=== PATIENT | female | born 1965 | race Caucasian/White ===

== ENCOUNTER 2020-08-26 16:40 | Emergency (ER) | payer BC, OTHER ==
[2020-08-26 17:30] LABS: Absolute Lymphocytes (CBC) 1.8 K/uL (0.7-4.9); Basophils % 0.8 % (0-1.3); Hematocrit 40.5 % (36.0-45.0); Lymphocytes % 38.2 % (15.3-44.8); RBC Red Blood Cell Count 4.45 M/uL (3.86-4.86)
[2020-08-26 17:47] LABS: Albumin 4.1 g/dL (3.4-5.0); Bilirubin Direct 0.2 mg/dL (0-0.2); Bilirubin Total 0.7 mg/dL (0.2-1.0); Potassium 3.9 mmol/L (3.5-5.1); Protein, Total 8.2 g/dL (6.4-8.2)
[2020-08-26 17:58] LABS: Urine Blood NEGATIVE (NEG); Urine Glucose NEGATIVE (NEG); Urine Protein NEGATIVE (NEG); Urine pH 6.5 (5.0-7.0)
[2020-08-26] MEDS ORDERED: MEPERIDINE HCL 50 MG/ML ONE (18:28)
--- NOTE | 2020-08-26 18:41 | RAD REPORT ---
EXAM DESCRIPTION: CT - Stone Protocol - 08/26/2020 6:14 pm CLINICAL HISTORY: left flank pain COMPARISON: No comparisons TECHNIQUE: Axial 3 mm thick images were obtained without oral or IV contrast. The [id number] span s the entirety of the system including uppermost abdomen and lung bases. All CT scans are performed using dose optimization technique as appropriate and may include automated exposure control or mA/KV adjustment according to patient size. FINDINGS: No hydronephrosis is present and no obstructing ureteral calculi. No suspicious renal mass es. Isodense masses and pyelonephritis are not excluded on a stone protocol CT scan. No significant a drenal finding. No urinary bladder suspicious finding. Uterus and ovaries show no suspicious findings . Imaged portions of the liver, spleen and pancreas show no suspicious findings on non-contrast imaging . No gallbladder or biliary tree abnormality identified. No suspicious bowel findings. Appendix is normal. No acute bowel finding. No mass or bulky lymphadenopathy. Trans flap abdominal wall postsurgical changes are noted. There is laxity in each lower quadrant. No abdominal wall defect confirmed. No free air, free fluid or inflamm atory stranding. Disc and bone degenerative changes are present. No acute vascular finding suspected. IMPRESSION: No hydronephrosis, obstructing calculus or acute finding. Isodense masses and pyelonephritis are not excluded on stone protocol technique. No acute GI process identified. No acute ELECTRONIC ORGAN MECHANIC finding. Disc and bone degenerative changes are present relatively mild. No acute bone or disc finding suspect ed.
--- NOTE | 2020-08-26 18:48 | ER ---
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 Coronavirus screen: At this time, the client does not indicate any symptoms associated with coronavirus-19. The client reports previous COVID testing was negative. Date of collection: August 25, 2020. Initial Sepsis Screen: Does the patient meet any 2 criteria? No. Patient's initial sepsis screen is negative. Does the patient have a suspected source of infection? No. Patient's initial sepsis screen is negative. Risk Assessment: Do you want to hurt yourself or someone else? Patient reports no desire to harm self or others. 17:02 Method Of Arrival: Ambulatory iw 17:02 Acuity: JOSHUA 3 iw 17:05 Ebola Screen: No symptoms or risks identified at this time. Onset of symptoms is bp unknown. Triage Assessment: 17:10 General: Appears in no apparent distress. uncomfortable, Behavior is cooperative, bp appropriate for age, anxious. Pain: Complains of pain in left mid back. EENT: No deficits noted. Neuro: No deficits noted. Cardiovascular: No deficits noted. Respiratory: No deficits noted. GI: No signs and/or symptoms were reported involving the gastrointestinal system. : Reports pain in left flank(s). Derm: No deficits noted. Musculoskeletal: No deficits noted. Historical: - PMHx: 17:39 Cancer; bp - Immunization history:: Adult Immunizations unknown. - Social history:: Smoking status: Patient denies any tobacco usage or history of. - Family history:: not pertinent. - Hospitalizations: : No recent hospitalization is reported. Screenin:10 Abuse screen: Denies threats or abuse. Denies injuries from another. Nutritional bp screening: No deficits noted. Tuberculosis screening: No symptoms or risk factors identified. Fall Risk None identified. Assessment: 17:10 General: SEE TRIAGE NOTE. bp 17:10 Reassessment: No changes from previously documented assessment. Patient is alert, bp oriented x 3, equal unlabored respirations, skin warm/dry/pink. 18:21 Reassessment: Patient appears in no apparent distress at this time. No changes from bp previously documented assessment. PT RETURNED FROM CT. 18:57 Reassessment: PT D/C HOME AMBULATORY, DX WITH UNSPECIFIED ABDOMINAL PAIN. bp Vital Signs: 17:02 BP 152 / 77; Pulse 78; Resp 16; Temp 97.9; Pulse Ox 100% on R/A; Weight 70.31 kg; iw Height 5 ft. 2 in. (157.48 cm); Pain 10/10; 18:21 BP 142 / 88; Pulse 71; Resp 16; Pulse Ox 99% ; bp 18:57 BP 133 / 81; Pulse 82; Resp 16; Temp 98; Pulse Ox 99% ; bp 17:02 Body Mass Index 28.35 (70.31 kg, 157.48 cm) iw ED Course: 16:42 Patient arrived in ED. as 16:56 Inocencio Aguirre MD is Attending Physician. rn 17:05 Ramsey Younger, VITOR is Primary Nurse. bp 17:07 Triage completed. iw 17:07 Arm band placed on. iw 17:10 Patient has correct armband on for positive identification. Bed in low position. Call bp light in reach. Side rails up X2. 17:10 Inserted saline lock: 22 gauge in left antecubital area, using aseptic technique. Blood bp collected. 18:15 CT Stone Protocol In Process Unspecified. EDMS 18:57 No provider procedures requiring assistance completed. IV discontinued, intact, bp bleeding controlled, No redness/swelling at site. Pressure dressing applied. Administered Medications: 18:20 Drug: Demerol 25 mg Route: IVP; Site: left antecubital; bp 18:59 Follow up: Response: Pain is decreased bp Outcome: 18:47 Discharge ordered by . rn 18:57 Discharged to home ambulatory. bp 18:57 Condition: stable 18:57 Discharge instructions given to patient, Instructed on discharge instructions, follow up and referral plans. Demonstrated understanding of instructions, follow-up care. 19:00 Patient left the ED. bp Signatures: Dispatcher [employer] EDMS Paola Franklin Irene RN RN iw Inocencio Aguirre MD MD rn Peltier, Brian, RN RN bp
--- NOTE | 2020-08-26 18:48 | EDPHYS ---
Physician Documentation [facility] Name: Arlene Lane Age: 54 yrs Sex: Female : 1965 Arrival Date: 08/26/2020 Time: 16:42 Bed 6 Private MD: ED Physician Inocencio Aguirre HPI: 08/26 17:12 This 54 yrs old Female presents to ER via Ambulatory with complaints of Flank rn Pain. 17:12 This 54 yrs old Female presents to ER via Ambulatory with complaints of Flank rn Pain. 17:12 The patient complains of pain in the left mid back. Onset: The symptoms/episode rn began/occurred this morning. Modifying factors: The symptoms are alleviated by nothing. the symptoms are aggravated by nothing. Severity of pain: At its worst the pain was moderate in the emergency department the pain is unchanged. The patient has not experienced similar symptoms in the past. Reports left flank and abd pain assoc with diarrhea, recently treated for UTI, finished abx, began today after going to gym and mowing yard. No fever. No direct trauma. Does not feel like it is muscular. . Historical: - PMHx: 17:39 Cancer; bp - Immunization history:: Adult Immunizations unknown. - Social history:: Smoking status: Patient denies any tobacco usage or history of. - Family history:: not pertinent. - Hospitalizations: : No recent hospitalization is reported. ROS: 17:12 Constitutional: Negative for fever, chills, and weight loss, Cardiovascular: Negative rn for chest pain, palpitations, and edema, Respiratory: Negative for shortness of breath, cough, wheezing, and pleuritic chest pain, Abdomen/GI: + left abd and flank pain Back: Negative for injury : Negative for injury, bleeding, discharge, and swelling, MS/Extremity: Negative for injury and deformity, Skin: Negative for injury, rash, and discoloration, Neuro: Negative for headache, weakness, numbness, tingling, and seizure. Exam: 17:12 Constitutional: This is a well developed, well nourished patient who is awake, alert, rn and in no acute distress. Ambulatory to room without difficulty. Head/Face: Normocephalic, atraumatic. Cardiovascular: Regular rate and rhythm. No pulse deficits. Respiratory: Speaking full sentences. No increased work of breathing, no retractions or nasal flaring. Abdomen/GI: soft, non-tender, no masses, non-distended Skin: Warm, dry MS/ Extremity: Pulses equal, no cyanosis. Neurovascular intact. Full, normal range of motion. Equal circumference. Neuro: Awake and alert, GCS 15, oriented to person, place, time, and situation. Cranial nerves II-XII grossly intact. Motor strength 5/5 in all extremities. Sensory grossly intact. Cerebellar exam normal. Normal gait. Vital Signs: 17:02 BP 152 / 77; Pulse 78; Resp 16; Temp 97.9; Pulse Ox 100% on R/A; Weight 70.31 kg; iw Height 5 ft. 2 in. (157.48 cm); Pain 10/10; 18:21 BP 142 / 88; Pulse 71; Resp 16; Pulse Ox 99% ; bp 18:57 BP 133 / 81; Pulse 82; Resp 16; Temp 98; Pulse Ox 99% ; bp 17:02 Body Mass Index 28.35 (70.31 kg, 157.48 cm) iw MDM: 16:56 Patient medically screened. rn 18:45 Differential diagnosis: nephrolithiasis, pyelonephritis, UTI, kidney stone, muscular rn pain, constipation. Data reviewed: vital signs, nurses notes, lab test result(s), radiologic studies, CT scan, and as a result, I will discharge patient. Counseling: I had a detailed discussion with the patient and/or guardian regarding: the historical points, exam findings, and any diagnostic results supporting the discharge/admit diagnosis, lab results, radiology results, the need for outpatient follow up, to return to the emergency department if symptoms worsen or persist or if there are any questions or concerns that arise at home. Response to treatment: the patient's symptoms have mildly improved after treatment, and as a result, I will discharge patient. Special discussion: Based on the patient's Hx, exam, and Dx evaluation, there is no indication for emergent surgery or inpatient Tx. It is understood by the patient/guardian that if the Sx's persist or worsen they need to return immediately for re-evaluation. I discussed with the patient/guardian in detail that at this point there is no indication for admission to the hospital. It is understood, however, that if the symptoms persist or worsen the patient needs to return immediately for re-evaluation. ED course: No acute findings in ct abdomen/blood/UA. Will dc home with return precautions. . 08/26 17:11 Order name: Urine Dipstick--Ancillary (enter results); Complete Time: 18:01 eb 08/26 17:12 Order name: Basic Metabolic Panel; Complete Time: 18:01 rn 08/26 17:12 Order name: CBC with Diff; Complete Time: 17:46 rn 08/26 17:12 Order name: Hepatic Function; Complete Time: 18:01 rn 08/26 17:12 Order name: Lipase; Complete Time: 18:01 rn 08/26 17:12 Order name: CT Stone Protocol; Complete Time: 18:43 rn 08/26 17:12 Order name: IV Saline Lock; Complete Time: 17:36 rn 08/26 17:12 Order name: Labs collected and sent; Complete Time: 17:36 rn Administered Medications: 18:20 Drug: Demerol 25 mg Route: IVP; Site: left antecubital; bp 18:59 Follow up: Response: Pain is decreased bp Disposition: 08/26/20 18:47 Discharged to Home. Impression: Unspecified abdominal pain. - Condition is Stable. - Discharge Instructions: Abdominal Pain, Adult, Pain Without a Known Cause. - Medication Reconciliation Form, Thank You Letter, Antibiotic Education, Prescription Opioid Use form. - Follow up: Private Physician; When: As needed; Reason: Recheck today's complaints, Re-evaluation by your physician. - Problem is new. - Symptoms have improved. Signatures: Dispatcher [employer] EDMS Inocencio Aguirre MD MD rn Peltier, Brian, RN RN bp Corrections: (The following items were deleted from the chart) 18:46 17:12 Constitutional: This is a well developed, well nourished patient who is awake, rn alert, and in no acute distress. Ambulatory to room without difficulty. Head/Face: Normocephalic, atraumatic. Cardiovascular: Regular rate and rhythm. No pulse deficits. Respiratory: Speaking full sentences. No increased work of breathing, no retractions or nasal flaring. Abdomen/GI: soft, non-tender, no masses, non-distended Skin: Warm, dry MS/ Extremity: Pulses equal, no cyanosis. Neurovascular intact. Full, normal range of motion. Equal circumference. Neuro: Awake and alert, GCS 15, oriented to person, place, time, and situation. Cranial nerves II-XII grossly intact. Motor strength 5/5 in all extremities. Sensory grossly intact. Cerebellar exam normal. Normal gait. rn 19:00 18:47 08/26/2020 18:47 Discharged to Home. Impression: Unspecified abdominal pain. bp Condition is Stable. Forms are Medication Reconciliation Form, Thank You Letter, Antibiotic Education, Prescription Opioid Use. Follow up: Private Physician; When: As needed; Reason: Recheck today's complaints, Re-evaluation by your physician. Problem is new. Symptoms have improved. rn
[2020-08-26 19:08] VITALS: O2SAT 99
[2020-08-26 19:09] VITALS: BP 133/81; TEMP 98
== END 2020-08-26 19:00 | disposition home or self-care (01) ==
LOC: ER 16:40
DX: R10.9 Unspecified abdominal pain (principal); Z85.9 Personal history of malignant neoplasm, unspecified
CPT/HCPCS: 85025; 80048; 36415; 80076; 81003; 83690; 76377; 74176; 96374; 99284; J2175

== ENCOUNTER 2021-08-02 11:31 | Observation (INO) | payer OTHER ==
[2021-08-02 12:09] LABS: Absolute Lymphocytes (CBC) 1.7 K/uL (0.7-4.9); Basophils % 0.6 % (0-1.3); Hematocrit 39.2 % (36.0-45.0); Lymphocytes % 45.2 % (15.3-44.8); MPV 7.2 fL (7.6-11.3); RBC Red Blood Cell Count 4.23 M/uL (3.86-4.86)
[2021-08-02 12:34] LABS: ALT/SGPT 31 U/L (12-78); AST/SGOT 25 U/L (15-37); Albumin 4.3 g/dL (3.4-5.0); Alkaline Phosphatase 93 U/L (45-117); BUN Blood Urea Nitrogen 12 mg/dL (7-18); Bicarbonate 28 mmol/L (21-32); Bilirubin Direct 0.1 mg/dL (0-0.2); Bilirubin Total 0.7 mg/dL (0.2-1.0); Glucose Level 97 mg/dL (74-106); Magnesium 2.1 mg/dL (1.8-2.4); NT PRO-BNP 24 pg/mL (<125); Potassium 4.2 mmol/L (3.5-5.1); Protein, Total 8.3 g/dL (6.4-8.2); Sodium Level 140 mmol/L (136-145); Troponin (Emerg Dept Use Only) < 0.02 ng/mL (0.0-0.045)
[2021-08-02] MEDS ORDERED: ONDANSETRON 4 MG/2 ML VIAL ONE (12:46)
[2021-08-02] MEDS ORDERED: ASPIRIN 81 MG CHEWABLE TABLET ONE (12:46)
--- NOTE | 2021-08-02 12:51 | ER ---
Nurse's Notes [facility] Name: Arlene Lane Age: 55 yrs Sex: Female : 1965 Arrival Date: 08/02/2021 Time: 11:32 Bed 15 Private MD: Diagnosis: Chest pain, unspecified Presentation: 08/02 11:34 Chief complaint: Patient states: "I am having chest pain and my BP was high.". jd3 Coronavirus screen: At this time, the client does not indicate any symptoms associated with coronavirus-19. Ebola Screen: Patient negative for fever greater than or equal to 101.5 degrees Fahrenheit, and additional compatible Ebola Virus Disease symptoms. Initial Sepsis Screen: Does the patient meet any 2 criteria? No. Patient's initial sepsis screen is negative. Does the patient have a suspected source of infection? No. Patient's initial sepsis screen is negative. Risk Assessment: Do you want to hurt yourself or someone else? Patient reports no desire to harm self or others. Onset of symptoms was August 02, 2021. 11:34 Method Of Arrival: Wheelchair jd3 11:34 Acuity: JOSHUA 3 jd3 Historical: - Allergies: 11:35 No Known Allergies; jd3 - Home Meds: 11:35 [place] Thyroid Oral [Active]; Xanax Oral [Active]; jd3 - PMHx: 11:35 Cancer; jd3 - PSHx: 11:35 FRANCY mesectomy; jd3 - Immunization history:: Adult Immunizations Client reports receiving the 2nd dose of the Covid vaccine, Date received: December 13, 2020. - Social history:: Smoking status: Patient denies any tobacco usage or history of. Screenin:47 Abuse screen: Denies threats or abuse. Denies injuries from another. Nutritional aj2 screening: No deficits noted. Tuberculosis screening: No symptoms or risk factors identified. Fall Risk None identified. Assessment: 12:47 Reassessment: Patient appears in no apparent distress at this time. Patient and/or aj2 family updated on plan of care and expected duration. Pain level reassessed. Patient is alert, oriented x 3, equal unlabored respirations, skin warm/dry/pink. 12:47 Pain: Complains of pain in anterior aspect of right upper chest Pain radiates to right aj2 jaw Pain began 1 week ago. Cardiovascular: Rhythm is sinus rhythm. Vital Signs: 11:36 BP 158 / 84; Pulse 89; Resp 17 S; Temp 98.6(TE); Pulse Ox 100% on R/A; Weight 68.04 kg jd3 (R); Height 5 ft. 2 in. (157.48 cm) (R); Pain 9/10; 12:47 BP 137 / 83; Pulse 82; Resp 16; Temp 98.6; Pulse Ox 100% ; aj2 11:36 Body Mass Index 27.44 (68.04 kg, 157.48 cm) jd3 ED Course: 11:32 Patient arrived in ED. as 11:35 Triage completed. jd3 11:36 Arm band placed on. jd3 11:52 Sierra [facility] kb 11:52 Tong Galicia MD is Attending Physician. kb 12:00 Initial lab(s) drawn, by me, sent to lab. Inserted saline lock: 20 gauge in left kj1 antecubital area, using aseptic technique. Blood collected. 12:19 Aaron Mayo is Primary Nurse. aj2 12:47 No apparent distress. Resting quietly. Texting on cell phone. aj2 12:47 Patient has correct armband on for positive identification. sports physician on. Pulse aj2 ox on. NIBP on. 12:47 No provider procedures requiring assistance completed. IV is patent, is intact. Patient aj2 maintains SpO2 saturation greater than 95% on room air. 12:50 Courtney Merritt MD is Hospitalizing Provider. kb 13:01 XRAY Chest (1 view) In Process Unspecified. EDMS 13:25 COVID-19 : Document "Date of Symptom Onset" if Symptomatic. Sent. aj2 Administered Medications: 12:27 Drug: Aspirin Chewable Tablet 324 mg Route: PO; kg 12:27 Drug: Zofran (Ondansetron) 4 mg Route: IVP; Site: left antecubital; kg 13:25 Drug: morphine 4 mg Route: IVP; Site: left antecubital; aj2 Outcome: 12:50 Decision to Hospitalize by Provider. kb 21:26 Patient left the ED. jb4 Signatures: Dispatcher [employer] EDMS Sierra Weber FNP-C FNP-Ckb Martinez, Amelia as Bryson, James RN RN jb4 Abhi Lau RN RN jd3 Tuyet Weber kj1 Jasmin Wilder, RN RN kg Aaron Mayo
--- NOTE | 2021-08-02 12:51 | EDPHYS ---
Physician Documentation [facility] Name: Arlene Lane Age: 55 yrs Sex: Female : 1965 Arrival Date: 08/02/2021 Time: 11:32 Bed 15 Private MD: ED Physician Tong Galicia HPI: 08/02 12:51 This 55 yrs old Female presents to ER via Wheelchair with complaints of Chest kb Pain, High Blood Pressure. 12:51 The patient or guardian reports chest pain that is located primarily in the substernal kb area. Onset: 4 day(s) ago. The pain does not radiate. Associated signs and symptoms: Pertinent positives: nausea. The chest pain is described as aching. Duration: The patient or guardian reports a single episode. Modifying factors: The symptoms are alleviated by nothing. the symptoms are aggravated by nothing. Severity of pain: At its worst the pain was moderate in the emergency department the pain is unchanged. The patient has not experienced similar symptoms in the past. The patient has not recently seen a physician. Pt reports she noticed some chest pain on Friday and Friday. Today pain became severe while at work. States she checked her BP and it was 202/180. . Historical: - Allergies: 11:35 No Known Allergies; jd3 - Home Meds: 11:35 [place] Thyroid Oral [Active]; Xanax Oral [Active]; jd3 - PMHx: 11:35 Cancer; jd3 - PSHx: 11:35 FRANCY mesectomy; jd3 - Immunization history:: Adult Immunizations Client reports receiving the 2nd dose of the Covid vaccine, Date received: December 13, 2020. - Social history:: Smoking status: Patient denies any tobacco usage or history of. ROS: 12:50 Constitutional: Negative for fever, chills, and weight loss. kb 12:50 Cardiovascular: Positive for chest pain, Negative for edema, orthopnea, palpitations, paroxysmal nocturnal dyspnea. 12:50 All other systems are negative. 12:51 Abdomen/GI: Positive for nausea. kb Exam: 12:00 Constitutional: This is a well developed, well nourished patient who is awake, alert, kb and in no acute distress. Head/Face: Normocephalic, atraumatic. ENT: Moist Mucous membranes Cardiovascular: Regular rate and rhythm with a normal S1 and S2. No gallops, murmurs, or rubs. No pulse deficits. Respiratory: Respirations even and unlabored. No increased work of breathing, no retractions or nasal flaring. Skin: Warm, dry with normal turgor. Normal color. MS/ Extremity: Pulses equal, no cyanosis. Neurovascular intact. Full, normal range of motion. Neuro: Awake and alert, GCS 15, oriented to person, place, time, and situation. Moves all extremities. Normal gait. Psych: Awake, alert, with orientation to person, place and time. Behavior, mood, and affect are within normal limits. 12:00 ECG was reviewed by the Attending Physician. Vital Signs: 11:36 BP 158 / 84; Pulse 89; Resp 17 S; Temp 98.6(TE); Pulse Ox 100% on R/A; Weight 68.04 kg jd3 (R); Height 5 ft. 2 in. (157.48 cm) (R); Pain 9/10; 12:47 BP 137 / 83; Pulse 82; Resp 16; Temp 98.6; Pulse Ox 100% ; aj2 11:36 Body Mass Index 27.44 (68.04 kg, 157.48 cm) jd3 MDM: 11:52 Patient medically screened. kb 12:00 Data reviewed: vital signs, nurses notes. Data interpreted: Pulse oximetry: on room air kb is 100 %. Interpretation: normal. 12:49 Counseling: I had a detailed discussion with the patient and/or guardian regarding: the kb historical points, exam findings, and any diagnostic results supporting the discharge/admit diagnosis, lab results, radiology results, the need for further work-up and treatment in the hospital. Physician consultation: Luis Armando Shields was contacted at 12:50, regarding admission, to the telemetry unit. patient's condition, and will see patient in ED, shortly. 08/02 11:41 Order name: Basic Metabolic Panel; Complete Time: 12:37 kb 08/02 11:41 Order name: CBC with Diff; Complete Time: 12:31 kb 08/02 11:41 Order name: LFT's; Complete Time: 12:37 kb 08/02 11:41 Order name: Magnesium; Complete Time: 12:37 kb 08/02 11:41 Order name: NT PRO-BNP; Complete Time: 12:37 kb 08/02 11:41 Order name: PT-INR; Complete Time: 12:31 kb 08/02 11:41 Order name: Troponin (emerg Dept Use Only); Complete Time: 12:37 kb 08/02 11:41 Order name: XRAY Chest (1 view); Complete Time: 13:23 kb 08/02 12:59 Order name: COVID-19 : Document "Date of Symptom Onset" if Symptomatic. kb 08/02 15:32 Order name: SARS-COV-2 RT PCR; Complete Time: 15:42 EDMS 08/02 15:56 Order name: T4 Free; Complete Time: 16:47 EDMS 08/02 15:56 Order name: Thyroid Stimulating Hormone; Complete Time: 16:47 EDMS 08/02 19:13 Order name: Troponin I EDKS 08/02 11:41 Order name: EKG; Complete Time: 11:42 kb 08/02 11:41 Order name: Cardiac monitoring; Complete Time: 12:04 kb 08/02 11:41 Order name: EKG - Nurse/Tech; Complete Time: 12:04 kb 08/02 11:41 Order name: IV Saline Lock; Complete Time: 12:04 kb 08/02 11:41 Order name: Labs collected and sent; Complete Time: 12:04 kb 08/02 11:41 Order name: O2 Per Protocol; Complete Time: 12:05 kb 08/02 11:41 Order name: O2 Sat Monitoring; Complete Time: 12:05 kb EC:00 Rate is 79 beats/min. Rhythm is regular. QRS Viola is Normal. IL interval is normal at kb 164 msec. QRS interval is normal at 80 msec. QT interval is normal at 392 msec. Administered Medications: 12:27 Drug: Aspirin Chewable Tablet 324 mg Route: PO; kg 12:27 Drug: Zofran (Ondansetron) 4 mg Route: IVP; Site: left antecubital; kg 13:25 Drug: morphine 4 mg Route: IVP; Site: left antecubital; aj2 Disposition: 08/03 07:13 Co-signature as Attending Physician, Tong Galicia MD I agree with the assessment and kdr plan of care. Disposition Summary: 08/02/21 12:50 Hospitalization Ordered Hospitalization Status: Observation kb Provider: Courtney Merritt Condition: Stable kb Problem: new kb Symptoms: are unchanged kb Bed/Room Type: Standard kb Location: Telemetry/MedSurg (observation)(08/02/21 20:52) tl1 Room Assignment: 211(08/02/21 20:52) tl1 Diagnosis - Chest pain, unspecified kb Forms: - Medication Reconciliation Form kb - SBAR form kb Signatures: Dispatcher [employer] EDSierra Powell, SUSANNAH-C GAMING HOST-Tong Jackson MD MD kdr Williams, Irene, RN RN iw Vanessa Sandoval RN RN tl1 Abhi Lau RN RN Jasmin Hassan RN RN Aaron Nguyễn 2 Corrections: (The following items were deleted from the chart) 08/02 14:06 12:50 Telemetry/MedSurg (observation) kb iw 14:06 12:50 kb iw 20:52 14:06 [facility] ER HOLD iw tl1 20:52 14:06 ERHOLD- iw tl1
--- NOTE | 2021-08-02 13:21 | RAD REPORT ---
EXAM DESCRIPTION: RAD - Chest Single View - 08/02/2021 1:01 pm CLINICAL HISTORY: CHEST PAIN Chest pain. COMPARISON: CHEST SINGLE VIEW dated 12/17/2013; CHEST SINGLE VIEW dated 08/02/2013; CHEST SINGLE VIEW d ated 10/08/2009 FINDINGS: Portable technique limits examination quality. The lungs are grossly clear. The heart is normal in size. No displaced fractures. IMPRESSION: No acute intrathoracic process suspected.
[2021-08-02] MEDS ORDERED: MORPHINE 4 MG/ML SYR ONE (13:54)
--- NOTE | 2021-08-02 13:58 | P.HP ---
Certification for Inpatient Patient admitted to: Inpatient With expected LOS: <2 Midnights Patient will require the following post-hospital care: None Practitioner: I am a practitioner with admitting privileges, knowledge of patient current condition, hospital course, and medical plan of care. Services: Services provided to patient in accordance with Admission requirements found in Title 42 Section 412.3 of the Code of Federal Regulations Patient History Date of Service: 08/02/21 Primary Care Provider: Dr. Tan Reason for admission: Hypertension and atypical Chest Pain History of Present Illness: EXAM DESCRIPTION: RAD - Chest Single View - 08/02/2021 1:01 pm CLINICAL HISTORY: CHEST PAIN Chest pain. COMPARISON: CHEST SINGLE VIEW dated 12/17/2013; CHEST SINGLE VIEW dated 08/02/2013; CHEST SINGLE VIEW dated 10/08/2009 FINDINGS: Portable technique limits examination quality. The lungs are grossly clear. The heart is normal in size. No displaced fractures. IMPRESSION: No acute intrathoracic process suspected. Is a 55-year-old female. She is cancer in 2012 with a bilateral mastectomy. And she was diagnosed with Covid earlier this month. She currently test negative. The patient had noticed some chest pain over the last 3 days which was sharp in nature lasting less than 2 minutes. She had 2-3 episodes per day for 3 days. Today she was at work when she noticed that she was having some pain in her chest that seem to be a little bit more severe. She checks her blood pressure twice at the facility that she works at the first time was 202/182 the second time it was 198/132. Because of the high blood pressure and the increasing chest pain she came to the emergency room. On arrival her vital signs have improved markedly and her chest pain has diminished. The chest pain is located in her right upper chest. The area of discomfort seems to be larger today than it was the last couple of days. The pain is unchanged by movement however it is exacerbated by palpation. Her labs are unremarkable her troponin and BNP are both negative, her EKG shows sinus rhythm. Home medications list reviewed: No - Past Medical/Surgical History Diabetic: No -: Breast cancer -: Hypothyroidism -: Anxiety/Insomnia -: Bilateral Mastectomy Psychosocial/ Personal History: Employed, lives at home with - Family History Father -: Heart disease Mother -: Heart disease Sister -: Hypertension - Social History Smoking Status: Never smoker Alcohol use: Yes CD- Drugs: No Caffeine use: Yes Place of Residence: Home Review of Systems General: Unremarkable Eyes: Unremarkable ENT: Unremarkable Respiratory: Unremarkable Cardiovascular: Chest Pain Gastrointestinal: Constipation Genitourinary: Unremarkable Musculoskeletal: Unremarkable Integumentary: Unremarkable Neurological: Unremarkable Lymphatics: Unremarkable Physical Examination - Physical Exam General: Alert, In no apparent distress, Oriented x3, Cooperative HEENT: Atraumatic, Normocephalic, PERRLA Neck: Supple Respiratory: Clear to auscultation bilaterally, Normal air movement Cardiovascular: Normal pulses, Regular rate/rhythm, Normal S1 S2 Capillary refill: <2 Seconds Gastrointestinal: Soft and benign, Non-distended, No tenderness Musculoskeletal: No clubbing, No swelling, No contractures, No erythema Integumentary: No rashes, No breakdown, No significant lesion, No tenderness/swelling Neurological: Normal speech, Normal strength at 5/5 x4 extr, Normal tone External genitalia: Deferred Rectal: Deferred - Studies Laboratory Data (last 24 hrs) 08/02/21 12:00: PT 11.5, INR 1.00 08/02/21 12:00: WBC 3.80 L, Hgb 13.3, Hct 39.2, Plt Count 262 08/02/21 12:00: Sodium 140, Potassium 4.2, BUN 12, Creatinine 0.58, Glucose 97, Magnesium 2.1, Total Bilirubin 0.7, AST 25, ALT 31, Alkaline Phosphatase 93 Assessment and Plan - Plan Assessment: Atypical Chest Pain Transient hypertension HypoThyroidism Constipation Insomnia Plan: Atypical Chest Pain: Trend Troponins, Cardiology consult, O2 prn, Mathias 7.5 prn for pain, Repeat EKG in AM. Transient hypertension: Monitor, hydralizine for increased pressure prn. HypoThyroidism: TSH, T4, [place] Thyroid 120mg Constipation: Stool [place] Insomnia: Xanax 0.25 QHS prn DVT PPx: Lovenox 40mg SQ CODE STATUS: Full Code Discharge Plan: Home Plan to discharge in: 48 Hours - Advance Directives Does patient have a Living Will: No Does patient have a Durable POA for Healthcare: No - Code Status/Comfort Care Code Status Assessed: Yes Code Status: Full Code Critical Care: No Time Spent Managing Pts Care (In Minutes): 55
[2021-08-02] MEDS ORDERED: HYDROCODONE/APAP 7.5/325 MG TAB PO PRN (14:17)
[2021-08-02] MEDS ORDERED: HYDRALAZINE HCL 20 MG/ML VIAL IV PRN (14:17)
[2021-08-02] MEDS ORDERED: ACETAMINOPHEN 500 MG TAB PO PRN (14:17)
[2021-08-02] MEDS ORDERED: DOCUSATE NA/SENNA CONC 1 TAB PO PRN (14:17)
[2021-08-02] MEDS ORDERED: ONDANSETRON 4 MG/2 ML VIAL IV PRN (14:17)
[2021-08-02] MEDS ORDERED: ALPRAZOLAM 0.25 MG TABLET PO PRN (14:17)
[2021-08-02] MEDS: ENOXAPARIN 40 MG/0.4 ML SQ SCH (15:00)
[2021-08-02 15:56] LABS: Thyroid Stimulating Hormone 0.235 uIU/mL (0.360-3.740)
[2021-08-02] MEDS ORDERED: ENOXAPARIN 40 MG/0.4 ML SQ ONE (16:59)
--- NOTE | 2021-08-02 17:59 | CON ---
Date of Consultation: 08/02/2021 Reason For Consultation: Chest pain. History Of Present Illness: This is a 55-year-old female, who has been having chest pain, sharp, sta bbing like, does not radiate, short-lived, and not related to exertion. When it first happened, she went to the gym after that and did elliptical training for 10 minutes and did some cardio workout and did not have any chest pain, but at rest at the office, she had significant chest pain. They matty t her into the emergency room. She feels well now and chest-pain free. Past Medical History: Breast cancer, hypothyroidism, anxiety. Medications: Refer to reconciliation sheet for detailed list. Allergies: NO KNOWN DRUG ALLERGIES. Past Surgical History: Mastectomy. Family History: No premature coronary artery disease or cancer. Social History: She does not smoke or drink. Does not use any drugs. Review of Systems: All systems reviewed and they were negative except what mentioned in the HPI. Physical Examination: Vital Signs: Temperature was 98.6, pulse 81, breathing at 16, blood pressure 116/74. General: Pleasant middle-aged female, in no apparent distress. Head and Neck: Pupils are equal, reactive to light. Intact eye movements. No JVD. No cervical lym phadenopathy. Neck: Supple. Thyroid is not enlarged. Lungs: Clear to auscultation bilaterally. No rhonchi, rales, or crackles. No accessory muscle use. Heart: Regular rate and rhythm. No extra sounds. Abdomen: Soft, nontender. Bowel sounds positive. No organomegaly. No masses or hernia. No rigidi ty or rebound. Extremities: No edema, clubbing, or cyanosis. Intact pulses. Skin: No rash noted. Neurologic: Alert, awake, oriented x3. No acute focal deficits appreciated. Investigations: First troponin is negative. Creatinine 0.58. Hemoglobin 13.3. EKG without acute s pecific abnormalities. Assessment And Recommendations: Chest pain. It is atypical. No significant EKG abnormalities. Fir st troponin is negative. If she has a second set that is negative, the patient can be released and f ollow up as an outpatient for exercise stress test and an echo. The patient was started on baby aspi rin 81 mg. Thank you for the consult. /IZZY Voice ID: [id number] Report ID: [id number]
[2021-08-02] MEDS ORDERED: HYDROCODONE/APAP 7.5/325 MG TAB ONE (21:35)
[2021-08-02] MEDS ORDERED: ALPRAZOLAM 0.25 MG TABLET ONE (21:35)
[2021-08-02 21:49] VITALS: BMI 27.4
[2021-08-03 05:45] LABS: Absolute Lymphocytes (CBC) 1.9 K/uL (0.7-4.9); Basophils % 0.6 % (0-1.3); Hematocrit 37.9 % (36.0-45.0); Lymphocytes % 42.3 % (15.3-44.8); MPV 7.5 fL (7.6-11.3); RBC Red Blood Cell Count 4.12 M/uL (3.86-4.86)
[2021-08-03 05:56] LABS: Albumin 3.6 g/dL (3.4-5.0); Bilirubin Total 0.5 mg/dL (0.2-1.0); Potassium 3.8 mmol/L (3.5-5.1); Protein, Total 7.2 g/dL (6.4-8.2)
[2021-08-03] MEDS ORDERED: THYROID 30 MG TAB PO SCH (06:00)
[2021-08-03] MEDS: ENOXAPARIN 40 MG/0.4 ML SQ SCH (08:08)
[2021-08-03 11:54] VITALS: O2SAT 98
[2021-08-03 12:25] VITALS: BP 137/72; TEMP 96.9
--- NOTE | 2021-08-03 15:44 | PN ---
Date of Progress Note: 08/03/2021 Subjective: Seen by bedside. She feels better. No active chest pain. Review of Systems: No active chest pain, shortness of breath, orthopnea, cough. No nausea, vomiting, diarrhea. No abdo joe pain. No dysuria, polyuria, and urinary urgency. All other systems reviewed and negative Objective: Vital Signs: Temperature is 96.9, pulse 77, breathing at 18, blood pressure is 137/72, s atting 98%. General: Pleasant middle-aged female, in no apparent distress. Head and Neck: Pupils are equal, reactive to light. Intact eye movements. No JVD. No cervical lym phadenopathy. Neck: Supple. Thyroid is not enlarged. Lungs: Clear to auscultation bilaterally. No rhonchi, rales, or crackles. No accessory muscle use. Heart: Regular rate and rhythm. No extra sounds. Abdomen: Soft, nontender. Bowel sounds positive. No organomegaly. No masses or hernia. No rigidi ty or rebound. Extremities: No edema, clubbing, or cyanosis. Intact pulses. Skin: No rash noted. Neurologic: Alert, awake, oriented x3. No acute focal deficits appreciated. Investigations: Troponin x2 were negative. Third set is pending. Assessment And Recommendations: Chest pain, atypical. Negative cardiac enzymes. The patient can be released from my standpoint and follow up with me in the office early next week to arrange for exercise stress test and an echo. /MODL Voice ID: [id number] Report ID: [id number]
== END 2021-08-03 14:30 | disposition home or self-care (01) ==
LOC: ER 11:31 → ERHOLD 13:28 → INTOOBSV 13:28 → 2ND 21:15
PROVIDERS: ADMIT Hospitalist; ATTEND Hospitalist
DX: R07.89 Other chest pain (principal); R03.0 Elevated blood-pressure reading, without diagnosis of hypertension; E03.9 Hypothyroidism, unspecified; G47.00 Insomnia, unspecified; K59.00 Constipation, unspecified; F41.9 Anxiety disorder, unspecified; Z20.822 Contact with and (suspected) exposure to COVID-19; Z86.16 Personal history of COVID-19; Z85.3 Personal history of malignant neoplasm of breast; Z90.13 Acquired absence of bilateral breasts and nipples; Z82.49 Family history of ischemic heart disease and other diseases of the circulatory system
CPT/HCPCS: 93005; 85025 ×2; 80048; 36415; 83735; 85610; 80061; 80076; 84443; 84484 ×2; 84439; 80053; 83880; 71045; 96375; 96374; 99285; U0003; J1650 ×2; J2405; G0378

== ENCOUNTER 2023-09-04 02:09 | Inpatient (IN) | payer BC ==
--- OUTSIDE RECORDS SUMMARY | 2023-09-04 02:20 | XMS REPORT | Clinical Summary ---
:1965 Author Organization [facility] MD [facility] Address [address] [place] [address] Care Team Providers Name Role Phone Tyler Kenny MD Unavailable Marcello Schultz MD Primary Care Provider Keron Tan MD Unavailable Laura Sexton MD Unavailable Miguelito Santoyo MD Unavailable [phone] Delores Oakes Unavailable Chuck Thomas MD Unavailable Josh Dewey MD Unavailable Stephon Alejandro MD Unavailable Luis Armando Andrews MD Unavailable Allergies Active Allergy Reactions Criticality Noted Date Comments Hydrocodone-Acetamin Other (See Comments) Low 02/04/2022 Patient refused to ophen take, worried o f getting addicte d to the medicine. 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 Metastatic malignant neoplasm to bone, Estrogen receptor positive status (ER+), Secondary malignant neoplasm of skin Additional Information Patient taking differently: 75 mg oral Every morning, Reason: Other, Reported on 06/25/2023 lactulose (CHRONULAC) 10 Take 30 mL (20 g) by 300 mL 0 05/11 Active gram/15 mL mouth 2 (two) times a solutionIndications: day as needed Metastatic malignant neoplasm (constipation). to bone albuterol (ProAir HFA) 90 Inhale 2 puffs by mouth 6.7 g 0 06/27/2023 Active mcg/puff inhalerIndications: every 6 (six) hours as Shortness of breath needed for wheezing or shortness of breath. prochlorperazine (Compazine) Take 1 tablet (10 mg) by 28 tablet 3 07/17/2023 Active 10 mg tabletIndications: mouth every 6 (six) Metastatic malignant neoplasm hours as needed for to bone, Estrogen receptor nausea or vomiting (not positive status (ER+) relieved by ondansetron). cyclobenzaprine (FLEXERIL) 10 Take 1 tablet (10 mg) by 30 tablet 0 08/05/2023 Active mg tabletIndications: Hip mouth 3 (three) times a pain day as needed for muscle spasms. Additional Information Patient taking differently: 10 mg oral 3 times daily, Reported on 08/23/2023 hyoscyamine sulfate (ANASPAZ) Dissolve 1 tablet 30 tablet 0 Active 0.125 mg disintegrating (0.125 mg) on the tabletIndications: tongue every 6 (six) Hydronephrosis, not otherwise hours as needed for specified cramping. Additional Information Patient not taking. Reported on 08/23/2023 ALPRAZolam (XANAX) 0.25 Take 1 tablet 15 tablet 0 08/05/2023 Active mg tabletIndications: (0.25 mg) by mouth Estrogen receptor at bedtime. positive status (ER+) famotidine (PEPCID) 20 Take 1 tablet (20 15 tablet 0 3 Active mg tabletIndications: mg) by mouth Neoplasm of extradural daily. space calcium carbonate Chew 1 tablet (500 0 Active (TUMS) 500 mg (200 mg mg) daily. elemental calcium per tablet) chewable tablet amLODIPine (NORVASC) 5 Take 1 tablet (5 0 08/21/2023 Active mg tablet mg) by mouth daily. melatonin 5 mg tab Take 3 tablets (15 0 Active tablet mg) by mouth at bedtime. esomeprazole (NexIUM) Take 1 capsule (20 0 Active 20 MG capsule mg) by mouth every morning before breakfast. artificial tears, Administer 2 drops 30 each 0 09/02/2023 Active carboxymethylcellulose, to both eyes as (REFRESH PLUS) 0.5% needed for dry ophthalmic eyes (twice solutionIndications: daily). Breast cancer dextromethorphan-guaiFE Take 10 mL by 120 mL 0 09/02/2023 Active Nesin (ROBITUSSIN-DM) mouth every 4 10 mg-100 mg/5 mL (four) hours as liquidIndications: needed for cough Breast cancer or congestion. enoxaparin (LOVENOX) 60 Inject 0.6 mL (60 60 each 1 09/02/20 Active mg/0.6 mL prefilled mg) under the skin syringeIndications: every 12 (twelve) Breast cancer hours. OLANZapine (ZyPREXA) Take 1 tablet (2.5 60 tablet 0 09/02/2023 Active 2.5 mg mg) by mouth every tabletIndications: 6 (six) hours as Breast cancer needed for anxiety. Take 5 mg ( 2 tablets ) nightly for sleep polyethylene glycol Fill powder to 510 g 0 09/03/2023 Active (GLYCOLAX) 17 gram/dose tyler inside cap powderIndications: (17 g). Stir and Breast cancer Dissolve in any 4 to 8 ounces of beverage then drink solution as directed daily. senna (SENOKOT) 8.6 mg Take 2 tablets by 120 tablet 0 09/02/20 Active tabletIndications: mouth twice daily. Breast cancer sulfamethoxazole-trimet Take 1 tablet by 24 tablet 0 3 Active hoprim (BACTRIM DS) 800 mouth 3 (three) mg-160 mg per times a week tabletIndications: Friday, Friday Breast cancer and Friday. SITagliptin phosphate Take 1 tablet (100 30 tablet 3 3 Active (JANUVIA) 100 mg mg) by mouth tabletIndications: Drug daily. induced diabetes mellitus with hyperglycemia predniSONE (DELTASONE) Take 5 tablets (50 75 tablet 0 09/04/20 23 / Active 10 mg mg) by mouth daily tabletIndications: for 5 days, THEN 4 23 Pneumonitis tablets (40 mg) daily for 5 days, THEN 3 tablets (30 mg) daily for 5 days, THEN 2 tablets (20 mg) daily for 5 days, THEN 1 tablet (10 mg) daily for 5 days. HYDROmorphone Take 1 tablet (4 90 tablet 0 09/03/2023 Active (DILAUDID) 4 mg mg) by mouth every tabletIndications: 4 (four) hours as Cancer associated pain needed (pain). morphine (MS CONTIN) 30 Take 1 tablet (30 90 tablet 0 09/03/20 23 Active mg 12 hr mg) by mouth every tabletIndications: 8 (eight) hours. Cancer associated pain fluticasone Inhale 1 puff by 60 each 0 09/03/2023 Active propionate-salmeterol mouth every 12 (ADVAIR) 250 mcg-50 (twelve) hours. mcg/inhalation diskus inhalerIndications: Pneumonitis acetaminophen-codeine TAKE 1 TABLET BY 0 11/08/2021 04/2 Discontinued (TYLENOL #3) 300 mg-30 MOUTH EVERY 6 04/11 0 (Reorder) mg tablet HOURS NEEDED 23 FOR PAIN WHEN AWAKE Ventolin HFA 90 Inhale 1 puff by 0 09/28/2021 09/0 Discontinued mcg/actuation inhaler mouth every 04/29 (Not Applicable) (six) hours as 23 needed for wheezing or shortness of breath. ALPRAZolam (XANAX) 0.5 TAKE 1 TABLET BY 0 11/16/2021 07 Discontinued mg tablet MOUTH ONCE DAILY. 05/29 (E rror) 23 letrozole (FEMARA) 2.5 TAKE 1 TABLET BY 0 11/02/2021 03/0 Discontinued mg tablet MOUTH ONCE DAILY 11/29 23 omeprazole (PriLOSEC) TAKE 1 CAPSULE BY 0 11/18/202108/10 Discontinued 40 MG capsule MOUTH IN THE 02/27 (Er ror) MORNING 23 famotidine (PEPCID) 20 Take 1 tablet (20 0 09 Discontinued mg tablet mg) by mouth 04/29 (Other ) nightly as needed 23 for indigestion, heartburn or reflux. Constulose 10 gram/15 TAKE 10 GRAMS ONCE 0 05/11 Discontinued mL solution DAILY FOR 05/29 (Error) CONSTIPATION 23 multivitamin capsule Take 1 capsule by 0 0 07/11 Discontinued mouth daily. 03/29 (Error) 23 palbociclib (IBRANCE) Take 100 mg by 0 08/11 Discontinued 125 mg capsule mouth daily. Every 05/29 (Not Applicable) 21 days 22 ondansetron (ZOFRAN) 8 Take 1 tablet (8 30 tablet 1 11/22/202103/11 Discontinued mg tabletIndications: mg) by mouth every 02/27 Estrogen receptor 8 (eight) hours as 23 positive status (ER+), needed for nausea. Metastatic malignant neoplasm to bone, Nausea prochlorperazine Take 1 tablet (10 60 tablet 1 11/22/202103/11 Discontinued (Compazine) 10 mg mg) by mouth every 02/09 0 tabletIndications: 6 (six) hours as 23 Estrogen receptor needed for nausea positive status (ER+), or vomiting. Metastatic malignant neoplasm to bone, Nausea venlafaxine TAKE 1 CAPSULE BY 0 12/18/202103/11 Discontinued (EFFEXOR-XR) 37.5 mg 24 MOUTH ONCE DAILY 02/27 hr capsule WITH FOOD FOR 23 GENERALIZED ANXIETY DISORDER UNABLE TO FIND Vitamins B12, D, 0 07/12 Discontinued Calcium, C, 04/29 (Stop Ta tian at Probiotic, Milk 23 Disc harge) Thistle letrozole (FEMARA) 2.5 Take 1 tablet (2.5 90 tablet 3 03/19/2029 01/ Discontinued mg tabletIndications: mg) by mouth 11/29 Estrogen receptor daily. 23 positive status (ER+), Metastatic malignant neoplasm to bone venlafaxine (Effexor Take 1 capsule 90 capsule 3 04/18/2022 Discontinued XR) 37.5 mg 24 hr (37.5 mg) by mouth 11/11 0 capsuleIndications: every morning. 23 Estrogen receptor positive status (ER+), Metastatic malignant neoplasm to bone gabapentin (NEURONTIN) Take 1 capsule 90 capsule 3 05/23/202210/10 Discontinued 300 mg (300 mg) by mouth 04/29 (R eorder) capsuleIndications: at bedtime. 22 Estrogen receptor positive status (ER+), Metastatic malignant neoplasm to bone palbociclib (IBRANCE) Take 1 capsule 0 Discontinued 100 mg capsule (100 mg) by mouth 11/29 (Therapy daily. 23 completed) hyoscyamine sulfate Dissolve 1 tablet 30 tablet 0 07/04/2022 0 04/11 Discontinued (ANASPAZ) 0.125 mg (0.125 mg) on the 07/12 0 disintegrating tongue every 6 23 tabletIndications: (six) hours as Hydronephrosis due to needed (bladder ureteral obstruction spasms). tamsulosin (FLOMAX) 0.4 Take 1 capsule 30 capsule 3 07/04/202203/11 Discontinued mg 24 hr (0.4 mg) by mouth 02/27 capsuleIndications: daily as needed 23 Hydronephrosis due to for stent ureteral obstruction pain/left flank pain. ondansetron Dissolve 1 tablet 30 tablet 3 07/04/2022 090 Discontinued (ZOFRAN-ODT) 8 mg (8 mg) on the 04/29 (Other ) disintegrating tongue every 8 tabletIndications: (eight) hours as Metastatic malignant needed for nausea. neoplasm to bone, Secondary and unspecified malignant neoplasm of axilla and upper limb lymph nodes acetaminophen-codeine Take 1 tablet by 60 tablet 0 08/14/202205/11 Discontinued (TYLENOL #3) 300 mg-30 mouth 2 (two) 07/12 0 (Stop Taking at mg tabletIndications: times a day as 23 Discharge) Metastatic malignant needed for neoplasm to bone, moderate pain. Estrogen receptor positive status (ER+) doxycycline Take 1 capsule 20 capsule 0 09/03/202203/11 D iscontinued (Vibramycin) 100 MG (100 mg) by mouth capsuleIndications: twice daily. 23 Cellulitis of right upper limb, Lymphedema traZODone (DESYREL) 100 Take 1 tablet (100 0 11/11 Discontinued mg tablet mg) by mouth 03/29 daily. 23 acetaminophen-codeine TAKE 1 TABLET BY 90 tablet 0 10/07/202205/11 Discontinued (TYLENOL #3) 300 mg-30 MOUTH THREE TIMES 05/29 (Error) mg tabletIndications: DAILY NEEDED 23 Estrogen receptor FOR MODERATE PAIN positive status (ER+), Metastatic malignant neoplasm to bone lidocaine 4 % ptmd Place 1 patch on 0 05/11 Discontinued the skin as 05/29 (Error) needed. Remove & 23 Discard patch within 12 hours or as directed by MD. Remove old patch(es) before replacing new patch(es). gabapentin (NEURONTIN) Take 2 capsules 60 capsule 2 10/25/2022 09/ Discontinued 300 mg (600 mg) by mouth 04/29 (R eorder) capsuleIndications: at bedtime. 23 Estrogen receptor positive status (ER+), Metastatic malignant neoplasm to bone daridorexant (Quviviq) Take 25 mg by 0 08/10 Discontinued 25 mg tabIndications: mouth daily. 02/27 (Error) insomnia 23 palbociclib (Ibrance) Take 1 tablet (100 21 tablet 2 3 11/11 Discontinued 100 mg mg) by mouth daily 03/29 tabletIndications: for 21 days. 23 Metastatic malignant Repeat every 28 neoplasm to bone, days. Estrogen receptor positive status (ER+) prochlorperazine Take 1 tablet by 30 tablet 2 12/04/2022 08 Discontinued (Compazine) 10 mg mouth every 6 02/27 tabletIndications: hours as needed 23 Estrogen receptor for positive status (ER+), nausea/vomiting Metastatic malignant neoplasm to bone alpelisib (PIQRAY) 300 Take 2 tablets 56 tablet 2 12/04/2022 0 8/ Discontinued mg/day (150 mg x 2) (300 mg) by mouth tabletIndications: once daily with 23 Metastatic malignant food neoplasm to bone, Estrogen receptor positive status (ER+) milk Take by mouth. 0 05/11 Disco ntinued thistle/NAC/dandel/turm 05/29 (Error) er (LIVER COMPLEX ORAL) 23 diphenhydrAMINE Take 1 capsule (25 0 05/11 Discontinued (BENADRYL) 25 mg mg) by mouth twice 07/30 (Stop Taking at capsule daily. 23 Discharge) ibuprofen TAKE 1 TABLET BY 0 01/28/2023 05/ Di scontinued (ADVIL,MOTRIN) 800 mg MOUTH EVERY 6 02/27 (Therapy tablet HOURS WITH FOOD 23 comp leted) ALPRAZolam (XANAX) 0.25 Take 1 tablet 0 01/09/2023 0 9/ Discontinued mg tablet (0.25 mg) by mouth 04/29 ( Reorder) at bedtime. 23 acetaminophen-codeine Take 1 tablet by 45 tablet 0 03/05/202304/10 Discontinued (TYLENOL #3) 300 mg-30 mouth 2 (two) 07/12 0 mg tabletIndications: times a day as 23 Neoplasm related pain needed for (acute) (chronic) moderate pain. blood sugar diagnostic 1 strip by 30 strip 3 03/06/2023 05/ (glucose blood) miscellaneous 05/29 strpIndications: route before 23 Metastatic malignant breakfast for 30 neoplasm to bone, days. Estrogen receptor positive status (ER+) lancets 30 Units by see 30 each 3 03/07/2023 05 Exp ired miscIndications: administration 06/29 Metastatic malignant instructions route 23 neoplasm to bone daily for 30 days. Use one lancet daily before breakfast for blood sugar monitoring blood-glucose meter Use as instructed 1 each 0 03/07/2023 0 07/12 Discontinued kitIndications: 04/29 (Sto p Taking at Metastatic malignant 23 Discharge) neoplasm to bone alpelisib (PIQRAY) 300 Take 2 tablets 56 tablet 2 04/30/2023 0 06/11 Discontinued mg/day (150 mg x 2) (300 mg) by mouth tabletIndications: once daily with 23 Metastatic malignant food neoplasm to bone, Estrogen receptor positive status (ER+) acetaminophen-codeine TAKE 1 TABLET BY 45 tablet 0 04/28/202305/11 Discontinued (TYLENOL #3) 300 mg-30 MOUTH TWICE DAILY 05/29 (Error) mg tabletIndications: NEEDED FOR 23 Neoplasm related pain MODERATE PAIN (acute) (chronic) ciprofloxacin HCl Take 1 tablet (250 14 tablet 0 04/30/2023 Discontinued (Cipro) 250 mg mg) by mouth twice 05/29 (Error) tabletIndications: daily. 23 Metastatic malignant neoplasm to bone, Estrogen receptor positive status (ER+), Secondary malignant neoplasm of skin hyoscyamine sulfate TAKE 1 TABLET BY 30 tablet 0 05/08/2023 Discontinued (ANASPAZ) 0.125 mg MOUTH EVERY 6 12/30 disintegrating HOURS NEEDED ( 23 tabletIndications: BLADDER SPASMS) Hydronephrosis, not otherwise specified montelukast (SINGULAIR) Take 1 tablet (10 0 07/11 Discontinued 10 mg tablet mg) by mouth at 03/29 ( Error) bedtime. 23 alpelisib (PIQRAY) 300 Take 2 tablets 56 tablet 2 06/24/2023 0 8 Discontinued mg/day (150 mg x 2) (300 mg) by mouth tabletIndications: once daily with 23 Metastatic malignant food neoplasm to bone, Estrogen receptor positive status (ER+) HYDROmorphone Take 1 tablet (2 60 tablet 0 06/07/202306/11 Discontinued (DILAUDID) 2 mg mg) by mouth every 01/27 (Reorder) tabletIndications: 4 (four) hours as 23 Metastatic malignant needed for neoplasm to bone moderate pain. acetaminophen-codeine Take 1 tablet by 60 tablet 0 06/13/202306/11 Discontinued (TYLENOL #3) 300 mg-30 mouth 3 (three) (Reorder) mg tabletIndications: times a day as 23 Neoplasm related pain needed for (acute) (chronic) moderate pain. albuterol (ProAir HFA) Inhale 2 puffs by 6.7 g 0 06/10 Discontinued 90 mcg/puff mouth every 6 06/29 (Reo rder) inhalerIndications: (six) hours as 23 Shortness of breath needed for wheezing or shortness of breath. ibuprofen Take 1 tablet (600 10 tablet 0 06/27/202306/10 Discontinued (ADVIL,MOTRIN) 600 mg mg) by mouth every 06/29 (Reorder) tabletIndications: Back 8 (eight) hours as 23 pain, not otherwise needed for specified moderate pain. ibuprofen Take 1 tablet (600 10 tablet 0 06/27/2023 090 Discontinued (ADVIL,MOTRIN) 600 mg mg) by mouth every 04/29 (Other ) tabletIndications: Back 8 (eight) hours as 23 pain, not otherwise needed for specified moderate pain. HYDROmorphone Take 0.5-1 tablets 90 tablet 0 07/02/202307/12 Discontinued (DILAUDID) 2 mg (1-2 mg) by mouth 12/30 (Stop Taking at tabletIndications: every 4 (four) 23 Discharge) Metastatic malignant hours as needed neoplasm to bone for moderate pain. acetaminophen-codeine Take 1 tablet by 60 tablet 0 07/07/202307/11 Discontinued (TYLENOL #3) 300 mg-30 mouth 3 (three) (Reorder) mg tabletIndications: times a day as 23 Neoplasm related pain needed for (acute) (chronic) moderate pain. loperamide (IMODIUM) 2 Take 1 capsule (2 28 capsule 3 07/17/20 23 08/11 Discontinued mg capsuleIndications: mg) by mouth at (Therapy Metastatic malignant the first onset of 23 completed) neoplasm to bone, diarrhea, then 1 Estrogen receptor capsule (2 mg) as positive status (ER+) needed for unresolved diarrhea. Total maximum daily dose of 8 mg. INV-() MICHAELLE-222 Take 1 capsule 60 capsule 0 07/17/202307/12 Discontinued (first generation) 100 (100 mg) by mouth 04/29 (Stop Taking at mg capsuleIndications: every 12 (twelve) 23 Discharge) Metastatic malignant hours for 28 days. neoplasm to bone, Take on empty Estrogen receptor stomach. See pill positive status (ER+) diary. INV-() Take 2 tablets 42 tablet 0 07/17/202307/12 Discontinued ribociclib 200 mg (400 mg) by mouth 04/29 (Stop Taking at tabletIndications: daily for 21 days. 23 Discharge) Metastatic malignant On, then 7 days neoplasm to bone, off in 28 days Estrogen receptor cycle. Take on positive status (ER+) empty stomach. See pill diary. hyoscyamine sulfate TAKE 1 TABLET BY 30 tablet 0 07/22/2023 Discontinued (ANASPAZ) 0.125 mg MOUTH EVERY 6 04/29 (Reorder) disintegrating HOURS NEEDED 23 tabletIndications: FOR BLADDER SPASMS Hydronephrosis, not otherwise specified cyclobenzaprine Take 1 tablet (10 15 tablet 0 07/21/202307/12 Discontinued (FLEXERIL) 10 mg mg) by mouth 3 04/29 (Reorder) tabletIndications: Hip (three) times a 2 3 pain day as needed for muscle spasms. acetaminophen-codeine Take 1 tablet by 60 tablet 0 07/22/202307/11 Discontinued (TYLENOL #3) 300 mg-30 mouth every 4 2/2 0 (Reorder) mg tabletIndications: (four) hours as 23 Neoplasm related pain needed for (acute) (chronic) moderate pain. acetaminophen-codeine Take 1 tablet by 60 tablet 0 07/22/202307/12 Discontinued (TYLENOL #3) 300 mg-30 mouth every 4 2/2 0 (Stop Taking at mg tabletIndications: (four) hours as 23 Discharge) Neoplasm related pain needed for (acute) (chronic) moderate pain. HYDROmorphone Take 1 tablet (2 90 tablet 0 08/01/202308/11 Discontinued (DILAUDID) 2 mg mg) by mouth every 03/29 (Stop Taking at tabletIndications: 4 (four) hours as 23 Discharge) Cancer associated pain needed for severe pain. gabapentin (NEURONTIN) Take 2 capsules 60 capsule 2 08/05/202308/11 Discontinued 300 mg (600 mg) by mouth 03/29 (S top Taking at capsuleIndications: at bedtime. 23 Discharge) Metastatic malignant neoplasm to bone, Estrogen receptor positive status (ER+) dexAMETHasone Take 1 tablet (4 7 tablet 0 08/05/202308/11 Discontinued (DECADRON) 4 mg mg) by mouth daily 02/27 (Therapy tabletIndications: with breakfast for 23 completed) Neoplasm of extradural 7 dakys then stop. space pediatric multivitamin Chew daily. 0 08/11 Discontinued chewable tablet 02/27 (Sto p Taking at 23 Discharge) melatonin 3 mg tablet Take 1 tablet (3 0 1 0/1 Discontinued mg) by mouth at 02/27 (Err or) bedtime. Gummy 23 INV-() MICHAELLE-222 Take 1 capsule 60 capsule 0 08/14/202308/11 Discontinued (first generation) 100 (100 mg) by mouth 02/27 (Stop Taking at mg capsuleIndications: every 12 (twelve) 23 Discharge) Metastatic malignant hours for 28 days. neoplasm to bone, Take on empty Estrogen receptor stomach. See pill positive status (ER+) diary. INV-() Take 2 tablets 42 tablet 0 08/14/202308/11 Discontinued ribociclib 200 mg (400 mg) by mouth 02/27 (Stop Taking at tabletIndications: daily for 21 days. 23 Discharge) Metastatic malignant On, then 7 days neoplasm to bone, off in 28 days Estrogen receptor cycle. Take on positive status (ER+) empty stomach. See pill diary. levoFLOXacin (LEVAQUIN) Take 1 tablet (500 5 tablet 0 023 08/11 Discontinued 500 mg mg) by mouth 02/27 (Stop T aking at tabletIndications: daily. Begin 2 23 Discharge) Hydronephrosis due to days before ureteral stricture surgery predniSONE (DELTASONE) Take 1 tablet (10 0 3 08/11 Discontinued 10 mg tablet mg) by mouth twice 02/27 (Stop Taking at daily. 23 Discharge) Active Problems Patient Care Coordination Note Formatting of this note might be differe nt from the original. Asymptomatic COVID-19 test completed on 07/08/22. Test results in Media tab. PCR performed from nasopharyngeal source per report. 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 08/29/2023 Anxiety disorder due to a general medical condition 08/27/20 Psychiatric interview and evaluation 08/26/2023 History of cancer metastatic to bone 08/25/2023 Pathological fracture in neoplastic disease, pelvis and 08/10 femur Pulmonary infiltrate 08/23/2023 Overview: Added automatically from request for arturo armas [id number] Cancer associated pain 07/30/2023 Serum creatinine above reference range 07/24/2023 Disorder of mineral metabolism 07/24/2023 Hyperuricemia 07/24/2023 Hyperphosphatemia 07/24/2023 Hyposmolality and/or hyponatremia 07/24/2023 Hip pain 07/09/2023 Last Assessment & Plan: Formatting of th is note might be different from the original. Xray reveals known bone metastases but i s negative for pathologic fracture. Continue follow up with oncology team. Hydronephrosis 07/03/2023 Overview: Added automatically from request for arturo armas [id number] Dyspnea 06/26/2023 Last Assessment & Plan: Formatting of th is note might be different from the original. Today's PFTs reveal restrictive lung def ect. DLCO is normal. She was unable to perform 6mwt d/t right hip pain. Though I suspect given her cDLCO 116% she would not have desaturated to the point of needed supplemental oxygen. We have no PFTs prior to the chemical pl eurodesis procedure for comparison. The restriction may be r/t decreased rig ht lung slide resulting from the chemical pleurodesis. She may have some benefit from RACHELE PRN for help with cough. However, unfortunately there are no maintenance inhaled therapies available to relieve restrictive lung disease. Good news is her diffusion capacity is c ompletely normal. Advised it's okay to continue low impact , low intensity exercise. Bilateral swelling of upper limbs 06/26/2023 Hypothyroidism 06/26/2023 Malignant pleural effusion 05/30/2023 Overview: Added automatically from request for arturo armas [id number] Last Assessment & Plan: S/p right thoracentesis x 1 followed by thoracoscopy with talc pleurodesis on 06/05/23 with placement of IPC IPC removal on 06/12/23. Small right loculated effusion on subseq uent imaging not amenable to intervention. I had discussion with Ms. Domingo poon goal of the talc pleurodesis was to seal the space so the metastatic pleural fluid would not continue to accumulate necessitating repeat thoracentesis or having an IPC in place for 6 weeks or longer. Unfortunately having the procedure was n ot expected to return her to to her pre diagnosis level of functioning and exercise capability. I reviewed the 05/27/23 CT and the 06/27 C T chest with her pointing out the decreased effusion seen on the latter CT. This seemed to be encouraging to her. She took a video to share with her father. Metastatic osseous disease possibly furt her aggravated by inflammation r/t chemical pleurodesis. Pain is being managed with anti inflammatories and other pain medication as managed by the pain management team. 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 Metastatic malignant neoplasm to bone 11/20/2021 Postmenopausal state 04/05/2019 Anxiety 04/05/2019 Resolved Problems Problem Noted Date Diagnosed Date Resolved Date Pleural effusion 05/05/2023 06/26/2023 Overview: Added automatically from request for arturo armas [id number] Encounters Date Type Department Care Team Description 08/29/2023 Hospital Encounter Radiation Oncology [facility], Discharge 3:00 PM [place], Disposition: Home CDT - [facility], 1st 08/29/2023 Floor 11:59 PM [place] [address] 08/27/2023 Documentation Radiation Oncology [facility]ao, Rad[facility] [place] [facility], 1st MD [place] [address] 08/27/2023 Orders Only Clinical Center for Koki Olvera RN Infil trating duct Targeted Therapy and lobular [address] carcinoma of breast, Main Bldg, 11th Floo r NOS <Female; Right> Elevator C (Primary Dx) [place] [address] 08/27/2023 Documentation Clinical Center for Koki Olvera RN Targeted Therapy [address] Main Bldg, 11th [place] [address] 08/27/2023 Documentation Clinical Center for Koki Olvera RN Targeted Therapy [address] Main Bldg, 11th [place] [address] 08/26/2023 Orders Only [facility] MD Marcello positi ve status Oncology (ER+) (Primary Dx) [address] [place], [place] [address] 08/26/2023 Orders Only Cardiopulmonary de Lumban, Pneumonia, n ot Center - Pulmonology Debra C, DENTAL ASSISTANT INSTRUCTOR other william specified Medicine (Primary Dx) [address] Main Bldg, 6th [place] [address] 08/26/2023 Documentation Radiation Oncology Bao, Radha Antion[address] [facility], 1st MD [place] [address] 08/26/2023 Documentation Radiation Oncology Bao, [address] [facility], 1st MD [place] [address] 08/25/2023 Surgery Cardiopulmonary Kim Gillespie, FLEXIBLE 11:00 AM [place] - Pulmonology BRONCHO SCOPY WITH CDT - Procedures BRONCHIAL ALVEOLAR 08/25/2023 1515 [facility] LAVAGE 12:00 PM Main [facility], 6th Floor [place] [address] 08/25/2023 Orders Only Radiation Oncology Doughtie, Metastatic malignant 1220 [facility] Sarahi M, neoplasm to bone [facility], 1st DENTAL ASSISTANT INSTRUCTOR (Primary Dx ) [place] [address] 08/25/2023 Orders Only Radiation Oncology Bao, Secondary and [address] [facility], unspecified [facility], 1st MD malignant n eoplasm Floor of axilla and upper near Elevator [place] [address] (Primary Dx) [phone] 08/24/2023 Prep for Surgery Cardiopulmonary Seyd Merritt Pulmona ry infiltrate [place] - Pulmonology (Primar y Dx) Medicine 1515 [facility] Main [facility], 6th [place] [address] 08/23/2023 Hospital Encounter MAIN 21SW Dago, Breast cancer (Primary Dx); 10:[address] [place] [address] Rad Gallo MD Hip pain; CDT - Vinod Henderson, Pathological fracture in pro plastic disease, hip, unspecified, initial encounter for fracture; 09/03/2023 [place] [address] MD Aubrie History of cancer metastatic to bone; 2:23 PM [phone] Dumbrava, Dyspnea; CDT Clifton Mejia MD Pulmonary infiltrate; Vicenta Li MD Metastatic ma lignant neoplasm to bone; PhD 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; Psychiatric int erview and evaluation; Pathological fr acture in neoplastic disease, pelvis, subsequent encounter for fracture with malunion; Cancer associat ed pain; Hyposmolality a nd/or hyponatremia; Hyperphosphatem ia; Hyperuricemia; Serum creatinin e above reference range; Hypothyroidism, not otherwise specified; Bilateral swell ing of upper limbs; Malignant pleur al effusion; Estrogen recept or positive status (ER+); 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; Personal histor y of malignant neoplasm of breast; Postmenopausal state; 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; Pneumonitis Discharge Dispo sition: Home with Home-Health or Physical Therapy 08/23/2023 Travel 08/22/2023 Hospital Encounter Pain Management Blair Rowland Met astatic malignant neoplasm to bone (Primary Dx); 3:10 PM [place] BRITT Neoplasm related pain (acute ) (chronic) CDT - 1515 [facility] Discharge Disposition: Home 08/22/2023 Main [facility], 4th Floor 11:59 [place] [address] 08/22/2023 Ancillary Procedure X-Ray Outpatient Urschel, 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, NOS <Female; Right>; 2:15 PM [place] BRITT Martinez Metastatic malignant neoplas m to bone CDT 1220 [facility], 7th [place] [address] 08/22/2023 Ancillary Procedure X-Ray Outpatient [facility], 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, NOS <Female; Right>; 2:00 PM [place] BRITT Martinez Metastatic malignant neoplas m to bone CDT 1220 [facility], 7th [place] [address] 08/22/2023 Follow-Up Clinical Center for Juan AntonioNaya Infiltra ting duct and lobular carcinoma of breast, NOS <Female; Right> (Primary Dx); 12:00 PM Targeted Therapy BRITT Childs Metastatic malignant neoplasm to bone; CDT 1515 [facility] Marcella Sherman Secondary and unspecified ma lignant neoplasm of lymph nodes of multiple regions, not otherwise specified; Main [facility], Pantera Chow MD Cancer associated pain; Elevator C Dyspnea, [place] [address] 08/22/2023 Hospital Encounter Diagnostic Laboratory Katherine Garcia, Metastatic malignant neoplasm to bone; 10:00 AM Center DENTAL ASSISTANT INSTRUCTOR Estrogen receptor positive drea aparicio (ER+) CDT - [address] Discharge Disposition: Home 08/22/2023 Main Bldg, Elevator A 3:09 [place] [address] CDT 08/22/2023 Telephone Clinical Center for Reva, Targeted Therapy BRITT Martinez [address] Main Bldg, 11th [place] [address] 08/22/2023 Case Management Case Management Ambika Alegre [address] [address] 08/22/2023 Orders Only Pain Management Blair Rowland, Neoplasm related Center DENTAL ASSISTANT INSTRUCTOR pain (acute) [address] (chronic) (Primary Main Bldg, 4th Floor Dx) [place] [address] 08/22/2023 Travel 08/20/2023 Documentation Clinical Center for Koki Olvera RN Targeted Therapy [address] Main Bldg, 11th [place] [address] 08/17/2023 Documentation Clinical Center for Koki Olvera RN Targeted Therapy [address] Main Bldg, 11th [place] [address] 08/15/2023 Telephone Clinical Center for Koki Olvera RN Targeted Therapy [address] Main Bldg, 11th [place] [address] 08/15/2023 Orders Only Carlos Cruz PA Hydron ephrosis, not City - Urology otherwise specified [address] [facility] (Primary D x) [place] [address] 08/15/2023 Orders Only Clinical Center for Koki Olvera RN Metas tatic malignant neoplasm to bone (Primary Dx); Targeted Therapy 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, NOS <Female; Right>; [address] Estrogen receptor positive s tatus (ER+) Main Bldg, 11th [place] [address] 08/15/2023 Orders Only [facility] [place], Metastatic malignant [address] MELCHOR [place] neoplasm to bone Main Bldg, 9th Floor (Primary Dx) [place] [address] 08/14/2023 Hospital Encounter Clinical and Josh Dewey, Metastat ic malignant neoplasm to bone; 12:00 PM Translational Estrogen photographic supervisor tor positive status (ER+) [facility] Research Center Discharge Disposition: Home [address] Main Bldg, 2nd [place] [address] 08/14/2023 Hospital Encounter Clinical and Josh Dewey, Estrogen receptor positive status (ER+) (Primary Dx); 12:00 PM Translational Metastatic malignant neoplasm to bone [facility] Sivakumar Carroll, Discharge Disposition: Home [address] RN Main Bldg, 2nd [place] [address] 08/14/2023 Hospital Encounter Cardiopulmonary Vianca Campos, Pre-steele rgery evaluation 10:00 AM Center DENTAL ASSISTANT INSTRUCTOR Discharge Disposition: Home CDT - [address] 08/14/2023 Main Bldg, 6th Floor 11:59 [place] [address] 08/14/2023 Orders Only Clinical Center for TristenParthat ic malignant Targeted Therapy Hansini neoplasm to bone [address] (Primary Dx) Main Bldg, 11th [place] [address] 08/14/2023 Travel 08/12/2023 Anesthesia Event Perioperative Vianca Campos, 11:59 PM Evaluation and DENTAL ASSISTANT INSTRUCTOR CDT Management Center [address] Main Bldg, 6th [place] [address] 08/12/2023 Case Management Case Management Xiomara Arguelles [address] R, [place] [address] 08/12/2023 Orders Only Vivian Bravo, Hydron ephrosis due City - Survivorship PA to ureteral [address] stricture (Primary South [place]x) [place] [address] 08/11/2023 Follow-Up Clinical Center for Marcella Sherman trating duct and lobular carcinoma of breast, NOS <Female; Right> (Primary Dx); 2:40 PM Targeted Therapy R, MD Exam of participant in clinical trial; CDT [address] Vicenta Li MD 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; Main Bldg, Floo r PhD Estrogen receptor positive s tatus (ER+); Elevator C Metastatic malignant neoplas m to bone; [place] [address] Hypercalcemia; [phone] Hyperuricemia; Serum creatinin e above reference range; Malignant pleur al effusion 08/11/2023 Hospital Encounter Diagnostic Laboratory Katherine Garcia, 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, 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; Right>; 11:30 AM Center DENTAL ASSISTANT INSTRUCTOR Hydronephrosis, not otherwis e specified CDT - [address] Discharge Disposition: Home 08/11/2023 Main Bldg, Elevator A 11:59 [place] [address] CDT 08/11/2023 Orders Only Clinical Center for Koki Olvera RN Metas tatic malignant neoplasm to bone (Primary Dx); Targeted Therapy 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, NOS <Female; Right> [address] Main Bldg, [place] [address] 08/11/2023 Orders Only Clinical Center for Vicenta Li MD Metast atic malignant neoplasm to bone (Primary Dx); Targeted Therapy PhD Estrogen receptor positive s tatus (ER+) [address] Main Bldg, [place] [address] 08/11/2023 Orders Only Clinical Center for [employer] Targeted Therapy III, PharmD [address] Main Bldg, 11th [place] [address] 08/11/2023 Travel 08/08/2023 Orders Only Carlos Cruz PA Hydron ephrosis, not City - Urology otherwise specified [address] [facility] (Primary D x) [place] [address] 08/07/2023 Documentation Clinical Center for Koki Olvera RN Targeted Therapy [address] Main Bldg, 11th [place] [address] 08/07/2023 Orders Only Clinical Center for Koki Olvera RN Infil trating duct and lobular carcinoma of breast, NOS <Female; Right> (Primary Dx); Targeted Therapy Estrogen receptor positive s tatus (ER+) [address] Main Bldg, 11th [place] [address] 08/06/2023 Orders Only Clinical Center for Koki Olvera RN Infil trating duct Targeted Therapy and lobular [address] carcinoma of breast, Main Bldg, 11th Floo r NOS <Female; Right> Elevator C (Primary Dx) [place] [address] 08/04/2023 Hospital Encounter Radiation Treatment Rena Schultz 6:15 AM Center MD Marcello Disposition: Home CDT - [address] 08/04/2023 Main Bldg 11:59 PM [place] [address] 08/04/2023 Documentation Radiation Oncology Brenna Strong, [address] [place] [address] 08/04/2023 Documentation Radiation Oncology Brenna Strong, [address] [place] [address] 08/01/2023 Documentation Radiation Oncology Brenna Strong, [address] [place] [address] 08/01/2023 Documentation Radiation Oncology Brenna Strong, [address] [place] [place] [address] 07/31/2023 Orders Only Clinical Center for Koki Olvera RN Targeted Therapy [address] Main Bldg, 11th [place] [address] 07/31/2023 Orders Only Radiation Oncology Olsen, Metastatic malignant [address] BRITT Acuna neoplasm to bone [facility], 1st (Primary Dx ) [place] [address] 07/30/2023 Anesthesia Event Diagnostic Imaging Eunice Willis 9:11 AM Efraín Galeano MD CDT [address] Main Bldg, 3rd [place] [address] 07/30/2023 Orders Only [facility] Tyler Childs Metastatic malignant [address] Drea, PA neoplasm to bone Main Bldg, 9th Floor (Primary Dx) [place] [address] 07/28/2023 Anesthesia Event Diagnostic Imaging Analy Pringle, 4:54 PM Center CDT [address] Main Bldg, 3rd [place] [address] 07/28/2023 Hospital Encounter Oral Oncology Kahn, Encounter for observation fo r other suspected disease ruled out 10:[address] Dariel Sifuentes, DDS Discharge Disposition: Home CDT - Main Bldg, 9th Floor 07/28/2023 Elevator A 11:59 [place] [address] CDT [phone] 07/28/2023 Documentation Clinical Center for Koki Olvera RN Targeted Therapy [address] Main Bldg, 11th [place] [address] 07/27/2023 Orders Only Oral Oncology Barbra, Encounter for [address] LALITO Leary observation for Main Bldg, 9th Floor other suspected Elevator [place] [address] (Primary Dx) [phone] 07/27/2023 Telephone MD [facility] MD Selwyn Pérez [place], [place] [address] 07/26/2023 Travel 07/25/2023 Hospital Encounter MAIN 21SE Victorino Dawn Neoplasm of extradural space (Primary Dx); 5:57 PM [address] Perez DO Secondary and unspecified malignant neop lasm of lymph nodes of multiple regions; CDT - Guys Ant Durant A, 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, NOS <Female; Right>; 08/05/2023 [place] [address] Metastatic malignant neoplasm to bone; 5:52 PM [phone] Hong Rodriguez MD Encounter for observation for other susp ected disease ruled out; CDT Tsimberidou, Hyposmolality a nd/or hyponatremia; Joe Grady MD Hyperphospha temia; PhD Hyperuricemia; Rashel Alegria MD Serum creati nine above reference range; Hip pain <Right side>; Bilateral swell ing of upper limbs; Dyspnea, not ot herwise specified; Malignant pleur al effusion; Estrogen recept or positive status (ER+); Personal histor y of malignant neoplasm of breast; Postmenopausal state; Fatigue; Shortness of br eath; At risk for fal ls; Muscle wasting and atrophy, not elsewhere classified, unspecified site, not otherwise specified; Cancer associat ed pain; Hip pain; Hydronephrosis, not otherwise specified Discharge Dispo sition: Home 07/25/2023 Telemedicine MD Charles Santoyo, Neoplasm related 11:20 AM [facility] Medicine Miguelito pain (acute) CDT [address] [facility] (chronic) (Primary South Dx) [place], [place] [address] 07/25/2023 Telephone Clinical Center for Lizet Garcia, Targeted Therapy DENTAL ASSISTANT INSTRUCTOR 151 [facility] Main Bldg, [place] [address] 07/25/2023 Orders Only Clinical Center for Lizet Garcia, Targeted Therapy DENTAL ASSISTANT INSTRUCTOR [address] Main Bldg, 11th [place] [address] 07/24/2023 Anesthesia Event Diagnostic Imaging Joseph, 2:56 PM Center MD Shirley CDT [address] Koki Whitney, Main Bldg, 3rd Floor ENGLISH AS A SECOND LANGUAGE TEACH[place] [address] 07/24/2023 Follow-Up Clinical Center for Naya Romano Metastat ic malignant neoplasm to bone (Primary Dx); 10:20 AM Targeted Therapy Naz, BRITT 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, NOS <Female; Right>; CDT [address] Briceno, Hypercalcemia; Main Bldg, 11th Floo r Dwale, DENTAL ASSISTANT INSTRUCTOR Hyposmolality and/or hyponat remia; Elevator C Hyperphosphatemia; [place] [address] Hyperuricemia; [phone] Serum creatinin e above reference range 07/24/2023 Hospital Encounter Diagnostic Imaging Lizet Garcia, Hip pain <Right side> 10:15 AM Center DENTAL ASSISTANT INSTRUCTOR Discharge Disposition: Home CDT - [address] Joseph, 07/24/2023 Main Bldg, 3rd Floor MD Shirley 11:59 PM Elevator F CDT [place] [id number] 07/24/2023 Hospital Encounter Diagnostic Laboratory Josh Dewey, Metastatic malignant neoplasm to bone; 6:30 AM [place] Estrogen receptor positive drea aparicio (ER+) CDT - [address] Discharge Disposition: Home 07/24/2023 Main Bldg, Elevator A 10:14 [place] [address] CDT 07/24/2023 Travel 07/24/2023 Documentation Clinical Center for Koki Olvera RN Targeted Therapy [address] Main Bldg, 11th [place] [address] 07/23/2023 Anesthesia Event Perioperative Naina Rivera, 11:59 PM Evaluation and DENTAL ASSISTANT INSTRUCTOR CDT Management Center [address] Main Bldg, 6th [place] [address] 07/23/2023 POEM Appointments Perioperative Antoine, 12:30 PM Evaluation and MD Marcello CDT Management Center [address] Main Bldg, 6th Floor Elevator A [place] [id number] 07/23/2023 Case Management Case Management Serg Rod [address] [place] [address] 07/22/2023 Refill MD Charles Martinez, Neoplasm related City - Breast Surgery Sharon Brizuela RN pain ( acute) Oncolgy (chronic) [address] [place], [place] [address] 07/22/2023 Orders Only Clinical Center for Koki Olvera RN Metas tatic malignant neoplasm to bone (Primary Dx); Targeted Therapy Estrogen receptor positive s tatus (ER+) [address] Main Bldg, 11th [place] [address] 07/22/2023 Telephone Clinical Center for Ayesha Cason, Targeted Therapy RN [address] Main Bldg, 11th [place] [address] 07/22/2023 Orders Only Clinical Center for Lizte Garcia, Hip p ain <Right Targeted Therapy DENTAL ASSISTANT INSTRUCTOR side> (Primary Dx) [address] Main Bldg, 11th [place] [address] 07/21/2023 Emergency Acute Cancer Care Jairo Fraire, Hip pain (Primary Dx); 9:32 PM Center Hip pain <Right side>; CDT - [address] History of fall 07/21/2023 Main Bldg, 1st Floor Discharge Disposition: Home 11:08 PM near [place] [address] 07/21/2023 Travel 07/18/2023 Orders Only Clinical Center for Koki Olvera RN Infil trating duct Targeted Therapy and lobular [address] carcinoma of breast, Main Bldg, 11th Floo r NOS <Female; Right> Elevator C (Primary Dx) [place] [address] 07/18/2023 Refill Carlos Cruz PA Hydron ephrosis, not City - Urology otherwise specified [address] [place], [place] [address] 07/17/2023 Hospital Encounter Clinical and Naya Romano Estrogen receptor positive status (ER+) (Primary Dx); 8:00 AM Translational BRITT Childs Metastatic malignant neoplasm to bone CDT [facility] Ashley Ball Discharge Disposition: Home [address] [facility] Briana Bruner RN Main dg, 1st [place] [address] 07/17/2023 Hospital Encounter Clinical and Naya Romano Infiltrat ing duct and lobular carcinoma of breast, NOS <Female; Right> 8:00 AM Translational BRITT Childs Discharge Disp osition: Home CDT Research Center [address] [facility] Main Bldg, 1st [place] [address] 07/17/2023 Anesthesia Event Perioperative EagleCatrina 1:02 AM Evaluation nayely Fernandez RN CDT Management Center [address] Main Bldg, 6th [place] [address] 07/17/2023 Orders Only Clinical Center for Koki Olvera RN Metas tatic malignant neoplasm to bone (Primary Dx); Targeted Therapy 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, NOS <Female; Right> [address] Main Bldg, 11th [place] [address] 07/17/2023 Travel 07/16/2023 Telemedicine MD Charles Pérez [facility], Estrogen receptor positive status (ER+) (Primary Dx); 3:20 PM [facility] MD Marcello Metast atic malignant neoplasm to bone CDT Oncology [address] [place], [place] [address] 07/16/2023 Follow-Up Clinical Center for Josh Dewey, Irene ating duct and lobular carcinoma of breast, NOS <Female; Right> (Primary Dx); 11:30 AM Targeted Therapy Metastatic malignant neoplas m to bone; CDT [address] Malignant pleural effusion; Main Bldg, 11 Floo r Hypothyroidism, not otherwis [place] [address] 07/16/2023 POEM Appointments Perioperative Vivian Granados, Pre op labs (Primary 10:30 AM Evaluation and PA Dx) CDT Management Center [address] [place] [address], 6th [place] [address] 07/16/2023 Hospital Encounter Diagnostic Laboratory Naya Romano 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, NOS <Female; Right> 6:45 AM [place] BRITT Childs Discharge Disposition: Home CDT - 15[address] [facility] 07/16/2023 [facility], Elevator A 11:59 [place] [address] CDT 07/16/2023 Orders Only Clinical Center for Josh Dewey Metasta tic malignant neoplasm to bone (Primary Dx); Targeted Therapy Estrogen receptor positive s tatus (ER+) [address] [place] [address], 11th [place] [address] 07/16/2023 Orders Only Clinical Center for [facility] Metadrea tatic malignant neoplasm to bone (Primary Dx); Targeted Therapy III, PharmD Estrogen receptor positive s tatus (ER+) 1515 [facility], 11th [place] [address] 07/16/2023 Travel 07/15/2023 Hospital Encounter MD Charles Feliz Naya Romano Infil trating duct and lobular carcinoma of breast, NOS <Female; Right> 12:54 PM [place] Naz, BRITT Discharge Disposition: Home CDT - [address] [address] 07/15/2023 [place] [address] MD Carleen 11:59 PM [phone] CDT 07/15/2023 Orders Only MD [facility] Estrogen receptor positive status (ER+) (Primary Dx); [facility] MD Marcello Metast atic malignant neoplasm to bone Oncology [address] [place], [place] [address] 07/15/2023 Orders Only Clinical Center for Ester Comer RPH Metas tatic malignant neoplasm to bone (Primary Dx); Targeted Therapy Estrogen receptor positive s tatus (ER+) [facility] Main Bldg, 11th [place] [address] 07/15/2023 Orders Only Clinical Center for Koki Olvera RN Targeted Therapy [address] Main Bldg, 11th [place] [address] 07/15/2023 Travel 07/11/2023 Hospital Encounter Interventional Abouharb, Metasta tic malignant neoplasm to bone (Primary Dx); 2:58 PM Radiology MD Marcello 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, NOS <Female; Right>; CDT - [address] [facility] Nataly King, Hip pain <Left side>; 07/11/2023 [facility], 4th PA Encounter f or other preprocedural examination 11:59 PM Floor Discharge Disposition: [place] [address] 07/11/[address] Imaging Juan Antonio Alirezavenancio Infiltrating duct 11:45 AM [address] [facility] NazBRITT and lobular T [facility], 7th carcinoma o f breast, Floor NOS <Female; Right> [place] [address] 07/11/2023 Ancillary Procedure Nuclear Medicine Juan Antonio Alirezanamratamaria 11:00 AM [address] [facility] LASHAE ChildsN CDT [facility], 6th Floor, [place] [address] 07/11/2023 Hospital Encounter Cardiopulmonary Naya Romano Infilt rating duct and lobular carcinoma of breast, NOS <Female; Right> 9:30 AM [place] Naz, DENTAL ASSISTANT INSTRUCTOR Discharge Disposition: Home CDT - [address] 07/11/2023 Main [facility], 6th Floor 2:57 PM Elevator C T [place] [id number] 07/11/2023 Hospital Encounter Cardiopulmonary Naya Romano Infilt rating duct and lobular carcinoma of breast, NOS <Female; Right> 9:15 AM [place] Naz, DENTAL ASSISTANT INSTRUCTOR Discharge Disposition: Home CDT - [address] 07/11/2023 Main [facility], 6th Floor 9:29 [place] [address] 07/11/2023 Hospital Encounter Cardiopulmonary Naya Romano Infilt rating duct and lobular carcinoma of breast, NOS <Female; Right> 9:00 AM Center BRITT Childs Discharge Disposition: Home CDT - [address] 07/11/2023 Main Bldg, 6th Floor 9:14 [place] [address] 07/11/2023 Ancillary Procedure Nuclear Medicine Naya Romano Infiltrating duct 8:30 AM [address] BRITT Childs and lobular CDT [facility], 6th carcinoma o f breast, Floor, Elevator T NOS <Female; Right> [place] [address] 07/11/2023 Orders Only Interventional Nataly King, Radiology PA [address] [facility], 4th [place] [address] 07/11/2023 Travel 07/10/2023 Orders Only Edis Sepulveda 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); [facility] BRITT Burrell [facility] rating duct and lobular carcinoma of breast, NOS <Female; Right> Oncology [address] [place], [place] [address] 07/09/2023 Orders Only Edis Sepulveda [facility] BRITT Burrell Oncology [address] [place], [place] [address] 07/08/2023 Ancillary Procedure X-Ray Outpatient Munira Radhamanuela rico <Initial> 1:45 PM Center BRITT Rinaldi CDT [address] [facility], 7th [place] [address] 07/08/2023 Hospital Encounter Head and Neck Center Laura Sexton , 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, NOS <Female; Right> 1:00 PM - Ophthalmology MD Discharge Disposition: Home CDT - [address] 07/08/2023 Main Bldg, 9th Floor 11:59 PM [place] [address] 07/08/2023 Follow-Up Clinical Center for Naya Romano Metastat ic malignant neoplasm to bone (Primary Dx); 11:40 AM Targeted Therapy BRITT Childs 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, NOS <Female; Right>; CDT [address] [place], Metastatic malignant neoplas m to pleura; Main Bldg, 11th Floo r BRITT Nuñez 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; Elevator C Malignant pleural effusion; [place] [address] Other hydronephrosis; [phone] Cancer associat ed pain; History of fall 07/08/2023 Follow-Up Cardiopulmonary Radha Lombardo Fall <Initi al> (Primary Dx); 10:00 AM [place] - Pulmonology BRITT Rinaldi ss of breath; CDT Medicine Malignant pleural effusion; [address] Hip pain <Right side> Main dg, 6th [place] [address] 07/08/2023 Hospital Encounter Cardiopulmonary Cookie Sterling Short ness of breath 9:49 AM [place] - Pulmonology ABRITT Dischar ge Disposition: Home CDT - Lab 07/08/[address] 12:59 PM Main Bldg, 6th Floor CDT Elevator C [place] [id number] 07/08/2023 Hospital Encounter Cardiopulmonary Cookie Sterling Short ness of breath 9:00 AM [place] - Pulmonology ABRITT Dischshelby ge Disposition: Home CDT - Lab 07/08/[address] 9:48 AM Main Bldg, 6th Floor CDT Elevator C [place] [id number] 07/08/2023 Ancillary Procedure X-Ray Outpatient Cookie Sterling Erica rtness of breath 8:00 AM Efraín Brizuela APRN CDT [address] [facility] 7[facility] [place] [address] 07/08/2023 Hospital Encounter Diagnostic Laboratory Naya Romano 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, NOS <Female; Right> 6:45 AM [place] Naz, DENTAL ASSISTANT INSTRUCTOR Discharge Disposition: Home CDT - [address] 07/08/2023 Main Bldg, Elevator A 8:59 [place] [address] CDT 07/08/2023 Travel 07/07/2023 Refill MD Charles Santoyo, Neoplasm related City - Genitourinary Miguelito, pain ( acute) Oncology MD (chronic) [address] [place], [place] [address] 07/07/2023 Refill MD Charles Martinez, Neoplasm related City - Pain Medicine Sharon Brizuela RN pain (acute) [address] [facility] (chronic) [place] [address] 07/07/2023 Orders Only Cardiopulmonary Radha Lombardo Center - Pulmonology N, DENTAL ASSISTANT INSTRUCTOR Medicine [address] [facility] Main Bldg, 6th [place] [address] 07/03/2023 Education Interventional Rios, Radiology Eri Randhawa MA 1220 [facility], 4th [place] [address] 07/03/2023 Orders Only Clinical Center for Koki Olvera RN Infil trating duct Targeted Therapy and lobular [address] [facility] carcinoma of breast, Main Bldg, 11th Floo r NOS <Female; Right> Elevator C (Primary Dx) [place] [address] 07/03/2023 Orders Only MD Charles Pérez Shed, Vivian E, Hydron ephrosis, not City - Urology PA otherwise specified [address] [facility] (Primary D x) [place] [address] 07/02/2023 Orders Only Clinical Center for Koki Olvera RN Infil trating duct Targeted Therapy and lobular [address] [facility] carcinoma of breast, Main Bldg, 11th Floo r NOS <Female; Right> Elevator C (Primary Dx) [place] [address] 07/02/2023 Orders Only MD Charles Santoyo, Neoplasm related pain (acute) (chronic) (Primary Dx); [facility] - Pain Medicine Miguelito, jail current use of opi ate analgesic; [address] [facility] Metastatic malignant neoplasm [place] [address] 07/02/2023 Orders Only Cardiopulmonary Cooike Sterling Shortness o f breath [place] - Pulmonology A, DENTAL ASSISTANT INSTRUCTOR (Primar y Dx) Medicine [address] [facility] Main Bldg, 6th [place] [address] 07/02/2023 Orders Only MD Charles Martinez, Neoplasm related [facility] - Pain Medicine Sharon Brizuela RN pain (acute) [address] [facility] (chronic) (Primary South Dx) [place] [address] 07/02/2023 Orders Only Interventional Nancie Monge, Radiology PA [address] [facility], 4th [place] [address] 07/01/2023 Telemedicine MD Charles Pérez Abouharb, Metastati c malignant 3:00 PM [facility] Medical MD Marcello neopla sm to bone CDT Oncology (Primary Dx) [address] [place] [address] 07/01/2023 Orders Only Cardiopulmonary Cookie Sterling Shortness o f breath [place] - Pulmonology A, DENTAL ASSISTANT INSTRUCTOR (Primar y Dx) Medicine [address] Main Bldg, 6th [place] [address] 06/30/2023 Documentation Clinical Center for Koki Olvera RN Targeted Therapy [address] Main Bldg, 11th [place] [address] 06/30/2023 Orders Only Clinical Center for Koki Olvera RN Infil trating duct Targeted Therapy and lobular [address] [facility] carcinoma of breast, Main Bldg, 11th Floo r NOS <Female; Right> Elevator C (Primary Dx) [place] [address] 06/26/2023 Emergency Acute Cancer Care Sarath Joshi Pleural effusion (Primary Dx); 7:56 PM Efraín Wyatt MD 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, NOS <Female; Right>; CDT - [address] Star Kraus, Shortness of breath; 06/27/2023 Main Bldg, 1st Floor Florence Finnegan MD Back pain, not otherwise specified 9:31 PM near [facility], Discharge Disposition: [place] [address] MD Nicolette [phone] 06/26/2023 Travel 06/25/2023 Consult Clinical Center for Josh Dewey Acute c ough (Primary Dx); 10:30 AM Targeted Therapy 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, NOS <Female; Right>; CDT [address] Metastatic malignant neoplas m to bone; Main Bldg, 11th Floo r Personal history of malignan t neoplasm of breast; Elevator [place] [address] 06/25/2023 Ancillary Procedure Diagnostic Center Radha Lombardo Pleural effusion 9:[address] N, DENTAL ASSISTANT INSTRUCTOR CDT 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; Right> 6:30 AM Center BRITT Childs Discharge Disposition: Home CDT - [address] 06/25/2023 Main Bldg, Elevator A 11:59 PM [place] [id number] CDT 06/25/2023 Travel 06/23/2023 Orders Only Cardiopulmonary Lombardo, Radha Pleural eff [facility] - Pulmonology N, DENTAL ASSISTANT INSTRUCTOR (Primar y Dx) Medicine [address] Main Bldg, 6th [place] [address] 06/20/2023 Orders Only Clinical Center for Ayesha Cason Infil trating duct Targeted Therapy RN and lobular [address] carcinoma of breast, Main Bldg, 11th Floo r NOS <Female; Right> Elevator C (Primary Dx) [place] [address] 06/19/2023 Orders Only Cardiopulmonary Radha Lombardo [place] - Pulmonology N, DENTAL ASSISTANT INSTRUCTOR Medicine [address] Main Bldg, 6th [place] [address] 06/18/2023 Telemedicine MD Charles Pérez Abouharb, Metastati c malignant neoplasm to bone (Primary Dx); 3:00 PM [facility] Breast Medical MD Marcello Estrog en receptor positive status (ER+) CDT Oncology [address] [place], [place] [address] 06/16/2023 Orders Only Edis Sepulveda [facility] - Survivorship Ashanti, DENTAL ASSISTANT INSTRUCTOR [address] [place] [address] 06/12/2023 Follow-Up Cardiopulmonary Radha Lombardo Malignant p leural 9:30 AM [place] - Pulmonology N, DENTAL ASSISTANT INSTRUCTOR effusio n (Primary CDT Medicine Dx) [address] [facility] Main dg, 6th [place] [address] 06/12/2023 Ancillary Procedure Cardiopulmonary Radha Lombardo 8:50 AM [facility] Pulmonology N, DENTAL ASSISTANT INSTRUCTOR CDT Procedures [address] [facility] Main dg, 6th [place] [address] 06/12/2023 Refill MD Charles Santoyo, Neoplasm related [facility] - Pain Medicine Miguelito, pain (acute) [address] [facility] MD (chronic) [place] [address] 06/12/2023 Refill MD Charles Martinez Neoplasm related [facility] - Genitourinary Sharon Brizuela RN pain (a cute) Oncology (chronic) (Primary [address] 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 [place] [address] 06/11/2023 Follow-Up MD Charles Schultz, Personal history of malignant neoplasm of breast (Primary Dx); 11:00 AM [facility] Breast Medical MD Marcello Infilt rating duct and lobular carcinoma of breast, NOS <Female; Right>; CDT Oncology Metastatic malignant neoplas m to bone [address] [place] [address] 06/11/2023 Travel 06/05/2023 Anesthesia Event Cardiopulmonary Purugganan, 10:53 AM [facility] Pulmonology MD Jose CDT Procedures [address] Main Bldg, 6th [place] [address] 06/05/2023 Surgery Cardiopulmonary Stephon Alejandro SURGICAL 10:15 AM [facility] Pulmonmariaelena Chau MD THORACO SCOPY WITH CDT - Procedures PLEURODESIS 06/05/2023 [facility] (MECHANICAL OR 12:20 PM Main Bldg, 6th Floor CHEMICAL) [place] [address] 06/05/2023 Hospital Encounter MAIN [address] Stephon Alejandro Metastatic malignant neoplas m to bone (Primary Dx) 9:23 AM Gisel Chau MD Discharge Disposition: Home with Home-He alth or Physical Therapy CDT - Guys Maye 06/07/2023 [place] [address] Dion kendall MD 2:01 PM [phone] Elijah German CDT MD Ramila 06/05/2023 Orders Only [facility] Maye [address] [place] [address] 06/05/2023 Travel 06/04/2023 Anesthesia Event Perioperative Amna Quintero 11:59 PM Evaluation and LASHAE GradyN CDT Management Center [address] Main Bldg, 6th [place] [address] 06/04/2023 POEM Appointments Perioperative Antoine, 4:00 PM Evaluation and MD Marcello CDT Management Center [address] [facility] Main Bldg, 6th [place] [address] 06/04/2023 Orders Only Edis Sepulveda Infiltrat ing duct and lobular carcinoma of breast, NOS <Female; Right> (Primary Dx); [facility] Ashanti DENTAL ASSISTANT INSTRUCTOR Metast atic malignant neoplasm to bone Oncology [address] [place], [place] [address] 06/03/2023 Ancillary Procedure MD Charles Schultz Ms tastatic malignant neoplasm to bone; 11:30 AM Clementina Armendariz MD Estrogen receptor positive s tatus (ER+); CDT [address] [place] [address] Secondary malignant neoplasm of skin [facility] 2nd [place] [address] 06/03/2023 Evaluation MD Charles Schultz, Postmaste ctomy lymphedema syndrome (Primary Dx); 9:30 AM [facility] MD Marcello Metastatic malignant neoplasm to bone; CDT Therapy Pizano, Estrogen receptor positive s tatus (ER+); [address] [facility] Dayanara L, PT Secondar y malignant neoplasm of skin [facility] 3rd [place] [address] 06/03/2023 Orders Only MD Charles Schultz, Parthati c malignant neoplasm to bone (Primary Dx); [facility] MD Marcello Estrog en receptor positive status (ER+) Oncology [address] [place] [address] 06/03/2023 Travel 06/02/2023 Follow-Up Chuck Brown, Hydrone phrosis, not 1:30 PM [facility] Urology otherwise specified CDT [address] [place] [address] (Primary D x) [place] [address] 06/02/2023 Office Visit Chuck Brown, ERRONEO US ENCOUNTER--DISREGARD (Primary Dx); 1:30 PM [facility] Urology Hydronephrosis, not otherwis e specified CDT [address] [place] [address] 06/02/2023 Ancillary Procedure Cardiopulmonary Lombardo, Radha 9:45 AM Center - Pulmonology N, DENTAL ASSISTANT INSTRUCTOR CDT Procedures [address] Main Bldg, 6th [place] [address] 06/02/2023 Follow-Up Cardiopulmonary Lombardo, Radha Malignant p leural 8:00 AM Center - Pulmonology N, DENTAL ASSISTANT INSTRUCTOR effusio n CDT Medicine [address] Main Bldg, 6th [place] [address] 06/02/2023 Ancillary Procedure Diagnostic Center Stephon Alejandro Malignant pleural 7:15 AM [address] Chau MD effusion CDT [facility], 2nd [place] [address] 06/02/2023 Orders Only Edis Sepulveda [facility] BRITT Burrell [address] [place] [address] 06/02/2023 Prep for Surgery Cardiopulmonary Lombardo, Radha Maligna nt pleural [place] - Pulmonology N, DENTAL ASSISTANT INSTRUCTOR effusio n (Primary Medicine Dx) [address] Main Bldg, 6th [place] [address] 06/02/2023 Travel 06/02/2023 Telephone Cardiopulmonary Lombardo, Radha [place] - Pulmonology N, DENTAL ASSISTANT INSTRUCTOR Medicine [address] Main Bldg, 6th [place] [address] 06/01/2023 Refill MD Charles Schultz Metastati c malignant neoplasm to bone; [facility] Breast [facility] MD Marcello Estrog en receptor positive status (ER+) Oncology [address] [place] [address] 05/30/2023 Hospital Encounter Diagnostic Laboratory Andre rg Discharge 3:09 PM Genny Kenny MD Disposition: Home CDT - [address] 05/30/2023 Main Bldg, Elevator A 11:59 [place] [address] CDT 05/30/2023 Prep for Surgery Cardiopulmonary Lombardo, Radha Maligna nt pleural Center - Pulmonology N, DENTAL ASSISTANT INSTRUCTOR effusio n (Primary Medicine Dx) [address] [facility] Main Bldg, 6th [place] [address] 05/30/2023 Telephone Cardiopulmonary [place], Follow-up Center - Pulmonology Bessie Rico RN Medicine [address] [facility] Main Bldg, 6th [place] [address] 05/28/2023 Hospital Encounter MDA CYTOGENETICS Russ, Disch arge 7:19 PM Serge Disposition: Ho tn CDT - MD Luke 05/28/2023 11:59 PM CDT 05/28/2023 Infusion Edis Sepulveda Estrogen receptor positive status (ER+) (Primary Dx); 12:30 PM [facility] - Eugenio Burrell APRN Metastatic malignant neoplas m to bone CDT [address] [place] [address] 4th [place], [place] [address] 05/28/2023 Follow-Up MD Charles Schultz, Estrogen receptor positive status (ER+) (Primary Dx); 11:20 AM [facility] - [facility] MD Marcello Metast atic malignant neoplasm to bone; CDT Oncology Secondary malignant neoplasm of skin [address] [place] [address] 05/28/2023 Travel 05/27/2023 Ancillary Procedure Me Marley tastatic malignant neoplasm to bone; 11:40 AM Clementina Armendariz MD Estrogen receptor positive s tatus (ER+); CDT [address] [place] [address] Secondary malignant neoplasm of skin [address] [address] 05/27/2023 Ancillary Procedure MD Charles Schultz, 9:30 AM Clementina Armendariz MD CDT [address] [place] [address] 05/27/2023 Ancillary Procedure Me Marley tastatic malignant neoplasm to bone; 7:00 AM Clementina Armendariz MD Estrogen receptor positive s tatus (ER+); CDT [address] [place] [address] Secondary malignant neoplasm of skin [address] [address] 05/21/2023 Surgery Cardiopulmonary Javon, Stephon THORACENTE SIS,NEEDLE 1:30 PM Center - Pulmonology MD Kandi OR CDT - Procedures CATHETER,ASPIRATION 05/21/[address] OF THE RIGHT PLEURAL 2:40 PM Main Bldg, 6th Floor SPACE; WITH IMAGING CDT [place] [address] 05/21/2023 Hospital Encounter Cardiopulmonary Javon, Stephon Pleu ral effusion 12:55 PM Center - Pulmonology MD Kandi Dischar ge Disposition: Home CDT - Procedures 05/21/[address] 2:33 PM Main Bldg, 6th [place] [address] 05/21/2023 Consult Cardiopulmonary Javon, Stephon Secondary and unspecified malignant neoplasm of axilla and upper limb lymph nodes; 10:15 AM Center - Pulmonology MD Kandi Malignmaria nt neoplasm of overlapping sites of right female breast; CDT Medicine Malignant pleural effusion [address] Main Bldg, 6th [place] [address] 05/21/2023 Travel 05/20/2023 Travel 05/08/2023 Refill Carlos Cruz PA Hydron ephrosis, not City - Urology otherwise specified [address] [facility] (Primary D x) [place] [address] 05/07/2023 Nutrition Clinical Nutrition [facility], 2:30 PM For your Nutrition MD Marcello CDT appointment location [place], directions please Soha Pathak RD call: 05/05/2023 Prep for Surgery Cardiopulmonary Mackenney, Pleural effusion Center - Pulmonology BRITT Ceja (Primar y Dx) Medicine [address] Main Bldg, 6th [place] [address] 05/01/2023 Orders Only Edis Sepulveda Malignant pleural effusion (Primary Dx); [facility] - Breast Medical BRITT Burrell 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; Oncology Malignant neoplasm of overla pping sites of right female breast [address] [place] [address] 04/30/2023 Ancillary Procedure MD Charles Schultz, Ms tastatic malignant neoplasm to bone; 2:00 PM Clementina Armendariz MD Estrogen receptor positive s tatus (ER+); CDT [address] [facility] Secondary malignant neoplasm of skin [address] [address] 04/30/2023 Ancillary Procedure MD Charles Schultz, Ms tastatic malignant neoplasm to bone; 1:45 PM Clementina Armendariz MD Estrogen receptor positive s tatus (ER+); CDT [address] [facility] Secondary malignant neoplasm of skin [address] [address] 04/30/2023 Infusion MD Charles Schultz, Estrogen receptor positive status (ER+) (Primary Dx); 11:45 AM [facility] MD Marcello Metastatic malignant neoplas m to bone CDT [address] [place] [address] 04/30/2023 Follow-Up MD Charles Schultz, Secondary malignant neoplasm of skin (Primary Dx); 11:00 AM [facility] MD Marcello Metast atic malignant neoplasm to bone; CDT Oncology Estrogen receptor positive s tatus (ER+) [address] [place] [address] 04/30/2023 Travel 04/26/2023 Refill MD Charles Santoyo, Neoplasm related [facility] Pain Medicine Miguleito, pain (acute) [address] [place] [address] (chronic) [place] [address] 04/02/2023 Infusion MD Charles Schultz, Metastati c malignant neoplasm to bone (Primary Dx); 10:30 AM Clementina Eugenio Armendariz MD Estrogen receptor positive s tatus (ER+) CDT [address] [place] [address] 04/02/2023 Follow-Up MD Charles Schultz, Metastati c malignant neoplasm to bone (Primary Dx); 9:40 AM [facility] MD Marcello Estrog en receptor positive status (ER+) CDT Oncology [address] [place] [address] 04/02/2023 Orders Only Edis Sepulveda Metastati c malignant neoplasm to bone (Primary Dx); [facility] BRITT Burrell Estrog en receptor positive status (ER+) Oncology [address] [place] [address] 04/02/2023 Travel 03/12/2023 Telephone Vivian Bravo [facility] - Urology PA [address] [place] [address] 03/11/2023 Telephone MD Charles Mackenzie [facility] VITOR Pérez [address] [place] [address] 03/10/2023 Ancillary Procedure Edis Sepulveda Me tastatic malignant neoplasm to bone; 2:00 PM Clementina Burrell APRN Estrogen receptor positive s tatus (ER+) CDT [address] [place] [address] 2nd [place] [address] 03/10/2023 Travel 03/10/2023 Telephone Chuck Borwn, Results (Pt Domingo [facility] - Urology called requesting to [address] [place] [address] leave a me ssage for [facility] the [place], [place] [address] [phone] results. Pt transferred to nurse's line.) 03/07/2023 Mobile Encounter Edis Sepulveda Metas tatic malignant [facility] - Survivorship BRITT Burrell neoplasm to bone [address] [facility] (Primary D [place]) [place] [address] 03/05/2023 Infusion MD Charles Schultz, Parthati c malignant neoplasm to bone (Primary Dx); 2:00 PM [facility] - Infusion MD Marcello Estrogen receptor positive s tatus (ER+) CDT [address] [place] [address] 4th [place] [address] 03/05/2023 Follow-Up MD Charles Schultz, Metastati c malignant neoplasm to bone (Primary Dx); 1:40 PM [facility] - Breast Medical MD Marcello Estrog en receptor positive status (ER+) CDT Oncology [address] [place] [address] 03/05/2023 Follow-Up Devyn Sands m current use of opiate analgesic (Primary Dx); 1:00 PM [facility] - Pain Medicine Miguelito, Neoplasm related pain (acute ) (chronic) CDT [address] [place] [address] [place] [address] 03/05/2023 Travel 03/04/2023 Orders Only MD Charles Martinez Neoplasm related [facility] - Breast Surgery Sharon Brizuela RN pain ( acute) Oncolgy (chronic) (Primary [address] [place] [address] Dx) [place] [address] 03/04/2023 Orders Only MD Charles Martinez Neoplasm related City - Breast Surgery Sharon Brizuela RN pain ( acute) Oncolgy (chronic) (Primary [address] [place] [address] Dx) [place] [address] 03/03/2023 Ancillary Procedure MD Charles Schultz, 12:00 PM Clementina Armendariz MD CDT [address] [place] [address] 03/03/2023 Ancillary Procedure Me Marley tastatic malignant neoplasm to bone; 9:30 AM Clementina Armendariz MD Estrogen receptor positive s tatus (ER+) CDT [address] [place] [address] 03/03/2023 Ancillary Procedure Me Marley tastatic malignant neoplasm to bone; 8:40 AM Clementina Armendariz MD Estrogen receptor positive s tatus (ER+) CDT [address] [place] [address] 03/03/2023 Travel 02/05/2023 Infusion MD Charles Schultz, Secondary malignant neoplasm of bone (Primary Dx); 2:30 PM Clementina Eugenio Armendariz MD Estrogen receptor positive s tatus (ER+); CDT [facility] Metastatic malignant neoplasm to bone [facility] [address]th [place] [address] 02/05/2023 Follow-Up MD Charles Schultz, Secondary malignant neoplasm of bone (Primary Dx); 2:00 PM Clementina [facility] MD Dorcas Jama en receptor positive status (ER+) CDT Oncology [address] [place] [address], [place] [address] 02/05/2023 Travel 01/27/2023 Orders Only MD Charles Schultz, [facility] MD Marcello Oncology [address] [place] [address] 01/24/2023 Telephone Ashley Johnson P, DENTAL ASSISTANT INSTRUCTOR [address] [place] [address] 01/22/2023 Telephone Steph Clark , [place] [address] [place] [address] 01/08/2023 Infusion MD Charles Schultz, Secondary malignant neoplasm of bone (Primary Dx); 11:45 AM [facility] MD Marcello Estrogen receptor positive s tatus (ER+) INDUSTRIAL MAINTENANCE MECHANIC [address] [place] [address] 01/08/2023 Follow-Up MD Charles Schultz, Secondary malignant neoplasm of bone (Primary Dx); 9:20 AM Clementina [facility] Abhilash Armendariz MD Estrog en receptor positive status (ER+) INDUSTRIAL MAINTENANCE MECHANIC Oncology [address] [place] [address] 01/08/2023 Travel 01/02/2023 Orders Only Edis Sepulveda Secondary malignant neoplasm of bone (Primary Dx); [facility] BRITT Burrell Estrogen receptor positive s tatus (ER+) [address] [place] [address] 12/19/2022 Infusion MD Charles Schultz, Secondary malignant neoplasm of bone (Primary Dx); 2:45 PM [facility] Eugenio Armendariz MD Estrogen receptor positive s tatus (ER+) INDUSTRIAL MAINTENANCE MECHANIC [address] [place] [address], [place] [address] 12/19/2022 Telephone MD Charles Schultz, [place] [address] [place] [address], [place] [address] 12/19/2022 Travel 12/17/2022 Telephone MD Charles Schultz, [place] [address] [place] [address] 12/12/2022 Orders Only MD Charles Schultz, Secondary malignant neoplasm of bone (Primary Dx); MD Dorcas Cloud en receptor positive status (ER+) Oncology [address] [place] [address] 12/12/2022 Orders Only Edis Sepulveda APRN [address] [place] [address] 12/05/2022 Infusion MD Charles Schultz, Secondary malignant neoplasm of bone (Primary Dx); 2:45 PM [facility] Eugenio Armendariz MD Estrogen receptor positive s tatus (ER+) INDUSTRIAL MAINTENANCE MECHANIC [address], [place] [address] 12/05/2022 Travel 12/03/2022 Infusion MD Charles Schultz, Secondary malignant neoplasm of bone (Primary Dx); 1:45 PM [facility] Eugenio Armendariz MD Estrogen receptor positive s tatus (ER+) INDUSTRIAL MAINTENANCE MECHANIC [address] [place] [address] 12/03/2022 Follow-Up MD Charles Schultz, Secondary malignant neoplasm of bone (Primary Dx); 9:40 AM MD Dorcas Cloud en receptor positive status (ER+) INDUSTRIAL MAINTENANCE MECHANIC Oncology [address] [place] [address] 12/03/2022 Travel 11/28/2022 Telemedicine MD Charles Schultz, Secondary malignant neoplasm of bone (Primary Dx); 3:20 PM Clementina Armendariz, MD Estrog en receptor positive status (ER+) INDUSTRIAL MAINTENANCE MECHANIC Oncology [address] [place], [place] [address] 11/27/2022 Orders Only MD Charles Schultz, Secondary malignant neoplasm of bone (Primary Dx); [facility] Abhilash Armendariz MD Estrog en receptor positive status (ER+) Oncology [address] [place], [place] [address] 11/21/2022 Documentation Breast [facility] Fouzia Azul Medical Oncology 12[address] [facility], 5th [place] [address] 11/19/2022 Orders Only MD Charles Schultz, Secondary malignant neoplasm of bone (Primary Dx); [facility] MD Sandoval Jamaog en receptor positive status (ER+) Oncology [address] [place], [place] [address] 11/18/2022 Orders Only [facility] [address] [place] [address] 11/15/2022 Orders Only Edis Sepulveda [facility] BRITT Burrell Oncology [address] [place] [address] 11/15/2022 Refill MD Charles Schultz, Estrogen receptor positive status (ER+); [facility] Abhilash Armendariz MD Second traci malignant neoplasm of bone Oncology [address] [place], [place] [address] 11/15/2022 Orders Only Clinical [facility] for Natasha Reich nal history of Targeted Therapy malignant neoplasm [address] of breast (Primary Main Bldg, 11th Floo r Dx) [place] [address] 11/13/2022 Telemedicine MD Charles Schultz, Estrogen receptor positive status (ER+) (Primary Dx); 2:20 PM [facility] Abhilash Armendariz MD Second traci malignant neoplasm of bone INDUSTRIAL MAINTENANCE MECHANIC Oncology 0 [place], [place] [address] 11/08/2022 Ancillary Procedure MD Charles Schultz Se condary malignant neoplasm of bone; 12:10 PM Clementina Armendariz MD 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 INDUSTRIAL MAINTENANCE MECHANIC [address] [place] [address] 11/08/2022 Ancillary Procedure MD Charles Schultz Se condary malignant neoplasm of bone; 11:30 AM Clementina Armendariz MD 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 [facility] [address] [place] [address] 11/08/2022 Ancillary Procedure MD Charles Schultz, 9:00 AM Clementina Armendariz MD INDUSTRIAL MAINTENANCE MECHANIC [address] [place] [address] 11/08/2022 Telephone Breast [facility] [address] [place] [address], 5th [place] [address] 11/08/2022 Documentation Breast [facility] [address] [place] [address], 5th [place] [address] 11/08/2022 Travel 10/29/2022 Follow-Up MD Charles Schultz, Secondary malignant neoplasm of bone; 1:00 PM [facility] Breast [facility] MD Marcello 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 INDUSTRIAL MAINTENANCE MECHANIC Oncology [address] [place] [address] 10/08/2022 Travel 10/08/2022 Orders Only Edis Sepulveda 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); [facility] BRITT Burrell Person al history of malignant neoplasm of breast; Oncology Secondary malignant neoplasm of bone [address] [place] [address] 10/02/2022 Refill MD Charles Schultz, Estrogen receptor positive status (ER+); [facility] MD Marcello Second traci malignant neoplasm of bone Oncology [address] [place] [address] 10/01/2022 Telephone Carlos Bah RN [address] [place] [address] 10/01/2022 Orders Only Edis Sepulveda Secondary malignant neoplasm of skin (Primary Dx); [facility] BRITT Burrell Secondary malignant neoplasm of bone; [address] [place] [address] Secondary and unspecified malignant neoplasm of axilla [place] [address] 10/01/2022 Documentation MD Charles Oakes [facility] Breast Surgery MELCHOR Estrella Oncolgy [address] [place] [address] 09/26/2022 Consult MD Charles Oakes Skin nodu le; 2:30 PM [facility] Breast Surgery MELCHOR Estrella Second traci malignant neoplasm of bone; 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 Personal h istory of malignant [place] [address] 09/26/2022 Orders Only MD Charles Oakes, [facility] Breast Surgery MELCHOR Estrella Oncolgy [address] [place] [address] 09/26/2022 Travel 09/25/2022 Telemedicine Devyn Sands current use of opiate analgesic; 2:20 PM [facility] Pain Medicine Miguelito, Neoplasm related pain (acute ) (chronic) INDUSTRIAL MAINTENANCE MECHANIC [address] [place] [address] 09/10/2022 Orders Only Edis Sepulveda Skin nodu le (Primary Dx); [facility] BRITT Burrell Second traci malignant neoplasm of bone; Oncology 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 [address] [place] [address] 09/09/2022 Telephone MD Charles Schultz [facility] Cardiology MD Marcello [address] [place] [address] 09/05/2022 Infusion MD Charles Schultz, Secondary malignant neoplasm of bone (Primary Dx); 11:45 AM [facility] Infusion MD Marcello Estrogen receptor positive s tatus (ER+) CDT [address] [place] [address] [address] [place] [address] 09/05/2022 Office Visit MD Charles Schultz, Secondary malignant neoplasm of bone (Primary Dx); 11:00 AM [facility] MD Marcello 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; CDT Oncology Estrogen receptor positive s tatus (ER+) [address] [place] [address] [place] [address] 09/05/2022 Travel after 09/04/2022 Immunizations Name Administration Dates Next Due Moderna SARS-CoV-2 Vaccination 01/03/2021, 12/14/2020 Tdap 05/10/2019 Surgical History Surgery Date Site/Laterality Comments MASTECTOMY 07/27/2013 Bilateral with T YUE proceedure HERNIA REPAIR 08/10/2015 - 09/09/2015 COLONOSCOPY W/ 09/28/2021 Diverticulitis, 1 polyp POLYPECTOMY removed in 2016 and 2020 EGD 09/28/2021 AL CYSTO W/INSERT 02/27/2022 Genitalia/Left Procedure: CYS TOURETHROSCOPY URETERAL STENT WITH INSERTION O F INDWELLING URETERAL STENT; Surgeon: Chuck Thomas MD ; Location: [facility]; Service : UROLOGY AL FLUOROSCOPY UP TO 1 02/27/2022 Left Procedure : PORTABLE HOUR PHYSICIAN/QHP TIME FLOUROSC OPY (C-ARM); Surgeon: Chuck Thomas MD; Location: [facility]; Service: UROLOGY AL CYSTO W/INSERT 07/10/2022 Ureter/Left Procedure: CYS TOURETHROSCOPY URETERAL STENT WITH RETROGRADE PYELOGRAM, LEFT URETERAL ST ENT EXCHANGE Resonance stent; Surgeon: Chuck Thomas MD ; Location: [facility]; Service : UROLOGY AL FLUOROSCOPY UP TO 07/10/2022 Ureter/Left Procedure : PORTABLE HOUR PHYSICIAN/QHP TIME FLOUROSC OPY (C-ARM); Surgeon: Chuck Thomas MD; [facility]; Service: UROLOGY AL THORACENTESIS 05/21/2023 Right Procedure: NEEDLE/CATH PLEURA THORACENTESIS ,NEEDLE OR W/IMAGING CATHETER,ASPIRAT ION OF THE RIGHT PLEURAL SP LOR; WITH IMAGING GUIDANCE ; Surgeon: Stephon Alejandro MD; Location: MAIN P ULM PROC; Service: PULMONA RY AL THORACOSCOPY 06/05/2023 Chest/Right Procedure: SURGI HARPAL W/PLEURODESIS THORACOSCOPY WIT H PLEURODESIS ([facility] HANICAL OR CHEMICAL); Surge on: Stephon Alejandro MD; Loc ation: MAIN PULM PROC; Servi ce: PULMONARY AL INSERTION INDWELLING 06/05/2023 Chest/Right Procedur e: INSERTION OF TUNNELED PLEURAL CATHETER INDWEL LING TUNNELED PLEURAL CATHETER WITH CU FF-RIGHT; Surgeon: Stephon Alejandro MD; Location: [place] IN PULM PROC; Service: P [facility] 08/25/2023 N/A Procedure: FL EXIBLE ALVEOLAR LAVAGE BRONCHOSCOPY WIT H BRONCHIAL ALVEOLAR LAVAGE; Surgeon: Kim Gillespie MD; Location: MAIN PULM PROC; Service: PULMONARY Medical History Medical History Date Comments Hypertension 2020 Osteoarthritis 2018 Gout 2017 Hypothyroidism 2007 Anxiety Drug induced diabetes mellitus with hyperglycemia 08/29/2023 Family History Medical History Relation Name Comments Lung cancer Maternal Grandfather Baljinder Mo at 85 Sarcoma Maternal Uncle Burton Mo R hip and ribs 2 and [address] cancer Mother [address] 11/17 Relation Name Status Comments Maternal Grandfather Baljinder Mo Maternal Uncle Burton Mo Mother Gwen [address] Social History Tobacco Use Types Packs/Day Years Used Date Smoking Tobacco: Never Smokeless Tobacco: Never Alcohol Use Standard Drinks/Week Comments Not Currently 0 (1 standard drink = 0.6 oz pure alcoho l) Education Answer Date Recorded What is the highest level of school Associate degree: [employer] program 08/27/2023 you have completed or the highest degree you have received? Sex and Gender Information Value Date Recorded Sex Assigned at Not on file Gender Identity Not on file Sexual Orientation Not on file Job Start Date Occupation Industry Not on file Not on file Not on file Obstetrics History Para Term AB IAB SAB Ectopic Multiple Living Live Births 1 1 0 1 0 1 Date Outcome GA Total Labor/2nd/3rd Weight Sex Delivery Anes PTL Katie A 1 A5 Name Clin Labor Comments Menarche: age 8 LMP: age 47 Last PAP: 2 weeks ago- normal per patien t Parity: age 36 HRT: none OCP:intermittently 12 years Menopause:age 48- chemo induced Fertility Tx: None Breastfeed: Total 2 months Last Filed Vital Signs Vital Sign Reading Time Taken Comments Blood Pressure 132/76 09/03/2023 7:59 AM CDT Pulse 90 09/03/2023 1:25 PM CDT Temperature 36.7 C (98.1 F) 09/03/2023 7:59 AM CDT Respiratory Rate 20 09/03/2023 1:25 PM CDT Oxygen Saturation 100% 09/03/2023 1:25 PM CDT Inhaled Oxygen Concentration - - Weight 67.8 kg (149 lb 7.6 oz) 08/23/2023 9:46 PM CDT Height 157.5 cm (5' 2.01") 08/23/2023 9:46 PM CDT Body Mass Index 27.33 08/23/2023 9:46 PM CDT Plan of Treatment Date Type Department Care Team Description 09/10/[address] Imaging [facility] 7:45 AM CDT [address] [facility], 7th Ham or [address] [place] [address] [place], [place] [phone] 09/10/2023 Ancillary Procedure Nuclear Medicine AndrewsJoseph 10:30 AM CDT [address] [facility], 6th Floor, [address] [place] [address] [place], [place] [phone] 09/10/2023 Ancillary Procedure Nuclear Medicine [facility] 1:00 PM CDT [address] [facility], 6th Floor, [address] [place] [address] [place], [place] [phone] 09/11/2023 Appointment Diagnostic Laboratory Lizet Garcia, 7:15 AM CDT [facility] [address] Bldg, [place] [address] [place] [address] 09/11/2023 Follow-Up Clinical Center for Son Vilchis MD 9:10 AM CDT Targeted Therapy [address] Main Bldg, 11th [address] [place] [address] [place] [address] 09/11/2023 Appointment Clinical and Lizet Garcia, 11:45 AM CDT [facility] [address] Main dg, 2nd Floor [place] [address] [place] [address] 09/11/2023 Appointment Clinical and Lizet Garcia, 12:30 PM CDT Translational Research [facility]AL [facility]IST[facility] [address] Main Bldg, 1st Floor [place] [address] [place] [address] 09/16/2023 Ancillary Procedure Diagnostic [facility], 8:30 AM INDUSTRIAL MAINTENANCE MECHANIC [address] [facility] MELCHOR Montenegro [facility], 2nd Ham or [address] [place] [address] [place], [place] [phone] 09/16/2023 Ancillary Procedure X-Ray Outpatient [facility], 11:00 AM INDUSTRIAL MAINTENANCE MECHANIC 1220 [facility] MELCHOR Montenegro [facility], 7th Ham or [address] [place] [address] [place], [place] [phone] 09/16/2023 Follow-Up Orthopaedic Center Nader Riley MD 11:45 AM INDUSTRIAL MAINTENANCE MECHANIC [address] Main Bldg, 9th [place] [address] 09/16/2023 Appointment Pain Management Cent er [place], 2:00 PM INDUSTRIAL MAINTENANCE MECHANIC [address] MD Miguelito Main Bldg, 4th Floor [address] [place] [address] [place], [place] [phone] 09/16/2023 Telemedicine MD Soto [facility], 3:00 PM INDUSTRIAL MAINTENANCE MECHANIC - Breast Medical MD Marcello Oncology [address] [facility] [place] [address] [place], [place] [phone] 09/29/2023 Ancillary Procedure Diagnostic Center Tyler Childs 10:00 AM INDUSTRIAL MAINTENANCE MECHANIC [address] [facility], 2nd Ham or [address] Tree [facility] [address] [place], [place] [phone] 10/16/2023 Ancillary Procedure X-Ray Outpatient Meryl Kim Kumar MD 7:30 AM INDUSTRIAL MAINTENANCE MECHANIC [address] 1515 [facility], [address]th [place] [address] 10/16/2023 Appointment Cardiopulmonary Center - Drea Gillespie MD 8:00 AM INDUSTRIAL MAINTENANCE MECHANIC Pulmonology Lab [address] Main Bldg, 6th Floor [place] [address] [place] [address] 10/16/2023 Appointment Cardiopulmonary Center - Drea Gillespie MD 9:00 AM INDUSTRIAL MAINTENANCE MECHANIC Pulmonology Lab [address] Main Bldg, 6th Floor [place] [address] [place] [address] [phone] 10/16/2023 Follow-Up Cardiopulmonary Center - Radha Lombardo [place], 2:00 PM INDUSTRIAL MAINTENANCE MECHANIC Pulmonology Medicine DENTAL ASSISTANT INSTRUCTOR [address] Main [facility], 6th [place] [address] [phone] 12/09/2023 Consult Internal Medicine Center Hiram Horowitz MD 10:30 AM INDUSTRIAL MAINTENANCE MECHANIC - Rheumatology [address] [facility], 6th [facility] [place] [address] [place] [address] [phone] Health Maintenance Due Date Last Done Comments COVID-19 Vaccination (3 - Moderna risk 01/31/2021 1, 12/14/2020 series) Medical Devices Implanted Type Area Scaler Packer Device Shelf Model / Identifier Expiration Serial / Date Lot Metal Object Metal Right: Object Arm Description: Pradeep implanted approximately around January 2023 due to broken bone per patient report. Uretheral Stent Stent Description: CLEAR TO SCAN UP TO 3T PER ATTENDING RADIOLOGIST DR. Mejia 07/24/23 Procedures Procedure Name Priority Date/Time Associated Comments Diagnosis POC GLUCOSE SCREEN Routine 09/03/2023 8:27 Result s for AM CDT this procedure are in the results section. OSCILLATORY PEP Routine 09/02/2023 10:37 PM CDT OSCILLATORY PEP Routine 09/02/2023 10:[address] CHEST W CONTRAST STAT 09/02/2023 3:27 Resul ts for PM CDT this procedure are in the results section. POC GLUCOSE SCREEN Routine 09/02/2023 8:19 Result s for AM CDT this procedure are in the results section. POC GLUCOSE SCREEN Routine 09/01/2023 8:37 Result s for PM CDT this procedure are in the results section. POC GLUCOSE SCREEN Routine 09/01/2023 12:10 Resul ts for PM CDT this procedure are in the results section. POC GLUCOSE SCREEN Routine 09/01/2023 7:26 Result s for AM CDT this procedure are in the results section. PHOSPHORUS LEVEL Routine 09/01/2023 6:56 Results for AM CDT this procedure are in the results section. MAGNESIUM LEVEL Routine 09/01/2023 6:56 Results f or AM CDT this procedure are in the results section. COMPREHENSIVE METABOLIC Routine 09/01/2023 6:56 R esults for PANEL AM CDT this procedure are in the results section. .CBC Routine 09/01/2023 6:55 Results for AM CDT this procedure are in the results section. COMPLETE BLOOD COUNT W/ Routine 09/01/2023 6:55 R esults for DIFFERENTIAL AM CDT this procedure are in the results section. POC GLUCOSE SCREEN Routine 08/31/2023 11:39 Resul ts for PM CDT this procedure are in the results section. POC GLUCOSE SCREEN Routine 08/31/2023 8:12 Result s for PM CDT this procedure are in the results section. US ARM VENOUS DOPPLER Routine 08/31/2023 7:38 Res ults for RIGHT PM CDT this procedure are in the results section. BLOOD CULTURE Routine 08/31/2023 4:28 PM CDT POC GLUCOSE SCREEN Routine 08/31/2023 2:23 Result s for PM CDT this procedure are in the results section. POC GLUCOSE SCREEN Routine 08/31/2023 9:24 Result s for AM CDT this procedure are in the results section. XR CHEST 1 VW PORTABLE Routine 08/31/2023 9:16 Re sults for AM CDT this procedure are in the results section. NT PRO BNP Add-On 08/31/2023 7:22 Results for AM CDT this procedure are in the results section. .CBC Routine 08/31/2023 7:22 Results for AM CDT this procedure are in the results section. PHOSPHORUS LEVEL Routine 08/31/2023 7:22 Results for AM CDT this procedure are in the results section. MAGNESIUM LEVEL Routine 08/31/2023 7:22 Results f or AM CDT this procedure are in the results section. COMPREHENSIVE METABOLIC Routine 08/31/2023 7:22 R esults for PANEL AM CDT this procedure are in the results section. COMPLETE BLOOD COUNT W/ Routine 08/31/2023 7:22 R esults for DIFFERENTIAL AM CDT this procedure are in the results section. US LEG VENOUS DOPPLER Routine 08/31/2023 12:18 Re sults for RIGHT AM CDT this procedure are in the results section. POC GLUCOSE SCREEN Routine 08/30/2023 10:33 Resul ts for PM CDT this procedure are in the results section. POC GLUCOSE SCREEN Routine 08/30/2023 6:11 Result s for PM CDT this procedure are in the results section. POC GLUCOSE SCREEN Routine 08/30/2023 11:42 Resul ts for AM CDT this procedure are in the results section. .CBC Routine 08/30/2023 6:02 Results for AM CDT this procedure are in the results section. PHOSPHORUS LEVEL Routine 08/30/2023 6:02 Results for AM CDT this procedure are in the results section. MAGNESIUM LEVEL Routine 08/30/2023 6:02 Results f or AM CDT this procedure are in the results section. COMPREHENSIVE METABOLIC Routine 08/30/2023 6:02 R esults for PANEL AM CDT this procedure are in the results section. COMPLETE BLOOD COUNT W/ Routine 08/30/2023 6:02 R esults for DIFFERENTIAL AM CDT this procedure are in the results section. POC GLUCOSE SCREEN Routine 08/29/2023 11:31 Resul ts for PM CDT this procedure are in the results section. POC GLUCOSE SCREEN Routine 08/29/2023 6:44 Result s for PM CDT this procedure are in the results section. POC GLUCOSE SCREEN Routine 08/29/2023 1:10 Result s for PM CDT this procedure are in the results section. GENERAL LABORATORY ADD Routine 08/29/2023 11:32 R esults for ON TEST AM CDT this procedure are in the results section. HEMOGLOBIN A1C AM 08/29/2023 7:12 Results fo r AM CDT this procedure are in the results section. FRACTIONATED BILIRUBIN AM 08/29/2023 7:12 Re sults for AM CDT this procedure are in the results section. TOTAL PROTEIN AM 08/29/2023 7:12 Results for AM CDT this procedure are in the results section. ASPARTATE AM 08/29/2023 7:12 Results for AMINOTRANSFERASE AM CDT this proced ure are in the results section. ALANINE AM 08/29/2023 7:12 Results for AMINOTRANSFERASE AM CDT this proced ure are in the results section. ALKALINE PHOSPHATASE AM 08/29/2023 7:12 Resu lts for AM CDT this procedure are in the results section. ALBUMIN LEVEL AM 08/29/2023 7:12 Results for AM CDT this procedure are in the results section. CALCIUM LEVEL AM 08/29/2023 7:12 Results for AM CDT this procedure are in the results section. .GLOMERULAR FILTRATION AM 08/29/2023 7:12 Re sults for RATE AM CDT this procedure are in the results section. SERUM CREATININE AM 08/29/2023 7:12 Results for AM CDT this procedure are in the results section. ELECTROLYTE PANEL AM 08/29/2023 7:12 Results for AM CDT this procedure are in the results section. BLOOD UREA NITROGEN AM 08/29/2023 7:12 Resul ts for AM CDT this procedure are in the results section. GLUCOSE LEVEL AM 08/29/2023 7:12 Results for AM CDT this procedure are in the results section. DIFFERENTIAL AM 08/29/2023 7:12 Results for AM CDT this procedure are in the results section. .CBC AM 08/29/2023 7:12 Results for AM CDT this procedure are in the results section. PHOSPHORUS LEVEL AM 08/29/2023 7:12 Results for AM CDT this procedure are in the results section. MAGNESIUM LEVEL AM 08/29/2023 7:12 Results f or AM CDT this procedure are in the results section. COMPREHENSIVE METABOLIC AM 08/29/2023 7:12 PANEL AM CDT COMPLETE BLOOD COUNT W/ AM 08/29/2023 7:12 DIFFERENTIAL AM CDT PREPARE RBC Routine 08/28/2023 12:26 Results for PM CDT this procedure are in the results section. CLOT EXPIRATION DATE STAT 08/28/2023 11:24 Res ults for AM CDT this procedure are in the results section. TMP INTERPRETATION STAT 08/28/2023 11:24 Resul ts for ANTIBODY SCREEN AM CDT this procedu re NEGATIVE are in the results section. ANTIBODY SCREEN STAT 08/28/2023 11:24 Results for AM CDT this procedure are in the results section. ABORH STAT 08/28/2023 11:24 Results for AM CDT this procedure are in the results section. TYPE AND SCREEN STAT 08/28/2023 11:24 AM CDT FRACTIONATED BILIRUBIN AM 08/28/2023 5:30 Re sults for AM CDT this procedure are in the results section. TOTAL PROTEIN AM 08/28/2023 5:30 Results for AM CDT this procedure are in the results section. ASPARTATE AM 08/28/2023 5:30 Results for AMINOTRANSFERASE AM CDT this proced ure are in the results section. ALANINE AM 08/28/2023 5:30 Results for AMINOTRANSFERASE AM CDT this proced ure are in the results section. ALKALINE PHOSPHATASE AM 08/28/2023 5:30 Resu lts for AM CDT this procedure are in the results section. ALBUMIN LEVEL AM 08/28/2023 5:30 Results for AM CDT this procedure are in the results section. CALCIUM LEVEL AM 08/28/2023 5:30 Results for AM CDT this procedure are in the results section. .GLOMERULAR FILTRATION AM 08/28/2023 5:30 Re sults for RATE AM CDT this procedure are in the results section. SERUM CREATININE AM 08/28/2023 5:30 Results for AM CDT this procedure are in the results section. ELECTROLYTE PANEL AM 08/28/2023 5:30 Results for AM CDT this procedure are in the results section. BLOOD UREA NITROGEN AM 08/28/2023 5:30 Resul ts for AM CDT this procedure are in the results section. GLUCOSE LEVEL AM 08/28/2023 5:30 Results for AM CDT this procedure are in the results section. DIFFERENTIAL AM 08/28/2023 5:30 Results for AM CDT this procedure are in the results section. .CBC AM 08/28/2023 5:30 Results for AM CDT this procedure are in the results section. PHOSPHORUS LEVEL AM 08/28/2023 5:30 Results for AM CDT this procedure are in the results section. MAGNESIUM LEVEL AM 08/28/2023 5:30 Results f or AM CDT this procedure are in the results section. COMPREHENSIVE METABOLIC AM 08/28/2023 5:30 PANEL AM CDT COMPLETE BLOOD COUNT W/ AM 08/28/2023 5:30 DIFFERENTIAL AM CDT [facility] Routine 08/27/2023 3:58 Infiltrating duct Result s for PM CDT and lobular this procedure carcinoma of are in the breast, NOS results <Female; Right> section. NM BONE SCAN WHOLE BODY Routine 08/27/2023 12:29 Results for PM CDT this procedure are in the results section. FRACTIONATED BILIRUBIN AM 08/27/2023 6:09 Re sults for AM CDT this procedure are in the results section. TOTAL PROTEIN AM 08/27/2023 6:09 Results for AM CDT this procedure are in the results section. ASPARTATE AM 08/27/2023 6:09 Results for AMINOTRANSFERASE AM CDT this proced ure are in the results section. ALANINE AM 08/27/2023 6:09 Results for AMINOTRANSFERASE AM CDT this proced ure are in the results section. ALKALINE PHOSPHATASE AM 08/27/2023 6:09 Resu lts for AM CDT this procedure are in the results section. ALBUMIN LEVEL AM 08/27/2023 6:09 Results for AM CDT this procedure are in the results section. CALCIUM LEVEL AM 08/27/2023 6:09 Results for AM CDT this procedure are in the results section. .GLOMERULAR FILTRATION AM 08/27/2023 6:09 Re sults for RATE AM CDT this procedure are in the results section. SERUM CREATININE AM 08/27/2023 6:09 Results for AM CDT this procedure are in the results section. ELECTROLYTE PANEL AM 08/27/2023 6:09 Results for AM CDT this procedure are in the results section. BLOOD UREA NITROGEN AM 08/27/2023 6:09 Resul ts for AM CDT this procedure are in the results section. GLUCOSE LEVEL AM 08/27/2023 6:09 Results for AM CDT this procedure are in the results section. DIFFERENTIAL AM 08/27/2023 6:09 Results for AM CDT this procedure are in the results section. .CBC AM 08/27/2023 6:09 Results for AM CDT this procedure are in the results section. PHOSPHORUS LEVEL AM 08/27/2023 6:09 Results for AM CDT this procedure are in the results section. MAGNESIUM LEVEL AM 08/27/2023 6:09 Results f or AM CDT this procedure are in the results section. COMPREHENSIVE METABOLIC AM 08/27/2023 6:09 PANEL AM CDT COMPLETE BLOOD COUNT W/ AM 08/27/2023 6:[address] BREAST SIMULATION Routine 08/26/2023 10:15 Metastatic Res ults for WITHOUT CONTRAST AM CDT malignant neoplasm this procedure to bone are in the results section. FRACTIONATED BILIRUBIN AM 08/26/2023 5:36 Re sults for AM CDT this procedure are in the results section. TOTAL PROTEIN AM 08/26/2023 5:36 Results for AM CDT this procedure are in the results section. ASPARTATE AM 08/26/2023 5:36 Results for AMINOTRANSFERASE AM CDT this proced ure are in the results section. ALANINE AM 08/26/2023 5:36 Results for AMINOTRANSFERASE AM CDT this proced ure are in the results section. ALKALINE PHOSPHATASE AM 08/26/2023 5:36 Resu lts for AM CDT this procedure are in the results section. ALBUMIN LEVEL AM 08/26/2023 5:36 Results for AM CDT this procedure are in the results section. CALCIUM LEVEL AM 08/26/2023 5:36 Results for AM CDT this procedure are in the results section. .GLOMERULAR FILTRATION AM 08/26/2023 5:36 Re sults for RATE AM CDT this procedure are in the results section. SERUM CREATININE AM 08/26/2023 5:36 Results for AM CDT this procedure are in the results section. ELECTROLYTE PANEL AM 08/26/2023 5:36 Results for AM CDT this procedure are in the results section. BLOOD UREA NITROGEN AM 08/26/2023 5:36 Resul ts for AM CDT this procedure are in the results section. GLUCOSE LEVEL AM 08/26/2023 5:36 Results for AM CDT this procedure are in the results section. DIFFERENTIAL AM 08/26/2023 5:36 Results for AM CDT this procedure are in the results section. .CBC AM 08/26/2023 5:36 Results for AM CDT this procedure are in the results section. PHOSPHORUS LEVEL AM 08/26/2023 5:36 Results for AM CDT this procedure are in the results section. MAGNESIUM LEVEL AM 08/26/2023 5:36 Results f or AM CDT this procedure are in the results section. COMPREHENSIVE METABOLIC AM 08/26/2023 5:36 PANEL AM CDT COMPLETE BLOOD COUNT W/ AM 08/26/2023 5:36 DIFFERENTIAL AM CDT EKG, 12-LEAD (PORTABLE) STAT 08/26/2023 CT ABDOMEN PELVIS W WO Routine 08/25/2023 11:21 R esults for CONTRAST PM CDT this procedure are in the results section. CT HEAD WO CONTRAST STAT 08/25/2023 11:15 Resu lts for PM CDT this procedure are in the results section. URINALYSIS WITH STAT 08/25/2023 9:08 Results f or MICROSCOPIC PM CDT this procedure are in the results section. URINE CULTURE Routine 08/25/2023 9:08 Results for PM CDT this procedure are in the results section. LACTIC ACID, VENOUS STAT 08/25/2023 8:45 Resul ts for PM CDT this procedure are in the results section. CMV QUANT PCR, PLASMA Routine 08/25/2023 8:45 Res ults for PM CDT this procedure are in the results section. BLOOD CULTURE Routine 08/25/2023 8:45 Results for PM CDT this procedure are in the results section. FUNGITELL, SERUM Routine 08/25/2023 8:45 Results for PM CDT this procedure are in the results section. XR CHEST 1 VW Routine 08/25/2023 8:31 Results for PM CDT this procedure are in the results section. BODY FLUID DIFF PATH Routine 08/25/2023 12:05 Res ults for REVIEW PM CDT this procedure are in the results section. BODY FLUID DIFFERENTIAL Routine 08/25/2023 12:05 Results for PM CDT this procedure are in the results section. CELL COUNT BODY FLUID Routine 08/25/2023 12:05 Re sults for PM CDT this procedure are in the results section. CMV QUANT PCR, BAL Routine 08/25/2023 12:05 Resul ts for PM CDT this procedure are in the results section. PNEUMOCYSTIS QUANT PCR, Routine 08/25/2023 12:05 Results for BAL PM CDT this procedure are in the results section. ASPERGILLUS ANTIGEN, Routine 08/25/2023 12:05 Res ults for BAL PM CDT this procedure are in the results section. COVID-19 (SARS COV-2) Routine 08/25/2023 12:05 Re sults for PCR, LOWER RESPIRATORY PM CDT this procedure are in the results section. RESPIRATORY VIRAL Routine 08/25/2023 12:05 Result s for PANEL, SEND OUT PM CDT this procedu re are in the results section. AFB CULTURE W/ SMEAR Routine 08/25/2023 12:05 PM CDT FUNGAL CULTURE W/ SMEAR Routine 08/25/2023 12:05 PM CDT LEGIONELLA CULTURE Routine 08/25/2023 12:05 Resul ts for PM CDT this procedure are in the results section. LOWER RESPIRATORY Routine 08/25/2023 12:05 Result s for CULTURE W/ GRAM STAIN PM CDT this p rocedure are in the results section. CELL COUNT W/ DIFF BODY Routine 08/25/2023 12:05 FLUID PM CDT CYTOLOGY NON-INDUSTRIAL ORDER CLERK Routine 08/25/2023 11:59 Pulmonary Results for INTERPRETATION AM CDT infiltrate this procedur e are in the results section. FLEXIBLE BRONCHOSCOPY 08/25/2023 11:28 Pulmonary WITH BRONCHIAL ALVEOLAR AM CDT infiltrate [place] FRACTIONATED BILIRUBIN AM 08/25/2023 7:48 Re sults for AM CDT this procedure are in the results section. TOTAL PROTEIN AM 08/25/2023 7:48 Results for AM CDT this procedure are in the results section. ASPARTATE AM 08/25/2023 7:48 Results for AMINOTRANSFERASE AM CDT this proced ure are in the results section. ALANINE AM 08/25/2023 7:48 Results for AMINOTRANSFERASE AM CDT this proced ure are in the results section. ALKALINE PHOSPHATASE AM 08/25/2023 7:48 Resu lts for AM CDT this procedure are in the results section. ALBUMIN LEVEL AM 08/25/2023 7:48 Results for AM CDT this procedure are in the results section. CALCIUM LEVEL AM 08/25/2023 7:48 Results for AM CDT this procedure are in the results section. .GLOMERULAR FILTRATION AM 08/25/2023 7:48 Re sults for RATE AM CDT this procedure are in the results section. SERUM CREATININE AM 08/25/2023 7:48 Results for AM CDT this procedure are in the results section. ELECTROLYTE PANEL AM 08/25/2023 7:48 Results for AM CDT this procedure are in the results section. BLOOD UREA NITROGEN AM 08/25/2023 7:48 Resul ts for AM CDT this procedure are in the results section. GLUCOSE LEVEL AM 08/25/2023 7:48 Results for AM CDT this procedure are in the results section. DIFFERENTIAL AM 08/25/2023 7:48 Results for AM CDT this procedure are in the results section. .CBC AM 08/25/2023 7:48 Results for AM CDT this procedure are in the results section. VANCOMYCIN LEVEL TROUGH Timed Study 08/25/2023 7:48 R esults for AM CDT this procedure are in the results section. PHOSPHORUS LEVEL AM 08/25/2023 7:48 Results for AM CDT this procedure are in the results section. MAGNESIUM LEVEL AM 08/25/2023 7:48 Results f or AM CDT this procedure are in the results section. COMPREHENSIVE METABOLIC AM 08/25/2023 7:48 PANEL AM CDT COMPLETE BLOOD COUNT W/ AM 08/25/2023 7:48 DIFFERENTIAL AM CDT LEGIONELLA ANTIGEN, Routine 08/24/2023 6:50 Resul ts for URINE PM CDT this procedure are in the results section. STREPTOCOCCUS Routine 08/24/2023 6:50 Results for PNEUMONIAE ANTIGEN, PM CDT this pro cedure URINE are in the results section. MRSA SCREENING CULTURE Routine 08/24/2023 3:04 Re sults for PM CDT this procedure are in the results section. RESPIRATORY MULTIPLEX Routine 08/24/2023 3:04 Res ults for PCR PANEL, PM CDT this procedure NASOPHARYNGEAL SWAB are in t he results section. URINALYSIS MICROSCOPIC Routine 08/24/2023 11:24 R esults for EXAM AM CDT this procedure are in the results section. URINALYSIS WITH Routine 08/24/2023 11:24 Results for MICROSCOPIC IF AM CDT this procedur e INDICATED are in the results section. URINE CULTURE Routine 08/24/2023 11:24 Results fo r AM CDT this procedure are in the results section. FRACTIONATED BILIRUBIN Now 08/24/2023 7:49 Re sults for AM CDT this procedure are in the results section. TOTAL PROTEIN Now 08/24/2023 7:49 Results for AM CDT this procedure are in the results section. ASPARTATE Now 08/24/2023 7:49 Results for AMINOTRANSFERASE AM CDT this proced ure are in the results section. ALANINE Now 08/24/2023 7:49 Results for AMINOTRANSFERASE AM CDT this proced ure are in the results section. ALKALINE PHOSPHATASE Now 08/24/2023 7:49 Resu lts for AM CDT this procedure are in the results section. ALBUMIN LEVEL Now 08/24/2023 7:49 Results for AM CDT this procedure are in the results section. CALCIUM LEVEL Now 08/24/2023 7:49 Results for AM CDT this procedure are in the results section. .GLOMERULAR FILTRATION Now 08/24/2023 7:49 Re sults for RATE AM CDT this procedure are in the results section. SERUM CREATININE Now 08/24/2023 7:49 Results for AM CDT this procedure are in the results section. ELECTROLYTE PANEL Now 08/24/2023 7:49 Results for AM CDT this procedure are in the results section. BLOOD UREA NITROGEN Now 08/24/2023 7:49 Resul ts for AM CDT this procedure are in the results section. GLUCOSE LEVEL Now 08/24/2023 7:49 Results for AM CDT this procedure are in the results section. DIFFERENTIAL Now 08/24/2023 7:49 Results for AM CDT this procedure are in the results section. .CBC Now 08/24/2023 7:49 Results for AM CDT this procedure are in the results section. PHOSPHORUS LEVEL Now 08/24/2023 7:49 Results for AM CDT this procedure are in the results section. MAGNESIUM LEVEL Now 08/24/2023 7:49 Results f or AM CDT this procedure are in the results section. COMPREHENSIVE METABOLIC Now 08/24/2023 7:49 PANEL AM CDT COMPLETE BLOOD COUNT W/ Now 08/24/2023 7:49 DIFFERENTIAL AM CDT APTT STAT 08/23/2023 4:32 Results for PM CDT this procedure are in the results section. PROTHROMBIN TIME STAT 08/23/2023 4:32 Results for PM CDT this procedure are in the results section. CT CHEST PULMONARY STAT 08/23/2023 1:29 Result s for EMBOLISM W CONTRAST PM CDT this pro cedure are in the results section. POC CHEM 8 NO HH Routine 08/23/2023 12:33 Results for PM CDT this procedure are in the results section. TMP INTERPRETATION STAT 08/23/2023 11:53 Resul ts for ANTIBODY SCREEN AM CDT this procedu re NEGATIVE are in the results section. CLOT EXPIRATION DATE STAT 08/23/2023 11:53 Res ults for AM CDT this procedure are in the results section. ANTIBODY SCREEN STAT 08/23/2023 11:53 Results for AM CDT this procedure are in the results section. ABORH STAT 08/23/2023 11:53 Results for AM CDT this procedure are in the results section. NT PRO BNP Routine 08/23/2023 11:53 Results for AM CDT this procedure are in the results section. CARDIAC PANEL Timed Study 08/23/2023 11:53 Results fo r AM CDT this procedure are in the results section. TYPE AND SCREEN STAT 08/23/2023 11:53 AM CDT XR CHEST 2 VW Routine 08/22/2023 4:31 Infiltrating duct Result s for PM CDT and lobular this procedure carcinoma of are in the breast, NOS results <Female; Right> section. Metastatic malignant neoplasm to bone XR HIP 2 OR 3 VW W Routine 08/22/2023 4:31 Infil[address]ating duct R esults for PELVIS RIGHT PM CDT and lobular this procedure carcinoma of are in the breast, NOS results <Female; Right> section. Metastatic malignant neoplasm to bone ELECTROLYTE PANEL Routine 08/22/2023 12:33 Metastatic Result s for PM CDT malignant neoplasm this proc edure to bone are in the Estrogen receptor results positive status section. (ER+) DIFFERENTIAL Routine 08/22/2023 12:33 Metastatic Results for PM CDT malignant neoplasm this proc edure to bone are in the Estrogen receptor results positive status section. (ER+) .CBC Routine 08/22/2023 12:33 Metastatic Results for PM CDT malignant neoplasm this proc edure to bone are in the Estrogen receptor results positive status section. (ER+) FRACTIONATED BILIRUBIN Routine 08/22/2023 12:33 Metastatic R esults for PM CDT malignant neoplasm this proc edure to bone are in the Estrogen receptor results positive status section. (ER+) TOTAL PROTEIN Routine 08/22/2023 12:33 Metastatic Results fo r PM CDT malignant neoplasm this proc edure to bone are in the Estrogen receptor results positive status section. (ER+) ASPARTATE Routine 08/22/2023 12:33 Metastatic Results for AMINOTRANSFERASE PM CDT malignant neoplasm this procedure to bone are in the Estrogen receptor results positive status section. (ER+) ALANINE Routine 08/22/2023 12:33 Metastatic Results for AMINOTRANSFERASE PM CDT malignant neoplasm this procedure to bone are in the Estrogen receptor results positive status section. (ER+) ALKALINE PHOSPHATASE Routine 08/22/2023 12:33 Metastatic Res ults for PM CDT malignant neoplasm this proc edure to bone are in the Estrogen receptor results positive status section. (ER+) ALBUMIN LEVEL Routine 08/22/2023 12:33 Metastatic Results fo r PM CDT malignant neoplasm this proc edure to bone are in the Estrogen receptor results positive status section. (ER+) CALCIUM LEVEL Routine 08/22/2023 12:33 Metastatic Results fo r PM CDT malignant neoplasm this proc edure to bone are in the Estrogen receptor results positive status section. (ER+) .GLOMERULAR FILTRATION Routine 08/22/2023 12:33 Metastatic R esults for RATE PM CDT malignant neoplasm this proc edure to bone are in the Estrogen receptor results positive status section. (ER+) SERUM CREATININE Routine 08/22/2023 12:33 Metastatic Results for PM CDT malignant neoplasm this proc edure to bone are in the Estrogen receptor results positive status section. (ER+) BLOOD UREA NITROGEN Routine 08/22/2023 12:33 Metastatic Resu lts for PM CDT malignant neoplasm this proc edure to bone are in the Estrogen receptor results positive status section. (ER+) GLUCOSE LEVEL Routine 08/22/2023 12:33 Metastatic Results fo r PM CDT malignant neoplasm this proc edure to bone are in the Estrogen receptor results positive status section. (ER+) URIC ACID Routine 08/22/2023 12:33 Metastatic Results for PM CDT malignant neoplasm this proc edure to bone are in the Estrogen receptor results positive status section. (ER+) PHOSPHORUS LEVEL Routine 08/22/2023 12:33 Metastatic Results for PM CDT malignant neoplasm this proc edure to bone are in the Estrogen receptor results positive status section. (ER+) MAGNESIUM LEVEL Routine 08/22/2023 12:33 Metastatic Results for PM CDT malignant neoplasm this proc edure to bone are in the Estrogen receptor results positive status section. (ER+) LACTATE DEHYDROGENASE Routine 08/22/2023 12:33 Metastatic Re sults for PM CDT malignant neoplasm this proc edure to bone are in the Estrogen receptor results positive status section. (ER+) COMPLETE BLOOD COUNT W/ Routine 08/22/2023 12:33 Metastatic DIFFERENTIAL PM CDT malignant neoplasm to bone Estrogen receptor positive status (ER+) COMPREHENSIVE METABOLIC Routine 08/22/2023 12:33 Metastatic PANEL PM CDT malignant neoplasm to bone Estrogen receptor positive status (ER+) ECHOCARDIOGRAM 2D Routine 08/14/2023 12:16 Pre-surgery Result s for COMPLETE W CONTRAST PM CDT evaluation this pro cedure are in the results section. CTRC EKG, 12-LEAD Routine 08/14/2023 Metastatic malignant neoplasm to bone Estrogen receptor positive status (ER+) GENERAL LABORATORY ADD STAT 08/11/2023 4:[address] Results for ON TEST PM CDT and lobular this procedure carcinoma of are in the breast, NOS results <Female; Right> section. GENERAL LABORATORY ADD STAT 08/11/2023 4:[address] Results for ON TEST PM CDT and lobular this procedure carcinoma of are in the breast, NOS results <Female; Right> section. CARCINOEMBRYONIC Routine 08/11/2023 1:31 Results for ANTIGEN PM CDT this procedure are in the results section. CARBOHYDRATE ANTIGEN Routine 08/11/2023 1:31 Resu lts for 15-3 PM CDT this procedure are in the results section. FRACTIONATED BILIRUBIN Routine 08/11/2023 1:[address] Results for PM CDT and lobular this procedure carcinoma of are in the breast, NOS results <Female; Right> section. TOTAL PROTEIN Routine 08/11/2023 1:[address] duct Result s for PM CDT and lobular this procedure carcinoma of are in the breast, NOS results <Female; Right> section. ASPARTATE Routine 08/11/2023 1:[address] Results for AMINOTRANSFERASE PM CDT and lobular this proced ure carcinoma of are in the breast, NOS results <Female; Right> section. ALANINE Routine 08/11/2023 1:[address] Results for AMINOTRANSFERASE PM CDT and lobular this proced ure carcinoma of are in the breast, NOS results <Female; Right> section. ALKALINE PHOSPHATASE Routine 08/11/2023 1:[address] duct Results for PM CDT and lobular this procedure carcinoma of are in the breast, NOS results <Female; Right> section. ALBUMIN LEVEL Routine 08/11/2023 1:31 [address] duct Result s for PM CDT and lobular this procedure carcinoma of are in the breast, NOS results <Female; Right> section. CALCIUM LEVEL Routine 08/11/2023 1:31 [address] duct Result s for PM CDT and lobular this procedure carcinoma of are in the breast, NOS results <Female; Right> section. .GLOMERULAR FILTRATION Routine 08/11/2023 1:[address] Results for RATE PM CDT and lobular this procedure carcinoma of are in the breast, NOS results <Female; Right> section. SERUM CREATININE Routine 08/11/2023 1:[address] Res ults for PM CDT and lobular this procedure carcinoma of are in the breast, NOS results <Female; Right> section. ELECTROLYTE PANEL Routine 08/11/2023 1:[address] Re sults for PM CDT and lobular this procedure carcinoma of are in the breast, NOS results <Female; Right> section. BLOOD UREA NITROGEN Routine 08/11/2023 1:[address] Results for PM CDT and lobular this procedure carcinoma of are in the breast, NOS results <Female; Right> section. GLUCOSE LEVEL Routine 08/11/2023 1:31 [address] duct Result s for PM CDT and lobular this procedure carcinoma of are in the breast, NOS results <Female; Right> section. DIFFERENTIAL Routine 08/11/2023 1:[address] Results for PM CDT and lobular this procedure carcinoma of are in the breast, NOS results <Female; Right> section. .CBC Routine 08/11/2023 1:[address] Results for PM CDT and lobular this procedure carcinoma of are in the breast, NOS results <Female; Right> section. COMPREHENSIVE METABOLIC Routine 08/11/2023 1:31 In[address] d uct PANEL PM CDT and lobular carcinoma of breast, NOS <Female; Right> COMPLETE BLOOD COUNT W/ Routine 08/11/2023 1:31 Infiltrating d uct DIFFERENTIAL PM CDT and lobular carcinoma of breast, NOS <Female; Right> FRACTIONATED BILIRUBIN AM 08/05/2023 6:59 Re sults for AM CDT this procedure are in the results section. TOTAL PROTEIN AM 08/05/2023 6:59 Results for AM CDT this procedure are in the results section. ASPARTATE AM 08/05/2023 6:59 Results for AMINOTRANSFERASE AM CDT this proced ure are in the results section. ALANINE AM 08/05/2023 6:59 Results for AMINOTRANSFERASE AM CDT this proced ure are in the results section. ALKALINE PHOSPHATASE AM 08/05/2023 6:59 Resu lts for AM CDT this procedure are in the results section. ALBUMIN LEVEL AM 08/05/2023 6:59 Results for AM CDT this procedure are in the results section. CALCIUM LEVEL AM 08/05/2023 6:59 Results for AM CDT this procedure are in the results section. .GLOMERULAR FILTRATION AM 08/05/2023 6:59 Re sults for RATE AM CDT this procedure are in the results section. SERUM CREATININE AM 08/05/2023 6:59 Results for AM CDT this procedure are in the results section. ELECTROLYTE PANEL AM 08/05/2023 6:59 Results for AM CDT this procedure are in the results section. BLOOD UREA NITROGEN AM 08/05/2023 6:59 Resul ts for AM CDT this procedure are in the results section. GLUCOSE LEVEL AM 08/05/2023 6:59 Results for AM CDT this procedure are in the results section. DIFFERENTIAL AM 08/05/2023 6:59 Results for AM CDT this procedure are in the results section. .CBC AM 08/05/2023 6:59 Results for AM CDT this procedure are in the results section. PHOSPHORUS LEVEL AM 08/05/2023 6:59 Results for AM CDT this procedure are in the results section. MAGNESIUM LEVEL AM 08/05/2023 6:59 Results f or AM CDT this procedure are in the results section. COMPREHENSIVE METABOLIC AM 08/05/2023 6:59 PANEL AM CDT COMPLETE BLOOD COUNT W/ AM 08/05/2023 6:59 DIFFERENTIAL AM CDT FRACTIONATED BILIRUBIN AM 08/04/2023 6:33 Re sults for AM CDT this procedure are in the results section. TOTAL PROTEIN AM 08/04/2023 6:33 Results for AM CDT this procedure are in the results section. ASPARTATE AM 08/04/2023 6:33 Results for AMINOTRANSFERASE AM CDT this proced ure are in the results section. ALANINE AM 08/04/2023 6:33 Results for AMINOTRANSFERASE AM CDT this proced ure are in the results section. ALKALINE PHOSPHATASE AM 08/04/2023 6:33 Resu lts for AM CDT this procedure are in the results section. ALBUMIN LEVEL AM 08/04/2023 6:33 Results for AM CDT this procedure are in the results section. CALCIUM LEVEL AM 08/04/2023 6:33 Results for AM CDT this procedure are in the results section. .GLOMERULAR FILTRATION AM 08/04/2023 6:33 Re sults for RATE AM CDT this procedure are in the results section. SERUM CREATININE AM 08/04/2023 6:33 Results for AM CDT this procedure are in the results section. ELECTROLYTE PANEL AM 08/04/2023 6:33 Results for AM CDT this procedure are in the results section. BLOOD UREA NITROGEN AM 08/04/2023 6:33 Resu lts for AM CDT this procedure are in the results section. GLUCOSE LEVEL AM 08/04/2023 6:33 Results for AM CDT this procedure are in the results section. DIFFERENTIAL AM 08/04/2023 6:33 Results for AM CDT this procedure are in the results section. .CBC AM 08/04/2023 6:33 Results for AM CDT this procedure are in the results section. PHOSPHORUS LEVEL AM 08/04/2023 6:33 Results for AM CDT this procedure are in the results section. MAGNESIUM LEVEL AM 08/04/2023 6:33 Results f or AM CDT this procedure are in the results section. COMPREHENSIVE METABOLIC AM 08/04/2023 6:33 PANEL AM CDT COMPLETE BLOOD COUNT W/ AM 08/04/2023 6:33 DIFFERENTIAL AM CDT FRACTIONATED BILIRUBIN AM 08/03/2023 7:06 Re sults for AM CDT this procedure are in the results section. TOTAL PROTEIN AM 08/03/2023 7:06 Results for AM CDT this procedure are in the results section. ASPARTATE AM 08/03/2023 7:06 Results for AMINOTRANSFERASE AM CDT this proced ure are in the results section. ALANINE AM 08/03/2023 7:06 Results for AMINOTRANSFERASE AM CDT this proced ure are in the results section. ALKALINE PHOSPHATASE AM 08/03/2023 7:06 Resu lts for AM CDT this procedure are in the results section. ALBUMIN LEVEL AM 08/03/2023 7:06 Results for AM CDT this procedure are in the results section. CALCIUM LEVEL AM 08/03/2023 7:06 Results for AM CDT this procedure are in the results section. .GLOMERULAR FILTRATION AM 08/03/2023 7:06 Re sults for RATE AM CDT this procedure are in the results section. SERUM CREATININE AM 08/03/2023 7:06 Results for AM CDT this procedure are in the results section. ELECTROLYTE PANEL AM 08/03/2023 7:06 Results for AM CDT this procedure are in the results section. BLOOD UREA NITROGEN AM 08/03/2023 7:06 Resul ts for AM CDT this procedure are in the results section. GLUCOSE LEVEL AM 08/03/2023 7:06 Results for AM CDT this procedure are in the results section. DIFFERENTIAL AM 08/03/2023 7:06 Results for AM CDT this procedure are in the results section. .CBC AM 08/03/2023 7:06 Results for AM CDT this procedure are in the results section. PHOSPHORUS LEVEL AM 08/03/2023 7:06 Results for AM CDT this procedure are in the results section. MAGNESIUM LEVEL AM 08/03/2023 7:06 Results f or AM CDT this procedure are in the results section. COMPREHENSIVE METABOLIC AM 08/03/2023 7:06 PANEL AM CDT COMPLETE BLOOD COUNT W/ AM 08/03/2023 7:06 DIFFERENTIAL AM CDT FRACTIONATED BILIRUBIN AM 08/02/2023 8:27 Re sults for AM CDT this procedure are in the results section. TOTAL PROTEIN AM 08/02/2023 8:27 Results for AM CDT this procedure are in the results section. ASPARTATE AM 08/02/2023 8:27 Results for AMINOTRANSFERASE AM CDT this proced ure are in the results section. ALANINE AM 08/02/2023 8:27 Results for AMINOTRANSFERASE AM CDT this proced ure are in the results section. ALKALINE PHOSPHATASE AM 08/02/2023 8:27 Resu lts for AM CDT this procedure are in the results section. ALBUMIN LEVEL AM 08/02/2023 8:27 Results for AM CDT this procedure are in the results section. CALCIUM LEVEL AM 08/02/2023 8:27 Results for AM CDT this procedure are in the results section. .GLOMERULAR FILTRATION AM 08/02/2023 8:27 Re sults for RATE AM CDT this procedure are in the results section. SERUM CREATININE AM 08/02/2023 8:27 Results for AM CDT this procedure are in the results section. ELECTROLYTE PANEL AM 08/02/2023 8:27 Results for AM CDT this procedure are in the results section. BLOOD UREA NITROGEN AM 08/02/2023 8:27 Resul ts for AM CDT this procedure are in the results section. GLUCOSE LEVEL AM 08/02/2023 8:27 Results for AM CDT this procedure are in the results section. DIFFERENTIAL AM 08/02/2023 8:27 Results for AM CDT this procedure are in the results section. .CBC AM 08/02/2023 8:27 Results for AM CDT this procedure are in the results section. PHOSPHORUS LEVEL AM 08/02/2023 8:27 Results for AM CDT this procedure are in the results section. MAGNESIUM LEVEL AM 08/02/2023 8:27 Results f or AM CDT this procedure are in the results section. COMPREHENSIVE METABOLIC AM 08/02/2023 8:27 PANEL AM CDT COMPLETE BLOOD COUNT W/ AM 08/02/2023 8:27 DIFFERENTIAL AM CDT FRACTIONATED BILIRUBIN AM 08/01/2023 6:55 Re sults for AM CDT this procedure are in the results section. TOTAL PROTEIN AM 08/01/2023 6:55 Results fo r AM CDT this procedure are in the results section. ASPARTATE AM 08/01/2023 6:55 Results for AMINOTRANSFERASE AM CDT this proced ure are in the results section. ALANINE AM 08/01/2023 6:55 Results for AMINOTRANSFERASE AM CDT this proced ure are in the results section. ALKALINE PHOSPHATASE AM 08/01/2023 6:55 Resu lts for AM CDT this procedure are in the results section. ALBUMIN LEVEL AM 08/01/2023 6:55 Results for AM CDT this procedure are in the results section. CALCIUM LEVEL AM 08/01/2023 6:55 Results for AM CDT this procedure are in the results section. .GLOMERULAR FILTRATION AM 08/01/2023 6:55 Re sults for RATE AM CDT this procedure are in the results section. SERUM CREATININE AM 08/01/2023 6:55 Results for AM CDT this procedure are in the results section. ELECTROLYTE PANEL AM 08/01/2023 6:55 Results for AM CDT this procedure are in the results section. BLOOD UREA NITROGEN AM 08/01/2023 6:55 Resul ts for AM CDT this procedure are in the results section. GLUCOSE LEVEL AM 08/01/2023 6:55 Results for AM CDT this procedure are in the results section. DIFFERENTIAL AM 08/01/2023 6:55 Results for AM CDT this procedure are in the results section. .CBC AM 08/01/2023 6:55 Results for AM CDT this procedure are in the results section. PHOSPHORUS LEVEL AM 08/01/2023 6:55 Results for AM CDT this procedure are in the results section. MAGNESIUM LEVEL AM 08/01/2023 6:55 Results f or AM CDT this procedure are in the results section. COMPREHENSIVE METABOLIC AM 08/01/2023 6:55 PANEL AM CDT COMPLETE BLOOD COUNT W/ AM 08/01/2023 6:55 DIFFERENTIAL AM CDT FRACTIONATED BILIRUBIN AM 07/31/2023 6:39 Re sults for AM CDT this procedure are in the results section. TOTAL PROTEIN AM 07/31/2023 6:39 Results for AM CDT this procedure are in the results section. ASPARTATE AM 07/31/2023 6:39 Results for AMINOTRANSFERASE AM CDT this proced ure are in the results section. ALANINE AM 07/31/2023 6:39 Results for AMINOTRANSFERASE AM CDT this proced ure are in the results section. ALKALINE PHOSPHATASE AM 07/31/2023 6:39 Resu lts for AM CDT this procedure are in the results section. ALBUMIN LEVEL AM 07/31/2023 6:39 Results for AM CDT this procedure are in the results section. CALCIUM LEVEL AM 07/31/2023 6:39 Results for AM CDT this procedure are in the results section. .GLOMERULAR FILTRATION AM 07/31/2023 6:39 Re sults for RATE AM CDT this procedure are in the results section. SERUM CREATININE AM 07/31/2023 6:39 Results for AM CDT this procedure are in the results section. ELECTROLYTE PANEL AM 07/31/2023 6:39 Results for AM CDT this procedure are in the results section. BLOOD UREA NITROGEN AM 07/31/2023 6:39 Resul ts for AM CDT this procedure are in the results section. GLUCOSE LEVEL AM 07/31/2023 6:39 Results for AM CDT this procedure are in the results section. DIFFERENTIAL AM 07/31/2023 6:39 Results for AM CDT this procedure are in the results section. .CBC AM 07/31/2023 6:39 Results for AM CDT this procedure are in the results section. PHOSPHORUS LEVEL AM 07/31/2023 6:39 Results for AM CDT this procedure are in the results section. MAGNESIUM LEVEL AM 07/31/2023 6:39 Results f or AM CDT this procedure are in the results section. COMPREHENSIVE METABOLIC AM 07/31/2023 6:39 PANEL AM CDT COMPLETE BLOOD COUNT W/ AM 07/31/2023 6:39 DIFFERENTIAL AM CDT MRI CERVICAL THORACIC Routine 07/30/2023 11:00 Re sults for LUMBAR SPINE W WO AM CDT this proce dure CONTRAST are in the results section. FRACTIONATED BILIRUBIN AM 07/30/2023 7:24 Re sults for AM CDT this procedure are in the results section. TOTAL PROTEIN AM 07/30/2023 7:24 Results for AM CDT this procedure are in the results section. ASPARTATE AM 07/30/2023 7:24 Results for AMINOTRANSFERASE AM CDT this proced ure are in the results section. ALANINE AM 07/30/2023 7:24 Results for AMINOTRANSFERASE AM CDT this proced ure are in the results section. ALKALINE PHOSPHATASE AM 07/30/2023 7:24 Resu lts for AM CDT this procedure are in the results section. ALBUMIN LEVEL AM 07/30/2023 7:24 Results for AM CDT this procedure are in the results section. CALCIUM LEVEL AM 07/30/2023 7:24 Results for AM CDT this procedure are in the results section. .GLOMERULAR FILTRATION AM 07/30/2023 7:24 Re sults for RATE AM CDT this procedure are in the results section. SERUM CREATININE AM 07/30/2023 7:24 Results for AM CDT this procedure are in the results section. ELECTROLYTE PANEL AM 07/30/2023 7:24 Results for AM CDT this procedure are in the results section. BLOOD UREA NITROGEN AM 07/30/2023 7:24 Resul ts for AM CDT this procedure are in the results section. GLUCOSE LEVEL AM 07/30/2023 7:24 Results for AM CDT this procedure are in the results section. DIFFERENTIAL AM 07/30/2023 7:24 Results for AM CDT this procedure are in the results section. .CBC AM 07/30/2023 7:24 Results for AM CDT this procedure are in the results section. PHOSPHORUS LEVEL AM 07/30/2023 7:24 Results for AM CDT this procedure are in the results section. MAGNESIUM LEVEL AM 07/30/2023 7:24 Results f or AM CDT this procedure are in the results section. COMPREHENSIVE METABOLIC AM 07/30/2023 7:24 PANEL AM CDT COMPLETE BLOOD COUNT W/ AM 07/30/2023 7:24 DIFFERENTIAL AM CDT FRACTIONATED BILIRUBIN AM 07/29/2023 8:29 Re sults for AM CDT this procedure are in the results section. TOTAL PROTEIN AM 07/29/2023 8:29 Results for AM CDT this procedure are in the results section. ASPARTATE AM 07/29/2023 8:29 Results for AMINOTRANSFERASE AM CDT this proced ure are in the results section. ALANINE AM 07/29/2023 8:29 Results for AMINOTRANSFERASE AM CDT this proced ure are in the results section. ALKALINE PHOSPHATASE AM 07/29/2023 8:29 Resu lts for AM CDT this procedure are in the results section. ALBUMIN LEVEL AM 07/29/2023 8:29 Results for AM CDT this procedure are in the results section. CALCIUM LEVEL AM 07/29/2023 8:29 Results for AM CDT this procedure are in the results section. .GLOMERULAR FILTRATION AM 07/29/2023 8:29 Re sults for RATE AM CDT this procedure are in the results section. SERUM CREATININE AM 07/29/2023 8:29 Results for AM CDT this procedure are in the results section. ELECTROLYTE PANEL AM 07/29/2023 8:29 Results for AM CDT this procedure are in the results section. BLOOD UREA NITROGEN AM 07/29/2023 8:29 Resul ts for AM CDT this procedure are in the results section. GLUCOSE LEVEL AM 07/29/2023 8:29 Results for AM CDT this procedure are in the results section. DIFFERENTIAL AM 07/29/2023 8:29 Results for AM CDT this procedure are in the results section. .CBC AM 07/29/2023 8:29 Results for AM CDT this procedure are in the results section. PHOSPHORUS LEVEL AM 07/29/2023 8:29 Results for AM CDT this procedure are in the results section. MAGNESIUM LEVEL AM 07/29/2023 8:29 Results f or AM CDT this procedure are in the results section. COMPREHENSIVE METABOLIC AM 07/29/2023 8:29 PANEL AM CDT COMPLETE BLOOD COUNT W/ AM 07/29/2023 8:29 DIFFERENTIAL AM CDT 3D DENTAL IMAGING Routine 07/28/2023 10:13 Encounter for Resul ts for (ICAT) AM CDT observation for this procedu re other suspected are in the disease ruled out results section. FRACTIONATED BILIRUBIN AM 07/28/2023 8:03 Re sults for AM CDT this procedure are in the results section. TOTAL PROTEIN AM 07/28/2023 8:03 Results for AM CDT this procedure are in the results section. ASPARTATE AM 07/28/2023 8:03 Results for AMINOTRANSFERASE AM CDT this proced ure are in the results section. ALANINE AM 07/28/2023 8:03 Results for AMINOTRANSFERASE AM CDT this proced ure are in the results section. ALKALINE PHOSPHATASE AM 07/28/2023 8:03 Resu lts for AM CDT this procedure are in the results section. ALBUMIN LEVEL AM 07/28/2023 8:03 Results for AM CDT this procedure are in the results section. CALCIUM LEVEL AM 07/28/2023 8:03 Results for AM CDT this procedure are in the results section. .GLOMERULAR FILTRATION AM 07/28/2023 8:03 Re sults for RATE AM CDT this procedure are in the results section. SERUM CREATININE AM 07/28/2023 8:03 Results for AM CDT this procedure are in the results section. ELECTROLYTE PANEL AM 07/28/2023 8:03 Results for AM CDT this procedure are in the results section. BLOOD UREA NITROGEN AM 07/28/2023 8:03 Resul ts for AM CDT this procedure are in the results section. GLUCOSE LEVEL AM 07/28/2023 8:03 Results for AM CDT this procedure are in the results section. DIFFERENTIAL AM 07/28/2023 8:03 Results for AM CDT this procedure are in the results section. .CBC AM 07/28/2023 8:03 Results for AM CDT this procedure are in the results section. PHOSPHORUS LEVEL AM 07/28/2023 8:03 Results for AM CDT this procedure are in the results section. MAGNESIUM LEVEL AM 07/28/2023 8:03 Results f or AM CDT this procedure are in the results section. COMPREHENSIVE METABOLIC AM 07/28/2023 8:03 PANEL AM CDT COMPLETE BLOOD COUNT W/ AM 07/28/2023 8:03 DIFFERENTIAL AM CDT FRACTIONATED BILIRUBIN AM 07/27/2023 4:50 Re sults for AM CDT this procedure are in the results section. TOTAL PROTEIN AM 07/27/2023 4:50 Results for AM CDT this procedure are in the results section. ASPARTATE AM 07/27/2023 4:50 Results for AMINOTRANSFERASE AM CDT this proced ure are in the results section. ALANINE AM 07/27/2023 4:50 Results for AMINOTRANSFERASE AM CDT this proced ure are in the results section. ALKALINE PHOSPHATASE AM 07/27/2023 4:50 Resu lts for AM CDT this procedure are in the results section. ALBUMIN LEVEL AM 07/27/2023 4:50 Results for AM CDT this procedure are in the results section. CALCIUM LEVEL AM 07/27/2023 4:50 Results for AM CDT this procedure are in the results section. .GLOMERULAR FILTRATION AM 07/27/2023 4:50 Re sults for RATE AM CDT this procedure are in the results section. SERUM CREATININE AM 07/27/2023 4:50 Results for AM CDT this procedure are in the results section. ELECTROLYTE PANEL AM 07/27/2023 4:50 Results for AM CDT this procedure are in the results section. BLOOD UREA NITROGEN AM 07/27/2023 4:50 Resul ts for AM CDT this procedure are in the results section. GLUCOSE LEVEL AM 07/27/2023 4:50 Results for AM CDT this procedure are in the results section. DIFFERENTIAL AM 07/27/2023 4:50 Results for AM CDT this procedure are in the results section. .CBC AM 07/27/2023 4:50 Results for AM CDT this procedure are in the results section. PHOSPHORUS LEVEL AM 07/27/2023 4:50 Results for AM CDT this procedure are in the results section. MAGNESIUM LEVEL AM 07/27/2023 4:50 Results f or AM CDT this procedure are in the results section. COMPREHENSIVE METABOLIC AM 07/27/2023 4:50 PANEL AM CDT COMPLETE BLOOD COUNT W/ AM 07/27/2023 4:50 DIFFERENTIAL AM CDT URINALYSIS WITH Routine 07/26/2023 11:44 Results for MICROSCOPIC AM CDT this procedure are in the results section. CT CERVICAL THORACIC STAT 07/26/2023 8:52 Resu lts for LUMBAR SPINE WO AM CDT this procedu re CONTRAST are in the results section. TMP INTERPRETATION Routine 07/26/2023 7:24 Result s for ANTIBODY SCREEN AM CDT this procedu re NEGATIVE are in the results section. CLOT EXPIRATION DATE Routine 07/26/2023 7:24 Resu lts for AM CDT this procedure are in the results section. FRACTIONATED BILIRUBIN Now 07/26/2023 7:24 Re sults for AM CDT this procedure are in the results section. TOTAL PROTEIN Now 07/26/2023 7:24 Results for AM CDT this procedure are in the results section. ASPARTATE Now 07/26/2023 7:24 Results for AMINOTRANSFERASE AM CDT this proced ure are in the results section. ALANINE Now 07/26/2023 7:24 Results for AMINOTRANSFERASE AM CDT this proced ure are in the results section. ALKALINE PHOSPHATASE Now 07/26/2023 7:24 Resu lts for AM CDT this procedure are in the results section. ALBUMIN LEVEL Now 07/26/2023 7:24 Results for AM CDT this procedure are in the results section. CALCIUM LEVEL Now 07/26/2023 7:24 Results for AM CDT this procedure are in the results section. .GLOMERULAR FILTRATION Now 07/26/2023 7:24 Re sults for RATE AM CDT this procedure are in the results section. SERUM CREATININE Now 07/26/2023 7:24 Results for AM CDT this procedure are in the results section. ELECTROLYTE PANEL Now 07/26/2023 7:24 Results for AM CDT this procedure are in the results section. BLOOD UREA NITROGEN Now 07/26/2023 7:24 Resul ts for AM CDT this procedure are in the results section. GLUCOSE LEVEL Now 07/26/2023 7:24 Results for AM CDT this procedure are in the results section. DIFFERENTIAL Now 07/26/2023 7:24 Results for AM CDT this procedure are in the results section. .CBC Now 07/26/2023 7:24 Results for AM CDT this procedure are in the results section. ANTIBODY SCREEN Routine 07/26/2023 7:24 Results f or AM CDT this procedure are in the results section. ABORH Routine 07/26/2023 7:24 Results for AM CDT this procedure are in the results section. APTT Routine 07/26/2023 7:24 Results for AM CDT this procedure are in the results section. PROTHROMBIN TIME Routine 07/26/2023 7:24 Results for AM CDT this procedure are in the results section. TYPE AND SCREEN Routine 07/26/2023 7:24 AM CDT PHOSPHORUS LEVEL Now 07/26/2023 7:24 Results for AM CDT this procedure are in the results section. MAGNESIUM LEVEL Now 07/26/2023 7:24 Results f or AM CDT this procedure are in the results section. COMPREHENSIVE METABOLIC Now 07/26/2023 7:24 PANEL AM CDT COMPLETE BLOOD COUNT W/ Now 07/26/2023 7:24 DIFFERENTIAL AM CDT XR FEMUR 2 VW RIGHT Routine 07/25/2023 10:02 Resu lts for PM CDT this procedure are in the results section. CT HIP RIGHT WO STAT 07/25/2023 7:39 Results f or CONTRAST PM CDT this procedure are in the results section. FRACTIONATED BILIRUBIN Routine 07/25/2023 7:06 Re sults for PM CDT this procedure are in the results section. TOTAL PROTEIN Routine 07/25/2023 7:06 Results for PM CDT this procedure are in the results section. ASPARTATE Routine 07/25/2023 7:06 Results for AMINOTRANSFERASE PM CDT this proced ure are in the results section. ALANINE Routine 07/25/2023 7:06 Results for AMINOTRANSFERASE PM CDT this proced ure are in the results section. ALKALINE PHOSPHATASE Routine 07/25/2023 7:06 Resu lts for PM CDT this procedure are in the results section. ALBUMIN LEVEL Routine 07/25/2023 7:06 Results for PM CDT this procedure are in the results section. CALCIUM LEVEL Routine 07/25/2023 7:06 Results for PM CDT this procedure are in the results section. .GLOMERULAR FILTRATION Routine 07/25/2023 7:06 Re sults for RATE PM CDT this procedure are in the results section. SERUM CREATININE Routine 07/25/2023 7:06 Results for PM CDT this procedure are in the results section. ELECTROLYTE PANEL Routine 07/25/2023 7:06 Results for PM CDT this procedure are in the results section. BLOOD UREA NITROGEN Routine 07/25/2023 7:06 Resul ts for PM CDT this procedure are in the results section. GLUCOSE LEVEL Routine 07/25/2023 7:06 Results for PM CDT this procedure are in the results section. DIFFERENTIAL STAT 07/25/2023 7:06 Results for PM CDT this procedure are in the results section. .CBC STAT 07/25/2023 7:06 Results for PM CDT this procedure are in the results section. PHOSPHORUS LEVEL Routine 07/25/2023 7:06 Results for PM CDT this procedure are in the results section. MAGNESIUM LEVEL Routine 07/25/2023 7:06 Results f or PM CDT this procedure are in the results section. COMPREHENSIVE METABOLIC Routine 07/25/2023 7:06 PANEL PM CDT COMPLETE BLOOD COUNT W/ Routine 07/25/2023 7:06 DIFFERENTIAL PM CDT MRI PELVIS W WO Routine 07/24/2023 3:50 Hip pain <Right Result s for CONTRAST - PM CDT side> this procedure MUSCULOSKELETAL are in the results section. DIFFERENTIAL Routine 07/24/2023 9:59 Metastatic Results for AM CDT malignant neoplasm this proc edure to bone are in the Estrogen receptor results positive status section. (ER+) .CBC Routine 07/24/2023 9:59 Metastatic Results for AM CDT malignant neoplasm this proc edure to bone are in the Estrogen receptor results positive status section. (ER+) FRACTIONATED BILIRUBIN Routine 07/24/2023 9:59 Metastatic Re sults for AM CDT malignant neoplasm this proc edure to bone are in the Estrogen receptor results positive status section. (ER+) TOTAL PROTEIN Routine 07/24/2023 9:59 Metastatic Results for AM CDT malignant neoplasm this proc edure to bone are in the Estrogen receptor results positive status section. (ER+) ASPARTATE Routine 07/24/2023 9:59 Metastatic Results for AMINOTRANSFERASE AM CDT malignant neoplasm this procedure to bone are in the Estrogen receptor results positive status section. (ER+) ALANINE Routine 07/24/2023 9:59 Metastatic Results for AMINOTRANSFERASE AM CDT malignant neoplasm this procedure to bone are in the Estrogen receptor results positive status section. (ER+) ALKALINE PHOSPHATASE Routine 07/24/2023 9:59 Metastatic Resu lts for AM CDT malignant neoplasm this proc edure to bone are in the Estrogen receptor results positive status section. (ER+) ALBUMIN LEVEL Routine 07/24/2023 9:59 Metastatic Results for AM CDT malignant neoplasm this proc edure to bone are in the Estrogen receptor results positive status section. (ER+) CALCIUM LEVEL Routine 07/24/2023 9:59 Metastatic Results for AM CDT malignant neoplasm this proc edure to bone are in the Estrogen receptor results positive status section. (ER+) .GLOMERULAR FILTRATION Routine 07/24/2023 9:59 Metastatic Re sults for RATE AM CDT malignant neoplasm this proc edure to bone are in the Estrogen receptor results positive status section. (ER+) SERUM CREATININE Routine 07/24/2023 9:59 Metastatic Results for AM CDT malignant neoplasm this proc edure to bone are in the Estrogen receptor results positive status section. (ER+) ELECTROLYTE PANEL Routine 07/24/2023 9:59 Metastatic Results for AM CDT malignant neoplasm this proc edure to bone are in the Estrogen receptor results positive status section. (ER+) BLOOD UREA NITROGEN Routine 07/24/2023 9:59 Metastatic Resul ts for AM CDT malignant neoplasm this proc edure to bone are in the Estrogen receptor results positive status section. (ER+) GLUCOSE LEVEL Routine 07/24/2023 9:59 Metastatic Results for AM CDT malignant neoplasm this proc edure to bone are in the Estrogen receptor results positive status section. (ER+) URIC ACID Routine 07/24/2023 9:59 Metastatic Results for AM CDT malignant neoplasm this proc edure to bone are in the Estrogen receptor results positive status section. (ER+) PHOSPHORUS LEVEL Routine 07/24/2023 9:59 Metastatic Results for AM CDT malignant neoplasm this proc edure to bone are in the Estrogen receptor results positive status section. (ER+) MAGNESIUM LEVEL Routine 07/24/2023 9:59 Metastatic Results f or AM CDT malignant neoplasm this proc edure to bone are in the Estrogen receptor results positive status section. (ER+) LACTATE DEHYDROGENASE Routine 07/24/2023 9:59 Metastatic Res ults for AM CDT malignant neoplasm this proc edure to bone are in the Estrogen receptor results positive status section. (ER+) COMPLETE BLOOD COUNT W/ Routine 07/24/2023 9:59 Metastatic DIFFERENTIAL AM CDT malignant neoplasm to bone Estrogen receptor positive status (ER+) COMPREHENSIVE METABOLIC Routine 07/24/2023 9:59 Metastatic PANEL AM CDT malignant neoplasm to bone Estrogen receptor positive status (ER+) [facility] Routine 07/18/2023 9:39 Infiltrating duct Result s for AM CDT and lobular this procedure carcinoma of are in the breast, NOS results <Female; Right> section. [facility] EKG, 12-LEAD Routine 07/17/2023 Metastatic malignant neoplasm to bone Estrogen receptor positive status (ER+) [facility] EKG, 12-LEAD Routine 07/17/2023 Metastatic malignant neoplasm to bone Estrogen receptor positive status (ER+) [facility] EKG, 12-LEAD Routine 07/17/2023 Metastatic malignant neoplasm to bone Estrogen receptor positive status (ER+) URINALYSIS MICROSCOPIC Routine 07/16/2023 11:11 R esults for EXAM AM CDT this procedure are in the results section. ELECTROLYTE PANEL Routine 07/16/2023 11:[address] duct R esults for AM CDT and lobular this procedure carcinoma of are in the breast, NOS results <Female; Right> section. FRACTIONATED BILIRUBIN Routine 07/16/2023 11:11 Infiltrating d uct Results for AM CDT and lobular this procedure carcinoma of are in the breast, NOS results <Female; Right> section. TOTAL PROTEIN Routine 07/16/2023 11:[address] duct Resul ts for AM CDT and lobular this procedure carcinoma of are in the breast, NOS results <Female; Right> section. ASPARTATE Routine 07/16/2023 11:11 [address] duct Result s for AMINOTRANSFERASE AM CDT and lobular this proced ure carcinoma of are in the breast, NOS results <Female; Right> section. ALANINE Routine 07/16/2023 11:11 [address]fil[address] duct Result s for AMINOTRANSFERASE AM CDT and lobular this proced ure carcinoma of are in the breast, NOS results <Female; Right> section. ALKALINE PHOSPHATASE Routine 07/16/2023 11:11 Infiltrating heaven t Results for AM CDT and lobular this procedure carcinoma of are in the breast, NOS results <Female; Right> section. ALBUMIN LEVEL Routine 07/16/2023 11:[address] duct Resul ts for AM CDT and lobular this procedure carcinoma of are in the breast, NOS results <Female; Right> section. CALCIUM LEVEL Routine 07/16/2023 11:11 [address] duct Resul ts for AM CDT and lobular this procedure carcinoma of are in the breast, NOS results <Female; Right> section. .GLOMERULAR FILTRATION Routine 07/16/2023 11:11 Infiltrating d uct Results for RATE AM CDT and lobular this procedure carcinoma of are in the breast, NOS results <Female; Right> section. SERUM CREATININE Routine 07/16/2023 11:[address] Re sults for AM CDT and lobular this procedure carcinoma of are in the breast, NOS results <Female; Right> section. BLOOD UREA NITROGEN Routine 07/16/2023 11:[address] Results for AM CDT and lobular this procedure carcinoma of are in the breast, NOS results <Female; Right> section. GLUCOSE LEVEL Routine 07/16/2023 11:[address] duct Resul ts for AM CDT and lobular this procedure carcinoma of are in the breast, NOS results <Female; Right> section. DIFFERENTIAL Routine 07/16/2023 11:11 [address] duct Result s for AM CDT and lobular this procedure carcinoma of are in the breast, NOS results <Female; Right> section. .CBC Routine 07/16/2023 11:11 [address] duct Result s for AM CDT and lobular this procedure carcinoma of are in the breast, NOS results <Female; Right> section. CARCINOEMBRYONIC Routine 07/16/2023 11:[address] Re sults for ANTIGEN AM CDT and lobular this procedure carcinoma of are in the breast, NOS results <Female; Right> section. CARBOHYDRATE ANTIGEN Routine 07/16/2023 11:11 Infiltrating heaven t Results for 15-3 AM CDT and lobular this procedure carcinoma of are in the breast, NOS results <Female; Right> section. URINALYSIS WITH Routine 07/16/2023 11:[address] Res ults for MICROSCOPIC IF AM CDT and lobular this procedur e INDICATED carcinoma of are in the breast, NOS results <Female; Right> section. PHOSPHORUS LEVEL Routine 07/16/2023 11:[address] duct Re sults for AM CDT and lobular this procedure carcinoma of are in the breast, NOS results <Female; Right> section. MAGNESIUM LEVEL Routine 07/16/2023 11:11 [address] duct Res ults for AM CDT and lobular this procedure carcinoma of are in the breast, NOS results <Female; Right> section. COMPREHENSIVE METABOLIC Routine 07/16/2023 11:11 [address] duct PANEL AM CDT and lobular carcinoma of breast, NOS <Female; Right> COMPLETE BLOOD COUNT W/ Routine 07/16/2023 11:11 [address] duct DIFFERENTIAL AM CDT and lobular carcinoma of breast, NOS <Female; Right> PROTHROMBIN TIME Routine 07/16/2023 11:03 In[address]ating duct Re sults for AM CDT and lobular this procedure carcinoma of are in the breast, NOS results <Female; Right> section. APTT Routine 07/16/2023 11:03 [address] duct Result s for AM CDT and lobular this procedure carcinoma of are in the breast, NOS results <Female; Right> section. IR CT GUIDED BIOPSY Routine 07/15/2023 3:[address] duct Results for BONE DEEP PELVIC 60 PM CDT and lobular this pro cedure carcinoma of are in the breast, NOS results <Female; Right> section. PATHOLOGY BIOPSY Routine 07/15/2023 3:08 [address] duct Res ults for INTERPRETATION PM CDT and lobular this procedur e carcinoma of are in the breast, NOS results <Female; Right> section. NM BONE SCAN WHOLE BODY Routine 07/11/2023 2:47 Infiltrating d uct Results for PM CDT and lobular this procedure carcinoma of are in the breast, NOS results <Female; Right> section. CT CHEST ABDOMEN PELVIS Routine 07/11/2023 2:14 Infiltrating d uct Results for W CONTRAST PM CDT and lobular this procedure carcinoma of are in the breast, NOS results <Female; Right> section. EKG, 12-LEAD Routine 07/11/2023 [address] duct (SCHEDULED) and lobular carcinoma of breast, NOS <Female; Right> EKG, 12-LEAD Routine 07/11/2023 [address]ating duct (SCHEDULED) and lobular carcinoma of breast, NOS <Female; Right> EKG, 12-LEAD Routine 07/11/2023 [address]fil[address]ating duct (SCHEDULED) and lobular carcinoma of breast, NOS <Female; Right> OCT, OPTIC NERVE - OU - Routine 07/08/2023 3:27 Infiltrating d uct Results for BOTH EYES PM CDT and lobular this procedure carcinoma of are in the breast, NOS results <Female; Right> section. OCT, RETINA - OU - BOTH Routine 07/08/2023 3:27 Infiltrating d uct Results for EYES PM CDT and lobular this procedure carcinoma of are in the breast, NOS results <Female; Right> section. FUNDUS PHOTOS - OU - Routine 07/08/2023 3:27 [address] duct Results for BOTH EYES PM CDT and lobular this procedure carcinoma of are in the breast, NOS results <Female; Right> section. XR HIP 2 OR 3 VW W Routine 07/08/2023 2:20 Fall <Initial> Resu lts for PELVIS RIGHT PM CDT this procedure are in the results section. SPIROMETRY W/O Routine 07/08/2023 11:03 Shortness of breath Re sults for DILATORS, DLCO AND BODY AM CDT this procedure PLETHSMOGRAPHIC LUNG are in the VOLUMES results section. URINALYSIS MICROSCOPIC Routine 07/08/2023 9:00 Re sults for EXAM AM CDT this procedure are in the results section. FRACTIONATED BILIRUBIN Routine 07/08/2023 9:[address] Results for AM CDT and lobular this procedure carcinoma of are in the breast, NOS results <Female; Right> section. TOTAL PROTEIN Routine 07/08/2023 9:[address] duct Result s for AM CDT and lobular this procedure carcinoma of are in the breast, NOS results <Female; Right> section. ASPARTATE Routine 07/08/2023 9:[address] duct Results for AMINOTRANSFERASE AM CDT and lobular this proced ure carcinoma of are in the breast, NOS results <Female; Right> section. ALANINE Routine 07/08/2023 9:[address] duct Results for AMINOTRANSFERASE AM CDT and lobular this proced ure carcinoma of are in the breast, NOS results <Female; Right> section. ALKALINE PHOSPHATASE Routine 07/08/2023 9:00 [address] duct Results for AM CDT and lobular this procedure carcinoma of are in the breast, NOS results <Female; Right> section. ALBUMIN LEVEL Routine 07/08/2023 9:00 Infil[address]ating duct Result s for AM CDT and lobular this procedure carcinoma of are in the breast, NOS results <Female; Right> section. CALCIUM LEVEL Routine 07/08/2023 9:00 Infil[address]ating duct Result s for AM CDT and lobular this procedure carcinoma of are in the breast, NOS results <Female; Right> section. .GLOMERULAR FILTRATION Routine 07/08/2023 9:[address] Results for RATE AM CDT and lobular this procedure carcinoma of are in the breast, NOS results <Female; Right> section. SERUM CREATININE Routine 07/08/2023 9:[address] duct Res ults for AM CDT and lobular this procedure carcinoma of are in the breast, NOS results <Female; Right> section. ELECTROLYTE PANEL Routine 07/08/2023 9:[address] duct Re sults for AM CDT and lobular this procedure carcinoma of are in the breast, NOS results <Female; Right> section. BLOOD UREA NITROGEN Routine 07/08/2023 9:[address] duct Results for AM CDT and lobular this procedure carcinoma of are in the breast, NOS results <Female; Right> section. GLUCOSE LEVEL Routine 07/08/2023 9:00 In[address] duct Result s for AM CDT and lobular this procedure carcinoma of are in the breast, NOS results <Female; Right> section. DIFFERENTIAL Routine 07/08/2023 9:00 [address] duct Results for AM CDT and lobular this procedure carcinoma of are in the breast, NOS results <Female; Right> section. .CBC Routine 07/08/2023 9:[address] Results for AM CDT and lobular this procedure carcinoma of are in the breast, NOS results <Female; Right> section. URINALYSIS WITH Routine 07/08/2023 9:00 [address] duct Resu lts for MICROSCOPIC IF AM CDT and lobular this procedur e INDICATED carcinoma of are in the breast, NOS results <Female; Right> section. PROTHROMBIN TIME Routine 07/08/2023 9:00 In[address] duct Res ults for AM CDT and lobular this procedure carcinoma of are in the breast, NOS results <Female; Right> section. PHOSPHORUS LEVEL Routine 07/08/2023 9:00 Infil[address]ating duct Res ults for AM CDT and lobular this procedure carcinoma of are in the breast, NOS results <Female; Right> section. MAGNESIUM LEVEL Routine 07/08/2023 9:00 Infil[address]ating duct Resu lts for AM CDT and lobular this procedure carcinoma of are in the breast, NOS results <Female; Right> section. COMPREHENSIVE METABOLIC Routine 07/08/2023 9:00 Infiltrating d uct PANEL AM CDT and lobular carcinoma of breast, NOS <Female; Right> COMPLETE BLOOD COUNT W/ Routine 07/08/2023 9:00 Infiltrating d uct DIFFERENTIAL AM CDT and lobular carcinoma of breast, NOS <Female; Right> BHCG Routine 07/08/2023 9:00 [address] duct Resul ts for AM CDT and lobular this procedure carcinoma of are in the breast, NOS results <Female; Right> section. APTT Routine 07/08/2023 9:[address] Results for AM CDT and lobular this procedure carcinoma of are in the breast, NOS results <Female; Right> section. XR CHEST 2 VW Routine 07/08/2023 8:34 Shortness of breath Resu lts for AM CDT this procedure are in the results section. CT CHEST PULMONARY STAT 06/27/2023 1:12 Result s for EMBOLISM W CONTRAST PM CDT this pro cedure are in the results section. D DIMER STAT 06/27/2023 10:48 Results for AM CDT this procedure are in the results section. US ARM VENOUS DOPPLER Routine 06/27/2023 8:08 Res ults for BILATERAL AM CDT this procedure are in the results section. DIFFERENTIAL AM 06/27/2023 2:06 Results for AM CDT this procedure are in the results section. .CBC AM 06/27/2023 2:06 Results for AM CDT this procedure are in the results section. CALCIUM LEVEL AM 06/27/2023 2:06 Results for AM CDT this procedure are in the results section. .GLOMERULAR FILTRATION AM 06/27/2023 2:06 Re sults for RATE AM CDT this procedure are in the results section. SERUM CREATININE AM 06/27/2023 2:06 Results for AM CDT this procedure are in the results section. ELECTROLYTE PANEL AM 06/27/2023 2:06 Results for AM CDT this procedure are in the results section. BLOOD UREA NITROGEN AM 06/27/2023 2:06 Resul ts for AM CDT this procedure are in the results section. GLUCOSE LEVEL AM 06/27/2023 2:06 Results for AM CDT this procedure are in the results section. COMPLETE BLOOD COUNT W/ AM 06/27/2023 2:06 DIFFERENTIAL AM CDT PHOSPHORUS LEVEL AM 06/27/2023 2:06 Results for AM CDT this procedure are in the results section. MAGNESIUM LEVEL AM 06/27/2023 2:06 Results f or AM CDT this procedure are in the results section. BASIC METABOLIC PANEL, AM 06/27/2023 2:06 CALCIUM TOTAL AM CDT XR CHEST 1 VW Routine 06/26/2023 6:28 Results for PM CDT this procedure are in the results section. FRACTIONATED BILIRUBIN Routine 06/26/2023 3:54 Re sults for PM CDT this procedure are in the results section. TOTAL PROTEIN Routine 06/26/2023 3:54 Results for PM CDT this procedure are in the results section. ASPARTATE Routine 06/26/2023 3:54 Results for AMINOTRANSFERASE PM CDT this proced ure are in the results section. ALANINE Routine 06/26/2023 3:54 Results for AMINOTRANSFERASE PM CDT this proced ure are in the results section. ALKALINE PHOSPHATASE Routine 06/26/2023 3:54 Resu lts for PM CDT this procedure are in the results section. ALBUMIN LEVEL Routine 06/26/2023 3:54 Results for PM CDT this procedure are in the results section. CALCIUM LEVEL Routine 06/26/2023 3:54 Results for PM CDT this procedure are in the results section. .GLOMERULAR FILTRATION Routine 06/26/2023 3:54 Re sults for RATE PM CDT this procedure are in the results section. SERUM CREATININE Routine 06/26/2023 3:54 Results for PM CDT this procedure are in the results section. ELECTROLYTE PANEL Routine 06/26/2023 3:54 Results for PM CDT this procedure are in the results section. BLOOD UREA NITROGEN Routine 06/26/2023 3:54 Resul ts for PM CDT this procedure are in the results section. GLUCOSE LEVEL Routine 06/26/2023 3:54 Results for PM CDT this procedure are in the results section. DIFFERENTIAL STAT 06/26/2023 3:54 Results for PM CDT this procedure are in the results section. .CBC STAT 06/26/2023 3:54 Results for PM CDT this procedure are in the results section. TROPONIN T Routine 06/26/2023 3:54 Results for PM CDT this procedure are in the results section. NT PRO BNP Routine 06/26/2023 3:54 Results for PM CDT this procedure are in the results section. APTT Routine 06/26/2023 3:54 Results for PM CDT this procedure are in the results section. PROTHROMBIN TIME Routine 06/26/2023 3:54 Results for PM CDT this procedure are in the results section. PHOSPHORUS LEVEL Routine 06/26/2023 3:54 Results for PM CDT this procedure are in the results section. MAGNESIUM LEVEL Routine 06/26/2023 3:54 Results f or PM CDT this procedure are in the results section. COMPREHENSIVE METABOLIC Routine 06/26/2023 3:54 PANEL PM CDT COMPLETE BLOOD COUNT W/ Routine 06/26/2023 3:54 DIFFERENTIAL PM CDT EKG, 12-LEAD (PORTABLE) STAT 06/26/2023 RESPIRATORY MULTIPLEX Routine 06/25/2023 12:[address] Results for PCR PANEL, PM CDT and lobular this procedure NASOPHARYNGEAL SWAB carcinoma of are in t he breast, NOS results <Female; Right> section. Acute cough XR CHEST 2 VW Routine 06/25/2023 9:23 Pleural effusion Results for AM CDT this procedure are in the results section. FRACTIONATED BILIRUBIN Routine 06/25/2023 8:[address] Results for AM CDT and lobular this procedure carcinoma of are in the breast, NOS results <Female; Right> section. TOTAL PROTEIN Routine 06/25/2023 8:[address] duct Result s for AM CDT and lobular this procedure carcinoma of are in the breast, NOS results <Female; Right> section. ASPARTATE Routine 06/25/2023 8:44 [address] duct Results for AMINOTRANSFERASE AM CDT and lobular this proced ure carcinoma of are in the breast, NOS results <Female; Right> section. ALANINE Routine 06/25/2023 8:44 In[address]ating duct Results for AMINOTRANSFERASE AM CDT and lobular this proced ure carcinoma of are in the breast, NOS results <Female; Right> section. ALKALINE PHOSPHATASE Routine 06/25/2023 8:44 [address] duct Results for AM CDT and lobular this procedure carcinoma of are in the breast, NOS results <Female; Right> section. ALBUMIN LEVEL Routine 06/25/2023 8:44 Infil[address]ating duct Result s for AM CDT and lobular this procedure carcinoma of are in the breast, NOS results <Female; Right> section. CALCIUM LEVEL Routine 06/25/2023 8:44 Infil[address]ating duct Result s for AM CDT and lobular this procedure carcinoma of are in the breast, NOS results <Female; Right> section. .GLOMERULAR FILTRATION Routine 06/25/2023 8:[address] Results for RATE AM CDT and lobular this procedure carcinoma of are in the breast, NOS results <Female; Right> section. SERUM CREATININE Routine 06/25/2023 8:44 [address] duct Res ults for AM CDT and lobular this procedure carcinoma of are in the breast, NOS results <Female; Right> section. ELECTROLYTE PANEL Routine 06/25/2023 8:44 [address] duct Re sults for AM CDT and lobular this procedure carcinoma of are in the breast, NOS results <Female; Right> section. BLOOD UREA NITROGEN Routine 06/25/2023 8:44 [address] duct Results for AM CDT and lobular this procedure carcinoma of are in the breast, NOS results <Female; Right> section. GLUCOSE LEVEL Routine 06/25/2023 8:44 In[address]ating duct Result s for AM CDT and lobular this procedure carcinoma of are in the breast, NOS results <Female; Right> section. DIFFERENTIAL Routine 06/25/2023 8:44 [address] duct Results for AM CDT and lobular this procedure carcinoma of are in the breast, NOS results <Female; Right> section. .CBC Routine 06/25/2023 8:44 [address] duct Results for AM CDT and lobular this procedure carcinoma of are in the breast, NOS results <Female; Right> section. PHOSPHORUS LEVEL Routine 06/25/2023 8:44 Infiltrating duct Res ults for AM CDT and lobular this procedure carcinoma of are in the breast, NOS results <Female; Right> section. MAGNESIUM LEVEL Routine 06/25/2023 8:44 Infil[address]ating duct Resu lts for AM CDT and lobular this procedure carcinoma of are in the breast, NOS results <Female; Right> section. COMPREHENSIVE METABOLIC Routine 06/25/2023 8:44 Infiltrating d uct PANEL AM CDT and lobular carcinoma of breast, NOS <Female; Right> COMPLETE BLOOD COUNT W/ Routine 06/25/2023 8:44 Infiltrating d uct DIFFERENTIAL AM CDT and lobular carcinoma of breast, NOS <Female; Right> PULMONARY ULTRASOUND Routine 06/12/2023 8:46 Malignant pleural Results for AM CDT effusion this procedure are in the results section. XR CHEST 2 VW Routine 06/11/2023 1:45 Malignant pleural Result s for PM CDT effusion this procedure are in the results section. GENERAL LABORATORY ADD STAT 06/11/2023 1:[address] Results for ON TEST PM CDT and lobular this procedure carcinoma of are in the breast, NOS results <Female; Right> section. Metastatic malignant neoplasm to bone Personal history of malignant neoplasm of breast CARBOHYDRATE ANTIGEN Routine 06/11/2023 9:51 Resu lts for 15-3 AM CDT this procedure are in the results section. FRACTIONATED BILIRUBIN Routine 06/11/2023 9:[address] Results for AM CDT and lobular this procedure carcinoma of are in the breast, NOS results <Female; Right> section. Metastatic malignant neoplasm to bone TOTAL PROTEIN Routine 06/11/2023 9:[address] duct Result s for AM CDT and lobular this procedure carcinoma of are in the breast, NOS results <Female; Right> section. Metastatic malignant neoplasm to bone ASPARTATE Routine 06/11/2023 9:51 In[address] duct Results for AMINOTRANSFERASE AM CDT and lobular this proced ure carcinoma of are in the breast, NOS results <Female; Right> section. Metastatic malignant neoplasm to bone ALANINE Routine 06/11/2023 9:51 In[address] duct Results for AMINOTRANSFERASE AM CDT and lobular this proced ure carcinoma of are in the breast, NOS results <Female; Right> section. Metastatic malignant neoplasm to bone ALKALINE PHOSPHATASE Routine 06/11/2023 9:51 [address] duct Results for AM CDT and lobular this procedure carcinoma of are in the breast, NOS results <Female; Right> section. Metastatic malignant neoplasm to bone ALBUMIN LEVEL Routine 06/11/2023 9:51 Infil[address]ating duct Result s for AM CDT and lobular this procedure carcinoma of are in the breast, NOS results <Female; Right> section. Metastatic malignant neoplasm to bone CALCIUM LEVEL Routine 06/11/2023 9:51 Infiltrating duct Result s for AM CDT and lobular this procedure carcinoma of are in the breast, NOS results <Female; Right> section. Metastatic malignant neoplasm to bone .GLOMERULAR FILTRATION Routine 06/11/2023 9:[address] Results for RATE AM CDT and lobular this procedure carcinoma of are in the breast, NOS results <Female; Right> section. Metastatic malignant neoplasm to bone SERUM CREATININE Routine 06/11/2023 9:51 [address] duct Res ults for AM CDT and lobular this procedure carcinoma of are in the breast, NOS results <Female; Right> section. Metastatic malignant neoplasm to bone ELECTROLYTE PANEL Routine 06/11/2023 9:51 [address] duct Re sults for AM CDT and lobular this procedure carcinoma of are in the breast, NOS results <Female; Right> section. Metastatic malignant neoplasm to bone BLOOD UREA NITROGEN Routine 06/11/2023 9:51 [address] duct Results for AM CDT and lobular this procedure carcinoma of are in the breast, NOS results <Female; Right> section. Metastatic malignant neoplasm to bone DIFFERENTIAL Routine 06/11/2023 9:51 [address] duct Results for AM CDT and lobular this procedure carcinoma of are in the breast, NOS results <Female; Right> section. Metastatic malignant neoplasm to bone .CBC Routine 06/11/2023 9:51 [address] duct Results for AM CDT and lobular this procedure carcinoma of are in the breast, NOS results <Female; Right> section. Metastatic malignant neoplasm to bone GLUCOSE, FASTING Routine 06/11/2023 9:51 [address] duct Res ults for AM CDT and lobular this procedure carcinoma of are in the breast, NOS results <Female; Right> section. Metastatic malignant neoplasm to bone PHOSPHORUS LEVEL Routine 06/11/2023 9:51 In[address]ating duct Res ults for AM CDT and lobular this procedure carcinoma of are in the breast, NOS results <Female; Right> section. Metastatic malignant neoplasm to bone MAGNESIUM LEVEL Routine 06/11/2023 9:51 Infiltrating duct Resu lts for AM CDT and lobular this procedure carcinoma of are in the breast, NOS results <Female; Right> section. Metastatic malignant neoplasm to bone COMPREHENSIVE METABOLIC Routine 06/11/2023 9:51 Infiltrating d uct PANEL AM CDT and lobular carcinoma of breast, NOS <Female; Right> Metastatic malignant neoplasm to bone COMPLETE BLOOD COUNT W/ Routine 06/11/2023 9:51 Infiltrating d uct DIFFERENTIAL AM CDT and lobular carcinoma of breast, NOS <Female; Right> Metastatic malignant neoplasm to bone XR CHEST 1 VW Routine 06/07/2023 9:52 Results for AM CDT this procedure are in the results section. CALCIUM LEVEL AM 06/07/2023 7:00 Results for AM CDT this procedure are in the results section. .GLOMERULAR FILTRATION AM 06/07/2023 7:00 Re sults for RATE AM CDT this procedure are in the results section. SERUM CREATININE AM 06/07/2023 7:00 Results for AM CDT this procedure are in the results section. ELECTROLYTE PANEL AM 06/07/2023 7:00 Results for AM CDT this procedure are in the results section. BLOOD UREA NITROGEN AM 06/07/2023 7:00 Resul ts for AM CDT this procedure are in the results section. GLUCOSE LEVEL AM 06/07/2023 7:00 Results for AM CDT this procedure are in the results section. DIFFERENTIAL AM 06/07/2023 7:00 Results for AM CDT this procedure are in the results section. .CBC AM 06/07/2023 7:00 Results for AM CDT this procedure are in the results section. PHOSPHORUS LEVEL AM 06/07/2023 7:00 Results for AM CDT this procedure are in the results section. MAGNESIUM LEVEL AM 06/07/2023 7:00 Results f or AM CDT this procedure are in the results section. BASIC METABOLIC PANEL, AM 06/07/2023 7:00 CALCIUM TOTAL AM CDT COMPLETE BLOOD COUNT W/ AM 06/07/2023 7:00 DIFFERENTIAL AM CDT XR CHEST 1 VW Routine 06/06/2023 7:50 Results for AM CDT this procedure are in the results section. CALCIUM LEVEL AM 06/06/2023 6:59 Results for AM CDT this procedure are in the results section. .GLOMERULAR FILTRATION AM 06/06/2023 6:59 Re sults for RATE AM CDT this procedure are in the results section. SERUM CREATININE AM 06/06/2023 6:59 Results for AM CDT this procedure are in the results section. ELECTROLYTE PANEL AM 06/06/2023 6:59 Results for AM CDT this procedure are in the results section. BLOOD UREA NITROGEN AM 06/06/2023 6:59 Resul ts for AM CDT this procedure are in the results section. GLUCOSE LEVEL AM 06/06/2023 6:59 Results for AM CDT this procedure are in the results section. DIFFERENTIAL AM 06/06/2023 6:59 Results for AM CDT this procedure are in the results section. .CBC AM 06/06/2023 6:59 Results for AM CDT this procedure are in the results section. PHOSPHORUS LEVEL AM 06/06/2023 6:59 Results for AM CDT this procedure are in the results section. MAGNESIUM LEVEL AM 06/06/2023 6:59 Results f or AM CDT this procedure are in the results section. BASIC METABOLIC PANEL, AM 06/06/2023 6:59 CALCIUM TOTAL AM CDT COMPLETE BLOOD COUNT W/ AM 06/06/2023 6:59 DIFFERENTIAL AM CDT XR CHEST 1 VW STAT 06/05/2023 12:33 Results fo r PM CDT this procedure are in the results section. INSERTION OF INDWELLING 06/05/2023 10:38 Malignant ple ural TUNNELED PLEURAL AM CDT effusion CATHETER WITH CUFF-RIGHT SURGICAL THORACOSCOPY 06/05/2023 10:38 Malignant pleur al WITH PLEURODESIS AM CDT effusion (MECHANICAL OR CHEMICAL) PULMONARY ULTRASOUND Routine 06/05/2023 10:08 Res ults for AM CDT this procedure are in the results section. US TRANSVAGINAL Routine 06/03/2023 11:46 Metastatic Results for AM CDT malignant neoplasm this proc edure to bone are in the Estrogen receptor results positive status section. (ER+) Secondary malignant neoplasm of skin US PELVIS COMPLETE Routine 06/03/2023 11:46 Metastatic Resul ts for AM CDT malignant neoplasm this proc edure to bone are in the Estrogen receptor results positive status section. (ER+) Secondary malignant neoplasm of skin PULMONARY ULTRASOUND Routine 06/02/2023 9:40 Malignant pleural Results for AM CDT effusion this procedure are in the results section. XR CHEST 2 VW Routine 06/02/2023 8:05 Malignant pleural Result s for AM CDT effusion this procedure are in the results section. NM BONE SCAN WHOLE BODY Routine 05/27/2023 9:25 Metastatic R esults for AM CDT malignant neoplasm this proc edure to bone are in the Estrogen receptor results positive status section. (ER+) Secondary malignant neoplasm of skin CT CHEST ABDOMEN PELVIS Routine 05/27/2023 8:29 Metastatic R esults for W CONTRAST AM CDT malignant neoplasm this proc edure to bone are in the Estrogen receptor results positive status section. (ER+) Secondary malignant neoplasm of skin FRACTIONATED BILIRUBIN Routine 05/27/2023 6:57 Metastatic Re sults for AM CDT malignant neoplasm this proc edure to bone are in the Estrogen receptor results positive status section. (ER+) Secondary malignant neoplasm of skin TOTAL PROTEIN Routine 05/27/2023 6:57 Metastatic Results for AM CDT malignant neoplasm this proc edure to bone are in the Estrogen receptor results positive status section. (ER+) Secondary malignant neoplasm of skin ASPARTATE Routine 05/27/2023 6:57 Metastatic Results for AMINOTRANSFERASE AM CDT malignant neoplasm this procedure to bone are in the Estrogen receptor results positive status section. (ER+) Secondary malignant neoplasm of skin ALANINE Routine 05/27/2023 6:57 Metastatic Results for AMINOTRANSFERASE AM CDT malignant neoplasm this procedure to bone are in the Estrogen receptor results positive status section. (ER+) Secondary malignant neoplasm of skin ALKALINE PHOSPHATASE Routine 05/27/2023 6:57 Metastatic Resu lts for AM CDT malignant neoplasm this proc edure to bone are in the Estrogen receptor results positive status section. (ER+) Secondary malignant neoplasm of skin ALBUMIN LEVEL Routine 05/27/2023 6:57 Metastatic Results for AM CDT malignant neoplasm this proc edure to bone are in the Estrogen receptor results positive status section. (ER+) Secondary malignant neoplasm of skin CALCIUM LEVEL Routine 05/27/2023 6:57 Metastatic Results for AM CDT malignant neoplasm this proc edure to bone are in the Estrogen receptor results positive status section. (ER+) Secondary malignant neoplasm of skin .GLOMERULAR FILTRATION Routine 05/27/2023 6:57 Metastatic Re sults for RATE AM CDT malignant neoplasm this proc edure to bone are in the Estrogen receptor results positive status section. (ER+) Secondary malignant neoplasm of skin SERUM CREATININE Routine 05/27/2023 6:57 Metastatic Results for AM CDT malignant neoplasm this proc edure to bone are in the Estrogen receptor results positive status section. (ER+) Secondary malignant neoplasm of skin ELECTROLYTE PANEL Routine 05/27/2023 6:57 Metastatic Results for AM CDT malignant neoplasm this proc edure to bone are in the Estrogen receptor results positive status section. (ER+) Secondary malignant neoplasm of skin BLOOD UREA NITROGEN Routine 05/27/2023 6:57 Metastatic Resul ts for AM CDT malignant neoplasm this proc edure to bone are in the Estrogen receptor results positive status section. (ER+) Secondary malignant neoplasm of skin GLUCOSE LEVEL Routine 05/27/2023 6:57 Metastatic Results for AM CDT malignant neoplasm this proc edure to bone are in the Estrogen receptor results positive status section. (ER+) Secondary malignant neoplasm of skin DIFFERENTIAL Routine 05/27/2023 6:57 Metastatic Results for AM CDT malignant neoplasm this proc edure to bone are in the Estrogen receptor results positive status section. (ER+) Secondary malignant neoplasm of skin .CBC Routine 05/27/2023 6:57 Metastatic Results for AM CDT malignant neoplasm this proc edure to bone are in the Estrogen receptor results positive status section. (ER+) Secondary malignant neoplasm of skin MAGNESIUM LEVEL Routine 05/27/2023 6:57 Metastatic Results f or AM CDT malignant neoplasm this proc edure to bone are in the Estrogen receptor results positive status section. (ER+) Secondary malignant neoplasm of skin PHOSPHORUS LEVEL Routine 05/27/2023 6:57 Metastatic Results for AM CDT malignant neoplasm this proc edure to bone are in the Estrogen receptor results positive status section. (ER+) Secondary malignant neoplasm of skin CARBOHYDRATE ANTIGEN Routine 05/27/2023 6:57 Metastatic Resu lts for 15-3 AM CDT malignant neoplasm this proc edure to bone are in the Estrogen receptor results positive status section. (ER+) Secondary malignant neoplasm of skin COMPREHENSIVE METABOLIC Routine 05/27/2023 6:57 Metastatic PANEL AM CDT malignant neoplasm to bone Estrogen receptor positive status (ER+) Secondary malignant neoplasm of skin COMPLETE BLOOD COUNT W/ Routine 05/27/2023 6:57 Metastatic DIFFERENTIAL AM CDT malignant neoplasm to bone Estrogen receptor positive status (ER+) Secondary malignant neoplasm of skin HP CG HER2 FISH Routine 05/21/2023 7:23 INTERPRETATION AND PM CDT REPORT HP CYTOGENETICS BLOOD Routine 05/21/2023 7:23 Res ults for COLLECTION PM CDT this procedure are in the results section. XR CHEST 1 VW STAT 05/21/2023 2:18 Results for PM CDT this procedure are in the results section. CYTOLOGY NON-INDUSTRIAL ORDER CLERK Routine 05/21/2023 2:05 Pleural effusion Resu lts for INTERPRETATION PM CDT this procedur e are in the results section. GLUCOSE BODY FLUID Routine 05/21/2023 1:48 Result s for PM CDT this procedure are in the results section. BODY FLUID DIFF PATH Routine 05/21/2023 1:48 Resu lts for REVIEW PM CDT this procedure are in the results section. BODY FLUID DIFFERENTIAL Routine 05/21/2023 1:48 R esults for PM CDT this procedure are in the results section. CELL COUNT BODY FLUID Routine 05/21/2023 1:48 Res ults for PM CDT this procedure are in the results section. BODY FLUID CULTURE W/ Routine 05/21/2023 1:48 Res ults for GRAM STAIN PM CDT this procedure are in the results section. CELL COUNT W/ DIFF BODY Routine 05/21/2023 1:48 FLUID PM CDT LACTATE DEHYDROGENASE Routine 05/21/2023 1:48 Res ults for BODY FLUID PM CDT this procedure are in the results section. AMYLASE LEVEL BODY Routine 05/21/2023 1:48 Result s for FLUID PM CDT this procedure are in the results section. CHOLESTEROL BODY FLUID Routine 05/21/2023 1:48 Re sults for PM CDT this procedure are in the results section. TRIGLYCERIDE BODY FLUID Routine 05/21/2023 1:48 R esults for PM CDT this procedure are in the results section. PROTEIN BODY FLUID Routine 05/21/2023 1:48 Result s for PM CDT this procedure are in the results section. THORACENTESIS,NEEDLE OR 05/21/2023 1:25 Pleural effusi on CATHETER,ASPIRATION OF PM CDT THE RIGHT PLEURAL SPACE; WITH IMAGING GUIDANCE PULMONARY ULTRASOUND Routine 05/21/2023 1:10 Resu lts for PM CDT this procedure are in the results section. EKG, 12-LEAD (PORTABLE) Routine 05/21/2023 URINALYSIS WITH Routine 05/20/2023 11:21 Hydronephrosis, not R esults for MICROSCOPIC AM CDT otherwise specified this pro cedure are in the results section. URINE CULTURE Routine 05/20/2023 11:21 Hydronephrosis, not Res ults for AM CDT otherwise specified this pro cedure are in the results section. US ARM VENOUS DOPPLER STAT 04/30/2023 2:39 Metastatic Res ults for RIGHT PM CDT malignant neoplasm this proc edure to bone are in the Estrogen receptor results positive status section. (ER+) Secondary malignant neoplasm of skin XR CHEST 2 VW STAT 04/30/2023 1:51 Metastatic Results for PM CDT malignant neoplasm this proc edure to bone are in the Estrogen receptor results positive status section. (ER+) Secondary malignant neoplasm of skin URINALYSIS MICROSCOPIC Routine 04/30/2023 1:30 Re sults for EXAM PM CDT this procedure are in the results section. URINALYSIS WITH Routine 04/30/2023 1:30 Metastatic Results f or MICROSCOPIC IF PM CDT malignant neoplasm this pr ocedure INDICATED to bone are in the Estrogen receptor results positive status section. (ER+) Secondary malignant neoplasm of skin URINE CULTURE Routine 04/30/2023 1:30 Metastatic Results for PM CDT malignant neoplasm this proc edure to bone are in the Estrogen receptor results positive status section. (ER+) Secondary malignant neoplasm of skin FRACTIONATED BILIRUBIN Routine 04/30/2023 9:51 Metastatic Re sults for AM CDT malignant neoplasm this proc edure to bone are in the Estrogen receptor results positive status section. (ER+) TOTAL PROTEIN Routine 04/30/2023 9:51 Metastatic Results for AM CDT malignant neoplasm this proc edure to bone are in the Estrogen receptor results positive status section. (ER+) ASPARTATE Routine 04/30/2023 9:51 Metastatic Results for AMINOTRANSFERASE AM CDT malignant neoplasm this procedure to bone are in the Estrogen receptor results positive status section. (ER+) ALANINE Routine 04/30/2023 9:51 Metastatic Results for AMINOTRANSFERASE AM CDT malignant neoplasm this procedure to bone are in the Estrogen receptor results positive status section. (ER+) ALKALINE PHOSPHATASE Routine 04/30/2023 9:51 Metastatic Resu lts for AM CDT malignant neoplasm this proc edure to bone are in the Estrogen receptor results positive status section. (ER+) ALBUMIN LEVEL Routine 04/30/2023 9:51 Metastatic Results for AM CDT malignant neoplasm this proc edure to bone are in the Estrogen receptor results positive status section. (ER+) CALCIUM LEVEL Routine 04/30/2023 9:51 Metastatic Results for AM CDT malignant neoplasm this proc edure to bone are in the Estrogen receptor results positive status section. (ER+) .GLOMERULAR FILTRATION Routine 04/30/2023 9:51 Metastatic Re sults for RATE AM CDT malignant neoplasm this proc edure to bone are in the Estrogen receptor results positive status section. (ER+) SERUM CREATININE Routine 04/30/2023 9:51 Metastatic Results for AM CDT malignant neoplasm this proc edure to bone are in the Estrogen receptor results positive status section. (ER+) ELECTROLYTE PANEL Routine 04/30/2023 9:51 Metastatic Results for AM CDT malignant neoplasm this proc edure to bone are in the Estrogen receptor results positive status section. (ER+) BLOOD UREA NITROGEN Routine 04/30/2023 9:51 Metastatic Resul ts for AM CDT malignant neoplasm this proc edure to bone are in the Estrogen receptor results positive status section. (ER+) DIFFERENTIAL Routine 04/30/2023 9:51 Metastatic Results for AM CDT malignant neoplasm this proc edure to bone are in the Estrogen receptor results positive status section. (ER+) .CBC Routine 04/30/2023 9:51 Metastatic Results for AM CDT malignant neoplasm this proc edure to bone are in the Estrogen receptor results positive status section. (ER+) GLUCOSE, FASTING Routine 04/30/2023 9:51 Metastatic Results for AM CDT malignant neoplasm this proc edure to bone are in the Estrogen receptor results positive status section. (ER+) PHOSPHORUS LEVEL Routine 04/30/2023 9:51 Metastatic Results for AM CDT malignant neoplasm this proc edure to bone are in the Estrogen receptor results positive status section. (ER+) MAGNESIUM LEVEL Routine 04/30/2023 9:51 Metastatic Results f or AM CDT malignant neoplasm this proc edure to bone are in the Estrogen receptor results positive status section. (ER+) CARBOHYDRATE ANTIGEN Routine 04/30/2023 9:51 Metastatic Resu lts for 15-3 AM CDT malignant neoplasm this proc edure to bone are in the Estrogen receptor results positive status section. (ER+) COMPREHENSIVE METABOLIC Routine 04/30/2023 9:51 Metastatic PANEL AM CDT malignant neoplasm to bone Estrogen receptor positive status (ER+) COMPLETE BLOOD COUNT W/ Routine 04/30/2023 9:51 Metastatic DIFFERENTIAL AM CDT malignant neoplasm to bone Estrogen receptor positive status (ER+) FRACTIONATED BILIRUBIN Routine 04/02/2023 8:50 Metastatic Re sults for AM CDT malignant neoplasm this proc edure to bone are in the Estrogen receptor results positive status section. (ER+) TOTAL PROTEIN Routine 04/02/2023 8:50 Metastatic Results for AM CDT malignant neoplasm this proc edure to bone are in the Estrogen receptor results positive status section. (ER+) CALCIUM LEVEL Routine 04/02/2023 8:50 Metastatic Results for AM CDT malignant neoplasm this proc edure to bone are in the Estrogen receptor results positive status section. (ER+) ELECTROLYTE PANEL Routine 04/02/2023 8:50 Metastatic Results for AM CDT malignant neoplasm this proc edure to bone are in the Estrogen receptor results positive status section. (ER+) BLOOD UREA NITROGEN Routine 04/02/2023 8:50 Metastatic Resul ts for AM CDT malignant neoplasm this proc edure to bone are in the Estrogen receptor results positive status section. (ER+) .GLOMERULAR FILTRATION Routine 04/02/2023 8:50 Metastatic Re sults for RATE AM CDT malignant neoplasm this proc edure to bone are in the Estrogen receptor results positive status section. (ER+) SERUM CREATININE Routine 04/02/2023 8:50 Metastatic Results for AM CDT malignant neoplasm this proc edure to bone are in the Estrogen receptor results positive status section. (ER+) DIFFERENTIAL Routine 04/02/2023 8:50 Metastatic Results for AM CDT malignant neoplasm this proc edure to bone are in the Estrogen receptor results positive status section. (ER+) .CBC Routine 04/02/2023 8:50 Metastatic Results for AM CDT malignant neoplasm this proc edure to bone are in the Estrogen receptor results positive status section. (ER+) CARBOHYDRATE ANTIGEN Routine 04/02/2023 8:50 Metastatic Resu lts for 15-3 AM CDT malignant neoplasm this proc edure to bone are in the Estrogen receptor results positive status section. (ER+) COMPREHENSIVE METABOLIC Routine 04/02/2023 8:50 Metastatic PANEL AM CDT malignant neoplasm to bone Estrogen receptor positive status (ER+) LIPASE LEVEL Routine 04/02/2023 8:50 Metastatic Results for AM CDT malignant neoplasm this proc edure to bone are in the Estrogen receptor results positive status section. (ER+) ASPARTATE Routine 04/02/2023 8:50 Metastatic Results for AMINOTRANSFERASE AM CDT malignant neoplasm this procedure to bone are in the Estrogen receptor results positive status section. (ER+) ALANINE Routine 04/02/2023 8:50 Metastatic Results for AMINOTRANSFERASE AM CDT malignant neoplasm this procedure to bone are in the Estrogen receptor results positive status section. (ER+) ALKALINE PHOSPHATASE Routine 04/02/2023 8:50 Metastatic Resu lts for AM CDT malignant neoplasm this proc edure to bone are in the Estrogen receptor results positive status section. (ER+) CREATININE Routine 04/02/2023 8:50 Metastatic AM CDT malignant neoplasm to bone Estrogen receptor positive status (ER+) GLUCOSE, FASTING Routine 04/02/2023 8:50 Metastatic Results for AM CDT malignant neoplasm this proc edure to bone are in the Estrogen receptor results positive status section. (ER+) ALBUMIN LEVEL Routine 04/02/2023 8:50 Metastatic Results for AM CDT malignant neoplasm this proc edure to bone are in the Estrogen receptor results positive status section. (ER+) PROTHROMBIN TIME Routine 04/02/2023 8:50 Metastatic Results for AM CDT malignant neoplasm this proc edure to bone are in the Estrogen receptor results positive status section. (ER+) COMPLETE BLOOD COUNT W/ Routine 04/02/2023 8:50 Metastatic DIFFERENTIAL AM CDT malignant neoplasm to bone Estrogen receptor positive status (ER+) HEMOGLOBIN A1C Routine 04/02/2023 8:50 Metastatic Results fo r AM CDT malignant neoplasm this proc edure to bone are in the Estrogen receptor results positive status section. (ER+) US ARM VENOUS DOPPLER STAT 03/10/2023 3:19 Metastatic Res ults for RIGHT PM CDT malignant neoplasm this proc edure to bone are in the Estrogen receptor results positive status section. (ER+) FRACTIONATED BILIRUBIN Routine 03/05/2023 11:05 Metastatic R esults for AM CDT malignant neoplasm this proc edure to bone are in the Estrogen receptor results positive status section. (ER+) TOTAL PROTEIN Routine 03/05/2023 11:05 Metastatic Results fo r AM CDT malignant neoplasm this proc edure to bone are in the Estrogen receptor results positive status section. (ER+) ASPARTATE Routine 03/05/2023 11:05 Metastatic Results for AMINOTRANSFERASE AM CDT malignant neoplasm this procedure to bone are in the Estrogen receptor results positive status section. (ER+) ALANINE Routine 03/05/2023 11:05 Metastatic Results for AMINOTRANSFERASE AM CDT malignant neoplasm this procedure to bone are in the Estrogen receptor results positive status section. (ER+) ALKALINE PHOSPHATASE Routine 03/05/2023 11:05 Metastatic Res ults for AM CDT malignant neoplasm this proc edure to bone are in the Estrogen receptor results positive status section. (ER+) ALBUMIN LEVEL Routine 03/05/2023 11:05 Metastatic Results fo r AM CDT malignant neoplasm this proc edure to bone are in the Estrogen receptor results positive status section. (ER+) CALCIUM LEVEL Routine 03/05/2023 11:05 Metastatic Results fo r AM CDT malignant neoplasm this proc edure to bone are in the Estrogen receptor results positive status section. (ER+) .GLOMERULAR FILTRATION Routine 03/05/2023 11:05 Metastatic R esults for RATE AM CDT malignant neoplasm this proc edure to bone are in the Estrogen receptor results positive status section. (ER+) SERUM CREATININE Routine 03/05/2023 11:05 Metastatic Results for AM CDT malignant neoplasm this proc edure to bone are in the Estrogen receptor results positive status section. (ER+) ELECTROLYTE PANEL Routine 03/05/2023 11:05 Metastatic Result s for AM CDT malignant neoplasm this proc edure to bone are in the Estrogen receptor results positive status section. (ER+) BLOOD UREA NITROGEN Routine 03/05/2023 11:05 Metastatic Resu lts for AM CDT malignant neoplasm this proc edure to bone are in the Estrogen receptor results positive status section. (ER+) GLUCOSE LEVEL Routine 03/05/2023 11:05 Metastatic Results fo r AM CDT malignant neoplasm this proc edure to bone are in the Estrogen receptor results positive status section. (ER+) DIFFERENTIAL Routine 03/05/2023 11:05 Metastatic Results for AM CDT malignant neoplasm this proc edure to bone are in the Estrogen receptor results positive status section. (ER+) .CBC Routine 03/05/2023 11:05 Metastatic Results for AM CDT malignant neoplasm this proc edure to bone are in the Estrogen receptor results positive status section. (ER+) MAGNESIUM LEVEL Routine 03/05/2023 11:05 Metastatic Results for AM CDT malignant neoplasm this proc edure to bone are in the Estrogen receptor results positive status section. (ER+) PHOSPHORUS LEVEL Routine 03/05/2023 11:05 Metastatic Results for AM CDT malignant neoplasm this proc edure to bone are in the Estrogen receptor results positive status section. (ER+) LIPASE LEVEL Routine 03/05/2023 11:05 Metastatic Results for AM CDT malignant neoplasm this proc edure to bone are in the Estrogen receptor results positive status section. (ER+) CARBOHYDRATE ANTIGEN Routine 03/05/2023 11:05 Metastatic Res ults for 15-3 AM CDT malignant neoplasm this proc edure to bone are in the Estrogen receptor results positive status section. (ER+) COMPREHENSIVE METABOLIC Routine 03/05/2023 11:05 Metastatic PANEL AM CDT malignant neoplasm to bone Estrogen receptor positive status (ER+) COMPLETE BLOOD COUNT W/ Routine 03/05/2023 11:05 Metastatic DIFFERENTIAL AM CDT malignant neoplasm to bone Estrogen receptor positive status (ER+) NM BONE SCAN WHOLE BODY Routine 03/03/2023 12:18 Metastatic Results for PM CDT malignant neoplasm this proc edure to bone are in the Estrogen receptor results positive status section. (ER+) CT CHEST ABDOMEN PELVIS Routine 03/03/2023 11:38 Metastatic Results for W CONTRAST AM CDT malignant neoplasm this proc edure to bone are in the Estrogen receptor results positive status section. (ER+) DIFFERENTIAL Routine 02/05/2023 9:30 Secondary malignant Resul ts for AM CDT neoplasm of bone this procedure Estrogen receptor are in the positive status results (ER+) section. .CBC Routine 02/05/2023 9:30 Secondary malignant Resul ts for AM CDT neoplasm of bone this procedure Estrogen receptor are in the positive status results (ER+) section. FRACTIONATED BILIRUBIN Routine 02/05/2023 9:30 Secondary malig nant Results for AM CDT neoplasm of bone this procedure Estrogen receptor are in the positive status results (ER+) section. TOTAL PROTEIN Routine 02/05/2023 9:30 Secondary malignant Resu lts for AM CDT neoplasm of bone this procedure Estrogen receptor are in the positive status results (ER+) section. ASPARTATE Routine 02/05/2023 9:30 Secondary malignant Resul ts for AMINOTRANSFERASE AM CDT neoplasm of bon e this procedure Estrogen receptor are in the positive status results (ER+) section. ALANINE Routine 02/05/2023 9:30 Secondary malignant Resul ts for AMINOTRANSFERASE AM CDT neoplasm of bon e this procedure Estrogen receptor are in the positive status results (ER+) section. ALKALINE PHOSPHATASE Routine 02/05/2023 9:30 Secondary maligna nt Results for AM CDT neoplasm of bone this procedure Estrogen receptor are in the positive status results (ER+) section. ALBUMIN LEVEL Routine 02/05/2023 9:30 Secondary malignant Resu lts for AM CDT neoplasm of bone this procedure Estrogen receptor are in the positive status results (ER+) section. CALCIUM LEVEL Routine 02/05/2023 9:30 Secondary malignant Resu lts for AM CDT neoplasm of bone this procedure Estrogen receptor are in the positive status results (ER+) section. .GLOMERULAR FILTRATION Routine 02/05/2023 9:30 Secondary malig nant Results for RATE AM CDT neoplasm of bone this procedure Estrogen receptor are in the positive status results (ER+) section. SERUM CREATININE Routine 02/05/2023 9:30 Secondary malignant R esults for AM CDT neoplasm of bone this procedure Estrogen receptor are in the positive status results (ER+) section. ELECTROLYTE PANEL Routine 02/05/2023 9:30 Secondary malignant Results for AM CDT neoplasm of bone this procedure Estrogen receptor are in the positive status results (ER+) section. BLOOD UREA NITROGEN Routine 02/05/2023 9:30 Secondary malignan t Results for AM CDT neoplasm of bone this procedure Estrogen receptor are in the positive status results (ER+) section. GLUCOSE LEVEL Routine 02/05/2023 9:30 Secondary malignant Resu lts for AM CDT neoplasm of bone this procedure Estrogen receptor are in the positive status results (ER+) section. MAGNESIUM LEVEL Routine 02/05/2023 9:30 Secondary malignant Re sults for AM CDT neoplasm of bone this procedure Estrogen receptor are in the positive status results (ER+) section. PHOSPHORUS LEVEL Routine 02/05/2023 9:30 Secondary malignant R esults for AM CDT neoplasm of bone this procedure Estrogen receptor are in the positive status results (ER+) section. COMPREHENSIVE METABOLIC Routine 02/05/2023 9:30 Secondary esther gnant PANEL AM CDT neoplasm of bone Estrogen receptor positive status (ER+) COMPLETE BLOOD COUNT W/ Routine 02/05/2023 9:30 Secondary esther gnant DIFFERENTIAL AM CDT neoplasm of bone Estrogen receptor positive status (ER+) CARBOHYDRATE ANTIGEN Routine 02/05/2023 9:30 Secondary maligna nt Results for 15-3 AM CDT neoplasm of bone this procedure Estrogen receptor are in the positive status results (ER+) section. DIFFERENTIAL Routine 01/08/2023 8:39 Secondary malignant Resul ts for AM [employer] neoplasm of bone this procedure Estrogen receptor are in the positive status results (ER+) section. .CBC Routine 01/08/2023 8:39 Secondary malignant Resul ts for AM [employer] neoplasm of bone this procedure Estrogen receptor are in the positive status results (ER+) section. FRACTIONATED BILIRUBIN Routine 01/08/2023 8:39 Secondary malig nant Results for AM [employer] neoplasm of bone this procedure Estrogen receptor are in the positive status results (ER+) section. TOTAL PROTEIN Routine 01/08/2023 8:39 Secondary malignant Resu lts for AM [employer] neoplasm of bone this procedure Estrogen receptor are in the positive status results (ER+) section. ASPARTATE Routine 01/08/2023 8:39 Secondary malignant Resul ts for AMINOTRANSFERASE AM [employer] neoplasm of bon e this procedure Estrogen receptor are in the positive status results (ER+) section. ALANINE Routine 01/08/2023 8:39 Secondary malignant Resul ts for AMINOTRANSFERASE AM [employer] neoplasm of bon e this procedure Estrogen receptor are in the positive status results (ER+) section. ALKALINE PHOSPHATASE Routine 01/08/2023 8:39 Secondary maligna nt Results for AM [employer] neoplasm of bone this procedure Estrogen receptor are in the positive status results (ER+) section. ALBUMIN LEVEL Routine 01/08/2023 8:39 Secondary malignant Resu lts for AM [employer] neoplasm of bone this procedure Estrogen receptor are in the positive status results (ER+) section. CALCIUM LEVEL Routine 01/08/2023 8:39 Secondary malignant Resu lts for AM [employer] neoplasm of bone this procedure Estrogen receptor are in the positive status results (ER+) section. .GLOMERULAR FILTRATION Routine 01/08/2023 8:39 Secondary malig nant Results for RATE AM [employer] neoplasm of bone this procedure Estrogen receptor are in the positive status results (ER+) section. SERUM CREATININE Routine 01/08/2023 8:39 Secondary malignant R esults for AM [employer] neoplasm of bone this procedure Estrogen receptor are in the positive status results (ER+) section. ELECTROLYTE PANEL Routine 01/08/2023 8:39 Secondary malignant Results for AM [employer] neoplasm of bone this procedure Estrogen receptor are in the positive status results (ER+) section. BLOOD UREA NITROGEN Routine 01/08/2023 8:39 Secondary malignan t Results for AM [employer] neoplasm of bone this procedure Estrogen receptor are in the positive status results (ER+) section. GLUCOSE LEVEL Routine 01/08/2023 8:39 Secondary malignant Resu lts for AM [employer] neoplasm of bone this procedure Estrogen receptor are in the positive status results (ER+) section. PHOSPHORUS LEVEL Routine 01/08/2023 8:39 Secondary malignant R esults for AM [employer] neoplasm of bone this procedure Estrogen receptor are in the positive status results (ER+) section. MAGNESIUM LEVEL Routine 01/08/2023 8:39 Secondary malignant Re sults for AM [employer] neoplasm of bone this procedure Estrogen receptor are in the positive status results (ER+) section. CARBOHYDRATE ANTIGEN Routine 01/08/2023 8:39 Secondary maligna nt Results for 15-3 AM [employer] neoplasm of bone this procedure Estrogen receptor are in the positive status results (ER+) section. COMPLETE BLOOD COUNT W/ Routine 01/08/2023 8:39 Secondary esther gnant DIFFERENTIAL AM [employer] neoplasm of bone Estrogen receptor positive status (ER+) COMPREHENSIVE METABOLIC Routine 01/08/2023 8:39 Secondary esther gnant PANEL AM [employer] neoplasm of bone Estrogen receptor positive status (ER+) GLUCOSE, FASTING Routine 12/19/2022 12:13 Secondary malignant Results for PM [employer] neoplasm of bone this procedure Estrogen receptor are in the positive status results (ER+) section. .GLOMERULAR FILTRATION Routine 12/05/2022 10:38 Secondary esther gnant Results for RATE AM [employer] neoplasm of bone this procedure Estrogen receptor are in the positive status results (ER+) section. SERUM CREATININE Routine 12/05/2022 10:38 Secondary malignant Results for AM [employer] neoplasm of bone this procedure Estrogen receptor are in the positive status results (ER+) section. DIFFERENTIAL Routine 12/05/2022 10:38 Secondary malignant Resu lts for AM [employer] neoplasm of bone this procedure Estrogen receptor are in the positive status results (ER+) section. .CBC Routine 12/05/2022 10:38 Secondary malignant Resu lts for AM [employer] neoplasm of bone this procedure Estrogen receptor are in the positive status results (ER+) section. HEMOGLOBIN A1C Routine 12/05/2022 10:38 Secondary malignant Re sults for AM [employer] neoplasm of bone this procedure Estrogen receptor are in the positive status results (ER+) section. LIPASE LEVEL Routine 12/05/2022 10:38 Secondary malignant Resu lts for AM [employer] neoplasm of bone this procedure Estrogen receptor are in the positive status results (ER+) section. ASPARTATE Routine 12/05/2022 10:38 Secondary malignant Resu lts for AMINOTRANSFERASE AM [employer] neoplasm of bon e this procedure Estrogen receptor are in the positive status results (ER+) section. ALANINE Routine 12/05/2022 10:38 Secondary malignant Resu lts for AMINOTRANSFERASE AM [employer] neoplasm of bon e this procedure Estrogen receptor are in the positive status results (ER+) section. ALKALINE PHOSPHATASE Routine 12/05/2022 10:38 Secondary malign ant Results for AM [employer] neoplasm of bone this procedure Estrogen receptor are in the positive status results (ER+) section. BILIRUBIN TOTAL Routine 12/05/2022 10:38 Secondary malignant R esults for AM [employer] neoplasm of bone this procedure Estrogen receptor are in the positive status results (ER+) section. CREATININE Routine 12/05/2022 10:38 Secondary malignant AM [employer] neoplasm of bone Estrogen receptor positive status (ER+) GLUCOSE, FASTING Routine 12/05/2022 10:38 Secondary malignant Results for AM [employer] neoplasm of bone this procedure Estrogen receptor are in the positive status results (ER+) section. ALBUMIN LEVEL Routine 12/05/2022 10:38 Secondary malignant Res ults for AM [employer] neoplasm of bone this procedure Estrogen receptor are in the positive status results (ER+) section. PROTHROMBIN TIME Routine 12/05/2022 10:38 Secondary malignant Results for AM [employer] neoplasm of bone this procedure Estrogen receptor are in the positive status results (ER+) section. COMPLETE BLOOD COUNT W/ Routine 12/05/2022 10:38 Secondary mal ignant DIFFERENTIAL AM [employer] neoplasm of bone Estrogen receptor positive status (ER+) DIFFERENTIAL Routine 12/03/2022 8:43 Secondary malignant Resul ts for AM [employer] neoplasm of bone this procedure Estrogen receptor are in the positive status results (ER+) section. .CBC Routine 12/03/2022 8:43 Secondary malignant Resul ts for AM [employer] neoplasm of bone this procedure Estrogen receptor are in the positive status results (ER+) section. FRACTIONATED BILIRUBIN Routine 12/03/2022 8:43 Secondary malig nant Results for AM [employer] neoplasm of bone this procedure Estrogen receptor are in the positive status results (ER+) section. TOTAL PROTEIN Routine 12/03/2022 8:43 Secondary malignant Resu lts for AM [employer] neoplasm of bone this procedure Estrogen receptor are in the positive status results (ER+) section. ASPARTATE Routine 12/03/2022 8:43 Secondary malignant Resul ts for AMINOTRANSFERASE AM [employer] neoplasm of bon e this procedure Estrogen receptor are in the positive status results (ER+) section. ALANINE Routine 12/03/2022 8:43 Secondary malignant Resul ts for AMINOTRANSFERASE AM [employer] neoplasm of bon e this procedure Estrogen receptor are in the positive status results (ER+) section. ALKALINE PHOSPHATASE Routine 12/03/2022 8:43 Secondary maligna nt Results for AM [employer] neoplasm of bone this procedure Estrogen receptor are in the positive status results (ER+) section. ALBUMIN LEVEL Routine 12/03/2022 8:43 Secondary malignant Resu lts for AM [employer] neoplasm of bone this procedure Estrogen receptor are in the positive status results (ER+) section. CALCIUM LEVEL Routine 12/03/2022 8:43 Secondary malignant Resu lts for AM [employer] neoplasm of bone this procedure Estrogen receptor are in the positive status results (ER+) section. .GLOMERULAR FILTRATION Routine 12/03/2022 8:43 Secondary malig nant Results for RATE AM [employer] neoplasm of bone this procedure Estrogen receptor are in the positive status results (ER+) section. SERUM CREATININE Routine 12/03/2022 8:43 Secondary malignant R esults for AM [employer] neoplasm of bone this procedure Estrogen receptor are in the positive status results (ER+) section. ELECTROLYTE PANEL Routine 12/03/2022 8:43 Secondary malignant Results for AM [employer] neoplasm of bone this procedure Estrogen receptor are in the positive status results (ER+) section. BLOOD UREA NITROGEN Routine 12/03/2022 8:43 Secondary malignan t Results for AM [employer] neoplasm of bone this procedure Estrogen receptor are in the positive status results (ER+) section. GLUCOSE LEVEL Routine 12/03/2022 8:43 Secondary malignant Resu lts for AM [employer] neoplasm of bone this procedure Estrogen receptor are in the positive status results (ER+) section. MAGNESIUM LEVEL Routine 12/03/2022 8:43 Secondary malignant Re sults for AM [employer] neoplasm of bone this procedure Estrogen receptor are in the positive status results (ER+) section. PHOSPHORUS LEVEL Routine 12/03/2022 8:43 Secondary malignant Results for AM [employer] neoplasm of bone this procedure Estrogen receptor are in the positive status results (ER+) section. COMPREHENSIVE METABOLIC Routine 12/03/2022 8:43 Secondary esther gnant PANEL AM [employer] neoplasm of bone Estrogen receptor positive status (ER+) COMPLETE BLOOD COUNT W/ Routine 12/03/2022 8:43 Secondary esther gnant DIFFERENTIAL AM [employer] neoplasm of bone Estrogen receptor positive status (ER+) CARBOHYDRATE ANTIGEN Routine 12/03/2022 8:43 Secondary maligna nt Results for 15-3 AM [employer] neoplasm of bone this procedure Estrogen receptor are in the positive status results (ER+) section. [facility] Routine 11/15/2022 11:09 Personal history of Res ults for AM [employer] malignant neoplasm this proc edure of breast are in the results section. NM BONE SCAN WHOLE BODY Routine 11/08/2022 11:55 Secondary mal ignant Results for AM [employer] neoplasm of bone this procedure Secondary and are in the unspecified results malignant neoplasm section. of axilla and upper limb lymph nodes CT CHEST ABDOMEN PELVIS Routine 11/08/2022 10:39 Secondary mal ignant Results for W CONTRAST AM [employer] neoplasm of bone this procedure Secondary and are in the unspecified results malignant neoplasm section. of axilla and upper limb lymph nodes PETCT SUBSEQUENT Routine 10/25/2022 11:28 Secondary malignant Results for TREATMENT STRATEGY AM [employer] neoplasm of b one this procedure Secondary and are in the unspecified results malignant neoplasm section. of axilla and upper limb lymph nodes DIFFERENTIAL Routine 10/23/2022 12:23 Secondary malignant Resu lts for PM [employer] neoplasm of bone this procedure Secondary and are in the unspecified results malignant neoplasm section. of axilla and upper limb lymph nodes .CBC Routine 10/23/2022 12:23 Secondary malignant Resu lts for PM [employer] neoplasm of bone this procedure Secondary and are in the unspecified results malignant neoplasm section. of axilla and upper limb lymph nodes FRACTIONATED BILIRUBIN Routine 10/23/2022 12:23 Secondary esther gnant Results for PM [employer] neoplasm of bone this procedure Secondary and are in the unspecified results malignant neoplasm section. of axilla and upper limb lymph nodes TOTAL PROTEIN Routine 10/23/2022 12:23 Secondary malignant Res ults for PM [employer] neoplasm of bone this procedure Secondary and are in the unspecified results malignant neoplasm section. of axilla and upper limb lymph nodes ASPARTATE Routine 10/23/2022 12:23 Secondary malignant Resu lts for AMINOTRANSFERASE PM [employer] neoplasm of bon e this procedure Secondary and are in the unspecified results malignant neoplasm section. of axilla and upper limb lymph nodes ALANINE Routine 10/23/2022 12:23 Secondary malignant Resu lts for AMINOTRANSFERASE PM [employer] neoplasm of bon e this procedure Secondary and are in the unspecified results malignant neoplasm section. of axilla and upper limb lymph nodes ALKALINE PHOSPHATASE Routine 10/23/2022 12:23 Secondary malign ant Results for PM [employer] neoplasm of bone this procedure Secondary and are in the unspecified results malignant neoplasm section. of axilla and upper limb lymph nodes ALBUMIN LEVEL Routine 10/23/2022 12:23 Secondary malignant Res ults for PM [employer] neoplasm of bone this procedure Secondary and are in the unspecified results malignant neoplasm section. of axilla and upper limb lymph nodes CALCIUM LEVEL Routine 10/23/2022 12:23 Secondary malignant Res ults for PM [employer] neoplasm of bone this procedure Secondary and are in the unspecified results malignant neoplasm section. of axilla and upper limb lymph nodes .GLOMERULAR FILTRATION Routine 10/23/2022 12:23 Secondary esther gnant Results for RATE PM [employer] neoplasm of bone this procedure Secondary and are in the unspecified results malignant neoplasm section. of axilla and upper limb lymph nodes SERUM CREATININE Routine 10/23/2022 12:23 Secondary malignant Results for PM [employer] neoplasm of bone this procedure Secondary and are in the unspecified results malignant neoplasm section. of axilla and upper limb lymph nodes ELECTROLYTE PANEL Routine 10/23/2022 12:23 Secondary malignant Results for PM [employer] neoplasm of bone this procedure Secondary and are in the unspecified results malignant neoplasm section. of axilla and upper limb lymph nodes BLOOD UREA NITROGEN Routine 10/23/2022 12:23 Secondary maligna nt Results for PM [employer] neoplasm of bone this procedure Secondary and are in the unspecified results malignant neoplasm section. of axilla and upper limb lymph nodes GLUCOSE LEVEL Routine 10/23/2022 12:23 Secondary malignant Res ults for PM [employer] neoplasm of bone this procedure Secondary and are in the unspecified results malignant neoplasm section. of axilla and upper limb lymph nodes MAGNESIUM LEVEL Routine 10/23/2022 12:23 Secondary malignant R esults for PM [employer] neoplasm of bone this procedure Secondary and are in the unspecified results malignant neoplasm section. of axilla and upper limb lymph nodes PHOSPHORUS LEVEL Routine 10/23/2022 12:23 Secondary malignant Results for PM [employer] neoplasm of bone this procedure Secondary and are in the unspecified results malignant neoplasm section. of axilla and upper limb lymph nodes CARBOHYDRATE ANTIGEN Routine 10/23/2022 12:23 Secondary malign ant Results for 15-3 PM [employer] neoplasm of bone this procedure Secondary and are in the unspecified results malignant neoplasm section. of axilla and upper limb lymph nodes COMPLETE BLOOD COUNT W/ Routine 10/23/2022 12:23 Secondary mal ignant DIFFERENTIAL PM [employer] neoplasm of bone Secondary and unspecified malignant neoplasm of axilla and upper limb lymph nodes COMPREHENSIVE METABOLIC Routine 10/23/2022 12:23 Secondary mal ignant PANEL PM [employer] neoplasm of bone Secondary and unspecified malignant neoplasm of axilla and upper limb lymph nodes FRACTIONATED BILIRUBIN Routine 10/08/2022 9:41 Secondary malig nant Results for AM [employer] neoplasm of bone this procedure Secondary and are in the unspecified results malignant neoplasm section. of axilla and upper limb lymph nodes TOTAL PROTEIN Routine 10/08/2022 9:41 Secondary malignant Resu lts for AM [employer] neoplasm of bone this procedure Secondary and are in the unspecified results malignant neoplasm section. of axilla and upper limb lymph nodes ASPARTATE Routine 10/08/2022 9:41 Secondary malignant Resul ts for AMINOTRANSFERASE AM [employer] neoplasm of bon e this procedure Secondary and are in the unspecified results malignant neoplasm section. of axilla and upper limb lymph nodes ALANINE Routine 10/08/2022 9:41 Secondary malignant Resul ts for AMINOTRANSFERASE AM [employer] neoplasm of bon e this procedure Secondary and are in the unspecified results malignant neoplasm section. of axilla and upper limb lymph nodes ALKALINE PHOSPHATASE Routine 10/08/2022 9:41 Secondary maligna nt Results for AM [employer] neoplasm of bone this procedure Secondary and are in the unspecified results malignant neoplasm section. of axilla and upper limb lymph nodes ALBUMIN LEVEL Routine 10/08/2022 9:41 Secondary malignant Resu lts for AM [employer] neoplasm of bone this procedure Secondary and are in the unspecified results malignant neoplasm section. of axilla and upper limb lymph nodes CALCIUM LEVEL Routine 10/08/2022 9:41 Secondary malignant Resu lts for AM [employer] neoplasm of bone this procedure Secondary and are in the unspecified results malignant neoplasm section. of axilla and upper limb lymph nodes .GLOMERULAR FILTRATION Routine 10/08/2022 9:41 Secondary malig nant Results for RATE AM [employer] neoplasm of bone this procedure Secondary and are in the unspecified results malignant neoplasm section. of axilla and upper limb lymph nodes SERUM CREATININE Routine 10/08/2022 9:41 Secondary malignant R esults for AM [employer] neoplasm of bone this procedure Secondary and are in the unspecified results malignant neoplasm section. of axilla and upper limb lymph nodes ELECTROLYTE PANEL Routine 10/08/2022 9:41 Secondary malignant Results for AM [employer] neoplasm of bone this procedure Secondary and are in the unspecified results malignant neoplasm section. of axilla and upper limb lymph nodes BLOOD UREA NITROGEN Routine 10/08/2022 9:41 Secondary malignan t Results for AM [employer] neoplasm of bone this procedure Secondary and are in the unspecified results malignant neoplasm section. of axilla and upper limb lymph nodes GLUCOSE LEVEL Routine 10/08/2022 9:41 Secondary malignant Resu lts for AM [employer] neoplasm of bone this procedure Secondary and are in the unspecified results malignant neoplasm section. of axilla and upper limb lymph nodes DIFFERENTIAL Routine 10/08/2022 9:41 Secondary malignant Resul ts for AM [employer] neoplasm of bone this procedure Secondary and are in the unspecified results malignant neoplasm section. of axilla and upper limb lymph nodes .CBC Routine 10/08/2022 9:41 Secondary malignant Resul ts for AM [employer] neoplasm of bone this procedure Secondary and are in the unspecified results malignant neoplasm section. of axilla and upper limb lymph nodes FREE THYROXINE Routine 10/08/2022 9:41 Secondary and Results f or AM [employer] unspecified this procedure malignant neoplasm are in th e of axilla and upper results limb lymph nodes section. Personal history of malignant neoplasm of breast Secondary malignant neoplasm of bone THYROID STIMULATING Routine 10/08/2022 9:41 Secondary and Resu lts for HORMONE AM [employer] unspecified this procedure malignant neoplasm are in th e of axilla and upper results limb lymph nodes section. Personal history of malignant neoplasm of breast Secondary malignant neoplasm of bone PHOSPHORUS LEVEL Routine 10/08/2022 9:41 Secondary malignant R esults for AM [employer] neoplasm of bone this procedure Secondary and are in the unspecified results malignant neoplasm section. of axilla and upper limb lymph nodes MAGNESIUM LEVEL Routine 10/08/2022 9:41 Secondary malignant Re sults for AM [employer] neoplasm of bone this procedure Secondary and are in the unspecified results malignant neoplasm section. of axilla and upper limb lymph nodes CARBOHYDRATE ANTIGEN Routine 10/08/2022 9:41 Secondary maligna nt Results for 15-3 AM [employer] neoplasm of bone this procedure Secondary and are in the unspecified results malignant neoplasm section. of axilla and upper limb lymph nodes COMPREHENSIVE METABOLIC Routine 10/08/2022 9:41 Secondary esther gnant PANEL AM [employer] neoplasm of bone Secondary and unspecified malignant neoplasm of axilla and upper limb lymph nodes COMPLETE BLOOD COUNT W/ Routine 10/08/2022 9:41 Secondary esther gnant DIFFERENTIAL AM [employer] neoplasm of bone Secondary and unspecified malignant neoplasm of axilla and upper limb lymph nodes AP IHC HER2/CHARMAINE Routine 10/01/2022 11:33 Secondary malignant MATERIAL REQUEST AM [employer] neoplasm of bon e 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 of axilla and upper limb lymph nodes Skin nodule Personal history of malignant neoplasm of breast FRACTIONATED BILIRUBIN Routine 09/05/2022 10:36 Secondary esther gnant Results for AM CDT neoplasm of bone this procedure Secondary and are in the unspecified results malignant neoplasm section. of axilla and upper limb lymph nodes TOTAL PROTEIN Routine 09/05/2022 10:36 Secondary malignant Res ults for AM CDT neoplasm of bone this procedure Secondary and are in the unspecified results malignant neoplasm section. of axilla and upper limb lymph nodes ASPARTATE Routine 09/05/2022 10:36 Secondary malignant Resu lts for AMINOTRANSFERASE AM CDT neoplasm of bon e this procedure Secondary and are in the unspecified results malignant neoplasm section. of axilla and upper limb lymph nodes ALANINE Routine 09/05/2022 10:36 Secondary malignant Resu lts for AMINOTRANSFERASE AM CDT neoplasm of bon e this procedure Secondary and are in the unspecified results malignant neoplasm section. of axilla and upper limb lymph nodes ALKALINE PHOSPHATASE Routine 09/05/2022 10:36 Secondary malign ant Results for AM CDT neoplasm of bone this procedure Secondary and are in the unspecified results malignant neoplasm section. of axilla and upper limb lymph nodes ALBUMIN LEVEL Routine 09/05/2022 10:36 Secondary malignant Res ults for AM CDT neoplasm of bone this procedure Secondary and are in the unspecified results malignant neoplasm section. of axilla and upper limb lymph nodes CALCIUM LEVEL Routine 09/05/2022 10:36 Secondary malignant Res ults for AM CDT neoplasm of bone this procedure Secondary and are in the unspecified results malignant neoplasm section. of axilla and upper limb lymph nodes .GLOMERULAR FILTRATION Routine 09/05/2022 10:36 Secondary esther gnant Results for RATE AM CDT neoplasm of bone this procedure Secondary and are in the unspecified results malignant neoplasm section. of axilla and upper limb lymph nodes SERUM CREATININE Routine 09/05/2022 10:36 Secondary malignant Results for AM CDT neoplasm of bone this procedure Secondary and are in the unspecified results malignant neoplasm section. of axilla and upper limb lymph nodes ELECTROLYTE PANEL Routine 09/05/2022 10:36 Secondary malignant Results for AM CDT neoplasm of bone this procedure Secondary and are in the unspecified results malignant neoplasm section. of axilla and upper limb lymph nodes BLOOD UREA NITROGEN Routine 09/05/2022 10:36 Secondary maligna nt Results for AM CDT neoplasm of bone this procedure Secondary and are in the unspecified results malignant neoplasm section. of axilla and upper limb lymph nodes GLUCOSE LEVEL Routine 09/05/2022 10:36 Secondary malignant Res ults for AM CDT neoplasm of bone this procedure Secondary and are in the unspecified results malignant neoplasm section. of axilla and upper limb lymph nodes DIFFERENTIAL Routine 09/05/2022 10:36 Secondary malignant Resu lts for AM CDT neoplasm of bone this procedure Secondary and are in the unspecified results malignant neoplasm section. of axilla and upper limb lymph nodes .CBC Routine 09/05/2022 10:36 Secondary malignant Resu lts for AM CDT neoplasm of bone this procedure Secondary and are in the unspecified results malignant neoplasm section. of axilla and upper limb lymph nodes CARBOHYDRATE ANTIGEN Routine 09/05/2022 10:36 Secondary malign ant Results for 15-3 AM CDT neoplasm of bone this procedure Secondary and are in the unspecified results malignant neoplasm section. of axilla and upper limb lymph nodes MAGNESIUM LEVEL Routine 09/05/2022 10:36 Secondary malignant R esults for AM CDT neoplasm of bone this procedure Secondary and are in the unspecified results malignant neoplasm section. of axilla and upper limb lymph nodes PHOSPHORUS LEVEL Routine 09/05/2022 10:36 Secondary malignant Results for AM CDT neoplasm of bone this procedure Secondary and are in the unspecified results malignant neoplasm section. of axilla and upper limb lymph nodes COMPREHENSIVE METABOLIC Routine 09/05/2022 10:36 Secondary mal ignant PANEL AM CDT neoplasm of bone Secondary and unspecified malignant neoplasm of axilla and upper limb lymph nodes COMPLETE BLOOD COUNT W/ Routine 09/05/2022 10:36 Secondary mal ignant DIFFERENTIAL AM CDT neoplasm of bone Secondary and unspecified malignant neoplasm of axilla and upper limb lymph nodes after 09/04/2022 Results POC Glucose Screen - Fingerstick (09/03/2023 8:27 AM CDT)Only the most recent of 15 resultswithin the time period is included. Analysis Performed At Patho logist Time Signature Glucose Screen 77 70 - 99 09/03/2023 [place] mg/dL 8:[address] [facility] POC Sample Capillary 09/03/2023 [place] Type 8:[address] [facility] Specimen Anatomical Collection Method Collection Time Receive d Time (Source) Location / / Volume Laterality Blood 09/03/2023 8:27 AM 3 8:30 CDT AM CDT Narrative [facility] - 3 8:30 AM CDT Capillary blood samples, e.g. obtained by fingerstick, may have inaccurate results in patients with d ecreased peripheral blood flow. Method d escription: All results are measured using Electrochemistry test methodology. The glucose in the sample mixes with the reagents on the test strip. The reaction pr oduces an electric current. The amount o f current produced is proportional to the glucose concentration in the blood. All POC Glucose screen test results, inc luding critical values, must be interpreted and evaluated in the context of the patients' clinical findings. It is recommended to confirm any questionable test results by core lab methodology. Vicenta Li MD PhD POCT ORDERABLES - DEVICE Performing Organization Address City/State/ZIP Code Phon e Number [facility] Unless otherwise noted, [place] [address] [place] all lab tests performed by: Division of Pathology and Laboratory Medicine [id number] Chest with Contrast (09/02/2023 3:27 PM CDT) Anatomical Region Laterality Modality Chest Computed Tomography Specimen (Source) Anatomical Collection Method Collection Time Re ceived Time Location / / Volume Laterality 09/02/2023 3:29 PM CDT Impressions 09/02/2023 3:50 PM CDT Increasing extensive airspace opacities throughout the left lung predominantly groundglass in density affecting the left upper lobe more so than the left lower lobe. Findings are most concerning for mul tifocal pneumonia though may be inflamma tory and related to drug reaction. Stable extensive right-sided lobulated p leural thickening with a small partially loculated pleural effusion may be related to talc pleurodesis and/or pleural metastasis. Stable mixed lucent and sclerotic bony m etastasis. Fullness in the left renal collecting sy stem, incompletely imaged similar relative to the previous study. Clinical correlation recommended. ACTIONABLE ITEMS/RECOMMENDATIONS: See Im pression Narrative 09/02/2023 3:50 PM CDT FULL RESULT: Examination: CT CHEST W CONTRAST on 08/11 3:27 PM. 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 Breast cancer. Metastatic disease to bone. Indication: Negative COVID-19 Test Resul t, PNEUMONITIS VS PNEUMONIA Comparison: 08/23/2023 Technique: CT of the chest is performed with intravenous contrast Findings: Lungs/Airways/Pleura: Central airways ar e patent. Small loculated right pleural effusion. Stable areas of right-sided pleural thickening, some with high density, may related to talc pleurodesis and/or metastatic disease. No left pleural effusion. No sign of a pneumothorax. Numerous bilateral pulmonary nodules and lung parenchyma similar relative to 08/23/2023 nonspecific but most concerning for metastatic disease, up to 7 mm in diameter. Extensive airspace opacities throughout the left upper lobe and left lower lobe have increased predominantly groundglass in density and may be related to multifocal infection. Less likely may be due to an inflammatory process including drug reaction. Neck/Mediastinum/Nodes/Heart: The visual ized portions of the thyroid gland are unremarkable. No enlarged supraclavicular, or axillary nodes. Clips are present over the right axillary region. Soft tissue in the superior mediastinum in the right paratracheal region concerning for trace metastatic disease appears similar relative to the previous study 1.4 cm in diameter image 29. Enlarged node s remain in the right hilar region 1 cm in diameter. Prominent paracardiac nodes are present similar relative to the previous study image 75. No enlarged left hilar nodes. Cardiac chambers are not enlarged. Mild coronary artery calcification. No sign of a pericardial effusion. Upper abdomen: No focal liver lesions. N o adrenal gland nodularity. Fullness in the left renal collecting system, incompletely imaged. Bones/Soft Tissues: Stable extensive ulises ent and sclerotic bony metastatic disease throughout the skeleton with lesions throughout the spine, clavicles and ribs. Procedure Note Maxi Sheth MD - 09/02/2023Formatt ing of this note might be different from the original. FULL RESULT: Examination: CT CHEST W CONTRAST on 08/11 3:27 PM. 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 Breast cancer. Metastatic disease to bone. Indication: Negative COVID-19 Test Resul t, PNEUMONITIS VS PNEUMONIA Comparison: 08/23/2023 Technique: CT of the chest is performed with intravenous contrast Findings: Lungs/Airways/Pleura: Central airways ar e patent. Small loculated right pleural effusion. Stable areas of right-sided pleural thickening, some with high density, may related to talc pleurodesis and/or metastatic disease. No left pleural effusion. No sign of a pneumothorax. Numerous bilateral pulmonary nodules and lung parenchyma similar relative to 08/23/2023 nonspecific but most concerning for metastatic disease, up to 7 mm in diameter. Extensive airspace opacities throughout the left upper lobe and left lower lobe have increased predominantly groundglass in density and may be related to multifocal infection. Less likely may be due to an inflammatory process including drug reaction. Neck/Mediastinum/Nodes/Heart: The visual ized portions of the thyroid gland are unremarkable. No enlarged supraclavicular, or axillary nodes. Clips are present over the right axillary region. Soft tissue in the superior mediastinum in the right paratracheal region concerning for trace metastatic disease appears similar relative to the previous study 1.4 cm in diameter image 29. Enlarged nodes remain in the right hilar region 1 cm in diameter. Pro minent paracardiac nodes are present similar relative to the previous study image 75. No enlarged left hilar nodes. Cardiac chambers are not enlarged. Mild coronary artery calcification. No sign of a pericardial effusion. Upper abdomen: No focal liver lesions. N o adrenal gland nodularity. Fullness in the left renal collecting system, incompletely imaged. Bones/Soft Tissues: Stable extensive ulises ent and sclerotic bony metastatic disease throughout the skeleton with lesions throughout the spine, clavicles and ribs. IMPRESSION: Increasing extensive airspace opacities throughout the left lung predominantly groundglass in density affecting the left upper lobe more so than the left lower lobe. Findings are most concerning for multifocal pneumonia though may be inflammatory and related to drug reaction. Stable extensive right-sided lobulated p leural thickening with a small partially loculated pleural effusion may be related to talc pleurodesis and/or pleural metastasis. Stable mixed lucent and sclerotic bony m etastasis. Fullness in the left renal collecting sy stem, incompletely imaged similar relative to the previous study. Clinical correlation recommended. ACTIONABLE ITEMS/RECOMMENDATIONS: See Im pression Aden Muñoz BRITT IMG CT ORDERABLES (ABNORMAL) Comprehensive Metabolic Panel (09/01/2023 6:56 AM CDT)Only the most recent of3 resultswithin the time period is included. P athologist Signature Bilirubin Total <0.3 <=1.2 09/01/2023 [place] MD [place] N mg/dL 7:44 AM [facility] [place] Comment: Direct and indirect bilirubin will not b e reported when Total bilirubin result is <0.3 mg/dL Indocyanine Green (ICG) may cause falsel y elevated bilirubin results. Total and direct bilirubin must not be measured from samples containing indocyanine green. False elevation of total bilirubin can be seen in patients with IgG concentration s above 28 g/L. This result was previously suppressed fr om the chart. Bilirubin Direct 09/01/2023 7:44 AM CDT [facility] Comment: Direct and indirect bilirubin will not b e reported when Total bilirubin result is <0.3 mg/dL Indocyanine Green (ICG) may cause falsel y elevated bilirubin results. Total and direct bilirubin must not be measured from samples containing indocyanine green. Bilirubin Indirect 09/01/2023 7:44 AM CD T [facility] Comment: Direct and indirect bilirubin w ill not be reported when Total bilirubin result is <0.3 mg/dL eGFR 106 >=60 mL/min/1.73 sq. m 09/01/2023 7:44 A M [facility] Comment: The eGFRcr is calculated with the 2020 KD-EPI creatinine equation using creatinine, patient's age, and sex for adults 18 years of age and older. Other factors, especially muscle mass, may affect accuracy and need to be considered. According to the Kidney Disease: Improvi ng Global Outcomes (KDIGO) CKD Work Group 2012 Clinical Practice Guideline, chronic kidney disease (CKD) is defined as the abnormalities of kidney structure or fu nction, present for more than 3 months, with implications for health. CKD should be classified by cause, GFR category, and albuminuria category. KDIGO guidelines provide the following GFR categories. Stage / Description / GFR mL/min/1.73 m2 : G1* / Normal or high / >= 90 G2* / Mildly decreased / 60-89 G3a / Mildly to moderately decreased / 4 5-59 G3b / Moderately to severely decreased / 30-44 G4 / Severely decreased / 15-29 G5 / Kidney failure / <15 *In the absence of evidence of kidney da mage, neither G1 nor G2 fulfill criteria for CKD. Tot Protein 5.9 (L) 6.4 - 8.3 gm/dL 09/01/2023 7:44 AM [facility] Comment: This result was previously supp ressed from the chart. Calcium Level Total 9.6 8.2 - 10.2 mg/dL 09/01/2023 7: 44 AM [facility] Comment: This result was previously supp ressed from the chart. Alkaline Phosphatase 205 (H) 35 - 104 U/L 09/01/2023 7:44 AM [facility] Comment: This result was previously supp ressed from the chart. Albumin Level 2.8 (L) 3.5 - 5.2 gm/dL 09/01/2023 7:44 AM [facility] Comment: This result was previously supp ressed from the chart. AST 21 <=32 U/L 09/01/2023 7:[address] [facility] MD Brizuela [facility] Comment: This result was previously supp ressed from the chart. ALT 14 <=33 U/L 09/01/2023 7:[address] [facility] MD Brizuela [facility] Comment: This result was previously supp ressed from the chart. Sodium Level 145 136 - 145 mmol/L 09/01/2023 7:44 AM [facility] Comment: This result was previously supp ressed from the chart. Potassium Level 4.4 3.4 - 4.5 mmol/L 09/01/2023 7:4 4 AM CDT [facility] Comment: This result was previously supp ressed from the chart. Chloride 105 98 - 107 mmol/L 09/01/2023 7:44 AM [facility] Comment: This result was previously supp ressed from the chart. CO2 34 (H) 22 - 29 mmol/L 09/01/2023 7:44 AM CDT [facility] Comment: This result was previously supp ressed from the chart. Anion Gap 6 4 - 14 mmol/L 09/01/2023 7:44 AM CDT [facility] Comment: This result was previously supp ressed from the chart. Creatinine 0.53 0.51 - 0.95 mg/dL 09/01/2023 7:44 AM CD T [facility] Comment: This result was previously supp ressed from the chart. BUN 12 6 - 23 mg/dL 09/01/2023 7:44 AM CDT [facility] Comment: This result was previously supp ressed from the chart. Glucose Level 107 (H) 70 - 99 mg/dL 09/01/2023 7:44 AM CDT [facility] Comment: Effective 06/05/16, the glucose reference intervals have been updated based on [place] [employer] guidelines (Standards of Medical Care in Diabetes 2016. Diabetes Care 2016; 39: S13-S22). Fasting blood glucose: Normal: 70-99 mg/dL Impaired fasting glucose (increased risk for diabetes or pre-diabetes): 100-125 mg/dL Diabetes mellitus: >/=126 mg/dL Random blood glucose: Normal: 70-199 mg/dL Note: Random glucose >100 mg/dL is assoc iated with increased risk for diabetes. This result was previously suppressed fr om the chart. Specimen Anatomical Collection Method / Collection Time Recei chanel Time (Source) Location / Volume Laterality Blood Venipuncture / 09/01/2023 6:56 09/01/2023 7:07 Unknown AM CDT AM CDT Tammie Brink DENTAL ASSISTANT INSTRUCTOR LAB BLOOD ORDERABLES Performing Organization Address [facility] Phon e Number [facility] Unless otherwise noted, [address] all lab tests performed by: Division of Pathology and Laboratory Medicine [address] [place], [place] [address]d Phosphorus Level (09/01/2023 6:56 AM CDT)Only the most recent of40 resultswithin the time period is included. P athologist Signature Phosphorus 3.9 2.5 - 4.5 09/01/2023 [place] CHARLES Level mg/dL 7:44 AM CDT [facility] Specimen Anatomical Collection Method / Collection Time Recei chanel Time (Source) Location / Volume Laterality Blood Venipuncture / 09/01/2023 6:56 09/01/2023 7:07 Unknown AM CDT AM CDT Tammie Torres APRN LAB BLOOD ORDERABLES Performing Organization Address [facility] Phon e Number [facility] Unless otherwise noted, [address] all lab tests performed by: Division of Pathology and Laboratory Medicine [address] [place], [place] [address] Magnesium Level (09/01/2023 6:56 AM CDT)Only the most recent of40 resultswithin the time period is included. P athologist Signature Magnesium Level 2.2 1.6 - 2.6 09/01/2023 [place] MD [place] N mg/dL 7:[address] [facility] Specimen Anatomical Collection Method / Collection Time Recei chanel Time (Source) Location / Volume Laterality Blood Venipuncture / 09/01/2023 6:56 09/01/2023 7:07 Unknown AM CDT AM CDT Tammie Torres APRN LAB BLOOD ORDERABLES Performing Organization Address [facility] Phon e Number [facility] Unless otherwise noted, [address] all lab tests performed by: Division of Pathology and Laboratory Medicine [address] [place] [address] Guys (ABNORMAL) .CBC (09/01/2023 6:55 AM CDT)Only the most recent of43 resultswithin the time period is included. Patholo gist Method Time Signature White Blood Cell 3.1 (L) 4.1 - 09/01/2023 NC 10.5 K/uL 7:[address] [facility] Red Blood Cell 2.75 (L) 3.99 - 09/01/2023 NC 5.46 M/uL 7:[address] [facility] Hemoglobin 8.1 (L) 12.2 - 09/01/2023 NC 15.3 g/dL 7:[address] [facility] Hematocrit 26.5 (L) 36.4 - 09/01/2023 NC 46.8 % 7:[address] [facility] Mean Cell Volume 96 82 - 99 09/01/2023 NC fL 7:[address] [facility] Mean Cell 29.5 26.6 - 09/01/2023 [place] Hemoglobin 33.2 pg 7:[address] [facility] Mean Cell 30.6 (L) 31.1 - 09/01/2023 [place] Hemoglobin 35.2 7:14 AM [facility] Concentration gm/dL [facility] RDW-SD 53.1 (H) 37.5 - 09/01/2023 NC 49.7 fL 7:[address] [facility] Red Cell Diameter 15.0 11.6 - 09/01/2023 NC Width 15.5 % 7:[address] [facility] Platelet 238 160 - 397 09/01/2023 NC K/uL 7:[address] [facility] Mean Platelet 9.2 9.1 - 09/01/2023 NC Volume 12.6 fL 7:[address] [facility] INRBC 0.0 0.0 - 0.1 09/01/2023 NC MD /100 WBC 7:[address] [facility] Comment: The INRBC (instrument NRBC) value reflec ts the enumeration of nucleated red blood cells contained i n a 200uL sample of whole blood analyzed by the instrumen t. This value may differ from the NRBC value reported in a manual differential, which is based on a 100 cell differentia l. Neutrophil % 72.4 43.2 - 72.7 % 09/01/2023 7:14 AM [facility] Lymphocyte % 15.3 (L) 16.8 - 46.2 % 09/01/2023 7:14 AM [facility] Monocyte % 9.1 5.1 - 12.5 % 09/01/2023 7:14 AM CDT [facility] Eosinophil % 0.0 (L) 0.4 - 6.3 % 09/01/2023 7:14 AM CDT [facility] Basophil % 0.3 0.2 - 1.4 % 09/01/2023 7:14 AM CDT [facility] IGRE % 2.9 (H) 0.1 - 1.5 % 09/01/2023 7:14 AM CDT [facility] Comment: The IGRE% includes Metamyelocyt es, Myelocytes and Promyelocytes. Neutrophil Abs 2.23 1.95 - 7.25 K/uL 09/01/2023 7:14 AM CDT [facility] Lymphocyte Abs 0.47 (L) 1.01 - 3.24 K/uL 09/01/2023 7:14 AM CDT [facility] Monocyte Abs 0.28 0.24 - 0.85 K/uL 09/01/2023 7:14 AM [facility] Eosinophil Abs 0.00 (L) 0.02 - 0.50 K/uL 09/01/2023 7:14 AM CDT [facility] Basophil Abs 0.01 (L) 0.02 - 0.09 K/uL 09/01/2023 7:14 AM [facility] IG Abs 0.09 0.01 - 0.12 K/uL 09/01/2023 7:14 AM CDT [facility] Specimen Anatomical Collection Method / Collection Time Recei chanel Time (Source) Location / Volume Laterality Blood Venipuncture / 09/01/2023 6:55 09/01/2023 7:07 Unknown AM CDT AM CDT Tammie Torres APRN LAB BLOOD ORDERABLES Performing Organization Address City/State/ZIP Code Phon e Number [facility] Unless otherwise noted, [place] [address] [place] all lab tests performed by: Division of Pathology and Laboratory Medicine [address] [place] [address] US Arm Venous Doppler Right (08/31/2023 7:38 PM CDT)Only the most recent of3 resultswithin the time period is included. Anatomical Region Laterality Modality Arm, Extremity Ultrasound Specimen (Source) Anatomical Collection Method Collection Time Re ceived Time Location / / Volume Laterality 08/31/2023 7:47 PM CDT Impressions 08/31/2023 8:11 PM CDT No deep venous thrombosis in the right u pper extremity. ACTIONABLE ITEMS/RECOMMENDATIONS: None. I personally reviewed these image(s) omid ng with the resident's/fellow's interpretations, certify that if a procedure was performed I was physically present, and agree with the final report. Narrative 08/31/2023 8:11 PM CDT Examination: US ARM VENOUS DOPPLER RIGHT on 08/31/2023 7:38 PM. 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 Indication: Arm/Neck Swelling, Pain. Comparison: Ultrasound 06/27/2023 TECHNIQUE: Grayscale and color/spectra l Doppler ultrasound of the right upper extremity veins. FINDINGS: There is normal compressibility and spon taneous flow within the right internal jugular vein. Spontaneous flow within the proximal segment of the innominate vein and throughout the visualized right subcl nurys vein. Normal compressibility and s pontaneous flow within the right axillary, brachial, basilic and cephalic veins. Procedure Note Ankush Rajan MD - 08/31/2023For matting of this note might be different from the original. Examination: US ARM VENOUS DOPPLER RIGHT on 08/31/2023 7:38 PM. 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 Indication: Arm/Neck Swelling, Pain. Comparison: Ultrasound 06/27/2023 TECHNIQUE: Grayscale and color/spectral Doppler ultrasound of the right upper extremity veins. FINDINGS: There is normal compressibility and spon taneous flow within the right internal jugular vein. Spontaneous flow within the proximal segment of the innominate vein and throughout the visualized right subclavian vein. Normal compressibility and spontaneous f low within the right axillary, brachial, basilic and cephalic veins. IMPRESSION: No deep venous thrombosis in the right u pper extremity. ACTIONABLE ITEMS/RECOMMENDATIONS: None. I personally reviewed these image(s) omid ng with the resident's/fellow's interpretations, certify that if a procedure was performed I was physically present, and agree with the final report. Aric BENJAMING US ORDERABLES XR Chest 1 View Portable (08/31/2023 9:16 AM CDT) Anatomical Region Laterality Modality Chest Digital Radiography Specimen (Source) Anatomical Collection Method Collection Time Re ceived Time Location / / Volume Laterality 08/31/2023 10:01 AM CDT Impressions 08/31/2023 10:02 AM CDT Interval increase of left lung opacities and no significant change of right lung opacities that may represent pneumonia. ACTIONABLE ITEMS/RECOMMENDATIONS: See im pression. Narrative 08/31/2023 10:02 AM CDT FULL RESULT: Examination: XR CHEST 1 VW PORTABLE on 1 9:16 AM. 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 Lungs/Pleura/Mediastinum: Interval incre ase of left lung opacities. Remaining right lung opacities, grossly unchanged. Small bilateral pleural effusions. No evident pneumothorax. Prominent cardiomediastinal silhouette. Other: Left nephroureteral catheter, par tially imaged. Procedure Note Dayday Saunders MD - 08/31/2023Form atting of this note might be different from the original. FULL RESULT: Examination: XR CHEST 1 VW PORTABLE on 9:16 AM. 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 Lungs/Pleura/Mediastinum: Interval incre ase of left lung opacities. Remaining right lung opacities, grossly unchanged. Small bilateral pleural effusions. No evident pneumothorax. Prominent cardiomediastinal silhouette. Other: Left nephroureteral catheter, par tially imaged. IMPRESSION: Interval increase of left lung opacities and no significant change of right lung opacities that may represent pneumonia. ACTIONABLE ITEMS/RECOMMENDATIONS: See pression. Aric ROCHE IM DIAGNOSTIC IMAGING ORDER ZUHAIR (ABNORMAL) NT-Pro BNP (In-House) (08/31/2023 7:22 AM CDT)Only the most recent of 3 resultswithin the time period is included. P athologist Signature NT-ProBNP 541 (H) <=125 pg/mL 08/31/2023 [place] MD SOTO 12:48 PM CDT [facility] Specimen Anatomical Collection Method / Collection Time Recei chanel Time (Source) Location / Volume Laterality Blood Venipuncture / 08/31/2023 7:22 08/31/2023 7:49 Unknown AM CDT AM CDT Aric ROCHE LAB BLOOD ORDERABLES Performing Organization Address City/State/ZIP Code Phon e Number [facility] CANCER Unless otherwise noted, [place] [address] [place] all lab tests performed by: Division of Pathology and Laboratory Medicine [address] [facility] US Leg Venous Doppler Right (08/31/2023 12:18 AM CDT) Anatomical Region Laterality Modality Leg, Extremity Ultrasound Specimen (Source) Anatomical Collection Method Collection Time Re ceived Time Location / / Volume Laterality 08/31/2023 3:13 AM CDT Impressions 08/31/2023 7:57 AM CDT No deep venous thrombosis in the right lower extremity. ACTIONABLE ITEMS/RECOMMENDATIONS: None. I personally reviewed these image(s) omid blood with the resident's/fellow's interpretations, certify that if a procedure was performed I was physically present, and agree with the final report. Narrative 08/31/2023 7:57 AM CDT Examination: US LEG VENOUS DOPPLER RIGHT on 08/31/2023 12:18 AM. 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 Indication: Edema. Comparison: 08/25/2023 TECHNIQUE: Venous Doppler of right low er extremity. FINDINGS: In the right lower extremity, there is n ormal compressibility and spontaneous flow within the common femoral vein and its junction with the greater saphenous vein, femoral vein and its junction with the deep femoral vein, and popliteal vein. Visualized segments of the anterior and posterior tibial veins as well as the peroneal vein are patent. Limited view of the right peroneal and distal right anteri or tibial veins on grayscale images (but seen on longitudinal Doppler images). Subtle oval density on image labeled 691 2 adjacent to the right femoral vein/DFV probably represents a prominent fat lobule versus less likely a lymph node. No appreciable subcutaneous edema. Procedure Note Ankush Rajan MD - 08/31/2023For matting of this note might be different from the original. Examination: US LEG VENOUS DOPPLER RIGHT on 08/31/2023 12:18 AM. 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 Indication: Edema. Comparison: 08/25/2023 TECHNIQUE: Venous Doppler of right lower extremity. FINDINGS: In the right lower extremity, there is n ormal compressibility and spontaneous flow within the common femoral vein and its junction with the greater saphenous vein, femoral vein and its junction with the deep femoral vein, and popliteal vein. Visual ized segments of the anterior and posterior tibial veins as well as the peroneal vein are patent. Limited view of the right peroneal and distal right anterior tibial veins on grayscale images (but seen on longitudin al Doppler images). Subtle oval density on image labeled 691 2 adjacent to the right femoral vein/DFV probably represents a prominent fat lobule versus less likely a lymph node. No appreciable subcutaneous edema. IMPRESSION: No deep venous thrombosis in the right l ower extremity. ACTIONABLE ITEMS/RECOMMENDATIONS: None. I personally reviewed these image(s) omidrudy blood with the resident's/fellow's interpretations, certify that if a procedure was performed I was physically present, and agree with the final report. Howard Helms MD IMG US ORDERABLES General Laboratory Add-On Test (08/29/2023 11:32 AM CDT)Only the most recent of4 resultswithin the time period is included. [facility] gist Method Time Signature Ordered Test Added [facility] Test Needed Hemoglobin A1c [facility] Specimen Anatomical Collection Method Collection Time Receive d Time (Source) Location / / Volume Laterality Existing 08/29/2023 11:32 08/29/2023 AM CDT 11:32 AM CDT Nga ROCHE LAB BLOOD ORDERABLES Performing Organization Address City/State/ZIP Code Phon e Number [facility] CANCER Unless otherwise noted, [place] [address] [place] all lab tests performed by: Division of Pathology and Laboratory Medicine [address] [place] [address] .Serum Creatinine (08/29/2023 7:12 AM CDT)Only the most recent of40 results within the time period is included. athologist Signature Creatinine 0.57 0.51 - 0.95 [facility] mg/dL [facility] Specimen Anatomical Collection Method Collection Time Receive d Time (Source) Location / / Volume Laterality Blood 08/29/2023 7:12 AM 3 7:26 CDT AM CDT Tammie Melissa [place] LAB BLOOD ORDERABLES Performing Organization Address City/[facility] Phon e Number [facility] CANCER Unless otherwise noted, [address] all lab tests performed by: Division of Pathology and Laboratory Medicine [address] Glomerular Filtration Rate (08/29/2023 7:12 AM CDT)Only the most recent of40 resultswithin the time period is included. athologist Signature eGFR 105 >=60 [facility] mL/min/1.73 [facility] sq. m Comment: The eGFRcr is calculated with the 2020 KD-EPI creatinine equation using creatinine, patient's age, and sex for adults 18 years of age and older. Other factors, especially muscle mass, may affect accuracy and need to be considered. According to the Kidney Disease: Improvi ng Global Outcomes (KDIGO) CKD Work Group 2012 Clinical Practice Guideline, chronic kidney disease (CKD) is defined as the abnormalities of kidney structure or function, present for more than 3 months, with implications for health. CKD should be c lassified by cause, GFR category, and albuminuria category. KDIGO guidelines provide the following GFR categories Stage Description GFR mL/min/1.73 m2 G1* Normal or high >= 90 G2* Mildly decreased 60-89 G3a Mildly to moderately decreased 45-59 G3b Moderately to severely decreased 30- 44 G4 Severely decreased 15-29 G5 Kidney failure <15 *In the absence of evidence of kidney da mage, neither G1 nor G2 fulfill criteria for CKD. Specimen Anatomical Collection Method Collection Time Receive d Time (Source) Location / / Volume Laterality Blood 08/29/2023 7:12 AM 3 7:26 CDT AM CDT Tammie Torres APRN LAB BLOOD ORDERABLES Performing Organization Address City/[facility] Code Phon e Number [facility] Unless otherwise noted, [address] all lab tests performed by: Division of Pathology and Laboratory Medicine [address] Fractionated Bilirubin (08/29/2023 7:12 AM CDT)Only the most recent of36 results within the time period is included. [facility] Bili Total 0.4 <=1.2 mg/dL [facility] Comment: Indocyanine Green (ICG) may cause falsel y elevated bilirubin results. Total and direct bilirubin must not be measured from samples containing indocyanine green. False elevation of total bilirubin can b e seen in patients with IgG concentrations above 28 g/L. Bili Direct <0.2 <=0.3 mg/dL [facility] Comment: Indocyanine Green (ICG) may cau se falsely elevated bilirubin results. Total and direct bilirubin must not be measure d from samples containing indocyanine green. Bili Indirect See Note 0.0 - 0.9 mg/dL [place] MD [facility] Comment: Unable to calculate Indirect Bi lirubin result due to some parameters are outside reportable range Specimen Anatomical Collection Method Collection Time Receive d Time (Source) Location / / Volume Laterality Blood 08/29/2023 7:12 AM 7:26 CDT AM CDT Tammie Torres APRN LAB BLOOD ORDERABLES Performing Organization Address City/State/ZIP Code Phon e Number [facility] Unless otherwise noted, [place] [address] [place] all lab tests performed by: Division of Pathology and Laboratory Medicine [address] [place] [address] (ABNORMAL) Differential (08/29/2023 7:12 AM CDT)Only the most recent of40 resultswithin the time period is included. [facility] Neutrophil % 78.4 (H) 43.2 - [facility] 72.7 % [facility] Lymphocyte % 13.1 (L) 16.8 - [facility] 46.2 % [facility] Monocyte % 6.7 5.1 - 12.5 [facility] % [facility] Eosinophil % 0.5 0.4 - 6.3 [facility] % [facility] Basophil % 0.2 0.2 - 1.4 [facility] % [facility] IGRE % 1.1 0.1 - 1.5 [facility] Comment: IGRE % count includes Metamyelo cytes, Myelocytes, and Promyelocytes. Neutrophil Abs 4.41 1.95 - 7.25 K/uL [place] MD [facility] Lymphocyte Abs 0.74 (L) 1.01 - 3.24 K/uL [place] MD [facility] Monocyte Abs 0.38 0.24 - 0.85 K/uL [place] [facility] Eosinophil Abs 0.03 0.02 - 0.50 K/uL [place] [facility] Basophil Abs 0.01 (L) 0.02 - 0.09 K/uL [facility] IG Abs 0.06 0.01 - 0.12 K/uL [facility] Specimen Anatomical Collection Method Collection Time Receive d Time (Source) Location / / Volume Laterality Blood 08/29/2023 7:12 AM 3 7:23 CDT AM CDT Tammie Torres APRN LAB BLOOD ORDERABLES Performing Organization Address City/[facility]/ZIP Code Phon e Number [facility] Unless otherwise noted, [address] all lab tests performed by: Division of Pathology and Laboratory Medicine [facility]5 [facility] BUN (08/29/2023 7:12 AM CDT)Only the most recent of39 resultswithin the time period is included. P athologist Signature BUN 11 6 - 23 [facility] mg/dL [facility] Specimen Anatomical Collection Method Collection Time Receive d Time (Source) Location / / Volume Laterality Blood 08/29/2023 7:12 AM 3 7:26 CDT AM CDT Tammie Torres APRN LAB BLOOD ORDERABLES Performing Organization Address City/[facility]/ZIP [facility] Phon e Number [facility] Unless otherwise noted, [address] all lab tests performed by: Division of Pathology and Laboratory Medicine [facility]5 [facility] ALT (08/29/2023 7:12 AM CDT)Only the most recent of37 resultswithin the time period is included. P athologist Signature ALT 14 <=33 U/L [facility] Specimen Anatomical Collection Method Collection Time Receive d Time (Source) Location / / Volume Laterality Blood 08/29/2023 7:12 AM 3 7:26 CDT AM CDT Tammie Torres APRN LAB BLOOD ORDERABLES Performing Organization Address City/[facility]/ZIP Code Phon e Number [facility] CAN[facility]ER Unless otherwise noted, [address] all lab tests performed by: Division of Pathology and Laboratory Medicine [address] Aspartate Aminotransferase (08/29/2023 7:12 AM CDT)Only the most recent of37 resultswithin the time period is included. P athologist Signature AST 27 <=32 U/L [facility] Specimen Anatomical Collection Method Collection Time Receive d Time (Source) Location / / Volume Laterality Blood 08/29/2023 7:12 AM 3 7:26 CDT AM CDT Tammie Torres APRN LAB BLOOD ORDERABLES Performing Organization Address [facility]/ZIP Code Phon e Number [facility] CANCER Unless otherwise noted, [address] all lab tests performed by: Division of Pathology and Laboratory Medicine [address] Total Protein (08/29/2023 7:12 AM CDT)Only the most recent of36 resultswithin the time period is included. P athologist Signature Total Protein 6.9 6.4 - 8.3 [facility] g/dL [facility] Specimen Anatomical Collection Method Collection Time Receive d Time (Source) Location / / Volume Laterality Blood 08/29/2023 7:12 AM 3 7:26 CDT AM CDT Tammie Torres APRN LAB BLOOD ORDERABLES Performing Organization Address City/[facility]/ZIP Code Phon e Number [facility] CAN[facility]ER Unless otherwise noted, [address] all lab tests performed by: Division of Pathology and Laboratory Medicine [address] (ABNORMAL) Alkaline Phosphatase (08/29/2023 7:12 AM CDT)Only the most recent of 37 resultswithin the time period is included. P athologist Signature Alk Phos 162 (H) 35 - 104 [facility] U/L [facility] Specimen Anatomical Collection Method Collection Time Receive d Time (Source) Location / / Volume Laterality Blood 08/29/2023 7:12 AM 3 7:26 CDT AM CDT Tammie Torres APRN LAB BLOOD ORDERABLES Performing Organization Address City/[facility] Phon e Number [facility] Unless otherwise noted, [address] all lab tests performed by: Division of Pathology and Laboratory Medicine [address] (ABNORMAL) Hemoglobin A1c (08/29/2023 7:12 AM CDT)Only the most recent of3 resultswithin the time period is included. athologist Signature A1C 6.1 (H) 4.3 - 5.6 % [facility] Comment: HbA1c values >=6.5% are diagnostic of di abetes mellitus. Diagnosis should be confirmed by repeat testing. Therapeutic Action suggested: >8.0% HbA1 c; Goal of therapy: <7.0% HbA1c Specimen Anatomical Collection Method Collection Time Receive d Time (Source) Location / / Volume Laterality Blood 08/29/2023 7:12 AM 3 CDT 12:07 PM CDT Tammie Torres APRN LAB BLOOD ORDERABLES Performing Organization Address [facility] Phon e Number [facility] Unless otherwise noted, [address] all lab tests performed by: Division of Pathology and Laboratory Medicine [address] [facility] Glucose Level (08/29/2023 7:12 AM CDT)Only the most recent of36 resultswithin the time period is included. athologist Signature Glucose Level 90 70 - 99 [facility] mg/dL [facility] Comment: Effective 06/05/16, the glucose reference intervals have been updated based on [place] [employer] guidelines (Standards of Medical Care in Diabetes 2016. Diabetes Care 2016; 39: S13-S22). Fasting blood glucose: Normal: 70-99 mg/dL Impaired fasting glucose (increased risk for diabetes or pre-diabetes): 100- 125 mg/dL Diabetes mellitus: >/=126 mg/dL Random blood glucose: Normal: 70-199 mg/dL Note: Random glucose >100 mg/dL is assoc iated with increased risk for diabetes Specimen Anatomical Collection Method Collection Time Receive d Time (Source) Location / / Volume Laterality Blood 08/29/2023 7:12 AM 3 7:26 CDT AM CDT Tammie Torres APRN LAB BLOOD ORDERABLES Performing Organization Address City/[facility] Phon e Number [facility] CANCER Unless otherwise noted, [address] all lab tests performed by: Division of Pathology and Laboratory Medicine [address] (ABNORMAL) Calcium Level (08/29/2023 7:12 AM CDT)Only the most recent of39 resultswithin the time period is included. athologist Signature Calcium Lvl 10.3 (H) 8.4 - 10.2 [facility] mg/dL [facility] Specimen Anatomical Collection Method Collection Time Receive d Time (Source) Location / / Volume Laterality Blood 08/29/2023 7:12 AM 3 7:26 CDT AM CDT Tammie Torres APRN LAB BLOOD ORDERABLES Performing Organization Address [facility] Phon e Number [facility] CANCER Unless otherwise noted, [address] all lab tests performed by: Division of Pathology and Laboratory Medicine [address] (ABNORMAL) Albumin Level (08/29/2023 7:12 AM CDT)Only the most recent of37 resultswithin the time period is included. athologist Signature Albumin Lvl 3.4 (L) 3.5 - 5.2 [facility] gm/dL [facility] Specimen Anatomical Collection Method Collection Time Receive d Time (Source) Location / / Volume Laterality Blood 08/29/2023 7:12 AM 3 7:26 CDT AM CDT Tammie Torres APRN LAB BLOOD ORDERABLES Performing Organization Address City/[facility] Phon e Number [facility] CANCER Unless otherwise noted, [address] all lab tests performed by: Division of Pathology and Laboratory Medicine [address] (ABNORMAL) Electrolyte Panel (08/29/2023 7:12 AM CDT)Only the most recent of39 resultswithin the time period is included. athologist Signature Sodium Lvl 141 136 - 145 [facility] mEq/L [facility] Potassium Lvl 4.0 3.5 - 5.1 [facility] mEq/L [facility] Chloride 99 98 - 107 [facility] mEq/L [facility] CO2 30 (H) 22 - 29 [facility] mEq/L [facility] Anion Gap 12 4 - 14 [facility] mEq/L [facility] Specimen Anatomical Collection Method Collection Time Receive d Time (Source) Location / / Volume Laterality Blood 08/29/2023 7:12 AM 7:26 CDT AM CDT Tammie Melissa [place] LAB BLOOD ORDERABLES Performing Organization Address City/State/ZIP Code Phon e Number [facility] CANCER Unless otherwise noted, [address] all lab tests performed by: Division of Pathology and Laboratory Medicine [facility] [place] [address] Prepare RBC:[id number], 1 Units (08/28/2023 12:26 PM CDT) P athologist Signature PRBC Product -2 [facility] Comment: Orders on hold due to critical shortage. If transfusion need is critical, page Transfusion Medicine Physician on c all at [phone]. Specimen Anatomical Collection Method Collection Time Receive d Time (Source) Location / / Volume Laterality Blood 08/28/2023 12:26 08/28/2023 PM CDT 12:25 PM CDT Aden Toni [place] BLOOD BANK PRODUCT ORDERABLE S Performing Organization Address City/[facility]/ZIP Code Phon e Number [facility] Unless otherwise noted, [address] all lab tests performed by: Division of Pathology and Laboratory Medicine [address] [place] [address] [address] [employer] Expiration Date (08/28/2023 11:24 AM CDT)Only the most recent of3 results within the time period is included. Patholo gist Method Time Signature T & S 08/31/2023 [facility] Specimen Anatomical Collection Method Collection Time Receive d Time (Source) Location / / Volume Laterality Blood 08/28/2023 11:24 08/28/2023 AM CDT 12:14 PM CDT Aden Muñoz APRN BLOOD BANK TEST ORDERABLES Performing Organization Address City/[facility]/ZIP Code Phon e Number [facility] Unless otherwise noted, [address] all lab tests performed by: Division of Pathology and Laboratory Medicine [address] [place] [address] TMP Interpretation Antibody Screen Negative (08/28/2023 11:24 AM CDT)Only the most recent of3 resultswithin the time period is included. Patholo gist Method Time Signature TMP Auto Neg At the [place] MD [facility] Interp [facility]ENTER patient plasma shows no evidence of RBC alloantibodi es. Comment: MD Lucie LUJAN [id number] Dictated by: MD Lucie LUJAN [id number] Dictated Date/Time: 08.28.2023 15:09 PM CDT Transcribed Date/Time: 08.28.2023 15:09 PM CDT Electronically Signed By: MD Lucie ESQUIVEL [id number] on 08.28.2023 15:09 PM Specimen Anatomical Collection Method Collection Time Receive d Time (Source) Location / / Volume Laterality Blood 08/28/2023 11:24 08/28/2023 AM CDT 12:14 PM CDT Aden Muñoz APRN BLOOD BANK TEST ORDERABLES Performing Organization Address City/State/ZIP Code Phon e Number [facility] CAN[facility]ER Unless otherwise noted, [address] all lab tests performed by: Division of Pathology and Laboratory Medicine [address] [place] [address] ABORh (08/28/2023 11:24 AM CDT)Only the most recent of3 resultswithin the time period is included. P athologist Signature ABORh. O POS [facility] Specimen Anatomical Collection Method Collection Time Receive d Time (Source) Location / / Volume Laterality Blood 08/28/2023 11:24 08/28/2023 AM CDT 12:14 PM CDT Aden Muñoz APRN BLOOD BANK TEST ORDERABLES Performing Organization Address City/State/ZIP Code Phon e Number [facility]ER Unless otherwise noted, [address] all lab tests performed by: Division of Pathology and Laboratory Medicine [address] [place] [address] Antibody Screen (08/28/2023 11:24 AM CDT)Only the most recent of3 resultswithin the time period is included. P athologist Signature ABSC. Negative ABSC [facility] Specimen Anatomical Collection Method Collection Time Receive d Time (Source) Location / / Volume Laterality Blood 08/28/2023 11:24 08/28/2023 AM CDT 12:14 PM CDT Aden Muñoz APRN BLOOD BANK TEST ORDERABLES Performing Organization Address City/State/ZIP Code Phon e Number [facility]CER Unless otherwise noted, [place] [address] CENTER all lab tests performed by: Division of Pathology and Laboratory Medicine [address] [facility] (08/27/2023 3:58 PM CDT)Only the most recent of3 resultswithin the time period is included. Anatomical Region Laterality Modality Other Specimen (Source) Anatomical Collection Method Collection Time Re ceived Time Location / / Volume Laterality 08/28/2023 8:04 AM CDT Impressions 08/28/2023 8:04 AM CDT Tumor metrics have been completed. I personally reviewed these images and agree with the tumor metrics. 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 Procedure Note Trevor Soto MD - 08/28/2023For matting of this note might be different from the original. 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 IMPRESSION: Tumor metrics have been completed. I per sonally reviewed these images and agree with the tumor metrics. Lizet Garcia APRN IMG [facility] ORDERABLES NM Bone Scan Whole Body (08/27/2023 12:29 PM CDT)Only the most recent of5 resultswithin the time period is included. Anatomical Region Laterality Modality Whole Body Nuclear Medicine Specimen (Source) Anatomical Collection Method Collection Time Re ceived Time Location / / Volume Laterality 08/27/2023 1:09 PM CDT Impressions 08/27/2023 1:16 PM CDT Overall, the known multifocal osseous metastatic disease is not significantly changed in intensity since the prior study dated 07/11/2023. However, one of the focus in the upper thoracic spine has impro chanel with there has been development of a new focus in the right posterior 11th rib. ACTIONABLE ITEMS/RECOMMENDATIONS: None. Narrative 08/27/2023 1:16 PM CDT FULL RESULT: Examination: Whole-Body Bone Scan, 08/27 12:29 PM Clinical History: 57-year-old female wit h metastatic breast carcinoma Indication: Evaluation for osseous metas tases Comparison: CT abdomen/pelvis dated 08/10, bone scan dated 07/11/2023 Technique: Following the intravenous adm inistration of 22 mCi of technetium-99m MDP, anterior and posterior delayed whole body planar images were acquired. Findings: Multiple foci of abnormal radi otracer activity are again identified within the osseous skeleton including the posterior calvarium, sternum, bilateral ribs, bilateral clavicles, multiple levels of the spine, pelvis, right proximal fe mur, overall, not significantly changed in intensity since the prior study. A new focus of activity is identified within the right posterior 11th rib corresponding to an area of sclerosis. A focus in the upper thoracic spine has improved. Prominent activity is identified within the left renal collecting system consistent with known hydroureteronephrosis. Very faint activity is identified within the right kidney with expected activity in the urinary bladder Procedure Note Julio Santos MD - 08/27/2023Fo rmatting of this note might be different from the original. FULL RESULT: Examination: Whole-Body Bone Scan, 08/27 12:29 PM Clinical History: 57-year-old female wit h metastatic breast carcinoma Indication: Evaluation for osseous metas tases Comparison: CT abdomen/pelvis dated 08/10, bone scan dated 07/11/2023 Technique: Following the intravenous adm inistration of 22 mCi of technetium-99m MDP, anterior and posterior delayed whole body planar images were acquired. Findings: Multiple foci of abnormal radi otracer activity are again identified within the osseous skeleton including the posterior calvarium, sternum, bilateral ribs, bilateral clavicles, multiple levels of the spine, pelvis, right proximal femur, ove rall, not significantly changed in intensity since the prior study. A new focus of activity is identified within the right posterior 11th rib corresponding to an area of sclerosis. A focus in the upper thoracic spine has improved. Prominent activity is identified within the left renal collecting system consistent with known hydroureteronephrosis. Very faint activity is identified within the right kidney with expected activity in the urinary bladder IMPRESSION: Overall, the known multifocal osseous me tastatic disease is not significantly changed in intensity since the prior study dated 07/11/2023. However, one of the focus in the upper thoracic spine has improved with there has been development of a new focu s in the right posterior 11th rib. ACTIONABLE ITEMS/RECOMMENDATIONS: None. Jacob Toroip DENTAL ASSISTANT INSTRUCTOR IMG NM ORDERABLES CT Breast Simulation without Contrast (08/26/2023 10:15 AM CDT) Specimen (Source) Anatomical Location Collection Method / Collectio n Time Received Time / Laterality Volume Narrative Systemgenerated, Documentation - 023 10:33 AM CDT This procedure requires no interpretatio n from the radiologist. Sarahi Vallejo APRN IMG RO CT SIM ORDERABLES EKG, 12-Lead (Portable) (08/26/2023)Only the most recent of3 resultswithin the time period is included. Specimen (Source) Anatomical Location Collection Method / Collectio n Time Received Time / Laterality Volume Narrative This result has an attachment that is no t available. Rad Loza MD ECG ORDERABLES Performing Organization Address City/State/ZIP Code Phon e Number [facility]IN IECG CT Abdomen Pelvis with and without Contrast (08/25/2023 11:21 PM CDT) Anatomical Region Laterality Modality Abdomen, Pelvis Computed Tomography Specimen (Source) Anatomical Collection Method Collection Time Re ceived Time Location / / Volume Laterality 08/26/2023 1:26 AM CDT Impressions 08/26/2023 12:42 PM CDT 1. Minimally displaced fracture involving the right superior pubic ramus is new since 07/11/2023 and has been described on the radiograph of the right hip on 08/22/2023. The extent of osseous metastatic disease throughout the spine, pelvis an d proximal femurs has worsened since 07/11/2023 although exact comparison is difficult due to extensive disease and poorly marginated bone lesions. The remaining fi ndings in the lung bases are best assess ed on the CT chest from 08/23/2023. 2. Bibasilar lung opacities have furth er worsened since 08/10/2023 and represent a combination of metastatic disease and sequela of infection/inflammation. 3. Persistent moderate left hydronephr osis in spite of left nephroureteral stent. However, the degree of hydronephrosis is slightly improved since 07/11/2023. 4. New mildly enlarged right external iliac and inguinal nodes are indeterminate and will be monitored on follow-up imaging. ACTIONABLE ITEMS/RECOMMENDATIONS: See Im pression I personally reviewed these image(s) omid blood with the resident's/fellow's interpretations, certify that if a procedure was performed I was physically present, and agree with the final report. Narrative 08/26/2023 12:42 PM CDT FULL RESULT: Examination: CT ABDOMEN PELVIS W WO CONT RAST on 08/25/2023 11:21 PM. Clinical History: Pathological fracture in neoplastic disease, pelvis and femur Metastatic breast cancer refractory to m ultiple lines of treatment. The patient is currently on Protocol 2021-44with MICHAELLE-222 (CDK2 inhibitor) with Ribociclib and Fulvestrant.[facility]. She was seen in clinic on 08/22 and endorsed pain and shortness of breath. X-rays were obtained which demonstrated interval development of nondisplaced pathologic fractur e of the right superior and inferior pub ic rami. CT chest PE protocol was obtained which demonstrated PE without signs of right heart strain and multifocal ground glass opacities throughout the lungs, which may represent pneumonia or drug associated pneumonitis. She was seen by orthopedics and no acute orthopedic surgical intervention was recommended. Ortho recommended radiation oncology consult for potential acetabular/SPR/IPR radiation. Indication: Restaging, evaluate disease status Comparison: CT chest PE protocol 023, CT chest abdomen pelvis 07/11/2023. Technique: CT of the abdomen and pelvis is performed before and after the demonstration of intravenous contrast.. FINDINGS: Lower Thorax: Please refer to CT chest w ith contrast with PE protocol done on 08/23/2023 for further details regarding the findings in the lung bases. Stable changes of talc pleurodesis are seen in the right lower hemithorax along with small residual loculated right pleural effusion. Bibasilar lung opacities have further worsened since 08/10/2023 and represent a combination of metastatic disease and sequela of infection/inflammation. Hepatobiliary: A small cyst is seen in t he left liver medial segment. A hemangioma is again seen in the segment 7. No suspicious focal liver parenchymal lesions are identified. The gallbladder is well-d istended and is unremarkable. No intrahe patic or extrahepatic biliary ductal dilatation is seen. Spleen: A tiny cyst calcified melanoma i s seen in the spleen which is otherwise unremarkable. The spleen size is within normal limits. Pancreas: The pancreas is unremarkable w ithout any focal mass centered dilatation. Adrenal Glands: Both adrenal glands are unremarkable. Kidneys, Ureters, Bladder: The right kid kirsten is unremarkable without any focal masses, hydronephrosis or hydroureter. A double-J ureteric stent is placed in the left renal collecting system. There is per sistent moderate hydronephrosis of the r ight kidney in spite of stenting. The degree of hydronephrosis has slightly improved since 07/11/2023. No suspicious focal renal masses are identified. The urinary bladder is well-distended and is unremarkable. Gastrointestinal Tract: No abnormally di lated small bowel or large bowel loops are identified. No free fluid is seen in the abdomen and pelvis. Pelvic Organs: The uterus and both ovari es are unremarkable. Peritoneum/Retroperitoneum: No free intr aperitoneal fluid is seen. Lymph Nodes: No suspicious intra retrope ritoneal lymphadenopathy seen A few mildly enlarged right inguinal and external iliac nodes (series 302, images 142, 154, 160 and 178) are new since 07/11/2023 and are indeterminate but suspicious for met astatic disease. Vessels: The abdominal aorta and IVC dem onstrate normal course and caliber. Musculoskeletal: Extensive multifocal os seous metastatic disease is again seen involving the spine, pelvis and proximal femurs. Although exact comparison measurements are difficult due to extensive dise ase and poorly marginated bone lesions, the extent of involvement of the sacrum (particularly the involvement of right S2 sacral foramina in the extent of erosive changes within the posterior iliac bone s and sacrum has worsened since 07/11/2023 . Extensive erosive changes within the supra-acetabular regions bilaterally (right more than left) also shows significant worsening since 07/11/2023. In addition, a minimally displaced pathologic fracture is seen in the right superior pubic ramus, which is new since 07/11/2023. The metastatic disease involving the lower thoracic spine and lumbar spine also shows mor e extensive lucencies concerning for dis ease progression although the sclerotic components are grossly stable. The subcutaneous nodule in the left flan k remains grossly stable measuring 1.2 cm currently and 1.2 cm on 07/11/2023. This remains indeterminate for subcutaneous metastatic disease. Generalized anasarca is seen that is sli ghtly worse on the right side. Stable postsurgical changes flap reconstruction are seen in the anterior abdominal wall and lower thorax. Procedure Note Shantel Pennington MD - 08/26/2023Forma tting of this note might be different from the original. FULL RESULT: Examination: CT ABDOMEN PELVIS W WO CONT RAST on 08/25/2023 11:21 PM. Clinical History: Pathological fracture in neoplastic disease, pelvis and femur Metastatic breast cancer refractory to m ultiple lines of treatment. The patient is currently on Protocol 2021-44with MICHAELLE-222 (CDK2 inhibitor) with Ribociclib and Fulvestrant.Shewas admitted to the hospital for right hip pain. She was seen in clinic o n 08/22 and endorsed pain and shortness of breath. X-rays were obtained which demonstrated interval development of nondisplaced pathologic fracture of the right superior and inferior pubic rami. CT chest PE protocol was obtained which demonstrated PE without signs of right heart strain and multifocal ground glass opacities throughout the lungs, which may represent pneumonia or drug associated pneumonitis. She was seen by orthopedics and no acute orthopedic surgical intervention was recommended. Ortho recommended radiation oncology consult for potential acetabular/SPR/IPR radiation. Indication: Restaging, evaluate disease status Comparison: CT chest PE protocol 023, CT chest abdomen pelvis 07/11/2023. Technique: CT of the abdomen and pelvis is performed before and after the demonstration of intravenous contrast.. FINDINGS: Lower Thorax: Please refer to CT chest w ith contrast with PE protocol done on 08/23/2023 for further details regarding the findings in the lung bases. Stable changes of talc pleurodesis are seen in the right lower hemithorax along with small residual loc ulated right pleural effusion. Bibasilar lung opacities have further worsened since 08/10/2023 and represent a combination of metastatic disease and sequela of infection/inflammation. Hepatobiliary: A small cyst is seen in t he left liver medial segment. A hemangioma is again seen in the segment 7. No suspicious focal liver parenchymal lesions are identified. The gallbladder is well-distended and is unremarkable. No intrahepatic or extr ahepatic biliary ductal dilatation is seen. Spleen: A tiny cyst calcified melanoma i s seen in the spleen which is otherwise unremarkable. The spleen size is within normal limits. Pancreas: The pancreas is unremarkable w ithout any focal mass centered dilatation. Adrenal Glands: Both adrenal glands are unremarkable. Kidneys, Ureters, Bladder: The right kid kirsten is unremarkable without any focal masses, hydronephrosis or hydroureter. A double-J ureteric stent is placed in the left renal collecting system. There is persistent moderate hydronephrosis of the right kidney in sp ite of stenting. The degree of hydronephrosis has slightly improved since 07/11/2023. No suspicious focal renal masses are identified. The urinary bladder is well-distended and is unremarkable. Gastrointestinal Tract: No abnormally di lated small bowel or large bowel loops are identified. No free fluid is seen in the abdomen and pelvis. Pelvic Organs: The uterus and both ovari es are unremarkable. Peritoneum/Retroperitoneum: No free intr aperitoneal fluid is seen. Lymph Nodes: No suspicious intra retrope ritoneal lymphadenopathy seen A few mildly enlarged right inguinal and external iliac nodes (series 302, images 142, 154, 160 and 178) are new since 07/11/2023 and are indeterminate but suspicious for metastatic disease. Vessels: The abdominal aorta and IVC dem onstrate normal course and caliber. Musculoskeletal: Extensive multifocal os seous metastatic disease is again seen involving the spine, pelvis and proximal femurs. Although exact comparison measurements are difficult due to extensive disease and poorly marginated bone lesions, the extent of i nvolvement of the sacrum (particularly the involvement of right S2 sacral foramina in the extent of erosive changes within the posterior iliac bones and sacrum has worsened since 07/11/2023. Extensive erosive change s within the supra-acetabular regions bilaterally (right more than left) also shows significant worsening since 07/11/2023. In addition, a minimally displaced pathologic fracture is seen in the right superior p ubic ramus, which is new since 07/11/2023. The metastatic disease involving the lower thoracic spine and lumbar spine also shows more extensive lucencies concerning for disease progression although the sclerotic compo nents are grossly stable. The subcutaneous nodule in the left flan k remains grossly stable measuring 1.2 cm currently and 1.2 cm on 07/11/2023. This remains indeterminate for subcutaneous metastatic disease. Generalized anasarca is seen that is sli ghtly worse on the right side. Stable postsurgical changes flap reconstruction are seen in the anterior abdominal wall and lower thorax. IMPRESSION: 1. Minimally displaced fracture involvin g the right superior pubic ramus is new since 07/11/2023 and has been described on the radiograph of the right hip on 08/22/2023. The extent of osseous metastatic disease throughout the spine, pelvis and proxima l femurs has worsened since 07/11/2023 although exact comparison is difficult due to extensive disease and poorly marginated bone lesions. The remaining findings in the lung bases are best assessed on the CT chest from 08/23/2023. 2. Bibasilar lung opacities have further worsened since 08/10/2023 and represent a combination of metastatic disease and sequela of infection/inflammation. 3. Persistent moderate left hydronephros is in spite of left nephroureteral stent. However, the degree of hydronephrosis is slightly improved since 07/11/2023. 4. New mildly enlarged right external il iac and inguinal nodes are indeterminate and will be monitored on follow-up imaging. ACTIONABLE ITEMS/RECOMMENDATIONS: See Im pression I personally reviewed these image(s) omidrudy blood with the resident's/fellow's interpretations, certify that if a procedure was performed I was physically present, and agree with the final report. Jacob Richardson APRN IMG CT ORDERABLES CT Head without Contrast (08/25/2023 11:15 PM CDT) Anatomical Region Laterality Modality Head Computed Tomography Specimen (Source) Anatomical Collection Method Collection Time Re ceived Time Location / / Volume Laterality 08/25/2023 11:30 PM CDT Impressions 08/25/2023 11:38 PM CDT No acute intracranial hemorrhage, herniation, or hydrocephalus. ACTIONABLE ITEMS/RECOMMENDATIONS: None. Narrative 08/25/2023 11:38 PM CDT FULL RESULT: Examination: CT HEAD WO CONTRAST on 08/10 11:15 PM. CLINICAL HISTORY: Breast cancer with fev er and altered mental status INDICATION: Fever and altered mental sta tus COMPARISON: None. TECHNIQUE: CT head without IV contrast w as performed. FINDINGS: Intracranial: There is no acute hemorrhage or large va scular territory infarct. There is no mass effect or midline shift . The ventricles and extra-axial spaces ar e appropriate for age. Bone: There are no suspicious lytic or sclerot ic calvarial and skull base lesions. The mastoid air cells are clear. Extracranial: The orbits are unremarkable. Mucosal thickening within the paranasal sinuses. There is rightward nasal septal deviation with spur formation. Procedure Note Alonso Guerrero MD - 08/25/2023 FULL RESULT: Examination: CT HEAD WO CONTRAST on 08/10 11:15 PM. CLINICAL HISTORY: Breast cancer with fev er and altered mental status INDICATION: Fever and altered mental sta tus COMPARISON: None. TECHNIQUE: CT head without IV contrast w as performed. FINDINGS: Intracranial: There is no acute hemorrhage or large va scular territory infarct. There is no mass effect or midline shift . The ventricles and extra-axial spaces ar e appropriate for age. Bone: There are no suspicious lytic or sclerot ic calvarial and skull base lesions. The mastoid air cells are clear. Extracranial: The orbits are unremarkable. Mucosal thickening within the paranasal sinuses. There is rightward nasal septal deviation with spur formation. IMPRESSION: No acute intracranial hemorrhage, hernia tion, or hydrocephalus. ACTIONABLE ITEMS/RECOMMENDATIONS: None. Ramsey Garrett APRN IMG CT ORDERABLES (ABNORMAL) Urinalysis with Microscopic (08/25/2023 9:08 PM CDT)Only the most recent of3 resultswithin the time period is included. [facility] Method Time Signature UA Color Yellow Straw-Yel [facility] UA Appear Hazy (A) Clear [facility] UA Glucose NEG NEG mg/dL [facility] UA Bili NEG NEG [facility] UA Ketones NEG NEG mg/dL [facility] UA Spec Grav 1.012 1.003 - [facility] 1.035 [facility] UA Blood Large (A) NEG [facility] UA pH 6.0 5.0 - 9.0 [facility] UA Protein NEG NEG mg/dL [facility] UA Urobilinogen NEG NEG [facility] UA Nitrite NEG NEG [facility] UA Leuk Est NEG NEG [facility] UA WBC 2 0 - 2 [place] MD /[facility] Comment: Some reporting parameters within the Uri nalysis test have changed due to the implementation of new instrumentation in the [facility], allowing greater sensitivity of measurement. Urinalysis results rep orted by the [facility] using existing instrumentation, as well as Urinalysis t esting performed manually or by backup methodology at the [facility] will remain relatively unchanged. New reporting parameters and units will not be reported for all campuses. UA RBC 143 (H) 0 - 2 /HPF [facility] UA Mucous TRACE Not Seen-Trace /HPF [facility] UA Bacteria NOT SEEN NOT SEEN /HPF [facility] UA Squam Epi NOT SEEN None-Occasional /HPF [facility] Specimen Anatomical Collection Method Collection Time Receive d Time (Source) Location / / Volume Laterality Urine 08/25/2023 9:08 PM 3 9:13 CDT PM CDT Ramsey Garrett DENTAL ASSISTANT INSTRUCTOR URINE ORDERABLES Performing Organization Address City/State/ZIP Code Phon e Number [facility] Unless otherwise noted, [address] all lab tests performed by: Division of Pathology and Laboratory Medicine [address] [place] [address] Urine Culture (08/25/2023 9:08 PM CDT)Only the most recent of4 resultswithin the time period is included. P athologist Signature Final Report No growth [facility] Specimen Anatomical Collection Method Collection Time Receive d Time (Source) Location / / Volume Laterality Urine, Clean 08/25/2023 9:08 PM 3 Catch CDT 10:30 PM CDT María Jiang APRN MICROBIOLOGY - GENERAL ORDER ZUHAIR Performing Organization Address City/[facility]/ZIP Code Phon e Number [facility] Unless otherwise noted, [address] all lab tests performed by: Division of Pathology and Laboratory Medicine [id number], Serum (08/25/2023 8:45 PM CDT) athologist Signature [place] S-V <31 <80 pg/mL [facility] Comment: Interpretation: The Fungitell assay does not detect certain fungal species such as the genus Cryptococcus ( Alice et al. 1991) which produces very low levels of (1-3)-Beta-D -Glucan. The assay also does not detect the Zygomycetes such as Absid ia, Mucor and Rhizopus (Dandre et al. 1994) which are not know n to produce (1-3)-Ktnl-V-Qilnmg. In addition, the ye ast phase of Blastomyces dermatitidis produces little (1-3)-Beta- D-Glucan and may not be detected by the assay (Surendra et al. 2 007). Reference Range: Less than 60 pg/mL. Glucan values of les s than 60 pg/mL are interpreted as negative. Glucan values of 60 to 79 pg/mL are inte rpreted as indeterminate, and suggest a possible fungal infection. Additional sampling and testing of sera is required to interpret the results. Glucan values of greater than or equal t o 80 pg/mL are interpreted as positive. Due to the potential for environmental c ontamination when transferred to pour-off tubes, which can lead to false positive results, interpret positive results from samples provided in pour-off tubes with caution. Results s hould be used in conjunction with clinical findings, and should not f orm the sole basis for a diagnosis or treatment decision. The Fun gitell test is approved or cleared for in vitro diagnostic use by [employer] Food and Drug Administration. Modifications to the simona roved package insert have been made and the performance characteri stics for these modifications were determined by [employer] [employer]. If sample result is greater than 500 pg/ mL, physician may order a titer of the sample. Please contact [employer] if you would like to order a retest of this sample to obtain an actual value. Samples are held for 1 week after initia l testing date. Performed At: [facility] [address] [place] [address], [address] [place] [address] Resume Specialist: Dmitri Short, PhD DEJA (ASHLEY) CLIA # [id number] FLAG Interpretation: A = Abnormal, H = H igh, L = Low Specimen Anatomical Collection Method Collection Time Receive d Time (Source) Location / / Volume Laterality Blood 08/25/2023 8:45 PM 3 CDT 12:50 PM CDT Logan Kirkland MD MICROBIOLOGY - GENERAL ORDER ZUHAIR Performing Organization Address City/State/ZIP Code Phon e Number [facility] CANCER Unless otherwise noted, [place], [place] [id number] [place] [address] all lab tests performed by: Division of Pathology and Laboratory Medicine [address] [facility] (ABNORMAL) CMV Quant PCR (08/25/2023 8:45 PM CDT) athologist Signature CMV DNA PCR <34.5 (H) <=0.0 [facility] IU/mL CANCER CENTER Comment: Normal Range: Target Not Detected. Reportable Range: 34.5 to 4,000,000 CM V DNA IU/mL; values between 4,000,000 to 10,000,000 CMV DNA IU/mL may be reported but these should be interpreted with caution as this range of the assay has not been internally verified. The clinical s ignificance of CMV levels at 4,000,000 IU/ml verses those above 4,000,000 is unclear. Results are expressed in CMV DNA IU/ml p lasma. Methodology: The extraction and quanti tation of cytomegalovirus (CMV) DNA in human plasma is performed using the RASHMI 6800 System. Amplification of viral DNA is achieved using polymerase chain reacti on (PCR). Internal controls are included to assess for possible amplification inhibitors. I f inhibition is detected, the specimen is tested again and if inhibition is confirmed the specimen is resulted as "Invalid". When an "Invalid" results occurs, it is recommended to wait a minimum of 7-10 days before submitting a new specimen for testing. This is an FDA-approved assay and its pe rformance characteristics were verified by the microbiology laboratory at the [facility] [place]. Results must be interpreted within th e context of all relevant clinical and l aboratory findings. Specimen Anatomical Collection Method Collection Time Receive d Time (Source) Location / / Volume Laterality Blood 08/25/2023 8:45 PM 3 CDT 10:25 PM CDT Logan Kirkland MD MICROBIOLOGY - GENERAL ORDER ZUHAIR Performing Organization Address City/State/ZIP Code Phon e Number [facility] Unless otherwise noted, [address] all lab tests performed by: Division of Pathology and Laboratory Medicine [facility]5 Antionette Guys Lactic Acid, Venous (08/25/2023 8:45 PM CDT) P athologist Signature V Lactate 1.2 0.5 - 1.6 [facility] mmol/L [facility] Specimen Anatomical Collection Method Collection Time Receive d Time (Source) Location / / Volume Laterality Blood 08/25/2023 8:45 PM 3 8:53 CDT PM CDT María Jiang APRN LAB BLOOD ORDERABLES Performing Organization Address City/[facility]/ZIP Code Phon e Number [facility] Unless otherwise noted, [address] all lab tests performed by: Division of Pathology and Laboratory Medicine [facility]5 [place] Guys Blood Culture - Peripheral (08/25/2023 8:45 PM CDT) athologist [facility] [place] Final Report No growth [facility] Specimen Anatomical Collection Method Collection Time Receive d Time (Source) Location / / Volume Laterality Blood Peripheral blood 08/25/2023 8:45 PM 08/25 9:08 specimen / Unknown CDT PM CDT Narrative [facility] - 3 11:10 PM CDT One or both cultures bottles underfilled (< 5ml). This will result in decreased sensitivity in pathogen detection. María Jiang APRN MICROBIOLOGY - GENERAL ORDER ZUHAIR Performing Organization Address City/State/ZIP Code Phon e Number [facility]ER Unless otherwise noted, [address] all lab tests performed by: Division of Pathology and Laboratory Medicine [facility]5 [employer] X-ray Chest 1 View (08/25/2023 8:31 PM CDT)Only the most recent of6 results within the time period is included. Anatomical Region Laterality Modality Chest Digital Radiography Specimen (Source) Anatomical Collection Method Collection Time Re ceived Time Location / / Volume Laterality 08/25/2023 8:44 PM CDT Impressions 08/25/2023 8:45 PM CDT Small right pleural effusion and interva l increase in bilateral opacities that could represent edema, pneumonia, or hemorrhage. ACTIONABLE ITEMS/RECOMMENDATIONS: None. Narrative 08/25/2023 8:45 PM CDT FULL RESULT: Examination: XR CHEST 1 VW on 08/25/2023 8:31 PM. Clinical History: Breast cancer Indication: Fever Comparison: CT dated 08/23/2023 Technique: Frontal radiograph of the owen st Findings: Support Apparatus: None. Lungs/Pleura/Mediastinum: The cardiac si lhouette is unchanged. There is no pneumothorax. Small right pleural effusion. Interval increase in bilateral opacities. Bones: The visualized osseous structures are unchanged. Procedure Note Kedar Greenberg MD - 08/25/2023Formatt ing of this note might be different from the original. FULL RESULT: Examination: XR CHEST 1 VW on 08/25/2023 8:31 PM. Clinical History: Breast cancer Indication: Fever Comparison: CT dated 08/23/2023 Technique: Frontal radiograph of the owen st Findings: Support Apparatus: None. Lungs/Pleura/Mediastinum: The cardiac si lhouette is unchanged. There is no pneumothorax. Small right pleural effusion. Interval increase in bilateral opacities. Bones: The visualized osseous structures are unchanged. IMPRESSION: Small right pleural effusion and interva l increase in bilateral opacities that could represent edema, pneumonia, or hemorrhage. ACTIONABLE ITEMS/RECOMMENDATIONS: None. María Jiang APRN IMG DIAGNOSTIC IMAGING ORDER ZUHAIR Respiratory Viral Panel, Send-Out (BAL) (08/25/2023 12:05 PM CDT) [facility] Method Time Signature RVP Specimen BAL [facility] RVP Adenovirus Not Detected Not Detected [facility] Comment: Detects Serotypes B and E. Detection o f Serotype C may be limited. If Adenovirus infection is suspected and a Not Detected result is returned the sample should be re-tested for adenovirus using an independent method (e.g. [employer] Adenovirus Quantitative Real-time PCR test). RVP Enterovirus/Rhinovirus Not Detected Not Detected [facility] RVP Bocavirus Not Detected Not Detected [facility] RVP Coronavirus Not Detected Not Detected [facility] Comment: This test does NOT assay for the novel 2 019 Coronavirus out of [place]. This test detects the respiratory Coronaviruses: types 229E, OC43, NL63, and HKU1. RVP Metapneumovirus Not Detected Not Detected [facility] RVP Influenza A Not Detected Not Detected [facility] RVP Influenza [id number] Not Detected Not Detected [facility] RVP Influenza B Not Detected Not Detected [facility] RVP Parainfluenza Not Detected Not Detected [facility] RVP Respiratory Syncytial Not Detected Not Detected [facility] Comment: The Respiratory Syncytial Viral assay de tects both types A and B, however it does not distinguish between the two. Target Enriched Multiplex Polymerase Jade in Reaction (TEM-PCR) allows for the detection of multiple pathogens out of a single reaction. This test was developed and its performa nce characteristics determined by [employer]. It has n ot been cleared or approved by the U.S. Food and Drug Administration . Results should be used in conjunction with clinical findings, and should not form the sole basis for a diagnosis or treatment decis ion. TEM-PCR is a licensed technology of [employer]. Performed At: [facility] [address] [place] [address], [address] [place] [address] Resume Specialist: Dmitri Short, PhD DEJA (ABB) CLIA # [id number] FLAG Interpretation: A = Abnormal, H = H igh, L = Low Specimen Anatomical Collection Method Collection Time Receive d Time (Source) Location / / Volume Laterality BAL 08/25/2023 12:05 08/26/2023 1:00 PM CDT PM CDT Kim Gillespie MD MICROBIOLOGY - GENERAL ORDER ZUHAIR Performing Organization Address City/State/ZIP Code Phon e Number [facility]ER Unless otherwise noted, [place], [place] [id number] [place] [address] all lab tests performed by: Division of Pathology and Laboratory Medicine [address] COVID-19 (SARS-CoV-2) PCR, Lower Respiratory (08/25/2023 12:05 PM CDT) [facility] gist Method Time Signature COVID19 (SARS Not Detected Not Detected KELECHI NAVARRO CoV-2) [facility] Comment: Testing performed utilizing TEM-PCR (Tar get Enriched Multiplex Polymerase Chain Reaction) technology. Testing laboratory is [facility], [employer], [address] / [place] [address] CLIA ID: [id number]. This test has been validated but FDA's i ndependent review of the validation is pending. This test is performed as a laboratory developed test; independent review of the validation under the FDA's Emergency Use Authorization (EUA) authority will be performed according to current guidance requirements. We will continue to follow federal and s rasmussen requirements for both notification of results and any confirmatory testing that is required by another agency. This test was developed and its performance ch aracteristics determined by [employer]. It has not been cleared or approved by the U.S . Food and Drug Administration. Results should be used in conjunction with clinical findings , and should not form the sole basis for a diagnosis or treatment decision. Testing Performed At: [facility] [address] [place] [address] COVID19 (SARS) Source BAL [place] MD ALEX TRA[address] [facility] Specimen Anatomical Collection Method Collection Time Receive d Time (Source) Location / / Volume Laterality BAL 08/25/2023 12:05 08/26/2023 1:00 PM CDT PM CDT Kim Gillespie MD MICROBIOLOGY - GENERAL ORDER ZUHAIR Performing Organization Address City/State/ZIP Code Phon e Number [facility] Unless otherwise noted, [address] all lab tests performed by: Division of Pathology and Laboratory Medicine [address] [facility] Body Fluid Differential (08/25/2023 12:05 PM CDT)Only the most recent of2 resultswithin the time period is included. P athologist Signature Tot Cells BF 100 [facility] Neut BF 4 0 - 25 % [facility] Lymph BF 18 % [facility] Comment: This assay has been validated f or body fluids. No reference ranges have been established. Test results should be inte rpreted in context with the patient s clinical condition. Pathologist consul t is available. Histiocyte BF 56 % [facility] Comment: This assay has been validated f or body fluids. No reference ranges have been established. Test results should be inte rpreted in context with the patient s clinical condition. Pathologist consul t is available. Eos BF 1 % [facility] Comment: This assay has been validated f or body fluids. No reference ranges have been established. Test results should be inte rpreted in context with the patient s clinical condition. Pathologist consul t is available. Other Cell BF 21 % [facility] Comment: This assay has been validated f or body fluids. No reference ranges have been established. Test results should be inte rpreted in context with the patient s clinical condition. Pathologist consul t is available. Specimen Anatomical Collection Method Collection Time Receive d Time (Source) Location / / Volume Laterality BAL 08/25/2023 12:05 08/25/2023 4:53 PM CDT PM CDT Kim Gillespie MD BODY FLUIDS AND STOOLS ORDER ZUHAIR Performing Organization Address City/State/ZIP Code Phon e Number [facility]CER Unless otherwise noted, [address] all lab tests performed by: Division of Pathology and Laboratory Medicine [address] [facility] Body Fluid Diff Path Review (08/25/2023 12:05 PM CDT)Only the most recent of2 resultswithin the time period is included. Patholo gist Method Time Signature Body Fluid NO DIAGNOSTIC [facility] Comment: CHERYL BERKOWITZ MD, PhD - [id number] Dictated by: CHERYL BERKOWITZ MD, PhD - [phone] Dictated Date/Time: 08.26.2023 11:39 AM CDT Transcribed Date/Time: 08.26.2023 11:39 AM CDT Electronically Signed By: Ysabel PHILLIP, PhD - [id number] on 08.26.2023 11:39 AM Specimen Anatomical Collection Method Collection Time Receive d Time (Source) Location / / Volume Laterality BAL 08/25/2023 12:05 08/25/2023 4:53 PM CDT PM CDT Kim Gillespie MD BODY FLUIDS AND STOOLS ORDER ZUHAIR Performing Organization Address City/State/ZIP Code Phon e Number [facility] Unless otherwise noted, [address] all lab tests performed by: Division of Pathology and Laboratory Medicine [address] [place] [address] Pneumocystis Quant PCR, BAL (08/25/2023 12:05 PM CDT) [facility] Method Time Signature P. jiroveci Not Detected Not Detected [place] BAL-[facility] copies/mL [facility] Comment: Assay Range: 84 copies/mL to 1.00E+08 co pies/mL The limit of quantitation (LOQ) is 84 co pies/mL. Pneumocystis jiroveci DNA detected below the LOQ will be reported as Detected:<84 copies/mL. This test was developed and its performa nce characteristics determined by [employer]. It has n ot been cleared or approved by the U.S. Food and Drug Administration . Results should be used in conjunction with clinical findings, and should not form the sole basis for a diagnosis or treatment decis ion. Performed At: [facility] [address] [place] [address], [address] [place] [address] Resume Specialist: Dmitri Short, PhD DEJA (ASHLEY) CLIA # [id number] FLAG Interpretation: A = Abnormal, H = H igh, L = Low Specimen Anatomical Collection Method Collection Time Receive d Time (Source) Location / / Volume Laterality BAL 08/25/2023 12:05 08/26/2023 1:00 PM CDT PM CDT Kim Gillespie MD MICROBIOLOGY - GENERAL ORDER ZUHAIR Performing Organization Address City/State/ZIP Code Phon e Number [facility] CANCER Unless otherwise noted, [address] all lab tests performed by: Division of Pathology and Laboratory Medicine [facility]5 [facility] CMV Quant PCR, BAL (08/25/2023 12:05 PM CDT) [facility] Method Time Signature CMV Not Detected Not Detected KELECHI GUTIERREZ-[facility] IU/mL [facility] Comment: Assay Range: 79 IU/mL to 1.88E+08 IU/mL The limit of quantitation (LOQ) is 79 IU /mL. CMV DNA detected below the LOQ will be reported as Detected:<79 IU/mL. This test was developed and its performa nce characteristics determined by [employer]. It has n ot been cleared or approved by the U.S. Food and Drug Administration . Results should be used in conjunction with clinical findings, and should not form the sole basis for a diagnosis or treatment decis ion. Performed At: [facility] [address] [place] [address], [address] [place] [address] Resume Specialist: Dmitri Short, PhD DEJA (ASHLEY) CLIA # [id number] FLAG Interpretation: A = Abnormal, H = H igh, L = Low Specimen Anatomical Collection Method Collection Time Receive d Time (Source) Location / / Volume Laterality BAL 08/25/2023 12:05 08/26/2023 1:00 PM CDT PM CDT Kim Gillespie MD MICROBIOLOGY - GENERAL ORDER ZUHAIR Performing Organization Address City/[facility]/ZIP Code Phon e Number [facility]CER Unless otherwise noted, [address] all lab tests performed by: Division of Pathology and Laboratory Medicine [facility] Aspergillus Antigen, BAL (08/25/2023 12:05 PM CDT) Component Value Ref Test Analysis Performed At [facility] Range Method Time Signature Aspergillus 0.09 0.00 - [facility] Antigen Index 0.49 [facility] Aspergillus NEGATIVE; [facility] Antigen [facility] [place] Antifungal ELLIS therapy can CANCER [facility] circulating galactomannan levels below the detectable range. Aspergillus NEG [facility] Antigen [facility] Comment: Testing performed by immunoenzy matic methodology which detects Aspergillus galactomannan antigen. Specimen Anatomical Collection Method Collection Time Receive d Time (Source) Location / / Volume Laterality BAL 08/25/2023 12:05 08/25/2023 5:35 PM CDT PM CDT Kim Gillespie MD MICROBIOLOGY - GENERAL ORDER ZUHAIR Performing Organization Address City/[facility] Code Phon e Number [facility] CANCER Unless otherwise noted, [address] all lab tests performed by: Division of Pathology and Laboratory Medicine [facility] Lower Respiratory Culture w/ Gram Stain (08/25/2023 12:05 PM CDT) [facility] Method Time Signature Final Report No growth [facility] Gram Stain Many WBC's seen [place] MD Report No organisms seen. [facility] Specimen Anatomical Collection Method Collection Time Receive d Time (Source) Location / / Volume Laterality BAL 08/25/2023 12:05 08/25/2023 6:20 PM CDT PM CDT Kim Gillespie MD MICROBIOLOGY - GENERAL ORDER ZUHAIR Performing Organization Address City/[facility]/ZIP Code Phon e Number [facility]ER Unless otherwise noted, [address] all lab tests performed by: Division of Pathology and Laboratory Medicine [address] [place] [address] Legionella Culture (08/25/2023 12:05 PM CDT) [facility] Method Time Signature Final Report No Legionella [facility] Specimen Anatomical Collection Method Collection Time Receive d Time (Source) Location / / Volume Laterality BAL 08/25/2023 12:05 08/25/2023 6:20 PM CDT PM CDT Kim Gillespie MD MICROBIOLOGY - GENERAL ORDER ZUHAIR Performing Organization Address City/[facility]/ZIP Code Phon e Number [facility] Unless otherwise noted, [address] all lab tests performed by: Division of Pathology and Laboratory Medicine [address] [place] [address] Cell Count BF (08/25/2023 12:05 PM CDT)Only the most recent of2 resultswithin the time period is included. athologist Signature Type BF BAL [facility] Comment: RANULFO Appear BF BLOODY [facility] WBC BF 115 /mcL [facility] Comment: This assay has been validated f or body fluids. No reference ranges have been established. Test results should be inte rpreted in context with the patient s clinical condition. Pathologist consul t is available. RBC BF 6,425 /mcL [facility] Comment: This assay has been validated f or body fluids. No reference ranges have been established. Test results should be inte rpreted in context with the patient s clinical condition. Pathologist consul t is available. Specimen Anatomical Collection Method Collection Time Receive d Time (Source) Location / / Volume Laterality BAL 08/25/2023 12:05 08/25/2023 4:53 PM CDT PM CDT Kim Gillespie MD BODY FLUIDS AND STOOLS ORDER ZUHAIR Performing Organization Address [facility] Phon e Number [facility]CER Unless otherwise noted, [address] all lab tests performed by: Division of Pathology and Laboratory Medicine [address] [place] [address] (ABNORMAL) Cytology Non-Information Assurance Officer Interpretation (08/25/2023 11:59 AM CDT)Only the most recent of2 resultswithin the time period is included. Component Value Ref Test Analysis Performed Pathologis t Range Method Time At [facility] Gross 1 Diff Quik; 1 Pap Stain Slides, 1 GMS, 1 Iron MDA AP Description 10 ml. slightly cloudy pink fluid 3 2: 36 PM LABS Specimen concentrated by cytocentrifugation technique CDT Major Cellular atypia (A) MDA AP Electronically Classification 3 2:36 PM LABS oneyda d by CDT Victorino jarrett MD on 08/27/2023 at 2:36 PM Diagnosis Lung, left upper lobe, bronchoalveolar lavage: [facility] Electronically 3 2:36 PM LABS signed by Rare atypical cells (see comment) CDT Victorino Grady, No viral changes on GMS stain, positive for grayson al hyphae, morphologically consistent with Brenda spp. (see comment) 3 at GMS stain, negative for Pneumocystis 2:36 PM Iron stain, ~40% macrophages with hemosiderin Comment There are rare [facility] epithelioid cells 3 2:36 PM LABS with atypia. The CDT paucity of atypical cells precludes further characterization. There are also mature squamous cells noted. Given their presence, oral contamination with fungal organisms can not be excluded. Clinical correlation is recommended. Controls are appropriate. Retained/Biomark SR: 2 S, 2 SP [facility] er Testing 3 2:36 PM LABS CDT Informational Some tests reported [facility] Points here may have been 3 2:36 PM LABS developed and CDT performance characteristics determined by [facility] [place] [facility]. These tests have not been specifically cleared or approved by the U.S. Food and Drug Administration. Specimen Anatomical Collection Method Collection Time Receive d Time (Source) Location / / Volume Laterality Specimen 08/25/2023 11:59 08/25/2023 2:23 obtained by AM CDT PM CDT lavage (specimen) (Lung, Left Upper Lobe) Kim Gillespie MD LAB CYTOLOGY ORDERABLES Performing Organization Address City/State/ZIP Code Phon e Number [facility] LABS [facility] [place] [address], [place] [address] [facility] Vancomycin Trough (08/25/2023 7:48 AM CDT) P athologist Signature Vanco Trough 11.5 5.0 - 20.0 [place] MD SOTO mcg/mL [facility]ENTER Comment: Toxic Trough Level: >20 mcg/mL Vanco Tr Dose Time See Note [facility] Comment: Level, date, and time of previous dose i s not available for this sample. The date reported is e sample collection date. Vanco Tr Dose Date 08/25/2023 [place] [facility] Comment: Level, date, and time of previous dose i s not available for this sample. The date reported is sample collection date. Specimen Anatomical Collection Method Collection Time Receive d Time (Source) Location / / Volume Laterality Blood 08/25/2023 7:48 AM 8:36 CDT AM CDT Aubrie Henderson MD LAB BLOOD ORDERABLES Performing Organization Address [facility] Phon e Number [facility]ER Unless otherwise noted, [address] all lab tests performed by: Division of Pathology and Laboratory Medicine [address] [place] [address] Vinod Streptococcus pneumoniae Antigen, Urine (08/24/2023 6:50 PM CDT) Component Value Ref Test Analysis Performed At [facility] [employer] Method Time Signature Streptococcal Presumptive negative for S. pneumoniae antigen in the urine, suggesting no current or recent pneumococcal infection. However, infection due to S. pneumoniae cannot be completely ruled out since the leve KELECHI NAVARRO Urine Antigen l of antigen present in the urine may be below the ELLIS Interpretation detection limit of the test. [facility] Streptococcal Negative KELECHI NAVARRO Urine Antigen ELLIS Interpretation [facility] Comment: Testing is performed using an immunochro matographic assay for the qualitative detection of Streptococcus pneumoniae antigen in the urine of patients with invasive S. pneumoniae infections. It is intende d to aid in the diagnosis of pneumococca l pneumonia and bacteremia in conjunction with cultu re and other diagnostic methods. Specimen Anatomical Collection Method Collection Time Receive d Time (Source) Location / / Volume Laterality Urine 08/24/2023 6:50 PM 8:16 CDT PM CDT Sandra Huynh MD MICROBIOLOGY - GENERAL ORDER ZUHAIR Performing Organization Address City/[facility] Phon e Number [facility] Unless otherwise noted, [address] all lab tests performed by: Division of Pathology and Laboratory Medicine [address] [facility] Legionella Antigen, Urine (08/24/2023 6:50 PM CDT) Component Value Ref Test Analysis Performed At [facility] [employer] Method Time Signature Legionella Urine Negative for L. pneumophila serogroup 1 antigen, suggesting no recent or current infection. However, infections due to other serogroups and species of Legionella are not detected by this assay. In addition, antigen may not be present in the urine in KELECHI NAVARRO Antigen early infection and the leve l of antigen present in the urine may be below the detection limit of the test. [facility] Legionella Urine Negative [facility] Antigen [facility] Comment: Testing is performed using an immunochro matographic assay for the qualitative detection of Legionella pneumophila serogroup 1 antigen in urine specimens from patients with symptoms of pneumonia. It is intended to aid in the presumptive diagnosis of infection caused by L. pneumophila serog roup 1 in conjunction with culture and other diagnostic methods. Specimen Anatomical Collection Method Collection Time Receive d Time (Source) Location / / Volume Laterality Urine 08/24/2023 6:50 PM 8:16 CDT PM CDT Sandra Huynh MD MICROBIOLOGY - GENERAL ORDER ZUHAIR Performing Organization Address City/State/ZIP Code Phon e Number [facility] Unless otherwise noted, [place] [address] [address] all lab tests performed by: Division of Pathology and Laboratory Medicine [address] [place] [address] Respiratory Multiplex PCR Panel, Nasopharyngeal Swab (08/24/2023 3:04 PM CDT) Only the most recent of2 resultswithin the time period is included. [facility] Method Time Signature Adenovirus Not Not [place] MD Detected Detected [facility] Coronavirus 229E Not Not [place] MD Detected Detected [facility] Coronavirus HKU1 Not Not [place] MD Detected Detected [facility] Coronavirus NL63 Not Not [place] MD Detected Detected [facility] Coronavirus OC43 Not Not [place] MD Detected Detected [facility] COVID19 Not Not [facility] MD (SARS-CoV-2) Detected Detected [facility] Human Not Not [place] MD Metapneumovirus Detected Detected [facility] Human Not Not [place] MD Rhinovirus/Enterov Detected Detected [facility] Influenza A Not Not [place] MD Detected Detected [facility] Influenza A H1 Not Not [place] MD Detected Detected [facility] Influenza A H1 Not Not [place] MD 2009 Detected Detected [facility] Influenza A H3 Not Not [place] MD Detected Detected [facility] Influenza B Not Not [place] MD Detected Detected [facility] Parainfluenza 1 Not Not [place] MD Detected Detected [facility] Parainfluenza 2 Not Not [place] MD Detected Detected [facility] Parainfluenza 3 Not Not [place] MD Detected Detected [facility] Parainfluenza 4 Not Not [place] MD Detected Detected [facility] Respiratory Not Not [place] MD Syncytial Virus Detected Detected [facility] Bordetella Not Not [place] MD Parapertussis Detected Detected [facility] Bordetella Not Not [place] pertussis Detected Detected [facility] Chlamydiophila Not Not [place] pneumoniae Detected Detected [facility] Mycoplasma Not Not [place] pneumoniae Detected Detected [facility] Specimen (Source) Anatomical Collection Method Collection Time Re ceived Time Location / / Volume Laterality Nasopharyngeal Swab 08/24/2023 3:04 08/24 PM CDT 3:11 PM CDT Narrative [facility] - 4:40 PM CDT Has patient had a positive for COVID-19 result in the last 3 months?->No The BioFire RP2.1 is a real-time, nested multiplexed polymerase chain reaction test designed to simultaneously identify nucleic acids from 22 different viruses and bacteria associated with respiratory tract infect ion, including SARS-CoV-2, from a single nasopharyngeal swab (TECHNOLOGY CONSULTANT) specimen obtained from individuals suspected of respiratory tract infections, including COVID-19. Results must be interpreted within the c ontext of all relevant clinical and laboratory findings and should not form the sole basis for a diagnosis or treatment decision. Positive results do not rule out coninfection with other organisms. Nega tive results in the setting of a respiratory illness may be due to infection with pathogens that are not detected by this panel, or a lower respiratory tract infection that may not be detected by an TECHNOLOGY CONSULTANT specimen. Internal controls are used to monitor al l stages of the test process and assess for possible amplification inhibitors. If inhibition is detected, testing is repeated and if inhibition is confirmed the s pecimen is resulted as "Invalid". When a n "Invalid" result occurs, it is recommended to wait 3 days before submitting a new specimen for testing if clinically indicated. This assay has been approved by the FDA for use in laboratories that have been CLIA-certified to perform moderate-complexity and high-complexity tests. The [facility], CLIA Accreditation #[id number] and CAP Accreditation #[id number], verified the per formance characteristics of this assay. [facility] performs the assay using the Twyxt System. Sandra Huynh MD MICROBIOLOGY - GENERAL ORDER ZUHAIR Performing Organization Address City/State/ZIP Code Phon e Number [facility] Unless otherwise noted, [place], [place] [id number] [place] [address] all lab tests performed by: Division of Pathology and Laboratory Medicine [address] MRSA Screening Culture (08/24/2023 3:04 PM CDT) Component Value Ref Test Analysis Performed At Patholo gist Range Method Time Signature Final Report No Methicillin [facility] Staphylococcus CANCER aureus isolated. CENTER Specimen Anatomical Collection Method Collection Time Receive d Time (Source) Location / / Volume Laterality Nasal 08/24/2023 3:04 PM 3 4:04 CDT PM CDT Narrative [facility] - 3 1:18 PM CDT Testing is performed using PBP2a antigen detection and cefoxitin screening on isolated S. aureus colonies. This method ology may not detect uncommon mechanisms of methicillin-resistance in S. aureus. Sandra Huynh MD MICROBIOLOGY - GENERAL ORDER ZUHAIR Performing Organization Address City/State/ZIP Code Phon e Number [facility] Unless otherwise noted, [place] [id number] [address] all lab tests performed by: Division of Pathology and Laboratory Medicine [address] [place] [address] (ABNORMAL) Urinalysis Microscopic Exam (08/24/2023 11:24 AM CDT)Only the most recent of4 resultswithin the time period is included. P athologist Signature UA WBC 1 0 - 2 /HPF [facility] Comment: Some reporting parameters within the Uri nalysis test have changed due to the implementation of new instrumentation in the [facility], allowing greater sensitivity of measurement. Urinalysis results rep orted by the [facility] using existing instrumentation, as well as Urinalysis t esting performed manually or by backup methodology at the [facility] will remain relatively unchanged. New reporting parameters and units will not be reported for all campuses. UA RBC 4 (H) 0 - 2 /HPF [facility] UA Mucous NOT SEEN Not Seen-Trace /HPF [facility] [place] UA Bacteria OCC (A) NOT SEEN /HPF [facility] UA Squam Epi OCC None-Occasional /HPF [facility] Specimen Anatomical Collection Method Collection Time Receive d Time (Source) Location / / Volume Laterality Urine 08/24/2023 11:24 08/24/2023 AM CDT 11:34 AM CDT Fose-U-MrsojCarleen ROC[facility] LAB BLOOD ORDERABLES Performing Organization Address City/State/ZIP Code Phon e Number [facility] Unless otherwise noted, [address] all lab tests performed by: Division of Pathology and Laboratory Medicine [address] [place] [address] (ABNORMAL) Urinalysis w/Microscopic if Indicated (08/24/2023 11:24 AM CDT)Only the most recent of4 resultswithin the time period is included. Patholo gist Method Time Signature UA Color Straw Straw-Yel [facility] UA Appear Clear Clear [facility] UA Glucose NEG NEG mg/dL [facility] UA Bili NEG NEG [facility] UA Ketones NEG NEG mg/dL [facility] UA Spec Grav 1.004 1.003 - [facility] 1.035 [facility] UA Blood Large (A) NEG [facility] UA pH 6.0 5.0 - 9.0 [facility] UA Protein NEG NEG mg/dL [facility] UA Urobilinogen NEG NEG [facility] UA Nitrite NEG NEG [facility] UA Leuk Est NEG NEG [facility] Specimen Anatomical Collection Method Collection Time Receive d Time (Source) Location / / Volume Laterality Urine 08/24/2023 11:24 08/24/2023 AM CDT 11:34 AM CDT Kinga ROCHE URINE ORDERABLES Performing Organization Address City/[facility]/ZIP Code Phon e Number [facility] Unless otherwise noted, [address] all lab tests performed by: Division of Pathology and Laboratory Medicine [address] [place] [address] aPTT (08/23/2023 4:32 PM CDT)Only the most recent of5 resultswithin the time period is included. P athologist Signature aPTT 25.1 24.1 - 35.5 [facility](s) [facility] Specimen Anatomical Collection Method Collection Time Receive d Time (Source) Location / / Volume Laterality Blood 08/23/2023 4:32 PM 4:39 CDT PM CDT Aubrie Henderson MD LAB BLOOD ORDERABLES Performing Organization Address City/State/ZIP Code Phon e Number [facility] Unless otherwise noted, [address] all lab tests performed by: Division of Pathology and Laboratory Medicine [address] Prothrombin Time with INR (08/23/2023 4:32 PM CDT)Only the most recent of7 resultswithin the time period is included. P athologist Signature PT 12.8 11.9 - 14.5 [facility](s) [facility] CENTER INR 0.96 0.87 - 1.12 [facility] Specimen Anatomical Collection Method Collection Time Receive d Time (Source) Location / / Volume Laterality Blood 08/23/2023 4:32 PM 4:39 CDT PM CDT Aubrie Henderson MD LAB BLOOD ORDERABLES Performing Organization Address City/State/ZIP Code Phon e Number [facility] Unless otherwise noted, [address] all lab tests performed by: Division of Pathology and Laboratory Medicine [address] Chest Pulmonary Embolism with Contrast (08/23/2023 1:29 PM CDT)Only the most recent of2 resultswithin the time period is included. Anatomical Region Laterality Modality Chest Computed Tomography Specimen (Source) Anatomical Collection Method Collection Time Re ceived Time Location / / Volume Laterality 08/23/2023 1:32 PM CDT Impressions 08/23/2023 3:51 PM CDT 1. Small filling defect in a subsegmental left lower lobe pulmonary arteries compatible pulmonary embolus. No sign of right heart strain. 2. Interval development of multifocal groundglass opacities throughout the lungs, which may represent pneumonia or drug associated pneumonitis. 3. A few nodular opacities have increa sed in size or are new. Other pulmonary nodules are stable in size. These may be infectious/inflammatory or metastatic, and may be followed on further exams. 4. Stable right pleural nodularity con cerning for metastatic disease with multiloculated right pleural effusion. 5. Subtle peripancreatic and mesenteri c stranding in the left upper quadrant may represent peritoneal carcinomatosis or inflammation. Recommend clinical correlation. 6. Increased lucency at T11 and sclero sis at T9 may be due to progressive bony metastatic disease. ACTIONABLE ITEMS/RECOMMENDATIONS: Signif icant Finding: Acute pulmonary embolism Recommendation: Findings were conveyed t o the clinical treating team, Dr. Loza, and Dr. Henderson, at the time of dictation, 3:48 PM, 08/23/2023. I personally reviewed these image(s) omid blood with the resident's/fellow's interpretations, certify that if a procedure was performed I was physically present, and agree with the final report. Narrative 08/23/2023 3:51 PM CDT FULL RESULT: Examination: CT CHEST PULMONARY EMBOLISM W CONTRAST, 08/23/2023 1:29 PM Clinical History: Pain. Breast cancer. M etastatic disease to bone. Indication: shortness of breath Comparison: CT chest/abdomen/pelvis 11/2022 Technique: Spiral CT of the chest is per formed using intravenous contrast. Findings: Lines and tubes: None Pulmonary arteries: Pulmonary artery opa cification is good. There is a filling defect in a subsegmental pulmonary artery to the left lower lobe, image 171 concerning for a pulmonary embolus. The right v entricular left ventricular ratio is les s than 1. The septum remains bowed to the right ventricle. No definite sign of right heart strain. The main pulmonary trunk is normal in diameter. Cardiac: The heart size is normal in siz e. Mild coronary artery calcifications in the left anterior descending.. The thoracic aorta is normal in diameter. Lymph nodes: Stable 1 cm left supraclavi cular lymph node (series 18 image 19). Left axillary lymph node has slightly decreased in size, measuring 1 cm, previously 1.5 cm (image 96). Stable soft tissue b eginning in the right upper and lower pa ratracheal regions and subcarinal region. Right internal mammary lymphadenopathy is also stable. Small pericardial lymph nodes are stable. Stable right hilar lymph node measuring 1.4 cm. Other Mediastinum: The visualized portio ns of the thyroid glandis within normal limits. Lungs and airways: Central airways are c lear. There is progression of multifocal groun dglass opacities, predominantly involving the left upper lobe and right lower lobe. There are a few enlarging nodular opacit ies within the lungs bilaterally. For example, a right upper lobe nodular opacity measures 0.6 cm, previously 0.3 cm (series 13 image 49). A nodular opacity in th e left lung apex measures 0.5 cm, new (s eries 13 image 31). An additional subpleural nodule measuring 0.4 cm previously measured 0.2 cm (series 13 image 43). Other scattered bilateral pulmonary nodules are stable in size. There is nodular interlobular septal thi ckening noted in the right lung apex, unchanged Pleural spaces: Multiple loculated right pleural effusions/pleural thickening the right hemithorax are stable to slightly decreased in size. Stable nodularity along the right major fissure. Prior talc p leurodesis of the right pleura. No left pleural effusion. No pneumothorax. Bones and soft tissues: Interval increas ed sclerosis of osseous metastasis in the T9 superior endplate. Increasing lucency at the T9 vertebrae concerning for metastatic disease, image 303. Otherwise, ot her osseous metastases throughout the sp ine, bilateral ribs, and right clavicular head are grossly unchanged. Postsurgical changes from bilateral mast ectomy and right axillary dissection. Upper abdomen: No focal hepatic lesion. Splenule noted. Subtle mesenteric stranding in the left upper quadrant and near the pancreatic body. Persistence left-sided hydronephrosis . Small hiatal hernia. Diverticulosis without acute diverticulitis. Procedure Note Maxi Sheth MD - 08/23/2023Formatt ing of this note might be different from the original. FULL RESULT: Examination: CT CHEST PULMONARY EMBOLISM W CONTRAST, 08/23/2023 1:29 PM Clinical History: Pain. Breast cancer. M etastatic disease to bone. Indication: shortness of breath Comparison: CT chest/abdomen/pelvis 11/2022 Technique: Spiral CT of the chest is per formed using intravenous contrast. Findings: Lines and tubes: None Pulmonary arteries: Pulmonary artery opa cification is good. There is a filling defect in a subsegmental pulmonary artery to the left lower lobe, image 171 concerning for a pulmonary embolus. The right ventricular left ventricular ratio is less than 1. The se ptum remains bowed to the right ventricle. No definite sign of right heart strain. The main pulmonary trunk is normal in diameter. Cardiac: The heart size is normal in siz e. Mild coronary artery calcifications in the left anterior descending.. The thoracic aorta is normal in diameter. Lymph nodes: Stable 1 cm left supraclavi cular lymph node (series 18 image 19). Left axillary lymph node has slightly decreased in size, measuring 1 cm, previously 1.5 cm (image 96). Stable soft tissue beginning in the right upper and lower paratracheal regio ns and subcarinal region. Right internal mammary lymphadenopathy is also stable. Small pericardial lymph nodes are stable. Stable right hilar lymph node measuring 1.4 cm. Other Mediastinum: The visualized portio ns of the thyroid glandis within normal limits. Lungs and airways: Central airways are c lear. There is progression of multifocal groun dglass opacities, predominantly involving the left upper lobe and right lower lobe. There are a few enlarging nodular opacit ies within the lungs bilaterally. For example, a right upper lobe nodular opacity measures 0.6 cm, previously 0.3 cm (series 13 image 49). A nodular opacity in the left lung apex measures 0.5 cm, new (series 13 parul ge 31). An additional subpleural nodule measuring 0.4 cm previously measured 0.2 cm (series 13 image 43). Other scattered bilateral pulmonary nodules are stable in size. There is nodular interlobular septal thi ckening noted in the right lung apex, unchanged Pleural spaces: Multiple loculated right pleural effusions/pleural thickening the right hemithorax are stable to slightly decreased in size. Stable nodularity along the right major fissure. Prior talc pleurodesis of the right pleura. No left pleural effusi on. No pneumothorax. Bones and soft tissues: Interval increas ed sclerosis of osseous metastasis in the T9 superior endplate. Increasing lucency at the T9 vertebrae concerning for metastatic disease, image 303. Otherwise, other osseous metastases throughout the spine, bilater al ribs, and right clavicular head are grossly unchanged. Postsurgical changes from bilateral mast ectomy and right axillary dissection. Upper abdomen: No focal hepatic lesion. Splenule noted. Subtle mesenteric stranding in the left upper quadrant and near the pancreatic body. Persistence left-sided hydronephrosis . Small hiatal hernia. Diverticulosis without acute diverticulitis. IMPRESSION: 1. Small filling defect in a subsegmenta l left lower lobe pulmonary arteries compatible pulmonary embolus. No sign of right heart strain. 2. Interval development of multifocal gr oundglass opacities throughout the lungs, which may represent pneumonia or drug associated pneumonitis. 3. A few nodular opacities have increase d in size or are new. Other pulmonary nodules are stable in size. These may be infectious/inflammatory or metastatic, and may be followed on further exams. 4. Stable right pleural nodularity andrae rning for metastatic disease with multiloculated right pleural effusion. 5. Subtle peripancreatic and mesenteric stranding in the left upper quadrant may represent peritoneal carcinomatosis or inflammation. Recommend clinical correlation. 6. Increased lucency at T11 and sclerosi s at T9 may be due to progressive bony metastatic disease. ACTIONABLE ITEMS/RECOMMENDATIONS: Signif icant Finding: Acute pulmonary embolism Recommendation: Findings were conveyed t o the clinical treating team, Dr. Loza, and Dr. Henderson, at the time of dictation, 3:48 PM, 08/23/2023. I personally reviewed these image(s) omid ng with the resident's/fellow's interpretations, certify that if a procedure was performed I was physically present, and agree with the final report. Rad Loza MD IMG CT ORDERABLES (ABNORMAL) POC Chem 8 without Hemoglobin and Hematocrit (08/23/2023 12:33 PM CDT) P athologist Signature POC NA 135 (L) 138 - 146 POC [facility] mEq/L POC K 4.1 3.5 - 4.9 POC [facility] mEq/L Comment: Method description: The i-STAT is an vincent lyzer used for in vitro quantification of various analytes in whole blood. The device uses a single disposable cartridge which contains microfabricated sensors, a calibration solution, fluidics system, and a waste chamber. Each test cartridge contains ch emically sensitive biosensors on a silicon chip that are configured to perform specific tests. The microfabricated sensors measure analyte concentration by an electrochemical assay. POC CL 99 98 - 109 mEq/L POC [facility] POC VTCO2 26 24 - 29 mEq/L POC [facility] POC Anion Gap 14 10 - 20 mmol/L POC [facility] POC BUN 17 8 - 26 mg/dL POC [facility] POC Crea 0.7 0.6 - 1.3 mg/dL POC [facility] Comment: Medications, especially hydroxyurea or s upplements, such as ascorbate, can interfere with test results causing a falsely and significantly higher result than expected. If a problem is suspected with a patient's result, a sample should be sent to the laboratory for confirmatory testing. Method description: The i-STAT is an vincent lyzer used for in vitro quantification of various analytes in whole blood. The device uses a single disposable cartridge which contains microfabricated sensors, a calibration solution, fluidics system, and a waste chamber. Each test cartridge contains ch emically sensitive biosensors on a silicon chip that are configured to perform specific tests. The microfabricated sensors measure analyte concentration by an electrochemical assay. POC EGFR 100 >=60 mL/min/1.73 sq. m POC [facility] Comment: The eGFRcr is calculated with the 2020 KD-EPI creatinine equation using creatinine, patient's age, and sex for adults 18 years of age and older. Other factors, especially muscle mass, may affect accuracy and need to be considered. According to the Kidney Disease: Improvi ng Global Outcomes (KDIGO) CKD Work Group 2012 Clinical Practice Guideline, chronic kidney disease (CKD) is defined as the abnormalities of kidney structure or function, present for more than 3 months, with implications for health. CKD should be c lassified by cause, GFR category, and albuminuria category. KDIGO guidelines provide the following GFR categories Stage Description GFR mL/min/1.73 m2 G1* Normal or high >= 90 G2* Mildly decreased 60-89 G3a Mildly to moderately decreased 45-59 G3b Moderately to severely decreased 30- 44 G4 Severely decreased 15-29 G5 Kidney failure <15 *In the absence of evidence of kidney da mage, neither G1 nor G2 fulfill criteria for CKD. POC Glucose 180 (H) 70 - 99 mg/dL POC [facility] Comment: Medications, especially hydroxy urea, can interfere with test results causing a falsely and significantly higher resul t than expected. If a problem is suspected with a patient's result, a sample should be sent to the laboratory for confirmatory testing. POC Ion Ca 1.21 1.12 - 1.32 mmol/L POC TELCOR POC Sample Type Venous POC TELCOR POC Clean Dev Yes POC TELCOR Performing Lab [facility] POC TELCO R Comment: [facility], [address] [facility], [place] [address]; Lab Direct or: Genny De Leon MD; Waived Point of Care Testing - Estefania Olivo MD Specimen Anatomical Collection Method Collection Time Receive d Time (Source) Location / / Volume Laterality Blood 08/23/2023 12:33 08/23/2023 PM CDT 12:33 PM CDT Aubrie Henderson MD POINT OF CARE TEST ORDERABLE S Performing Organization Address City/State/ZIP Code Phon e Number POC TELCOR Unless otherwise noted, [place] [address] lab tests performed by: Division of Pathology and Laboratory Medicine [address] Cardiac Panel (08/23/2023 11:53 AM CDT) athologist Signature CK 40 26 - 192 [facility] U/L [facility] CK MB <2.0 <=5.3 ng/mL [facility] Troponin T 10 <=19 ng/L [facility] Comment: < 19 ng/L Suggest retest at 3 to 6 hours later to rule out myocardial infarction >= 19 to <=52 ng/L Pos sible myocardial injury. Suggest retest at 3 hours. - a change of < 20 ng/L, retest at 6 hours - a change of >= 20 ng/L, suggestive of myocardial infarction > 52 ng/L Suggestive of myocardial infarction Critical value will be reported when cTn T is > 52 ng/L and only reported for the first in a series. Hemolyzed specimens with Hemolysis Index >100 (100 mg/dl or moderate hemolysis) may cause interferences and falsely low results. Specimen Anatomical Collection Method Collection Time Receive d Time (Source) Location / / Volume Laterality Blood 08/23/2023 11:53 08/23/2023 AM CDT 12:07 PM CDT Rad Loza MD LAB BLOOD ORDERABLES Performing Organization Address City/State/ZIP Code Phon e Number [facility] CANCER Unless otherwise noted, [address] all lab tests performed by: Division of Pathology and Laboratory Medicine [address] [facility] X-ray Chest (PA & LAT) (08/22/2023 4:31 PM CDT)Only the most recent of6 resultswithin the time period is included. Anatomical Region Laterality Modality Chest Digital Radiography Specimen (Source) Anatomical Collection Method Collection Time Re ceived Time Location / / Volume Laterality 08/22/2023 4:33 PM CDT Impressions 08/22/2023 4:35 PM CDT A small loculated right pleural effusion is unchanged in volume. There are no radiographic findings of pneumonia or pulmonary edema. ACTIONABLE ITEMS/RECOMMENDATIONS: None. 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 Metastatic malignant neoplasm to bone. Indication: Shortness of breath. Comparison: Chest CT 07/11/2023. Technique: Posteroanterior, lateral, and dual-energy radiographs of the chest. Findings: Lungs/Pleura/Mediastinum: 1. There is a small loculated right pleu ral effusion that is unchanged in volume. 2. The mediastinal contours and cardiac silhouette are stable. There is no pulmonary edema or pneumonia. Musculoskeletal: 3. There are sclerotic osseous metastase s. Procedure Note Jelani Moctezuma MD - 08/22/2023Formatti ng of this note might be different from the original. FULL RESULT: Examination: XR CHEST 2 VW, 08/22/2023 4 :31 PM Clinical History: 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, NOS <Female; Right>. Metastatic malignant neoplasm to bone. Indication: Shortness of breath. Comparison: Chest CT 07/11/2023. Technique: Posteroanterior, lateral, and dual-energy radiographs of the chest. Findings: Lungs/Pleura/Mediastinum: 1. There is a small loculated right pleu ral effusion that is unchanged in volume. 2. The mediastinal contours and cardiac silhouette are stable. There is no pulmonary edema or pneumonia. Musculoskeletal: 3. There are sclerotic osseous metastase s. IMPRESSION: A small loculated right pleural effusion is unchanged in volume. There are no radiographic findings of pneumonia or pulmonary edema. ACTIONABLE ITEMS/RECOMMENDATIONS: None. Juan Reva DE [place] [facility] IMG DIAGNOSTIC IMAGING ORDER ZUHAIR XR Hip 2 or 3 Views w Pelvis Right (08/22/2023 4:31 PM CDT)Only the most recent of2 resultswithin the time period is included. Anatomical Region Laterality Modality Hip, Extremity Digital Radiography Specimen (Source) Anatomical Collection Method Collection Time Re ceived Time Location / / Volume Laterality 08/22/2023 4:57 PM CDT Impressions 08/22/2023 5:06 PM CDT 1. Interval development of nondisplaced pathologic fracture right superior and inferior pubic rami. 2. Diffuse osseous metastasis as describ ed, with multiple metastasis with increased risk of pathologic fracture. ACTIONABLE ITEMS/RECOMMENDATIONS: None. Narrative 08/22/2023 5:06 PM CDT FULL RESULT: Examination: XR HIP 2 OR 3 VW W PELVIS R IGHT, 08/22/2023 4:31 PM. Clinical History: 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, NOS <Female; Right>, metastatic malignant neoplasm to bone. Indication: Increased pain in R hip with known fracture. Comparison: CT right hip 07/25/2023, pel vis and right hip x-rays 07/08/2023 and 08/14/2022. Technique: XR HIP 2 OR 3 VW W PELVIS RIG HT. Findings: Diffuse multifocal mixed density predomi nantly osteolytic metastases noted throughout pelvis. Interval development of nondisplaced pathologic fracture of right superior and inferior pubic rami. Bilateral acetabular predominately osteo lytic metastasis are also at increased risk of fracture. Mixed density right intertrochanteric me tastasis noted with lateral cortical permeation. Bilateral sacral metastasis with predomi nantly osteolytic metastasis involving left sacral ala, with increased risk of pathologic fracture. Osteolytic metastasis of L5 also suspected. Left ureteral stent noted. Multiple surg ical clips in partially imaged abdomen and pelvis. Procedure Note LoBuster MD - 08/22/2023 FULL RESULT: Examination: XR HIP 2 OR 3 VW W PELVIS R IGHT, 08/22/2023 4:31 PM. Clinical History: 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, NOS <Female; Right>, metastatic malignant neoplasm to bone. Indication: Increased pain in R hip with known fracture. Comparison: CT right hip 07/25/2023, pel vis and right hip x-rays 07/08/2023 and 08/14/2022. Technique: XR HIP 2 OR 3 VW W PELVIS RIG HT. Findings: Diffuse multifocal mixed density predomi nantly osteolytic metastases noted throughout pelvis. Interval development of nondisplaced pathologic fracture of right superior and inferior pubic rami. Bilateral acetabular predominately osteo lytic metastasis are also at increased risk of fracture. Mixed density right intertrochanteric me tastasis noted with lateral cortical permeation. Bilateral sacral metastasis with predomi nantly osteolytic metastasis involving left sacral ala, with increased risk of pathologic fracture. Osteolytic metastasis of L5 also suspected. Left ureteral stent noted. Multiple surg ical clips in partially imaged abdomen and pelvis. IMPRESSION: 1. Interval development of nondisplaced pathologic fracture right superior and inferior pubic rami. 2. Diffuse osseous metastasis as describ ed, with multiple metastasis with increased risk of pathologic fracture. ACTIONABLE ITEMS/RECOMMENDATIONS: None. Juan Ardon APRN IMG DIAGNOSTIC IMAGING ORDER ZUHAIR Uric Acid (08/22/2023 12:33 PM CDT)Only the most recent of2 resultswithin the time period is included. athologist Signature Uric Acid 5.2 2.4 - 5.7 [facility] mg/dL [facility] Specimen Anatomical Collection Method Collection Time Receive d Time (Source) Location / / Volume Laterality Blood 08/22/2023 12:33 08/22/2023 PM CDT 12:46 PM CDT Lizet Garcia APRN LAB BLOOD ORDERABLES Performing Organization Address City/[facility]/ZIP Code Phon e Number [facility] Unless otherwise noted, [address] all lab tests performed by: Division of Pathology and Laboratory Medicine [address] (ABNORMAL) LDH (08/22/2023 12:33 PM CDT)Only the most recent of2 resultswithin the time period is included. athologist Signature LDH 317 (H) 135 - 214 [facility] U/L [facility] Comment: Results greater than 1651 U/L m ay not be reliable due to matrix effect with extended dilution as it exceeds the manu facturer's recommended limit. Caution should be exercised when interpreting such valu es and done in conjunction with clinical context. Specimen Anatomical Collection Method Collection Time Receive d Time (Source) Location / / Volume Laterality Blood 08/22/2023 12:33 08/22/2023 PM CDT 12:43 PM CDT Lizet Garcia APRN LAB BLOOD ORDERABLES Performing Organization Address City/[facility] Phon e Number [facility] Unless otherwise noted, [address] all lab tests performed by: Division of Pathology and Laboratory Medicine [address] Echocardiogram 2D Complete with Contrast (08/14/2023 12:16 PM CDT) Specimen (Source) Anatomical Collection Method Collection Time Re ceived Time Location / / Volume Laterality 08/14/2023 11:25 AM CDT Narrative ISCV - 08/14/2023 1:41 PM CDT Echocardiographic Report Interpretation Summary A complete two-dimensional transthoracic echocardiogram was performed (2D, M- mode, Spectral and color Doppler). There is no comparison study available. Micro-Bubbles injection performed because of poor endocardial resolution. The study was te chnically limited despite the use of micro-bubbles. Normal left ventricular size and systoli c function. Using an ultrasound enhancing agent and the Biplane Method of Disks, the LVEF measures 67% The right ventricle is normal in size an d function. Unable to estimate RVSP due to lack of T R visualization. There is no pericardial effusion. Left Ventricle: Normal left ventricular size and systoli c function. Using an ultrasound enhancing agent and the Biplane Method of Disks, the LVEF measures 67%. No regional wall motion abnormalities noted. Distal anteroseptal LV crypt is noted. I WMSI = 1.00 % Normal = 1 00 X - Cannot 1 - Normal 2 - 3 - Akinetic 4 - Dyskinetic Interpret Hyp okinetic 5 - Aneurysmal 3D imaginD volumes were not [facility]. Cardiac Mechanics/Speckle Tracking Imagi ng: Speckle tracking imaging was not perform ed in this study. (Rin Study). Diastology: Unable to evaluate due to technical limi tations. Right Ventricle: The right ventricle is normal in size an d function. Normal RV systolic function using TAPSE criteria. Atria: The left atrial size is normal. Right at rial size is normal. Mitral Valve: Mild thickening changes are noted. Tricuspid Valve: The tricuspid valve is not well visualiz ed, but is grossly normal. Unable to estimate RVSP due to lack of TR visualization. Aortic Valve: Mild thickening changes are noted. The a ortic valve is trileaflet. The aortic valve opens well. There is trace aortic regurgitation. Pulmonic Valve: The pulmonic valve is not well visualize d. Great Vessels: The aortic root is normal size. IVC is s mall, consistent with intravascular depletion. Pericardium/Pleural: There is no pericardial effusion. Preliminary Reviewer Preliminary Interpretation: Tanya petty MD. MMode/2D Measurements IVSd: 0.89 cm LVIDd: 4.3 cm LVPWd: 0.95 cm Ao root diam: 3.0 cm LVOT diam: 2.2 cm Ao root area: 7.0 cm2 LVOT area: 3.7 cm2 EDV(MOD-A4C): 76.7 ml EDV(MOD-A2C): 72.5 ml ESV(MOD-A4C): 26.6 ml ESV(MOD-A2C): 22.9 ml EF(MOD-A4C): 65.3 % EF(MOD-A2C): 68.4 % LAV(MOD-A2C): 31.0 ml EDV(MOD-bp): 74.6 ml LAV(MOD-A4C): 25.5 ml ESV(MOD-bp): 24.6 ml LAV(MOD-bp): 28.6 ml EF(MOD-bp): 67.1 % LAV(MOD-bp) Indexed: 17.1 ml/m2 EDV (MOD-bp) Index: 44.6 ml/m2 ESV (MOD- bp) Index: 14.7 ml/m2 RWT: 0.44 cm TAPSE (>1.6): 2.9 cm Doppler Measurements MV E max win: 70.4 cm/sec MV V2 max: 91.7 cm/sec MV A max win: 62.7 cm/sec MV max P.4 mmHg MV E/A: 1.1 MV V2 mean: 51.6 cm/sec MV mean P.3 mmHg MV V2 VTI: 21.3 cm MVA(VTI): 4.5 cm2 MV dec time: 0.18 sec Ao V2 max: 187.1 cm/sec Ao max P.0 mmHg Ao V2 mean: 114.6 cm/sec Ao mean P.2 mmHg Ao V2 VTI: 29.2 cm DENNYS(I,D): 3.3 cm2 DENNYS(V,D): 2.8 cm2 LV V1 max P.8 mmHg SV(LVOT): 94.9 ml LV V1 mean P.8 mmHg LV V1 max: 139.7 cm/sec LV V1 mean: 90.2 cm/sec LV V1 VTI: 25.5 cm RAP systole: 3.0 mmHg DENNYS Index (I,D): 1.9 DENNYS Index (V,D): 1.7 Dimensionless Index: 0.75 Procedure Note Latoya Mota MD - 08/14/2023Formattin g of this note might be different from the original. Echocardiographic Report Interpretation Summary A complete two-dimensional transthoracic echocardiogram was performed (2D, M- mode, Spectral and color Doppler). There is no comparison study available. Micro-Bubbles injection performed because of poor endocardial resolution. The study was technically li mited despite the use of micro-bubbles. Normal left ventricular size and systoli c function. Using an ultrasound enhancing agent and the Biplane Method of Disks, the LVEF measures 67% The right ventricle is normal in size an d function. Unable to estimate RVSP due to lack of T R visualization. There is no pericardial effusion. Left Ventricle: Normal left ventricular size and systoli c function. Using an ultrasound enhancing agent and the Biplane Method of Disks, the LVEF measures 67%. No regional wall motion abnormalities noted. Distal anteroseptal LV crypt is noted. I WMSI = 1.00 % Normal = 100 X - Cannot 1 - Normal 2 - 3 - Akinetic 4 - Dyskinetic Interpret Hypokinetic 5 - Aneurysmal 3D imaginD volumes were not performed in this st udy. Cardiac Mechanics/Speckle Tracking Imagi ng: Speckle tracking imaging was not perform ed in this study. (Rin Study). Diastology: Unable to evaluate due to technical limi tations. Right Ventricle: The right ventricle is normal in size an d function. Normal RV systolic function using TAPSE criteria. Atria: The left atrial size is normal. Right at rial size is normal. Mitral Valve: Mild thickening changes are noted. Tricuspid Valve: The tricuspid valve is not well visualiz ed, but is grossly normal. Unable to estimate RVSP due to lack of TR visualization. Aortic Valve: Mild thickening changes are noted. The a ortic valve is trileaflet. The aortic valve opens well. There is trace aortic regurgitation. Pulmonic Valve: The pulmonic valve is not well visualize d. Great Vessels: The aortic root is normal size. IVC is s mall, consistent with intravascular depletion. Pericardium/Pleural: There is no pericardial effusion. Preliminary Reviewer Preliminary Interpretation: Tanya petty MD. MMode/2D Measurements IVSd: 0.89 cm LVIDd: 4.3 cm LVPWd: 0.95 cm Ao root diam: 3.0 cm LVOT diam: 2.2 cm Ao root area: 7.0 cm2 LVOT area: 3.7 cm2 EDV(MOD-A4C): 76.7 ml EDV(MOD-A2C): 72.5 ml ESV(MOD-A4C): 26.6 ml ESV(MOD-A2C): 22.9 ml EF(MOD-A4C): 65.3 % EF(MOD-A2C): 68 .4 % LAV(MOD-A2C): 31.0 ml EDV(MOD-bp): 74.6 ml LAV(MOD-A4C): 2 5.5 ml ESV(MOD-bp): 24.6 ml LAV(MOD-bp): 28 .6 ml EF(MOD-bp): 67.1 % LAV(MOD-bp) Indexed: 17.1 ml/m2 EDV (MOD-bp) Index: 44.6 ml/m2 ESV (MOD-bp) Index: 14.7 ml/m2 RWT: 0.44 cm TAPSE (>1.6): 2.9 cm Doppler Measurements MV E max win: 70.4 cm/sec MV V2 max: 91.7 cm/sec MV A max win: 62.7 cm/sec MV max P.4 mmHg MV E/A: 1.1 MV V2 mean: 51.6 cm/sec MV mean P.3 mmHg MV V2 VTI: 21.3 cm MVA(VTI): 4.5 cm2 MV dec time: 0.18 sec Ao V2 max: 187 .1 cm/sec Ao max P.0 mmHg Ao V2 mean: 114.6 cm/sec Ao mean P.2 mmHg Ao V2 VTI: 29.2 cm DENNYS(I,D): 3.3 cm2 DENNYS(V,D): 2.8 cm2 LV V1 max P.8 mmHg SV(LVOT): 94.9 ml LV V1 mean P.8 mmHg LV V1 max: 139.7 cm/sec LV V1 mean: 90.2 cm/sec LV V1 VTI: 25.5 cm RAP systole: 3.0 mmHg DENNYS Index (I, D): 1.9 DENNYS Index (V,D): 1.7 Dimensionless Index: 0.75 Soilaángela Anders DE [place] [facility] CV ECHO ORDERABLES Performing Organization Address City/[facility]/ZIP Code Phon e Number ISCV CTRC EKG, 12-Lead (08/14/2023)Only the most recent of4 resultswithin the time period is included. Specimen (Source) Anatomical Location Collection Method / Collectio n Time Received Time / Laterality Volume Narrative This result has an attachment that is no t available. Vicenta Li MD PhD ECG ORDERABLES Performing Organization Address City/[facility]/ZIP Code Phon e Number RIN IECG (ABNORMAL) CA 15-3 (08/11/2023 1:31 PM CDT)Only the most recent of13 results within the time period is included. athologist Signature CA 15-3 490.0 (H) <=25.0 U/mL [facility] Comment: Results greater than 2400.0 U/mL may not be reliable due to matrix effect with extended dilution as it exceeds the scale expert's recommended limit. Caution should be exercised when interpreting such va lues and done in conjunction with clinic al context. This test is measured by electrochemilum inescence immunoassay on Carol Rashmi immunoassay analyzers. Results obtained in different methods are not interchangeable. Specimen Anatomical Collection Method Collection Time Receive d Time (Source) Location / / Volume Laterality Blood 08/11/2023 1:31 PM 1:57 CDT PM CDT Lizet Garcia APRN LAB BLOOD ORDERABLES Performing Organization Address City/[facility]/ZIP Code Phon e Number [facility] Unless otherwise noted, [place], [place] [id number] [place] [address] all lab tests performed by: Division of Pathology and Laboratory Medicine [address] (ABNORMAL) CEA (08/11/2023 1:31 PM CDT)Only the most recent of2 resultswithin the time period is included. athologist Signature CEA 14.7 (H) <=3.8 ng/mL [facility] Comment: Reference Ranges: Smoker: 0.0 - 5.5 Non-Smoker: 0.0 - 3.8 This test is measured by electrochemilum inescence immunoassay on Carol Rashmi immunoassay analyzers. Results obtained in different methods are not interchangeable. Specimen Anatomical Collection Method Collection Time Receive d Time (Source) Location / / Volume Laterality Blood 08/11/2023 1:31 PM 1:57 CDT PM CDT Lizet Garcia APRN LAB BLOOD ORDERABLES Performing Organization Address City/State/ZIP Code Phon e Number [facility] Unless otherwise noted, [place], [place] [id number] [place] [address] all lab tests performed by: Division of Pathology and Laboratory Medicine [address] [place] [address] MRI CERVICAL THORACIC LUMBAR SPINE W WO CONTRAST (07/30/2023 11:00 AM CDT) Anatomical Region Laterality Modality Spine, C-spine, T-spine, L-spine Magneti c Resonance Specimen (Source) Anatomical Collection Method Collection Time Re ceived Time Location / / Volume Laterality 07/30/2023 1:48 PM CDT Impressions 07/30/2023 2:20 PM CDT 1. Multifocal scattered osseous metastasis as above. 2. Extensive metastatic burden within the sacrum with associated extension of tumor into the thecal sac with near complete obliteration of the thecal sac. ACTIONABLE ITEMS/RECOMMENDATIONS: None. Narrative 07/30/2023 2:20 PM CDT FULL RESULT: Examination: MRI CERVICAL THORACIC LUMBA R SPINE W WO CONTRAST on 07/30/2023 11:00 AM. CLINICAL HISTORY: Breast cancer. INDICATION: Assessment of disease status . COMPARISON: CT scan of the spine dated 0 07/26/2023. MRI of the pelvis dated 07/24/2023. TECHNIQUE: MRI of the cervical, thoracic and lumbosacral spine without and with IV contrast was performed. FINDINGS: 23 presacral vertebrae, with a nonrib-be aring T12 and a sacralized L5. T4: Metastatic lesion measures 1.8 x 1.9 cm (AP X) (series 12, image 31). No associated epidural extension. T6 and T7: Punctate metastasis are seen within the vertebral bodies (series 7, image 7). T11: 2 metastatic lesions are seen withi n the vertebral body. Anteriorly a metastatic lesion measures 1.7 x 1.5 cm (cc x AP). Posteriorly metastatic lesion measures 1.6 x 1.1 cm (cc x AP) (series 7, parul ge 9). No associated vertebral body heig ht loss. No epidural extension. T12: Metastatic lesion involves nearly t he entire vertebral body. There is associated extension into the right posterior elements. There is no associated epidural extension. 15% vertebral body height loss is noted. L2: Metastatic lesion within the posteri or vertebral body measures 2.0 x 2.4 cm (cc x AP) (series 7, image 11). There is a small underlying malignant Schmorl's node deformity along the posterior inferior L2 endplate. L3: Sclerotic metastasis noted involving the posterior left L3 vertebral body with extension into the posterior elements (series 16, image 48). L4: Metastatic lesion is noted within th e posterior left vertebral body with associated extension into the posterior elements. Pathological fracture of the superior endplate results in less than 10% lala tebral body height loss. There is minima l retropulsion of the superior cortex. No definite evidence of associated epidural extension. Sacrum and posterior iliac bones. Metast atic disease is noted to involve the nearly the entire sacrum from the S2 level. There is associated extension of of tumor into the thecal sac with associated latesha r complete obliteration. Metastatic dise ase is also noted to involve the posterior right and left iliac bone (series 16, image 84). The spinal cord maintains its normal sig nal. There is no spinal cord compression Facet and uncovertebral joint osteophyte formation in the cervical spine resulting in bilateral neural foraminal narrowing at C3-C4 and C4-C5. Procedure Note Maisha Sifuentes MD - 07/30/2023Formattin g of this note might be different from the original. FULL RESULT: Examination: MRI CERVICAL THORACIC LUMBA R SPINE W WO CONTRAST on 07/30/2023 11:00 AM. CLINICAL HISTORY: Breast cancer. INDICATION: Assessment of disease status . COMPARISON: CT scan of the spine dated 0 07/26/2023. MRI of the pelvis dated 07/24/2023. TECHNIQUE: MRI of the cervical, thoracic and lumbosacral spine without and with IV contrast was performed. FINDINGS: 23 presacral vertebrae, with a nonrib-be aring T12 and a sacralized L5. T4: Metastatic lesion measures 1.8 x 1.9 cm (AP X) (series 12, image 31). No associated epidural extension. T6 and T7: Punctate metastasis are seen within the vertebral bodies (series 7, image 7). T11: 2 metastatic lesions are seen withi n the vertebral body. Anteriorly a metastatic lesion measures 1.7 x 1.5 cm (cc x AP). Posteriorly metastatic lesion measures 1.6 x 1.1 cm (cc x AP) (series 7, image 9). No associated vertebral body height loss. No epidural extension. T12: Metastatic lesion involves nearly t he entire vertebral body. There is associated extension into the right posterior elements. There is no associated epidural extension. 15% vertebral body height loss is noted. L2: Metastatic lesion within the posteri or vertebral body measures 2.0 x 2.4 cm (cc x AP) (series 7, image 11). There is a small underlying malignant Schmorl's node deformity along the posterior inferior L2 endplate. L3: Sclerotic metastasis noted involving the posterior left L3 vertebral body with extension into the posterior elements (series 16, image 48). L4: Metastatic lesion is noted within th e posterior left vertebral body with associated extension into the posterior elements. Pathological fracture of the superior endplate results in less than 10% vertebral body height loss. There is minimal retropulsi on of the superior cortex. No definite evidence of associated epidural extension. Sacrum and posterior iliac bones. Metast atic disease is noted to involve the nearly the entire sacrum from the S2 level. There is associated extension of of tumor into the thecal sac with associated near complete obliteration. Metastatic disease is also noted to involve the posterior right and left iliac bone (series 16, image 84). The spinal cord maintains its normal sig nal. There is no spinal cord compression Facet and uncovertebral joint osteophyte formation in the cervical spine resulting in bilateral neural foraminal narrowing at C3-C4 and C4-C5. IMPRESSION: 1. Multifocal scattered osseous metastas is as above. 2. Extensive metastatic burden within th e sacrum with associated extension of tumor into the thecal sac with near complete obliteration of the thecal sac. ACTIONABLE ITEMS/RECOMMENDATIONS: None. Tammie Torres APRN IMG MRI ORDERABLES 3D [facility] (iCAT) (07/28/2023 10:13 AM CDT) Specimen (Source) Anatomical Location Collection Method / Collectio n Time Received Time / Laterality Volume Narrative Systemgenerated, Documentation - 023 10:13 AM CDT This procedure requires no interpretatio n from the radiologist. Dariel Kahn DDS IMG NON DI ORDERABLES CT Cervical Thoracic Lumbar Spine without Contrast (07/26/2023 8:52 AM CDT) Anatomical Region Laterality Modality C-spine, Spine, T-spine, L-spine Compute d Tomography Specimen (Source) Anatomical Collection Method Collection Time Re ceived Time Location / / Volume Laterality 07/26/2023 8:57 AM CDT Impressions 07/26/2023 9:18 AM CDT 1. There is transitional thoracolumbar and lumbosacral anatomy: 23 presacral vertebrae, with a nonrib-bearing T12 and a sacralized L5. 2. Please note, assessment for epidura l disease is limited due to absence of intravenous contrast and inherent limitations of CT. 3. Multifocal metastatic disease to rebekah ne, progressed at L2 and L4 in the short interval since CT chest, abdomen, and pelvis from 07/11/2023. Pathological fractures at L2 and L4 levels have also progre ssed since that time. At L2, there is co ncern for minimal epidural extension of disease. Narrative 07/26/2023 9:18 AM CDT FULL RESULT: Examination: CT CERVICAL THORACIC LUMBAR SPINE WO CONTRAST, 07/26/2023 8:52 AM. 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 Technique: CT of the cervical, thoracic, and lumbar spine was performed without intravenous administration of contrast. Multiplanar reformations in the coronal and sagittal planes are provided. Findings: SPINE COUNT: 23 presacral vertebrae, wit h a nonrib-bearing T12 and a sacralized L5. POSTTREATMENT FINDINGS: None. NEOPLASTIC FINDINGS: There is no signifi cant change since 07/11/2023. [employer] Technician examples of bone lesions are provided. In the cervical spine, there is no evide nce of metastatic disease to bone on CT. At T4, there is a predominantly blastic lesion involving the vertebral body. There is focal pathological compression deformity of the superior endplate without significant overall vertebral body height loss or retropulsion into the spinal canal. At T6, there is a tiny sclerotic lesion in the posterior vertebral body that measures 0.4 cm on series 608, image 55. At T11, there are several lytic and savannah tic lesions in the vertebral body. The dominant lesion is located in the posterior vertebral body and measures 1.5 cm on series 608, image 52. There is disruption of the posterior cortex. Assessment for epidural disease is limited in the absence of intravenous contrast. At T12, there is a predominantly blastic lesion involving the majority of the vertebral body and extending into the right pedicle. There is an unchanged chronic-appearing pathological fracture of the ve rtebral body that results in 30% vertebr al body height loss. There is no retropulsion into the spinal canal. At L2, there is a lytic lesion in the po sterior inferior vertebral body that measures 2.6 cm on series 613, image 65. This has enlarged from 1.8 cm in the short interval since 07/11/2023. There is a new focal pathological fracture of the infe rior endplate without significant overall vertebral body height loss. There is disruption of the posterior cortex of the small suspected epidural component on series 613, image 58. At L4, there is a lesion in the posterio r vertebral body that measures 1.8 cm on series 613, image 605. This is unchanged since 07/11/2023. There is a new pathological fracture of the superior endplate that results in less than 10% vertebral body height loss and minimal retropulsion of the superior cortex. There is disruption of the posterior cortex. Assessment for epidural extension is limited on noncontrast CT. In the posterior rebekah, there are metasta ses that are incompletely assessed on the current examination. Please refer to MRI pelvis from 07/24/2023 for complete assessment. In the sacrum, there are multiple predom inantly blastic metastases extending from S1 through S5. There is epidural extension that is better assessed on MRI from 07/24/2023. NON-NEOPLASTIC FINDINGS: Alignment: Maintained. Instability: No imaging evidence of inst ability. Degenerative: Facet and uncovertebral osiel int osteophyte formation in the cervical spine resulting in bilateral neural foraminal narrowing at C3-C4 and C4-C5. Other fractures: No acute non-pathologic al fracture. OTHER PERTINENT POSITIVE AND NEGATIVE FI NDINGS: None. Procedure Note Dax Whiting MD PhD - 07/26/2023Forma tting of this note might be different from the original. FULL RESULT: Examination: CT CERVICAL THORACIC LUMBAR SPINE WO CONTRAST, 07/26/2023 8:52 AM. 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 Technique: CT of the cervical, thoracic, and lumbar spine was performed without intravenous administration of contrast. Multiplanar reformations in the coronal and sagittal planes are provided. Findings: SPINE COUNT: 23 presacral vertebrae, wit h a nonrib-bearing T12 and a sacralized L5. POSTTREATMENT FINDINGS: None. NEOPLASTIC FINDINGS: There is no signifi cant change since 07/11/2023. [employer]ician examples of bone lesions are provided. In the cervical spine, there is no evide nce of metastatic disease to bone on CT. At T4, there is a predominantly blastic lesion involving the vertebral body. There is focal pathological compression deformity of the superior endplate without significant overall vertebral body height loss or retropulsion into the spinal canal. At T6, there is a tiny sclerotic lesion in the posterior vertebral body that measures 0.4 cm on series 608, image 55. At T11, there are several lytic and savannah tic lesions in the vertebral body. The dominant lesion is located in the posterior vertebral body and measures 1.5 cm on series 608, image 52. There is disruption of the posterior cortex. Assessment for epidura l disease is limited in the absence of intravenous contrast. At T12, there is a predominantly blastic lesion involving the majority of the vertebral body and extending into the right pedicle. There is an unchanged chronic-appearing pathological fracture of the vertebral body that results in 30% vertebral body heigh t loss. There is no retropulsion into the spinal canal. At L2, there is a lytic lesion in the po sterior inferior vertebral body that measures 2.6 cm on series 613, image 65. This has enlarged from 1.8 cm in the short interval since 07/11/2023. There is a new focal pathological fracture of the inferior en dplate without significant overall vertebral body height loss. There is disruption of the posterior cortex of the small suspected epidural component on series 613, image 58. At L4, there is a lesion in the posterio r vertebral body that measures 1.8 cm on series 613, image 605. This is unchanged since 07/11/2023. There is a new pathological fracture of the superior endplate that results in less than 10% vertebral body height loss and minimal retropulsion of the superior cortex. There is disruption of the posterior cortex. Assessment for epidural extension is limited on noncontrast CT. In the posterior rebekah, there are metasta ses that are incompletely assessed on the current examination. Please refer to MRI pelvis from 07/24/2023 for complete assessment. In the sacrum, there are multiple predom inantly blastic metastases extending from S1 through S5. There is epidural extension that is better assessed on MRI from 07/24/2023. NON-NEOPLASTIC FINDINGS: Alignment: Maintained. Instability: No imaging evidence of inst ability. Degenerative: Facet and uncovertebral osiel int osteophyte formation in the cervical spine resulting in bilateral neural foraminal narrowing at C3-C4 and C4-C5. Other fractures: No acute non-pathologic al fracture. OTHER PERTINENT POSITIVE AND NEGATIVE FI NDINGS: None. IMPRESSION: 1. There is transitional thoracolumbar a nd lumbosacral anatomy: 23 presacral vertebrae, with a nonrib-bearing T12 and a sacralized L5. 2. Please note, assessment for epidural disease is limited due to absence of intravenous contrast and inherent limitations of CT. 3. Multifocal metastatic disease to bone , progressed at L2 and L4 in the short interval since CT chest, abdomen, and pelvis from 07/11/2023. Pathological fractures at L2 and L4 levels have also progressed since that time. At L2, there is concern for minima l epidural extension of disease. Tammie Torres BRITT IMG CT ORDERABLES X-ray Femur 2 Views Right (07/25/2023 10:02 PM CDT) Anatomical Region Laterality Modality Thigh, Extremity Digital Radiography Specimen (Source) Anatomical Collection Method Collection Time Re ceived Time Location / / Volume Laterality 07/25/2023 10:24 PM CDT Impressions 07/26/2023 12:39 AM CDT Osseous metastases as above. No acute fracture or dislocation. Please refer to CT of the right hip obtained earlier on the same date for complete assessment. ACTIONABLE ITEMS/RECOMMENDATIONS: None. I personally reviewed these image(s) omid blood with the resident's/fellow's interpretations, certify that if a procedure was performed I was physically present, and agree with the final report. Narrative 07/26/2023 12:39 AM CDT FULL RESULT: Examination: XR FEMUR 2 VW RIGHT, 023 10:02 PM. Clinical History: Back pain; breast canc er, metastatic to lymph nodes and bone; presentation to the [facility] with hip pain and abnormal MRI. Indication: Pain Comparison: CT of the right hip from , MRI pelvis from 07/24/2023, bone scan from 07/11/2023, and conventional radiography of the right hip from 07/08/2023. Technique: AP and lateral views of the p roximal and distal right femur. A total of 4 images Findings: There are mixed blastic/lytic bone metas tases in the pelvis and visualized and intertrochanteric femur, which appear progressed since the 07/08/2023 exam. Known metastatic disease in the sacrum is obscu red by overlying bowel gas and contents. Notably there is increased lucency involving the right inferior pubic ramus. No acute fracture or dislocation is identified. A left ureteral stent is partially visua lized. Procedure Note Dax Whiting MD PhD - 07/26/2023Forma tting of this note might be different from the original. FULL RESULT: Examination: XR FEMUR 2 VW RIGHT, 023 10:02 PM. Clinical History: Back pain; breast canc er, metastatic to lymph nodes and bone; presentation to the [facility] with hip pain and abnormal MRI. Indication: Pain Comparison: CT of the right hip from , MRI pelvis from 07/24/2023, bone scan from 07/11/2023, and conventional radiography of the right hip from 07/08/2023. Technique: AP and lateral views of the p roximal and distal right femur. A total of 4 images Findings: There are mixed blastic/lytic bone metas tases in the pelvis and visualized and intertrochanteric femur, which appear progressed since the 07/08/2023 exam. Known metastatic disease in the sacrum is obscured by overlying bowel gas and contents. Notably there is increased lucency involving the right inferior pubic ramus. No acute fracture or dislocation is identified. A left ureteral stent is partially visua lized. IMPRESSION: Osseous metastases as above. No acute fr acture or dislocation. Please refer to CT of the right hip obtained earlier on the same date for complete assessment. ACTIONABLE ITEMS/RECOMMENDATIONS: None. I personally reviewed these image(s) omid blood with the resident's/fellow's interpretations, certify that if a procedure was performed I was physically present, and agree with the final report. Dayday Concepcion MD IMG DIAGNOSTIC IMAGING ORDER ZUHAIR CT Hip Right without Contrast (07/25/2023 7:39 PM CDT) Anatomical Region Laterality Modality Extremity, Hip Computed Tomography Specimen (Source) Anatomical Collection Method Collection Time Re ceived Time Location / / Volume Laterality 07/25/2023 8:02 PM CDT Impressions 07/25/2023 8:16 PM CDT Multicentric predominantly mixed lytic blastic metastasis in the throughout the right ilium, right ischium, throughout the sacrum and proximal right femur especially intertrochanteric area with the grea test risk for pathologic fracture given the dominant lytic lesion and moth-eaten destruction in the right acetabulum series 8 image 97. Destructive lesions in the right acetabulum have increased when compared to 05/27/2023. ACTIONABLE ITEMS/RECOMMENDATIONS: None. Narrative 07/25/2023 8:16 PM CDT FULL RESULT: Examination: CT HIP RIGHT WO CONTRAST, 7:39 PM. 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 Multiplanar reformations in the coronal and sagittal planes are provided. Findings: Multiple mixed lytic and scler otic lesions in the pelvis and sacrum and femur consistent with multicentric metastatic disease. Large area of lytic and mixed sclerotic changes in the right acet abulum extending into the right ischium as well as up in the right iliac crest with this degree of osteolyses concern for early risk for pathologic fracture weightbearing features of the hip series 8 im age 99. Mixed lytic sclerotic lesion in the right ilium adjacent the SI joint and extensive changes throughout the multiple levels of the sacrum from S1 to S5 as illustrated on series 9 image 2 consiste nt with multicentric metastasis in the r ight ilium adjacent SI joint and sacrum. Lytic lesions extending over to the right pubic bone consistent with extensive right ileal metastasis. Lytic sclerotic le sions in the proximal right femur in the intertrochanteric area concerned about metastatic disease with some cortical osteolyses and moth-eaten destruction again with this dislocation follow-up since with progressive destruc tion this area will be at greater risk for pathologic fracture. No acute pathologic bone features at present or joint abnormality is identified these lesions are similar to prior radiography pelvis 07/08/2023. Procedure Note Keron Dawkins MD - 07/25/2023Formattin g of this note might be different from the original. FULL RESULT: Examination: CT HIP RIGHT WO CONTRAST, 7:39 PM. 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 Multiplanar reformations in the coronal and sagittal planes are provided. Findings: Multiple mixed lytic and scler otic lesions in the pelvis and sacrum and femur consistent with multicentric metastatic disease. Large area of lytic and mixed sclerotic changes in the right acetabulum extending into the right ischium as well as up in the right iliac crest with this degree of osteolyses concern for early risk for pathologic fracture weightbearing features of the hip series 8 image 99. Mixed lytic sclerotic lesion in the right ilium malena cent the SI joint and extensive changes throughout the multiple levels of the sacrum from S1 to S5 as illustrated on series 9 image 2 consistent with multicentric metastasis in the right ilium adjacent SI joint and sa gutierrez. Lytic lesions extending over to the right pubic bone consistent with extensive right ileal metastasis. Lytic sclerotic lesions in the proximal right femur in the intertrochanteric area concerned about m etastatic disease with some cortical osteolyses and moth-eaten destruction again with this dislocation follow-up since with progressive destruc tion this area will be at greater risk for pathologic fracture. No acute pathologic bone features at present or joint abnormality is identified these lesions are similar to prior radiography pelvis 07/08/2023. IMPRESSION: Multicentric predominantly mixed lytic b lastic metastasis in the throughout the right ilium, right ischium, throughout the sacrum and proximal right femur especially intertrochanteric area with the greatest risk for pathologic fracture given the d ominant lytic lesion and moth-eaten destruction in the right acetabulum series 8 image 97. Destructive lesions in the right acetabulum have increased when compared to 05/27/2023. ACTIONABLE ITEMS/RECOMMENDATIONS: None. Victorino Dawn DO IMG CT ORDERABLES MRI Pelvis with and without Contrast - Musculoskeletal (07/24/2023 3:50 PM CDT) Anatomical Region Laterality Modality Pelvis Magnetic Resonance Specimen (Source) Anatomical Collection Method Collection Time Re ceived Time Location / / Volume Laterality 07/25/2023 10:02 AM CDT Impressions 07/25/2023 10:23 AM CDT 1. Epidural tumor is visualized in the majority of the sacral spinal canal. 2. A metastasis to the intertrochanter ic right femur extends to the anterior cortex. No definite cortical permeation on the CT of the pelvis obtained on 07/11/2023. Dedicated radiography of the right hip can be obtained for further evaluation. ACTIONABLE ITEMS/RECOMMENDATIONS: See Im pression Narrative 07/25/2023 10:23 AM CDT FULL RESULT: Examination: MRI PELVIS W WO CONTRAST - MUSCULOSKELETAL, 07/24/2023 3:50 PM. Clinical History: Hip pain <Right side> Metastatic right breast cancer involving the pelvis. Radiation therapy to the right hip in February 2022. Current MICHAELLE-222. Indication: Fall, Low back pain, X-ray h ip done, Hip pain, Cancer staging or restaging, hip pain, Comparison: No prior MRI of the pelvis i s available for comparison. Comparison is made with the CT of the pelvis obtained on 07/11/2023. Technique: Multiplanar, multisequence ma gnetic resonance imaging of the pelvis was performed without and with intravenous administration of contrast. Findings: Scattered osseous metastases are visuali zed within the bony pelvis, visualized lumbar spine and a lesion is also visualized in the intertrochanteric right femur. A large lesion is visualized throughout the majority of the sacrum with extension across the right sacroiliac joint to involve the right medial iliac bone. It is questionably confluent with a large meta stasis involving essentially the entire right acetabulum, ischium, inferior pubic ramus with portions of the superior pubic ramus and portions of the body of the right pubic bone. No definite confluence with the large me tastasis involving the left medial iliac bone. The lesions involving the left acetabulum and the left ischium also appear separate but in close proximity. The sacral lesion produces epidural tumo r extension into the central spinal canal. The cephalad aspect of the epidural tumor is located at S2 on series 6 image 13 and it fills the central spinal canal f or nearly is the remainder of the length of the canal. The lesion in the intertrochanteric righ t femur measures 2.5 x 2.8 cm on series 6 image 36 and extends 3.2 cm in length on series 400 image 84. It demonstrates restricted diffusion with an ADC value of 0.90 on series 950 image 96, indicating active disease. No suspicious osteolysis is visualized on the CT obtained on 07/11/2023. Dedicated radiography of the right hip can be obtained for further evaluation. Procedure Note Latoya Lira MD - 07/25/2023Forma tting of this note might be different from the original. FULL RESULT: Examination: MRI PELVIS W WO CONTRAST - MUSCULOSKELETAL, 07/24/2023 3:50 PM. Clinical History: Hip pain <Right side> Metastatic right breast cancer involving the pelvis. Radiation therapy to the right hip in February 2022. Current MICHAELLE-222. Indication: Fall, Low back pain, X-ray h ip done, Hip pain, Cancer staging or restaging, hip pain, Comparison: No prior MRI of the pelvis i s available for comparison. Comparison is made with the CT of the pelvis obtained on 07/11/2023. Technique: Multiplanar, multisequence ma gnetic resonance imaging of the pelvis was performed without and with intravenous administration of contrast. Findings: Scattered osseous metastases are visuali zed within the bony pelvis, visualized lumbar spine and a lesion is also visualized in the intertrochanteric right femur. A large lesion is visualized throughout the majority of the sacrum with extension across the right sacroiliac joint to involve the right medial iliac bone. It is questionably confluent with a large metastasis involving essentially the entire right acetabulum, ischium, inferior pubic ramus with portions of the superior pubic ramus and portions of the body of the right pubic bone. No definite confluence with the large me tastasis involving the left medial iliac bone. The lesions involving the left acetabulum and the left ischium also appear separate but in close proximity. The sacral lesion produces epidural tumo r extension into the central spinal canal. The cephalad aspect of the epidural tumor is located at S2 on series 6 image 13 and it fills the central spinal canal for nearly is the remainder of the length of the canal . The lesion in the intertrochanteric righ t femur measures 2.5 x 2.8 cm on series 6 image 36 and extends 3.2 cm in length on series 400 image 84. It demonstrates restricted diffusion with an ADC value of 0.90 on series 950 image 96, indicating active disease. No suspicious osteolysis is visualized on the CT obtained on 07/11/2023. Dedicated radiography of the right hip can be obtained for further evaluation. IMPRESSION: 1. Epidural tumor is visualized in the m ajority of the sacral spinal canal. 2. A metastasis to the intertrochanteric right femur extends to the anterior cortex. No definite cortical permeation on the CT of the pelvis obtained on 07/11/2023. Dedicated radiography of the right hip can be obtained for further evaluation. ACTIONABLE ITEMS/RECOMMENDATIONS: See Im pression Lizet Garcia DENTAL ASSISTANT INSTRUCTOR IMG MRI ORDERABLES IR CT GUIDED BIOPSY BONE DEEP PELVIC (07/15/2023 3:45 PM CDT) Anatomical Region Laterality Modality Bone Computed Tomography Specimen (Source) Anatomical Location Collection Method / Collectio n Time Received Time / Laterality Volume Narrative 07/17/2023 2:05 PM CDT Table formatting from the original result was not included. Date of Procedure: 07/15/23 Attending Physician: Ysabel Tam Machining Engineer: None Pre Procedure Diagnosis: 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, NOS <Female; Right> Post Procedure Diagnosis: Unchanged Indication: Enlarging mass / nodule fo r tissue diagnosis and Research sampling Protocol Number: [id number] Title of Procedure: Percutaneous Computed Tomography-Guided Biopsy Operative Findings: Percutaneous image-guided biopsy of 3cm left iliac bone lesion. Consent: The procedure, risks, indicat ions and alternatives were explained. All questions were answered a nd informed consent was obtained. I have reviewed the history and physical dictated by the mid-level practitioner / fellow. Sedation/Anesthesia: Moderate sedation for pain control and anxiety was administered by a dedicated nurse under my supervision. There was continuous monitoring of oxygen saturati on, heart rate and intermittent monitoring of blood pressure during the procedure. Medication given was midazolam and fentanyl. I was present for the administration of the medications indicated above. Procedure Events Event Event Time Sedation Start 07/15/2023 3:13 PM Sedation End 07/15/2023 3:44 PM Procedure in Detail: A time out was performed prior to the st art of the procedure and the correct patient, procedure, presence of consent, site, and side were confirmed with all members of the team. With the patient in the prone position, the skin overlying the area of interest was prepped and draped in the u sual sterile fashion. Lidocaine 1% was used for local anesthesia. Using a posterior approach under Compute d Tomography image-guidance, a 10 gauge needle was advanced down to the le ft iliac bone lesion. An image was obtained and placed into the medical record. Samples were obtained for evaluation. Sampling: Core Biopsy: A 12 gauge needle used to obtain samples for surgical pathology evaluation. Total number of samples: 1 Research Biopsy: A 12 gauge needle wa s used to obtain 2 core samples as per protocol. Specimens Disposition: Diagnostic Biopsy: The biopsy samples were submitted to pathology. Additional Comments: None Estimated Blood Loss: Minimal Immediate Complications: None Disposition: PACU Plan: No follow-up with Interventional Radiolo gy required. Alirezavenancio Childs Juan Antonio [facility] [place] ORDERABLES Pathology Biopsy Interpretation (07/15/2023 3:08 PM CDT)Only the most recent of2 resultswithin the time period is included. Component Value Ref Test Analysis Performed Pathologis t Range Method Time At Signature Submitted Infiltrating duct and 07/18/2023 [facility] Clinical lobular carcinoma of 2:55 PM History breast, NOS <Female; CDT Right> [C50.911] Diagnosis A: Left iliac bone lesion, core biopsy: 07/18/2023 [facility] Electronically METASTATIC BREAST CARCINOMA INVOLVING BONE (SEE COMMENT) 2:55 PM signed by CDT Inga shepard MD [facility] on 3 at 2:55 PM Comment Very few tumor cells 07/18/2023 [facility] ABS are seen in the 2:55 PM fibrotic bone marrow. CDT Immunohistochemical studies show that the tumor cells are positive for -cytokeratin cocktail and GATA3. Gross A: 07/18/2023 [facility] Description Bone, left iliac bone lesion biopsy: 4 flores-brown bone cores ranging from 0.5 cm - 1.3 cm in length and up to 0.3 cm in diameter, entirely submitted in A1 for decalcification. ET 2:55 PM CDT Biomarker A1 (possibly 07/18/2023 [facility] Block(s) insufficient) 2:55 PM CDT Disclaimer "Some tests reported 07/18/2023 [facility] here may have been 2:55 PM developed and CDT performance characteristics determined by [facility] Pathology and Laboratory Medicine. These tests have not been specifically cleared or approved by the U.S. Food and Drug Administration. If applicable, controls were reviewed and showed appropriate reactivity." Specimen Anatomical Collection Method Collection Time Receive d Time (Source) Location / / Volume Laterality Tissue specimen 07/15/2023 3:08 PM 2022 8:40 (specimen) CDT AM CDT (Bone) Naya Romano APRN LAB PATHOLOGY ORDERABLES Performing Organization Address City/State/ZIP Code Phon e Number [facility] [place] [address], [place] [address] Chest Abdomen Pelvis with Contrast (07/11/2023 2:14 PM CDT)Only the most recent of4 resultswithin the time period is included. Anatomical Region Laterality Modality Abdomen, Pelvis, Chest Computed Tomograp hy Specimen (Source) Anatomical Collection Method Collection Time Re ceived Time Location / / Volume Laterality 07/11/2023 3:14 PM CDT Impressions 07/11/2023 3:27 PM CDT 1. Interval enlargement of a soft tissue nodule in the left flank, concerning for a subcutaneous metastasis. 2. Stable small amount of right pleura l fluid and right pleural thickening, consistent with metastatic disease. 3. Stable subcentimeter pulmonary nodu les, nonspecific. 4. Stable left supraclavicular and rig ht internal mammary lymphadenopathy. 5. No evidence of metastatic disease i n the abdomen or pelvis. 6. Stable scattered osseous metastases . ACTIONABLE ITEMS/RECOMMENDATIONS: None. Narrative 07/11/2023 3:27 PM CDT Examination: CT CHEST ABDOMEN PELVIS W CONTRAST on 07/11/2023 2:14 PM. Clinical History: 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, NOS <Female; Right>. Indication: COVID-19 Not Suspected, prio r to treatment. Comparison: 06/27/[address] and 02/09 CT of the chest, abdomen, pelvis. Technique: CT images of the chest, abdom en and pelvis with IV contrast CHEST FINDINGS: Lines and Tubes: None. Lungs and Pleura: A small region of grou ndglass opacity in the left upper lobe is new (image 36 of series 7), likely inflammatory. Several subpleural nodular foci in the right lung are stable. A 0.8 cm pulmonary nodule in the left lower lobe is stable (image 84 of series 7). No enlarging pulmonary nodules. Stable appearance of the right-sided pleura with multiloculated effusion and previous talc pleurodesis. Cardiomediastinum: The heart is normal i n size. Trace pericardial fluid. Lymph nodes: Stable 1.1 cm lymph node in the left supraclavicular region (image 5 of series 5). Stable right internal mammary lymphadenopathy (image 40 of series 5). No new sites of lymphadenopathy in t he chest. Stable prominent left axillary lymph node. Chest Wall: Surgical clips in the right axilla with postsurgical scarring. ABDOMEN AND PELVIS FINDINGS: Hepatobiliary: No suspicious liver lesio ns. Stable benign hemangioma in the right liver segment 7. The gallbladder is unremarkable. Spleen: Unremarkable Pancreas: Unremarkable Adrenal Glands: Unremarkable Kidneys: Left nephroureteral stent in pl lor. Persistent dilatation of the left collecting system. The right kidney is unremarkable Urinary Bladder: Unremarkable Gastrointestinal Tract: Unremarkable Reproductive Organs: Unremarkable Peritoneum/Retroperitoneum: No ascites. Lymph Nodes: No lymphadenopathy in the a bdomen or pelvis. Lines and Tubes: MUSCULOSKELETAL FINDINGS: Scattered sclerotic osseous metastases a re grossly stable. A 1.2 cm soft tissue nodule in the left flank region has increased in size from 0.6 cm on the prior study, suspicious for metastasis. OTHER: None Procedure Note Linnea Junior MD - 07/11/2023Format ting of this note might be different from the original. Examination: CT CHEST ABDOMEN PELVIS W C ONTRAST on 07/11/2023 2:14 PM. Clinical History: 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, NOS <Female; Right>. Indication: COVID-19 Not Suspected, prio r to treatment. Comparison: 06/27/[address] and 02/09 CT of the chest, abdomen, pelvis. Technique: CT images of the chest, abdom en and pelvis with IV contrast CHEST FINDINGS: Lines and Tubes: None. Lungs and Pleura: A small region of grou ndglass opacity in the left upper lobe is new (image 36 of series 7), likely inflammatory. Several subpleural nodular foci in the right lung are stable. A 0.8 cm pulmonary nodule in the left lower lobe is stable (image 84 of series 7). No enlarging pulmonary nodules. Stable appearance of the right-sided pleura with multiloculated effusion and previous talc pleurodesis. Cardiomediastinum: The heart is normal i n size. Trace pericardial fluid. Lymph nodes: Stable 1.1 cm lymph node in the left supraclavicular region (image 5 of series 5). Stable right internal mammary lymphadenopathy (image 40 of series 5). No new sites of lymphadenopathy in the chest. Stable prominent left axillary lymph nod e. Chest Wall: Surgical clips in the right axilla with postsurgical scarring. ABDOMEN AND PELVIS FINDINGS: Hepatobiliary: No suspicious liver lesio ns. Stable benign hemangioma in the right liver segment 7. The gallbladder is unremarkable. Spleen: Unremarkable Pancreas: Unremarkable Adrenal Glands: Unremarkable Kidneys: Left nephroureteral stent in pl lor. Persistent dilatation of the left collecting system. The right kidney is unremarkable Urinary Bladder: Unremarkable Gastrointestinal Tract: Unremarkable Reproductive Organs: Unremarkable Peritoneum/Retroperitoneum: No ascites. Lymph Nodes: No lymphadenopathy in the a bdomen or pelvis. Lines and Tubes: MUSCULOSKELETAL FINDINGS: Scattered sclerotic osseous metastases a re grossly stable. A 1.2 cm soft tissue nodule in the left flank region has increased in size from 0.6 cm on the prior study, suspicious for metastasis. OTHER: None IMPRESSION: 1. Interval enlargement of a soft tissue nodule in the left flank, concerning for a subcutaneous metastasis. 2. Stable small amount of right pleural fluid and right pleural thickening, consistent with metastatic disease. 3. Stable subcentimeter pulmonary nodule s, nonspecific. 4. Stable left supraclavicular and right internal mammary lymphadenopathy. 5. No evidence of metastatic disease in the abdomen or pelvis. 6. Stable scattered osseous metastases. ACTIONABLE ITEMS/RECOMMENDATIONS: None. Naya Romano APRN IMG CT ORDERABLES EKG, 12-Lead (Scheduled) (07/11/2023)Only the most recent of3 resultswithin the time period is included. Specimen (Source) Anatomical Location Collection Method / Collectio n Time Received Time / Laterality Volume Narrative This result has an attachment that is no t available. Naya Yosth Juan Antonio DE [facility] ECG ORDERABLES Performing Organization Address City/State/ZIP Code Phon e Number [facility] IECG OCT, Optic Nerve - OU - Both Eyes (07/08/2023 3:27 PM CDT) Specimen (Source) Anatomical Location Collection Method / Collectio n Time Received Time / Laterality Volume Narrative Laura Sexton MD - 07/15/2023 9:55 AM CDT Right Eye Average nerve fiber layer thickness cons istent with normal Left Eye Average nerve fiber layer thickness cons istent with normal Laura Sexton MD OPHTHALMOLOGY IMG ORDERABLES OCT, Retina - OU - Both Eyes (07/08/2023 3:27 PM CDT) Specimen (Source) Anatomical Location Collection Method / Collectio n Time Received Time / Laterality Volume Narrative Laura Sexton MD - 07/15/2023 9:55 AM CDT Right Eye This is the baseline exam. Findings incl ude normal observations. Left Eye This is the baseline exam. Findings incl ude normal observations. Laura Sexton MD OPHTHALMOLOGY IMG ORDERABLES Fundus Photos - OU - Both Eyes (07/08/2023 3:27 PM CDT) Specimen (Source) Anatomical Location Collection Method / Collectio n Time Received Time / Laterality Volume Narrative Laura Sexton MD - 07/15/2023 9:55 AM CDT Right Eye Basline Exam. Left Eye Basline Exam. Laura Sexton MD OPHTHALMOLOGY IMG ORDERABLES (ABNORMAL) SPIROMETRY W/O DILATORS, DLCO AND BODY PLETHSMOGRAPHIC LUNG VOLUMES (07/08/2023 11:03 AM CDT) Analysis Performed At [facility] Time Signature FVC (L) pre 1.381 (L) 2.424 - 07/09/2023 [place] 3.714 L 8:25 AM CDT FEV1 (L) pre 0.996 (L) 1.833 - 07/09/2023 [place] 2.924 L 8:25 AM CDT FEV1/FVC (%) 72.146 68.478 - 07/09/2023 [place] pre 88.066 % 8:25 AM CDT DLCO_SB 12.545 1.180 - 07/09/2023 [place] ml/(min*mmHg) 21.346 8:25 AM CDT ml/(min*mm Hg) DLCOc_SB 13.295 1.180 - 07/09/2023 [place] ml/(min*mmHg) 21.346 8:25 AM CDT ml/(min*mm Hg) TLC (L) 2.922 (L) 3.585 - 07/09/2023 [place] 5.559 L 8:25 AM CDT RV (L) 1.528 1.210 - 07/09/2023 [place] 2.361 L 8:25 AM CDT RV/TLC (%) 52.293 (H) 29.430 - 07/09/2023 [place] 48.610 % 8:25 AM CDT FVC (% pred) 45 % 07/09/2023 [place] pre 8:25 AM CDT FEV1 (%pred) 42 % 07/09/2023 [place] pre 8:25 AM CDT FEV1/FVC (% 92 % 07/09/2023 [place] pred) pre 8:25 AM CDT TLC (% pred) 64 % 07/09/2023 [place] 8:25 AM CDT RV (% pred) 86 % 07/09/2023 [place] 8:25 AM CDT RV/TLC (% 134 % 07/09/2023 [place] pred) 8:25 AM CDT DLCO_SB (% 110 % 07/09/2023 [place] pred) 8:25 AM CDT DLCOc_SB (% 116 % 07/09/2023 [place] pred) 8:25 AM CDT Specimen (Source) Anatomical Collection Method Collection Time Re ceived Time Location / / Volume Laterality 07/08/2023 10:11 AM CDT Narrative This result has an attachment that is no t available. Cookie Sterling APRN PFT ORDERABLES Performing Organization Address City/State/ZIP Code Phon e Number [facility] [facility] (07/08/2023 9:00 AM CDT) P athologist Signature Beta HCG, <1.7 <=4.9 [facility] mIU/mL [facility] Comment: [facility] Reference Values: Negative: <5 mIU/mL Indeterminate: 5-25 mIU/mL Positive: >25 mIU/mL Values between 5 and 25 mIU/mL are indet erminate for . Consider confirming with repeat test in 72 hours. Values in should double every 3 days for the first 6 weeks. Specimen Anatomical Collection Method Collection Time Receive d Time (Source) Location / / Volume Laterality Blood 07/08/2023 9:00 AM 9:40 CDT AM CDT Naya Romano BRITT LAB BLOOD ORDERABLES Performing Organization Address City/State/ZIP Code Phon e Number [facility] Unless otherwise noted, [place], [place] [address] CENTER all lab tests performed by: Division of Pathology and Laboratory Medicine [address] [place] [address] (ABNORMAL) D Dimer (06/27/2023 10:48 AM CDT) athologist Signature D-Dimer 4.18 (H) 0.10 - 0.50 [facility] mcg/ml [facility] Comment: The cut off value for exclusion of venou s thromboembolism is <0.51 mcg/mL FEUs (fibrinogen equival ent units). Specimen Anatomical Collection Method Collection Time Receive d Time (Source) Location / / Volume Laterality Blood 06/27/2023 10:48 06/27/2023 AM CDT 11:01 AM CDT Sarath Joshi MD LAB BLOOD ORDERABLES Performing Organization Address City/State/ZIP Code Phon e Number [facility] Unless otherwise noted, [place] [address] [place] all lab tests performed by: Division of Pathology and Laboratory Medicine [address] [place] [address] US Arm Venous Doppler Bilateral (06/27/2023 8:08 AM CDT) Anatomical Region Laterality Modality Arm, Extremity Ultrasound Specimen (Source) Anatomical Collection Method Collection Time Re ceived Time Location / / Volume Laterality 06/27/2023 8:09 AM CDT Impressions 06/27/2023 8:24 AM CDT No deep venous thrombosis in the bilater al upper extremities. ACTIONABLE ITEMS/RECOMMENDATIONS: None p er institution-designated actionable items. Narrative 06/27/2023 8:24 AM CDT FULL RESULT: Examination: US ARM VENOUS DOPPLER BILAT ERAL on 06/27/2023 8:08 AM. Clinical History: Breast cancer. Dyspnea . Indication: Bilateral arm swelling x 2 d ays. Comparison: Multiple right upper extremi ty venous duplex ultrasounds, latest dated 04/30/2023. Left upper extremity venous duplex ultrasound 02/18/2022. TECHNIQUE: Grayscale and color/spectra l Doppler ultrasound of the bilateral upper extremity veins. FINDINGS: There is normal compressibility and spon taneous flow within the left internal jugular vein. Spontaneous flow within the proximal segment of the innominate vein and throughout the visualized left subclav guillermo vein. Normal compressibility and spo ntaneous flow within the left axillary, brachial, basilic and cephalic veins. There is normal compressibility and spon taneous flow within the right internal jugular vein. Spontaneous flow within the proximal segment of the innominate vein and throughout the visualized right subcl nurys vein. Normal compressibility and s pontaneous flow within the right axillary, brachial, basilic and cephalic veins. Procedure Note Aidan Newby MD - 06/27/2023 FULL RESULT: Examination: US ARM VENOUS DOPPLER BILAT ERAL on 06/27/2023 8:08 AM. Clinical History: Breast cancer. Dyspnea . Indication: Bilateral arm swelling x 2 d ays. Comparison: Multiple right upper extremi ty venous duplex ultrasounds, latest dated 04/30/2023. Left upper extremity venous duplex ultrasound 02/18/2022. TECHNIQUE: Grayscale and color/spectral Doppler ultrasound of the bilateral upper extremity veins. FINDINGS: There is normal compressibility and spon taneous flow within the left internal jugular vein. Spontaneous flow within the proximal segment of the innominate vein and throughout the visualized left subclavian vein. Normal compressibility and spontaneous flow wit hin the left axillary, brachial, basilic and cephalic veins. There is normal compressibility and spon taneous flow within the right internal jugular vein. Spontaneous flow within the proximal segment of the innominate vein and throughout the visualized right subclavian vein. Normal compressibility and spontaneous f low within the right axillary, brachial, basilic and cephalic veins. IMPRESSION: No deep venous thrombosis in the bilater al upper extremities. ACTIONABLE ITEMS/RECOMMENDATIONS: None p er institution-designated actionable items. Celina ROCHE IMDelmar US ORDERABLES Troponin T (In-House) (06/26/2023 3:54 PM CDT) athologist Signature Troponin T 7 <=19 ng/L [facility] Comment: < 19 ng/L Suggest retest at 3 to 6 hours later to rule out myocardial infarction >= 19 to <=52 ng/L Pos sible myocardial injury. Suggest retest at 3 hours. - a change of < 20 ng/L, retest at 6 hours - a change of >= 20 ng/L, suggestive of myocardial infarction > 52 ng/L Suggestive of myocardial infarction Critical value will be reported when cTn T is > 52 ng/L and only reported for the first in a series. Hemolyzed specimens with Hemolysis Index >100 (100 mg/dl or moderate hemolysis) may cause interferences and falsely low results. Specimen Anatomical Collection Method Collection Time Receive d Time (Source) Location / / Volume Laterality Blood 06/26/2023 3:54 PM 3 4:14 CDT PM CDT Trinidad Springer MD LAB BLOOD ORDERABLES Performing Organization Address City/State/ZIP Code Phon e Number [facility] Unless otherwise noted, [place] [address] [place] all lab tests performed by: Division of Pathology and Laboratory Medicine [address] [place] [address] Pulmonary Ultrasound (Image Transfer) (06/12/2023 8:46 AM CDT)Only the most recent of4 resultswithin the time period is included. Specimen (Source) Anatomical Location Collection Method / Collectio n Time Received Time / Laterality Volume Narrative Systemgenerated, Documentation - 023 8:46 AM CDT This procedure requires no interpretatio n from the radiologist. Radha N Lombardo DENTAL ASSISTANT INSTRUCTOR IMG NON DI ORDERABLES (ABNORMAL) Glucose, Fasting (06/11/2023 9:51 AM CDT)Only the most recent of5 resultswithin the time period is included. athologist Signature Glucose 132 (H) 70 - 99 [place] Fasting mg/dL Comment: Impaired fasting glucose (increased risk for diabetes or prediabetes): 100 125 mg/dL Diabetes mellitus: >= 126 mg/dL Testing performed at [facility], [address] [place] [id number] Specimen Anatomical Collection Method Collection Time Receive d Time (Source) Location / / Volume Laterality Blood 06/11/2023 9:51 AM 3 9:52 CDT AM CDT C Ashanti Curtis APRN LAB BLOOD ORDERABLES Performing Organization Address City/State/ZIP Code Phon e Number ABEL PA[facility] [place] [facility] [place] [address] ABEL PAZ [address] [facility] [address] [place] Transvaginal (06/03/2023 11:46 AM CDT) Anatomical Region Laterality Modality Pelvis Ultrasound Specimen (Source) Anatomical Collection Method Collection Time Re ceived Time Location / / Volume Laterality 06/03/2023 11:54 AM CDT Impressions 06/03/2023 11:59 AM CDT No lesions were noted corresponding to the area of enhancement in the anterior aspect of the cervix on inferior uterus. However, it should be noted that this area of enhancement has been seen in multipl e prior examinations dated back to January 2022. The etiology of this lesion is difficult to be certain. Inflamed nabothian cyst, fibroid or other mesenchymal lesion should be considered in the differential. However, since this lesion is clearly vi sualized on CT scan, CT is a good modality for follow-up. 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 Findings: The uterus is mildly atrophic, measures approximately 4.4 x 3 x 3 cm. No lesions corresponding to the focal enhancement in the anterior aspect of the cervix was seen. The cervix is atrophic, no focal le sions were identified. Small calcific de nsity was again noted in the uterus, seen in prior CT scans, likely corresponding to a small calcified fibroid. The ovaries are not clearly visualized o n ultrasound scan however, these appear normal on the CT scan dated 05/27/2023. No free intraperitoneal fluid. Procedure Note Todd Acosta MD - 06/03/2023Form atting of this note might be different from the original. 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 Findings: The uterus is mildly atrophic, measures approximately 4.4 x 3 x 3 cm. No lesions corresponding to the focal enhancement in the anterior aspect of the cervix was seen. The cervix is atrophic, no focal lesions were identified. Small calcific density was a gain noted in the uterus, seen in prior CT scans, likely corresponding to a small calcified fibroid. The ovaries are not clearly visualized o n ultrasound scan however, these appear normal on the CT scan dated 05/27/2023. No free intraperitoneal fluid. IMPRESSION: No lesions were noted corresponding to t he area of enhancement in the anterior aspect of the cervix on inferior uterus. However, it should be noted that this area of enhancement has been seen in multiple prior examinations dated back to January 2022. T he etiology of this lesion is difficult to be certain. Inflamed nabothian cyst, fibroid or other mesenchymal lesion should be considered in the differential. However, since this lesion is clearly vi sualized on CT scan, CT is a good modality for follow-up. Marcello SÁNCHEZ US ORDERABLES US Pelvis Complete (06/03/2023 11:46 AM CDT) Anatomical Region Laterality Modality Pelvis Ultrasound Specimen (Source) Anatomical Collection Method Collection Time Re ceived Time Location / / Volume Laterality 06/03/2023 11:54 AM CDT Impressions 06/03/2023 11:59 AM CDT No lesions were noted corresponding to the area of enhancement in the anterior aspect of the cervix on inferior uterus. However, it should be noted that this area of enhancement has been seen in multipl e prior examinations dated back to January 2022. The etiology of this lesion is difficult to be certain. Inflamed nabothian cyst, fibroid or other mesenchymal lesion should be considered in the differential. However, since this lesion is clearly vi sualized on CT scan, CT is a good modality for follow-up. 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 Findings: The uterus is mildly atrophic, measures approximately 4.4 x 3 x 3 cm. No lesions corresponding to the focal enhancement in the anterior aspect of the cervix was seen. The cervix is atrophic, no focal le sions were identified. Small calcific de nsity was again noted in the uterus, seen in prior CT scans, likely corresponding to a small calcified fibroid. The ovaries are not clearly visualized o n ultrasound scan however, these appear normal on the CT scan dated 05/27/2023. No free intraperitoneal fluid. Procedure Note Todd Acosta MD - 06/03/2023Form atting of this note might be different from the original. 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 Findings: The uterus is mildly atrophic, measures approximately 4.4 x 3 x 3 cm. No lesions corresponding to the focal enhancement in the anterior aspect of the cervix was seen. The cervix is atrophic, no focal lesions were identified. Small calcific density was a gain noted in the uterus, seen in prior CT scans, likely corresponding to a small calcified fibroid. The ovaries are not clearly visualized o n ultrasound scan however, these appear normal on the CT scan dated 05/27/2023. No free intraperitoneal fluid. IMPRESSION: No lesions were noted corresponding to t he area of enhancement in the anterior aspect of the cervix on inferior uterus. However, it should be noted that this area of enhancement has been seen in multiple prior examinations dated back to January 2022. T he etiology of this lesion is difficult to be certain. Inflamed nabothian cyst, fibroid or other mesenchymal lesion should be considered in the differential. However, since this lesion is clearly vi sualized on CT scan, CT is a good modality for follow-up. Marcello Schultz MD IMG US ORDERABLES CG HER2 FISH Interpretation and Report (05/21/2023 7:23 PM CDT) Specimen (Source) Anatomical Collection Method Collection Time Re ceived Time Location / / Volume Laterality 05/21/2023 7:23 PM CDT Narrative This result has an attachment that is no t available. Nano Olvera MD, MDA HP CYTOGENETICS (HP CG) Performing Organization Address City/State/ZIP Code Phon e Number [facility] Unless otherwise noted, [address] all lab tests performed by: Division of Pathology and Laboratory Medicine [facility] [place] Vinod Cytogenetics Specimen Collection -FFPE (05/21/2023 7:23 PM CDT) Patholo gist Method Time Signature Guerda Ap Link [phone] Cytogenetics Yes [facility] ([facility]) [facility] Specimen Anatomical Collection Method Collection Time Receive d Time (Source) Location / / Volume Laterality FFPE 05/21/2023 7:23 PM 3 7:23 CDT PM CDT Nano Olvera MD, MDA HP CG NONBLOOD COLLECTIO NS Performing Organization Address City/State/ZIP Code Phon e Number [facility] Unless otherwise noted, [address] all lab tests performed by: Division of Pathology and Laboratory Medicine [facility] Cholesterol Body Fluid (05/21/2023 1:48 PM CDT) P athologist Signature Chol BF 87 mg/dL [facility] Comment: This body fluid test has not been cleare d or approved by the FDA. Its performance characteristics have been validated by our laboratory. No reference ranges have been established unless otherwise stated . Comparison of this result with the con centration in the blood (serum or plasma) is recomm ended. The test result must be interpreted in conjunction with the patient s clinical context. Chol BF Type Pleural fluid NC MD VASHTI Rinaldi [facility] Specimen Anatomical Collection Method Collection Time Receive d Time (Source) Location / / Volume Laterality Pleural Fl 05/21/2023 1:48 PM 3 3:12 CDT PM CDT Narrative [facility] - 3 4:07 PM CDT Tube number 1 to Chemistry Stephon Alejandro MD BODY FLUIDS AND STOOLS ORDER ZUHAIR Performing Organization Address City/[facility]/ZIP Code Phon e Number [facility] Unless otherwise noted, [address] all lab tests performed by: Division of Pathology and Laboratory Medicine [address] [place] [address] BF Culture (05/21/2023 1:48 PM CDT) Patholo gist Method Time Signature Final Report No growth [facility] Gram Stain Few WBC's seen NC Report No organisms seen. [facility] Specimen Anatomical Collection Method Collection Time Receive d Time (Source) Location / / Volume Laterality Pleural Fl 05/21/2023 1:48 PM 3 3:44 (Pleural Cavity) CDT PM CDT Narrative [facility] - 3 8:12 AM CDT Tube number 3 to Microbiology Stephon Alejandro MD MICROBIOLOGY - GENERAL ORDER ZUHAIR Performing Organization Address City/[facility] Phon e Number [facility] Unless otherwise noted, [address] all lab tests performed by: Division of Pathology and Laboratory Medicine [address] [place] [address] Triglyceride Body Fluid (05/21/2023 1:48 PM CDT) P athologist Signature Trig BF 20 mg/dL [facility] Comment: This body fluid test has not been cleare d or approved by the FDA. Its performance characteristics have been validated by our laboratory. No reference ranges have been established unless otherwise stated . Comparison of this result with the con centration in the blood (serum or plasma) is recomm ended. The test result must be interpreted in conjunction with the patient s clinical context. Trig BF Type Pleural, Right NC MD [facility] Specimen Anatomical Collection Method Collection Time Receive d Time (Source) Location / / Volume Laterality Pleural Fl 05/21/2023 1:48 PM 3 3:12 CDT PM CDT Narrative [facility] - 3 4:07 PM CDT Tube number 1 to Chemistry Stephon Alejandro MD BODY FLUIDS AND STOOLS ORDER ZUHAIR Performing Organization Address City/[facility]/ZIP Code Phon e Number [facility] Unless otherwise noted, [address] all lab tests performed by: Division of Pathology and Laboratory Medicine [facility] [facility] Protein BF (05/21/2023 1:48 PM CDT) P athologist Signature Protein BF 4.4 gm/dL [facility] Comment: This body fluid test has not been cleare d or approved by the FDA. Its performance characteristics have been validated by our laboratory. No reference ranges have been established unless otherwise stated . Comparison of this result with the con centration in the blood (serum or plasma) is recomm ended. The test result must be interpreted in conjunction with the patient s clinical context. Prot BF Type Pleural fluid NC MD [facility] Specimen Anatomical Collection Method Collection Time Receive d Time (Source) Location / / Volume Laterality Pleural Fl 05/21/2023 1:48 PM 3 3:12 CDT PM CDT Narrative [facility] - 3 4:07 PM CDT Tube 1 to Chemistry Stephon lAejandro MD BODY FLUIDS AND STOOLS ORDER ZUHAIR Performing Organization Address City/[facility] Phon e Number [facility] Unless otherwise noted, [address] all lab tests performed by: Division of Pathology and Laboratory Medicine [address] [place] [address] LDH, BF (05/21/2023 1:48 PM CDT) Analysis Performed At Patho logist Time Signature LDH BF Type Pleural [facility] BF 227 U/L [facility] Comment: This body fluid test has not been cleare d or approved by the FDA. Its performance characteristics have been validated by our laboratory. No reference ranges have been established unless otherwise stated . Comparison of this result with the con centration in the blood (serum or plasma) is recomm ended. The test result must be interpreted in conjunction with the patient s clinical context. Specimen Anatomical Collection Method Collection Time Receive d Time (Source) Location / / Volume Laterality Pleural Fl 05/21/2023 1:48 PM 3 3:12 CDT PM CDT Narrative [facility] - 3 4:07 PM CDT Pleural fluid Stephon Alejandro MD BODY FLUIDS AND STOOLS ORDER ZUHAIR Performing Organization Address [facility] e Number [facility] Unless otherwise noted, [address] all lab tests performed by: Division of Pathology and Laboratory Medicine [address] Glucose Body Fluid (05/21/2023 1:48 PM CDT) P athologist Signature Glucose BF 155 mg/dL [facility] Comment: This body fluid test has not been cleare d or approved by the FDA. Its performance characteristics have been validated by our laboratory. No reference ranges have been established unless otherwise stated . Comparison of this result with the con centration in the blood (serum or plasma) is recomm ended. The test result must be interpreted in conjunction with the patient s clinical context. Gluc BF Type Pleural fluid [facility] Specimen Anatomical Collection Method Collection Time Receive d Time (Source) Location / / Volume Laterality Pleural Fl 05/21/2023 1:48 PM 3 3:12 CDT PM CDT [facility] - 3 4:07 PM CDT Tube number 1 to Chemistry Stephon Alejandro MD BODY FLUIDS AND STOOLS ORDER ZUHAIR Performing Organization Address [facility] Phon e Number [facility] Unless otherwise noted, [address] all lab tests performed by: Division of Pathology and Laboratory Medicine [address] Amylase Level Body Fluid (05/21/2023 1:48 PM CDT) P athologist Signature Amylase BF 34 U/L [facility] Comment: This body fluid test has not been cleare d or approved by the FDA. Its performance characteristics have been validated by our laboratory. No reference ranges have been established unless otherwise stated . Comparison of this result with the con centration in the blood (serum or plasma) is recomm ended. The test result must be interpreted in conjunction with the patient s clinical context. Amyl BF Type Pleural fluid NC MD [facility] Specimen Anatomical Collection Method Collection Time Receive d Time (Source) Location / / Volume Laterality Pleural Fl 05/21/2023 1:48 PM 3 3:12 CDT PM CDT Narrative [facility] - 3 4:07 PM CDT Tube number 1 to Chemistry Stephon Alejandro MD BODY FLUIDS AND STOOLS ORDER ZUHAIR Performing Organization Address City/[facility]/ZIP [facility] Phon e Number [facility] Unless otherwise noted, [place] [address] [address] all lab tests performed by: Division of Pathology and Laboratory Medicine [facility] Lipase Level (04/02/2023 8:50 AM CDT)Only the most recent of3 resultswithin the time period is included. athologist Signature Lipase Lvl 33 13 - 60 U/L [facility] Comment: Testing performed at [facility], [address] [place] [address] Specimen Anatomical Collection Method Collection Time Receive d Time (Source) Location / / Volume Laterality Blood 04/02/2023 8:50 AM 3 9:03 CDT AM CDT Marcello Schultz MD LAB BLOOD ORDERABLES Performing Organization Address [facility] [place] [address], [facility] [address] Bilirubin Total (12/05/2022 10:38 AM INDUSTRIAL MAINTENANCE MECHANIC) athologist Signature Bili Total 0.6 <=1.2 mg/dL [facility] Comment: Indocyanine Green (ICG) may cause falsel y elevated bilirubin results. Total and direct bilirubin must not be measured from samples containing indocyanine green. False elevation of total bilirubin can b e seen in patients with IgG concentrations above 28 g/L. Testing performed at [facility], [address] [place] [address] Specimen Anatomical Collection Method Collection Time Receive d Time (Source) Location / / Volume Laterality Blood 12/05/2022 10:38 12/05/2022 AM INDUSTRIAL MAINTENANCE MECHANIC 10:39 AM INDUSTRIAL MAINTENANCE MECHANIC Marcello Schultz MD LAB BLOOD ORDERABLES Performing Organization Address City/State/ZIP Code Phon e Number [facility] [place] [address] [place] [facility] [address] [facility] [address] PETCT Subsequent Treatment Strategy (10/25/2022 11:28 AM INDUSTRIAL MAINTENANCE MECHANIC) Anatomical Region Laterality Modality Whole Body Positron Emission To mography (PET) Specimen (Source) Anatomical Collection Method Collection Time Re ceived Time Location / / Volume Laterality 10/29/2022 3:47 PM INDUSTRIAL MAINTENANCE MECHANIC Impressions 10/29/2022 4:19 PM INDUSTRIAL MAINTENANCE MECHANIC 1. FDG-avid multifocal skeletal metastatic disease is again noted. All of the previously observed metastases demonstrate increasing activity and a few newly active lesions are visualized, compatible wit h progressive metastatic breast cancer. 2. New small FDG-avid neck base and righ t axillary nodes, minimal new active soft tissue along the right anterior mediastinum, and an enlarging newly conspicuous subcutaneous nodule in the left flank ar e suspicious for additional progressive metastatic disease. 3. New mildly active focal groundglass l indy opacities in the right upper lobe are compatible with inflammatory nodules and can be followed. Narrative 10/29/2022 4:19 PM INDUSTRIAL MAINTENANCE MECHANIC FULL RESULT: Examination: FDG PET/CT, 10/25/2022 11:2 8 AM Clinical History: 57-year-old female wit h metastatic breast cancer treated with surgery, systemic therapy, and radiation to spinal and right hip bone metastases as well as the right axilla. Indication: Reevaluate extent of FDG-orlando d disease, for subsequent treatment strategy purposes. Comparison: PET/CT dated 08/02/2022 Technique: F-18 fluorodeoxyglucose (FDG) 7.2 mCi was administered intravenously via the left forearm. To allow for distribution and uptake of radiotracer, the patient was asked to rest quietly for simona roximately 70 minutes. PET/CT imaging was performed from the skull vertex to the proximal thigh. CT scanning was done for attenuation correction, image registration, and diagnosis with scan parameters optimized to minimize radiation exposur e to the patient. SUV measurements are reported as maximum SUV based on body weight unless otherwise specified. Findings: Head and Neck: There is no focal abnorma l metabolic activity in the brain. The sinuses are well aerated. New small active lymph nodes are visible in the neck base. A left supraclavicular node measures 6 mm with SUV of 4.9 (image 101), and a n ew tiny node in the right posterior triangle measures 4 mm with SUV of 1.5 (image 99). Chest: Bilateral mastectomy with flap re construction has been performed. No focal activity is seen in either breast. However, a new small FDG-avid lymph node in the right subpectoral axilla measures 6 m m with SUV of 3.9 (image 114). There is also new activity with SUV of 4.3 along the right anterior mediastinum in association with minimal soft tissue thickening (image 133). Stable symmetric foci of mild radiotrace r uptake in the corazon are compatible with physiologic/reactive radiotracer uptake. There is no pleural nor pericardial effusion. New mildly active rounded groundgl ass opacities in the peripheral right up per lobe (image 132, 136) are compatible with focal inflammatory nodules. No distinct solid lung nodules are noted to suggest metastases. Abdomen and Pelvis: A left ureteral sten t remains in place. Evaluation of the unenhanced liver, spleen, pancreas, gallbladder, adrenal glands, kidneys, and bowel is unremarkable. No lymphadenopathy is i dentified in the abdomen, pelvis, or ing uinal regions. Musculoskeletal: Multiple FDG-avid bone metastases are again noted and involve the sternum, a few ribs, several levels of the spine, the bilateral pelvic bones, and the right proximal femur. All of the lesions demonstrate increase in extent/i ntensity of activity, and a few newly active lesions are visualized. One of the newly active bone metastases is located in the left ischio and has SUV of 5.6 (parul ge 283 versus 231). Increasingly active lesions include a sclerotic metastasis within the right proximal femur with current SUV of 8.8 compared to 5.5 (image 291 versus 240) and a lesion within T12 whic h has current SUV of 8.8 compared to 4.2 (image 178 versus 142). A focally active soft tissue nodule in t he left flank is more anatomically prominent with increasing conspicuity of activity, measuring 9 mm with current SUV of 7.4 compared to 1.8 (image 225 versus 181 ). No additional suspicious subcutaneous lesions are appreciated. Procedure Note Naz Jones MD - 10/29/2022 FULL RESULT: Examination: FDG PET/CT, 10/25/2022 11:2 8 AM Clinical History: 57-year-old female wit h metastatic breast cancer treated with surgery, systemic therapy, and radiation to spinal and right hip bone metastases as well as the right axilla. Indication: Reevaluate extent of FDG-orlando d disease, for subsequent treatment strategy purposes. Comparison: PET/CT dated 08/02/2022 Technique: F-18 fluorodeoxyglucose (FDG) 7.2 mCi was administered intravenously via the left forearm. To allow for distribution and uptake of radiotracer, the patient was asked to rest quietly for approximately 70 minutes. PET/CT imaging was performed fr om the skull vertex to the proximal thigh. CT scanning was done for attenuation correction, image registration, and diagnosis with scan parameters optimized to minimize radiation exposure to the patient. SUV m easurements are reported as maximum SUV based on body weight unless otherwise specified. Findings: Head and Neck: There is no focal abnorma l metabolic activity in the brain. The sinuses are well aerated. New small active lymph nodes are visible in the neck base. A left supraclavicular node measures 6 mm with SUV of 4.9 (image 101), and a new tiny node in the right posterior triangle measures 4 mm with SUV of 1.5 (image 99). Chest: Bilateral mastectomy with flap re construction has been performed. No focal activity is seen in either breast. However, a new small FDG-avid lymph node in the right subpectoral axilla measures 6 mm with SUV of 3.9 (image 114). There is also new activity with SUV of 4.3 along the right anterior mediastinum in association with minimal soft tissue thickening (image 133). Stable symmetric foci of mild radiotrace r uptake in the corazon are compatible with physiologic/reactive radiotracer uptake. There is no pleural nor pericardial effusion. New mildly active rounded groundglass opacities in the peripheral right upper lobe (image 132, 136) are compatible with focal inflammatory nodules. No distinct solid lung nodules are noted to suggest metastases. Abdomen and Pelvis: A left ureteral sten t remains in place. Evaluation of the unenhanced liver, spleen, pancreas, gallbladder, adrenal glands, kidneys, and bowel is unremarkable. No lymphadenopathy is identified in the abdomen, pelvis, or inguinal regions . Musculoskeletal: Multiple FDG-avid bone metastases are again noted and involve the sternum, a few ribs, several levels of the spine, the bilateral pelvic bones, and the right proximal femur. All of the lesions demonstrate increase in extent/intensity of activity, and a few newly active lesions are visualized. One of the newly active bone metastases is located in the left ischio and has SUV of 5.6 (image 283 versus 231). Increasingly active lesions include a sc lerotic metastasis within the right proximal femur with current SUV of 8.8 compared to 5.5 (image 291 versus 240) and a lesion within T12 which has current SUV of 8.8 compared to 4.2 (image 178 versus 142). A focally active soft tissue nodule in t he left flank is more anatomically prominent with increasing conspicuity of activity, measuring 9 mm with current SUV of 7.4 compared to 1.8 (image 225 versus 181). No additional suspicious subcutaneous lesions are appr eciated. IMPRESSION: 1. FDG-avid multifocal skeletal metastat ic disease is again noted. All of the previously observed metastases demonstrate increasing activity and a few newly active lesions are visualized, compatible with progressive metastatic breast cancer. 2. New small FDG-avid neck base and righ t axillary nodes, minimal new active soft tissue along the right anterior mediastinum, and an enlarging newly conspicuous subcutaneous nodule in the left flank are suspicious for additional progressive metastatic diseas e. 3. New mildly active focal groundglass l indy opacities in the right upper lobe are compatible with inflammatory nodules and can be followed. Marcello Schultz MD IMDelmar PETCT ORDERABLES (ABNORMAL) TSH (10/08/2022 9:41 AM INDUSTRIAL MAINTENANCE MECHANIC) athologist Signature TSH 0.02 (L) 0.27 - 4.20 [place] mcunit/mL Comment: [facility], [address] [place] [address], [place] [address] Specimen Anatomical Collection Method Collection Time Receive d Time (Source) Location / / Volume Laterality Blood 10/08/2022 9:41 AM 9:41 INDUSTRIAL MAINTENANCE MECHANIC AM INDUSTRIAL MAINTENANCE MECHANIC C Ashanti Curtis DENTAL ASSISTANT INSTRUCTOR LAB BLOOD ORDERABLES Performing Organization Address [facility]/[place] [address], [facility] [address] Free T4 (10/08/2022 9:41 AM INDUSTRIAL MAINTENANCE MECHANIC) P athologist Signature T4 Free 1.04 0.93 - 1.70 [place] ng/dL Comment: [facility], [address] [place] [address], [place] [address] Specimen Anatomical Collection Method Collection Time Receive d Time (Source) Location / / Volume Laterality Blood 10/08/2022 9:41 AM 9:41 INDUSTRIAL MAINTENANCE MECHANIC AM INDUSTRIAL MAINTENANCE MECHANIC C Ashanti Curtis APRN LAB BLOOD ORDERABLES Performing Organization Address [facility] [place] [address], [facility] [address] IHC HER2/charmaine Material Request (10/01/2022 11:33 AM INDUSTRIAL MAINTENANCE MECHANIC) Specimen Anatomical Collection Method Collection Time Receive d Time (Source) Location / / Volume Laterality Tissue specimen 10/01/2022 11:33 10/01/20 22 (specimen) AM INDUSTRIAL MAINTENANCE MECHANIC 11:33 AM INDUSTRIAL MAINTENANCE MECHANIC C Ashanti Curtis APRN [facility] [employer] Performing Organization Address [facility]/ZIP Code Ph[place] [address], [place] [address] [facility] ER Material Request (10/01/2022 11:33 AM INDUSTRIAL MAINTENANCE MECHANIC) Specimen Anatomical Collection Method Collection Time Receive d Time (Source) Location / / Volume Laterality Tissue specimen 10/01/2022 11:33 10/01/20 22 (specimen) AM INDUSTRIAL MAINTENANCE MECHANIC 11:33 AM INDUSTRIAL MAINTENANCE MECHANIC C Ashanti Curtis APRN [facility] [employer] Performing Organization Address City/[facility]/ZIP Code [place] [address], [place] [address] after 09/04/2022 Insurance Payer Benefit Plan / Subscriber ID Effective Dates Phone Addre ss Type Group [employer] POS [id number] 2022-Present [id number] [place] [address] Advance Directives Code Status Date Activated Date Inactivated Comments Full Code 08/26/2023 10:41 AM 09/03/2023 4:23 PM Code Status Date Activated Date Inactivated Comments Full Code 07/25/2023 9:14 PM 08/05/2023 7:53 PM Full Code 06/26/2023 8:24 PM 06/27/2023 11:31 PM Full Code 06/05/2023 12:32 PM 06/07/2023 4:01 PM Full Code 07/10/2022 6:25 PM 07/10/2022 10:13 PM Care Teams Phone Triage Specialist Relationship Specialty Start Date End Date Marcello Schultz MD PCP - General Breast Medical 11/22/[address] [place] [phone] Keron Tan MD PCP - External Primary Family Practice 11/22/21 Care Provider [address] [place] [phone] Tyler Kenny MD Physician 01/17/[address] [place] [address] [address] [place] [address] Laura Sexton MD Consulting Physician Ophthalmology 07/08/[address] [place] [phone] Yarelis, Consulting Physician Pain Management 08/14/22 MD Miguelito [address] [place] [phone] Delores Oakes PA Physician Machining Engineer Physician Machining Engineer 09/26/[address] [place] [phone] Chuck Thomas MD Consulting Physician Urology 02/04/[address] [place] [phone] Josh Dewey MD Consulting Physician Experimental Treatment 06/25/[address] [place] [phone] Stephon Alejandro MD Consulting Physician Pulmonary Medicine 05/21/[address] [place] [phone] Luis Armando Andrews MD Consulting Physician Radiation Oncology 03/06/[address] [place] [id number]
--- OUTSIDE RECORDS SUMMARY | 2023-09-04 02:38 | XMS REPORT | Continuity of Care Document ---
:1965 Author Organization [facility] t Address [address] [place] [address] Care Team Providers Name Role Phone Omid Walker MD Primary Care Physician LIZET LARA Attending Clinician Unavailable BALBINA LI Attending Clinician Unavailable JOE ROSEN Attending Clinician Unavailable ANASTACIA RAMESH Attending Clinician Unavailable JALIL ALEJANDRO Attending Clinician Unavailable SYSTEM, PROVIDER NOT IN Attending Clinician Unavailable Dago NAVARRO, Abram Gallo Attending Clinician [phone] Santiago NAVARRO, Allegra Attending Clinician Wm King MD Attending Clinician Guillermo NAVARRO PhD, Balbina Attending Clinician KIM GILLESPIE Attending Clinician Unavailable ARIC DEWITT Attending Clinician Unavailable Bao NAVARRO, Tri Villegas Attending Clinician [phone] Koki Eden RN Attending Clinician WM KING Attending Clinician Unavailable Antoine NAVARRO, Marcello Attending Clinician Donahue SOAP DRIER OPERATOR, Debra Randhawa Attending Clinician Jose Miguel NAVARRO, Kim Attending Clinician ALLEGRA HENDERSON Attending Clinician Unavailable Genevieve BHARDWAJN, Sarahi Grady Attending Clinician [phone] René NAVARRO, Syed Attending Clinician Unavailable ABRAM LOZA Attending Clinician Unavailable Kashif SOAP DRIER OPERATOR, Blair Attending Clinician Jose SOAP DRIER OPERATOR, Lizet Attending Clinician Reva SOAP DRIER OPERATOR, Juan Attending Clinician Juan Antonio SOAP DRIER OPERATOR, Jennifer Childs Attending Clinician Whit NAVARRO, Marcella Chow Attending Clinician Destinee Graves RN, Ambika Mejia Attending Clinician Carlos Maier Attending Clinician Sumaya Falcon Attending Clinician Josh Dewey MD Attending Clinician Sivakumar Carroll RN Attending Clinician Vianca Campos APRN Attending Clinician VIANCA CAMPOS Attending Clinician Unavailable Jenniffer Ramon Attending Clinician Unavailable Xiomara Arguelles RN Attending Clinician Vivian Andrade Attending Clinician Joshua Martinez, John H Attending Clinician Unavailable Victorino Dawn DO Attending Clinician Carleen NAVARRO, Ant Brizuela Attending Clinician Jennifer NAVARRO Hong Attending Clinician Silas NAVARRO PhD, Joe Grady Attending Clinician [phone] Raji NAVARRO, Rashel Attending Clinician Brenna Strong MD Attending Clinician Kalpana Olsen APRN Attending Clinician EUNICE BLANCO. Attending Clinician Unavailable MORGAN RAWLS Attending Clinician Unavailable Alba NAVARRO, Eunice Galeano Attending Clinician Amadeo ROCHE, Jt Kearney Attending Clinician Femi TEIXEIRA, Dariel Sifuentes Attending Clinician Analy Pringle MD Attending Clinician JESSICA POLK Attending Clinician Unavailable Gibran Belle BDS Attending Clinician Yarelis NAVARRO, Miguelito Attending Clinician [phone] Joseph NAVARRO, Shirley Attending Clinician Koki Whitney CRNA Attending Clinician Unavailable Savannah Briceno APRN Attending Clinician Naina Rivera APRN Attending Clinician Serg Rod RN Attending Clinician Sharon Martinez RN Attending Clinician Unavailable Ayesha Cason RN Attending Clinician Unavailable Jairo Fraire MD Attending Clinician JENNIFER WEST Attending Clinician Unavailable Stefania Bal RN Attending Clinician [phone] Catrina Guillermo RN Attending Clinician Evelio NAVARRO, Ranjan Durant Attending Clinician Souleymane Ester Olmstead Attending Clinician Nataly Corral Attending Clinician Ever SOAP DRIER OPERATOR, Edis Burrell Attending Clinician Darshan NAVARRO, Laura Attending Clinician Munira SOAP DRIER OPERATOR, Radha Gibbs Attending Clinician Asher SOAP DRIER OPERATOR, Cookie A Attending Clinician COOKIE STERLING A Attending Clinician Unavailable Blanca BANKS, Eri Randhawa Attending Clinician Saleem ROCHE, Nancie Attending Clinician Madelyn NAVARRO, Sarath Mendoza. Attending Clinician Star Kraus MD, Matilda Finnegan Attending Clinician [phone] Dulce NAVARRO, Essie Attending Clinician ESSIE CARDONA Attending Clinician Unavailable Edis LUCIANO Attending Clinician Unavailable Javon NAVARRO, Jalil F Attending Clinician Nancy NAVARRO, Dion Attending Clinician [phone] Monserrat NAVARRO, Elijah Mcgrath Attending Clinician Rosalie NAVARRO, Jose Attending Clinician Leon BHARDWAJN, Amna Grady Attending Clinician Jerica PT, Dayanara L Attending Clinician Martha NAVARRO, Anastacia Attending Clinician Haley NAVARRO, Genny F Attending Clinician [phone] Nikolay ADLER, Bessie Mendoza Attending Clinician Unavailable Serge Solano MD Attending Clinician [phone] MARCELLO SCHULTZ Attending Clinician Unavailable Joesph BROOKS, Soha Pathak Attending Clinician Unavailable Brenna Esparza APRN Attending Clinician Tino Giron MD Attending Clinician Unknown, Attending Attending Clinician Unavailable TINO GIRON Attending Clinician Unavailable Doctor Unassigned, [place] Attending Clinician Unavailable Gurdeep ADLER, Elisa Attending Clinician Unavailable Ashley Villanueva APRN Attending Clinician Star BANKS, Steph M Attending Clinician Unavailable Fouzia Azul Attending Clinician Unavailable ALVARO ARELLANO Attending Clinician Unavailable Natasha Reich Attending Clinician Unavailable Nehemias ADLER, Carlos T Attending Clinician Delores Zafar Attending Clinician Ben NAVARRO, Victorino Attending Clinician Irvin ADLER, Mio T Attending Clinician Unavailable VIVIAN GRANADOS Attending Clinician Unavailable MIGUELITO VINES Attending Clinician Unavailable Dayan Madrid Attending Clinician DAYAN DAI Attending Clinician Unavailable EDU OLIVEIRA Attending Clinician Unavailable CHIKA HIGHTOWER Attending Clinician Unavailable MAITE VILLALPANDO Attending Clinician Unavailable ERIBERTO YOUNGER Attending Clinician Unavailable ALLEGRA HENDERSON Admitting Clinician Unavailable ANT DURANT Admitting Clinician Unavailable ANASTACIA RAMESH Admitting Clinician Unavailable JALIL ALEJANDRO Admitting Clinician Unavailable MATILDA HERRON Admitting Clinician Unavailable DION CRUZ Admitting Clinician Unavailable GILBERT VILLALPANDO Admitting Clinician Unavailable Physician, No Primary or Family Admitting Clinician Unavaila ble Payers Payer Name Policy Type Policy Number Effective Date Expiration Date S [employer] [place] PPO POS [id number] 2022 00:00:00 [facility] [id number] 2020 2022 00:00:00 00:00:00 Problems Condition Condition Condition Status Onset Resolution Last Treating Co mments Source Name Details Category Date Date Treatment Clinician Date Pneumoniti Pneumoniti Disease Active 2022-11 U nivers s s 0-25 ity of 00:00: [place] 00 MD [facility] 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 00:00: [place] mellitus mellitus 00 with with Klaudia galvan hyperglyyair gibbs [facility] Adverse Adverse Disease Active 2022-11 Univers effect of effect of 0-20 ity of glucocorti glucocorti 00:00: [place] xadrea coids and coids and 00 synthetic synthetic Juan rso analogues analogues n [facility] 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 custodial Disease Active 2022-11 Uni vers current current 0-20 ity of use of use of 00:00: [place] systemic systemic 00 steroid steroid Klaudia gibbs [facility] Anxiety Anxiety Disease Active 2022-11 Univers disorder disorder 0-18 ity of due to a due to a 00:00: [place] general general 00 medical medical Andgeremiaso condition condition [facility] Psychiatri Psychiatri Disease Active 2022-11 U aimee c c 0-17 ity of interview interview 00:00: Elisabeth s and and 00 evaluation evaluation An derso [facility] History of History of Disease Active 2022-11 U aimee cancer cancer 0-16 it[place] of metastatic metastatic [place] bone 00 MD Rudolph [facility] Pathologic Pathologic Disease Active 2022-11 U aimee al al 0-15 ity of fracture fracture 00:00: [place] in in 00 neoplastic neoplastic An derso disease, disease, n pelvis and pelvis and Ca ncer femur femur Center Pulmonary Pulmonary Disease Active 2022-11 Overview: Univers infiltrate infiltrate 0-14 Formattin ity of 00:00: g of this [place] 00 note MD might be Klaudia figueroa n from the Cancer original. 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 mineral 9-14 it y of metabolism [place] [facility]ia gibbs [facility] Hyperurice Hyperurice Disease Active U aimee radha radha 9-14 ity of 00:00: [place] 00 MD Klaudia gibbs [facility] Hyperphosp Hyperphosp Disease Active U aimee hatemia hatemia 9-14 ity of 00:00: [place] 00 MD Klaudia gibbs [facility] Hyposmolal Hyposmolal Disease Active U aimee ity and/or ity and/or 9-14 it y of hyponatrem hyponatrem 00:[place] 00 MD [facility] Hip pain Hip pain Disease Active Last Unive rs 8-30 Assessmen ity of 00:00: t & Plan: Subhash morales of this Anderso note n might be Cancer different Center from the original. Xray reveals known bone metastase s but is negative for pathologi c fracture. Continue follow up with oncology team. Hydronephr Hydronephr Disease Active Overview : Univers osis osis 8-24 Formattin ity of 00:00: g of this note MD might be Klaudia different n from the Cancer original. Center Added automatic ally from request for surgery [id number] Dyspnea Dyspnea Disease Active Last Univers 8-17 Assessmen ity of 00:00: t & Plan: [place] Subhash morales of this Anderso note n might be Cancer different Center from the original. Today's PFTs reveal restricti ve lung defect. DLCO is normal. She was unable to perform 6mwt d/t right hip pain. Though I suspect given her cDLCO 116% she would not have desaturat ed to the point of needed supplemen michael oxygen.We have no PFTs prior to the chemical pleurodes is procedure for compariso n.The restricti on may be r/t decreased right lung slide resulting from the chemical pleurodes is.She may have some benefit from RACHELE PRN for help with cough. However, unfortuna tely there are no maintenan ce inhaled therapies available to relieve restricti ve lung disease. Good news is her diffusion capacity is completel y normal. Advised it's okay to continue low impact, low intensity exercise. Bilateral Bilateral Disease Recurre Un tamela swelling swelling nce 8-17 ity of of upper of upper 00:00: [place] limbs limbs 00 MD [facility] Hypothyroi Hypothyroi Disease Recurre Univers dism dism nce 8-17 ity of 00:00: [place] 00 MD [facility] Malignant Malignant Disease Recurre Overview: Univers pleural pleural nce 7-21 Formattin ity o f effusion effusion 00:00: g of this Kavin as 00 note might be Anderso different n from the Cancer original. Center Added automatic ally from request for surgery [id number] Assessmen t & Plan: Formattin g of this note might be different from the original. S/p right thoracent esis x 1 followed by thoracosc opy with talc pleurodes is on 06/05/23 with placement of IPC IPC removal on 06/12/23. Small right loculated effusion on subsequen t imaging not amenable to intervent ion. I had discussio n with Ms. Aleman re the goal of the talc pleurodes is was to seal the space so the metastati c pleural fluid would not continue to accumulat e necessita ting repeat thoracent esis or having an IPC in place for 6 weeks or longer. Unfortuna rach having the procedure was not expected to return her to to her pre diagnosis level of functioni ng and exercise capabilit y. I reviewed the 05/27/23 CT and the 06/27 CT chest with her pointing out the decreased effusion seen on the latter CT. This seemed to be encouragi ng to her. She took a video to share with her father. Metastati c osseous disease possibly further aggravate d by inflammat ion r/t chemical pleurodes is. Pain is being managed with anti inflammat ories and other pain medicatio n as managed by the pain managemen t team. Breast Breast Disease Active [facility] cancer cancer 2-06 ity of 00:00: [place] 00 MD [facility] Hydronephr Hydronephr Disease Active Overview : [facility] osis due osis due 3 Formattin ity of to to 00:00: g of this [place] ureteral ureteral 00 note obstructio obstructio might be Anderso n n different n from the Cancer original. Center Added automatic ally from request for surgery [id number] Estrogen Estrogen Disease Active Unive rs receptor receptor 1-13 ity of positive positive 00:00: [place] status status 00 (ER+) (ER+) [facility] Personal Personal Disease Active Unive rs history of history of 1-11 it y of malignant malignant 00:00[place] neoplasm neoplasm 00 of breast of breast [facility] Secondary Secondary Disease Active Uni vers and and 1-11 ity of unspecifie unspecifie 00:[place] d d 00 malignant malignant Juan rso neoplasm neoplasm n of lymph of lymph Cancer nodes of nodes of Center multiple multiple regions regions Metastatic Metastatic Disease Recurre Univers malignant malignant nce 1- ity of neoplasm neoplasm 00:00: [place] to bone to bone 00 MD Klaudia gibbs [facility] Foot pain, Foot pain, Disease Active 2018-11 M ethodi bilateral bilateral 00:00: Hospita 00 l Postmenopa Postmenopa Disease Active U nivers usal state usal state 04-05 it y of 00:00: [place] 00 MD Klaudia gibbs [facility] Anxiety Anxiety Disease Recurre Univer s nce 04-05 ity of 00:00: [place] 00 MD Klaudia gibbs [facility] Pleural Pleural Disease Resolve 2023-06-26 2023-06-26 Univers effusion effusion d 05-05 00:00:00 20:12:37 it y of 00:00: [place] 00 MD Klaudia gibbs [facility] Allergies, Adverse Reactions, Alerts Allergy Allergy Status Severity Reaction(s) Onset Inactive Treating Comm ents Source Name Type Date Date Clinician AMOXICIL DRUG Active Low Rash 2021- MD MENJIVAR-POT 0-05 Anderso CLAVULAN 00:00: n ATE 00 AMOXICIL DRUG Active Low Rash 2021- MD MENJIVAR-POT 0-05 Anderso CLAVULAN 00:00: n ATE 00 AMOXICIL DRUG Active Low Rash 2021- OTTO-POT 0-05 Anderso CLAVULAN 00:00: n ATE 00 AMOXICIL DRUG Active Low Rash 2021-1 OTTO-POT 0-05 Anderso CLAVULAN 00:00: n ATE 00 AMOXICIL DRUG Active Low Rash 2021-1 OTTO-POT 0-05 Anderso CLAVULAN 00:00: n ATE 00 AMOXICIL DRUG Active Low Rash 2-1 MD MENJIVAR-POT 0-05 Anderso CLAVULAN 00:00: n ATE 00 AMOXICIL DRUG Active Low Rash 2021-1 MD MENJIVAR-POT 0-05 Anderso CLAVULAN 00:00: n ATE 00 AMOXICIL DRUG Active Low Rash 2021-1 MD OTTO-POT 0-05 Anderso CLAVULAN 00:00: n ATE 00 AMOXICIL DRUG Active Low Rash 2022-1 MD OTTO-POT 0-05 Anderso CLAVULAN 00:00: n ATE 00 AMOXICIL DRUG Active Low Rash 2022-1 MD OTTO-POT 0-05 Anderso CLAVULAN 00:00: n ATE 00 AMOXICIL DRUG Active Low Rash 2022-1 MD OTTO-POT 0-05 Anderso CLAVULAN 00:00: n ATE 00 AMOXICIL DRUG Active Low Rash 2022-1 MD OTTO-POT 0-05 Anderso CLAVULAN 00:00: n ATE 00 AMOXICIL DRUG Active Low Rash 2022-1 MD OTTO-POT 0-05 Anderso CLAVULAN 00:00: n ATE 00 AMOXICIL DRUG Active Low Rash 2022-1 MD OTTO-POT 0-05 Anderso CLAVULAN 00:00: n ATE 00 AMOXICIL DRUG Active Low Rash 2022-1 MD OTTO-POT 0-05 Anderso CLAVULAN 00:00: n ATE 00 AMOXICIL DRUG Active Low Rash 2022-1 MD OTTO-POT 0-05 Anderso CLAVULAN 00:00: n ATE 00 AMOXICIL DRUG Active Low Rash 2022-1 MD OTTO-POT 0-05 Anderso CLAVULAN 00:00: n ATE 00 AMOXICIL DRUG Active Low Rash 2022-1 MD OTTO-POT 0-05 Anderso CLAVULAN 00:00: n ATE 00 AMOXICIL DRUG Active Low Rash 2022-1 MD OTTO-POT 0-05 Anderso CLAVULAN 00:00: n ATE 00 AMOXICIL DRUG Active Low Rash 2022-1 MD OTTO-POT 0-05 Anderso CLAVULAN 00:00: n ATE 00 AMOXICIL DRUG Active Low Rash 2022-1 MD OTTO-POT 0-05 Anderso CLAVULAN 00:00: n ATE 00 AMOXICIL DRUG Active Low Rash 2022-1 MD OTTO-POT 0-05 Anderso CLAVULAN 00:00: n ATE 00 AMOXICIL DRUG Active Low Rash 2022-1 MD OTTO-POT 0-05 Anderso CLAVULAN 00:00: n ATE 00 AMOXICIL DRUG Active Low Rash 2022-1 MD OTTO-POT 0-05 Anderso CLAVULAN 00:00: n ATE 00 AMOXICIL DRUG Active Low Rash 2022-1 MD OTTO-POT 0-05 Anderso CLAVULAN 00:00: n ATE 00 AMOXICIL DRUG Active Low Rash 2022-1 MD OTTO-POT 0-05 Anderso CLAVULAN 00:00: n ATE 00 AMOXICIL DRUG Active Low Rash 2022-1 MD OTTO-POT 0-05 Anderso CLAVULAN 00:00: n ATE 00 AMOXICIL DRUG Active Low Rash 2022-1 MD OTTO-POT 0-05 Anderso CLAVULAN 00:00: n ATE 00 AMOXICIL DRUG Active Low Rash 2022-1 MD OTTO-POT 0-05 Anderso CLAVULAN 00:00: n ATE 00 AMOXICIL DRUG Active Low Rash 2022-1 MD OTTO-POT 0-05 Anderso CLAVULAN 00:00: n ATE 00 AMOXICIL DRUG Active Low Rash 2022-1 MD OTTO-POT 0-05 Anderso CLAVULAN 00:00: n ATE 00 AMOXICIL DRUG Active Low Rash 2022-1 MD OTTO-POT 0-05 Anderso CLAVULAN 00:00: n ATE 00 AMOXICIL DRUG Active Low Rash 2022-1 MD OTTO-POT 0-05 Anderso CLAVULAN 00:00: n ATE 00 AMOXICIL DRUG Active Low Rash 2022-1 MD OTTO-POT 0-05 Anderso CLAVULAN 00:00: n ATE 00 AMOXICIL DRUG Active Low Rash 2022-1 MD OTTO-POT 0-05 Anderso CLAVULAN 00:00: n ATE 00 AMOXICIL DRUG Active Low Rash 2022-1 MD OTTO-POT 0-05 Anderso CLAVULAN 00:00: n ATE 00 AMOXICIL DRUG Active Low Rash 2022-1 MD OTTO-POT 0-05 Anderso CLAVULAN 00:00: n ATE 00 AMOXICIL DRUG Active Low Rash 2022-1 MD OTTO-POT 0-05 Anderso CLAVULAN 00:00: n ATE 00 AMOXICIL DRUG Active Low Rash 2022-1 MD OTTO-POT 0-05 Anderso CLAVULAN 00:00: n ATE 00 AMOXICIL DRUG Active Low Rash 2022-1 MD OTTO-POT 0-05 Anderso CLAVULAN 00:00: n ATE 00 AMOXICIL DRUG Active Low Rash 2022-1 MD OTTO-POT 0-05 Anderso CLAVULAN 00:00: n ATE 00 AMOXICIL DRUG Active Low Rash 2022-1 MD OTTO-POT 0-05 Anderso CLAVULAN 00:00: n ATE 00 AMOXICIL DRUG Active Low Rash 2022-1 MD OTTO-POT 0-05 Anderso CLAVULAN 00:00: n ATE 00 AMOXICIL DRUG Active Low Rash 2022-1 MD OTTO-POT 0-05 Anderso CLAVULAN 00:00: n ATE 00 AMOXICIL DRUG Active Low Rash 2022-1 MD OTTO-POT 0-05 Anderso CLAVULAN 00:00: n ATE 00 AMOXICIL DRUG Active Low Rash 2022-1 MD OTTO-POT 0-05 Anderso CLAVULAN 00:00: n ATE 00 AMOXICIL DRUG Active Low Rash 2022-1 MD OTTO-POT 0-05 Anderso CLAVULAN 00:00: n ATE 00 AMOXICIL DRUG Active Low Rash 2022-1 MD OTTO-POT 0-05 Anderso CLAVULAN 00:00: n ATE 00 AMOXICIL DRUG Active Low Rash 2022-1 MD OTTO-POT 0-05 Anderso CLAVULAN 00:00: n ATE 00 AMOXICIL DRUG Active Low Rash 2022-1 MD OTTO-POT 0-05 Anderso CLAVULAN 00:00: n ATE 00 AMOXICIL DRUG Active Low Rash 2022-1 MD OTTO-POT 0-05 Anderso CLAVULAN 00:00: n ATE 00 AMOXICIL DRUG Active Low Rash 2022-1 MD OTTO-POT 0-05 Anderso CLAVULAN 00:00: n ATE 00 AMOXICIL DRUG Active Low Rash 2022-1 MD OTTO-POT 0-05 Anderso CLAVULAN 00:00: n ATE 00 AMOXICIL DRUG Active Low Rash 2022-1 MD OTTO-POT 0-05 Anderso CLAVULAN 00:00: n ATE 00 AMOXICIL DRUG Active Low Rash 2022-1 MD OTTO-POT 0-05 Anderso CLAVULAN 00:00: n ATE 00 AMOXICIL DRUG Active Low Rash 2022-1 MD OTTO-POT 0-05 Anderso CLAVULAN 00:00: n ATE 00 AMOXICIL DRUG Active Low Rash 2022-1 MD OTTO-POT 0-05 Anderso CLAVULAN 00:00: n ATE 00 AMOXICIL DRUG Active Low Rash 2022-1 MD OTTO-POT 0-05 Anderso CLAVULAN 00:00: n ATE 00 AMOXICIL DRUG Active Low Rash 2022-1 MD OTTO-POT 0-05 Anderso CLAVULAN 00:00: n ATE 00 AMOXICIL DRUG Active Low Rash 2022-1 MD OTTO-POT 0-05 Anderso CLAVULAN 00:00: n ATE 00 AMOXICIL DRUG Active Low Rash 2022-1 MD OTTO-POT 0-05 Anderso CLAVULAN 00:00: n ATE 00 AMOXICIL DRUG Active Low Rash 2022-1 MD OTTO-POT 0-05 Anderso CLAVULAN 00:00: n ATE 00 AMOXICIL DRUG Active Low Rash 2022-1 MD OTTO-POT 0-05 Anderso CLAVULAN 00:00: n ATE 00 AMOXICIL DRUG Active Low Rash 2022-1 MD OTTO-POT 0-05 Anderso CLAVULAN 00:00: n ATE 00 AMOXICIL DRUG Active Low Rash 2022-1 MD OTTO-POT 0-05 Anderso CLAVULAN 00:00: n ATE 00 AMOXICIL DRUG Active Low Rash 2022-1 MD OTTO-POT 0-05 Anderso CLAVULAN 00:00: n ATE 00 AMOXICIL DRUG Active Low Rash 2022-1 MD OTTO-POT 0-05 Anderso CLAVULAN 00:00: n ATE 00 AMOXICIL DRUG Active Low Rash 2022-1 MD OTTO-POT 0-05 Anderso CLAVULAN 00:00: n ATE 00 AMOXICIL DRUG Active Low Rash 2022-1 MD OTTO-POT 0-05 Anderso CLAVULAN 00:00: n ATE 00 AMOXICIL DRUG Active Low Rash 2022-1 MD OTTO-POT 0-05 Anderso CLAVULAN 00:00: n ATE 00 AMOXICIL DRUG Active Low Rash 2022-1 MD OTTO-POT 0-05 Anderso CLAVULAN 00:00: n ATE 00 AMOXICIL DRUG Active Low Rash 2022-1 MD OTTO-POT 0-05 Anderso CLAVULAN 00:00: n ATE 00 AMOXICIL DRUG Active Low Rash 2022-1 MD OTTO-POT 0-05 Anderso CLAVULAN 00:00: n ATE 00 AMOXICIL DRUG Active Low Rash 2022-1 MD OTTO-POT 0-05 Anderso CLAVULAN 00:00: n ATE 00 AMOXICIL DRUG Active Low Rash 2022-1 MD OTTO-POT 0-05 Anderso CLAVULAN 00:00: n ATE 00 AMOXICIL DRUG Active Low Rash 2022-1 MD OTTO-POT 0-05 Anderso CLAVULAN 00:00: n ATE 00 AMOXICIL DRUG Active Low Rash 2022-1 MD OTTO-POT 0-05 Anderso CLAVULAN 00:00: n ATE 00 AMOXICIL DRUG Active Low Rash 2022-1 MD OTTO-POT 0-05 Anderso CLAVULAN 00:00: n ATE 00 AMOXICIL DRUG Active Low Rash 2022-1 MD OTTO-POT 0-05 Anderso CLAVULAN 00:00: n ATE 00 AMOXICIL DRUG Active Low Rash 2022-1 MD OTTO-POT 0-05 Anderso CLAVULAN 00:00: n ATE 00 AMOXICIL DRUG Active Low Rash 2022-1 MD OTTO-POT 0-05 Anderso CLAVULAN 00:00: n ATE 00 AMOXICIL DRUG Active Low Rash 2022-1 MD OTTO-POT 0-05 Anderso CLAVULAN 00:00: n ATE 00 AMOXICIL DRUG Active Low Rash 2022-1 MD OTTO-POT 0-05 Anderso CLAVULAN 00:00: n ATE 00 AMOXICIL DRUG Active Low Rash 2022-1 MD OTTO-POT 0-05 Anderso CLAVULAN 00:00: n ATE 00 AMOXICIL DRUG Active Low Rash 2022-1 MD OTTO-POT 0-05 Anderso CLAVULAN 00:00: n ATE 00 AMOXICIL DRUG Active Low Rash 2022-1 MD OTTO-POT 0-05 Anderso CLAVULAN 00:00: n ATE 00 AMOXICIL DRUG Active Low Rash 2022-1 MD OTTO-POT 0-05 Anderso CLAVULAN 00:00: n ATE 00 AMOXICIL DRUG Active Low Rash 2022-1 MD OTTO-POT 0-05 Anderso CLAVULAN 00:00: n ATE 00 AMOXICIL DRUG Active Low Rash 2022-1 MD OTTO-POT 0-05 Anderso CLAVULAN 00:00: n ATE 00 AMOXICIL DRUG Active Low Rash 2022-1 MD OTTO-POT 0-05 Anderso CLAVULAN 00:00: n ATE 00 AMOXICIL DRUG Active Low Rash 2022-1 MD OTTO-POT 0-05 Anderso CLAVULAN 00:00: n ATE 00 AMOXICIL DRUG Active Low Rash 2022-1 MD OTTO-POT 0-05 Anderso CLAVULAN 00:00: n ATE 00 AMOXICIL DRUG Active Low Rash 2022-1 MD OTTO-POT 0-05 Anderso CLAVULAN 00:00: n ATE 00 AMOXICIL DRUG Active Low Rash 2022-1 MD OTTO-POT 0-05 Anderso CLAVULAN 00:00: n ATE 00 AMOXICIL DRUG Active Low Rash 2022-1 MD OTTO-POT 0-05 Anderso CLAVULAN 00:00: n ATE 00 AMOXICIL DRUG Active Low Rash 2022-1 MD OTTO-POT 0-05 Anderso CLAVULAN 00:00: n ATE 00 AMOXICIL DRUG Active Low Rash 2022-1 MD OTTO-POT 0-05 Anderso CLAVULAN 00:00: n ATE 00 AMOXICIL DRUG Active Low Rash 2022-1 MD OTTO-POT 0-05 Anderso CLAVULAN 00:00: n ATE 00 AMOXICIL DRUG Active Low Rash 2022-1 MD OTTO-POT 0-05 Anderso CLAVULAN 00:00: n ATE 00 AMOXICIL DRUG Active Low Rash 2022-1 MD OTTO-POT 0-05 Anderso CLAVULAN 00:00: n ATE 00 AMOXICIL DRUG Active Low Rash 2022-1 MD OTTO-POT 0-05 Anderso CLAVULAN 00:00: n ATE 00 AMOXICIL DRUG Active Low Rash 2022-1 MD OTTO-POT 0-05 Anderso CLAVULAN 00:00: n ATE 00 AMOXICIL DRUG Active Low Rash 2022-1 MD OTTO-POT 0-05 Anderso CLAVULAN 00:00: n ATE 00 AMOXICIL DRUG Active Low Rash 2022-1 MD OTTO-POT 0-05 Anderso CLAVULAN 00:00: n ATE 00 AMOXICIL DRUG Active Low Rash 2022-1 MD OTTO-POT 0-05 Anderso CLAVULAN 00:00: n ATE 00 AMOXICIL DRUG Active Low Rash 2022-1 MD OTTO-POT 0-05 Anderso CLAVULAN 00:00: n ATE 00 AMOXICIL DRUG Active Low Rash 2022-1 MD OTTO-POT 0-05 Anderso CLAVULAN 00:00: n ATE 00 AMOXICIL DRUG Active Low Rash 2022-1 MD OTTO-POT 0-05 Anderso CLAVULAN 00:00: n ATE 00 AMOXICIL DRUG Active Low Rash 2022-1 MD OTTO-POT 0-05 Anderso CLAVULAN 00:00: n ATE 00 AMOXICIL DRUG Active Low Rash 2022-1 MD OTTO-POT 0-05 Anderso CLAVULAN 00:00: n ATE 00 AMOXICIL DRUG Active Low Rash 2022-1 MD OTTO-POT 0-05 Anderso CLAVULAN 00:00: n ATE 00 AMOXICIL DRUG Active Low Rash 2022-1 MD OTTO-POT 0-05 Anderso CLAVULAN 00:00: n ATE 00 AMOXICIL DRUG Active Low Rash 2022-1 MD OTTO-POT 0-05 Anderso CLAVULAN 00:00: n ATE 00 AMOXICIL DRUG Active Low Rash 2022-1 MD OTTO-POT 0-05 [facility] 00:00: n ATE 00 AMOXICIL DRUG Active Low Rash 2022-1 MD [facility] 0-05 [facility] 00:00: n ATE 00 AMOXICIL DRUG Active Low Rash 2022-1 MD [facility] 0-05 [facility] 00:00: n ATE 00 AMOXICIL DRUG Active Low Rash 2022-1 MD [facility] 0-05 [facility] 00:00: n ATE 00 AMOXICIL DRUG Active Low Rash 2022-1 MD [facility] 0-05 [facility] 00:00: n ATE 00 AMOXICIL DRUG Active Low Rash 2022-1 MD [facility] 0-05 [facility] 00:00: n ATE 00 AMOXICIL DRUG Active Low Rash 2022-1 MD [facility] 0-05 [facility] 00:00: n ATE 00 AMOXICIL DRUG Active Low Rash 2022-1 MD [facility] 0-05 [facility] 00:00: n ATE 00 AMOXICIL DRUG Active Low Rash 2022-1 MD [facility] 0-05 [facility] 00:00: n ATE 00 AMOXICIL DRUG Active Low Rash 2022-1 MD [facility] 0-05 [facility] 00:00: n ATE 00 AMOXICIL DRUG Active Low Rash 2022-1 MD [facility] 0-05 [facility] 00:00: n ATE 00 AMOXICIL DRUG Active Low Rash 2022-1 MD [facility] 0-05 [facility] 00:00: n ATE 00 AMOXICIL DRUG Active Low Rash 2022-1 MD [facility] 0-05 [facility] 00:00: n ATE 00 AMOXICIL DRUG Active Low Rash 2022-1 MD [facility] 0-05 [facility] 00:00: n ATE 00 AMOXICIL DRUG Active Low Rash 2022-1 MD [facility] 0-05 [facility] 00:00: n ATE 00 AMOXICIL DRUG Active Low Rash 2022-1 MD [facility] 0-05 [facility] 00:00: n ATE 00 AMOXICIL DRUG Active Low Rash 2022-1 MD [facility] 0-05 [facility] 00:00: n ATE 00 AMOXICIL DRUG Active Low Rash 2022-1 MD [facility] 0-05 [facility] 00:00: n ATE 00 AMOXICIL DRUG Active Low Rash 2022-1 MD [facility] 0-05 [facility] 00:00: n ATE 00 AMOXICIL DRUG Active Low Rash 2022-1 MD [facility] 0-05 [facility] 00:00: n ATE 00 AMOXICIL DRUG Active Low Rash 2022-1 MD [facility] 0-05 [facility] 00:00: n ATE 00 AMOXICIL DRUG Active Low Rash 2022-1 MD [facility] 0-05 [facility] 00:00: n ATE 00 AMOXICIL DRUG Active Low Rash 2022-1 MD [facility] 0-05 [facility] 00:00: n ATE 00 AMOXICIL DRUG Active Low Rash 2022-1 MD [facility] 0-05 [facility] 00:00: n ATE 00 AMOXICIL DRUG Active Low Rash 2022-1 MD [facility] 0-05 [facility] 00:00: n ATE 00 AMOXICIL DRUG Active Low Rash 2022-1 MD [facility] 0-05 [facility] 00:00: n ATE 00 AMOXICIL DRUG Active Low Rash 2022-1 MD [facility] 0-05 [facility] 00:00: n ATE 00 AMOXICIL DRUG Active Low Rash 2022-1 MD [facility] 0-05 [facility] 00:00: n ATE 00 AMOXICIL DRUG Active Low Rash 2022-1 MD [facility] 0-05 [facility] 00:00: n ATE 00 AMOXICIL DRUG Active Low Rash 2022-1 MD [facility] 0-05 [facility] 00:00: n ATE 00 AMOXICIL DRUG Active Low Rash 2022-1 MD [facility] 0-05 [facility] 00:00: n ATE 00 AMOXICIL DRUG Active Low Rash 2022-1 MD [facility] 0-05 [facility] 00:00: n ATE 00 AMOXICIL DRUG Active Low Rash 2022-1 MD [facility] 0-05 [facility] 00:00: n ATE 00 AMOXICIL DRUG Active Low Rash 2022-1 MD [facility] 0-05 [facility] 00:00: n ATE 00 AMOXICIL DRUG Active Low Rash 2022-1 MD [facility] 0-05 [facility] 00:00: n ATE 00 AMOXICIL DRUG Active Low Rash 2022-1 MD [facility] 0-05 [facility] 00:00: n ATE 00 AMOXICIL DRUG Active Low Rash 2022-1 MD [facility] 0-05 [facility] 00:00: n ATE 00 AMOXICIL DRUG Active Low Rash 2022-1 MD [facility] 0-05 [facility] 00:00: n ATE 00 AMOXICIL DRUG Active Low Rash 2022-1 MD [facility] 0-05 [facility] 00:00: n ATE 00 AMOXICIL DRUG Active Low Rash 2022-1 MD [facility] 0-05 [facility] 00:00: n ATE 00 AMOXICIL DRUG Active Low Rash 2022-1 MD [facility] 0-05 [facility] 00:00: n ATE 00 AMOXICIL DRUG Active Low Rash 2022-1 MD [facility] 0-05 [facility] 00:00: n ATE 00 AMOXICIL DRUG Active Low Rash 2022-1 MD [facility] 0-05 [facility] 00:00: n ATE 00 AMOXICIL DRUG Active Low Rash 2022-1 MD [facility] 0-05 [facility] 00:00: n ATE 00 AMOXICIL DRUG Active Low Rash 2022-1 MD [facility] 0-05 [facility] 00:00: n ATE 00 AMOXICIL DRUG Active Low Rash 2022-1 MD [facility] 0-05 [facility] 00:00: n ATE 00 AMOXICIL DRUG Active Low Rash 2022-1 MD [facility] 0-05 [facility] 00:00: n ATE 00 AMOXICIL DRUG Active Low Rash 2022-1 MD [facility] 0-05 [facility] 00:00: n ATE 00 AMOXICIL DRUG Active Low Rash 2022-1 MD [facility] 0-05 [facility] 00:00: n ATE 00 AMOXICIL DRUG Active Low Rash 2022-1 MD [facility] 0-05 [facility] 00:00: n ATE 00 AMOXICIL DRUG Active Low Rash 2022-1 MD [facility] 0-05 [facility] 00:00: n ATE 00 AMOXICIL DRUG Active Low Rash 2022-1 MD [facility] 0-05 [facility] 00:00: n ATE 00 AMOXICIL DRUG Active Low Rash 2022-1 MD [facility] 0-05 [facility] 00:00: n ATE 00 AMOXICIL DRUG Active Low Rash 2022-1 MD [facility] 0-05 [facility] 00:00: n ATE 00 AMOXICIL DRUG Active Low Rash 2022-1 MD [facility] 0-05 [facility] 00:00: n ATE 00 AMOXICIL DRUG Active Low Rash 2022-1 MD [facility] 0-05 [facility] 00:00: n ATE 00 AMOXICIL DRUG Active Low Rash 2022-1 MD [facility] 0-05 [facility] 00:00: n ATE 00 AMOXICIL DRUG Active Low Rash 2022-1 MD [facility] 0-05 [facility] 00:00: n ATE 00 AMOXICIL DRUG Active Low Rash 2022-1 MD [facility] 0-05 [facility] 00:00: n ATE 00 AMOXICIL DRUG Active Low Rash 2022-1 MD [facility] 0-05 [facility] 00:00: n ATE 00 AMOXICIL DRUG Active Low Rash 2022-1 MD [facility] 0-05 [facility] 00:00: n ATE 00 AMOXICIL DRUG Active Low Rash 2022-1 MD [facility] 0-05 [facility] 00:00: n ATE 00 AMOXICIL DRUG Active Low Rash 2022-1 MD [facility] 0-05 [facility] 00:00: n ATE 00 AMOXICIL DRUG Active Low Rash 2022-1 MD [facility] 0-05 [facility] 00:00: n ATE 00 AMOXICIL DRUG Active Low Rash 2022-1 MD [facility] 0-05 [facility] 00:00: n ATE 00 AMOXICIL DRUG Active Low Rash 2022-1 MD [facility] 0-05 [facility] 00:00: n ATE 00 AMOXICIL DRUG Active Low Rash 2022-1 MD [facility] 0-05 [facility] 00:00: n ATE 00 AMOXICIL DRUG Active Low Rash 2022-1 MD [facility] 0-05 [facility] 00:00: n ATE 00 AMOXICIL DRUG Active Low Rash 2022-1 MD [facility] 0-05 [facility] 00:00: n ATE 00 AMOXICIL DRUG Active Low Rash 2022-1 MD [facility] 0-05 [facility] 00:00: n ATE 00 AMOXICIL DRUG Active Low Rash 2022-1 MD [facility] 0-05 [facility] 00:00: n ATE 00 AMOXICIL DRUG Active Low Rash 2022-1 MD [facility] 0-05 [facility] 00:00: n ATE 00 AMOXICIL DRUG Active Low Rash 2022-1 MD [facility] 0-05 [facility] 00:00: n ATE 00 AMOXICIL DRUG Active Low Rash 2022-1 MD [facility] 0-05 [facility] 00:00: n ATE 00 AMOXICIL DRUG Active Low Rash 2022-1 MD [facility] 0-05 [facility] 00:00: n ATE 00 AMOXICIL DRUG Active Low Rash 2022-1 MD [facility] 0-05 [facility] 00:00: n ATE 00 AMOXICIL DRUG Active Low Rash 2022-1 MD [facility] 0-05 [facility] 00:00: n ATE 00 AMOXICIL DRUG Active Low Rash 2022-1 MD [facility] 0-05 [facility] 00:00: n ATE 00 AMOXICIL DRUG Active Low Rash 2022-1 MD [facility] 0-05 [facility] 00:00: n ATE 00 AMOXICIL DRUG Active Low Rash 2022-1 MD [facility] 0-05 [facility] 00:00: n ATE 00 AMOXICIL DRUG Active Low Rash 2022-1 MD [facility] 0-05 [facility] 00:00: n ATE 00 AMOXICIL DRUG Active Low Rash 2022-1 MD [facility] 0-05 [facility] 00:00: n ATE 00 AMOXICIL DRUG Active Low Rash 2022-1 MD [facility] 0-05 [facility] 00:00: n ATE 00 AMOXICIL DRUG Active Low Rash 2022-1 MD [facility] 0-05 [facility] 00:00: n ATE 00 AMOXICIL DRUG Active Low Rash 2022-1 MD [facility] 0-05 [facility] 00:00: n ATE 00 AMOXICIL DRUG Active Low Rash 2022-1 MD [facility] 0-05 [facility] 00:00: n ATE 00 AMOXICIL DRUG Active Low Rash 2022-1 MD [facility] 0-05 [facility] 00:00: n ATE 00 AMOXICIL DRUG Active Low Rash 2022-1 MD [facility] 0-05 [facility] 00:00: n ATE 00 AMOXICIL DRUG Active Low Rash 2022-1 MD [facility] 0-05 [facility] 00:00: n ATE 00 AMOXICIL DRUG Active Low Rash 2022-1 MD [facility] 0-05 [facility] 00:00: n ATE 00 AMOXICIL DRUG Active Low Rash 2022-1 MD [facility] 0-05 [facility] 00:00: n ATE 00 AMOXICIL DRUG Active Low Rash 2022-1 MD [facility] 0-05 [facility] 00:00: n ATE 00 AMOXICIL DRUG Active Low Rash 2022-1 MD [facility] 0-05 [facility] 00:00: n ATE 00 AMOXICIL DRUG Active Low Rash 2022-1 MD [facility] 0-05 [facility] 00:00: n ATE 00 AMOXICIL DRUG Active Low Rash 2022-1 MD [facility] 0-05 [facility] 00:00: n ATE 00 AMOXICIL DRUG Active Low Rash 2022-1 MD [facility] 0-05 [facility] 00:00: n ATE 00 AMOXICIL DRUG Active Low Rash 2022-1 MD [facility] 0-05 [facility] 00:00: n ATE 00 AMOXICIL DRUG Active Low Rash 2022-1 MD [facility] 0-05 [facility] 00:00: n ATE 00 AMOXICIL DRUG Active Low Rash 2022-1 MD [facility] 0-05 [facility] 00:00: n ATE 00 AMOXICIL DRUG Active Low Rash 2022-1 MD [facility] 0-05 [facility] 00:00: n ATE 00 AMOXICIL DRUG Active Low Rash 2022-1 MD [facility] 0-05 [facility] 00:00: n ATE 00 AMOXICIL DRUG Active Low Rash 2022-1 MD [facility] 0-05 [facility] 00:00: n ATE 00 AMOXICIL DRUG Active Low Rash 2022-1 MD [facility] 0-05 [facility] 00:00: n ATE 00 AMOXICIL DRUG Active Low Rash 2022-1 MD [facility] 0-05 [facility] 00:00: n ATE 00 AMOXICIL DRUG Active Low Rash 2022-1 MD [facility] 0-05 [facility] 00:00: n ATE 00 AMOXICIL DRUG Active Low Rash 2022-1 MD [facility] 0-05 [facility] 00:00: n ATE 00 AMOXICIL DRUG Active Low Rash 2022-1 MD [facility] 0-05 [facility] 00:00: n ATE 00 AMOXICIL DRUG Active Low Rash 2022-1 MD [facility] 0-05 [facility] 00:00: n ATE 00 AMOXICIL DRUG Active Low Rash 2022-1 MD [facility] 0-05 [facility] 00:00: n ATE 00 AMOXICIL DRUG Active Low Rash 2022-1 MD [facility] 0-05 [facility] 00:00: n ATE 00 AMOXICIL DRUG Active Low Rash 2022-1 MD [facility] 0-05 [facility] 00:00: n ATE 00 AMOXICIL DRUG Active Low Rash 2022-1 MD [facility] 0-05 [facility] 00:00: n ATE 00 AMOXICIL DRUG Active Low Rash 2022-1 MD [facility] 0-05 [facility] 00:00: n ATE 00 AMOXICIL DRUG Active Low Rash 2022-1 MD [facility] 0-05 [facility] 00:00: n ATE 00 AMOXICIL DRUG Active Low Rash 2022-1 MD [facility] 0-05 [facility] 00:00: n ATE 00 AMOXICIL DRUG Active Low Rash 2022-1 MD [facility] 0-05 [facility] 00:00: n ATE 00 AMOXICIL DRUG Active Low Rash 2022-1 MD [facility] 0-05 [facility] 00:00: n ATE 00 AMOXICIL DRUG Active Low Rash 2022-1 MD [facility] 0-05 [facility] 00:00: n ATE 00 AMOXICIL DRUG Active Low Rash 2022-1 MD [facility] 0-05 [facility] 00:00: n ATE 00 AMOXICIL DRUG Active Low Rash 2022-1 MD [facility] 0-05 [facility] 00:00: n ATE 00 AMOXICIL DRUG Active Low Rash 2022-1 MD [facility] 0-05 [facility] 00:00: n ATE 00 AMOXICIL DRUG Active Low Rash 2022-1 MD [facility] 0-05 [facility] 00:00: n ATE 00 AMOXICIL DRUG Active Low Rash 2022-1 MD [facility] 0-05 [facility] 00:00: n ATE 00 AMOXICIL DRUG Active Low Rash 2022-1 MD [facility] 0-05 [facility] 00:00: n ATE 00 AMOXICIL DRUG Active Low Rash 2022-1 MD [facility] 0-05 [facility] 00:00: n ATE 00 AMOXICIL DRUG Active Low Rash 2022-1 MD [facility] 0-05 [facility] 00:00: n ATE 00 AMOXICIL DRUG Active Low Rash 2022-1 MD [facility] 0-05 [facility] 00:00: n ATE 00 AMOXICIL DRUG Active Low Rash 2022-1 MD [facility] 0-05 [facility] 00:00: n ATE 00 AMOXICIL DRUG Active Low Rash 2022-1 MD [facility] 0-05 [facility] 00:00: n ATE 00 AMOXICIL DRUG Active Low Rash 2022-1 MD [facility] 0-05 [facility] 00:00: n ATE 00 AMOXICIL DRUG Active Low Rash 2022-1 MD [facility] 0-05 [facility] 00:00: n ATE 00 AMOXICIL DRUG Active Low Rash 2022-1 MD [facility] 0-05 [facility] 00:00: n ATE 00 AMOXICIL DRUG Active Low Rash 2022-1 MD [facility] 0-05 [facility] 00:00: n ATE 00 AMOXICIL DRUG Active Low Rash 2022-1 MD [facility] 0-05 [facility] 00:00: n ATE 00 AMOXICIL DRUG Active Low Rash 2022-1 MD [facility] 0-05 [facility] 00:00: n ATE 00 AMOXICIL DRUG Active Low Rash 2022-1 MD [facility] 0-05 [facility] 00:00: n ATE 00 AMOXICIL DRUG Active Low Rash 2022-1 MD [facility] 0-05 [facility] 00:00: n ATE 00 AMOXICIL DRUG Active Low Rash 2022-1 MD [facility] 0-05 [facility] 00:00: n ATE 00 AMOXICIL DRUG Active Low Rash 2022-1 MD [facility] 0-05 [facility] 00:00: n ATE 00 AMOXICIL DRUG Active Low Rash 2022-1 MD [facility] 0-05 [facility] 00:00: n ATE 00 AMOXICIL DRUG Active Low Rash 2022-1 MD [facility] 0-05 [facility] 00:00: n ATE 00 AMOXICIL DRUG Active Low Rash 2022-1 MD [facility] 0-05 [facility] 00:00: n ATE 00 AMOXICIL DRUG Active Low Rash 2022-1 MD [facility] 0-05 [facility] 00:00: n ATE 00 AMOXICIL DRUG Active Low Rash 2022-1 MD [facility] 0-05 [facility] 00:00: n ATE 00 AMOXICIL DRUG Active Low Rash 2022-1 MD [facility] 0-05 [facility] 00:00: n ATE 00 AMOXICIL DRUG Active Low Rash 2022-1 MD [facility] 0-05 [facility] 00:00: n ATE 00 AMOXICIL DRUG Active Low Rash 2022-1 MD [facility] 0-05 [facility] 00:00: n ATE 00 AMOXICIL DRUG Active Low Rash 2022-1 MD [facility] 0-05 [facility] 00:00: n ATE 00 AMOXICIL DRUG Active Low Rash 2022-1 MD [facility] 0-05 [facility] 00:00: n ATE 00 AMOXICIL DRUG Active Low Rash 2022-1 MD [facility] 0-05 [facility] 00:00: n ATE 00 AMOXICIL DRUG Active Low Rash 2022-1 MD [facility] 0-05 [facility] 00:00: n ATE 00 AMOXICIL DRUG Active Low Rash 2022-1 MD [facility] 0-05 [facility] 00:00: n ATE 00 AMOXICIL DRUG Active Low Rash 2022-1 MD [facility] 0-05 [facility] 00:00: n ATE 00 AMOXICIL DRUG Active Low Rash 2022-1 MD [facility] 0-05 [facility] 00:00: n ATE 00 AMOXICIL DRUG Active Low Rash 2022-1 MD [facility] 0-05 [facility] 00:00: n ATE 00 AMOXICIL DRUG Active Low Rash 2022-1 MD [facility] 0-05 [facility] 00:00: n ATE 00 AMOXICIL DRUG Active Low Rash 2022-1 MD [facility] 0-05 [facility] 00:00: n ATE 00 AMOXICIL DRUG Active Low Rash 2022-1 MD [facility] 0-05 [facility] 00:00: n ATE 00 AMOXICIL DRUG Active Low Rash 2022-1 MD [facility]OT 0-05 [facility] 00:00: n ATE 00 AMOXICIL DRUG Active Low Rash 2022-1 MD [facility] 0-05 [facility] 00:00: n ATE 00 AMOXICIL DRUG Active Low Rash 2022-1 MD [facility]OT 0-05 [facility] 00:00: n ATE 00 AMOXICIL DRUG Active Low Rash 2022-1 MD [facility]POT 0-05 [facility] 00:00: n ATE 00 AMOXICIL DRUG Active Low Rash 2022-1 MD O[facility]OT 0-05 [facility] 00:00: n ATE 00 AMOXICIL DRUG Active Low Rash 2022-1 MD O[facility]OT 0-05 [facility] 00:00: n ATE 00 AMOXICIL DRUG Active Low Rash 2022-1 MD [facility] 0-05 [facility] 00:00: n ATE 00 AMOXICIL DRUG Active Low Rash 2022-1 MD [facility] 0-05 [facility] 00:00: n ATE 00 AMOXICIL DRUG Active Low Rash 2022-1 MD [facility] 0-05 [facility] 00:00: n ATE 00 AMOXICIL DRUG Active Low Rash 2022-1 MD [facility]OT 0-05 [facility] 00:00: n ATE 00 AMOXICIL DRUG Active Low Rash 2022-1 MD [facility] 0-05 [facility] 00:00: n ATE 00 AMOXICIL DRUG Active Low Rash 2022-1 MD [facility] 0-05 [facility] 00:00: n ATE 00 AMOXICIL DRUG Active Low Rash 2022-1 MD [facility]OT 0-05 [facility] 00:00: n ATE 00 AMOXICIL DRUG Active Low Rash 2022-1 MD O[facility]OT 0-05 [facility] 00:00: n ATE 00 AMOXICIL DRUG Active Low Rash 2022-1 MD O[facility]OT 0-05 [facility] 00:00: n ATE 00 AMOXICIL DRUG Active Low Rash 2022-1 MD [facility]OT 0-05 [facility] 00:00: n ATE 00 AMOXICIL DRUG Active Low Rash 2022-1 MD O[facility]OT 0-05 [facility] 00:00: n ATE 00 AMOXICIL DRUG Active Low Rash 2022-1 MD O[facility]POT 0-05 [facility] 00:00: n ATE 00 AMOXICIL DRUG Active Low Rash 2022-1 MD O[facility]OT 0-05 [facility] 00:00: n ATE 00 AMOXICIL DRUG Active Low Rash 2022-1 MD O[facility]POT 0-05 [facility] 00:00: n ATE 00 AMOXICIL DRUG Active Low Rash 2022-1 MD O[facility]OT 0-05 [facility] 00:00: n ATE 00 AMOXICIL DRUG Active Low Rash 2022-1 MD [facility]OT 0-05 [facility] 00:00: n ATE 00 AMOXICIL DRUG Active Low Rash 2022-1 MD O[facility]POT 0-05 [facility] 00:00: n ATE 00 AMOXICIL DRUG Active Low Rash 2022-1 MD O[facility]POT 0-05 [facility] 00:00: n ATE 00 AMOXICIL DRUG Active Low Rash 2022-1 MD O[facility]POT 0-05 [facility] 00:00: n ATE 00 AMOXICIL DRUG Active Low Rash 2022-1 MD O[facility]POT 0-05 [facility] 00:00: n ATE 00 AMOXICIL DRUG Active Low Rash 2022-1 MD O[facility]O-POT 0-05 [facility] 00:00: n ATE 00 AMOXICIL DRUG Active Low Rash 2022-1 MD O[facility]O-POT 0-05 [facility] 00:00: n ATE 00 AMOXICIL DRUG Active Low Rash 2022-1 MD O[facility]O-POT 0-05 [facility] 00:00: n ATE 00 AMOXICIL DRUG Active Low Rash 2022-1 MD O[facility]O-POT 0-05 [facility] 00:00: n ATE 00 AMOXICIL DRUG Active Low Rash 2022-1 MD OTTO-POT 0-05 [facility] 00:00: n ATE 00 AMOXICIL DRUG Active Low Rash 2022-1 MD O[facility]POT 0-05 [facility] 00:00: n ATE 00 AMOXICIL DRUG Active Low Rash 2022-1 MD OTTO[facility]POT 0-05 [facility] 00:00: n ATE 00 AMOXICIL DRUG Active Low Rash 2022-1 MD OTTO-POT 0-05 [facility] 00:00: n ATE 00 AMOXICIL DRUG Active Low Rash 2022-1 MD O[facility]O-POT 0-05 [facility] 00:00: n ATE 00 AMOXICIL DRUG Active Low Rash 2022-1 MD OTTO-POT 0-05 [facility] 00:00: n ATE 00 AMOXICIL DRUG Active Low Rash 2022-1 MD OTTO-POT 0-05 [facility] 00:00: n ATE 00 AMOXICIL DRUG Active Low Rash 2022-1 MD OTTO-POT 0-05 [facility] 00:00: n ATE 00 AMOXICIL DRUG Active Low Rash 2022-1 MD OTTO-POT 0-05 [facility] 00:00: n ATE 00 AMOXICIL DRUG Active Low Rash 2022-1 MD OTTO-POT 0-05 [facility] 00:00: n ATE 00 AMOXICIL DRUG Active Low Rash 2022-1 MD OTTO-POT 0-05 [facility] 00:00: n ATE 00 AMOXICIL DRUG Active Low Rash 2022-1 MD O[facility]O-POT 0-05 [facility] 00:00: n ATE 00 AMOXICIL DRUG Active Low Rash 2022-1 MD OTTO-POT 0-05 [facility] 00:00: n ATE 00 AMOXICIL DRUG Active Low Rash 2022-1 MD OTTO-POT 0-05 [facility] 00:00: n ATE 00 AMOXICIL DRUG Active Low Rash 2022-1 MD OTTO-POT 0-05 [facility] 00:00: n ATE 00 AMOXICIL DRUG Active Low Rash 2022-1 MD OTTO-POT 0-05 [facility] 00:00: n ATE 00 HYDROCOD DRUG Active Low Other 2022-0 MD ONE-ACET 3-28 [facility] 00:00: n N 00 HYDROCOD DRUG Active Low Other 2022-0 MD ONE-ACET 3-28 [facility] 00:00: n N 00 HYDROCOD DRUG Active Low Other 2022-0 MD ONE-ACET 3-28 [facility] AMINOP[facility] 00:00: n N 00 HYDROCOD DRUG Active Low Other 2022-0 MD ONE-ACET 3-28 [facility] AMINOPHE 00:00: n N 00 HYDROCOD DRUG Active Low Other 2022-0 MD ONE-ACET 3-28 [facility] AMINOPHE 00:00: n N 00 HYDROCOD DRUG Active Low Other 2022-0 MD ONE-ACET 3-28 [facility] AMINOP[facility] 00:00: n N 00 HYDROCOD DRUG Active Low Other 2022-0 MD ONE-ACET 3-28 [facility] AMINOPHE 00:00: n N 00 HYDROCOD DRUG Active Low Other 2022-0 MD ONE-ACET 3-28 [facility] AMINOPHE 00:00: n N 00 HYDROCOD DRUG Active Low Other 2022-0 MD ONE-ACET 3-28 [facility] AMINOPHE 00:00: n N 00 HYDROCOD DRUG Active Low Other 2022-0 MD ONE-ACET 3-28 [facility] AMINOPHE 00:00: n N 00 HYDROCOD DRUG Active Low Other 2022-0 MD ONE-ACET 3-28 [facility] AMINOPHE 00:00: n N 00 HYDROCOD DRUG Active Low Other 2022-0 MD ONE-ACET 3-28 [facility] AMINOPHE 00:00: n N 00 HYDROCOD DRUG Active Low Other 2022-0 MD ONE-ACET 3-28 [facility] AMINOPHE 00:00: n N 00 HYDROCOD DRUG Active Low Other 2022-0 MD ONE-ACET 3-28 [facility] AMINOPHE 00:00: n N 00 HYDROCOD DRUG Active Low Other 2022-0 MD ONE-ACET 3-28 [facility] AMINOPHE 00:00: n N 00 HYDROCOD DRUG Active Low Other 2022-0 MD ONE-ACET 3-28 [facility] AMINOPHE 00:00: n N 00 HYDROCOD DRUG Active Low Other 2022-0 MD ONE-ACET 3-28 Anderso AMINOPHE 00:00: n N 00 HYDROCOD DRUG Active Low Other 2022-0 MD ONE-ACET 3-28 Anderso AMINOPHE 00:00: n N 00 HYDROCOD DRUG Active Low Other 2022-0 MD ONE-ACET 3-28 Anderso AMINOPHE 00:00: n N 00 HYDROCOD DRUG Active Low Other 2022-0 MD ONE-ACET 3-28 Anderso AMINOPHE 00:00: n N 00 HYDROCOD DRUG Active Low Other 2022-0 MD ONE-ACET 3-28 Anderso AMINOPHE 00:00: n N 00 HYDROCOD DRUG Active Low Other 2022-0 MD ONE-ACET 3-28 Anderso AMINOP[facility] 00:00: n N 00 HYDROCOD DRUG Active Low Other 2022-0 MD ONE-ACET 3-28 Anderso AMINOP[facility] 00:00: n N 00 HYDROCOD DRUG Active Low Other 2022-0 MD ONE-ACET 3-28 Anderso AMINOP[facility] 00:00: n N 00 HYDROCOD DRUG Active Low Other 2022-0 MD ONE-ACET 3-28 Anderso AMINOP[facility] 00:00: n N 00 HYDROCOD DRUG Active Low Other 2022-0 MD ONE-ACET 3-28 Anderso AMINOP[facility] 00:00: n N 00 HYDROCOD DRUG Active Low Other 2022-0 MD ONE-ACET 3-28 Anderso AMINOP[facility] 00:00: n N 00 HYDROCOD DRUG Active Low Other 2022-0 MD ONE-ACET 3-28 Anderso AMINOPHE 00:00: n N 00 HYDROCOD DRUG Active Low Other 2022-0 MD ONE-ACET 3-28 Anderso AMINOP[facility] 00:00: n N 00 HYDROCOD DRUG Active Low Other 2022-0 MD ONE-ACET 3-28 Anderso AMINOP[facility] 00:00: n N 00 HYDROCOD DRUG Active Low Other 2022-0 MD ONE-ACET 3-28 Anderso AMINOP[facility] 00:00: n N 00 HYDROCOD DRUG Active Low Other 2022-0 MD ONE-ACET 3-28 Anderso AMINOP[facility] 00:00: n N 00 HYDROCOD DRUG Active Low Other 2022-0 MD ONE-ACET 3-28 Anderso AMINOP[facility] 00:00: n N 00 HYDROCOD DRUG Active Low Other 2022-0 MD ONE-ACET 3-28 Anderso AMIN[facility] 00:00: n N 00 HYDROCOD DRUG Active Low Other 2022-0 MD ONE-ACET 3-28 Anderso AMINOP[facility] 00:00: n N 00 HYDROCOD DRUG Active Low Other 2022-0 MD ONE-ACET 3-28 Anderso AMINOP[facility] 00:00: n N 00 HYDROCOD DRUG Active Low Other 2022-0 MD ONE-ACET 3-28 Anderso AMINOPHE 00:00: n N 00 HYDROCOD DRUG Active Low Other 2022-0 MD ONE-ACET 3-28 Anderso AMINOPHE 00:00: n N 00 HYDROCOD DRUG Active Low Other 2022-0 MD ONE-ACET 3-28 Anderso AMINOP[facility] 00:00: n N 00 HYDROCOD DRUG Active Low Other 2022-0 MD ONE-ACET 3-28 Anderso AMIN[facility] 00:00: n N 00 HYDROCOD DRUG Active Low Other 2022-0 MD ONE-ACET 3-28 Anderso AMIN[facility] 00:00: n N 00 HYDROCOD DRUG Active Low Other 2022-0 MD ONE-ACET 3-28 Anderso AMINOP[facility] 00:00: n N 00 HYDROCOD DRUG Active Low Other 2022-0 MD ONE-ACET 3-28 Anderso AMINOP[facility] 00:00: n N 00 HYDROCOD DRUG Active Low Other 2022-0 MD ONE-ACET 3-28 Anderso AMINOP[facility] 00:00: n N 00 HYDROCOD DRUG Active Low Other 2022-0 MD ONE-ACET 3-28 Anderso AMINOP[facility] 00:00: n N 00 HYDROCOD DRUG Active Low Other 2022-0 MD ONE-ACET 3-28 Anderso AMINOPHE 00:00: n N 00 HYDROCOD DRUG Active Low Other 2022-0 MD ONE-ACET 3-28 Anderso AMIN[facility] 00:00: n N 00 HYDROCOD DRUG Active Low Other 2022-0 MD ONE-ACET 3-28 Anderso AMIN[facility] 00:00: n N 00 HYDROCOD DRUG Active Low Other 2022-0 MD ONE-ACET 3-28 Anderso AMINOP[facility] 00:00: n N 00 HYDROCOD DRUG Active Low Other 2022-0 MD ONE-ACET 3-28 Anderso AMINOP[facility] 00:00: n N 00 HYDROCOD DRUG Active Low Other 2022-0 MD ONE-ACET 3-28 Anderso AMIN[facility] 00:00: n N 00 HYDROCOD DRUG Active Low Other 2022-0 MD ONE-ACET 3-28 Anderso AMIN[facility] 00:00: n N 00 HYDROCOD DRUG Active Low Other 2022-0 MD ONE-ACET 3-28 Anderso AMIN[facility] 00:00: n N 00 HYDROCOD DRUG Active Low Other 2022-0 MD ONE-ACET 3-28 Anderso AMIN[facility] 00:00: n N 00 HYDROCOD DRUG Active Low Other 2022-0 MD ONE-ACET 3-28 Anderso AMIN[facility] 00:00: n N 00 HYDROCOD DRUG Active Low Other 2022-0 MD ONE-ACET 3-28 Anderso AMIN[facility] 00:00: n N 00 HYDROCOD DRUG Active Low Other 2022-0 MD ONE-ACET 3-28 Anderso AMIN[facility] 00:00: n N 00 HYDROCOD DRUG Active Low Other 2022-0 MD ONE-ACET 3-28 Anderso AMINOP[facility] 00:00: n N 00 HYDROCOD DRUG Active Low Other 2022-0 MD ONE-ACET 3-28 Anderso AMINOP[facility] 00:00: n N 00 HYDROCOD DRUG Active Low Other 2022-0 MD ONE-ACET 3-28 Anderso AMINOP[facility] 00:00: n N 00 HYDROCOD DRUG Active Low Other 2022-0 MD ONE-ACET 3-28 Anderso AMINOPHE 00:00: n N 00 HYDROCOD DRUG Active Low Other 2022-0 MD ONE-ACET 3-28 Anderso AMINOPHE 00:00: n N 00 HYDROCOD DRUG Active Low Other 2022-0 MD ONE-ACET 3-28 Anderso AMINOP[facility] 00:00: n N 00 HYDROCOD DRUG Active Low Other 2022-0 MD ONE-ACET 3-28 Anderso AMINOP[facility] 00:00: n N 00 HYDROCOD DRUG Active Low Other 2022-0 MD ONE-ACET 3-28 Anderso AMINOP[facility] 00:00: n N 00 HYDROCOD DRUG Active Low Other 2022-0 MD ONE-ACET 3-28 Anderso AMINOP[facility] 00:00: n N 00 HYDROCOD DRUG Active Low Other 2022-0 MD ONE-ACET 3-28 Anderso AMINOPHE 00:00: n N 00 HYDROCOD DRUG Active Low Other 2022-0 MD ONE-ACET 3-28 Anderso AMINOP[facility] 00:00: n N 00 HYDROCOD DRUG Active Low Other 2022-0 MD ONE-ACET 3-28 Anderso AMINOP[facility] 00:00: n N 00 HYDROCOD DRUG Active Low Other 2022-0 MD ONE-ACET 3-28 Anderso AMINOP[facility] 00:00: n N 00 HYDROCOD DRUG Active Low Other 2022-0 MD ONE-ACET 3-28 Anderso AMINOP[facility] 00:00: n N 00 HYDROCOD DRUG Active Low Other 2022-0 MD ONE-ACET 3-28 Anderso AMINOP[facility] 00:00: n N 00 HYDROCOD DRUG Active Low Other 2022-0 MD ONE-ACET 3-28 Anderso AMINOP[facility] 00:00: n N 00 HYDROCOD DRUG Active Low Other 2022-0 MD ONE-ACET 3-28 [facility] 00:00: n N 00 HYDROCOD DRUG Active Low Other 2022-0 MD ONE-ACET 3-28 [facility] 00:00: n N 00 HYDROCOD DRUG Active Low Other 2022-0 MD ONE-ACET 3-28 [facility] 00:00: n N 00 HYDROCOD DRUG Active Low Other 2022-0 MD ONE-ACET 3-28 [facility] 00:00: n N 00 HYDROCOD DRUG Active Low Other 2022-0 MD ONE-ACET 3-28 [facility] 00:00: n N 00 HYDROCOD DRUG Active Low Other 2022-0 MD ONE-ACET 3-28 [facility] 00:00: n N 00 HYDROCOD DRUG Active Low Other 2022-0 MD ONE-ACET 3-28 [facility] 00:00: n N 00 HYDROCOD DRUG Active Low Other 2022-0 MD ONE-ACET 3-28 [facility] 00:00: n N 00 HYDROCOD DRUG Active Low Other 2022-0 MD ONE-ACET 3-28 [facility] 00:00: n N 00 HYDROCOD DRUG Active Low Other 2022-0 MD ONE-ACET 3-28 [facility] 00:00: n N 00 HYDROCOD DRUG Active Low Other 2022-0 MD ONE-ACET 3-28 [facility] 00:00: n N 00 HYDROCOD DRUG Active Low Other 2022-0 MD ONE-ACET 3-28 [facility] 00:00: n N 00 HYDROCOD DRUG Active Low Other 2022-0 MD ONE-ACET 3-28 [facility] 00:00: n N 00 HYDROCOD DRUG Active Low Other 2022-0 MD ONE-ACET 3-28 [facility] 00:00: n N 00 HYDROCOD DRUG Active Low Other 2022-0 MD ONE-ACET 3-28 [facility] 00:00: n N 00 HYDROCOD DRUG Active Low Other 2022-0 MD ONE-ACET 3-28 [facility] 00:00: n N 00 HYDROCOD DRUG Active Low Other 2022-0 MD ONE-ACET 3-28 [facility] 00:00: n N 00 HYDROCOD DRUG Active Low Other 2022-0 MD ONE-ACET 3-28 [facility] 00:00: n N 00 HYDROCOD DRUG Active Low Other 2022-0 MD ONE-ACET 3-28 [facility] 00:00: n N 00 HYDROCOD DRUG Active Low Other 2022-0 MD ONE-ACET 3-28 [facility] 00:00: n N 00 HYDROCOD DRUG Active Low Other 2022-0 MD ONE-ACET 3-28 [facility] 00:00: n N 00 HYDROCOD DRUG Active Low Other 2022-0 MD ONE-ACET 3-28 [facility] 00:00: n N 00 HYDROCOD DRUG Active Low Other 2022-0 MD ONE-ACET 3-28 [facility] 00:00: n N 00 HYDROCOD DRUG Active Low Other 2022-0 MD ONE-ACET 3-28 [facility] 00:00: n N 00 HYDROCOD DRUG Active Low Other 2022-0 MD ONE-ACET 3-28 [facility] 00:00: n N 00 HYDROCOD DRUG Active Low Other 2022-0 MD ONE-ACET 3-28 [facility] 00:00: n N 00 HYDROCOD DRUG Active Low Other 2022-0 MD ONE-ACET 3-28 [facility] 00:00: n N 00 HYDROCOD DRUG Active Low Other 2022-0 MD ONE-ACET 3-28 [facility] 00:00: n N 00 HYDROCOD DRUG Active Low Other 2022-0 MD ONE-ACET 3-28 [facility] 00:00: n N 00 HYDROCOD DRUG Active Low Other 2022-0 MD ONE-ACET 3-28 [facility] 00:00: n N 00 HYDROCOD DRUG Active Low Other 2022-0 MD ONE-ACET 3-28 [facility] 00:00: n N 00 HYDROCOD DRUG Active Low Other 2022-0 MD ONE-ACET 3-28 [facility] 00:00: n N 00 HYDROCOD DRUG Active Low Other 2022-0 MD ONE-ACET 3-28 [facility] 00:00: n N 00 HYDROCOD DRUG Active Low Other 2022-0 MD ONE-ACET 3-28 [facility] 00:00: n N 00 HYDROCOD DRUG Active Low Other 2022-0 MD ONE-ACET 3-28 [facility] 00:00: n N 00 HYDROCOD DRUG Active Low Other 2022-0 MD ONE-ACET 3-28 [facility] 00:00: n N 00 HYDROCOD DRUG Active Low Other 2022-0 MD ONE-ACET 3-28 [facility] 00:00: n N 00 HYDROCOD DRUG Active Low Other 2022-0 MD ONE-ACET 3-28 [facility] 00:00: n N 00 HYDROCOD DRUG Active Low Other 2022-0 MD ONE-ACET 3-28 [facility] 00:00: n N 00 HYDROCOD DRUG Active Low Other 2022-0 MD ONE-ACET 3-28 [facility] 00:00: n N 00 HYDROCOD DRUG Active Low Other 2022-0 MD ONE-ACET 3-28 [facility] 00:00: n N 00 HYDROCOD DRUG Active Low Other 2022-0 MD ONE-ACET 3-28 [facility] 00:00: n N 00 HYDROCOD DRUG Active Low Other 2022-0 MD ONE-ACET 3-28 [facility] 00:00: n N 00 HYDROCOD DRUG Active Low Other 2022-0 MD ONE-ACET 3-28 [facility] 00:00: n N 00 HYDROCOD DRUG Active Low Other 2022-0 MD ONE-ACET 3-28 [facility] 00:00: n N 00 HYDROCOD DRUG Active Low Other 2022-0 MD ONE-ACET 3-28 [facility] 00:00: n N 00 HYDROCOD DRUG Active Low Other 2022-0 MD ONE-ACET 3-28 [facility] 00:00: n N 00 HYDROCOD DRUG Active Low Other 2022-0 MD ONE-ACET 3-28 [facility] 00:00: n N 00 HYDROCOD DRUG Active Low Other 2022-0 MD ONE-ACET 3-28 [facility] 00:00: n N 00 HYDROCOD DRUG Active Low Other 2022-0 MD ONE-ACET 3-28 [facility] 00:00: n N 00 HYDROCOD DRUG Active Low Other 2022-0 MD ONE-ACET 3-28 [facility] 00:00: n N 00 HYDROCOD DRUG Active Low Other 2022-0 MD ONE-ACET 3-28 [facility] 00:00: n N 00 HYDROCOD DRUG Active Low Other 2022-0 MD ONE-ACET 3-28 [facility] 00:00: n N 00 HYDROCOD DRUG Active Low Other 2022-0 MD ONE-ACET 3-28 [facility] 00:00: n N 00 HYDROCOD DRUG Active Low Other 2022-0 MD ONE-ACET 3-28 [facility] 00:00: n N 00 HYDROCOD DRUG Active Low Other 2022-0 MD ONE-ACET 3-28 [facility] 00:00: n N 00 HYDROCOD DRUG Active Low Other 2022-0 MD ONE-ACET 3-28 [facility] 00:00: n N 00 HYDROCOD DRUG Active Low Other 2022-0 MD ONE-ACET 3-28 [facility] 00:00: n N 00 HYDROCOD DRUG Active Low Other 2022-0 MD ONE-ACET 3-28 [facility] 00:00: n N 00 HYDROCOD DRUG Active Low Other 2022-0 MD ONE-ACET 3-28 [facility] 00:00: n N 00 HYDROCOD DRUG Active Low Other 2022-0 MD ONE-ACET 3-28 [facility] 00:00: n N 00 HYDROCOD DRUG Active Low Other 2022-0 MD ONE-ACET 3-28 [facility] 00:00: n N 00 HYDROCOD DRUG Active Low Other 2022-0 MD ONE-ACET 3-28 [facility] 00:00: n N 00 HYDROCOD DRUG Active Low Other 2022-0 MD ONE-ACET 3-28 [facility] 00:00: n N 00 HYDROCOD DRUG Active Low Other 2022-0 MD ONE-ACET 3-28 [facility] 00:00: n N 00 HYDROCOD DRUG Active Low Other 2022-0 MD ONE-ACET 3-28 [facility] 00:00: n N 00 HYDROCOD DRUG Active Low Other 2022-0 MD ONE-ACET 3-28 [facility] 00:00: n N 00 HYDROCOD DRUG Active Low Other 2022-0 MD ONE-ACET 3-28 [facility] 00:00: n N 00 HYDROCOD DRUG Active Low Other 2022-0 MD ONE-ACET 3-28 [facility] 00:00: n N 00 HYDROCOD DRUG Active Low Other 2022-0 MD ONE-ACET 3-28 [facility] 00:00: n N 00 HYDROCOD DRUG Active Low Other 2022-0 MD ONE-ACET 3-28 [facility] 00:00: n N 00 HYDROCOD DRUG Active Low Other 2022-0 MD ONE-ACET 3-28 [facility] 00:00: n N 00 HYDROCOD DRUG Active Low Other 2022-0 MD ONE-ACET 3-28 [facility] 00:00: n N 00 HYDROCOD DRUG Active Low Other 2022-0 MD ONE-ACET 3-28 [facility] 00:00: n N 00 HYDROCOD DRUG Active Low Other 2022-0 MD ONE-ACET 3-28 [facility] 00:00: n N 00 HYDROCOD DRUG Active Low Other 2022-0 MD ONE-ACET 3-28 [facility] 00:00: n N 00 HYDROCOD DRUG Active Low Other 2022-0 MD ONE-ACET 3-28 [facility] 00:00: n N 00 HYDROCOD DRUG Active Low Other 2022-0 MD ONE-ACET 3-28 [facility] 00:00: n N 00 HYDROCOD DRUG Active Low Other 2022-0 MD ONE-ACET 3-28 [facility] 00:00: n N 00 HYDROCOD DRUG Active Low Other 2022-0 MD ONE-ACET 3-28 [facility] 00:00: n N 00 HYDROCOD DRUG Active Low Other 2022-0 MD ONE-ACET 3-28 [facility] 00:00: n N 00 HYDROCOD DRUG Active Low Other 2022-0 MD ONE-ACET 3-28 [facility] 00:00: n N 00 HYDROCOD DRUG Active Low Other 2022-0 MD ONE-ACET 3-28 [facility] 00:00: n N 00 HYDROCOD DRUG Active Low Other 2022-0 MD ONE-ACET 3-28 [facility] 00:00: n N 00 HYDROCOD DRUG Active Low Other 2022-0 MD ONE-ACET 3-28 [facility] 00:00: n N 00 HYDROCOD DRUG Active Low Other 2022-0 MD ONE-ACET 3-28 [facility] 00:00: n N 00 HYDROCOD DRUG Active Low Other 2022-0 MD ONE-ACET 3-28 [facility] 00:00: n N 00 HYDROCOD DRUG Active Low Other 2022-0 MD ONE-ACET 3-28 [facility] 00:00: n N 00 HYDROCOD DRUG Active Low Other 2022-0 MD ONE-ACET 3-28 [facility] 00:00: n N 00 HYDROCOD DRUG Active Low Other 2022-0 MD ONE-ACET 3-28 [facility] 00:00: n N 00 HYDROCOD DRUG Active Low Other 2022-0 MD ONE-ACET 3-28 [facility] 00:00: n N 00 HYDROCOD DRUG Active Low Other 2022-0 MD ONE-ACET 3-28 [facility] 00:00: n N 00 HYDROCOD DRUG Active Low Other 2022-0 MD ONE-ACET 3-28 [facility] 00:00: n N 00 HYDROCOD DRUG Active Low Other 2022-0 MD ONE-ACET 3-28 [facility] 00:00: n N 00 HYDROCOD DRUG Active Low Other 2022-0 MD ONE-ACET 3-28 [facility] 00:00: n N 00 HYDROCOD DRUG Active Low Other 2022-0 MD ONE-ACET 3-28 [facility] 00:00: n N 00 HYDROCOD DRUG Active Low Other 2022-0 MD ONE-ACET 3-28 [facility] 00:00: n N 00 HYDROCOD DRUG Active Low Other 2022-0 MD ONE-ACET 3-28 [facility] 00:00: n N 00 HYDROCOD DRUG Active Low Other 2022-0 MD ONE-ACET 3-28 [facility] 00:00: n N 00 HYDROCOD DRUG Active Low Other 2022-0 MD ONE-ACET 3-28 [facility] 00:00: n N 00 HYDROCOD DRUG Active Low Other 2022-0 MD ONE-ACET 3-28 [facility] 00:00: n N 00 HYDROCOD DRUG Active Low Other 2022-0 MD ONE-ACET 3-28 [facility] 00:00: n N 00 HYDROCOD DRUG Active Low Other 2022-0 MD ONE-ACET 3-28 [facility] 00:00: n N 00 HYDROCOD DRUG Active Low Other 2022-0 MD ONE-ACET 3-28 [facility] 00:00: n N 00 HYDROCOD DRUG Active Low Other 2022-0 MD ONE-ACET 3-28 [facility] 00:00: n N 00 HYDROCOD DRUG Active Low Other 2022-0 MD ONE-ACET 3-28 [facility] 00:00: n N 00 HYDROCOD DRUG Active Low Other 2022-0 MD ONE-ACET 3-28 [facility] 00:00: n N 00 HYDROCOD DRUG Active Low Other 2022-0 MD ONE-ACET 3-28 [facility] 00:00: n N 00 HYDROCOD DRUG Active Low Other 2022-0 MD ONE-ACET 3-28 [facility] 00:00: n N 00 HYDROCOD DRUG Active Low Other 2022-0 MD ONE-ACET 3-28 [facility] 00:00: n N 00 HYDROCOD DRUG Active Low Other 2022-0 MD ONE-ACET 3-28 [facility] 00:00: n N 00 HYDROCOD DRUG Active Low Other 2022-0 MD ONE-ACET 3-28 [facility] 00:00: n N 00 HYDROCOD DRUG Active Low Other 2022-0 MD ONE-ACET 3-28 [facility] 00:00: n N 00 HYDROCOD DRUG Active Low Other 2022-0 MD ONE-ACET 3-28 [facility] 00:00: n N 00 HYDROCOD DRUG Active Low Other 2022-0 MD ONE-ACET 3-28 [facility] 00:00: n N 00 HYDROCOD DRUG Active Low Other 2022-0 MD ONE-ACET 3-28 [facility] 00:00: n N 00 HYDROCOD DRUG Active Low Other 2022-0 MD ONE-ACET 3-28 [facility] 00:00: n N 00 HYDROCOD DRUG Active Low Other 2022-0 MD ONE-ACET 3-28 [facility] 00:00: n N 00 HYDROCOD DRUG Active Low Other 2022-0 MD ONE-ACET 3-28 [facility] 00:00: n N 00 HYDROCOD DRUG Active Low Other 2022-0 MD ONE-ACET 3-28 [facility] 00:00: n N 00 HYDROCOD DRUG Active Low Other 2022-0 MD ONE-ACET 3-28 [facility] 00:00: n N 00 HYDROCOD DRUG Active Low Other 2022-0 MD ONE-ACET 3-28 [facility] 00:00: n N 00 HYDROCOD DRUG Active Low Other 2022-0 MD ONE-ACET 3-28 [facility] 00:00: n N 00 HYDROCOD DRUG Active Low Other 2022-0 MD ONE-ACET 3-28 [facility] 00:00: n N 00 HYDROCOD DRUG Active Low Other 2022-0 MD ONE-ACET 3-28 [facility] 00:00: n N 00 HYDROCOD DRUG Active Low Other 2022-0 MD ONE-ACET 3-28 [facility] 00:00: n N 00 HYDROCOD DRUG Active Low Other 2022-0 MD ONE-ACET 3-28 [facility] 00:00: n N 00 HYDROCOD DRUG Active Low Other 2022-0 MD ONE-ACET 3-28 [facility] 00:00: n N 00 HYDROCOD DRUG Active Low Other 2022-0 MD ONE-ACET 3-28 [facility] 00:00: n N 00 HYDROCOD DRUG Active Low Other 2022-0 MD ONE-ACET 3-28 [facility] 00:00: n N 00 HYDROCOD DRUG Active Low Other 2022-0 MD ONE-ACET 3-28 [facility] 00:00: n N 00 HYDROCOD DRUG Active Low Other 2022-0 MD ONE-ACET 3-28 [facility] 00:00: n N 00 HYDROCOD DRUG Active Low Other 2022-0 MD ONE-ACET 3-28 [facility] 00:00: n N 00 HYDROCOD DRUG Active Low Other 2022-0 MD ONE-ACET 3-28 [facility] 00:00: n N 00 HYDROCOD DRUG Active Low Other 2022-0 MD ONE-ACET 3-28 [facility] 00:00: n N 00 HYDROCOD DRUG Active Low Other 2022-0 MD ONE-ACET 3-28 [facility] 00:00: n N 00 HYDROCOD DRUG Active Low Other 2022-0 MD ONE-ACET 3-28 [facility] 00:00: n N 00 HYDROCOD DRUG Active Low Other 2022-0 MD ONE-ACET 3-28 [facility] 00:00: n N 00 HYDROCOD DRUG Active Low Other 2022-0 MD ONE-ACET 3-28 [facility] 00:00: n N 00 HYDROCOD DRUG Active Low Other 2022-0 MD ONE-ACET 3-28 [facility] 00:00: n N 00 HYDROCOD DRUG Active Low Other 2022-0 MD ONE-ACET 3-28 [facility] 00:00: n N 00 HYDROCOD DRUG Active Low Other 2022-0 MD ONE-ACET 3-28 [facility] 00:00: n N 00 HYDROCOD DRUG Active Low Other 2022-0 MD ONE-ACET 3-28 [facility] 00:00: n N 00 HYDROCOD DRUG Active Low Other 2022-0 MD ONE-ACET 3-28 [facility] 00:00: n N 00 HYDROCOD DRUG Active Low Other 2022-0 MD ONE-ACET 3-28 [facility] 00:00: n N 00 HYDROCOD DRUG Active Low Other 2022-0 MD ONE-ACET 3-28 [facility] 00:00: n N 00 HYDROCOD DRUG Active Low Other 2022-0 MD ONE-ACET 3-28 [facility] 00:00: n N 00 HYDROCOD DRUG Active Low Other 2022-0 MD ONE-ACET 3-28 [facility] 00:00: n N 00 HYDROCOD DRUG Active Low Other 2022-0 MD ONE-ACET 3-28 [facility] 00:00: n N 00 HYDROCOD DRUG Active Low Other 2022-0 MD ONE-ACET 3-28 [facility] 00:00: n N 00 HYDROCOD DRUG Active Low Other 2022-0 MD ONE-ACET 3-28 [facility] 00:00: n N 00 HYDROCOD DRUG Active Low Other 2022-0 MD ONE-ACET 3-28 [facility] 00:00: n N 00 HYDROCOD DRUG Active Low Other 2022-0 MD ONE-ACET 3-28 [facility] 00:00: n N 00 HYDROCOD DRUG Active Low Other 2022-0 MD ONE-ACET 3-28 [facility] 00:00: n N 00 HYDROCOD DRUG Active Low Other 2022-0 MD ONE-ACET 3-28 [facility] 00:00: n N 00 HYDROCOD DRUG Active Low Other 2022-0 MD ONE-ACET 3-28 [facility] 00:00: n N 00 HYDROCOD DRUG Active Low Other 2022-0 MD ONE-ACET 3-28 [facility] 00:00: n N 00 HYDROCOD DRUG Active Low Other 2022-0 MD ONE-ACET 3-28 [facility] 00:00: n N 00 HYDROCOD DRUG Active Low Other 2022-0 MD ONE-ACET 3-28 [facility] 00:00: n N 00 HYDROCOD DRUG Active Low Other 2022-0 MD ONE-ACET 3-28 [facility] 00:00: n N 00 HYDROCOD DRUG Active Low Other 2022-0 MD ONE-ACET 3-28 [facility] 00:00: n N 00 HYDROCOD DRUG Active Low Other 2022-0 MD ONE-ACET 3-28 [facility] 00:00: n N 00 HYDROCOD DRUG Active Low Other 2022-0 MD ONE-ACET 3-28 [facility] 00:00: n N 00 HYDROCOD DRUG Active Low Other 2022-0 MD ONE-ACET 3-28 [facility] 00:00: n N 00 HYDROCOD DRUG Active Low Other 2022-0 MD ONE-ACET 3-28 [facility] 00:00: n N 00 HYDROCOD DRUG Active Low Other 2022-0 MD ONE-ACET 3-28 [facility] 00:00: n N 00 HYDROCOD DRUG Active Low Other 2022-0 MD ONE-ACET 3-28 [facility] 00:00: n N 00 HYDROCOD DRUG Active Low Other 2022-0 MD ONE-ACET 3-28 [facility] 00:00: n N 00 HYDROCOD DRUG Active Low Other 2022-0 MD ONE-ACET 3-28 [facility] 00:00: n N 00 HYDROCOD DRUG Active Low Other 2022-0 MD ONE-ACET 3-28 [facility] 00:00: n N 00 HYDROCOD DRUG Active Low Other 2022-0 MD ONE-ACET 3-28 [facility] 00:00: n N 00 HYDROCOD DRUG Active Low Other 2022-0 MD ONE-ACET 3-28 [facility] 00:00: n N 00 HYDROCOD DRUG Active Low Other 2022-0 MD ONE-ACET 3-28 [facility] 00:00: n N 00 HYDROCOD DRUG Active Low Other 2022-0 MD ONE-ACET 3-28 [facility] 00:00: n N 00 HYDROCOD DRUG Active Low Other 2022-0 MD ONE-ACET 3-28 [facility] 00:00: n N 00 HYDROCOD DRUG Active Low Other 2022-0 MD ONE-ACET 3-28 [facility] 00:00: n N 00 HYDROCOD DRUG Active Low Other 2022-0 MD ONE-ACET 3-28 [facility] 00:00: n N 00 HYDROCOD DRUG Active Low Other 2022-0 MD ONE-ACET 3-28 [facility] 00:00: n N 00 HYDROCOD DRUG Active Low Other 2022-0 MD ONE-ACET 3-28 [facility] 00:00: n N 00 HYDROCOD DRUG Active Low Other 2022-0 MD ONE-ACET 3-28 [facility] 00:00: n N 00 HYDROCOD DRUG Active Low Other 2022-0 MD ONE-ACET 3-28 [facility] 00:00: n N 00 HYDROCOD DRUG Active Low Other 2022-0 MD ONE-ACET 3-28 [facility] 00:00: n N 00 HYDROCOD DRUG Active Low Other 2022-0 MD ONE-ACET 3-28 [facility] 00:00: n N 00 HYDROCOD DRUG Active Low Other 2022-0 MD ONE-ACET 3-28 [facility] 00:00: n N 00 HYDROCOD DRUG Active Low Other 2022-0 MD ONE-ACET 3-28 [facility] 00:00: n N 00 HYDROCOD DRUG Active Low Other 2022-0 MD ONE-ACET 3-28 [facility] 00:00: n N 00 HYDROCOD DRUG Active Low Other 2022-0 MD ONE-ACET 3-28 [facility] 00:00: n N 00 HYDROCOD DRUG Active Low Other 2022-0 MD ONE-ACET 3-28 [facility] 00:00: n N 00 HYDROCOD DRUG Active Low Other 2022-0 MD ONE-ACET 3-28 [facility] 00:00: n N 00 HYDROCOD DRUG Active Low Other 2022-0 MD ONE-ACET 3-28 [facility] 00:00: n N 00 HYDROCOD DRUG Active Low Other 2022-0 MD ONE-ACET 3-28 [facility] 00:00: n N 00 HYDROCOD DRUG Active Low Other 2022-0 MD ONE-ACET 3-28 [facility] 00:00: n N 00 HYDROCOD DRUG Active Low Other 2022-0 MD ONE-ACET 3-28 [facility] 00:00: n N 00 HYDROCOD DRUG Active Low Other 2022-0 MD ONE-ACET 3-28 [facility] 00:00: n N 00 HYDROCOD DRUG Active Low Other 2022-0 MD ONE-ACET 3-28 [facility] 00:00: n N 00 HYDROCOD DRUG Active Low Other 2022-0 MD ONE-ACET 3-28 [facility] 00:00: n N 00 HYDROCOD DRUG Active Low Other 2022-0 MD ONE-ACET 3-28 [facility] 00:00: n N 00 HYDROCOD DRUG Active Low Other 2022-0 MD ONE-ACET 3-28 [facility] 00:00: n N 00 HYDROCOD DRUG Active Low Other 2022-0 MD ONE-ACET 3-28 [facility] 00:00: n N 00 HYDROCOD DRUG Active Low Other 2022-0 MD ONE-ACET 3-28 [facility] 00:00: n N 00 HYDROCOD DRUG Active Low Other 2022-0 MD ONE-ACET 3-28 [facility] 00:00: n N 00 HYDROCOD DRUG Active Low Other 2022-0 MD ONE-ACET 3-28 [facility] 00:00: n N 00 HYDROCOD DRUG Active Low Other 2022-0 MD ONE-ACET 3-28 [facility] 00:00: n N 00 HYDROCOD DRUG Active Low Other 2022-0 MD ONE-ACET 3-28 [facility] 00:00: n N 00 HYDROCOD DRUG Active Low Other 2022-0 MD ONE-ACET 3-28 [facility] 00:00: n N 00 HYDROCOD DRUG Active Low Other 2022-0 MD ONE-ACET 3-28 [facility] 00:00: n N 00 HYDROCOD DRUG Active Low Other 2022-0 MD ONE-ACET 3-28 [facility] 00:00: n N 00 HYDROCOD DRUG Active Low Other 2022-0 MD ONE-ACET 3-28 [facility] 00:00: n N 00 HYDROCOD DRUG Active Low Other 2022-0 MD ONE-ACET 3-28 [facility] 00:00: n N 00 HYDROCOD DRUG Active Low Other 2022-0 MD ONE-ACET 3-28 [facility] 00:00: n N 00 HYDROCOD DRUG Active Low Other 2022-0 MD ONE-ACET 3-28 [facility] 00:00: n N 00 HYDROCOD DRUG Active Low Other 2022-0 MD ONE-ACET 3-28 [facility] 00:00: n N 00 HYDROCOD DRUG Active Low Other 2022-0 MD ONE-ACET 3-28 [facility] 00:00: n N 00 HYDROCOD DRUG Active Low Other 2022-0 MD ONE-ACET 3-28 [facility] 00:00: n N 00 HYDROCOD DRUG Active Low Other 2022-0 MD ONE-ACET 3-28 [facility] 00:00: n N 00 HYDROCOD DRUG Active Low Other 2022-0 MD ONE-ACET 3-28 [facility] 00:00: n N 00 HYDROCOD DRUG Active Low Other 2022-0 MD ONE-ACET 3-28 [facility] 00:00: n N 00 HYDROCOD DRUG Active Low Other 2022-0 MD ONE-ACET 3-28 [facility] 00:00: n N 00 HYDROCOD DRUG Active Low Other 2022-0 MD ONE-ACET 3-28 [facility] 00:00: n N 00 HYDROCOD DRUG Active Low Other 2022-0 MD ONE-ACET 3-28 [facility] 00:00: n N 00 HYDROCOD DRUG Active Low Other 2022-0 MD ONE-ACET 3-28 [facility] 00:00: n N 00 HYDROCOD DRUG Active Low Other 2022-0 MD ONE-ACET 3-28 [facility] 00:00: n N 00 HYDROCOD DRUG Active Low Other 2022-0 MD ONE-ACET 3-28 [facility] 00:00: n N 00 HYDROCOD DRUG Active Low Other 2022-0 MD ONE-ACET 3-28 [facility] 00:00: n N 00 HYDROCOD DRUG Active Low Other 2022-0 MD ONE-ACET 3-28 [facility] 00:00: n N 00 HYDROCOD DRUG Active Low Other 2022-0 MD ONE-ACET 3-28 [facility] 00:00: n N 00 HYDROCOD DRUG Active Low Other 2022-0 MD ONE-ACET 3-28 [facility] 00:00: n N 00 HYDROCOD DRUG Active Low Other 2022-0 MD ONE-ACET 3-28 [facility] 00:00: n N 00 HYDROCOD DRUG Active Low Other 2022-0 MD ONE-ACET 3-28 [facility] 00:00: n N 00 HYDROCOD DRUG Active Low Other 2022-0 MD ONE-ACET 3-28 [facility] 00:00: n N 00 HYDROCOD DRUG Active Low Other 2022-0 MD ONE-ACET 3-28 [facility] 00:00: n N 00 HYDROCOD DRUG Active Low Other 2022-0 MD ONE-ACET 3-28 [facility] 00:00: n N 00 HYDROCOD DRUG Active Low Other 2022-0 MD ONE-ACET 3-28 [facility] 00:00: n N 00 HYDROCOD DRUG Active Low Other 2022-0 MD ONE-ACET 3-28 [facility] 00:00: n N 00 HYDROCOD DRUG Active Low Other 2022-0 MD ONE-ACET 3-28 [facility] 00:00: n N 00 HYDROCOD DRUG Active Low Other 2022-0 MD ONE-ACET 3-28 [facility] 00:00: n N 00 HYDROCOD DRUG Active Low Other 2022-0 MD ONE-ACET 3-28 [facility] 00:00: n N 00 HYDROCOD DRUG Active Low Other 2022-0 MD ONE-ACET 3-28 Anderso AMINOPHE 00:00: n N 00 HYDROCOD DRUG Active Low Other 2022-0 MD ONE-ACET 3-28 Anderso AMINOPHE 00:00: n N 00 HYDROCOD DRUG Active Low Other 2022-0 MD ONE-ACET 3-28 Anderso AMINOPHE 00:00: n N 00 HYDROCOD DRUG Active Low Other 2022-0 MD ONE-ACET 3-28 Anderso AMINOPHE 00:00: n N 00 HYDROCOD DRUG Active Low Other 2022-0 MD ONE-ACET 3-28 Anderso AMINOPHE 00:00: n N 00 HYDROCOD DRUG Active Low Other 2022-0 MD ONE-ACET 3-28 Anderso AMINOPHE 00:00: n N 00 HYDROCOD DRUG Active Low Other 2022-0 MD ONE-ACET 3-28 Anderso AMINOPHE 00:00: n N 00 HYDROCOD DRUG Active Low Other 2022-0 MD ONE-ACET 3-28 Anderso AMINOPHE 00:00: n N 00 HYDROCOD DRUG Active Low Other 2022-0 MD ONE-ACET 3-28 Anderso AMINOPHE 00:00: n N 00 HYDROCOD DRUG Active Low Other 2022-0 MD ONE-ACET 3-28 Anderso AMINOPHE 00:00: n N 00 HYDROCOD DRUG Active Low Other 2022-0 MD ONE-ACET 3-28 Anderso AMINOPHE 00:00: n N 00 HYDROCOD DRUG Active Low Other 2022-0 MD ONE-ACET 3-28 Anderso AMINOPHE 00:00: n N 00 HYDROCOD DRUG Active Low Other 2022-0 MD ONE-ACET 3-28 Anderso AMINOPHE 00:00: n N 00 HYDROCOD DRUG Active Low Other 2022-0 MD ONE-ACET 3-28 Anderso AMINOPHE 00:00: n N 00 HYDROCOD DRUG Active Low Other 2022-0 MD ONE-ACET 3-28 Anderso AMINOPHE 00:00: n N 00 HYDROCOD DRUG Active Low Other 2022-0 MD ONE-ACET 3-28 Anderso AMINOPHE 00:00: n N 00 HYDROCOD DRUG Active Low Other 2022-0 MD ONE-ACET 3-28 Anderso AMINOPHE 00:00: n N 00 HYDROCOD DRUG Active Low Other 2022-0 MD ONE-ACET 3-28 Anderso AMINOPHE 00:00: n N 00 HYDROCOD DRUG Active Low Other 2022-0 MD ONE-ACET 3-28 Anderso AMINOPHE 00:00: n N 00 HYDROCOD DRUG Active Low Other 2022-0 MD ONE-ACET 3-28 Anderso AMINOPHE 00:00: n N 00 HYDROCOD DRUG Active Low Other 2022-0 MD ONE-ACET 3-28 Anderso AMINOPHE 00:00: n N 00 HYDROCOD DRUG Active Low Other 2022-0 MD ONE-ACET 3-28 Anderso AMINOPHE 00:00: n N 00 HYDROCOD DRUG Active Low Other 2022-0 MD ONE-ACET 3-28 Anderso AMINOPHE 00:00: n N 00 HYDROCOD DRUG Active Low Other 2022-0 MD ONE-ACET 3-28 Anderso AMINOPHE 00:00: n N 00 HYDROCOD DRUG Active Low Other 2022-0 MD ONE-ACET 3-28 Anderso AMINOPHE 00:00: n N 00 HYDROCOD DRUG Active Low Other 2022-0 MD ONE-ACET 3-28 Anderso AMINOPHE 00:00: n N 00 HYDROCOD DRUG Active Low Other 2022-0 MD ONE-ACET 3-28 Anderso AMINOPHE 00:00: n N 00 HYDROCOD DRUG Active Low Other 2022-0 MD ONE-ACET 3-28 Anderso AMINOPHE 00:00: n N 00 HYDROCOD DRUG Active Low Other 2022-0 MD ONE-ACET 3-28 Anderso AMINOPHE 00:00: n N 00 HYDROCOD DRUG Active Low Other 2022-0 MD ONE-ACET 3-28 Anderso AMINOPHE 00:00: n N 00 HYDROCOD DRUG Active Low Other 2022-0 MD ONE-ACET 3-28 Anderso AMINOPHE 00:00: n N 00 HYDROCOD DRUG Active Low Other 2022-0 MD ONE-ACET 3-28 Anderso AMINOPHE 00:00: n N 00 HYDROCOD DRUG Active Low Other 2022-0 MD ONE-ACET 3-28 Anderso AMINOPHE 00:00: n N 00 HYDROCOD DRUG Active Low Other 2022-0 MD ONE-ACET 3-28 Anderso AMINOPHE 00:00: n N 00 HYDROCOD DRUG Active Low Other 2022-0 MD ONE-ACET 3-28 Anderso AMINOPHE 00:00: n N 00 HYDROCOD DRUG Active Low Other 2022-0 MD ONE-ACET 3-28 Anderso AMINOPHE 00:00: n N 00 HYDROCOD DRUG Active Low Other 2022-0 MD ONE-ACET 3-28 Anderso AMINOPHE 00:00: n N 00 HYDROCOD DRUG Active Low Other 2022-0 MD ONE-ACET 3-28 Anderso AMINOPHE 00:00: n N 00 HYDROCOD DRUG Active Low Other 2022-0 MD ONE-ACET 3-28 Anderso AMINOPHE 00:00: n N 00 HYDROCOD DRUG Active Low Other 2022-0 MD ONE-ACET 3-28 Anderso AMINOPHE 00:00: n N 00 HYDROCOD DRUG Active Low Other 2022-0 MD ONE-ACET 3-28 Anderso AMINOPHE 00:00: n N 00 HYDROCOD DRUG Active Low Other 2022-0 MD ONE-ACET 3-28 Anderso AMINOPHE 00:00: n N 00 HYDROCOD DRUG Active Low Other 2022-0 MD ONE-ACET 3-28 [facility] 00:00: n N 00 HYDROCOD DRUG Active Low Other 2022-0 MD ONE-ACET 3-28 [facility] 00:00: n N 00 HYDROCOD DRUG Active Low Other 2022-0 MD ONE-ACET 3-28 [facility] 00:00: n N 00 HYDROCOD DRUG Active Low Other 2022-0 MD ONE-ACET 3-28 [facility] 00:00: n N 00 HYDROCOD DRUG Active Low Other 2022-0 MD ONE-ACET 3-28 [facility] 00:00: n N 00 HYDROCOD DRUG Active Low Other 2022-0 MD ONE-ACET 3-28 [facility] 00:00: n N 00 HYDROCOD DRUG Active Low Other 2022-0 MD ONE-ACET 3-28 [facility] 00:00: n N 00 HYDROCOD DRUG Active Low Other 2022-0 MD ONE-ACET 3-28 [facility] 00:00: n N 00 HYDROCOD DRUG Active Low Other 2022-0 MD ONE-ACET 3-28 [facility] 00:00: n N 00 HYDROCOD DRUG Active Low Other 2022-0 MD ONE-ACET 3-28 [facility] 00:00: n N 00 HYDROCOD DRUG Active Low Other 2022-0 MD ONE-ACET 3-28 [facility] 00:00: n N 00 HYDROCOD DRUG Active Low Other 2022-0 MD ONE-ACET 3-28 [facility] 00:00: n N 00 HYDROCOD DRUG Active Low Other 2022-0 MD ONE-ACET 3-28 [facility] 00:00: n N 00 HYDROCOD DRUG Active Low Other 2022-0 MD ONE-ACET 3-28 [facility] 00:00: n N 00 HYDROCOD DRUG Active Low Other 2022-0 MD ONE-ACET 3-28 [facility] 00:00: n N 00 HYDROCOD DRUG Active Low Other 2022-0 MD ONE-ACET 3-28 [facility] 00:00: n N 00 HYDROCOD DRUG Active Low Other 2022-0 MD ONE-ACET 3-28 [facility] 00:00: n N 00 HYDROCOD DRUG Active Low Other 2022-0 MD ONE-ACET 3-28 [facility] 00:00: n N 00 HYDROCOD DRUG Active Low Other 2022-0 MD ONE-ACET 3-28 [facility] 00:00: n N 00 HYDROCOD DRUG Active Low Other 2022-0 MD ONE-ACET 3-28 [facility] 00:00: n N 00 HYDROCOD DRUG Active Low Other 2022-0 MD ONE-ACET 3-28 [facility] 00:00: n N 00 HYDROCOD DRUG Active Low Other 2022-0 MD ONE-ACET 3-28 [facility] 00:00: n N 00 HYDROCOD DRUG Active Low Other 2022-0 MD ONE-ACET 3-28 [facility] 00:00: n N 00 HYDROCOD DRUG Active Low Other 2022-0 MD ONE-ACET 3-28 [facility] 00:00: n N 00 HYDROCOD DRUG Active Low Other 2022-0 MD ONE-ACET 3-28 [facility] 00:00: n N 00 HYDROCOD DRUG Active Low Other 2022-0 MD ONE-ACET 3-28 [facility] 00:00: n N 00 HYDROCOD DRUG Active Low Other 2022-0 MD ONE-ACET 3-28 [facility] 00:00: n N 00 HYDROCOD DRUG Active Low Other 2022-0 MD ONE-ACET 3-28 [facility] 00:00: n N 00 HYDROCOD DRUG Active Low Other 2022-0 MD ONE-ACET 3-28 [facility] 00:00: n N 00 HYDROCOD DRUG Active Low Other 2022-0 MD ONE-ACET 3-28 [facility] 00:00: n N 00 HYDROCOD DRUG Active Low Other 2022-0 MD ONE-ACET 3-28 [facility] 00:00: n N 00 HYDROCOD DRUG Active Low Other 2022-0 MD ONE-ACET 3-28 [facility] 00:00: n N 00 HYDROCOD DRUG Active Low Other 2022-0 MD ONE-ACET 3-28 [facility] 00:00: n N 00 HYDROCOD DRUG Active Low Other 2022-0 MD ONE-ACET 3-28 [facility] 00:00: n N 00 HYDROCOD DRUG Active Low Other 2022-0 MD ONE-ACET 3-28 [facility] 00:00: n N 00 HYDROCOD DRUG Active Low Other 2022-0 MD ONE-ACET 3-28 [facility] 00:00: n N 00 HYDROCOD DRUG Active Low Other 2022-0 MD ONE-ACET 3-28 [facility] 00:00: n N 00 HYDROCOD DRUG Active Low Other 2022-0 MD ONE-ACET 3-28 [facility] 00:00: n N 00 HYDROCOD DRUG Active Low Other 2022-0 MD ONE-ACET 3-28 [facility] 00:00: n N 00 HYDROCOD DRUG Active Low Other 2022-0 MD ONE-ACET 3-28 [facility] 00:00: n N 00 HYDROCOD DRUG Active Low Other 2022-0 MD ONE-ACET 3-28 [facility] 00:00: n N 00 HYDROCOD DRUG Active Low Other 2022-0 MD ONE-ACET 3-28 [facility] 00:00: n N 00 HYDROCOD DRUG Active Low Other 2022-0 MD ONE-ACET 3-28 [facility] 00:00: n N 00 HYDROCOD DRUG Active Low Other 2022-0 MD ONE-ACET 3-28 [facility] 00:00: n N 00 HYDROCOD DRUG Active Low Other 2022-0 MD ONE-ACET 3-28 [facility] 00:00: n N 00 HYDROCOD DRUG Active Low Other 2022-0 MD ONE-ACET 3-28 [facility] 00:00: n N 00 HYDROCOD DRUG Active Low Other 2022-0 MD ONE-ACET 3-28 [facility] 00:00: n N 00 HYDROCOD DRUG Active Low Other 2022-0 MD ONE-ACET 3-28 [facility] 00:00: n N 00 HYDROCOD DRUG Active Low Other 2022-0 MD ONE-ACET 3-28 [facility] 00:00: n N 00 HYDROCOD DRUG Active Low Other 2022-0 MD ONE-ACET 3-28 [facility] 00:00: n N 00 HYDROCOD DRUG Active Low Other 2022-0 MD ONE-ACET 3-28 [facility] 00:00: n N 00 HYDROCOD DRUG Active Low Other 2022-0 MD ONE-ACET 3-28 [facility] 00:00: n N 00 HYDROCOD DRUG Active Low Other 2022-0 MD ONE-ACET 3-28 [facility] 00:00: n N 00 HYDROCOD DRUG Active Low Other 2022-0 MD ONE-ACET 3-28 [facility] 00:00: n N 00 HYDROCOD DRUG Active Low Other 2022-0 MD ONE-ACET 3-28 [facility] 00:00: n N 00 HYDROCOD DRUG Active Low Other 2022-0 MD ONE-ACET 3-28 [facility] 00:00: n N 00 HYDROCOD DRUG Active Low Other 2022-0 MD ONE-ACET 3-28 [facility] 00:00: n N 00 HYDROCOD DRUG Active Low Other 2022-0 MD ONE-ACET 3-28 [facility] 00:00: n N 00 HYDROCOD DRUG Active Low Other 2022-0 MD ONE-ACET 3-28 [facility] 00:00: n N 00 HYDROCOD DRUG Active Low Other 2022-0 MD ONE-ACET 3-28 [facility] 00:00: n N 00 HYDROCOD DRUG Active Low Other 2022-0 MD ONE-ACET 3-28 [facility] 00:00: n N 00 HYDROCOD DRUG Active Low Other 2022-0 MD ONE-ACET 3-28 [facility] 00:00: n N 00 HYDROCOD DRUG Active Low Other 2022-0 MD ONE-ACET 3-28 [facility] 00:00: n N 00 HYDROCOD DRUG Active Low Other 2022-0 MD ONE-ACET 3-28 [facility] 00:00: n N 00 HYDROCOD DRUG Active Low Other 2022-0 MD ONE-ACET 3-28 [facility] 00:00: n N 00 HYDROCOD DRUG Active Low Other 2022-0 MD ONE-ACET 3-28 [facility] 00:00: n N 00 HYDROCOD DRUG Active Low Other 2022-0 MD ONE-ACET 3-28 [facility] 00:00: n N 00 HYDROCOD DRUG Active Low Other 2022-0 MD ONE-ACET 3-28 [facility] 00:00: n N 00 HYDROCOD DRUG Active Low Other 2022-0 MD ONE-ACET 3-28 [facility] 00:00: n N 00 HYDROCOD DRUG Active Low Other 2022-0 MD ONE-ACET 3-28 [facility] 00:00: n N 00 HYDROCOD DRUG Active Low Other 2022-0 MD ONE-ACET 3-28 [facility] 00:00: n N 00 HYDROCOD DRUG Active Low Other 2022-0 MD ONE-ACET 3-28 [facility] 00:00: n N 00 HYDROCOD DRUG Active Low Other 2022-0 MD ONE-ACET 3-28 [facility] 00:00: n N 00 HYDROCOD DRUG Active Low Other 2022-0 MD ONE-ACET 3-28 [facility] 00:00: n N 00 HYDROCOD DRUG Active Low Other 2022-0 MD ONE-ACET 3-28 [facility] 00:00: n N 00 HYDROCOD DRUG Active Low Other 2022-0 MD ONE-ACET 3-28 [facility] 00:00: n N 00 HYDROCOD DRUG Active Low Other 2022-0 MD ONE-ACET 3-28 [facility] 00:00: n N 00 HYDROCOD DRUG Active Low Other 2022-0 MD ONE-ACET 3-28 [facility] 00:00: n N 00 HYDROCOD DRUG Active Low Other 2022-0 MD ONE-ACET 3-28 [facility] 00:00: n N 00 HYDROCOD DRUG Active Low Other 2022-0 MD ONE-ACET 3-28 [facility] 00:00: n N 00 HYDROCOD DRUG Active Low Other 2022-0 MD ONE-ACET 3-28 [facility] 00:00: n N 00 HYDROCOD DRUG Active Low Other 2022-0 MD ONE-ACET 3-28 [facility] 00:00: n N 00 HYDROCOD DRUG Active Low Other 2022-0 MD ONE-ACET 3-28 [facility] 00:00: n N 00 HYDROCOD DRUG Active Low Other 2022-0 MD ONE-ACET 3-28 [facility] 00:00: n N 00 HYDROCOD DRUG Active Low Other 2022-0 MD ONE-ACET 3-28 [facility] 00:00: n N 00 HYDROCOD DRUG Active Low Other 2022-0 MD ONE-ACET 3-28 [facility] 00:00: n N 00 HYDROCOD DRUG Active Low Other 2022-0 MD ONE-ACET 3-28 [facility] 00:00: n N 00 HYDROCOD DRUG Active Low Other 2022-0 MD ONE-ACET 3-28 [facility] 00:00: n N 00 HYDROCOD DRUG Active Low Other 2022-0 MD ONE-ACET 3-28 [facility] 00:00: n N 00 HYDROCOD DRUG Active Low Other 2022-0 MD ONE-ACET 3-28 [facility] 00:00: n N 00 HYDROCOD DRUG Active Low Other 2022-0 MD ONE-ACET 3-28 [facility] 00:00: n N 00 HYDROCOD DRUG Active Low Other 2022-0 MD ONE-ACET 3-28 [facility] 00:00: n N 00 HYDROCOD DRUG Active Low Other 2022-0 MD ONE-ACET 3-28 [facility] 00:00: n N 00 HYDROCOD DRUG Active Low Other 2022-0 MD ONE-ACET 3-28 [facility] 00:00: n N 00 HYDROCOD DRUG Active Low Other 2022-0 MD ONE-ACET 3-28 [facility] 00:00: n N 00 HYDROCOD DRUG Active Low Other 2022-0 MD ONE-ACET 3-28 [facility] 00:00: n N 00 HYDROCOD DRUG Active Low Other 2022-0 MD ONE-ACET 3-28 [facility] 00:00: n N 00 HYDROCOD DRUG Active Low Other 2022-0 MD ONE-ACET 3-28 [facility] 00:00: n N 00 HYDROCOD DRUG Active Low Other 2022-0 MD ONE-ACET 3-28 [facility] 00:00: n N 00 HYDROCOD DRUG Active Low Other 2022-0 MD ONE-ACET 3-28 [facility] 00:00: n N 00 HYDROCOD DRUG Active Low Other 2022-0 MD ONE-ACET 3-28 [facility] 00:00: n N 00 HYDROCOD DRUG Active Low Other 2022-0 MD ONE-ACET 3-28 [facility] 00:00: n N 00 HYDROCOD DRUG Active Low Other 2022-0 MD ONE-ACET 3-28 [facility] 00:00: n N 00 HYDROCOD DRUG Active Low Other 2022-0 MD ONE-ACET 3-28 [facility] 00:00: n N 00 HYDROCOD DRUG Active Low Other 2022-0 MD ONE-ACET 3-28 [facility] 00:00: n N 00 HYDROCOD DRUG Active Low Other 2022-0 MD ONE-ACET 3-28 [facility] 00:00: n N 00 HYDROCOD DRUG Active Low Other 2022-0 MD ONE-ACET 3-28 [facility] 00:00: n N 00 HYDROCOD DRUG Active Low Other 2022-0 MD ONE-ACET 3-28 [facility] 00:00: n N 00 HYDROCOD DRUG Active Low Other 2022-0 MD ONE-ACET 3-28 [facility] 00:00: n N 00 HYDROCOD DRUG Active Low Other 2022-0 MD ONE-ACET 3-28 [facility] 00:00: n N 00 HYDROCOD DRUG Active Low Other 2022-0 MD ONE-ACET 3-28 [facility] 00:00: n N 00 HYDROCOD DRUG Active Low Other 2022-0 MD ONE-ACET 3-28 [facility] 00:00: n N 00 HYDROCOD DRUG Active Low Other 2022-0 MD ONE-ACET 3-28 [facility] 00:00: n N 00 HYDROCOD DRUG Active Low Other 2022-0 MD ONE-ACET 3-28 [facility] 00:00: n N 00 HYDROCOD DRUG Active Low Other 2022-0 MD ONE-ACET 3-28 [facility] 00:00: n N 00 HYDROCOD DRUG Active Low Other 2022-0 MD ONE-ACET 3-28 [facility] 00:00: n N 00 HYDROCOD DRUG Active Low Other 2022-0 MD ONE-ACET 3-28 [facility] 00:00: n N 00 HYDROCOD DRUG Active Low Other 2022-0 MD ONE-ACET 3-28 [facility] 00:00: n N 00 HYDROCOD DRUG Active Low Other 2022-0 MD ONE-ACET 3-28 [facility] 00:00: n N 00 HYDROCOD DRUG Active Low Other 2022-0 MD ONE-ACET 3-28 [facility] 00:00: n N 00 HYDROCOD DRUG Active Low Other 2022-0 MD ONE-ACET 3-28 [facility] 00:00: n N 00 HYDROCOD DRUG Active Low Other 2022-0 MD ONE-ACET 3-28 [facility] 00:00: n N 00 HYDROCOD DRUG Active Low Other 2022-0 MD ONE-ACET 3-28 [facility] 00:00: n N 00 HYDROCOD DRUG Active Low Other 2022-0 MD ONE-ACET 3-28 [facility] 00:00: n N 00 HYDROCOD DRUG Active Low Other 2022-0 MD ONE-ACET 3-28 [facility] 00:00: n N 00 HYDROCOD DRUG Active Low Other 2022-0 MD ONE-ACET 3-28 [facility] 00:00: n N 00 HYDROCOD DRUG Active Low Other 2022-0 MD ONE-ACET 3-28 [facility] 00:00: n N 00 HYDROCOD DRUG Active Low Other 2022-0 MD ONE-ACET 3-28 [facility] 00:00: n N 00 HYDROCOD DRUG Active Low Other 2022-0 MD ONE-ACET 3-28 [facility] 00:00: n N 00 HYDROCOD DRUG Active Low Other 2022-0 MD ONE-ACET 3-28 [facility] 00:00: n N 00 HYDROCOD DRUG Active Low Other 2022-0 MD ONE-ACET 3-28 [facility] 00:00: n N 00 HYDROCOD DRUG Active Low Other 2022-0 MD ONE-ACET 3-28 [facility] 00:00: n N 00 HYDROCOD DRUG Active Low Other 2022-0 MD ONE-ACET 3-28 [facility] 00:00: n N 00 HYDROCOD DRUG Active Low Other 2022-0 MD ONE-ACET 3-28 [facility] 00:00: n N 00 HYDROCOD DRUG Active Low Other 2022-0 MD ONE-ACET 3-28 [facility] 00:00: n N 00 HYDROCOD DRUG Active Low Other 2022-0 MD ONE-ACET 3-28 [facility] 00:00: n N 00 HYDROCOD DRUG Active Low Other 2022-0 MD ONE-ACET 3-28 [facility] 00:00: n N 00 HYDROCOD DRUG Active Low Other 2022-0 MD ONE-ACET 3-28 [facility] 00:00: n N 00 HYDROCOD DRUG Active Low Other 2022-0 MD ONE-ACET 3-28 [facility] 00:00: n N 00 HYDROCOD DRUG Active Low Other 2022-0 MD ONE-ACET 3-28 [facility] 00:00: n N 00 HYDROCOD DRUG Active Low Other 2022-0 MD ONE-ACET 3-28 [facility] 00:00: n N 00 HYDROCOD DRUG Active Low Other 2022-0 MD ONE-ACET 3-28 [facility] 00:00: n N 00 HYDROCOD DRUG Active Low Other 2022-0 MD ONE-ACET 3-28 [facility] 00:00: n N 00 HYDROCOD DRUG Active Low Other 2022-0 MD ONE-ACET 3-28 [facility] 00:00: n N 00 HYDROCOD DRUG Active Low Other 2022-0 MD ONE-ACET 3-28 [facility] 00:00: n N 00 HYDROCOD DRUG Active Low Other 2022-0 MD ONE-ACET 3-28 [facility] 00:00: n N 00 HYDROCOD DRUG Active Low Other 2022-0 MD ONE-ACET 3-28 [facility] 00:00: n N 00 HYDROCOD DRUG Active Low Other 2022-0 MD ONE-ACET 3-28 [facility] 00:00: n N 00 HYDROCOD DRUG Active Low Other 2022-0 MD ONE-ACET 3-28 [facility] 00:00: n N 00 HYDROCOD DRUG Active Low Other 2022-0 MD ONE-ACET 3-28 [facility] 00:00: n N 00 HYDROCOD DRUG Active Low Other 2022-0 MD ONE-ACET 3-28 [facility] 00:00: n N 00 HYDROCOD DRUG Active Low Other 2022-0 MD ONE-ACET 3-28 [facility] 00:00: n N 00 HYDROCOD DRUG Active Low Other 2022-0 MD ONE-ACET 3-28 [facility] 00:00: n N 00 HYDROCOD DRUG Active Low Other 2022-0 MD ONE-ACET 3-28 [facility] 00:00: n N 00 HYDROCOD DRUG Active Low Other 2022-0 MD ONE-ACET 3-28 [facility] 00:00: n N 00 HYDROCOD DRUG Active Low Other 2022-0 MD ONE-ACET 3-28 [facility] 00:00: n N 00 HYDROCOD DRUG Active Low Other 2022-0 MD ONE-ACET 3-28 [facility] 00:00: n N 00 HYDROCOD DRUG Active Low Other 2022-0 MD ONE-ACET 3-28 [facility] 00:00: n N 00 HYDROCOD DRUG Active Low Other 2022-0 MD ONE-ACET 3-28 [facility] 00:00: n N 00 HYDROCOD DRUG Active Low Other 2022-0 MD ONE-ACET 3-28 [facility] 00:00: n N 00 HYDROCOD DRUG Active Low Other 2022-0 MD ONE-ACET 3-28 [facility] 00:00: n N 00 HYDROCOD DRUG Active Low Other 2022-0 MD ONE-ACET 3-28 [facility] 00:00: n N 00 HYDROCOD DRUG Active Low Other 2022-0 MD ONE-ACET 3-28 [facility] 00:00: n N 00 HYDROCOD DRUG Active Low Other 2022-0 MD ONE-ACET 3-28 [facility] 00:00: n N 00 HYDROCOD DRUG Active Low Other 2022-0 MD ONE-ACET 3-28 [facility] 00:00: n N 00 HYDROCOD DRUG Active Low Other 2022-0 MD ONE-ACET 3-28 [facility] 00:00: n N 00 HYDROCOD DRUG Active Low Other 2022-0 MD ONE-ACET 3-28 [facility] 00:00: n N 00 HYDROCOD DRUG Active Low Other 2022-0 MD ONE-ACET 3-28 [facility] 00:00: n N 00 HYDROCOD DRUG Active Low Other 2022-0 MD ONE-ACET 3-28 [facility] 00:00: n N 00 HYDROCOD DRUG Active Low Other 2022-0 MD ONE-ACET 3-28 [facility] 00:00: n N 00 HYDROCOD DRUG Active Low Other 2022-0 MD ONE-ACET 3-28 [facility] 00:00: n N 00 HYDROCOD DRUG Active Low Other 2022-0 MD ONE-ACET 3-28 [facility] 00:00: n N 00 HYDROCOD DRUG Active Low Other 2022-0 MD ONE-ACET 3-28 [facility] 00:00: n N 00 HYDROCOD DRUG Active Low Other 2022-0 MD ONE-ACET 3-28 [facility] 00:00: n N 00 HYDROCOD DRUG Active Low Other 2022-0 MD ONE-ACET 3-28 [facility] 00:00: n N 00 HYDROCOD DRUG Active Low Other 2022-0 MD ONE-ACET 3-28 [facility] 00:00: n N 00 HYDROCOD DRUG Active Low Other 2022-0 MD ONE-ACET 3-28 [facility] 00:00: n N 00 HYDROCOD DRUG Active Low Other 2022-0 MD ONE-ACET 3-28 [facility] 00:00: n N 00 HYDROCOD DRUG Active Low Other 2022-0 MD ONE-ACET 3-28 [facility] 00:00: n N 00 HYDROCOD DRUG Active Low Other 2022-0 MD ONE-ACET 3-28 [facility] 00:00: n N 00 HYDROCOD DRUG Active Low Other 2022-0 MD ONE-ACET 3-28 [facility] 00:00: n N 00 HYDROCOD DRUG Active Low Other 2022-0 MD ONE-ACET 3-28 [facility] 00:00: n N 00 HYDROCOD DRUG Active Low Other 2022-0 MD ONE-ACET 3-28 [facility] 00:00: n N 00 HYDROCOD DRUG Active Low Other 2022-0 MD ONE-ACET 3-28 [facility] 00:00: n N 00 HYDROCOD DRUG Active Low Other 2022-0 MD ONE-ACET 3-28 [facility] 00:00: n N 00 HYDROCOD DRUG Active Low Other 2022-0 MD ONE-ACET 3-28 [facility] 00:00: n N 00 HYDROCOD DRUG Active Low Other 2022-0 MD ONE-ACET 3-28 [facility] 00:00: n N 00 HYDROCOD DRUG Active Low Other 2022-0 MD ONE-ACET 3-28 [facility] 00:00: n N 00 HYDROCOD DRUG Active Low Other 2022-0 MD ONE-ACET 3-28 [facility] 00:00: n N 00 HYDROCOD DRUG Active Low Other 2022-0 MD ONE-ACET 3-28 [facility] 00:00: n N 00 HYDROCOD DRUG Active Low Other 2022-0 MD ONE-ACET 3-28 [facility] 00:00: n N 00 HYDROCOD DRUG Active Low Other 2022-0 MD ONE-ACET 3-28 [facility] 00:00: n N 00 HYDROCOD DRUG Active Low Other 2022-0 MD ONE-ACET 3-28 [facility] 00:00: n N 00 HYDROCOD DRUG Active Low Other 2022-0 MD ONE-ACET 3-28 [facility] 00:00: n N 00 HYDROCOD DRUG Active Low Other 2022-0 MD ONE-ACET 3-28 [facility] 00:00: n N 00 HYDROCOD DRUG Active Low Other 2022-0 MD ONE-ACET 3-28 [facility] 00:00: n N 00 HYDROCOD DRUG Active Low Other 2022-0 MD ONE-ACET 3-28 [facility] 00:00: n N 00 HYDROCOD DRUG Active Low Other 2022-0 MD ONE-ACET 3-28 [facility] 00:00: n N 00 HYDROCOD DRUG Active Low Other 2022-0 MD ONE-ACET 3-28 [facility] 00:00: n N 00 HYDROCOD DRUG Active Low Other 2022-0 MD ONE-ACET 3-28 [facility] 00:00: n N 00 HYDROCOD DRUG Active Low Other 2022-0 MD ONE-ACET 3-28 [facility] 00:00: n N 00 HYDROCOD DRUG Active Low Other 2022-0 MD ONE-ACET 3-28 [facility] 00:00: n N 00 HYDROCOD DRUG Active Low Other 2022-0 MD ONE-ACET 3-28 [facility] 00:00: n N 00 HYDROCOD DRUG Active Low Other 2022-0 MD ONE-ACET 3-28 [facility] 00:00: n N 00 HYDROCOD DRUG Active Low Other 2022-0 MD ONE-ACET 3-28 [facility] 00:00: n N 00 HYDROCOD DRUG Active Low Other 2022-0 MD ONE-ACET 3-28 [facility] 00:00: n N 00 HYDROCOD DRUG Active Low Other 2022-0 MD ONE-ACET 3-28 [facility] 00:00: n N 00 HYDROCOD DRUG Active Low Other 2022-0 MD ONE-ACET 3-28 [facility] 00:00: n N 00 HYDROCOD DRUG Active Low Other 2022-0 MD ONE-ACET 3-28 [facility] 00:00: n N 00 HYDROCOD DRUG Active Low Other 2022-0 MD ONE-ACET 3-28 [facility] 00:00: n N 00 HYDROCOD DRUG Active Low Other 2022-0 MD ONE-ACET 3-28 [facility] 00:00: n N 00 HYDROCOD DRUG Active Low Other 2022-0 MD ONE-ACET 3-28 [facility] 00:00: n N 00 HYDROCOD DRUG Active Low Other 2022-0 MD ONE-ACET 3-28 [facility] 00:00: n N 00 HYDROCOD DRUG Active Low Other 2022-0 MD ONE-ACET 3-28 [facility] 00:00: n N 00 HYDROCOD DRUG Active Low Other 2022-0 MD ONE-ACET 3-28 [facility] 00:00: n N 00 HYDROCOD DRUG Active Low Other 2022-0 MD ONE-ACET 3-28 [facility] 00:00: n N 00 HYDROCOD DRUG Active Low Other 2022-0 MD ONE-ACET 3-28 [facility] 00:00: n N 00 HYDROCOD DRUG Active Low Other 2022-0 MD ONE-ACET 3-28 [facility] 00:00: n N 00 HYDROCOD DRUG Active Low Other 2022-0 MD ONE-ACET 3-28 [facility] 00:00: n N 00 HYDROCOD DRUG Active Low Other 2022-0 MD ONE-ACET 3-28 [facility] 00:00: n N 00 HYDROCOD DRUG Active Low Other 2022-0 MD ONE-ACET 3-28 [facility] 00:00: n N 00 HYDROCOD DRUG Active Low Other 2022-0 MD ONE-ACET 3-28 [facility] 00:00: n N 00 HYDROCOD DRUG Active Low Other 2022-0 MD ONE-ACET 3-28 [facility] 00:00: n N 00 HYDROCOD DRUG Active Low Other 2022-0 MD ONE-ACET 3-28 [facility] 00:00: n N 00 HYDROCOD DRUG Active Low Other 2022-0 MD ONE-ACET 3-28 [facility] 00:00: n N 00 HYDROCOD DRUG Active Low Other 2022-0 MD ONE-ACET 3-28 [facility] 00:00: n N 00 HYDROCOD DRUG Active Low Other 2022-0 MD ONE-ACET 3-28 [facility] 00:00: n N 00 HYDROCOD DRUG Active Low Other 2022-0 MD ONE-ACET 3-28 [facility] 00:00: n N 00 HYDROCOD DRUG Active Low Other 2022-0 MD ONE-ACET 3-28 [facility] 00:00: n N 00 HYDROCOD DRUG Active Low Other 2022-0 MD ONE-ACET 3-28 [facility] 00:00: n N 00 HYDROCOD DRUG Active Low Other 2022-0 MD ONE-ACET 3-28 [facility] 00:00: n N 00 HYDROCOD DRUG Active Low Other 2022-0 MD ONE-ACET 3-28 [facility] 00:00: n N 00 HYDROCOD DRUG Active Low Other 2022-0 MD ONE-ACET 3-28 [facility] 00:00: n N 00 HYDROCOD DRUG Active Low Other 2022-0 MD ONE-ACET 3-28 [facility] 00:00: n N 00 HYDROCOD DRUG Active Low Other 2022-0 MD ONE-ACET 3-28 [facility] 00:00: n N 00 HYDROCOD DRUG Active Low Other 2022-0 MD ONE-ACET 3-28 [facility] 00:00: n N 00 HYDROCOD DRUG Active Low Other 2022-0 MD ONE-ACET 3-28 [facility] 00:00: n N 00 HYDROCOD DRUG Active Low Other 2022-0 MD ONE-ACET 3-28 Anderso AMINOPHE 00:00: n N 00 HYDROCOD DRUG Active Low Other 2022-0 MD ONE-ACET 3-28 Anderso AMINOPHE 00:00: n N 00 HYDROCOD DRUG Active Low Other 2022-0 MD ONE-ACET 3-28 Anderso AMINOPHE 00:00: n N 00 HYDROCOD DRUG Active Low Other 2022-0 MD ONE-ACET 3-28 Anderso AMINOPHE 00:00: n N 00 HYDROCOD DRUG Active Low Other 2022-0 MD ONE-ACET 3-28 Anderso AMINOPHE 00:00: n N 00 HYDROCOD DRUG Active Low Other 2022-0 MD ONE-ACET 3-28 Anderso AMINOPHE 00:00: n N 00 HYDROCOD DRUG Active Low Other 2022-0 MD ONE-ACET 3-28 Anderso AMINOPHE 00:00: n N 00 HYDROCOD DRUG Active Low Other 2022-0 MD ONE-ACET 3-28 Anderso AMINOPHE 00:00: n N 00 HYDROCOD DRUG Active Low Other 2022-0 MD ONE-ACET 3-28 Anderso AMINOPHE 00:00: n N 00 HYDROCOD DRUG Active Low Other 2022-0 MD ONE-ACET 3-28 Anderso AMINOPHE 00:00: n N 00 HYDROCOD DRUG Active Low Other 2022-0 MD ONE-ACET 3-28 Anderso AMINOPHE 00:00: n N 00 HYDROCOD DRUG Active Low Other 2022-0 MD ONE-ACET 3-28 Anderso AMINOPHE 00:00: n N 00 HYDROCOD DRUG Active Low Other 2022-0 MD ONE-ACET 3-28 Anderso AMINOPHE 00:00: n N 00 HYDROCOD DRUG Active Low Other 2022-0 MD ONE-ACET 3-28 Anderso AMINOPHE 00:00: n N 00 HYDROCOD DRUG Active Low Other 2022-0 MD ONE-ACET 3-28 Anderso AMINOPHE 00:00: n N 00 HYDROCOD DRUG Active Low Other 2022-0 MD ONE-ACET 3-28 Anderso AMINOPHE 00:00: n N 00 HYDROCOD DRUG Active Low Other 2022-0 MD ONE-ACET 3-28 Anderso AMINOPHE 00:00: n N 00 HYDROCOD DRUG Active Low Other 2022-0 MD ONE-ACET 3-28 Anderso AMINOPHE 00:00: n N 00 HYDROCOD DRUG Active Low Other 2022-0 MD ONE-ACET 3-28 Anderso AMINOPHE 00:00: n N 00 HYDROCOD DRUG Active Low Other 2022-0 MD ONE-ACET 3-28 Anderso AMINOPHE 00:00: n N 00 HYDROCOD DRUG Active Low Other 2022-0 MD ONE-ACET 3-28 Anderso AMINOPHE 00:00: n N 00 HYDROCOD DRUG Active Low Other 2022-0 MD ONE-ACET 3-28 Anderso AMINOPHE 00:00: n N 00 HYDROCOD DRUG Active Low Other 2022-0 MD ONE-ACET 3-28 Anderso AMINOPHE 00:00: n N 00 HYDROCOD DRUG Active Low Other 2022-0 MD ONE-ACET 3-28 Anderso AMINOPHE 00:00: n N 00 HYDROCOD DRUG Active Low Other 2022-0 MD ONE-ACET 3-28 Anderso AMINOPHE 00:00: n N 00 HYDROCOD DRUG Active Low Other 2022-0 MD ONE-ACET 3-28 Anderso AMINOPHE 00:00: n N 00 HYDROCOD DRUG Active Low Other 2022-0 MD ONE-ACET 3-28 Anderso AMINOPHE 00:00: n N 00 HYDROCOD DRUG Active Low Other 2022-0 MD ONE-ACET 3-28 Anderso AMINOPHE 00:00: n N 00 HYDROCOD DRUG Active Low Other 2022-0 MD ONE-ACET 3-28 Anderso AMINOPHE 00:00: n N 00 HYDROCOD DRUG Active Low Other 2022-0 MD ONE-ACET 3-28 Anderso AMINOPHE 00:00: n N 00 HYDROCOD DRUG Active Low Other 2022-0 MD ONE-ACET 3-28 Anderso AMINOPHE 00:00: n N 00 HYDROCOD DRUG Active Low Other 2022-0 MD ONE-ACET 3-28 Anderso AMINOPHE 00:00: n N 00 HYDROCOD DRUG Active Low Other 2022-0 MD ONE-ACET 3-28 Anderso AMINOPHE 00:00: n N 00 HYDROCOD DRUG Active Low Other 2022-0 MD ONE-ACET 3-28 Anderso AMINOPHE 00:00: n N 00 HYDROCOD DRUG Active Low Other 2022-0 MD ONE-ACET 3-28 Anderso AMINOPHE 00:00: n N 00 HYDROCOD DRUG Active Low Other 2022-0 MD ONE-ACET 3-28 Anderso AMINOPHE 00:00: n N 00 HYDROCOD DRUG Active Low Other 2022-0 MD ONE-ACET 3-28 Anderso AMINOPHE 00:00: n N 00 HYDROCOD DRUG Active Low Other 2022-0 MD ONE-ACET 3-28 Anderso AMINOPHE 00:00: n N 00 HYDROCOD DRUG Active Low Other 2022-0 MD ONE-ACET 3-28 Anderso AMINOPHE 00:00: n N 00 HYDROCOD DRUG Active Low Other 2022-0 MD ONE-ACET 3-28 Anderso AMINOPHE 00:00: n N 00 HYDROCOD DRUG Active Low Other 2022-0 MD ONE-ACET 3-28 Anderso AMINOPHE 00:00: n N 00 HYDROCOD DRUG Active Low Other 2022-0 MD ONE-ACET 3-28 Anderso AMINOPHE 00:00: n N 00 HYDROCOD DRUG Active Low Other 2022-0 MD ONE-ACET 3-28 [facility] 00:00: n N 00 HYDROCOD DRUG Active Low Other 2022-0 MD ONE-ACET 3-28 [facility] 00:00: n N 00 HYDROCOD DRUG Active Low Other 2022-0 MD ONE-ACET 3-28 [facility] 00:00: n N 00 HYDROCOD DRUG Active Low Other 2022-0 MD ONE-ACET 3-28 [facility] 00:00: n N 00 HYDROCOD DRUG Active Low Other 2022-0 MD ONE-ACET 3-28 [facility] 00:00: n N 00 HYDROCOD DRUG Active Low Other 2022-0 MD ONE-ACET 3-28 [facility] 00:00: n N 00 HYDROCOD DRUG Active Low Other 2022-0 MD ONE-ACET 3-28 [facility] 00:00: n N 00 HYDROCOD DRUG Active Low Other 2022-0 MD ONE-ACET 3-28 [facility] 00:00: n N 00 HYDROCOD DRUG Active Low Other 2022-0 MD ONE-ACET 3-28 [facility] 00:00: n N 00 HYDROCOD DRUG Active Low Other 2022-0 MD ONE-ACET 3-28 [facility] 00:00: n N 00 HYDROCOD DRUG Active Low Other 2022-0 MD ONE-ACET 3-28 [facility] 00:00: n N 00 HYDROCOD DRUG Active Low Other 2022-0 MD ONE-ACET 3-28 [facility] 00:00: n N 00 HYDROCOD DRUG Active Low Other 2022-0 MD ONE-ACET 3-28 [facility] 00:00: n N 00 HYDROCOD DRUG Active Low Other 2022-0 MD ONE-ACET 3-28 [facility] 00:00: n N 00 HYDROCOD DRUG Active Low Other 2022-0 MD ONE-ACET 3-28 [facility] 00:00: n N 00 HYDROCOD DRUG Active Low Other 2022-0 MD ONE-ACET 3-28 [facility] 00:00: n N 00 HYDROCOD DRUG Active Low Other 2022-0 MD ONE-ACET 3-28 [facility] 00:00: n N 00 HYDROCOD DRUG Active Low Other 2022-0 MD ONE-ACET 3-28 [facility] 00:00: n N 00 HYDROCOD DRUG Active Low Other 2022-0 MD ONE-ACET 3-28 [facility] 00:00: n N 00 HYDROCOD DRUG Active Low Other 2022-0 MD ONE-ACET 3-28 [facility] 00:00: n N 00 HYDROCOD DRUG Active Low Other 2022-0 MD ONE-ACET 3-28 [facility] 00:00: n N 00 HYDROCOD DRUG Active Low Other 2022-0 MD ONE-ACET 3-28 [facility] 00:00: n N 00 HYDROCOD DRUG Active Low Other 2022-0 MD ONE-ACET 3-28 [facility] 00:00: n N 00 HYDROCOD DRUG Active Low Other 2022-0 MD ONE-ACET 3-28 [facility] 00:00: n N 00 HYDROCOD DRUG Active Low Other 2022-0 MD ONE-ACET 3-28 [facility] 00:00: n N 00 HYDROCOD DRUG Active Low Other 2022-0 MD ONE-ACET 3-28 [facility] 00:00: n N 00 HYDROCOD DRUG Active Low Other 2022-0 MD ONE-ACET 3-28 [facility] 00:00: n N 00 HYDROCOD DRUG Active Low Other 2022-0 MD ONE-ACET 3-28 [facility] 00:00: n N 00 HYDROCOD DRUG Active Low Other 2022-0 MD ONE-ACET 3-28 [facility] 00:00: n N 00 HYDROCOD DRUG Active Low Other 2022-0 MD ONE-ACET 3-28 [facility] 00:00: n N 00 HYDROCOD DRUG Active Low Other 2022-0 MD ONE-ACET 3-28 [facility] 00:00: n N 00 HYDROCOD DRUG Active Low Other 2022-0 MD ONE-ACET 3-28 [facility] 00:00: n N 00 HYDROCOD DRUG Active Low Other 2022-0 MD ONE-ACET 3-28 [facility] 00:00: n N 00 HYDROCOD DRUG Active Low Other 2022-0 MD ONE-ACET 3-28 [facility] 00:00: n N 00 HYDROCOD DRUG Active Low Other 2022-0 MD ONE-ACET 3-28 [facility] 00:00: n N 00 HYDROCOD DRUG Active Low Other 2022-0 MD ONE-ACET 3-28 [facility] 00:00: n N 00 HYDROCOD DRUG Active Low Other 2022-0 MD ONE-ACET 3-28 [facility] 00:00: n N 00 HYDROCOD DRUG Active Low Other 2022-0 MD ONE-ACET 3-28 [facility] 00:00: n N 00 HYDROCOD DRUG Active Low Other 2022-0 MD ONE-ACET 3-28 [facility] 00:00: n N 00 HYDROCOD DRUG Active Low Other 2022-0 MD ONE-ACET 3-28 [facility] 00:00: n N 00 HYDROCOD DRUG Active Low Other 2022-0 MD ONE-ACET 3-28 [facility] 00:00: n N 00 HYDROCOD DRUG Active Low Other 2022-0 MD ONE-ACET 3-28 [facility] 00:00: n N 00 HYDROCOD DRUG Active Low Other 2022-0 MD ONE-ACET 3-28 [facility] 00:00: n N 00 HYDROCOD DRUG Active Low Other 2022-0 MD ONE-ACET 3-28 [facility] 00:00: n N 00 HYDROCOD DRUG Active Low Other 2022-0 MD ONE-ACET 3-28 [facility] 00:00: n N 00 HYDROCOD DRUG Active Low Other 2022-0 MD ONE-ACET 3-28 [facility] 00:00: n N 00 HYDROCOD DRUG Active Low Other 2022-0 MD ONE-ACET 3-28 [facility] 00:00: n N 00 HYDROCOD DRUG Active Low Other 2022-0 MD ONE-ACET 3-28 [facility] 00:00: n N 00 HYDROCOD DRUG Active Low Other 2022-0 MD ONE-ACET 3-28 [facility] 00:00: n N 00 HYDROCOD DRUG Active Low Other 2022-0 MD ONE-ACET 3-28 [facility] 00:00: n N 00 HYDROCOD DRUG Active Low Other 2022-0 MD ONE-ACET 3-28 [facility] 00:00: n N 00 HYDROCOD DRUG Active Low Other 2022-0 MD ONE-ACET 3-28 [facility] 00:00: n N 00 HYDROCOD DRUG Active Low Other 2022-0 MD ONE-ACET 3-28 [facility] 00:00: n N 00 HYDROCOD DRUG Active Low Other 2022-0 MD ONE-ACET 3-28 [facility] 00:00: n N 00 HYDROCOD DRUG Active Low Other 2022-0 MD ONE-ACET 3-28 [facility] 00:00: n N 00 HYDROCOD DRUG Active Low Other 2022-0 MD ONE-ACET 3-28 [facility] 00:00: n N 00 HYDROCOD DRUG Active Low Other 2022-0 MD ONE-ACET 3-28 [facility] 00:00: n N 00 HYDROCOD DRUG Active Low Other 2022-0 MD ONE-ACET 3-28 [facility] 00:00: n N 00 HYDROCOD DRUG Active Low Other 2022-0 MD ONE-ACET 3-28 [facility] 00:00: n N 00 HYDROCOD DRUG Active Low Other 2022-0 MD ONE-ACET 3-28 [facility] 00:00: n N 00 HYDROCOD DRUG Active Low Other 2022-0 MD ONE-ACET 3-28 [facility] 00:00: n N 00 HYDROCOD DRUG Active Low Other 2022-0 MD ONE-ACET 3-28 [facility] 00:00: n N 00 HYDROCOD DRUG Active Low Other 2022-0 MD ONE-ACET 3-28 [facility] 00:00: n N 00 HYDROCOD DRUG Active Low Other 2022-0 MD ONE-ACET 3-28 [facility] 00:00: n N 00 HYDROCOD DRUG Active Low Other 2022-0 MD ONE-ACET 3-28 [facility] 00:00: n N 00 HYDROCOD DRUG Active Low Other 2022-0 MD ONE-ACET 3-28 [facility] 00:00: n N 00 HYDROCOD DRUG Active Low Other 2022-0 MD ONE-ACET 3-28 [facility] 00:00: n N 00 HYDROCOD DRUG Active Low Other 2022-0 MD ONE-ACET 3-28 [facility] 00:00: n N 00 HYDROCOD DRUG Active Low Other 2022-0 MD ONE-ACET 3-28 [facility] 00:00: n N 00 HYDROCOD DRUG Active Low Other 2022-0 MD ONE-ACET 3-28 [facility] 00:00: n N 00 HYDROCOD DRUG Active Low Other 2022-0 MD ONE-ACET 3-28 [facility] 00:00: n N 00 HYDROCOD DRUG Active Low Other 2022-0 MD ONE-ACET 3-28 [facility] 00:00: n N 00 HYDROCOD DRUG Active Low Other 2022-0 MD ONE-ACET 3-28 [facility] 00:00: n N 00 HYDROCOD DRUG Active Low Other 2022-0 MD ONE-ACET 3-28 [facility] 00:00: n N 00 HYDROCOD DRUG Active Low Other 2022-0 MD ONE-ACET 3-28 [facility] 00:00: n N 00 HYDROCOD DRUG Active Low Other 2022-0 MD ONE-ACET 3-28 [facility] 00:00: n N 00 HYDROCOD DRUG Active Low Other 2022-0 MD ONE-ACET 3-28 [facility] 00:00: n N 00 HYDROCOD DRUG Active Low Other 2022-0 MD ONE-ACET 3-28 [facility] 00:00: n N 00 HYDROCOD DRUG Active Low Other 2022-0 MD ONE-ACET 3-28 [facility] 00:00: n N 00 HYDROCOD DRUG Active Low Other 2022-0 MD ONE-ACET 3-28 [facility] 00:00: n N 00 HYDROCOD DRUG Active Low Other 2022-0 MD ONE-ACET 3-28 [facility] 00:00: n N 00 HYDROCOD DRUG Active Low Other 2022-0 MD ONE-ACET 3-28 [facility] 00:00: n N 00 HYDROCOD DRUG Active Low Other 2022-0 MD ONE-ACET 3-28 [facility] 00:00: n N 00 HYDROCOD DRUG Active Low Other 2022-0 MD ONE-ACET 3-28 [facility] 00:00: n N 00 HYDROCOD DRUG Active Low Other 2022-0 MD ONE-ACET 3-28 [facility] 00:00: n N 00 HYDROCOD DRUG Active Low Other 2022-0 MD ONE-ACET 3-28 [facility] 00:00: n N 00 HYDROCOD DRUG Active Low Other 2022-0 MD ONE-ACET 3-28 [facility] 00:00: n N 00 HYDROCOD DRUG Active Low Other 2022-0 MD ONE-ACET 3-28 [facility] 00:00: n N 00 HYDROCOD DRUG Active Low Other 2022-0 MD ONE-ACET 3-28 [facility] 00:00: n N 00 HYDROCOD DRUG Active Low Other 2022-0 MD ONE-ACET 3-28 [facility] 00:00: n N 00 HYDROCOD DRUG Active Low Other 2022-0 MD ONE-ACET 3-28 [facility] 00:00: n N 00 HYDROCOD DRUG Active Low Other 2022-0 MD ONE-ACET 3-28 [facility] 00:00: n N 00 HYDROCOD DRUG Active Low Other 2022-0 MD ONE-ACET 3-28 [facility] 00:00: n N 00 HYDROCOD DRUG Active Low Other 2022-0 MD ONE-ACET 3-28 [facility] 00:00: n N 00 HYDROCOD DRUG Active Low Other 2022-0 MD ONE-ACET 3-28 [facility] 00:00: n N 00 HYDROCOD DRUG Active Low Other 2022-0 MD ONE-ACET 3-28 [facility] 00:00: n N 00 HYDROCOD DRUG Active Low Other 2022-0 MD ONE-ACET 3-28 [facility] 00:00: n N 00 HYDROCOD DRUG Active Low Other 2022-0 MD ONE-ACET 3-28 [facility] 00:00: n N 00 HYDROCOD DRUG Active Low Other 2022-0 MD ONE-ACET 3-28 [facility] 00:00: n N 00 HYDROCOD DRUG Active Low Other 2022-0 MD ONE-ACET 3-28 [facility] 00:00: n N 00 HYDROCOD DRUG Active Low Other 2022-0 MD ONE-ACET 3-28 [facility] 00:00: n N 00 HYDROCOD DRUG Active Low Other 2022-0 MD ONE-ACET 3-28 [facility] 00:00: n N 00 HYDROCOD DRUG Active Low Other 2022-0 MD ONE-ACET 3-28 [facility] 00:00: n N 00 HYDROCOD DRUG Active Low Other 2022-0 MD ONE-ACET 3-28 [facility] 00:00: n N 00 HYDROCOD DRUG Active Low Other 2022-0 MD ONE-ACET 3-28 [facility] 00:00: n N 00 HYDROCOD DRUG Active Low Other 2022-0 MD ONE-ACET 3-28 [facility] 00:00: n N 00 HYDROCOD DRUG Active Low Other 2022-0 MD ONE-ACET 3-28 [facility] 00:00: n N 00 HYDROCOD DRUG Active Low Other 2022-0 MD ONE-ACET 3-28 [facility] 00:00: n N 00 HYDROCOD DRUG Active Low Other 2022-0 MD ONE-ACET 3-28 [facility] 00:00: n N 00 HYDROCOD DRUG Active Low Other 2022-0 MD ONE-ACET 3-28 [facility] 00:00: n N 00 HYDROCOD DRUG Active Low Other 2022-0 MD ONE-ACET 3-28 [facility] 00:00: n N 00 HYDROCOD DRUG Active Low Other 2022-0 MD ONE-ACET 3-28 [facility] 00:00: n N 00 HYDROCOD DRUG Active Low Other 2022-0 MD ONE-ACET 3-28 [facility] 00:00: n N 00 HYDROCOD DRUG Active Low Other 2022-0 MD ONE-ACET 3-28 [facility] 00:00: n N 00 HYDROCOD DRUG Active Low Other 2022-0 MD ONE-ACET 3-28 [facility] 00:00: n N 00 HYDROCOD DRUG Active Low Other 2022-0 MD ONE-ACET 3-28 [facility] 00:00: n N 00 HYDROCOD DRUG Active Low Other 2022-0 MD ONE-ACET 3-28 [facility] 00:00: n N 00 HYDROCOD DRUG Active Low Other 2022-0 MD ONE-ACET 3-28 [facility] 00:00: n N 00 HYDROCOD DRUG Active Low Other 2022-0 MD ONE-ACET 3-28 [facility] 00:00: n N 00 HYDROCOD DRUG Active Low Other 2022-0 MD ONE-ACET 3-28 [facility] 00:00: n N 00 HYDROCOD DRUG Active Low Other 2022-0 MD ONE-ACET 3-28 [facility] 00:00: n N 00 HYDROCOD DRUG Active Low Other 2022-0 MD ONE-ACET 3-28 [facility] 00:00: n N 00 HYDROCOD DRUG Active Low Other 2022-0 MD ONE-ACET 3-28 [facility] 00:00: n N 00 HYDROCOD DRUG Active Low Other 2022-0 MD ONE-ACET 3-28 [facility] 00:00: n N 00 HYDROCOD DRUG Active Low Other 2022-0 MD ONE-ACET 3-28 [facility] 00:00: n N 00 HYDROCOD DRUG Active Low Other 2022-0 MD ONE-ACET 3-28 [facility] 00:00: n N 00 HYDROCOD DRUG Active Low Other 2022-0 MD ONE-ACET 3-28 [facility] 00:00: n N 00 HYDROCOD DRUG Active Low Other 2022-0 MD ONE-ACET 3-28 [facility] 00:00: n N 00 HYDROCOD DRUG Active Low Other 2022-0 MD ONE-ACET 3-28 [facility] 00:00: n N 00 HYDROCOD DRUG Active Low Other 2022-0 MD ONE-ACET 3-28 [facility] 00:00: n N 00 HYDROCOD DRUG Active Low Other 2022-0 MD ONE-ACET 3-28 [facility] 00:00: n N 00 HYDROCOD DRUG Active Low Other 2022-0 MD ONE-ACET 3-28 [facility] 00:00: n N 00 HYDROCOD DRUG Active Low Other 2022-0 MD ONE-ACET 3-28 [facility] 00:00: n N 00 HYDROCOD DRUG Active Low Other 2022-0 MD ONE-ACET 3-28 [facility] 00:00: n N 00 HYDROCOD DRUG Active Low Other 2022-0 MD ONE-ACET 3-28 [facility] 00:00: n N 00 HYDROCOD DRUG Active Low Other 2022-0 MD ONE-ACET 3-28 [facility] 00:00: n N 00 HYDROCOD DRUG Active Low Other 2022-0 MD ONE-ACET 3-28 [facility] 00:00: n N 00 HYDROCOD DRUG Active Low Other 2022-0 MD ONE-ACET 3-28 [facility] 00:00: n N 00 HYDROCOD DRUG Active Low Other 2022-0 MD ONE-ACET 3-28 [facility] 00:00: n N 00 HYDROCOD DRUG Active Low Other 2022-0 MD ONE-ACET 3-28 [facility] 00:00: n N 00 HYDROCOD DRUG Active Low Other 2022-0 MD ONE-ACET 3-28 [facility] 00:00: n N 00 HYDROCOD DRUG Active Low Other 2022-0 MD ONE-ACET 3-28 [facility] 00:00: n N 00 HYDROCOD DRUG Active Low Other 2022-0 MD ONE-ACET 3-28 [facility] 00:00: n N 00 HYDROCOD DRUG Active Low Other 2022-0 MD ONE-ACET 3-28 [facility] 00:00: n N 00 HYDROCOD DRUG Active Low Other 2022-0 MD ONE-ACET 3-28 [facility] 00:00: n N 00 HYDROCOD DRUG Active Low Other 2022-0 MD ONE-ACET 3-28 [facility] 00:00: n N 00 HYDROCOD DRUG Active Low Other 2022-0 MD ONE-ACET 3-28 [facility] 00:00: n N 00 HYDROCOD DRUG Active Low Other 2022-0 MD ONE-ACET 3-28 [facility] 00:00: n N 00 HYDROCOD DRUG Active Low Other 2022-0 MD ONE-ACET 3-28 [facility] 00:00: n N 00 HYDROCOD DRUG Active Low Other 2022-0 MD ONE-ACET 3-28 [facility] 00:00: n N 00 HYDROCOD DRUG Active Low Other 2022-0 MD ONE-ACET 3-28 [facility] 00:00: n N 00 HYDROCOD DRUG Active Low Other 2022-0 MD ONE-ACET 3-28 [facility] 00:00: n N 00 HYDROCOD DRUG Active Low Other 2022-0 MD ONE-ACET 3-28 [facility] 00:00: n N 00 HYDROCOD DRUG Active Low Other 2022-0 MD ONE-ACET 3-28 [facility] 00:00: n N 00 HYDROCOD DRUG Active Low Other 2022-0 MD ONE-ACET 3-28 [facility] 00:00: n N 00 HYDROCOD DRUG Active Low Other 2022-0 MD ONE-ACET 3-28 [facility] 00:00: n N 00 HYDROCOD DRUG Active Low Other 2022-0 MD ONE-ACET 3-28 [facility] 00:00: n N 00 HYDROCOD DRUG Active Low Other 2022-0 MD ONE-ACET 3-28 [facility] 00:00: n N 00 HYDROCOD DRUG Active Low Other 2022-0 MD ONE-ACET 3-28 [facility] 00:00: n N 00 HYDROCOD DRUG Active Low Other 2022-0 MD ONE-ACET 3-28 [facility] 00:00: n N 00 HYDROCOD DRUG Active Low Other 2022-0 MD ONE-ACET 3-28 [facility] 00:00: n N 00 HYDROCOD DRUG Active Low Other 2022-0 MD ONE-ACET 3-28 [facility] 00:00: n N 00 HYDROCOD DRUG Active Low Other 2022-0 MD ONE-ACET 3-28 [facility] 00:00: n N 00 HYDROCOD DRUG Active Low Other 2022-0 MD ONE-ACET 3-28 [facility] 00:00: n N 00 HYDROCOD DRUG Active Low Other 2022-0 MD ONE-ACET 3-28 [facility] 00:00: n N 00 HYDROCOD DRUG Active Low Other 2022-0 MD ONE-ACET 3-28 [facility] 00:00: n N 00 HYDROCOD DRUG Active Low Other 2022-0 MD ONE-ACET 3-28 [facility] 00:00: n N 00 HYDROCOD DRUG Active Low Other 2022-0 MD ONE-ACET 3-28 [facility] 00:00: n N 00 HYDROCOD DRUG Active Low Other 2022-0 MD ONE-ACET 3-28 [facility] 00:00: n N 00 HYDROCOD DRUG Active Low Other 2022-0 MD ONE-ACET 3-28 [facility] 00:00: n N 00 HYDROCOD DRUG Active Low Other 2022-0 MD ONE-ACET 3-28 [facility] 00:00: n N 00 HYDROCOD DRUG Active Low Other 2022-0 MD ONE-ACET 3-28 [facility] 00:00: n N 00 HYDROCOD DRUG Active Low Other 2022-0 MD ONE-ACET 3-28 [facility] 00:00: n N 00 HYDROCOD DRUG Active Low Other 2022-0 MD ONE-ACET 3-28 [facility] 00:00: n N 00 HYDROCOD DRUG Active Low Other 2022-0 MD ONE-ACET 3-28 [facility] 00:00: n N 00 HYDROCOD DRUG Active Low Other 2022-0 MD ONE-ACET 3-28 [facility] 00:00: n N 00 HYDROCOD DRUG Active Low Other 2022-0 MD ONE-ACET 3-28 [facility] 00:00: n N 00 HYDROCOD DRUG Active Low Other 2022-0 MD ONE-ACET 3-28 [facility] 00:00: n N 00 HYDROCOD DRUG Active Low Other 2022-0 MD ONE-ACET 3-28 [facility] 00:00: n N 00 HYDROCOD DRUG Active Low Other 2022-0 MD ONE-ACET 3-28 [facility] 00:00: n N 00 HYDROCOD DRUG Active Low Other 2022-0 MD ONE-ACET 3-28 [facility] 00:00: n N 00 HYDROCOD DRUG Active Low Other 2022-0 MD ONE-ACET 3-28 [facility] 00:00: n N 00 HYDROCOD DRUG Active Low Other 2022-0 MD ONE-ACET 3-28 [facility] 00:00: n N 00 HYDROCOD DRUG Active Low Other 2022-0 MD ONE-ACET 3-28 [facility] 00:00: n N 00 HYDROCOD DRUG Active Low Other 2022-0 MD ONE-ACET 3-28 [facility] 00:00: n N 00 HYDROCOD DRUG Active Low Other 2022-0 MD ONE-ACET 3-28 [facility] 00:00: n N 00 HYDROCOD DRUG Active Low Other 2022-0 MD ONE-ACET 3-28 [facility] 00:00: n N 00 HYDROCOD DRUG Active Low Other 2022-0 MD ONE-ACET 3-28 [facility] 00:00: n N 00 HYDROCOD DRUG Active Low Other 2022-0 MD ONE-ACET 3-28 [facility] 00:00: n N 00 HYDROCOD DRUG Active Low Other 2022-0 MD ONE-ACET 3-28 [facility] 00:00: n N 00 HYDROCOD DRUG Active Low Other 2022-0 MD ONE-ACET 3-28 [facility] 00:00: n N 00 HYDROCOD DRUG Active Low Other 2022-0 MD ONE-ACET 3-28 [facility] 00:00: n N 00 HYDROCOD DRUG Active Low Other 2022-0 MD ONE-ACET 3-28 [facility] 00:00: n N 00 HYDROCOD DRUG Active Low Other 2022-0 MD ONE-ACET 3-28 [facility] 00:00: n N 00 HYDROCOD DRUG Active Low Other 2022-0 MD ONE-ACET 3-28 [facility] 00:00: n N 00 HYDROCOD DRUG Active Low Other 2022-0 MD ONE-ACET 3-28 [facility] 00:00: n N 00 HYDROCOD DRUG Active Low Other 2022-0 MD ONE-ACET 3-28 [facility] 00:00: n N 00 HYDROCOD DRUG Active Low Other 2022-0 MD ONE-ACET 3-28 [facility] 00:00: n N 00 HYDROCOD DRUG Active Low Other 2022-0 MD ONE-ACET 3-28 [facility] 00:00: n N 00 HYDROCOD DRUG Active Low Other 2022-0 MD ONE-ACET 3-28 [facility] 00:00: n N 00 HYDROCOD DRUG Active Low Other 2022-0 MD ONE-ACET 3-28 [facility] 00:00: n N 00 HYDROCOD DRUG Active Low Other 2022-0 MD ONE-ACET 3-28 [facility] 00:00: n N 00 HYDROCOD DRUG Active Low Other 2022-0 MD ONE-ACET 3-28 [facility] 00:00: n N 00 HYDROCOD DRUG Active Low Other 2022-0 MD ONE-ACET 3-28 [facility] 00:00: n N 00 HYDROCOD DRUG Active Low Other 2022-0 MD ONE-ACET 3-28 [facility] 00:00: n N 00 HYDROCOD DRUG Active Low Other 2022-0 MD ONE-ACET 3-28 [facility] 00:00: n N 00 HYDROCOD DRUG Active Low Other 2022-0 MD ONE-ACET 3-28 [facility] 00:00: n N 00 HYDROCOD DRUG Active Low Other 2022-0 MD ONE-ACET 3-28 [facility] 00:00: n N 00 HYDROCOD DRUG Active Low Other 2022-0 MD ONE-ACET 3-28 [facility] 00:00: n N 00 HYDROCOD DRUG Active Low Other 2022-0 MD ONE-ACET 3-28 [facility] 00:00: n N 00 HYDROCOD DRUG Active Low Other 2022-0 MD ONE-ACET 3-28 [facility] 00:00: n N 00 HYDROCOD DRUG Active Low Other 2022-0 MD ONE-ACET 3-28 [facility] 00:00: n N 00 HYDROCOD DRUG Active Low Other 2022-0 MD ONE-ACET 3-28 [facility] 00:00: n N 00 HYDROCOD DRUG Active Low Other 2022-0 MD ONE-ACET 3-28 [facility] 00:00: n N 00 HYDROCOD DRUG Active Low Other 2022-0 MD ONE-ACET 3-28 [facility] 00:00: n N 00 HYDROCOD DRUG Active Low Other 2022-0 MD ONE-ACET 3-28 [facility] 00:00: n N 00 HYDROCOD DRUG Active Low Other 2022-0 MD ONE-ACET 3-28 [facility] 00:00: n N 00 HYDROCOD DRUG Active Low Other 2022-0 MD ONE-ACET 3-28 [facility] 00:00: n N 00 HYDROCOD DRUG Active Low Other 2022-0 MD ONE-ACET 3-28 [facility] 00:00: n N 00 HYDROCOD DRUG Active Low Other 2022-0 MD ONE-ACET 3-28 [facility] 00:00: n N 00 HYDROCOD DRUG Active Low Other 2022-0 MD ONE-ACET 3-28 [facility] 00:00: n N 00 HYDROCOD DRUG Active Low Other 2022-0 MD ONE-ACET 3-28 [facility] 00:00: n N 00 HYDROCOD DRUG Active Low Other 2022-0 MD ONE-ACET 3-28 [facility] 00:00: n N 00 HYDROCOD DRUG Active Low Other 2022-0 MD ONE-ACET 3-28 [facility] 00:00: n N 00 HYDROCOD DRUG Active Low Other 2022-0 MD ONE-ACET 3-28 [facility] 00:00: n N 00 HYDROCOD DRUG Active Low Other 2022-0 MD ONE-ACET 3-28 [facility] 00:00: n N 00 HYDROCOD DRUG Active Low Other 2022-0 MD ONE-ACET 3-28 [facility] 00:00: n N 00 HYDROCOD DRUG Active Low Other 2022-0 MD ONE-ACET 3-28 [facility] 00:00: n N 00 HYDROCOD DRUG Active Low Other 2022-0 MD ONE-ACET 3-28 [facility] 00:00: n N 00 HYDROCOD DRUG Active Low Other 2022-0 MD ONE-ACET 3-28 [facility] 00:00: n N 00 HYDROCOD DRUG Active Low Other 2022-0 MD ONE-ACET 3-28 [facility] 00:00: n N 00 HYDROCOD DRUG Active Low Other 2022-0 MD ONE-ACET 3-28 [facility] 00:00: n N 00 HYDROCOD DRUG Active Low Other 2022-0 MD ONE-ACET 3-28 [facility] 00:00: n N 00 HYDROCOD DRUG Active Low Other 2022-0 MD ONE-ACET 3-28 [facility] 00:00: n N 00 HYDROCOD DRUG Active Low Other 2022-0 MD ONE-ACET 3-28 [facility] 00:00: n N 00 HYDROCOD DRUG Active Low Other 2022-0 MD ONE-ACET 3-28 [facility] 00:00: n N 00 HYDROCOD DRUG Active Low Other 2022-0 MD ONE-ACET 3-28 [facility] 00:00: n N 00 HYDROCOD DRUG Active Low Other 2022-0 MD ONE-ACET 3-28 Anderso AMINOPHE 00:00: n N 00 HYDROCOD DRUG Active Low Other 2022-0 MD ONE-ACET 3-28 Anderso AMINOPHE 00:00: n N 00 HYDROCOD DRUG Active Low Other 2022-0 MD ONE-ACET 3-28 Anderso AMINOPHE 00:00: n N 00 HYDROCOD DRUG Active Low Other 2022-0 MD ONE-ACET 3-28 Anderso AMINOPHE 00:00: n N 00 HYDROCOD DRUG Active Low Other 2022-0 MD ONE-ACET 3-28 Anderso AMINOPHE 00:00: n N 00 HYDROCOD DRUG Active Low Other 2022-0 MD ONE-ACET 3-28 Anderso AMINOPHE 00:00: n N 00 HYDROCOD DRUG Active Low Other 2022-0 MD ONE-ACET 3-28 Anderso AMINOPHE 00:00: n N 00 HYDROCOD DRUG Active Low Other 2022-0 MD ONE-ACET 3-28 Anderso AMINOPHE 00:00: n N 00 HYDROCOD DRUG Active Low Other 2022-0 MD ONE-ACET 3-28 Anderso AMINOPHE 00:00: n N 00 HYDROCOD DRUG Active Low Other 2022-0 MD ONE-ACET 3-28 Anderso AMINOPHE 00:00: n N 00 HYDROCOD DRUG Active Low Other 2022-0 MD ONE-ACET 3-28 Anderso AMINOPHE 00:00: n N 00 HYDROCOD DRUG Active Low Other 2022-0 MD ONE-ACET 3-28 Anderso AMINOPHE 00:00: n N 00 HYDROCOD DRUG Active Low Other 2022-0 MD ONE-ACET 3-28 Anderso AMINOPHE 00:00: n N 00 HYDROCOD DRUG Active Low Other 2022-0 MD ONE-ACET 3-28 Anderso AMINOPHE 00:00: n N 00 HYDROCOD DRUG Active Low Other 2022-0 MD ONE-ACET 3-28 Anderso AMINOPHE 00:00: n N 00 HYDROCOD DRUG Active Low Other 2022-0 MD ONE-ACET 3-28 Anderso AMINOPHE 00:00: n N 00 HYDROCOD DRUG Active Low Other 2022-0 MD ONE-ACET 3-28 Anderso AMINOPHE 00:00: n N 00 HYDROCOD DRUG Active Low Other 2022-0 MD ONE-ACET 3-28 Anderso AMINOPHE 00:00: n N 00 HYDROCOD DRUG Active Low Other 2022-0 MD ONE-ACET 3-28 Anderso AMINOPHE 00:00: n N 00 HYDROCOD DRUG Active Low Other 2022-0 MD ONE-ACET 3-28 Anderso AMINOPHE 00:00: n N 00 HYDROCOD DRUG Active Low Other 2022-0 MD ONE-ACET 3-28 Anderso AMINOPHE 00:00: n N 00 HYDROCOD DRUG Active Low Other 2022-0 MD ONE-ACET 3-28 Anderso AMINOPHE 00:00: n N 00 HYDROCOD DRUG Active Low Other 2022-0 MD ONE-ACET 3-28 Anderso AMINOPHE 00:00: n N 00 HYDROCOD DRUG Active Low Other 2022-0 MD ONE-ACET 3-28 Anderso AMINOPHE 00:00: n N 00 HYDROCOD DRUG Active Low Other 2022-0 MD ONE-ACET 3-28 Anderso AMINOPHE 00:00: n N 00 HYDROCOD DRUG Active Low Other 2022-0 MD ONE-ACET 3-28 Anderso AMINOPHE 00:00: n N 00 HYDROCOD DRUG Active Low Other 2022-0 MD ONE-ACET 3-28 Anderso AMINOPHE 00:00: n N 00 HYDROCOD DRUG Active Low Other 2022-0 MD ONE-ACET 3-28 Anderso AMINOPHE 00:00: n N 00 HYDROCOD DRUG Active Low Other 2022-0 MD ONE-ACET 3-28 Anderso AMINOPHE 00:00: n N 00 HYDROCOD DRUG Active Low Other 2022-0 MD ONE-ACET 3-28 Anderso AMINOPHE 00:00: n N 00 HYDROCOD DRUG Active Low Other 2022-0 MD ONE-ACET 3-28 Anderso AMINOPHE 00:00: n N 00 HYDROCOD DRUG Active Low Other 2022-0 MD ONE-ACET 3-28 Anderso AMINOPHE 00:00: n N 00 HYDROCOD DRUG Active Low Other 2022-0 MD ONE-ACET 3-28 Anderso AMINOPHE 00:00: n N 00 HYDROCOD DRUG Active Low Other 2022-0 MD ONE-ACET 3-28 Anderso AMINOPHE 00:00: n N 00 HYDROCOD DRUG Active Low Other 2022-0 MD ONE-ACET 3-28 Anderso AMINOPHE 00:00: n N 00 HYDROCOD DRUG Active Low Other 2022-0 MD ONE-ACET 3-28 Anderso AMINOPHE 00:00: n N 00 HYDROCOD DRUG Active Low Other 2022-0 MD ONE-ACET 3-28 Anderso AMINOPHE 00:00: n N 00 HYDROCOD DRUG Active Low Other 2022-0 MD ONE-ACET 3-28 Anderso AMINOPHE 00:00: n N 00 HYDROCOD DRUG Active Low Other 2022-0 MD ONE-ACET 3-28 Anderso AMINOPHE 00:00: n N 00 HYDROCOD DRUG Active Low Other 2022-0 MD ONE-ACET 3-28 Anderso AMINOPHE 00:00: n N 00 HYDROCOD DRUG Active Low Other 2022-0 MD ONE-ACET 3-28 Anderso AMINOPHE 00:00: n N 00 HYDROCOD DRUG Active Low Other 2022-0 MD ONE-ACET 3-28 Anderso AMINOPHE 00:00: n N 00 HYDROCOD DRUG Active Low Other 2022-0 MD ONE-ACET 3-28 [facility] AMINOPHE 00:00: n N 00 HYDROCOD DRUG Active Low Other 2022-0 MD ONE-ACET 3-28 [facility] AMINOPHE 00:00: n N 00 HYDROCOD DRUG Active Low Other 2022-0 MD ONE-ACET 3-28 [facility] AMINOPHE 00:00: n N 00 HYDROCOD DRUG Active Low Other 2022-0 MD ONE-ACET 3-28 [facility] AMINOPHE 00:00: n N 00 HYDROCOD DRUG Active Low Other 2021-0 MD ONE-ACET 3-28 [facility] AMINOPHE 00:00: n N 00 HYDROCOD DRUG Active Low Other 2021-0 MD ONE-ACET 3-28 [facility] AMINOPHE 00:00: n N 00 HYDROCOD DRUG Active Low Other 2021-0 MD ONE-ACET 3-28 [facility] AMINOPHE 00:00: n N 00 HYDROCOD DRUG Active Low Other 2021-0 MD ONE-ACET 3-28 [facility] AMINOPHE 00:00: n N 00 HYDROCOD DRUG Active Low Other 2021-0 MD ONE-ACET 3-28 [facility] AMINOPHE 00:00: n N 00 HYDROCOD DRUG Active Low Other 2021-0 MD ONE-ACET 3-28 [facility] AMINOPHE 00:00: n N 00 HYDROCOD DRUG Active Low Other 2021-0 MD ONE-ACET 3-28 Anders[facility] AMINOPHE 00:00: n N 00 HYDROCOD DRUG Active Low Other 2021-0 MD ONE-ACET 3-28 Anders[facility] AMINOPHE 00:00: n N 00 HYDROCOD DRUG Active Low Other 2021-0 MD ONE-ACET 3-28 [facility] AMINOPHE 00:00: n N 00 HYDROCOD DRUG Active Low Other 2021-0 MD ONE-ACET 3-28 [facility] AMINOPHE 00:00: n N 00 HYDROCOD DRUG Active Low Other 2021-0 MD ONE-ACET 3-28 Anders[facility] AMINOPHE 00:00: n N 00 HYDROCOD DRUG Active Low Other 2021-0 MD ONE-ACET 3-28 Anders[facility] AMINOPHE 00:00: n N 00 HYDROCOD DRUG Active Low Other 2021-0 MD ONE-ACET 3-28 [facility] AMINOPHE 00:00: n N 00 HYDROCOD DRUG Active Low Other 2021-0 MD ONE-ACET 3-28 [facility] AMINOPHE 00:00: n N 00 Hydrocod Propensi Active Other (See Patient U nivers one-Acet ty to Comments) 3-28 refused ity of aminophe adverse 00:00: to take, [place] n reaction 00 [facility] Cancer to the [place] [facility]. HYDROCOD DRUG Active Low Other 2022-0 MD ONE-ACET 3-28 [facility] AMINOPHE 00:00: n N 00 HYDROCOD DRUG Active Low Other 2022-0 MD ONE-ACET 3-28 [facility] AMINOPHE 00:00: n N 00 HYDROCOD DRUG Active Low Other 2022-0 MD ONE-ACET 3-28 [facility] AMINOPHE 00:00: n N 00 HYDROCOD DRUG Active Low Other 2022-0 MD ONE-ACET 3-28 [facility] AMINOPHE 00:00: n N 00 HYDROCOD DRUG Active Low Other 2022-0 MD ONE-ACET 3-28 [facility] AMINOPHE 00:00: n N 00 HYDROCOD DRUG Active Low Other 2022-0 MD ONE-ACET 3-28 [facility] AMINOPHE 00:00: n N 00 HYDROCOD DRUG Active Low Other 2022-0 MD ONE-ACET 3-28 Anders[facility] AMINOPHE 00:00: n N 00 HYDROCOD DRUG Active Low Other 2022-0 MD ONE-ACET 3-28 [facility] AMINOPHE 00:00: n N 00 HYDROCOD DRUG Active Low Other 2022-0 MD ONE-ACET 3-28 [facility] AMINOPHE 00:00: n N 00 HYDROCOD DRUG Active Low Other 2022-0 MD ONE-ACET 3-28 [facility] AMINOPHE 00:00: n N 00 HYDROCOD DRUG Active Low Other 2022-0 MD ONE-ACET 3-28 Anders[facility] AMINOPHE 00:00: n N 00 HYDROCOD DRUG Active Low Other 2022-0 MD ONE-ACET 3-28 [facility] AMINOPHE 00:00: n N 00 HYDROCOD DRUG Active Low Other 2022-0 MD ONE-ACET 3-28 [facility] AMINOPHE 00:00: n N 00 HYDROCOD DRUG Active Low Other 2022-0 MD ONE-ACET 3-28 [facility] AMINOPHE 00:00: n N 00 HYDROCOD DRUG Active Low Other 2022-0 MD ONE-ACET 3-28 [facility] AMINOPHE 00:00: n N 00 HYDROCOD DRUG Active Low Other 2022-0 MD ONE-ACET 3-28 [facility] AMINOPHE 00:00: n N 00 HYDROCOD DRUG Active Low Other 2022-0 MD ONE-ACET 3-28 [facility] AMINOPHE 00:00: n N 00 HYDROCOD DRUG Active Low Other 2022-0 MD ONE-ACET 3-28 [facility] AMINOPHE 00:00: n N 00 HYDROCOD DRUG Active Low Other 2022-0 MD ONE-ACET 3-28 [facility] AMINOPHE 00:00: n N 00 HYDROCOD DRUG Active Low Other 2022-0 MD ONE-ACET 3-28 [facility] AMINOPHE 00:00: n N 00 HYDROCOD DRUG Active Low Other 2022-0 MD ONE-ACET 3-28 Anders[facility] AMINOPHE 00:00: n N 00 HYDROCOD DRUG Active Low Other 2022-0 MD ONE-ACET 3-28 [facility] AMINOPHE 00:00: n N 00 HYDROCOD DRUG Active Low Other 2022-0 MD ONE-ACET 3-28 [facility] AMINOPHE 00:00: n N 00 HYDROCOD DRUG Active Low Other 2022-0 MD ONE-ACET 3-28 [facility] AMINOPHE 00:00: n N 00 HYDROCOD DRUG Active Low Other 2022-0 MD ONE-ACET 3-28 [facility] AMINOPHE 00:00: n N 00 HYDROCOD DRUG Active Low Other 2022-0 MD ONE-ACET 3-28 Anders[facility] AMINOPHE 00:00: n N 00 HYDROCOD DRUG Active Low Other 2022-0 MD ONE-ACET 3-28 [facility] AMINOPHE 00:00: n N 00 HYDROCOD DRUG Active Low Other 2022-0 MD ONE-ACET 3-28 [facility] AMINOPHE 00:00: n N 00 HYDROCOD DRUG Active Low Other 2022-0 MD ONE-ACET 3-28 [facility] AMINOPHE 00:00: n N 00 HYDROCOD DRUG Active Low Other 2022-0 MD ONE-ACET 3-28 [facility] AMINOPHE 00:00: n N 00 HYDROCOD DRUG Active Low Other 2022-0 MD ONE-ACET 3-28 Anders[facility] AMINOPHE 00:00: n N 00 HYDROCOD DRUG Active Low Other 2022-0 MD ONE-ACET 3-28 [facility] AMINOPHE 00:00: n N 00 HYDROCOD DRUG Active Low Other 2022-0 MD ONE-ACET 3-28 [facility] AMINOPHE 00:00: n N 00 HYDROCOD DRUG Active Low Other 2022-0 MD ONE-ACET 3-28 [facility] AMINOPHE 00:00: n N 00 HYDROCOD DRUG Active Low Other 2022-0 MD ONE-ACET 3-28 [facility] AMINOPHE 00:00: n N 00 HYDROCOD DRUG Active Low Other 2022-0 MD ONE-ACET 3-28 [facility] AMINOPHE 00:00: n N 00 HYDROCOD DRUG Active Low Other 2022-0 MD ONE-ACET 3-28 [facility] AMINOPHE 00:00: n N 00 HYDROCOD DRUG Active Low Other 2022-0 MD ONE-ACET 3-28 [facility] AMINOPHE 00:00: n N 00 HYDROCOD DRUG Active Low Other 2022-0 MD ONE-ACET 3-28 [facility] AMINOPHE 00:00: n N 00 HYDROCOD DRUG Active Low Other 2022-0 MD ONE-ACET 3-28 [facility] AMINOPHE 00:00: n N 00 HYDROCOD DRUG Active Low Other 2022-0 MD ONE-ACET 3-28 [facility] AMINOPHE 00:00: n N 00 HYDROCOD DRUG Active Low Other 2022-0 MD ONE-ACET 3-28 [facility] AMINOPHE 00:00: n N 00 HYDROCOD DRUG Active Low Other 2022-0 MD ONE-ACET 3-28 [facility] AMINOPHE 00:00: n N 00 HYDROCOD DRUG Active Low Other 2022-0 MD ONE-ACET 3-28 [facility] AMINOPHE 00:00: n N 00 HYDROCOD DRUG Active Low Other 2022-0 MD ONE-ACET 3-28 [facility] AMINOPHE 00:00: n N 00 HYDROCOD DRUG Active Low Other 2022-0 MD ONE-ACET 3-28 [facility] AMINOPHE 00:00: n N 00 HYDROCOD DRUG Active Low Other 2022-0 MD ONE-ACET 3-28 [facility] AMINOPHE 00:00: n N 00 HYDROCOD DRUG Active Low Other 2022-0 MD ONE-ACET 3-28 [facility] AMINOPHE 00:00: n N 00 HYDROCOD DRUG Active Low Other 2022-0 MD ONE-ACET 3-28 [facility] AMINOPHE 00:00: n N 00 HYDROCOD DRUG Active Low Other 2022-0 MD ONE-ACET 3-28 [facility] AMINOPHE 00:00: n N 00 HYDROCOD DRUG Active Low Other 2022-0 MD ONE-ACET 3-28 [facility] AMINOPHE 00:00: n N 00 HYDROCOD DRUG Active Low Other 2022-0 MD ONE-ACET 3-28 [facility] AMINOPHE 00:00: n N 00 HYDROCOD DRUG Active Low Other 2022-0 MD ONE-ACET 3-28 [facility] AMINOPHE 00:00: n N 00 HYDROCOD DRUG Active Low Other 2022-0 MD ONE-ACET 3-28 [facility] AMINOPHE 00:00: n N 00 HYDROCOD DRUG Active Low Other 2022-0 MD ONE-ACET 3-28 [facility] AMINOPHE 00:00: n N 00 HYDROCOD DRUG Active Low Other 2022-0 MD ONE-ACET 3-28 [facility] AMINOPHE 00:00: n N 00 HYDROCOD DRUG Active Low Other 2022-0 MD ONE-ACET 3-28 [facility] AMINOPHE 00:00: n N 00 HYDROCOD DRUG Active Low Other 2022-0 MD ONE-ACET 3-28 [facility] AMINOPHE 00:00: n N 00 HYDROCOD DRUG Active Low Other 2022-0 MD ONE-ACET 3-28 [facility] AMINOPHE 00:00: n N 00 HYDROCOD DRUG Active Low Other 2022-0 MD ONE-ACET 3-28 [facility] AMINOPHE 00:00: n N 00 HYDROCOD DRUG Active Low Other 2022-0 MD ONE-ACET 3-28 [facility] AMINOPHE 00:00: n N 00 HYDROCOD DRUG Active Low Other 2022-0 MD ONE-ACET 3-28 [facility] AMINOPHE 00:00: n N 00 HYDROCOD DRUG Active Low Other 2022-0 MD ONE-ACET 3-28 [facility] AMINOPHE 00:00: n N 00 HYDROCOD DRUG Active Low Other 2022-0 MD ONE-ACET 3-28 [facility] AMINOPHE 00:00: n N 00 HYDROCOD DRUG Active Low Other 2022-0 MD ONE-ACET 3-28 [facility] AMINOPHE 00:00: n N 00 HYDROCOD DRUG Active Low Other 2022-0 MD ONE-ACET 3-28 [facility] AMINOPHE 00:00: n N 00 HYDROCOD DRUG Active Low Other 2022-0 MD ONE-ACET 3-28 [facility] AMINOPHE 00:00: n N 00 HYDROCOD DRUG Active Low Other 2022-0 MD ONE-ACET 3-28 [facility] AMINOPHE 00:00: n N 00 HYDROCOD DRUG Active Low Other 2022-0 MD ONE-ACET 3-28 [facility] AMINOPHE 00:00: n N 00 HYDROCOD DRUG Active Low Other 2022-0 MD ONE-ACET 3-28 [facility] AMINOPHE 00:00: n N 00 HYDROCOD DRUG Active Low Other 2022-0 MD ONE-ACET 3-28 [facility] AMINOPHE 00:00: n N 00 HYDROCOD DRUG Active Low Other 2022-0 MD ONE-ACET 3-28 [facility] AMINOPHE 00:00: n N 00 HYDROCOD DRUG Active Low Other 2022-0 MD ONE-ACET 3-28 [facility] AMINOPHE 00:00: n N 00 HYDROCOD DRUG Active Low Other 2022-0 MD ONE-ACET 3-28 [facility] AMINOPHE 00:00: n N 00 HYDROCOD DRUG Active Low Other 2022-0 MD ONE-ACET 3-28 [facility] AMINOPHE 00:00: n N 00 HYDROCOD DRUG Active Low Other 2022-0 MD ONE-ACET 3-28 [facility] AMINOPHE 00:00: n N 00 HYDROCOD DRUG Active Low Other 2022-0 MD ONE-ACET 3-28 [facility] AMINOPHE 00:00: n N 00 HYDROCOD DRUG Active Low Other 2022-0 MD ONE-ACET 3-28 [facility] AMINOPHE 00:00: n N 00 HYDROCOD DRUG Active Low Other 2022-0 MD ONE-ACET 3-28 [facility] AMINOPHE 00:00: n N 00 HYDROCOD DRUG Active Low Other 2022-0 MD ONE-ACET 3-28 [facility] AMINOPHE 00:00: n N 00 HYDROCOD DRUG Active Low Other 2022-0 MD ONE-ACET 3-28 [facility] AMINOPHE 00:00: n N 00 HYDROCOD DRUG Active Low Other 2022-0 MD ONE-ACET 3-28 [facility] AMINOPHE 00:00: n N 00 HYDROCOD DRUG Active Low Other 2022-0 MD ONE-ACET 3-28 [facility] AMINOPHE 00:00: n N 00 HYDROCOD DRUG Active Low Other 2022-0 MD ONE-ACET 3-28 Anders[facility] AMINOPHE 00:00: n N 00 HYDROCOD DRUG Active Low Other 2022-0 MD ONE-ACET 3-28 [facility] AMINOPHE 00:00: n N 00 HYDROCOD DRUG Active Low Other 2022-0 MD ONE-ACET 3-28 [facility] AMINOPHE 00:00: n N 00 HYDROCOD DRUG Active Low Other 2022-0 MD ONE-ACET 3-28 [facility] AMINOPHE 00:00: n N 00 HYDROCOD DRUG Active Low Other 2022-0 MD ONE-ACET 3-28 [facility] AMINOPHE 00:00: n N 00 HYDROCOD DRUG Active Low Other 2022-0 MD ONE-ACET 3-28 [facility] AMINOPHE 00:00: n N 00 HYDROCOD DRUG Active Low Other 2022-0 MD ONE-ACET 3-28 [facility] AMINOPHE 00:00: n N 00 HYDROCOD DRUG Active Low Other 2022-0 MD ONE-ACET 3-28 [facility] AMINOPHE 00:00: n N 00 HYDROCOD DRUG Active Low Other 2022-0 MD ONE-ACET 3-28 [facility] AMINOPHE 00:00: n N 00 HYDROCOD DRUG Active Low Other 2022-0 MD ONE-ACET 3-28 [facility] AMINOPHE 00:00: n N 00 HYDROCOD DRUG Active Low Other 2022-0 MD ONE-ACET 3-28 [facility] AMINOPHE 00:00: n N 00 HYDROCOD DRUG Active Low Other 2022-0 MD ONE-ACET 3-28 [facility] AMINOPHE 00:00: n N 00 HYDROCOD DRUG Active Low Other 2022-0 MD ONE-ACET 3-28 [facility] AMINOPHE 00:00: n N 00 HYDROCOD DRUG Active Low Other 2022-0 MD ONE-ACET 3-28 [facility] AMINOPHE 00:00: n N 00 HYDROCOD DRUG Active Low Other 2022-0 MD ONE-ACET 3-28 Anders[facility] AMINOPHE 00:00: n N 00 HYDROCOD DRUG Active Low Other 2022-0 MD ONE-ACET 3-28 Anderso AMINOPHE 00:00: n N 00 HYDROCOD DRUG Active Low Other 2022-0 MD ONE-ACET 3-28 [facility] AMINOPHE 00:00: n N 00 HYDROCOD DRUG Active Low Other 2022-0 MD ONE-ACET 3-28 Anders[facility] AMINOPHE 00:00: n N 00 HYDROCOD DRUG Active Low Other 2022-0 MD ONE-ACET 3-28 Anders[facility] AMINOPHE 00:00: n N 00 HYDROCOD DRUG Active Low Other 2022-0 MD ONE-ACET 3-28 Anderso AMINOPHE 00:00: n N 00 HYDROCOD DRUG Active Low Other 2022-0 MD ONE-ACET 3-28 Anderso AMINOPHE 00:00: n N 00 HYDROCOD DRUG Active Low Other 2022-0 MD ONE-ACET 3-28 Anders[facility] AMINOPHE 00:00: n N 00 HYDROCOD DRUG Active Low Other 2022-0 MD ONE-ACET 3-28 Anderso AMINOPHE 00:00: n N 00 HYDROCOD DRUG Active Low Other 2022-0 MD ONE-ACET 3-28 Anders[facility] AMINOPHE 00:00: n N 00 HYDROCOD DRUG Active Low Other 2022-0 MD ONE-ACET 3-28 Anders[facility] AMINOPHE 00:00: n N 00 HYDROCOD DRUG Active Low Other 2022-0 MD ONE-ACET 3-28 [facility] AMINOPHE 00:00: n N 00 HYDROCOD DRUG Active Low Other 2022-0 MD ONE-ACET 3-28 [facility] AMINOPHE 00:00: n N 00 HYDROCOD DRUG Active Low Other 2022-0 MD ONE-ACET 3-28 [facility] AMINOPHE 00:00: n N 00 HYDROCOD DRUG Active Low Other 2022-0 MD ONE-ACET 3-28 [facility] AMINOPHE 00:00: n N 00 HYDROCOD DRUG Active Low Other 2022-0 MD ONE-ACET 3-28 [facility] AMINOPHE 00:00: n N 00 HYDROCOD DRUG Active Low Other 2022-0 MD ONE-ACET 3-28 [facility] AMINOPHE 00:00: n N 00 HYDROCOD DRUG Active Low Other 2022-0 MD ONE-ACET 3-28 [facility] AMINOPHE 00:00: n N 00 HYDROCOD DRUG Active Low Other 2022-0 MD ONE-ACET 3-28 [facility] AMINOPHE 00:00: n N 00 HYDROCOD DRUG Active Low Other 2022-0 MD ONE-ACET 3-28 [facility] AMINOPHE 00:00: n N 00 HYDROCOD DRUG Active Low Other 2022-0 MD ONE-ACET 3-28 [facility] AMINOPHE 00:00: n N 00 HYDROCOD DRUG Active Low Other 2022-0 MD ONE-ACET 3-28 [facility] AMINOPHE 00:00: n N 00 HYDROCOD DRUG Active Low Other 2022-0 MD ONE-ACET 3-28 [facility] AMINOPHE 00:00: n N 00 HYDROCOD DRUG Active Low Other 2022-0 MD ONE-ACET 3-28 Anders[facility] AMINOPHE 00:00: n N 00 HYDROCOD DRUG Active Low Other 2022-0 MD ONE-ACET 3-28 [facility] AMINOPHE 00:00: n N 00 HYDROCOD DRUG Active Low Other 2022-0 MD ONE-ACET 3-28 [facility] AMINOPHE 00:00: n N 00 HYDROCOD DRUG Active Low Other 2022-0 MD ONE-ACET 3-28 [facility] AMINOPHE 00:00: n N 00 HYDROCOD DRUG Active Low Other 2022-0 MD ONE-ACET 3-28 [facility] AMINOPHE 00:00: n N 00 HYDROCOD DRUG Active Low Other 2022-0 MD ONE-ACET 3-28 [facility] AMINOPHE 00:00: n N 00 HYDROCOD DRUG Active Low Other 2022-0 MD ONE-ACET 3-28 Anderso AMINOPHE 00:00: n N 00 HYDROCOD DRUG Active Low Other 2022-0 MD ONE-ACET 3-28 Anderso AMINOPHE 00:00: n N 00 HYDROCOD DRUG Active Low Other 2022-0 MD ONE-ACET 3-28 [facility] AMINOPHE 00:00: n N 00 HYDROCOD DRUG Active Low Other 2022-0 MD ONE-ACET 3-28 [facility] AMINOPHE 00:00: n N 00 HYDROCOD DRUG Active Low Other 2022-0 MD ONE-ACET 3-28 Anderso AMINOPHE 00:00: n N 00 HYDROCOD DRUG Active Low Other 2022-0 MD ONE-ACET 3-28 Anderso AMINOPHE 00:00: n N 00 HYDROCOD DRUG Active Low Other 2022-0 MD ONE-ACET 3-28 [facility] AMINOPHE 00:00: n N 00 HYDROCOD DRUG Active Low Other 2022-0 MD ONE-ACET 3-28 [facility] AMINOPHE 00:00: n N 00 HYDROCOD DRUG Active Low Other 2022-0 MD ONE-ACET 3-28 Anders[facility] AMINOPHE 00:00: n N 00 HYDROCOD DRUG Active Low Other 2022-0 MD ONE-ACET 3-28 Anders[facility] AMINOPHE 00:00: n N 00 HYDROCOD DRUG Active Low Other 2022-0 MD ONE-ACET 3-28 [facility] AMINOPHE 00:00: n N 00 HYDROCOD DRUG Active Low Other 2022-0 MD ONE-ACET 3-28 [facility] AMINOPHE 00:00: n N 00 HYDROCOD DRUG Active Low Other 2022-0 MD ONE-ACET 3-28 [facility] AMINOPHE 00:00: n N 00 HYDROCOD DRUG Active Low Other 2022-0 MD ONE-ACET 3-28 [facility] AMINOPHE 00:00: n N 00 HYDROCOD DRUG Active Low Other 2022-0 MD ONE-ACET 3-28 [facility] AMINOPHE 00:00: n N 00 HYDROCOD DRUG Active Low Other 2022-0 MD ONE-ACET 3-28 [facility] AMINOPHE 00:00: n N 00 HYDROCOD DRUG Active Low Other 2022-0 MD ONE-ACET 3-28 [facility] AMINOPHE 00:00: n N 00 HYDROCOD DRUG Active Low Other 2022-0 MD ONE-ACET 3-28 [facility] AMINOPHE 00:00: n N 00 HYDROCOD DRUG Active Low Other 2022-0 MD ONE-ACET 3-28 [facility] AMINOPHE 00:00: n N 00 HYDROCOD DRUG Active Low Other 2022-0 MD ONE-ACET 3-28 [facility] AMINOPHE 00:00: n N 00 HYDROCOD DRUG Active Low Other 2022-0 MD ONE-ACET 3-28 [facility] AMINOPHE 00:00: n N 00 HYDROCOD DRUG Active Low Other 2022-0 MD ONE-ACET 3-28 [facility] AMINOPHE 00:00: n N 00 HYDROCOD DRUG Active Low Other 2022-0 MD ONE-ACET 3-28 [facility] AMINOPHE 00:00: n N 00 HYDROCOD DRUG Active Low Other 2022-0 MD ONE-ACET 3-28 Anderso AMINOPHE 00:00: n N 00 HYDROCOD DRUG Active Low Other 2022-0 MD ONE-ACET 3-28 Anders[facility] AMINOPHE 00:00: n N 00 HYDROCOD DRUG Active Low Other 2022-0 MD ONE-ACET 3-28 Anders[facility] AMINOPHE 00:00: n N 00 HYDROCOD DRUG Active Low Other 2022-0 MD ONE-ACET 3-28 Anderso AMINOPHE 00:00: n N 00 HYDROCOD DRUG Active Low Other 2022-0 MD ONE-ACET 3-28 Anders[facility] AMINOPHE 00:00: n N 00 HYDROCOD DRUG Active Low Other 2022-0 MD ONE-ACET 3-28 Anders[facility] AMINOPHE 00:00: n N 00 HYDROCOD DRUG Active Low Other 2022-0 MD ONE-ACET 3-28 [facility] AMINOPHE 00:00: n N 00 HYDROCOD DRUG Active Low Other 2022-0 MD ONE-ACET 3-28 Anderso AMINOPHE 00:00: n N 00 HYDROCOD DRUG Active Low Other 2022-0 MD ONE-ACET 3-28 [facility] AMINOPHE 00:00: n N 00 HYDROCOD DRUG Active Low Other 2022-0 MD ONE-ACET 3-28 [facility] AMINOPHE 00:00: n N 00 HYDROCOD DRUG Active Low Other 2022-0 MD ONE-ACET 3-28 Anders[facility] AMINOPHE 00:00: n N 00 HYDROCOD DRUG Active Low Other 2022-0 MD ONE-ACET 3-28 [facility] AMINOPHE 00:00: n N 00 HYDROCOD DRUG Active Low Other 2022-0 MD ONE-ACET 3-28 Anders[facility] AMINOPHE 00:00: n N 00 HYDROCOD DRUG Active Low Other 2022-0 MD ONE-ACET 3-28 [facility] AMINOPHE 00:00: n N 00 HYDROCOD DRUG Active Low Other 2022-0 MD ONE-ACET 3-28 Anders[facility] AMINOPHE 00:00: n N 00 HYDROCOD DRUG Active Low Other 2022-0 MD ONE-ACET 3-28 [facility] AMINOPHE 00:00: n N 00 HYDROCOD DRUG Active Low Other 2022-0 MD ONE-ACET 3-28 [facility] AMINOPHE 00:00: n N 00 HYDROCOD DRUG Active Low Other 2022-0 MD ONE-ACET 3-28 [facility] AMINOPHE 00:00: n N 00 HYDROCOD DRUG Active Low Other 2021-0 MD ONE-ACET 3-28 [facility] AMINOPHE 00:00: n N 00 HYDROCOD DRUG Active Low Other 2021-0 MD ONE-ACET 3-28 Anders[facility] AMINOPHE 00:00: n N 00 HYDROCOD DRUG Active Low Other 2021-0 MD ONE-ACET 3-28 [facility] AMINOPHE 00:00: n N 00 HYDROCOD DRUG Active Low Other 2021-0 MD ONE-ACET 3-28 [facility] AMINOPHE 00:00: n N 00 HYDROCOD DRUG Active Low Other 2021-0 MD ONE-ACET 3-28 [facility] AMINOPHE 00:00: n N 00 HYDROCOD DRUG Active Low Other 2021- MD ONE-ACET 3-28 [facility] AMINOPHE 00:00: n N 00 HYDROCOD DRUG Active Low Other 2021-0 MD ONE-ACET 3-28 [facility] AMINOPHE 00:00: n N 00 HYDROCOD DRUG Active Low Other 2021-0 MD ONE-ACET 3-28 [facility] AMINOPHE 00:00: n N 00 HYDROCOD DRUG Active Low Other 2021-0 MD ONE-ACET 3-28 [facility] AMINOPHE 00:00: n N 00 Predniso Propensi Active GI 2018-11 Method i ne ty to Intolerance 0-23 st adverse 00:00: Hospita reaction 00 l s to drug NO KNOWN Drug Active Univers ALLERGIE Class ity of S [facility] Family History Family Member Diagnosis Comments Start Date Stop Date Source Maternal grandfather Lung cancer Uni versity [facility] Maternal uncle Sarcoma [facility] Natural mother Stomach cancer [facility] Social History Social Habit Start Date Stop Date Quantity Comments Source Sexual orientation [facility] MD Cr [facility] Alcohol intake 2023-08-29 2023-08-29 Ex-drinker University 00:00:00 00:00:00 (finding) [place] Cr [facility] History of Social 2023-08-29 2023-08-29 Univers ity of function 00:00:00 00:00:00 Estela Cr [facility] Education 2023-08-27 2023-08-27 16 University 00:00:00 00:00:00 Estela mckeon [facility] Exposure to 2023-03-11 2023-03-21 Not sure [facility] SARS-CoV-2 (event) 00:00:00 14:33:00 [facility] Tobacco use and 2021-11-22 2021-11-22 Smokeless Universit y of exposure 00:00:00 00:00:00 tobacco non-user [facility] Sex Ass[birth year] Universit y of 00:00:00 00:00:00 [place] MD Tayo mckeon [facility] Smoking Status Start Date Stop Date Source Tobacco smoking consumption [facility] Medications Ordered Filled Start Stop Current Ordering Indication Dosage Frequency Signature Comments Components Source Medication Medication Date Date Medication? 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 Leandroo hyperglycem n [facility] predniSONE 2022-11- Yes Pneumonitis Take 5 Univers (DELTASONE) 0-26 11-21 tablets ity of 10 mg 00:00: 05:59 (50 mg) by [place] tablet 00 :00 mouth MD daily for [place] 5 days, n THEN 4 Cancer tablets Center (40 mg) daily for 5 days, THEN 3 tablets (30 mg) daily for 5 days, THEN 2 tablets (20 mg) daily for 5 days, THEN 1 tablet (10 mg) daily for 5 days. predniSONE 2022-11- Yes Pneumonitis Take 5 Univers (DELTASONE) 0-26 11-21 tablets ity of 10 mg 00:00: 05:59 (50 mg) by [place] tablet 00 :00 mouth MD daily for [place] 5 days, n THEN 4 Cancer tablets Center (40 mg) daily for 5 days, THEN 3 tablets (30 mg) daily for 5 days, THEN 2 tablets (20 mg) daily for 5 days, THEN 1 tablet (10 mg) daily for 5 days. melatonin 5 2022-11 Yes 15mg Take 3 Univ ers mg tab 0-25 tablets ity of tablet 21:57: (15 mg) by [place] 00 mouth at MD bedtime. [facility] esomeprazol 2022-11 Yes 20mg Take 1 Univ ers e (NexIUM) 0-25 capsule ity of 20 MG 21:57: (20 mg) by [place] capsule 00 mouth MD every [place] morning n before Cancer breakfast. [place] melatonin 5 2022-11 Yes 15mg Take 3 Univ ers mg tab 0-25 tablets ity of tablet 21:57: (15 mg) by [place] 00 mouth at MD bedtime. [facility] esomeprazol 2022-11 Yes 20mg Take 1 Univ ers e (NexIUM) 0-25 capsule ity of 20 MG 21:57: (20 mg) by [place] capsule 00 mouth MD [facility] morning n before Cancer breakfast. [place] calcium 2022-11 Yes 500mg Chew 1 Univers carbonate 0-25 tablet ity of (TUMS) 500 14:23: (500 mg) [place] as mg (200 mg 13 daily. elemental [place] calcium per n tablet) Cancer chewable Center tablet calcium 2022-11 Yes 500mg Chew 1 Univers carbonate 0-25 tablet ity of (TUMS) 500 14:23: (500 mg) [place] as mg (200 mg 13 daily. elemental [place] calcium per n tablet) Cancer chewable [place] tablet polyethylen 2022-11 Yes Breast 17g Fill Univ ers e glycol 0-25 cancer powder to ity of (GLYCOLAX) 00:00: jt [place] 17 00 inside cap gram/dose (17 g). [place] powder Stir and n Dissolve Cancer in any 4 Center to 8 ounces of beverage then drink solution as directed daily. sulfamethox 2022-11 Yes Breast 1{tbl} Take 1 Univers azole-trime 0-25 cancer tablet by i ty of 00:00: mouth 3 [place] (BACTRIM 00 (three) MD ULLOA) 800 times a [place] mg-160 mg week n per tablet Friday, Cancer Friday Center and Friday. HYDROmorpho 2022-11 Yes Cancer 4mg Take 1 Un tamela ne 0-25 associated tablet (4 ity of (DILAUDID) 00:00: pain mg) by [place] 4 mg tablet 00 mouth MD every 4 [place] (four) n hours as Cancer needed Center (pain). morphine 2022-11 Yes Cancer 30mg Take 1 Unive rs (MS CONTIN) 0-25 associated tablet (30 ity of 30 mg 12 hr 00:00: pain mg) [place] tablet 00 mouth MD every 8 [place] (eight) n hours. Cancer Center fluticasone 2022-11 Yes Pneumonitis 1{puff} Inhale 1 Univers propionate- 0-25 puff by ity o f salmeterol 00:00: mouth [place] (ADVAIR) 00 every 12 MD 250 mcg-50 (twelve) [place] so mcg/inhalat hours. n ion diskus Cancer inhaler Center polyethylen 2022-11 Yes Breast 17g Fill [facility] ers e glycol 0-25 cancer powder to ity of (GLYCOLAX) 00:00: jt [place] 17 00 inside cap MD gram/dose (17 g). [place] powder Stir and n Dissolve Cancer in any 4 Center to 8 ounces of beverage then drink solution as directed daily. sulfamethox 2022-11 Yes Breast 1{tbl} Take 1 [facility] azole-trime 0-25 cancer tablet by i ty of oprim 00:00: mouth 3 [place] (BACTRIM 00 (three) MD ULLOA) 800 times a [place] mg-160 mg week n per tablet Friday, Cancer Friday Center and Friday. HYDROmorpho 2022-11 Yes Cancer 4mg Take 1 Un [place] ne 0-25 associated tablet (4 ity of (DILAUDID) 00:00: pain mg) by [place] 4 mg tablet 00 mouth MD every 4 [place] (four) n hours as Cancer needed Center (pain). morphine 2022-11 Yes Cancer 30mg Take 1 [facility] rs (MS CONTIN) 0-25 associated tablet (30 ity of 30 mg 12 hr 00:00: pain mg) [place] tablet 00 mouth MD every 8 [place] (eight) n hours. Cancer Center fluticasone 2022-11 Yes Pneumonitis 1{puff} Inhale 1 [facility] propionate- 0-25 puff by ity o f salmeterol 00:00: mouth [place] (ADVAIR) 00 every 12 MD 250 mcg-50 (twelve) [place] so mcg/inhalat hours. n ion diskus Cancer inhaler Center pediatric 2022-11- No Chew [facility] multivitami 0-24 10-24 daily. ity o f n chewable 15:57: 00:00 [place] tablet 22 :00 MD [facility] pediatric 2022-11- No Chew [facility] multivitami 0-24 10-24 daily. ity o f n chewable 15:57: 00:00 [place] tablet 22 :00 MD [facility] artificial 2022-11 Yes Breast 2[drp] Administer [facility] tears, 0-24 cancer 2 drops to ity o f carboxymeth 00:00: both eyes [place] ylcellulose 00 as needed MD , (REFRESH for dry [place] o PLUS) 0.5% eyes n ophthalmic (twice Cancer solution daily). Center dextrometho 2022-11 Yes Breast 10mL Take 10 mL [facility] rphan-guaiF 0-24 cancer by mouth it y of ENesin 00:00: every 4 [place] (ROBITUSSIN 00 (four) MD -DM) 10 hours as [place] mg-100 mg/5 needed for n mL liquid cough or Cancer congestion Center . enoxaparin 2022-11 Yes Breast 60mg Inject 0.6 Univers (LOVENOX) 0-24 cancer mL (60 mg) it y of 60 mg/0.6 00:00: under the [place] as mL 00 skin every MD prefilled 12 [place] syringe (twelve) n hours. Cancer Center OLANZapine 2022-11 Yes Breast 2.5mg Take 1 Un tamela (ZyPREXA) 0-24 cancer tablet ity of 2.5 mg 00:00: (2.5 mg) [place] tablet 00 by mouth MD every 6 Anderso (six) n hours as Cancer needed for Center anxiety. Take 5 mg ( 2 tablets ) nightly for sleep senna 2022-11 Yes Breast 2{tbl} Take 2 Univer s (SENOKOT) 0-24 cancer tablets by it y of 8.6 mg 00:00: mouth [place] tablet 00 twice MD daily. [facility] artificial 2022-11 Yes Breast 2[drp] Administer [facility] tears, 0-24 cancer 2 drops to ity o f carboxymeth 00:00: both eyes [place] ylcellulose 00 as needed MD , (REFRESH for dry [place] o PLUS) 0.5% eyes n ophthalmic (twice Cancer solution daily). Center dextrometho 2022-11 Yes Breast 10mL Take 10 mL Univers rphan-guaiF 0-24 cancer by mouth it y of ENesin 00:00: every 4 [place] (ROBITUSSIN 00 (four) MD -DM) 10 hours as Anderso mg-100 mg/5 needed for n mL liquid cough or Cancer congestion Center . enoxaparin 2022-11 Yes Breast 60mg Inject 0.6 Univers (LOVENOX) 0-24 cancer mL (60 mg) it y of 60 mg/0.6 00:00: under the [place] as mL 00 skin every MD prefilled 12 Anders[place] syringe (twelve) n hours. Cancer Center OLANZapine 2022-11 Yes Breast 2.5mg Take 1 Un tamela (ZyPREXA) 0-24 cancer tablet ity of 2.5 mg 00:00: (2.5 mg) [place] tablet 00 by mouth MD every 6 Anderso (six) n hours as Cancer needed for Center anxiety. Take 5 mg ( 2 tablets ) nightly for sleep senna 2022-11 Yes Breast 2{tbl} Take 2 Univer s (SENOKOT) 0-24 cancer tablets by it y of 8.6 mg 00:00: mouth [place] tablet 00 twice MD daily. Anderso n Cancer Center levoFLOXaci 2022-11 Yes Hydronephro 500mg Take 1 Univers n 0-18 sis due to tablet ity of (LEVAQUIN) 00:00: ureteral (500 mg) [place] 500 mg 00 stricture by mouth MD tablet daily. Anderso Begin 2 n days Cancer before Center surgery levoFLOXaci 2022-11- No Hydronephro 500mg Take 1 Univers n 0-18 10-24 sis due to tablet ity of (LEVAQUIN) 00:00: 00:00 ureteral (500 mg) [place] 500 mg 00 :00 stricture by mouth MD tablet daily. Anderso Begin 2 n days Cancer before Center surgery levoFLOXaci 2022-11- No Hydronephro 500mg Take 1 Univers n 0-18 10-24 sis due to tablet ity of (LEVAQUIN) 00:00: 00:00 ureteral (500 mg) [place] 500 mg 00 :00 stricture by mouth MD tablet daily. Klaudia Sorensen 2 n days Cancer before Center surgery melatonin 3 2022-11- No 3mg Take 1 Uni vers mg tablet 0-14 10-14 tablet (3 ity of 11:51: 00:00 mg) by [place] 29 :00 mouth at MD bedtime. [facility] melatonin 3 2022-11- No 3mg Take 1 Uni vers mg tablet 0-14 -14 tablet (3 ity of 11:51: 00:00 mg) by [place] 29 :00 mouth at MD bedtime. [facility] daridorexan 2022-11- No insomnia 25mg Take 25 mg Univers t (Quviviq) 0-14 -14 by mouth ity of 25 mg tab 11:50: 00:00 daily. [place] 35 :00 [facility] daridorexan 2022-11- No insomnia 25mg Take 25 mg Univers t (Quviviq) 0-14 -14 by mouth ity of 25 mg tab 11:50: 00:00 daily. [place] 35 :00 [facility] amLODIPine 2022-11 Yes 5mg Take 1 Unive rs (NORVASC) 5 0-12 tablet (5 ity of mg tablet 00:00: mg) by [place] 00 mouth daily. [facility] amLODIPine 2022-11 Yes 5mg Take 1 Unive rs (NORVASC) 5 0-12 tablet (5 ity of mg tablet 00:00: mg) by [place] 00 mouth daily. [facility] predniSONE 2022-11- No 10mg Take 1 Univ ers (DELTASONE) 0-12 10-24 tablet (10 i ty of 10 mg 00:00: 00:00 mg) by [place] tablet 00 :00 mouth MD esteban Rudolph daily. [facility] predniSONE 2022-11- No 10mg Take 1 Univ ers (DELTASONE) 0-12 10-24 tablet (10 i ty of 10 mg 00:00: 00:00 mg) by [place] tablet 00 :00 mouth MD esteban Rudolph daily. n Cancer Center INV-(2022-11- Yes Estrogen 100mg Take 1 [facility] 045) 0-05 11-05 receptor capsule ity of MICHAELLE-222 00:00: 04:59 positive (100 mg) [place] (first 00 :00 status by mouth MD generation) (ER+) every 12 And erso 100 mg (twelve) n capsule hours for Cancer 28 days. Center Take on empty stomach. See pill diary. INV-(2022-11- Yes Estrogen 400mg Take 2 [facility] 045) 0-05 10-27 receptor tablets ity of ribociclib 00:00: 04:59 positive (400 mg) [place] 200 mg 00 :00 status by mouth MD tablet (ER+) daily for Anderso 21 days. n On, then 7 Cancer days off Center in 28 days cycle. Take on empty stomach. See pill diary. INV-(2022-11- No Estrogen 100mg Take 1 [facility] 045) 0-05 10-24 receptor capsule ity of MICHAELLE-222 00:00: 00:00 positive (100 mg) [place] (first 00 :00 status by mouth MD generation) (ER+) every 12 And erso 100 mg (twelve) n capsule hours for Cancer 28 days. Center Take on empty stomach. See pill diary. INV-(2022-11- No Estrogen 400mg Take 2 [facility] 045) 0-05 10-24 receptor tablets ity of ribociclib 00:00: 00:00 positive (400 mg) [place] 200 mg 00 :00 status by mouth MD tablet (ER+) daily for Anderso 21 days. n On, then 7 Cancer days off Center in 28 days cycle. Take on empty stomach. See pill diary. INV-(2022-11- No Estrogen 100mg Take 1 [facility] 045) 0-05 10-24 receptor capsule ity of MICHAELLE-222 00:00: 00:00 positive (100 mg) [place] (first 00 :00 status by mouth MD generation) (ER+) every 12 And erso 100 mg (twelve) n capsule hours for Cancer 28 days. Center Take on empty stomach. See pill diary. INV-(2022-11- No Estrogen 400mg Take 2 Univers 045) 0-05 10-24 receptor tablets ity of ribociclib 00:00: 00:00 positive (400 mg) [place] 200 mg 00 :00 status by mouth tablet (ER+) daily for Anderso 21 days. n On, then 7 Cancer days off Center in 28 days cycle. Take on empty stomach. See pill diary. pediatric 2022-11 Yes Chew Univers multivitami 0-03 daily. ity of n chewable 00:19: [place] tablet 32 [facility] melatonin 3 2022-11 Yes 3mg Take 1 Univ ers mg tablet 0-03 tablet (3 ity o f 00:19: mg) by [place] mouth at MD bedtime. [facility] calcium 2022-11 Yes 500mg Chew 1 Univers carbonate 0-03 tablet ity of (TUMS) 500 00:19: (500 mg) [place] as mg (200 mg 32 daily. elemental Klaudia calcium per n tablet) [facility] chewable [place] tablet daridorexan 2022-11 Yes insomnia 25mg Take 25 mg Univers t (Quviviq) 0-02 by mouth ity of 25 mg tab 13:56: daily. [place] [address] 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 [facility] UNABLE TO 2022- No Vitamins Uni vers FIND 08-05 B12, D, ity of 13:21: 00:00 Calcium, [place] 38 :00 MD Edis Probiotic, [facility] UNABLE TO 2022- No Vitamins Uni vers FIND 08-05 B12, D, ity of 13:21: 00:00 Calcium, [place] 38 :00 MD Edis Probiotic, Anderso Milk n [facility] UNABLE TO 2022- No Vitamins Uni vers FIND 08-05 B12, D, ity of 13:21: 00:00 Calcium, [place] 38 :00 MD Edis Probiotic, [place]o Milk n [facility] cyclobenzap Yes Hip pain 10mg Take 1 Univers rine -26 tablet (10 ity of (FLEXERIL) 00:00: mg) by [place] 10 mg 00 mouth 3 MD tablet (three) Anderso times a n day as Cancer needed for Center muscle spasms. gabapentin Yes Estrogen 600mg Take 2 Univers (NEURONTIN) 08-05 receptor capsules ity of 300 mg 00:00: positive (600 mg) [place] capsule 00 status by mouth (ER+) at [facility] bedtime. n Cancer [place] hyoscyamine Yes Hydronephro .125mg Dissolve 1 Univers sulfate 08-05 sis, not tablet ity of (ANASPAZ) 00:00: otherwise (0.125 mg) [place] 0.125 mg 00 specified on the MD disintegrat tongue Leandro o ing tablet every 6 n (six) Cancer hours as Center needed for cramping. ALPRAZolam Yes Estrogen .25mg Take 1 Univers (XANAX) 08-05 receptor tablet ity of 0.25 mg 00:00: positive (0.25 mg) [place] tablet 00 [facility] dexAMETHaso Yes Neoplasm of 4mg Take 1 Univers ne 08-05 extradural tablet (4 ity of (DECADRON) 00:00: space mg) by [place] s 4 mg tablet 00 mouth daily with Anderso breakfast n for 7 Cancer dakys then Center stop. cyclobenzap Yes Hip pain 10mg Take 1 Univers rine 9-26 tablet (10 ity of (FLEXERIL) 00:00: mg) by [place] 10 mg 00 mouth 3 MD tablet (three) Anderso times a n day as Cancer needed for Center muscle spasms. hyoscyamine Yes Hydronephro .125mg Dissolve 1 Univers sulfate 9- sis, not tablet ity of (ANASPAZ) 00:00: otherwise (0.125 mg) [place] 0.125 mg 00 specified on the MD disintegrat tongue [place] o ing tablet every 6 n (six) Cancer hours as Center needed for cramping. ALPRAZolam Yes Estrogen .25mg Take 1 Univers (XANAX) 926 receptor tablet ity of 0.25 mg 00:00: positive (0.25 mg) [place] tablet 00 status by mouth MD (ER+) at [facility]. n [facility] cyclobenzap Yes Hip pain 10mg Take 1 Univers rine - tablet (10 ity of (FLEXERIL) 00:00: mg) by [place] 10 mg 00 mouth 3 MD tablet (three) Anderso times a n day as Cancer needed for Center muscle spasms. hyoscyamine Yes Hydronephro .125mg Dissolve 1 [facility] sulfate - sis, not tablet ity of (ANASPAZ) 00:00: otherwise (0.125 mg) [place] 0.125 mg 00 specified on the MD disintegrat tongue [place] o ing tablet every 6 n (six) Cancer hours as Center needed for cramping. ALPRAZolam Yes Estrogen .25mg Take 1 Univers (XANAX) 08-05 receptor tablet ity of 0.25 mg 00:00: positive (0.25 mg) [place] tablet 00 status by mouth MD (ER+) at [facility]. n [facility] gabapentin 2022- No Estrogen 600mg Take 2 Univers (NEURONTIN) 08-05 10-25 receptor capsules ity of 300 mg 00:00: 00:00 positive (600 mg) [place] capsule 00 :00 status by mouth MD (ER+) at [facility]. n [facility] gabapentin 2022- No Estrogen 600mg Take 2 Univers (NEURONTIN) 08-05 10-25 receptor capsules ity of 300 mg 00:00: 00:00 positive (600 mg) [place] capsule 00 :00 status by mouth MD (ER+) at [facility]. n [facility] dexAMETHaso 2022- No Neoplasm of 4mg Take 1 Univers ne 9-26 10-24 extradural tablet (4 ity of (DECADRON) 00:00: 00:00 space mg) by [place] 4 mg tablet 00 :00 mouth MD daily with Anderso breakfast n for 7 Cancer dakys then Center stop. dexAMETHaso 2022- No Neoplasm of 4mg Take 1 Univers ne 9-26 10-24 extradural tablet (4 ity of (DECADRON) 00:00: 00:00 space mg) by [place] 4 mg tablet 00 :00 mouth MD daily with Anderso breakfast n for 7 Cancer dakys then Center stop. HYDROmorpho Yes Cancer 2mg Take 1 Un tamela ne 9-22 associated tablet (2 ity of (DILAUDID) 00:00: pain mg) by [place] 2 mg tablet 00 mouth MD every 4 Anderso (four) n hours as Cancer needed for Center severe pain. HYDROmorpho 2022- No Cancer 2mg Take 1 U nivers ne 9-22 10-25 associated tablet (2 ity of (DILAUDID) 00:00: 00:00 pain mg) [place] 2 mg tablet 00 :00 mouth MD every 4 Anderso (four) n hours as Cancer needed for Center severe pain. HYDROmorpho 2022- No Cancer 2mg Take 1 U nivers ne 9-22 10-25 associated tablet (2 ity of (DILAUDID) 00:00: 00:00 pain mg) [place] 2 mg tablet 00 :00 mouth MD every 4 Anderso (four) n hours as Cancer needed for Center severe pain. multivitami 2022- No 1{capsu Take 1 Univers n capsule 07-25-15 le} capsule by ity of 18:38: 00:00 mouth [place] 02 :00 daily. MD [facility] multivitami 2022- No 1{capsu Take 1 Univers n capsule 07-25-15 le} capsule by ity of 18:38: 00:00 mouth [place] 02 :00 daily. MD [facility] multivitami 2022- No 1{capsu Take 1 Univers n capsule 9-15 09-15 le} capsule by ity of 18:38: 00:00 mouth [place] 02 :00 daily. [facility] 2022- No 10mg Take 1 Uni vers (SINGULAIR) 07-25 tablet (10 i ty of 10 mg 18:37: 00:00 mg) by [place] tablet 59 :00 mouth at NM bedtime. [facility] No 10mg Take 1 Uni vers (SINGULAIR) 07-25 tablet (10 i ty of 10 mg 18:37: 00:00 mg) by [place] tablet 59 :00 mouth at NM bedtime. [facility] 10mg Take 1 Uni vers (SINGULAIR) 07-25 tablet (10 i ty of 10 mg 18:37: 00:00 mg) by [place] tablet 59 :00 mouth at [place] bedtime. [facility] hyoscyamine 2022- No Hydronephro TAKE 1 [facility] sulfate 07-22 sis, not TABLET BY it y of (ANASPAZ) 00:00: 00:00 otherwise MOUTH [place] 0.125 mg 00 :00 specified EVERY 6 MD disintegrat HOURS Juan rso ing tablet NEEDED FOR n BLADDER Cancer SPASMS [place] hyoscyamine 2022- No Hydronephro TAKE 1 [facility] sulfate 07-22 sis, not TABLET BY it y of (ANASPAZ) 00:00: 00:00 otherwise MOUTH [place] 0.125 mg 00 :00 specified EVERY 6 MD disintegrat HOURS Juan rso ing tablet NEEDED FOR n BLADDER Cancer SPASMS [place] hyoscyamine 2022- No Hydronephro TAKE 1 [facility] sulfate 07-22 sis, not TABLET BY it y of (ANASPAZ) 00:00: 00:00 otherwise MOUTH [place] 0.125 mg 00 :00 specified EVERY 6 MD disintegrat HOURS Juan rso ing tablet NEEDED FOR n BLADDER Cancer SPASMS [place] acetaminoph 2022- No Neoplasm 1{tbl} Take 1 Univers en-codeine 07-22 related tablet by ity of (TYLENOL 00:00: 00:00 pain mouth [place] #3) 300 00 :00 (acute) every 4 MD mg-30 mg (chronic) (four) Juan rso tablet hours as n needed for Cancer moderate Center pain. acetaminoph 2022- No Neoplasm 1{tbl} Take 1 Univers en-codeine 9-10 18- related tablet by ity of (TYLENOL 00:00: 00:00 pain mouth [place] #3) 300 00 :00 (acute) every 4 MD mg-30 mg (chronic) (four) Juan r[place] tablet hours as n needed for Cancer moderate Center pain. acetaminoph 2022- No Neoplasm 1{tbl} Take 1 Univers en-codeine -08-01 related tablet by ity of (TYLENOL 00:00: 00:00 pain mouth [place] #3) 300 00 :00 (acute) every 4 MD mg-30 mg (chronic) (four) Juan rso tablet hours as n needed for Cancer moderate Center pain. acetaminoph 2022- No Neoplasm 1{tbl} Take 1 Univers en-codeine 9-10 18-12 related tablet by ity of (TYLENOL 00:00: 00:00 pain mouth [place] #3) 300 00 :00 (acute) every 4 MD mg-30 mg (chronic) (four) Juan rso tablet hours as n needed for Cancer moderate Center pain. acetaminoph 2022- No Neoplasm 1{tbl} Take 1 Univers en-codeine 9-10 18- related tablet by ity of (TYLENOL 00:00: 00:00 pain mouth [place] #3) 300 00 :00 (acute) every 4 MD mg-30 mg (chronic) (four) Juan rso tablet hours as n needed for Cancer moderate Center pain. acetaminoph 2022- No Neoplasm 1{tbl} Take 1 Univers en-codeine 9-10 18-12 related tablet by ity of (TYLENOL 00:00: 00:00 pain mouth [place] #3) 300 00 :00 (acute) every 4 MD mg-30 mg (chronic) (four) Juan rso tablet hours as n needed for Cancer moderate Center pain. cyclobenzap 2022- No Hip pain 10mg Take 1 Univers rine 9-11 09-26 tablet (10 ity of (FLEXERIL) 00:00: 00:00 mg) [place] 10 mg 00 :00 mouth 3 MD tablet (three) Anderso times a n day as Cancer needed for Center muscle spasms. cyclobenzap 3-0 2022- No Hip pain 10mg Take 1 Univers rine 07-21 tablet (10 ity of (FLEXERIL) 00:00: 00:00 mg) [place] 10 mg 00 :00 mouth 3 MD tablet (three) Anderso times a n day as Cancer needed for Center muscle spasms. cyclobenzap 2022-0 2022- No Hip pain 10mg Take 1 Univers rine 07-21 tablet (10 ity of (FLEXERIL) 00:00: 00:00 mg) [place] 10 mg 00 :00 mouth 3 MD tablet (three) Anderso times a n day as Cancer needed for Center muscle spasms. prochlorper 0 Yes Estrogen 10mg Take 1 Univers azine 9-07 receptor tablet (10 ity of (Compazine) 00:00: positive mg) by [place] 10 mg 00 status mouth MD tablet (ER+) every 6 Anderso (six) n hours as Cancer needed for Center nausea or vomiting (not relieved by ondansetro n). loperamide 0 Yes Estrogen Take 1 U nivers (IMODIUM) 2 9-07 receptor capsule (2 ity of mg capsule 00:00: positive mg) by [place] 00 status mouth at (ER+) the first Anderso onset of n diarrhea, Cancer then 1 Center capsule (2 mg) as needed for unresolved diarrhea. Total maximum daily dose of 8 mg. prochlorper 2022-0 Yes Estrogen 10mg Take 1 [facility] azine 9-07 receptor tablet (10 ity of (Compazine) 00:00: positive mg) by [place] 10 mg 00 status mouth MD tablet (ER+) every 6 Anderso (six) n hours as Cancer needed for Center nausea or vomiting (not relieved by ondansetro n). prochlorper 2022-0 Yes Estrogen 10mg Take 1 Univers azine 9-07 receptor tablet (10 ity of (Compazine) 00:00: positive mg) by [place] 10 mg 00 status mouth MD tablet (ER+) every 6 Anderso (six) n hours as Cancer needed for Center nausea or vomiting (not relieved by ondansetro n). loperamide 2022- No Estrogen Take 1 Univers (IMODIUM) 2 07-17 receptor capsule (2 ity of mg capsule 00:00: 00:00 positive mg) by [place] 00 :00 status mouth at MD (ER+) the first Anderso onset of n diarrhea, Cancer then 1 Center capsule (2 mg) as needed for unresolved diarrhea. Total maximum daily dose of 8 mg. loperamide No Estrogen Take 1 Univers (IMODIUM) 2 07-17 receptor capsule (2 ity of mg capsule 00:00: 00:00 positive mg) by [place] 00 :00 status mouth at MD (ER+) the first Anderso onset of n diarrhea, Cancer then 1 Center capsule (2 mg) as needed for unresolved diarrhea. Total maximum daily dose of 8 mg. INV-(2022- No Estrogen 100mg Take 1 [facility] 045) 07-17 receptor capsule ity of MICHAELLE-222 00:00: 00:00 positive (100 mg) [place] (first 00 :00 status by mouth MD generation) (ER+) every 12 And erso 100 mg (twelve) n capsule hours for Cancer 28 days. Center Take on empty stomach. See pill diary. INV-(2022- No Estrogen 400mg Take 2 [facility] 045) 07-17 receptor tablets ity of ribociclib 00:00: 00:00 positive (400 mg) [place] 200 mg 00 :00 status by mouth MD tablet (ER+) daily for Anderso 21 days. n On, then 7 Cancer days off Center in 28 days cycle. Take on empty stomach. See pill diary. INV-(2022- No Estrogen 100mg Take 1 [facility] 045) 07-17 receptor capsule ity of MICHAELLE-222 00:00: 00:00 positive (100 mg) [place] (first 00 :00 status by mouth MD generation) (ER+) every 12 And erso 100 mg (twelve) n capsule hours for Cancer 28 days. Center Take on empty stomach. See pill diary. INV-(2022- No Estrogen 400mg Take 2 [facility] 045) 07-17 receptor tablets ity of ribociclib 00:00: 00:00 positive (400 mg) [place] 200 mg 00 :00 status by mouth MD tablet (ER+) daily for Anderso 21 days. n On, then 7 Cancer days off Center in 28 days cycle. Take on empty stomach. See pill diary. INV-(2022- No Estrogen 100mg Take 1 [facility] 045) 07-17 receptor capsule ity of MICHAELLE-222 00:00: 00:00 positive (100 mg) [place] (first 00 :00 status by mouth MD generation) (ER+) every 12 And erso 100 mg (twelve) n capsule hours for Cancer 28 days. Center Take on empty stomach. See pill diary. INV-(2022- No Estrogen 400mg Take 2 [facility] 045) 07-17 receptor tablets ity of ribociclib 00:00: 00:00 positive (400 mg) [place] 200 mg 00 :00 status by mouth MD tablet (ER+) daily for Anderso 21 days. n On, then 7 Cancer days off Center in 28 days cycle. Take on empty stomach. See pill diary. acetaminoph No Neoplasm 1{tbl} Take 1 [facility] en-codeine 07-07 related tablet by ity of (TYLENOL 00:00: 00:00 pain mouth 3 [place] #3) 300 00 :00 (acute) (three) MD mg-30 mg (chronic) times a And erso tablet day as n needed for Cancer moderate Center pain. acetaminoph No Neoplasm 1{tbl} Take 1 [facility] en-codeine 07-07 related tablet by ity of (TYLENOL 00:00: 00:00 pain mouth 3 [place] #3) 300 00 :00 (acute) (three) MD mg-30 mg (chronic) times a And erso tablet day as n needed for Cancer moderate Center pain. acetaminoph No Neoplasm 1{tbl} Take 1 [facility] en-codeine 07-07 related tablet by ity of (TYLENOL 00:00: 00:00 pain mouth 3 [place] #3) 300 00 :00 (acute) (three) MD mg-30 mg (chronic) times a And erso tablet day as n needed for Cancer moderate Center pain. HYDROmorpho 2022- No Metastatic 1mg Take 0.5-1 Univers ne 07-02 malignant tablets ity of (DILAUDID) 00:00: 00:00 neoplasm to (1-2 mg) [place] 2 mg tablet 00 :00 bone by mouth MD every 4 Anderso (four) n hours as Cancer needed for Center moderate pain. HYDROmorpho 2022- No Metastatic 1mg Take 0.5-1 Univers ne 07-02 malignant tablets ity of (DILAUDID) 00:00: 00:00 neoplasm to (1-2 mg) [place] 2 mg tablet 00 :00 bone by mouth MD every 4 Anderso (four) n hours as Cancer needed for Center moderate pain. HYDROmorpho 2022- No Metastatic 1mg Take 0.5-1 Univers ne 07-02 malignant tablets ity of (DILAUDID) 00:00: 00:00 neoplasm to (1-2 mg) [place] 2 mg tablet 00 :00 bone by mouth MD every 4 Anderso (four) n hours as Cancer needed for Center moderate pain. albuterol Yes Shortness 2{puff} Inhale 2 Univers (ProAir 8-18 of breath puffs by ity of HFA) 90 00:00: mouth [place] mcg/puff 00 every 6 MD inhaler (six) Anderso hours as n needed for Cancer wheezing Center or shortness of breath. albuterol 0 Yes Shortness 2{puff} Inhale 2 Univers (ProAir 8-18 of breath puffs by ity of HFA) 90 00:00: mouth [place] mcg/puff 00 every 6 MD inhaler (six) Anderso hours as n needed for Cancer wheezing Center or shortness of breath. albuterol Yes Shortness 2{puff} Inhale 2 Univers (ProAir 8-18 of breath puffs by ity of HFA) 90 00:00: mouth [place] mcg/puff 00 every 6 MD inhaler (six) Anderso hours as n needed for Cancer wheezing Center or shortness of breath. ibuprofen 2022- No Back pain, 600mg Take 1 Univers (ADVIL,MOTR 807-16 not tablet ity o f IN) 600 mg 00:00: 00:00 otherwise (600 mg) [place] tablet 00 :00 specified by mouth MD every 8 Anderso (eight) n hours as Cancer needed for Center moderate pain. ibuprofen 2022- No Back pain, 600mg Take 1 Univers (ADVIL,MOTR 06-27 not tablet ity o f IN) 600 mg 00:00: 00:00 otherwise (600 mg) [place] tablet 00 :00 specified by mouth MD every 8 Anderso (eight) n hours as Cancer needed for Center moderate pain. ibuprofen 2022- No Back pain, 600mg Take 1 Univers (ADVIL,MOTR 06-27 not tablet ity o f IN) 600 mg 00:00: 00:00 otherwise (600 mg) [place] tablet 00 :00 specified by mouth MD every 8 Anderso (eight) n hours as Cancer needed for Center moderate pain. albuterol 2022- No Shortness 2{puff} Inhale 2 Univers (ProAir 8-18 08-18 of breath puffs by it y of HFA) 90 00:00: 00:00 mouth [place] mcg/puff 00 :00 every 6 MD inhaler (six) Anderso hours as n needed for Cancer wheezing Center or shortness of breath. ibuprofen 2022- No Back pain, 600mg Take 1 [facility] (ADVIL,MOTR 818 18 not tablet ity o f IN) 600 mg 00:00: 00:00 otherwise (600 mg) [place] tablet 00 :00 specified by mouth MD every 8 Anderso (eight) n hours as Cancer needed for Center moderate pain. albuterol 2022- No Shortness 2{puff} Inhale 2 Univers (ProAir 8-18 08-18 of breath puffs by it y of HFA) 90 00:00: 00:00 mouth [place] mcg/puff 00 :00 every 6 MD inhaler (six) Anderso hours as n needed for Cancer wheezing Center or shortness of breath. ibuprofen 2022- No Back pain, 600mg Take 1 [facility] (ADVIL,MOTR 06-27 not tablet ity o f IN) 600 mg 00:00: 00:00 otherwise (600 mg) [place] tablet 00 :00 specified by mouth MD every 8 Anderso (eight) n hours as Cancer needed for Center moderate pain. albuterol 2022- No Shortness 2{puff} Inhale 2 Univers (ProAir 06-27 of breath puffs by it y of HFA) 90 00:00: 00:00 mouth [place] mcg/puff 00 :00 every 6 MD inhaler (six) Anderso hours as n needed for Cancer wheezing Center or shortness of breath. ibuprofen 2022- No Back pain, 600mg Take 1 [facility] (ADVIL,MOTR 06-27 not tablet ity o f IN) 600 mg 00:00: 00:00 otherwise (600 mg) [place] tablet 00 :00 specified by mouth MD every 8 Anderso (eight) n hours as Cancer needed for Center moderate pain. alpelisib 2022- No Estrogen Take 2 U nivers (PIQRAY) 06-24 receptor tablets ity of 300 mg/day 00:00: 00:00 positive (300 mg) [place] (150 mg x 00 :00 status by mouth MD 2) tablet (ER+) once daily And erso with [facility] alpelisib 2022- No Estrogen Take 2 U nivers (PIQRAY) 06-24 receptor tablets ity of 300 mg/day 00:00: 00:00 positive (300 mg) [place] (150 mg x 00 :00 status by mouth MD 2) tablet (ER+) once daily And erso with [facility] alpelisib 2022- No Estrogen Take 2 U nivers (PIQRAY) 06-24 receptor tablets ity of 300 mg/day 00:00: 00:00 positive (300 mg) [place] (150 mg x 00 :00 status by mouth MD 2) tablet (ER+) once daily And erso with [facility] acetaminoph 2022- No Neoplasm 1{tbl} Take 1 Univers en-codeine 8- 08-28 related tablet by ity of (TYLENOL 00:00: 00:00 pain mouth 3 [place] #3) 300 00 :00 (acute) (three) MD mg-30 mg (chronic) times a And erso tablet day as n needed for Cancer moderate Center pain. acetaminoph 2022- No Neoplasm 1{tbl} Take 1 Univers en-codeine 8- 08-28 related tablet by ity of (TYLENOL 00:00: 00:00 pain mouth 3 [place] #3) 300 00 :00 (acute) (three) MD mg-30 mg (chronic) times a And erso tablet day as n needed for Cancer moderate Center pain. acetaminoph 2022- No Neoplasm 1{tbl} Take 1 Univers en-codeine 8-02 15-28 related tablet by ity of (TYLENOL 00:00: 00:00 pain mouth 3 [place] #3) 300 00 :00 (acute) (three) MD mg-30 mg (chronic) times a And erso tablet day as n needed for Cancer moderate Center pain. diphenhydrA 2022- No 25mg Take 1 Uni vers MINE - 07-29 capsule ity of (BENADRYL) 14:01: 00:00 (25 mg) by [place] 25 mg 12 :00 mouth MD capsule twice Anderso daily. n Cancer [place] diphenhydrA 2022- No 25mg Take 1 Uni vers MINE - 07-29 capsule ity of (BENADRYL) 14:01: 00:00 (25 mg) by [place] 25 mg 12 :00 mouth MD capsule twice [place] daily. n Cancer Center diphenhydrA 2022- No 25mg Take 1 Uni vers MINE - 07-29 capsule ity of (BENADRYL) 14:01: 00:00 (25 mg) by [place] 25 mg 12 :00 mouth MD capsule twice [place]o daily. n Cancer Center lactulose Yes Metastatic 20g Take 30 mL Univers (CHRONULAC) 7-29 malignant (20 g) by ity of 10 gram/15 00:00: neoplasm to mouth 2 [place] mL solution 00 bone (two) MD times a Anderso day as n needed Cancer (constipat Center ion). lactulose 2023-0 Yes Metastatic 20g Take 30 mL Univers (CHRONULAC) 7-29 malignant (20 g) by ity of 10 gram/15 00:00: neoplasm to mouth 2 [place] mL solution 00 bone (two) MD times a Anderso day as n needed Cancer (constipat Center ion). lactulose 2023-0 Yes Metastatic 20g Take 30 mL Univers (CHRONULAC) 7-29 malignant (20 g) by ity of 10 gram/15 00:00: neoplasm to mouth 2 [place] mL solution 00 bone (two) MD times a Anderso day as n needed Cancer (constipat Center ion). HYDROmorpho 2023-0 2023- No Metastatic 2mg Take 1 Univers ne 06-07- malignant tablet (2 ity of (DILAUDID) 00:00: 00:00 neoplasm to mg) by [place] 2 mg tablet 00 :00 bone mouth MD every 4 Anderso (four) n hours as Cancer needed for Center moderate pain. HYDROmorpho 2023-0 2023- No Metastatic 2mg Take 1 Univers ne -08 07-23 malignant tablet (2 ity of (DILAUDID) 00:00: 00:00 neoplasm to mg) by [place] 2 mg tablet 00 :00 bone mouth MD every 4 Anderso (four) n hours as Cancer needed for Center moderate pain. HYDROmorpho 2023-0 2023- No Metastatic 2mg Take 1 Univers ne 06-07- malignant tablet (2 ity of (DILAUDID) 00:00: 00:00 neoplasm to mg) by [place] 2 mg tablet 00 :00 bone mouth MD every 4 Anderso (four) n hours as Cancer needed for Center moderate pain. milk 2023-0 2023- No Take by Univers thistle/NAC 06-05- mouth. ity o f /dandel/tur 12:36: 00:00 [place] kalpana (LIVER 40 :00 MD COMPLEX Anderso ORAL) n Cancer Center milk 3-0 2023- No Take by Univers thistle/NAC 06-05- mouth. ity o f /dandel/tur 12:36: 00:00 [place] kalpana (LIVER 40 :00 MD COMPLEX Anderso ORAL) n Cancer Center milk 2022- No Take by Univers thistle/NAC 06-05 mouth. ity o f /dandel/tur 12:36: 00:00 [place] kalpana (LIVER 40 :00 MD SAGE DINERO) n Cancer Center lidocaine 4 2022-2022- No 1{patch Place 1 Univers % ptmd 06-05 } patch on ity of 12:36: 00:00 the skin [place] 28 :00 as needed. Remove & Klaudia Discard n patch Cancer within 12 Center hours or as directed by MD. Remove old patch(es) before replacing new patch(es). lidocaine 4 2022- No 1{patch Place 1 Univers % ptmd 06-05 } patch on ity of 12:36: 00:00 the skin [place] 28 :00 as needed. Remove & Klaudia Discard n patch Cancer within 12 Center hours or as directed by . Remove old patch(es) before replacing new patch(es). lidocaine 4 2022- No 1{patch Place 1 Univers % ptmd 06-05 } patch on ity of 12:36: 00:00 the skin [place] 28 :00 as needed. Remove & Klaudia Discard n patch Cancer within 12 Center hours or as directed by . Remove old patch(es) before replacing new patch(es). hyoscyamine 2022- No Hydronephro TAKE 1 Univers sulfate 05-08- sis, not TABLET BY it y of (ANASPAZ) 00:00: 00:00 otherwise MOUTH [place] 0.125 mg 00 :00 specified EVERY 6 MD disintegrat HOURS Juan rso ing tablet NEEDED ( n BLADDER Cancer SPASMS) Center hyoscyamine 2022- No Hydronephro TAKE 1 Univers sulfate -08 08-12 sis, not TABLET BY it y of (ANASPAZ) 00:00: 00:00 otherwise MOUTH [place] 0.125 mg 00 :00 specified EVERY 6 MD disintegrat HOURS Juan rso ing tablet NEEDED ( n BLADDER Cancer SPASMS) [place] hyoscyamine 2022- No Hydronephro TAKE 1 Univers sulfate -08 08-12 sis, not TABLET BY it y of (ANASPAZ) 00:00: 00:00 otherwise MOUTH [place] 0.125 mg 00 :00 specified EVERY 6 MD disintegrat HOURS Juan rso ing tablet NEEDED ( n BLADDER Cancer SPASMS) [place] 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 [facility] alpelisib 2022- No Estrogen Take 2 U nivers (PIQRAY) 04-3024 receptor tablets ity of 300 mg/day 00:00: 00:00 positive (300 mg) [place] (150 mg x 00 :00 status by mouth 2) tablet (ER+) once daily And erso with [facility] alpelisib 2022- No Estrogen Take 2 U nivers (PIQRAY) 04-3024 receptor tablets ity of 300 mg/day 00:00: 00:00 positive (300 mg) [place] (150 mg x 00 :00 status by mouth 2) tablet (ER+) once daily And erso with [facility] alpelisib 2022- No Estrogen Take 2 U nivers (PIQRAY) 04-30 0824 receptor tablets ity of 300 mg/day 00:00: 00:00 positive (300 mg) [place] (150 mg x 00 :00 status by mouth 2) tablet (ER+) once daily And erso with [facility] ciprofloxac 2022- No 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 Cancer [place] acetaminoph 2022- No Neoplasm TAKE 1 Univers en-codeine 04-28 related TABLET BY ity of (TYLENOL 00:00: 00:00 pain MOUTH [place] #3) 300 00 :00 (acute) TWICE MD mg-30 mg (chronic) DAILY An derso tablet NEEDED FOR n MODERATE Cancer PAIN Center acetaminoph 2022- No Neoplasm TAKE 1 Univers en-codeine 04-28 related TABLET BY ity of (TYLENOL 00:00: 00:00 pain MOUTH [place] #3) 300 00 :00 (acute) TWICE MD mg-30 mg (chronic) DAILY An derso tablet NEEDED FOR n MODERATE Cancer PAIN Center acetaminoph 2022- No Neoplasm TAKE 1 Univers en-codeine 04-28 related TABLET BY ity of (TYLENOL 00:00: 00:00 pain MOUTH [place] #3) 300 00 :00 (acute) TWICE MD mg-30 mg (chronic) DAILY An derso tablet NEEDED FOR n MODERATE Cancer PAIN Center benzonatate Yes [id number] 200mg Take 2 Univers 100 mg 5-12 capsules ity of capsule 00:00: by mouth [place] 00 every 8 Medical (eight) Branch hours as needed for Cough. cetirizine Yes [id number] 10mg Take 1 U nivers (ZYRTEC) 10 5-12 tablet by ity of mg tablet 00:00: [place] 00 the Medical morning. Branch azelastine 2022-0 Yes [id number] 1{spray Use 1 Univers 137 mcg 5-12 } [place] in ity of (0.1 %) 00:00: each [place] nasal spray 00 nostril in Id dical the Branch morning and 1 [place] in the evening. Use in each nostril as directed fluticasone 2022-0 Yes [id number] 1{spray Use 1 Univers propionate 5-12 } [place] in ity o f 50 00:00: each [place] mcg/actuati 00 nostril in Id dical on nasal the Branch spray morning. amoxicillin 2022-0 202- No [id number] 1{tbl} Take 1 Univers -clavulanat 5-12 05-20 tablet by it y of e 00:00: 04:59 mouth in [place] (AUGMENTIN) 00 :00 [facility] 875-125 mg morning Branch per tablet and 1 tablet in the evening. Do all this for 7 days. blood-gluco 2022-0 2022- No Metastatic Use as Univers se meter 03-07 malignant instructed ity of kit 00:00: 00:00 neoplasm to [place] 00 :00 bone MD Klaudia gibbs [facility] Center blood-gluco 2022-0 2022- No Metastatic Use as Univers se meter 03-07 malignant instructed ity of kit 00:00: 00:00 neoplasm to [place] 00 :00 bone MD Klaudia gibbs [facility] Center blood-gluco 3-0 2022- No Metastatic Use as Univers se meter 03-07 malignant instructed ity of kit 00:00: 00:00 neoplasm to [place] 00 :00 babar [facility] lancets 2022-0 2022- No Metastatic 30U 30 Units [facility] 03-07-29 malignant by see ity of 00:00: 04:59 neoplasm to administra [place] 00 :00 babar bryant route n daily for Cancer 30 days. Center Use one lancet daily before breakfast for blood sugar monitoring lancets 2022-0 2022- No Metastatic 30U 30 Units [facility] 03-07 05-29 malignant by see ity of 00:00: 04:59 neoplasm to administra [place] 00 :00 babar bryant route n daily for Cancer 30 days. Center Use one lancet daily before breakfast for blood sugar monitoring lancets 2022- No Metastatic 30U 30 Units [facility] 4 05-29 malignant by see ity of 00:00: 04:59 neoplasm to administra [place] 00 :00 bone tion MD barbara Rudolph ns route n daily for Cancer 30 days. Center Use one lancet daily before breakfast for blood sugar monitoring blood sugar 2022- No Estrogen 1{strip 1 strip by [facility] diagnostic 03-06 receptor } miscellane ity of (glucose 00:00: 04:59 positive ous route [place] blood) strp 00 :00 status before MD (ER+) breakfast Anderso for 30 n days. [facility] blood sugar 2022- No Estrogen 1{strip 1 strip by [facility] diagnostic 03-06 receptor } misc[place]ane ity of (glucose 00:00: 04:59 positive ous route [place] blood) strp 00 :00 status before MD (ER+) breakfast Anderso for 30 n days. [facility] blood sugar 2022- No Estrogen 1{strip 1 strip by [facility] diagnostic 03-06 receptor } misc[place]ane ity of (glucose 00:00: 04:59 positive ous route [place] blood) strp 00 :00 status before MD (ER+) breakfast Anderso for 30 n days. [facility] Center acetaminoph 2022- No Neoplasm 1{tbl} Take 1 Univers en-codeine 03-05- related tablet by ity of (TYLENOL 00:00: 00:00 pain mouth 2 [place] #3) 300 00 :00 (acute) (two) MD mg-30 mg (chronic) times a And erso tablet day as n needed for Cancer moderate Center pain. acetaminoph 2022- No Neoplasm 1{tbl} Take 1 Univers en-codeine 03-05- related tablet by ity of (TYLENOL 00:00: 00:00 pain mouth 2 [place] #3) 300 00 :00 (acute) (two) MD mg-30 mg (chronic) times a And erso tablet day as n needed for Cancer moderate Center pain. acetaminoph 2022- No Neoplasm 1{tbl} Take 1 Univers en-codeine 4-26 06-19 related tablet by ity of (TYLENOL 00:00: 00:00 pain mouth 2 [place] #3) 300 00 :00 (acute) (two) MD mg-30 mg (chronic) times a And erso tablet day as n needed for Cancer moderate Center pain. ibuprofen 2022- No TAKE 1 Unive rs (ADVIL,MOTR 01-28-24 TABLET BY it y of IN) 800 mg 00:00: 00:00 MOUTH [place] tablet 00 :00 EVERY 6 MD HOURS WITH Anderso FOOD [facility] ibuprofen 2022- No TAKE 1 Unive rs (ADVIL,MOTR 01-28-24 TABLET BY it y of IN) 800 mg 00:00: 00:00 MOUTH [place] tablet 00 :00 EVERY 6 MD HOURS WITH Anderso FOOD [facility] ibuprofen 2022- No TAKE 1 Unive rs (ADVIL,MOTR 01-2824 TABLET BY it y of IN) 800 mg 00:00: 00:00 MOUTH [place] tablet 00 :00 EVERY 6 MD HOURS WITH Anderso FOOD [facility] ALPRAZolam 2022- No .25mg Take 1 Uni vers (XANAX) 01-09 tablet ity of 0.25 mg 00:00: 00:00 (0.25 mg) [place] tablet 00 :[facility] ALPRAZolam 2022- No .25mg Take 1 Uni vers (XANAX) 01-09 tablet ity of 0.25 mg 00:00: 00:00 (0.25 mg) [place] tablet [facility] :[facility] ALPR[facility]olam 2022- No .25mg Take 1 Uni vers (XANAX) 01-09 tablet ity of 0.25 mg 00:00: 00:00 (0.25 mg) [place] tablet 00 :[facility] palbociclib 2022- No 100mg Take 1 Un tamela (IBRANCE) 01-08 capsule ity of 100 mg 09:49: 00:00 (100 mg) [place] capsule 47 :00 by mouth MD daily. [facility] palbociclib 2022- No 100mg Take 1 Un tamela (IBRANCE) 01-08 capsule ity of 100 mg 09:49: 00:00 (100 mg) [place] capsule 47 :00 by mouth MD daily. [facility] palbociclib 2022- No 100mg Take 1 Un tamela (IBRANCE) 01-08 capsule ity of 100 mg 09:49: 00:00 (100 mg) [place] capsule 47 :00 by mouth MD daily. [facility] traZODone 2022- No 100mg Take 1 Univ ers (DESYREL) 12-04 tablet ity of 100 mg 12:33: 00:00 (100 mg) [place] tablet 08 :00 by mouth MD daily. [facility] traZODone 2022- No 100mg Take 1 Univ ers (DESYREL) 12-04 tablet ity of 100 mg 12:33: 00:00 (100 mg) [place] tablet 08 :00 by mouth MD daily. [facility] traZODone 2022- No 100mg Take 1 Univ ers (DESYREL) 12-04 tablet ity of 100 mg 12:33: 00:00 (100 mg) [place] tablet 08 :00 by mouth MD daily. [facility] prochlorper 2022- No Metastatic Take 1 Univers azine 12-04 malignant tablet by ity of (Compazine) 00:00: 00:00 neoplasm to mouth [place] 10 mg 00 :00 bone every 6 MD tablet hours as Anderso needed for n nausea/vom Cancer [facility] alpelisib 2022- No Estrogen Take 2 U nivers (PIQRAY) 12-0424 receptor tablets ity of 300 mg/day 00:00: 00:00 positive (300 mg) [place] (150 mg x 00 :00 status by mouth MD 2) tablet (ER+) once daily And erso with food [facility] prochlorper 2022- No Metastatic Take 1 Univers azine 1-25 08-24 malignant tablet by ity of (Compazine) 00:00: 00:00 neoplasm to mouth [place] 10 mg 00 :00 bone every 6 MD tablet hours as Anderso needed for n nausea/vom Cancer [facility] alpelisib 2022- No Estrogen Take 2 U nivers (PIQRAY) 12-0424 receptor tablets ity of 300 mg/day 00:00: 00:00 positive (300 mg) [place] (150 mg x 00 :00 status by mouth MD 2) tablet (ER+) once daily And erso with food [facility] prochlorper 2022- No Metastatic Take 1 Univers azine 12-04 malignant tablet by ity of (Compazine) 00:00: 00:00 neoplasm to mouth [place] 10 mg 00 :00 bone every 6 MD tablet hours as Anderso needed for n nausea/vom Cancer [facility] alpelisib 2022- No Estrogen Take 2 U nivers (PIQRAY) 12-04 receptor tablets ity of 300 mg/day 00:00: 00:00 positive (300 mg) [place] (150 mg x 00 :00 status by mouth MD 2) tablet (ER+) once daily And erso with food [facility] palbociclib 2022- No Estrogen 100mg Take 1 Univers (Ibrance) 11-19 receptor tablet ity of 100 mg 00:00: 00:00 positive (100 mg) [place] tablet 00 :00 status by mouth MD (ER+) daily for Anderso 21 days. n Repeat Cancer every 28 Center days. palbociclib 2022- No Estrogen 100mg Take 1 Univers (Ibrance) 11-19 receptor tablet ity of 100 mg 00:00: 00:00 positive (100 mg) [place] tablet 00 :00 status by mouth MD (ER+) daily for Anderso 21 days. n Repeat Cancer every 28 Center days. palbociclib 2022- No Estrogen 100mg Take 1 Univers (Ibrance) 11-19 receptor tablet ity of 100 mg 00:00: 00:00 positive (100 mg) [place] tablet 00 :00 status by mouth MD (ER+) daily for Anderso 21 days. n Repeat Cancer every 28 Center days. gabapentin 2021-11- No Metastatic 600mg Take 2 Univers (NEURONTIN) 12-26 malignant capsules ity of 300 mg 00:00: 00:00 neoplasm to (600 mg) [place] capsule 00 :00 [facility] gabapentin 2021-11- No Metastatic 600mg Take 2 Univers (NEURONTIN) 12-26 malignant capsules ity of 300 mg 00:00: 00:00 neoplasm to (600 mg) [place] capsule 00 :00 bone [facility] gabapentin 2021-11- No Metastatic 600mg Take 2 Univers (NEURONTIN) 12-26 malignant capsules ity of 300 mg 00:00: 00:00 neoplasm to (600 mg) [place] capsule 00 :00 bone [facility] acetaminoph 2021-11- No Metastatic TAKE 1 Univers en-codeine -06 06- malignant TABLET BY ity of (TYLENOL 00:00: 00:00 neoplasm to MOUTH [place] #3) 300 00 :00 bone THREE MD mg-30 mg TIMES Anderso tablet DAILY n NEEDED FOR Cancer MODERATE Center PAIN acetaminoph 2021-11- No Metastatic TAKE 1 Univers en-codeine -06 06-27 malignant TABLET BY ity of (TYLENOL 00:00: 00:00 neoplasm to MOUTH [place] #3) 300 00 :00 bone THREE MD mg-30 mg TIMES Anderso tablet DAILY n NEEDED FOR Cancer MODERATE Center PAIN acetaminoph 2021-11- No Metastatic TAKE 1 Univers en-codeine - 07-27 malignant TABLET BY ity of (TYLENOL 00:00: 00:00 neoplasm to MOUTH [place] #3) 300 00 :00 bone THREE MD mg-30 mg TIMES [place] tablet DAILY n NEEDED FOR Cancer MODERATE Center PAIN palbociclib 2021-11- No 100mg Take 100 Univers (IBRANCE) 0-27 10-27 mg by ity of 125 mg 11:08: 00:00 mouth [place] capsule 29 :00 daily. Every 21 Anderso days n Cancer Center palbociclib 2021-11- No 100mg Take 100 Univers (IBRANCE) 0-27 10-27 mg by ity of 125 mg 11:08: 00:00 mouth [place] capsule 29 :00 daily. Every 21 Anderso days [facility] palbociclib 2021-11- No 100mg Take 100 Univers (IBRANCE) 0-27 10-27 mg by ity of 125 mg 11:08: 00:00 mouth [place] capsule 29 :00 daily. Every 21 Anderso days [facility] doxycycline 2021-11- No Lymphedema 100mg Take 1 Univers (Vibramycin 0-25 05-24 capsule ity of ) 100 MG 00:00: 00:00 (100 mg) [place] capsule 00 :00 by mouth MD twice Anderso daily. [facility] doxycycline 2021-11- No Lymphedema 100mg Take 1 Univers (Vibramycin 0-25 05-24 capsule ity of ) 100 MG 00:00: 00:00 (100 mg) [place] capsule 00 :00 by mouth twice Anderso daily. [facility] doxycycline 2021-11- No Lymphedema 100mg Take 1 Univers (Vibramycin 0-25 05-24 capsule ity of ) 100 MG 00:00: 00:00 (100 mg) [place] capsule 00 :00 by mouth twice Anderso daily. [facility] acetaminoph 2021-11- No Estrogen 1{tbl} Take 1 [facility] en-codeine 0-05 07-29 receptor tablet by ity of (TYLENOL 00:00: 00:00 positive mouth 2 [place] #3) 300 00 :00 status (two) MD mg-30 mg (ER+) times a Anderso tablet day as n needed for Cancer moderate Center pain. acetaminoph 2021-11- No Estrogen 1{tbl} Take 1 [facility] en-codeine 0-05 07-29 receptor tablet by ity of (TYLENOL 00:00: 00:00 positive mouth 2 [place] #3) 300 00 :00 status (two) MD mg-30 mg (ER+) times a [place]o tablet day as n needed for Cancer moderate Center pain. acetaminoph 2021-11- No Estrogen 1{tbl} Take 1 Univers en-codeine 0-05 07-29 receptor tablet by ity of (TYLENOL 00:00: 00:00 positive mouth 2 [place] #3) 300 00 :00 status (two) MD mg-30 mg (ER+) times a [place]o tablet day as n needed for Cancer moderate Center pain. palbociclib 2021- No Metastatic 100mg Take 1 Univers (Ibrance) 08-06 10-19 malignant tablet it y of 100 mg 00:00: 04:59 neoplasm to (100 mg) [place] tablet 00 :00 bone by mouth MD daily for Anderso 21 days. n Repeat Cancer every 28 Center days. 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 hyoscyamine 2022- No Hydronephro .125mg Dissolve 1 Univers sulfate 07-04 sis due to tablet ity of (ANASPAZ) 00:00: 00:00 ureteral (0.125 mg) [place] 0.125 mg 00 :00 obstruction on the [place] disintegrat tongue Leandro o ing tablet every 6 n (six) Cancer hours as Center needed (bladder spasms). hyoscyamine 2022- No Hydronephro .125mg Dissolve 1 [facility] sulfate 07-04 sis due to tablet ity of (ANASPAZ) 00:00: 00:00 ureteral (0.125 mg) [place] 0.125 mg 00 :00 obstruction on the MD disintegrat tongue Leandro o ing tablet every 6 n (six) Cancer hours as Center needed (bladder spasms). hyoscyamine 2022- No Hydronephro .125mg Dissolve 1 [facility] sulfate 07-04 sis due to tablet ity of (ANASPAZ) 00:00: 00:00 ureteral (0.125 mg) [place] 0.125 mg 00 :00 obstruction on the MD disintegrat tongue Leandro o ing tablet every 6 n (six) Cancer hours as Center needed (bladder spasms). tamsulosin 2022- No Hydronephro .4mg Take 1 Univers (FLOMAX) 07-04 05-24 sis due to capsule i ty of 0.4 mg 24 00:00: 00:00 ureteral (0.4 mg) [place] hr capsule 00 :00 obstruction by mouth MD daily as Anderso needed for n stent Cancer pain/left Center flank pain. tamsulosin 2022- No Hydronephro .4mg Take 1 Univers (FLOMAX) 8 05-24 sis due to capsule i ty of 0.4 mg 24 00:00: 00:00 ureteral (0.4 mg) [place] hr capsule 00 :00 obstruction by mouth MD daily as Anderso needed for n stent Cancer pain/left Center flank pain. tamsulosin 2022- No Hydronephro .4mg Take 1 Univers (FLOMAX) 8-25 05-24 sis due to capsule i ty of 0.4 mg 24 00:00: 00:00 ureteral (0.4 mg) [place] hr capsule 00 :00 obstruction by mouth MD daily as Anderso needed for n stent Cancer pain/left Center flank pain. gabapentin 2021- No Metastatic 300mg Take 1 Univers (NEURONTIN) 7-14 12-16 malignant capsule ity of 300 mg 00:00: 00:00 neoplasm to (300 mg) [place] capsule 00 :00 [facility] gabapentin 2021- No Metastatic 300mg Take 1 Univers (NEURONTIN) 05-23 malignant capsule ity of 300 mg 00:00: 00:00 neoplasm to (300 mg) [place] capsule 00 :00 bone [facility] gabapentin 2021- No Metastatic 300mg Take 1 Univers (NEURONTIN) 05-23 malignant capsule ity of 300 mg 00:00: 00:00 neoplasm to (300 mg) [place] capsule 00 :00 bone by mouth MD at [facility]. [facility] venlafaxine 2022- No Metastatic 37.5mg Take 1 Univers (Effexor 04-18 malignant capsule it y of XR) 37.5 mg 00:00: 00:00 neoplasm to (37.5 mg) [place] 24 hr 00 :00 bone by mouth MD capsule every Anderso morning. [facility] venlafaxine 2022- No Metastatic 37.5mg Take 1 Univers (Effexor 04-18 malignant capsule it y of XR) 37.5 mg 00:00: 00:00 neoplasm to (37.5 mg) [place] 24 hr 00 :00 bone by mouth MD capsule every Anderso morning. [facility] venlafaxine 2022- No Metastatic 37.5mg Take 1 Univers (Effexor 04-18 malignant capsule it y of XR) 37.5 mg 00:00: 00:00 neoplasm to (37.5 mg) [place] 24 hr 00 :00 bone by mouth MD capsule every Anderso morning. [facility] letrozole 2022- No Metastatic 2.5mg Take 1 Univers (FEMARA) 03-19 malignant tablet ity of 2.5 mg 00:00: 00:00 neoplasm to (2.5 mg) [place] tablet 00 :00 bone by mouth MD daily. [facility] letrozole 2022- No Metastatic 2.5mg Take 1 Univers (FEMARA) 03-19 malignant tablet ity of 2.5 mg 00:00: 00:00 neoplasm to (2.5 mg) [place] tablet 00 :00 bone by mouth MD daily. [facility] letrozole 2022- No Metastatic 2.5mg Take 1 Univers (FEMARA) 5-10 01-08 malignant tablet ity of 2.5 mg 00:00: 00:00 neoplasm to (2.5 mg) [place] tablet 00 :00 bone by mouth MD daily. [facility] [place] venlafaxine 2022- No TAKE 1 Uni vers (EFFEXOR-XR 2-08 05-24 CAPSULE BY i ty of ) 37.5 mg 00:00: 00:00 MOUTH [place]CE [place] 24 [place] 00 :00 DAILY WITH MD capsule FOOD FOR Anderso GENERALIZE n D ANXIETY Cancer DISORDER Center venlafaxine 2022- No TAKE 1 Uni vers (EFFEXOR-XR 2- 05-24 CAPSULE BY i ty of ) 37.5 mg 00:00: 00:00 MOUTH ONCE [place] 24 [place] 00 :00 DAILY WITH MD capsule FOOD FOR [place]o GENERALIZE n D ANXIETY [facility] DISORDER [facility] venlafaxine 2022- No TAKE 1 Uni vers (EFFEXOR-XR 2- 05-24 CAPSULE BY i ty of ) 37.5 mg 00:00: 00:00 MOUTH ONCE [place] 24 [place] 00 :00 DAILY WITH MD capsule FOOD FOR [place]o GENERALIZE n D ANXIETY Cancer DISORDER Center ondansetron 2022- No Nausea 8mg Take 1 U nivers (ZOFRAN) 8 11-22-24 tablet (8 ity of mg tablet 00:00: 00:00 mg) by [place] 00 :00 mouth MD every 8 Anderso (eight) n hours as Cancer needed for Center nausea. prochlorper 2022- No Nausea 10mg Take 1 U nivers azine 11-22-24 tablet (10 ity of (Compazine) 00:00: 00:00 mg) by Kavin as 10 mg 00 :00 mouth MD tablet every 6 Anderso (six) n hours as Cancer needed for Center nausea or vomiting. ondansetron 2022- No Nausea 8mg Take 1 U nivers (ZOFRAN) 8 11-22 05-24 tablet (8 ity of mg tablet 00:00: 00:00 mg) by [place] 00 :00 mouth MD every 8 Anderso (eight) n hours as Cancer needed for Center nausea. prochlorper 2022- No Nausea 10mg Take 1 U nivers azine 1-13 05-24 tablet (10 ity of (Compazine) 00:00: 00:00 mg) by [place] as 10 mg 00 :00 mouth MD tablet every 6 Anderso (six) n hours as Cancer needed for Center nausea or vomiting. ondansetron 2022- No Nausea 8mg Take 1 U nivers (ZOFRAN) 8 11-22 05-24 tablet (8 ity of mg tablet 00:00: 00:00 mg) by [place] 00 :00 mouth MD every 8 Anderso (eight) n hours as Cancer needed for Center nausea. prochlorper 2022- No Nausea 10mg Take 1 U nivers azine 11-22-24 tablet (10 ity of (Compazine) 00:00: 00:00 mg) by [place] 10 mg 00 :00 mouth MD tablet every 6 Anderso (six) n hours as Cancer needed for Center nausea or vomiting. omeprazole Yes TAKE 1 Unive rs (PriLOSEC) 11-18 CAPSULE BY ity of 40 MG 00:00: MOUTH IN [place] capsule 00 THE [facility] omeprazole 2022- No TAKE 1 Univ ers (PriLOSEC) 11-18 CAPSULE BY it y of 40 MG 00:00: 00:00 MOUTH IN [place] capsule 00 :00 THE [facility] omeprazole 2022- No TAKE 1 Univ ers (PriLOSEC) 11-18 CAPSULE BY it y of 40 MG 00:00: 00:00 MOUTH IN [place] capsule 00 :00 THE [facility] ALPRAZolam 2022- No TAKE 1 Univ ers (XANAX) 0.5 11-16 TABLET BY it y of mg tablet 00:00: 00:00 MOUTH ONCE [place] 00 :00 DAILY. [facility]- No TAKE 1 Univ ers (XANAX) 0.5 11-16 TABLET BY it y of mg tablet 00:00: 00:00 MOUTH ONCE [place] 00 :00 DAILY. MD Klaudia gibbs [facility] ALPRAZolam 2022- No TAKE 1 Univ ers (XANAX) 0.5 11-16 TABLET BY it y of mg tablet 00:00: 00:00 MOUTH ONCE [place] 00 :00 DAILY. MD Klaudia gibbs [facility] HOME CONNECT LPN Thyroid 2020-11 Yes TAKE 1 Unive rs 120 mg tab 2-30 TABLET BY ity of tablet 00:00: MOUTH ONCE [place] 00 DAILY MD Klaudia gibbs [facility] HOME CONNECT LPN Thyroid 2020-11 Yes TAKE 1 Unive rs 120 mg tab 2-30 TABLET BY ity of tablet 00:00: MOUTH ONCE 00 DAILY MD Klaudia gibbs [facility] HOME CONNECT LPN Thyroid 2020-11 Yes TAKE 1 Unive rs 120 mg tab 2-30 TABLET BY ity of tablet 00:00: MOUTH ONCE [place] 00 DAILY MD Klaudia gibbs [facility] acetaminoph 2020-11- No TAKE 1 Uni vers en-codeine 2-09 03- TABLET BY ity of (TYLENOL 00:00: 00:00 MOUTH [place] #3) 300 00 :00 EVERY 6 MD mg-30 mg HOURS [place] tablet NEEDED FOR n PAIN WHEN Cancer AWAKE Center acetaminoph 2020-11- No TAKE 1 Uni vers en-codeine 2-30 -26 TABLET BY ity of (TYLENOL 00:00: 00:00 MOUTH [place] #3) 300 00 :00 EVERY 6 MD mg-30 mg HOURS [place] tablet NEEDED FOR n PAIN WHEN Cancer AWAKE Center acetaminoph 2020-11- No TAKE 1 Uni vers en-codeine 2-30 -26 TABLET BY ity of (TYLENOL 00:00: 00:00 MOUTH [place] #3) 300 00 :00 EVERY 6 MD mg-30 mg HOURS [place] tablet NEEDED FOR n PAIN WHEN Cancer AWAKE Center letrozole 2020-11- No TAKE 1 Unive rs (FEMARA) 01-03 TABLET BY ity o f 2.5 mg 00:00: 00:00 MOUTH ONCE [place] tablet 00 :00 DAILY MD Klaudia gibbs [facility] letrozole 2020-11- No TAKE 1 Unive rs (FEMARA) 01-03 TABLET BY ity o f 2.5 mg 00:00: 00:00 M[place]TH [place]CE [place] tablet 00 :00 DAILY [facility] 2020-11- No TAKE 1 Unive rs (FEMARA) 01-03 TABLET BY ity o f 2.5 mg 00:00: 00:00 [place]CE [place] tablet 00 :00 [facility]ILY [facility] Const[facility] 2020-11- No TAKE 10 Uni vers 10 gram/15 1-30 07-27 GRAMS ONCE it y of mL solution 00:00: 00:00 DAILY FOR [place] 00 :00 CONSTIPATI ON [facility] Constulose 2020-11- No TAKE 10 Uni vers 10 gram/15 1-30 07-27 GRAMS ONCE it y of mL solution 00:00: 00:00 DAILY FOR [place] 00 :00 CONSTIPATI ON [facility] Constulose 2020-11- No TAKE 10 Uni vers 10 gram/15 -30 07-27 GRAMS ONCE it y of mL solution 00:00: 00:00 DAILY FOR [place] 00 :00 CONSTIPATI ON [facility] Ventolin 2020-11- No 1{puff} Inhale 1 U nivers HFA 90 11-28 puff by ity of mcg/actuati 00:00: 00:00 [place] inhaler 00 :00 every 6 MD (six) Anderso hours as n needed for Cancer wheezing Center or shortness of breath. famotidine 2020-11- No 20mg Take 1 Univ ers (PEPCID) 20 11-28 tablet (20 i ty of mg tablet 00:00: 00:00 mg) by [place] 00 :00 mouth MD nightly as Anderso needed for n indigestio Cancer n, Center heartburn or reflux. Ventolin 2020-11- No 1{puff} Inhale 1 U nivers HFA 90 11-28 puff by ity of mcg/actuati 00:00: 00:[place] inhal[place] 00 :00 every 6 MD (six) Anderso hours as n needed for Cancer wheezing Center or shortness of breath. famotidine 2020-11- No 20mg Take 1 [facility] ers (PEPCID) 20 11-28 tablet (20 i ty of mg tablet 00:00: 00:00 mg) by [place] 00 :00 mouth MD nightly as Anderso needed for n indigestio Cancer n, Center heartburn or reflux. Ventolin 2020-11- No 1{puff} Inhale 1 U nivers HFA 90 11-28 puff by ity of mcg/actuati 00:00: 00:00 [place] inhal[place] 00 :00 every 6 MD (six) [place] hours as n needed for Cancer wheezing Center or shortness of breath. famotidine 2020-11 No 20mg Take 1 [facility] ers (PEPCID) 20 11-28 tablet (20 i ty of mg tablet 00:00: 00:00 mg) by [place] 00 :00 mouth MD nightly as Anderso needed for n indigestio Cancer n, Center heartburn or reflux. multivitami 2018-11 Yes 1{capsu QD Take 1 M ethodi n capsule 0-23 le} capsule by st 13:47: mouth [facility] 11 daily. l multivitami 2018-11 Yes 1{capsu QD Take 1 M ethodi n capsule 0-23 le} capsule by st 13:47: mouth [facility] 11 daily. l multivitami 2018-11 Yes 1{capsu QD Take 1 M ethodi n capsule 0-23 le} capsule by st 13:47: mouth [facility] 11 daily. l sulfaSALAzi 2018-11 Yes 500mg Q.5D Take 500 M ethodi ne 0-[address] (AZULFIDINE 00:00: mouth [facility] ) 500 mg 00 (two) l tablet times a day. as directed - sulfaSALAzi 2018-11 Yes 500mg Q.5D Take 500 M ethodi ne 0-[address] (AZULFIDINE 00:00: mouth [facility] ) 500 mg 00 (two) l tablet times a day. as directed - sulfaSALAzi 2018-11 Yes 500mg Q.5D Take 500 M ethodi ne 0-[address] (AZULFIDINE 00:00: mouth [facility] ) 500 mg 00 (two) l tablet times a day. as directed - ALPRAZolam Yes .5mg [id number] Take 0.5 [facility] (XANAX) 0.5 9-24 [id number] mg by s t MG tablet 00:00: 3D mouth 3 Hospi ta 00 (three) l times a day as needed. ALPRAZolam Yes .5mg [id number] Take 0.5 [facility] (XANAX) 0.5 9-24 [id number] mg by s t MG tablet 00:00: 3D mouth 3 Hospi ta 00 (three) l times a day as needed. ALPRAZolam Yes .5mg [id number] Take 0.5 [facility] (XANAX) 0.5 9-24 [id number] mg by s t MG tablet 00:00: 3D mouth 3 Hospi ta 00 (three) l times a day as needed. ARMOUR Yes [facility] THYROID 120 7-21 st mg tablet 00:00: Hospita 00 l ARMOUR Yes [facility] THYROID 120 7-[facility] mg tablet 00:00: Hospita 00 l ARMOUR Yes [facility] THYROID 120 7-[facility] mg tablet 00:00: Hospita 00 l Immunizations Ordered Immunization Filled Immunization Date Status Commen ts Source Name Name Moderna SARS-CoV-2 Unknown Completed Univer sity of Vaccination [place] [facility] Moderna SARS-CoV-2 Unknown Completed Univer sity of Vaccination [place] [facility] Tdap Unknown Completed [facility] Moderna SARS-CoV-2 Unknown Completed Univer sity of Vaccination [place] [facility] Moderna SARS-CoV-2 Unknown Completed Univer sity of Vaccination [place] [facility] Tdap Unknown Completed [facility] Moderna SARS-CoV-2 Unknown Completed Univer sity of Vaccination [place] [facility] Moderna SARS-CoV-2 Unknown Completed Univer sity of Vaccination [place] [facility] Tdap Unknown Completed [facility] Vital Signs Vital Name Observation Time Observation Value Comments Source Systolic blood 2023-03-21 19:40:00 121 mm[Hg] Univer sity of pressure [facility] Diastolic blood 2023-03-21 19:40:00 85 mm[Hg] Unive rsity of pressure [facility] [place] [facility] Heart rate 2023-03-21 19:40:00 73 /min [facility] [place] [facility] Body temperature 2023-03-21 19:40:00 36.78 Miroslava Univ ersity [facility] [place] [facility] Respiratory rate 2023-03-21 19:40:00 16 /min Univ ers[facility] [place] [facility] Body height 2023-03-21 19:40:00 157.5 cm [facility] [place] [facility] Body weight 2023-03-21 19:40:00 70.449 kg [facility] [place] [facility] BMI 2023-03-21 19:40:00 28.41 kg/m2 [facility] [place] [facility] Oxygen saturation in 2023-03-21 19:40:00 96 /min University of Arterial blood by [place] Maima[place] francia Pulse oximetry Branch Systolic blood 2022-03-29 00:30:00 155 mm[Hg] Univer sity of pressure [place] [facility] Diastolic blood 2022-03-29 00:30:00 83 mm[Hg] Unive rsity of pressure [place] [facility] Heart rate 2022-03-29 00:30:00 84 /min [facility] [place] [facility] Body temperature 2022-03-29 00:30:00 37 Miroslava Univ ersity [facility] [place] [facility] Respiratory rate 2022-03-29 00:30:00 20 /min Univ ers[facility] [place] [facility] Body height 2022-03-29 00:30:00 157.5 cm [facility] [place] [facility] Body weight 2022-03-29 00:30:00 65.318 kg [facility] [place] [facility] BMI 2022-03-29 00:30:00 26.34 kg/m2 [facility] [place] [facility] Oxygen saturation in 2022-03-29 00:30:00 100 /min University of Arterial blood by [place] Maimaibao francia Pulse oximetry Branch Heart rate 2023-09-03 18:25:00 90 /min Universi ty of [facility] Respiratory rate 2023-09-03 18:25:00 20 /min Univ ersayleen of [place] [facility] Oxygen saturation in 2023-09-03 18:25:00 100 /min University of Arterial blood by [place] MD A nderson Pulse oximetry Cancer Center Systolic blood 2023-09-03 12:59:56 132 mm[Hg] Univer sity of pressure [place] [facility] Diastolic blood 2023-09-03 12:59:56 76 mm[Hg] Unive rsity of pressure [place] [facility] Body temperature 2023-09-03 12:59:56 36.72 Miroslava Univ ersity of [facility] Body height 2023-08-24 02:46:45 157.5 cm Universi ty of [facility] Body weight 2023-08-24 02:46:45 67.8 kg Universi ty of [place] BMI 2023-08-24 02:46:45 27.33 kg/m2 Universi ty of [place] Systolic blood 2023-08-14 19:50:00 110 mm[Hg] Univer sity of pressure [place] [facility] Diastolic blood 2023-08-14 19:50:00 71 mm[Hg] Unive rsity of pressure [place] [facility] Heart rate 2023-08-14 19:50:00 80 /min Universi ty of [facility] Body temperature 2023-08-14 19:50:00 36.39 Miroslava Univ ersity of [place] Respiratory rate 2023-08-14 19:50:00 18 /min Univ ersity of [place] [facility] Oxygen saturation in 2023-08-14 19:50:00 96 /min University of Arterial blood by [place]ela castanon Pulse oximetry [facility] Center Body height 2023-08-11 18:50:25 157.5 cm Universi ty of [place] Body weight 2023-08-11 18:50:25 66.1 kg Universi ty of [facility] BMI 2023-08-11 18:50:25 26.65 kg/m2 Universi ty [facility] [place] Procedures Procedure Date / Time Performing Clinician Source Performed POC GLUCOSE SCREEN 2023-09-03 13:27:00 [facility] er Center OSCILLATORY PEP 2023-09-03 03:37:35 [facility] CHEST W CONTRAST 2023-09-02 20:27:00 Aden Muñoz [facility] [place] er Center POC GLUCOSE SCREEN 2023-09-02 13:19:00 Fu, [facility] er Center POC GLUCOSE SCREEN 2023-09-02 01:37:00 Fu, [facility] er Center POC GLUCOSE SCREEN 2023-09-01 17:10:00 Fu, [facility] er Center POC GLUCOSE SCREEN 2023-09-01 12:26:00 Fu, [facility] er Center COMPREHENSIVE METABOLIC 2023-09-01 11:56:00 [facility] MAGNESIUM LEVEL 2023-09-01 11:56[facility]US [facility] 2023-09-01 11:56:00 Melissa [facility] Center COMPLETE BLOOD COUNT W/ 2023-09-01 11:55:00 Melissa [facility] er Center .CBC 2023-09-01 11:55:00 [facility] Center POC GLUCOSE SCREEN 2023-09-01 04:39:00 Guillermo, [facility] er Center POC GLUCOSE SCREEN 2023-09-01 01:12:00 Fu, [facility] er Center US ARM VENOUS DOPPLER RIGHT 2023-09-01 00:38:[address] [facility] [place] er Center BLOOD CULTURE 2023-08-31 21:28:00 Marita Logan Allan [facility] er Center POC GLUCOSE SCREEN 2023-08-31 19:23:00 Fu, [facility] er Center POC GLUCOSE SCREEN 2023-08-31 14:24:00 Fu, [facility] er Center XR CHEST 1 VW PORTABLE 2023-08-31 14:16:26 [facility] COMPLETE BLOOD COUNT W/ 2023-08-31 12:22:00 Tino Torres [facility] er Center COMPREHENSIVE METABOLIC 2023-08-31 12:22:00 Melissa [facility] er Center MAGNESIUM LEVEL 2023-08-31 12:22:00 Melissa [facility] er Center PHOSPHORUS LEVEL 2023-08-31 12:22:00 Melissa [facility] [place] .CBC 2023-08-31 12:22:00 Melissa [facility] [place] NT PRO BNP 2023-08-31 12:22:00 Aric Dewitt [facility] US LEG VENOUS DOPPLER RIGHT 2023-08-31 05:18:[address] [facility] [place] er Center POC GLUCOSE SCREEN 2023-08-31 03:33:00 Fu, [facility] er Center POC GLUCOSE SCREEN 2023-08-30 23:11:00 Fu, [facility] er Center POC GLUCOSE SCREEN 2023-08-30 16:42:00 Guillermo, [facility] er Center COMPLETE BLOOD COUNT W/ 2023-08-30 11:02:00 Tino Torres [facility] er Center COMPREHENSIVE METABOLIC 2023-08-30 11:02:00 Melissa [facility] er Center MAGNESIUM LEVEL 2023-08-30 11:02:00 Melissa [facility] er Center PHOSPHORUS LEVEL 2023-08-30 11:02:00 Melissa [facility] er Center .CBC 2023-08-30 11:02:00 Melissa [facility] er Center POC GLUCOSE SCREEN 2023-08-30 04:31:00 Fu [facility] er Center POC GLUCOSE SCREEN 2023-08-29 23:44:00 Fu, [facility] CYSTOURETHROSCOPY WITH 2023-08-29 20:35:00 [facility] INSERTION OF INDWELLING Tayo son Cancer URETERAL STENT Center PORTABLE FLOUROSCOPY 2023-08-29 20:35:[address] [facility] (C-ARM) [facility] RETROGRADE UROGRAPHY 2023-08-29 20:35:00 Martha Idalpa [facility] POC GLUCOSE SCREEN 2023-08-29 18:10:00 Guillermo, [facility] GENERAL LABORATORY ADD ON 2023-08-29 16:32:00 Nga Dorado [facility] TEST [facility] COMPLETE BLOOD COUNT W/ 2023-08-29 12:12:00 [facility] COMPREHENSIVE METABOLIC 2023-08-29 12:12:00 Melissa [facility] PANEL [facility] MAGNESIUM LEVEL 2023-08-29 12:12:00 [facility] PHOSPHORUS LEVEL 2023-08-29 12:12:00 [facility] [place] [facility] 2023-08-29 12:12:00 [facility] DIFFERENTIAL 2023-08-29 12:12:00 [facility] GLUCOSE LEVEL 2023-08-29 12:12:00 [facility] BLOOD UREA NITROGEN 2023-08-29 12:12:00 Melissa Tino [facility] ELECTROLYTE PANEL 2023-08-29 12:12:00 [facility] SERUM CREATININE 2023-08-29 12:12:00 [facility] [place] [facility] .GLOMERULAR FILTRATION RATE 2023-08-29 12:12:00 Brink[facility] CALCIUM LEV[facility] 2023-08-29 12:12:00 Melissa [facility] ALBUMIN LEVEL 2023-08-29 12:12:00 Melissa [facility] ALKALINE PHOSPHATASE 2023-08-29 12:12:00 Tino Torres [facility] ALANINE AMINOTRANSFERASE 2023-08-29 12:12:00 [facility] ASPARTATE AMINOTRANSFERASE 2023-08-29 12:12:00 [facility] TOTAL PROTEIN 2023-08-29 12:12:00 Melissa [facility] FRACTIONATED BILIRUBIN 2023-08-29 12:12:00 Tino Torres [facility] HEMOGLOBIN A1C 2023-08-29 12:12:00 Melissa [facility] PREPARE RBC 2023-08-28 17:26:00 Toni [facility] TYPE AND SCREEN 2023-08-28 16:24:00 Toni [facility] ABORH 2023-08-28 16:24:00 [facility] ANT[facility] S[facility] 2023-08-28 16:24:00 [place], [facility] TMP INTERPRETATION ANTIBODY 2023-08-28 16:24:00 Toni [facility] SCREEN NEGATIVE [facility] CLOT EXPIRATION DATE 2023-08-28 16:24:00 Aden Muñoz [facility] COMPLETE BLOOD COUNT W/ 2023-08-28 10:30:00 Tino Torres [facility] DIFFERENTIAL [facility] COMPREHENSIVE METABOLIC 2023-08-28 10:30:00 Tino Torres [facility] PANEL [facility] MAGNESIUM LEVEL 2023-08-28 10:30:00 Melissa [facility] PHOSPHORUS LEVEL 2023-08-28 10:30:00 Melissa [facility] .CBC 2023-08-28 10:30:00 Melissa [facility] DIFFERENTIAL 2023-08-28 10:30:00 Melissa [facility] GLUCOSE LEVEL 2023-08-28 10:30:00 Melissa [facility] BLOOD UREA NITROGEN 2023-08-28 10:30:00 Tino Torres [facility] ELECTROLYTE PANEL 2023-08-28 10:30:00 Melissa [facility] SERUM CREATININE 2023-08-28 10:30:00 Melissa [facility] .GLOMERULAR FILTRATION RATE 2023-08-28 10:30:00 Melissa [facility] CALCIUM LEVEL 2023-08-28 10:30:00 Melissa [facility] ALBUMIN LEVEL 2023-08-28 10:30:00 Melissa [facility] ALKALINE PHOSPHATASE 2023-08-28 10:30:00 Tino Torres [facility] ALANINE AMINOTRANSFERASE 2023-08-28 10:30:00 Tino Torres [facility] ASPARTATE AMINOTRANSFERASE 2023-08-28 10:30:00 [facility] TOTAL PROTEIN 2023-08-28 10:30:00 Melissa [facility] FRACTIONATED BILIRUBIN 2023-08-28 10:30:00 Tino Torres [facility] QIAC SERVICES 2023-08-27 20:58:40 Jose [facility] NM BONE SCAN WHOLE BODY 2023-08-27 17:29:00 Jacob Richardson [facility] COMPLETE BLOOD COUNT W/ 2023-08-27 11:09:00 Tino Torres [facility] DIFFERENTIAL [facility] COMPREHENSIVE METABOLIC 2023-08-27 11:09:00 Tino Torres [facility] PANEL [facility] MAGNESIUM LEVEL 2023-08-27 11:09:00 Melissa [facility] PHOSPHORUS LEVEL 2023-08-27 11:09:00 Melissa [facility] .CBC 2023-08-27 11:09:00 Melissa [facility] Center DIFFERENTIAL 2023-08-27 11:09:00 Melissa [facility] GLUCOSE LEVEL 2023-08-27 11:09:00 Melissa [facility] BLOOD UREA NITROGEN 2023-08-27 11:09:00 Tino Torres [facility] ELECTROLYTE PANEL 2023-08-27 11:09:00 Melissa [facility] SERUM CREATININE 2023-08-27 11:09:00 Melissa [facility] .GLOMERULAR FILTRATION RATE 2023-08-27 11:09:00 Melissa [facility] CALCIUM LEVEL 2023-08-27 11:09:00 Melissa Tino [facility] ALBUMIN LEVEL 2023-08-27 11:09:00 Melissa [facility] ALKALINE PHOSPHATASE 2023-08-27 11:09:00 Tino Torres [facility] ALANINE AMINOTRANSFERASE 2023-08-27 11:09:00 [facility]ino [facility] ASPARTATE AMINOTRANSFERASE 2023-08-27 11:09:00 [facility]ino [facility] TOTAL PROTEIN 2023-08-27 11:09:00 Melissa [facility] FRACTIONATED BILIRUBIN 2023-08-27 11:09:00 [facility] BREAST SIMULATION 2023-08-26 15:15:00 [facility] COMPLETE BLOOD COUNT W/ 2023-08-26 10:36:00 Tino Torres [facility] DIFFERENTIAL [facility] COMPREHENSIVE METABOLIC 2023-08-26 10:36:00 Tino Torres [facility] PANEL [facility] MAGNESIUM LEVEL 2023-08-26 10:36:00 Melissa [facility] PHOSPHORUS LEVEL 2023-08-26 10:36:00 Melissa [facility] .CBC 2023-08-26 10:36:00 Melissa [facility] Center DIFFERENTIAL 2023-08-26 10:36:00 Melissa [facility] Center GLUCOSE LEVEL 2023-08-26 10:36:00 Melissa Tino [facility] BLOOD UREA NITROGEN 2023-08-26 10:36:00 [facility] 2023-08-26 10:36:00 Melissa [facility] SERUM CREATININE 2023-08-26 10:36:00 Melissa [facility] .GLOMERULAR FILTRATION RATE 2023-08-26 10:36:00 Melissa [facility] CALCIUM LEVEL 2023-08-26 10:36:00 Melissa [facility] ALBUMIN LEVEL 2023-08-26 10:36:00 Melissa [facility] Center ALKALINE PHOSPHATASE 2023-08-26 10:36:00 Tino Torres [facility] ALANINE AMINOTRANSFERASE 2023-08-26 10:36:00 Tino Torres [facility] [facility] ASPARTATE AMINOTRANSFERASE 2023-08-26 10:36:00 [facility] TOTAL PROTEIN 2023-08-26 10:36:00 Tino Torres [facility] FRACTIONATED BILIRUBIN 2023-08-26 10:36:00 Tino Torres [facility] CT ABDOMEN PELVIS W WO 2023-08-26 04:21:20 Jacob Richardson [facility] CONTRAST [facility] CT HEAD WO CONTRAST 2023-08-26 04:15:52 Gerry Ramsey [facility] URINE CULTURE 2023-08-26 02:08:00 María Jiang [facility] URINALYSIS WITH MICROSCOPIC 2023-08-26 02:08:00 Gerry [facility] FUNGITELL, SERUM 2023-08-26 01:45:00 Marita [facility] BLOOD CULTURE 2023-08-26 01:45:00 María Jiang [facility] CMV QUANT PCR, PLASMA 2023-08-26 01:45:00 Marita [facility] LACTIC ACID, VENOUS 2023-08-26 01:45:00 María Jiang [facility] XR CHEST 1 VW 2023-08-26 01:31:08 María Jiang [facility] EKG, 12-LEAD (PORTABLE) 2023-08-26 00:00:00 Abram Loza [facility] P [facility] CELL COUNT W/ DIFF BODY 2023-08-25 17:05:00 Kim Gillespie [facility] FLUID [facility] LOWER RESPIRATORY CULTURE 2023-08-25 17:05:00 [facility] W/ GRAM STAIN [facility] LEGIONELLA CULTURE 2023-08-25 17:05:00 [facility] W/ SMEAR 2023-08-25 17:05:00 Kim Gillespie [facility] CULTURE W/ SMEAR 2023-08-25 17:05:00 Kim Gillespie [facility] RESPIRATORY VIRAL PANEL, 2023-08-25 17:05:00 Kim Gillespie [facility] SEND OUT [facility] COVID-19 (SARS COV-2) PCR, 2023-08-25 17:05:00 Kim Gillespie [facility] LOWER RESPIRATORY [facility] Center ASPERGILLUS ANTIGEN, BAL 2023-08-25 17:05:00 Kim Gillespie [facility] PNEUMOCYSTIS QUANT PCR, BAL 2023-08-25 17:05:00 Kim Gillespie [facility] CMV QUANT PCR, BAL 2023-08-25 17:05:00 [facility] CELL [facility] BODY FLUID 2023-08-25 17:05:00 [facility] FLUID DIFFERENTIAL 2023-08-25 17:05:00 Kim Gillespie [facility] BODY FLUID DIFF PATH REVIEW 2023-08-25 17:05:00 Kim Gillespie [facility] CYTOLOGY NON-SUPERVISOR LUMP ROOM 2023-08-25 16:59:00 Kim Gillespie [facility] INTERPRETATION [facility] FLEXIBLE BRONCHOSCOPY WITH 2023-08-25 16:28:00 Kim Gillespie [facility] BRONCHIAL [place]VE[place]AR [place] And [facility] COMPLETE BLOOD COUNT W/ 2023-08-25 12:48:00 Tino Torres [facility] DIFFERENTIAL [facility] COMPREHENSIVE METABOLIC 2023-08-25 12:48:00 Tino Torres [facility] PANEL [facility] MAGNESIUM LEVEL 2023-08-25 12:48:00 Tino Torres [place] o f [facility] PHOSPHORUS LEVEL 2023-08-25 12:48:00 Tino Torres [facility] VANCOMYCIN LEVEL TROUGH 2023-08-25 12:48:00 [facility]CBC 2023-08-25 12:48:00 [facility] DIFFERENTIAL 2023-08-25 12:48:00 [facility] GLUCOSE LEVEL 2023-08-25 12:48:00 Melissa [facility] BLOOD UREA NITROGEN 2023-08-25 12:48:00 Tino Torres [facility] ELECTROLYTE PANEL 2023-08-25 12:48:00 [facility] SERUM CREATININE 2023-08-25 12:48:00 [facility] .GLOMERULAR FILTRATION RATE 2023-08-25 12:48:00 [facility] CALCIUM LEVEL 2023-08-25 12:48:00 [facility] ALBUMIN LEVEL 2023-08-25 12:48:00 Melissa [facility] ALKALINE PHOSPHATASE 2023-08-25 12:48:00 Tino Torres [facility] ALANINE AMINOTRANSFERASE 2023-08-25 12:48:00 [facility] ASPARTATE AMINOTRANSFERASE 2023-08-25 12:48:00 Tino Torres [facility] TOTAL PROTEIN 2023-08-25 12:48:00 [facility] FRACTIONATED BILIRUBIN 2023-08-25 12:48:00 Tino Torres [facility] STREPTOCOCCUS PNEUMONIAE 2023-08-24 23:50:00 Kym Weathers [facility] ANTIGEN, URINE [facility] LEGIONELLA ANTIGEN, URINE 2023-08-24 23:50:00 Kym Weathers [facility] RESPIRATORY MULTIPLEX PCR 2023-08-24 20:04:00 Kym Weathers [facility] PANEL, NASOPHARYNGEAL SWAB MD Sal[facility] MRSA SCREENING CULTURE 2023-08-24 20:04:00 Kym Weathers [facility] URINE CULTURE 2023-08-24 16:[facility] URINALYSIS WITH MICROSCOPIC 2023-08-24 16:24:00 Latiff, Noor-E-A [facility] IF INDICATED A [facility] URINALYSIS MICROSCOPIC EXAM 2023-08-24 16:24:00 Latiff, Noor-E-A [facility] A [facility] COMPLETE BLOOD COUNT W/ 2023-08-24 12:49:00 Tino Torres [facility] DIFFERENTIAL [facility] COMPREHENSIVE METABOLIC 2023-08-24 12:49:00 Tino Torres [facility] PANEL [facility] MAGNESIUM LEVEL 2023-08-24 12:49:00 [facility] PHOSPHORUS LEVEL 2023-08-24 12:49:00 [facility] .CBC 2023-08-24 12:49:00 Melissa [facility] Center DIFFERENTIAL 2023-08-24 12:49:00 [facility] GLUCOSE LEVEL 2023-08-24 12:49:00 [facility] BLOOD UREA NITROGEN 2023-08-24 12:49:00 Tino Torres [facility] ELECTROLYTE PANEL 2023-08-24 12:49:00 [facility] SERUM CREATININE 2023-08-24 12:49:00 [facility] .GLOMERULAR FILTRATION RATE 2023-08-24 12:49:00 [facility] CALCIUM LEVEL 2023-08-24 12:49:00 [facility] Center ALBUMIN LEVEL 2023-08-24 12:49:00 [facility] ALKALINE PHOSPHATASE 2023-08-24 12:49:00 Tino Torres [facility] ALANINE AMINOTRANSFERASE 2023-08-24 12:49:00 [facility] ASPARTATE AMINOTRANSFERASE 2023-08-24 12:49:00 Tino [facility] TOTAL PROTEIN 2023-08-24 12:49:00 Melissa [facility] o [facility] FRACTIONATED BILIRUBIN 2023-08-24 12:49:00 Tino Torres [facility] PROTHROMBIN TIME 2023-08-23 21:32:00 Allegra Henderson [facility] APTT 2023-08-23 21:32:00 Allegra Henderson [facility] CT CHEST PULMONARY EMBOLISM 2023-08-23 18:29:15 Elmer Loza [facility] W CONTRAST [facility] POC CHEM 8 NO HH 2023-08-23 17:33:00 Santiago Allegra [facility] TYPE AND SCREEN 2023-08-23 16:53:00 Abram Loza [facility] CARDIAC PANEL 2023-08-23 16:53:00 Abram Loza [facility] NT PRO BNP 2023-08-23 16:53:00 Abram Loza [facility] ABORH 2023-08-23 16:53:00 Abram Loza [facility] ANTIBODY SCREEN 2023-08-23 16:53:00 Abram Loza [facility] CLOT EXPIRATION DATE 2023-08-23 16:53:00 Abram Loza [facility] P [facility] TMP INTERPRETATION ANTIBODY 2023-08-23 16:53:00 Elmer Loza [facility] SCREEN NEGATIVE P [facility] XR CHEST 2 VW 2023-08-22 21:31:34 Reva [facility] XR HIP 2 OR 3 VW W PELVIS 2023-08-22 21:31:00 Reva Juan [facility] RIGHT [facility] COMPREHENSIVE METABOLIC 2023-08-22 17:33:00 Jose [facility] PANEL [facility] COMPLETE BLOOD COUNT W/ 2023-08-22 17:33:00 Jose [facility] DIFFERENTIAL [facility] LACTATE DEHYDROGENASE 2023-08-22 17:33:00 Jose Lizet [facility] MAGNESIUM LEVEL 2023-08-22 17:33:00 Jose [facility] PHOSPHORUS LEVEL 2023-08-22 17:33:00 [facility] 2023-08-22 17:33[facility]00 [facility]UCOSE LEVEL 2023-08-22 17:33:00 Jose [facility] BLOOD UREA NITROGEN 2023-08-22 17:33:00 Lizet Lara [facility] SERUM CREATININE 2023-08-22 17:33:00 Jose [facility] .GLOMERULAR FILTRATION RATE 2023-08-22 17:33:00 Jose [facility] CALCIUM LEVEL 2023-08-22 17:33[facility]00 [facility] 2023-08-22 17:33:00 [facility] ALKALINE PHOSPHATASE 2023-08-22 17:33:00 [facility] ALANINE AMINOTRANSFERASE 2023-08-22 17:33:00 Lizet Lara [facility] ASPARTATE AMINOTRANSFERASE 2023-08-22 17:33:00 Lizet Lara [facility] TOTAL PROTEIN 2023-08-22 17:33:00 Jose [facility] FRACTIONATED BILIRUBIN 2023-08-22 17:33:00 Lizet Lara [facility]CBC 2023-08-22 17:33:00 [facility] DIFFERENTIAL 2023-08-22 17:33:00 Jose [facility] ELECTROLYTE PANEL 2023-08-22 17:33:00 Jose [facility] ECHOCARDIOGRAM 2D COMPLETE 2023-08-14 17:16:09 Vianca Capmos [facility] CONTRAST [facility] CTR EKG, 12-LEAD 2023-08-14 00:00:00 Balbina Li [facility] GENERAL LABORATORY ADD ON 2023-08-11 21:24:00 Lizet [facility] GENERAL LABORATORY ADD ON 2023-08-11 21:23:00 Lizet L[facility] TEST [facility] COMPLETE BLOOD COUNT W/ 2023-08-11 18:31:00 Lizet Lara [facility] DIFFERENTIAL [facility] COMPREHENSIVE METABOLIC 2023-08-11 18:31:00 Jose [facility] PANEL [facility] .CBC 2023-08-11 18:31:00 [facility] DIFFERENTIAL 2023-08-11 18:31:00 Jose [facility] GLUCOSE LEVEL 2023-08-11 18:31:00 Jose [facility] BLOOD UREA NITROGEN 2023-08-11 18:31:00 [facility] ELECTROLYTE PANEL 2023-08-11 18:31:00 Jose [facility] SERUM CREATININE 2023-08-11 18:31:00 Jose [facility] .GLOMERULAR FILTRATION RATE 2023-08-11 18:31:00 Jose [facility] CALCIUM LEVEL 2023-08-11 18:31:00 Jose [facility] ALBUMIN LEVEL 2023-08-11 18:31:00 Jose [facility] ALKALINE PHOSPHATASE 2023-08-11 18:31:00 Lizet Lara [facility] ALANINE AMINOTRANSFERASE 2023-08-11 18:31:00 Jose Lizet [facility] ASPARTATE AMINOTRANSFERASE 2023-08-11 18:31:00 Lizet Lara [facility] TOTAL PROTEIN 2023-08-11 18:31:00 Jose Lizet [facility] FRACTIONATED BILIRUBIN 2023-08-11 18:31:00 Lizet Lara [facility] CARBOHYDRATE ANTIGEN 15-3 2023-08-11 18:31:00 Lizet [facility] CARCINOEMBRYONIC ANTIGEN 2023-08-11 18:31:00 Lizet Lara [facility] COMPLETE BLOOD COUNT W/ 2023-08-05 11:59:00 Tino Torres [facility] DIFFERENTIAL [facility] COMPREHENSIVE METABOLIC 2023-08-05 11:59:00 Melissa [facility] PANEL [facility] MAGNESIUM LEVEL 2023-08-05 11:59:00 [facility] PHOSPHORUS LEVEL 2023-08-05 11:59:00 [facility] .CBC 2023-08-05 11:59:00 [facility] Center DIFFERENTIAL 2023-08-05 11:59:00 Tino Torres [facility] GLUCOSE LEVEL 2023-08-05 11:59:00 [facility] BLOOD UREA NITROGEN 2023-08-05 11:59:00 Tino Torres [facility] ELECTROLYTE PANEL 2023-08-05 11:59:00 Melissa [facility] SERUM CREATININE 2023-08-05 11:59:00 Melissa [facility] .GLOMERULAR FILTRATION RATE 2023-08-05 11:59:00 [facility] CALCIUM LEVEL 2023-08-05 11:59:00 [facility] ALBUMIN LEVEL 2023-08-05 11:59:00 [facility] ALKALINE PHOSPHATASE 2023-08-05 11:59:00 Tino Torres [facility] ALANINE AMINOTRANSFERASE 2023-08-05 11:59:00 [facility] ASPARTATE AMINOTRANSFERASE 2023-08-05 11:59:00 Tino [facility] TOTAL PROTEIN 2023-08-05 11:59:00 Melissa Tino [facility] FRACTIONATED BILIRUBIN 2023-08-05 11:59:00 Tino Torres [facility] COMPLETE BLOOD COUNT W/ 2023-08-04 11:33:00 Tino Torres [facility] DIFFERENTIAL [facility] COMPREHENSIVE METABOLIC 2023-08-04 11:33:00 Tino Torres [facility] PANEL [facility] MAGNESIUM LEVEL 2023-08-04 11:33:00 Melissa [facility] PHOSPHORUS LEVEL 2023-08-04 11:33:00 Melissa [facility] .CBC 2023-08-04 11:33:00 [facility] Center DIFFERENTIAL 2023-08-04 11:33:00 [facility] GLUCOSE LEVEL 2023-08-04 11:33:00 [facility] BLOOD UREA NITROGEN 2023-08-04 11:33:00 Tino Torres [facility] ELECTROLYTE PANEL 2023-08-04 11:33:00 [facility] SERUM CREATININE 2023-08-04 11:33:00 Melissa [facility] .GLOMERULAR FILTRATION RATE 2023-08-04 11:33:00 [facility] CALCIUM LEVEL 2023-08-04 11:33:00 [facility] ALBUMIN LEVEL 2023-08-04 11:33:00 Melissa [facility] ALKALINE PHOSPHATASE 2023-08-04 11:33:00 Tino Torres [facility] ALANINE AMINOTRANSFERASE 2023-08-04 11:33:00 [facility] ASPARTATE AMINOTRANSFERASE 2023-08-04 11:33:00 [facility] TOTAL PROTEIN 2023-08-04 11:33:00 [facility] FRACTIONATED BILIRUBIN 2023-08-04 11:33:00 Tino Torres [facility] COMPLETE BLOOD COUNT W/ 2023-08-03 12:06:00 Tino Torres [facility] DIFFERENTIAL [facility] COMPREHENSIVE METABOLIC 2023-08-03 12:06:00 Tino Torres [facility] PANEL [facility] MAGNESIUM LEVEL 2023-08-03 12:06:00 [facility] PHOSPHORUS LEVEL 2023-08-03 12:06:00 [facility] .CBC 2023-08-03 12:06:00 [facility] Center DIFFERENTIAL 2023-08-03 12:06:00 [facility] GLUCOSE LEVEL 2023-08-03 12:06:00 [facility] BLOOD UREA NITROGEN 2023-08-03 12:06:00 Tino Torres [facility] ELECTROLYTE PANEL 2023-08-03 12:06:00 [facility] SERUM CREATININE 2023-08-03 12:06:00 [facility] .GLOMERULAR FILTRATION RATE 2023-08-03 12:06:00 [facility] CALCIUM LEVEL 2023-08-03 12:06:00 [facility] ALBUMIN LEVEL 2023-08-03 12:06:00 [facility] ALKALINE PHOSPHATASE 2023-08-03 12:06:00 Tino Torres [facility] ALANINE AMINOTRANSFERASE 2023-08-03 12:06:00 Tino Torres [facility] ASPARTATE AMINOTRANSFERASE 2023-08-03 12:06:00 [facility] TOTAL PROTEIN 2023-08-03 12:06:00 Melissa Tino [facility] FRACTIONATED BILIRUBIN 2023-08-03 12:06:00 Tino Torres [facility] COMPLETE BLOOD COUNT W/ 2023-08-02 13:27:00 Tino Torres [facility] DIFFERENTIAL [facility] COMPREHENSIVE METABOLIC 2023-08-02 13:27:00 Tino Torres [facility] PANEL [facility] MAGNESIUM LEVEL 2023-08-02 13:27:00 [facility] PHOSPHORUS LEVEL 2023-08-02 13:27:00 [facility] .CBC 2023-08-02 13:27:00 Melissa Tino [facility] DIFFERENTIAL 2023-08-02 13:27:00 [facility] GLUCOSE LEVEL 2023-08-02 13:27:00 Melissa Tino [facility] BLOOD UREA NITROGEN 2023-08-02 13:27:00 Tino Torres [facility] ELECTROLYTE PANEL 2023-08-02 13:27:00 [facility] SERUM CREATININE 2023-08-02 13:27:00 [facility] .GLOMERULAR FILTRATION RATE 2023-08-02 13:27:00 [facility] CALCIUM LEVEL 2023-08-02 13:27:00 [facility] ALBUMIN LEVEL 2023-08-02 13:27:00 [facility] ALKALINE PHOSPHATASE 2023-08-02 13:27:00 Tino Torres [facility] ALANINE AMINOTRANSFERASE 2023-08-02 13:27:00 [facility] ASPARTATE AMINOTRANSFERASE 2023-08-02 13:27:00 [facility] TOTAL PROTEIN 2023-08-02 13:27:00 Melissa Tino [facility] FRACTIONATED BILIRUBIN 2023-08-02 13:27:00 [facility] COMPLETE BLOOD COUNT W/ 2023-08-01 11:55:00 Tion [facility] COMPREHENSIVE METABOLIC 2023-08-01 11:55:00 Tino [facility] PANEL [facility] MAGNESIUM LEVEL 2023-08-01 11:55:00 Melissa Tino [facility] PHOSPHORUS LEVEL 2023-08-01 11:55:00 Melissa [facility] .CBC 2023-08-01 11:55:00 [facility] DIFFERENTIAL 2023-08-01 11:55:00 Melissa [facility] GLUCOSE LEVEL 2023-08-01 11:55:00 [facility] BLOOD UREA NITROGEN 2023-08-01 11:55:00 Tino Torres [facility] ELECTROLYTE PANEL 2023-08-01 11:55:00 [facility] SERUM CREATININE 2023-08-01 11:55:00 [facility] .GLOMERULAR FILTRATION RATE 2023-08-01 11:55:00 [facility] CALCIUM LEVEL 2023-08-01 11:55:00 [facility] ALBUMIN LEVEL 2023-08-01 11:55:00 [facility] ALKALINE PHOSPHATASE 2023-08-01 11:55:00 Tino Torres [facility] ALANINE AMINOTRANSFERASE 2023-08-01 11:55:00 [facility] ASPARTATE AMINOTRANSFERASE 2023-08-01 11:55:00 [facility] TOTAL PROTEIN 2023-08-01 11:55:00 Melissa Tino [facility] FRACTIONATED BILIRUBIN 2023-08-01 11:55:00 Tino Torres [facility] COMPLETE BLOOD COUNT W/ 2023-07-31 11:39:00 [facility] COMPREHENSIVE METABOLIC 2023-07-31 11:39:00 [facility] PANEL [facility] MAGNESIUM LEVEL 2023-07-31 11:39:00 Tino Torres [facility] PHOSPHORUS LEVEL 2023-07-31 11:39:00 Melissa [facility] .CBC 2023-07-31 11:39:00 Melissa Tino [facility] DIFFERENTIAL 2023-07-31 11:39:00 Melissa [facility] GLUCOSE LEVEL 2023-07-31 11:39:00 Melissa [facility] BLOOD UREA NITROGEN 2023-07-31 11:39:00 Tino Torres [facility] ELECTROLYTE PANEL 2023-07-31 11:39:00 [facility] SERUM CREATININE 2023-07-31 11:39:00 Melissa [facility] .GLOMERULAR FILTRATION RATE 2023-07-31 11:39:00 [facility] CALCIUM LEVEL 2023-07-31 11:39:00 Melissa [facility] ALBUMIN LEVEL 2023-07-31 11:39:00 Melissa [facility] ALKALINE PHOSPHATASE 2023-07-31 11:39:00 Tino Torres [facility] ALANINE AMINOTRANSFERASE 2023-07-31 11:39:00 [facility] ASPARTATE AMINOTRANSFERASE 2023-07-31 11:39:00 [facility] TOTAL PROTEIN 2023-07-31 11:39:00 Melissa [facility] FRACTIONATED BILIRUBIN 2023-07-31 11:39:00 Tino Torres [facility] MRI CERVICAL THORACIC 2023-07-30 16:00:00 Tino Torres [facility] LUMBAR SPINE W WO CONTRAST MD Salcedo [facility] COMPLETE BLOOD COUNT W/ 2023-07-30 12:24:00 Tino Torres [facility] DIFFERENTIAL [facility] COMPREHENSIVE METABOLIC 2023-07-30 12:24:00 Tino Torres [facility] PANEL [facility] MAGNESIUM LEVEL 2023-07-30 12:24:00 Melissa [facility] PHOSPHORUS LEVEL 2023-07-30 12:24:00 [facility] .CBC 2023-07-30 12:24:00 [facility] Center DIFFERENTIAL 2023-07-30 12:24:00 Melissa [facility] Center GLUCOSE LEVEL 2023-07-30 12:24:00 [facility] BLOOD UREA NITROGEN 2023-07-30 12:24:00 Tino Torres [facility] ELECTROLYTE PANEL 2023-07-30 12:24:00 [facility] SERUM CREATININE 2023-07-30 12:24:00 [facility] .GLOMERULAR FILTRATION RATE 2023-07-30 12:24:00 [facility] CALCIUM LEVEL 2023-07-30 12:24:00 [facility] ALBUMIN LEVEL 2023-07-30 12:24:00 [facility] ALKALINE PHOSPHATASE 2023-07-30 12:24:00 Tino Torres [facility] ALANINE AMINOTRANSFERASE 2023-07-30 12:24:00 Tino [facility] ASPARTATE AMINOTRANSFERASE 2023-07-30 12:24:00 Tino [facility] TOTAL PROTEIN 2023-07-30 12:24:00 [facility] FRACTIONATED BILIRUBIN 2023-07-30 12:24:00 [facility] COMPLETE BLOOD COUNT W/ 2023-07-29 13:29:00 Tino oTrres [facility] DIFFERENTIAL [facility] COMPREHENSIVE METABOLIC 2023-07-29 13:29:00 Tino Torres [facility] PANEL [facility] MAGNESIUM LEVEL 2023-07-29 13:29:00 [facility] Center PHOSPHORUS LEVEL 2023-07-29 13:29:00 [facility] .CBC 2023-07-29 13:29:00 [facility] Center DIFFERENTIAL 2023-07-29 13:29:00 Melissa [facility] Center GLUCOSE LEVEL 2023-07-29 13:29:00 Melissa [facility] BLOOD UREA NITROGEN 2023-07-29 13:29:00 Tino Torres [facility] ELECTROLYTE PANEL 2023-07-29 13:29:00 Melissa [facility] SERUM CREATININE 2023-07-29 13:29:00 Melissa [facility] Center .GLOMERULAR FILTRATION RATE 2023-07-29 13:29:00 [facility] [facility] CALCIUM LEVEL 2023-07-29 13:29:00 [facility] ALBUMIN LEVEL 2023-07-29 13:29:00 Melissa Tino [facility] ALKALINE PHOSPHATASE 2023-07-29 13:29:00 Tino Torres [facility] ALANINE AMINOTRANSFERASE 2023-07-29 13:29:00 [facility] ASPARTATE AMINOTRANSFERASE 2023-07-29 13:29:00 [facility] TOTAL PROTEIN 2023-07-29 13:29:00 [facility] FRACTIONATED BILIRUBIN 2023-07-29 13:29:00 Brink, Tino [facility] 3D DENTAL IMAGING (ICAT) 2023-07-28 15:13:38 Gibran Belle [facility] COMPLETE BLOOD COUNT W/ 2023-07-28 13:03:00 Tino Torres [facility] DIFFERENTIAL [facility] COMPREHENSIVE METABOLIC 2023-07-28 13:03:00 Tino Torres [facility] PANEL [facility] MAGNESIUM LEVEL 2023-07-28 13:03:00 [facility] PHOSPHORUS LEVEL 2023-07-28 13:03:00 [facility] .CBC 2023-07-28 13:03:00 [facility] DIFFERENTIAL 2023-07-28 13:03:00 [facility] GLUCOSE LEVEL 2023-07-28 13:03:00 [facility] BLOOD UREA NITROGEN 2023-07-28 13:03:00 Tino Torres [facility] ELECTROLYTE PANEL 2023-07-28 13:03:00 [facility] SERUM CREATININE 2023-07-28 13:03:00 [facility] .GLOMERULAR FILTRATION RATE 2023-07-28 13:03:00 [facility] CALCIUM LEVEL 2023-07-28 13:03:00 [facility] ALBUMIN LEVEL 2023-07-28 13:03:00 [facility] ALKALINE PHOSPHATASE 2023-07-28 13:03:00 Tino Torres [facility] ALANINE AMINOTRANSFERASE 2023-07-28 13:03:00 [facility] ASPARTATE AMINOTRANSFERASE 2023-07-28 13:03:00 [facility] TOTAL PROTEIN 2023-07-28 13:03:00 [facility] FRACTIONATED BILIRUBIN 2023-07-28 13:03:00 Tino Torres [facility] COMPLETE BLOOD COUNT W/ 2023-07-27 09:50:00 Tino Torres [facility] DIFFERENTIAL [facility] COMPREHENSIVE METABOLIC 2023-07-27 09:50:00 Tino Torres [facility] PANEL [facility] MAGNESIUM LEVEL 2023-07-27 09:50:00 [facility] PHOSPHORUS LEVEL 2023-07-27 09:50:00 [facility] .CBC 2023-07-27 09:50:00 Melissa Tino [facility] DIFFERENTIAL 2023-07-27 09:50:00 [facility] GLUCOSE LEVEL 2023-07-27 09:50:00 Melissa Tino [facility] BLOOD UREA NITROGEN 2023-07-27 09:50:00 Tino Torres [facility] ELECTROLYTE PANEL 2023-07-27 09:50:00 [facility] SERUM CREATININE 2023-07-27 09:50:00 [facility] .GLOMERULAR FILTRATION RATE 2023-07-27 09:50:00 [facility] CALCIUM LEVEL 2023-07-27 09:50:00 [facility] ALBUMIN LEVEL 2023-07-27 09:50:00 [facility] ALKALINE PHOSPHATASE 2023-07-27 09:50:00 Tino Torres [facility] ALANINE AMINOTRANSFERASE 2023-07-27 09:50:00 Tino Torres [facility] ASPARTATE AMINOTRANSFERASE 2023-07-27 09:50:00 [facility] TOTAL PROTEIN 2023-07-27 09:50:00 [facility] FRACTIONATED BILIRUBIN 2023-07-27 09:50:00 Tino Torres [facility] URINALYSIS WITH MICROSCOPIC 2023-07-26 16:44:[address] [facility] [address] CERVICAL THORACIC LUMBAR 2023-07-26 13:52:11 [facility] COMPLETE BLOOD COUNT W/ 2023-07-26 12:24:00 Tino Torres [facility] DIFFERENTIAL [facility] COMPREHENSIVE METABOLIC 2023-07-26 12:24:00 Tino Torres [facility] PANEL [facility] MAGNESIUM LEVEL 2023-07-26 12:24:00 [facility] PHOSPHORUS LEVEL 2023-07-26 12:24:00 [facility] TYPE AND SCREEN 2023-07-26 12:24:00 [facility] PROTHROMBIN TIME 2023-07-26 12:24:00 [facility] APTT 2023-07-26 12:24:00 [facility] ABORH 2023-07-26 12:24:00 [facility] ANTIBODY SCREEN 2023-07-26 12:24:00 [facility] .CBC 2023-07-26 12:24:00 [facility] DIFFERENTIAL 2023-07-26 12:24:00 [facility] GLUCOSE LEVEL 2023-07-26 12:24:00 [facility] BLOOD UREA NITROGEN 2023-07-26 12:24:00 Tino Torres [facility] ELECTROLYTE PANEL 2023-07-26 12:24:00 [facility] SERUM CREATININE 2023-07-26 12:24:00 [facility] .GLOMERULAR FILTRATION RATE 2023-07-26 12:24:00 [facility] CALCIUM LEVEL 2023-07-26 12:24:00 [facility] ALBUMIN LEVEL 2023-07-26 12:24:00 [facility] ALKALINE PHOSPHATASE 2023-07-26 12:24:00 Melissa Tino [facility] ALANINE AMINOTRANSFERASE 2023-07-26 12:24:00 Tino Torres [facility] ASPARTATE AMINOTRANSFERASE 2023-07-26 12:24:00 Tino Torres [facility] TOTAL PROTEIN 2023-07-26 12:24:00 [facility] FRACTIONATED BILIRUBIN 2023-07-26 12:24:00 Tino Torres [facility] CLOT EXPIRATION DATE 2023-07-26 12:24:00 Tino Torres [facility] TMP INTERPRETATION ANTIBODY 2023-07-26 12:24:00 Melissa [facility] SCREEN NEGATIVE [facility] XR FEMUR 2 VW RIGHT 2023-07-26 03:02:48 Dayday Concepcion [facility] CT HIP RIGHT WO CONTRAST 2023-07-26 00:39:54 Victorino [facility] COMPLETE BLOOD COUNT W/ 2023-07-26 00:06:00 Dayday Concepcion [facility] DIFFERENTIAL [facility] COMPREHENSIVE METABOLIC 2023-07-26 00:06:00 Dayday Concepcion [facility] PANEL [facility] MAGNESIUM LEVEL 2023-07-26 00:06:00 Dayday Concepcion [facility] PHOSPHORUS LEVEL 2023-07-26 00:06:00 Dayday Concepcion [facility] .CBC 2023-07-26 00:06:00 Dayday Concepcion [facility] DIFFERENTIAL 2023-07-26 00:06:00 Dayday Concepcion [facility] GLUCOSE LEVEL 2023-07-26 00:06:00 Dayday Concepcion [facility] BLOOD UREA NITROGEN 2023-07-26 00:06:00 Dayday Concepcion [facility] ELECTROLYTE PANEL 2023-07-26 00:06:00 Dayday Concepcion [facility] SERUM CREATININE 2023-07-26 00:06:00 Dayday Concepcion [facility] .GLOMERULAR FILTRATION RATE 2023-07-26 00:06:00 Kris Concepcion [facility] CALCIUM LEVEL 2023-07-26 00:06:00 Dayday Concepcion [facility] ALBUMIN LEVEL 2023-07-26 00:06:00 Dayday Concepcion [facility] ALKALINE PHOSPHATASE 2023-07-26 00:06:00 Dayday Concepcion [facility] ALANINE AMINOTRANSFERASE 2023-07-26 00:06:00 Dayday Concepcion [facility] ASPARTATE AMINOTRANSFERASE 2023-07-26 00:06:00 Dayday Concepcion [facility] TOTAL PROTEIN 2023-07-26 00:06:00 Dayday Concepcion [facility] FRACTIONATED BILIRUBIN 2023-07-26 00:06:00 Dayday Concepcion [facility] MRI PELVIS W WO CONTRAST - 2023-07-24 20:50:44 Lizet Lara [facility] MUSCULOSKELETAL [facility] COMPREHENSIVE METABOLIC 2023-07-24 14:59:00 Josh Dewey [facility] PANEL [facility] COMPLETE BLOOD COUNT W/ 2023-07-24 14:59:00 Josh Dewey [facility] DIFFERENTIAL [facility] LACTATE DEHYDROGENASE 2023-07-24 14:59:00 Josh Dewey [facility] MAGNESIUM LEVEL 2023-07-24 14:59:00 Josh Dewey [facility] PHOSPHORUS LEVEL 2023-07-24 14:59:00 Maco [facility] URIC ACID 2023-07-24 14:59:00 Josh Dewey [facility] GLUCOSE LEVEL 2023-07-24 14:59:00 Josh Dewey [facility] BLOOD UREA NITROGEN 2023-07-24 14:59:00 Josh Dewey [facility] ELECTROLYTE PANEL 2023-07-24 14:59:00 Josh Dewey [facility] SERUM CREATININE 2023-07-24 14:59:00 Maco [facility] .GLOMERULAR FILTRATION RATE 2023-07-24 14:59:00 Josh Dewey [facility] CALCIUM LEVEL 2023-07-24 14:59:00 Josh Dewey [facility] ALBUMIN LEVEL 2023-07-24 14:59:00 Josh Dewey [facility] ALKALINE PHOSPHATASE 2023-07-24 14:59:00 Josh Dewey [facility] ALANINE AMINOTRANSFERASE 2023-07-24 14:59:00 [facility] ASPARTATE AMINOTRANSFERASE 2023-07-24 14:59:00 Josh Dewey [facility] TOTAL PROTEIN 2023-07-24 14:59:00 Yap, [facility] FRACTIONATED BILIRUBIN 2023-07-24 14:59:00 Maco Josh [facility] .CBC 2023-07-24 14:59:00 Maco [facility] DIFFERENTIAL 2023-07-24 14:59:00 Maco [facility] QIAC SERVICES 2023-07-18 14:39:54 Jennifer West [facility] CTRC EKG, 12-LEAD 2023-07-17 00:00:00 Maco [facility] COMPLETE BLOOD COUNT W/ 2023-07-16 16:11:00 [facility] COMPREHENSIVE METABOLIC 2023-07-16 16:11:00 [facility] PANEL [facility] MAGNESIUM LEVEL 2023-07-16 16:11:00 Jennifer West [facility] PHOSPHORUS LEVEL 2023-07-16 16:11:00 Jennifer West [facility] URINALYSIS WITH MICROSCOPIC 2023-07-16 16:11:00 Jennifer West [facility] IF INDICATED [facility] CARBOHYDRATE ANTIGEN 15-3 2023-07-16 16:11:00 Jennifer West [facility] CARCINOEMBRYONIC ANTIGEN 2023-07-16 16:11:00 Jennifer West [facility] .CBC 2023-07-16 16:11:00 Jennifer West [facility] DIFFERENTIAL 2023-07-16 16:11:00 Jennifer West [facility] GLUCOSE LEVEL 2023-07-16 16:11:00 Jennifer West [facility] BLOOD UREA NITROGEN 2023-07-16 16:11:00 Jennifer West [facility] SERUM CREATININE 2023-07-16 16:11:00 Jennifer West [facility] .GLOMERULAR FILTRATION RATE 2023-07-16 16:11:00 Jennifer West [facility] CALCIUM LEVEL 2023-07-16 16:11:00 Jennifer West [facility] ALBUMIN LEVEL 2023-07-16 16:11:00 Jennifer West [facility] ALKALINE PHOSPHATASE 2023-07-16 16:11:00 Jennifer West [facility] ALANINE AMINOTRANSFERASE 2023-07-16 16:11:00 Jennifer West [facility] ASPARTATE AMINOTRANSFERASE 2023-07-16 16:11:00 Jennifer West [facility] TOTAL PROTEIN 2023-07-16 16:11:00 Jennifer West [facility] FRACTIONATED BILIRUBIN 2023-07-16 16:11:00 Jennifer West [facility] ELECTROLYTE PANEL 2023-07-16 16:11:00 Jennifer West [facility] URINALYSIS MICROSCOPIC EXAM 2023-07-16 16:11:00 Jennifer West [facility] URINALYSIS MICROSCOPIC EXAM 2023-07-16 16:11:00 Jennifer West [facility] APTT 2023-07-16 16:03:00 Jennifer West [facility] PROTHROMBIN TIME 2023-07-16 16:03:00 Jennifer West [facility] IR CT GUIDED BIOPSY BONE 2023-07-15 20:45:28 Jennifer West [facility] DEEP PELVIC 60 [facility] PATHOLOGY BIOPSY 2023-07-15 20:08:00 Jennifer West [facility] INTERPRETATION [facility] NM BONE SCAN WHOLE BODY 2023-07-11 19:47:00 Jennifer [facility] CT CHEST ABDOMEN PELVIS W 2023-07-11 19:14:00 Jennifer West [facility] CONTRAST [facility] EKG, 12-LEAD (SCHEDULED) 2023-07-11 00:00:00 [facility] OCT, OPTIC NERVE - OU - 2023-07-08 20:27:37 Laura Sexton [facility] BOTH EYES [facility] OCT, RETINA - OU - BOTH 2023-07-08 20:27:36 Darshan [facility] [place] EYES [facility] FUNDUS PHOTOS - OU - BOTH 2023-07-08 20:27:34 Laura Sexton [facility] [place] EYES [facility] XR HIP 2 OR 3 VW W PELVIS 2023-07-08 19:20:58 Radha Lombardo [facility] [place] RIGHT [facility] SPIROMETRY W/O DILATORS, 2023-07-08 16:03:18 Cookie Sterling [facility] DLCO AND BODY [facility] PLETHSMOGRAPHIC LUNG Center VOLUMES APTT 2023-07-08 14:00:00 Jennifer West [facility] BHCG 2023-07-08 14:00:00 Jennifer West [facility] COMPLETE BLOOD COUNT W/ 2023-07-08 14:00:00 Jennifer West [facility] [place] DIFFERENTIAL [facility] COMPREHENSIVE METABOLIC 2023-07-08 14:00:00 Jennifer West [facility] [place] PANEL [facility] MAGNESIUM LEVEL 2023-07-08 14:00:00 Jennifer West [facility] PHOSPHORUS LEVEL 2023-07-08 14:00:00 Jennifer West [facility] PROTHROMBIN TIME 2023-07-08 14:00:00 Wood, [facility] URINALYSIS WITH MICROSCOPIC 2023-07-08 14:00:00 Jennifer West [facility] IF INDICATED [facility] .CBC 2023-07-08 14:00:00 [facility] 2023-07-08 14:00:00 Jennifer West [facility] GLUCOSE LEVEL 2023-07-08 14:00:00 Jennifer West [facility] BLOOD UREA NITROGEN 2023-07-08 14:00:00 Jennifer West [facility] ELECTROLYTE PANEL 2023-07-08 14:00:00 Jennifer West [facility] SERUM CREATININE 2023-07-08 14:00:00 [facility] .GLOMERULAR FILTRATION RATE 2023-07-08 14:00:00 Jennifer West [facility] CALCIUM LEVEL 2023-07-08 14:00:00 Jennifer West [facility] ALBUMIN LEVEL 2023-07-08 14:00:00 Jennifer West [facility] ALKALINE PHOSPHATASE 2023-07-08 14:00:00 Jennifer West [facility] ALANINE AMINOTRANSFERASE 2023-07-08 14:00:00 Jennifer West [facility] ASPARTATE AMINOTRANSFERASE 2023-07-08 14:00:00 Jennifer West [facility] TOTAL PROTEIN 2023-07-08 14:00:00 Jennifer West [facility] FRACTIONATED BILIRUBIN 2023-07-08 14:00:00 Jennifer West [facility] URINALYSIS MICROSCOPIC EXAM 2023-07-08 14:00:00 Jennifer West [facility] URINALYSIS MICROSCOPIC EXAM 2023-07-08 14:00:00 Jennifer West [facility] XR CHEST 2 VW 2023-07-08 13:34:41 Cookie Sterling [facility] CT CHEST PULMONARY EMBOLISM 2023-06-27 18:12:13 Essie Cardona [facility] W CONTRAST [facility] D DIMER 2023-06-27 15:48:00 Sarath Joshi [facility] US ARM VENOUS DOPPLER 2023-06-27 13:08:03 Celina Escalera [facility] BILATERAL [facility] BASIC METABOLIC PANEL, 2023-06-27 07:06:00 Jw Boone [facility] CALCIUM TOTAL [facility] MAGNESIUM LEVEL 2023-06-27 07:06:00 Jw, [facility] PHOSPHORUS LEVEL 2023-06-27 07:06:00 Jw, [facility] COMPLETE BLOOD COUNT W/ 2023-06-27 07:06:00 Jw Celina [facility] DIFFERENTIAL [facility] GLUCOSE LEVEL 2023-06-27 07:06:[address] [facility] BLOOD UREA NITROGEN 2023-06-27 07:06:00 Celina Escalera [facility] ELECTROLYTE PANEL 2023-06-27 07:06:00 Jw, [facility] SERUM CREATININE 2023-06-27 07:06:00 Jw, [facility] .GLOMERULAR FILTRATION RATE 2023-06-27 07:06:00 Jw, [facility] CALCIUM LEVEL 2023-06-27 07:06:00 Jw, [facility] .CBC 2023-06-27 07:06:00 Jw, [facility] DIFFERENTIAL 2023-06-27 07:06:00 Jw, Celina [facility] XR CHEST 1 VW 2023-06-26 23:28:01 Trinidad Springer [facility] COMPLETE BLOOD COUNT W/ 2023-06-26 20:54:00 Trinidad Springer [facility] DIFFERENTIAL [facility] COMPREHENSIVE METABOLIC 2023-06-26 20:54:00 Trinidad Springer [facility] PANEL [facility] MAGNESIUM LEVEL 2023-06-26 20:54:00 Trinidad Springer [facility] PHOSPHORUS LEVEL 2023-06-26 20:54:00 Trinidad Springer [facility] PROTHROMBIN TIME 2023-06-26 20:54:00 Trinidad Springer [facility] APTT 2023-06-26 20:54:00 Trinidad Springer [facility] NT PRO BNP 2023-06-26 20:54:00 Trinidad Springer [facility] TROPONIN T 2023-06-26 20:54:00 Trinidad Springer [facility] .CBC 2023-06-26 20:54:00 Trinidad Springer [facility] DIFFERENTIAL 2023-06-26 20:54:00 Trinidad Springer [facility] GLUCOSE LEVEL 2023-06-26 20:54:00 Trinidad Springer [facility] BLOOD UREA NITROGEN 2023-06-26 20:54:00 Trinidad Springer [facility] ELECTROLYTE PANEL 2023-06-26 20:54:00 Trinidad Springer [facility] SERUM CREATININE 2023-06-26 20:54:00 Trinidad Springer [facility] .GLOMERULAR FILTRATION RATE 2023-06-26 20:54:00 Trinidad Springer [facility] CALCIUM LEVEL 2023-06-26 20:54:00 Trinidad Springer [facility] ALBUMIN LEVEL 2023-06-26 20:54:00 Trinidad Springer [facility] ALKALINE PHOSPHATASE 2023-06-26 20:54:00 Trinidad Springer [facility] [place] [place] ALANINE AMINOTRANSFERASE 2023-06-26 20:54:00 Trinidad Springer [facility] ASPARTATE AMINOTRANSFERASE 2023-06-26 20:54:00 Trinidad Springer [facility] TOTAL PROTEIN 2023-06-26 20:54:00 Trinidad Springer [place] [facility] FRACTIONATED BILIRUBIN 2023-06-26 20:54:00 Trinidad Springer [facility], 12-LEAD (PORTABLE) 2023-06-26 00:00:00 Trinidad Springer [facility] RESPIRATORY MULTIPLEX PCR 2023-06-25 17:06:00 Jennifer West [facility] PANEL, NASOPHARYNGEAL SWAB MD [facility] RESPIRATORY MULTIPLEX PCR 2023-06-25 17:06:00 Jennifer West [facility] PANEL, NASOPHARYNGEAL SWAB MD [facility] XR CHEST 2 VW 2023-06-25 14:23:35 Radha Lombardo [facility] COMPLETE BLOOD COUNT W/ 2023-06-25 13:44:00 [facility] COMPREHENSIVE METABOLIC 2023-06-25 13:44:00 Jennifer West [facility] PANEL [facility] MAGNESIUM LEVEL 2023-06-25 13:44:00 Jennifer West [facility] PHOSPHORUS LEVEL 2023-06-25 13:44:00 Jennifer West [facility] .CBC 2023-06-25 13:44:00 Jennifer West [facility] DIFFERENTIAL 2023-06-25 13:44:00 Wood, [facility] GLUCOSE LEVEL 2023-06-25 13:44:00 Jennifer West [facility] BLOOD UREA NITROGEN 2023-06-25 13:44:00 Jennifer West [facility] [place] [place] ELECTROLYTE PANEL 2023-06-25 13:44:00 Jennifer West [facility] ty [facility] SERUM CREATININE 2023-06-25 13:44:00 Jennifer West [facility] .GLOMERULAR FILTRATION RATE 2023-06-25 13:44:00 Jennifer West [facility] CALCIUM LEVEL 2023-06-25 13:44:00 Jennifer West [facility] ALBUMIN LEVEL 2023-06-25 13:44:00 Jennifer West [facility] ALKALINE PHOSPHATASE 2023-06-25 13:44:00 Jennifer West [facility] ALANINE AMINOTRANSFERASE 2023-06-25 13:44:00 Jennifer West [facility] ASPARTATE AMINOTRANSFERASE 2023-06-25 13:44:00 Jennifer West [facility] TOTAL PROTEIN 2023-06-25 13:44:00 Jennifer West [facility] FRACTIONATED BILIRUBIN 2023-06-25 13:44:00 Jennifer West [facility] PULMONARY ULTRASOUND 2023-06-12 13:46:43 Radha Lombardo [facility] [place] [place] XR CHEST 2 VW 2023-06-11 18:45:00 Radha Lombardo [place] f [facility] GENERAL LABORATORY ADD ON 2023-06-11 18:44:00 [facility]dis [facility] TEST [facility] COMPLETE BLOOD COUNT W/ 2023-06-11 14:51:40 Edis Luciano [facility] DIFFERENTIAL [facility] COMPREHENSIVE METABOLIC 2023-06-11 14:51:40 Edis Luciano [facility] PANEL [facility] MAGNESIUM LEVEL 2023-06-11 14:51:40 Edis Luciano [facility] PHOSPHORUS LEVEL 2023-06-11 14:51:40 Edis Luciano [facility] GLUCOSE, FASTING 2023-06-11 14:51:40 Edis Luciano [facility] .CBC 2023-06-11 14:51:40 Edis Luciano [facility] DIFFERENTIAL 2023-06-11 14:51:40 Edis Luciano [facility] BLOOD UREA NITROGEN 2023-06-11 14:51:40 Edis Luciano [facility] ELECTROLYTE PANEL 2023-06-11 14:51:40 Edis Luciano [facility] SERUM CREATININE 2023-06-11 14:51:40 Edis Luciano [facility] .GLOMERULAR FILTRATION RATE 2023-06-11 14:51:40 Edis Luciano [facility] CALCIUM LEVEL 2023-06-11 14:51:40 Edis Luciano [facility] ALBUMIN LEVEL 2023-06-11 14:51:40 Edis Luciano [facility] ALKALINE PHOSPHATASE 2023-06-11 14:51:40 Edis Luciano [facility] [facility] ALANINE AMINOTRANSFERASE 2023-06-11 14:51:40 Edis Luciano [facility] ASPARTATE AMINOTRANSFERASE 2023-06-11 14:51:40 Edis Luciano [facility] TOTAL PROTEIN 2023-06-11 14:51:40 Edis Luciano [facility] FRACTIONATED BILIRUBIN 2023-06-11 14:51:40 Edis Luciano [facility] CARBOHYDRATE ANTIGEN 15-3 2023-06-11 14:51:40 Edis Luciano Un iversity [facility] XR CHEST 1 VW 2023-06-07 14:52:41 Sarahi Jade Universi ty [facility] COMPLETE BLOOD COUNT W/ 2023-06-07 12:00:00 Nancy U niversity [facility] DIFFERENTIAL [facility] BASIC METABOLIC PANEL, 2023-06-07 12:00:00 Nancy, Un iversity [facility] CALCIUM TOTAL [facility] MAGNESIUM LEVEL 2023-06-07 12:00:00 [facility], [facility] PHOSPHORUS LEVEL 2023-06-07 12:00:00 Nancy, [facility] .CBC 2023-06-07 12:00:00 Nancy, [facility] DIFFERENTIAL 2023-06-07 12:00:00 Nancy, [facility] y [facility] GLUCOSE LEVEL 2023-06-07 12:00:00 Nancy, [facility] BLOOD UREA NITROGEN 2023-06-07 12:00:00 [facility] E[facility] PANEL 2023-06-07 12:00:00 Nancy, Tyron ity [facility] SERUM CREATININE 2023-06-07 12:00:00 Nancy, [facility] .GLOMERULAR FILTRATION RATE 2023-06-07 12:00:00 Frederick torre, [facility] CALCIUM LEVEL 2023-06-07 12:00:00 Nancy [facility] XR CHEST 1 VW 2023-06-06 12:50:21 [place] Kota [facility] COMPLETE BLOOD COUNT W/ 2023-06-06 11:59:00 [facility] BASIC METABOLIC PANEL, 2023-06-06 11:59:00 Nancy [facility] CALCIUM TOTAL [facility] MAGNESIUM LEVEL 2023-06-06 11:59:00 Nancy, [facility] PHOSPHORUS LEVEL 2023-06-06 11:59:00 Nancy, [facility] .CBC 2023-06-06 11:59:00 Nancy, [facility] y [facility] DIFFERENTIAL 2023-06-06 11:59:00 Nancy, [facility] GLUCOSE LEVEL 2023-06-06 11:59:00 Nancy, [facility] BLOOD UREA NITROGEN 2023-06-06 11:59:00 Nancy, [facility] ELECTROLYTE PANEL 2023-06-06 11:59:00 Nancy, [facility] ity [facility] SERUM CREATININE 2023-06-06 11:59:00 Nancy, Universi ty [facility] .GLOMERULAR FILTRATION RATE 2023-06-06 11:59:00 Frederick torre [facility] CALCIUM LEVEL 2023-06-06 11:59:00 Nancy, [facility] XR CHEST 1 VW 2023-06-05 17:33:34 Jalil Alejandro [facility] SURGICAL THORACOSCOPY WITH 2023-06-05 15:38:00 Jalil Alejandro [facility] PLEURODESIS (MECHANICAL OR MD Susi argueta Cancer CHEMICAL) Center INSERTION OF INDWELLING 2023-06-05 15:38:00 Jalil Alejandro [facility] TUNNELED PLEURAL CATHETER And faisal Cancer WITH CUFF-RIGHT Center PULMONARY ULTRASOUND 2023-06-05 15:08:10 Jalil Ale[facility]andro [facility] [place] [place] PELVIS COMPLETE 2023-06-03 16:46:00 Marcello Schultz [facility] US TRANSVAGINAL 2023-06-03 16:46:00 Antoine [facility] PULMONARY ULTRASOUND 2023-06-02 14:40:36 Radha Lombardo [facility] XR CHEST 2 VW 2023-06-02 13:05:41 Jalil Alejandro [facility] NM BONE SCAN WHOLE BODY 2023-05-27 14:25:00 AbouharbMarcello Uni versity of [facility] CT CHEST ABDOMEN PELVIS W 2023-05-27 13:29:29 AbouhMarcello lu [facility] [place] CONTRAST [facility] COMPLETE BLOOD COUNT W/ 2023-05-27 11:57:09 Marcello Schultz Uni [facility] [place] DIFFERENTIAL [facility] COMPREHENSIVE METABOLIC 2023-05-27 11:57:09 Marcello Schultz Uni versity [facility] [place] PANEL [facility] CARBOHYDRATE ANTIGEN 15-3 2023-05-27 11:57:09 Marcello Schulzt [facility] PHOSPHORUS LEVEL 2023-05-27 11:57:09 Antoine [facility] MAGNESIUM LEVEL 2023-05-27 11:57:09 Antoine [facility] .CBC 2023-05-27 11:57:09 Antoine [facility] DIFFERENTIAL 2023-05-27 11:57:09 Antoine [facility] GLUCOSE LEVEL 2023-05-27 11:57:09 [facility] BLOOD UREA NITROGEN 2023-05-27 11:57:09 [facility] 2023-05-27 11:57:[address] [facility] SERUM CREATININE 2023-05-27 11:57:09 [facility] .GLOMERULAR FILTRATION RATE 2023-05-27 11:57:09 [facility] CALCIUM LEVEL 2023-05-27 11:57:09 [facility] ALBUMIN LEVEL 2023-05-27 11:57:09 [facility] ALKALINE PHOSPHATASE 2023-05-27 11:57:09 [facility] ALANINE AMINOTRANSFERASE 2023-05-27 11:57:09 [facility] ASPARTATE AMINOTRANSFERASE 2023-05-27 11:57:09 [facility] TOTAL PROTEIN 2023-05-27 11:57:09 [facility] FRACTIONATED BILIRUBIN 2023-05-27 11:57:09 [facility] HP CYTOGENETICS BLOOD 2023-05-22 00:23:00 Nano Olvera [facility] COLLECTION [facility] HP CG HER2 FISH 2023-05-22 00:23:00 Nano Olvera [facility] INTERPRETATION AND REPORT NM [facility] XR CHEST 1 VW 2023-05-21 19:18:00 Jalil Alejandro [facility] CYTOLOGY NON-SUPERVISOR LUMP ROOM 2023-05-21 19:05:00 Jalil Alejandro [facility] INTERPRETATION [facility] PROTEIN BODY FLUID 2023-05-21 18:48:00 Jalil Alejandro [facility] TRIGLYCERIDE BODY FLUID 2023-05-21 18:48:00 Jalil Alejandro [facility] CHOLESTEROL BODY FLUID 2023-05-21 18:48:00 Jalil Alejandro [facility] AMYLASE LEVEL BODY FLUID 2023-05-21 18:48:00 Jalil Alejandro [facility] LACTATE DEHYDROGENASE BODY 2023-05-21 18:48:00 Jalil Alejandro [facility] FLUID [facility] CELL COUNT W/ DIFF BODY 2023-05-21 18:48:00 Jalil Alejandro [facility] [place] FLUID [facility] BODY FLUID CULTURE W/ GRAM 2023-05-21 18:48:00 Jalil Alejandro [facility] STAIN [facility] CELL COUNT BODY FLUID 2023-05-21 18:48:00 Jalil [facility]roe [facility] BODY FLUID DIFFERENTIAL 2023-05-21 18:48:00 Jalil Alejandro [facility] BODY FLUID DIFF PATH REVIEW 2023-05-21 18:48:00 Jalil Alejandro [facility] GLUCOSE BODY FLUID 2023-05-21 18:48:00 Jalil Alejandro [facility] BODY FLUID CULTURE W/ GRAM 2023-05-21 18:48:00 Jalil Alejandro [facility] STAIN [facility] THORACENTESIS,NEEDLE OR 2023-05-21 18:25:00 Jalil Alejandro Uni versayleen of [place] CATHETER,ASPIRATION OF THE MD Susi mariselalinda Cancer RIGHT PLEURAL SPACE; WITH Center IMAGING GUIDANCE PULMONARY ULTRASOUND 2023-05-21 18:10:13 Jalil Alejandro sity [facility] EKG, 12-LEAD (PORTABLE) 2023-05-21 00:00:00 Jalil Alejandro Uni versity of [facility] URINE CULTURE 2023-05-20 16:21:10 Adibi, [facility] URINALYSIS WITH MICROSCOPIC 2023-05-20 16:21:10 Martha [facility] URINE CULTURE 2023-05-20 16:21:10 Martha [facility] o [facility] US ARM VENOUS DOPPLER RIGHT 2023-04-30 19:39:00 Antoine [facility] XR CHEST 2 VW 2023-04-30 18:51:32 Antoine [facility] URINE CULTURE 2023-04-30 18:30:30 Antoine [facility] URINALYSIS WITH MICROSCOPIC 2023-04-30 18:30:30 Antoine [facility] IF INDICATED [facility] URINALYSIS MICROSCOPIC EXAM 2023-04-30 18:30:30 Antoine [facility] URINE CULTURE 2023-04-30 18:30:30 Antoine [facility] URINALYSIS MICROSCOPIC EXAM 2023-04-30 18:30:30 Antoine [facility] COMPLETE BLOOD COUNT W/ 2023-04-30 14:51:42 Marcello Schultz Uni versity [facility] [place] DIFFERENTIAL [facility] COMPREHENSIVE METABOLIC 2023-04-30 14:51:42 Marcello Schultz Uni versity of [place] PANEL [facility] CARBOHYDRATE ANTIGEN 15-3 2023-04-30 14:51:42 Marcello Schultz [facility] MAGNESIUM LEVEL 2023-04-30 14:51:42 Antoine [facility] PHOSPHORUS LEVEL 2023-04-30 14:51:42 Antoine [facility] GLUCOSE, FASTING 2023-04-30 14:51:42 Antoine [facility] .CBC 2023-04-30 14:51:42 Antoine [facility] Center DIFFERENTIAL 2023-04-30 14:51:42 Antoine [facility] BLOOD UREA NITROGEN 2023-04-30 14:51:42 [facility] ELECTROLYTE PANEL 2023-04-30 14:51:[address] [facility] SERUM CREATININE 2023-04-30 14:51:42 Antoine [facility] .GLOMERULAR FILTRATION RATE 2023-04-30 14:51:42 [facility] CALCIUM LEVEL 2023-04-30 14:51:42 Antoine [facility] ALBUMIN LEVEL 2023-04-30 14:51:42 [facility] ALKALINE PHOSPHATASE 2023-04-30 14:51:42 Antoine [facility] ALANINE AMINOTRANSFERASE 2023-04-30 14:51:42 Antoine [facility] ASPARTATE AMINOTRANSFERASE 2023-04-30 14:51:42 Antoine [facility] TOTAL PROTEIN 2023-04-30 14:51:42 [facility] FRACTIONATED BILIRUBIN 2023-04-30 14:51:42 Antoine [facility] HEMOGLOBIN A1C 2023-04-02 13:50:00 Antoine [facility] COMPLETE BLOOD COUNT W/ 2023-04-02 13:50:00 Marcello Schultz [facility] DIFFERENTIAL [facility] PROTHROMBIN TIME 2023-04-02 13:50:00 Antoine [facility] ALBUMIN LEVEL 2023-04-02 13:50:00 Antoine [facility] GLUCOSE, FASTING 2023-04-02 13:50:00 [facility] 2023-04-02 13:50:00 Abouharb [facility] ALKALINE PHOSPHATASE 2023-04-02 13:50:00 Ab[facility]harbMarcello [facility] ALANINE AMINOTRANSFERASE 2023-04-02 13:50:00 AbouharbMarcello [facility] ASPARTATE AMINOTRANSFERASE 2023-04-02 13:50:00 Abouharb, [facility] LIPASE LEVEL 2023-04-02 13:50:00 Abouharb [facility] COMPREHENSIVE METABOLIC 2023-04-02 13:50:00 Marcello Schultz [facility] PANEL [facility] CARBOHYDRATE ANTIGEN 15-3 2023-04-02 13:50:00 AbouharbMarcello [facility] .CBC 2023-04-02 13:50:00 Abouhaly [facility] DIFFERENTIAL 2023-04-02 13:50:00 Abouhaly [facility] SERUM CREATININE 2023-04-02 13:50:00 Abocurtis [facility] .GLOMERULAR FILTRATION RATE 2023-04-02 13:50:00 Abocurtis [facility] BLOOD UREA NITROGEN 2023-04-02 13:50:00 Abouharb [facility] ELECTROLYTE PANEL 2023-04-02 13:50:[address] [facility] CALCIUM LEVEL 2023-04-02 13:50:00 Abouharb [facility] TOTAL PROTEIN 2023-04-02 13:50:00 [facility] FRACTIONATED BILIRUBIN 2023-04-02 13:50:00 Marcello Schultz [facility] ASSIGNMENT OF BENEFITS 2023-03-21 19:33:42 Doctor Unassigned, [facility] US ARM VENOUS DOPPLER RIGHT 2023-03-10 20:19:00 Edis Luciano [facility] COMPLETE BLOOD COUNT W/ 2023-03-05 16:05:45 AboMarcello acevedo [facility] DIFFERENTIAL [facility] COMPREHENSIVE METABOLIC 2023-03-05 16:05:45 AboMarcello acevedo [facility] PANEL [facility] CARBOHYDRATE ANTIGEN 15-3 2023-03-05 16:05:45 Marcello Schultz [facility] LIPASE LEVEL 2023-03-05 16:05:45 Abocurtis [facility] PHOSPHORUS LEVEL 2023-03-05 16:05:45 Abocurtis [facility] MAGNESIUM LEVEL 2023-03-05 16:05:45 Abouhaly [facility] .CBC 2023-03-05 16:05:45 Antoine [facility] DIFFERENTIAL 2023-03-05 16:05:45 Abocurtis [facility] GLUCOSE LEVEL 2023-03-05 16:05:45 Abocurtis [facility] BLOOD UREA NITROGEN 2023-03-05 16:05:45 Abocurtis [facility] ELECTROLYTE PANEL 2023-03-05 16:05:[address] [facility] SERUM CREATININE 2023-03-05 16:05:45 Antoine [facility] .GLOMERULAR FILTRATION RATE 2023-03-05 16:05:45 Abocurtis [facility] CALCIUM LEVEL 2023-03-05 16:05:45 Abouhaly [facility] ALBUMIN LEVEL 2023-03-05 16:05:45 [facility]Sa [facility] ALKALINE PHOSPHATASE 2023-03-05 16:05:45 AboMarcello acevedo [facility] ALANINE AMINOTRANSFERASE 2023-03-05 16:05:45 AboMarcello acevedo [facility] ASPARTATE AMINOTRANSFERASE 2023-03-05 16:05:45 Abouharb [facility] TOTAL PROTEIN 2023-03-05 16:05:45 Abocurtis [facility] FRACTIONATED BILIRUBIN 2023-03-05 16:05:45 Antoine caleb [facility] NM BONE SCAN WHOLE BODY 2023-03-03 17:18:00 Marcello Schultz [facility] CT CHEST ABDOMEN PELVIS W 2023-03-03 16:38:00 AbouhMarcello lu [facility] CONTRAST [facility] CARBOHYDRATE ANTIGEN 15-3 2023-02-05 14:30:00 AbouharbMarcello [facility] COMPLETE BLOOD COUNT W/ 2023-02-05 14:30:00 Marcello Schultz [facility] DIFFERENTIAL [facility] COMPREHENSIVE METABOLIC 2023-02-05 14:30:00 Marcello Schultz [facility] PANEL [facility] PHOSPHORUS LEVEL 2023-02-05 14:30:00 Abouharb [facility] MAGNESIUM LEVEL 2023-02-05 14:30:00 [facility] GLUCOSE LEVEL 2023-02-05 14:30:00 Abocurtis [facility] BLOOD UREA NITROGEN 2023-02-05 14:30:00 Marcello Schultz [facility] ELECTROLYTE PANEL 2023-02-05 14:30:00 [facility]INE 2023-02-05 14:30:00 [facility] .GLOMERULAR FILTRATION RATE 2023-02-05 14:30:00 [facility] CALCIUM LEVEL 2023-02-05 14:30:00 [facility] ALBUMIN LEVEL 2023-02-05 14:30:00 [facility] ALKALINE PHOSPHATASE 2023-02-05 14:30:00 [facility] ALANINE AMINOTRANSFERASE 2023-02-05 14:30:00 Koryaly [facility] ASPARTATE AMINOTRANSFERASE 2023-02-05 14:30:00 [facility] TOTAL PROTEIN 2023-02-05 14:30:00 [facility] FRACTIONATED BILIRUBIN 2023-02-05 14:30:00 [facility] .CBC 2023-02-05 14:30:00 [facility] DIFFERENTIAL 2023-02-05 14:30:00 [facility] COMPREHENSIVE METABOLIC 2023-01-08 14:39:48 Marcello Schultz [facility] [place] PANEL [facility] COMPLETE BLOOD COUNT W/ 2023-01-08 14:39:48 Marcello Schultz Uni [facility] [place] DIFFERENTIAL [facility] CARBOHYDRATE ANTIGEN 15-3 2023-01-08 14:39:48 Marcello Schultz [facility] MAGNESIUM LEVEL 2023-01-08 14:39:48 Koryaly [facility] PHOSPHORUS LEVEL 2023-01-08 14:39:48 Antoine [facility] GLUCOSE LEVEL 2023-01-08 14:39:48 Abouhaly [facility] BLOOD UREA NITROGEN 2023-01-08 14:39:48 Antoine [facility] ELECTROLYTE PANEL 2023-01-08 14:39:[address] [facility] SERUM CREATININE 2023-01-08 14:39:48 Abouhaly [facility] .GLOMERULAR FILTRATION RATE 2023-01-08 14:39:48 Abouhaly [facility] CALCIUM LEVEL 2023-01-08 14:39:48 Abouhaly [facility] ALBUMIN LEVEL 2023-01-08 14:39:48 Abouhaly [facility] ALKALINE PHOSPHATASE 2023-01-08 14:39:48 Abocurtis [facility] ALANINE AMINOTRANSFERASE 2023-01-08 14:39:48 Antoine [facility] ASPARTATE AMINOTRANSFERASE 2023-01-08 14:39:48 Koryaly [facility] TOTAL PROTEIN 2023-01-08 14:39:48 Abouhaly [facility] FRACTIONATED BILIRUBIN 2023-01-08 14:39:48 Antoine [facility] .CBC 2023-01-08 14:39:48 Abouhaly [facility] DIFFERENTIAL 2023-01-08 14:39:48 Abouhaly [facility] GLUCOSE, FASTING 2022-12-19 18:13:02 Koryuhaly [facility] COMPLETE BLOOD COUNT W/ 2022-12-05 16:38:14 [facility] DI[facility]ENTIAL [facility] PROTHROMBIN TIME 2022-12-05 16:38:14 Abouhaly [facility] ALBUMIN LEVEL 2022-12-05 16:38:14 [facility] GLUCOSE, FASTING 2022-12-05 16:38:14 [facility] CREATININE 2022-12-05 16:38:14 [facility] BILIRUBIN TOTAL 2022-12-05 16:38:14 [facility] ALKALINE PHOSPHATASE 2022-12-05 16:38:14 [facility] [place] [place] ALANINE AMINOTRANSFERASE 2022-12-05 16:38:14 Marcello Schultz [facility] ASPARTATE AMINOTRANSFERASE 2022-12-05 16:38:14 [facility] LIPASE LEVEL 2022-12-05 16:38:14 [facility] HEMOGLOBIN A1C 2022-12-05 16:38:14 [facility] .CBC 2022-12-05 16:38:14 [facility] DI[facility]ENTIAL 2022-12-05 16:38:14 [facility] SERUM CREATININE 2022-12-05 16:38:14 [facility] .GLOMERULAR FILTRATION RATE 2022-12-05 16:38:14 Antoine [facility] CARBOHYDRATE ANTIGEN 15-3 2022-12-03 14:43:00 Marcello Schultz [facility] COMPLETE BLOOD COUNT W/ 2022-12-03 14:43:00 Marcello Schultz [facility] [place] DIFFERENTIAL [facility] COMPREHENSIVE METABOLIC 2022-12-03 14:43:00 Marcello Schultz Uni [facility] [place] PANEL [facility] PHOSPHORUS LEVEL 2022-12-03 14:43:00 [facility] MAGNESIUM LEVEL 2022-12-03 14:43:00 [facility] GLUCOSE LEVEL 2022-12-03 14:43:00 [facility] BLOOD UREA NITROGEN 2022-12-03 14:43:00 [facility] ELECTROLYTE PANEL 2022-12-03 14:43:00 [facility] SERUM CREATININE 2022-12-03 14:43:00 [facility] .GLOMERULAR FILTRATION RATE 2022-12-03 14:43:00 [facility] CALCIUM LEVEL 2022-12-03 14:43:00 [facility] ALBUMIN LEVEL 2022-12-03 14:43:00 [facility] ALKALINE PHOSPHATASE 2022-12-03 14:43:00 [facility] ALANINE AMINOTRANSFERASE 2022-12-03 14:43:00 [facility] ASPARTATE AMINOTRANSFERASE 2022-12-03 14:43:00 [facility] TOTAL PROTEIN 2022-12-03 14:43:00 [facility], [facility] FRACTIONATED BILIRUBIN 2022-12-03 14:43:00 [facility] .CBC 2022-12-03 14:43:00 [facility] DIFFERENTIAL 2022-12-03 14:43:00 [facility] QIAC SERVICES 2022-11-15 17:09:14 Alvaro Arellano [facility] NM BONE SCAN WHOLE BODY 2022-11-08 17:55:00 Marcello Schultz [facility] CHEST ABDOMEN PELVIS W 2022-11-08 16:39:25 Marcello Schultz [facility] CONTRAST [facility] PETCT SUBSEQUENT TREATMENT 2022-10-25 17:28:23 Antoine [facility] STRATEGY [facility] COMPREHENSIVE METABOLIC 2022-10-23 18:23:00 AbouharbMarcello [facility] [place] PANEL [facility] COMPLETE BLOOD COUNT W/ 2022-10-23 18:23:00 Marcello Schultz [facility] [place] DIFFERENTIAL [facility] CARBOHYDRATE ANTIGEN 15-3 2022-10-23 18:23:00 Marcello Schultz [facility] PHOSPHORUS LEVEL 2022-10-23 18:23:00 Abouharb [facility] MAGNESIUM LEVEL 2022-10-23 18:23:00 Abouharb, [facility] GLUCOSE LEVEL 2022-10-23 18:23:00 [facility] BLOOD UREA NITROGEN 2022-10-23 18:23:00 Koryaly [facility] ELECTROLYTE PANEL 2022-10-23 18:23:[address] [facility] SERUM CREATININE 2022-10-23 18:23:00 [facility] .GLOMERULAR FILTRATION RATE 2022-10-23 18:23:00 [facility] CALCIUM LEVEL 2022-10-23 18:23:00 [facility], [facility] ALBUMIN LEVEL 2022-10-23 18:23:00 [facility], [facility] ALKALINE PHOSPHATASE 2022-10-23 18:23:00 [facility] ALANINE AMINOTRANSFERASE 2022-10-23 18:23:00 Marcello Schultz [facility] ASPARTATE AMINOTRANSFERASE 2022-10-23 18:23:00 [facility] TOTAL PROTEIN 2022-10-23 18:23:00 [facility] FRACTIONATED BILIRUBIN 2022-10-23 18:23:00 Koryaly [facility] .CBC 2022-10-23 18:23:00 Antoine [facility] DIFFERENTIAL 2022-10-23 18:23:00 Antoine [facility] COMPLETE BLOOD COUNT W/ 2022-10-08 15:41:36 Marcello Schultz [facility] DIFFERENTIAL [facility] COMPREHENSIVE METABOLIC 2022-10-08 15:41:36 Marcello Schultz [facility] PANEL [facility] CARBOHYDRATE ANTIGEN 15-3 2022-10-08 15:41:36 [facility]cell[facility]ultz [facility] MAGNESIUM LEVEL 2022-10-08 15:41:36 [facility] PHOSPHORUS LEVEL 2022-10-08 15:41:36 [facility] THYROID STIMULATING HORMONE 2022-10-08 15:41:36 Edis Luciano [facility] FREE THYROXINE 2022-10-08 15:41:36 Edis Luciano [facility] .CBC 2022-10-08 15:41:36 Antoine [facility] DIFFERENTIAL 2022-10-08 15:41:36 Antoine [facility] GLUCOSE LEVEL 2022-10-08 15:41:36 [facility] BLOOD UREA NITROGEN 2022-10-08 15:41:36 [facility] ELECTROLYTE PANEL 2022-10-08 15:41:36 [facility] SERUM CREATININE 2022-10-08 15:41:36 [facility] .GLOMERULAR FILTRATION RATE 2022-10-08 15:41:36 [facility] CALCIUM LEVEL 2022-10-08 15:41:36 [facility] ALBUMIN LEVEL 2022-10-08 15:41:36 [facility] ALKALINE PHOSPHATASE 2022-10-08 15:41:36 [facility] ALANINE AMINOTRANSFERASE 2022-10-08 15:41:36 [facility] ASPARTATE AMINOTRANSFERASE 2022-10-08 15:41:36 [facility] TOTAL PROTEIN 2022-10-08 15:41:36 [facility] FRACTIONATED BILIRUBIN 2022-10-08 15:41:36 [facility] AP IHC ER MATERIAL REQUEST 2022-10-01 17:33:23 Edis Luciano [facility] AP IHC HER2/ANTWAN MATERIAL 2022-10-01 17:33:23 Edis Luciano [facility] [place] REQUEST [facility] PATHOLOGY BIOPSY 2022-09-26 21:24:00 Delores Oakes [facility] INTERPRETATION [facility] COMPLETE BLOOD COUNT W/ 2022-09-05 15:36:33 Marcello Schultz [facility] [place] DIFFERENTIAL [facility] COMPREHENSIVE METABOLIC 2022-09-05 15:36:33 Marcello Schultz [facility] [place] PANEL [facility] PHOSPHORUS LEVEL 2022-09-05 15:36:33 Antoine [facility] MAGNESIUM LEVEL 2022-09-05 15:36:33 [facility] CARBOHYDRATE ANTIGEN 15-3 2022-09-05 15:36:33 Antoine [facility] .CBC 2022-09-05 15:36:33 [facility] DIFFERENTIAL 2022-09-05 15:36:33 [facility] GLUCOSE LEVEL 2022-09-05 15:36:33 [facility] BLOOD UREA NITROGEN 2022-09-05 15:36:33 [facility] E[facility]EL 2022-09-05 15:36:33 [facility] SERUM CREATININE 2022-09-05 15:36:33 [facility] .GLOMERULAR FILTRATION RATE 2022-09-05 15:36:33 [facility] CALCIUM LEVEL 2022-09-05 15:36:33 [facility] ALBUMIN LEVEL 2022-09-05 15:36:33 [facility] ALKALINE PHOSPHATASE 2022-09-05 15:36:33 [facility] [place] ALANINE AMINOTRANSFERASE 2022-09-05 15:36:33 [facility] ASPARTATE AMINOTRANSFERASE 2022-09-05 15:36:33 [facility] TOTAL PROTEIN 2022-09-05 15:36:33 [facility] FRACTIONATED BILIRUBIN 2022-09-05 15:36:33 [facility] URINALYSIS WITH MICROSCOPIC 2022-09-04 00:20:00 Dixie Leblanc [facility] IF INDICATED [facility] BLOODCULTURE 2022-09-03 22:55:00 Dixie Leblanc [facility] COMPLETE BLOOD COUNT W/ 2022-09-03 22:55:00 Dixie Leblanc [facility] DIFFERENTIAL [facility] TYPE AND SCREEN 2022-09-03 22:55:00 Dixie Leblanc [facility] NT PRO BNP 2022-09-03 22:55:00 Dixie Leblanc [facility] D DIMER 2022-09-03 22:55:00 Dixie Leblanc [facility] PROTHROMBIN TIME 2022-09-03 22:55:00 Dixie Leblanc [facility] APTT 2022-09-03 22:55:00 Dixie Leblanc [facility] COMPREHENSIVE METABOLIC 2022-09-03 22:55:00 Dixie Leblanc [facility] PANEL [facility] MAGNESIUM LEVEL 2022-09-03 22:55:00 Dixie Leblanc [facility] PHOSPHORUS LEVEL 2022-09-03 22:55:00 Dixie Leblanc [facility] Results CBC 2022-09-03 22:55:00 Dixie Leblanc [facility] MANUAL DIFFERENTIAL 2022-09-03 22:55:00 Dixie Leblanc [facility] GLUCOSE LEVEL 2022-09-03 22:55:00 Dixie Leblanc [facility] BLOOD UREA NITROGEN 2022-09-03 22:55:00 Dixie Leblanc [facility] ELECTROLYTE PANEL 2022-09-03 22:55:00 Dixie Leblanc [facility] SERUM CREATININE 2022-09-03 22:55:00 Dixie Leblanc [facility] .GLOMERULAR FILTRATION RATE 2022-09-03 22:55:00 Dixie Leblanc [facility] CALCIUM LEVEL TOTAL 2022-09-03 22:55:00 Dixie Leblanc [facility] ALBUMIN LEVEL 2022-09-03 22:55:00 Dixie Leblanc [facility] ALKALINE PHOSPHATASE 2022-09-03 22:55:00 Dixie Leblanc [facility] ALANINE AMINOTRANSFERASE 2022-09-03 22:55:00 Dixie Leblanc [facility] ASPARTATE AMINOTRANSFERASE 2022-09-03 22:55:00 Dixie Leblanc [facility] TOTAL PROTEIN 2022-09-03 22:55:00 Dixie Leblanc [facility] ANTIBODY SCREEN 2022-09-03 22:55:00 Dixie Leblanc [facility] FRACTIONATED BILIRUBIN 2022-09-03 22:55:00 Dixie Leblanc [facility] TMP INTERPRETATION ANTIBODY 2022-09-03 22:55:00 Dixie Leblanc [facility] SCREEN NEGATIVE [facility] ABORH MANUAL 2022-09-03 22:55:00 Dixie Leblanc [facility] CLOT EXPIRATION DATE 2022-09-03 22:55:00 Dixie Leblanc [facility] US ARM VENOUS DOPPLER RIGHT 2022-09-03 22:14:46 Dixie Leblanc [facility] BASIC METABOLIC PANEL, 2022-08-22 20:52:16 Vivian Granados [facility] CALCIUM TOTAL [facility] VITAMIN D 25 HYDROXY LEVEL 2022-08-22 20:52:16 Edis Luciano [facility] GLUCOSE LEVEL 2022-08-22 20:52:16 Vivian Granados [facility] BLOOD UREA NITROGEN 2022-08-22 20:52:16 Vivian Granados [facility] ELECTROLYTE PANEL 2022-08-22 20:52:16 Vivian Granados [facility] SERUM CREATININE 2022-08-22 20:52:16 Vivian Granados [facility] .GLOMERULAR FILTRATION RATE 2022-08-22 20:52:16 Vivian Granados [facility] CALCIUM LEVEL TOTAL 2022-08-22 20:52:16 Vivian Granados [facility] US HEAD NECK SOFT TISSUE 2022-08-22 20:33:00 Edis Luciano [facility] US RENAL 2022-08-22 20:17:46 Darwin [facility] URINALYSIS 2022-03-29 00:43:00 Pabon, [facility] NOTICE OF PRIVACY PRACTICES 2022-03-29 00:04:27 Doctor Angy jaramillo [facility] [place] [facility] CONSENT/REFUSAL FOR 2022-03-29 00:03:59 Doctor Srinivas [facility] DIAGNOSIS AND TREATMENT [place] [facility] Plan of Care Planned Activity Planned Date Details Comments Source Future Scheduled 2023-09-03 [facility] Test 20:21:19 malignant neoplasm of colon (procedure) [code = 767007465] Future Scheduled 2023-09-03 [facility] 20:21:19 malignant neoplasm of colon (procedure) [code = 463751196] Future Scheduled 2023-09-03 [facility] Test 20:21:19 malignant neoplasm of colon (procedure) [code = 671072756] Future Scheduled 2023-09-03 COVID-19 [facility]ACCINE (#[facility]) [facility]:21:19 [code = COVID-19 VACCINE (#1)] Future Scheduled 2023-09-03 [facility] 20:21:19 malignant neoplasm of cervix (procedure) [code = 632238419] Future Scheduled 2023-09-03 BREAST CANCER [facility] Test 20:21:19 SCREENING [code = BREAST CANCER SCREENING] Future Scheduled 2023-09-03 [facility] Test 20:21:19 malignant neoplasm of colon (procedure) [code = 277142321] Future Scheduled 2023-09-03 [facility] Test 20:21:19 malignant neoplasm of colon (procedure) [code = 752042739] Future Scheduled 2023-09-03 SHINGLES VACCINES (1 Met [facility] Hospital Test 20:21:19 of 2) [code = SHINGLES VACCINES (1 of 2)] Future Scheduled 2023-09-03 INFLUENZA VACCINE [facility] 20:21:19 (#1) [code = INFLUENZA VACCINE (#1)] Future Scheduled 2023-09-03 [facility] 20:21:19 malignant neoplasm of colon (procedure) [code = 812619345] Future Scheduled 2023-09-03 [facility] Test 20:21:19 malignant neoplasm of colon (procedure) [code = 900828051] Future Scheduled 2023-09-03 [facility] Test 20:21:19 malignant neoplasm of colon (procedure) [code = 201047825] Future Scheduled 2023-09-03 COVID-19 VACCINE (#1) [facility] Test 20:21:19 [code = COVID-19 VACCINE (#1)] Future Scheduled 2023-09-03 [facility] Test 20:21:19 malignant neoplasm of cervix (procedure) [code = 748226234] Future Scheduled 2023-09-03 BREAST [facility] Test 20:21:19 SCREENING [code = BREAST CANCER SCREENING] Future Scheduled 2023-09-03 [facility] Test 20:21:19 malignant neoplasm of colon (procedure) [code = 308280823] Future Scheduled 2023-09-03 [facility] Test 20:21:19 malignant neoplasm of colon (procedure) [code = 594081344] Future Scheduled 2023-09-03 SHINGLES VACCINES (1 [facility] Hospital Test 20:21:19 of 2) [code = SHINGLES VACCINES (1 of 2)] Future Scheduled 2023-09-03 INFLUENZA VACCINE [facility] 20:21:19 (#1) [code = INFLUENZA VACCINE (#1)] Future Scheduled 2023-09-03 COVID-19 [facility]38 (3 - Moderna risk MD Rudolph n Cancer series) [code = Center COVID-19 Vaccination (3 - Moderna risk series)] Future Scheduled 2023-09-03 COVID-19 Vaccination [facility] [place] Test 07:09:38 (3 - Moderna risk MD Klaudia gibbs Cancer series) [code = Center COVID-19 Vaccination (3 - Moderna risk series)] Future Scheduled 2023-08-17 [facility] Test 20:38:32 malignant neoplasm of colon (procedure) [code = 306648751] Future Scheduled 2023-08-17 [facility] Test 20:38:32 malignant neoplasm of colon (procedure) [code = 196857785] Future Scheduled 2023-08-17 [facility] Test 20:38:32 malignant neoplasm of colon (procedure) [code = 258427060] Future Scheduled 2023-08-17 COVID-19 VACCINE (#1) [facility] Test 20:38:32 [code = COVID-19 VACCINE (#1)] Future Scheduled 2023-08-17 [facility] Test 20:38:32 malignant neoplasm of cervix (procedure) [code = 230821101] Future Scheduled 2023-08-17 [facility] Test 20:38:32 SCREENING [code = BREAST CANCER SCREENING] Future Scheduled 2023-08-17 [facility] Test 20:38:32 malignant neoplasm of colon (procedure) [code = 676521686] Future Scheduled 2023-08-17 [facility] Test 20:38:32 malignant neoplasm of colon (procedure) [code = 559511197] Future Scheduled 2023-08-17 SHINGLES VACCINES (1 [facility] Test 20:38:32 of 2) [code = SHINGLES VACCINES (1 of 2)] Future Scheduled 2023-08-17 INFLUENZA VACCINE [facility] Test 20:38:32 (#1) [code = INFLUENZA VACCINE (#1)] Future Scheduled 2023-08-17 COVID-19 Vaccination [facility] [place] Test 12:37:20 (3 - Moderna risk MD Klaudia gibbs Cancer series) [code = Center COVID-19 Vaccination (3 - Moderna risk series)] Encounters Start End Encounter Admission Attending Care Care Encounter Source Date/Time Date/Time Type Type Clinicians Facility Department ID 2023-08-27 Inpatient EL JOSE, MDA MDA [id number] 14:56:36 LIZET Anderso n 2023-08-23 Inpatient UR BALBINA LI MDA ICT Phase 1 [id number] 10:43:00 [id number] Anderso n 2023-07-25 Inpatient UR SILAS MDA ICT Phase 1 [id number] 17:57:00 , APOSTOLIA [id number] And erso n 2023-07-03 Outpatient ADIBI, [facility] Urology [id number] 15:53:47 ANASTACIA Reeveso n 2023-05-30 Outpatient EL JAVON, [facility] Pulm Med [id number] 13:33:54 JALIL gibbs 2023-02-11 Outpatient SYSTEM, MDA MDA [id number] 11:36:58 PROVIDER Leandro o n 2022-12-20 Outpatient SYSTEM, MDA MDA [id number] 12:39:43 PROVIDER Leandro o n 2022-09-24 Outpatient SYSTEM, MDA MDA [id number] 09:02:26 PROVIDER Leandro o n 2022-06-05 Outpatient SYSTEM, MDA MDA [id number] 08:51:35 PROVIDER Leandro o n 2022-05-16 Outpatient ADIBI, [facility] Urology [id number] 09:10:22 ANASTACIA Farrellerso sai 2022-05-02 Outpatient STLMLC STLMLC [id number] Common 13:29:02 [facility] 2022-02-20 Outpatient STLMLC STLMLC [id number] Common 08:24:02 [facility] 2022-01-30 Outpatient STLMLC STLMLC [id number] Common 08:55:04 [facility] 2022-01-28 Outpatient STLMLC STLMLC [id number] Common 10:18:04 [facility] 2021-11-30 Outpatient SYSTEM, [facility] MDA [id number] 12:24:59 PROVIDER Leandro o n 2021-10-24 Outpatient SYSTEM, MDA JAMIE [id number] 15:04:00 PROVIDER Leandro o n 2023-08-23 2023-09-03 [facility] Abram Loza P 1.2.840.1 [id number] [facility] 10:43:00 14:23:00 Encounter Allegra Henderson 78987.1.1 ity of [place], Ecaterina E 3.412.2.7 [place] Fu, Siqing .3.443687 .8 [facility] 2023-08-23 2023-09-03 [facility] Abram Loza P 1.2.840.1 [id number] [facility] 10:43:00 14:23:00 Encounter Allegra Henderson 89710.1.1 ity of [place], Ecaterina E 3.412.2.7 [place] Fu, Siqing .3.366182 .8 [facility] 2023-09-01 2023-09-01 Inpatient GUILLERMO, [facility] MDA [id number] 14:28:11 15:14:55 Leandro o n 2023-09-01 2023-09-01 Inpatient FAVENITA, [facility] MDA [id number] 12:24:55 13:16:40 KIM Leandro o n 2023-08-31 2023-08-31 Inpatient REID, [facility] MDA [id number] 13:27:44 13:53:32 ARIC Leandro o n 2023-08-31 2023-08-31 Inpatient GUILLERMO, [facility] MDA [id number] 11:32:56 12:43:06 Leandro o n 2023-08-31 2023-08-31 Inpatient REID, [facility] MDA [id number] 10:22:12 10:22:21 MACEYE Leandro o n 2023-08-29 2023-08-29 [facility], 1.2.840.1 [id number] [facility] 15:00:00 23:59:00 Encounter Tri 01422.1.1 it y of Pulfer 3.412.2.7 [place] .3.108310 .8 [facility] [place] 2023-08-29 2023-08-29 [facility] 1.2.840.1 [id number] Univers 15:00:00 23:59:00 Encounter Tri 47686.1.1 it y of Pulfer 3.412.2.7 [place] .3.300487 MD Kong8 [facility] 2023-08-27 2023-08-27 Documentat Bao 1.2.840.1 [id number] Univers 00:00:00 00:00:00 ion Tri 22102.1.1 ity of Pulfer 3.412.2.7 [place] .3.815534 MD Kong8 [facility] 2023-08-27 2023-08-27 Koki Martin 1.2.840.1 [id number] Univers 00:00:00 00:00:00 Only 76179.1.1 ity of 3.412.2.7 [place] .3.584149 MD Kong8 [facility] 2023-08-27 2023-08-27 Documentat Koki Olvera 1.2.840.1 [id number] Univers 00:00:00 00:00:00 ion 33295.1.1 ity of 3.412.2.7 [place] .3.410690 MD Kong8 [facility] 2023-08-27 2023-08-27 Documentat Koki Olvera 1.2.840.1 [id number] Univers 00:00:00 00:00:00 ion 35042.1.1 ity of 3.412.2.7 [place] .3.572559 MD Kong8 [facility] 2023-08-27 2023-08-27 Documentat Bao 1.2.840.1 [id number] Univers 00:00:00 00:00:00 ion Tri 17068.1.1 ity of Pulfer 3.412.2.7 [place] .3.229291 MD Kong8 [facility] 2023-08-27 2023-08-27 Koki Martin 1.2.840.1 [id number] Univers 00:00:00 00:00:00 Only 36858.1.1 ity of 3.412.2.7 [place] .3.857228 MD Kong8 [facility] [place] 2023-08-27 2023-08-27 Documentat Koki Olvera 1.2.840.1 [id number] Univers 00:00:00 00:00:00 ion 82344.1.1 ity of 3.412.2.7 [place] .3.010991 MD Kong8 [facility] 2023-08-27 2023-08-27 Documentat Wade Koki 1.2.840.1 [id number] Univers 00:00:00 00:00:00 ion 57865.1.1 ity of 3.412.2.7 [place] .3.710730 MD Kong8 [facility] 2023-08-26 2023-08-26 Inpatient [facility], [facility] MDA [id number] 19:49:19 21:20:45 [place] Juan rso 2023-08-26 2023-08-26 Inpatient [facility], [facility] MDA [id number] 16:33:59 17:04:16 ECATERINA Juan rso n 2023-08-26 2023-08-26 Orders Abouharb, 1.2.840.1 [id number] Univers 00:00:00 00:00:00 Only Sausan 17954.1.1 ity of 3.412.2.7 [place] .3.297364 MD Kong8 [facility] 2023-08-26 2023-08-26 Orders de Lumban, 1.2.840.1 [id number] Univers 00:00:00 00:00:00 Only Debra C 98578.1.1 ity of 3.412.2.7 [place] .3.116096 MD Kong8 [facility] 2023-08-26 2023-08-26 Documentat Bao, 1.2.840.1 [id number] Univers 00:00:00 00:00:00 ion Tri 26499.1.1 ity of Pulfer 3.412.2.7 [place] .3.576015 MD Kong8 [facility] 2023-08-26 2023-08-26 Documentat Bao, 1.2.840.1 [id number] 1 [id number] Univers 00:00:00 00:00:00 ion Tri 27223.1.1 ity of Pulfer 3.412.2.7 [place] .3.446501 MD Kong8 [facility] 2023-08-26 2023-08-26 Documentat Bao, 1.2.840.1 [id number] 1 [id number] Univers 00:00:00 00:00:00 ion Tri 17108.1.1 ity of Pulfer 3.412.2.7 [place] .3.515075 MD Kong8 [facility] 2023-08-26 2023-08-26 Orders Abouharb, 1.2.840.1 [id number] Univers 00:00:00 00:00:00 Only Sausan 91979.1.1 ity of 3.412.2.7 [place] .3.078536 MD Kong8 [facility] 2023-08-26 2023-08-26 Orders de Lumban, 1.2.840.1 [id number] Univers 00:00:00 00:00:00 Only Debra C 20822.1.1 ity of 3.412.2.7 [place] .3.374433 MD Kong8 [facility] 2023-08-26 2023-08-26 Documentat Bao, 1.2.840.1 [id number] Univers 00:00:00 00:00:00 ion Tri 76081.1.1 ity of Pulfer 3.412.2.7 [place] .3.854899 MD Kong8 [facility] 2023-08-25 2023-08-25 Surgery Faiz, 1.2.840.1 [id number] Univers 11:00:00 12:00:00 Kim 68216.1.1 ity of 3.412.2.7 [place] .3.499385 MD Kong8 [facility] 2023-08-25 2023-08-25 Surgery Faiz, 1.2.840.1 [id number] Univers 11:00:00 12:00:00 Kim 16445.1.1 ity of 3.412.2.7 [place] .3.450394 MD Kong8 [facility] 2023-08-25 2023-08-25 Inpatient DAYSI HENDERSON [facility] [id number] 08:55:19 09:17:57 ALLEGRA gibbs 2023-08-25 2023-08-25 Orders Genevieve, 1.2.840.1 [id number] Univers 00:00:00 00:00:00 Only Sarahi Grady 85685.1.1 i ty of 3.412.2.7 [place] .3.306670 .8 [facility] 2023-08-25 2023-08-25 Orders Bao 1.2.840.1 [id number] [id number] Univers 00:00:00 00:00:00 Only Tri 49511.1.1 ity of Pulfer 3.412.2.7 [place] .3.460292 .8 [facility] 2023-08-25 2023-08-25 Orders Genevieve, 1.2.840.1 [id number] [id number] Univers 00:00:00 00:00:00 Only Sarahi Grady 87044.1.1 i ty of 3.412.2.7 [place] .3.657168 .8 [facility] 2023-08-25 2023-08-25 Orders Bao 1.2.840.1 [id number] Univers 00:00:00 00:00:00 Only Tri 05531.1.1 ity of Pulfer 3.412.2.7 [place] .3.080349 .8 [facility] 2023-08-24 2023-08-24 Inpatient DAYSI HENDERSON [facility] [id number] 18:32:28 18:32:37 ALLEGRA gibbs 2023-08-24 2023-08-24 Inpatient DAYSI HENDERSON, [facility] [id number] 18:00:29 18:32:32 ALLEGRA gibbs 2023-08-24 2023-08-24 Prep for René, 1.2.840.1 [id number] Univers 00:00:00 00:00:00 Surgery Syed 58074.1.1 ity of 3.412.2.7 [place] .3.082194 MD Maria [facility] 2023-08-24 2023-08-24 Prep for René, 1.2.840.1 [id number] Univers 00:00:00 00:00:00 Surgery Syed 90905.1.1 ity of 3.412.2.7 [place] .3.375527 MD Maria [facility] 2023-08-23 2023-08-23 Inpatient DAGO [facility] [id number] 16:09:07 16:48:36 , ABRAM gibbs 2023-08-23 2023-08-23 Travel 1.2.840.1 1.2.292.337 [id number] Univers 00:00:00 00:00:00 04095.1.1 350.1.13.41 ity of 3.412.2.7 [place]3.698 [place] .3.805356 084.8 MD Maria [facility] 2023-08-23 2023-08-23 Travel 1.2.840.1 1.2.388.565 [id number] Univers 00:00:00 00:00:00 52979.1.1 350.1.13.41 [place]y of 3.412.2.[place].698 [place] .3.038199 084.8 MD Maria [facility] 2023-08-22 2023-08-22 Hospital DAYSI Rowland, 1.2.840.1 [id number] Univers 15:10:13 23:59:00 Encounter Blair 08785.1.1 it y of 3.412.2.7 [place] .3.217788 MD Kong8 [facility] 2023-08-22 2023-08-22 [facility], 1.2.840.1 [id number] Univers :13 23:59:00 Encounter Toñai 66421.1.1 it y of 3.412.2.7 [place] .3.847171 .8 [facility] 2023-08-22 2023-08-22 [facility] Jose, 1.2.840.1 [id number] [id number] Univers 10:00:00 15:09:00 Encounter Lizet 20365.1.1 it y of 3.412.2.7 [place] .3.290374 .8 [facility] 2023-08-22 2023-08-22 [facility], 1.2.840.1 [id number] Univers 10:00:00 15:09:00 Encounter Lizet 28291.1.1 it y of 3.412.2.7 [place] .3.916778 .8 [facility] 2023-08-22 2023-08-22 Ancillary DAYSI Ardon, 1.2.840.1 [id number] Univers 14:15:00 14:30:00 Procedure Juan 14051.1.1 i ty of 3.412.2.7 [place] .3.346707 .8 [facility] 2023-08-22 2023-08-22 Ancillary Reva, 1.2.840.1 [id number] Univers 14:15:00 14:30:00 Procedure Juan 87863.1.1 i ty of 3.412.2.7 [place] .3.777037 MD Kong8 [facility] 2023-08-22 2023-08-22 Follow-Up Jennifer Wilkinson 1.2.840.1 [id number] Univers 12:00:00 14:27:57 Marcella Sherman 12453.1.1 ity of 3.412.2.7 [place] .3.580294 MD [facility] 2023-08-22 2023-08-22 Follow-Up Jennifer West 1.2.840.1 [id number] Univers 12:00:00 14:27:57 Marcella Sherman 17741.1.1 ity of 3.412.2.7 [place] .3.643648 MD [facility] 2023-08-22 2023-08-22 Ancillary EL Urschel, 1.2.840.1 [id number] [id number] Univers 14:00:00 14:15:00 Procedure Juan 11010.1.1 i ty of 3.412.2.7 [place] .3.017564 MD [facility] 2023-08-22 2023-08-22 Ancillary Urschel, 1.2.840.1 [id number] [id number] Univers 14:00:00 14:15:00 Procedure Juan 11661.1.1 i ty of 3.412.2.7 [place] .3.475353 MD [facility] 2023-08-22 2023-08-22 Telephone Urschel, 1.2.840.1 [id number] [id number] Univers 00:00:00 00:00:00 Juan 94586.1.1 ity of 3.412.2.7 [place] .3.730160 MD [facility] 2023-08-22 2023-08-22 Fredy Alegre, 1.2.840.1 [id number] 037 [id number] Univers 00:00:00 00:00:00 Management Ambika Mejia 69209.1.1 ity of 3.412.2.7 [place] .3.321011 MD [facility] 2023-08-22 2023-08-22 Oumar Rowland, 1.2.840.1 [id number] Univers 00:00:00 00:00:00 Only Blair 49577.1.1 ity of 3.412.2.7 [place] .3.445272 MD [facility] 2023-08-22 2023-08-22 Travel 1.2.840.1 1.2.279.279 9416 [id number] Univers 00:00:00 00:00:00 64986.1.1 350.1.13.41 ity of 3.412.2.7 [place].7.3.698 [place]3.[place]018[place] 084.8 MD [facility] 2023-08-22 2023-08-22 Telephone Reva, 1.2.840.1 [id number] [id number] Univers 00:00:00 00:00:00 Juna 24081.1.1 ity of 3.412.2.7 [place] .3.004294 MD [facility] 2023-08-22 2023-08-22 Case Destinee Graves, 1.2.840.1 [id number] [id number] Univers 00:00:00 00:00:00 Management Ambika Mejia 64662.1.1 ity of 3.412.2.7 [place] .3.183137 MD [facility] 2023-08-22 2023-08-22 Orders Kashif, 1.2.840.1 [id number] Univers 00:00:00 00:00:00 Only Shibili 21911.1.1 ity of 3.412.2.7 [place] .3.985197 MD [facility] 2023-08-22 2023-08-22 Travel 1.2.840.1 1.2.579.727 2914 [id number] Univers 00:00:00 00:00:00 84417.1.1 350.1.13.41 ity of 3.412.2.7 2.[place].7.3.698 [place]3.6269[place] 084.8 MD [facility] 2023-08-20 2023-08-20 Documentat Koki Olvera 1.2.840.1 [id number] Univers 00:00:00 00:00:00 ion 19169.1.1 ity of 3.412.2.7 [place] .3.508570 MD [facility] 2023-08-20 2023-08-20 Documentat Koki Olvera 1.2.840.1 [id number] Univers 00:00:00 00:00:00 ion 63536.1.1 ity of 3.412.2.7 [place] .3.612488 MD [facility] 2023-08-17 2023-08-17 Documentat Koki Olvera 1.2.840.1 [id number] Univers 00:00:00 00:00:00 ion 49191.1.1 ity of 3.412.2.7 [place] .3.757904 MD [facility] 2023-08-17 2023-08-17 Documentat Koki Olvera 1.2.840.1 [id number] Univers 00:00:00 00:00:00 ion 43349.1.1 ity of 3.412.2.7 [place] .3.487278 MD [facility] 2023-08-15 2023-08-15 Telephone Koki Olvera 1.2.840.1 [id number] Univers 00:00:00 00:00:00 66998.1.1 ity of 3.412.2.7 [place] .3.950564 MD [facility] 2023-08-15 2023-08-15 Orders Deonte, Carlos 1.2.840.1 [id number] 11 [id number] Univers 00:00:00 00:00:00 Only 65237.1.1 ity of 3.412.2.7 [place] .3.711051 MD [facility] 2023-08-15 2023-08-15 Orders Koki Olvera 1.2.840.1 [id number] 11 [id number] Univers 00:00:00 00:00:00 Only 35030.1.1 ity of 3.412.2.7 [place] .3.754856 MD [facility] 2023-08-15 2023-08-15 Orders Magalie, 1.2.840.1 [id number] Univers 00:00:00 00:00:00 Only Sumaya A 06072.1.1 ity of 3.412.2.7 [place] .3.873411 MD [facility] 2023-08-15 2023-08-15 Telephone Wade Koki 1.2.840.1 [id number] Univers 00:00:00 00:00:00 22269.1.1 ity of 3.412.2.7 [place] .3.987148 MD [facility] 2023-08-15 2023-08-15 Orders Carlos Clemons 1.2.840.1 [id number] 11 [id number] Univers 00:00:00 00:00:00 Only 84959.1.1 ity of 3.412.2.7 [place] .3.408045 MD [facility] 2023-08-15 2023-08-15 Orders Koki Olvera 1.2.840.1 [id number] 11 [id number] Univers 00:00:00 00:00:00 Only 34818.1.1 ity of 3.412.2.7 [place] .3.994898 MD [facility] 2023-08-15 2023-08-15 Orders [place], 1.2.840.1 [id number] [id number] Univers 00:00:00 00:00:00 Only Sumaya A 49460.1.1 ity of 3.412.2.7 [place] .3.100549 MD [facility] 2023-08-14 2023-08-14 [facility] Josh Israel 1.2.840.1 [id number] Univers 12:00:00 12:00:00 Encounter Sivakumar Carroll 34463.1.1 ity of 3.412.2.7 [place] .3.827185 MD Kong8 [facility] 2023-08-14 2023-08-14 [facility] 1.2.840.1 [id number] Univers 12:00:00 12:00:00 Encounter Josh 75116.1.1 it y of 3.412.2.7 [place] .3.972476 MD [facility] 2023-08-14 2023-08-14 [facility] Maco, 1.2.840.1 [id number] Univers 12:00:00 12:00:00 Encounter Josh 24344.1.1 it y of 3.412.2.7 [place] .3.644363 MD [facility] 2023-08-14 2023-08-14 [facility] Josh Dewey 1.2.840.1 [id number] Univers 12:00:00 12:00:00 Encounter CarlySivakumar torres 75964.1.1 ity of 3.412.2.7 [place] .3.236968 MD [facility] 2023-08-14 2023-08-14 [facility] Vianca Culver 1.2.840.1 [id number] 1 [id number] Univers 10:00:00 11:59:00 Encounter 16928.1.1 it y of 3.412.2.7 [place] .3.959239 MD [facility] 2023-08-14 2023-08-14 [facility] Vianca Campos 1.2.840.1 [id number] 1 [id number] Univers 10:00:00 11:59:00 Encounter 94599.1.1 it y of 3.412.2.7 [place] .3.809748 MD [facility] 2023-08-14 2023-08-14 Outpatient VIANCA CULVER [facility] MDA 102 [id number] MD 10:00:00 10:00:00 696841 [facility] 2023-08-14 2023-08-14 Orders Tristen, 1.2.840.1 [id number] Univers 00:00:00 00:00:00 Only Jenniffer 25165.1.1 ity of 3.412.2.7 [place] .3.490261 MD [facility] 2023-08-14 2023-08-14 Travel 1.2.840.1 1.2.189.528 9944 [id number] Univers 00:00:00 00:00:00 56441.1.1 350.1.13.41 ity of 3.412.2.7 2.2.7.3.698 [place] .3.804096 084.8 MD [facility] 2023-08-14 2023-08-14 Oumar Ramon, 1.2.840.1 [id number] Univers 00:00:00 00:00:00 Only Jenniffer 31155.1.1 ity of 3.412.2.7 [place] .3.906956 MD [facility] 2023-08-14 2023-08-14 Travel 1.2.840.1 1.2.253.587 5464 [id number] Univers 00:00:00 00:00:00 29967.1.1 350.1.13.41 ity of 3.412.2.7 2.2.7.3.698 [place] .3.927615 084.8 MD [facility] 2023-08-12 2023-08-12 Anesthesia Vianca Campos 1.2.840.1 [id number] Univers 23:59:59 23:59:59 Event 57256.1.1 ity of 3.412.2.7 [place] .3.515367 MD [facility] 2023-08-12 2023-08-12 Anesthesia Vianca Campos 1.2.840.1 [id number] Univers 23:59:59 23:59:59 Event 38935.1.1 ity of 3.412.2.7 [place] .3.969492 MD [facility] 2023-08-12 2023-08-12 Case Blane, 1.2.840.1 [id number] Univers 00:00:00 00:00:00 Management Xiomara Chow 32208.1.1 ity of 3.412.2.7 [place] .3.399982 MD [facility] 2023-08-12 2023-08-12 Orders Darwin, 1.2.840.1 [id number] Univers 00:00:00 00:00:00 Only Vivian Mejia 89422.1.1 ity of 3.412.2.7 [place] .3.041598 MD [facility] 2023-08-12 2023-08-12 Case Blane, 1.2.840.1 [id number] Univers 00:00:00 00:00:00 Management Xiomara Chow 75369.1.1 ity of 3.412.2.7 [place] .3.035413 MD [facility] 2023-08-12 2023-08-12 Orders Darwin, 1.2.840.1 [id number] Univers 00:00:00 00:00:00 Only Vivian E 88902.1.1 ity of 3.412.2.7 [place] .3.605860 MD [facility] 2023-08-11 2023-08-11 [facility], 1.2.840.1 [id number] 1111 [id number] Univers 11:30:00 23:59:00 Encounter Lizet 21377.1.1 it y of 3.412.2.7 [place] .3.347615 MD Kong8 [facility] 2023-08-11 2023-08-11 [facility], 1.2.840.1 [id number] 1111 [id number] Univers 11:30:00 23:59:00 Encounter Lizet 35604.1.1 it y of 3.412.2.7 [place] .3.773796 MD [facility] 2023-08-11 2023-08-11 Follow-Up Marcella Agarwal 1.2.840.1 [id number] [id number] Univers 14:40:00 14:40:00 Balbina Li 75524.1.1 i ty of 3.412.2.7 [place] .3.637787 MD [facility] 2023-08-11 2023-08-11 Follow-Up Marcella Sherman 1.2.840.1 [id number] [id number] Univers 14:40:00 14:40:00 Balbina Li 90506.1.1 i ty of 3.412.2.7 [place] .3.225581 MD [facility] 2023-08-11 2023-08-11 Orders Koki Olvera 1.2.840.1 [id number] 11 [id number] Univers 00:00:00 00:00:00 Only 80294.1.1 ity of 3.412.2.7 [place] .3.717717 MD [facility] 2023-08-11 2023-08-11 Orders Balbina Li 1.2.840.1 [id number] 000 [id number] Univers 00:00:00 00:00:00 Only 53229.1.1 ity of 3.412.2.7 [place] .3.958530 MD [facility] 2023-08-11 2023-08-11 Orders Joshua, 1.2.840.1 [id number] Univers 00:00:00 00:00:00 Only John Olmstead 11732.1.1 ity of 3.412.2.7 [place] .3.889253 MD [facility] 2023-08-11 2023-08-11 Travel 1.2.840.1 1.2.291.614 1573 [id number] Univers 00:00:00 00:00:00 72766.1.1 350.1.13.41 ity of 3.412.2.7 2.[place].7.3.698 [place] .3.921084 084.8 MD [facility] 2023-08-11 2023-08-11 Koki Martin 1.2.840.1 [id number] 11 [id number] Univers 00:00:00 00:00:00 Only 64446.1.1 ity of 3.412.2.7 [place] .3.619893 MD [facility] 2023-08-11 2023-08-11 Orders Balbina Li 1.2.840.1 [id number] Univers 00:00:00 00:00:00 Only 19277.1.1 ity of 3.412.2.7 [place] .3.473327 MD [facility] 2023-08-11 2023-08-11 Orders Joshua, 1.2.840.1 [id number] Univers 00:00:00 00:00:00 Only John Olmstead 42863.1.1 ity of 3.412.2.7 [place] .3.343040 MD [facility] 2023-08-11 2023-08-11 [facility] 1.2.840.1 1.2.198.877 8157 [id number] Univers 00:00:00 00:00:00 98637.1.1 350.1.13.41 ity of 3.412.2.7 2.[place].7.3.698 [place] .3.959087 084.8 MD [facility] 2023-08-08 2023-08-08 [facility] 1.2.840.1 [id number] 11 [id number] Univers 00:00:00 00:00:00 Only 78565.1.1 ity of 3.412.2.7 [place] .3.922745 MD [facility] 2023-08-08 2023-08-08 [facility] 1.2.840.1 [id number] 11 [id number] Univers 00:00:00 00:00:00 Only 67414.1.1 ity of 3.412.2.7 [place] .3.512819 MD [facility] 2023-08-07 2023-08-07 Documentat Koki Olvera 1.2.840.1 [id number] Univers 00:00:00 00:00:00 ion 41210.1.1 ity of 3.412.2.7 [place] .3.575536 MD [facility] 2023-08-07 2023-08-07 Koki Martin 1.2.840.1 [id number] 11 [id number] Univers 00:00:00 00:00:00 Only 19018.1.1 ity of 3.412.2.7 [place] .3.712322 .8 [facility] 2023-08-07 2023-08-07 Documentat Koki Olvera 1.2.840.1 [id number] Univers 00:00:00 00:00:00 ion 68176.1.1 ity of 3.412.2.7 [place] .3.403754 .8 [facility] 2023-08-07 2023-08-07 Orders Koki Olvera 1.2.840.1 [id number] 11 [id number] Univers 00:00:00 00:00:00 Only 01592.1.1 ity of 3.412.2.7 [place] .3.955980 .8 [facility] 2023-08-06 2023-08-06 Orders Koki Olvera 1.2.840.1 [id number] 11 [id number] Univers 00:00:00 00:00:00 Only 37458.1.1 ity of 3.412.2.7 [place] .3.383182 .8 [facility] 2023-08-06 2023-08-06 Orders Belkys Olverady 1.2.840.1 [id number] 11 [id number] Univers 00:00:00 00:00:00 Only 99297.1.1 ity of 3.412.2.7 [place] .3.391148 .8 [facility] 2023-07-25 2023-08-05 [facility] Victorino Dawn 1.2.840.1 [id number] Univers 17:57:00 17:52:00 Encounter Ant Durant 27553.1.1 ity of [place] 3.412.2.7 [place] Calle3.643795 Rashel Portillo .8 [facility] 2023-07-25 2023-08-05 [facility] Victorino Dawn 1.2.840.1 [id number] Univers 17:57:00 17:52:00 Encounter Ant Durant 84239.1.1 ity of [place] 3.412.2.7 [place] .3.166822 Rashel Portillo .8 [facility] 2023-08-04 2023-08-04 [facility], 1.2.840.1 [id number] Univers 06:15:00 23:59:00 Encounter Sausan 49642.1.1 it y of 3.412.2.7 [place] .3.474966 .8 [facility] 2023-08-04 2023-08-04 [facility], 1.2.840.1 [id number] Univers 06:15:00 23:59:00 Encounter Sausan 17143.1.1 it y of 3.412.2.7 [place] .3.673148 .8 [facility] 2023-08-04 2023-08-04 Documentat Ligia, 1.2.840.1 [id number] 11 [id number] Univers 00:00:00 00:00:00 ion Brenna 52745.1.1 ity of 3.412.2.7 [place] .3.575656 .8 [facility] 2023-08-04 2023-08-04 Documentat Ligia, 1.2.840.1 [id number] 11 [id number] Univers 00:00:00 00:00:00 ion Brenna 19778.1.1 ity of 3.412.2.7 [place] .3.134962 .8 [facility] 2023-08-04 2023-08-04 Documentat Ligia, 1.2.840.1 [id number] 11 [id number] Univers 00:00:00 00:00:00 ion Brenna 44688.1.1 ity of 3.412.2.7 [place] .3.020110 MD Kong8 [facility] 2023-08-04 2023-08-04 Documentat Ligia, 1.2.840.1 [id number] 11 [id number] Univers 00:00:00 00:00:00 ion Brenna 53808.1.1 ity of 3.412.2.7 [place] .3.682948 .8 [facility] 2023-08-02 2023-08-02 Inpatient EL SILAS MDA MDA 1111 [id number] 20:12:00 20:50:31 , APOCAREY Salcedo derso n 2023-08-01 2023-08-01 Inpatient EL OSWALDO MDA MDA 1111 [id number] 08:16:23 08:44:52 , APOSTMELO Salcedo derso n 2023-08-01 2023-08-01 Documentat Strong, 1.2.840.1 [id number] 11 [id number] Univers 00:00:00 00:00:00 ion Brenna 54073.1.1 ity of 3.412.2.7 [place] .3.649694 .8 [facility] 2023-08-01 2023-08-01 Documentat Strong, 1.2.840.1 [id number] 11 [id number] Univers 00:00:00 00:00:00 ion Brenna 94857.1.1 ity of 3.412.2.7 [place] .3.521757 .8 [facility] 2023-08-01 2023-08-01 Documentat Strong, 1.2.840.1 [id number] 11 [id number] Univers 00:00:00 00:00:00 ion Brenna 23426.1.1 ity of 3.412.2.7 [place] .3.931645 .8 [facility] 2023-08-01 2023-08-01 Documentat Strong, 1.2.840.1 [id number] 11 [id number] Univers 00:00:00 00:00:00 ion Brenna 37432.1.1 ity of 3.412.2.7 [place] .3.272185 .8 [facility] 2023-07-31 2023-07-31 Inpatient EL SILAS MDA MDA [id number] [id number] 19:56:35 20:06:42 , YOLANDEMELO Salcedo derso n 2023-07-31 2023-07-31 Inpatient EL MARTHA, MDA MDA [id number] 25 13:24:37 13:52:51 ANASTACIA grant n 2023-07-31 2023-07-31 Inpatient EL SILAS MDA MDA 1111 [id number] 07:17:30 07:35:00 , JOE mendes n 2023-07-31 2023-07-31 Orders Koki Olvera 1.2.840.1 [id number] 11 [id number] Univers 00:00:00 00:00:00 Only 88287.1.1 ity of 3.412.2.7 [place] .3.532490 .8 [facility] 2023-07-31 2023-07-31 Orders Raúl, 1.2.840.1 [id number] Univers 00:00:00 00:00:00 Only Kalpana 62537.1.1 ity of 3.412.2.7 [place] .3.030597 .8 [facility] 2023-07-31 2023-07-31 Orders Koki Olvera 1.2.840.1 [id number] 11 [id number] Univers 00:00:00 00:00:00 Only 59583.1.1 ity of 3.412.2.7 [place] .3.148016 .8 [facility] 2023-07-31 2023-07-31 Orders Olsen, 1.2.840.1 [id number] Univers 00:00:00 00:00:00 Only Kalpana 65239.1.1 ity of 3.412.2.7 [place] .3.481509 .8 [facility] 2023-07-30 2023-07-30 Inpatient EL SILAS MDA MDA 1111 [id number] 17:15:07 17:52:10 , JOE antonioso n 2023-07-30 2023-07-30 Inpatient EUNICE CHEEK MDA MDA 1 [id number] 07:52:41 12:12:49 MORGAN RAWLSso n 2023-07-30 2023-07-30 Anesthesia Alba 1.2.840.1 [id number] [facility] 09:11:00 11:10:00 Event Eunice H. 70262.1.1 it y of 3.412.2.7 [place] .3.242503 MD Kong8 [facility] 2023-07-30 2023-07-30 Anesthesia Alba, 1.2.840.1 [id number] [id number] Univers 09:11:00 11:10:00 Event Eunice H. 11003.1.1 it y of 3.412.2.7 [place] .3.727252 MD Kong8 [facility] 2023-07-30 2023-07-30 Inpatient EL SILAS MDA MDA 1111 [id number] MD 05:05:09 05:14:53 , APOSTOLIA Susi mendes n 2023-07-30 2023-07-30 Orders Amadeo, 1.2.840.1 [id number] [id number] Univers 00:00:00 00:00:00 Only Jt S 26185.1.1 ity of 3.412.2.7 [place] .3.006632 MD Kong8 [facility] 2023-07-30 2023-07-30 Orders Amadeo, 1.2.840.1 [id number] Univers 00:00:00 00:00:00 Only Jt S 38966.1.1 ity of 3.412.2.7 [place] .3.899072 MD Kong8 [facility] 2023-07-28 2023-07-28 [facility], 1.2.840.1 [id number] 1111 [id number] Univers 10:13:38 23:59:00 Encounter Dariel Sifuentes 19448.1.1 ity of 3.412.2.7 [place] .3.903103 MD Kong8 [facility] 2023-07-28 2023-07-28 [facility], 1.2.840.1 [id number] 1111 [id number] Univers 10:13:38 23:59:00 Encounter Dariel Sifuentes 30730.1.1 ity of 3.412.2.7 [place] .3.076798 MD Kong8 [facility] 2023-07-28 2023-07-28 Anesthesia Analy Pringle 1.2.840.1 [id number] Univers 16:54:52 16:54:52 Event M 68413.1.1 ity of 3.412.2.7 [place] .3.229159 MD [facility] 2023-07-28 2023-07-28 Anesthesia Analy Pringle 1.2.840.1 [id number] Univers 16:54:52 16:54:52 Event M 56567.1.1 ity of 3.412.2.7 [place] .3.926875 MD [facility] 2023-07-28 2023-07-28 Outpatient DAYSI POLK MDA [facility] [id number] Ernst NAVARRO 10:05:10 15:04:23 MATTSUSHMA Martinez [facility] 2023-07-28 2023-07-28 Documentat Koki Olvera 1.2.840.1 [id number] Univers 00:00:00 00:00:00 ion 29328.1.1 ity of 3.412.2.7 [place] .3.751548 MD [facility] 2023-07-28 2023-07-28 Documentat Koki Olvera 1.2.840.1 [id number] Univers 00:00:00 00:00:00 ion 65214.1.1 ity of 3.412.2.7 [place] .3.517269 MD [facility] 2023-07-27 2023-07-27 Orders Barbra, 1.2.840.1 [id number] [id number] Univers 00:00:00 00:00:00 Only Gibran 35668.1.1 ity of 3.412.2.7 [place] .3.570844 MD [facility] 2023-07-27 2023-07-27 Telephone Cabrera 1.2.840.1 [id number] Univers 00:00:00 00:00:00 a, 48414.1.1 ity of [place].2.[place] .3.984169 MD .8 [facility] 2023-07-27 2023-07-27 Orders [facility], 1.2.840.1 [id number] [id number] Univers 00:00:00 00:00:00 Only Gibran 62459.1.1 ity of 3.412.2.7 [place] .3.678486 MD [facility] 2023-07-27 2023-07-27 Telephone Gibsonyalagunt 1.2.840.1 [id number] Univers 00:00:00 00:00:00 a, 44076.1.1 ity of [place].412.2.7 [place] .3.541884 MD [facility] 2023-07-26 2023-07-26 Travel 1.2.840.1 1.2.995.000 5485 [id number] Univers 00:00:00 00:00:00 68703.1.1 350.1.13.41 ity of 3.412.2.7 2.2.7.3.698 [place] .3.242461 084.8 MD [facility] 2023-07-26 2023-07-26 Travel 1.2.840.1 1.2.181.022 3381 [id number] Univers 00:00:00 00:00:00 04295.1.1 350.1.13.41 ity of 3.412.2.7 2.2.7.3.698 [place] .3.566580 084.8 MD [facility] 2023-07-25 2023-07-25 Telemedici EL Gibsonyaleldonunt 1.2.840.1 [id number] Univers 11:20:00 15:14:47 ne a, 07158.1.1 ity of [place]2.[place] .3.199992 MD [facility] 2023-07-25 2023-07-25 Telemedici Gibsonyalagunt 1.2.840.1 [id number] Univers 11:20:00 15:14:47 ne a, 61940.1.1 ity [place]2.7 [place] .3.190806 MD [facility] 2023-07-25 2023-07-25 [facility], 1.2.840.1 [id number] Univers 00:00:00 00:00:00 Lizet 46722.1.1 ity of 3.412.2.7 [place] .3.346269 MD [facility]8 [facility] 2023-07-25 2023-07-25 [facility], 1.2.840.1 [id number] Univers 00:00:00 00:00:00 Only Lizet 39425.1.1 ity of 3.412.2.7 [place] .3.547969 MD Kong8 [facility] 2023-07-25 2023-07-25 [facility], 1.2.840.1 [id number] Univers 00:00:00 00:00:00 Lizet 06412.1.1 ity of 3.412.2.7 [place] .3.266971 MD Kong8 [facility] 2023-07-25 2023-07-25 [facility], 1.2.840.1 [id number] Univers 00:00:00 00:00:00 Only Lizet 23593.1.1 ity of 3.412.2.7 [place] .3.647423 MD Kong8 [facility] 2023-07-24 2023-07-24 [facility] 1.2.840.1 [id number] Univers 10:15:00 23:59:00 Encounter Shirley Ruiz 46043.1.1 ity of 3.412.2.7 [place] .3.391372 MD [facility] 2023-07-24 2023-07-24 [facility] 1.2.840.1 [id number] Univers 10:15:00 23:59:00 Encounter Shirley Ruiz 47354.1.1 ity of 3.412.2.7 [place] .3.794149 MD Kong8 [facility] 2023-07-24 2023-07-24 Anesthesia Shirley Ruiz 1.2.840.1 10 [id number] Univers 14:56:00 16:01:00 Event Koki Whitney 15486.1.1 ity of 3.412.2.7 [place] .3.410181 MD Kong8 [facility] 2023-07-24 2023-07-24 Anesthesia Shirley Ruiz 1.2.840.1 10 [id number] Univers 14:56:00 16:01:00 Event Koki Whitney 81758.1.1 ity of 3.412.2.7 [place] .3.580776 MD Kong8 [facility] 2023-07-24 2023-07-24 Follow-Up Jennifer Wilkinson 1.2.840.1 [id number] Univers 10:20:00 10:40:00 Savannah Briceno 25044.1.1 ity of 3.412.2.7 [place] .3.338328 MD Kong8 [facility] 2023-07-24 2023-07-24 Follow-Up Jennifer West 1.2.840.1 [id number] Univers 10:20:00 10:40:00 Savannah Briceno 02763.1.1 ity of 3.412.2.7 [place] .3.147762 MD Kong8 [facility] 2023-07-24 2023-07-24 Outpatient DAYSI LARA MDA MDA [id number] 4-20 10:15:00 10:15:00 LIZET [id number] [facility] 2023-07-24 2023-07-24 Hospital DYASI Dewey, 1.2.840.1 [id number] Univers 06:30:00 10:14:00 Encounter Josh 86006.1.1 it y of 3.412.2.7 [place] .3.055740 MD [facility] 2023-07-24 2023-07-24 Hospital [place], 1.2.840.1 [id number] Univers 06:30:00 10:14:00 Encounter Josh 50202.1.1 it y of 3.412.2.7 [place] .3.166080 MD Kong8 [facility] 2023-07-24 2023-07-24 Travel 1.2.840.1 1.2.317.985 [id number] Univers 00:00:00 00:00:00 37634.1.1 350.1.13.41 ity of 3.412.2.7 2.2.7.3.698 [place] .3.904578 084.8 MD [facility] 2023-07-24 2023-07-24 Documentat Koki Olvera 1.2.840.1 [id number] Univers 00:00:00 00:00:00 ion 02434.1.1 ity of 3.412.2.7 [place] .3.721659 MD [facility] 2023-07-24 2023-07-24 Travel 1.2.840.1 1.2.241.004 [id number] Univers 00:00:00 00:00:00 29484.1.1 350.1.13.41 ity of 3.412.2.7 2.2.7.3.698 [place] .3.583345 084.8 MD [facility] 2023-07-24 2023-07-24 Documentat Koki Olvera 1.2.840.1 [id number] Univers 00:00:00 00:00:00 ion 22580.1.1 ity of 3.412.2.7 [place] .3.852810 MD [facility] 2023-07-23 2023-07-23 [facility] Juliann, 1.2.840.1 [id number] Univers 23:59:59 23:59:59 Event Naina 44545.1.1 ity of 3.412.2.7 [place] .3.213650 MD [facility] 2023-07-23 2023-07-23 Rashard Rivera, 1.2.840.1 [id number] Univers 23:59:59 23:59:59 Event Naina 56863.1.1 ity of 3.412.2.7 [place] .3.347418 MD [facility] 2023-07-23 2023-07-23 POALEX Schultz, 1.2.840.1 [id number] 1110 [id number] Univers 12:30:00 13:00:00 Appointmen Sausan 71536.1.1 i ty of ts 3.412.2.7 [place] .3.459142 MD [facility] 2023-07-23 2023-07-23 POALEX Koryblessingarb, 1.2.840.1 [id number] 1110 [id number] Univers 12:30:00 13:00:00 Appointmen Sausan 39352.1.1 i ty of ts 3.412.2.7 [place] .3.072520 MD [facility] 2023-07-23 2023-07-23 [facility], 1.2.840.1 [id number] Univers 00:00:00 00:00:00 Management Serg B 09354.1.1 ity of 3.412.2.7 [place] .3.394370 MD [facility] 2023-07-23 2023-07-23 [facility], 1.2.840.1 [id number] 78315 [id number] Univers 00:00:00 00:00:00 Management Serg B 27423.1.1 ity of 3.412.2.7 [place] .3.367974 MD [facility] 2023-07-22 2023-07-22 Kayode Martinez, 1.2.840.1 [id number] Univers 00:00:00 00:00:00 Sharon A 11218.1.1 ity of 3.412.2.7 [place] .3.955356Belinda [facility] 2023-07-22 2023-07-22 Koki Martin 1.2.840.1 [id number] 11 [id number] Univers 00:00:00 00:00:00 Only 53130.1.1 ity of 3.412.2.7 [place] .3.026765 MD [facility] 2023-07-22 2023-07-22 Karolina Cason 1.2.840.1 [id number] 1110 [id number] Univers 00:00:00 00:00:00 Faydria 95982.1.1 ity of 3.412.2.7 [place] .3.979885 MD [facility] 2023-07-22 2023-07-22 Oumar Lara 1.2.840.1 [id number] Univers 00:00:00 00:00:00 Only Lizet 16370.1.1 ity of 3.412.2.7 [place] .3.946108 MD [facility] 2023-07-22 2023-07-22 Kayode Martinez 1.2.840.1 [id number] Univers 00:00:00 00:00:00 Sharon A 86071.1.1 ity of 3.412.2.7 [place] .3.765073 MD [facility] 2023-07-22 2023-07-22 Koki Martin 1.2.840.1 [id number] 11 [id number] Univers 00:00:00 00:00:00 Only 35561.1.1 ity of 3.412.2.7 [place] .3.417765 MD [facility] 2023-07-22 2023-07-22 Karolina Cason 1.2.840.1 [id number] 1110 [id number] Univers 00:00:00 00:00:00 Faannetteria 92885.1.1 ity of 3.412.2.7 [place] .3.804509 MD [facility] 2023-07-22 2023-07-22 Oumar Lara 1.2.840.1 [id number] Univers 00:00:00 00:00:00 Only Lizet 01552.1.1 ity of 3.412.2.7 [place] .3.503385 MD Maira [facility] 2023-07-21 2023-07-21 Emergency UR Fraire, 1.2.840.1 [id number] 1110 [id number] Univers 21:32:00 23:08:00 Jairo 53582.1.1 ity of 3.412.2.7 [place] .3.707760 MD [facility] 2023-07-21 2023-07-21 Emergency Fraire, 1.2.840.1 [id number] 1110 [id number] Univers 21:32:00 23:08:00 Jairo 15241.1.1 ity of 3.412.2.7 [place] .3.207158 MD [facility] 2023-07-21 2023-07-21 Travel 1.2.840.1 1.2.369.724 3317 [id number] Univers 00:00:00 00:00:00 48625.1.1 350.1.13.41 ity of 3.412.2.7 [place].3.698 [place] 084.8 MD [facility] 2023-07-21 2023-07-21 Travel 1.2.840.1 1.2.543.060 5491 [id number] Univers 00:00:00 00:00:00 63557.1.1 350.1.13.41 ity of 3.412.2.7 2.[place].7.3.698 [place]3.949[place] 084.8 MD [facility] 2023-07-18 2023-07-18 Outpatient DAYSI WEST MDA MDA [id number] 271 09:22:03 09:22:03 JENNIFER gibbs 2023-07-18 2023-07-18 Koki Martin 1.2.840.1 [id number] 11 [id number] Univers 00:00:00 00:00:00 Only 48761.1.1 ity of 3.412.2.7 [place] .3.112269 MD [facility] 2023-07-18 2023-07-18 Carols Rodriguez 1.2.840.1 [id number] 11 [id number] Univers 00:00:00 00:00:00 70587.1.1 ity of 3.412.2.7 [place] .3.984138 MD [facility] 2023-07-18 2023-07-18 Oumar Koki Olvera 1.2.840.1 [id number] 11 [id number] Univers 00:00:00 00:00:00 Only 59649.1.1 ity of 3.412.2.7 [place] .3.039097 MD [facility] 2023-07-18 2023-07-18 Carlos Rodriguez 1.2.840.1 [id number] 11 [id number] Univers 00:00:00 00:00:00 67057.1.1 ity of 3.412.2.7 [place] .3.988856 MD [facility] 2023-07-17 2023-07-17 [facility] Alirezanamratachata Naz 1.2.840.1 [id number] Univers 08:00:00 08:00:00 Encounter Stefania Bal 77512.1.1 ity of 3.412.2.7 [place] .3.068630 MD [facility] 2023-07-17 2023-07-17 [facility] 1.2.840.1 [id number] Univers 08:00:00 08:00:00 Encounter Jennifer Childs 11105.1.1 ity of 3.412.2.7 [place] .3.459837 MD [facility] 2023-07-17 2023-07-17 [facility] Alirezanamratachata Naz 1.2.840.1 [id number] [id number] [id number] Univers 08:00:00 08:00:00 Encounter Stefania Bal 96547.1.1 ity of 3.412.2.7 [place] .3.472998 MD [facility] 2023-07-17 2023-07-17 [facility], 1.2.840.1 [id number] Univers 08:00:00 08:00:00 Encounter Jeninfer Childs 78392.1.1 ity of 3.412.2.7 [place] .3.808272 MD [facility] 2023-07-17 2023-07-17 [facility], 1.2.840.1 [id number] 1 [id number] Univers 01:02:34 01:02:34 Event Catrina Jim 60982.1.1 ity of 3.412.2.7 [place] .3.762760 MD [facility] 2023-07-17 2023-07-17 [facility], 1.2.840.1 [id number] 1 [id number] Univers 01:02:34 01:02:34 Event Catrina Jim 71653.1.1 ity of 3.412.2.7 [place] .3.708088 MD [facility] 2023-07-17 2023-07-17 Koki Martin 1.2.840.1 [id number] 11 [id number] Univers 00:00:00 00:00:00 Only 57187.1.1 ity of 3.412.2.7 [place] .3.935356 MD [facility] 2023-07-17 2023-07-17 Travel 1.2.840.1 1.2.540.157 0420 [id number] Univers 00:00:00 00:00:00 21395.1.1 350.1.13.41 ity of 3.412.2.7 [place]7.3.698 [place].3703[place] 084.8 MD [facility] 2023-07-17 2023-07-17 Koki Martin 1.2.840.1 [id number] 11 [id number] Univers 00:00:00 00:00:00 Only 70586.1.1 ity of 3.412.2.7 [place] .3.752689 MD [facility] 2023-07-17 2023-07-17 Travel 1.2.840.1 1.2.888.704 3019 [id number] Univers 00:00:00 00:00:00 76962.1.1 350.1.13.41 ity of 3.412.2.7 2.[place].7.3.698 [place]3.202627 084.8 .8 [facility] 2023-07-16 2023-07-16 [facility] Juan [place], 1.2.840.1 [id number] Univers 06:45:00 23:59:00 Encounter Jennifer Yosth 77079.1.1 ity of 3.412.2.7 [place] .3.521908 MD [facility] 2023-07-16 2023-07-16 [facility], 1.2.840.1 [id number] Univers 06:45:00 23:59:00 Encounter Jennifer Yosth 24823.1.1 ity of 3.412.2.7 [place] .3.328143 MD [facility] 2023-07-16 2023-07-16 Telemedici Aboarb, 1.2.840.1 [id number] 1 [id number] Univers 15:20:00 15:40:00 ne usasai 09078.1.1 ity of 3.412.2.7 [place] .3.223226 MD [facility] 2023-07-16 2023-07-16 Telemedici Aboarb, 1.2.840.1 [id number] 1 [id number] Univers 15:20:00 15:40:00 ne Sausan 95945.1.1 ity of 3.412.2.7 [place] .3.171252 MD [facility] 2023-07-16 2023-07-16 Follow-Up DAYSI Dewey, 1.2.840.1 [id number] 1110 [id number] Univers 11:30:00 14:17:26 Josh 43512.1.1 ity of 3.412.2.7 [place] .3.145003 MD [facility] 2023-07-16 2023-07-16 Follow-Up Yap, 1.2.840.1 [id number] 1110 [id number] Univers 11:30:00 14:17:26 Josh 27408.1.1 ity of 3.412.2.7 [place] .3.686074 MD [facility] 2023-07-16 2023-07-16 POEM Shed, 1.2.840.1 [id number] Univers 10:30:00 11:00:00 Appointmen Vivian E 72890.1.1 ity of ts 3.412.2.7 [place] .3.426776 MD [facility] 2023-07-16 2023-07-16 POEM Shed, 1.2.840.1 [id number] Univers 10:30:00 11:00:00 Appointmen Vivian E 31617.1.1 ity of ts 3.412.2.7 [place] .3.348540 MD [facility] 2023-07-16 2023-07-16 Orders Yap, 1.2.840.1 [id number] Univers 00:00:00 00:00:00 Only Josh 25601.1.1 ity of 3.412.2.7 [place] .3.261258 MD [facility] 2023-07-16 2023-07-16 Orders Joshua, 1.2.840.1 [id number] Univers 00:00:00 00:00:00 Only John H 45134.1.1 ity of 3.412.2.7 [place] .3.507359 MD [facility] 2023-07-16 2023-07-16 Travel 1.2.840.1 1.2.454.838 3278 [id number] Univers 00:00:00 00:00:00 90330.1.1 350.1.13.41 ity of 3.412.2.7 2.[place].7.3.698 [place] .3.041927 084.8 MD [facility] 2023-07-16 2023-07-16 Orders Yap, 1.2.840.1 [id number] Univers 00:00:00 00:00:00 Only Josh 33123.1.1 ity of 3.412.2.7 [place] .3.922558 MD [facility] 2023-07-16 2023-07-16 Orders Joshua, 1.2.840.1 [id number] Univers 00:00:00 00:00:00 Only John Olmstead 93824.1.1 ity of 3.412.2.7 [place] .3.532753 MD [facility] 2023-07-16 2023-07-16 Travel 1.2.840.1 1.2.442.052 9582 [id number] Univers 00:00:00 00:00:00 29172.1.1 350.1.13.41 ity of 3.412.2.7 2.2.7.3.698 [place] .3.008681 084.8 MD [facility] 2023-07-15 2023-07-15 [facility] [place] Jennifer Naz 1.2.840.1 07866 [id number] Univers 12:54:47 23:59:00 Encounter Ranjan Fraser 39197.1.1 ity of 3.412.2.7 [place] .3.141781 MD [facility] 2023-07-15 2023-07-15 Outpatient [facility] [id number] -[id number] 12:54:47 23:59:00 JENNIFER 155879 [facility] 2023-07-15 2023-07-15 [facility] 1.2.840.1 [id number] [id number] Univers 12:54:47 23:59:00 Encounter Ranjan Fraser 50311.1.1 ity of 3.412.2.7 [place] .3.842101 MD [facility] 2023-07-15 2023-07-15 Oumar Franklinarb, 1.2.840.1 [id number] 1110 [id number] Univers 00:00:00 00:00:00 Only Marcello 22555.1.1 ity of 3.412.2.7 [place] .3.940193 MD [facility] 2023-07-15 2023-07-15 Ester Panda 1.2.840.1 [id number] Univers 00:00:00 00:00:00 Only 54974.1.1 ity of 3.412.2.7 [place] .3.484167 MD [facility] 2023-07-15 2023-07-15 Koki Martin 1.2.840.1 [id number] 11 [id number] Univers 00:00:00 00:00:00 Only 75916.1.1 ity of 3.412.2.7 [place] .3.533318 MD [facility] 2023-07-15 2023-07-15 Travel 1.2.840.1 1.2.149.994 9960 [id number] Univers 00:00:00 00:00:00 82010.1.1 350.1.13.41 ity of 3.412.2.7 2.2.7.3.698 [place] .3.545565 084.8 MD [facility] 2023-07-15 2023-07-15 Ester Panda 1.2.840.1 [id number] [id number] Univers 00:00:00 00:00:00 Only 53588.1.1 ity of 3.412.2.7 [place] .3.519400 MD [facility] 2023-07-15 2023-07-15 Koki Martin 1.2.840.1 [id number] 11 [id number] Univers 00:00:00 00:00:00 Only 32270.1.1 ity of 3.412.2.7 [place] .3.491734 MD [facility] 2023-07-15 2023-07-15 Travel 1.2.840.1 1.2.987.362 7034 [id number] Univers 00:00:00 00:00:00 37850.1.1 350.1.13.41 ity of 3.412.2.7 2.2.7.3.698 [place] .3.354600 084.8 MD [facility] 2023-07-15 2023-07-15 [facility], 1.2.840.1 [id number] 1110 [id number] Univers 00:00:00 00:00:00 Only Marcello 05257.1.1 ity of 3.412.2.7 [place] .3.724860 MD [facility] 2023-07-11 2023-07-11 [facility] 1.2.840.1 [id number] Univers 14:58:22 23:59:00 Encounter Nataly King 08145.1.1 ity of 3.412.2.7 [place] .3.047489 MD [facility] 2023-07-11 2023-07-11 [facility] 1.2.840.1 [id number] Univers 14:58:22 23:59:00 Encounter Nataly King 12302.1.1 ity of 3.412.2.7 [place] .3.567749 MD [facility] 2023-07-11 2023-07-11 [facility] 1.2.840.1 [id number] Univers 09:30:00 14:57:00 Encounter Jennifer Childs 84941.1.1 ity of 3.412.2.7 [place] .3.410233 MD [facility] 2023-07-11 2023-07-11 [facility] 1.2.840.1 [id number] Univers 09:30:00 14:57:00 Encounter Orenamrataa Naz 62909.1.1 ity of 3.412.2.7 [place] .3.044246 MD [facility] 2023-07-11 2023-07-11 [facility], 1.2.840.1 [id number] 1110 [id number] Univers 11:45:00 14:10:00 Procedure Orelia Nza 97594.1.1 ity of 3.412.2.7 [place] .3.159574 MD [facility] 2023-07-11 2023-07-11 [facility], 1.2.840.1 [id number] 1110 [id number] Univers 11:45:00 14:10:00 Procedure Orelia Naz 37536.1.1 ity of 3.412.2.7 [place] .3.710277 MD [facility] 2023-07-11 2023-07-11 [facility], 1.2.840.1 [id number] 1110 [id number] Univers 11:00:00 11:30:00 Procedure Orelia Naz 93223.1.1 ity of 3.412.2.7 [place] .3.880413 MD [facility] 2023-07-11 2023-07-11 [facility], 1.2.840.1 [id number] 1110 [id number] Univers 11:00:00 11:30:00 Procedure Orelia Naz 34180.1.1 ity of 3.412.2.7 [place] .3Dilan577923 MD [facility] 2023-07-11 2023-07-11 [facility], 1.2.840.1 [id number] 11991 [id number] Univers 09:15:00 09:29:00 Encounter Orelia Naz 08018.1.1 ity of 3.412.2.7 [place] .3.840465 MD [facility] 2023-07-11 2023-07-11 [facility], 1.2.840.1 [id number] Univers 09:15:00 09:29:00 Encounter Orelia Naz 92550.1.1 ity of 3.412.2.7 [place] .3.587136 MD .8 [facility] 2023-07-11 2023-07-[address] [facility], 1.2.840.1 [id number] Univers 09:00:00 09:14:00 Encounter Alirezalichata Naz 33281.1.1 ity of 3.412.2.7 [place] .3.882431 MD [facility] 2023-07-11 2023-07-11 [facility], 1.2.840.1 [id number] [id number] Univers 09:00:00 09:14:00 Encounter Orelia Naz 49108.1.1 ity of 3.412.2.7 [place] .3.129393 MD [facility] 2023-07-11 2023-07-[address] [facility], 1.2.840.1 [id number] 1110 [id number] Univers 08:30:00 09:00:00 Procedure Orelia Naz 76708.1.1 ity of 3.412.2.7 [place] .3.265957 MD [facility] 2023-07-11 2023-07-11 [facility], 1.2.840.1 [id number] 1110 [id number] Univers 08:30:00 09:00:00 Procedure Orelia Naz 28146.1.1 ity of 3.412.2.7 [place] .3.121358 MD [facility] 2023-07-11 2023-07-11 Nataly Barba 1.2.840.1 [id number] 11 [id number] Univers 00:00:00 00:00:00 Only M 10501.1.1 ity of 3.412.2.7 [place] .3.388687 MD [facility] 2023-07-11 2023-07-11 Travel 1.2.840.1 1.2.389.576 5342 [id number] Univers 00:00:00 00:00:00 73028.1.1 350.1.13.41 ity of 3.412.2.7 2.2.7.3.698 [place] .3.393501 084Dilan8 MD [facility] 2023-07-11 2023-07-11 Oumar Nataly King 1.2.840.1 [id number] 11 [id number] Univers 00:00:00 00:00:00 Only M 87497.1.1 ity of 3.412.2.7 [place] .3.895749 MD [facility] 2023-07-11 2023-07-11 [facility] 1.2.840.1 1.2.750.758 [id number] [id number] [facility] 00:00:00 00:00:00 78369.1.1 350.1.13.41 ity of 3.412.2.7 2.2.7.3.698 [place] .3.426103 084.8 MD [facility] 2023-07-10 2023-07-10 Edis Chauhan 1.2.840.1 [id number] [id number] Univers 00:00:00 00:00:00 Only Ashanti 14324.1.1 ity of 3.412.2.7 [place] .3.215505 MD [facility] 2023-07-10 2023-07-10 Edis Chauhan 1.2.840.1 [id number] [id number] Univers 00:00:00 00:00:00 Only Ashanti 75365.1.1 ity of 3.412.2.7 [place] .3.257740 MD [facility] 2023-07-09 2023-07-09 Edis Chauhan 1.2.840.1 [id number] 68630 [id number] Univers 00:00:00 00:00:00 Only Ashanti 70011.1.1 ity of 3.412.2.7 [place] .3.082466 MD [facility] 2023-07-09 2023-07-09 Edis Chauhan 1.2.840.1 [id number] [id number] Univers 00:00:00 00:00:00 Only Ashanti 14617.1.1 ity of 3.412.2.7 [place] .3.134760 MD [facility] 2023-07-08 2023-07-08 [facility], 1.2.840.1 [id number] [id number] Univers 13:00:00 23:59:00 Encounter Laura 67080.1.1 it y of 3.412.2.7 [place] .3.693410 MD [facility] 2023-07-08 2023-07-08 [facility], 1.2.840.1 [id number] Univers 13:00:00 23:59:00 Encounter Laura 67484.1.1 it y of 3.412.2.7 [place] .3Dilan973141 MD [facility] 2023-07-08 2023-07-08 Anc[facility], 1.2.840.1 [id number] 1110 [id number] Univers 13:45:00 14:00:00 Procedure Radha N 73489.1.1 it y of 3.412.2.7 [place] .3.259269 MD [facility] 2023-07-08 2023-07-08 [facility], 1.2.840.1 [id number] 1110 [id number] Univers 13:45:00 14:00:00 Procedure Radha N 44726.1.1 it y of 3.412.2.7 [place] .3Dilan119906 MD [facility] 2023-07-08 2023-07-[address] [facility], 1.2.840.1 [id number] Univers 09:49:49 12:59:00 Encounter Jincy A 67836.1.1 it y of 3.412.2.7 [place] .3.571137 MD [facility] 2023-07-08 2023-07-08 [facility] 1.2.840.1 [id number] Univers 09:49:49 12:59:00 Encounter Jincy A 17906.1.1 it y of 3.412.2.7 [place] .3Dilan739509 MD [facility] 2023-07-08 2023-07-08 Follow-Up Jennifer Wilkinson 1.2.840.1 [id number] Univers 11:40:00 12:00:00 Savannah Briceno 59150.1.1 ity of 3.412.2.7 [place] .3.905295 MD [facility] 2023-07-08 2023-07-08 Follow-Up Jennifer West 1.2.840.1 [id number] 32981 [id number] Univers 11:40:00 12:00:00 Savannah Briceno 59880.1.1 ity of 3.412.2.7 [place] .3.781655 MD Kong[facility] 2023-07-08 2023-07-08 Follow-Up DAYSI Lombardo, 1.2.840.1 [id number] 1110 [id number] Univers 10:00:00 10:17:21 Radha N 44820.1.1 ity of 3.412.2.7 [place] .3.327475 MD Kong[facility] 2023-07-08 2023-07-08 Follow-Up [facility], 1.2.840.1 [id number] 1110 [id number] Univers 10:00:00 10:17:21 Radha N 92012.1.1 ity of 3.412.2.7 [place] .3.678966 MD Kong[facility] 2023-07-08 2023-07-[address] [facility], 1.2.840.1 [id number] Univers 09:00:00 09:48:00 Encounter Cookie Brizuela 35028.1.1 it y of 3.412.2.7 [place] .3.052398 MD [facility] 2023-07-08 2023-07-08 Outpatient [facility] [id number] -20 09:00:00 09:48:00 COOKIE [id number] Leandro [facility] 2023-07-08 2023-07-08 [facility] 1.2.840.1 [id number] Univers 09:00:00 09:48:00 Encounter Jincy A 01825.1.1 it y of 3.412.2.7 [place] .3.339741 MD [facility] 2023-07-08 2023-07-08 [facility], 1.2.840.1 [id number] 67835 [id number] Univers 06:45:00 08:59:00 Encounter Jennifer Childs 17602.1.1 ity of 3.412.2.7 [place] .3.336044 MD [facility] 2023-07-08 2023-07-08 [facility], 1.2.840.1 [id number] [id number] Univers 06:45:00 08:59:00 Encounter Jennifer Childs 83251.1.1 ity of 3.412.2.7 [place] .3.985808 MD [facility] 2023-07-08 2023-07-08 Ancillary [facility] [place], 1.2.840.1 [id number] 1110 [id number] Univers 08:00:00 08:15:00 Procedure Jincy A 74516.1.1 it y of 3.412.2.7 [place] .3.525369 MD [facility] 2023-07-08 2023-07-08 Ancillary [place], 1.2.840.1 [id number] 1110 [id number] Univers 08:00:00 08:15:00 Procedure Jincy A 01347.1.1 it y of 3.412.2.7 [place] .3.784553 MD [facility] 2023-07-08 2023-07-08 Travel 1.2.840.1 1.2.195.522 1855 [id number] Univers 00:00:00 00:00:00 33297.1.1 350.1.13.41 ity of 3.412.2.7 2.[place]7.3.698 [place] .3.953573 084.8 MD [facility] 2023-07-08 2023-07-08 Travel 1.2.840.1 1.2.167.847 [id number] Univers 00:00:00 00:00:00 75847.1.1 350.1.13.41 ity of 3.412.2.[place].3.698 [place] .3.179929 084.8 MD [facility] 2023-07-07 2023-07-07 Kayode Rees 1.2.840.1 [id number] Univers 00:00:00 00:00:00 a, 61006.1.1 it[place] .3.189206 MD [facility] 2023-07-07 2023-07-07 Kayode Martinez 1.2.840.1 [id number] Univers 00:00:00 00:00:00 Sharon A 93133.1.1 ity of 3.412.2.7 [place] .3.055610 MD [facility] 2023-07-07 2023-07-07 Oumar Lombardo 1.2.840.1 [id number] Univers 00:00:00 00:00:00 Only Radha N 76798.1.1 ity of 3.412.2.7 [place] .3.965638 MD [facility] 2023-07-07 2023-07-07 Kayode Rees 1.2.840.1 [id number] [facility] 00:00:00 00:00:00 a, 30890.1.1 it[place] .3.664103 MD [facility] 2023-07-07 2023-07-07 Kayode Martinez 1.2.840.1 [id number] Univers 00:00:00 00:00:00 Sharon A 60281.1.1 ity of 3.412.2.7 [place] .3.423372 MD [facility] 2023-07-07 2023-07-07 Oumar Lombardo 1.2.840.1 [id number] Univers 00:00:00 00:00:00 Only Radha N 07204.1.1 ity of 3.412.2.7 [place] .3.027067 MD [facility] 2023-07-03 2023-07-03 Education Rios, 1.2.840.1 [id number] Univers 00:00:00 00:00:00 Eri Randhawa 13008.1.1 i ty of 3.412.2.7 [place] .3.794740 MD [facility] 2023-07-03 2023-07-03 Koki Martin 1.2.840.1 [id number] Univers 00:00:00 00:00:00 Only 87843.1.1 ity of 3.412.2.7 [place] .3.707011 MD [facility] 2023-07-03 2023-07-03 Orders Shed, 1.2.840.1 [id number] Univers 00:00:00 00:00:00 Only Vivian Mejia 75050.1.1 ity of 3.412.2.7 [place] .3.551266 MD [facility] 2023-07-03 2023-07-03 Education Rios, 1.2.840.1 [id number] Univers 00:00:00 00:00:00 Eri Randhawa 98111.1.1 i ty of 3.412.2.7 [place] .3.060237 MD [facility] 2023-07-03 2023-07-03 Koki Martin 1.2.840.1 [id number] 11 [id number] Univers 00:00:00 00:00:00 Only 79152.1.1 ity of 3.412.2.7 [place] .3.420941 MD [facility] 2023-07-03 2023-07-03 Orders Shed, 1.2.840.1 [id number] Univers 00:00:00 00:00:00 Only Vivian Mejia 54175.1.1 ity of 3.412.2.7 [place] .3.475000 MD [facility] 2023-07-02 2023-07-02 Orders Koki Olvera 1.2.840.1 [id number] 11 [id number] Univers 00:00:00 00:00:00 Only 74292.1.1 ity of 3.412.2.7 [place] .3.905834 MD [facility] 2023-07-02 2023-07-02 Orders Cabrera 1.2.840.1 [id number] Univers 00:00:00 00:00:00 Only a, 74184.1.1 it[place] .3.372021 MD [facility] 2023-07-02 2023-07-02 Orders Asher 1.2.840.1 [id number] Univers 00:00:00 00:00:00 Only Cookie Chata 80244.1.1 ity of 3.412.2.7 [place] .3.942541 MD [facility] 2023-07-02 2023-07-02 Orders Juan, 1.2.840.1 [id number] Univers 00:00:00 00:00:00 Only Sharon Brizuela 45985.1.1 ity of 3.412.2.7 [place] .3.595006 MD [facility] 2023-07-02 2023-07-02 Orders Saleem, 1.2.840.1 [id number] Univers 00:00:00 00:00:00 Only Nancie 56382.1.1 ity of 3.412.2.7 [place] .3.864253 MD [facility] 2023-07-02 2023-07-02 Orders Koki Olvera 1.2.840.1 [id number] 11 [id number] Univers 00:00:00 00:00:00 Only 65314.1.1 ity of 3.412.2.7 [place] .3.484124 MD [facility] [facility] 2023-07-02 2023-07-02 Orders Koyyalagunt 1.2.840.1 [id number] 11 [id number] Univers 00:00:00 00:00:00 Only a, 44685.1.1 ity of [place] .3.120790 MD [facility] 2023-07-02 2023-07-02 Oumar Sterling, 1.2.840.1 [id number] Univers 00:00:00 00:00:00 Only Cookie A 66342.1.1 ity of 3.412.2.7 [place] .3.502428 MD [facility] 2023-07-02 2023-07-02 Oumar Martinez, 1.2.840.1 [id number] Univers 00:00:00 00:00:00 Only Sharon A 15096.1.1 ity of 3.412.2.7 [place] .3.717593 MD [facility] 2023-07-02 2023-07-02 Orders Saleem, 1.2.840.1 [id number] Univers 00:00:00 00:00:00 Only Nancie 79753.1.1 ity of 3.412.2.7 [place] .3.009181 MD [facility] 2023-07-01 2023-07-01 Telemedici Abouharb, 1.2.840.1 [id number] 1 [id number] Univers 15:00:00 15:20:00 ne Sausasai 81071.1.1 ity of 3.412.2.7 [place] .3.602685 MD [facility] 2023-07-01 2023-07-01 Telemedici Abouharb, 1.2.840.1 [id number] 1 [id number] Univers 15:00:00 15:20:00 ne Sausan 73121.1.1 ity of 3.412.2.7 [place] .3.770930 MD [facility] 2023-07-01 2023-07-01 Oumar Sterling, 1.2.840.1 [id number] Univers 00:00:00 00:00:00 Only Cookie A 75148.1.1 ity of 3.412.2.7 [place] .3.143103 MD [facility] 2023-07-01 2023-07-01 Oumar Sterling 1.2.840.1 [id number] Univers 00:00:00 00:00:00 Only Cookie A 95217.1.1 ity of 3.412.2.7 [place] .3.900596 MD [facility] 2023-06-30 2023-06-30 Documentat Koki Olvera 1.2.840.1 [id number] Univers 00:00:00 00:00:00 ion 14074.1.1 ity of 3.412.2.7 [place] .3.483471 MD [facility] 2023-06-30 2023-06-30 Koki Martin 1.2.840.1 [id number] 11 [id number] Univers 00:00:00 00:00:00 Only 40991.1.1 ity of 3.412.2.7 [place] .3.651517 MD [facility] 2023-06-30 2023-06-30 Documentat Koki Olvera 1.2.840.1 [id number] Univers 00:00:00 00:00:00 ion 88110.1.1 ity of 3.412.2.7 [place] .3.603703 MD [facility] 2023-06-30 2023-06-30 Koki Martin 1.2.840.1 [id number] 11 [id number] Univers 00:00:00 00:00:00 Only 89651.1.1 ity of 3.412.2.7 [place] .3.821929 MD [facility] 2023-06-26 2023-06-27 Emergency ER Sarath Joshi 1.2.840.1 101 [id number] Univers 19:56:00 21:31:00 Matilda Herron 64352.1.1 ity of Essie Cardona 3.412.2.7 [place] .3.061531 MD [facility] 2023-06-26 2023-06-27 Outpatient ER JAMIE CARDONA Emergency [id number] 74-20 MD 19:56:00 21:31:00 MARSHALL-ANUSHKA 620287 Juan [facility] 2023-06-26 2023-06-27 Emergency aSrath JoshiDilan 1.2.840.1 101 [id number] Univers 19:56:00 21:31:00 Matilda Herron 94131.1.1 ity of Essie Cardona 3.412.2.7 [place] .3.673435 MD [facility] 2023-06-26 2023-06-26 Travel 1.2.840.1 1.2.011.765 2848 [id number] Univers 00:00:00 00:00:00 05547.1.1 350.1.13.41 ity of 3.412.2.7 [place]7.3.698 [place] .3.442195 084.8 MD [facility] 2023-06-26 2023-06-26 Travel 1.2.840.1 1.2.866.105 5924 [id number] Univers 00:00:00 00:00:00 52072.1.1 350.1.13.41 ity of 3.412.2.7 [place]7.3.698 [place] .3.994157 084.8 MD [facility] 2023-06-25 2023-06-25 [facility] 1.2.840.1 [id number] Univers 06:30:00 23:59:00 Encounter Jennifer Childs 38682.1.1 ity of 3.412.2.7 [place] .3.348661 MD [facility] 2023-06-25 2023-06-25 [facility] 1.2.840.1 [id number] Univers 06:30:00 23:59:00 Encounter Jennifer Childs 97216.1.1 ity of 3.412.2.7 [place] .3.119490 MD [facility] 2023-06-25 2023-06-25 Consult DAYSI Dewey, 1.2.840.1 [id number] Univers 10:30:00 12:08:37 Josh 33030.1.1 ity of 3.412.2.7 [place] .3.750908 MD [facility] 2023-06-25 2023-06-25 Consult Maco, 1.2.840.1 [id number] Univers 10:30:00 12:08:37 Josh 55813.1.1 ity of 3.412.2.7 [place] .3.881070 MD [facility] 2023-06-25 2023-06-25 Ancillary DAYSI Lombardo, 1.2.840.1 [id number] 1109 [id number] Univers 09:00:00 09:15:00 Procedure Radha N 31502.1.1 it y of 3.412.2.7 [place] .3.508341 MD [facility] 2023-06-25 2023-06-25 Ancillary Lombardo, 1.2.840.1 [id number] 1109 [id number] Univers 09:00:00 09:15:00 Procedure Radha N 25532.1.1 it y of 3.412.2.7 [place] .3.567159 MD [facility] 2023-06-25 2023-06-25 Travel 1.2.840.1 1.2.686.223 4225 [id number] Univers 00:00:00 00:00:00 45743.1.1 350.1.13.41 ity of 3.412.2.7 [place]7.3.698 [place] .3.192149 084.8 MD [facility] 2023-06-25 2023-06-25 Travel 1.2.840.1 1.2.611.923 9118 [id number] Univers 00:00:00 00:00:00 99616.1.1 350.1.13.41 ity of 3.412.2.7 [place]7.3.698 [place] .3.720839 084.8 MD [facility] 2023-06-23 2023-06-23 Orders Lombardo, 1.2.840.1 [id number] Univers 00:00:00 00:00:00 Only Radha N 94393.1.1 ity of 3.412.2.7 [place] .3.502331 MD [facility] 2023-06-23 2023-06-23 Orders Lombardo, 1.2.840.1 [id number] Univers 00:00:00 00:00:00 Only Radha N 30816.1.1 ity of 3.412.2.7 [place] .3.473253 MD [facility] 2023-06-20 2023-06-20 Orders Yoav, 1.2.840.1 [id number] Univers 00:00:00 00:00:00 Only Faydria 99317.1.1 ity of 3.412.2.7 [place] .3.166766 MD [facility] 2023-06-20 2023-06-20 Orders Yoav, 1.2.840.1 [id number] Univers 00:00:00 00:00:00 Only Faydria 04236.1.1 ity of 3.412.2.7 [place] .3.785868 MD [facility] 2023-06-19 2023-06-19 Orders Lombardo, 1.2.840.1 [id number] Univers 00:00:00 00:00:00 Only Radha N 80834.1.1 ity of 3.412.2.7 [place] .3.594390 MD [facility] 2023-06-19 2023-06-19 Orders Lombardo, 1.2.840.1 [id number] Univers 00:00:00 00:00:00 Only Radha N 53203.1.1 ity of 3.412.2.7 [place] .3.751031 MD [facility] 2023-06-18 [facility], 1.2.840.1 [id number] 1 [id number] Univers 15:00:00 15:20:00 ne Sausan 29364.1.1 ity of 3.412.2.7 [place] .3.871490 MD [facility] 2023-06-18 2023-06-18 [facility] Aboarb, 1.2.840.1 [id number] 1 [id number] Univers 15:00:00 15:20:00 ne Sausan 63517.1.1 ity of 3.412.2.7 [place] .3.575855 MD [facility] 2023-06-16 2023-06-16 Edis Chauhan 1.2.840.1 [id number] Univers 00:00:00 00:00:00 Only Ashanti 59023.1.1 ity of 3.412.2.7 [place] .3.597902 MD [facility] 2023-06-16 2023-06-16 Edis Chauhan 1.2.840.1 [id number] Univers 00:00:00 00:00:00 Only Ashanti 02732.1.1 ity of 3.412.2.7 [place] .3.878635 MD [facility] 2023-06-12 2023-06-12 Follow-Up DAYSI Lombardo 1.2.840.1 [id number] 1109 [id number] Univers 09:30:00 11:11:55 Radha N 49703.1.1 ity of 3.412.2.7 [place] .3.320131 MD [facility] 2023-06-12 2023-06-12 Follow-Up Munira 1.2.840.1 [id number] 1109 [id number] Univers 09:30:00 11:11:55 Radha N 89750.1.1 ity of 3.412.2.7 [place] .3.210917 MD [facility] 2023-06-12 2023-06-12 Ancillary EL Lombardo, 1.2.840.1 [id number] 1109 [id number] Univers 08:50:00 09:00:00 Procedure Radha N 47137.1.1 it y of 3.412.2.7 [place] .3.953039 MD [facility] 2023-06-12 2023-06-12 Ancillary Lombardo, 1.2.840.1 [id number] 1109 [id number] Univers 08:50:00 09:00:00 Procedure Radha N 10155.1.1 it y of 3.412.2.7 [place] .3.861651 MD [facility] 2023-06-12 2023-06-12 Refill Cabrera 1.2.840.1 [id number] 11 [id number] Univers 00:00:00 00:00:00 a, 27896.1.1 it[place] .3.648938 MD [facility] 2023-06-12 2023-06-12 Kayode Martinez 1.2.840.1 [id number] Univers 00:00:00 00:00:00 Sharon A 72770.1.1 ity of 3.412.2.7 [place] .3.082931 MD [facility] 2023-06-12 2023-06-12 Travel 1.2.840.1 1.2.563.591 9632 [id number] Univers 00:00:00 00:00:00 70234.1.1 350.1.13.41 ity of 3.412.2.7 2.[place].7.3.698 [place] .3.223398 084.8 MD [facility] 2023-06-12 2023-06-12 Kayode Rees 1.2.840.1 [id number] 11 [id number] Univers 00:00:00 00:00:00 a, 69172.1.1 it[place] .3.437942 MD [facility] 2023-06-12 2023-06-12 Refill Juan, 1.2.840.1 [id number] Univers 00:00:00 00:00:00 Sharon A 10079.1.1 ity of 3.412.2.7 [place] .3.327799 MD [facility] 2023-06-12 2023-06-12 Travel 1.2.840.1 1.2.591.324 6013 [id number] Univers 00:00:00 00:00:00 89481.1.1 350.1.13.41 ity of 3.412.2.7 2.2.7.3.698 [place] .3.688988 084.8 MD [facility] 2023-06-11 2023-06-11 Follow-Up EL Bjarb, 1.2.840.1 [id number] 11 [id number] Univers 11:00:00 14:19:42 Sausan 90855.1.1 ity of 3.412.2.7 [place] .3.236219 MD [facility] 2023-06-11 2023-06-11 Follow-Up Koryarb, 1.2.840.1 [id number] 11 [id number] Univers 11:00:00 14:19:42 Sausan 39011.1.1 ity of 3.412.2.7 [place] .3.159063 MD [facility] 2023-06-11 2023-06-11 Telemedici EL K[place] 1.2.840.1 [id number] Univers 13:20:00 14:16:05 ne a, 52784.1.1 ity of [place]412.2.[place] .3.596810 MD [facility] 2023-06-11 2023-06-11 Telemedici K[place]yalagunt 1.2.840.1 [id number] Univers 13:20:00 14:16:05 ne a, 36732.1.1 ity of [place]412.2.[place] .3.031580 MD [facility] 2023-06-11 2023-06-11 Ancillary DAYSI Lombardo, 1.2.840.1 [id number] 1109 [id number] Univers 13:45:00 14:00:00 Procedure Radha N 50904.1.1 it y of 3.412.2.7 [place] .3.236844 MD [facility] 2023-06-11 2023-06-11 Ancillary Lombardo, 1.2.840.1 [id number] 1109 [id number] Univers 13:45:00 14:00:00 Procedure Radha N 56621.1.1 it y of 3.412.2.7 [place] .3.860383 MD [facility] 2023-06-11 2023-06-11 Outpatient Edis [facility] [id number] 5223 09:46:55 09:52:49 [facility] 2023-06-11 2023-06-11 Travel 1.2.840.1 1.2.350.583 2133 [id number] Univers 00:00:00 00:00:00 77774.1.1 350.1.13.41 ity of 3.412.2.7 2.2.7.3.698 [place] .3.829274 084.8 MD [facility] 2023-06-11 2023-06-11 Travel 1.2.840.1 1.2.942.131 2249 [id number] Univers 00:00:00 00:00:00 23028.1.1 350.1.13.41 ity of 3.412.2.7 2.2.7.3.698 [place] .3.238040 084.8 MD [facility] 2023-06-05 2023-06-07 [facility] Jalil Bain 1.2.840.1 [id number] Univers 09:23:00 14:01:00 Desi Cruz, Dion 90796.1.1 ity of Elijah German 3.412.2.7 [place] .3.212463 MD [facility] 2023-06-05 2023-06-07 [facility] Jalil Alejandro 1.2.840.1 [id number] Univers 09:23:00 14:01:00 Encounter Dion Cruz 52914.1.1 ity of Agnieszka Germannicho Mcgrath 3.412.2.7 [place] .3.802071 MD [facility] 2023-06-05 2023-06-05 Surgery [facility], 1.2.840.1 [id number] Univers 10:15:00 12:20:00 Jalil Chau 96701.1.1 it y of 3.412.2.7 [place] .3.974440 MD [facility] 2023-06-05 2023-06-05 [facility], 1.2.840.1 [id number] Univers 10:15:00 12:20:00 Jalil Chau 18120.1.1 it y of 3.412.2.7 [place] .3.895609 MD [facility] 2023-06-05 2023-06-05 Anesthesia Purugganan, 1.2.840.1 [id number] Univers 10:53:00 12:17:00 Event Jose 81588.1.1 ity of 3.412.2.7 [place] .3.392953 MD [facility] 2023-06-05 2023-06-05 Anesthesia Purugganan, 1.2.840.1 [id number] Univers 10:53:00 12:17:00 Event Jose 18612.1.1 ity of 3.412.2.7 [place] .3.126430 MD [facility] 2023-06-05 2023-06-05 Outpatient JAMIE ALEJANDRO [facility] [id number] [id number] 10:08:10 10:08:10 JALIL gibbs 2023-06-05 2023-06-05 Orders Etchegaray- 1.2.840.1 [id number] Univers 00:00:00 00:00:00 Only Yaima 62488.1.1 ity of Dion 3.412.2.7 [place] .3.103600 MD [facility] 2023-06-05 2023-06-05 Travel 1.2.840.1 1.2.641.289 3858 [id number] Univers 00:00:00 00:00:00 05845.1.1 350.1.13.41 ity of 3.412.2.7 2.2.7.3.698 [place] .3.009849 084.Miranda [facility] 2023-06-05 2023-06-05 Orders Etchegaray- 1.2.840.1 [id number] 11 [id number] Univers 00:00:00 00:00:00 Only Yaima 34586.1.1 ity of Dion 3.412.2.7 [place] .3.475262 MD [facility] 2023-06-05 2023-06-05 Travel 1.2.840.1 1.2.523.313 9248 [id number] Univers 00:00:00 00:00:00 81512.1.1 350.1.13.41 ity of 3.412.2.7 2.2.7.3.698 [place] .3.570106 084Candace [facility] 2023-06-04 2023-06-04 Anesthesia Leon 1.2.840.1 [id number] Univers 23:59:59 23:59:59 Event Amna Grady 41187.1.1 ity of 3.412.2.7 [place] .3.493123 MD [facility] 2023-06-04 2023-06-04 Anesthesia Leon, 1.2.840.1 [id number] 062 [id number] Univers 23:59:59 23:59:59 Event Amna Grady 06018.1.1 ity of 3.412.2.7 [place] .3.965673 MD [facility] 2023-06-04 2023-06-04 POEM EL Abouharb, 1.2.840.1 [id number] 1108 [id number] Univers 16:00:00 16:30:00 Appointmen Sausan 35998.1.1 i ty of ts 3.412.2.7 [place] .3.191863 MD [facility] 2023-06-04 2023-06-04 POEM Abouharb, 1.2.840.1 [id number] 1108 [id number] Univers 16:00:00 16:30:00 Appointmen Sausan 32277.1.1 i ty of ts 3.412.2.7 [place] .3.763348 MD [facility] 2023-06-04 2023-06-04 Edis Chauhan 1.2.840.1 [id number] Univers 00:00:00 00:00:00 Only Ashanti 31926.1.1 ity of 3.412.2.7 [place] .3.147573 MD [facility] 2023-06-04 2023-06-04 Edis Chauhan 1.2.840.1 [id number] Univers 00:00:00 00:00:00 Only Ashanti 87859.1.1 ity of 3.412.2.7 [place] .3.709846 MD [facility] 2023-06-03 2023-06-03 Ancillary EL Abouharb, 1.2.840.1 [id number] 11 [id number] Univers 11:30:00 12:30:00 Procedure Sausan 10488.1.1 it y of 3.412.2.7 [place] .3.176967 MD [facility] 2023-06-03 2023-06-03 Ancillary Abouharb, 1.2.840.1 [id number] 11 [id number] Univers 11:30:00 12:30:00 Procedure Sausan 88703.1.1 it y of 3.412.2.7 [place] .3.281721 MD [facility] 2023-06-03 2023-06-03 Evaluation EL Marecllo Schultz 1.2.840.1 1020 07833 [id number] Univers 09:30:00 10:30:00 Dayanara Pizano 64963.1.1 ity of 3.412.2.7 [place] .3.801817 MD [facility] 2023-06-03 2023-06-03 Evaluation Marcello Schultz 1.2.840.1 1020 35915 [id number] Univers 09:30:00 10:30:00 Dayanara Pizano 71404.1.1 ity of 3.412.2.7 [place] .3.456693 MD [facility] 2023-06-03 2023-06-03 Orders Abouharb, 1.2.840.1 [id number] 1108 [id number] Univers 00:00:00 00:00:00 Only Sausan 38837.1.1 ity of 3.412.2.7 [place] .3.620509 MD [facility] 2023-06-03 2023-06-03 Travel 1.2.840.1 1.2.490.241 6334 [id number] Univers 00:00:00 00:00:00 58434.1.1 350.1.13.41 ity of 3.412.2.7 2.2.7.3.698 [place] .3.909748 084.8 MD [facility] 2023-06-03 2023-06-03 Orders Koryuharb, 1.2.840.1 [id number] 1108 [id number] Univers 00:00:00 00:00:00 Only Sausan 23306.1.1 ity of 3.412.2.7 [place] .3.191109 MD [facility] 2023-06-03 2023-06-03 Travel 1.2.840.1 1.2.512.572 5784 [id number] Univers 00:00:00 00:00:00 85221.1.1 350.1.13.41 ity of 3.412.2.7 2.2.7.3.698 [place] .3.374240 084.8 MD [facility] 2023-06-02 2023-06-02 Follow-Up EL Adibi, 1.2.840.1 [id number] 1108 [id number] Univers 13:30:00 15:37:46 Mehrad 61749.1.1 ity of 3.412.2.7 [place] .3.320991 MD [facility] 2023-06-02 2023-06-02 Follow-Up Adibi, 1.2.840.1 [id number] 1108 [id number] Univers 13:30:00 15:37:46 Mehrad 11150.1.1 ity of 3.412.2.7 [place] .3.855538 MD [facility] 2023-06-02 2023-06-02 Office EL Adibi, 1.2.840.1 [id number] Univers 13:30:00 14:00:00 Visit Mehrad 09169.1.1 ity of 3.412.2.7 [place] .3.416535 MD [facility] 2023-06-02 2023-06-02 Office Adibi, 1.2.840.1 [id number] Univers 13:30:00 14:00:00 Visit Mehrad 84817.1.1 ity of 3.412.2.7 [place] .3.161843 MD [facility] 2023-06-02 2023-06-02 Follow-Up EL Lombardo, 1.2.840.1 [id number] 1108 [id number] Univers 08:00:00 10:53:49 Radha N 33941.1.1 ity of 3.412.2.7 [place] .3.211113 MD [facility] 2023-06-02 2023-06-02 Follow-Up Lombardo, 1.2.840.1 [id number] 1108 [id number] Univers 08:00:00 10:53:49 Radha N 31284.1.1 ity of 3.412.2.7 [place] .3.791343 MD [facility] 2023-06-02 2023-06-02 Ancillary EL Lombardo, 1.2.840.1 [id number] 1108 [id number] Univers 09:45:00 09:55:00 Procedure Radha N 41242.1.1 it y of 3.412.2.7 [place] .3.496980 MD [facility] 2023-06-02 2023-06-02 Ancillary Lombardo, 1.2.840.1 [id number] 1108 [id number] Univers 09:45:00 09:55:00 Procedure Radha N 60797.1.1 it y of 3.412.2.7 [place] .3.042646 MD [facility] 2023-06-02 2023-06-02 Ancillary EL Javon, 1.2.840.1 [id number] 1108 [id number] Univers 07:15:00 07:30:00 Procedure Jalil F 66553.1.1 ity of 3.412.2.7 [place] .3.495954 MD [facility] 2023-06-02 2023-06-02 Ancillary Javon, 1.2.840.1 [id number] 1108 [id number] Univers 07:15:00 07:30:00 Procedure Jalil F 58306.1.1 ity of 3.412.2.7 [place] .3.301938 MD [facility] 2023-06-02 2023-06-02 Orders Edis Luciano 1.2.840.1 [id number] Univers 00:00:00 00:00:00 Only Ashanti 20781.1.1 ity of 3.412.2.7 [place] .3Dilan152760 MD [facility] 2023-06-02 2023-06-02 Prep for Lombardo, 1.2.840.1 [id number] [id number] Univers 00:00:00 00:00:00 Surgery Radha N 19384.1.1 ity of 3.412.2.7 [place] .3.528269 MD [facility] 2023-06-02 2023-06-02 Travel 1.2.840.1 1.2.792.816 9255 [id number] Univers 00:00:00 00:00:00 95673.1.1 350.1.13.41 ity of 3.412.2.7 2.2.7.3.698 [place] .3.346957 084.8 MD [facility] 2023-06-02 2023-06-02 Telephone Lombardo, 1.2.840.1 [id number] 1108 [id number] Univers 00:00:00 00:00:00 Radha N 79999.1.1 ity of 3.412.2.7 [place] .3.724324 MD [facility] 2023-06-02 2023-06-02 Orders Edis Luciano 1.2.840.1 [id number] Univers 00:00:00 00:00:00 Only Ashanti 83627.1.1 ity of 3.412.2.7 [place] .3.653472 MD [facility] 2023-06-02 2023-06-02 Prep for Lombardo, 1.2.840.1 [id number] Univers 00:00:00 00:00:00 Surgery Radha N 34253.1.1 ity of 3.412.2.7 [place] .3.736208 MD [facility] 2023-06-02 2023-06-02 Travel 1.2.840.1 1.2.827.881 7471 [id number] Univers 00:00:00 00:00:00 84176.1.1 350.1.13.41 ity of 3.412.2.7 2.[place]7.3.698 [place] .3.812407 084.8 MD [facility] 2023-06-02 2023-06-02 Telephone Lombardo, 1.2.840.1 [id number] Univers 00:00:00 00:00:00 Radha N 62789.1.1 ity of 3.412.2.7 [place] .3.543357 MD [facility] 2023-06-01 2023-06-01 Refill Abouharb, 1.2.840.1 [id number] Univers 00:00:00 00:00:00 Sausan 17322.1.1 ity of 3.412.2.7 [place] .3.568355 MD [facility] 2023-06-01 2023-06-01 [facility] Abouharb, 1.2.840.1 [id number] Univers 00:00:00 00:00:00 Sausasai 90974.1.1 ity of 3.412.2.7 [place] .3.553432 MD [facility] 2023-05-30 2023-05-30 [facility] 1.2.840.1 [id number] Univers 15:09:00 23:59:00 Encounter pareven 81716.1.1 it y of Genny F 3.412.2.7 [place] .3.067554 MD [facility] 2023-05-30 2023-05-30 [facility] 1.2.840.1 [id number] Univers 15:09:00 23:59:00 Encounter parveen 89019.1.1 it y of Genny F 3.412.2.7 [place] .3.158524 MD [facility] 2023-05-30 2023-05-30 Prep for Lombardo, 1.2.840.1 [id number] Univers 00:00:00 00:00:00 Surgery Radha N 86458.1.1 ity of 3.412.2.7 [place] .3.429153 MD [facility] 2023-05-30 2023-05-30 Telephone Nikolay, 1.2.840.1 [id number] Univers 00:00:00 00:00:00 Bessie Mendoza 23258.1.1 i ty of 3.412.2.7 [place] .3.768551 MD [facility] 2023-05-30 2023-05-30 Prep for Munira, 1.2.840.1 [id number] Univers 00:00:00 00:00:00 Surgery Radha N 31269.1.1 ity of 3.412.2.7 [place] .3.743235 MD [facility] 2023-05-30 2023-05-30 Telephone Link, 1.2.840.1 [id number] Univers 00:00:00 00:00:00 Bessie L 74429.1.1 i ty of 3.412.2.7 [place] .3.873759 MD [facility] 2023-05-28 2023-05-28 [facility], 1.2.840.1 [id number] Univers 19:19:00 23:59:00 Encounter Serge 08980.1.1 it y of Luke 3.412.2.7 [place] .3.274663 MD [facility] 2023-05-28 2023-05-28 [facility], 1.2.840.1 [id number] Univers 19:19:00 23:59:00 Encounter Serge 09928.1.1 it y of Luke 3.412.2.7 [place] .3.702750 MD [facility] 2023-05-28 2023-05-28 Infusion DAYSI Luciano, C 1.2.840.1 [id number] Univers 12:30:00 13:23:34 Ashanti 61853.1.1 ity of 3.412.2.7 [place] .3Dilan783459 MD [facility] 2023-05-28 2023-05-28 Infusion Ever, C 1.2.840.1 [id number] Univers 12:30:00 13:23:34 Ashanti 86019.1.1 ity of 3.412.2.7 [place] .3Dilan834581 MD [facility] 2023-05-28 2023-05-28 Follow-Up EL Abouharb, 1.2.840.1 [id number] Univers 11:20:00 13:07:07 Sausan 29275.1.1 ity of 3.412.2.7 [place] .3.454417 MD [facility] 2023-05-28 2023-05-28 Follow-Up Abouharb, 1.2.840.1 [id number] Univers 11:20:00 13:07:07 Sausan 03344.1.1 ity of 3.412.2.7 [place] .3.838422 MD [facility] 2023-05-28 2023-05-28 Travel 1.2.840.1 1.2.456.443 [id number] Univers 00:00:00 00:00:00 04491.1.1 350.1.13.41 ity of 3.412.2.[place]7.3.698 [place] .3.977846 084.8 MD [facility] 2023-05-28 2023-05-28 Travel 1.2.840.1 1.2.707.655 [id number] Univers 00:00:00 00:00:00 56842.1.1 350.1.13.41 ity of 3.412.2.[place]7.3.698 [place] .3.995056 084.8 MD [facility] 2023-05-27 2023-05-27 Ancillary EL Abouharb, 1.2.840.1 [id number] Univers 11:40:00 14:05:00 Procedure Sausan 54197.1.1 it y of 3.412.2.7 [place] .3.644339 MD [facility] 2023-05-27 2023-05-27 Ancillary Abouharb, 1.2.840.1 [id number] Univers 11:40:00 14:05:00 Procedure Sausan 94585.1.1 it y of 3.412.2.7 [place] .3.694035 MD [facility] 2023-05-27 2023-05-27 Ancillary EL Abouharb, 1.2.840.1 [id number] Univers 09:30:00 10:00:00 Procedure Sausan 44617.1.1 it y of 3.412.2.7 [place] .3.597406 MD [facility] 2023-05-27 2023-05-27 Ancillary Abouharb, 1.2.840.1 [id number] Univers 09:30:00 10:00:00 Procedure Sausan 52326.1.1 it y of 3.412.2.7 [place] .3.198946 MD [facility] 2023-05-27 2023-05-27 Ancillary EL Abouharb, 1.2.840.1 [id number] 11 [id number] Univers 07:00:00 07:30:00 Procedure Sausan 71287.1.1 it y of 3.412.2.7 [place] .3.647842 MD [facility] 2023-05-27 2023-05-27 Ancillary Abouharb, 1.2.840.1 [id number] 11 [id number] Univers 07:00:00 07:30:00 Procedure Sausan 07616.1.1 it y of 3.412.2.7 [place] .3.127138 MD [facility] 2023-05-27 2023-05-27 Outpatient EL ABOUHARB, [facility] [id number] 06:49:28 06:57:18 SAUSAN Leandro o n 2023-05-21 2023-05-21 Surgery Javon, 1.2.840.1 [id number] [facility] 13:30:00 14:40:00 Jalil F 65387.1.1 it y of 3.412.2.7 [place] .3.539135 MD [facility] 2023-05-21 2023-05-21 Surgery Javon, 1.2.840.1 [id number] Univers 13:30:00 14:40:00 Jalil Chau 24701.1.1 it y of 3.412.2.7 [place] .3.879336 MD [facility]8 [facility] 2023-05-21 2023-05-21 Hospital [facility], 1.2.840.1 [id number] [id number] Univers 12:55:00 14:33:00 Encounter Jalil Chau 72287.1.1 ity of 3.412.2.7 [place] .3.943845 MD Kong8 [facility] 2023-05-21 2023-05-21 [facility], 1.2.840.1 [id number] Univers 12:55:00 14:33:00 Encounter Jalil Chau 37818.1.1 ity of 3.412.2.7 [place] .3.102242 MD Kong8 [facility] 2023-05-21 2023-05-[address] [facility], [facility] MDA [id number] 13:10:13 13:10:13 JALIL gibbs 2023-05-21 2023-05-21 Consult [facility], 1.2.840.1 [id number] Univers 10:15:00 11:19:59 Jalil Chau 78883.1.1 it y of 3.412.2.7 [place] .3.215568 MD Kong8 [facility] 2023-05-21 2023-05-21 Consult [facility], 1.2.840.1 [id number] Univers 10:15:00 11:19:59 Jalil Chau 93111.1.1 it y of 3.412.2.7 [place] .3.505760 MD Kong8 [facility] 2023-05-21 2023-05-21 Travel 1.2.840.1 1.2.181.213 7396 [id number] Univers 00:00:00 00:00:00 69548.1.1 350.1.13.41 ity of 3.412.2.7 [place].3.698 [place] .3.932[place] 084.8 MD [facility] 2023-05-21 2023-05-21 Travel 1.2.840.1 1.2.502.800 1721 [id number] [facility] 00:00:00 00:00:00 41854.1.1 350.1.13.41 ity of 3.412.2.7 2.[place].7.3.698 [place] .3.215672 084.8 .8 [facility] 2023-05-20 2023-05-20 Outpatient DAYSI LOJAMikeJAMIE [facility] [id number] 11:16:21 11:22:43 ANASTACIA [facility] 2023-05-20 2023-05-20 Travel 1.2.840.1 1.2.728.713 6471 [id number] [facility] 00:00:00 00:00:00 69899.1.1 350.1.13.41 ity of 3.412.2.7 [place].7.3.698 [place] .3.5733[place] 084.8 MD [facility] 2023-05-20 2023-05-20 Travel 1.2.840.1 1.2.137.320 0357 [id number] [facility] 00:00:00 00:00:00 29812.1.1 350.1.13.41 ity of 3.412.2.7 [place].7.3.698 [place] .3.960210 084.8 MD [facility] 2023-05-07 2023-05-08 [facility] 1.2.840.1 [id number] Univers 14:30:00 08:45:43 Soha Pink 39480.1.1 ity of 3.412.2.7 [place] .3.168334 MD [facility] 2023-05-07 2023-05-08 Nutrition Marcello Schultz 1.2.840.1 71222 [id number] [id number] Univers 14:30:00 08:45:43 Pink, Soha B 40931.1.1 ity of 3.412.2.7 [place] .3.575675 MD [facility] 2023-05-08 2023-05-08 Carlos Rodriguez 1.2.840.1 [id number] 11 [id number] Univers 00:00:00 00:00:00 99145.1.1 ity of 3.412.2.7 [place] .3.130056 MD Kong8 [facility] 2023-05-08 2023-05-08 [facility] 1.2.840.1 [id number] 11 [id number] Univers 00:00:00 00:00:00 17684.1.1 ity of 3.412.2.7 [place] .3.917766 MD [facility] 2023-05-05 2023-05-05 Prep for Mackenney, 1.2.840.1 [id number] 11 [id number] Univers 00:00:00 00:00:00 Surgery Brenna 14828.1.1 ity of 3.412.2.7 [place] .3.311043 MD Kong8 [facility] 2023-05-05 2023-05-05 Prep for Mackenney, 1.2.840.1 [id number] 11 [id number] Univers 00:00:00 00:00:00 Surgery Brenna 00889.1.1 ity of 3.412.2.7 [place] .3.326592 MD [facility] 2023-05-01 2023-05-01 Edis Chauhan 1.2.840.1 [id number] Univers 00:00:00 00:00:00 Only Ashanti 31605.1.1 ity of 3.412.2.7 [place] .3.429115 MD [facility] 2023-05-01 2023-05-01 Edis Chauhan 1.2.840.1 [id number] Univers 00:00:00 00:00:00 Only Ashanti 30945.1.1 ity of 3.412.2.7 [place] .3.179900 MD [facility] 2023-04-30 2023-04-30 Ancillary EL Abouharb, 1.2.840.1 [id number] 11 [id number] Univers 14:00:00 15:00:00 Procedure Sausan 96077.1.1 it y of 3.412.2.7 [place] .3.385801 MD Kong8 [facility] 2023-04-30 2023-04-30 Ancillary Abouharb, 1.2.840.1 [id number] 11 [id number] Univers 14:00:00 15:00:00 Procedure Sausan 67407.1.1 it y of 3.412.2.7 [place] .3.460349 MD Kong8 [facility] 2023-04-30 2023-04-30 Ancillary EL Abouharb, 1.2.840.1 [id number] 11 [id number] Univers 13:45:00 14:00:00 Procedure Sausan 03200.1.1 it y of 3.412.2.7 [place] .3.712446 MD [facility] 2023-04-30 2023-04-30 Ancillary Abouharb, 1.2.840.1 [id number] 11 [id number] Univers 13:45:00 14:00:00 Procedure Sausan 21272.1.1 it y of 3.412.2.7 [place] .3.070852 MD Kong8 [facility] 2023-04-30 2023-04-30 Outpatient EL ABOUHARB, [place] [id number] 13:17:37 13:43:46 SAUSAN Leandro o n 2023-04-30 2023-04-30 Infusion EL Abouharb, 1.2.840.1 [id number] [id number] Univers 11:45:00 12:15:00 Sausan 60874.1.1 ity of 3.412.2.7 [place] .3.433293 MD [facility] 2023-04-30 2023-04-30 Infusion Abouharb, 1.2.840.1 [id number] [id number] Univers 11:45:00 12:15:00 Sausan 43250.1.1 ity of 3.412.2.7 [place] .3.318122 MD [facility] 2023-04-30 2023-04-30 Follow-Up EL Bjarb, 1.2.840.1 [id number] 11 [id number] Univers 11:00:00 12:11:19 Marcello 92533.1.1 ity of 3.412.2.7 [place] .3.240441 MD [facility] 2023-04-30 2023-04-30 Follow-Up Koryarb, 1.2.840.1 [id number] 11 [id number] Univers 11:00:00 12:11:19 Marcello 27128.1.1 ity of 3.412.2.7 [place] .3.010065 MD [facility] 2023-04-30 2023-04-30 Outpatient EL KORYARB, [facility] MDA [id number] 09:44:58 09:52:51 MARCELLO [facility] 2023-04-30 2023-04-30 Travel 1.2.840.1 1.2.210.082 9367 [id number] Univers 00:00:00 00:00:00 64361.1.1 350.1.13.41 ity of 3.412.2.7 [place]7.3.698 [place] .3.047572 084.8 MD [facility] 2023-04-30 2023-04-30 Travel 1.2.840.1 1.2.697.983 1247 [id number] Univers 00:00:00 00:00:00 69557.1.1 350.1.13.41 ity of 3.412.2.7 2.[place].7.3.698 [place] .3.577761 084.8 MD [facility] 2023-04-26 2023-04-26 Refill Gibsonyalagunt 1.2.840.1 [id number] 11 [id number] Univers 00:00:00 00:00:00 a, 80948.1.1 ity of [place].412.2.7 [place] .3.221865 MD [facility] 2023-04-26 2023-04-26 Refill Cabrera 1.2.840.1 [id number] 11 [id number] Univers 00:00:00 00:00:00 a, 50419.1.1 ity of [place]2.7 [place] .3.064321 MD Kong8 [facility] 2023-04-02 2023-04-02 Infusion EL Abouharb, 1.2.840.1 [id number] 110 [id number] Univers 10:30:00 11:26:24 Sausan 59447.1.1 ity of 3.412.2.7 [place] .3.456972 MD [facility] 2023-04-02 2023-04-02 Infusion Abouharb, 1.2.840.1 [id number] 383 [id number] Univers 10:30:00 11:26:24 Sausan 56955.1.1 ity of 3.412.2.7 [place] .3.818929 MD [facility] 2023-04-02 2023-04-02 Follow-Up EL Abouharb, 1.2.840.1 [id number] 11 [id number] Univers 09:40:00 10:27:48 Sausan 30244.1.1 ity of 3.412.2.7 [place] .3.465281 MD [facility] 2023-04-02 2023-04-02 Follow-Up Abouharb, 1.2.840.1 [id number] 11 [id number] Univers 09:40:00 10:27:48 Sausan 81607.1.1 ity of 3.412.2.7 [place] .3.236320 MD [facility] 2023-04-02 2023-04-02 Outpatient EL ABOUHARB, MDA MDA [id number] 08:50:17 09:04:04 MARCELLO gibbs 2023-04-02 2023-04-02 Edis Chauhan 1.2.840.1 [id number] Univers 00:00:00 00:00:00 Only Ashanti 11658.1.1 ity of 3.412.2.7 [place] .3.379209 MD [facility] 2023-04-02 2023-04-02 Travel 1.2.840.1 1.2.429.209 5830 [id number] Univers 00:00:00 00:00:00 19812.1.1 350.1.13.41 ity of 3.412.2.7 [place].7.3.698 [place] .3.972776 084.8 MD [facility] 2023-04-02 2023-04-02 Edis Chauhan 1.2.840.1 [id number] Univers 00:00:00 00:00:00 Only Ashanti 25581.1.1 ity of 3.412.2.7 [place] .3.908499 MD [facility] 2023-04-02 2023-04-02 Travel 1.2.840.1 1.2.242.905 1488 [id number] Univers 00:00:00 00:00:00 06522.1.1 350.1.13.41 ity of 3.412.2.7 2.[place].7.3.698 [place] .3.454790 084.8 MD [facility] 2023-03-21 2023-03-21 Tino Santana [facility] 1.2.840.114 1 [id number] Univers 14:20:00 14:40:00 Care Unknown, Attending HEALTH 350.1.13.10 ity of ALLIE 4.2.7.2.686 Kavin as ELANA?BLEA [phone] [address] MED[facility] 2023-03-21 2023-03-21 Outpatient R PADMINI [facility] [id number] Univers 14:20:00 14:20:00 TINO abbasi of [facility] 2023-03-21 2023-03-21 Orders Doctor GOMEZ 1.2.840.114 [id number] Univers 00:00:00 00:00:00 Only Unassigned, JOSE ALFREDO 350.1.13.10 ity of [place] [facility] 4.2.7.2.686 Kavin as [phone] [place] [address] [address] 2023-03-12 2023-03-12 Telephone Shed, 1.2.840.1 [id number] [id number] Univers 00:00:00 00:00:00 Vivian Mejia 57993.1.1 ity of 3.412.2.7 [place] .3.104668 MD Kong8 [facility] 2023-03-12 2023-03-12 Telephone Shed, 1.2.840.1 [id number] 1105 [id number] Univers 00:00:00 00:00:00 Vivian Mejia 73789.1.1 ity of 3.412.2.7 [place] .3.140350 MD Kong8 [facility] 2023-03-11 2023-03-11 Telephone Gurdeep, 1.2.840.1 [id number] 1105 [id number] Univers 00:00:00 00:00:00 Elisa 91104.1.1 it y of 3.412.2.7 [place] .3.855017 MD Kong8 [facility] 2023-03-11 2023-03-11 Telephone Gurdeep, 1.2.840.1 [id number] 1105 [id number] Univers 00:00:00 00:00:00 Elisa 73585.1.1 it y of 3.412.2.7 [place] .3.557339 MD [facility] 2023-03-10 2023-03-10 Ancillary Edis Mclean 1.2.840.1 [id number] Univers 14:00:00 15:00:00 Procedure Ashanti 91728.1.1 it y of 3.412.2.7 [place] .3.169146 MD [facility] 2023-03-10 2023-03-10 Edis Vargas 1.2.840.1 [id number] 796 [id number] Univers 14:00:00 15:00:00 Procedure Ashanti 56323.1.1 it y of 3.412.2.7 [place] .3.850286 MD [facility] 2023-03-10 2023-03-10 Travel 1.2.840.1 1.2.551.467 5474 [id number] Univers 00:00:00 00:00:00 40534.1.1 350.1.13.41 ity of 3.412.2.7 2.[place].7.3.698 [place] .3.524008 084.8 MD [facility] 2023-03-10 2023-03-10 Telephone Adibi, 1.2.840.1 [id number] [id number] Univers 00:00:00 00:00:00 Mehrad 81150.1.1 ity of 3.412.2.7 [place] .3.386754 MD [facility] 2023-03-10 2023-03-10 Travel 1.2.840.1 1.2.806.427 6446 [id number] Univers 00:00:00 00:00:00 07249.1.1 350.1.13.41 ity of 3.412.2.7 2.2.7.3.698 [place] .3.178412 084.8 MD [facility] 2023-03-10 2023-03-10 Telephone Adibi, 1.2.840.1 [id number] 1105 [id number] Univers 00:00:00 00:00:00 Mehrad 38441.1.1 ity of 3.412.2.7 [place] .3.966616 MD [facility] 2023-03-07 2023-03-07 Mobile Luciano, C 1.2.840.1 [id number] Univers 00:00:00 00:00:00 Encounter Ashanti 47133.1.1 it y of 3.412.2.7 [place] .3.960099 MD [facility] 2023-03-07 2023-03-07 Mobile Luciano, C 1.2.840.1 [id number] Univers 00:00:00 00:00:00 Encounter Ashanti 49042.1.1 it y of 3.412.2.7 [place] .3.763865 MD [facility] 2023-03-05 2023-03-05 Infusion EL Abouharb, 1.2.840.1 [id number] 099 [id number] Univers 14:00:00 14:00:00 Sausan 48624.1.1 ity of 3.412.2.7 [place] .3.538624 MD [facility] 2023-03-05 2023-03-05 Infusion Abouharb, 1.2.840.1 [id number] 160 [id number] Univers 14:00:00 14:00:00 Sausan 60328.1.1 ity of 3.412.2.7 [place] .3.995491 MD [facility] 2023-03-05 2023-03-05 Follow-Up EL Abouharb, 1.2.840.1 [id number] 11 [id number] Univers 13:40:00 13:40:00 Sausan 45535.1.1 ity of 3.412.2.7 [place] .3.831880 MD [facility] 2023-03-05 2023-03-05 Follow-Up Abouharb, 1.2.840.1 [id number] 11 [id number] Univers 13:40:00 13:40:00 Sausan 06584.1.1 ity of 3.412.2.7 [place] .3.940358 MD [facility] 2023-03-05 2023-03-05 Follow-Up EL Koyyalagunt 1.2.840.1 [id number] Univers 13:00:00 13:27:28 a, 16295.1.1 ity of [place].412.2.7 [place] .3.684936 MD [facility] 2023-03-05 2023-03-05 Follow-Up Koyyalagunt 1.2.840.1 [id number] Univers 13:00:00 13:27:28 a, 36273.1.1 [facility] [place]2.[place] .3.850967 MD [facility] 2023-03-05 2023-03-05 Outpatient [facility] MDA [id number] 10:59:53 11:07:31 MARCELLO Reeves [facility] 2023-03-05 2023-03-05 Travel 1.2.840.1 1.2.136.378 5911 [id number] Univers 00:00:00 00:00:00 69777.1.1 350.1.13.41 ity of 3.412.2.7 2.2.7.3.698 [place] .3.014951 084.8 MD [facility] 2023-03-05 2023-03-05 Travel 1.2.840.1 1.2.451.164 9344 [id number] Univers 00:00:00 00:00:00 34336.1.1 350.1.13.41 ity of 3.412.2.7 2.2.7.3.698 [place] .3.896260 084.Miranda [facility] 2023-03-04 2023-03-04 Oumar Martinez 1.2.840.1 [id number] [id number] Univers 00:00:00 00:00:00 Only Sharon A 42211.1.1 ity of 3.412.2.7 [place] .3.189283 MD [facility] 2023-03-04 2023-03-04 Oumar Martinez 1.2.840.1 [id number] Univers 00:00:00 00:00:00 Only Sharon A 10830.1.1 ity of 3.412.2.7 [place] .3.589596 MD [facility] 2023-03-04 2023-03-04 Oumar Martinez 1.2.840.1 [id number] [id number] Univers 00:00:00 00:00:00 Only Sharon A 47643.1.1 ity of 3.412.2.7 [place] .3.045866 MD Kong8 [facility] 2023-03-04 2023-03-04 Orders Martinez, 1.2.840.1 [id number] Univers 00:00:00 00:00:00 Only Sharon A 52743.1.1 ity of 3.412.2.7 [place] .3.071345 MD Kong8 [facility] 2023-03-03 2023-03-03 Ancillary EL Abouharb, 1.2.840.1 [id number] 11 [id number] Univers 12:00:00 12:30:00 Procedure Sausan 11480.1.1 it y of 3.412.2.7 [place] .3.223892 MD [facility] 2023-03-03 2023-03-03 Ancillary Abouharb, 1.2.840.1 [id number] 11 [id number] Univers 12:00:00 12:30:00 Procedure Sausan 32475.1.1 it y of 3.412.2.7 [place] .3.328392 MD Kong8 [facility] 2023-03-03 2023-03-03 Ancillary EL Abouharb, 1.2.840.1 [id number] 11 [id number] Univers 08:40:00 11:05:00 Procedure Sausan 71399.1.1 it y of 3.412.2.7 [place] .3.378185 MD Kong8 [facility] 2023-03-03 2023-03-03 Ancillary Abouharb, 1.2.840.1 [id number] 11 [id number] Univers 08:40:00 11:05:00 Procedure Sausan 98383.1.1 it y of 3.412.2.7 [place] .3.308864 MD Kong8 [facility] 2023-03-03 2023-03-03 Ancillary EL Abouharb, 1.2.840.1 [id number] 11 [id number] Univers 09:30:00 10:00:00 Procedure Sausan 97075.1.1 it y of 3.412.2.7 [place] .3.470016 MD [facility] 2023-03-03 2023-03-03 Ancillary Abouharb, 1.2.840.1 [id number] 11 [id number] Univers 09:30:00 10:00:00 Procedure Sausan 62345.1.1 it y of 3.412.2.7 [place] .3.043054 MD [facility] 2023-03-03 2023-03-03 Travel 1.2.840.1 1.2.681.959 7531 [id number] Univers 00:00:00 00:00:00 01727.1.1 350.1.13.41 ity of 3.412.2.7 2.2.7.3.698 [place] .3.937432 084.Miranda [facility] 2023-03-03 2023-03-03 Travel 1.2.840.1 1.2.914.307 9798 [id number] Univers 00:00:00 00:00:00 87234.1.1 350.1.13.41 ity of 3.412.2.7 2.2.7.3.698 [place] .3.602436 084.Miranda [facility] 2023-02-05 2023-02-05 Infusion EL Abouharb, 1.2.840.1 [id number] Univers 14:30:00 14:30:00 Sausan 61489.1.1 ity of 3.412.2.7 [place] .3.268099 MD [facility] 2023-02-05 2023-02-05 Infusion Abouharb, 1.2.840.1 [id number] Univers 14:30:00 14:30:00 Sausan 94677.1.1 ity of 3.412.2.7 [place] .3.212519 MD [facility] 2023-02-05 2023-02-05 Follow-Up EL Abouharb, 1.2.840.1 [id number] 11 [id number] Univers 14:00:00 14:00:00 Marcello 92110.1.1 ity of 3.412.2.7 [place] .3.369959 MD [facility] 2023-02-05 2023-02-05 Follow-Up Abouharb, 1.2.840.1 [id number] 11 [id number] Univers 14:00:00 14:00:00 Marcello 20563.1.1 ity of 3.412.2.7 [place] .3.379642 MD [facility] 2023-02-05 2023-02-05 Outpatient EL ABOUHARB, MDA MDA [id number] 09:30:19 09:48:20 MARCELLO grant 2023-02-05 2023-02-05 Travel 1.2.840.1 1.2.967.239 4013 [id number] Univers 00:00:00 00:00:00 40344.1.1 350.1.13.41 ity of 3.412.2.7 2.[place].7.3.698 [place] .3.458181 084.8 MD [facility] 2023-02-05 2023-02-05 Travel 1.2.840.1 1.2.638.520 1279 [id number] Univers 00:00:00 00:00:00 62493.1.1 350.1.13.41 ity of 3.412.2.7 2.2.7.3.698 [place] .3.431842 084.8 MD [facility] 2023-01-27 2023-01-27 Orders Abouharb, 1.2.840.1 [id number] [id number] Univers 00:00:00 00:00:00 Only Marcello 16331.1.1 ity of 3.412.2.7 [place] .3.813758 MD [facility] 2023-01-27 2023-01-27 Orders Abouharb, 1.2.840.1 [id number] 1104 [id number] Univers 00:00:00 00:00:00 Only Sausan 35353.1.1 ity of 3.412.2.7 [place] .3.912176 MD [facility] 2023-01-24 2023-01-24 Telephone Potter, 1.2.840.1 [id number] 1104 [id number] Univers 00:00:00 00:00:00 Ashley P 59870.1.1 ity of 3.412.2.7 [place] .3.440522 MD Kogn8 [facility] 2023-01-24 2023-01-24 Telephone Rich, 1.2.840.1 [id number] 1104 [id number] Univers 00:00:00 00:00:00 Ashley P 61424.1.1 ity of 3.412.2.7 [place] .3.286086 MD [facility] 2023-01-22 2023-01-22 Telephone Steph Graves 1.2.840.1 [id number] Univers 00:00:00 00:00:00 M 35048.1.1 ity of 3.412.2.7 [place] .3.194566 MD [facility] 2023-01-22 2023-01-22 Telephone Steph Graves 1.2.840.1 [id number] Univers 00:00:00 00:00:00 M 28244.1.1 ity of 3.412.2.7 [place] .3.921072 MD [facility] 2023-01-08 2023-01-08 Infusion EL Abouharb, 1.2.840.1 [id number] 051 [id number] Univers 11:45:00 12:15:00 Sausan 46634.1.1 ity of 3.412.2.7 [place] .3.646960 MD [facility] 2023-01-08 2023-01-08 Infusion Abouharb, 1.2.840.1 [id number] Univers 11:45:00 12:15:00 Sausan 73296.1.1 ity of 3.412.2.7 [place] .3.281752 MD [facility] 2023-01-08 2023-01-08 Follow-Up DAYSI Franklinarb, 1.2.840.1 [id number] 11 [id number] Univers 09:20:00 10:51:29 Sausan 43979.1.1 ity of 3.412.2.7 [place] .3.967145 MD [facility] 2023-01-08 2023-01-08 Follow-Up Bjarb, 1.2.840.1 [id number] Univers 09:20:00 10:51:29 Sausan 76508.1.1 ity of 3.412.2.7 [place] .3.131161 MD [facility] 2023-01-08 2023-01-08 Outpatient EL BJARB, [facility] [id number] 08:34:13 08:41:01 MARCELLO [facility] 2023-01-08 2023-01-08 Travel 1.2.840.1 1.2.498.152 [id number] [id number] Univers 00:00:00 00:00:00 89668.1.1 350.1.13.41 ity of 3.412.2.7 2.[place].7.3.698 [place] .3.658788 084.8 MD [facility] 2023-01-08 2023-01-08 Travel 1.2.840.1 1.2.880.956 [id number] Univers 00:00:00 00:00:00 28727.1.1 350.1.13.41 ity of 3.412.2.7 2.[place]7.3.698 [place] .3.060542 084.8 MD [facility] 2023-01-02 2023-01-02 Edis Chauhan 1.2.840.1 [id number] Univers 00:00:00 00:00:00 Only Ashanti 38407.1.1 ity of 3.412.2.7 [place] .3.825223 MD [facility] 2023-01-02 2023-01-02 Edis Chauhan 1.2.840.1 [id number] Univers 00:00:00 00:00:00 Only Ashanti 71919.1.1 ity of 3.412.2.7 [place] .3.035767 MD [facility] 2022-12-19 2022-12-19 Infusion EL Abouharb, 1.2.840.1 [id number] Univers 14:45:00 14:45:00 Sausan 04977.1.1 ity of 3.412.2.7 [place] .3.755655 MD Kong8 [facility] 2022-12-19 2022-12-19 Infusion Abouharb, 1.2.840.1 [id number] Univers 14:45:00 14:45:00 Sausan 98036.1.1 ity of 3.412.2.7 [place] .3.216498 MD Kong8 [facility] 2022-12-19 2022-12-19 Outpatient EL ABOUHARB, [facility] [id number] 12:06:03 12:14:13 SAUSAN [facility] 2022-12-19 2022-12-19 Telephone Abouharb, 1.2.840.1 [id number] Univers 00:00:00 00:00:00 Sausan 70929.1.1 ity of 3.412.2.7 [place] .3.762515 MD [facility] 2022-12-19 2022-12-19 Travel 1.2.840.1 1.2.797.740 [id number] [id number] Univers 00:00:00 00:00:00 57387.1.1 350.1.13.41 ity of 3.412.2.7 2.[place].7.3.698 [place] .3.448629 084.8 MD [facility] 2022-12-19 2022-12-19 Telephone Abouharb, 1.2.840.1 [id number] 11 [id number] Univers 00:00:00 00:00:00 Sausan 37112.1.1 ity of 3.412.2.7 [place] .3.563182 MD [facility] 2022-12-19 2022-12-19 Travel 1.2.840.1 1.2.971.889 6150 [id number] Univers 00:00:00 00:00:00 61004.1.1 350.1.13.41 ity of 3.412.2.7 2.[place].7.3.698 [place] .3.353100 084.8 MD [facility] 2022-12-17 2022-12-17 Telephone Abouharb, 1.2.840.1 [id number] Univers 00:00:00 00:00:00 Sausan 01281.1.1 ity of 3.412.2.7 [place] .3.644248 MD [facility] 2022-12-17 2022-12-17 Telephone Abouharb, 1.2.840.1 [id number] 11 [id number] Univers 00:00:00 00:00:00 Sausan 04446.1.1 ity of 3.412.2.7 [place] .3.994820 MD [facility] 2022-12-12 2022-12-12 Orders Abouharb, 1.2.840.1 [id number] [id number] Univers 00:00:00 00:00:00 Only Sausan 45279.1.1 ity of 3.412.2.7 [place] .3.612347 MD [facility] 2022-12-12 2022-12-12 Orders Luciano, C 1.2.840.1 [id number] Univers 00:00:00 00:00:00 Only Ashanti 00844.1.1 ity of 3.412.2.7 [place] .3.713332 MD [facility] 2022-12-12 2022-12-12 Orders Abouharb, 1.2.840.1 [id number] [id number] Univers 00:00:00 00:00:00 Only Sausan 38451.1.1 ity of 3.412.2.7 [place] .3.212058 MD [facility] 2022-12-12 2022-12-12 Edis Chauhan 1.2.840.1 [id number] Univers 00:00:00 00:00:00 Only Ashanti 33981.1.1 ity of 3.412.2.7 [place] .3.597475 MD [facility] 2022-12-05 2022-12-05 Infusion EL Abouharb, 1.2.840.1 [id number] Univers 14:45:00 14:45:00 Marcello 72342.1.1 ity of 3.412.2.7 [place] .3.289027 MD [facility] 2022-12-05 2022-12-05 Infusion Abouharb, 1.2.840.1 [id number] Univers 14:45:00 14:45:00 Marcello 81959.1.1 ity of 3.412.2.7 [place] .3.581041 MD [facility] 2022-12-05 2022-12-05 Outpatient EL ABOUHARB, MDA MDA [id number] 10:26:02 10:39:27 MARCELLO Le[facility] 2022-12-05 2022-12-05 Travel 1.2.840.1 1.2.747.879 2801 [id number] Univers 00:00:00 00:00:00 48640.1.1 350.1.13.41 ity of 3.412.2.[place].3.698 [place]3.[place]100[place] 084.8 MD [facility] 2022-12-05 2022-12-05 Travel 1.2.840.1 1.2.629.704 3955 [id number] Univers 00:00:00 00:00:00 90123.1.1 350.1.13.41 ity of 3.412.2.7 [place].3.698 [place] .3.9744[place] 084.8 MD .8 [facility] 2022-12-03 2022-12-03 Infusion EL Abouharb, 1.2.840.1 [id number] 834 [id number] Univers 13:45:00 13:45:00 Sausan 53805.1.1 ity of 3.412.2.7 [place] .3.052808 MD [facility] 2022-12-03 2022-12-03 Infusion Abouharb, 1.2.840.1 [id number] 813 [id number] Univers 13:45:00 13:45:00 Sausan 67182.1.1 ity of 3.412.2.7 [place] .3.071948 MD [facility] 2022-12-03 2022-12-03 Follow-Up EL Abouharb, 1.2.840.1 [id number] 11 [id number] Univers 09:40:00 11:27:15 Sausasai 15383.1.1 ity of 3.412.2.7 [place] .3.911631 MD [facility] 2022-12-03 2022-12-03 Follow-Up Abouharb, 1.2.840.1 [id number] 11 [id number] Univers 09:40:00 11:27:15 Sausan 28606.1.1 ity of 3.412.2.7 [place] .3.400466 MD [facility] 2022-12-03 2022-12-03 Outpatient EL ABOUHARB, [facility] [id number] 08:43:25 08:54:19 MARCELLO [facility] 2022-12-03 2022-12-03 Travel 1.2.840.1 1.2.292.558 3397 [id number] Univers 00:00:00 00:00:00 06597.1.1 350.1.13.41 ity of 3.412.2.7 [place]7.3.698 [place]3.6828[place] 084.8 MD [facility] 2022-12-03 2022-12-03 Travel 1.2.840.1 1.2.599.903 5497 002997 Univers 00:00:00 00:00:00 92203.1.1 350.1.13.41 ity of 3.412.2.7 [place]7.3.698 [place] .3.119740 084.8 MD [facility] 2022-11-28 2022-11-28 Telemedici Aboarb, 1.2.840.1 [id number] 1 [id number] Univers 15:20:00 15:40:00 ne Sausan 00964.1.1 ity of 3.412.2.7 [place] .3.312848 MD [facility]22-11-28 [facility], 1.2.840.1 [id number] 1 [id number] Univers 15:20:00 15:40:00 ne Sausan 39841.1.1 ity of 3.412.2.7 [place] .3.976583 MD [facility] 2022-11-27 2022-11-27 Orders Abouharb, 1.2.840.1 [id number] 1101 [id number] Univers 00:00:00 00:00:00 Only Sausan 01371.1.1 ity of 3.412.2.7 [place] .3.385512 MD [facility] 2022-11-27 2022-11-27 Orders Abouharb, 1.2.840.1 [id number] 1101 [id number] Univers 00:00:00 00:00:00 Only Sausan 45539.1.1 ity of 3.412.2.7 [place] .3.553842 MD [facility] 2022-11-21 2022-11-21 Documentat Jorge Alberto, 1.2.840.1 [id number] Univers 00:00:00 00:00:00 ion Fouzia 64778.1.1 ity of 3.412.2.7 [place] .3.600124 MD [facility] 2022-11-21 2022-11-21 Documentat Jorge Alberto, 1.2.840.1 [id number] 085 [id number] Univers 00:00:00 00:00:00 ion Fouzia 85497.1.1 ity of 3.412.2.7 [place] .3.056984 MD [facility] 2022-11-19 2022-11-19 Orders Abouharb, 1.2.840.1 [id number] 1101 [id number] Univers 00:00:00 00:00:00 Only Sausan 02619.1.1 ity of 3.412.2.7 [place] .3.905043 MD [facility] 2022-11-19 2022-11-19 Orders Abouharb, 1.2.840.1 [id number] 1101 [id number] Univers 00:00:00 00:00:00 Only Sausan 94158.1.1 ity of 3.412.2.7 [place] .3.443164 MD [facility] 2022-11-18 2022-11-18 Edis Chauhan 1.2.840.1 [id number] [id number] Univers 00:00:00 00:00:00 Only Ashanti 70932.1.1 ity of 3.412.2.7 [place] .3.083639 MD [facility] 2022-11-18 2022-11-18 Edis Chauhan 1.2.840.1 [id number] 92394 [id number] Univers 00:00:00 00:00:00 Only Ashanti 91547.1.1 ity of 3.412.2.7 [place] .3.311089 MD [facility] 2022-11-15 2022-11-15 Outpatient DAYSI ARELLANO MDA MDA [id number] 11:02:24 11:02:24 [facility]-15 2022-11-15 Edis Chauhan 1.2.840.1 [id number] Univers 00:00:00 00:00:00 Only Ashanti 30498.1.1 ity of 3.412.2.7 [place] .3.257453 MD [facility] 2022-11-15 2022-11-15 Refill Abouharb, 1.2.840.1 [id number] 1101 [id number] Univers 00:00:00 00:00:00 Sausan 35384.1.1 ity of 3.412.2.7 [place] .3.451152 MD [facility] 2022-11-15 2022-11-15 Orders Damir, 1.2.840.1 [id number] Univers 00:00:00 00:00:00 Only Natasha 87653.1.1 ity of 3.412.2.7 [place] .3.116147 MD [facility] 2022-11-15 2022-11-15 Orders Luciano, C 1.2.840.1 [id number] Univers 00:00:00 00:00:00 Only Ashanti 58347.1.1 ity of 3.412.2.7 [place] .3.309712 MD [facility] 2022-11-15 2022-11-15 Refill Abouharb, 1.2.840.1 [id number] 1101 [id number] Univers 00:00:00 00:00:00 Sausan 66612.1.1 ity of 3.412.2.7 [place] .3.113072 MD [facility] 2022-11-15 2022-11-15 Orders Damir, 1.2.840.1 [id number] Univers 00:00:00 00:00:00 Only Natasha 00545.1.1 ity of 3.412.2.7 [place] .3.612569 MD [facility] 2022-11-13 2022-11-13 Telemedici Abouharb, 1.2.840.1 [id number] 1 [id number] Univers 14:20:00 14:40:00 ne Sausan 66717.1.1 ity of 3.412.2.7 [place] .3.190839 MD [facility] 2022-11-13 2022-11-13 Telemedici Abouharb, 1.2.840.1 [id number] 1 [id number] Univers 14:20:00 14:40:00 ne Sausan 86939.1.1 ity of 3.412.2.7 [place] .3.100866 MD [facility] 2022-11-08 2022-11-08 Ancillary EL Abouharb, 1.2.840.1 [id number] 11 [id number] Univers 12:10:00 14:35:00 Procedure Sausan 43261.1.1 it y of 3.412.2.7 [place] .3.451638 MD [facility] 2022-11-08 2022-11-08 Ancillary Abouharb, 1.2.840.1 [id number] 11 [id number] Univers 12:10:00 14:35:00 Procedure Sausan 96458.1.1 it y of 3.412.2.7 [place] .3.460460 MD [facility] 2022-11-08 2022-11-08 Ancillary EL Abouharb, 1.2.840.1 [id number] 11 [id number] Univers 11:30:00 12:00:00 Procedure Sausan 94689.1.1 it y of 3.412.2.7 [place] .3.328625 MD [facility] 2022-11-08 2022-11-08 Ancillary Abouharb, 1.2.840.1 [id number] 11 [id number] Univers 11:30:00 12:00:00 Procedure Sausan 62847.1.1 it y of 3.412.2.7 [place] .3.017959 MD [facility] 2022-11-08 2022-11-08 Ancillary EL Abouharb, 1.2.840.1 [id number] 11 [id number] Univers 09:00:00 09:30:00 Procedure Sausan 21745.1.1 it y of 3.412.2.7 [place] .3.909441 MD [facility] 2022-11-08 2022-11-08 Ancillary Abouharb, 1.2.840.1 [id number] 11 [id number] Univers 09:00:00 09:30:00 Procedure Marcello 93012.1.1 it y of 3.412.2.7 [place] .3.235367 MD [facility] 2022-11-08 2022-11-08 Telephone Jorge Alberto, 1.2.840.1 [id number] 1101 [id number] Univers 00:00:00 00:00:00 Fouzia 80038.1.1 ity of 3.412.2.7 [place] .3.081684 MD [facility] 2022-11-08 2022-11-08 Documentat Jorge Alberto, 1.2.840.1 [id number] [id number] Univers 00:00:00 00:00:00 ion Fouzia 56979.1.1 ity of 3.412.2.7 [place] .3.603904 MD [facility] 2022-11-08 2022-11-08 Travel 1.2.840.1 1.2.134.931 6395 [id number] Univers 00:00:00 00:00:00 33381.1.1 350.1.13.41 ity of 3.412.2.7 2.[place].7.3.698 [place]3.902564 084.8 MD [facility] 2022-11-08 2022-11-08 Telephone Jorge Alberto, 1.2.840.1 [id number] 1101 [id number] Univers 00:00:00 00:00:00 Fouzia 21378.1.1 ity of 3.412.2.7 [place] .3.868946 MD [facility] 2022-11-08 2022-11-08 Documentat Jorge Alberto, 1.2.840.1 [id number] 019 [id number] Univers 00:00:00 00:00:00 ion Fouzia 25249.1.1 ity of 3.412.2.7 [place] .3.816619 MD Kong[facility] 2022-11-08 2022-11-08 Travel 1.2.840.1 1.2.779.512 3037 [id number] Univers 00:00:00 00:00:00 48847.1.1 350.1.13.41 ity of 3.412.2.7 [place].7.3.698 [place] .3.569440 084.8 MD [facility] 2022-10-29 2022-10-29 Follow-Up EL Abouharb, 1.2.840.1 [id number] 11 [id number] Univers 13:00:00 16:01:05 Sausan 90180.1.1 ity of 3.412.2.7 [place] .3.554789 MD [facility] 2022-10-29 2022-10-29 Follow-Up Koryarb, 1.2.840.1 [id number] 11 [id number] Univers 13:00:00 16:01:05 Marcello 93330.1.1 ity of 3.412.2.7 [place] .3.958724 MD [facility] 2022-10-29 2022-10-29 Travel 1.2.840.1 1.2.028.922 7410 [id number] Univers 00:00:00 00:00:00 55831.1.1 350.1.13.41 ity of 3.412.2.7 [place].7.3.698 [place] .3.168261 084.8 MD [facility] 2022-10-29 2022-10-29 Travel 1.2.840.1 1.2.655.316 7675 [id number] Univers 00:00:00 00:00:00 28832.1.1 350.1.13.41 ity of 3.412.2.7 2.2.7.3.698 [place] .3.190667 084.8 MD [facility] 2022-10-25 2022-10-25 Telemedici EL Wilbertoshaheen 1.2.840.1 [id number] Univers 14:20:00 14:26:35 ne a, 59360.1.1 ity of [place]han[place] 3.412.2.7 [place] .3.480131 MD [facility] 2022-10-25 2022-10-25 Telemroyer Rees 1.2.840.1 [id number] Univers 14:20:00 14:26:35 ne a, 98664.1.1 ity of [facility] 3.412.2.7 [place] .3.730031 MD [facility] 2022-10-25 2022-10-25 Ancillary EL Aboarb, 1.2.840.1 [id number] 11 [id number] Univers 09:00:00 11:30:00 Procedure Sausan 35567.1.1 it y of 3.412.2.7 [place] .3.870266 MD [facility] 2022-10-25 2022-10-25 Ancillary Abouharb, 1.2.840.1 [id number] 11 [id number] Univers 09:00:00 11:30:00 Procedure Sausan 13704.1.1 it y of 3.412.2.7 [place] .3.979980 MD [facility] 2022-10-25 2022-10-25 Travel 1.2.840.1 1.2.641.862 9661 [id number] Univers 00:00:00 00:00:00 31257.1.1 350.1.13.41 ity of 3.412.2.7 2.2.7.3.698 [place] .3.518782 084.8 MD [facility] 2022-10-25 2022-10-25 Travel 1.2.840.1 1.2.114.090 3421 [id number] Univers 00:00:00 00:00:00 15712.1.1 350.1.13.41 ity of 3.412.2.7 2.2.7.3.698 [place] .3.960831 084.8 MD [facility] 2022-10-23 2022-10-23 Outpatient EL ABOUHARB, MDA MDA [id number] 12:14:35 12:45:02 MARCELLO Leandro o n 2022-10-23 2022-10-23 Outpatient EL ABOUHARB, [facility] [id number] 12:26:49 12:26:49 MARCELLO Leandro o n 2022-10-23 2022-10-23 Travel 1.2.840.1 1.2.758.822 7723 [id number] Univers 00:00:00 00:00:00 56690.1.1 350.1.13.41 ity of 3.412.2.7 2.2.7.3.698 [place] .3.528375 084.8 MD [facility] 2022-10-23 2022-10-23 Travel 1.2.840.1 1.2.641.793 3255 [id number] [facility] 00:00:00 00:00:00 72773.1.1 350.1.13.41 ity of 3.412.2.7 2.[place].7.3.698 [place] .3.747628 084.8 [facility]-08 2022-10-08 Infusion EL Abouharb, 1.2.840.1 [id number] Univers 11:30:00 12:07:56 Sausan 50690.1.1 ity of 3.412.2.7 [place] .3.112288 MD [facility] 2022-10-08 2022-10-08 Infusion Abouharb, 1.2.840.1 [id number] 076 [id number] Univers 11:30:00 12:07:56 Sausan 09668.1.1 ity of 3.412.2.7 [place] .3.759653 MD [facility] 2022-10-08 2022-10-08 Follow-Up EL Abouharb, 1.2.840.1 [id number] 10 [id number] [facility] 10:20:00 11:47:48 Sausan 35811.1.1 ity of 3.412.2.7 [place] .3.927693 MD [facility] 2022-10-08 2022-10-08 Follow-Up Abouharb, 1.2.840.1 [id number] 10 [id number] [facility] 10:20:00 11:47:48 Marcello 46795.1.1 ity of 3.412.2.7 [place] .3.462578 MD [facility] 2022-10-08 2022-10-08 Outpatient EL ABOUHARB, [facility] [id number] 09:17:40 09:33:27 MARCELLO Leandro grant 2022-10-08 2022-10-08 Travel 1.2.840.1 1.2.891.232 0814 [id number] Univers 00:00:00 00:00:00 05466.1.1 350.1.13.41 ity of 3.412.2.7 2.[place].7.3.698 [place] .3.981919 084.8 MD [facility] 2022-10-08 2022-10-08 Oumar Luciano, C 1.2.840.1 [id number] [id number] Univers 00:00:00 00:00:00 Only Ashanti 42864.1.1 ity of 3.412.2.7 [place] .3.066840 MD [facility] 2022-10-08 2022-10-08 Travel 1.2.840.1 1.2.980.264 0424 [id number] Univers 00:00:00 00:00:00 52389.1.1 350.1.13.41 ity of 3.412.2.7 2.2.7.3.698 [place] .3.943068 084.8 MD [facility] 2022-10-08 2022-10-08 Oumar Luciano, C 1.2.840.1 [id number] Univers 00:00:00 00:00:00 Only Ashanti 90766.1.1 ity of 3.412.2.7 [place] .3.255545 MD [facility] 2022-10-02 2022-10-02 Refill Abouharb, 1.2.840.1 [id number] 1099 [id number] Univers 00:00:00 00:00:00 Sausan 54279.1.1 ity of 3.412.2.7 [place] .3.982213 MD [facility] 2022-10-02 2022-10-02 Refnorm Franklinarb, 1.2.840.1 [id number] 1099 [id number] Univers 00:00:00 00:00:00 Sausan 82520.1.1 ity of 3.412.2.7 [place] .3.974905 MD [facility] 2022-10-01 2022-10-01 Telephone Nehemias, 1.2.840.1 [id number] 1099 [id number] Univers 00:00:00 00:00:00 Macaela T 13513.1.1 it y of 3.412.2.7 [place] .3.438608 MD [facility] 2022-10-01 2022-10-01 Edis Chauhan 1.2.840.1 [id number] Univers 00:00:00 00:00:00 Only Ashanti 60647.1.1 ity of 3.412.2.7 [place] .3.140035 MD [facility] 2022-10-01 2022-10-01 Documentat Champ, 1.2.840.1 [id number] Univers 00:00:00 00:00:00 ion Delores 39111.1.1 ity of 3.412.2.7 [place] .3.365563 MD [facility] 2022-10-01 2022-10-01 Telephone Nehemias, 1.2.840.1 [id number] 1099 [id number] Univers 00:00:00 00:00:00 Macaela T 51224.1.1 it y of 3.412.2.7 [place] .3.583266 MD [facility] 2022-10-01 2022-10-01 Edis Chauhan 1.2.840.1 [id number] Univers 00:00:00 00:00:00 Only Ashanti 02505.1.1 ity of 3.412.2.7 [place] .3.071279 MD [facility] 2022-10-01 2022-10-01 Documentisabella Oakes, 1.2.840.1 [id number] Univers 00:00:00 00:00:00 ion Delores 34901.1.1 ity of 3.412.2.7 [place] .3.753195 MD [facility] 2022-09-26 2022-09-26 Consult Champ, 1.2.840.1 [id number] 066 [id number] Univers 14:30:00 15:24:44 Delores 79301.1.1 ity of 3.412.2.7 [place] .3.319939 MD [facility] 2022-09-26 2022-09-26 Consult DAYSI Oakes, 1.2.840.1 [id number] Univers 14:30:00 15:24:44 Delores 46250.1.1 ity of 3.412.2.7 [place] .3.641920 MD [facility] 2022-09-26 2022-09-26 Oumar Oakes, 1.2.840.1 [id number] 023 [id number] Univers 00:00:00 00:00:00 Only Delores 49969.1.1 ity of 3.412.2.7 [place] .3.886807 MD [facility] 2022-09-26 2022-09-26 Travel 1.2.840.1 1.2.490.499 0003 [id number] Univers 00:00:00 00:00:00 06041.1.1 350.1.13.41 ity of 3.412.2.7 2.[place].7.3.698 [place] .3.342900 084.8 MD [facility] 2022-09-26 2022-09-26 Oumar Oakes, 1.2.840.1 [id number] 890 [id number] Univers 00:00:00 00:00:00 Only Delores 35347.1.1 ity of 3.412.2.7 [place] .3.223174 MD [facility] 2022-09-26 2022-09-26 Travel 1.2.840.1 1.2.460.073 6177 [id number] [facility] 00:00:00 00:00:00 81862.1.1 350.1.13.41 ity of 3.412.2.7 2.2.7.3.698 [place] .3.222434 084.8 MD [facility] 2022-09-25 2022-09-25 Telemedici Koyyalagunt 1.2.840.1 [id number] Univers 14:20:00 14:40:00 ne a, 41951.1.1 ity of [place].412.2.7 [place] .3.469870 MD [facility] 2022-09-25 2022-09-25 Telemedici Koyyalagunt 1.2.840.1 [id number] Univers 14:20:00 14:40:00 ne a, 20238.1.1 ity of [place].412.2.7 [place] .3.503064 MD [facility] 2022-09-10 2022-09-10 Edis Chauhan 1.2.840.1 [id number] Univers 00:00:00 00:00:00 Only Ashanti 49468.1.1 ity of 3.412.2.7 [place] .3.163727 MD [facility] 2022-09-10 2022-09-10 Orders Ever, C 1.2.840.1 [id number] Univers 00:00:00 00:00:00 Only Ashanti 21275.1.1 ity of 3.412.2.7 [place] .3.425485 MD [facility] 2022-09-09 2022-09-09 Telephone Antoine, 1.2.840.1 [id number] 10 [id number] Univers 00:00:00 00:00:00 Sausan 10141.1.1 ity of 3.412.2.7 [place] .3.493534 MD [facility] 2022-09-09 2022-09-09 Telephone Abouharb, 1.2.840.1 [id number] 10 [id number] Univers 00:00:00 00:00:00 Sausan 05787.1.1 ity of 3.412.2.7 [place] .3.587070 MD [facility] 2022-09-05 2022-09-05 Infusion Abouharb, 1.2.840.1 [id number] 779 [id number] Univers 11:45:00 13:27:21 Sausan 13733.1.1 ity of 3.412.2.7 [place] .3.591873 MD [facility] 2022-09-05 2022-09-05 Infusion EL Abouharb, 1.2.840.1 [id number] 901 [id number] Univers 11:45:00 13:27:21 Sausan 10904.1.1 ity of 3.412.2.7 [place] .3.414752 MD [facility] 2022-09-05 2022-09-05 Office Abouharb, 1.2.840.1 [id number] 1098 [id number] Univers 11:00:00 12:27:27 Visit Sausan 46012.1.1 ity of 3.412.2.7 [place] .3.322867 MD [facility] 2022-09-05 2022-09-05 Office EL Abouharb, 1.2.840.1 [id number] 1098 [id number] Univers 11:00:00 12:27:27 Visit Sausan 38337.1.1 ity of 3.412.2.7 [place] .3.529799 MD [facility] 2022-09-05 2022-09-05 Outpatient EL ABOUHARB, [facility] [id number] 10:27:19 10:29:05 SAUSAN Leandro [facility] 2022-09-05 2022-09-05 Travel 1.2.840.1 1.2.791.786 4219 [id number] Univers 00:00:00 00:00:00 91207.1.1 350.1.13.41 ity of 3.412.2.7 2.[place]7.3.698 [place] .3.102895 084.8 MD [facility] 2022-09-05 2022-09-05 Travel 1.2.840.1 1.2.431.200 9553 [id number] Univers 00:00:00 00:00:00 23388.1.1 350.1.13.41 ity of 3.412.2.7 2.2.7.3.698 [place] .3.557480 084.8 MD [facility] 2022-09-03 2022-09-03 Emergency ER Ben, 1.2.840.1 [id number] 1098 [id number] Univers 18:14:00 19:25:00 Victorino 57767.1.1 ity of 3.412.2.7 [place] .3.099761 MD [facility] 2022-09-03 2022-09-03 Travel 1.2.840.1 1.2.023.292 7849 [id number] Univers 00:00:00 00:00:00 36653.1.1 350.1.13.41 ity of 3.412.2.7 2.2.7.3.698 [place] .3.209977 084.8 MD [facility] 2022-09-03 2022-09-03 Telephone Irvin, 1.2.840.1 [id number] Univers 00:00:00 00:00:00 Mio Finnegan 26478.1.1 ity of 3.412.2.7 [place] .3.681826 MD [facility] 2022-08-28 2022-08-28 Orders Edis Luciano 1.2.840.1 [id number] [id number] Univers 00:00:00 00:00:00 Only Ashanti 50177.1.1 ity of 3.412.2.7 [place] .3.591525 MD [facility] 2022-08-26 2022-08-26 Telemedici Martha, 1.2.840.1 [id number] 781 [id number] Univers 14:00:00 14:30:00 ne Mehrad 66102.1.1 ity of 3.412.2.7 [place] .3.130039 MD [facility] 2022-08-22 2022-08-22 Outpatient EL SHED, [facility] [id number] 15:37:43 15:46:23 VIVIAN grant 2022-08-22 2022-08-22 Ancillary Edis Mclean 1.2.840.1 [id number] 056 [id number] Univers 14:00:00 14:45:00 Procedure Ashanti 51962.1.1 it y of 3.412.2.7 [place] .3.357992 MD Maria [facility] 2022-08-22 2022-08-22 Ancillary DAYSI Granados, 1.2.840.1 [id number] Univers 13:00:00 14:00:00 Procedure Vivian Mejia 00794.1.1 i ty of 3.412.2.7 [place] .3.309792 MD Maria [facility] 2022-08-22 2022-08-22 Edis Chauhan 1.2.840.1 [id number] Univers 00:00:00 00:00:00 Only Ashanti 49121.1.1 ity of 3.412.2.7 [place] .3.571136 MD Maria [facility] 2022-08-22 2022-08-22 Travel 1.2.840.1 1.2.951.931 [id number] Univers 00:00:00 00:00:00 56099.1.1 350.1.13.41 ity of 3.412.2.7 2.[place].7.3.698 [place] .3.127436 084.8 MD Maria [facility] 2022-08-21 2022-08-21 Edis Chauhan 1.2.840.1 [id number] Univers 00:00:00 00:00:00 Only Ashanti 00073.1.1 ity of 3.412.2.7 [place] .3.807500 MD .8 [facility] 2022-08-20 Telephone Nehemias, 1.2.840.1 [id number] Univers 00:00:00 00:00:00 Carlos Finnegan 97983.1.1 it y of 3.412.2.7 [place] .3.497658 .8 [facility] 2022-08-14 2022-08-14 Outpatient Edis MCLEAN MDA MDA [id number] 09:29:12 09:29:12 Leandro rudy gibbs 2022-08-14 2022-08-14 Outpatient [facility] MDA MDA [id number] 08:32:37 09:22:28 Leandro Brizuela I 2022-08-06 2022-08-06 Outpatient [facility], JAMIE MDA [id number] 15:48:01 16:23:01 MARCELLO Farrellers o sai 2022-08-06 2022-08-06 Outpatient KORYALY, JAMIE MDA [id number] 10:54:14 13:02:14 MARCELLO Farrellers o sai 2022-08-06 2022-08-06 Outpatient KORYALY, JAMIE MDA [id number] 10:35:23 10:45:37 MARCELLO Farrellers o sai 2022-08-02 2022-08-02 Outpatient Edis MCLEAN MDA MDA [id number] 19:39:48 19:39:48 Leandro o n 2022-08-02 2022-08-02 [facility] MDA MDA [id number] 13:38:27 13:38:27 MARCELLO Farrellers o sai 2022-07-10 2022-07-10 Outpatient KORYALY, MDA MDA [id number] 14:11:28 23:59:00 MARCELLO Farrellers o sai 2022-07-10 2022-07-10 Outpatient EL ADIBI, [facility] [id number] 13:26:00 20:04:00 ANASTACIA Farrellers o n 2022-07-10 2022-07-10 Outpatient EL MDA MDA [id number] 17:38:59 17:38:59 Leandro o sai 2022-07-08 2022-07-08 Outpatient EL SHED, MDA MDA [id number] MD 07:45:54 07:45:54 VIVIAN Farrellers o n 2022-07-04 2022-07-04 Outpatient EL ABOUHARB, MDA MDA [id number] 10:14:37 11:15:24 MARCELLO Farrellers o n 2022-07-04 2022-07-04 Outpatient EL ADIBI, MDA MDA [id number] MD 08:23:35 10:10:57 ANASTACIA Farrellers o sai 2022-07-04 2022-07-04 Outpatient EL SHED, MDA MDA [id number] MD 08:05:20 08:09:07 VIVIAN Reeves o sai 2022-06-25 2022-06-25 Outpatient LUCIANO, C MDA MDA [id number] 14:15:44 14:15:44 Leandro o sai 2022-06-25 2022-06-25 Outpatient LUCIANO, C MDA MDA [id number] 14:02:10 14:03:34 Leandro rudy gibbs 2022-05-23 2022-05-23 Outpatient EL ABOUHARB, MDA MDA [id number] 11:28:09 12:29:12 MARECLLO Farrellers o sai 2022-05-23 2022-05-23 Outpatient EL ABOUHARB, MDA MDA [id number] 11:13:53 11:17:05 MARCELLO Farrellers o sai 2022-05-23 2022-05-23 Outpatient EL ABOARB, MDA MDA [id number] 09:48:02 11:11:36 MARCELLO Farrellers o sai 2022-03-28 2022-03-28 Emergency [facility] 1.2.670.003 [id number] Univers 19:33:00 20:22:00 Dayan KELLEY 350.1.13.10 [facility] 4.2.7.2.686 [facility] [id number] [place] [id number] [place] 2022-03-28 2022-03-28 Emergency X MALAIKA, [facility] ERT [id number] Univers 19:33:00 20:22:00 DAYAN abbasi [facility] 2022-03-06 2022-03-06 Outpatient EL MITZIHOLD, MDA MDA [id number] 10:17:01 11:51:07 EDU gibbs 2022-02-27 2022-02-27 Outpatient EL ADIBI, [facility] [id number] MD 12:06:00 17:44:00 ANASTACIA gibbs 2022-02-27 2022-02-27 Outpatient EL MDA MDA [id number] 14:52:06 14:52:06 Leandro gibbs 2022-02-26 2022-02-26 Outpatient EL SHED, MDA MDA [id number] 07:04:15 07:04:15 VIVIAN gibbs 2022-02-25 2022-02-25 Outpatient EL ABOUHARB, MDA MDA [id number] 13:39:26 13:42:23 MARCELLO Reeves o sai 2022-02-25 2022-02-25 Outpatient EL SHED, MDA MDA [id number] 13:30:42 13:39:02 VIVIAN gibbs 2022-02-18 2022-02-18 Outpatient EL LOGAN, MDA MDA [id number] 14:22:10 14:22:10 CHIKA Reeves o sai 2022-02-04 2022-02-04 Outpatient EL ADIBI, MDA MDA [id number] 14:03:25 15:21:51 ANASTACIA Reeves o sai 2022-01-29 2022-01-29 Outpatient EL ABOUHARB, MDA MDA [id number] 09:10:16 10:07:29 MARCELLO Reeves o sai 2022-01-23 2022-01-23 Outpatient EL ABOUHARB, MDA MDA [id number] 14:26:25 14:26:25 MARCELLO Reeves o sai 2022-01-17 2022-01-17 Outpatient EL ABOUHARB, MDA MDA [id number] 10:21:12 11:28:20 MARCELLO Reeves o sai 2022-01-15 2022-01-15 Outpatient EL ABOUHARB, MDA MDA [id number] 11:38:38 11:38:38 SAUSASai Leandro o n 2022-01-15 2022-01-15 Outpatient EL ABOUHARB, MDA MDA [id number] 08:57:03 08:57:03 USASai Leandro o n 2022-01-15 2022-01-15 Outpatient EL ABOUHARB, MDA MDA [id number] 08:56:15 08:56:15 SAUSASai FarrellLeandro o n 2022-01-15 2022-01-15 Outpatient EL ABOUHARB, MDA MDA [id number] 08:38:16 08:41:26 SACALEB Farrellers o n 2021-12-28 2021-12-28 Outpatient EL ABOUHARB, MDA MDA [id number] 12:52:31 12:52:31 MARCELLO Farrellers o n 2021-12-28 2021-12-28 Outpatient EL ABOUHARB, MDA MDA [id number] MD 12:52:31 12:52:31 USASai FarrellLeandro o n 2021-12-28 2021-12-28 Outpatient EL ABOUHARB, MDA MDA [id number] MD 12:52:30 12:52:30 USASai FarrellLeandro o n 2021-12-28 2021-12-28 Outpatient EL ABOUHARB, MDA MDA [id number] 12:52:29 12:52:29 MARCELLO Farrellers o n 2021-12-11 2021-12-11 Outpatient EL ABOUHARB, MDA MDA [id number] 12:06:34 12:06:34 SAUSASai Leandro o n 2021-11-22 2021-11-22 Outpatient EL ABOUHARB, MDA MDA [id number] 16:07:25 16:19:15 SAUSAN Leandro o n 2021-11-22 2021-11-22 Outpatient EL ABOUHARB, MDA MDA [id number] 13:10:43 16:09:56 SAUSAN Leandro o n 2021-11-22 2021-11-22 Outpatient EL ABOUHARB, MDA MDA [id number] 15:26:00 15:26:00 MARCELLO Leandro o n 2021-11-22 2021-11-22 Outpatient EL KORYALY, JAMIE [facility] [id number] 15:25:56 15:25:56 SACALEB Leandro o n 2021-11-22 2021-11-22 Outpatient DAYSI SCHULTZ, JAMIE MDA [id number] 15:25:53 15:25:53 SAUSASai Leandro o n 2021-11-22 2021-11-22 Outpatient EL KORYALY, JAMIE [facility] [id number] 15:25:51 15:25:51 SACALEB Leandro o n 2021-11-22 2021-11-22 Outpatient JAMIE [facility] [id number] MD 13:00:50 13:16:52 Leandro o n 2021-05-07 2021-05-07 Outpatient AYDA ALEXANDER [id number] [facility] 16:49:00 16:49:00 CHARELS 09 [facility] 2021-01-12 2021-01-12 Outpatient DAYSI VILLALPANDO [facility] [id number] [facility] 12:00:00 12:00:00 GILBERT 21 [facility] 2020-01-01 2020-01-01 Emergency MANUS, ERIBERTO [facility] [id number] [place] 00:00:00 00:00:[address] Results Test Description Test Time Test Comments Results Result Comments Source POC Glucose Screen - Fingerstick 2023-09-03 13:30:25 Test Item Value Reference Range Interpretation Comme nts Glucose Screen (test code = 77 mg/dL 70-99 59060-0) POC Sample Type (test code = Capillary 3607834631) LAZARO (test code = LAZARO) Capillary blood samples, e.g. obtained by fingerstick, may have inaccurate results in patients with decreased peripheral blood flow. Method description: All results are measured using Electrochemistry test methodology. The glucose in the sample mixes with the reagents on the test strip. The reaction produces an electric current. The amount of current produced is proportional to the glucose concentration in the blood. All POC Glucose screen test results, including critical values, must be interpreted and evaluated in the context of the patients' clinical findings. It is recommended to confirm any questionable test results by core lab methodology. [facility] Glucose Screen - Fingerstick 2023-09-03 13:30:25 Test Item Value Reference Range Interpretation Comments Glucose Screen 77 mg/dL 70-99 (test code = 35004-8) POC Sample Type Capillary (test code = 8104190162) LAZARO (test code = Capillary blood samples, LAZARO) e.g. obtained by fingerstick, may have inaccurate results in patients with decreased peripheral blood flow. Method description: All results are measured using Electrochemistry test methodology. The glucose in the sample mixes with the reagents on the test strip. The reaction produces an electric current. The amount of current produced is proportional to the glucose concentration in the blood. All POC Glucose screen test results, including critical values, must be interpreted and evaluated in the context of the patients' clinical findings. It is recommended to confirm any questionable test results by core lab methodology. [facility]ion[facility] [id number] 16:15:50 Test Item Value Reference Range Interpretation Comments Final Report (test No Legionella species code = 8488) isolated [facility] HospitalLegionella [id number] 16:15:50 Test Item Value Reference Range Interpretation Comments Final Report (test No Legionella species code = 8488) isolated [facility] Peripheral 2023-08-31 04:10:09 Test Item Value Reference Range Interpretation Comments Final Report (test No growth code = 8488) LAZARO (test code = One or both cultures LAZARO) bottles underfilled (< 5ml). This will result in decreased sensitivity in pathogen detection. [facility] 2023-08-31 04:10:09 Test Item Value Reference Range Interpretation Comments Final Report (test No growth code = 8488) LAZARO (test code = One or both cultures LAZARO) bottles underfilled (< 5ml). This will result in decreased sensitivity in pathogen detection. [facility] HospitalHemoglobin [id number] 17:24:56 Test Item Value Reference Range Interpretation Comments A1C (test code = 4548-4) 6.1 % 4.3-5.6 H HbA 1c values >=6.5% are diagnostic of diabetes mellitus.Diagno sis should be confi rmed by repeat testing.Therape uti Action suggeste d: >8.0% HbA1c; Go al oftherapy: <7.0 % HbA1c Lab Interpretation (test Abnormal code = 15767-1) [facility] HospitalHemoglobin [id number] 17:24:56 Test Item Value Reference Range Interpretation Comments A1C (test code = 4548-4) 6.1 % 4.3-5.6 H HbA 1c values >=6.5% are diagnostic of diabetes mellitus.Diagno sis should be confi rmed by repeat testing.Therape utic Action suggeste d: >8.0% HbA1c; Go al oftherapy: <7.0 % HbA1c Lab Interpretation (test Abnormal code = 33762-9) [facility] Add-On Test 2023-08-29 16:55:01 Test Item Value Reference Range Interpretation Comments Ordered (test code = 6568) Test Added Test Needed (test code = 7604) Hemoglobin A1c [facility] Add-On Test 2023-08-29 16:55:01 Test Item Value Reference Range Interpretation Comments Ordered (test code = 6568) Test Added Test Needed (test code = 7604) Hemoglobin A1c [facility] HospitalFractionated [id number] 12:55:45 Test Item Value Reference Range Interpretation Comments Bili Total (test 0.4 mg/dL <=1.2 Indocyanine Green (ICG) code = 1974-) may cause fal sely elevated biliru bin results. Total and direct bilirubin must not be measured from s amples containing indo cyanine green. False el evation of total bilirubin can be seen in patient s with IgG concentrations above 28 g/L. Bili Direct (test <=0.3 Indocyanin e Green (ICG) code = 1967-) may cause fal sely elevated biliru bin results. Total and direct bilirubin must not be measured from s amples containing indo cyanine green. Bili Indirect (test See Note 0.0-0.9 Unable t o calculate code = 1970-) Indirect Bili reid result due to some par ameters are outside rep ortable range [facility] HospitalFractionated [id number] 12:55:45 Test Item Value Reference Range Interpretation Comments Bili Total (test 0.4 mg/dL <=1.2 Indocyanine Green (ICG) code = 1974-12) may cause fal sely elevated biliru bin results. Total and direct bilirubin must not be measured from s amples containing indo cyanine green. False el evation of total bilirubin can be seen in patient s with IgG concentrations above 28 g/L. Bili Direct (test <=0.3 Indocyanin e Green (ICG) code = 1968-05) may cause fal sely elevated biliru bin results. Total and direct bilirubin must not be measured from s amples containing indo cyanine green. Bili Indirect (test See Note 0.0-0.9 Unable t o calculate code = 1970-11) Indirect Bili reid result due to some par ameters are outside rep ortable range [facility] HospitalCalcium [id number] 12:55:41 Test Item Value Reference Range Interpretation Comments Calcium Lvl (test code = 79523-9) 10.3 mg/dL 8.4-10.2 H Lab Interpretation (test code = Abnormal 17244-6) [facility] HospitalCal[facility] [id number] 12:55:41 Test Item Value Reference Range Interpretation Comments Calcium Lvl (test code = 93297-6) 10.3 mg/dL 8.4-10.2 H Lab Interpretation (test code = Abnormal 92703-1) [facility] HospitalGlomerular Filtration Rate 2023-08-29 12:55:40 Test Item Value Reference Range Interpretation Comments eGFR (test code = 105 See_Comment The eGFRcr [place] 78580-2) the 2020 CKD-EP I creatinine equation using creatinine, patient's age, and sex for adults 18 years of age and older. Other fa ctors, especially musc le mass, may affect accuracy and need to be considered.A ccording to the Kidney Dise ase: Improving Global Outcomes (KDIGO) CKD Work Group 2012 Clinical Practice Guidel ine, chronic kidney disease (CKD) is defined as the abnormalities of kidney struc ture or function, prese nt for more than 3 months, with implications fo r health. CKD should be class ified by cause, GFR sarah gory, and albuminuria cat egory. KDIGO guidelines prov rosalino the following GFR c ategoriesStage Description GFR mL/min/1.73 m2G1* Normal or high >= 90G2* Mildly decrease d 60-89G3a Mildly to moder ately decreased 45-59 G3b Moderately to severely dec reased 30-44G4 Severely decrea sed 15-29G5 Kidney failure <15*In the absence of evid ence of kidney damage, neither G1 nor G2 fulfill criteri a for CKD. [Automated mess age] The system which [employer] nerated this result transmit mariana reference range: >=60 mL/ min/1.73 sq. m. The referenc e range was not used to int erpret this result as demian l/abnormal. [facility] HospitalGlomerular Filtration Rate 2023-08-29 12:55:40 Test Item Value Reference Range Interpretation Comments eGFR (test code = 105 See_Comment The [place]GFRcr [place] 49479-4) the 2020 CKD-EP I creatinine equation using creatinine, patient's age, and sex for adults 18 years of age and older. Other fa ctors, especially musc le mass, may affect accuracy and need to be considered.A ccording to the Kidney Dise ase: Improving Global Outcomes (KDIGO) CKD Work Group 2012 Clinical Practice Guidel ine, chronic kidney disease (CKD) is defined as the abnormalities of kidney struc ture or function, prese nt for more than 3 months, with implications fo r health. CKD should be class ified by cause, GFR sarah gory, and albuminuria cat egory. KDIGO guidelines prov rosalino the following GFR c ategoriesStage Description GFR mL/min/1.73 m2G1* Normal or high >= 90G2* Mildly decrease d 60-89G3a Mildly to moder ately decreased 45-59 G3b Moderately to severely dec reased 30-44G4 Severely decrea sed 15-29G5 Kidney failure <15*In the absence of evid ence of kidney damage, neither G1 nor G2 fulfill criteri a for CKD. [Automated Solasta age] The system which [employer] nerated this result transmit mariana reference range: >=60 mL/ min/1.73 sq. m. The referenc e range was not used to int erpret this result as demian l/abnormal. [facility] HospitalAlbumin [id number] 12:55:39 Test Item Value Reference Range Interpretation Comments Albumin Lvl (test code = 3.4 See_Comment L [A utomated message] 1751-05) The system [employer] generated this result transmitted ref erence range: 3.5 - 5. 2 gm/dL. The refe rence range was not u sed to interpret this result as normal/abnor mal. Lab Interpretation (test Abnormal code = 62615-6) [facility] HospitalAlbumin [id number] 12:55:39 Test Item Value Reference Range Interpretation Comments Albumin Lvl (test code = 3.4 See_Comment L [A utomated message] 1751-05) The system [employer] generated this result transmitted ref erence range: 3.5 - 5. 2 gm/dL. The refe rence range was not u sed to interpret this result as normal/abnor mal. Lab Interpretation (test Abnormal code = 37914-2) [facility] HospitalTotal [id number] 12:55:38 Test Item Value Reference Range Interpretation Comments Total Protein (test code = 2885-2) 6.9 g/dL 6.4-8.3 [facility] HospitalTotal [id number] 12:55:38 Test Item Value Reference Range Interpretation Comments Total Protein (test code = 2885-2) 6.9 g/dL 6.4-8.3 [facility] HospitalAspartate Aminotransferase 2023-08-29 12:55:37 Test Item Value Reference Range Interpretation Comments AST (test code = 1920-8) 27 U/L <=32 [facility] HospitalAspartate Aminotransferase 2023-08-29 12:55:37 Test Item Value Reference Range Interpretation Comments AST (test code = 1920-8) 27 U/L <=32 [facility] HospitalElectrolyte [id number] 12:55:35 Test Item Value Reference Range Interpretation Comments Sodium Lvl (test code = 141 See_Comment [Au tomated message] 5474-2) The system [employer] generated this result transmitted ref erence range: 136 - 14 5 mEq/L. The refe rence range was not u sed to interpret this result as normal/abnor mal. Potassium Lvl (test code 4.0 See_Comment [A utomated message] = 2823-3) The system [employer] generated this result transmitted ref erence range: 3.5 - 5. 1 mEq/L. The refe rence range was not u sed to interpret this result as normal/abnor mal. Chloride (test code = 99 See_Comment [Auto mated message] ) The system [employer] generated this result transmitted ref erence range: 98 - 107 mEq/L. The refe rence range was not u sed to interpret this result as normal/abnor mal. CO2 (test code = 2028-07) 30 See_Comment H [A utomated message] The system [employer] generated this result transmitted ref erence range: 22 - 29 mEq/L. The reference r gabriel was not used to interpret this result as normal/abnor mal. Anion Gap (test code = 12 See_Comment [Aut omated message] 04783-1) The system [employer] generated this result transmitted ref erence range: 4 - 14 m Eq/L. The reference r gabriel was not used to interpret this result as normal/abnor mal. Lab Interpretation (test Abnormal code = 09337-0) [facility] HospitalElectrolyte [id number] 12:55:35 Test Item Value Reference Range Interpretation Comments Sodium Lvl (test code = 141 See_Comment [Au tomated message] 9241-2) The system [employer] generated this result transmitted ref erence range: 136 - 14 5 mEq/L. The refe rence range was not u sed to interpret this result as normal/abnor mal. Potassium Lvl (test code 4.0 See_Comment [A utomated message] = 2823-3) The system [employer] generated this result transmitted ref erence range: 3.5 - 5. 1 mEq/L. The refe rence range was not u sed to interpret this result as normal/abnor mal. Chloride (test code = 99 See_Comment [Auto mated message] ) The system [employer] generated this result transmitted ref erence range: 98 - 107 mEq/L. The refe rence range was not u sed to interpret this result as normal/abnor mal. CO2 (test code = 2028-07) 30 See_Comment H [A utomated message] The system [employer] generated this result transmitted ref erence range: 22 - 29 mEq/L. The reference r gabriel was not used to interpret this result as normal/abnor mal. Anion Gap (test code = 12 See_Comment [Aut omated message] 82530-9) The system [employer] generated this result transmitted ref erence range: 4 - 14 m Eq/L. The reference r gabriel was not used to interpret this result as normal/abnor mal. Lab Interpretation (test Abnormal code = 09577-0) [facility] HospitalAlkaline [id number] 12:55:33 Test Item Value Reference Range Interpretation Comments Alk Phos (test code = 6768-6) 162 U/L 35-104 H Lab Interpretation (test code = Abnormal 28533-0) [facility] HospitalAlkaline [id number] 12:55:33 Test Item Value Reference Range Interpretation Comments Alk Phos (test code = 6768-6) 162 U/L 35-104 H Lab Interpretation (test code = Abnormal 86770-6) [facility] HospitalGlucose [id number] 12:55:32 Test Item Value Reference Range Interpretation Comments Glucose Level (test 90 mg/dL 70-99 Effectiv e 06/05/16, the code = 2345-7) glucose refer ence intervals have been updated based o n [place] [employer] felecia delines (Standards of M edical Care in Diabete s 2016. Diabetes Care 2 016; 39: S13-S22).Fastin g blood glucose:Normal: 70-99 mg/dLImpaired f asting glucose (increa sed risk for diabetes or pre-diabetes): 100-125 mg/dLDiabetes m ellitus: >/=126 mg/dL Ra ndom blood glucose:N ormal: 70-199 mg/dLNot e: Random glucose >100 mg /dL is associated with increased risk for diabetes [facility] HospitalGlucose [id number] 12:55:32 Test Item Value Reference Range Interpretation Comments Glucose Level (test 90 mg/dL 70-99 Effectiv e 06/05/16, the code = 2345-7) glucose refer ence intervals have been updated based o n [place] [employer] felecia delines (Standards of M edical Care in Diabete s 2016. Diabetes Care 2 016; 39: S13-S22).Fastin g blood glucose:Normal: 70-99 mg/dLImpaired f asting glucose (increa sed risk for diabetes or pre-diabetes): 100-125 mg/dLDiabetes m ellitus: >/=126 mg/dL Ra ndom blood glucose:N ormal: 70-199 mg/dLNot e: Random glucose >100 mg /dL is associated with increased risk for diabetes [facility] HospitalALT2023-10-20 12:55:31 Test Item Value Reference Range Interpretation Comments ALT (test code = 1742-6) 14 U/L <=33 [facility] HospitalALT2023-10-20 12:55:31 Test Item Value Reference Range Interpretation Comments ALT (test code = 1742-6) 14 U/L <=33 [facility].Serum [id number] 12:55:30 Test Item Value Reference Range Interpretation Comments Creatinine (test code = 2160-0) 0.57 mg/dL 0.51-0.95 [facility].Serum [id number] 12:55:30 Test Item Value Reference Range Interpretation Comments Creatinine (test code = 2160-0) 0.57 mg/dL 0.51-0.95 [facility] HospitalBUN2023-10-20 12:55:29 Test Item Value Reference Range Interpretation Comments BUN (test code = 3094-0) 11 mg/dL 6- [facility] HospitalBUN2023-10-20 12:55:29 Test Item Value Reference Range Interpretation Comments BUN (test code = 3094-0) 11 mg/dL - [facility] HospitalDifferential2023-10-20 12:31:17 Test Item Value Reference Range Interpretation Comments Neutrophil % (test code = 78.4 % 43.2-72.7 H 770-8) Lymphocyte % (test code = 13.1 % 16.8-46.2 L 736-9) Monocyte % (test code = 6.7 % 5.1-12.5 5905-5) Eosinophil % (test code = 0.5 % 0.4-6.3 713-8) Basophil % (test code = 0.2 % 0.2-1.4 706-2) IGRE % (test code = 1.1 % 0.1-1.5 IGRE % c ount 25423-1) includes Metamyelocytes, Myelocytes, and Promyelocytes. Neutrophil Abs (test code 4.41 K/uL 1.95-7.25 = 751-8) Lymphocyte Abs (test code 0.74 K/uL 1.01-3.24 L = 731-0) Monocyte Abs (test code = 0.38 K/uL 0.24-0.85 742-7) Eosinophil Abs (test code 0.03 K/uL 0.02-0.50 = 711-2) Basophil Abs (test code = 0.01 K/uL 0.02-0.09 L 704-7) IG Abs (test code = 0.06 K/uL 0.01-0.12 24756-7) Lab Interpretation (test Abnormal code = 50582-5) [facility] [id number] 12:31:17 Test Item Value Reference Range Interpretation Comments Neutrophil % (test code = 78.4 % 43.2-72.7 H 770-8) Lymphocyte % (test code = 13.1 % 16.8-46.2 L 736-9) Monocyte % (test code = 6.7 % 5.1-12.5 5905-5) Eosinophil % (test code = 0.5 % 0.4-6.3 713-8) Basophil % (test code = 0.2 % 0.2-1.4 706-2) IGRE % (test code = 1.1 % 0.1-1.5 IGRE % c ount 44746-9) includes Metamyelocytes, Myelocytes, and Promyelocytes. Neutrophil Abs (test code 4.41 K/uL 1.95-7.25 = 751-8) Lymphocyte Abs (test code 0.74 K/uL 1.01-3.24 L = 731-0) Monocyte Abs (test code = 0.38 K/uL 0.24-0.85 742-7) Eosinophil Abs (test code 0.03 K/uL 0.02-0.50 = 711-2) Basophil Abs (test code = 0.01 K/uL 0.02-0.09 L 704-7) IG Abs (test code = 0.06 K/uL 0.01-0.12 93957-2) Lab Interpretation (test Abnormal code = 76005-1) [facility] HospitalRespiratory Viral Panel, Send-Out (BAL)2023-08-29 03:16:58 Test Item Value Reference Interpretation Comments Range RVP Specimen Source BAL (test code = 91480) RVP Adenovirus Not Not Detected Detects Serot ypes B and E. (test code = 31651) Detected Detectio n of Serotype C may be limited.If A denovirus infection is steele spected and a Not Detected re sult isreturned the sample should be re-tested fo r adenovirus using anindepen dent method (e.g. [employer] Adenovirus QuantitativeRea l-time PCR test). RVP Not Not Detected Enterovirus/Rhinovi Detected libertad (test code = 76353) RVP Bocavirus (test Not Not Detected code = 45396) Detected RVP Coronavirus Not Not Detected This test do es NOT assay for (test code = 02252) Detected the nove l 2019 Coronavirus out of[place]. Th is test detects the res piratory Coronaviruses: types 229E,OC43, NL63 , and HKU1. RVP Metapneumovirus Not Not Detected (test code = 38361) Detected RVP Influenza A Not Not Detected (test code = 37560) Detected RVP Influenza Not Not Detected A-X1C8-41 (test Detected code = 52765) RVP Influenza B Not Not Detected (test code = 81437) Detected RVP Parainfluenza Not Not Detected (test code = 67155) Detected RVP Respiratory Not Not Detected The Respira tory Syncytial Syncytial (test Detected Viral assay detects both code = 48124) types A and B, however it does not distin guish between the two.Target Enriched Multiplex Polym erase Chain Reaction (TEM-P CR) allowsfor the detection o f multiple pathogens out o f a single reaction.This t est was developed and i ts performance characteristics determined by [employer]. It has not been cleared or approvedby the U.S. Food a nd Drug Administration. Results should be used inconjunction with clinical f indings, and should not form the solebasis for a diagnosis or treatment decis ion.TEM-PCR is a licensed t echnology of [employer]. Perform ed At:[employer] [facility], [id number] [address], [address] [place] [address] Director: Dmitri Short, PhD BCLD (ABB)CLIA # [id number] Interpretation: A = Abnormal, H = H igh, L = Low [facility] Viral Panel, Send-Out (BAL)2023-08-29 03:16:58 Test Item Value Reference Interpretation Comments Range RVP Specimen Source BAL (test code = 66137) RVP Adenovirus Not Not Detected Detects Serot ypes B and E. (test code = 73218) Detected Detectio n of Serotype C may be limited.If A denovirus infection is steele spected and a Not Detected re sult isreturned the sample should be re-tested fo r adenovirus using anindepen dent method (e.g. [employer] Adenovirus QuantitativeRea l-time PCR test). RVP Not Not Detected Enterovirus/Rhinovi Detected libertad (test code = 32215) RVP Bocavirus (test Not Not Detected code = 82741) Detected RVP Coronavirus Not Not Detected This test do es NOT assay for (test code = 14953) Detected the nove l 2019 Coronavirus out of[place]. Th is test detects the res piratory Coronaviruses: types 229E,OC43, NL63 , and HKU1. RVP Metapneumovirus Not Not Detected (test code = 06472) Detected RVP Influenza A Not Not Detected (test code = 43436) Detected RVP Influenza Not Not Detected A-T5C4-71 (test Detected code = 59076) RVP Influenza B Not Not Detected (test code = 85753) Detected RVP Parainfluenza Not Not Detected (test code = 68069) Detected RVP Respiratory Not Not Detected The Respira tory Syncytial Syncytial (test Detected Viral assay detects both code = 43969) types A and B, however it does not distin guish between the two.Target Enriched Multiplex Polym erase Chain Reaction (TEM-P CR) allowsfor the detection o f multiple pathogens out o f a single reaction.This t est was developed and i ts performance characteristics determined by [employer]. It has not been cleared or approvedby the U.S. Food a nd Drug Administration. Results should be used inconjunction with clinical f indings, and should not form the solebasis for a diagnosis or treatment decis ion.TEM-PCR is a licensed t echnology of [employer]. Perform ed At:[employer], [id number] [address], [address] Director: Dmitri Short, PhD DEJA (ABB)CLIA # [id number] Interpretation: A = Abnormal, H = H igh, L = [facility] HospitalPrep[facility] RBC:g2138, 1 Units 2023-08-28 20:28:31 Test Item Value Reference Range Interpretation Comments PRBC Product Ready -2 Orders on hold due to (test code = 37860-1) critic al shortage. If transfusion nee d is critical, page Transfusion Medicine Physic guillermo financial institution branch manager at [phone] . [facility] RBC:g2138, 1 Units 2023-08-28 20:28:31 Test Item Value Reference Range Interpretation Comments PRBC Product Ready -2 Orders on hold due to (test code = 62388-0) critic al shortage. If transfusion nee d is critical, page Transfusion Medicine Physic guillermo financial institution branch manager at [phone] . [facility] Interpretation Antibody Screen Qmjmjmlv5170-02-14 20:09:16 Test Item Value Reference Range Interpretation Comments TMP Auto Neg At the present ABSC Interp time, patient (test code = plasma shows no ____CESAR SANDOVAL MD 7535) evidence of RBC - [id number] mariana by: alloantibodies. MD Lucie ASHFORD6Dictated D ate/Time: 08.28.2023 15:0 9 PM CDT Transcribed Aquilino e/Time: 08.28.2023 15:0 9 PM CDTElectronical ly Signed By: MD Lucie MTZ MA on 08.10 15:09 PM [facility] HospitalTMP Interpretation Antibody Screen [id number] 20:09:16 Test Item Value Reference Range Interpretation Comments TMP Auto Neg At the present ABSC Interp time, patient (test code = plasma shows no ____CESAR SANDOVAL MD 7535) evidence of RBC - [id number] mariana by: alloantibodies. MD Lucie ASHFORD6Dictated D ate/Time: 08.28.2023 15:0 9 PM CDT Transcribed Aquilino e/Time: 08.28.2023 15:0 9 PM CDTElectronical ly Signed By: MD Lucie MTZ MA6 on 08.10 15:09 PM [facility] HospitalABORh2023-10-19 19:35:29 Test Item Value Reference Range Interpretation Comments ABORh. (test code = 882-1) O POS [facility] HospitalABORh2023-10-19 19:35:29 Test Item Value Reference Range Interpretation Comments ABORh. (test code = 882-1) O POS [facility] HospitalClot Expiration [id number] 19:35:28 Test Item Value Reference Range Interpretation Comments T & S Expiration (test code = 08/31/20235317) [facility] HospitalClot Expiration [id number] 19:35:28 Test Item Value Reference Range Interpretation Comments T & S Expiration (test code = 08/31/20235317) [facility] HospitalAntibody [id number] 19:35:08 Test Item Value Reference Range Interpretation Comments ABSC. (test code = 890-4) Negative ABSC [facility] HospitalAntibody Qublqf2032-03-41 19:35:08 Test Item Value Reference Range Interpretation Comments ABSC. (test code = 890-4) Negative ABSC [facility] HospitalCOVID- (SARS-CoV-2) PCR, [place] Lubdbjhkbxh7678-71-48 00:12:08 Test Item Value Reference Range Interpretation Comments COVID19 (SARS Not Detected Not Detected Testing perfor med CoV-2) PCR (test utilizing T EM-PCR (Target code = 14962-8) Enriched Mul tiplex Polymerase Vel n Reaction) techn ology. Testing laborat ory is [facility], [address], [address] / [place] [address] CLIA ID: [id number]. This test has been valida mariana but FDA's independe nt review of the validati on is pending. This t est is performed as a laboratory developed test; independent rev iew of the validation unde r the FDA's Emergency Use Authorization ( EUA) authority will be performed accor ding to current guidanc e requirements. W e will continue to fol low federal and sta te requirements fo r both notification of results and any confirm atory testing that is required by another agen cy. This test was giorgi medley and its performance characteristics determined by [employer]. It bower s not been cleared or appr joão by the U.S. Food a nd Drug Administration. Results should be used in conjunction wit h clinical findings , and should not form the sole b asis for a diagnosis or tr eatment decision. Testing Performed At:[employer] [id number] [facility] [place] [place] [address] COVID19 (SARS) BAL Source (test code = 95316) [facility] HospitalCOVID-19 (SARS-CoV-2) PCR, [place] Zclkyidsjen9177-11-40 00:12:08 Test Item Value Reference Range Interpretation Comments COVID19 (SARS Not Detected Not Detected Testing perfor med CoV-2) PCR (test utilizing T EM-PCR (Target code = 81781-7) Enriched Mul tiplex Polymerase Vel n Reaction) techn ology. Testing laborat ory is [facility], [address], [address] / [place] [address] CLIA ID: [id number]. This test has been valida mariana but FDA's independe nt review of the validati on is pending. This t est is performed as a laboratory developed test; independent rev iew of the validation unde r the FDA's Emergency Use Authorization ( EUA) authority will be performed accor ding to current guidanc e requirements. W e will continue to fol low federal and sta te requirements fo r both notification of results and any confirm atory testing that is required by another agen cy. This test was giorgi medley and its performance characteristics determined by [employer]. It bower s not been cleared or appr joão by the U.S. Food a nd Drug Administration. Results should be used in conjunction wit h clinical findings , and should not form the sole b asis for a diagnosis or tr eatment decision. Testing Performed At:[employer] [facility] [place], [place] [address] COVID19 (SARS) BAL Source (test code = 79874) [facility] HospitalCMV Quant [id number] 20:53:12 Test Item Value Reference Range Interpretation Comments CMV DNA PCR (test code See_Comment H Demian l Range: Target = 5214) Not Detected.Re portable Range: 34.5 to 4,000,000 CMV D NA IU/mL; values b etween 4,000,000 to 10 ,000,000 CMV DNA IU/mL m ay be reported but th chas should be inter preted with caution as this range of the as say has not been internet architect ally verified. The c linical significance of CMV levels at 4,000 ,000 IU/ml verses th ose above 4,000,000 is unclear. Result s are expressed in CM V DNA IU/ml plasma. Methodology: Th e extraction and quantitation of cytomegalovirus (CMV) DNA in human pl asma is performed using the [employer] Sy[employer]. Amplification o f viral DNA is achieved using polymerase vel n reaction (PCR). Internal contro ls are included to ass ess for possible amplif ication inhibitors. If inhibition is d etected, the specimen is tested again and if in hibition is confirmed th e specimen is res ulted as "Invalid". When an "Invalid" resul ts occurs, it is recommended to wait a minimum of 7-10 days before submitti ng a new specimen for te sting. This is an FDA- approved assay and its performance characteristics were verified by the microbiology la boratory at the [facility]. Results must be interpr eted within the cont ext of all relevant cl inical and laboratory findings. [Auto mated message] The sy stem which generated this result transmit mariana reference range : <=0.0 IU/mL. The refe rence range was not u sed to interpret this result as normal/abnor mal. Lab Interpretation Abnormal (test code = 13861-0) [facility] CenterCMV Quant [id number] 20:53:12 Test Item Value Reference Range Interpretation Comments CMV DNA PCR (test code See_Comment H Demian l Range: Target = 5214) Not Detected.Re portable Range: 34.5 to 4,000,000 CMV D NA IU/mL; values b etween 4,000,000 to 10 ,000,000 CMV DNA IU/mL m ay be reported but th chas should be inter preted with caution as this range of the as say has not been internet architect ally verified. The c linical significance of CMV levels at 4,000 ,000 IU/ml verses th ose above 4,000,000 is unclear. Result s are expressed in CM V DNA IU/ml plasma. Methodology: Th e extraction and quantitation of cytomegalovirus (CMV) DNA in human pl asma is performed using the [employer] Syst em. Amplification o f viral DNA is achieved using polymerase vel n reaction (PCR). Internal contro ls are included to ass ess for possible amplif ication inhibitors. If inhibition is d etected, the specimen is tested again and if in hibition is confirmed th e specimen is res ulted as "Invalid". When an "Invalid" resul ts occurs, it is recommended to wait a minimum of 7-10 days before submitti ng a new specimen for te sting. This is an FDA- approved assay and its performance characteristics were verified by the microbiology la boratory at the [facility]. Results must be interpr eted within the cont ext of all relevant cl inical and laboratory findings. [Auto mated message] The sy stem which generated this result transmit mariana reference range : <=0.0 IU/mL. The refe rence range was not u sed to interpret this result as normal/abnor mal. Lab Interpretation Abnormal (test code = 06198-4) [facility] HospitalUrine [id number] 19:39:03 Test Item Value Reference Range Interpretation Comments Final Report (test code = 8488) No growth [facility] HospitalUrine [id number] 19:39:03 Test Item Value Reference Range Interpretation Comments Final Report (test code = 8488) No growth [facility] HospitalCytology Non-Admissions Manager Interpretation 2023-08-27 19:36:39 Test Item Value Reference Range Interpretation Comments Gross Description (test q7ooaLFkHBCghUYCMAY code = 0354043882) oBTNgNR1bsQtvnJd7kB uhGBErfbZ1sUZdMYmwd 2jrMWJ3c2dgwmPPJmks AJEpYZ9iOEpkEKPdWM8 nZmUwXGRlZmYxXHBhcG VydzEyMjQwXHBhcGVya KH3OLLjLZ0ojhnzGCmk SUomTOUnwgR2AMYqwAK yH1HxPPVtOS9yeoidEL E5NFXCNsooXh6leZPxa HtcZjFcZmNoYXJzZXQw MMZnyAjpDAJjTCx6xL9 RTnrpC55io0N2Ylw3SS NdSKEtA2BbWT7yZQYrw AHpT51RHnrqPYU4XOEN FizsGupbtDyds3VvfZL cXHNnIFxcaWQgNTEwMD AgXFxkYiBPVlIgIiAxN BDeSbC1NkT3OYh0WWYV GSXrTdNgVHocNZZ7HHu 8TDRuCX9lURepwIHqNP cdSyukVWnhN272CCggD JEjB8AfY9UyHLsiSyEz XGlkIDUxMDAyIFxcZGI rK4EVUCJkCOTbBGT8FN QlHKm6OCzgW9PRXXMdV DI1XBraLUX7DsM9VOg5 BYHFSv1mXAU2TUO6Sbc wOPQ3UNu8VYAhUN0sBH eqyGHgJSneb3JfUsMgC RLhAWfdbyH7MRQojtFo VShyqDcawA6hEYTkF48 jp1NZd0TbMV5HZBh2ob OyplibmR8dAZXoeiMrS LckjFDcD0ifR5XkNNCf PuXwLOOMmRAdYKF7xJu 3XHZaLSCuPZY3PAcdLO NsaWRlcywgMSBHTVMsI DEgSXJvblxwYXIgDQox KHXgvN9rWLLpy3OuX3D 2IUHpGOygy3koYVQsRH yeu4JcFHzOYTEKAF4LN M1xtLX9RReRXQZUW2tV hYU8IoUwyPH7ZU26VBW mNWFstSNmSKcvT424p9 pfK6e2yPalM4ryhSG6Z Jwcbx56JXC2JTxaKjvm mOF7RDwnChckdE2kjDB IWVBFUkxJTksgbmFtZT 5PTNrNEyVCMB07Kc02I PLaEJFupTTqLZiwZ133 bMjxb8tjWxblmRC7GFb sSpzreS8hxZRZSEAOEv fPFvjaueOnEG5FYYvXX S3FlLT1q1mtiBSik6v4 VEzhHNL9jXvwuXBmvds siEZxoOmaul44YJC0KK NmMVxmczIwICBmbHVpZ GzbRqrccMI7JRvdXhlv dA1kbEAECVJYXoyJHjn zixYlNM0NYWWJHZ4CjT P0SaMtrEH9ES71LKKyX JTzfPJbYDddC239TLVn OOcaQPl6zjDbETDbVUt mczIwXHBhciANClxwcm 23QLE8o0urfNKgYFarU hennJJiywH7GDdRERLO NPzNBsGfFW1uQQeAX8N EHQcMSlduFJZ9ULgsqI S9l4zkfPBpa7x8DEyiJ QQ4dHUbEBMryEAuKIJa bmNlbnRyYXRlZCBieSB vnPBnB9EldEKzYeKeVI Abs93akENjyX3bpDAlr 1xmaWVsZHtcKlxmbGRp vuZ2LSvYJXHCLFgSHkO hBP9rZSdFI5TKZoQ9Sv Y2ZbJ0W1dkoXtlZismw pJtuLZlGxRSwY3tuPth bX7pkLFeI9xlS4ZpGMF yWpInKQlvIQMgM49ha2 ULe0Dwy7lxjVrkm4Art VXxNO17NIMxkHGgMTU1 YH7bxToiHWWgWHresMu edV3gZBi1 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 A code = 9839) Diagnosis (test code = 34) c6kwtZVuPZWcxQKsYRW wOFxhbnNpXHNwbHRwZ3 HibagyUFgoZR1tPA1mw GxhdHRveWVuXGRlZmYw p5pqo954bHMjh7whOCK OriogxUn4gYfjX47al7 I3VllyW7aaNHUcBJbfX SXsFMalxLNrVMw1UPCo cGVydzEyMjQwXHBhcGV lhYW8ZJSeWW0ulvxrVW azXYbdDFKhckU3MOZxq FWbE4SaSEXfRT7ogjqx UQF5XWmcEJWySNS7VcO xRAPya3Ivldr0AoYyfA m4s3tqOIOwJAZavEkhh 9ynOQN1JZJbwJNxW7dx vY9qPJLxOK5mpzypp7b aXJanHAvgXSMtwNK5oq G3SZBpmZGmP6CgiL0zR GAaKJCnudPngKotmU9v ZnMyMFxjZjEgTHVuZyw zuLOydRJ8aYEvabSbs0 MtOMFogj5uG7suWTj3U K0uJPJfeMW3BZwdOwFw cGFyXHRhYlxwYXJcbGk 3MjBcbGluNzIwXGNmMC QXZXCeHZF0sVAtK5HgN YKblBadPBawNLFtH55p bWVudCkgXHBhclxsaTB sCvu3ElJevTdrKWbvjw 70NKV7p7uwoHLyWQxqX mbbtWJobkG6SMsJJRRZ LStMMiFfDQ2pXJpRQ9K CRUdJTnwyNTkzNXwxfD G2r2abzGNgg4s4GXcpP CW1eV8wRSHxgwXzGSPu QZ6gEOQyCYQohbQREHK vx4OljK8jDQRrd0r5xF WlATBdniMvsB8kRUqzd HlwaGFlLCBccHJvdGVj lJR7TBRgJWksl9stEFS pZZynu5HpTVfHHBOIMU 8IKU8ifXY7J6tHEYUIS 3lEqFI6v4fjdGUsb7i8 JVpxICW6gT2scoPks1a wL4lbAUdncSDhg47ilD J8NG46ORohmPpwAFgrH 6UlYZitVQyaNTGis2Yn EuAbt2OtILDqhE9swdQ vb2mecUBkFYngEvmkyP ItrsD8OZxJUETLYLeVR xYrVI0cSRfXIADBBbX1 Xz03IGCiCRQgdCXwSOb iJ591DHAaBZjwGMTzr2 DhJ2TuDhOnALjjqKsyF 0xQMCBccGFyXHBhcmRc Xtk4LnTbD26ZTBP5MOv qOZQmLEqlcEc9RJDme9 YaAK7juD0zW7ptwEqkF RMygjHSqz2tZIT8XByx RWGyuDSuoMLcqBL4TRW jVObwc7cgYHQmYJetf4 YjMGmMIAMOWA9UWZ0ed ZJ6R5dKOHJXU9jBzJF3 w8kqqVRpw8w2LGpqWCD 8eI50SQitCypfpWO8RF xcOcwseE7qdJGVKQYKC yzTYicyrsMaMB8PGFnP WB6PcUU3p6nulNDdd5g 4SCtiNIP0yKepzHObeh vpbb64HZH4LGUiRwHgW IEaVLKzx8AcRMowouT6 bVLjSFfpsY8pnRZkagb pLRofDxyuoAG0SVgcMq iwsE5bjZGEWJXCKrtJB mfnqzXeGR7QFRZDOO2K vVK9WQQ5qBS2PP42FTC gGKOjwOKlZZcfK155GC BsYWluXGZzMjAgIFxwY CMlzoTKKIOVWUxXK9Xt TUVUQURBVEFfQkVHSU4 cWcP4PgL1UJ10Bvh4Ev WwVDV7VyCmIXLnX87CI wBAAOZMF23GIWDLJQVF H0WYJBEKZXzQY1MTLY7 NUIHGEDZVMM9UXIjGRr UoTJgip8OxrW0lm8xcH 9KtjHraT23qh5bieTRs vHC8mBXhJUVokyMqPVN aj8SjGdWgs5WiZERfiG 9nduOiML6yXLw+NDBXS IiLI8LPXC5VUTTVJYWA DE1PQyJcQSyRY9OFM2t ERVJfTUVUQURBVEFfQk JXWW8bGEq2K8sQKbOIR LgdGMtfC44uh6wuYOoo t4K1QdK9QfB7gJv1QDQ WMEBBNY8LWNIHK94OBG UHAQMRD4BGYXRCVuQWP SFGE68TQAAZXRZNX3KI V7eQJPXMPyRIGCORF57 AFDYSMLRQY8DQPHYYGU GKBlOUYkFZPH7VZPQOK VGYDB5EEZmEVkBvOHAJ W1CUOdEXI5egTNLMYMZ ZVEUuQJ5StT== Comment (test code = 9835) q0bmgWQpPTBucSQkWHW wOFxhbnNpXHNwbHRwZ3 DtgutoOZuwYX7oTQ3zk GxhdHRveWVuXGRlZmYw h5lde050iNGte3egCGV OkqxclKc4oCriR23wv5 T2FgbiZ19yxKWsYMF5U TIyNDBccGFwZXJoMTU4 UDHqmUIlT0mnSPPgKA6 hcmdyMTgwMFxtYXJndD J4EXOgzDAbL8ImJPWfJ OpkITAradd0WpAiOf1q dGVyeTcyMFxwYXJkXHB sYWluXGZzMjAgVGhlcm UgYXJlIHJhcmUgZXBpd CykfXubsZBsT5IrsPDh i0c4zILebNeiyNVkFYB oJYEmBUPveOD7MY7aQM R2rISuT1MgNJChfNotS HByZWNsdWRlcyBmdXJ0 hSPqLZQzEUBdH1Gtsjm 9QJRpd96vNFGrHULuTT ZvDHUngPUdLP2vsTPdR FBlyHWoiB01iyRiZFpo fhLsc6YvOJ7mV0f7XM4 qkPawzYMlwSGae3AjG6 VgEE4cAFyoP63mnLKon T4svXeotpU7uRKxNWY1 bmdhbCBvcmdhbmlzbXM fZ6SkZU5qmSBfQRUjvO VvcJPzLP8kC2zcobumM OerT66jnsRlDINck88c oCPbeqTih09yZH9rNCP uOYOPx960aa9vjhIkgz JbTZPasn3agjchgXOkH HBhcn0= Retained/Biomarker Testing y5wguYMcJEBhaBTzTPQ (test code = 9838) wOFxhbnNpXHNwbHRwZ3 KebdciJAufDM7rLU5uk GxhdHRveWVuXGRlZmYw e1ikk786cPRmu7ozQYL NuymdkIj0jCyaN75sc4 V2HemsJ90reWBxVOY4G TIyNDBccGFwZXJoMTU4 LRBwjDZmS9qfDKAxTH7 hcmdyMTgwMFxtYXJndD W3SYOuwSLwO9KlXBBnK KozXARjniy7CcKcYi2e dGVyeTcyMFxwYXJkXHB vWZcqDUSxPpQeT4I3QS IgUywgMiBTUFxwYXJ9 Informational Points (test l1gtsMFiLHXdmXQqWpJ code = 9836) wUICvXVAhw0tlMFVdqQ FuZzEwMzNcZnRuYmpcd WVyHEScSrNgu0vpm887 qSXsm7cwPYOpOmS2zNJ nFNTjsPSmR489UAQxZV apa9bkd1HeBTOanBCnc 1K3UVJKYZynRCVGXJv2 b5stAmLwQeK4rJMnTMe yY8wzucRdgJDrOOEtLQ u4uC36YRKesM2haBWaC QgxzvYkFyK7GOnxOOFm RqK8HRUxiONgIEIeU9j yZWQwXGdyZWVuMFxibH KxESA6rBvnm0I1zBIwt GVldHtcZjBcZnMyMiBO i2WjXIj6wCsiM7HaKOE jNkR0fHHbMQWiQAgmJO YnCZTffcC7wY23MWlse kP2jDYes8Rbz14dw601 vL8vkRPoALM6MYBeOSK ycJNrLVEbWXF4XJKvdM FoA4sxBIAsVE9wxqlgL TowYHpiYIWbdXJ5MQTr qWAsA8DlUJIfHPvbBAO gtig0BkZzAv2ndGGekM xcSSprw3wch3uklVPpK tb6JROqJhSlNyyrIZpo z7Uek0slGLVgvl2dBVH 5iIAlqVqrw1A8dPRlKP FzlWImodFbQSYeSpF1N YyjER8jxk77GWObVXW1 al9oaSHqaHaucrAjbRS lXExvG9XpIEFod448HM XeT8WuKKAej7B6zqCbZ tHvSACitPK3bpO4KUWj FMb4dEIxxmK6tjNetQR aB4jrfL7pIMPwAD5vkd dcm6hdXAwcJZzgFIMdg DZ1vhP0BJVhtAGbJ8Wk tJ9oNSIxFQqjUVIspff 7RhRdLq4dfYVzvTniZR xzYmtwYWdlXHBnbmNvb nRccGduZGVjXHBsYWlu XHBsYWluXGYwXGZzMjR yaNhpsPcyaL4xCkFmVn QvXQlfXD3aGSOsA4rzl QJzZTSlJDRbR8ddEzYr cF3rfMkcAIjaweM0KMo qX34rDDU4CRN4evAtMG UwbvKaOQZdSXPzAB4bq DTpXINaWSTnKO0oKOS0 ZWxvcGVkIGFuZCBwZXJ wg0FeKZ5kPMUudUWrPK K4QOByu2VnZ9UnUVF2T OOuuF0hGQLwmXWLKTEG RCBBbmRlcnNvbiBQYXR uy0mmF1pxXS1pWDxaKq 9yYXRvcnkgTWVkaWNpb sVsTEJrEDIcQENmt6Ng HCafiuLrus44CSTsFK8 yd9HcM1ibyDJyoZr5ZL XwAPZtQYDgc7OvEIYig c51FCHuQnihcHvgCYOe Xx8qDt2rIUWbwaItGIE 2GeBCYW4ovoedmFNonZ vljs9pONVyCOzySLCcD GZzMjJcbGFuZzEwMzNc aGljaFxmMlxkYmNoXGY cUNyhP2knCoZkKcMzUw xwYXJ9 Lab Interpretation (test Abnormal code = 45629-7) [facility] Non-Admissions Manager Interpretation 2023-08-27 19:36:39 Test Item Value Reference Range Interpretation Comments Gross Description (test z0fkvERdNPGyzVAJWVE code = 7577669521) zURDgAO8gvFojtGn2xT ckOAFjoaM4aJYdHGttg 8xdXAB5c5vcpfYTOqxg ZBBnBS4pEBdqHIDxHB8 nZmUwXGRlZmYxXHBhcG VydzEyMjQwXHBhcGVya AY0EJHyZG2fszjxUCvq LYcvSTPmbgS1DAJejKF gC4GdDCFaMS6vwokbJU K3AKYMHldyGa0ldWEly HtcZjFcZmNoYXJzZXQw ZFBoxApjCRVrJCg2tG8 GEpmgA40ip4W2Jzy3CB ObTZJtO8LsOQ9qZWHgr RZlS44NMavrYJZ9YHMU OhkoKlbiuXcxs9BcuMY cXHNnIFxcaWQgNTEwMD AgXFxkYiBPVlIgIiAxN XNjHeY5QsX1GSu8KDZA WUZpZiNwLWavOAF5HXu 4HABoHL6qUCumtABbHD mlKhfkRObcQ105LHijW LDaR1OqV0AzGWuqWgGm XGlkIDUxMDAyIFxcZGI gK3LCLWSnTVBoACW1YB CsLPg1DFksU1FZEQXrL SZ7EVacUPP0PyO5UIh9 GSCNQd4oMCW8FFH5Zxl pTTR6QPa6VCTeMA1xFJ cpgRKnERobe3AvAtHcY KIqLYntjnL9CRWdgbGd HZvwoPggoD6iTOFaT97 ks0OSi3FuEH4IDBs9ef QzegfzjU6gPBJxzcWqO OohiYRcV6olV9ToAQKn VbKuDTRMdBIfOFV4bFr 5UWOiSMEuPFR7DPgpEV NsaWRlcywgMSBHTVMsI DEgSXJvblxwYXIgDQox TTYxjC3gVHZaf0YpS8H 3KASdJUmey7euZPWvAV wfc0SvZBgUTQFVDN1AN L7lgJL2WXcXWUAPA2fC nNT3ZbOqfZJ2FF92XXI bOYKbrAXxZTnaY612v2 dhZ1z6fLufU4xmlLX1K Oycev21YTB3DKqiBaay sXX0WJpzXslvvI5hwAB IWVBFUkxJTksgbmFtZT 1GIUjGOgLJVE31Og11L SEzDVDovIYlAByjJ692 eKjah4prWfuthIT3WXo fBlafdV3tiKVQRNIACw cBJniiqhErJG3HDAvWA T5ZuPB0o3cohULhc8e5 CEcyUNI4wItecRLlckc lyTWirGyais46ZGV2WZ NmMVxmczIwICBmbHVpZ AiiMicwcBW5RGnzEyjx eM6yjSTLMOJWXndOTet fruCbFV9FEMKRXZ1HbT P5HuPadQD2XC55UKLdS NBszNFgKHlpQ447QBWp QSpzUEv7qsPxXJVbENj mczIwXHBhciANClxwcm 27ZUT7f4zzpDEeXDpsS lmtsGSueyR9VOhFMBHA XMxFYsTwYV6mKPuDW8H JXOiXLxfiKWE1EQcryW R2p1kdjCXhk9w6YJkxF LK5xZTfPEWnsFCpYFJy bmNlbnRyYXRlZCBieSB jvRKvK7KvzIQlLfTvXX Btd39uyJNrtX9ngBDif 1xmaWVsZHtcKlxmbGRp ahT2YQjREFDWZQuOMwO fOZ2dIJaJO5WEPxP5Gw D2ZjN2F0btpYvxKespg hZmfZPgYaUJoJ9fuDxm zV6jmOQaU5hgB9OfFTW qBxAvTHnyVDNuX16xs2 CNj1Nvq3dxvXwys0Bho OZfOE12ZPWxdROvVYI8 VD2jmKhqMZZrRAemdFd zrC1gGGg6 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 A code = 9839) Diagnosis (test code = 34) g7scfCKaLYBmbEEeUGH wOFxhbnNpXHNwbHRwZ3 FwnuciTDzgAN3eAX4py GxhdHRveWVuXGRlZmYw m8wdw520nVNzc7rhKAZ PvnzjhMz1dPuoX16pg7 D8LaqnR2doGUQpSPowZ RWdLBkyvSUvBVj7ZVJn cGVydzEyMjQwXHBhcGV ctAQ6ORVgCZ0totrzCC zrJGlxOXNfloT7UGDdo ITsF7OlHOLtQP0iugaw CTR8FVrgVPHbESE8IfU sLTJwb9Psbtl4EjWvzC h6w3yvNBPxERMvsXxiq 1abVBL9MIInxMFtZ2ps uX3bHTXbIA3yyftrv8s pXDodNBjcLONxrXV2cr T4DLPdpWMmC8GckY8gI LZrOOEyccUfuPazqG2c ZnMyMFxjZjEgTHVuZyw xnHBjkYA0sRKqmpGdy8 CjTNAhwa7vM4svCDh9V M5qRRTfnKW6PZjrQqIa cGFyXHRhYlxwYXJcbGk 3MjBcbGluNzIwXGNmMC SGVDWwPVB1nFMiB7PtN DXnqMcmNTyzXANaQ19b bWVudCkgXHBhclxsaTB vGhn8EwVofTctVAjnab 81BJW1m6zndWLuCAlbN aiznWByjtS9UGmFDINR SEvLHhGzVX3oEYgRQ0V CRUdJTnwyNTkzNXwxfD S1v8ffqMOco6c8QTtxM PX3oE8qFYBgobEyISTo NE7pBSZtAWIplyNZBEJ hy0BhrI1lCYYrg8y6dP IsOPCnfjLsuY5yEDnti HlwaGFlLCBccHJvdGVj uAD1KIOrREpkk8inHSQ zATptt8WsZUyGLBDGLI 1GEF0ytIF6G6gECTLLZ 4gLnJM6k0wvjVYyr4c7 XStmXOI2sR6sepJau6k zR9taSBxdjEXhb96sgC B1ZS06DRrpoGnwXIopM 1VdCSzfHWblMVXst5Cs AlDau8LgHYReaI8dulX ab6djwZJqZZwhWbyywU BbgxJ4PDcJKLSALXpOQ dChEW3pHUyXUXYZCbY3 Wc06FPUhJFBmlLGoCVg cC794RMHrCDthLMPfa0 NvN6ZxAlXsXDvdgMjjU 0xQMCBccGFyXHBhcmRc Tod4OuUhC96MYEP0PGi gMNTcIElqyOx7LNOpl8 VlVI4tvM6wE0fhyPanU OZedtZZrk1bYQB5ULsj IBUlkLJomXRwjPV1VUK vJIpud7fjOVUfORuns9 WbAPaCZDXULG5UVI8wv ZI3H9eKEGWSG6wMtLJ1 s7xzaASwv1e3LIhzIEL 1xF52QGvyOnovpOS8RF cyHgfgaT7ljLCSCLERK otSKrzyikXgZC8OHImJ NI4MdTA8k5yurTMbu6o 8GRdgEKG3pZyxgNOypm timo79XKT2DLVnVjNsM DJyFZOvq8StRYddllG1 hUAxCHxuwZ7jpDFvuin sPVfrDihmuKN5ZEzqIw sneF6faCYOMCGOFejID ryawhDaDH0MMEVPIJ2K vJF1TSJ4tYE0DU76WIE cSRFykIAyJMfjT431EP BsYWluXGZzMjAgIFxwY KZlzaZMSICWJQwLF4Za TUVUQURBVEFfQkVHSU4 cNeT7ZkA0BG54Aem4Av FmDOE5HqDoMGHwG61NF vGMSMETI19ICHQSFOHR W5ALGANAKBhLK4CRDU5 EIKRZJOHPGL0MNYzQZd UaPBpjd7HmxI2tl6yxT 1YzsPutB06sm5uqdJAg jEN4uTOwNRSytcPoHRN le8MfXeMtb0FcUMRbbH 0pwnOiQV8yJNy+NDBXS FuEK6FXPG8RDSQQGMYE IN0NCbMhVPlFG8MDN5a ERVJfTUVUQURBVEFfQk HRYX7hMTs7H8kMEuZED QfyTZphH86pl0quTZin v6S5KsH7QdX7nZz7HAI ZRXRUEF9YSTOZF19PYJ BJMPDNH9FPJUJNYpCRL APQK49JJMMAEPGRZ2OB I1vFRQZPBmYNWALOB86 ZAGAOGNKEF0MNQCOZMB SPCiEOEkZLHU7BLNZCV GKWKR4ROUnBGsWoWDOR A2YWQpIXE5ssGGWALOP TIILcGD6JgN== Comment (test code = 9835) k8qswXNpXXHmkNCdFQO wOFxhbnNpXHNwbHRwZ3 IwfbgwCBxvRA3hUG8ug GxhdHRveWVuXGRlZmYw q7exj700mWZnj5ovDIA UgufydJr5hNtiE34do7 R7KuyhU87fsFVrSQZ0J TIyNDBccGFwZXJoMTU4 RIQdbWHzV4qjFFBsRH8 hcmdyMTgwMFxtYXJndD C0FRHrsICkW9PoHPItN FafSASjouk0NzEuHt2o dGVyeTcyMFxwYXJkXHB sYWluXGZzMjAgVGhlcm UgYXJlIHJhcmUgZXBpd NozeWqxdRWpA8VfiZCs v5v5jZHxhQrhrTVlOMD sFPSaWCWpvAR7VP4qLT A9gLFpD1IlKYOrjLasU HByZWNsdWRlcyBmdXJ0 sMJwYSOxQDZlY4Mjlso 8EYAkg10yFKKrPOAdHN ZnOZMprAMaHL8mgOHoW YGavTZesM35rrXbULhm emGtg7HmMO5dJ6u0DI5 udAwiyTPpjUHir2BdB9 EtAX0aDOevK89qoLKcu Z9tiTesdyA9gUTaQZI6 bmdhbCBvcmdhbmlzbXM dF1AdGE4xhKBqTTHegV IyxWHsQF9tA0ztqdvsY SarL41egoPtVDElq40c qUXdleVgb48vSV3rYIQ pPSCQv597br1jbqWlwv YgYJZlwa6dkoysyAZaX HBhcn0= Retained/Biomarker Testing b0iyeRQkRWZcmSEpUYH (test code = 9838) wOFxhbnNpXHNwbHRwZ3 WgsovnBZuwYV3sNL0ee GxhdHRveWVuXGRlZmYw h3fru502rNLic2wjCQF RsfgdiWb2aWclE18jj0 X0MyexN56hpMNgWIO5W TIyNDBccGFwZXJoMTU4 MOHyoDXzQ4qxYFUtIJ4 hcmdyMTgwMFxtYXJndD H5HGUuyMXdO4IeCCZzS YdjIOAipjq3HoGnOg0w dGVyeTcyMFxwYXJkXHB bFQyfRMQxKnIsH9G2JJ IgUywgMiBTUFxwYXJ9 Informational Points (test h1axsKSqKNXpeDNwQnD code = 9836) lUIOeSEXul1vmTOOumC FuZzEwMzNcZnRuYmpcd MSwIIZfCsQag8wcl249 sNEij2cdAJMvTpI6bKY kPPEaiSLuP957MOXvDS rtq8nau9EiRQQgxXNso 2D0QJYLLEmoRVELVXp0 j5ctJtWkYxJ2zOYuPZv lN2zgwkGlvYHyUVQjRN s8cK81GEIoxX7ogOGiJ ZgzmsLjKcP0JQptVMSt TfH8XBDhuDUaUECzW7l yZWQwXGdyZWVuMFxibH HhTOY9uHjrw1J8iZNum GVldHtcZjBcZnMyMiBO q3CrEMg9fUwkZ1OaEIT bVlI1hGEoUWEyXJmdBJ MfSGZcyiE3gL56KUtxy lE2qWLly3Kfx69av137 mW6ebHLxHJF4RMYkFRS rwNQbEIUtMYX6WUJmnV JgH3unEYNiHL6apkyuJ WaiWKpyUSYazNH8RGNr hBUyV9VlJJBcMUtyCQB kgpu3WuHsQw7xqHXvgR gjPFbip0wfj7jowKJkY hu4YAPtFvCbGlhqSShp u6Wnc5fbZRYvzx7lFAP 3yRZyzNfit1X9dQVlMQ IctZCfnxYqUVViSeP3E EpbIY5pyd11FGLiBHP9 ik3fuNCjnIlzdwTseLF kERodH0RaKMRdb769BB CiJ9HyCYTsv1O2alZaJ rJbOXBmdXU1rfR6VOVj QIs4tDAcpuS9xlQfaKG lQ6sfzX7kTENyTA0gjp tom3paVBarOJyxFYJpe VX9muU9MTVowCIxE5Ad wB3xJVWyJCqdJAAjgsy 8WaFeIo9dvJPsxSiuYS xzYmtwYWdlXHBnbmNvb nRccGduZGVjXHBsYWlu XHBsYWluXGYwXGZzMjR atPqikQjshB8bIeRgIw MfTZyjSD2nVKLtO8qge PUjXNKnCLBqQ8ugMnWm xJ5byHrnAUrsmiW4HNk gO45rECU9PNK3huVeVN FldsIfKEAeBQThJD5bj CVgRLWyMUAfAH7pRDE1 ZWxvcGVkIGFuZCBwZXJ jx5CxYU8rEUOnyWNkQB A0CFRes0BwT9YmKQJ9U HAojI0nYKQmyGGYKRKX RCBBbmRlcnNvbiBQYXR cg1coL8huJM5kEYwnXi 9yYXRvcnkgTWVkaWNpb mJwLZQgLBXnTFUhf2Tx QGxoblKukt33YXOiHL6 zu0LlK4yqdSGyyTs5TI RzMULpGLWpe9ZeQBTxv w30SHKhRpkybAbgGVCr Ln1hSm2eBFEytkQrSZL 1EuGHXA7sgzasjQStdE kqgr5vRGDdXNyrKTIaR GZzMjJcbGFuZzEwMzNc aGljaFxmMlxkYmNoXGY iILonC5wzSiHhJdNuZd xwYXJ9 Lab Interpretation (test Abnormal code = 73931-1) [facility] Quant PCR, [place] 2023-08-27 15:20:40 Test Item Value Reference Interpretation Comments Range P. jiroveci Not Detected Not Detected Assay Range: 8 4 copies/mL to BAL-[facility]ac[employer] copies/mL 1.00E+08 copies /mLThe limit of (test code = quantitation (L OQ) is 84 42376-6) copies/mL. Pneumocystisjir oveci DNA detected below the LOQ will be reported as Detected:<84cop ies/mL.This test was [employer] and its performance characteristics determined by [employer]. It has not been cleared or approvedby the [place] Food and D rug Administration. Results should be used inconju nction with clinical findin gs, and should not form the so lebasis for a diagnosis or tr eatment decision. [facility] med At:[facility] Virel[facility]io [id number] [place] [id number] Direct or: Dmitri Short, PhD DEJA (ABB)C THANIA # [id number] Interpretation: A = Abnormal, H = High, L = L [facility] 2023-08-27 15:20:40 Test Item Value Reference Interpretation Comments Range P. jiroveci Not Detected Not Detected Assay Range: 8 4 copies/mL to BAL-Viracor copies/mL 1.00E+08 copies /mLThe limit of (test code = quantitation (L OQ) is 84 95842-8) copies/mL. Pneumocystisjir oveci DNA detected below the LOQ will be reported as Detected:<84cop ies/mL.This test was [employer] and its performance characteristics determined by [employer]. It has not been cleared or approvedby the U.S. Food and D rug Administration. Results should be used inconju nction with clinical findin gs, and should not form the so lebasis for a diagnosis or tr eatment decision. Formerly [facility] med At:[facility], NCA224 [address] [place] [id number] Direct or: Dmitri Short, PhD DEJA (ABB)C THANIA # [id number] Interpretation: A = Abnormal, H = High, L = L [facility]CMV Quant [facility], [id number] 15:20:39 Test Item Value Reference Range Interpretation Comments CMV Not Detected Not Detected Assay Range: 7 9 IU/mL to BAL-Viracor IU/mL 1.88E+08 IU/tourist information assistant he limit of (test code quantitation (L OQ) is 79 = 5211) IU/mL. CMV DNA detected belowthe LOQ wi ll be reported as Detected:<79 IU/mL.This test was develo ped and its performance characteristics determined by [employer] [facility]. It has not been cleared or approvedby the U.S. Food and D rug Administration. Results should be used inconju nction with clinical findin gs, and should not form the so lebasis for a diagnosis or tr eatment decision. Perfor med At:[facility], NWD659 [address] [id number] Direct or: Dmitri Short, PhD DEJA (ABB)Edis THANIA # [id number] Interpretation: A = Abnormal, H = High, L = L ow [facility] Quant PCR, [id number] 15:20:39 Test Item Value Reference Range Interpretation Comments CMV Not Detected Not Detected Assay Range: 7 9 IU/mL to BAL-Viracor IU/mL 1.88E+08 IU/tourist information assistant he limit of (test code quantitation (L OQ) is 79 = 5211) IU/mL. CMV DNA detected belowthe LOQ wi ll be reported as Detected:<79 IU/mL.This test was develo ped and its performance characteristics determined by [facility]. It has not been cleared or approvedby the U.S. Food and D rug Administration. Results should be used inconju nction with clinical findin gs, and should not form the so lebasis for a diagnosis or tr eatment decision. Perfor med At:[facility], BVB[address] [place] [id number] Direct or: Dmitri Short, PhD DEJA (ABB)C THANIA # [id number] Interpretation: A = Abnormal, H = High, L = L ow [facility]Lower Respiratory Culture w/ Gram [id number] 13:48:15 Test Item Value Reference Range Interpretation Comments Final Report (test No growth code = 8488) Gram Stain Report Many WBC's seenNo (test code = 57785-5) organisms seen. [facility] Culture w/ Gram [id number] 13:48:15 Test Item Value Reference Range Interpretation Comments Final Report (test No growth code = 8488) Gram Stain Report Many WBC's seenNo (test code = 07293-3) organisms seen. [facility] HospitalFungdavid, [id number] 08:58:06 Test Item Value Reference Range Interpretation Comments Fungitell S-V <31 <=80 Interpretatio n: The Fungitell (test code = assay does not detect certain 9239) fungalspecies s uch as the genus Cryptococcus (T reynaldo et al. 1991) whichprod uces very low levels of (1-3) -Geyd-L-Uriaah. The assay also doesnot detect the Zygomycetes such as Absidia, Mucor and Rhizopus(Jerzy brizuela et al. 1994) which are not k nown to produce(1-3)-Be ta-D-Glucan. In addition, the y east phase of Blastomycesderm atitidis produces little (1-3)-Beta-D-Gl ucan and may not bedetected by t he assay (Surendra et al . 2007).Reference Range:Less than 60 pg/mL. Gluca n values of less than 60 pg/mL a reinterpreted as negative.Glucan values of 60 to 79 pg/mL are in terpreted as indeterminate,a nd suggest a possible fungal infection. Additional samp ling andtesting of sera is requ ired to interpret the r esults.Glucan values of great er than or equal to 80 pg/mL are interpretedas positive.Due to the potential for environment al contamination whentransferred to pour-off tubes, which ca n lead to false positiveresults , interpret positive result s from samples provided inpour -off tubes with caution. Result s should be used in conjunctionw ith clinical findings, and s hould not form the sole basis for adiagnosis or treatment de cision. The Fungitell test is approved orcleared for i n vitro diagnostic use by the U.S Food and DrugAdminis tration. Modifications t o the approved package insert havebeen made and the perform ance characteristics for thesemodificati ons were determined by [employer].If samp le result is greater than 50 0 pg/mL, physician may o rder atiter of the sample. Ple ase contact [facility] if you wouldlike to or marisela a retest of this sample to obtain an actual value.Samples a re held for 1 week after init ial testing date. ___Performed At :[facility], [address], [address] [place] [address] Direct or: Dmitri Short, PhD BCLD (ABB)C THANIA # [id number] Interpretation: A = Abnormal, H = High, L = Low [facility] CrestonFungiteel, [id number] 08:58:06 Test Item Value Reference Range Interpretation Comments Fungitell S-V <31 <=80 Interpretatio n: The Fungitell (test code = assay does not detect certain 9239) fungalspecies s uch as the genus Cryptococcus (T reynaldo et al. 1991) whichprod uces very low levels of (1-3) -Nswy-O-Llzsrt. The assay also doesnot detect the Zygomycetes such as Absidia, Mucor and Rhizopus(Jerzy brizuela et al. 1994) which are not k nown to produce(1-3)-Be ta-D-Glucan. In addition, the y east phase of Blastomycesderm atitidis produces little (1-3)-Beta-D-Gl ucan and may not bedetected by t he assay (Surendra et al . 2007).Reference Range:Less than 60 pg/mL. Gluca n values of less than 60 pg/mL a reinterpreted as negative.Glucan values of 60 to 79 pg/mL are in terpreted as indeterminate,a nd suggest a possible fungal infection. Additional samp ling andtesting of sera is requ ired to interpret the r esults.Glucan values of great er than or equal to 80 pg/mL are interpretedas positive.Due to the potential for environment al contamination whentransferred to pour-off tubes, which ca n lead to false positiveresults , interpret positive result s from samples provided inpour -off tubes with caution. Result s should be used in conjunctionw ith clinical findings, and s hould not form the sole basis for adiagnosis or treatment de cision. The Fungitell test is approved orcleared for i n vitro diagnostic use by the U.S Food and DrugAdminis tration. Modifications t o the approved package insert havebeen made and the perform ance characteristics for thesemodificati ons were determined by [employer].If samp le result is greater than 50 0 pg/mL, physician may o rder atiter of the sample. Ple ase contact [facility] if you wouldlike to or marisela a retest of this sample to obtain an actual value.Samples a re held for 1 week after init ial testing date. ___Performed At :[facility], [address] [place] [address], [address] [place] [address] Direct or: Dmitri Short, PhD DEJA (ASHLEY)Edis THANIA # [id number] Interpretation: A = Abnormal, H = High, L = Low [facility] HospitalMRSA Screening [id number] 18:18:29 Test Item Value Reference Range Interpretation Comments Final Report (test No Methicillin resistant code = 8488) Staphylococcus aureus isolated. LAZARO (test code = Testing is performed using LAZARO) PBP2a antigen detection and cefoxitin screening on isolated S. aureus colonies. This methodology may not detect uncommon mechanisms of methicillin-resistance in S. aureus. [facility] HospitalMRSA Screening [id number] 18:18:29 Test Item Value Reference Range Interpretation Comments Final Report (test No Methicillin resistant code = 8488) Staphylococcus aureus isolated. LAZARO (test code = Testing is performed using LAZARO) PBP2a antigen detection and cefoxitin screening on isolated S. aureus colonies. This methodology may not detect uncommon mechanisms of methicillin-resistance in S. aureus. [facility] HospitalAspergillus Antigen, [id number] 17:45:05 Test Item Value Reference Range Interpretation Comments Aspergillus Antigen 0.09 0.00-0.49 Index (test code = 4728) Aspergillus Antigen NEG Testing performed by Interp (test code = immunoen zymatic 4729) methodology [facility] detects Aspergillus gal actomannan antigen. [facility] HospitalAspergillus Antigen, [id number] 17:45:05 Test Item Value Reference Range Interpretation Comments Aspergillus Antigen 0.09 0.00-0.49 Index (test code = 4728) Aspergillus Antigen NEG Testing performed by Interp (test code = immunoen zymatic 4729) methodology [facility] detects Aspergillus gal actomannan antigen. [facility] HospitalBody Fluid Diff Path Review 2023-08-26 16:39:53 Test Item Value Reference Range Interpretation Comments Body Fluid NO DIAGNOSTIC Diff Interp EVIDENCE OF (test code = MALIGNANCY. ____CHERYL Gibbs MD, PhD 8754) - [id number] by: CHERYL BERKOWITZ MD , PhD - [id number] D ate/Time: 08.26.2023 11:3 9 AM CDT Transcribed Aquilino e/Time: 08.26.2023 11:3 9 AM CDTElectronical ly Signed By: CHERYL Gibbs MD, PhD - [id number] on 08.10 11:39 AM [facility] HospitalBody Fluid Diff Path Review 2023-08-26 16:39:53 Test Item Value Reference Range Interpretation Comments Body Fluid NO DIAGNOSTIC Diff Interp EVIDENCE OF (test code = MALIGNANCY. ____CHERYL Gibbs MD, PhD 8754) - [id number] by: CHERYL BERKOWITZ MD , PhD - [id number] D ate/Time: 08.26.2023 11:3 9 AM CDT Transcribed Aquilino e/Time: 08.26.2023 11:3 9 AM CDTElectronical ly Signed By: CHERYL Gibbs MD, PhD - [id number] on 08.10 11:39 AM [facility] CrestonUrinalysis with Microscopic 2023-08-26 03:07:11 Test Item Value Reference Range Interpretation Comments UA Color (test code = Yellow Straw-Yellow 36552-4) UA Appear (test code = Hazy Clear A 36903-8) UA Glucose (test code NEG NEG mg/dL = 5792-7) UA Bili (test code = NEG NEG 5770-3) UA Ketones (test code NEG NEG mg/dL = 5797-6) UA Spec Grav (test 1.012 1.003-1.035 code = 5810-7) UA Blood (test code = Large NEG A 5794-3) UA pH (test code = 6.0 5.0-9.0 5803-2) UA Protein (test code NEG NEG mg/dL = 5804-0) UA Urobilinogen (test NEG NEG code = 5818-0) UA Nitrite (test code NEG NEG = 5802-4) UA Leuk Est (test code NEG NEG = 5799-2) UA WBC (test code = 2 See_Comment Some rep orting 90526-2) parameters with in the Urinalysis test have changed due to the implementation of new instrumentation in the [facility] [place] greater sensiti vity of measurement. Urinalysis resu lts reported by the [facility] using existing instrumentation , as well as Urinaly sis testing perform ed manually or by backup methodology at the [facility] [place] paula l remain relative ly unchanged. New reporting ruby eters and units will not be reported for [facility] campuses. [Auto mated message] The sy stem which generated this result transmit mariana reference range : 0 - 2 /HPF. The refer ence range was not u sed to interpret this result as normal/abnor mal. UA RBC (test code = 143 See_Comment H [Automa mariana message] 56210-3) The system [employer] generated this result transmitted ref erence range: 0 - 2 /H PF. The reference range was not used to int erpret this result as normal/abnormal . UA Mucous (test code = TRACE Not Seen-Trace 74919-0) /HPF UA Bacteria (test code NOT SEEN NOT SEEN /HPF = 18907-3) UA Squam Epi (test NOT SEEN None-Occasional code = 73971-2) /HPF Lab Interpretation Abnormal (test code = 14348-3) [facility]onUrinalysis with Microscopic 2023-08-26 03:07:11 Test Item Value Reference Range Interpretation Comments UA Color (test code = Yellow Straw-Yellow 18831-2) UA Appear (test code = Hazy Clear A 16514-7) UA Glucose (test code NEG NEG mg/dL = 5792-7) UA Bili (test code = NEG NEG 5770-3) UA Ketones (test code NEG NEG mg/dL = 5797-6) UA Spec Grav (test 1.012 1.003-1.035 code = 5810-7) UA Blood (test code = Large NEG A 5794-3) UA pH (test code = 6.0 5.0-9.0 5803-2) UA Protein (test code NEG NEG mg/dL = 5804-0) UA Urobilinogen (test NEG NEG code = 5818-0) UA Nitrite (test code NEG NEG = 5802-4) UA Leuk Est (test code NEG NEG = 5799-2) UA WBC (test code = 2 See_Comment Some rep orting 25937-4) parameters with in the Urinalysis test have changed due to the implementation of new instrumentation in the [facility] [place], [facility] lowing greater sensiti vity of measurement. Urinalysis resu lts reported by the [facility] using existing instrumentation , as well as Urinaly sis testing perform ed manually or by backup methodology at the [facility] [place] paula l remain relative ly unchanged. New reporting ruby eters and units will not be reported for al l campuses. [Auto mated message] The sy stem which generated this result transmit mariana reference range : 0 - 2 /HPF. The refer ence range was not u sed to interpret this result as normal/abnor mal. UA RBC (test code = 143 See_Comment H [Automa mariana message] 86165-8) The system [employer] generated this result transmitted ref erence range: 0 - 2 /H PF. The reference range was not used to int erpret this result as normal/abnormal . UA Mucous (test code = TRACE Not Seen-Trace 74996-2) /HPF UA Bacteria (test code NOT SEEN NOT SEEN /HPF = 33283-6) UA Squam Epi (test NOT SEEN None-Occasional code = 92420-3) /HPF Lab Interpretation Abnormal (test code = 59777-5) [facility] HospitalBody Fluid [id number] 03:03:11 Test Item Value Reference Range Interpretation Comments Tot Cells BF (test code 100 = 7636) Neut BF (test code = 4 % 0-25 6489) Lymph BF (test code = 18 % This a ssay has been 6187) validated for b hung fluids. No refe rence ranges have bee n established. Te st results should be interpreted in context with the patien t s clinical cond ition. Pathologist con sult is available. Histiocyte BF (test code 56 % Thi s assay has been = 5907) validated for b hung fluids. No refe rence ranges have bee n established. Te st results should be interpreted in context with the patien t s clinical cond ition. Pathologist con sult is available. Eos BF (test code = 1 % This ass ay has been 5513) validated for b hung fluids. No refe rence ranges have bee n established. Te st results should be interpreted in context with the patien t s clinical cond ition. Pathologist con sult is available. Other Cell BF (test code 21 % Thi s assay has been = 6577) validated for b hung fluids. No refe rence ranges have bee n established. Te st results should be interpreted in context with the patien t s clinical cond ition. Pathologist con sult is available. [facility] HospitalBody Fluid [id number] 03:03:11 Test Item Value Reference Range Interpretation Comments Tot Cells BF (test code 100 = 7636) Neut BF (test code = 4 % 0-25 6489) Lymph BF (test code = 18 % This a ssay has been 6187) validated for b hung fluids. No refe rence ranges have bee n established. Te st results should be interpreted in context with the patien t s clinical cond ition. Pathologist con sult is available. Histiocyte BF (test code 56 % Thi s assay has been = 5907) validated for b hung fluids. No refe rence ranges have bee n established. Te st results should be interpreted in context with the patien t s clinical cond ition. Pathologist con sult is available. Eos BF (test code = 1 % This ass ay has been 5513) validated for b hung fluids. No refe rence ranges have bee n established. Te st results should be interpreted in context with the patien t s clinical cond ition. Pathologist con sult is available. Other Cell BF (test code 21 % Thi s assay has been = 6577) validated for b hung fluids. No refe rence ranges have bee n established. Te st results should be interpreted in context with the patien t s clinical cond ition. Pathologist con sult is available. [facility] HospitalCell Count [id number] 03:03:10 Test Item Value Reference Range Interpretation Comments Type BF (test code = BAL RANULFO 7671) Appear BF (test code BLOODY = 4819) WBC BF (test code = 115 See_Comment This ass ay has been 8035) validated for b hung fluids. No reference ra nges have been establishe d. Test results should be interpreted in context with the patien t s clinical cond ition. Pathologist con sult is available. [Aut omated message] The sy stem which generated this result transmitted ref erence range: /mcL. Th e reference range was not u sed to interpret this result as normal/abnormal . RBC BF (test code = 6425 See_Comment This ass ay has been 6933) validated for b hung fluids. No reference ra nges have been establishe d. Test results should be interpreted in context with the patien t s clinical cond ition. Pathologist con sult is available. [Aut omated message] The sy stem which generated this result transmitted ref erence range: /mcL. Th e reference range was not u sed to interpret this result as normal/abnormal . [facility] HospitalCell Count [id number] 03:03:10 Test Item Value Reference Range Interpretation Comments Type BF (test code = BAL RANULFO 7671) Appear BF (test code BLOODY = 4819) WBC BF (test code = 115 See_Comment This ass ay has been 8035) validated for b hung fluids. No reference ra nges have been establishe d. Test results should be interpreted in context with the [facility] s clinical cond ition. Pathologist con sult is available. [Aut omated message] The sy stem which generated this result transmitted ref erence range: /mcL. Th e reference range was not u sed to interpret this result as normal/abnormal . RBC BF (test code = 6425 See_Comment This ass ay has been 6933) validated for b hung fluids. No reference ra nges have been establishe d. Test results should be interpreted in context with the [facility] s clinical cond ition. Pathologist con sult is available. [Aut omated message] The sy stem which generated this result transmitted ref erence range: /mcL. Th e reference range was not u sed to interpret this result as normal/abnormal . [facility] HospitalLactic Acid, [id number] 01:55:11 Test Item Value Reference Range Interpretation Comments V Lactate (test code = 2519-7) 1.2 mmol/L 0.5-1.6 [facility] HospitalLactic Acid, [id number] 01:55:11 Test Item Value Reference Range Interpretation Comments V Lactate (test code = 2519-7) 1.2 mmol/L 0.5-1.6 [facility] Green[facility]illetreptococcus pneumoniae Antigen, [id number] 20:15:45 Test Item Value Reference Range Interpretation Comments Streptococcal Urine Negative Testing is performed using Antigen an immunochroma tographic Interpretation (test assay f or the qualitative code = 89869835) detection o f Streptococcus pneumoniae anti gen in the urine of patien ts with invasive S. pne umoniae infections. It is intended to aid in the d iagnosis of pneumococcal pn eumonia and bacteremia in c onjunction with culture an d other diagnostic meth ods. [facility] Greenvilletreptococcus pneumoniae Antigen, [id number] 20:15:45 Test Item Value Reference Range Interpretation Comments Streptococcal Urine Negative Testing is performed using Antigen an immunochroma tographic Interpretation (test assay f or the qualitative code = 56634830) detection o f Streptococcus pneumoniae anti gen in the urine of patien ts with invasive S. pne umoniae infections. It is intended to aid in the d iagnosis of pneumococcal pn eumonia and bacteremia in c onjunction with culture an d other diagnostic meth ods. [facility] HospitalLegionella Antigen, [id number] 20:14:53 Test Item Value Reference Range Interpretation Comments Legionella Urine Negative Testing is performed using Antigen an immunochroma tographic Interpretation (test assay f or the qualitative code = 3009038) detection of Legionella pneumophila ser ogroup 1 antigen in urin e specimens from patients w ith symptoms of pne umonia. It is intended to aid in the presumptive hermann gnosis of infection cause d by L. pneumophila ser ogroup 1 in conjunction wit h culture and other diagn ostic methods. [facility] HospitalLegionella Antigen, [id number] 20:14:53 Test Item Value Reference Range Interpretation Comments Legionella Urine Negative Testing is performed using Antigen an immunochroma tographic Interpretation (test assay f or the qualitative code = 7922951) detection of Legionella pneumophila ser ogroup 1 antigen in urin e specimens from patients w ith symptoms of pne umonia. It is intended to aid in the presumptive hermann gnosis of infection cause d by L. pneumophila ser ogroup 1 in conjunction wit h culture and other diagn ostic methods. [facility] HospitalVancomycin [id number] 14:20:58 Test Item Value Reference Range Interpretation Comments Vanco Trough 11.5 See_Comment Toxic Trough Le win: >20 (test code = mcg/mL [Automat ed message] 4092-3) The system [employer] generated this result tra nsmitted reference range : 5.0 - 20.0 mcg/mL. Th e reference range was not u sed to interpret this result as normal/abnormal . Vanco Tr Dose See Note Level, date, a nd time of Time (test code = [place] 609[address]-5) availablefor th is sample. The date report ed is the samplecollectio n date. Vanco Tr Dose 08/25/2023 Level, date, a nd time of Date (test code = [place] 62064-1) availablefor is sample. The date report ed is the samplecollectio n date. [facility] HospitalVancomycin [id number] 14:20:58 Test Item Value Reference Range Interpretation Comments Vanco Trough 11.5 See_Comment Toxic Trough Le win: >20 (test code = mcg/mL [Automat ed message] 4092-3) The system [employer] generated this result tra nsmitted reference range : 5.0 - 20.0 mcg/mL. Th e reference range was not u sed to interpret this result as normal/abnormal . Vanco Tr Dose See Note Level, date, a nd time of Time (test code = [place] 79652-9) availablefor th is sample. The date report ed is the samplecollectio n date. Vanco Tr Dose 08/25/2023 Level, date, a nd time of Date (test code = [place]se [place] 50778-7) availablefor is sample. The date report ed is the samplecollectio n date. [facility] HospitalRespiratory Multiplex PCR Panel, Nasopharyngeal [id number] 21:40:14 Test Item Value Reference Range Interpretation Comments Adenovirus (test code = Not Detected Not Detected 55932-3) Coronavirus 229E (test Not Detected Not Detected code = 33949-1) Coronavirus HKU1 (test Not Detected Not Detected code = 20457-0) Coronavirus NL63 (test Not Detected Not Detected code = 27998-2) Coronavirus OC43 (test Not Detected Not Detected code = 34181-8) COVID19 (SARS-CoV-2) Not Detected Not Detected (test code = 22302-2) Human Metapneumovirus Not Detected Not Detected (test code = 30970-7) Human Not Detected Not Detected Rhinovirus/Enterovirus (test code = 01099-5) Influenza A (test code Not Detected Not Detected = 77597-9) Influenza A H1 (test Not Detected Not Detected code = 38606-8) Influenza A H1 2009 Not Detected Not Detected (test code = 62503-2) Influenza A H3 (test Not Detected Not Detected code = 59394-1) Influenza B (test code Not Detected Not Detected = 14933-6) Parainfluenza 1 (test Not Detected Not Detected code = 38175-5) Parainfluenza 2 (test Not Detected Not Detected code = 09576-4) Parainfluenza 3 (test Not Detected Not Detected code = 98421-3) Parainfluenza 4 (test Not Detected Not Detected code = 15820-1) Respiratory Syncytial Not Detected Not Detected Virus (test code = 25074-0) Bordetella Not Detected Not Detected Parapertussis (test code = 53083-0) Bordetella pertussis Not Detected Not Detected (test code = 92447-8) Chlamydiophila Not Detected Not Detected pneumoniae (test code = 07930-1) Mycoplasma pneumoniae Not Detected Not Detected (test code = 07523-2) LAZARO (test code = LAZARO) Has patient had a positive for COVID-19 result in the last 3 months?->No The [employer]Fire RP2.1 is a real-time, nested multiplexed polymerase chain reaction test designed to simultaneously identify nucleic acids from 22 different viruses and bacteria associated with respiratory tract infection, including SARS-CoV-2, from a single nasopharyngeal swab (ANODIZE MACHINE OPERATOR) specimen obtained from individuals suspected of respiratory tract infections, including COVID-19. Results must be interpreted within the context of all relevant clinical and laboratory findings and should not form the sole basis for a diagnosis or treatment decision. Positive results do not rule out coninfection with other organisms. Negative results in the setting of a respiratory illness may be due to infection with pathogens that are not detected by this panel, or a lower respiratory tract infection that may not be detected by an ANODIZE MACHINE OPERATOR specimen. Internal controls are used to monitor all stages of the test process and assess for possible amplification inhibitors. If inhibition is detected, testing is repeated and if inhibition is confirmed the specimen is resulted as "Invalid". When an "Invalid" result occurs, it is recommended to wait 3 days before submitting a new specimen for testing if clinically indicated. This assay has been approved by the FDA for use in laboratories that have been CLIA-certified to perform moderate-complexity and high-complexity tests. The Microbiology Laboratory at [facility], CLIA Accreditation #[id number] and CAP Accreditation #[id number], verified the performance characteristics of this assay. Microbiology Laboratory at [facility] performs the assay using the FilmArray Torch System. [facility], Nasopharyngeal [id number] 21:40:14 Test Item Value Reference Range Interpretation Comments Adenovirus (test code = Not Detected Not Detected 20103-8) Coronavirus 229E (test Not Detected Not Detected code = 04396-9) Coronavirus HKU1 (test Not Detected Not Detected code = 04601-0) Coronavirus NL63 (test Not Detected Not Detected code = 50413-9) Coronavirus OC43 (test Not Detected Not Detected code = 41320-3) COVID19 (SARS-CoV-2) Not Detected Not Detected (test code = 28523-5) Human Metapneumovirus Not Detected Not Detected (test code = 64037-6) Human Not Detected Not Detected Rhinovirus/Enterovirus (test code = 77148-8) Influenza A (test code Not Detected Not Detected = 14823-0) Influenza A H1 (test Not Detected Not Detected code = 27246-3) Influenza A H1 2009 Not Detected Not Detected (test code = 64175-1) Influenza A H3 (test Not Detected Not Detected code = 37814-9) Influenza B (test code Not Detected Not Detected = 19099-8) Parainfluenza 1 (test Not Detected Not Detected code = 37815-4) Parainfluenza 2 (test Not Detected Not Detected code = 81290-8) Parainfluenza 3 (test Not Detected Not Detected code = 83707-9) Parainfluenza 4 (test Not Detected Not Detected code = 98125-9) Respiratory Syncytial Not Detected Not Detected Virus (test code = 04855-6) Bordetella Not Detected Not Detected Parapertussis (test code = 71638-7) Bordetella pertussis Not Detected Not Detected (test code = 13941-4) Chlamydiophila Not Detected Not Detected pneumoniae (test code = 03024-8) Mycoplasma pneumoniae Not Detected Not Detected (test code = 37671-8) LAZARO (test code = LAZARO) Has patient had a positive for COVID-19 result in the last 3 months?->No The BioFire RP2.1 is a real-time, nested multiplexed polymerase chain reaction test designed to simultaneously identify nucleic acids from 22 different viruses and bacteria associated with respiratory tract infection, including SARS-CoV-2, from a single nasopharyngeal swab (ANODIZE MACHINE OPERATOR) specimen obtained from individuals suspected of respiratory tract infections, including COVID-19. Results must be interpreted within the context of all relevant clinical and laboratory findings and should not form the sole basis for a diagnosis or treatment decision. Positive results do not rule out coninfection with other organisms. Negative results in the setting of a respiratory illness may be due to infection with pathogens that are not detected by this panel, or a lower respiratory tract infection that may not be detected by an ANODIZE MACHINE OPERATOR specimen. Internal controls are used to monitor all stages of the test process and assess for possible amplification inhibitors. If inhibition is detected, testing is repeated and if inhibition is confirmed the specimen is resulted as "Invalid". When an "Invalid" result occurs, it is recommended to wait 3 days before submitting a new specimen for testing if clinically indicated. This assay has been approved by the FDA for use in laboratories that have been CLIA-certified to perform moderate-complexity and high-complexity tests. The Microbiology Laboratory at [facility], CLIA Accreditation #[id number] and CAP Accreditation #[id number], verified the performance characteristics of this assay. Microbiology Laboratory at [facility] performs the assay using the VYou System. [facility] Hospital[facility]inal[facility] Microscopic Exam 2023-08-24 17:03:15 Test Item Value Reference Range Interpretation Comments UA WBC (test code = 1 See_Comment Some rep orting 45235-3) parameters with in the Urinalysis test have changed due to the implementation of new instrumentation in the [facility], [facility] [place] of measurement. Urinalysis resu lts reported by the [facility] using existing instrumentation , as well as Urinaly sis testing perform ed manually or by backup methodology at the [facility] paula l remain relative ly unchanged. New reporting ruby eters and units will not be reported for al l campuses. [Auto mated message] The sy stem which generated this result transmit mariana reference range : 0 - 2 /HPF. The refer ence range was not u sed to interpret this result as normal/abnor mal. UA RBC (test code = 4 See_Comment H [Automa mariana message] 48208-9) The system whic h generated this result transmitted ref erence range: 0 - 2 /H PF. The reference range was not used to int erpret this result as normal/abnormal . UA Mucous (test code = NOT SEEN Not Seen-Trace 33555-4) /HPF UA Bacteria (test code OCC NOT SEEN /HPF A = 26298-3) UA Squam Epi (test OCC None-Occasional code = 37315-8) /HPF Lab Interpretation Abnormal (test code = 98996-3) [facility] Exam 2023-08-24 17:03:15 Test Item Value Reference Range Interpretation Comments UA WBC (test code = 1 See_Comment Some rep orting 23733-6) parameters with in the Urinalysis test have changed due to the implementation of new instrumentation in the [facility] [place], [facility] [place] vity of measurement. Urinalysis resu lts reported by the [facility] enters using existing instrumentation , as well as Urinaly sis testing perform ed manually or by backup methodology at the [facility] paula l remain relative ly unchanged. New reporting ruby eters and units will not be reported for al l campuses. [Auto mated message] The sy stem which generated this result transmit mariana reference range : 0 - 2 /HPF. The refer ence range was not u sed to interpret this result as normal/abnor mal. UA RBC (test code = 4 See_Comment H [Automa mariana message] 50800-1) The system [employer] generated this result transmitted ref erence range: 0 - 2 /H PF. The reference range was not used to int erpret this result as normal/abnormal . UA Mucous (test code = NOT SEEN Not Seen-Trace 83322-2) /HPF UA Bacteria (test code OCC NOT SEEN /HPF A = 89983-4) UA Squam Epi (test OCC None-Occasional code = 46637-3) /HPF Lab Interpretation Abnormal (test code = 69578-4) [facility] Hospital[facility]inalysis w/Microscopic if [id number] 16:59:33 Test Item Value Reference Range Interpretation Comments UA Color (test code = 96772-0) Straw Straw-Yellow UA Appear (test code = 66511-6) Clear Clear UA Glucose (test code = 5792-7) NEG NEG mg/dL UA Bili (test code = 5770-3) NEG NEG UA Ketones (test code = 5797-6) NEG NEG mg/dL UA Spec Grav (test code = 5810-7) 1.004 1.003-1.035 UA Blood (test code = 5794-3) Large NEG A UA pH (test code = 5803-2) 6.0 5.0-9.0 UA Protein (test code = 5804-0) NEG NEG mg/dL UA Urobilinogen (test code = 5818-0) NEG NEG UA Nitrite (test code = 5802-4) NEG NEG UA Leuk Est (test code = 5799-2) NEG NEG Lab Interpretation (test code = Abnormal 76380-0) [facility] Hospital[facility] w/Microscopic if [id number] 16:59:33 Test Item Value Reference Range Interpretation Comments UA Color (test code = 10855-7) Straw Straw-Yellow UA Appear (test code = 45131-2) Clear Clear UA Glucose (test code = 5792-7) NEG NEG mg/dL UA Bili (test code = 5770-3) NEG NEG UA Ketones (test code = 5797-6) NEG NEG mg/dL UA Spec Grav (test code = 5810-7) 1.004 1.003-1.035 UA Blood (test code = 5794-3) Large NEG A UA pH (test code = 5803-2) 6.0 5.0-9.0 UA Protein (test code = 5804-0) NEG NEG mg/dL UA Urobilinogen (test code = 5818-0) NEG NEG UA Nitrite (test code = 5802-4) NEG NEG UA Leuk Est (test code = 5799-2) NEG NEG Lab Interpretation (test code = Abnormal 91487-2) [facility] HospitalaPTT2023-10-14 22:20:34 Test Item Value Reference Range Interpretation Comments aPTT (test code = 25.1 See_Comment [Automate d message] The 45821-8) system which ge nerated this result transmit mariana reference range : 24.1 - 35.5 second(s). The reference range was not used to interpr et this result as demian l/abnormal. [facility] HospitalaPTT2023-[facility]-14 22:20:34 Test Item Value Reference Range Interpretation Comments aPTT (test code = 25.1 See_Comment [Automate d message] The 67518-7) system which ge nerated this result transmit mariana reference range : 24.1 - 35.5 second(s). The reference range was not used to interpr et this result as demian l/abnormal. [facility] HospitalProthrombin Time with [id number] 22:20:33 Test Item Value Reference Range Interpretation Comments PT (test code = 12.8 See_Comment [Automated message] The 5902-2) system which ge nerated this result transmit mariana reference range : 11.9 - 14.5 second(s). The reference range was not used to interpr et this result as demian l/abnormal. INR (test code = 0.96 0.87-1.12 6301-6) [facility] HospitalProthrombin Time with [id number] 22:20:33 Test Item Value Reference Range Interpretation Comments PT (test code = 12.8 See_Comment [Automated message] The 5902-2) system which ge nerated this result transmit mariana reference range : 11.9 - 14.5 second(s). The reference range was not used to interpr et this result as demian l/abnormal. INR (test code = 0.96 0.87-1.12 6301-6) [facility] HospitalPO Chem 8 without Hemoglobin and [id number] 17:40:15 Test Item Value Reference Range Interpretation Comments POC NA (test code = 135 See_Comment L [Automa mariana message] 2947-0) The system whic h generated this result transmitted ref erence range: 138 - 14 6 mEq/L. The refe rence range was not u sed to interpret this result as normal/abnor mal. POC K (test code = 4.1 See_Comment Method de scription: 6298-4) The i-STAT is a n analyzer used f or in vitro quantific ation of various anal ytes in whole blood. The device uses a s yeison disposable cart ridge which contains microfabricated sensors, a calibration roberto ution, fluidics system , and a waste chamber . Each test cartridge contains chemic ally sensitive biose nsors on a [employer] ip that are config ured to perform spec ific tests. The microfabricated sensors measure analyte concent ration by an electroch emical assay. [Automat ed message] The sy stem which generated this result transmit mariana reference range : 3.5 - 4.9 mEq/L. Th e reference range was not used to int erpret this result as normal/abnormal . POC CL (test code = 99 See_Comment [Automa mariana message] 2069-01) The system [employer] generated this result transmitted ref erence range: 98 - 109 mEq/L. The refe rence range was not u sed to interpret this result as normal/abnor mal. POC VTCO2 (test code 26 See_Comment [Autom ated message] = 2026-11) The system [employer] generated this result transmitted ref erence range: 24 - 29 mEq/L. The reference r gabriel was not used to interpret this result as normal/abnor mal. POC Anion Gap (test 14 mmol/L - code = 42514) POC BUN (test code = 17 mg/dL 07-05 6299-2) POC Crea (test code 0.7 mg/dL 0.6-1.3 Medicati ons, = 54860-1) especially hydroxyurea or supplements, steele ch as ascorbate, can interfere with test results causing a falsely and significantly h igher result than exp ected. If a problem is suspected with a patient's resul t, a sample should b e sent to the laborato ry for confirmatory te sting. Method descript ion: The i-STAT is a n analyzer used f or in vitro quantific ation of various anal ytes in whole blood. The device uses a s yeison disposable cart ridge which contains microfabricated sensors, a calibration roberto ution, fluidics system , and a waste chamber . Each test cartridge contains chemic ally sensitive biose nsors on a [employer] ip that are config ured to perform spec ific tests. The microfabricated sensors measure analyte concent ration by an electroch emical assay. POC EGFR (test code 100 See_Comment The eGFR cr is = 18419) calculated with the 2020 CKD-EPI creatinine equa tion using creatinin e, patient's age, and sex for adults 18 years of age an d older. Other fa ctors, especially musc le mass, may affec t accuracy and ne ed to be considered.Acco rding to the Kidney Disease: Improv ing Global Outcomes (KDIGO) CKD Wor k Group 2011 Clin ical Practice Guidel ine, chronic kidney disease (CKD) i s defined as the abnormalities o f kidney structur e or function, prese nt for more than 3 mon ths, with implicatio ns for health. CKD frannie uld be classified by c michell, GFR category, a nd albuminuria cat egory. KDIGO guideline s provide the fol lowing GFR categoriesS tage Description GFR mL/min/1.73 m2G 1* Normal or high >= 90G2* Mildly decreased 60-89 G3a Mildly to moder ately decreased 45-59 G3b Moderately to severely decrea sed 30-44G4 Severel y decreased 15-29 G5 Kidney failure <15*In the absence of evidence of kid kirsten damage, neither G1 nor G2 fulfill criteria for CK D. [Automated mess age] The system [employer] generated this result transmitted ref erence range: >=60 mL/min/1.73 sq. m. The reference r gabriel was not used to interpret this result as normal/abnor mal. POC Glucose (test 180 mg/dL 70-99 H Medication s, code = 2339-0) especially hydroxyurea, ca n interfere with test results causing a falsely and significantly h igher result than exp ected. If a problem is suspected with a patient's resul t, a sample should b e sent to the laborato ry for confirmatory te sting. POC Ion Ca (test 1.21 mmol/L 1.12-1.32 code = 1993-) POC Sample Type Venous (test code = 6690) POC Clean Dev (test Yes code = 6672) Performing Lab (test MDA Main Main Ca mpus code = 65483) [facility] Cli nical Lab, [address], [place] [address]; Packaging Specialist: Marianne De Leon MD; Waived Point of Care Testing - Naima salcedo MD Lab Interpretation Abnormal (test code = 11516-9) [facility] 8 without Hemoglobin and [id number] 17:40:15 Test Item Value Reference Range Interpretation Comments POC NA (test code = 135 See_Comment L [Automa mariana message] 0) The system [employer] generated this result transmitted ref erence range: 138 - 14 6 mEq/L. The refe rence range was not u sed to interpret this result as normal/abnor mal. POC K (test code = 4.1 See_Comment Method de scription: 9598-4) The i-STAT is a n analyzer used f or in vitro quantific ation of various anal ytes in whole blood. The device uses a s yeison disposable cart ridge which contains microfabricated sensors, a calibration roberto ution, fluidics system , and a waste chamber . Each test cartridge contains chemic ally sensitive biose nsors on a [employer] ip that are config ured to perform spec ific tests. The microfabricated sensors measure analyte concent ration by an electroch emical assay. [Automat ed message] The sy stem which generated this result transmit mariana reference range : 3.5 - 4.9 mEq/L. Th e reference range was not used to int erpret this result as normal/abnormal . POC CL (test code = 99 See_Comment [Automa mariana message] 2069-01) The system [employer] generated this result transmitted ref erence range: 98 - 109 mEq/L. The refe rence range was not u sed to interpret this result as normal/abnor mal. POC VTCO2 (test code 26 See_Comment [Autom ated message] = 2026-11) The system [employer] generated this result transmitted ref erence range: 24 - 29 mEq/L. The reference r gabriel was not used to interpret this result as normal/abnor mal. POC Anion Gap (test 14 mmol/L 08-29 code = 06295) POC BUN (test code = 17 mg/dL 07-0599-2) POC Crea (test code 0.7 mg/dL 0.6-1.3 Medicati ons, = 27615-8) especially hydroxyurea or supplements, steele ch as ascorbate, can interfere with test results causing a falsely and significantly h igher result than exp ected. If a problem is suspected with a patient's resul t, [facility]. Method descript ion: The i-STAT is a n analyzer used f or in vitro quantific ation of various anal ytes in whole blood. The device uses a s yeison disposable cart ridge which contains microfabricated sensors, a calibration roberto [employer], fluidics system , and a waste chamber . Each test cartridge contains chemic ally sensitive biose nsors on a [employer] ip that are config ured to perform spec ific tests. The microfabricated sensors measure analyte concent ration by an electroch emical assay. POC EGFR (test code 100 See_Comment The eGFR cr is = 99252) calculated with the 2020 CKD-EPI creatinine equa tion using creatinin e, patient's age, and sex for adults 18 years of age an d older. Other fa ctors, especially musc le mass, may affec t accuracy and ne ed to be considered.Acco rding to the Kidney Disease: Improv ing Global Outcomes (KDIGO) CKD Wor k Group 2011 Clin ical Practice Guidel ine, chronic kidney disease (CKD) i s defined as the abnormalities o f kidney structur e or function, prese nt for more than 3 mon ths, with implicatio ns for health. CKD frannie uld be classified by c michell, GFR category, a nd albuminuria cat egory. KDIGO guideline s provide the fol lowing GFR categoriesS tage Description GFR mL/min/1.73 m2G 1* Normal or high >= 90G2* Mildly decreased 60-89 G3a Mildly to moder ately decreased 45-59 G3b Moderately to severely decrea sed 30-44G4 Severel y decreased 15-29 G5 Kidney failure <15*In the absence of evidence of kid kirsten damage, neither G1 nor G2 fulfill criteria for CK D. [Automated mess age] The system [facility] [facility] generated this result transmitted ref erence range: >=60 mL/min/1.73 sq. m. The reference r gabriel was not used to interpret this result as normal/abnor mal. POC Glucose (test 180 mg/dL 70-99 H Medication s, code = 2339-0) especially hydroxyurea, ca n interfere with test results causing a falsely and significantly h igher result than exp ected. If a problem is suspected with a patient's resul t, a sample should b e sent to the laborato for confirmatory te sting. POC Ion Ca (test 1.21 mmol/L 1.12-1.32 code = 1993-) POC Sample Type Venous (test code = 6690) POC Clean Dev (test Yes code = 6672) Performing Lab (test MDA Main Main Ca mpus code = 68330) [facility] Cli nical Lab, [address], [place] [address]; Packaging Specialist: Marianne De Leon MD; Waived Point of Care Testing - Naima salcedo MD Lab Interpretation Abnormal (test code = 40550-3) [facility] HospitalCard[facility] [id number] 17:29:11 Test Item Value Reference Range Interpretation Comments CK (test code = 40 U/L 26-192 2157-6) CK MB (test code = <=5.3 68042-2) Troponin T (test code 10 ng/L <=19 < 19 n g/L Suggest retest = 98105-6) at 3 to 6 hours later to rule out myocar dial infarction >= 1 9 to <=52 ng/L Possible m yocardial injury. Suggest retest at 3 hours. - a c hange of < 20 ng/L, retest at 6 hours - a bui e of >= 20 ng/L, suggestiv e of myocardial infa rction > 52 ng/L Suggest ema of myocardial infa rction Critical value will be reported when c Sona is > 52 ng/L and onl y reported for the first i n a series. Hemolyz ed specimens with Hemolysis Index >100 (100 mg/dl or moderate hemoly sis) may cause interfere nces and falsely low res ults. [facility] Hospital[facility] [id number] 17:29:11 Test Item Value Reference Range Interpretation Comments CK (test code = 40 U/L -192 2157-6) CK MB (test code = <=5.3 51989-1) Troponin T (test code 10 ng/L <=19 < 19 n g/L Suggest retest = 08515-9) at 3 to 6 hours later to rule out myocar dial infarction >= 1 9 to <=52 ng/L Possible m yocardial injury. Suggest retest at 3 hours. - a ch gabriel of < 20 ng/L, retest at 6 hours - a bui e of >= 20 ng/L, suggestiv e of myocardial infa rction > 52 ng/L Suggest ema of myocardial infa rction Critical value will be reported when c Sona is > 52 ng/L and onl y reported for the first i n a series. Hemolyz ed specimens with Hemolysis Index >100 (100 mg/dl or moderate hemoly sis) may cause interfere nces and falsely low res ults. [facility] HospitalUric [id number] 18:22:13 Test Item Value Reference Range Interpretation Comments Uric Acid (test code = 3084-1) 5.2 mg/dL 2.4-5.7 [facility] HospitalU[facility] [id number] 18:22:13 Test Item Value Reference Range Interpretation Comments Uric Acid (test code = 3084-1) 5.2 mg/dL 2.4-5.7 [facility] HospitalLDH2023-10-13 18:18:03 Test Item Value Reference Range Interpretation Comments LDH (test code = 317 U/L 135-214 H Results gre ater than 27055-7) 1651 U/L may no t be reliable due to matrix effect w ith extended diluti on as it exceeds the patient resource specialist's recommended tyler it. Caution should be exercised when interpreting steele ch values and done in conjunction wit clinical contex t. Lab Interpretation (test Abnormal code = 70688-9) [facility]LDH[facility] 18:18:03 Test Item Value Reference Range Interpretation Comments LDH (test code = 317 U/L 135-214 H Results gre ater than 69398-5) 1651 U/L may no t be reliable due to matrix effect w ith extended diluti on as it exceeds the patient resource specialist's recommended tyler it. Caution should be exercised when interpreting steele ch values and done in conjunction wit h clinical contex t. Lab Interpretation (test Abnormal code = 29648-6) [facility] HospitalCA [id number] 22:18:54 Test Item Value Reference Interpretation Comments Range CA 15-3 (test code 490.0 U/mL <=25.0 H Results g reater than 2400.0 = 5170) U/mL may not be reliable due to matrix effec t with extended diluti on as it exceeds the man ufacturer's recommended tyler it. Caution should be exerc ised when interpreting steele ch values and done in conjunc tion with clinical contex t.This test is measured by electrochemilum inescence immunoassay on Carol Rashmi immunoassay vincent lyzers. Results obtaine d in different metho ds are not interchangeable . Lab Interpretation Abnormal (test code = 29177-7) [facility] HospitalCA [id number] 22:18:54 Test Item Value Reference Interpretation Comments Range CA 15-3 (test code 490.0 U/mL <=25.0 H Results g reater than 2400.0 = 5170) U/mL may not be reliable due to matrix effec t with extended diluti on as it exceeds the man ufacturer's recommended tyler it. Caution should be exerc ised when interpreting steele ch values and done in conjunc tion with clinical contex t.This test is measured by electrochemilum inescence immunoassay on Carol Rashmi immunoassay vincent lyzers. Results obtaine d in different metho ds are not interchangeable . Lab Interpretation Abnormal (test code = 86801-1) [id number] 22:18:54 Test Item Value Reference Interpretation Comments Range CA 15-3 (test code 490.0 U/mL <=25.0 H Results g reater than 2400.0 = 5170) U/mL may not be reliable due to matrix effec t with extended diluti on as it exceeds the man ufacturer's recommended tyler it. Caution should be exerc ised when interpreting steele ch values and done in conjunc tion with clinical contex t.This test is measured by electrochemilum inescence immunoassay on Carol Rashmi immunoassay vincent lyzers. Results obtaine d in different metho ds are not interchangeable . Lab Interpretation Abnormal (test code = 64345-7) [facility] 21:59:05 Test Item Value Reference Interpretation Comments Range CEA (test code = 14.7 ng/mL <=3.8 H Reference R anges:Smoker: 0.0 9-6) - 5.5Non-Smoker : 0.0 - 3.8This test is measured by electrochemilum inescence immunoassay on Carol Rashmi immunoassay vincent lyzers. Results obtaine d in different metho ds are not interchangeable . Lab Interpretation Abnormal (test code = 52769-7) [facility] 21:59:05 Test Item Value Reference Interpretation Comments Range CEA (test code = 14.7 ng/mL <=3.8 H Reference R anges:Smoker: 0.0 9-6) - 5.5Non-Smoker : 0.0 - 3.8This test is measured by electrochemilum inescence immunoassay on Carol Rashmi immunoassay vincent lyzers. Results obtaine d in different metho ds are not interchangeable . Lab Interpretation Abnormal (test code = 29217-7) [facility] 21:59:05 Test Item Value Reference Interpretation Comments Range CEA (test code = 14.7 ng/mL <=3.8 H Reference R anges:Smoker: 0.0 2038-6) - 5.5Non-Smoker : 0.0 - 3.8This test is measured by electrochemilum inescence immunoassay on Carol Rashmi immunoassay vincent lyzers. Results obtaine d in different metho ds are not interchangeable . Lab Interpretation Abnormal (test code = 87388-4) [facility]General Laboratory Add-On Test 2023-08-11 21:32:47 Test Item Value Reference Range Interpretation Comments Ordered (test code = 6568) Test Added Test Needed (test code = 7604) CEA [facility] HospitalFractionated [id number] 19:24:35 Test Item Value Reference Range Interpretation Comments Bili Total (test 0.5 mg/dL <=1.2 Indocyanine Green (ICG) code = 1974-) may cause fal sely elevated biliru bin results. Total and direct bilirubin must not be measured from s amples containing indo cyanine green. False el evation of total bilirubin can be seen in patient s with IgG concentrations above 28 g/L. Bili Direct (test <=0.3 Indocyanin e Green (ICG) code = 1967-) may cause fal sely elevated biliru bin results. Total and direct bilirubin must not be measured from s amples containing indo cyanine green. Bili Indirect (test See Note 0.0-0.9 Unable t o calculate code = 1970-) Indirect Bili reid result due to some par ameters are outside rep ortable range [facility] HospitalGlomerular Filtration Rate 2023-08-11 19:24:33 Test Item Value Reference Range Interpretation Comments eGFR (test code = 100 See_Comment The eGFRcr is calculated with 63656-5) the 2020 CKD-EP I creatinine equation using creatinine, patient's age, and sex for adults 18 years of age and older. Other fa ctors, especially musc le mass, may affect accuracy and need to be considered.A ccording to the Kidney Dise ase: Improving Global Outcomes (KDIGO) CKD Work Group 2012 Clinical Practice Guidel ine, chronic kidney disease (CKD) is defined as the abnormalities of kidney struc ture or function, prese nt for more than 3 months, with implications fo r health. CKD should be class ified by cause, GFR sarah gory, and albuminuria cat egory. KDIGO guidelines prov rosalino the following GFR c ategoriesStage Description GFR mL/min/1.73 m2G1* Normal or high >= 90G2* Mildly decrease d 60-89G3a Mildly to moder ately decreased 45-59 G3b Moderately to severely dec reased 30-44G4 Severely decrea sed 15-29G5 Kidney failure <15*In the absence of evid ence of kidney damage, neither G1 nor G2 fulfill criteri a for CKD. [Automated mess age] The system which ge nerated this result transmit mariana reference range: >=60 mL/ min/1.73 sq. m. The referenc e range was not used to int erpret this result as demian l/abnormal. [facility] HospitalTotal [id number] 19:24:32 Test Item Value Reference Range Interpretation Comments Total Protein (test code = 2885-2) 7.0 g/dL 6.4-8.3 [facility] HospitalAlkaline [id number] 19:24:31 Test Item Value Reference Range Interpretation Comments Alk Phos (test code = 6768-6) 207 U/L 35-104 H Lab Interpretation (test code = Abnormal 40505-8) [facility] HospitalALT2023-10-02 19:24:30 Test Item Value Reference Range Interpretation Comments ALT (test code = 1742-6) 15 U/L <=33 [facility].Serum [id number] 19:24:29 Test Item Value Reference Range Interpretation Comments Creatinine (test code = 2160-0) 0.68 mg/dL 0.51-0.95 [facility] HospitalBUN2023-10-02 19:24:28 Test Item Value Reference Range Interpretation Comments BUN (test code = 3094-0) 11 mg/dL 6-23 [facility] HospitalCalcium Qmhif4821-16-92 19:24:26 Test Item Value Reference Range Interpretation Comments Calcium Lvl (test code = 62531-1) 9.8 mg/dL 8.4-10.2 [facility] HospitalAlbumin [id number] 19:24:25 Test Item Value Reference Range Interpretation Comments Albumin Lvl (test code 3.7 See_Comment [Aut omated message] The = 892-7) system which ge nerated this result tra nsmitted reference range : 3.5 - 5.2 gm/dL. The refe rence range was not used to interpret this result as normal/abnormal . [facility] HospitalAspartate Aminotransferase 2023-08-11 19:24:24 Test Item Value Reference Range Interpretation Comments AST (test code = 1920-8) 28 U/L <=32 [facility] HospitalElectrolyte [id number] 19:24:23 Test Item Value Reference Range Interpretation Comments Sodium Lvl (test code = 131 See_Comment L [Au tomated message] 4216-2) The system [employer] generated this result transmitted ref erence range: 136 - 14 5 mEq/L. The refe rence range was not u sed to interpret this result as normal/abnor mal. Potassium Lvl (test code 4.2 See_Comment [A utomated message] = 3604-3) The system [employer] generated this result transmitted ref erence range: 3.5 - 5. 1 mEq/L. The refe rence range was not u sed to interpret this result as normal/abnor mal. Chloride (test code = 93 See_Comment L [Auto mated message] 3811-0) The system [employer] generated this result transmitted ref erence range: 98 - 107 mEq/L. The refe rence range was not u sed to interpret this result as normal/abnor mal. CO2 (test code = 2028-07) 28 See_Comment [A utomated message] The system [employer] generated this result transmitted ref erence range: 22 - 29 mEq/L. The reference r gabriel was not used to interpret this result as normal/abnor mal. Anion Gap (test code = 10 See_Comment [Aut omated message] 09854-6) The system [employer] generated this result transmitted ref erence range: 4 - 14 m Eq/L. The reference r gabriel was not used to interpret this result as normal/abnor mal. Lab Interpretation (test Abnormal code = 82870-8) [facility] HospitalGlucose [id number] 19:24:22 Test Item Value Reference Range Interpretation Comments Glucose Level (test code 130 mg/dL 70-99 H Eff ective 06/05/16, = 2345-7) the glucose reference inter vals have been updat ed based on [place] an Diabetes Associ ation guidelines (Standards of Medical Care in Diabetes 2016. Diabetes Care 2 016; 39: S13-S22).Fa sting blood glucose:Normal: 70-99 mg/dLImpa ired fasting glucose (increased risk for diabetes or pre-diabetes): 100-125 mg/dLDiabetes mellitus: >/=12 6 mg/dL Random bl ood glucose:Normal: 70-199 mg/dLNot e: Random glucose >100 mg/dL is associ ated with increased risk for diabetes Lab Interpretation (test Abnormal code = 57858-9) [facility] HospitalDifferential2023-10-02 18:58:07 Test Item Value Reference Range Interpretation Comments Neutrophil % (test code = 74.7 % 43.2-72.7 H 770-8) Lymphocyte % (test code = 14.5 % 16.8-46.2 L 736-9) Monocyte % (test code = 8.3 % 5.1-12.5 5905-5) Eosinophil % (test code = 1.5 % 0.4-6.3 713-8) Basophil % (test code = 0.0 % 0.2-1.4 L 706-2) IGRE % (test code = 1.0 % 0.1-1.5 IGRE % c ount 69841-3) includes Metamyelocytes, Myelocytes, and Promyelocytes. Neutrophil Abs (test code 3.05 K/uL 1.95-7.25 = 751-8) Lymphocyte Abs (test code 0.59 K/uL 1.01-3.24 L = 731-0) Monocyte Abs (test code = 0.34 K/uL 0.24-0.85 742-7) Eosinophil Abs (test code 0.06 K/uL 0.02-0.50 = 711-2) Basophil Abs (test code = 0.00 K/uL 0.02-0.09 L 704-7) IG Abs (test code = 0.04 K/uL 0.01-0.12 65993-5) Lab Interpretation (test Abnormal code = 91056-1) [facility].[id number] 18:58:00 Test Item Value Reference Range Interpretation Comments WBC (test code = 4.1 K/uL 4.1-10.5 6690-2) RBC (test code = 789-8) 3.73 See_Comment L [Au tomated message] The system [employer] generated this result transmitted ref erence range: 3.99 - 5 .46 M/uL. The refer ence range was not u sed to interpret this result as normal/abnor mal. Hgb (test code = 718-7) 11.6 See_Comment L [Au tomated message] The system [employer] generated this result transmitted ref erence range: 12.2 - 1 5.3 gm/dL. The refe rence range was not u sed to interpret this result as normal/abnor mal. Hct (test code = 34.8 % 36.4-46.8 L 4544-3) MCV (test code = 787-2) 93 fL 82-99 MCH (test code = 785-6) 31.1 pg 26.6-33.2 MCHC (test code = 33.3 See_Comment [Automate d message] 786-4) The system [employer] generated this result transmitted ref erence range: 31.1 - 3 5.2 gm/dL. The refe rence range was not u sed to interpret this result as normal/abnor mal. RDW-SD (test code = 47.2 fL 37.5-49.7 39417-1) RDW-CV (test code = 13.8 % 11.6-15.5 788-0) Platelet count (test 259 K/uL 160-397 code = 777-3) MPV (test code = 8.7 fL 9.1-12.6 L 25282-3) INRBC (test code = 0.0 See_Comment The INRBC (instrument 23666-8) NRBC) value ref lects the enumeration of nucleated red b lood cells contained in a 200uL sampleof whole blood analyzed by the instrument. Thi s value maydiffer from the NRBC value repo rted in a manual differential,wh ich is based on a 100 cell differential. [Automated mess age] The system [employer] generated this result transmitted ref erence range: 0.0 - 0. 1 /100 WBC. The refere nce range was not u sed to interpret this result as normal/abnor mal. Lab Interpretation Abnormal (test code = 60189-5) [facility] HospitalPhosphorus Uejnz2354-47-11 13:07:08 Test Item Value Reference Range Interpretation Comments Phosphorus (test code = 2777-1) 3.7 mg/dL 2.5-4.5 [facility] HospitalMagnesium [id number] 13:07:01 Test Item Value Reference Range Interpretation Comments Magnesium (test code = 82444-1) 2.2 mg/dL 1.6-2.6 [facility] HospitalUrinalysis with Microscopic 2023-07-26 17:31:06 Test Item Value Reference Range Interpretation Comments UA Color (test code = Straw Straw-Yellow 26113-4) UA Appear (test code = Clear Clear 70504-8) UA Glucose (test code NEG NEG mg/dL = 5792-7) UA Bili (test code = NEG NEG 5770-3) UA Ketones (test code NEG NEG mg/dL = 5797-6) UA Spec Grav (test 1.013 1.003-1.035 code = 5810-7) UA Blood (test code = Large NEG A 5794-3) UA pH (test code = 6.0 5.0-9.0 5803-2) UA Protein (test code 10 mg/dL NEG A = 5804-0) UA Urobilinogen (test NEG NEG code = 5818-0) UA Nitrite (test code NEG NEG = 5802-4) UA Leuk Est (test code Trace NEG A = 5799-2) UA WBC (test code = 5 See_Comment H Some rep orting 83387-2) parameters with in the Urinalysis test have changed due to the implementation of new instrumentation in the [facility], [facility] [place] sens[place] vity of measurement. Urinalysis resu lts reported by the [facility] C enters using existing instrumentation , as well as Urinaly sis testing perform ed manually or by backup methodology at the [facility] paula l remain relative ly unchanged. New reporting ruby eters and units will not be reported for [facility]. [Auto mated message] The sy stem which generated this result transmit mariana reference range : 0 - 2 /HPF. The refer ence range was not u sed to interpret this result as normal/abnor mal. UA RBC (test code = 134 See_Comment H [Automa mariana message] 52276-5) The system [employer] generated this result transmitted ref erence range: 0 - 2 /H PF. The reference range was not used to int erpret this result as normal/abnormal . UA Mucous (test code = TRACE Not Seen-Trace 11219-3) /HPF UA Bacteria (test code NOT SEEN NOT SEEN /HPF = 13973-7) UA Squam Epi (test OCC None-Occasional code = 57507-8) /HPF Lab Interpretation Abnormal (test code = 45121-8) [facility] CenterT[facility] Interpretation Antibody Screen [id number] 17:25:04 Test Item Value Reference Range Interpretation Comments TMP Auto Neg At the present ABSC Interp time, patient (test code = plasma shows no KIMB ERLY 7535) evidence of RBC MD ALLIE 147 78Dictated alloantibodies. by: RAYMUNDO KELLEY MD [id number] Date/Time: 07.11 12:25 PM CDT Transcribed Aquilino e/Time: 07.26.2023 12:2 5 PM CDTElectronical ly Signed By: [place] [id number] on 07.26.2023 12:2 5 PM [facility] HospitalAntibody Ajuurn1382-85-05 16:15:02 Test Item Value Reference Range Interpretation Comments ABSC. (test code = 890-4) Negative ABSC [facility] HospitalABORh2023-09-16 16:11:25 Test Item Value Reference Range Interpretation Comments ABORh. (test code = 882-1) O POS [facility] HospitalClot Expiration [id number] 16:11:14 Test Item Value Reference Range Interpretation Comments T & S Expiration (test code = 07/29/2023 5318) [facility] HospitalaPTT2023-09-16 13:08:28 Test Item Value Reference Range Interpretation Comments aPTT (test code = 29.7 See_Comment [Automate d message] The 51150-2) system which ge nerated this result transmit mariana reference range : 24.1 - 35.5 second(s). The reference range was not used to interpr et this result as demian l/abnormal. [facility] HospitalProthrombin Time with [id number] 13:08:18 Test Item Value Reference Range Interpretation Comments PT (test code = 13.5 See_Comment [Automated message] The 5902-2) system which ge nerated this result transmit mariana reference range : 11.9 - 14.5 second(s). The reference range was not used to interpr et this result as demian l/abnormal. INR (test code = 1.04 0.87-1.12 6301-6) [facility] HospitalUric [id number] 16:14:02 Test Item Value Reference Range Interpretation Comments Uric Acid (test code = 3084-1) 7.1 mg/dL 2.4-5.7 H Lab Interpretation (test code = Abnormal 01642-3) [facility] HospitalLDH2023-09-14 16:10:20 Test Item Value Reference Range Interpretation Comments LDH (test code = 219 U/L 135-214 H Results gre ater than 00822-7) 1651 U/L may no t be reliable due to matrix effect w ith extended diluti on as it exceeds the patient resource specialist's recommended tyler it. Caution should be exercised when interpreting steele ch values and done in conjunction wit h clinical contex t. Lab Interpretation (test Abnormal code = 40427-3) [facility] Biopsy Interpretation 2023-07-18 19:55:39 Test Item Value Reference Range Interpretation Comments Submitted Clinical History v3zpiOWeEJHaa7glIBA (test code = 96177) mbGFuZzEwMzNcZnRuYm pcdWMxIHtccnRmMVxzc 2RhM9QuWnBnCTpkquBx XGRlZmxhbmcxMDMzXGZ 0bmJqXHVjMVxkZWZmMH hvWj1nmXVikZtiOiLgL BSpf9ceppMMffwnyNu8 i0mlFNZpXoU7pMXsCPb iC7gckgDolMKuFPVbGX d3uK70ISOyoR8vcKAfA YpzoqJfAsD1FBoiKKXe JhN7GRCgrPMgDHGaC1m yZWQwXGdyZWVuMFxibH SlLYT9kTkng4V5yVFev GVldHtcZjBcZnMyMiBO o6LxKSf5pGibV9IhDWJ dRjI6nXHiFSQpSQwbTR LcWMQwhbC6gV13LZaqm mE1gLKdi0Ijl02dt972 iO9uuXAlDUY8NZDmVBO uzMRcEUMdVVU9NFWohR FiR1baDOOlTP3krkrbQ XyzYRxnGSOprXH5BINh yUMgS3KqYQDdPDieDLM lwky6IpNvXn8blRCsbH zoQMoqo7nrg8zwsBPhV wf3ZUQeFuEhYzmmTHcx w3Bpj3ypVREtdc3wAVE 0uFLlfSrbj2C7fTJbQJ NcuBFceiMcYBUnOdQ8I HffTA5rjn58FYHaHHR2 gp0llGMklEblstIftTD wFLpkO3HfMJZgg345JV FdQ4MwJSLkj3X8bqMtE yExBCEtvOX8tbJ7OZVw PPm1pCLgruF8tsAacMQ mC8jebI5fWWOzAQ0lok wuj4hlCWegAZomATVar TL1yuX2JVVpwXAcA5Af zY2oHANeKUuzZNRqdrb 2FjKlUw0xgNFwgJdhGI xzYmtwYWdlXHBnbmNvb nRccGduZGVjXHBsYWlu XHBsYWluXGYwXGZzMjR ueKcggRvegI1yEoRiJg JgWEvgJH2nBIBhB9ayj KUwPWLtFPWbV3sbNoRs oT3gcKuhBCccgwNfMIt uZmlsdHJhdGluZyBkdW C1SZMyIQFxi6L1tCBmK YPcodGaxt9mYIEqQtNa rkKll8BaFP0LAhV7GgY aBRsiXtKAkGofrP4qQ2 X7AT81XDQgUSLsPSruB GYxXGZzMjJcbGFuZzEw MzNcaGljaFxmMVxkYmN cGXZhZXxbZ7emYbVgZv BtTbriSBT5nO== Diagnosis (test code = 34) y0kmdTUlQPNebODvQJG uO9wggpJhWDEyeBMjS0 RgqdxeUFvhEN8fBN6rp GxhdHRveWVuXGRlZmYw k2hni483cWTgf0ujAUN XgcyrqDp9xVriN20rg8 F7UzacO6ybWJGdKWerJ RVxRPyadAGzVTy1UJHd cGVydzEyMjQwXHBhcGV xhKJ8PDUhZW4rgkgvTI eaLYnfGPMxavH8DWEzj DMsQ2AbGIVeLT7qsvnp XTE9MBsyAQRfZDQ4PvL dTKKce8Lgund7LoHofK FyZFxwbGFpblxmczIwX HCpVGVEUkPIAEB3EDxi aWFjIGJvbmUgbGVzaW9 bZEOvo7VqOQUlc4IzpE pccGFyXGxpNzIwXGxpb jcyMFxjZjAgTUVUQVNU SYSBFeRRTtJJP4XkY5J XH5gQJ91BBLtTDu5RCt tVDdLVU02HEHzOXGDcI 09NTUVOVClccGFyXGxp RIheaV2mNWLkptWDHU7 vRkhIXHBhcn0= Comment (test code = 9835) b5geaTEkNEEacGXyWBE zE2jzijGkQSZifYIzJ8 WkocqwSLioVR0kZG1ot GxhdHRveWVuXGRlZmYw a8moz470mWAuh5rfAQB FdpypfBb1tOkxU32nw0 N7JjefY49foSQbKNZ8Z TIyNDBccGFwZXJoMTU4 UZUaaHGyG4dqQUOnMM1 hcmdyMTgwMFxtYXJndD I6GPTzdMDbM0IzXBZgV GzeLNRiziq2RoWwYp4p dGVyeTcyMFxwYXJkXHB sYWluXGZzMjAgVmVyeS HlUUxdfJHwz4LvR1Tog YPnCWXgGLZeQA0cjR3p dGhlIGZpYnJvdGljIGJ mwpDetHShds67TjWVbA 61jb0uhWO9r8UcBH8wR 1UnPXE0sTEaLQXni0od gaD1tWM3FWFkSWI8dS8 vciBjZWxscyBhcmUgcG 8geLRbqmXhMp5cGVPeo o1pxFEtg9GkHKMxdoBb b0VepMOfyWRfzyVaU2I UQTMuXHBhcn0= Gross Description (test l4qzcHHqWTYhpFEOBRD code = 4885956370) lEORkXT0sxUvvmSh4xV bsPKDdbgN7kCOfZQwyb 7qaGFZ6w6bflkFEMhas OSXaRQ0aBEzgNPWvDO6 nZmUwXGRlZmYxXHBhcG VydzEyMjQwXHBhcGVya KS2VQDdMN8qryxxHMrt PRjyJOYbpoF8NHRzoXL bJ5ArOPSiZT6zqbrwAQ H0IMTYAckuVt9ojVLah HtcZjFcZmNoYXJzZXQw FJQkwWdgPPBaCJg3uP7 NUoshV92wl1B4Quc6FB KmBJAjP4CnAV9bNMZah QZwF33HXxzvLSN0PLYV KjqdXemggByyu6XzmRX cXHNnIFxcaWQgNTEwMD AgXFxkYiBPVlIgIiAxM xbiAVD0UfT2ZMe8HKWE CGYoNjA4ZeU0XCX5TGu 6GBFeCL5wGPlexFAcDC sjRpaiNQpxF443OWeqY SCpT9EpI5XlYYdqWiBf XGlkIDUxMDAyIFxcZGI iP5DZTRJwZXX2BAY7FX ZeLKv8NSyuS2XYOFGoR LT3LHKlGHJ7NaI0HQj0 VNNMIj3xPKGxRaR4OTr cIBH8LKkhEXZfMUGiUw BcXHNzIDMgXFxmbCBcX T9wwGmtOUZpOF8FCOUy YWluXGJcZnMyMCBBOlx wYXIgDQpccGFyZCANCl xwbGFpblxiXGZzMjBcc ZfewZ6zaWOwE5erBwOd MlxlcGljTmVzdERvYzE gDQpcbHRycGFyXGxpbj BccmluMFxzYTMwXGVwa NWFz6AzHMJZObnbGLJs MVxmczIwIEJvbmUsIGx rObSrqUdoRDCmXl6hCH PkAFZvp66kKkiudCQ8C lxiMFxjZjAgIDQgdGFu TVNjr8axDNIjmqCdX11 iFYNglpTuU3qwYjAdtd 9tIDAuNSBjbSAtIDEuM uCcrEBdzzImPN6hzJlv QN0bSJAuLGLjJAFlIkI jbSBpbiBkaWFtZXRlci lpPJ31nFYxxEmtz9Ass Js7nXPkPKwxKFSmZTHo ciBkZWNhbGNpZmljYXR sx99yRIRztDSznAGghP tnWomgoQA4GQodOldzc V3zcHZFLPKZWykIOsub ohCkQA6ABA0IQgNMVX6 8CdLyTNU0QJwJD1JWpB Z0Wak2DSf6fWnoVmsji tFvhSHxZlSNxO1IIStd WjajbRQ3MEpsHaqanT0 zdCBIWVBFUkxJTksgbm QkVA2OGW6UGX6RpWYmM QU5nCU1OYAMWflmqMI6 zFR7yZ54DOGmJNHgvDY wJHyeW013PPNoOXwkKT x2cgNiYZDaAaCkJNqjX JGlY64yk4NIv1Dur8du pTfzv3JxiZUhIB92CPN qlAFiBZT9GD5arFlfGS IgDQpccGFyZCANClxmc yUzSF6LoJ== [employer]arker Block(s) (test t8ejiWFyDLIyvXXmKBB code = 9841) oB6cjlgDiNLCtuKVjO1 JwuxkcFAaqTW0jUR4qo GxhdHRveWVuXGRlZmYw n9bgd608iRBzd1tkJMU KeaqrnJg9mVslC54ds2 O6OtbaP99zrREwYTU4I TIyNDBccGFwZXJoMTU4 USAleLRwK5qdVZTtVK3 hcmdyMTgwMFxtYXJndD D4QFDpaQEqR1UlIUTvT VyuDCUalhe7DwItVk3q dGVyeTcyMFxwYXJkXHB sYWluXGZzMjAgQTEgKH Pft7NeCsg5DMyuj9NhU mljaWVudClccGFyfQ== Disclaimer (test code = b9uqbQZkXPWydAFjJuH 9844) gBCTjTKRhc8srUYTznL FuZzEwMzNcZnRuYmpcd NQkHHMeZmIxk7nni354 lEDws1jiBISxSbU8zIT sSQFuvTIcK600MHBySZ zyn6yvd8PpAVHkcDZje 4E6RRONncuxtKz7hCfp U01dd7T0HqrjF6hyGEE zVRKwJ2GzNE7qXWByTo k3IOE4NKB4PYUrVPMmX 3LlJF4tMKQtgKKdEMg2 t4dgbTlrOEGlGUU4g3b kTCkuxgMrPP8tax1etU q3o5wnylGzPRBbSCZpu VQSMDXwJ9KnnAltWo3u nGo2nVnrPeqsCMO6Lgp 1MN3aed88ggm3iZohGL BapmttQuI7ZMowQSYex axrIFe3CQplBNAyaZZ6 HWXqzKBoN0ElCRNrDE6 ercz7VID5TZjgXMVeHi C1LUQufFSpMOJcjIfiQ Azcv420WEM6YvThBA5v I5Hcx2S9yM1egRPcSYD crWPdEtDgDNDvyu5zqB AaVZshi3AfLEE0xhY5s TUkjBHnUYWrZS95Zpmu d5VhUzsmISM8LEHxwsY go7Vdj8jpYoCowkKgL7 gkM7VrJUXiNTXdFNWpT qYlsuNdp1Biu3DggBTv mBj1n8zpAIKkXBTjxTh aa7jrNMQ0HPZxE2R7qD Doj5wlLBqtFOBoaAU8j eH5WQJtpDIzA6CurB2j RYGgDC7hudo5y2ztKEM 6PVusLYLpGjN6rdM1QH BcaGVhZGVyeTcyMFxmb 939UJO1BhHnGWRpf3Mf O9LkqSeqP68uvSmbE29 sUTDyaXxhpY7cnQmneE 5cZjBcZnMyNFxxbFxwb JXzzmquDAqtifQ6JKbe pozxQAJwOFdoV0uaReV nBMAdxDxfKLehy5OsDH VsMBXxHetwaoI9NXJTk 69lNIAgt0TyQKYyvG5z pVHvJFcybrEvzHO0BAo hdmUgYmVlbiBkZXZlbG 4hXCDdQH6lNPHzldNff k7rikFtMPByWDMrM3Hc cmlzdGljcyBkZXRlcm1 lyfZzWUL0OGEYKD0YMW AlUFTzq73sETOovQprv V7yuHJwdnMqBRPvh7Ng eW7vjWPCJVQdH6qiQA0 qGJqkr8ZqtKRbnNVvmM K9IKCjx2QgWgOwyvBjf DKkjEVhR3PqnBbgP8zi TEEzQLWmqeVeyWAdo8R sHVYlkDN9vKOdPU7AOo ASf32bAWSdNWKWdaApW MPhhTwpnNH9guV1lY1c LiBJZiBhcHBsaWNhYmx zTRPrl851zl3uxwH4GA EjTVQmhsrta5FqVRElQ DKwfK58DXHjOWMyxq3w itgstDKxrrHkH3Lcije 7dP4cMVAnMJanFOKfJO ZzMjJcbGFuZzEwMzNca GljaFxmMVxkYmNoXGYx WSrbD0qxGfIlPkGiMit wYXJ9 [facility] Interpretation 2023-07-18 19:55:39 Test Item Value Reference Range Interpretation Comments Submitted Clinical History w8xljQYvQXZke8wkYEC (test code = 46611) mbGFuZzEwMzNcZnRuYm pcdWMxIHtccnRmMVxzc 1IyG2XwLvWxNYjlhtZp XGRlZmxhbmcxMDMzXGZ 0bmJqXHVjMVxkZWZmMH boXz3tyWQicTnrPcZeM OUlq7rznkXVjoscmWa4 g3hlRVTmApL9lJQrCJv cC5tfaiFrfBToLMHsLW b2zI84GJJqwX0ydQKzG KmybdUeDhD4AYznPHUl XwE7YIMebXTuWOHiO8n yZWQwXGdyZWVuMFxibH ZoCCW9nSqpp4Y3yRShy GVldHtcZjBcZnMyMiBO u9BuNNp1cEpyR9TxGFM cFqI2eLCjSVLhLXegOV RwEZTqdqK2rO97LUxrn xG8xGKqn7Oxy47sv190 uS1ysZQbKPG9ZJMeQCV ihYKmFJZzUDL2VEDepU SmF8kwIHFgWL8sndpcB SfeMJghADLnyOH8LQQy kSTwN5XxRCWrLPwcHEC bwyu3BfJmSw9oaEYkiS ciQQbel8crp3reyPLaP nl4MERtWlSgGqfoLPpc y2Xjj8aiQARmvr3oWZR 5qJLouEvhc6L0lIOrUX YqiXPbxkOeZOBhMyM4Y JlgNQ5cys11COFkSVL6 lo8axTColIneqaJtwCD sWAyuN6YmTYTnp506GF RwR1LjOHEpk8V1pxKrC qZoEOLitMT4dqW3RQGi ZNq9xXQgplN3qwYhaJI wM3bjxP0kYCQeCT4pvd tct5ljWMkfOQqiSIIbx IG0teO8JJCpiXCfG5Ll uX7tVUVqCLfdPAOjhzw 2MiPtNd1zbCJlrIilGG xzYmtwYWdlXHBnbmNvb nRccGduZGVjXHBsYWlu XHBsYWluXGYwXGZzMjR eyVzaxDyzdU9rUhIcIm JhYUcnXQ8sCMWxZ7cvm ZIsDLIuQCOvY8luQpDd nU2qmRmuXSjvcdEvMGi uZmlsdHJhdGluZyBkdW Y3GTZdDVWdq1B9dZBwL FIasgJcqx3lBGWuIqEi gfKrt3WwGG4NArP2RyK oSVerQjVRzGicuO2tP2 Q5BR88EWEdIHWtXIwjB GYxXGZzMjJcbGFuZzEw MzNcaGljaFxmMVxkYmN xDUGwEFpzY2ovBtYkEr EaQrlaCBZ5eA== Diagnosis (test code = 34) q6mubNVpHYJdvBCsUDA yH5txcaElYXZjdHVpU1 IgitksLMqbZK9tLT2nd GxhdHRveWVuXGRlZmYw d1qbb388nSJka7bjQJX JoesilUi2vZdjZ84gl4 W8YrjeQ9ewXRCeEShkD NZwWOsknIVsXNc5CYFt cGVydzEyMjQwXHBhcGV agEU0CJRtKE5mazpdTX heJSriAKDrilW3LEEjh CPlH9EwUUWdDN6iyner RIX6HPkdJPPkCEU9NmM sHPKsf6Wadnt8VhWmdX FyZFxwbGFpblxmczIwX HDdKXFVQbBSJVJ8PDsj aWFjIGJvbmUgbGVzaW9 wSLAqd8ReCQFgj8CrmB pccGFyXGxpNzIwXGxpb jcyMFxjZjAgTUVUQVNU JWMGFsWGOwLWO9SvW9V OZ6vIA73FMNkPEp1MFt fSApPHK74AWCiNURDlX 09NTUVOVClccGFyXGxp HNrftP0eNSFsuyQISG5 vRkhIXHBhcn0= Comment (test code = 9835) q3mliATcSJDknAWyAAM hX2vrydNzMJDuuLOoF9 EiicqxCIidEO6eGG8nw GxhdHRveWVuXGRlZmYw x4cct554xQTid2zbVPR FdsypaFn5qLeyB39sz1 X4OicaP95viPEiJCR5W TIyNDBccGFwZXJoMTU4 BGLgcWYcI2zhXTAxJP5 hcmdyMTgwMFxtYXJndD J9JYKosILaW3MtFYKlS VvyCMEpilt4CeQyXn6l dGVyeTcyMFxwYXJkXHB sYWluXGZzMjAgVmVyeS HnOIlzhEQob4AtU6Ekr PJtPTFxJBFnOY3wxN5c dGhlIGZpYnJvdGljIGJ qijQnsANzxz15CnUWaU 13xb2jhHP9w8GhNG0yO 4CcUYA2iYNeRAJlm9zx xlK9qFB8WVIdUOO7kR3 vciBjZWxscyBhcmUgcG 0ckADagvAsLy6pTTYek b6peWDcn6BpCPTsnzTm v3LxuGUdtWQsidVdI8M UQTMuXHBhcn0= Gross Description (test u2tgcFSxAWWzxUUFTRE code = [id number]) xTSFxVP1fiAtthJp2qW urUIFzjrO5kIDkXUigk 6hqFQM6d4locjSOBxao NKFjPZ6wNKiqYZMpVW8 nZmUwXGRlZmYxXHBhcG VydzEyMjQwXHBhcGVya VR2TKSjLF6uhjtrRFgi HMlkGHAigvO0AOTimXT vK2EaNBPgRF4phbfiCX A4ORGWUvlzVy7jrWUtc HtcZjFcZmNoYXJzZXQw MCWnyQmbFXCtOMl2iD8 QJhewH76yn0D0Bdb2HR KtPBOeP5UaOZ6vDOXpu TSrC67UDplwXUE7RXJA CxfaBhexoNpyo0CdbXF cXHNnIFxcaWQgNTEwMD AgXFxkYiBPVlIgIiAxM hnnUEL9CfV3ITt7LSCD VRTaRnX9PnO1YJU9VZb 5LZHlGM5tKGwheVPsPZ nqFuudDAlsX081BYceW NXrO8LfZ4MbKPvcLoCe XGlkIDUxMDAyIFxcZGI eV6ILMTPrUAA0WUS7EO WoPMm6MWyrB2UDGKSuR XJ1DZXxWNN0GeH1SJj1 DMNIQn1dIYSgDmI9XSy lJDC8OJwbADMoQPPyCf BcXHNzIDMgXFxmbCBcX P2pfAphSAUwGU4DSQUl YWluXGJcZnMyMCBBOlx wYXIgDQpccGFyZCANCl xwbGFpblxiXGZzMjBcc YqacX9icZSeD2eaTgEz MlxlcGljTmVzdERvYzE gDQpcbHRycGFyXGxpbj BccmluMFxzYTMwXGVwa FZFk2YfVSZQYtfhYRJr MVxmczIwIEJvbmUsIGx iCgNsdHbnVDFqBl0kUP UeFXLlw48qYujohMN1C lxiMFxjZjAgIDQgdGFu PVFzz2mePVVpttCuY77 jEWIfqmDrW9ivGnAora 9tIDAuNSBjbSAtIDEuM pQssVRhteLsTZ5fxUcr XN5lVCTvGFYfAZOiFqD jbSBpbiBkaWFtZXRlci akLA29vTIcbTiqo5Jtp Dd1xZJwVXfzVGIfHGKq ciBkZWNhbGNpZmljYXR en64rJVMvvUBpkXZshP nnRfouxWI7SVnmHnmpe S3vdGGVFMVPIrtSJzxm hcTmUR2PZE3PGxKGBN3 3QiZsMWP7RPhHN1DMbY T3Xdl9PQs2nLseXgzau sAbsKQgOxMXkU4WMIcq JljwoHW6IVjiOkynuU3 zdCBIWVBFUkxJTksgbm YkIJ1JUB7WOH9CtMOnD KN7bXE4JFHYQtdkjHV9 hFA3aH55HGSaIHZqwPV zFTubB652IWHcZCcdCQ w3ztSpURJvPzBuVWfcB BTyA35mo4ROc0Hds4kj uJilg6LkaHFfBQ19KHE pjVAbNDX5XN1jpLtqOH IgDQpccGFyZCANClxmc nNwYY4WxJ== Biomarker Block(s) (test y4dhjONtSHMydAYfABH code = 9841) aV7wgqoNmLGJwnTUeS1 HfanqeRZqvLF7mFJ8lz GxhdHRveWVuXGRlZmYw e8lfn203uVWhy2yeOIC XdqocxEn7cAocE36hk9 Q2ZjqnB06ieCYqFBW1H TIyNDBccGFwZXJoMTU4 ZXAxfVExT8teOZWiAH5 hcmdyMTgwMFxtYXJndD R2RTNufJRwS6HnQMIgU DavOXTitjp9ZcWuYi9s dGVyeTcyMFxwYXJkXHB sYWluXGZzMjAgQTEgKH Qnb1UsHju6RFinb3ScC mljaWVudClccGFyfQ== Disclaimer (test code = a6korOGpLPGnrVVdAnZ 9844) tZKPfEKUfo2ikDLNoqC FuZzEwMzNcZnRuYmpcd DHaZDHuMtZrx3vsw482 oPCtd7qeGASsCmR3qKJ kHABllJMtD824MTOcTW dqt8vwz6YlDYJfzBFns 3N3IWGScsqzvXl9qUfm X45jk5I1ChqdF5nkDFC kKEKmQ7HnZL1iHSLnPb u8QEP1JYZ0GRLeDRNeL 2IjZE9tWFVuvQNiGHa8 i1cleAtfNHBgUSF1m2f bPQopgbMmHN1yvp0ybD s2l5pmxrJoBQLmBVOhc HOYTBRkL6OraMmtUo6x gUi8mNjxJskmDVJ1Nax 1WK8ayc12pyq2sOhkOG SphkqmEhB8HZikPCMkq jwbWAo2MIzqMWHpsVV7 HHPnqEMnB1OeUGRpCD4 ilgy0TIH0WPbsRECqBk M6XNGdgCNfRGLweHqhF Ncbh212GLB6FfOrTY8e X5Ike5M8rE5yoJBePIZ pfCTuYwWwHTYdby4doO LdAQtnq5AoWVI2zpM6b AGfeRYqGDJcHK71Wvmk f0EvMyytJEX5XBPeklR on8Lsb6mbYsEbhbIaY5 nyQ3QiMRSrXVBzHUMbB wNwqrNus9Imk0GdcDZc qPk7c4bbGDMbNUAhjOi cj9jsKQI2OOVmH6Y9nI Zsf3ugXSijKPNchJE6b nR0SAEmnLArN9IvpA2s HIAfUN4dldr0r5lnBPJ 6HQxrXZAuCoM6vlB6JP BcaGVhZGVyeTcyMFxmb 041XMW7UeSjMDPoq0Wk C6VcpCluN30kdGlpH32 rVIZlhNcgaP5fsWdnrS 5cZjBcZnMyNFxxbFxwb WVoptjeLPnqxmT4ZMab bcvwTLZnOUboS1cjUcP yMBLrfUerDKmom3AaMY NnBLBeTkathiY2KOWKn 85dXDMho2CcXECrqU6j bAObUDkteoIreUP7DNk hdmUgYmVlbiBkZXZlbG 9sRMKoPK0lIWEauwYoj m1uccZjOXIqPMIwQ9Bw cmlzdGljcyBkZXRlcm1 zjzNqLWS4NYJGNA2IWT AkBZHkl19gCNDeiIazd W0znDSivqEnVIRai7Xa iH1bkHFUZUQsS2jsUW1 jNSxhm9QzzEKxiKMkcQ Y1WOUsx1ZvYfOgipYyp GUuyETfR4VzaPmfM3yd MXQtTWKxchXlxQLvw8U qXFTxdDE9jLTbPK5HMl REo21uZXOoHKHJvkZpC IAniLicxPQ8krE6fO0n LiBJZiBhcHBsaWNhYmx aAWMff157wj2btzT4GL PuWTAtbvdwd1WeMGUvT DCflF61NRYlVXBwio2z xjnygLYloeZmV3Mkrsx 0pA3gVESiHSsfBLHhVY ZzMjJcbGFuZzEwMzNca GljaFxmMVxkYmNoXGYx MCwtJ9itShRyMzSyKei wYXJ9 [facility] Bi[facility] Interpretation 2023-07-18 19:55:39 Test Item Value Reference Range Interpretation Comments Submitted Clinical History x1sxvZKlHJVqo2naALR (test code = 87002) mbGFuZzEwMzNcZnRuYm pcdWMxIHtccnRmMVxzc 8MdB5CbHnGoPLldxaWr XGRlZmxhbmcxMDMzXGZ 0bmJqXHVjMVxkZWZmMH zqMp3ucEKsaMwoRzZzD KErh3tvupVWhoislWa0 k5zdKJCqVjV1zKSeYAj sR6zmrcVdzIUhWGQiCL z9eO37EMFweI4dsUXzW RebbdAfFrL8PJwcCXHo FcI4QWUsaSCzEGEfS1n yZWQwXGdyZWVuMFxibH HgSMY8mOrxk8P5zQQtu GVldHtcZjBcZnMyMiBO u4YiXUz2eMgtM6NoNPS dMoH0sHIuRVGnGLqeTM VrYLPnplQ2cJ68FTjqu jF7oOOuk8Ety87jq975 sK3xoUAjKKA4LLJdDHB wkZNsBUOiCRR5INEfcG WcV4buOFJwDX2espigB NvrNHgeNLYbtNB7TXPd hGUfW7GrTMLyKQhcRXR qlcy5AgXxOj9aqVYkiP anRTmlt1byp7zphKSjV gi5UZKyRuVeWnzrEAog c7Btf6xrWDPzcw8pFAF 0tRYyhNaha9O0bKUjPH YytJLljmJiJFHiWoP0T DuiQN3qba87HRGrTDZ3 xo1pcKGlpZcataZxcUP xVRlwW1UhBYDcu929OE PwX3LwOQMhr3E1hwExF hIeHNQwqRR3xtA7LPPz EDo6eMIwhpZ2ruHgyXO jK2rhzX8kCDWsKL6gfd ius0msPBerDDgrCJXds OJ3wdE6AIVsdQNbD8Js fN8nKROiKTpgJZJnpsi 3HzRsYs4hgBUawCeqPP xzYmtwYWdlXHBnbmNvb nRccGduZGVjXHBsYWlu XHBsYWluXGYwXGZzMjR rfZxhnUofrW2oHaMhRh PqIJkzZK7eGCGqC3xgh TUcKQNeCOGrA5fjNtPm qA3bcYvqRAodvdScEFp uZmlsdHJhdGluZyBkdW U1HZGaTHQtu8S8kMVlO UKuehTluj2lUZBrNgGj avOmx0TnYM6PAnZ3LlZ pMDrzJvVBnGbfiD5cD4 X0HB44LEWkXQIcGKgkT GYxXGZzMjJcbGFuZzEw MzNcaGljaFxmMVxkYmN oFLOcXFmoT3etYaDoFc EqSegiESJ3hA== Diagnosis (test code = 34) b7dnhQBbTTLxzBHfBVV gP6keskQnUOMkhZJqB1 AvsaniPKvwSK2mKZ6ta GxhdHRveWVuXGRlZmYw a7arq075aZHog8urHHV CpzzgsGl1vZtaE86uh4 E6PgzwD0beEAJfPNiyH JYtUAijkTWaTOa5JDGd cGVydzEyMjQwXHBhcGV jlWO0YCPhTD3naktzOL ccSVecFWGolaQ6SNEzx XUmO0KtKZYnPS4laitu PTI4OBzhFIYqWKB8HxX cDVErh5Hsfwt4QwCtkJ FyZFxwbGFpblxmczIwX VCrKSCEOfAACMM6KYxx aWFjIGJvbmUgbGVzaW9 nJGMun7XqQRCtg3AoeT pccGFyXGxpNzIwXGxpb jcyMFxjZjAgTUVUQVNU LFXRLpKBOwMRA9UxD6T OH5eAH49TYZxKLf0SDh eKEmWLU55VYNvOERWjT 09NTUVOVClccGFyXGxp RQgmqH3rHGAzvgJDBE8 vRkhIXHBhcn0= Comment (test code = 9835) j0vdwLIkDZLspVMdWSY cX4gzzsPcBFAygOIrT1 CxecdiDPvoCG6nJW0sd GxhdHRveWVuXGRlZmYw b3yfq907qQUls6hrPNV OmssilBv9lLaaO13nh9 X2SwleN84vbGVlDNT1F TIyNDBccGFwZXJoMTU4 ZKYtaZYnV2gmCEZyLX2 hcmdyMTgwMFxtYXJndD B1IBIepSDhW9OiYOQhP FnfMGUqyat2XxPpQy9d dGVyeTcyMFxwYXJkXHB sYWluXGZzMjAgVmVyeS QkZHthwXIdg7PaW1Mvd LYoAKScQOJhRT8vuK5m dGhlIGZpYnJvdGljIGJ jbpSiiPHfpx32QfPYnU 87pc6tyIH1x8RiHN5vM 1GrRTQ9wRNsLXIph5ij cbU2nFT0AIHwXEA5lT6 vciBjZWxscyBhcmUgcG 1rfPKlzpQxUv3bPXDjl l6upXFvb4NnBDPynkBt u3HceLBxrLIfkjRnG0Q UQTMuXHBhcn0= Gross Description (test w6fwqQLcOHJhgSSTOXE code = 2747805571) hTKSlAI1sjDfoxOx7fN jnPXOakkL1oPZmIMdqy 9fwRBM9o3ieuqBJXejo HAGgYM8cTNhmCQGyIZ7 nZmUwXGRlZmYxXHBhcG VydzEyMjQwXHBhcGVya QO2ZZCaJO5hjjmvUZuu RDuzHUHgdfR1YMPnaWM jB9QfJTVmYT7tvyqrQH K1QGDCJaydTd7nkBXdu HtcZjFcZmNoYXJzZXQw CZDxqOpjHVIyHTa6mY5 WHnaoZ29jr8Z0Wxf0QY SwMANuE0YqEX2mCIDur ZZlK82PSypcKJI2WLCC VtcmCzovaSgfd4HgcGI cXHNnIFxcaWQgNTEwMD AgXFxkYiBPVlIgIiAxM scpEJP1McU2XJy9WVDT MZOrVtO8MnN7TGK2BOs 1DBBqHI3xRTwrtEJzEZ eaHpwoRIcaN404EEdaC QMrY2MfO0JjYMkyYlXn XGlkIDUxMDAyIFxcZGI iA1LVSUOyWVZ0MLK6CN AhUVu2FAvuE4WBYVImN OF4CRJpPZN4OzA9QLm5 LMFHIc0gKQDkGzK4QMw gDFG3YIaaNLOgKLUwKc BcXHNzIDMgXFxmbCBcX H5fcJsaLVQkKQ1YGMUp YWluXGJcZnMyMCBBOlx wYXIgDQpccGFyZCANCl xwbGFpblxiXGZzMjBcc SganV4xmNIiI3bkOjKf MlxlcGljTmVzdERvYzE gDQpcbHRycGFyXGxpbj BccmluMFxzYTMwXGVwa GHMo0VtPBBJXnrxMWAd MVxmczIwIEJvbmUsIGx kKuDtdYugMCAaHn9yNL WfCTVtv34oWnjcgHR3M lxiMFxjZjAgIDQgdGFu RRCeu9olEJRlloWeT43 wVHAjfgAfS4inSaExnq 9tIDAuNSBjbSAtIDEuM lLgeOEpiiLnTQ1kvAqq YQ8zGHIoUAReXXQbJgB jbSBpbiBkaWFtZXRlci xwMP55wWTgtWmwj5Lit Dl0tVMfPOvjMFNgUUIh ciBkZWNhbGNpZmljYXR qj82eJSYywRUglKNgwP lgGfkrgSW4DLrtOokyo V3qyPNGEDBISblKAkli tkBqYJ6WET9NXvVTLR0 8WcReWCV7IGdJK8CKbR S4Lwp7XPy0gWynNpwup lIzyUTnGkJSqC1ESDpw ZvhzzUZ5DGaxDrkoyB1 zdCBIWVBFUkxJTksgbm BjAD9JQK8QUT0XxUOeF GK9jBG2JVBCAiglbWT1 lAK7bO77DAKgDYCciFU cIWofL131MZLaJWoeWS m5ybNbYKYsEwCjDUseL UFoS84jx2YJu5Rlx3ih cTpmq2UqaTGlVG81OQV lpTJrBFR7JU6ygTtoYI IgDQpccGFyZCANClxmc mDrEX9KzN== Biomarker Block(s) (test t8tokURlVBKsaPQcZHX code = 9841) nN8vydkGmKDLoiXUhB1 TmjvurDVuwIY1qFT0fk GxhdHRveWVuXGRlZmYw t1hkq729aNQrc8mmFVI AyqyjeDk1cPwuJ99qr6 H6YjqxA56qaTCuEFX3R TIyNDBccGFwZXJoMTU4 OBOsuEWqO7wbLGSqGL3 hcmdyMTgwMFxtYXJndD A6RQTlaMLiJ4BkLMPqT ThmXSIvifp3ZkPsUr9c dGVyeTcyMFxwYXJkXHB sYWluXGZzMjAgQTEgKH Ebo3FsBqo3UYpge3ZfW mljaWVudClccGFyfQ== Disclaimer (test code = u8fwcSRxKJMttJHxOyW 9844) wSLVaQPNez2brSYEvjV FuZzEwMzNcZnRuYmpcd HVsYCKfAyZbe0ghu045 rDIbc2skMSOqUyX3fDG gNUOinHMoE996QTQkDN eam3hcv7IlZPObcLNla 2W3FOJOzcvkjSg1hVeg D28xk6X1SejbD7twKOC oRNShC8FfTF1mAMMqBi v6WXZ8VHR7DPVuEVQhP 9WfLW2bDNImuXLmHZx8 h4xuwAglWVYmEAG7o8x fRKlgjxXtGF7nfy9xeX d8i6dzhtXcGFItQOEgv ZQSOCOcG1UdzUzsHm4u oAd7eXokDcrqQPN3Qqy 7DZ9yag96gxp2hTdoRM UnozvvKkE0HCzjYSBal agkVLu9XIxcMONqwWV7 MBFbdZDhI4LmZFUhXG1 glsf5IDO8PYbgTLYiHc M9ULVmkBFfBKTlhFloD Vlsu438USF6ZfEdIM9s I1Cst7Z0eB9foBAtTLK weQFxJzDvRBZvsj6alH JkXUkim5KeEOY2pxQ6a NVjaYWoMVAsQQ49Uqha u7IxHomyOXL0BBTweiD va5Gyl9oiFjQssmBdS8 apL1WkUFFlEKYpQZFzP bYlavDkm5Vnx7UphQSa bUn1r8wbPWIrZBCyxFj an6gdXJY3VZRmO6X8pC Uvs0ivGXntYBDyvUX5e lH7DSKxgJAmH8XfrJ5e YJWuCJ8zrmy2l0ddTKO 4XSyzDIBgHeM2kmZ9TT BcaGVhZGVyeTcyMFxmb 155BKA7TvSeYRHlq0Cm G2UvuYslW34iaObnJ10 sBZNdfMweuG9fxKsbwX 5cZjBcZnMyNFxxbFxwb NYneysfWPnvfdM2YVmx lbywNGYnOYbsZ6tyMfP lMCCafUtpPNyhp9CnWI FdGRCzWzfaitE2IHNVm 15aLYPtc7MgDHGaoC6b dMElZRjsmqKloEA6UUx hdmUgYmVlbiBkZXZlbG 8lSUAaXV4jDOWvvjZxr q5otbUjHMKaLXQnB1Xn cmlzdGljcyBkZXRlcm1 dnlOoZJP3IDTUVZ0KFB GhOSUie99fZIDvuPucx P8iyUQlxvSzPHRqh0Kw sJ7drOAPQKCyR0wyWH1 zMBsnh9ZtsJTshBAmsR Y4VEZfc5OjUxDtqgFkm VJpjPHkI1SndYpwB1js ADDgPKFrtgIewONcd8L eQJYzqEH4nNFbUQ8WXm JTu02qSSIuSZTGmqWvV QQjwZqqsZQ1zsQ0zO6m LiBJZiBhcHBsaWNhYmx yKTBhw324se4tjnU2RH UvUVLxxlhod1TjKYGxD OXqlH03JRQaZLBvdj7w yaswuSQvbsQuA2Rorou 2dY4mMMLuUEomARToJF ZzMjJcbGFuZzEwMzNca GljaFxmMVxkYmNoXGYx YKizN7wgKcXoFuYwQhu wYXJ9 [facility] Microscopic Exam 2023-07-16 18:43:02 Test Item Value Reference Range Interpretation Comments UA WBC (test code = 14 See_Comment H Some rep orting 17493-8) parameters with in the Urinalysis test have changed due to the implementation of new instrumentation in the [facility] greater sensiti vity of measurement. Urinalysis resu lts reported by the [facility] C enters using existing instrumentation , as well as Urinaly sis testing perform ed manually or by backup methodology at the [facility] [place] [facility] remain relative ly unchanged. New reporting ruby eters and units will not be reported for al campuses. [Auto mated message] The sy stem which generated this result transmit mariana reference range : 0 - 2 /HPF. The refer ence range was not u sed to interpret this result as normal/abnor mal. UA RBC (test code = 97 See_Comment H [Automa mariana message] 43770-6) The system [employer] generated this result transmitted ref erence range: 0 - 2 /H PF. The reference range was not used to int erpret this result as normal/abnormal . UA Mucous (test code = NOT SEEN Not Seen-Trace 06378-4) /HPF UA Bacteria (test code OCC NOT SEEN /HPF A = 63969-9) UA Squam Epi (test OCC None-Occasional code = 34709-7) /HPF UA Hyal Cast (test 2 See_Comment [Automat ed message] code = 94371-8) The system w [facility] generated this result transmitted ref erence range: 0 - 2 /L PF. The reference range was not used to int erpret this result as normal/abnormal . UA CaOx Rimma (test 1+ NOT SEEN /HPF A code = 80147-5) UA Amorph Rimma (test OCC NOT SEEN /HPF A code = 71898-1) Lab Interpretation Abnormal (test code = 19348-0) [facility]on[facility]inal[facility] w/Microscopic if Mvpbwaxcu0363-81-88 16:54:06 Test Item Value Reference Range Interpretation Comments UA Color (test code = 26073-8) Straw Straw-Yellow UA Appear (test code = 34830-0) Hazy Clear A UA Glucose (test code = 5792-7) NEG NEG mg/dL UA Bili (test code = 5770-3) NEG NEG UA Ketones (test code = 5797-6) NEG NEG mg/dL UA Spec Grav (test code = 5810-7) 1.019 1.003-1.035 UA Blood (test code = 5794-3) Large NEG A UA pH (test code = 5803-2) 5.5 5.0-9.0 UA Protein (test code = 5804-0) 30 mg/dL NEG A UA Urobilinogen (test code = 5818-0) NEG NEG UA Nitrite (test code = 5802-4) NEG NEG UA Leuk Est (test code = 5799-2) Small NEG A Lab Interpretation (test code = Abnormal 39871-5) [facility] PFT (Cerritos, DLCO, LV) 2023-07-11 00:00:00 Test Item Value Reference Range Interpretation Comments FVC (L) pre (test code = 1.381 L 2.424-3.714 L 9507) FEV1 (L) pre (test code 0.996 L 1.833-2.924 L = 9505) FEV1/FVC (%) pre (test 72.146 % 68.478-88.066 code = 9509) DLCO_SB ml/(min*mmHg) 12.545 See_Comment [Auto mated message] (test code = 9515) The syste m which generated this result transmitted ref erence range: 1.180 - 21.346 ml/(min*mmHg). The reference range was not used to int erpret this result as normal/abnormal . DLCOc_SB ml/(min*mmHg) 13.295 See_Comment [Aut omated message] (test code = 9516) The syste m which generated this result transmitted ref erence range: 1.180 - 21.346 ml/(min*mmHg). The reference range was not used to int erpret this result as normal/abnormal . TLC (L) (test code = 2.922 L 3.585-5.559 L 9513) RV (L) (test code = 1.528 L 1.210-2.361 9514) RV/TLC (%) (test code = 52.293 % 29.430-48.610 H 9517) FVC (% pred) pre (test 45 % code = 9520) FEV1 (%pred) pre (test 42 % code = 9518) FEV1/FVC (% pred) pre 92 % (test code = 9522) TLC (% pred) (test code 64 % = 9526) RV (% pred) (test code = 86 % 9527) RV/TLC (% pred) (test 134 % code = 9528) DLCO_SB (% pred) (test 110 % code = 9529) DLCOc_SB (% pred) (test 116 % code = 9530) Lab Interpretation (test Abnormal code = 12802-3) FVC (L) pre (test code = 1.381 L 2.424-3.714 L 9507) FEV1 (L) pre (test code 0.996 L 1.833-2.924 L = 9505) FEV1/FVC (%) pre (test 72.146 % 68.478-88.066 code = 9509) DLCO_SB ml/(min*mmHg) 12.545 See_Comment [Auto mated message] (test code = 9515) The syste m which generated this result transmitted ref erence range: 1.180 - 21.346 ml/(min*mmHg). The reference range was not used to int erpret this result as normal/abnormal . DLCOc_SB ml/(min*mmHg) 13.295 See_Comment [Aut omated message] (test code = 9516) The syste m which generated this result transmitted ref erence range: 1.180 - 21.346 ml/(min*mmHg). The reference range was not used to int erpret this result as normal/abnormal . TLC (L) (test code = 2.922 L 3.585-5.559 L 9513) RV (L) (test code = 1.528 L 1.210-2.361 9514) RV/TLC (%) (test code = 52.293 % 29.430-48.610 H 9517) FVC (% pred) pre (test 45 % code = 9520) FEV1 (%pred) pre (test 42 % code = 9518) FEV1/FVC (% pred) pre 92 % (test code = 9522) TLC (% pred) (test code 64 % = 9526) RV (% pred) (test code = 86 % 9527) RV/TLC (% pred) (test 134 % code = 9528) DLCO_SB (% pred) (test 110 % code = 9529) DLCOc_SB (% pred) (test 116 % code = 9530) [facility] (Marvin, DLCO, LV) 2023-07-11 00:00:00 Test Item Value Reference Range Interpretation Comments FVC (L) pre (test code = 1.381 L 2.424-3.714 L 9507) FEV1 (L) pre (test code 0.996 L 1.833-2.924 L = 9505) FEV1/FVC (%) pre (test 72.146 % 68.478-88.066 code = 9509) DLCO_SB ml/(min*mmHg) 12.545 See_Comment [Auto mated message] (test code = 9515) The syste m which generated this result transmitted ref erence range: 1.180 - 21.346 ml/(min*mmHg). The reference range was not used to int erpret this result as normal/abnormal . DLCOc_SB ml/(min*mmHg) 13.295 See_Comment [Aut omated message] (test code = 9516) The syste m which generated this result transmitted ref erence range: 1.180 - 21.346 ml/(min*mmHg). The reference range was not used to int erpret this result as normal/abnormal . TLC (L) (test code = 2.922 L 3.585-5.559 L 9513) RV (L) (test code = 1.528 L 1.210-2.361 9514) RV/TLC (%) (test code = 52.293 % 29.430-48.610 H 9517) FVC (% pred) pre (test 45 % code = 9520) FEV1 (%pred) pre (test 42 % code = 9518) FEV1/FVC (% pred) pre 92 % (test code = 9522) TLC (% pred) (test code 64 % = 9526) RV (% pred) (test code = 86 % 9527) RV/TLC (% pred) (test 134 % code = 9528) DLCO_SB (% pred) (test 110 % code = 9529) DLCOc_SB (% pred) (test 116 % code = 9530) Lab Interpretation (test Abnormal code = 87435-4) [facility] Flrewvvaa9075-55-81 15:23:55 Beta HCG, <1.7<=4.9 mIU/mLUT [facility] [id number] 15:23:55 Beta HCG, <1.7<=4.9 mIU/mLUT [facility] [id number] 15:23:55 Beta HCG, <1.7<=4.9 mIU/mLUT [facility] [id number] 16:54:53 Test Item Value Reference Range Interpretation Comments D-Dimer (test code = 4.18 See_Comment H [place] [address]-4) exclusion of ve nous thromboembolism is <0.51 mcg/mL FEUs (fi brinogen equivalent unit s). [Automated mess age] The system which ge nerated this result tra nsmitted reference range : 0.10 - 0.50 mcg/ml FEU . The reference range was not used to interpr et this result as normal/abnormal . Lab Interpretation Abnormal (test code = 45849-7) [facility] [id number] 16:54:53 Test Item Value Reference Range Interpretation Comments D-Dimer (test code = 4.18 See_Comment H [place] [address]-9) exclusion of ve nous thromboembolism is <0.51 mcg/mL FEUs (fi brinogen equivalent unit s). [Automated Solasta age] The system which ge nerated this result tra nsmitted reference range : 0.10 - 0.50 mcg/ml FEU . The reference range was not used to interpr et this result as normal/abnormal . Lab Interpretation Abnormal (test code = 46990-6) [facility] [id number] 16:54:53 Test Item Value Reference Range Interpretation Comments D-Dimer (test code = 4.18 See_Comment H [place] [address]-2) exclusion of ve nous thromboembolism is <0.51 mcg/mL FEUs (fi brinogen equivalent unit s). [Automated Solasta age] The system which ge nerated this result tra nsmitted reference range : 0.10 - 0.50 mcg/ml FEU . The reference range was not used to interpr et this result as normal/abnormal . Lab Interpretation Abnormal (test code = 36384-7) [facility]23-[facility] 21:32:06 Test Item Value Reference Range Interpretation Comments NT ProBNP (test code = 73327-9) 49 pg/mL <=125 [facility]23-[facility]26 21:31:36 Test Item Value Reference Range Interpretation Comments Troponin T (test code 7 ng/L <=19 < 19 n g/L Suggest retest = 89832-0) at 3 to 6 hours later to rule out myocar dial infarction >= 1 9 to <=52 ng/L Possible m yocardial injury. Suggest retest at 3 hours. - a ch gabriel of < 20 ng/L, retest at 6 hours - a change of > = 20 ng/L, suggestive of m yocardial infarction > 52 ng/L Suggestive of m yocardial infarction Crit ical value will be reporte d when cTnT is > 52 ng/L an d only reported for th e first in a series. Hemol yzed specimens with Hemolysis Index >100 (100 mg/dl or moderate hemoly sis) may cause interfere nces and falsely low res ults. [facility]23-[facility] 21:31:36 Test Item Value Reference Range Interpretation Comments Troponin T (test code 7 ng/L <=19 < 19 n g/L Suggest retest = 75030-5) at 3 to 6 hours later to rule out myocar dial infarction >= 1 9 to <=52 ng/L Possible m yocardial injury. Suggest retest at 3 hours. - a ch gabriel of < 20 ng/L, retest at 6 hours - a change of > = 20 ng/L, suggestive of m yocardial infarction > 52 ng/L Suggestive of m yocardial infarction Crit ical value will be reporte d when cTnT is > 52 ng/L an d only reported for th e first in a series. Hemol yzed specimens with Hemolysis Index >100 (100 mg/dl or moderate hemoly sis) may cause interfere nces and falsely low res ults. [facility] 21:31:36 Test Item Value Reference Range Interpretation Comments Troponin T (test code 7 ng/L <=19 < 19 n g/L Suggest retest = 09808-1) at 3 to 6 hours later to rule out myocar dial infarction >= 1 9 to <=52 ng/L Possible m yocardial injury. Suggest retest at 3 hours. - a ch gabriel of < 20 ng/L, retest at 6 hours - a change of >= 20 ng/L, suggestive of m yocardial infarction > 52 ng/L Suggestive of m yocardial infarction Crit ical value will be reporte d when cTnT is > 52 ng/L an d only reported for th e first in a series. Hemol yzed specimens with Hemolysis Index >100 (100 mg/dl or moderate hemoly sis) may cause interfere nces and falsely low res ults. [facility], Nasopharyngeal [id number] 23:56:33 Test Item Value Reference Range Interpretation Comments Adenovirus (test code = Not Detected Not Detected 58518-7) Coronavirus 229E (test Not Detected Not Detected code = 31907-1) Coronavirus HKU1 (test Not Detected Not Detected code = 14989-0) Coronavirus NL63 (test Not Detected Not Detected code = 01210-3) Coronavirus OC43 (test Not Detected Not Detected code = 91988-3) COVID19 (SARS-CoV-2) Not Detected Not Detected (test code = 28746-7) Human Metapneumovirus Not Detected Not Detected (test code = 11157-2) Human Not Detected Not Detected Rhinovirus/Enterovirus (test code = 97732-5) Influenza A (test code Not Detected Not Detected = 56367-1) Influenza A H1 (test Not Detected Not Detected code = 85431-7) Influenza A H1 2009 Not Detected Not Detected (test code = 78879-9) Influenza A H3 (test Not Detected Not Detected code = 36641-4) Influenza B (test code Not Detected Not Detected = 90979-9) Parainfluenza 1 (test Not Detected Not Detected code = 74879-3) Parainfluenza 2 (test Not Detected Not Detected code = 18577-7) Parainfluenza 3 (test Not Detected Not Detected code = 37817-8) Parainfluenza 4 (test Not Detected Not Detected code = 71530-3) Respiratory Syncytial Not Detected Not Detected Virus (test code = 29594-0) Bordetella Not Detected Not Detected Parapertussis (test code = 75655-5) Bordetella pertussis Not Detected Not Detected (test code = 67221-4) Chlamydiophila Not Detected Not Detected pneumoniae (test code = 47409-5) Mycoplasma pneumoniae Not Detected Not Detected (test code = 76775-4) LAZARO (test code = LAZARO) Has patient had a positive for COVID-19 result in the last 3 months?->No The BioFire RP2.1 is a real-time, nested multiplexed polymerase chain reaction test designed to simultaneously identify nucleic acids from 22 different viruses and bacteria associated with respiratory tract infection, including SARS-CoV-2, from a single nasopharyngeal swab ([employer]ACHINE OPERATOR) specimen obtained from individuals suspected of respiratory tract infections, including COVID-19. Results must be interpreted within the context of all relevant clinical and laboratory findings and should not form the sole basis for a diagnosis or treatment decision. Positive results do not rule out coninfection with other organisms. Negative results in the setting of a respiratory illness may be due to infection with pathogens that are not detected by this panel, or a lower respiratory tract infection that may not be detected by an [employer]ACHINE OPERATOR specimen. Internal controls are used to monitor all stages of the test process and assess for possible amplification inhibitors. If inhibition is detected, testing is repeated and if inhibition is confirmed the specimen is resulted as "Invalid". When an "Invalid" result occurs, it is recommended to wait 3 days before submitting a new specimen for testing if clinically indicated. This assay has been approved by the FDA for use in laboratories that have been CLIA-certified to perform moderate-complexity and high-complexity tests. The [facility] at [facility], CLIA Accreditation #[id number] and CAP Accreditation #[id number], verified the performance characteristics of this assay. [facility] Laboratory at [facility] performs the assay using the VYou System. The BioFire RP2.1 is a real-time, nested multiplexed polymerase chain reaction test designed to simultaneously identify nucleic acids from 22 different viruses and bacteria associated with respiratory tract infection, including SARS-CoV-2, from a single nasopharyngeal swab ([employer] MACHINE OPERATOR) specimen obtained from individuals suspected of respiratory tract infections, including COVID-19. Results must be interpreted within the context of all relevant clinical and laboratory findings and should not form the sole basis for a diagnosis or treatment decision. Positive results do not rule out coninfection with other organisms. Negative results in the setting of a respiratory illness may be due to infection with pathogens that are not detected by this panel, or a lower respiratory tract infection that may not be detected by an [employer] MACHINE OPERATOR specimen. Internal controls are used to monitor all stages of the test process and assess for possible amplification inhibitors. If inhibition is detected, testing is repeated and if inhibition is confirmed the specimen is resulted as "Invalid". When an "Invalid" result occurs, it is recommended to wait 3 days before submitting a new specimen for testing if clinically indicated. This assay has been approved by the FDA for use in laboratories that have been CLIA-certified to perform moderate-complexity and high-complexity tests. The Microbiology Laboratory at [facility], CLIA Accreditation #[id number] and CAP Accreditation #[id number], verified the performance characteristics of this assay. Microbiology Laboratory at [facility] performs the assay using the VYou System. [facility] -[id number] 00:24:54 Test Item Value Reference Range Interpretation Comments Guerda Ap Link (test code = 39709) [id number] Cytogenetics (Received) (test code Yes = 8304) [facility] -[id number] 00:24:54 Test Item Value Reference Range Interpretation Comments Guerda Ap Link (test code = 96042) [id number] Cytogenetics (Received) (test code Yes = 8304) [facility] -[id number] 00:24:54 Test Item Value Reference Range Interpretation Comments Guerda Ap Link (test code = 13141) [id number] Cytogenetics (Received) (test code Yes = 8304) [facility] Non-Admissions Manager Interpretation 2023-05-28 21:58:23 Test Item Value Reference Range Interpretation Comments Gross Description (test f5sxtWBpYFTseCLGFKCt code = 8687225391) SUBePA7ksKyshAm8hNmb DTKbihG7uCWvRToqc6lp NJL1g4mejsGNGysnAAAb YG0hZCabLXWiPN1hZjGy XGRlZmYxXHBhcGVydzEy IuHaVRSjvQJokAV2LXDt CJ5npetnUAhqNAmeVWAv dvN0GCEtwKKoB3RrRCYi FP7vvbwzLSV3IRKDUbkk Pg9ovUNllTyqLnOdYwZa YXJzZXQwXGZuaWwgQXJp AYy2uL3XSqcwN96lg1G0 Zoo3FGJbXFOzY4MpPJ5i RBCtlZRaW86HQnysYCA7 YBHRIhzjHdslqRwcz2Fa dCBcXHNnIFxcaWQgNTEw MDAgXFxkYiBPVlIgIiAx WzQ2BeC8NjU7KMh9DINL TTLxCpQ2Wik3DkW7IEz7 CBWpDH5qKKbaqCXjJEut HtrsFXxbS455SPacWGZw M5ZeY8ZkAMxrDyFdAAhy AMSoVNFlLSbiZFMhR0OC ICIgMTMyOTYwNiIgOTk5 GUexU0HSMHTbXCM0ODZ0 JgoxCzB1BHf2ZGPXNn5p EXY8ZJIyXDvqDKA5IMb1 MSCkZV7oTGhwoDXvOVbu l3ZcCbViSIIhXCglifY8 UVHlmtMeKHurdCnhoP8u NRWgX76ns3VZk1IySC5F IRg7agNbojzsuE8uZKOf nwZdGIjyjMPyJ6hnT1Yc XGZzMjAgMSBEaWZmIFF1 cOl1ESBwOCTcLNK8XPxr QZCmmTFqr8ytTCIkJFa1 AUCvzZflXRhlks84GKX1 z3dntSFkRFyhTndynUPr rjE8SFhESEGIYQcVZiIl EY4iTZoMV0QHRLuOTmjh EGP7FAlrmDE4z6svaZGc a7x2BHflRVQ9dHCql5Zw zTZiqDQvlOUzqUT4ZJJy ZIevx4twJAJoUBjkm3Me CKkKPYMASX4DOC5hsBN8 W0yOTIPGT5nCpEH7k5ta eJPze5e8CUwaQNM8gJpo cZiqs3eyMsdgbYI4CEac RunnzC2wmRKEQYHHVrvG AwzyeoUhYE4RDBbFLM4M kVD1s9mheLMjt8w3VWon VSI7eSuloWMxzqpryLNz cJmilq14WMB8ZWXoNYkt czIwICBmbHVpZHtcZmll bYP2PBtuXndvsW4vxIAJ JJJHTcyZPtjhfeZoCL2P LGQSJR0JmKU5AeBcdWA8 NK31CBSiPWKocGSeEGab Q858TYQxOWsjIPe7jhLt XGNmMVxmczIwXHBhciAN Xnxhis57KTE4d8vzwVXn DHndGjknqCAgylN0EPxP BJLBGDeGQuUjCA0mMYnS J7PLGCwXPzitOYN7YIdm hBU4a1quoHPfw8z8GEdz TYT9sJKeSWQdnJJnFBUw bmNlbnRyYXRlZCBieSBj mKNxT8EinCBoVkGuUDAg d40dyMVncU8ozZIsb4hm aWVsZHtcKlxmbGRpbnN0 XAvUTFRMCCjZDaJwPF9r ODkKE9OSHzN8HeJ6ZjJ0 I6bidFbpNjkobwZavZPd BsPYsA2txOaubX5uzCKd H2alW6CaOWTgEaEtyVCk NZ2QSDGealCZWsenUhYr OWEKAXgmHFBbd1BaRTXo ciANCkRhdGUvVGltZSBQ zTEuXKLzlX4zQc5ioPWv mJ40JZvlhk97JVP0s8rl aWVsZHtcKlxmbGRpbnN0 ZSeBTIAEYFvXEuPcXB5r HXqYAwiJNJsSPsz0IYL9 Crt8kEYFGDSSZXYMVVsk qKk0ZQa5aIjaEdwmbbBr cPEbBrLXkT5tFl7qQe8g J1ucFppbgGK4NCyvQzll dZ7boQLHRVIPSfmAKxnz rxZkLQ8LED3QHZ8ZqWLk ZYuwjJG1PG4AYJcEGWIL dAF2rHravZp4d4duvVFn r9k0RSyyBFT9iHupcEXj blxsdHJjaFxmczIwICBc cHJvdGVjdHtcZmllbGR7 AMvdLiwjvN9kaVBABMMZ OhfQFgmrteHfCB3WPU8B FkCOMU44KEN3KDjQH8e6 YSf1oPN3zR62FHDjPVIs cNZjRUznC186Wvy5BRBK CKrnKfbceKU8SZvqYksv pR2rhLGFLZCBGftENpbr hrXvEA0PRB1WAC6VlErf jTT7Wm4YbXT5oEbqqAz8 q3poxHMlc6b8AQkqBAI3 fVxwbGFpblxsdHJjaFxj ZjFcZnMyMFxwYXIgDQpc ZDQdQ84ek3BJt1Mgg0ag oKxsm1DapKPyJB17AQSq uYWkGUI7VW2igYowUNZk LQxapGvekC5kXGc4 Major Classification MALIGNANT A (test code = 9839) Diagnosis (test code = m9jswPIdHHLwnFHtKOYt 34) E1nwitBzIFGueZTaP0Ao pvpxOXesMJ9xBN2lpJhm lAOteNQmZWNeOkWis3bb o708sJEvg7njZUOLgwcz fOi4uRqcL13fl9F1Gbku C5glKMDhTWllCVDmBAyd wFKoFDw1XCSpaCTuxfGt OsUsZZJruKKdsVH8CCTx YG0wmuplNVccRZelDASw chE7PHPvtKJuF2WpCCSk RW0kormrGPL4LLgjBYLi LGY0AoXzGMSea0Wuscf9 HuFkpYb8f4fjNVZmENPa aNhms4crQUM3ZJLnvYRj V5kvjF4nSYHwWL1qulbw v1lsCFqjNSteMFJtmKL5 lxZ3VSXasOOaJ4UzhF1a ZJAjHJMvlnMqhXzzhP6t ZnMyMFxjZjEgUGxldXJh bCBmbHVpZCwgdGhvcmFj a1VhiyNsx2ikIojdNQBq dGFiXHBhclxsaTcyMFxs xK16DoQqg3vuD2UysFUf WU6GKTLCZJNFRWVySOCX Lv7BYYSAJH1PSBIiHHIK QnFQY6SNPqOtV7xQOYOO WCVYYO9OV9CoEWlJFI8H TRABTpQAUjCZY1SqM9IW D2zVZ00DSSslZCUsO75g bWVudClccGFyfQ== Comment (test code = n7dwrYVxMCBskIMrEPMq 9835) V6kocxIoRCVktXSjC1Cu ppnvTGuzXB3eTQ9biDzg pJJxdBPfVOOeAfWaq4aq z751eRFpv4rrVYMYtedt lQy2kDxoC97zk3D1Kiub D30hbWFkTSB3VIAuYNZc cCEzVONySLB2VFAnhUYi Q0rePQGdOD1lfxgzDVqw NClpQJYnrAP5XVYdsMEa S7EsOEOmVWnpOJQrqdz7 TfUwGe6wpOZzdTrqPRcz YXJkXHBsYWluXGZzMjAg ICqzERT0bX0dDZGgtZmv IGFyZSBzdHJvbmdseSBw e7AzsRz6SGQer0DkQNFv PJgkOQdwFI9cR6U5zCUt IGZvciBQUiBhbmQgSGVy CzRRNXXgjSWrBiJ3axKv Lu7pxXYcZTKerKBas290 mr8tvvEqpoQsPOGpkh3s amgmvXXnMXeUEr5fRKT9 JPECE3mot2ufwNMlDSRo MCQzu7RsRIBkDO3qPFHt WHIxIAE1kQStZNdmfGai YmUgaXNzdWVkIGluIGEg v2LmJWOarSHdwwLes3Q4 LlxwYXJccGFyfQ== Retained/Biomarker m7ledJVtOZOuaDYyXHKq Testing (test code = K3v8yGQoy0O7dnhhKW3r 9838) tApsgYb5aXjxOFDluoX9 rTJuOUabp3dsPTF9t6rs ddekQFNlZXlcOe6jwLOj bSciFoErAORcUBj1eO18 TTMooW0uoOHgUPd7VLVw cGVydzEyMjQwXHBhcGVy bOY4EIDyGO9ltabtCXad MZmkJDYumaI3SDGhrEGj J2OzKBKpZT1bysfwGNL2 JGhqPEZtFJK1CcWqUXMb c6Nmzkr1QlHixKGwKSkj bGFpblxmczIwIFNSOiA0 MDSqUUWbR2NmLZWeMIBm jGReSMIibeHJxW7gTSKe ZXIgVGVzdGluZyBccGFy XGxpNzIwXGxpbjcyMCBN HTrrK4WaqNNPoN9ecmzx JaTwU9ebULXkYUWYSGGy rOtnLDGxb5SsL0F6HHZo YTfsk6mjCKImVDjvq2Em CQeEDAQLOZ2EFE8mdED7 SNkMJLOAD9cFfZQ4Axqu bTZ5OW22LZDeRTGvzBFs EZwbQ962WXHltRTPSYPm QFTbgPFiaWVmnNW8HKLb VUhmt6wqFIQdDLlfo4Tv LMxKTCLSFP8DCY9icOG3 Q1bPXDLWC8jBeEP9x6qd zBUtr2x8RRkeKAR7rIO3 QKQuVCwrw8qoXAUeBTio l6KkGWjRHIVTTX7KTZ2z sXO1O7tSUHOHHKwfyYbs OeteydHebFPfHgMkhZ2b mTsvsS8nbUEkiTSnrVvb fvWnMRIEmKnyWGD9GCIr SWrqg2phETTuNXlip5Jg FQeKJQITAD3ZZX1oiKK4 VEsACWVCAXtfNUO2LYno zRR8x5pdnYIhp8c3XUhe ABG9iZledFHuzzmxlhXn ECVflpTWHMmlPLE3SYfs gx58WIQ0d6ateGEnOYsd JxxgwSAbvlP8HJnWLIFQ YKoVOtNwTN8qPVpAB0IM LOkFMagkPFW0JKbngFN1 x1ccpXPxo0a5NOztJXZ6 bDkaeZxwD0pAGVFfQQHw i3CgE3Pdm1bxdJViZBwc QcelrAAjhyZ8OLgBMLIC JYaZIcWxAL3nHJpTJHIE AFuROru7kDltQqfnkwXt sEHnAfPsrB0zt4tcoROu YVxeVqxkpRMpwnG2JTeV RLFUVFdCFxXaBF2fAEdU WROUXdF7KY48NXGxLGRn oMPkRCkjT478WTMbSErx OXXnf3FcI6RnKxBdPCXz K7hyHSYul2rivQRwWGnm ZlbflMOkxeH3SSfNIDNR UJrFZqXqBI0dUVaGL8WZ VmW1BeR3BjB6C5rglIbj EekmexWhmFWdPkVjfA9g eIogeA4eIyZuDRtmBBSj bGkwXGZpNzIwXGxpbjAg AfxZQBFELIyqNXRkj7Aj S5Q8NWHtEQwlz3exBNTn JKgvl7UaTWrTXTMXQY4W PS5zbGP9ZNwKNJTFH9iB zKP2DwfxoPN2DL72VUUo QKDugBWyCIfeI729UOPf aWNTTFAxICBccHJvdGVj rIE0LCRrLLyko9tvTAGt POlyn1YkMKkPGWMXDQ6A MR7qgGK5V2fWZVVOB0pJ dPT5v0knpSLss9c8FOob TGE3rBK2HJZpRXytf4rh WQTdVLvtu7BnMFsWLDGF VV5TBY3poOT6E5aGHURY OSr2hIotAkreihQezBOg BoCpeR4bcJmouC2xcONa dGVjdFxmczIwICBTbGlk YSW4ZKQdHPfwv8fsCTOo DAxdc1QlPBgDSSGOPR1Y WW7cfXO6TRnPWHKNDRng YMF8KAj9aZL4f7louPBd p1k0VComKTH3sMoxiJDr blxmczIwXHBhclxwYXJk XC6vz2wgK5RczPMuFJTe oxc7PIRLSUVIOMrUWU8B PQKENAHTGY6SGKsIZpVt DFZ2GTzePKX3ZmBmZzG7 CdX2Au1qXtj1YsC8Jyym kDT3Ntp7VxLAWKTDPAfO I4WmCCWMBBYWPYIuUC9E WZpOLUZRFETTG32NBSTD KUISI2AJB6uQPWOtfbIi fTRcezFcfTZcezFXSUxE W7RPVN8HEUIGVGJTBG0F DpRuQOgUD9YAM5bZTMZy FNUVAMXCUYEvNyFZVO9i IKo4On3nM4yqXMYtWgO8 ZsstUR2iVHbWzx6QzJen XKZ2McE1ErYsmZUbm19v A5FsbBQuukbsUYH8KYa1 MHIOTQPFRV8PMHEIS65S VONQGGCLV9YBVCQANlZN TONMT66EQHLQOVASO4RS Y0mEGMANLrXOKSLZS46O BMSMWHBSR9RFLKTJTZEO ZmNSWhTEBE4VLHMJETGL EE6BKMeZHrQaJCZFK4XG QqALY8zmVDAWYKKDQPAj RU5EfQ== Informational Points n5slrKFgXSAcuBPiGeAj (test code = 9836) XDIwWZFty1grFPEcfLMq ZzEwMzNcZnRuYmpcdWMx OFHuWcNhv2qbo464tBUc g0foHFRxCiB0pUAmOABa iDLnD809HMYeFLnbj3jr n2ToCNHuoYDqn9L4YIDI UMubTFWWEKr1j6obHsHc HpR3pWNoCBxpO2sogxIg tQOoBZQwKTy3dU71LDXt bN5vzYMgGUechyIsLfE2 VJxvYOOzUsX7NDOdjTRe KCZsH7nwCAPrGXkgXYGq FQhdcMDwYFM2xVdsa7F1 bGVzaGVldHtcZjBcZnMy GtINa6JxIDc4gQjmN5Rk FVOzIbC8xQBlHWZyGZna AHVcEMEgzfT6bE17EKno eyD6zXGri6Tre83nz220 bC6soUDgJYX6MAXfFDUq kJFrCRYtGAO4YTZfwXGe X0agMFWcKJ8mxtxjOLlh ZJbrTXAtwDB6VFObqOHg I4AaXTIlEFxqAVPgqqj5 CvNhLd7wqNRohDlbHWch y5cji4lkkVQeHbm3JZUk WfAxKymlHBzyy7Nco7wq OYHgqp1qVYU3iACqjFkz k4H7nIPaJROapJUysjJi EWNhSlJ6XBkbCY0gai40 YUCfNJM3sc2twRFdoObu nvTmfFIhGJmlI1BfDBJg y369ZGXbM8XlNLRmz8G7 tqJtYpYfIEQgyHG5yiQ3 MYPhQIm6jLWjkeG3yoCc uFApQ6eqpV4cHMJyUR7x oiqqb9hyKOprVBwbKMPb cJF5kpQ2USDtcPJrV5Dw tM1bEVIeAMhaDMToufj8 ScWpEx5rpDJjqSzfSWbj YmtwYWdlXHBnbmNvbnRc cGduZGVjXHBsYWluXHBs YWluXGYwXGZzMjRccWxc tUtxiR2gWtNpYhPzCMpq AG7vUVLlC6apgZKrYSCl MUZuO4ttCvHbgW1mpMre LMvpvzF9IBhiL42aNTK6 GRZ2ghAmSAMhuqXyZHHi CMMaHJ0uzSLzDBUyHPVo IX0aFKB3FOwynUEkTQDf YGMdQYUik7NwWS7yZDPw jPCkFIJ8ETHei3NfK5Zd VJR2QORafL3iJLAzaIVM VCBNRCBBbmRlcnNvbiBQ BGXoz1pjG9lwOQ7yPPpo Ri6oUOWqnuifLTMgzWVz ygZhSDAvZRBbZLPbr1Ah AFukslZdmg88EGZrVL7p d8QkP8hizZHbmDp2VVYy WRQhYWZzz8ObCJEdzh75 WBHhIopyeYizJOKbAw7j Jt1tIUFivtFjMXN9MjVB QO7iqobdfXQyrVxpyi8d XHBsYWluXGYyXGZzMjJc bGFuZzEwMzNcaGljaFxm NeqdMxAjJBYbSBcdF1vq ZjJcZnMyMlxwYXJ9 Lab Interpretation (test Abnormal code = 88992-5) [facility] [id number] 13:12:14 Test Item Value Reference Range Interpretation Comments Final Report (test No growth code = 8488) Gram Stain Report Few WBC's seenNo (test code = organisms seen. 22215-0) LAZARO (test code = Tube number 3 to LAZARO) Microbiology [facility] [id number] 13:12:14 Test Item Value Reference Range Interpretation Comments Final Report (test No growth code = 8488) Gram Stain Report Few WBC's seenNo (test code = organisms seen. 14696-5) LAZARO (test code = Tube number 3 to LAZARO) [facility] [id number] 13:12:14 Test Item Value Reference Range Interpretation Comments Final Report (test No growth code = 8488) Gram Stain Report Few WBC's seenNo (test code = organisms seen. 53846-6) LAZARO (test code = Tube number 3 to LAZARO) [facility] Diff Path Review 2023-05-22 15:14:27 Test Item Value Reference Range Interpretation Comments Body Fluid Metastatic Diff Interp carcinoma. (test code = NAIMA CANDELARIO MD - 8754) 72030Kpqcrgzx b y: NAIMA CANDELARIO MD - [id number] ictated Date/Time: 05.10 10:14 AM CDT Transcribed Aquilino e/Time: 05.22.2023 10:1 4 AM CDTElectronical ly Signed By: NAIMA CANDELARIO MD - [id number] on 05.10 10:14 AM LAZARO (test code Tube number 2 to = LAZARO) [facility] [id number] 02:33:18 Test Item Value Reference Range Interpretation Comments Tot Cells BF (test 100 code = 7636) Neut BF (test code 3 % 0-25 = 6489) Lymph BF (test 43 % This assay bower s code = 6187) been validated for body fluids. No reference range s have been established. Te st results should be interpreted in context with th e patient s clinical condition. Pathologist consult is available. Histiocyte BF 13 % This assay has (test code = 5907) been kahlil dated for body fluids. No reference range s have been established. Te st results should be interpreted in context with th e patient s clinical condition. Pathologist consult is available. Other Cell BF 41 % This assay has (test code = 6577) been kahlil dated for body fluids. No reference range s have been established. Te st results should be interpreted in context with th e patient s clinical condition. Pathologist consult is available. LAZARO (test code = Tube number 2 to LAZARO) [facility]Cell Count [id number] 02:29:51 Test Item Value Reference Range Interpretation Comments Type BF (test Pleural, Right code = 7671) Appear BF (test CLEAR code = 4819) WBC BF (test 441 See_Comment This assay has been code = 8035) validated for b hung fluids. No refe rence ranges have bee n established. Te st results should be interpreted in context with th e patient s clinical condition. Pathologist con sult is available. [Automated mess age] The system [employer] generated this result transmit amriana reference range : /mcL. The refer ence range was not u sed to interpret th is result as normal/abnormal . RBC BF (test See_Comment This assay has been code = 6933) validated for b hung fluids. No refe rence ranges have bee n established. Te st results should be interpreted in context with th e patient s clinical condition. Pathologist con sult is available. [Automated mess age] The system [employer] generated this result transmit mariana reference range : /mcL. The refer ence range was not u sed to interpret th is result as normal/abnormal . LAZARO (test code Tube number 2 to = LAZARO) Hematology [facility], [id number] 21:07:17 Test Item Value Reference Range Interpretation Comments LDH BF Type Pleural fluid (test code = 6118) LDH BF (test 227 U/L This body fluid test has code = 6117) not been cleare d or approved by the FDA. Its performance characteristics have been validated by ou r laboratory. No reference ranges have bee n established unl ess otherwise state d. Comparison of t his result with the concen tration in the blood (seru m or plasma) is alfredo mmended. The test result must be interpreted in conjunction wit h the patient s clinical cont ext. LAZARO (test code Pleural fluid = LAZARO) [facility], [id number] 21:07:17 Test Item Value Reference Range Interpretation Comments LDH BF Type Pleural fluid (test code = 6118) LDH BF (test 227 U/L This body fluid test has code = 6117) not been cleare d or approved by the FDA. Its performance characteristics have been validated by ou r laboratory. No reference ranges have bee n established unl ess otherwise state d. Comparison of t his result with the concen tration in the blood (seru m or plasma) is alfredo mmended. The test result must be interpreted in conjunction wit h the patient s clinical cont ext. LAZARO (test code Pleural fluid = LAZARO) [facility], [id number] 21:07:17 Test Item Value Reference Range Interpretation Comments LDH BF Type Pleural fluid (test code = 6118) LDH BF (test 227 U/L This body fluid test has code = 6117) not been cleare d or approved by the FDA. Its performance characteristics have been validated by ou r laboratory. No reference ranges have bee n established unl ess otherwise state d. Comparison of t his result with the concen tration in the blood (seru m or plasma) is alfredo mmended. The test result must be interpreted in conjunction wit h the patient s clinical cont ext. LAZARO (test code Pleural fluid = LAZARO) [facility] [id number] 21:07:16 Test Item Value Reference Range Interpretation Comments Trig BF (test 20 mg/dL This body flui d test code = 7656) has not been cl eared or approved by the FDA. Its performance characteristics have been validated by our laboratory. No reference range s have been establishe d unless otherwise state d. Comparison of t his result with the concentration i n the blood (serum or plasma) is recommended. The test result mus t be interpreted in conjunction wit h the patient s clinical cont ext. Trig BF Type Pleural, Right (test code = 7657) LAZARO (test Tube number 1 to code = LAZARO) [facility] [id number] 21:07:16 Test Item Value Reference Range Interpretation Comments Trig BF (test 20 mg/dL This body flui d test code = 7656) has not been cl eared or approved by the FDA. Its performance characteristics have been validated by our laboratory. No reference range s have been establishe d unless otherwise state d. Comparison of t his result with the concentration i n the blood (serum or plasma) is recommended. The test result mus t be interpreted in conjunction wit h the patient s clinical cont ext. Trig BF Type Pleural, Right (test code = 7657) LAZARO (test Tube number 1 to code = LAZARO) [facility] [id number] 21:07:16 Test Item Value Reference Range Interpretation Comments Trig BF (test 20 mg/dL This body flui d test code = 7656) has not been cl eared or approved by the FDA. Its performance characteristics have been validated by our laboratory. No reference range s have been establishe d unless otherwise state d. Comparison of t his result with the concentration i n the blood (serum or plasma) is recommended. The test result mus t be interpreted in conjunction wit h the patient s clinical cont ext. Trig BF Type Pleural, Right (test code = 7657) LAZARO (test Tube number 1 to code = LAZARO) [facility] Body [id number] 21:07:15 Test Item Value Reference Range Interpretation Comments Glucose BF 155 mg/dL This body fluid test (test code = has not been cl eared 5696) or approved by the FDA. Its perfor john characteristics have been validated by our laboratory. No reference range s have been establishe d unless otherwis e stated. Compari son of this result wit h the concentration i n the blood (serum or plasma) is recommended. Th e test result must be interpreted in conjunction wit h the patient s clinical cont ext. Gluc BF Type Pleural fluid (test code = 5693) LAZARO (test code Tube number 1 to = LAZARO) [facility] Body [id number] 21:07:15 Test Item Value Reference Range Interpretation Comments Glucose BF 155 mg/dL This body fluid test (test code = has not been cl eared 5696) or approved by the FDA. Its perfor john characteristics have been validated by our laboratory. No reference range s have been establishe d unless otherwis e stated. Compari son of this result wit h the concentration i n the blood (serum or plasma) is recommended. Th e test result must be interpreted in conjunction wit h the patient s clinical cont ext. Gluc BF Type Pleural fluid (test code = 5693) LAZARO (test code Tube number 1 to = LAZARO) [facility] Body [id number] 21:07:15 Test Item Value Reference Range Interpretation Comments Glucose BF 155 mg/dL This body fluid test (test code = has not been cl eared 5696) or approved by the FDA. Its perfor john characteristics have been validated by our laboratory. No reference range s have been establishe d unless otherwis e stated. Compari son of this result wit h the concentration i n the blood (serum or plasma) is recommended. Th e test result must be interpreted in conjunction wit h the patient s clinical cont ext. Gluc BF Type Pleural fluid (test code = 5693) LAZARO (test code Tube number 1 to = LAZARO) Chemistry [facility] HospitalProtein [id number] 21:07:14 Test Item Value Reference Range Interpretation Comments Protein BF 4.4 gm/dL This body fluid test (test code = has not been cl eared 6891) or approved by the FDA. Its perfor john characteristics have been validated by our laboratory. No reference range s have been establishe d unless otherwis e stated. Compari son of this result wit h the concentration i n the blood (serum or plasma) is recommended. Th e test result must be interpreted in conjunction wit h the patient s clinical cont ext. Prot BF Type Pleural fluid (test code = 6890) LAZARO (test code Tube 1 to = LAZARO) [facility] [id number] 21:07:14 Test Item Value Reference Range Interpretation Comments Protein BF 4.4 gm/dL This body fluid test (test code = has not been cl eared 6891) or approved by the FDA. Its perfor john characteristics have been validated by our laboratory. No reference range s have been establishe d unless otherwis e stated. Compari son of this result wit h the concentration i n the blood (serum or plasma) is recommended. Th e test result must be interpreted in conjunction wit h the patient s clinical cont ext. Prot BF Type Pleural fluid (test code = 6890) LAZARO (test code Tube 1 to = LAZARO) [facility] [id number] 21:07:14 Test Item Value Reference Range Interpretation Comments Protein BF 4.4 gm/dL This body fluid test (test code = has not been cl eared 6891) or approved by the FDA. Its perfor john characteristics have been validated by our laboratory. No reference range s have been establishe d unless otherwis e stated. Compari son of this result wit h the concentration i n the blood (serum or plasma) is recommended. Th e test result must be interpreted in conjunction wit h the patient s clinical cont ext. Prot BF Type Pleural fluid (test code = 6890) LAZARO (test code Tube 1 to = LAZARO) [facility] [id number] 21:07:13 Test Item Value Reference Range Interpretation Comments Chol BF (test 87 mg/dL This body flui d test code = 5284) has not been cl eared or approved by the FDA. Its performance characteristics have been validated by our laboratory. No reference range s have been establishe d unless otherwise state d. Comparison of t his result with the concentration i n the blood (serum or plasma) is recommended. The test result mus t be interpreted in conjunction wit h the patient s clinical cont ext. Chol BF Type Pleural fluid (test code = 5285) LAZARO (test Tube number 1 to code = LAZARO) [facility] [id number] 21:07:13 Test Item Value Reference Range Interpretation Comments Chol BF (test 87 mg/dL This body flui d test code = 5284) has not been cl eared or approved by the FDA. Its performance characteristics have been validated by our laboratory. No reference range s have been establishe d unless otherwise state d. Comparison of t his result with the concentration i n the blood (serum or plasma) is recommended. The test result mus t be interpreted in conjunction wit h the patient s clinical cont ext. Chol BF Type Pleural fluid (test code = 5285) LAZRAO (test Tube number 1 to code = LAZARO) [facility] [id number] 21:07:13 Test Item Value Reference Range Interpretation Comments Chol BF (test 87 mg/dL This body flui d test code = 5284) has not been cl eared or approved by the FDA. Its performance characteristics have been validated by our laboratory. No reference range s have been establishe d unless otherwise state d. Comparison of t his result with the concentration i n the blood (serum or plasma) is recommended. The test result mus t be interpreted in conjunction wit h the patient s clinical cont ext. Chol BF Type Pleural fluid (test code = 5285) LAZARO (test Tube number 1 to code = LAZARO) [facility] Body [id number] 21:07:11 Test Item Value Reference Range Interpretation Comments Amylase BF 34 U/L This body fluid test (test code = has not been cl eared 4805) or approved by the FDA. Its perfor john characteristics have been validated by our laboratory. No reference range s have been establishe d unless otherwis e stated. Compari son of this result wit h the concentration i n the blood (serum or plasma) is recommended. Th e test result must be interpreted in conjunction wit h the patient s clinical cont ext. Amyl BF Type Pleural fluid (test code = 4804) LAZARO (test code Tube number 1 to = LAZARO) [facility] Body [id number] 21:07:11 Test Item Value Reference Range Interpretation Comments Amylase BF 34 U/L This body fluid test (test code = has not been cl eared 4805) or approved by the FDA. Its perfor john characteristics have been validated by our laboratory. No reference range s have been establishe d unless otherwis e stated. Compari son of this result wit h the concentration i n the blood (serum or plasma) is recommended. Th e test result must be interpreted in conjunction wit h the patient s clinical cont ext. Amyl BF Type Pleural fluid (test code = 4804) LAZARO (test code Tube number 1 to = LAZARO) [facility] Body [id number] 21:07:11 Test Item Value Reference Range Interpretation Comments Amylase BF 34 U/L This body fluid test (test code = has not been cl eared 4805) or approved by the FDA. Its perfor john characteristics have been validated by our laboratory. No reference range s have been establishe d unless otherwis e stated. Compari son of this result wit h the concentration i n the blood (serum or plasma) is recommended. Th e test result must be interpreted in conjunction wit h the patient s clinical cont ext. Amyl BF Type Pleural fluid (test code = 4804) LAZARO (test code Tube number 1 to = LAZARO) [facility] [id number] 01:40:18 Test Item Value Reference Range Interpretation Comments Final Report (test No growth code = 8488) Path Review - Immunity and antibiotic Bottle/Isolator use may render culture (test code = 8499) negative. Ongoing infection requires repeat culture.The results have been reviewed and electronically signed by Pathologist:LUKE HOLLIS MD #[id number] [facility] [id number] 04:04:40 Test Item Value Reference Range Interpretation Comments ABORh Manual (test code = 882-1) O POS [facility]
[2023-09-04 02:42] LABS: Arterial Blood Carboxyhemoglob 0.7 % (0-1.5); Blood Gas Oxyhemoglobin 96.9 % (94-97); Blood O2 Saturation 99.2 % (92-98.5)
[2023-09-04] MEDS ORDERED: METHYLPREDNISOLONE 125 MG INJ ONE (02:53)
[2023-09-04] MEDS ORDERED: LORAZEPAM 1 MG TABLET ONE (02:53)
[2023-09-04] MEDS ORDERED: LEVALBUTEROL 1.25 MG/3 ML NEB ONE (02:55)
[2023-09-04] MEDS ORDERED: ALBUTEROL 2.5 MG/3 ML NEB SOL ONE ×3 (03:03→13:50)
[2023-09-04] MEDS ORDERED: AZITHROMYCIN 500 MG INJ IVPB ONE (03:46)
[2023-09-04] MEDS ORDERED: CEFTRIAXONE 1000 MG/VIAL ONE (03:46)
[2023-09-04] MEDS ORDERED: NA CHLORIDE 0.9% 250 ML ONE ×2 (03:46→05:22)
[2023-09-04] MEDS ORDERED: NA CHLORIDE 0.9% 50 ML ONE (03:47)
[2023-09-04] MEDS ORDERED: ONDANSETRON 4 MG/2 ML VIAL ONE ×2 (03:53→13:43)
[2023-09-04 03:55] LABS: Absolute Lymphocytes (CBC) 0.6 K/uL (0.7-4.9); Hematocrit 28.5 % (36.0-45.0); Lymphocytes % 9.3 % (15.3-44.8); MCV 90.9 fL (80-100); MPV 6.9 fL (7.6-11.3); Platelets 362 thou/uL (152-406); RBC Red Blood Cell Count 3.14 M/uL (3.86-4.86)
[2023-09-04 03:59] LABS: Protime INR 1.05
[2023-09-04 04:22] LABS: Bilirubin Direct 0.2 mg/dL (0-0.2); Bilirubin Indirect, Calculated 0.3 mg/dL (0.2-0.8); Bilirubin Total 0.5 mg/dL (0.2-1.0); Magnesium 2.4 mg/dL (1.6-2.4); Potassium 3.8 mEq/L (3.5-5.1); Protein, Total 7.2 g/dL (6.4-8.2); Troponin High Sensitivity 10.9 pg/mL (<58.9)
[2023-09-04] MEDS ORDERED: ACETAMINOPHEN 325 MG TABLET PO PRN (04:58)
[2023-09-04] MEDS ORDERED: NA CHLORIDE 0.9% 1,000 ML IV SCH (05:00)
--- NOTE | 2023-09-04 05:00 | ER ---
Nurse's Notes [facility] Name: Arlene Lane Age: 57 yrs Sex: Female : 1965 Arrival Date: 09/04/2023 Time: 02:09 Bed 4 Private MD: Diagnosis: Unspecified bacterial pneumonia;Left upper lung pneumonia, acute respiratory distress, breast cancer metastatic to the lung, anemia of chronic disease Presentation: 09/04 02:15 Chief complaint: Patient states: CP TIGHTNESS AND SOB. NOT ON CHEMO. RADIATION THERAPY rv X 2 DAYS AGO. EMS states: SUDDEN ONSET OF SOB. WITH HX OF BREAST CA WITH LUNG METS. 96-97% ON OXYGEN MASK. Coronavirus screen: At this time, the client does not indicate any symptoms associated with coronavirus-19. Ebola Screen: No symptoms or risks identified at this time. Initial Sepsis Screen: Does the patient meet any 2 criteria? No. Patient's initial sepsis screen is negative. Does the patient have a suspected source of infection? No. Patient's initial sepsis screen is negative. Risk Assessment: Do you want to hurt yourself or someone else? Patient reports no desire to harm self or others. Onset of symptoms was September 04, 2023. 02:15 Method Of Arrival: EMS: [facility] rv 02:15 Acuity: JOSHUA 2 rv Triage Assessment: 02:17 General: Appears uncomfortable, Behavior is anxious. Pain: Complains of pain in chest. rv Neuro: Level of Consciousness is awake, alert, obeys commands, Oriented to person, place, time, situation. Cardiovascular: Reports chest pain. Respiratory: Airway is patent Respiratory effort is even, unlabored, Respiratory pattern is regular. GI: No signs and/or symptoms were reported involving the gastrointestinal system. : No signs and/or symptoms were reported regarding the genitourinary system. Derm: Skin is intact. Historical: - Allergies: 02:17 [place]; rv - PMHx: 02:17 Cancer; rv - PSHx: 02:17 FRANCY mesectomy; rv - Immunization history:: Adult Immunizations up to date. - Social history:: Smoking status: Patient denies any tobacco usage or history of. - Family history:: not pertinent. Screenin:19 [facility] ED Fall Risk Assessment (Adult) History of falling in the last 3 months, rv including since admission No falls in past 3 months (0 pts) Score/Fall Risk Level 0 - 2 = Low Risk Oriented to surroundings, Maintained a safe environment, Educated pt \T\ family on fall prevention, incl call for assistance when getting out of bed, Assessed \T\ reinforced patient's understanding of fall precautions, Provided non-skid footwear, Hourly rounding (assess needs \T\ fall precautionary measures) done, Used ambulatory aids as needed (educated on \T\ assisted with), Used gait belt as appropriate. Abuse screen: Denies threats or abuse. Denies injuries from another. Nutritional screening: No deficits noted. Tuberculosis screening: No symptoms or risk factors identified. Assessment: 02:12 Reassessment: see triage assessment. ha1 03:30 Reassessment: pt. requesting non-rebrether mask. oxygen sat. at 97 on nasal canula on ha1 four liters. 04:00 Reassessment: Patient and/or family updated on plan of care and expected duration. Pain ha1 level reassessed. Patient is alert, oriented x 3, equal unlabored respirations, skin warm/dry/pink. 05:00 Reassessment: Patient and/or family updated on plan of care and expected duration. Pain ha1 level reassessed. Patient is alert, oriented x 3, equal unlabored respirations, skin warm/dry/pink. Patient states symptoms have improved. 06:00 Reassessment: Patient and/or family updated on plan of care and expected duration. Pain ha1 level reassessed. Patient is alert, oriented x 3, equal unlabored respirations, skin warm/dry/pink. 07:00 Reassessment: Patient appears in no apparent distress at this time. No changes from [facility] previously documented assessment. Patient and/or family updated on plan of care and expected duration. Pain level reassessed. 08:00 Reassessment: Patient appears in no apparent distress at this time. No changes from [facility] previously documented assessment. Patient and/or family updated on plan of care and expected duration. Pain level reassessed. 08:30 Reassessment: please see [facility] for further charting. [facility] Vital Signs: 02:15 BP 151 / 95; Pulse 104; Resp 19; Temp 98; Pulse Ox 93% on 3 lpm NC; rv 02:15 Weight 68 kg; rv 02:30 BP 150 / 88; Pulse 106; Resp 20 S; Pulse Ox 100% on 10 lpm Simple Mask; ha1 04:38 BP 137 / 88; Pulse 90; Resp 17 S; Pulse Ox 100% on 5 lpm NC; ha1 05:30 BP 134 / 94; Pulse 88; Resp 17 S; Pulse Ox 100% on 5 lpm NC; ha1 07:42 BP 168 / 96; Pulse 88; Resp 19 S; Pulse Ox 96% on 5 lpm NC; kc6 08:31 BP 136 / 82; Pulse 89; Resp 20 S; Pulse Ox 98% on 5 lpm NC; kc6 ED Course: 02:12 Patient arrived in ED. rv1 02:14 Igor Parra MD is Attending Physician. sp4 02:15 Da Curtis RN is Primary Nurse. rv 02:17 Triage completed. rv 02:17 Arm band placed on right wrist. rv 02:19 Patient has correct armband on for positive identification. Client placed on continuous rv cardiac and pulse oximetry monitoring. NIBP monitoring applied. patient monitor on. 02:26 XRAY CXR (1 view) In Process Unspecified. EDMS 03:05 Radiology exam delayed due to lab results not completed at this time. (BUN/Creatinine) eh4 IV insertion attempt and/or patient not having appropriate IV at this time. 04:58 Bakari Buckley MD is Hospitalizing Provider. sp4 05:01 CT Chest W/ Con In Process Unspecified. EDMS 07:00 Report received from VITOR Garcia \T\ Frances Puente RN. [facility] 15:25 No provider procedures requiring assistance completed. Patient admitted, IV remains in kc6 place. Administered Medications: 02:40 Drug: LORazepam PO 1 mg PO once Route: PO; ha1 02:40 Drug: LORazepam PO 1 mg PO once Route: PO; ha1 03:20 Follow up: Response: No adverse reaction; Anxiety decreased; RASS: Alert and Calm (0) ha1 03:20 Follow up: Response: No adverse reaction; Anxiety decreased ha1 03:07 Drug: Albuterol Inhalation 1.25 mg Inhalation once Route: Inhalation; ha1 03:07 Drug: MethylPrednisoLONE IVP 125 mg IVP once Route: IVP; Site: left antecubital; ha1 03:40 Drug: Ondansetron IVP 4 mg IVP once; over 2 minutes Route: IVP; Site: left antecubital; ha1 04:00 Follow up: Response: No adverse reaction ha1 03:42 Drug: Rocephin - Rocephin (cefTRIAXone) IVPB 1 grams IVPB once over 30 mins; (mix in 50 ha1 mL NS) Route: IVPB; Infused Over: 30 mins; Site: left antecubital; 04:00 Follow up: Response: No adverse reaction ha1 04:09 Drug: Zithromax IVPB 500 mg IVPB once over 1 hrs; mix in 250 mL NS Route: IVPB; Infused ha1 Over: 1 hrs; Site: left antecubital; 05:10 Follow up: Response: No adverse reaction; IV Status: Completed infusion; IV Intake: ha1 250ml 05:02 Drug: HYDROmorphone PO 2 mg PO once Route: PO; ha1 05:30 Follow up: Response: No adverse reaction; Pain is decreased; RASS: Alert and Calm (0) ha1 05:02 Drug: Promethazine PO 25 mg PO once Route: PO; ha1 05:30 Follow up: Response: No adverse reaction ha1 06:34 Drug: vancoMYCIN IVPB 1 grams IVPB once over 2 hrs Route: IVPB; Infused Over: 2 hrs; ha1 Site: left antecubital; Medication: 02:19 VIS not applicable for this client. rv Intake: 05:10 IV: 250ml; Total: 250ml. ha1 Outcome: 04:59 Decision to Hospitalize by Provider. sp4 15:25 Admitted to Med/surg accompanied by tech, via stretcher, with oxygen, with chart, kc6 Report called to VITOR Alvarado 15:25 Condition: stable 15:25 Instructed on the need for admit, 15:26 Patient left the ED. kc6 Signatures: Dispatcher [employer] EDMS Da Curtis RN RN rv Frances Puente RN RN ha1 Estrellita Moran RN RN kc6 Sharlene [facility] Sally Babcock rv1 Igor Parra MD MD sp4 Corrections: (The following items were deleted from the chart) 05:52 05:15 Reassessment: going to CT. RT at bedside ha1 ha1 08:31 07:00 Reassessment: Patient appears in no apparent distress at this time. No changes kc6 from previously documented assessment. Patient and/or family updated on plan of care and expected duration. Pain level reassessed. Patient is alert, oriented x 3, equal unlabored respirations, skin warm/dry/pink. kc6
--- NOTE | 2023-09-04 05:00 | EDPHYS ---
Physician Documentation [facility] Name: Arlene Lane Age: 57 yrs Sex: Female : 1965 Arrival Date: 09/04/2023 Time: 02:09 Bed 4 Private MD: ED Physician Igor Parra HPI: 09/04 02:25 This 57 yrs old Female presents to ER via EMS with complaints of Dyspnea and sp4 anxiety . 02:35 57-year-old female presents with EMS for acutely worsening dyspnea on arrival just sp4 prior to. Patient woke up just prior to arrival and developed severe shortness of breath associated with cough and chest tightness. Patient has history of metastatic breast cancer to lungs, bilateral mastectomy, pleural effusion with pleurodesis, currently being managed at [facility] with radiation. Additional history includes hypothyroidism, anxiety, insomnia, medication list includes alprazolam, [place] Thyroid, gabapentin, hydromorphone 2 mg p.o. every 4 hours as needed, omeprazole 40 mg p.o. daily, venlafaxine Exar 75 mg p.o. daily. Patient has pleurodesis on the right side secondary to prior pleural effusion, metastatic lesions in the lungs and in the spine, currently on radiation therapy at [facility], patient was managed at this hospital from 08/17/2023 through 08/21/2023. For shortness of breath, acute respiratory failure with hypoxemia secondary to pneumonitis, metastatic breast cancer status post bilateral mastectomy, radiation, stenting of the left ureter due to tumor invasion, hypertensive urgency, hypothyroidism, anxiety and microscopic hematuria. CT chest angiography revealed no pulmonary emboli, hazy groundglass opacification in the left upper lobe, multiple solid pulmonary nodules throughout the lungs compatible with metastatic disease, small loculated right pleural effusion, cardiomegaly with coronary artery atherosclerosis, mixed lytic and sclerosed lesion throughout the visualized osseous structures concerning for metastatic disease. Patient was discharged on 08/21/2023 with prednisone and levofloxacin. Patient states she is currently on home oxygen. Home medications include all alprazolam 1 tablet daily, [place] Thyroid 120 mg p.o. daily, gabapentin 600 mg p.o. at bedtime, hydromorphone 2 mg p.o. every 4 hours as needed, omeprazole 40 mg p.o. daily, Effexor sore 75 mg p.o. daily, amlodipine 5 mg p.o. daily, levofloxacin prescribed during last discharge 750 mg p.o. daily for 5 days. Prednisone 10 mg p.o. twice daily for 14 days.. Historical: - Allergies: 02:17 [place]; rv - PMHx: 02:17 Cancer; rv - PSHx: 02:17 FRANCY mesectomy; rv - Immunization history:: Adult Immunizations up to date. - Social history:: Smoking status: Patient denies any tobacco usage or history of. - Family history:: not pertinent. ROS: 02:35 Constitutional: Negative for fever, chills, and weight loss, positive dyspnea positive sp4 cough positive chest tightness positive anxiety 02:35 All other systems are negative, Exam: 02:35 Constitutional: This is a well developed, well nourished patient who is awake, alert, sp4 very anxious female with tachypnea, tachycardic on arrival, ill-appearing but nontoxic. Head/Face: Normocephalic, atraumatic. Eyes: Pupils equal round and reactive to light, extra-ocular motions intact. Lids and lashes normal. Conjunctiva and sclera are not injected. Cornea within normal limits. Periorbital areas with no swelling, redness, or edema. ENT: Nares patent. No nasal discharge, no septal abnormalities noted. Tympanic membranes are normal and external auditory canals are clear. Oropharynx with no redness, swelling, or masses, exudates, or evidence of obstruction, uvula midline. Mucous membranes moist. Neck: Trachea midline, no thyromegaly or masses palpated, and no cervical lymphadenopathy. Supple, full range of motion without nuchal rigidity, or vertebral point tenderness. Chest/axilla: Normal chest wall appearance and motion. Nontender with no deformity. No lesions are appreciated. Cardiovascular: Regular tachycardia with a normal S1 and S2. No gallops, murmurs, or rubs. Normal PMI, no JVD. No pulse deficits. Respiratory: Lungs have equal breath sounds bilaterally, bilateral expiratory wheezes, tachypnea, mild retractions, hyperventilation on arrival Abdomen/GI: Soft, non-tender, with normal bowel sounds. No distension or tympany. No guarding or rebound. No evidence of tenderness throughout. Back: No spinal tenderness. No costovertebral tenderness. Skin: Warm, dry with normal turgor. Normal color with no rashes, no lesions, and no evidence of cellulitis. MS/ Extremity: Pulses equal, no cyanosis. Neurovascular intact. Full, normal range of motion. Neuro: Awake and alert, GCS 15, oriented to person, place, time, and situation. Cranial nerves II-XII grossly intact. Motor strength 5/5 in all extremities. Sensory grossly intact. Psych: Awake, alert, with orientation to person, place and time. Behavior, mood, and affect are within normal limits 02:35 ECG was reviewed by the Attending Physician. There is normal sinus rhythm at the rate sp4 of 99, EKG time 0 226, no ST elevation or depression, no ectopy, overall normal EKG Vital Signs: 02:15 BP 151 / 95; Pulse 104; Resp 19; Temp 98; Pulse Ox 93% on 3 lpm NC; rv 02:15 Weight 68 kg; rv 02:30 BP 150 / 88; Pulse 106; Resp 20 S; Pulse Ox 100% on 10 lpm Simple Mask; ha1 04:38 BP 137 / 88; Pulse 90; Resp 17 S; Pulse Ox 100% on 5 lpm NC; ha1 05:30 BP 134 / 94; Pulse 88; Resp 17 S; Pulse Ox 100% on 5 lpm NC; ha1 07:42 BP 168 / 96; Pulse 88; Resp 19 S; Pulse Ox 96% on 5 lpm NC; kc6 08:31 BP 136 / 82; Pulse 89; Resp 20 S; Pulse Ox 98% on 5 lpm NC; kc6 MDM: 02:18 Patient medically screened. sp4 02:49 ED course: CXR - COMPARISON: Previous CTA performed 08/17/2023 FINDINGS: 1 x-ray views sp4 of the chest (portable) was obtained. No prior films are available for comparison. Day lung volume is decreased. The cardiomediastinal silhouette demonstrate to be within normal limits. The heart is normal in size. The thoracic aorta is unremarkable. The pulmonary vasculature is normal distribution. There is increase airspace opacity within the left upper lobe and minimally along the right lower lung zone findings are suspicious for pneumonia. Bilateral clips within the chest could correspond to breast reconstruction. The rest of the soft tissue and bony structures demonstrate to be unremarkable. Incidentally is noted presence of a proximal aspect of the left internal ureteral stent. IMPRESSION: Increased airspace opacity within the left upper lobe and minimally along the right lower lung zone suspicious for pneumonia. Status post breast reconstruction. 04:59 Differential Diagnosis altered mental status, sepsis, flu. Data reviewed: vital signs, sp4 nurses notes, EMS record, old medical records, lab test result(s), EKG, radiologic studies, doppler, plain films. Consideration of Admission/Observation Patient was admitted/placed on observation. Escalation of care including admission/observation considered. Management of patient was discussed with the following: Hospitalist: Ina NAVARRO . ED course: Patient has significant left upper lung pneumonia with some extension to the left lower lung as well. Patient warrants admission to the hospital with pulmonology consult.. 06:29 ED course: CT chest - COMPARISON: 08/17/2023 CTA chest FINDINGS: LUNGS: Marked sp4 progression of geographic groundglass opacification throughout the left upper lobe and superior and anterior basilar segments of the left lower lobe. Redemonstrated innumerable pulmonary nodularities throughout the right lung, which appear grossly unchanged compared to recent prior exam. PLEURAL SPACE: Redemonstrated trace right-sided pleural effusion, loculated within the right major fissure. No pneumothorax. HEART: Heart size upper limits of normal with multivessel coronary artery calcifications. No significant pericardial effusion. BONES/JOINTS: Lytic and sclerotic changes demonstrated throughout multiple ribs bilaterally, greatest involving the anterior and lateral superior right-sided ribs, as well as redemonstrated lytic and sclerotic vertebral changes and a sclerotic focus in the right clavicular head, most compatible with osseous metastatic disease. No acute fracture. No dislocation. SOFT TISSUES: Multiple surgical clips in the bilateral breast tissues and right axillary trace dissection clips. VASCULATURE: Evaluation for pulmonary embolism significantly degraded secondary to severe bilateral respiratory motion artifact. Allowing for this, no pulmonary embolism identified. LYMPH NODES: No discrete lymphadenopathy.. IMPRESSION: 1. Evaluation for pulmonary embolism significantly degraded secondary to severe bilateral respiratory motion artifact. Allowing for this, no pulmonary embolism identified. If there is a high clinical suspicion for pulmonary embolism, consider further characterization by VQ scan or lower extremity venous ultrasound. 2. Marked progression of geographic groundglass opacification throughout the left upper lobe and superior and anterior basilar segments of the left lower lobe. Along with interstitial opacities bilaterally, findings are suspicious for progressive lymphangitic malignant disease versus an infectious or inflammatory process. 3. Redemonstrated innumerable pulmonary nodularities throughout the right lung, which appear grossly unchanged compared to recent prior exam. Appearance still is highly suspicious for metastatic lung disease. 4. Redemonstrated trace right-sided pleural effusion, loculated within the right major fissure. 5. Redemonstrated osseous metastatic disease. Electronically signed by: Aubrey Lr MD 09/04/2023 6:17 AM. 09/04 02:15 Order name: BMP; Complete Time: 04:45 09/04 02:15 Order name: Blood Culture Adult (2) 09/04 02:15 Order name: CBC with Diff; Complete Time: 05:41 09/04 02:15 Order name: CPK; Complete Time: 04:45 09/04 02:15 Order name: Hepatic Function; Complete Time: 04:45 09/04 02:15 Order name: Lipase; Complete Time: 04:45 [facility] 09/04 02:15 Order name: Magnesium; Complete Time: 04:45 09/04 02:15 Order name: NT PRO-BNP; Complete Time: 04:45 09/04 02:15 Order name: PT-INR; Complete Time: 04:02 09/04 02:15 Order name: Ptt, Activated; Complete Time: 04:02 09/04 02:15 Order name: Troponin HS; Complete Time: 04:45 09/04 02:15 Order name: ABG; Complete Time: 03:24 [facility] 09/04 02:23 Order name: Influenza Screen (a \T\ B); Complete Time: 05:32 09/04 02:23 Order name: COVID-19 SARS RT PCR; Complete Time: 04:47 09/04 04:02 Order name: Manual Differential; Complete Time: 05:41 EDMS 09/04 02:15 Order name: XRAY CXR (1 view) 09/04 02:35 Order name: CT Chest W/ Con 09/04 10:16 Order name: Head Brain Wo Cont CT la1 09/04 10:54 Order name: CT EDMS 09/04 02:15 Order name: Call RT; Complete Time: 02:18 09/04 02:15 Order name: EKG; Complete Time: 02:16 sp4 09/04 02:15 Order name: Cardiac monitoring; Complete Time: 03:07 sp4 09/04 02:15 Order name: EKG - Nurse/Tech; Complete Time: 03:07 sp4 09/04 02:15 Order name: IV Saline Lock; Complete Time: 03:07 sp4 09/04 02:15 Order name: Labs collected and sent; Complete Time: 03:07 sp4 09/04 02:15 Order name: O2 Per Protocol; Complete Time: 03:07 sp4 09/04 02:15 Order name: O2 Sat Monitoring; Complete Time: 03:07 sp4 EC:35 Rate is 99 beats/min. Rhythm is regular, Normal Sinus Rhythm. QRS [place] is Normal. ND sp4 interval is normal. QRS interval is normal. QT interval is normal. No Q waves. T waves are Normal. No ST changes noted. Clinical impression: Normal ECG. Interpreted by me. Reviewed by me. Administered Medications: 02:40 Drug: LORazepam PO 1 mg PO once Route: PO; ha1 02:40 Drug: LORazepam PO 1 mg PO once Route: PO; ha1 03:20 Follow up: Response: No adverse reaction; Anxiety decreased; RASS: Alert and Calm (0) ha1 03:20 Follow up: Response: No adverse reaction; Anxiety decreased ha1 03:07 Drug: Albuterol Inhalation 1.25 mg Inhalation once Route: Inhalation; ha1 03:07 Drug: MethylPrednisoLONE IVP 125 mg IVP once Route: IVP; Site: left antecubital; ha1 03:40 Drug: Ondansetron IVP 4 mg IVP once; over 2 minutes Route: IVP; Site: left antecubital; ha1 04:00 Follow up: Response: No adverse reaction ha1 03:42 Drug: Rocephin - Rocephin (cefTRIAXone) IVPB 1 grams IVPB once over 30 mins; (mix in 50 ha1 mL NS) Route: IVPB; Infused Over: 30 mins; Site: left antecubital; 04:00 Follow up: Response: No adverse reaction ha1 04:09 Drug: Zithromax IVPB 500 mg IVPB once over 1 hrs; mix in 250 mL NS Route: IVPB; Infused ha1 Over: 1 hrs; Site: left antecubital; 05:10 Follow up: Response: No adverse reaction; IV Status: Completed infusion; IV Intake: ha1 250ml 05:02 Drug: HYDROmorphone PO 2 mg PO once Route: PO; ha1 05:30 Follow up: Response: No adverse reaction; Pain is decreased; RASS: Alert and Calm (0) ha1 05:02 Drug: Promethazine PO 25 mg PO once Route: PO; ha1 05:30 Follow up: Response: No adverse reaction ha1 06:34 Drug: vancoMYCIN IVPB 1 grams IVPB once over 2 hrs Route: IVPB; Infused Over: 2 hrs; ha1 Site: left antecubital; Disposition Summary: 09/04/23 04:59 Hospitalization Ordered Notes: Hospitalization Status: Inpatient Admission sp4 Provider: Bakari Buckley sp4 Condition: Serious sp4 Problem: new sp4 Symptoms: have improved sp4 Bed/Room Type: Standard sp4 Location: Telemetry/MedSurg (Inpatient)(09/04/23 14:20) 1 Room Assignment: [facility](09/04/23 14:20) [facility] Diagnosis - Unspecified bacterial pneumonia sp4 - Left upper lung pneumonia, acute respiratory distress, breast cancer metastatic to sp4 the lung, anemia of chronic disease Forms: - Medication Reconciliation Form sp4 - SBAR form sp4 - Leadership Thank You Letter sp4 Signatures: Dispatcher [employer] Luis Armando Villavicencio, SUSANNAH-C MEDICAL DOSIMETRIST-Cla1 Gustabo Dexter RN RN jl7 Jairo Nesbitt RN RN ja1 Da Curtis RN Frances Lorenzo RN RN [facility] Sally Babcock Sergey, MD MD sp4 Corrections: (The following items were deleted from the chart) 11:02 04:59 Telemetry/MedSurg (Inpatient) sp4 jl7 11:02 04:59 sp4 jl7 14:20 11:02 [facility] ER HOLD jl7 ja1 14:20 11:02 ERHOLD- jl7 [id number]
--- NOTE | 2023-09-04 05:04 | P.HP ---
Certification for Inpatient Patient admitted to: Inpatient With expected LOS: >2 Midnights Practitioner: I am a practitioner with admitting privileges, knowledge of patient current condition, hospital course, and medical plan of care. Services: Services provided to patient in accordance with Admission requirements found in Title 42 Section 412.3 of the Code of Federal Regulations Patient History Date of Service: 09/04/23 Reason for admission: Pneumonia, respiratory failure. History of Present Illness: 57-year-old female patient past medical history significant for hypertension, hyperlipidemia, hypothyroidism, history of breast cancer on chemotherapy who was recently evaluated for episode of pneumonia and was treated on oral antibiotic and discharged home. She has multiple metastatic lesions to the lungs and also pleural effusions for which she has had significant intervention. She returned to the hospital with shortness of breath and inability to have deep breath and she was found to have lower lung field opacification strongly suggestive of pneumonia. She was admitted for inpatient care and antibiotic therapy. She denies episode of chest pain, nausea, vomiting, diarrhea. She continues to feel short of breath and this is very concerning for her. As per patient her last chemotherapy session for breast cancer was about 7 days ago. Allergies No Known Allergies Allergy (Unverified 08/02/21 14:19) Home Medications: Alprazolam [Xanax] 1 tab PO DAILY PRN 08/03/21 Thyroid,Pork [[place] Thyroid] 120 mg PO DAILY 08/03/21 Gabapentin 600 mg PO BEDTIME 08/18/23 Hydromorphone [Dilaudid*] 2 mg PO Q4HP PRN 08/18/23 Omeprazole [Prilosec] 40 mg PO DAILY 08/18/23 Venlafaxine HCl [Effexor Xr] 75 mg PO DAILY 08/18/23 Amlodipine [Norvasc*] 5 mg PO DAILY #30 tab 08/21/23 levoFLOXacin [Levaquin*] 750 mg PO DAILY 5 Days #5 tab 08/21/23 predniSONE [Deltasone*] 10 mg PO BID 14 Days #28 tab 08/21/23 - Past Medical/Surgical History Diabetic: No -: Breast cancer -: Hypothyroidism -: Anxiety/Insomnia -: Bilateral Mastectomy Psychosocial/ Personal History: Employed, lives at home with - Family History Father -: Heart disease Mother -: Heart disease Sister -: Hypertension - Social History Alcohol use: Yes CD- Drugs: No Caffeine use: Yes Review of Systems General: Weakness, Malaise Eyes: Unremarkable ENT: Unremarkable Respiratory: Shortness of Breath, SOB with Excertion Cardiovascular: Unremarkable Gastrointestinal: Unremarkable Genitourinary: Unremarkable Musculoskeletal: Unremarkable Integumentary: Unremarkable Neurological: Unremarkable Physical Examination - Physical Exam General: Alert, Oriented x3 HEENT: Atraumatic, Normocephalic Neck: Supple Respiratory: Diminished (in right lower lung field.) Cardiovascular: Regular rate/rhythm, Normal S1 S2 Gastrointestinal: Soft and benign Musculoskeletal: No swelling Neurological: Normal speech, Normal strength at 5/5 x4 extr - Studies Laboratory Data (last 24 hrs) 09/04/23 09/04/23 09/04/23 02:59 02:59 02:59 WBC 6.30 Hgb 9.6 L Hct 28.5 L Plt Count 362 PT 11.5 INR 1.05 APTT 24.0 L Sodium 135 L Potassium 3.8 BUN 20 H Creatinine 0.62 Glucose 110 H Magnesium 2.4 Total Bilirubin 0.5 AST 42 H ALT 26 Alkaline Phosphatase 305 H Lipase 14 Assessment and Plan - Plan Pneumonia: Deemed secondary to metastatic lesion with strong suspicion for obstructive component. She also has had multiple exposure to the healthcare system and there is concerns for healthcare associated organisms which include MRSA. We will continue empiric antibiotic therapy of Rocephin and azithromycin and add vancomycin for MRSA coverage. We will follow cultures. We will continue on breathing treatment. We will continue supplemental oxygen as needed. Metastatic breast cancer: On chemotherapy as per oncology. We will follow clinical symptomatology. Respiratory failure with hypoxia: We will continue supplemental oxygen and breathing treatment. Hypothyroidism: We will continue thyroid placement therapy. History of hypertension: We will monitor vital signs per unit protocol and continue antihypertensive medications. Anxiety disorder: We will continue antihypertensive medications. Prophylaxis: Lovenox for DVT prophylaxis. CODE STATUS: Full code. Disposition: We will treat patient's pneumonia episode and discharge her when she is is clinically stable. Discharge Plan: Home - Advance Directives Does patient have a Living Will: No Does patient have a Durable POA for Healthcare: No
[2023-09-04] MEDS ORDERED: HYDROMORPHONE ORAL 4 MG TAB ONE (05:21)
[2023-09-04] MEDS ORDERED: PROMETHAZINE 25 MG TABLET ONE (05:22)
[2023-09-04] MEDS ORDERED: VANCOMYCIN 1 GM/VIAL ONE (05:22)
[2023-09-04 05:34] LABS: Blood Morphology Comment NOTED (NOT SEEN); Platelet Estimate ADEQ; Polychromasia 1+
--- NOTE | 2023-09-04 07:57 | EKG ---
Test Date: 2023-09-04 Test Time: 02:26:32 Setter Automatic Spinning Lathe: CARLENE MEASUREMENT RESULTS: Intervals: Rate: 99 AR: 142 QRSD: 84 QT: 336 QTc: 431 Home: P: 44 AR: 142 QRS: -5 T: 45 INTERPRETIVE STATEMENTS: Normal sinus rhythm Normal ECG Compared to ECG 08/17/2023 20:58:23 No significant changes Electronically Signed On 09-04-23 07:56:39 CDT by Torito Olsen
[2023-09-04] MEDS ORDERED: FUROSEMIDE 40 MG/4 ML VIAL IV ONE (07:58)
[2023-09-04] MEDS ORDERED: VANCOMYCIN 500 MG in NA CHLORIDE 0.9% 100 ML IVPB ONE (08:00)
[2023-09-04] MEDS ORDERED: HYDROMORPHONE ORAL 2 MG TAB PO PRN (08:00)
[2023-09-04] MEDS: ALBUTEROL 2.5 MG/3 ML NEB SOL NEB SCH ×3 (08:05→19:05)
[2023-09-04] MEDS: IPRATROPIUM BROM 0.5MG/2.5ML NEB SCH ×3 (08:05→19:05)
[2023-09-04] MEDS ORDERED: IPRATROPIUM BROM 0.5MG/2.5ML ONE ×2 (08:16→13:50)
[2023-09-04] MEDS: METHYLPREDNISOLONE 40 MG INJ IV SCH ×2 (09:00→17:03)
[2023-09-04] MEDS: ENOXAPARIN 40 MG/0.4 ML SQ SCH (09:00)
[2023-09-04] MEDS: VENLAFAXINE HCL XR 75 MG CAP PO SCH (09:00)
[2023-09-04] MEDS: DOXYCYCLINE 100 MG CAP PO SCH ×2 (09:00→20:55)
[2023-09-04] MEDS: levoFLOXacin 750 MG TAB PO SCH (09:00)
[2023-09-04] MEDS ORDERED: predniSONE 20 MG TAB PO SCH (09:00)
[2023-09-04] MEDS ORDERED: FUROSEMIDE 40 MG/4 ML VIAL ONE (09:42)
[2023-09-04] MEDS ORDERED: DOXYCYCLINE 100 MG CAP PO ONE (09:42)
[2023-09-04] MEDS ORDERED: levoFLOXacin 750 MG TAB ONE (09:42)
[2023-09-04] MEDS ORDERED: METHYLPREDNISOLONE 40 MG INJ ONE (09:42)
[2023-09-04] MEDS ORDERED: ENOXAPARIN 40 MG/0.4 ML SQ ONE (09:43)
--- NOTE | 2023-09-04 10:30 | P.PN ---
Subjective Date of Service: 09/04/23 Chief Complaint: Pneumonia, respiratory failure. Subjective: No C/O voiced Confused Review of Systems 10-point ROS is otherwise unremarkable Respiratory: Shortness of Breath Physical Examination - Vital Signs Blood Pressure: 156/100 Pulse: 100 - Physical Exam General: Alert, In no apparent distress, Oriented x2, Confused HEENT: Atraumatic, PERRLA, EOMI Neck: Supple, JVD not distended Respiratory: Normal air movement, Expiratory wheezes (mild) Cardiovascular: No edema, Regular rate/rhythm, Normal S1 S2 Capillary refill: <2 Seconds Gastrointestinal: Normal bowel sounds, No tenderness Musculoskeletal: No tenderness Integumentary: No rashes Neurological: Normal speech, Normal tone, Normal affect Lymphatics: No axilla or inguinal lymphadenopathy - Studies Laboratory Data (last 24 hrs) 09/04/23 09/04/23 09/04/23 02:59 02:59 02:59 WBC 6.30 Hgb 9.6 L Hct 28.5 L Plt Count 362 PT 11.5 INR 1.05 APTT 24.0 L Sodium 135 L Potassium 3.8 BUN 20 H Creatinine 0.62 Glucose 110 H Magnesium 2.4 Total Bilirubin 0.5 AST 42 H ALT 26 Alkaline Phosphatase 305 H Lipase 14 Microbiology Data (last 24 hrs): 09/04/23 03:05 Nasopharnyx Influenza Type A Antigen Screen - Final 09/04/23 03:05 Nasopharnyx Influenza Type B Antigen Screen - Final Medications List Reviewed: Yes Assessment And Plan - Plan Assessment: Acute hypoxic respiratory failure secondary to pneumonitis/pneumonia S/P radiation, [id number] Clinical trial Metastatic Breast cancer s/p francy mastectomy, radiation to ribs, stenting of the left ureter Confusion Hypertension Hypothyroidism Anxiety/insomnia Plan: Acute hypoxic respiratory failure secondary to pneumonitis/pneumonia S/P radiation, [id number] Clinical trial Seen by pumlonology who feels this is largely pneumonitis, continue solu-medrol, abx/supportive care Blood cultures obtained and pending CT Chest with contrast 09/04- Marked progression of ground glass opacities left upper and lower lobes, interstisial opacities FRANCY, findings suspicious for progressive lymphangitic malignant disease vs an infectious or inflammatory process Daily room air sats, not on home [address] Dewey at [facility] Metastatic Breast cancer s/p francy mastectomy, radiation to ribs, stenting of the left ureter Confusion Seems encephalopathic, confused. No focal neurologic deficits. Not significantly hypercapnic or uremic. LFTs WNL. CT head ordered to evaluate for metastatic disease etc possibly related to steroid use if no other cause identified Hypertension Continue home meds Hypothyroidism Thyroid panel ordered, continue home meds. Anxiety/insomnia PRN meds DVT ppx: lovenox Code Status: Full Dispo: 2-3 days likely DC home Discharge Plan: Home Plan to discharge in: 48 Hours - Code Status/Comfort Care Code Status Assessed: Yes (Full code) Critical Care: No Time Spent Managing PTS Care (In Minutes): 20
--- NOTE | 2023-09-04 10:52 | RAD REPORT ---
EXAM DESCRIPTION: CT - Head Brain Wo Cont - 09/04/2023 10:33 am CLINICAL HISTORY: hx cancer r/o mets/bleed;Confused Headache, drowsiness COMPARISON: Prior studies are reviewed. TECHNIQUE: All CT scans are performed using dose optimization technique as appropriate and may inclu de automated exposure control or mA/KV adjustment according to patient size. FINDINGS: No intracranial hemorrhage, hydrocephalus or extra-axial fluid collection.Mild brain atrop hy.No areas of brain edema or evidence of midline shift. The paranasal sinuses and mastoids are clear. The calvarium is intact. IMPRESSION: No acute intracranial abnormality.
[2023-09-04] MEDS: SPIRONOLACTONE 25 MG TABLET PO SCH ×2 (11:52→20:54)
--- NOTE | 2023-09-04 11:53 | P.CNS ---
Date of Consult: 09/04/23 Reason for Consult: Respiratory failure Chief Complaint: Pneumonia, respiratory failure. History of Present Illness: Patient is 57 years of age current admission for special pneumonitis she was just recently in [facility] patient has progressive interstitial changes on her x-ray I suspect is a pneumonitis been worse over the past 10 days since discharge a bronchoscopy was done at [facility] Allergies No Known Allergies Allergy (Unverified 08/02/21 14:19) Home Medications: Alprazolam [Xanax] 1 tab PO DAILY PRN 08/03/21 Thyroid,Pork [[place] Thyroid] 120 mg PO DAILY 08/03/21 Gabapentin 600 mg PO BEDTIME 08/18/23 Hydromorphone [Dilaudid*] 2 mg PO Q4HP PRN 08/18/23 Omeprazole [Prilosec] 40 mg PO DAILY 08/18/23 Venlafaxine HCl [Effexor Xr] 75 mg PO DAILY 08/18/23 Amlodipine [Norvasc*] 5 mg PO DAILY #30 tab 08/21/23 levoFLOXacin [Levaquin*] 750 mg PO DAILY 5 Days #5 tab 08/21/23 predniSONE [Deltasone*] 10 mg PO BID 14 Days #28 tab 08/21/23 - Past Medical/Surgical History Diabetic: No -: Breast cancer -: Hypothyroidism -: Anxiety/Insomnia -: Bilateral Mastectomy Psychosocial/ Personal History: Employed, lives at home with - Family History Father Medical History: Heart disease Mother Medical History: Heart disease Sister Medical History: Hypertension - Social History Smoking Status: Unknown if ever smoked Alcohol use: Yes CD- Drugs: No Caffeine use: Yes Review of Systems General: Weakness Respiratory: Cough, Shortness of Breath Physical Examination Temp Pulse Resp BP Pulse Ox 100 H 20 156/100 H 99 09/04/23 10:39 09/04/23 08:00 09/04/23 10:39 09/04/23 08:00 General: Alert, Oriented x3, Moderate distress Respiratory: Crackles/rales Cardiovascular: No edema, Normal pulses, Regular rate/rhythm Gastrointestinal: Normal bowel sounds, Soft and benign Laboratory Data (last 24 hrs) 09/04/23 09/04/23 09/04/23 02:59 02:59 02:59 WBC 6.30 Hgb 9.6 L Hct 28.5 L Plt Count 362 PT 11.5 INR 1.05 APTT 24.0 L Sodium 135 L Potassium 3.8 BUN 20 H Creatinine 0.62 Glucose 110 H Magnesium 2.4 Total Bilirubin 0.5 AST 42 H ALT 26 Alkaline Phosphatase 305 H Lipase 14 - Problems (1) Interstitial pneumonitis Current Visit: Yes Status: Acute Plan: Patient is 57 years of age has progressive changes on her CT scan right worse than left with groundglass changes likely patient has progressive interstitial pneumonitis not had any more biological treatment has some radiation therapy at [facility] recently sent home on oxygen got worse over the past 10 days no clinical evidence of sepsis hypoxic hypercapnic patient's blood pressure is a little elevated will add Lasix spironolactone is high doses of steroids changed to p.o. levofloxacin and doxycycline
--- NOTE | 2023-09-04 12:47 | RAD REPORT ---
EXAM DESCRIPTION: CT Chest With Intravenous Contrast CLINICAL HISTORY: The patient is 57 years old and is Female; CHEST PAIN [facility] MAIN TECHNIQUE: Axial computed tomography images of the chest with intravenous contrast. Sagittal and c oronal reformatted images were created and reviewed. This CT exam was performed using one or more o f the following dose reduction techniques: automated exposure control, adjustment of the mA and/or kV according to patient size, and/or use of iterative reconstruction technique. COMPARISON: 08/17/2023 CTA chest FINDINGS: LUNGS: Marked progression of geographic groundglass opacification throughout the left up per lobe and superior and anterior basilar segments of the left lower lobe. Redemonstrated innumerable pulmonary nodularities throughout the right lung, which appear yobany ssly unchanged compared to recent prior exam. PLEURAL SPACE: Redemonstrated trace right-sided pleural effusion, loculated within the right major fissure. No pneumothorax. HEART: Heart size upper limits of normal with multivessel coronary artery calcifications. No significant pericardial effusion. BONES/JOINTS: Lytic and sclerotic changes demonstrated throughout multiple ribs bilaterally, greate st involving the anterior and lateral superior right-sided ribs, as well as redemonstrated lytic and sclerotic vertebral changes and a sclerotic focus in the right clavicular head, most compatible with osseous metastatic disease. No acute fracture. No dislocation. SOFT TISSUES: Multiple surgical clips in the bilateral breast tissues and right axillary trace diss ection clips. VASCULATURE: Evaluation for pulmonary embolism significantly degraded secondary to severe bilateral respiratory motion artifact. Allowing for this, no pulmonary embolism identified. LYMPH NODES: No discrete lymphadenopathy.. IMPRESSION: 1. Evaluation for pulmonary embolism significantly degraded secondary to severe bilate ral respiratory motion artifact. Allowing for this, no pulmonary embolism identified. If there is a high clinical suspicion for pulmonary embolism, consider further characterization by VQ scan or lowe r extremity venous ultrasound. 2. Marked progression of geographic groundglass opacification throughout the left upper lobe and steele perior and anterior basilar segments of the left lower lobe. Along with interstitial opacities bila terally, findings are suspicious for progressive lymphangitic malignant disease versus an infectious or inflammatory process. 3. Redemonstrated innumerable pulmonary nodularities throughout the right lung, which appear grossl y unchanged compared to recent prior exam. Appearance still is highly suspicious for metastatic lidya g disease. 4. Redemonstrated trace right-sided pleural effusion, loculated within the right major fissure. 5. Redemonstrated osseous metastatic disease. Electronically signed by: Aubrey Lr MD 09/04/2023 6:17 AM CDT Due to temporary technical issues with the PACS/Fluency reporting system, reports are being signed by the in house radiologists without review as a courtesy to insure prompt reporting. The interpreting radiologist is fully responsible for the content of the report.
--- NOTE | 2023-09-04 13:05 | RAD REPORT ---
EXAM DESCRIPTION: Chest Single View 09/04/2023 2:41 AM CDT CLINICAL HISTORY: 57 years, Female, COPD COMPARISON: Previous CTA performed 08/17/2023 FINDINGS: 1 x-ray views of the chest (portable) was obtained. No prior films are available for dayton rison. Day lung volume is decreased. The cardiomediastinal silhouette demonstrate to be within normal limits. The heart is normal in size. The thoracic aorta is unremarkable. The pulmonary vasculature i s normal distribution. There is increase airspace opacity within the left upper lobe and minimally al philipp the right lower lung zone findings are suspicious for pneumonia. Bilateral clips within the chest could correspond to breast reconstruction. The rest of the soft tissue and bony structures demonstra te to be unremarkable. Incidentally is noted presence of a proximal aspect of the left internal urete ral stent. IMPRESSION: Increased airspace opacity within the left upper lobe and minimally along the right lowe r lung zone suspicious for pneumonia. Status post breast reconstruction Electronically signed by: Keron Murillo MD 09/04/2023 2:43 AM CDT Due to temporary technical issues with the PACS/Fluency reporting system, reports are being signed by the in house radiologists without review as a courtesy to insure prompt reporting. The interpreting radiologist is fully responsible for the content of the report.
[2023-09-04] MEDS: ONDANSETRON 4 MG/2 ML VIAL IV PRN (13:38)
[2023-09-04] MEDS ORDERED: SPIRONOLACTONE 25 MG TABLET ONE (13:44)
[2023-09-04 16:22] VITALS: BMI 27.4
[2023-09-04] MEDS ORDERED: CODEINE 30MG/APAP 300MG TAB PO PRN (16:45)
[2023-09-04] MEDS ORDERED: VANCOMYCIN 1.5 GM in NA CHLORIDE 0.9% 500 ML IVPB SCH (18:00)
[2023-09-04] MEDS: MORPHINE *EXTENDED RELEASE* 15 MG TAB PO SCH (20:54)
[2023-09-04] MEDS: HYDROMORPHONE ORAL 2 MG TAB PO PRN (22:51)
[2023-09-05] MEDS: IPRATROPIUM BROM 0.5MG/2.5ML NEB SCH ×4 (01:35→20:30)
[2023-09-05] MEDS: ALBUTEROL 2.5 MG/3 ML NEB SOL NEB SCH ×4 (01:35→20:30)
[2023-09-05] MEDS: ONDANSETRON 4 MG/2 ML VIAL IV PRN (02:31)
[2023-09-05] MEDS: HYDROMORPHONE ORAL 2 MG TAB PO PRN ×3 (02:31→16:16)
[2023-09-05] MEDS: METHYLPREDNISOLONE 40 MG INJ IV SCH ×3 (02:32→16:16)
[2023-09-05] MEDS ORDERED: AZITHROMYCIN IV 500 MG in NA CHLORIDE 0.9% 250 ML IVPB SCH (04:00)
[2023-09-05] MEDS ORDERED: CEFTRIAXONE 1,000 MG in NA CHLORIDE 0.9% 50 ML IVPB SCH (05:00)
--- NOTE | 2023-09-05 08:37 | RAD REPORT ---
EXAM DESCRIPTION: RAD - Chest Single View - 09/05/2023 4:16 am CLINICAL HISTORY: Respiratory failure Chest pain. COMPARISON: Chest Single View dated 09/04/2023; Chest Single View dated 08/20/2023; Chest Single Vie w dated 08/17/2023; Chest Single View dated 08/02/2021 FINDINGS: Portable technique limits examination quality. Moderate bilateral pulmonary opacities are present, demonstrating mild improvement since the prior st udy. The heart is normal in size. No displaced fractures.Right-sided surgical changes. IMPRESSION: Mild improvement in lung aeration is seen since yesterday's study.
[2023-09-05] MEDS: SPIRONOLACTONE 25 MG TABLET PO SCH ×2 (08:41→20:26)
[2023-09-05] MEDS: DOXYCYCLINE 100 MG CAP PO SCH ×2 (08:41→20:26)
[2023-09-05] MEDS: VENLAFAXINE HCL XR 75 MG CAP PO SCH (08:42)
[2023-09-05] MEDS: levoFLOXacin 750 MG TAB PO SCH (08:42)
[2023-09-05] MEDS: MORPHINE *EXTENDED RELEASE* 15 MG TAB PO SCH ×3 (08:42→20:27)
[2023-09-05] MEDS: ENOXAPARIN 40 MG/0.4 ML SQ SCH (08:43)
--- NOTE | 2023-09-05 09:21 | P.PN ---
Subjective Date of Service: 09/05/23 Chief Complaint: Pneumonia, respiratory failure. Improving, less short of breath. Very anxious. <Luis Armando Shields - Last Filed: 09/05/23 09:18> Date of Service: 09/05/23 <Chris Aguirre - Last Filed: 09/05/23 21:30> Review of Systems 10-point ROS is otherwise unremarkable Respiratory: Shortness of Breath <Luis Armando Shields - Last Filed: 09/05/23 09:18> Physical Examination - Vital Signs Temperature: 97.5 F Blood Pressure: 157/79 Pulse: 85 Respirations: 20 Pulse Ox (%): 96 - Physical Exam General: Alert, In no apparent distress, Oriented x3 HEENT: Atraumatic, PERRLA, EOMI Neck: Supple, JVD not distended Respiratory: Diminished, Other (coarse) Cardiovascular: Regular rate/rhythm, Normal S1 S2 Capillary refill: <2 Seconds Gastrointestinal: Normal bowel sounds, No tenderness Musculoskeletal: No tenderness Integumentary: No rashes Neurological: Normal speech, Normal tone, Normal affect Lymphatics: No axilla or inguinal lymphadenopathy - Studies Microbiology Data (last 24 hrs): 09/04/23 03:05 Nasopharnyx Influenza Type A Antigen Screen - Final 09/04/23 03:05 Nasopharnyx Influenza Type B Antigen Screen - Final Medications List Reviewed: Yes <Luis Armando Shields - Last Filed: 09/05/23 09:18> Assessment And Plan - Plan Assessment: Acute hypoxic respiratory failure secondary to pneumonitis/pneumonia S/P radiation, [id number] Clinical trial Metastatic Breast cancer s/p francy mastectomy, radiation to ribs, stenting of the left ureter Confusion Hypertension Hypothyroidism Anxiety/insomnia Plan: Acute hypoxic respiratory failure secondary to pneumonitis/pneumonia S/P radiation, [id number] Clinical trial Seen by pumlonology who feels this is largely pneumonitis, continue solu-medrol, abx/supportive care Feeling a little better 09/05, still feels like she needs 02, a bit anxious Blood cultures obtained and pending CT Chest with contrast 09/04- Marked progression of ground glass opacities left upper and lower lobes, interstisial opacities FRANCY, findings suspicious for progressive lymphangitic malignant disease vs an infectious or inflammatory process Daily room air sats, not on home [address] Dewey at [facility] Metastatic Breast cancer s/p francy mastectomy, radiation to ribs, stenting of the left ureter Confusion Confusion improved, probably a little confused at baseline, likely related to ativan given in ED as well Not significantly hypercapnic or uremic. LFTs WNL. CT head negative for acute findings Hypertension Continue home meds Hypothyroidism TSH pending Anxiety/insomnia PRN meds DVT ppx: lovenox Code Status: Full Dispo: 2-3 days likely DC home Discharge Plan: Home Plan to discharge in: 48 Hours - Code Status/Comfort Care Code Status Assessed: Yes (Full code) Critical Care: No Time Spent Managing PTS Care (In Minutes): 25 <Luis Armando Shields - Last Filed: 09/05/23 09:18> Physician Review: Patient Assessed, Agree with Above Assessment and Plan <Chris Aguirre - Last Filed: 09/05/23 21:30>
--- NOTE | 2023-09-05 10:04 | P.PN ---
Subjective Date of Service: 09/05/23 Chief Complaint: Pneumonia, respiratory failure. Subjective: Improving (Patient is improving still very hypoxic) Review of Systems General: Weakness Respiratory: Shortness of Breath Physical Examination - Vital Signs Temperature: 97.5 F Blood Pressure: 157/79 Pulse: 85 Respirations: 20 Pulse Ox (%): 96 - Physical Exam General: Alert, Moderate distress Respiratory: Crackles/rales Cardiovascular: No edema, Regular rate/rhythm, Normal S1 S2 Gastrointestinal: Normal bowel sounds, Soft and benign - Studies Microbiology Data (last 24 hrs): 09/04/23 03:05 Nasopharnyx Influenza Type A Antigen Screen - Final 09/04/23 03:05 Nasopharnyx Influenza Type B Antigen Screen - Final Medications List Reviewed: Yes Assessment And Plan - Current Problems (Diagnosis) (1) Interstitial pneumonitis Current Visit: Yes Status: Acute Plan: Patient is 57 years of age admitted with extensive interstitial pneumonitis mary beth ent is currently stable continue with present therapy also added Lasix 10 in slight negative fluid balance continue with steroids patient has had a bronchoscopy done Incidentally patient was first prescribed Lovenox at [facility] me that she had a blood clot will resume Lovenox for now she has Lovenox for home will need a discharge summary from [facility] patient will either need BiPAP or high flow
[2023-09-05] MEDS ORDERED: ENOXAPARIN 30 MG/0.3 ML SQ SCH (10:15)
[2023-09-05 10:21] LABS: Hematocrit 29.8 % (36.0-45.0); Platelets 280 thou/uL (152-406); RBC Red Blood Cell Count 3.28 M/uL (3.86-4.86)
[2023-09-05 10:49] LABS: Thyroid Stimulating Hormone 0.494 uIU/mL (0.358-3.740)
[2023-09-05] MEDS: FUROSEMIDE 40 MG/4 ML VIAL IV SCH (11:32)
[2023-09-05] MEDS ORDERED: ALPRAZOLAM 0.25 MG TABLET PO PRN (16:19)
[2023-09-05] MEDS: ALPRAZOLAM 0.25 MG TABLET PO SCH (20:26)
[2023-09-05] MEDS: ENOXAPARIN 80 MG/0.8 ML SQ SCH (20:27)
[2023-09-06] MEDS: METHYLPREDNISOLONE 40 MG INJ IV SCH ×3 (01:06→20:14)
[2023-09-06] MEDS: ALBUTEROL 2.5 MG/3 ML NEB SOL NEB SCH ×2 (02:05→08:15)
[2023-09-06] MEDS: IPRATROPIUM BROM 0.5MG/2.5ML NEB SCH ×2 (02:05→08:15)
[2023-09-06] MEDS: HYDROMORPHONE ORAL 2 MG TAB PO PRN ×4 (04:21→22:30)
--- NOTE | 2023-09-06 07:26 | RAD REPORT ---
EXAM DESCRIPTION: RAD - Chest Single View - 09/06/2023 6:57 am CLINICAL HISTORY: Respiratory failure COMPARISON: Chest Single View dated 09/05/2023; Chest Single View dated 09/04/2023; Chest Single Vie w dated 08/20/2023; Chest Single View dated 08/17/2023; Thorax W/ Con dated 09/04/2023; Chest For Pe A ngio dated 08/17/2023 FINDINGS: Lines: None. Lungs: Interstitial airspace disease bilaterally, left eccentric, is similar to 09/05/2023 . Pleural: No significant pleural effusions or pneumothorax. Cardiac: Similar cardiomegaly . Mediastinum: Within normal limits. Bones: No acute fractures. Other: Surgical clips in right axilla and left breast. IMPRESSION: Interstitial and airspace disease, eccentric to the left, is similar to 09/05/2023.
[2023-09-06] MEDS: SPIRONOLACTONE 25 MG TABLET PO SCH ×2 (08:47→20:13)
[2023-09-06] MEDS: ENOXAPARIN 80 MG/0.8 ML SQ SCH ×2 (08:48→20:12)
[2023-09-06] MEDS: ALPRAZOLAM 0.25 MG TABLET PO SCH ×3 (08:48→20:14)
[2023-09-06] MEDS: DOXYCYCLINE 100 MG CAP PO SCH (08:49)
[2023-09-06] MEDS: levoFLOXacin 750 MG TAB PO SCH (08:49)
[2023-09-06] MEDS: FUROSEMIDE 40 MG/4 ML VIAL IV SCH (08:49)
[2023-09-06] MEDS: VENLAFAXINE HCL XR 75 MG CAP PO SCH (08:49)
--- NOTE | 2023-09-06 10:27 | P.PN ---
Subjective Date of Service: 09/06/23 Chief Complaint: Pneumonia, respiratory failure. No change in patient's condition she still short of breath hypoxic Review of Systems General: Weakness Respiratory: Shortness of Breath Physical Examination - Vital Signs Temperature: 97.5 F Blood Pressure: 167/86 Pulse: 82 Respirations: 16 Pulse Ox (%): 94 - Physical Exam General: Alert, Oriented x3 Respiratory: Crackles/rales Cardiovascular: No edema, Regular rate/rhythm - Studies Medications List Reviewed: Yes Assessment And Plan - Current Problems (Diagnosis) (1) Interstitial pneumonitis Current Visit: Yes Status: Acute Plan: Chronic interstitial pneumonitis currently stable (2) Chronic respiratory failure Current Visit: Yes Status: Acute Plan: Patient has chronic respiratory failure still requiring high flow oxygen although oxygen requirements have been declining we will plan to decrease her O2 valuate for life 2000 a portable oxygen pressure support ventilation system chemistries and labs reviewed white count is normal doubt if she has a pneumonia hold off on the antibiotics for now blood pressure is still elevated Qualifiers: Respiratory failure complication: hypoxia Qualified Code(s): J96.11 - Chronic respiratory failure with hypoxia Physician Review: Patient Assessed, Agree with Above Assessment and Plan
[2023-09-06] MEDS: MORPHINE *EXTENDED RELEASE* 15 MG TAB PO SCH ×2 (10:43→15:01)
--- NOTE | 2023-09-06 12:32 | P.PN ---
Subjective Date of Service: 09/06/23 Chief Complaint: Pneumonia, respiratory failure. No significant changes, pain well controlled, still with some anxiety Had some mild hematuria today Review of Systems 10-point ROS is otherwise unremarkable Respiratory: Shortness of Breath Physical Examination - Vital Signs Temperature: 97.5 F Blood Pressure: 167/86 Pulse: 82 Respirations: 16 Pulse Ox (%): 94 - Physical Exam General: Alert, In no apparent distress, Oriented x3 HEENT: Atraumatic, PERRLA, EOMI Neck: Supple, JVD not distended Respiratory: Diminished Cardiovascular: Regular rate/rhythm, Normal S1 S2 Gastrointestinal: Normal bowel sounds, No tenderness Musculoskeletal: No tenderness Integumentary: No rashes Neurological: Normal speech, Normal tone, Normal affect Lymphatics: No axilla or inguinal lymphadenopathy - Studies Medications List Reviewed: Yes Assessment And Plan - Plan Assessment: Acute hypoxic respiratory failure secondary to pneumonitis/pneumonia S/P radiation, [id number] Clinical trial Metastatic Breast cancer s/p francy mastectomy, radiation to ribs, stenting of the left ureter Hematuria Confusion Hypertension Hypothyroidism Anxiety/insomnia Plan: Acute hypoxic respiratory failure secondary to pneumonitis/pneumonia S/P radiation, [id number] Clinical trial Seen by pumlonology who feels this is largely pneumonitis, continue solu-medrol, abx/supportive care Blood cultures no growth in 24 hours Apparently had bronch which was negative at [facility] Also on lovenox for reported blood clot 09/06 on High gerald 20L, 35% CT Chest with contrast 09/04- Marked progression of ground glass opacities left upper and lower lobes, interstisial opacities FRANCY, findings suspicious for progressive lymphangitic malignant disease vs an infectious or inflammatory process Follows with Dr. Dewey at [facility] Metastatic Breast cancer s/p francy mastectomy, radiation to ribs, stenting of the left ureter Hematuria Single episode of hematuria thus far, on Lovenox for reported blood clot, will need to review records to determine importance of need for anticoagulation Monitor for signs of further bleeding BladderScan as needed for retention, Argueta catheter as needed with irrigation Confusion Confusion improved, at baseline Hypertension Continue home meds Hypothyroidism TSH pending Anxiety/insomnia PRN meds DVT ppx: lovenox Code Status: Full Dispo: 2-3 days likely DC home Discharge Plan: Home Plan to discharge in: 48 Hours Physician Review: Patient Assessed, Agree with Above Assessment and Plan Critical Care: Yes (Full) Time Spent Managing PTS Care (In Minutes): 25
[2023-09-06 13:37] LABS: Potassium 4.3 mEq/L (3.5-5.1)
[2023-09-06] MEDS: MORPHINE 30 MG PO SCH (20:14)
[2023-09-06] MEDS: ALBUTEROL 2.5 MG/3 ML NEB SOL NEB PRN (23:10)
[2023-09-07] MEDS: HYDROMORPHONE ORAL 2 MG TAB PO PRN ×4 (02:29→23:58)
[2023-09-07] MEDS: ENOXAPARIN 80 MG/0.8 ML SQ SCH ×2 (07:46→20:59)
[2023-09-07] MEDS: ALPRAZOLAM 0.25 MG TABLET PO SCH ×3 (07:47→20:58)
[2023-09-07] MEDS: METHYLPREDNISOLONE 40 MG INJ IV SCH ×2 (07:47→21:00)
[2023-09-07] MEDS: VENLAFAXINE HCL XR 75 MG CAP PO SCH (07:47)
[2023-09-07] MEDS: SPIRONOLACTONE 25 MG TABLET PO SCH ×2 (07:47→20:59)
[2023-09-07] MEDS: FUROSEMIDE 40 MG/4 ML VIAL IV SCH (07:47)
[2023-09-07] MEDS: MORPHINE 30 MG PO SCH ×3 (07:48→20:59)
--- NOTE | 2023-09-07 07:52 | RAD REPORT ---
EXAM DESCRIPTION: Basilio Single View09/07/2023 6:31 am CLINICAL HISTORY: Respiratory failure COMPARISON: September 06, 2000 FINDINGS: Marked left and mild right pulmonary opacities significant change. Heart mildly IMPRESSION: No significant change in marked left and mild right pulmonary opacities
[2023-09-07] MEDS: ALBUTEROL 2.5 MG/3 ML NEB SOL NEB PRN ×2 (08:25→14:10)
--- NOTE | 2023-09-07 08:46 | P.PN ---
Subjective Date of Service: 09/07/23 Chief Complaint: Pneumonia, respiratory failure. No significant changes, pain well controlled, still with some anxiety Feels breathing may be slightly worse Still with some hematuria via pure wick, no retention Review of Systems 10-point ROS is otherwise unremarkable Respiratory: Cough, Shortness of Breath Genitourinary: Hematuria Physical Examination - Vital Signs Temperature: 97.1 F Blood Pressure: 147/92 Pulse: 81 Respirations: 18 Pulse Ox (%): 96 - Physical Exam General: Alert, In no apparent distress, Oriented x3 HEENT: Atraumatic Neck: Supple Respiratory: Diminished Cardiovascular: No edema, Regular rate/rhythm, Normal S1 S2 Capillary refill: <2 Seconds Gastrointestinal: Normal bowel sounds, No tenderness Musculoskeletal: No tenderness Integumentary: No rashes Neurological: Normal speech, Normal affect - Studies Medications List Reviewed: Yes Assessment And Plan - Plan Assessment: Acute hypoxic respiratory failure secondary to pneumonitis/pneumonia S/P radiation, [id number] Clinical trial Metastatic Breast cancer s/p francy mastectomy, radiation to ribs, stenting of the left ureter Hematuria Confusion Hypertension Hypothyroidism Anxiety/insomnia Plan: Acute hypoxic respiratory failure secondary to pneumonitis/pneumonia S/P radiation, [id number] Clinical trial Seen by pumlonology who feels this is largely pneumonitis, continue solu-medrol, abx/supportive care Blood cultures NGTD Apparently had bronch which was negative at [facility] Also on lovenox for PE found during admission at [facility] 09/07 on High gerald 15L, 35% CT Chest with contrast 09/04- Marked progression of ground glass opacities left upper and lower lobes, interstisial opacities FRANCY, findings suspicious for progressive lymphangitic malignant disease vs an infectious or inflammatory process CXR 09/07- No significant change in marked left and mild right pulmonary opacities Follows with Dr. Dewey at [facility] Metastatic Breast cancer s/p francy mastectomy, radiation to ribs, stenting of the left ureter Hematuria Continued mild hematuria without retention, will need to continue lovenox 2/2 PE BladderScan as needed for retention, Argueta catheter as needed with irrigation Confusion Confusion improved, at baseline Hypertension Continue home meds Hypothyroidism Continue home meds Anxiety/insomnia PRN meds DVT ppx: lovenox Code Status: Full Dispo: 2-3 days likely DC home Discharge Plan: Home Plan to discharge in: 48 Hours - Code Status/Comfort Care Code Status Assessed: Yes (full) Physician Review: Patient Assessed, Agree with Above Assessment and Plan Critical Care: No Time Spent Managing PTS Care (In Minutes): 35
[2023-09-07] MEDS: FAMOTIDINE 20 MG/2 ML VIAL IV SCH (23:51)
[2023-09-08] MEDS: ALBUTEROL 2.5 MG/3 ML NEB SOL NEB PRN ×2 (01:50→08:01)
[2023-09-08] MEDS: HYDROMORPHONE ORAL 2 MG TAB PO PRN (04:29)
[2023-09-08 07:47] LABS: Hematocrit 35.6 % (36.0-45.0); MCV 89.3 fL (80-100); MPV 7.4 fL (7.6-11.3); Platelets 379 thou/uL (152-406); RBC Red Blood Cell Count 3.99 M/uL (3.86-4.86)
[2023-09-08 08:05] LABS: Potassium 3.7 mEq/L (3.5-5.1)
[2023-09-08] MEDS: SPIRONOLACTONE 25 MG TABLET PO SCH ×2 (08:09→21:15)
[2023-09-08] MEDS: FUROSEMIDE 40 MG/4 ML VIAL IV SCH (08:09)
[2023-09-08] MEDS: ALPRAZOLAM 0.25 MG TABLET PO SCH ×3 (08:09→21:14)
[2023-09-08] MEDS: VENLAFAXINE HCL XR 75 MG CAP PO SCH (08:09)
[2023-09-08] MEDS: FAMOTIDINE 20 MG/2 ML VIAL IV SCH (08:10)
[2023-09-08] MEDS: ENOXAPARIN 80 MG/0.8 ML SQ SCH ×2 (08:10→21:18)
[2023-09-08] MEDS: MORPHINE 30 MG PO SCH ×3 (08:11→21:18)
--- NOTE | 2023-09-08 10:21 | P.PN ---
Subjective Date of Service: 09/08/23 Chief Complaint: Pneumonia, respiratory failure. Subjective: Improving No significant changes, pain well controlled, still with some anxiety Feels A little better today Still with some mild/improving hematuria via pure wick, no retention <Luis Armando Shields - Last Filed: 09/08/23 10:18> Date of Service: 09/08/23 <Chris Aguirre - Last Filed: 09/08/23 21:53> Review of Systems 10-point ROS is otherwise unremarkable Respiratory: Shortness of Breath Genitourinary: Hematuria <Luis Armando Shields - Last Filed: 09/08/23 10:18> Physical Examination - Vital Signs Temperature: 96.8 F Blood Pressure: 164/81 Pulse: 82 Respirations: 17 Pulse Ox (%): 92 - Physical Exam General: Alert, In no apparent distress, Oriented x3 HEENT: Atraumatic Neck: Supple Respiratory: Diminished Cardiovascular: No edema, Regular rate/rhythm, Normal S1 S2 Gastrointestinal: No tenderness Musculoskeletal: No tenderness Integumentary: No rashes Neurological: Normal speech, Normal tone, Normal affect - Studies Medications List Reviewed: Yes <Luis Armando Shields - Last Filed: 09/08/23 10:18> Assessment And Plan - Plan Assessment: Acute hypoxic respiratory failure secondary to pneumonitis/pneumonia S/P radiation, [id number] Clinical trial Metastatic Breast cancer s/p francy mastectomy, radiation to ribs, stenting of the left ureter Hematuria Confusion Hypertension Hypothyroidism Anxiety/insomnia Plan: Acute hypoxic respiratory failure secondary to pneumonitis/pneumonia S/P radiation, [id number] Clinical trial Seen by pumlonology who feels this is largely pneumonitis, continue solu-medrol, abx/supportive care Blood cultures NGTD Apparently had bronch which was negative at [facility] Also on lovenox for PE found during admission at [facility] 09/08 on High gerald 15L, 35%, feeling a little better today CT Chest with contrast 09/04- Marked progression of ground glass opacities left upper and lower lobes, interstisial opacities FRANCY, findings suspicious for progressive lymphangitic malignant disease vs an infectious or inflammatory process CXR 09/07- No significant change in marked left and mild right pulmonary opacities Follows with Dr. Dewey at [facility] Metastatic Breast cancer s/p francy mastectomy, radiation to ribs, stenting of the left ureter Hematuria Continued mild hematuria without retention, improving compared to yesterday, will need to continue lovenox 2/2 PE BladderScan as needed for retention, Argueta catheter as needed with irrigation Confusion Confusion improved, at baseline Hypertension Continue home meds Hypothyroidism Continue home meds Anxiety/insomnia PRN meds DVT ppx: lovenox Code Status: Full Dispo: 2-3 days likely DC home Discharge Plan: Home Plan to discharge in: 48 Hours - Code Status/Comfort Care Code Status Assessed: Yes (Full code) Physician Review: Patient Assessed, Agree with Above Assessment and Plan Critical Care: No Time Spent Managing PTS Care (In Minutes): 35 <Luis Armando Shields - Last Filed: 09/08/23 10:18> - Plan Patient requesting eval for rehab discussed need to wean O2 prior to consideration, will interrupt set up for Life 1999 slow improvement <Chris Aguirre - Last Filed: 09/08/23 21:53>
[2023-09-08] MEDS: HYDROMORPHONE ORAL 4 MG TAB PO PRN ×2 (11:55→19:41)
[2023-09-08] MEDS: METHYLPREDNISOLONE 40 MG INJ IV SCH (11:56)
--- NOTE | 2023-09-08 12:05 | P.PN ---
Subjective Date of Service: 09/08/23 Chief Complaint: Respiratory failure Patient still continues to remain hypoxic requiring high flow oxygen otherwise she is feeling better Review of Systems General: Weakness Respiratory: Shortness of Breath Physical Examination - Vital Signs Temperature: 96.8 F Blood Pressure: 164/81 Pulse: 82 Respirations: 17 Pulse Ox (%): 92 - Physical Exam General: Alert, Oriented x3 Respiratory: Clear to auscultation bilaterally, Diminished Cardiovascular: No edema, Regular rate/rhythm - Studies Medications List Reviewed: Yes Assessment And Plan - Current Problems (Diagnosis) (1) Chronic respiratory failure Current Visit: Yes Status: Acute Plan: Patient has chronic respiratory failure secondary to interstitial pneumonitis currently stable subjectively improved planning to titrate the oxygen down awaiting approval for life 1999 no evidence of sepsis blood pressure is mildly elevated changed to p.o. prednisone DC IV Lasix continue with spironolactone Qualifiers: Respiratory failure complication: hypoxia Qualified Code(s): J96.11 - Chronic respiratory failure with hypoxia Physician Review: Patient Assessed, Agree with Above Assessment and Plan
[2023-09-08] MEDS: predniSONE 20 MG TAB PO SCH (21:14)
[2023-09-09] MEDS: HYDROMORPHONE ORAL 4 MG TAB PO PRN ×2 (02:59→07:08)
[2023-09-09] MEDS: ENOXAPARIN 80 MG/0.8 ML SQ SCH ×2 (08:35→20:46)
[2023-09-09] MEDS: predniSONE 20 MG TAB PO SCH ×2 (08:36→20:46)
[2023-09-09] MEDS: FAMOTIDINE 20 MG/2 ML VIAL IV SCH (08:36)
[2023-09-09] MEDS: VENLAFAXINE HCL XR 75 MG CAP PO SCH (08:36)
[2023-09-09] MEDS: ALPRAZOLAM 0.25 MG TABLET PO SCH ×3 (08:36→20:46)
[2023-09-09] MEDS: SPIRONOLACTONE 25 MG TABLET PO SCH ×2 (08:36→20:48)
[2023-09-09] MEDS: MORPHINE 30 MG PO SCH ×3 (08:37→20:47)
[2023-09-09 12:37] LABS: Absolute Lymphocytes (CBC) 0.7 K/uL (0.7-4.9); Hematocrit 35.6 % (36.0-45.0); Lymphocytes % 5.7 % (15.3-44.8); MCV 88.9 fL (80-100); MPV 7.2 fL (7.6-11.3); Platelets 341 thou/uL (152-406)
[2023-09-09 12:49] LABS: Potassium 3.7 mEq/L (3.5-5.1)
[2023-09-09 13:38] LABS: Blood Morphology Comment NOT SEEN (NOT SEEN); Platelet Estimate DECR; White Blood Cell Scan OK (OK)
--- NOTE | 2023-09-09 16:57 | P.PN ---
Subjective Date of Service: 09/09/23 Chief Complaint: Respiratory failure Subjective: Doing well HPI 09/04: Arlene Lane 57-year-old female patient past medical history significant for hypertension, hyperlipidemia, hypothyroidism, history of breast cancer on chemotherapy who was recently evaluated for episode of pneumonia and was treated on oral antibiotic and discharged home. She has multiple metastatic lesions to the lungs and also pleural effusions for which she has had significant intervention. She returned to the hospital with shortness of breath and inability to have deep breath and she was found to have lower lung field opacification strongly suggestive of pneumonia. She was admitted for inpatient care and antibiotic therapy. She denies episode of chest pain, nausea, vomiting, diarrhea. She continues to feel short of breath and this is very concerning for her. As per patient her last chemotherapy session for breast cancer was about 7 days ago. 09/09: Arlene is awake in bed, eating well, reports urinating well and ambulating in the room. On high flow oxygen, Dr. Flores managing. Awaiting approval for the home high flow device. Will try to discharge to rehab when appropriate. She denies fever, chills, CP, SOB, and GUTIERREZ. <Grisel Mercer - Last Filed: 09/09/23 17:09> Date of Service: 09/09/23 <josefina barahona - Last Filed: 09/09/23 18:05> Review of Systems 10-point ROS is otherwise unremarkable <Grisel Mercer - Last Filed: 09/09/23 17:09> Physical Examination - Vital Signs Temperature: 97.7 F Blood Pressure: 139/91 Pulse: 86 Respirations: 20 Pulse Ox (%): 96 - Studies Microbiology Data (last 24 hrs): 09/04/23 02:30 Blood - Blood Aerobic Blood Culture - Final No growth in 5 days. 09/04/23 02:30 Blood - Blood Anaerobic Blood Culture - Final No growth in 5 days. 09/04/23 02:59 Blood - Blood Aerobic Blood Culture - Final No growth in 5 days. 09/04/23 02:59 Blood - Blood Anaerobic Blood Culture - Final No growth in 5 days. Medications List Reviewed: Yes <Grisel Mercer - Last Filed: 09/09/23 17:09> - Studies Microbiology Data (last 24 hrs): 09/04/23 02:30 Blood - Blood Aerobic Blood Culture - Final No growth in 5 days. 09/04/23 02:30 Blood - Blood Anaerobic Blood Culture - Final No growth in 5 days. 09/04/23 02:59 Blood - Blood Aerobic Blood Culture - Final No growth in 5 days. 09/04/23 02:59 Blood - Blood Anaerobic Blood Culture - Final No growth in 5 days. <josefina barahona - Last Filed: 09/09/23 18:05> Assessment And Plan - Plan Physical Exam General: Alert, In no apparent distress, Oriented x3 HEENT: Atraumatic Neck: Supple Respiratory: Diminished, on high flow nasal cannula Cardiovascular: No edema, Regular rate/rhythm, Normal S1 S2 Gastrointestinal: No tenderness Musculoskeletal: No tenderness Integumentary: No rashes Neurological: Normal speech, Normal tone, Normal affect Acute hypoxic respiratory failure secondary to pneumonitis/pneumonia S/P radiation, [id number] Clinical trial Metastatic Breast cancer s/p francy mastectomy, radiation to ribs, stenting of the left ureter Hematuria Confusion Hypertension Hypothyroidism Anxiety/insomnia Plan: Acute hypoxic respiratory failure secondary to pneumonitis/pneumonia S/P radiation, [id number] Clinical trial Metastatic Breast cancer s/p francy mastectomy, radiation to ribs, stenting of the left ureter Seen by pumlonology who feels this is largely pneumonitis, continue solu-medrol, abx/supportive care Blood cultures NGTD Apparently had bronch which was negative at [facility] Also on lovenox for PE found during admission at [facility] 09/08 on High gerald 15L, 35%, feeling a little better today CT Chest with contrast 09/04- Marked progression of ground glass opacities left upper and lower lobes, interstisial opacities FRANCY, findings suspicious for progressive lymphangitic malignant disease vs an infectious or inflammatory process CXR 09/07- No significant change in marked left and mild right pulmonary opacities Follows with Dr. Dewey at [facility] Will need high flow device at discharge: awaiting approval, will attempt to wean as appropriate Hematuria Continued mild hematuria without retention, improving compared to yesterday, will need to continue lovenox 2/2 PE BladderScan as needed for retention, Argueta catheter as needed with irrigation Confusion Confusion improved, at baseline Hypertension Continue home meds Hypothyroidism Continue home meds Anxiety/insomnia PRN meds DVT ppx: lovenox Code Status: Full Dispo: 2-3 days DC home vs Rehab Plan to discharge in: 48 Hours Plan to discharge in: 48 Hours Physician Review: Patient Assessed, Agree with Above Assessment and Plan Time Spent Managing PTS Care (In Minutes): 35 <Grisel Mercer - Last Filed: 09/09/23 17:09> - Plan Patient remains on high flow oxygen. Flow decreased to 10 L/min, FiO2 of 35%. 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 Anticipating protracted period of recovery if any. Pulmonary input appreciated. Patient being evaluated for life 2000. On steroid, bronchodilators. Disposition: Anticipating disposition to home. <josefina barahona - Last Filed: 09/09/23 18:05>
[2023-09-09] MEDS: ALBUTEROL 2.5 MG/3 ML NEB SOL NEB PRN (21:05)
[2023-09-10] MEDS: HYDROMORPHONE ORAL 4 MG TAB PO PRN (00:07)
[2023-09-10] MEDS ORDERED: NA CHLORIDE 0.9% 1,000 ML IV SCH (07:00)
[2023-09-10] MEDS: VENLAFAXINE HCL XR 75 MG CAP PO SCH (09:29)
[2023-09-10] MEDS: FAMOTIDINE 20 MG/2 ML VIAL IV SCH (09:29)
[2023-09-10] MEDS: predniSONE 20 MG TAB PO SCH ×2 (09:29→20:30)
[2023-09-10] MEDS: ALPRAZOLAM 0.25 MG TABLET PO SCH ×3 (09:29→20:30)
[2023-09-10] MEDS: ENOXAPARIN 80 MG/0.8 ML SQ SCH ×2 (09:29→20:30)
[2023-09-10] MEDS: SPIRONOLACTONE 25 MG TABLET PO SCH ×2 (09:30→20:35)
[2023-09-10] MEDS: MORPHINE 30 MG PO SCH ×3 (09:30→20:31)
[2023-09-10 10:57] LABS: Absolute Lymphocytes (CBC) 0.6 K/uL (0.7-4.9); Hematocrit 34.4 % (36.0-45.0); Lymphocytes % 5.8 % (15.3-44.8); MCV 89.2 fL (80-100); MPV 7.4 fL (7.6-11.3); Platelets 376 thou/uL (152-406); RBC Red Blood Cell Count 3.85 M/uL (3.86-4.86)
--- NOTE | 2023-09-10 12:13 | P.PN ---
Subjective Date of Service: 09/10/23 Chief Complaint: Respiratory failure Subjective: Doing well HPI 09/04: Arlene Lane 57-year-old female patient past medical history significant for hypertension, hyperlipidemia, hypothyroidism, history of breast cancer on chemotherapy who was recently evaluated for episode of pneumonia and was treated on oral antibiotic and discharged home. She has multiple metastatic lesions to the lungs and also pleural effusions for which she has had significant intervention. She returned to the hospital with shortness of breath and inability to have deep breath and she was found to have lower lung field opacification strongly suggestive of pneumonia. She was admitted for inpatient care and antibiotic therapy. She denies episode of chest pain, nausea, vomiting, diarrhea. She continues to feel short of breath and this is very concerning for her. As per patient her last chemotherapy session for breast cancer was about 7 days ago. 09/09: Arlene is awake in bed, eating well, reports urinating well and ambulating in the room. On LNC, Dr. Flores managing. Awaiting approval for [employer] for home use. Will try to discharge to rehab when appropriate. She denies fever, chills, CP, SOB, and GUTIERREZ. <Grisel Mercer - Last Filed: 09/10/23 14:18> Date of Service: 09/10/23 <josefina barahona - Last Filed: 09/11/23 17:49> Review of Systems 10-point ROS is otherwise unremarkable <Grisel Mercer - Last Filed: 09/10/23 14:18> Physical Examination - Vital Signs Temperature: 96.7 F Blood Pressure: 132/87 Pulse: 94 Respirations: 16 Pulse Ox (%): 99 - Studies Medications List Reviewed: Yes <Grisel Mercer - Last Filed: 09/10/23 14:18> Assessment And Plan - Plan Physical Exam General: Alert, In no apparent distress, Oriented x3 HEENT: Atraumatic Neck: Supple Respiratory: Diminished, 6 LNC Cardiovascular: No edema, Regular rate/rhythm, Normal S1 S2 Gastrointestinal: No tenderness Musculoskeletal: No tenderness Integumentary: No rashes Neurological: Normal speech, Normal tone, Normal affect Acute hypoxic respiratory failure secondary to pneumonitis/pneumonia S/P radiation, [id number] Clinical trial Metastatic Breast cancer s/p francy mastectomy, radiation to ribs, stenting of the left ureter Hematuria Confusion Hypertension Hypothyroidism Anxiety/insomnia Plan: Acute hypoxic respiratory failure secondary to pneumonitis/pneumonia S/P radiation, [id number] Clinical trial Metastatic Breast cancer s/p francy mastectomy, radiation to ribs, stenting of the left ureter Seen by pumlonology who feels this is largely pneumonitis, continue solu-medrol, abx/supportive care Blood cultures NGTD Apparently had bronch which was negative at [facility] Also on lovenox for PE found during admission at [facility] 09/08 on High gerald 15L, 35%, feeling a little better today CT Chest with contrast 09/04- Marked progression of ground glass opacities left upper and lower lobes, interstisial opacities FRANCY, findings suspicious for progressive lymphangitic malignant disease vs an infectious or inflammatory process CXR 09/07- No significant change in marked left and mild right pulmonary opacities Follows with Dr. Dewey at [facility] Will life 2000 device at home: awaiting approval, Arlene now on 6LNC CXR today Hematuria will need to continue lovenox 2/2 PE BladderScan as needed for retention, Argueta catheter as needed with irrigation Hyponatremia Na 129 will monitor in AM labs Confusion Confusion improved, at baseline Hypertension Continue home meds Hypothyroidism Continue home meds Anxiety/insomnia PRN meds DVT ppx: lovenox Code Status: Full Dispo: 2-3 days DC home Plan to discharge in: 48 Hours Discharge Plan: Home Plan to discharge in: 48 Hours Physician Review: Patient Assessed, Agree with Above Assessment and Plan Time Spent Managing PTS Care (In Minutes): 35 <Grisel Mercer - Last Filed: 09/10/23 14:18> - Plan Oxygen is being weaned down. She is currently tolerating 6 L by nasal cannula She is on steroids and bronchodilators. Increase activity as tolerated Continue PT. <josefina barahona - Last Filed: 09/11/23 17:49>
--- NOTE | 2023-09-10 12:53 | P.PN ---
Subjective Date of Service: 09/10/23 Chief Complaint: Respiratory failure Patient is improving anxious Review of Systems General: Weakness Respiratory: Shortness of Breath Physical Examination - Vital Signs Temperature: 96.7 F Blood Pressure: 132/87 Pulse: 94 Respirations: 16 Pulse Ox (%): 99 - Physical Exam General: Alert, Oriented x3 Respiratory: Clear to auscultation bilaterally Cardiovascular: No edema, Regular rate/rhythm - Studies Medications List Reviewed: Yes Assessment And Plan - Current Problems (Diagnosis) (1) Chronic respiratory failure Current Visit: Yes Status: Acute Plan: Patient has chronic respiratory failure to be subjectively improving repeat another x-ray pending life 2000 titrate down on high flow oxygen patient has mild hyponatremia still avoid IV fluid patient is eating and drinking Qualifiers: Respiratory failure complication: hypoxia Qualified Code(s): J96.11 - Chronic respiratory failure with hypoxia Physician Review: Patient Assessed, Agree with Above Assessment and Plan
[2023-09-10] MEDS: ALBUTEROL 2.5 MG/3 ML NEB SOL NEB PRN (22:55)
[2023-09-11] MEDS: HYDROMORPHONE ORAL 4 MG TAB PO PRN ×2 (00:51→05:45)
[2023-09-11] MEDS: ALBUTEROL 2.5 MG/3 ML NEB SOL NEB PRN ×2 (07:40→13:45)
[2023-09-11] MEDS: FAMOTIDINE 20 MG/2 ML VIAL IV SCH (08:07)
--- NOTE | 2023-09-11 08:16 | RAD REPORT ---
EXAM DESCRIPTION: RAD - Chest Single View - 09/11/2023 4:26 am CLINICAL HISTORY: Respiratory failure Chest pain. COMPARISON: Chest Single View dated 09/07/2023; Chest Single View dated 09/06/2023; Chest Single Vie w dated 09/05/2023; Chest Single View dated 09/04/2023 FINDINGS: Portable technique limits examination quality. Moderate bilateral pulmonary opacities are present, essentially unchanged since comparative study. Th e heart is mildly enlarged in size. Small right pleural effusion, unchanged. IMPRESSION: No significant change in moderate bilateral pulmonary opacities since comparative study.
[2023-09-11] MEDS: ENOXAPARIN 80 MG/0.8 ML SQ SCH ×2 (08:35→20:28)
[2023-09-11] MEDS: ALPRAZOLAM 0.25 MG TABLET PO SCH ×3 (08:36→20:29)
[2023-09-11] MEDS: SPIRONOLACTONE 25 MG TABLET PO SCH ×2 (08:36→20:29)
[2023-09-11] MEDS: predniSONE 20 MG TAB PO SCH ×2 (08:36→20:29)
[2023-09-11] MEDS: VENLAFAXINE HCL XR 75 MG CAP PO SCH (08:36)
[2023-09-11] MEDS: MORPHINE 30 MG PO SCH ×3 (08:36→20:30)
[2023-09-11 09:58] LABS: Potassium 3.9 mEq/L (3.5-5.1)
--- NOTE | 2023-09-11 13:03 | P.PN ---
Subjective Date of Service: 09/11/23 Chief Complaint: Respiratory failure Subjective: Doing well (Improved oxygen perfusion and tolerating 6 LNC) HPI 09/04: Arlene Lane 57-year-old female patient past medical history significant for hypertension, hyperlipidemia, hypothyroidism, history of breast cancer on chemotherapy who was recently evaluated for episode of pneumonia and was treated on oral antibiotic and discharged home. She has multiple metastatic lesions to the lungs and also pleural effusions for which she has had significant intervention. She returned to the hospital with shortness of breath and inability to have deep breath and she was found to have lower lung field opacification strongly suggestive of pneumonia. She was admitted for inpatient care and antibiotic therapy. She denies episode of chest pain, nausea, vomiting, diarrhea. She continues to feel short of breath and this is very concerning for her. As per patient her last chemotherapy session for breast cancer was about 7 days ago. 09/09: Arlene is awake in bed, eating well, reports urinating well and ambulating in the room. On High flow NC, Dr. Flores managing. Awaiting approval for life 2000 for home use. Will try to discharge to rehab when appropriate. She denies fever, chills, CP, SOB, and GUTIERREZ. 09/10: Arlene was able to wean off the High flow and is now on 6 LNC, Dr. Flores is managing and requested approval for life 2000, awaiting approval. She did not work with therapy today but will attempt tomorrow. 09/11: Arlene is doing well on 6 LNC, she is conversing well, not out of breath. States she will work with PT this morning. She is in good spirits. <Grisel Mercer - Last Filed: 09/11/23 13:09> Date of Service: 09/11/23 Clinically improving. Currently tolerating 6 L oxygen by nasal cannula. Continue steroid and bronchodilators. Awaiting life 2000 approval Anticipating discharge to home with home health. <josefina barahona - Last Filed: 09/11/23 16:34> Review of Systems 10-point ROS is otherwise unremarkable <Grisel Mercer - Last Filed: 09/11/23 13:09> Physical Examination - Vital Signs Temperature: 97.0 F Blood Pressure: 181/100 Pulse: 73 Respirations: 24 Pulse Ox (%): 94 - Studies Medications List Reviewed: Yes <Grisel Mercer - Last Filed: 09/11/23 13:09> Assessment And Plan - Plan Physical Exam General: Alert, In no apparent distress, Oriented x3 HEENT: Atraumatic Neck: Supple Respiratory: Diminished, 6 LNC Cardiovascular: No edema, Regular rate/rhythm, Normal S1 S2 Gastrointestinal: No tenderness Musculoskeletal: No tenderness Integumentary: No rashes Neurological: Normal speech, Normal tone, Normal affect Acute hypoxic respiratory failure secondary to pneumonitis/pneumonia S/P radiation, [id number] Clinical trial Metastatic Breast cancer s/p francy mastectomy, radiation to ribs, stenting of the left ureter Hematuria Confusion Hypertension Hypothyroidism Anxiety/insomnia Plan: Acute hypoxic respiratory failure secondary to pneumonitis/pneumonia S/P radiation, [id number] Clinical trial Metastatic Breast cancer s/p francy mastectomy, radiation to ribs, stenting of the left ureter Seen by pumlonology who feels this is largely pneumonitis, continue solu-medrol, abx/supportive care Blood cultures NGTD Apparently had bronch which was negative at [facility] Also on lovenox for PE found during admission at [facility] 09/11 on 6 LNC, feeling much better CT Chest with contrast 09/04- Marked progression of ground glass opacities left upper and lower lobes, interstisial opacities FRANCY, findings suspicious for progressive lymphangitic malignant disease vs an infectious or inflammatory process CXR 09/07- No significant change in marked left and mild right pulmonary opacities Follows with Dr. Dewey at [facility] Will life 2000 device at home: awaiting approval, Arlene now on 6LNC CXR today Hematuria will need to continue lovenox 2/2 PE BladderScan as needed for retention, Argueta catheter as needed with irrigation Hyponatremia Na 132 will monitor in AM labs Confusion Confusion improved, at baseline Hypertension Continue home meds Hypothyroidism Continue home meds Anxiety/insomnia PRN meds DVT ppx: lovenox Code Status: Full Dispo: 2-3 days DC home Plan to discharge in: 48 Hours Plan to discharge in: 24 Hours Physician Review: Patient Assessed, Agree with Above Assessment and Plan Time Spent Managing PTS Care (In Minutes): 35 <Grisel Mercer - Last Filed: 09/11/23 13:09> - Plan Clinical improvement. Patient is currently tolerating 5 L oxygen by nasal cannula. Continue steroid, bronchodilator treatment. Supportive measures. Awaiting 1999 approval prior to discharge home. Anticipating discharge to home with home health. <josefina barahona - Last Filed: 09/11/23 16:34>
[2023-09-12] MEDS: HYDROMORPHONE ORAL 4 MG TAB PO PRN ×3 (05:56→23:26)
[2023-09-12] MEDS: ENOXAPARIN 80 MG/0.8 ML SQ SCH ×2 (08:52→20:19)
[2023-09-12] MEDS: FAMOTIDINE 20 MG/2 ML VIAL IV SCH (08:52)
[2023-09-12] MEDS: predniSONE 20 MG TAB PO SCH ×2 (08:52→20:20)
[2023-09-12] MEDS: SPIRONOLACTONE 25 MG TABLET PO SCH ×2 (08:52→20:19)
[2023-09-12] MEDS: VENLAFAXINE HCL XR 75 MG CAP PO SCH (08:52)
[2023-09-12] MEDS: ALPRAZOLAM 0.25 MG TABLET PO SCH ×3 (08:52→20:20)
[2023-09-12] MEDS: MORPHINE 30 MG PO SCH ×3 (08:58→20:20)
--- NOTE | 2023-09-12 10:49 | P.PN ---
Subjective Date of Service: 09/12/23 Chief Complaint: Respiratory failure Patient is improving doing much better very anxious Review of Systems General: Weakness Respiratory: Shortness of Breath Physical Examination - Vital Signs Temperature: 97.3 F Blood Pressure: 157/83 Pulse: 80 Respirations: 18 Pulse Ox (%): 98 - Physical Exam General: Alert, Oriented x3 Respiratory: Clear to auscultation bilaterally, Diminished Cardiovascular: No edema - Studies Medications List Reviewed: Yes Assessment And Plan - Current Problems (Diagnosis) (1) Chronic respiratory failure Current Visit: Yes Status: Acute Plan: Patient is doing much better improving her room air sats around 97% plan to discharge her life 1999 denies Labs reviewed white count is normal patient still has significant interstitial changes continue with prednisone 10 mg a day and spironolactone 25 mg a day in addition to her amlodipine follow-up with me in 2 weeks Qualifiers: Respiratory failure complication: hypoxia Qualified Code(s): J96.11 - Chronic respiratory failure with hypoxia Physician Review: Patient Assessed, Agree with Above Assessment and Plan
[2023-09-12] MEDS ORDERED: BISACODYL 10 MG RECTAL SUPP PR ONE (14:55)
--- NOTE | 2023-09-12 17:17 | P.PN ---
Subjective Date of Service: 09/12/23 Chief Complaint: Respiratory failure Subjective: No new changes, Doing well HPI 09/04: Arlene Patelthing 57-year-old female patient past medical history significant for hypertension, hyperlipidemia, hypothyroidism, history of breast cancer on chemotherapy who was recently evaluated for episode of pneumonia and was treated on oral antibiotic and discharged home. She has multiple metastatic lesions to the lungs and also pleural effusions for which she has had significant intervention. She returned to the hospital with shortness of breath and inability to have deep breath and she was found to have lower lung field opacification strongly suggestive of pneumonia. She was admitted for inpatient care and antibiotic therapy. She denies episode of chest pain, nausea, vomiting, diarrhea. She continues to feel short of breath and this is very concerning for her. As per patient her last chemotherapy session for breast cancer was about 7 days ago. 09/09: Arlene is awake in bed, eating well, reports urinating well and ambulating in the room. On High flow NC, Dr. Flores managing. Awaiting approval for life 2000 for home use. Will try to discharge to rehab when appropriate. She denies fever, chills, CP, SOB, and GUTIERREZ. 09/10: Arlene was able to wean off the High flow and is now on 6 LNC, Dr. Flores is managing and requested approval for life 2000, awaiting approval. She did not work with therapy today but will attempt tomorrow. 09/11: Arlene is doing well on 6 LNC, she is conversing well, not out of breath. States she will work with PT this morning. She is in good spirits. 09/12: Arlene has progressed to 4 LNC and is doing well. She requested discharge tomorrow 09/13 since tonight she will not have any assistance at home. <Grisel Mercer - Last Filed: 09/12/23 17:20> Date of Service: 09/12/23 <josefina barahona - Last Filed: 09/13/23 14:41> Review of Systems 10-point ROS is otherwise unremarkable <Grisel Mercer - Last Filed: 09/12/23 17:20> Physical Examination - Vital Signs Temperature: 98.0 F Blood Pressure: 158/82 Pulse: 76 Respirations: 76 Pulse Ox (%): 96 - Studies Medications List Reviewed: Yes <Grisel Mercer - Last Filed: 09/12/23 17:20> Assessment And Plan - Plan Physical Exam General: Alert, In no apparent distress, Oriented x3 HEENT: Atraumatic Neck: Supple Respiratory: Diminished, 4LNC Cardiovascular: No edema, Regular rate/rhythm, Normal S1 S2 Gastrointestinal: No tenderness Musculoskeletal: No tenderness Integumentary: No rashes Neurological: Normal speech, Normal tone, Normal affect Acute hypoxic respiratory failure secondary to pneumonitis/pneumonia S/P radiation, [id number] Clinical trial Metastatic Breast cancer s/p francy mastectomy, radiation to ribs, stenting of the left ureter Hematuria Confusion Hypertension Hypothyroidism Anxiety/insomnia Plan: Acute hypoxic respiratory failure secondary to pneumonitis/pneumonia S/P radiation, [id number] Clinical trial Metastatic Breast cancer s/p francy mastectomy, radiation to ribs, stenting of the left ureter Seen by pumlonology who feels this is largely pneumonitis, continue solu-medrol, abx/supportive care Blood cultures NGTD Apparently had bronch which was negative at [facility] Also on lovenox for PE found during admission at [facility] 09/12 on 4LNC, feeling much better CT Chest with contrast 09/04- Marked progression of ground glass opacities left upper and lower lobes, interstisial opacities FRANCY, findings suspicious for progressive lymphangitic malignant disease vs an infectious or inflammatory process CXR 09/07- No significant change in marked left and mild right pulmonary opacities Follows with Dr. Dewey at [facility] Will life 2000 device at home: awaiting approval, Arlene now on 6LNC CXR 09/11: "No significant change in moderate bilateral pulmonary opacities since comparative study" At discharge: Amlodipine home dose, Aldactone 25 mg daily, and prednisone 10 mg daily Hematuria will need to continue lovenox 2/2 PE BladderScan as needed for retention, Argueta catheter as needed with irrigation Hyponatremia Na 132-resolved will monitor in AM labs Confusion Confusion improved, at baseline Hypertension Continue home meds Hypothyroidism Continue home meds Anxiety/insomnia PRN meds DVT ppx: lovenox Code Status: Full Dispo: 2-3 days DC home Plan to discharge in: 48 Hours Discharge Plan: Home Plan to discharge in: 24 Hours Physician Review: Patient Assessed, Agree with Above Assessment and Plan Time Spent Managing PTS Care (In Minutes): 35 <Grisel Mercer - Last Filed: 09/12/23 17:20> - Plan Patient seen and examined. Plan of care discussed with Ms. Mercer. Respiratory status improved. Patient is currently tolerating oxygen by nasal cannula-2 to 4 L/min. Case discussed with pulmonology Dr. Flores. Patient no longer qualifies for life 1999. Planning to discharge with home oxygen. Continue prednisone Follow-up with oncology and palliative care as outpatient. . <josefina barahona - Last Filed: 09/13/23 14:41>
[2023-09-12] MEDS: POLYETHYL GLY 3350 17 GM/DOSE PO SCH (20:19)
[2023-09-12] MEDS ORDERED: GABAPENTIN 300 MG CAP PO SCH (21:00)
[2023-09-13] MEDS: HYDROMORPHONE ORAL 4 MG TAB PO PRN ×2 (02:46→06:30)
[2023-09-13] MEDS ORDERED: THYROID 30 MG TAB PO SCH (06:00)
[2023-09-13] MEDS: ENOXAPARIN 80 MG/0.8 ML SQ SCH (08:08)
[2023-09-13] MEDS: SPIRONOLACTONE 25 MG TABLET PO SCH (08:09)
[2023-09-13] MEDS: ALPRAZOLAM 0.25 MG TABLET PO SCH (08:09)
[2023-09-13] MEDS: POLYETHYL GLY 3350 17 GM/DOSE PO SCH (08:10)
[2023-09-13] MEDS: predniSONE 20 MG TAB PO SCH (08:10)
[2023-09-13] MEDS: VENLAFAXINE HCL XR 75 MG CAP PO SCH (08:10)
[2023-09-13] MEDS: MORPHINE 30 MG PO SCH (08:11)
[2023-09-13] MEDS: FAMOTIDINE 20 MG/2 ML VIAL IV SCH (08:11)
[2023-09-13 08:12] VITALS: BP 147/72
--- NOTE | 2023-09-13 08:52 | P.DS ---
Admission Date: 09/04/23 Discharge Date: 09/13/23 Disposition: ROUTINE DISCHARGE Discharge Condition: FAIR Reason for Admission: Respiratory failure - Problems (1) Chronic respiratory failure Status: Acute Qualifiers: Respiratory failure complication: hypoxia Qualified Code(s): J96.11 - Chronic respiratory failure with hypoxia (2) Interstitial pneumonitis Status: Acute (3) Pneumonia Status: Acute Hospital Course: Arlene Lane is a pleasant 57 year old Female with a past medical history significant for hypertension, hyperlipidemia, hypothyroidism, history of breast cancer on chemotherapy, and metastatic lung cancer who was admitted to the [facility] on 09/04/23 for Pneumonia. Arlene presented to the ED on 09/04 shortly after being discharged with pneumonia provided with antibiotics. She began experiencing the same symptoms of SOB and the inability to take a deep breath. She was found to have opacifications to the lower lung field suggestive of pneumonia. She has been treated for pneumonia with severe respiratory failure. She has tolerated the high flow and was able to deescalate to 2 LNC. She reports feeling better and is ready for discharge. On 09/13/23, Arlene was seen on morning rounds and deemed medically stable for discharge. Arlene was discharged with instructions to schedule follow-up appointments with PCP, Dr. Sandra Flores. Arlene was provided prescriptions for Prednisone and aldactone. The patient and family members were given the opportunity to ask questions and reported no further questions. Furthermore, all questions were answered to the best of my ability. A copy of this discharge summary will be sent to the above providers to facilitate continuity of care. Today, I personally spent 55 minutes with Arlene, of which greater than 50% of the time was spent in patient education, counseling, and coordination of care as described above. Physical Exam General: Alert, In no apparent distress, Oriented x3 HEENT: Atraumatic Neck: Supple Respiratory: Diminished, 4LNC Cardiovascular: No edema, Regular rate/rhythm, Normal S1 S2 Gastrointestinal: No tenderness Musculoskeletal: No tenderness Integumentary: No rashes Neurological: Normal speech, Normal tone, Normal affect Vital Signs/Physical Exam: Temp Pulse Resp BP Pulse Ox 97.2 F 88 18 147/72 H 99 09/13/23 04:00 09/13/23 08:09 09/13/23 04:00 09/13/23 08:09 09/13/23 04:00 Laboratory Data at Discharge: WBC 10.90 thou/uL (4.3-10.9) 09/10/23 10:28 Hgb 11.6 g/dL (12.0-15.0) L 09/10/23 10:28 Hct 34.4 % (36.0-45.0) L 09/10/23 10:28 Plt Count 376 thou/uL (152-406) 09/10/23 10:28 PT 11.5 SECONDS (9.5-12.5) 09/04/23 02:59 INR 1.05 09/04/23 02:59 APTT 24.0 SECONDS (24.3-36.9) L 09/04/23 02:59 Sodium 132 mEq/L (136-145) L 09/11/23 08:58 Potassium 3.9 mEq/L (3.5-5.1) 09/11/23 08:58 BUN 22 mg/dL (7-18) H 09/11/23 08:58 Creatinine 0.66 mg/dL (0.55-1.02) 09/11/23 08:58 Glucose 158 mg/dL (74-106) H 09/11/23 08:58 Magnesium 2.4 mg/dL (1.6-2.4) 09/04/23 02:59 Total Bilirubin 0.5 mg/dL (0.2-1.0) 09/04/23 02:59 AST 42 U/L (15-37) H 09/04/23 02:59 ALT 26 U/L (13-56) 09/04/23 02:59 Alkaline Phosphatase 305 U/L (45-117) H 09/04/23 02:59 Lipase 14 U/L (13-75) 09/04/23 02:59 Home Medications: Alprazolam [Xanax] 1 tab PO BEDTIME 08/03/21 Thyroid,Pork [[place] Thyroid] 120 mg PO [id number] 08/03/21 Gabapentin 600 mg PO BEDTIME 08/18/23 Hydromorphone [Dilaudid*] 2 mg PO Q4HP PRN 08/18/23 Omeprazole [Prilosec] 40 mg PO DAILY 08/18/23 Venlafaxine HCl [Effexor Xr] 75 mg PO DAILY 08/18/23 Amlodipine [Norvasc*] 5 mg PO DAILY #30 tab 08/21/23 Spironolactone [Aldactone*] 25 mg PO DAILY #30 tab 09/13/23 predniSONE [Deltasone*] 10 mg PO DAILY 30 Days #30 tab 09/13/23 New Medications: Spironolactone [Aldactone*] 25 mg PO DAILY #30 tab predniSONE [Deltasone*] 10 mg PO DAILY 30 Days #30 tab Physician Discharge Instructions: 1. Follow up with PCP in one week for medication updates 2. Follow up with Dr. Dewey at [facility] for further treatment 3. Follow up with Dr. Flores in one week for management of this hospital admission 4. Continue to eat highly nutritious foods and stay hydrated 5. Walk as able with caution and assistance 6. Oxygen at 2-4 LNC for O2 saturation above 90% 7. Return to the ED if symtpoms worsen New medications to be picked up at the pharmacy Aldactone 25 mg Daily prednisone 10 mg Daily Diet: Regular Activity: Fall precautions Followup: Tenzin Flores MD [ACTIVE - CAN ADMIT] - 1 Week (call to schedule an appointment) Time spent managing pt's care (in minutes): 55
[2023-09-13] MEDS ORDERED: AMLODIPINE 5 MG TAB PO SCH (09:00)
[2023-09-13 09:20] VITALS: O2SAT 97
[2023-09-13 12:37] VITALS: TEMP 97.8
== END 2023-09-13 12:30 | disposition home health service (06) | DRG 205 ==
LOC: ER 02:09 → ERHOLD 04:59 → 2ND 15:05
PROVIDERS: ADMIT Internal Medicine Nephrology; ATTEND Internal Medicine
PROC: 5A0955A Assistance with Respiratory Ventilation, Greater than 96 Consecutive Hours, High Flow/Velocity Cannula (ICD-10-PCS; principal; 2023-09-05)
DX: J70.0 Acute pulmonary manifestations due to radiation (principal); J96.01 Acute respiratory failure with hypoxia; C78.00 Secondary malignant neoplasm of unspecified lung; C79.51 Secondary malignant neoplasm of bone; E87.1 Hypo-osmolality and hyponatremia; I10 Essential (primary) hypertension; E78.5 Hyperlipidemia, unspecified; G47.00 Insomnia, unspecified; F41.9 Anxiety disorder, unspecified; E03.9 Hypothyroidism, unspecified; C50.919 Malignant neoplasm of unspecified site of unspecified female breast; R31.9 Hematuria, unspecified; Z88.5 Allergy status to narcotic agent; Z85.3 Personal history of malignant neoplasm of breast; Z90.13 Acquired absence of bilateral breasts and nipples; Z79.52 Long term (current) use of systemic steroids; Z11.52 Encounter for screening for COVID-19; Z79.899 Other long term (current) drug therapy
CPT/HCPCS: 36415; 70450; 71045; 71260; 80048; 80076; 82550; 82805; 83690; 83735; 83880; 84145; 84439; 84443; 84484; 85025; 85027; 85610; 85730; 87040; 87635; 87804; 93005; 94660; 96365; 96375; 97110; 97161; 97530; 99285; J0696; J1650; J1940; J2405; J2920; J2930; J7030; J7050; J7512; J7613; J7614; J7644; Q0169; Q9967

== ENCOUNTER 2023-10-02 09:24 | Emergency (ER) | payer BC ==
--- OUTSIDE RECORDS SUMMARY | 2023-10-02 09:34 | XMS REPORT | Clinical Summary ---
:1965 Author Organization [facility] MD Cr [facility] Address [address] [place] [address] Care Team Providers Name Role Phone Tyler Kenny MD Unavailable Marcello Schultz MD Primary Care Provider Keron Tan MD Unavailable Laura Sexton MD Unavailable Miguelito Santoyo MD Unavailable [phone] Delores Oakes Unavailable Chuck Thomas MD Unavailable Josh Dewey MD Unavailable Stephon Alejandro MD Unavailable Luis Armando Andrews MD Unavailable Allergies Active Allergy Reactions Criticality Noted Date Comments Hydrocodone-Acetamin Other (See Comments) Low 02/04/2022 Patient refused to ophen take, worried o f getting addicte d to the medicine. 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 ALPRAZolam (XANAX) 0.25 Take 1 tablet 15 [...] Drug daily. induced diabetes mellitus with hyperglycemia morphine (MS CONTIN) 30 Take 1 tablet (30 90 tablet 0 09/03/20 23 Active mg 12 hr mg) by mouth every tabletIndications: 8 (eight) hours. Cancer associated pain fluticasone Inhale 1 puff by 60 each 0 09/03/2023 Active propionate-salmeterol mouth every 12 (ADVAIR) 250 mcg-50 (twelve) hours. mcg/inhalation diskus inhalerIndications: Pneumonitis ALPRAZolam (Xanax) 0.25 Take 1 tablet 30 tablet 0 09/17/2023 Active mg tabletIndications: (0.25 mg) by mouth Estrogen receptor nightly as needed positive status (ER+) for anxiety. HYDROmorphone Take 1 tablet (4 84 tablet 0 09/18/2023 Active (DILAUDID) 4 mg mg) by mouth every tabletIndications: 4 (four) hours as Cancer associated pain needed for severe pain (pain). prochlorperazine Take 1 tablet (10 30 tablet 3 09/18/2023 Active (Compazine) 10 mg mg) by mouth every tabletIndications: 6 (six) hours as Estrogen receptor needed for nausea positive status (ER+), or vomiting. Metastatic malignant neoplasm to bone capecitabine (Xeloda) Take 7 tablets 98 tablet 2 09/18/2023 Active 500 mg (3,500 mg) by tabletIndications: mouth in divided Estrogen receptor doses. 3 tabs QAM positive status (ER+), and 4 tabs QPM x Metastatic malignant 14 days, then none neoplasm to bone x 7 days. naloxone (Narcan) 4 Use 1 dose into 2 each 0 09/18/2023 Active mg/actuation nasal one nostril as sprayIndications: needed for opioid Cancer associated pain overdose. Do not prime or test the inhaler prior to adminstration. Give another dose into the other nostril after 2 to 3 minutes if the patient does not respond or responds and then relapses into respiratory depression. acetaminophen-codeine TAKE 1 TABLET BY 0 11/08/2021 04/2 Discontinued (TYLENOL #3) 300 mg-30 MOUTH EVERY 6 6/2 0 (Reorder) mg tablet HOURS NEEDED 23 FOR PAIN WHEN AWAKE Ventolin HFA 90 Inhale 1 puff by 0 09/28/2021 09/0 Discontinued mcg/actuation inhaler mouth every 6 620 (Not Applicable) (six) hours as 23 needed for wheezing or shortness of breath. ALPRAZolam (XANAX) 0.5 TAKE 1 TABLET BY 0 11/16/202105/11 Discontinued mg tablet MOUTH ONCE DAILY. 05/29 (E rror) 23 letrozole (FEMARA) 2.5 TAKE 1 TABLET BY 0 11/02/2021/0 Discontinued mg tablet MOUTH ONCE DAILY 11/29 23 omeprazole (PriLOSEC) TAKE 1 CAPSULE BY 0 11/18/202108/10 Discontinued 40 MG capsule MOUTH IN THE 02/27 (Er ror) MORNING 23 famotidine (PEPCID) 20 Take 1 tablet (20 0 Discontinued mg tablet mg) by mouth 04/29 (Other ) nightly as needed 23 for indigestion, heartburn or reflux. Constulose 10 gram/15 TAKE 10 GRAMS ONCE 0 05/11 Discontinued mL solution DAILY FOR 05/29 (Error) CONSTIPATION 23 multivitamin capsule Take 1 capsule by 0 0 07/11 Discontinued mouth daily. 03/29 (Error) 23 ondansetron (ZOFRAN) 8 Take 1 tablet (8 [...] Take 1 tablet (2.5 90 tablet 3 03/19/20 22 / Discontinued mg tabletIndications: mg) by mouth 11/29 [...] Dissolve 1 tablet 30 tablet 3 07/04/2022 Discontinued (ZOFRAN-ODT) 8 mg (8 mg) on the 04/29 (Other ) disintegrating tongue every 8 23 tabletIndications: (eight) hours as Metastatic malignant needed [...] (NEURONTIN) Take 2 capsules 60 capsule 2 10/25/202207/12 Discontinued 300 mg (600 mg) by mouth [...] Take 1 tablet by 30 tablet 2 12/04/202206/11 Discontinued (Compazine) 10 mg mouth every 6 02/27 tabletIndications: hours as needed 23 Estrogen receptor for positive status (ER+), nausea/vomiting Metastatic malignant neoplasm to bone alpelisib (PIQRAY) 300 Take 2 tablets 56 tablet 2 12/04/2022 0 06/11 Discontinued mg/day (150 mg x [...] Discharge) ibuprofen TAKE 1 TABLET BY 0 01/28/202303/11 Di scontinued (ADVIL,MOTRIN) 800 mg MOUTH EVERY 6 02/27 (Therapy tablet HOURS WITH FOOD 23 comp leted) ALPRAZolam (XANAX) 0.25 Take 1 tablet 0 01/09/2023 0 9 Discontinued mg tablet (0.25 mg) by mouth 04/29 ( Reorder) at bedtime. 23 acetaminophen-codeine Take 1 tablet by 45 tablet 0 03/05/202304/10 Discontinued (TYLENOL #3) 300 mg-30 mouth 2 (two) 07/12 0 mg tabletIndications: times a day as 23 Neoplasm related pain needed for (acute) (chronic) moderate pain. blood sugar diagnostic 1 strip by 30 strip 3 03/06/202303/11 (glucose blood) miscellaneous 05/29 strpIndications: route before 23 Metastatic malignant breakfast for 30 neoplasm to bone, days. Estrogen receptor positive status (ER+) lancets 30 Units by see 30 each 3 03/07/202303/11 Exp ired miscIndications: administration 06/29 Metastatic malignant [...] 2 tablets 56 tablet 2 06/24/2023 0 06/11 Discontinued mg/day (150 mg x [...] Inhale 2 puffs by 6.7 g 0 3 06/10 Discontinued 90 mcg/puff mouth every 06/29 (Reo rder) inhalerIndications: (six) hours as 23 Shortness of breath needed for wheezing or shortness of breath. ibuprofen Take 1 tablet (600 10 tablet 0 06/27/202306/10 Discontinued (ADVIL,MOTRIN) 600 mg mg) by mouth every 06/29 (Reorder) tabletIndications: Back 8 (eight) hours as 23 pain, not otherwise needed for specified moderate pain. ibuprofen Take 1 tablet (600 10 tablet 0 06/27/2023 09/0 Discontinued (ADVIL,MOTRIN) 600 mg mg) by mouth [...] Take 1 capsule (2 28 capsule 3 07/17/2008/11 Discontinued mg capsuleIndications: mg) by mouth at (Therapy Metastatic malignant the first onset of completed) neoplasm to bone, diarrhea, then 1 [...] Take 1 tablet (10 15 tablet 0 07/21/2023 09/2 Discontinued (FLEXERIL) 10 mg mg) by mouth [...] T aking at tabletIndications: daily. Begin 2 Discharge) Hydronephrosis due to days before ureteral stricture surgery predniSONE (DELTASONE) Take 1 tablet (10 0 3 08/11 Discontinued 10 mg tablet mg) by mouth twice 02/27 (Stop Taking at daily. 23 Discharge) predniSONE (DELTASONE) Take 5 tablets (50 75 tablet 0 09/04/20 23 09/11 10 mg mg) by mouth daily tabletIndications: for 5 days, THEN 4 23 Pneumonitis tablets (40 mg) daily for 5 days, THEN 3 tablets (30 mg) daily for 5 days, THEN 2 tablets (20 mg) daily for 5 days, THEN 1 tablet (10 mg) daily for 5 days. HYDROmorphone Take 1 tablet (4 90 tablet 0 09/03/2023 Discontinued (DILAUDID) 4 mg mg) by mouth every 07/30 (Reorder) tabletIndications: 4 (four) hours as 23 Cancer associated pain needed (pain). Active Problems Patient Care Coordination Note Formatting of this note might be differe nt from the original. Asymptomatic COVID-19 test completed on 07/08/22. Test results in Media tab. PCR performed from nasopharyngeal source per report. Problem Noted Date Diagnosed Date Pain management education for family 09/17/2023 Malignant neoplasm related fatigue 09/12/2023 Slow transit constipation 09/12/2023 Other psychological or physical stress, not elsewhere 2022 classified Nausea alone 09/12/2023 Encounter for palliative care 09/12/2023 Adjustment disorder with anxiety 09/09/2023 Pneumonitis 09/03/2023 Drug induced diabetes mellitus with hyperglycemia 08/29/2023 Adverse effect of glucocorticoids and synthetic analogues correction current use of systemic steroid 08/29/2023 Anxiety disorder due to a general medical condition 08/27/20 Psychiatric interview and evaluation 08/26/2023 History of cancer metastatic to bone 08/25/2023 Pathological fracture in neoplastic disease, pelvis and 08/10 femur Pulmonary infiltrate 08/23/2023 Overview: Added automatically from request for arturo armas [id number] Cancer associated pain 07/30/2023 Serum creatinine above [...] Added automatically from request for arturo armas [id number] Dyspnea 06/26/2023 Last Assessment & Plan: Formatting [...] Added automatically from request for arturo armas [id number] Last Assessment & Plan: S/p right thoracentesis x 1 followed by thoracoscopy with talc pleurodesis on 06/05/23 with placement of IPC IPC removal on 06/12/23. Small right loculated effusion on subseq uent imaging not amenable to intervention. I had discussion with Ms. 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 Metastatic malignant neoplasm to bone 11/20/2021 Postmenopausal state 04/05/2019 Anxiety 04/05/2019 Resolved Problems Problem Noted Date Diagnosed Date Resolved Date Pleural effusion 05/05/2023 06/26/2023 Overview: Added automatically from request for arturo armas [id number] Encounters Date Type Department Care Team Description 10/01/2023 Documentation Clinical Center for Koki Olvera RN Targeted Therapy [address] [facility] Main dg, [place] [address] 09/29/2023 [facility]ill [facility] receptor [facility] - Breast [facility] MD Marcello positi ve status Oncology (ER+) [address], [place] [address] 09/25/2023 Documentation Clinical Center for Koki Olvera, VITOR Targeted Therapy [address] Main Bldg, 11th [place] [address] 09/25/2023 Telephone Clinical Center for Koki Olvera RN Targeted Therapy [address] Main Bldg, 11th [place] [address] 09/23/2023 Orders Only Edis Sepulveda Hypoxemia (Primary Dx); [facility] BRITT Burrell Pneumo nitis; Oncology Pulmonary infiltrate; [address] [facility] Malignant pleural effusion; South Metastatic malignant neoplas m to [place], [place] [address] 09/23/2023 Case Management Case Management Gwen Hatfield, [address] [place] [address] 09/23/2023 Orders Only Edis Sepulveda Hypoxemia (Primary Dx); [facility] BRITT Burrell Orthopnea; [address] [facility] Pneumoniti s; South Pulmonary embolism, [place] [address] 09/18/2023 Follow-Up Clinical Center for Irene Barrios ating duct 1:00 PM Targeted Therapy MD Panda and lobular SURGICAL RESIDENT [address] carcinoma of breast, Main Bldg, 11th Floo r NOS <Female; Right> [place] [address] 09/18/2023 Orders Only Clinical Center for Ester Comer RPH Targeted Therapy [address] Main Bldg, 11th [place] [address] 09/18/2023 Travel 09/18/2023 Telephone Clinical Center for Mariah Marion Targeted Therapy VITOR Mendoza [address] Main Bldg, 11th [place] [address] 09/17/2023 Follow-Up MD Charles Pérez Abouharb, Metastati c malignant neoplasm to bone (Primary Dx); 10:40 AM [facility] MD Marcello Estrog en receptor positive status (ER+) SURGICAL RESIDENT Oncology [address], [place] [address] 09/17/2023 Documentation Clinical Center for Koki Olvera RN Targeted Therapy [address] Main Bldg, 11th [place] [address] 09/17/2023 Documentation Clinical Center for Koki Olvera RN Targeted Therapy [address] Main Bldg, 11th [place] [address] 09/17/2023 Travel 09/16/2023 Telemedicine MD Charles Schultz, Estrogen receptor 3:00 PM [facility] - Breast [facility] MD Marcello positi ve status SURGICAL RESIDENT Oncology (ER+) (Primary Dx) [address] [address] 09/15/2023 Refill Clinical Center for Ayesha Cason Cance r associated Targeted Therapy RN pain [address] Main Bldg, 11th [place] [address] 09/15/2023 Orders Only Clinical Center for Koki Olvera RN Infil trating duct Targeted Therapy and lobular [address] carcinoma of breast, Main Bldg, 11th Floo r NOS <Female; Right> Elevator C (Primary Dx) [place] [address] 09/11/2023 Orders Only Clinical Center for Koki Olvera RN Targeted Therapy [address] Main Bldg, 11th [place] [address] 09/09/2023 Documentation Clinical Center for Koki Olvera RN Targeted Therapy [address] Main Bldg, 11th [place] [address] 09/08/2023 Case Management Case Management Julee, [address] [address] 09/05/2023 Orders Only MD Charles Schultz, Estrogen receptor positive status (ER+) (Primary Dx); [facility] MD Marcello Metast atic malignant neoplasm to bone Oncology [address] [address] 09/05/2023 Case Management Case Management Ladd, [address] [address] 09/05/2023 Telephone Clinical Center for Koki Olvera RN Targeted Therapy [address] Main Bldg, 11th [place] [address] 08/29/2023 Hospital Encounter Radiation Oncology Bao, Discharge 3:[address] Tri Villegas, Disposition: Home CDT - [facility], 1st MD 08/29/2023 Floor 11:59 PM [place] [address] 08/27/2023 Documentation Radiation Oncology Bao, [address], [facility] [place] [address] 08/27/2023 Orders Only Clinical Center for Koki Olvera RN Infil trating duct Targeted Therapy and lobular [address] carcinoma of breast, Main Bldg, 11th Floo r NOS <Female; Right> Elevator C (Primary Dx) [place] [address] 08/27/2023 Documentation Clinical Center for Koki Olvera RN Targeted Therapy [address] Main Bldg, 11th [place] [address] 08/27/2023 Documentation Clinical Center for Koki Olvera RN Targeted Therapy [address] Main Bldg, 11th [place] [address] 08/26/2023 Orders Only MD Charles Schultz, Estrogen receptor [facility] MD Marcello positi ve status Oncology (ER+) (Primary Dx) [address] [address] 08/26/2023 Orders Only Cardiopulmonary de Lumban, Pneumonia, n ot Center - Pulmonology Debra C, CONTRACT TECHNICAL WRITER other william specified Medicine (Primary Dx) [address] Main Bldg, 6th [place] [address] 08/26/2023 Documentation Radiation Oncology Bao, [address] [facility], 1st MD [place] [address] 08/26/2023 Documentation Radiation Oncology Bao, [address] [facility], 1st MD [place] [address] 08/25/2023 Surgery Cardiopulmonary Kim Gillespie, FLEXIBLE 11:00 AM [place] - Pulmonology BRONCHO SCOPY WITH CDT - Procedures BRONCHIAL ALVEOLAR 08/25/[address] LAVAGE 12:00 PM Main Bldg, 6th [place] [address] 08/25/2023 Hospital Encounter Radiation Treatment Rena Schultz 6:15 AM [place] MD Marcello Disposition: Home CDT - [address] 08/25/2023 Main Bldg 11:59 PM [place] [address] 08/25/2023 Orders Only Radiation Oncology Doughtie, Metastatic malignant [address] Sarahi M, neoplasm to bone [facility], 1st CONTRACT TECHNICAL WRITER (Primary Dx ) [place] [address] 08/25/2023 Orders Only Radiation Oncology Bao, Secondary and [address] [facility], unspecified [facility], 1st MD malignant n eoplasm Floor of axilla and upper near [place]vator [place] [address] (Primary Dx) [phone] 08/24/2023 Prep for Surgery Cardiopulmonary Syed Merritt, Pulmona ry infiltrate [place] - Pulmonology (Primar y Dx) Medicine [address] Main Bldg, 6th [place] [address] 08/23/2023 Hospital Encounter MAIN 21SW Krishnamani, Breast cancer (Primary Dx); 10:43 AM [address] Gallo MD Hip pain; CDT - Vinod Henderson, Pathological fracture in pro plastic disease, hip, unspecified, initial encounter for fracture; 09/03/2023 [place] [address] MD Aubrie History of cancer metastatic to bone; 2:23 PM [phone] [place], Dyspnea; CDT Clifton Mejia MD Pulmonary [...] neoplasm to bone (Primary Dx); 3:10 PM [place] BRITT Neoplasm related pain (acute ) (chronic) CDT - [address] [facility] Discharge Disposition: Home 08/22/2023 [facility], 4th Floor 11:59 [place] [address] 08/22/2023 Ancillary Procedure X-Ray Outpatient [facility], 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, NOS <Female; Right>; 2:15 PM Efraín Martinez APRN Metastatic malignant neoplas m to bone CDT [address] [facility], 7th [place] [address] 08/22/2023 Ancillary Procedure X-Ray Outpatient [facility], 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, NOS <Female; Right>; 2:00 PM Center BRITT Martinez Metastatic malignant neoplas m to bone CDT [address] [facility], 7th [place] [address] 08/22/2023 Follow-Up Clinical Center for Naya Romano Infiltra ting duct and lobular carcinoma of breast, NOS <Female; Right> (Primary Dx); 12:00 PM Targeted Therapy BRITT Childs Metastatic malignant neoplasm to bone; CDT [address] Marcella Sherman Secondary and unspecified ma lignant neoplasm of lymph nodes of multiple regions, not otherwise specified; Main Bldg, 11 Floo r RMD Cancer associated pain; Elevator C Dyspnea, [place] [address] 08/22/2023 Hospital Encounter Diagnostic Laboratory Katherine Garcia, Metastatic malignant neoplasm to bone; 10:00 AM Center CONTRACT TECHNICAL WRITER Estrogen receptor positive s tatus (ER+) CDT - [address] Discharge Disposition: Home 08/22/2023 Main Bldg, Elevator A 3:09 [place] [address] CDT 08/22/2023 Telephone Clinical Center for Reva, Targeted Therapy BRITT Martinez [address] Main Bldg, 11th [place] [address] 08/22/2023 Case Management Case Management Ambika Alegre [address] [address] 08/22/2023 Orders Only Pain Management Blair Rowland, Neoplasm related Center CONTRACT TECHNICAL WRITER pain (acute) [address] (chronic) (Primary Main Bldg, 4th Floor Dx) [place] [address] 08/22/2023 Travel 08/20/2023 Documentation Clinical Center for Koki Olvera RN Targeted Therapy [address] Main Bldg, 11th [place] [address] 08/17/2023 Documentation Clinical Center for Koki Olvera RN Targeted Therapy [address] Main Bldg, 11th [place] [address] 08/15/2023 Telephone Clinical Center for Koki Olvera RN Targeted Therapy [address] Main Bldg, 11th [place] [address] 08/15/2023 Orders Only Carlos Cruz PA Hydron ephrosis, not City - Urology otherwise specified [address] [facility] (Primary D x) [place] [address] 08/15/2023 Orders Only Clinical Center for Koki Olvera RN Metas tatic malignant neoplasm to bone (Primary Dx); Targeted Therapy 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, NOS <Female; Right>; [address] Estrogen receptor positive s tatus (ER+) Main Bldg, 11th [place] [address] 08/15/2023 Orders Only [facility] [place], Metastatic malignant [address] MELCHOR [place] neoplasm to bone Main Bldg, 9th Floor (Primary Dx) [place] [address] 08/14/2023 Hospital Encounter Clinical and Josh Dewey Metastat ic malignant neoplasm to bone; 12:00 PM Translational Estrogen print press operator tor positive status (ER+) [facility] Research [place] Discharge Disposition: Home [address] Main Bldg, 2nd [place] [address] 08/14/2023 Hospital Encounter Clinical and Josh Dewey Estrogen receptor positive status (ER+) (Primary Dx); 12:00 PM Translational Metastatic malignant neoplasm to bone [facility] Sivakumar Carroll, Discharge Disposition: Home [address] RN Main Bldg, 2nd [place] [address] 08/14/2023 Hospital Encounter Cardiopulmonary Vianca Campos, Pre-steele rgery evaluation 10:00 AM Center CONTRACT TECHNICAL WRITER Discharge Disposition: Home CDT - [address] 08/14/2023 Main Bldg, 6th Floor 11:59 AM Elevator C CDT [place] [id number] 08/14/2023 Orders Only Clinical Center for Tristen, Metastat ic malignant Targeted Therapy Hansini neoplasm to bone [address] (Primary Dx) Main Bldg, 11th [place] [address] 08/14/2023 Travel 08/12/2023 Anesthesia Event Perioperative Vianca Campos, 11:59 PM Evaluation and CONTRACT TECHNICAL WRITER CDT Management Center [address] Main Bldg, 6th [place] [address] 08/12/2023 Case Management Case Management Xiomara Arguelles [address], [place] [address] 08/12/2023 Orders Only Vivian Bravo, Hydron ephrosis due City - Survivorship PA to ureteral [address] stricture (Primary South [place]x) [place] [address] 08/11/2023 Follow-Up Clinical Center for Marcella Sherman trating duct and lobular carcinoma of breast, NOS <Female; Right> (Primary Dx); 2:40 PM Targeted Therapy R, Exam of participant in clinical trial; CDT [address] Vicenta Li MD 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; Main Bldg, 11 Floo r PhD Estrogen receptor positive s tatus (ER+); Elevator C Metastatic malignant neoplas m to bone; [place] [address] Hypercalcemia; [phone] Hyperuricemia; Serum creatinin e above reference range; Malignant pleur al effusion 08/11/2023 Hospital Encounter Diagnostic Laboratory Katherine Garcia, 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, 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; Right>; 11:30 AM Center CONTRACT TECHNICAL WRITER Hydronephrosis, not otherwis e specified CDT - [address] Discharge Disposition: Home 08/11/2023 Main dg, Elevator A 11:59 [place] [address] CDT 08/11/2023 Orders Only Clinical Center for Koki Olvera RN Metas tatic malignant neoplasm to bone (Primary Dx); Targeted Therapy 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, NOS <Female; Right> [address] Main Bldg, 11th [place] [address] 08/11/2023 Orders Only Clinical Center for Vicenta Li MD Metast atic malignant neoplasm to bone (Primary Dx); Targeted Therapy PhD Estrogen receptor positive s tatus (ER+) [address] Main Bldg, 11th [place] [address] 08/11/2023 Orders Only Clinical Center for [employer] Targeted Therapy III, PharmD [address] Main Bldg, 11th [place] [address] 08/11/2023 Travel 08/08/2023 Orders Only Carlos Cruz PA Hydron ephrosis, not City - Urology otherwise specified [address] [facility] (Primary D x) [place] [address] 08/07/2023 Documentation Clinical Center for Koki Olvera RN Targeted Therapy [address] Main Bldg, 11th [place] [address] 08/07/2023 Orders Only Clinical Center for Koki Olvera RN Infil trating duct and lobular carcinoma of breast, NOS <Female; Right> (Primary Dx); Targeted Therapy Estrogen receptor positive s tatus (ER+) [address] Main Bldg, 11th [place] [address] 08/06/2023 Orders Only Clinical Center for Koki Olvera RN Infil trating duct Targeted Therapy and lobular [address] carcinoma of breast, Main Bldg, 11th Floo r NOS <Female; Right> Elevator C (Primary Dx) [place] [address] 08/04/2023 Hospital Encounter Radiation Treatment Rena Schultz 6:15 AM Center MD Marcello Disposition: Home CDT - [address] 08/04/2023 Main Bldg 11:59 PM [place] [address] 08/04/2023 Documentation Radiation Oncology Brenna Strong, [address] [place] [address] 08/04/2023 Documentation Radiation Oncology Brenna Strong, [address] [place] [address] 08/01/2023 Documentation Radiation Oncology Brenna Strong, [address] [place] [address] 08/01/2023 Documentation Radiation Oncology Brenna Strong, [address] [place] [address] 07/31/2023 Orders Only Clinical Center for Koki Olvera RN Targeted Therapy [address] Main Bldg, 11th [place] [address] 07/31/2023 Orders Only Radiation Oncology Olsen, Metastatic malignant [address] Acuna APRN neoplasm to bone [facility], 1st (Primary Dx ) [place] [address] 07/30/2023 Anesthesia Event Diagnostic Imaging Eunice Willis 9:11 AM Efraín Galeano MD CDT [address] Main Bldg, 3rd [place] [address] 07/30/2023 Orders Only [facility] Tyler Childs Metastatic malignant [address]MELCHOR Tellez neoplasm to bone Main Bldg, 9th Floor (Primary Dx) [place] [address] 07/28/2023 Anesthesia Event Diagnostic Imaging Analy Pringle, 4:54 PM Efraín NAVARRO CDT [address] Main Bldg, 3rd [place] [address] 07/28/2023 Hospital Encounter Oral Oncology Kahn, Encounter for observation fo r other suspected disease ruled out 10:13 AM [address] Sifuentes DDS Discharge Disposition: Home CDT - Main Bldg, 9th Floor 07/28/2023 Elevator A 11:59 [place] [address] CDT [phone] 07/28/2023 Documentation Clinical Center for Koki Olvera RN Targeted Therapy [address] Main Bldg, 11th [place] [address] 07/27/2023 Orders Only Oral Oncology Aloutha, Encounter for [address] LALITO Leary observation for Main Bldg, 9th Floor other suspected [place] [address] (Primary Dx) [phone] 07/27/2023 Telephone [facility], [address] [facility] [place] [address] 07/26/2023 Travel 07/25/2023 Hospital Encounter MAIN 21SE Victorino Dawn Neoplasm of extradural space (Primary Dx); 5:57 PM [address] Perez DO Secondary and unspecified malignant neop lasm of lymph nodes of multiple regions; CDT - [place] Ant Durant A, 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, NOS <Female; Right>; 08/05/2023 [place] [address] Metastatic malignant neoplasm to bone; 5:52 PM [phone] Hong Rodriguez MD Encounter for observation for [...] MD Charles Santoyo, Neoplasm related 11:20 AM [facility] - Pain Medicine Miguelito, pain (acute) CDT [address] Huerta MD (chronic) (Primary South Dx) [place], [place] [address] 07/25/2023 Telephone Clinical Center for Lizet Garcia, Targeted Therapy CONTRACT TECHNICAL WRITER [address] Main Bldg, 11th [place] [address] 07/25/2023 Orders Only Clinical Center for Lizet Garcia, Targeted Therapy CONTRACT TECHNICAL WRITER [address] Main Bldg, 11th [place] [address] 07/24/2023 Anesthesia Event Diagnostic Imaging Joseph, 2:56 PM Center MD Shirley CDT [address] Koki Whitney, Main Bldg, 3rd Floor DOCK PUMPER Elevator F [place], [place] [id number] 07/24/2023 Follow-Up Clinical Center for Naya Romano Metastat ic malignant neoplasm to bone (Primary Dx); 10:20 AM Targeted Therapy Naz, BRITT 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, NOS <Female; Right>; CDT [address] Briceno, Hypercalcemia; Main Bldg, 11th Floo r [place], CONTRACT TECHNICAL WRITER Hyposmolality and/or hyponat remia; Elevator C Hyperphosphatemia; [place] [address] Hyperuricemia; [phone] Serum creatinin e above reference range 07/24/2023 Hospital Encounter Diagnostic Imaging Lizet Garcia, Hip pain <Right side> 10:15 AM [place] CONTRACT TECHNICAL WRITER Discharge Disposition: Home CDT - [address] Joseph, 07/24/2023 Main Bldg, 3rd Floor MD Shirley 11:59 PM Elevator F CDT [place], [place] [id number] 07/24/2023 Hospital Encounter Diagnostic Laboratory Josh Dewey, Metastatic malignant neoplasm to bone; 6:30 AM [place] Estrogen receptor positive s tatus (ER+) CDT - [address] Discharge Disposition: Home 07/24/2023 Main Bldg, Elevator A 10:14 [place] [address] CDT 07/24/2023 Travel 07/24/2023 Documentation Clinical Center for Koki Olvera RN Targeted Therapy [address] Main Bldg, 11th [place] [address] 07/23/2023 Anesthesia Event Perioperative Naina Rivera, 11:59 PM Evaluation and CONTRACT TECHNICAL WRITER CDT Management Center [address] Main Bldg, 6th [place] [address] 07/23/2023 POEM Appointments Perioperative Abouharb, 12:30 PM Evaluation and MD Marcello CDT Management Center [address] Main Bldg, 6th [place] [address] 07/23/2023 Case Management Case Management Serg Rod [address] [place] [address] 07/22/2023 Refill MD Charles Martinez, Neoplasm related City - Breast Surgery Sharon Brizuela RN pain ( acute) Oncolgy (chronic) [address] [place], [place] [address] 07/22/2023 Orders Only Clinical Center for Koki Olvera RN Metas tatic malignant neoplasm to bone (Primary Dx); Targeted Therapy Estrogen receptor positive s tatus (ER+) [address] Main Bldg, [place] [address] 07/22/2023 Telephone Clinical Center for Ayesha Cason, Targeted Therapy RN [address] Main Bldg, 11 [place] [address] 07/22/2023 Orders Only Clinical Center for Lizet Garcia Hip p ain <Right Targeted Therapy CONTRACT TECHNICAL WRITER side> (Primary Dx) [address] Main Bldg, 11th [place] [address] 07/21/2023 Emergency Acute Cancer Care Jairo Fraire, Hip pain (Primary Dx); 9:32 PM Center Hip pain <Right side>; T - [address] [facility] History of fall 07/21/2023 Main Bldg, 1st Floor Discharge Disposition: Home 11:08 PM [place] [address] 07/21/2023 Travel 07/18/2023 Orders Only Clinical Center for Koki Olvera RN Infil trating duct Targeted Therapy and lobular [address] [facility] carcinoma of breast, Main Bldg, 11th Floo r NOS <Female; Right> Elevator C (Primary Dx) [place] [address] 07/18/2023 Refill Carlos Cruz PA Hydron ephrosis, not City - Urology otherwise specified [address] [place], [place] [address] 07/17/2023 Hospital Encounter Clinical and Naya Romano Estrogen receptor positive status (ER+) (Primary Dx); 8:00 AM French Childs APRN Metastatic malignant neoplasm to bone CDT [facility] Stefania Bal Discharge Disposition: Home [address] [facility] Briana Bruner RN Main Bldg, 1st [place] [address] 07/17/2023 Hospital Encounter Clinical and Naya Romano Infiltrat ing duct and lobular carcinoma of breast, NOS <Female; Right> 8:00 AM French Childs APRN Discharge Disp osition: Home T [facility] [address] [facility] Main Bldg, 1st [place] [address] 07/17/2023 Anesthesia Event Perioperative Catrina Guillermo 1:02 AM Evaluation and Jim RN CDT Management Center [address] Main Bldg, 6th [place] [address] 07/17/2023 Orders Only Clinical Center for Koki Olvera RN Metas tatic malignant neoplasm to bone (Primary Dx); Targeted Therapy 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, NOS <Female; Right> [address] Main Bldg, 11th [place] [address] 07/17/2023 Travel 07/16/2023 Telemedicine MD Charles Pérez Abouharb, Estrogen receptor positive status (ER+) (Primary Dx); 3:20 PM [facility] MD Marcello Metast atic malignant neoplasm to bone CDT Oncology [address] [place], [place] [address] 07/16/2023 Follow-Up Clinical Center for Josh Dewey, Infiltr ating duct and lobular carcinoma of breast, NOS <Female; Right> (Primary Dx); 11:30 AM Targeted Therapy Metastatic malignant neoplas m to bone; CDT [address] Malignant pleural effusion; Main Bldg, 11 Floo r Hypothyroidism, not otherwis [place] [address] 07/16/2023 POEM Appointments Perioperative Vivian Granados, Pre op labs (Primary 10:30 AM Evaluation and PA Dx) CDT Management Center [address] Main Bldg, 6th [place] [address] 07/16/2023 Hospital Encounter Diagnostic Laboratory Juan AntonioNaya 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, NOS <Female; Right> 6:45 AM Center BRITT Childs Discharge Disposition: Home CDT - [address] 07/16/2023 Main Bldg, Elevator A 11:59 [place] [address] CDT 07/16/2023 Orders Only Clinical Center for Josh Dewey, Metasta tic malignant neoplasm to bone (Primary Dx); Targeted Therapy Estrogen receptor positive s tatus (ER+) [address] Main Bldg, 11th [place] [address] 07/16/2023 Orders Only Clinical Center for John Lewis tatic malignant neoplasm to bone (Primary Dx); Targeted Therapy III, PharmD Estrogen receptor positive s tatus (ER+) [address] Main Bldg, 11th [place] [address] 07/16/2023 Travel 07/15/2023 Hospital Encounter Naya Hendrix Infil trating duct and lobular carcinoma of breast, NOS <Female; Right> 12:54 PM Link BRITT Childs Discharge Disposition: Home CDT - [address] 07/15/2023 [place] [address] MD Carleen 11:59 PM [phone] CDT 07/15/2023 Orders Only MD Charles Pérez Abouharb, Estrogen receptor positive status (ER+) (Primary Dx); [facility] MD Marcello Metast atic malignant neoplasm to bone Oncology [address] [place], [place] [address] 07/15/2023 Orders Only Clinical Center for Ester Comer RPH Metas tatic malignant neoplasm to bone (Primary Dx); Targeted Therapy Estrogen receptor positive s tatus (ER+) [address] Main Bldg, 11th [place] [address] 07/15/2023 Orders Only Clinical Center for Koki Olvera RN Targeted Therapy [address] Main Bldg, 11th [place] [address] 07/15/2023 Travel 07/11/2023 Hospital Encounter Interventional Antoine, Partha tic malignant neoplasm to bone (Primary Dx); 2:58 PM Radiology MD Marcello 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, NOS <Female; Right>; CDT - [address] Nataly King M, Hip pain <Left side>; 07/11/2023 [facility], 4th PA Encounter f or other preprocedural examination 11:59 PM Floor Discharge Disposition: [place] [address] 07/11/[address] Imaging Naya Romano Infiltrating duct 11:45 AM [address] APRN and lobular CDT [facility], 7th carcinoma o f breast, Floor NOS <Female; Right> [place] [address] 07/11/2023 Ancillary Procedure Nuclear Medicine Naya Romano 11:00 AM [address] APRN CDT [facility], 6th Floor, [place] [address] 07/11/2023 Hospital Encounter Cardiopulmonary Wood, Orelia Infilt rating duct and lobular carcinoma of breast, NOS <Female; Right> 9:30 AM [place] BRITT Childs Discharge Disposition: Home CDT - [address] 07/11/2023 Main Bldg, 6th Floor 2:57 [place] [address] 07/11/2023 Hospital Encounter Cardiopulmonary Wood, Orelia Infilt rating duct and lobular carcinoma of breast, NOS <Female; Right> 9:15 AM [place] Naz, CONTRACT TECHNICAL WRITER Discharge Disposition: Home CDT - [address] 07/11/2023 Main Bldg, 6th Floor 9:29 [place] [address] 07/11/2023 Hospital Encounter Cardiopulmonary Wood, Orelia Infilt rating duct and lobular carcinoma of breast, NOS <Female; Right> 9:00 AM [place] BRITT Childs Discharge Disposition: Home CDT - [address] 07/11/2023 Main Bldg, 6th Floor 9:14 [place] [address] 07/11/2023 Ancillary Procedure Nuclear Medicine Juan Antonio, Alirezalia Infiltrating duct 8:30 AM [address] [facility] BRITT Childs and lobular CDT [facility], 6th carcinoma o f breast, Floor, Elevator T NOS <Female; Right> [place] [address] 07/11/2023 Orders Only Interventional Nataly King, Radiology PA [address] [facility], 4th [place] [address] 07/11/2023 Travel 07/10/2023 Orders Only Edis Sepulveda 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); [facility] Medical BRITT Burrell Infilt rating duct and lobular carcinoma of breast, NOS <Female; Right> Oncology [address] [place], [place] [address] 07/09/2023 Orders Only Edis Sepulveda [facility] Breast Medical BRITT Burrell Oncology [address] [place] [address] 07/08/2023 Ancillary Procedure X-Ray Outpatient Radha Lombardo Fal l <Initial> 1:45 PM Center N CONTRACT TECHNICAL WRITER CDT [address] [facility], 7th Floor Elevator T [place], [place] [id number] 07/08/2023 Hospital Encounter Head and Neck Center Laura Sexton , 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, NOS <Female; Right> 1:00 PM - Ophthalmology MD Discharge Disposition: Home CDT - [address] 07/08/2023 Main Bldg, 9th Floor 11:59 PM Elevator A CDT [place], [place] [address] 07/08/2023 Follow-Up Clinical Center for Naya Romano Metastat ic malignant neoplasm to bone (Primary Dx); 11:40 AM Targeted Therapy BRITT Childs 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, NOS <Female; Right>; CDT [address] Briceno, Metastatic malignant neoplas m to pleura; Main Bldg, 11th Floo r BRITT Nuñez 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; Elevator C Malignant pleural effusion; [place] [address] Other hydronephrosis; [phone] Cancer associat ed pain; History of fall 07/08/2023 Follow-Up Cardiopulmonary MuniraJianci Fall <Initi al> (Primary Dx); 10:00 AM Center - Pulmonology N, BRITT Shortne ss of breath; CDT Medicine Malignant pleural effusion; [address] Hip pain <Right side> Main Bldg, 6th Floor Elevator C [place], [place] [address] 07/08/2023 Hospital Encounter Cardiopulmonary Cookie Sterling Short ness of breath 9:49 AM Center - Pulmonology ABRITT Dischar ge Disposition: Home CDT - Lab 07/08/[address] 12:59 PM Main Bldg, 6th [place] [address] 07/08/2023 Hospital Encounter Cardiopulmonary Cookie Sterling Short ness of breath 9:00 AM Center - Pulmonology A, CONTRACT TECHNICAL WRITER Dischar ge Disposition: Home CDT - Lab 07/08/2023 [address] 9:48 AM Main Bldg, 6th [place] [address] 07/08/2023 Ancillary Procedure X-Ray Outpatient Cookie Sterling Erica rtness of breath 8:00 AM Center Chata, CONTRACT TECHNICAL WRITER CDT [address] [facility], 7th [place] [address] 07/08/2023 Hospital Encounter Diagnostic Laboratory Naya Romano 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, NOS <Female; Right> 6:45 AM [place] BRITT Childs Discharge Disposition: Home CDT - [address] 07/08/2023 Main [facility], Elevator A 8:59 [place] [address] CDT 07/08/2023 Travel 07/07/2023 Refill MD Charles Santoyo, Neoplasm related [facility] - Genitourinary Miguelito, pain ( acute) Oncology MD (chronic) [address] [place] [address] 07/07/2023 Refill MD Charles Martinez, Neoplasm related [facility] - Pain Medicine Sharon Brizuela RN pain (acute) [address] [place] [address] (chronic) [place], [place] [address] 07/07/2023 Orders Only Cardiopulmonary Radha Lombardo [place] - Pulmonology N, CONTRACT TECHNICAL WRITER Medicine [address] [facility] Main dg, 6th [place] [address] 07/03/2023 Education Interventional Blanca, Radiology Eri Randhawa MA [address] [facility], 4th [place] [address] 07/03/2023 Orders Only Clinical Center for Koki Olvera RN Infil trating duct Targeted Therapy and lobular [address] [facility] carcinoma of breast, Main Bldg, 11th Floo r NOS <Female; Right> Elevator C (Primary Dx) [place] [address] 07/03/2023 Orders Only MD Charles Pérez Shed, Vivian E, Hydron ephrosis, not City - Urology PA otherwise specified [address] [facility] (Primary D x) [place] [address] 07/02/2023 Orders Only Clinical Center for Koki Olvera RN Infil trating duct Targeted Therapy and lobular [address] [facility] carcinoma of breast, Main Bldg, 11th Floo r NOS <Female; Right> Elevator C (Primary Dx) [place] [address] 07/02/2023 Orders Only MD Charles Santoyo, Neoplasm related pain (acute) (chronic) (Primary Dx); [facility] - Pain Medicine Miguelito, correction current use of opi ate analgesic; [address] [facility] Metastatic malignant neoplasm [place] [address] 07/02/2023 Orders Only Cardiopulmonary Cookie Sterling Shortness o f breath Center - Pulmonology A, CONTRACT TECHNICAL WRITER (Primar y Dx) Medicine [address] [facility] Main Bldg, 6th [place] [address] 07/02/2023 Orders Only MD Charles Martinez, Neoplasm related [facility] - Pain Medicine Sharon Brizuela RN pain (acute) [address] [facility] (chronic) (Primary South Dx) [place], [place] [address] 07/02/2023 Orders Only Interventional Nancie Monge, Radiology PA [address] [facility], 4th [place] [address] 07/01/2023 Telemedicine MD Charles Pérez Abouharb, Metastati c malignant 3:00 PM [facility] Breast Medical MD pro Armendarizplchata sm to bone CDT Oncology (Primary Dx) [address] [place], [place] [address] 07/01/2023 Orders Only Cardiopulmonary Cookie Sterling Shortness o f breath Center - Pulmonology A, CONTRACT TECHNICAL WRITER (Primar y Dx) Medicine [address] [facility] Main Bldg, 6th [place] [address] 06/30/2023 Documentation Clinical Center for Koki Olvera, VITOR Targeted Therapy [address] Main Bldg, 11th [place] [address] 06/30/2023 Orders Only Clinical Center for Koki Olvera RN Infil trating duct Targeted Therapy and lobular [address] carcinoma of breast, Main Bldg, 11th Floo r NOS <Female; Right> Elevator C (Primary Dx) [place] [address] 06/26/2023 Emergency Acute Cancer Care Sarath Joshi Pleural effusion (Primary Dx); 7:56 PM Center MD Yoselin 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, NOS <Female; Right>; CDT - [address] Star Kraus, Shortness of breath; 06/27/2023 Main Bldg, 1st Floor Florence Finnegan MD Back pain, not otherwise specified 9:31 PM near [facility], Discharge Disposition: [place] [address] MD Nicolette [phone] 06/26/2023 Travel 06/25/2023 Consult Clinical Center for Josh Dewey Acute c ough (Primary Dx); 10:30 AM Targeted Therapy 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, NOS <Female; Right>; CDT [address] Metastatic malignant neoplas m to bone; Main Bldg, 11th Floo r Personal history of malignan t neoplasm of breast; Elevator [place] [address] 06/25/2023 Ancillary Procedure Diagnostic Center Radha Lombardo Pleural effusion 9:[address] BRITT Rinaldi CDT [facility], 2nd Floor [place] [address] 06/25/2023 Hospital Encounter Diagnostic Laboratory Naya Romano 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, NOS <Female; Right> 6:30 AM Center BRITT Childs Discharge Disposition: Home CDT - [address] 06/25/2023 Main Bldg, Elevator A 11:59 [place] [address] CDT 06/25/2023 Travel 06/23/2023 Orders Only Cardiopulmonary Lombardo, Radha Pleural eff usion Center - Pulmonology N, CONTRACT TECHNICAL WRITER (Primar y Dx) Medicine [address] [facility] Main Bldg, 6th [place] [address] 06/20/2023 Orders Only Clinical Center for YoavAuroraannetteBrenda barnett trating duct Targeted Therapy RN and lobular [address] [facility] carcinoma of breast, Main Bldg, 11th Floo r NOS <Female; Right> Elevator C (Primary Dx) [place] [address] 06/19/2023 Orders Only Cardiopulmonary Lombardo, Radha [facility] Pulmonology N, CONTRACT TECHNICAL WRITER Medicine [address] [facility] Main Bldg, 6th [place] [address] 06/18/2023 Telemedicine MD Charles Hornuharb, Metastati c malignant neoplasm to bone (Primary Dx); 3:00 PM [facility] Breast Medical MD Marcello Estrog en receptor positive status (ER+) CDT Oncology [address] [place], [place] [address] 06/16/2023 Orders Only Edis Sepulveda [facility] BRITT Burrell [address] [place] [address] 06/12/2023 Follow-Up Cardiopulmonary Lombardo, Radha Malignant p leural 9:30 AM Center Pulmonology N, CONTRACT TECHNICAL WRITER effusio n (Primary CDT Medicine Dx) [address] [facility] Main Bldg, 6th [place] [address] 06/12/2023 Ancillary Procedure Cardiopulmonary Lombardo, Radha 8:50 AM Center Pulmonology N, CONTRACT TECHNICAL WRITER CDT Procedures [address] [facility] Main Bldg, 6th [place] [address] 06/12/2023 Refill MD Charles Santoyo, Neoplasm related [facility] Pain Medicine Miguelito, pain (acute) [address] [facility] (chronic) [place] [address] 06/12/2023 Refill MD Charles Martinez, Neoplasm related [facility] Genitourinary Sharon Brizuela RN pain (a cute) Oncology (chronic) (Primary [address] [facility] Dx) [place] [address] 06/12/2023 Travel 06/11/2023 Ancillary Procedure MD Charles Lombardo, Radha M alignant pleural 1:45 PM [facility] N, CONTRACT TECHNICAL WRITER effusion CDT [address] [place] [address] 2[address] [place] [address] 06/11/2023 Telemedicine MD Charles Santoyo, Neoplasm related pain (acute) (chronic) (Primary Dx); 1:20 PM [facility] Pain Medicine Miguelito, 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 of 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 analgesic CDT [address] [place], [place] [address] 06/11/2023 Follow-Up MD Charles Schultz, Personal history of malignant neoplasm of breast (Primary Dx); 11:00 AM [facility] Breast Medical MD Marcello Infilt rating duct and lobular carcinoma of breast, NOS <Female; Right>; CDT Oncology Metastatic malignant neoplas m to bone [address] [place], [place] [address] 06/11/2023 Travel 06/05/2023 Anesthesia Event Cardiopulmonary Purugganan, 10:53 AM [facility] Pulmonology MD Jose CDT Procedures Gisel Low Main Bldg, 6th [place] [address] 06/05/2023 Surgery Cardiopulmonary Stephon Alejandro SURGICAL 10:15 AM [facility] Pulmonology MD Kandi THORACO SCOPY WITH CDT - Procedures PLEURODESIS 06/05/2023 Gisel Low (MECHANICAL OR 12:20 PM Main Bldg, 6th Floor CHEMICAL) [place] [address] 06/05/2023 Hospital Encounter MAIN [address] Stephon Alejandro Metastatic malignant neoplas m to bone (Primary Dx) 9:23 AM Gisel Chau MD Discharge Disposition: Home with Home-He alth or Physical Therapy CDT - Vinod Villavicencio 06/07/2023 [place] [address] Dion kendall MD 2:01 PM [phone] Elijah German CDT MD Ramila 06/05/2023 Orders Only [facility]e [address] [facility] [place] [address] 06/05/2023 Travel 06/04/2023 Anesthesia Event Perioperative Leon Amna 11:59 PM Evaluation and BRITT Grady CDT Management Center [address] [place] [address] Main Bldg, 6th [place] [address] 06/04/2023 POEM Appointments Perioperative Abouharb, 4:00 PM Evaluation and MD Marcello CDT Management Center [facility] Main Bldg, 6th [place] [address] 06/04/2023 Orders Only Edis Sepulveda Infiltrat ing duct and lobular carcinoma of breast, NOS <Female; Right> (Primary Dx); [facility] [facility] BRITT Burrell Metast atic malignant neoplasm to bone Oncology [address] [place], [place] [address] 06/03/2023 Ancillary Procedure MD Charles Schultz, Pa tastatic malignant neoplasm to bone; 11:30 AM Clementina Armendariz MD Estrogen receptor positive s tatus (ER+); CDT [address] [facility] Secondary malignant neoplasm of skin [facility] 2nd [place] [address] 06/03/2023 Evaluation MD Charles Schultz, Postmaste ctomy lymphedema syndrome (Primary Dx); 9:30 AM Clementina Armendariz MD Metastatic malignant neoplasm to bone; CDT Therapy Pizano, Estrogen receptor positive s tatus (ER+); [address] [facility] Dayanara Mendoza, PT Secondar y malignant neoplasm of skin [facility] [address] [place], [place] [address] 06/03/2023 Orders Only MD Charles Schultz, Metastati c malignant neoplasm to bone (Primary Dx); [facility] Abhilash Armendariz MD Estrog en receptor positive status (ER+) Oncology [address] [place], [place] [address] 06/03/2023 Travel 06/02/2023 Follow-Up Chuck Brown, Hydrone phrosis, not 1:30 PM [facility] - Urology otherwise specified CDT 2[address] [facility] (Primary D x) [place] [address] 06/02/2023 Office Visit Chuck Brown, ESTUARDOO US ENCOUNTER--DISREGARD (Primary Dx); 1:30 PM [facility] - Urology Hydronephrosis, not otherwis e specified CDT [address] [place] [address] 06/02/2023 Ancillary Procedure Cardiopulmonary Lombardo, Radha 9:45 AM Center - Pulmonology N, CONTRACT TECHNICAL WRITER CDT Procedures [address], 6th [place] [address] 06/02/2023 Follow-Up Cardiopulmonary Lombardo, Radha Malignant p leural 8:00 AM Center - Pulmonology N, CONTRACT TECHNICAL WRITER effusio n CDT Medicine [address], 6th [place] [address] 06/02/2023 Ancillary Procedure Diagnostic Center Stephon Alejandro Malignant pleural 7:15 AM [address] Chau MD effusion [facility] 2nd [place] [address] 06/02/2023 Orders Only Edis Sepulveda APRN 0 [place] [address] 06/02/2023 Prep for Surgery Cardiopulmonary Lombardo, Radha Maligna nt pleural Center - Pulmonology N, CONTRACT TECHNICAL WRITER effusio n (Primary Medicine Dx) [address] Main Bldg, 6th [place] [address] 06/02/2023 Travel 06/02/2023 Telephone Cardiopulmonary Lombadro, Radha Center - Pulmonology N, CONTRACT TECHNICAL WRITER Medicine [address] [facility] [address] Main [address]ldg, 6th [place] [address] 06/01/2023 Refill Parth Roachati c malignant neoplasm to bone; [facility] MD Marcello Estrog en receptor positive status (ER+) Oncology [address] [place], [place] [address] 05/30/2023 Hospital Encounter [facility] 3:09 PM [place] , Genny Chau MD Disposition: Home CDT - [address] 05/30/2023 Main Bldg, Elevator A 11:59 [place] [address] CDT 05/30/2023 Prep for Surgery Cardiopulmonary Lombardo, Radha Maligna nt pleural [place] - Pulmonology N, CONTRACT TECHNICAL WRITER vince n (Primary Medicine Dx) 15[address] [facility] Main Bldg, 6th [place] [address] 05/30/2023 Telephone Cardiopulmonary [place], Follow-up [place] - Pulmonology Bessie Mendoza, RN Medicine 15[address] [facility] Main Bldg, 6th [place] [address] 05/28/2023 Hospital Encounter [facility] Russ, Disch arge 7:19 PM Serge Disposition: [facility] CDT - MD Luke 05/28/2023 11:59 PM CDT 05/28/2023 Infusion Edis Sepulveda Estrogen receptor positive status (ER+) (Primary Dx); 12:30 PM [facility] BRITT Burrell Metastatic malignant neoplas m to bone CDT 2279 [facility] [address]th [place], [place] [address] 05/28/2023 Follow-Up MD Charles Schultz, Estrogen receptor positive status (ER+) (Primary Dx); 11:20 AM [facility] MD Marcello Metast atic malignant neoplasm to bone; CDT Oncology Secondary malignant neoplasm of skin [address] [place] [address] 05/28/2023 Travel 05/27/2023 Ancillary Procedure Me Marley tastatic malignant neoplasm to bone; 11:40 AM Clementina Armendariz MD Estrogen receptor positive s tatus (ER+); CDT 2279 [facility] Secondary malignant neoplasm of skin [address] [address] 05/27/2023 Ancillary Procedure MD Charles Schultz, 9:30 AM Clementina Armendariz MD CDT [address] [address] 05/27/2023 Ancillary Procedure MD Charles Schultz Pa tastatic malignant neoplasm to bone; 7:00 AM Clementina Armendariz MD Estrogen receptor positive s tatus (ER+); CDT [address] [place] [address] Secondary malignant neoplasm of skin [address] [address] 05/21/2023 Surgery Cardiopulmonary Javon, Stephon THORACENTE SIS,NEEDLE 1:30 PM Center - Pulmonology MD Kandi OR CDT - Procedures CATHETER,ASPIRATION 05/21/[address] OF THE RIGHT PLEURAL 2:40 PM Main Bldg, 6th Floor SPACE; WITH IMAGING CDT [place] [address] 05/21/2023 Hospital Encounter Cardiopulmonary Javon, Stephon Pleu ral effusion 12:55 PM Center - Pulmonology MD Kandi Dischar ge Disposition: Home CDT - Procedures 05/21/[address] 2:33 PM Main Bldg, 6th [place] [address] 05/21/2023 Consult Cardiopulmonary Javon, Stephon Secondary and unspecified malignant neoplasm of axilla and upper limb lymph nodes; 10:15 AM Center - Pulmonology MD Sharri Chau nt neoplasm of overlapping sites of right female breast; CDT Medicine Malignant pleural effusion [address] Main Bldg, 6th [place] [address] 05/21/2023 Travel 05/20/2023 Travel 05/08/2023 Refill Carlos Cruz PA Hydron ephrosis, not City - Urology otherwise specified [address] [place] [address] (Primary D x) [place] [address] 05/07/2023 Nutrition Clinical Nutrition [facility], 2:30 PM For your Nutrition MD Marcello CDT appointment location [place], bebe please Soha Pathak RD call: 05/05/2023 Prep for Surgery Cardiopulmonary Mackenney, Pleural effusion Center - Pulmonology BRITT Ceja (Primar y Dx) Medicine [address] [facility] Main Bldg, 6th [place] [address] 05/01/2023 Orders Only Edis Sepulveda Malignant pleural effusion (Primary Dx); [facility] Breast Medical BRITT Burrell 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; Oncology Malignant neoplasm of overla pping sites of right female breast [address] [place] [address] 04/30/2023 Ancillary Procedure Me Marley tastatic malignant neoplasm to bone; 2:00 PM Clementina Armendariz MD Estrogen receptor positive s tatus (ER+); CDT 2[address] [facility] Secondary malignant neoplasm of skin [address] [address] 04/30/2023 Ancillary Procedure Me Marley tastatic malignant neoplasm to bone; 1:45 PM Clementina Armendariz MD Estrogen receptor positive s tatus (ER+); CDT 2[address] [facility] Secondary malignant neoplasm of skin [address] [address] 04/30/2023 Infusion MD Charles Schultz, Estrogen receptor positive status (ER+) (Primary Dx); 11:45 AM Clementina Armendariz MD Metastatic malignant neoplas m to bone CDT 2279 [facility] [address] [place] [address] 04/30/2023 Follow-Up MD Charles Schultz, Secondary malignant neoplasm of skin (Primary Dx); 11:00 AM [facility] Abhilash Armendariz MD Metast atic malignant neoplasm to bone; CDT Oncology Estrogen receptor positive s tatus (ER+) [address] [place] [address] 04/30/2023 Travel 04/26/2023 Refill MD Charles Santoyo, Neoplasm related [facility] Pain Medicine Nydianalmandajanina, pain (acute) [address] [place] [address] (chronic) [place] [address] 04/02/2023 Infusion MD Charles Schultz, Metastati c malignant neoplasm to bone (Primary Dx); 10:30 AM [facility] Infusion MD Marcello Estrogen receptor positive s tatus (ER+) CDT [address] [place] [address] [address] [place] [address] 04/02/2023 Follow-Up Parth Roachati c malignant neoplasm to bone (Primary Dx); 9:40 AM [facility] Breast Medical MD Marcello Estrog en receptor positive status (ER+) CDT Oncology [address] [place] [address] 04/02/2023 Orders Only Edis Sepulveda Metastati c malignant neoplasm to bone (Primary Dx); [facility] BRITT Burrell Estrog en receptor positive status (ER+) Oncology [address] [place] [address] 04/02/2023 Travel 03/12/2023 Telephone Vivian Bravo [facility] Urology PA [address] [place] [address] 03/11/2023 Telephone MD Charles Mackenzie [facility] VITOR Pérez [address] [place] [address] 03/10/2023 Ancillary Procedure Edis Sepulveda Me tastatic malignant neoplasm to bone; 2:00 PM Clementina Burrell APRN Estrogen receptor positive s tatus (ER+) CDT [address] [place] [address] 2[address] [place] [address] 03/10/2023 Travel 03/10/2023 Telephone Chuck Brown, Results (Pt Farthing [facility] - Urology called requesting to [address] [place] [address] leave a me ssage for [facility] the [place] [address] [phone] results. Pt transferred to nurse's line.) 03/07/2023 Mobile Encounter Edis Sepulvedas tatic malignant City - Survivorship [place], CONTRACT TECHNICAL WRITER neoplasm to bone 2[address] [facility] (Primary D x) [place] [address] 03/05/2023 Infusion MD Charles Schultz, Metastati c malignant neoplasm to bone (Primary Dx); 2:00 PM [facility] - Infusion MD Marcello Estrogen receptor positive s tatus (ER+) CDT [address] [place] [address] 4th [place] [address] 03/05/2023 Follow-Up MD Charles Schultz, Metastati c malignant neoplasm to bone (Primary Dx); 1:40 PM [facility] Breast Medical MD Marcello Estrog en receptor positive status (ER+) CDT Oncology [address] [place] [address] 03/05/2023 Follow-Up Devyn Sands current use of opiate analgesic (Primary Dx); 1:00 PM [facility] - Pain Medicine Miguelito, Neoplasm related pain (acute ) (chronic) CDT [address] [place] [address] [place] [address] 03/05/2023 Travel 03/04/2023 Orders Only MD Charles Martinez Neoplasm related City - Breast Surgery Sharon Brizuela RN pain ( acute) Oncolgy (chronic) (Primary 2[address] [facility] Dx) [place] [address] 03/04/2023 Orders Only MD Charles Martinez Neoplasm related City - Breast Surgery Sharon Brizuela RN pain ( acute) Oncolgy (chronic) (Primary 2[address] [facility] Dx) [place] [address] 03/03/2023 Ancillary Procedure MD Charles Schultz, 12:00 PM Clementina Armendariz MD CDT [address] [place] [address] 2nd [place] [address] 03/03/2023 Ancillary Procedure MD Charles Schultz, Pa tastatic malignant neoplasm to bone; 9:30 AM Clementina Armendariz MD Estrogen receptor positive s tatus (ER+) CDT [address] [place] [address] 03/03/2023 Ancillary Procedure MD Charles Schultz, Pa tastatic malignant neoplasm to bone; 8:40 AM Clementina Armendariz MD Estrogen receptor positive s tatus (ER+) CDT [address] [place] [address], [place] [address] 03/03/2023 Travel 02/05/2023 Infusion MD Charles Schultz, Secondary malignant neoplasm of bone (Primary Dx); 2:30 PM Clementina Eugenio Armendariz MD Estrogen receptor positive s tatus (ER+); CDT [address] [place] [address] Metastatic malignant neoplasm to bone [address] [address] 02/05/2023 Follow-Up MD Charles Schultz, Secondary malignant neoplasm of bone (Primary Dx); 2:00 PM [facility] MD Marcello Estrog en receptor positive status (ER+) CDT Oncology [address] [place] [address] 02/05/2023 Travel 01/27/2023 Orders Only MD Charles Schultz, [facility] MD Marcello Oncology [address] [place] [address] 01/24/2023 Telephone Ashley Johnson [facility] P, CONTRACT TECHNICAL WRITER [address] [place] [address] 01/22/2023 Telephone Steph Clark , [facility] 0 [place] [address] 01/08/2023 Infusion MD Charles Schultz, Secondary malignant neoplasm of bone (Primary Dx); 11:45 AM Clementina Eugenio Armendariz MD Estrogen receptor positive s tatus (ER+) SURGICAL RESIDENT [address] [address] 01/08/2023 Follow-Up MD Charles Schultz, Secondary malignant neoplasm of bone (Primary Dx); 9:20 AM Clementina [facility] Abhilash Armendariz MD Estrog en receptor positive status (ER+) SURGICAL RESIDENT Oncology [address] [place] [address] 01/08/2023 Travel 01/02/2023 Orders Only Edis Sepulveda Secondary malignant neoplasm of bone (Primary Dx); Clementina Burrell APRN Estrogen receptor positive s tatus (ER+) [address] [place] [address] 12/19/2022 Infusion MD Charles Schultz, Secondary malignant neoplasm of bone (Primary Dx); 2:45 PM Clementina Armendariz MD Estrogen receptor positive s tatus (ER+) SURGICAL RESIDENT [address] [address] 12/19/2022 Telephone MD Charles Schultz, [facility] MD Marcello [address] [place] [address] 12/19/2022 Travel 12/17/2022 Telephone MD Charles Schultz, Clementina Armendariz MD [address] [place] [address] 12/12/2022 Orders Only MD Charles Schultz, Secondary malignant neoplasm of bone (Primary Dx); Clementina [facility] MD Dorcas Jama en receptor positive status (ER+) Oncology [address] [place] [address] 12/12/2022 Orders Only Edis Sepulveda APRN [address] [place] [address] 12/05/2022 Infusion MD Charles Schultz, Secondary malignant neoplasm of bone (Primary Dx); 2:45 PM Clementina Armendariz MD Estrogen receptor positive s tatus (ER+) SURGICAL RESIDENT [address] [address] 12/05/2022 Travel 12/03/2022 Infusion MD Charles Schultz, Secondary malignant neoplasm of bone (Primary Dx); 1:45 PM Clementina Armendariz MD Estrogen receptor positive s tatus (ER+) SURGICAL RESIDENT [address] [place] [address] 12/03/2022 Follow-Up MD Charles Schultz, Secondary malignant neoplasm of bone (Primary Dx); 9:40 AM Clementina Armendariz MD Estrog en receptor positive status (ER+) SURGICAL RESIDENT Oncology [address] [place] [address] 12/03/2022 Travel 11/28/2022 Telemedicine MD Charles Schultz, Secondary malignant neoplasm of bone (Primary Dx); 3:20 PM Clementina Armendariz MD Estrog en receptor positive status (ER+) SURGICAL RESIDENT Oncology [address] [place] [address] 11/27/2022 Orders Only MD Charles Schultz, Secondary malignant neoplasm of bone (Primary Dx); Clementina [facility] Abhilash Armendariz MD Estrog en receptor positive status (ER+) Oncology [address] [place] [address] 11/21/2022 Documentation Breast [facility] Medical Oncology [address] [facility], 5th [place] [address] 11/19/2022 Orders Only MD Charles Schultz, Secondary malignant neoplasm of bone (Primary Dx); Clementina [facility] Abhilash Armendariz MD Estrog en receptor positive status (ER+) Oncology [address] [place] [address] 11/18/2022 Orders Only Edis Sepulveda [facility] BRITT Burrell [address] [place] [address] 11/15/2022 Orders Only Edis Sepulveda [facility] Abhilash Burrell APRN Oncology [address] [place] [address] 11/15/2022 Refill MD Charles Schultz, Estrogen receptor positive status (ER+); Clementina Armendariz MD Second traci malignant neoplasm of bone Oncology [address] [place] [address] 11/15/2022 Orders Only Clinical Center for Natasha Reich nal history of Targeted Therapy malignant neoplasm [address] of breast (Primary Main Bldg, 11th Floo r Dx) [place] [address] 11/13/2022 Telemedicine MD Charles Schultz, Estrogen receptor positive status (ER+) (Primary Dx); 2:20 PM Clementina Armendariz MD Second traci malignant neoplasm of bone SURGICAL RESIDENT Oncology [address] [place] [address] 11/08/2022 Ancillary Procedure MD Charles Schultz, condary malignant neoplasm of bone; 12:10 PM Clementina Armendariz MD 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 SURGICAL RESIDENT [address] [place] [address] 11/08/2022 Ancillary Procedure MD Charles Schultz, condary malignant neoplasm of bone; 11:30 AM Clementina Armendariz MD 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 SURGICAL RESIDENT [address] [place] [address] 11/08/2022 Ancillary Procedure MD Charles Schultz, 9:00 AM Clementina Armendariz MD SURGICAL RESIDENT [address] [place] [address] 11/08/2022 Telephone Breast Center - [facility] Medical Oncology 12[address] [facility], 5th [place] [address] 11/08/2022 Documentation Breast Center - Jorge AlbertoArcadio dona Medical Oncology 12[address] [facility], 5th [place] [address] 11/08/2022 Travel 10/29/2022 Follow-Up MD Charles Schultz, Secondary malignant neoplasm of bone; 1:00 PM [facility] Abhilash Armendariz MD 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 [facility] Oncology [address] [place] [address] 10/29/2022 Travel 10/25/2022 Telemedicine Devyn Sands m current use of opiate analgesic; 2:20 PM [facility] Pain Medicine Miguelito, Neoplasm related pain (acute ) (chronic); SURGICAL RESIDENT [address] [place] [address] Estrogen r eceptor positive status (ER+); [facility] Secondary malignant neoplasm [place] [address] 10/25/2022 Ancillary Procedure PET Imaging [facility], 9:00 AM [address] Armendariz MD [facility], 6th [place] [address] 10/25/2022 Travel 10/23/2022 Travel 10/08/2022 Infusion MD Charles Schultz, Secondary malignant neoplasm of bone (Primary Dx); 11:30 AM [facility] Eugenio Armendariz MD Estrogen receptor positive s tatus (ER+) [address] [place] [address] 10/08/2022 Follow-Up MD Charles Schultz, Secondary malignant neoplasm of bone; 10:20 AM [facility] MD Verito Jama traci and unspecified malignant neoplasm of axilla and upper limb lymph nodes [facility] Oncology [address] [place] [address] 10/08/2022 Travel 10/08/2022 Orders Only Edis Sepulveda 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); [facility] Medical BRITT Burrell Person al history of malignant neoplasm of breast; Oncology Secondary malignant neoplasm of bone [address] [place] [address] 10/02/2022 Refill MD Charles Schultz, Estrogen receptor positive status (ER+); [facility] Medical MD Verito Armendariz traci malignant neoplasm of bone Oncology [address] [place] [address] after 10/02/2022 Immunizations Name Administration Dates Next Due Moderna SARS-CoV-2 Vaccination 01/03/2021, 12/14/2020 Tdap 05/10/2019 Surgical History Surgery Date Site/Laterality Comments MASTECTOMY 07/27/2013 Bilateral with T YUE proceedure HERNIA REPAIR 08/10/2015 - 09/09/2015 COLONOSCOPY W/ 09/28/2021 Diverticulitis, 1 polyp POLYPECTOMY removed in 2016 and 2020 EGD 09/28/2021 WA CYSTO W/INSERT 02/27/2022 Genitalia/Left Procedure: CYS TOURETHROSCOPY URETERAL STENT WITH INSERTION O F INDWELLING URETERAL STENT; Surgeon: Chuck Thomas MD ; Location: [facility]; Service : UROLOGY WA FLUOROSCOPY UP TO 1 02/27/2022 Left Procedure : PORTABLE HOUR PHYSICIAN/QHP TIME FLOUROSC OPY (C-ARM); Surgeon: Chuck Thomas MD; Location: [facility]; Service: UROLOGY WA CYSTO W/INSERT 07/10/2022 Ureter/Left Procedure: CYS TOURETHROSCOPY URETERAL STENT WITH RETROGRADE PYELOGRAM, LEFT URETERAL ST ENT EXCHANGE Resonance stent; Surgeon: Chuck Thomas MD ; Location: [facility]; Service : UROLOGY WA FLUOROSCOPY UP TO 07/10/2022 Ureter/Left Procedure : PORTABLE HOUR PHYSICIAN/QHP TIME FLOUROSC OPY (C-ARM); Surgeon: Chuck Thomas MD; Location[facility]; Service: UROLOGY WA THORACENTESIS 05/21/2023 Right Procedure: NEEDLE/CATH PLEURA THORACENTESIS ,NEEDLE OR W/IMAGING CATHETER,ASPIRAT ION OF THE RIGHT PLEURAL SP LOR; WITH IMAGING GUIDANCE ; Surgeon: Stephon Alejandro MD; Location: MAIN P ULM PROC; Service: PULMONA RY WA THORACOSCOPY 06/05/2023 Chest/Right Procedure: SURGI HARPAL W/PLEURODESIS THORACOSCOPY WIT H PLEURODESIS ([facility] HANICAL OR CHEMICAL); Surge on: Stephon Alejandro MD; Loc ation: MAIN PULM PROC; Servi ce: PULMONARY WA INSERTION INDWELLING 06/05/2023 Chest/Right Procedur e: INSERTION OF TUNNELED PLEURAL CATHETER INDWEL LING TUNNELED PLEURAL CATHETER WITH CU FF-RIGHT; Surgeon: Stephon Alejandro MD; Location: [place] IN PULM PROC; Service: [facility] 08/25/2023 N/A Procedure: FL EXIBLE ALVEOLAR [...] Relation Name Status Comments Maternal Grandfather Baljinder oM Maternal Uncle Burton Mo Mother Gwen Lane Social History Tobacco Use Types Packs/Day Years Used Date Smoking Tobacco: Never Smokeless Tobacco: Never Alcohol Use Standard Drinks/Week Comments Not Currently 0 (1 standard drink = 0.6 oz pure alcoho l) Education Answer Date Recorded What is the highest level of school Associate degree: [employer] program 08/27/2023 you have completed or the [...] Sign Reading Time Taken Comments Blood Pressure 141/91 09/18/2023 4:00 PM SURGICAL RESIDENT Pulse 99 09/18/2023 4:00 PM SURGICAL RESIDENT Temperature 36.6 C (97.9 F) 09/18/2023 2:12 PM SURGICAL RESIDENT Respiratory Rate 16 09/18/2023 2:12 PM SURGICAL RESIDENT Oxygen Saturation 95% 09/18/2023 2:12 PM SURGICAL RESIDENT Inhaled Oxygen Concentration - - Weight 64.5 kg (142 lb 3.2 oz) 09/18/2023 2:12 PM SURGICAL RESIDENT Height 157.5 cm (5' 2.01") 09/18/2023 2:12 PM SURGICAL RESIDENT Body Mass Index 26 09/18/2023 2:12 PM SURGICAL RESIDENT Plan of Treatment Date Type Department Care Team Description 10/07/2023 Lab MD Charles Paz [facility], 12:00 PM SURGICAL RESIDENT - Diagnostic Laboratory MD Marcello Center [address] [place] [address] 1st Floor [place], [place] [address] 10/07/2023 Follow-Up MD Charles Paz [facility], 1:00 PM SURGICAL RESIDENT - Breast Medical MD Marcello Oncology [address] [place] [address] [place], [place] [phone] 10/16/2023 Ancillary Procedure X-Ray Outpatient Meryl Kim Kumar MD 7:30 AM SURGICAL RESIDENT [address] [facility] [address] [place] [address] 10/16/2023 Appointment Cardiopulmonary Center - Caio Gillespie MD 8:00 AM SURGICAL RESIDENT Pulmonology Lab [address] Main Bldg, 6th Floor [place], [place] Ele[address] [address] [place] [address] 10/16/2023 Appointment Cardiopulmonary Center - Caio Glilespie MD 9:00 AM SURGICAL RESIDENT Pulmonology Lab [address] Main Bldg, 6th Floor [place] Elev[address] [address] [place] [address] 10/16/2023 Follow-Up Cardiopulmonary Center - Radha Lombardo, 2:00 PM SURGICAL RESIDENT Pulmonology Medicine CONTRACT TECHNICAL WRITER [address] Bldg, [address] [place] [address] 2023 Ancillary Procedure X-Ray Outpatient [facility] Tyler Childs 9:30 AM SURGICAL RESIDENT [address] M[place]OR [place], 7th [address] [address] [place], [place] [phone] [address] 2023 Ancillary Procedure X-Ray Outpatient [facility] Magalie, 9:45 AM SURGICAL RESIDENT [address] MEL[place]OR [facility], 7th [address] [place] [address] [place], [place] [phone] 2023 Ancillary Procedure X-Ray Outpatient [facility], 10:15 AM SURGICAL RESIDENT [address] [facility], [address] or [address] [place] [address] [place], [place] [phone] 2023 [facility] Nader Riley MD 10:30 AM SURGICAL RESIDENT [address] [facility] [place] [id number] 12/09/2023 Consult Internal Medicine Center Hiram Horowitz MD 10:30 AM SURGICAL RESIDENT - Rheumatology [address] [facility], [address] [place] [address] [place] [address] [phone] Health Maintenance Due Date Last Done Comments COVID-19 Vaccination (3 - Moderna risk 01/31/2021 , 12/14/2020 series) Medical Devices Implanted Type Area Bathing Suit Maker Device Shelf Model / Identifier Expiration Serial / Date Lot Metal Object Metal Right: Object Arm Description: Pradeep implanted approximately around January 2023 due to broken bone per patient report. Uretheral Stent Stent Description: CLEAR TO SCAN UP TO 3T PER ATTENDING RADIOLOGIST DR. Mejia 07/24/23 Procedures Procedure Name Priority Date/Time Associated Comments Diagnosis .CBC Routine 09/17/2023 1:50 Estrogen receptor Results for PM SURGICAL RESIDENT positive status this procedu re (ER+) are in the results section. 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 MAGNESIUM LEVEL Routine 09/17/2023 1:36 Estrogen receptor Resu lts for PM SURGICAL RESIDENT positive status this procedu re (ER+) are in the results section. PHOSPHORUS LEVEL Routine 09/17/2023 1:36 Estrogen receptor Res ults for PM SURGICAL RESIDENT positive status this procedu re (ER+) are in the results section. 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 CARBOHYDRATE ANTIGEN Routine 09/17/2023 1:36 Estrogen receptor Results for 15-3 PM SURGICAL RESIDENT positive status this procedu re (ER+) are in the results section. POC GLUCOSE SCREEN Routine 09/03/2023 8:27 Result [...] results section. BLOOD CULTURE Routine 08/31/2023 4:28 Results for PM CDT this procedure are in the results section. POC GLUCOSE SCREEN Routine 08/31/2023 2:23 Result [...] W/ AM 08/28/2023 5:30 DIFFERENTIAL AM CDT [facility] Routine 08/27/2023 3:58 [address] duct [...] FUNGAL CULTURE W/ SMEAR Routine 08/25/2023 12:05 Results for PM CDT this procedure are in the results section. LEGIONELLA CULTURE Routine 08/25/2023 12:05 Resul ts for PM CDT this procedure are in the results section. LOWER RESPIRATORY Routine 08/25/2023 12:05 Result s for CULTURE W/ GRAM STAIN PM CDT this p rocedure are in the results section. CELL COUNT W/ DIFF BODY Routine 08/25/2023 12:05 FLUID PM CDT CYTOLOGY NON-ARC WELDER Routine 08/25/2023 11:59 Pulmonary Results for INTERPRETATION [...] section. BLOOD UREA NITROGEN AM 08/04/2023 6:33 Resul ts for AM CDT this procedure [...] section. MAGNESIUM LEVEL AM 08/04/2023 6:33 Results for AM [...] section. TOTAL PROTEIN AM 08/01/2023 6:55 Results for AM CDT [...] to bone Estrogen receptor positive status (ER+) [facility] Routine 07/18/2023 9:39 [address] duct Result s for AM CDT and lobular this procedure carcinoma of are in the breast, NOS results <Female; Right> section. CTRC EKG, 12-LEAD Routine 07/17/2023 Metastatic malignant neoplasm to bone Estrogen receptor positive status (ER+) CTRC EKG, 12-LEAD Routine 07/17/2023 Metastatic malignant neoplasm to bone Estrogen receptor positive status (ER+) CTRC EKG, 12-LEAD Routine 07/17/2023 Metastatic malignant neoplasm [...] TOTAL PROTEIN Routine 06/25/2023 8:44 [address] duct Resul ts for AM CDT [...] procedure are in the results section. CYTOLOGY NON-ARC WELDER Routine 05/21/2023 2:05 Pleural effusion Resu lts [...] of skin URINALYSIS MICROSCOPIC Routine 04/30/2023 1:30 R esults for EXAM PM CDT this procedure are [...] section. ALKALINE PHOSPHATASE Routine 02/05/2023 9:30 Secondary malign ant Results for AM CDT [...] 8:39 Secondary malignant Resul ts for AM SURGICAL RESIDENT neoplasm of bone this procedure Estrogen receptor are in the positive status results (ER+) section. .CBC Routine 01/08/2023 8:39 Secondary malignant Resul ts for AM SURGICAL RESIDENT neoplasm of bone this procedure Estrogen receptor are in the positive status results (ER+) section. FRACTIONATED BILIRUBIN Routine 01/08/2023 8:39 Secondary malig nant Results for AM SURGICAL RESIDENT neoplasm of bone this procedure Estrogen receptor are in the positive status results (ER+) section. TOTAL PROTEIN Routine 01/08/2023 8:39 Secondary malignant Resu lts for AM SURGICAL RESIDENT neoplasm of bone this procedure Estrogen receptor are in the positive status results (ER+) section. ASPARTATE Routine 01/08/2023 8:39 Secondary malignant Resul ts for AMINOTRANSFERASE AM SURGICAL RESIDENT neoplasm of bon e this procedure Estrogen receptor are in the positive status results (ER+) section. ALANINE Routine 01/08/2023 8:39 Secondary malignant Resul ts for AMINOTRANSFERASE AM SURGICAL RESIDENT neoplasm of bon e this procedure Estrogen receptor are in the positive status results (ER+) section. ALKALINE PHOSPHATASE Routine 01/08/2023 8:39 Secondary maligna nt Results for AM SURGICAL RESIDENT neoplasm of bone this procedure Estrogen receptor are in the positive status results (ER+) section. ALBUMIN LEVEL Routine 01/08/2023 8:39 Secondary malignant Resu lts for AM SURGICAL RESIDENT neoplasm of bone this procedure Estrogen receptor are in the positive status results (ER+) section. CALCIUM LEVEL Routine 01/08/2023 8:39 Secondary malignant Resu lts for AM SURGICAL RESIDENT neoplasm of bone this procedure Estrogen receptor are in the positive status results (ER+) section. .GLOMERULAR FILTRATION Routine 01/08/2023 8:39 Secondary malig nant Results for RATE AM SURGICAL RESIDENT neoplasm of bone this procedure Estrogen receptor are in the positive status results (ER+) section. SERUM CREATININE Routine 01/08/2023 8:39 Secondary malignant R esults for AM SURGICAL RESIDENT neoplasm of bone this procedure Estrogen receptor are in the positive status results (ER+) section. ELECTROLYTE PANEL Routine 01/08/2023 8:39 Secondary malignant Results for AM SURGICAL RESIDENT neoplasm of bone this procedure Estrogen receptor are in the positive status results (ER+) section. BLOOD UREA NITROGEN Routine 01/08/2023 8:39 Secondary malignan t Results for AM SURGICAL RESIDENT neoplasm of bone this procedure Estrogen receptor are in the positive status results (ER+) section. GLUCOSE LEVEL Routine 01/08/2023 8:39 Secondary malignant Resu lts for AM SURGICAL RESIDENT neoplasm of bone this procedure Estrogen receptor are in the positive status results (ER+) section. PHOSPHORUS LEVEL Routine 01/08/2023 8:39 Secondary malignant R esults for AM SURGICAL RESIDENT neoplasm of bone this procedure Estrogen receptor are in the positive status results (ER+) section. MAGNESIUM LEVEL Routine 01/08/2023 8:39 Secondary malignant Re sults for AM SURGICAL RESIDENT neoplasm of bone this procedure Estrogen receptor are in the positive status results (ER+) section. CARBOHYDRATE ANTIGEN Routine 01/08/2023 8:39 Secondary maligna nt Results for 15-3 AM SURGICAL RESIDENT neoplasm of bone this procedure Estrogen receptor are in the positive status results (ER+) section. 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 .GLOMERULAR FILTRATION Routine 12/05/2022 10:38 Secondary esther gnant Results for RATE AM SURGICAL RESIDENT neoplasm of bone this procedure Estrogen receptor are in the positive status results (ER+) section. 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 DIFFERENTIAL Routine 12/05/2022 10:38 Secondary malignant Resu lts for AM SURGICAL RESIDENT neoplasm of bone this procedure Estrogen receptor are in the positive status results (ER+) section. .CBC Routine 12/05/2022 10:38 Secondary malignant Resu lts for AM SURGICAL RESIDENT neoplasm of bone this procedure Estrogen receptor are in the positive status results (ER+) section. HEMOGLOBIN A1C Routine 12/05/2022 10:38 Secondary malignant Re sults for AM SURGICAL RESIDENT neoplasm of bone this procedure Estrogen receptor are in the positive status results (ER+) section. LIPASE LEVEL Routine 12/05/2022 10:38 Secondary malignant Resu lts for AM SURGICAL RESIDENT neoplasm of bone this procedure Estrogen receptor are in the positive status results (ER+) section. ASPARTATE Routine 12/05/2022 10:38 Secondary malignant Resu lts for AMINOTRANSFERASE AM SURGICAL RESIDENT neoplasm of bon e this procedure Estrogen receptor are in the positive status results (ER+) section. ALANINE Routine 12/05/2022 10:38 Secondary malignant Resu lts for AMINOTRANSFERASE AM SURGICAL RESIDENT neoplasm of bon e this procedure Estrogen receptor are in the positive status results (ER+) section. ALKALINE PHOSPHATASE Routine 12/05/2022 10:38 Secondary malign ant Results for AM SURGICAL RESIDENT neoplasm of bone this procedure Estrogen receptor are in the positive status results (ER+) section. BILIRUBIN TOTAL Routine 12/05/2022 10:38 Secondary malignant R esults for AM SURGICAL RESIDENT neoplasm of bone this procedure Estrogen receptor are in the positive status results (ER+) section. 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 ALBUMIN LEVEL Routine 12/05/2022 10:38 Secondary malignant Res ults for AM SURGICAL RESIDENT neoplasm of bone this procedure Estrogen receptor are in the positive status results (ER+) section. 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 COMPLETE BLOOD COUNT W/ Routine 12/05/2022 10:38 Secondary mal ignant DIFFERENTIAL AM SURGICAL RESIDENT neoplasm of bone Estrogen receptor positive status (ER+) DIFFERENTIAL Routine 12/03/2022 8:43 Secondary malignant Resul ts for AM SURGICAL RESIDENT neoplasm of bone this procedure Estrogen receptor are in the positive status results (ER+) section. .CBC Routine 12/03/2022 8:43 Secondary malignant Resul ts for AM SURGICAL RESIDENT neoplasm of bone this procedure Estrogen receptor are in the positive status results (ER+) section. FRACTIONATED BILIRUBIN Routine 12/03/2022 8:43 Secondary malig nant Results for AM SURGICAL RESIDENT neoplasm of bone this procedure Estrogen receptor are in the positive status results (ER+) section. TOTAL PROTEIN Routine 12/03/2022 8:43 Secondary malignant Resu lts for AM SURGICAL RESIDENT neoplasm of bone this procedure Estrogen receptor are in the positive status results (ER+) section. ASPARTATE Routine 12/03/2022 8:43 Secondary malignant Resul ts for AMINOTRANSFERASE AM SURGICAL RESIDENT neoplasm of bon e this procedure Estrogen receptor are in the positive status results (ER+) section. ALANINE Routine 12/03/2022 8:43 Secondary malignant Resul ts for AMINOTRANSFERASE AM SURGICAL RESIDENT neoplasm of bon e this procedure Estrogen receptor are in the positive status results (ER+) section. ALKALINE PHOSPHATASE Routine 12/03/2022 8:43 Secondary maligna nt Results for AM SURGICAL RESIDENT neoplasm of bone this procedure Estrogen receptor are in the positive status results (ER+) section. ALBUMIN LEVEL Routine 12/03/2022 8:43 Secondary malignant Resu lts for AM SURGICAL RESIDENT neoplasm of bone this procedure Estrogen receptor are in the positive status results (ER+) section. CALCIUM LEVEL Routine 12/03/2022 8:43 Secondary malignant Resu lts for AM SURGICAL RESIDENT neoplasm of bone this procedure Estrogen receptor are in the positive status results (ER+) section. .GLOMERULAR FILTRATION Routine 12/03/2022 8:43 Secondary malig nant Results for RATE AM SURGICAL RESIDENT neoplasm of bone this procedure Estrogen receptor are in the positive status results (ER+) section. SERUM CREATININE Routine 12/03/2022 8:43 Secondary malignant R esults for AM SURGICAL RESIDENT neoplasm of bone this procedure Estrogen receptor are in the positive status results (ER+) section. ELECTROLYTE PANEL Routine 12/03/2022 8:43 Secondary malignant Results for AM SURGICAL RESIDENT neoplasm of bone this procedure Estrogen receptor are in the positive status results (ER+) section. BLOOD UREA NITROGEN Routine 12/03/2022 8:43 Secondary malignan t Results for AM SURGICAL RESIDENT neoplasm of bone this procedure Estrogen receptor are in the positive status results (ER+) section. GLUCOSE LEVEL Routine 12/03/2022 8:43 Secondary malignant Resu lts for AM SURGICAL RESIDENT neoplasm of bone this procedure Estrogen receptor are in the positive status results (ER+) section. MAGNESIUM LEVEL Routine 12/03/2022 8:43 Secondary malignant Re sults for AM SURGICAL RESIDENT neoplasm of bone this procedure Estrogen receptor are in the positive status results (ER+) section. PHOSPHORUS LEVEL Routine 12/03/2022 8:43 Secondary malignant R esults for AM SURGICAL RESIDENT neoplasm of bone this procedure Estrogen receptor are in the positive status results (ER+) section. COMPREHENSIVE METABOLIC Routine 12/03/2022 8:43 Secondary esther gnant PANEL AM SURGICAL RESIDENT neoplasm of bone Estrogen receptor positive status (ER+) COMPLETE BLOOD COUNT W/ Routine 12/03/2022 8:43 Secondary esther gnant DIFFERENTIAL AM SURGICAL RESIDENT neoplasm of bone Estrogen receptor positive status (ER+) CARBOHYDRATE ANTIGEN Routine 12/03/2022 8:43 Secondary maligna nt Results for 15-3 AM SURGICAL RESIDENT neoplasm of bone this procedure Estrogen receptor are in the positive status results (ER+) section. [facility] Routine 11/15/2022 11:09 Personal history of Res ults for AM SURGICAL RESIDENT malignant neoplasm this proc edure of breast are in the results section. NM BONE SCAN WHOLE BODY Routine 11/08/2022 11:55 Secondary mal ignant Results for AM SURGICAL RESIDENT neoplasm of bone this procedure Secondary and are in the unspecified results malignant neoplasm section. of axilla and upper limb lymph nodes CT CHEST ABDOMEN PELVIS Routine 11/08/2022 10:39 Secondary mal ignant Results for W CONTRAST AM SURGICAL RESIDENT neoplasm of bone this procedure Secondary and are in the unspecified results malignant neoplasm section. of axilla and upper limb lymph nodes PETCT SUBSEQUENT Routine 10/25/2022 11:28 Secondary malignant Results for TREATMENT STRATEGY AM SURGICAL RESIDENT neoplasm of b one this procedure Secondary and are in the unspecified results malignant neoplasm section. of axilla and upper limb lymph nodes DIFFERENTIAL Routine 10/23/2022 12:23 Secondary malignant Resu lts for PM SURGICAL RESIDENT neoplasm of bone this procedure Secondary and are in the unspecified results malignant neoplasm section. of axilla and upper limb lymph nodes .CBC Routine 10/23/2022 12:23 Secondary malignant Resu lts for PM SURGICAL RESIDENT neoplasm of bone this procedure Secondary and are in the unspecified results malignant neoplasm section. of axilla and upper limb lymph nodes FRACTIONATED BILIRUBIN Routine 10/23/2022 12:23 Secondary esther gnant Results for PM SURGICAL RESIDENT neoplasm of bone this procedure Secondary and are in the unspecified results malignant neoplasm section. of axilla and upper limb lymph nodes TOTAL PROTEIN Routine 10/23/2022 12:23 Secondary malignant Res ults for PM SURGICAL RESIDENT neoplasm of bone this procedure Secondary and are in the unspecified results malignant neoplasm section. of axilla and upper limb lymph nodes ASPARTATE Routine 10/23/2022 12:23 Secondary malignant Resu lts for AMINOTRANSFERASE PM SURGICAL RESIDENT neoplasm of bon e this procedure Secondary and are in the unspecified results malignant neoplasm section. of axilla and upper limb lymph nodes ALANINE Routine 10/23/2022 12:23 Secondary malignant Resu lts for AMINOTRANSFERASE PM SURGICAL RESIDENT neoplasm of bon e this procedure Secondary and are in the unspecified results malignant neoplasm section. of axilla and upper limb lymph nodes ALKALINE PHOSPHATASE Routine 10/23/2022 12:23 Secondary malign ant Results for PM SURGICAL RESIDENT neoplasm of bone this procedure Secondary and are in the unspecified results malignant neoplasm section. of axilla and upper limb lymph nodes ALBUMIN LEVEL Routine 10/23/2022 12:23 Secondary malignant Res ults for PM SURGICAL RESIDENT neoplasm of bone this procedure Secondary and are in the unspecified results malignant neoplasm section. of axilla and upper limb lymph nodes CALCIUM LEVEL Routine 10/23/2022 12:23 Secondary malignant Res ults for PM SURGICAL RESIDENT neoplasm of bone this procedure Secondary and are in the unspecified results malignant neoplasm section. of axilla and upper limb lymph nodes .GLOMERULAR FILTRATION Routine 10/23/2022 12:23 Secondary esther gnant Results for RATE PM SURGICAL RESIDENT neoplasm of bone this procedure Secondary and are in the unspecified results malignant neoplasm section. of axilla and upper limb lymph nodes SERUM CREATININE Routine 10/23/2022 12:23 Secondary malignant Results for PM SURGICAL RESIDENT neoplasm of bone this procedure Secondary and are in the unspecified results malignant neoplasm section. of axilla and upper limb lymph nodes ELECTROLYTE PANEL Routine 10/23/2022 12:23 Secondary malignant Results for PM SURGICAL RESIDENT neoplasm of bone this procedure Secondary and are in the unspecified results malignant neoplasm section. of axilla and upper limb lymph nodes BLOOD UREA NITROGEN Routine 10/23/2022 12:23 Secondary maligna nt Results for PM SURGICAL RESIDENT neoplasm of bone this procedure Secondary and are in the unspecified results malignant neoplasm section. of axilla and upper limb lymph nodes GLUCOSE LEVEL Routine 10/23/2022 12:23 Secondary malignant Res ults for PM SURGICAL RESIDENT neoplasm of bone this procedure Secondary and are in the unspecified results malignant neoplasm section. of axilla and upper limb lymph nodes MAGNESIUM LEVEL Routine 10/23/2022 12:23 Secondary malignant R esults for PM SURGICAL RESIDENT neoplasm of bone this procedure Secondary and are in the unspecified results malignant neoplasm section. of axilla and upper limb lymph nodes PHOSPHORUS LEVEL Routine 10/23/2022 12:23 Secondary malignant Results for PM SURGICAL RESIDENT neoplasm of bone this procedure Secondary and are in the unspecified results malignant neoplasm section. of axilla and upper limb lymph nodes CARBOHYDRATE ANTIGEN Routine 10/23/2022 12:23 Secondary malign ant Results for 15-3 PM SURGICAL RESIDENT neoplasm of bone this procedure Secondary and are in the unspecified results malignant neoplasm section. of axilla and upper limb lymph nodes COMPLETE BLOOD COUNT W/ Routine 10/23/2022 12:23 Secondary mal ignant DIFFERENTIAL PM SURGICAL RESIDENT neoplasm of bone Secondary and unspecified malignant neoplasm of axilla and upper limb lymph nodes COMPREHENSIVE METABOLIC Routine 10/23/2022 12:23 Secondary mal ignant PANEL PM SURGICAL RESIDENT neoplasm of bone Secondary and unspecified malignant neoplasm of axilla and upper limb lymph nodes FRACTIONATED BILIRUBIN Routine 10/08/2022 9:41 Secondary malig nant Results for AM SURGICAL RESIDENT neoplasm of bone this procedure Secondary and are in the unspecified results malignant neoplasm section. of axilla and upper limb lymph nodes TOTAL PROTEIN Routine 10/08/2022 9:41 Secondary malignant Resu lts for AM SURGICAL RESIDENT neoplasm of bone this procedure Secondary and are in the unspecified results malignant neoplasm section. of axilla and upper limb lymph nodes ASPARTATE Routine 10/08/2022 9:41 Secondary malignant Resul ts for AMINOTRANSFERASE AM SURGICAL RESIDENT neoplasm of bon e this procedure Secondary and are in the unspecified results malignant neoplasm section. of axilla and upper limb lymph nodes ALANINE Routine 10/08/2022 9:41 Secondary malignant Resul ts for AMINOTRANSFERASE AM SURGICAL RESIDENT neoplasm of bon e this procedure Secondary and are in the unspecified results malignant neoplasm section. of axilla and upper limb lymph nodes ALKALINE PHOSPHATASE Routine 10/08/2022 9:41 Secondary maligna nt Results for AM SURGICAL RESIDENT neoplasm of bone this procedure Secondary and are in the unspecified results malignant neoplasm section. of axilla and upper limb lymph nodes ALBUMIN LEVEL Routine 10/08/2022 9:41 Secondary malignant Resu lts for AM SURGICAL RESIDENT neoplasm of bone this procedure Secondary and are in the unspecified results malignant neoplasm section. of axilla and upper limb lymph nodes CALCIUM LEVEL Routine 10/08/2022 9:41 Secondary malignant Resu lts for AM SURGICAL RESIDENT neoplasm of bone this procedure Secondary and are in the unspecified results malignant neoplasm section. of axilla and upper limb lymph nodes .GLOMERULAR FILTRATION Routine 10/08/2022 9:41 Secondary malig nant Results for RATE AM SURGICAL RESIDENT neoplasm of bone this procedure Secondary and are in the unspecified results malignant neoplasm section. of axilla and upper limb lymph nodes SERUM CREATININE Routine 10/08/2022 9:41 Secondary malignant R esults for AM SURGICAL RESIDENT neoplasm of bone this procedure Secondary and are in the unspecified results malignant neoplasm section. of axilla and upper limb lymph nodes ELECTROLYTE PANEL Routine 10/08/2022 9:41 Secondary malignant Results for AM SURGICAL RESIDENT neoplasm of bone this procedure Secondary and are in the unspecified results malignant neoplasm section. of axilla and upper limb lymph nodes BLOOD UREA NITROGEN Routine 10/08/2022 9:41 Secondary malignan t Results for AM SURGICAL RESIDENT neoplasm of bone this procedure Secondary and are in the unspecified results malignant neoplasm section. of axilla and upper limb lymph nodes GLUCOSE LEVEL Routine 10/08/2022 9:41 Secondary malignant Resu lts for AM SURGICAL RESIDENT neoplasm of bone this procedure Secondary and are in the unspecified results malignant neoplasm section. of axilla and upper limb lymph nodes DIFFERENTIAL Routine 10/08/2022 9:41 Secondary malignant Resul ts for AM SURGICAL RESIDENT neoplasm of bone this procedure Secondary and are in the unspecified results malignant neoplasm section. of axilla and upper limb lymph nodes .CBC Routine 10/08/2022 9:41 Secondary malignant Resul ts for AM SURGICAL RESIDENT neoplasm of bone this procedure Secondary and are in the unspecified results malignant neoplasm section. of axilla and upper limb lymph nodes FREE THYROXINE Routine 10/08/2022 9:41 Secondary and Results f or AM SURGICAL RESIDENT unspecified this procedure malignant neoplasm are in th e of axilla and upper results limb lymph nodes section. Personal history of malignant neoplasm of breast Secondary malignant neoplasm of bone THYROID STIMULATING Routine 10/08/2022 9:41 Secondary and Resu lts for HORMONE AM SURGICAL RESIDENT unspecified this procedure malignant neoplasm are in th e of axilla and upper results limb lymph nodes section. Personal history of malignant neoplasm of breast Secondary malignant neoplasm of bone PHOSPHORUS LEVEL Routine 10/08/2022 9:41 Secondary malignant R esults for AM SURGICAL RESIDENT neoplasm of bone this procedure Secondary and are in the unspecified results malignant neoplasm section. of axilla and upper limb lymph nodes MAGNESIUM LEVEL Routine 10/08/2022 9:41 Secondary malignant Re sults for AM SURGICAL RESIDENT neoplasm of bone this procedure Secondary and are in the unspecified results malignant neoplasm section. of axilla and upper limb lymph nodes CARBOHYDRATE ANTIGEN Routine 10/08/2022 9:41 Secondary maligna nt Results for 15-3 AM SURGICAL RESIDENT neoplasm of bone this procedure Secondary and are in the unspecified results malignant neoplasm section. of axilla and upper limb lymph nodes COMPREHENSIVE METABOLIC Routine 10/08/2022 9:41 Secondary esther gnant PANEL AM SURGICAL RESIDENT neoplasm of bone Secondary and unspecified malignant neoplasm of axilla and upper limb lymph nodes COMPLETE BLOOD COUNT W/ Routine 10/08/2022 9:41 Secondary esther gnant DIFFERENTIAL AM SURGICAL RESIDENT neoplasm of bone Secondary and unspecified malignant neoplasm of axilla and upper limb lymph nodes after 10/02/2022 Results (ABNORMAL) .CBC (09/17/2023 1:50 PM SURGICAL RESIDENT)Only the most recent of43 resultswithin the time period is included. [facility] Method Time Signature White Blood Cell 8.3 4.1 - 09/17/2023 [place] 10.5 K/uL 1:55 PM SURGICAL RESIDENT Red Blood Cell 3.10 (L) 3.99 - 09/17/2023 [place] 5.46 M/uL 1:55 PM SURGICAL RESIDENT Hemoglobin 9.5 (L) 12.2 - 09/17/2023 [place] 15.3 g/dL 1:55 PM SURGICAL RESIDENT Hematocrit 28.8 (L) 36.4 - 09/17/2023 [place] 46.8 % 1:55 PM SURGICAL RESIDENT Mean Cell Volume 93 82 - 99 09/17/2023 [place] fL 1:55 PM SURGICAL RESIDENT Mean Cell 30.6 26.6 - 09/17/2023 [place] Hemoglobin 33.2 pg 1:55 PM SURGICAL RESIDENT Mean Cell 33.0 31.1 - 09/17/2023 [place] Hemoglobin 35.2 g/dL 1:55 PM SURGICAL RESIDENT Concentration RDW-SD 52.2 (H) 37.5 - 09/17/2023 [place] 49.7 fL 1:55 PM SURGICAL RESIDENT Red Cell Diameter 15.5 11.6 - 09/17/2023 [place] Width 15.5 % 1:55 PM SURGICAL RESIDENT Platelet 277 160 - 397 09/17/2023 [place] K/uL 1:55 PM SURGICAL RESIDENT Mean Platelet 9.0 (L) 9.1 - 09/17/2023 [place] Volume 12.6 fL 1:55 PM SURGICAL RESIDENT Neutrophil % 78.0 (H) 43.2 - 09/17/2023 [place] 72.7 % 1:55 PM SURGICAL RESIDENT Lymphocyte % 9.5 (L) 16.8 - 09/17/2023 [place] 46.2 % 1:55 PM SURGICAL RESIDENT Monocyte % 10.3 5.1 - 09/17/2023 [place] 12.5 % 1:55 PM SURGICAL RESIDENT Eosinophil % 0.5 0.4 - 6.3 09/17/2023 [place] % 1:55 PM SURGICAL RESIDENT Basophil % 0.2 0.2 - 1.4 09/17/2023 [place] % 1:55 PM SURGICAL RESIDENT IGRE % 1.5 0.1 - 1.5 09/17/2023 [place] % 1:55 PM SURGICAL RESIDENT Comment: The IGRE% includes Metamyelocyt es, Myelocytes and Promyelocytes. Neutrophil Abs 6.44 1.95 - 7.25 K/uL 09/17/2023 1:55 PM SURGICAL RESIDENT [place] Lymphocyte Abs 0.78 (L) 1.01 - 3.24 K/uL 09/17/2023 1:55 PM SURGICAL RESIDENT [place] Monocyte Abs 0.85 0.24 - 0.85 K/uL 09/17/2023 1:55 PM [facility] Eosinophil Abs 0.04 0.02 - 0.50 K/uL 09/17/2023 1:55 PM SURGICAL RESIDENT [place] Basophil Abs 0.02 0.02 - 0.09 K/uL 09/17/2023 1:55 PM [facility] IG Abs 0.12 0.01 - 0.12 K/uL 09/17/2023 1:55 PM SURGICAL RESIDENT [place] Specimen Anatomical Collection Method / Collection Time Recei chanel Time (Source) Location / Volume Laterality Blood Venipuncture / 09/17/2023 1:50 09/17/2023 1:51 Unknown PM SURGICAL RESIDENT PM SURGICAL RESIDENT Marcello Schultz MD LAB BLOOD ORDERABLES Performing Organization Address City/State/ZIP Code Phon e Number [facility] [place] [address] [place] [address] [facility], [facility] [address] (ABNORMAL) Comprehensive Metabolic Panel (09/17/2023 1:36 PM SURGICAL RESIDENT)Only the most recent of4 resultswithin the time period is included. athologist Signature Bilirubin Total 0.4 <=1.2 mg/dL 09/17/2023 [place] 2:15 PM SURGICAL RESIDENT Comment: Indocyanine Green (ICG) may cause falsel y elevated bilirubin results. Total and direct bilirubin must not be measured from samples containing indocyanine green. False elevation of total bilirubin can be seen in patients with IgG concentration s above 28 g/L. This result was previously suppressed fr om the chart. Bilirubin Direct <0.2 <=0.3 mg/dL 09/17/2023 2:15 PM [facility] Comment: Indocyanine Green (ICG) may cause falsel y elevated bilirubin results. Total and direct bilirubin must not be measured from samples containing indocyanine green. This result was previously suppressed fr om the chart. Bilirubin Indirect 09/17/2023 2:15 PM [facility] Comment: Unable to calculate Indirect Bi lirubin result due to some parameters are outside reportable range eGFR 95 >=60 mL/min/1.73 sq. m 09/17/2023 2:15 P M [facility] Comment: The eGFRcr is calculated with [...] G2 fulfill criteria for CKD. Tot Protein 6.6 6.4 - 8.3 gm/dL 09/17/2023 2:15 PM [facility] Comment: This result was previously supp ressed from the chart. Calcium Level Total 9.9 8.2 - 10.2 mg/dL 09/17/2023 2 :15 PM [facility] Comment: This result was previously supp ressed from the chart. Alkaline Phosphatase 226 (H) 35 - 104 U/L 09/17/2023 2:15 PM [facility] Comment: This result was previously supp ressed from the chart. Albumin Level 3.4 (L) 3.5 - 5.2 gm/dL 09/17/2023 2:15 PM [facility] Comment: This result was previously supp ressed from the chart. AST 24 <=32 U/L 09/17/2023 2:15 PM [facility] Comment: This result was previously supp ressed from the chart. ALT 18 <=33 U/L 09/17/2023 2:15 PM [facility] Comment: This result was previously supp ressed from the chart. Sodium Level 136 136 - 145 mmol/L 09/17/2023 2:15 PM [facility] Comment: This result was previously supp ressed from the chart. Potassium Level 4.5 3.4 - 4.5 mmol/L 09/17/2023 2:15 P M [facility] Comment: This result was previously supp ressed from the chart. Chloride 98 98 - 107 mmol/L 09/17/2023 2:15 PM SURGICAL RESIDENT [facility] Comment: This result was previously supp ressed from the chart. CO2 26 22 - 29 mmol/L 09/17/2023 2:15 PM [facility] Comment: This result was previously supp ressed from the chart. Anion Gap 12 4 - 14 mmol/L 09/17/2023 2:15 PM SURGICAL RESIDENT [facility] Comment: This result was previously supp ressed from the chart. Creatinine 0.73 0.51 - 0.95 mg/dL 09/17/2023 2:15 PM CS T [place] Comment: This result was previously supp ressed from the chart. BUN 13 6 - 23 mg/dL 09/17/2023 2:15 PM [facility] Comment: This result was previously supp ressed from the chart. Glucose Level 106 (H) 70 - 99 mg/dL 09/17/2023 2:15 PM SURGICAL RESIDENT [place] Comment: Effective 06/05/16, the glucose reference intervals have been updated based on [place] [employer] guidelines (Standards of Medical Care [...] Time (Source) Location / Volume Laterality Blood Peripheral blood Venipuncture / 09/17/2023 1:36 2022 1:36 specimen / Unknown Unknown PM SURGICAL RESIDENT PM SURGICAL RESIDENT Marcello Schultz MD LAB BLOOD ORDERABLES Performing Organization Address City/State/ZIP Code Phon e Number [facility] [place] [address] [place] [address] [facility], [facility] [address] (ABNORMAL) CA 15-3 (09/17/2023 1:36 PM SURGICAL RESIDENT)Only the most recent of13 results within the time period is included. P athologist Signature CA 15-3 520.9 (H) <=25.0 U/mL 09/17/2023 [place] 2:35 PM SURGICAL RESIDENT Specimen Anatomical Collection Method / Collection Time Recei chanel Time (Source) Location / Volume Laterality Blood Peripheral blood Venipuncture / 09/17/2023 1:36 2022 1:36 specimen / Unknown Unknown PM SURGICAL RESIDENT PM SURGICAL RESIDENT Narrative [place] - 09/17/2023 2:35 PM SURGICAL RESIDENT Results greater than 2400.0 U/mL may not be reliable due to matrix effect with extended dilution as it exceeds the manu facturer's recommended limit. Caution should be exercised when interpreting such valu es and done in conjunction with clinical context. This test is measured by electr ochemiluminescence immunoassay on Carol Rashmi immunoassay analyzers. Results obtained in different methods are not interchangeable. Marcello Schultz MD LAB BLOOD ORDERABLES Performing Organization Address City/[facility]/ZIP Code [facility] [place], [place] [id number] [place] [address], [facility] [id number] Phosphorus Level (09/17/2023 1:36 PM SURGICAL RESIDENT)Only the most recent of40 resultswithin the time period is included. P athologist Signature Phosphorus Level 2.9 2.5 - 4.5 09/17/2023 [place] mg/dL 2:15 PM SURGICAL RESIDENT Specimen Anatomical Collection Method / Collection Time Recei cahnel Time (Source) Location / Volume Laterality Blood Peripheral blood Venipuncture / 09/17/2023 1:36 2022 1:36 specimen / Unknown Unknown PM SURGICAL RESIDENT PM SURGICAL RESIDENT Marcello Schultz MD LAB BLOOD ORDERABLES Performing Organization Address [facility] [place], [place] [id number] [place] [address], [facility] [id number] Magnesium Level (09/17/2023 1:36 PM SURGICAL RESIDENT)Only the most recent of40 resultswithin the time period is included. P athologist Signature Magnesium Level 2.1 1.6 - 2.6 09/17/2023 [place] mg/dL 2:15 PM SURGICAL RESIDENT Specimen Anatomical Collection Method / Collection Time Recei chanel Time (Source) Location / Volume Laterality Blood Peripheral blood Venipuncture / 09/17/2023 1:36 2022 1:36 specimen / Unknown Unknown PM SURGICAL RESIDENT PM SURGICAL RESIDENT Marcello Schultz MD LAB BLOOD ORDERABLES Performing Organization Address City/[facility] Phon e Number [place], [place] [id number] [place] [address], [facility] [address] POC Glucose Screen - Fingerstick (09/03/2023 8:27 AM CDT)Only the most recent of 15 resultswithin the time period is included. Analysis Performed At Patho logist Time Signature Glucose Screen 77 70 - 99 09/03/2023 DC mg/dL 8:30 AM [facility] POC Sample Capillary 09/03/2023 DC Type 8:30 AM [facility] Specimen Anatomical Collection Method Collection Time Receive d Time (Source) Location / / Volume Laterality Blood 09/03/2023 8:27 AM 3 8:30 CDT AM CDT Narrative [facility] - 3 8:30 AM CDT Capillary blood [...] Organization Address City/State/ZIP Code Phon e Number [facility] Unless otherwise noted, [place], [place] [id number] [place] [address] all lab tests performed by: Division of Pathology and Laboratory Medicine [address] [place] [address] CT Chest with Contrast (09/02/2023 3:27 PM [...] ACTIONABLE ITEMS/RECOMMENDATIONS: See Im pression Aden Muñoz CONTRACT TECHNICAL WRITER IMG CT ORDERABLES US Arm Venous Doppler Right (08/31/2023 7:38 [...] and agree with the final report. Aric ROCHE IMG US ORDERABLES Blood Culture - Peripheral (08/31/2023 4:28 PM CDT)Only the most recent of2 resultswithin the time period is included. Analysis Performed At Patho logist Time Signature Blood Culture No Growth. 09/05/2023 DC 6:01 PM CDT [facility] Specimen Anatomical Collection Method / Collection Time Recei chanel Time (Source) Location / Volume Laterality Blood Peripheral blood Venipuncture / 08/31/2023 4:28 2022 4:38 specimen / Unknown Unknown PM CDT PM CDT Logan Kirkland MD MICROBIOLOGY - GENERAL ORDER ZUHAIR Performing Organization Address City/State/ZIP Code Phon e Number [facility] Unless otherwise noted, [place], [place] [id number] [place] [address] all lab tests performed by: Division of Pathology and Laboratory Medicine [address] [facility] XR Chest 1 View Portable (08/31/2023 9:16 [...] represent pneumonia. ACTIONABLE ITEMS/RECOMMENDATIONS: See im pression. Aric ROCHE IMG DIAGNOSTIC IMAGING ORDER ZUHAIR (ABNORMAL) NT-Pro BNP (In-House) (08/31/2023 7:22 AM CDT)Only the most recent of 3 resultswithin the time period is included. P athologist Signature NT-ProBNP 541 (H) <=125 pg/mL 08/31/2023 DC MD SOTO 12:48 PM CDT [facility] Specimen Anatomical Collection Method / Collection Time Recei chanel Time (Source) Location / Volume Laterality Blood Venipuncture / 08/31/2023 7:22 08/31/2023 7:49 Unknown AM CDT AM CDT Aric ROCHE LAB BLOOD ORDERABLES Performing Organization Address City/State/ZIP Code Phon e Number [facility] Unless otherwise noted, [place], [place] [id number] [place] [address] all lab tests performed by: Division of Pathology and Laboratory Medicine [address] [place] [address] [place] Leg Venous Doppler Right (08/31/2023 12:18 [...] is included. Patholo gist Method Time Signature Ordered Test Added [facility] Test Needed Hemoglobin A1c [facility] Specimen Anatomical Collection Method Collection Time Receive d Time (Source) Location / / Volume Laterality Existing 08/29/2023 11:32 08/29/2023 AM CDT 11:32 AM CDT Nga ROCHE LAB BLOOD ORDERABLES Performing Organization Address City/State/ZIP Code Phon e Number [facility] Unless otherwise noted, [address] all lab tests performed by: Division of Pathology and Laboratory Medicine [address] [place] [address] .Serum Creatinine (08/29/2023 7:12 AM CDT)Only the most recent of39 results within the time period is included. athologist Signature Creatinine 0.57 0.51 - 0.95 [facility] mg/dL [facility] Specimen Anatomical Collection Method Collection Time Receive d Time (Source) Location / / Volume Laterality Blood 08/29/2023 7:12 AM 7:26 CDT AM CDT Tammie Torres APRN LAB BLOOD ORDERABLES Performing Organization Address City/[facility] Phon e Number [facility] Unless otherwise noted, [address] all lab tests performed by: Division of Pathology and Laboratory Medicine [address] [place] [address] Glomerular Filtration Rate (08/29/2023 7:12 AM CDT)Only the most recent of39 resultswithin the time period is included. athologist Signature eGFR 105 >=60 [facility] mL/min/1.73 [facility] sq. m Comment: The eGFRcr is calculated [...] Organization Address City/State/ZIP Code Phon e Number [facility] Unless otherwise noted, [address] all lab tests performed by: Division of Pathology and Laboratory Medicine [address] [place] [address] Fractionated Bilirubin (08/29/2023 7:12 AM CDT)Only the most recent of35 results within the time period is included. athologist Signature Bili Total 0.4 <=1.2 mg/dL [facility] Comment: Indocyanine Green (ICG) may cause falsel y elevated bilirubin results. Total and direct bilirubin must not be measured from samples containing indocyanine green. False elevation of total bilirubin can b e seen in patients with IgG concentrations above 28 g/L. Bili Direct <0.2 <=0.3 mg/dL [facility] Comment: Indocyanine Green (ICG) may cau se falsely elevated bilirubin results. Total and direct bilirubin must not be measure d from samples containing indocyanine green. Bili Indirect See Note 0.0 - 0.9 mg/dL DC MD [facility] Comment: Unable to calculate Indirect Bi lirubin result due to some parameters are outside reportable range Specimen Anatomical Collection Method Collection Time Receive d Time (Source) Location / / Volume Laterality Blood 08/29/2023 7:12 AM 10/20/202 3 7:26 CDT AM CDT Tammie Martinezkaris [place] LAB BLOOD ORDERABLES Performing Organization Address City/State/ZIP Code Phon e Number [facility] Unless otherwise noted, [address] all lab tests performed by: Division of Pathology and Laboratory Medicine [address] [place] [address] (ABNORMAL) Differential (08/29/2023 7:12 AM CDT)Only the most recent of39 resultswithin the time period is included. athologist Signature Neutrophil % 78.4 (H) 43.2 - [facility] 72.7 % [facility] Lymphocyte % 13.1 (L) 16.8 - [facility] 46.2 % [facility] Monocyte % 6.7 5.1 - 12.5 [facility] % [facility] Eosinophil % 0.5 0.4 - 6.3 [facility] % [facility] Basophil % 0.2 0.2 - 1.4 [facility] % [facility] IGRE % 1.1 0.1 - 1.5 [facility] % [facility] Comment: IGRE % count includes Metamyelo cytes, Myelocytes, and Promyelocytes. Neutrophil Abs 4.41 1.95 - 7.25 K/uL [facility] Lymphocyte Abs 0.74 (L) 1.01 - 3.24 K/uL [facility] Monocyte Abs 0.38 0.24 - 0.85 K/uL DC [facility] Eosinophil Abs 0.03 0.02 - 0.50 K/uL DC [facility] Basophil Abs 0.01 (L) 0.02 - 0.09 K/uL DC [facility] IG Abs 0.06 0.01 - 0.12 K/uL DC MD [facility] Specimen Anatomical Collection Method Collection Time Receive d Time (Source) Location / / Volume Laterality Blood 08/29/2023 7:12 AM 3 7:23 CDT AM CDT Tammie Melissa [place] LAB BLOOD ORDERABLES Performing Organization Address City/State/ZIP Code Phon e Number [facility] Unless otherwise noted, [address] all lab tests performed by: Division of Pathology and Laboratory Medicine [facility] [place] BUN (08/29/2023 7:12 AM CDT)Only the most recent of38 resultswithin the time period is included. P athologist Signature BUN 11 6 - 23 [facility] mg/dL [facility] Specimen Anatomical Collection Method Collection Time Receive d Time (Source) Location / / Volume Laterality Blood 08/29/2023 7:12 AM 3 7:26 CDT AM CDT Tammie Torres CONTRACT TECHNICAL WRITER LAB BLOOD ORDERABLES Performing Organization Address City/[facility]/ZIP Code Phon e Number [facility] Unless otherwise noted, [address] all lab tests performed by: Division of Pathology and Laboratory Medicine [address] [place] ALT (08/29/2023 7:12 AM CDT)Only the most recent of36 resultswithin the time period is included. athologist Signature ALT 14 <=33 U/L [facility] Specimen Anatomical Collection Method Collection Time Receive d Time (Source) Location / / Volume Laterality Blood 08/29/2023 7:12 AM 3 7:26 CDT AM CDT Tammiecookie Torres CONTRACT TECHNICAL WRITER LAB BLOOD ORDERABLES Performing Organization Address City/[facility] Phon e Number [facility] Unless otherwise noted, [address] all lab tests performed by: Division of Pathology and Laboratory Medicine [address] [place] Aspartate Aminotransferase (08/29/2023 7:12 AM CDT)Only the most recent of36 resultswithin the time period is included. athologist Signature AST 27 <=32 U/L [facility] Specimen Anatomical Collection Method Collection Time Receive d Time (Source) Location / / Volume Laterality Blood 08/29/2023 7:12 AM 3 7:26 CDT AM CDT Tammiecookie Torres CONTRACT TECHNICAL WRITER LAB BLOOD ORDERABLES Performing Organization Address City/[facility]/ZIP [facility] Phon e Number [facility] Unless otherwise noted, [address] all lab tests performed by: Division of Pathology and Laboratory Medicine [address] [place] Total Protein (08/29/2023 7:12 AM CDT)Only the most recent of35 resultswithin the time period is included. athologist [facility] Total Protein 6.9 6.4 - 8.3 [facility] g/dL [facility] Specimen Anatomical Collection Method Collection Time Receive d Time (Source) Location / / Volume Laterality Blood 08/29/2023 7:12 AM 3 7:26 CDT AM CDT Tammie Michellekaris BHARD[facility]JN LAB BLOOD ORDERABLES Performing Organization Address City/State/ZIP Code Phon e Number [facility] Unless otherwise noted, [address] all lab tests performed by: Division of Pathology and Laboratory Medicine [address] [facility] (ABNORMAL) Alkaline Phosphatase (08/29/2023 7:12 AM CDT)Only the most recent of 36 resultswithin the time period is included. athologist [facility] Alk Phos 162 (H) 35 - 104 [facility] U/L [facility] Specimen Anatomical Collection Method Collection Time Receive d Time (Source) Location / / Volume Laterality Blood 08/29/2023 7:12 AM 3 7:26 CDT AM CDT Tammie Torres CONTRACT TECHNICAL WRITER LAB BLOOD ORDERABLES Performing Organization Address City/[facility] Phon e Number [facility] Unless otherwise noted, [address] all lab tests performed by: Division of Pathology and Laboratory Medicine [address] [place] (ABNORMAL) Hemoglobin A1c (08/29/2023 7:12 AM CDT)Only the most recent of3 resultswithin the time period is included. athologist [facility] A1C 6.1 (H) 4.3 - 5.6 % [facility] Comment: HbA1c values >=6.5% are diagnostic of di abetes mellitus. Diagnosis should be confirmed by repeat testing. Therapeutic Action suggested: >8.0% HbA1 c; Goal of therapy: <7.0% HbA1c Specimen Anatomical Collection Method Collection Time Receive d Time (Source) Location / / Volume Laterality Blood 08/29/2023 7:12 AM 3 CDT 12:07 PM CDT Tammie Brink CONTRACT TECHNICAL WRITER LAB BLOOD ORDERABLES Performing Organization Address City/State/ZIP Code Phon e Number [facility] Unless otherwise noted, [address] all lab tests performed by: Division of Pathology and Laboratory Medicine [address] [place] [address] Glucose Level (08/29/2023 7:12 AM CDT)Only the most recent of35 resultswithin the time period is included. P athologist Signature Glucose Level 90 70 - 99 [facility] mg/dL [facility] Comment: Effective 06/05/16, the glucose reference intervals have been updated based on [place] [employer] guidelines (Standards of Medical Care [...] AM 3 7:26 CDT AM CDT Tammie Martinezkaris [place] LAB BLOOD ORDERABLES Performing Organization Address City/[facility]/ZIP Code Phon e Number [facility] Unless otherwise noted, [address] all lab tests performed by: Division of Pathology and Laboratory Medicine [address] [place], [place] [address] (ABNORMAL) Calcium Level (08/29/2023 7:12 AM CDT)Only the most recent of38 resultswithin the time period is included. P athologist Signature Calcium Lvl 10.3 (H) 8.4 - 10.2 [facility] mg/dL [facility] Specimen Anatomical Collection Method Collection Time Receive d Time (Source) Location / / Volume Laterality Blood 08/29/2023 7:12 AM 3 7:26 CDT AM CDT Tammie Martinezkaris [place] LAB BLOOD ORDERABLES Performing Organization Address City/[facility]/ZIP Code Phon e Number [facility] Unless otherwise noted, [address] all lab tests performed by: Division of Pathology and Laboratory Medicine [address] [place], [place] [address] (ABNORMAL) Albumin Level (08/29/2023 7:12 AM CDT)Only the most recent of36 resultswithin the time period is included. athologist [facility] Albumin Lvl 3.4 (L) 3.5 - 5.2 [facility] gm/dL [facility] Specimen Anatomical Collection Method Collection Time Receive d Time (Source) Location / / Volume Laterality Blood 08/29/2023 7:12 AM 3 7:26 CDT AM CDT Tammie Torres APRN LAB BLOOD ORDERABLES Performing Organization Address City/[facility] Code Phon e Number [facility] Unless otherwise noted, [address] all lab tests performed by: Division of Pathology and Laboratory Medicine [address] [place] [address] (ABNORMAL) Electrolyte Panel (08/29/2023 7:12 AM CDT)Only the most recent of38 resultswithin the time period is included. athologist [facility] Sodium Lvl 141 136 - 145 [facility] mEq/L [facility] Potassium Lvl 4.0 3.5 - 5.1 [facility] mEq/L [facility] Chloride 99 98 - 107 [facility] mEq/L [facility] CO2 30 (H) 22 - 29 [facility] mEq/L [facility] Anion Gap 12 4 - 14 [facility] mEq/L [facility] Specimen Anatomical Collection Method Collection Time Receive d Time (Source) Location / / Volume Laterality Blood 08/29/2023 7:12 AM 3 7:26 CDT AM CDT Tammie Torres APRN LAB BLOOD ORDERABLES Performing Organization Address City/[facility]/ZIP [facility] Phon e Number [facility] CANCER Unless otherwise noted, [address] all lab tests performed by: Division of Pathology and Laboratory Medicine [address] [place] [address] Prepare RBC:[id number], 1 Units (08/28/2023 12:26 PM CDT) athologist [facility] PRBC Product -2 [facility] Comment: Orders on hold due to critical shortage. If transfusion need is critical, page Transfusion Medicine Physician on c all at [phone]. Specimen Anatomical Collection Method Collection Time Receive d Time (Source) Location / / Volume Laterality Blood 08/28/2023 12:26 08/28/2023 PM CDT 12:25 PM CDT Aden Muñoz APRN BLOOD BANK PRODUCT ORDERABLE S Performing Organization Address City/[facility]/ZIP Code Phon e Number [facility] CANCER Unless otherwise noted, [address] all lab tests performed by: Division of Pathology and Laboratory Medicine [address] [place] [address] Clot Expiration Date (08/28/2023 11:24 AM CDT)Only the most recent of3 results within the time period is included. [facility] Time Signature T & S 08/31/2023 [facility] Specimen Anatomical Collection Method Collection Time Receive d Time (Source) Location / / Volume Laterality Blood 08/28/2023 11:24 08/28/2023 AM CDT 12:14 PM CDT Aden Muñoz APRN BLOOD BANK TEST ORDERABLES Performing Organization Address City/[facility]/ZIP [facility] Phon e Number [facility] Unless otherwise noted, [address] all lab tests performed by: Division of Pathology and Laboratory Medicine [address] [place] [address] TMP Interpretation Antibody Screen Negative (08/28/2023 11:24 AM CDT)Only the most recent of3 resultswithin the time period is included. [facility] Time Signature TMP Auto Neg At the [facility] patient plasma shows no evidence of RBC alloantibodi es. Comment: MD Lucie LUJAN [id number] Dictated by: MD Lucie LUJAN [id number] Dictated Date/Time: 08.28.2023 15:09 PM CDT Transcribed Date/Time: 08.28.2023 15:09 PM CDT Electronically Signed By: MD Lucie ESQUIVEL6 on 08.28.2023 15:09 PM Specimen Anatomical Collection Method Collection Time Receive d Time (Source) Location / / Volume Laterality Blood 08/28/2023 11:24 08/28/2023 AM CDT 12:14 PM CDT Aden Muñoz APRN BLOOD BANK TEST ORDERABLES Performing Organization Address City/[facility]/ZIP Code Phon e Number [facility] CANCER Unless otherwise noted, [address] all lab tests performed by: Division of Pathology and Laboratory Medicine [facility]5 [facility] ABORh (08/28/2023 11:24 AM CDT)Only the most recent of3 resultswithin the time period is included. P athologist Signature ABORh. O POS [facility] Specimen Anatomical Collection Method Collection Time Receive d Time (Source) Location / / Volume Laterality Blood 08/28/2023 11:24 08/28/2023 AM CDT 12:14 PM CDT Aden Muñoz APRN BLOOD BANK TEST ORDERABLES Performing Organization Address City/[facility] Phon e Number [facility]ER Unless otherwise noted, [address] all lab tests performed by: Division of Pathology and Laboratory Medicine [address] [place] [address] Antibody Screen (08/28/2023 11:24 AM CDT)Only the most recent of3 resultswithin the time period is included. P athologist Signature ABSC. Negative ABSC [facility] Specimen Anatomical Collection Method Collection Time Receive d Time (Source) Location / / Volume Laterality Blood 08/28/2023 11:24 08/28/2023 AM CDT 12:14 PM CDT Aden Muñoz APRN BLOOD BANK TEST ORDERABLES Performing Organization Address City/[facility]/ZIP [facility] Phon e Number [facility]CER Unless otherwise noted, [address] all lab tests performed by: Division of Pathology and Laboratory Medicine [address] [place] [address] SERVICES (08/27/2023 3:58 PM CDT)Only the most [...] 08/28/2023 8:04 AM CDT FULL RESULT: Examination: [facility] on 08/28/2023 08:04 AM 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 Procedure Note Trevor Soto MD - 08/28/2023For matting of this note might be different from the original. 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 IMPRESSION: Tumor metrics have been completed. I per sonally reviewed these images and agree with the tumor metrics. Lizet Garcia APRN Delmar [facility] ORDERABLES NM Bone Scan Whole Body [...] posterior 11th rib. ACTIONABLE ITEMS/RECOMMENDATIONS: None. Jacob BENJAMIN NM ORDERABLES CT Breast Simulation without Contrast (08/26/2023 10:15 AM CDT) Specimen (Source) Anatomical Location Collection Method / Collectio n Time Received Time / Laterality Volume Narrative Systemgenerated, Documentation - 023 10:33 AM CDT This procedure requires no interpretatio n from the radiologist. Sarahi M Doughtie CONTRACT TECHNICAL WRITER IMG RO CT SIM ORDERABLES EKG, 12-Lead [...] treatment. The patient is currently on Protocol 2021-5with MICHAELLE-222 (CDK2 inhibitor) with Ribociclib and Fulvestrant.[facility]was [facility]. She was [...] Hepatobiliary: A small cyst is seen in [facility] left liver medial segment. A hemangioma is [...] agree with the final report. Jacob Richardson BRITT IMG CT ORDERABLES CT Head without Contrast [...] tion, or hydrocephalus. ACTIONABLE ITEMS/RECOMMENDATIONS: None. Ramsey Gerry CONTRACT TECHNICAL WRITER IMG CT ORDERABLES (ABNORMAL) Urinalysis with Microscopic (08/25/2023 9:08 PM CDT)Only the most recent of3 resultswithin the time period is included. [facility] gist Method Time Signature UA Color Yellow Straw-Yel [facility] UA Appear Hazy (A) Clear [facility] UA Glucose NEG NEG mg/dL [facility] UA Bili NEG NEG [facility] UA Ketones NEG NEG mg/dL [facility] UA Spec Grav 1.012 1.003 - [facility] 1.035 [facility] UA Blood Large (A) NEG [facility] UA pH 6.0 5.0 - 9.0 [facility] UA Protein NEG NEG mg/dL [facility] UA Urobilinogen NEG NEG [facility] UA Nitrite NEG NEG [facility] UA Leuk Est NEG NEG [facility] UA WBC 2 0 - 2 DC MD /[facility] Comment: Some reporting parameters within the Uri nalysis test have changed due to the implementation of new instrumentation in the [facility] [place], allowing greater sensitivity of measurement. Urinalysis results rep orted by the [facility] using existing instrumentation, as well as Urinalysis t esting performed manually or by backup methodology at the [facility] [place] will remain relatively unchanged. New reporting parameters and units will not be reported for all campuses. UA RBC 143 (H) 0 - 2 /HPF [facility] UA Mucous TRACE Not Seen-Trace /HPF [facility] UA Bacteria NOT SEEN NOT SEEN /HPF [facility] UA Squam Epi NOT SEEN None-Occasional /HPF [facility] Specimen Anatomical Collection Method Collection Time Receive d Time (Source) Location / / Volume Laterality Urine 08/25/2023 9:08 PM 3 9:13 CDT PM CDT Ramsey Garrett CONTRACT TECHNICAL WRITER URINE ORDERABLES Performing Organization Address City/State/ZIP Code Phon e Number [facility] CANCER Unless otherwise noted, [address] all lab tests performed by: Division of Pathology and Laboratory Medicine [address] [facility] Urine Culture (08/25/2023 9:08 PM CDT)Only the most recent of4 resultswithin the time period is included. athologist Signature Final Report No growth [facility] Specimen Anatomical Collection Method Collection Time Receive d Time (Source) Location / / Volume Laterality Urine, Clean 08/25/2023 9:08 PM 3 Catch CDT 10:30 PM CDT María Jiang APRN MICROBIOLOGY - GENERAL ORDER ZUHAIR Performing Organization Address City/[facility]/ZIP Code Phon e Number [facility] Unless otherwise noted, [address] all lab tests performed by: Division of Pathology and Laboratory Medicine [address] [facility] Fungitell, Serum (08/25/2023 8:45 PM CDT) athologist [facility] Fungitell S-V <31 <80 pg/mL [facility] Comment: Interpretation: The Fungitell assay does not detect certain fungal species such as the genus Cryptococcus ( Alice et al. 1991) which produces very low levels of (1-3)-Beta-D -Glucan. The assay also does not detect the Zygomycetes such as Absid ia, Mucor and Rhizopus (Dandre et al. 1994) which are not know n to produce (1-3)-Jlxv-L-Zjhnte. In addition, the ye ast phase of [...] stics for these modifications were determined by [employer]. If sample result is greater than 500 pg/ mL, physician may order a titer of the sample. Please contact [employer] if you would like to order a retest of this sample to obtain an actual value. Samples are held for 1 week after initia l testing date. Performed At: [facility] [address] [place] [address], [address] [place] [address] Data Center Project Manager: Dmitri Short, PhD DEJA (ABB) CLIA # [id number] FLAG Interpretation: A = Abnormal, H = H igh, L = Low Specimen Anatomical Collection Method Collection Time Receive d Time (Source) Location / / Volume Laterality Blood 08/25/2023 8:45 PM 3 CDT 12:50 PM CDT Logan Kirkland MD MICROBIOLOGY - GENERAL ORDER ZUHAIR Performing Organization Address City/State/ZIP Code Phon e Number [facility] CANCER Unless otherwise noted, [address] all lab tests performed by: Division of Pathology and Laboratory Medicine [address] [place] [address] [place] (ABNORMAL) CMV Quant PCR (08/25/2023 8:45 PM CDT) athologist Signature CMV DNA PCR <34.5 (H) <=0.0 [facility] IU/mL CAN[facility] CENTER Comment: Normal Range: Target [...] human plasma is performed using the [employer] [employer] System. Amplification of viral DNA is achieved [...] verified by the microbiology laboratory at the [facility]. Results must be interpreted within th e context of all relevant clinical and l aboratory findings. Specimen Anatomical Collection Method Collection Time Receive d Time (Source) Location / / Volume Laterality Blood 08/25/2023 8:45 PM 3 CDT 10:25 PM CDT Logan Kirkland MD MICROBIOLOGY - GENERAL ORDER ZUHAIR Performing Organization Address City/State/ZIP Code Phon e Number [facility] Unless otherwise noted, [place] [address] [place] all lab tests performed by: Division of Pathology and Laboratory Medicine [address] [place] [address] [place] Lactic Acid, Venous (08/25/2023 8:45 PM CDT) P athologist Signature V Lactate 1.2 0.5 - 1.6 [facility] mmol/L [facility] CENTER Specimen Anatomical Collection Method Collection Time Receive d Time (Source) Location / / Volume Laterality Blood 08/25/2023 8:45 PM 3 8:53 CDT PM CDT María Jiang APRN LAB BLOOD ORDERABLES Performing Organization Address City/State/ZIP Code Phon e Number [facility] Unless otherwise noted, [place] [address] CENTER all lab tests performed by: Division of Pathology and Laboratory Medicine [address] [place] X-ray Chest 1 View (08/25/2023 8:31 PM [...] Panel, Send-Out (BAL) (08/25/2023 12:05 PM CDT) [facility] Method Time Signature RVP Specimen BAL DC [facility] RVP Adenovirus Not Detected Not Detected [facility] Comment: Detects Serotypes B and E. Detection o f Serotype C may be limited. If Adenovirus infection is suspected and a Not Detected result is returned the sample should be re-tested for adenovirus using an independent method (e.g. [employer] Adenovirus Quantitative Real-time PCR test). RVP Enterovirus/Rhinovirus Not Detected Not Detected [facility] RVP Bocavirus Not Detected Not Detected [facility] RVP Coronavirus Not Detected Not Detected [facility] Comment: This test does NOT assay for the novel 2 019 Coronavirus out of [place]. This test detects the respiratory Coronaviruses: types 229E, OC43, NL63, and HKU1. RVP Metapneumovirus Not Detected Not Detected [facility] RVP Influenza A Not Detected Not Detected [facility] RVP Influenza A-H0P9-21 Not Detected Not Detected [facility] RVP Influenza B Not Detected Not Detected [facility] RVP Parainfluenza Not Detected Not Detected [facility] RVP Respiratory Syncytial Not Detected Not Detected [facility] Comment: The Respiratory Syncytial Viral assay de tects both types A and B, however it does not distinguish between the two. Target Enriched Multiplex Polymerase Jade in Reaction (TEM-PCR) allows for the detection of multiple pathogens out of a single reaction. This test was developed and its performa nce characteristics determined by [employer]. It has n ot been cleared or approved by the U.S. Food and Drug Administration . Results should be used in conjunction with clinical findings, and should not form the sole basis for a diagnosis or treatment decis ion. TEM-PCR is a licensed technology of [employer]. Performed At: [facility] [address] [place] [address], [address] [place] [address] Data Center Project Manager: Dmitri Short, PhD DEJA (ABB) IA # [id number] FLAG Interpretation: A = Abnormal, H = H igh, L = Low Specimen Anatomical Collection Method Collection Time Receive d Time (Source) Location / / Volume Laterality BAL 08/25/2023 12:05 08/26/2023 1:00 PM CDT PM CDT Kim Gillespie MD MICROBIOLOGY - GENERAL ORDER ZUHAIR Performing Organization Address City/State/ZIP Code Phon e Number [facility]CER Unless otherwise noted, [place] [address] [place] all lab tests performed by: Division of Pathology and Laboratory Medicine [address] [place] COVID-19 (SARS-CoV-2) PCR, Lower Respiratory (08/25/2023 12:05 PM CDT) [facility] gist Method Time Signature COVID19 (SARS Not Detected Not Detected KELECHI NAVARRO CoV-2) [facility] Comment: Testing performed utilizing TEM-PCR (Tar get Enriched Multiplex Polymerase Chain Reaction) technology. Testing laboratory is [facility], [facility] [address], [address] / [place] [address] CLIA ID: [id number]. This test has been validated but FDA's [...] and its performance ch aracteristics determined by [employer]. It has not been cleared or approved by the U.S . Food and Drug Administration. Results should be used in conjunction with clinical findings , and should not form the sole basis for a diagnosis or treatment decision. Testing Performed At: [facility] [address] [place] [address] COVID19 (SARS) Source BAL DC MD ALEX TRAORE [facility] Specimen Anatomical Collection Method Collection Time Receive d Time (Source) Location / / Volume Laterality BAL 08/25/2023 12:05 08/26/2023 1:00 PM CDT PM CDT Kim Gillespie MD MICROBIOLOGY - GENERAL ORDER ZUHAIR Performing Organization Address City/[facility] Phon e Number [facility]ER Unless otherwise noted, [address] all lab tests performed by: Division of Pathology and Laboratory Medicine [facility]5 [facility] Body Fluid Differential (08/25/2023 12:05 PM CDT)Only the most recent of2 resultswithin the time period is included. athologist Signature Tot Cells BF 100 [facility] Neut BF 4 0 - 25 % [facility] Lymph BF 18 % [facility] Comment: This assay has been validated f or body fluids. No reference ranges have been established. Test results should be inte rpreted in context with the patient s clinical condition. Pathologist consul t is available. Histiocyte BF 56 % [facility] Comment: This assay has been validated f or body fluids. No reference ranges have been established. Test results should be inte rpreted in context with the patient s clinical condition. Pathologist consul t is available. Eos BF 1 % [facility] Comment: This assay has been validated f or body fluids. No reference ranges have been established. Test results should be inte rpreted in context with the patient s clinical condition. Pathologist consul t is available. Other Cell BF 21 % [facility] Comment: This assay has been validated [...] AND STOOLS ORDER ZUHAIR Performing Organization Address City/[facility] Phon e Number [facility] Unless otherwise noted, [address] all lab tests performed by: Division of Pathology and Laboratory Medicine [facility]5 [facility] Body Fluid Diff Path Review (08/25/2023 12:05 PM CDT)Only the most recent of2 resultswithin the time period is included. [facility] Method Time Signature Body Fluid NO DIAGNOSTIC DC Diff Interp [facility] Comment: CHERYL BERKOWITZ MD, PhD - [id number] Dictated by: CHERYL BERKOWITZ MD, PhD - [phone] Dictated Date/Time: 08.26.2023 11:39 AM CDT Transcribed Date/Time: 08.26.2023 11:39 AM CDT Electronically Signed By: Ysabel PHILLIP, PhD - [id number] on 08.26.2023 11:39 AM Specimen Anatomical Collection Method Collection Time Receive d Time (Source) Location / / Volume Laterality BAL 08/25/2023 12:05 08/25/2023 4:53 PM CDT PM CDT Kim Gillespie MD BODY FLUIDS AND STOOLS ORDER ZUHAIR Performing Organization Address City/State/ZIP Code Phon e Number [facility] Unless otherwise noted, [place], [place] [id number] [place] [address] all lab tests performed by: Division of Pathology and Laboratory Medicine [facility] [place] Pneumocystis Quant PCR, BAL (08/25/2023 12:05 PM CDT) [facility] Method Time Signature P. jiroveci Not Detected Not Detected KELECHI NAVARRO [facility] copies/mL [facility] Comment: Assay Range: 84 copies/mL to 1.00E+08 co pies/mL The limit of quantitation (LOQ) is 84 co pies/mL. Pneumocystis jiroveci DNA detected below the LOQ will be reported as Detected:<84 copies/mL. This test was developed and its performa nce characteristics determined by [employer]. It has n ot been cleared or approved by the U.S. Food and Drug Administration . Results should be used in conjunction with clinical findings, and should not form the sole basis for a diagnosis or treatment decis ion. Performed At: [facility] [address] [place] [address] Data Center Project Manager: Dmitri Short, PhD DEJA (ASHLEY) CLIA # [id number] FLAG Interpretation: A = Abnormal, H = H igh, L = Low Specimen Anatomical Collection Method Collection Time Receive d Time (Source) Location / / Volume Laterality BAL 08/25/2023 12:05 08/26/2023 1:00 PM CDT PM CDT Kim Gillespie MD MICROBIOLOGY - GENERAL ORDER ZUHAIR Performing Organization Address City/State/ZIP Code Phon e Number [facility]ER Unless otherwise noted, [address] all lab tests performed by: Division of Pathology and Laboratory Medicine [address] [place] [address] CMV Quant PCR, BAL (08/25/2023 12:05 PM CDT) [facility] Method Time Signature CMV Not Detected Not Detected DC MD [facility] IU/mL [facility] Comment: Assay Range: 79 IU/mL to 1.88E+08 IU/mL The limit of quantitation (LOQ) is 79 IU /mL. CMV DNA detected below the LOQ will be reported as Detected:<79 IU/mL. This test was developed and its performa nce characteristics determined by [employer]. It has n ot been cleared or approved by the U.S. Food and Drug Administration . Results should be used in conjunction with clinical findings, and should not form the sole basis for a diagnosis or treatment decis ion. Performed At: [facility] [address] [address] Data Center Project Manager: Dmitri Short, PhD DEJA (ASHLEY) CLIA # [id number] FLAG Interpretation: A = Abnormal, H = H igh, L = Low Specimen Anatomical Collection Method Collection Time Receive d Time (Source) Location / / Volume Laterality BAL 08/25/2023 12:05 08/26/2023 1:00 PM CDT PM CDT Kim Gillespie MD MICROBIOLOGY - GENERAL ORDER ZUHAIR Performing Organization Address City/State/ZIP Code Phon e Number [facility] Unless otherwise noted, [address] all lab tests performed by: Division of Pathology and Laboratory Medicine [address] [place] [address] [place] Aspergillus Antigen, BAL (08/25/2023 12:05 PM CDT) Component Value Ref Test Analysis Performed At [facility] gist Range Method Time Signature Aspergillus 0.09 0.00 - DC MD Antigen Index 0.49 [facility] Aspergillus NEGATIVE; DC Antigen [facility] Antifungal [facility] therapy can CANCER [facility] CENTER circulating galactomannan levels below the detectable range. Aspergillus NEG DC Antigen [facility] Comment: Testing performed by immunoenzy matic methodology which detects Aspergillus galactomannan antigen. Specimen Anatomical Collection Method Collection Time Receive d Time (Source) Location / / Volume Laterality BAL 08/25/2023 12:05 08/25/2023 5:35 PM CDT PM CDT Kim Gillespie MD MICROBIOLOGY - GENERAL ORDER ZUHAIR Performing Organization Address City/State/ZIP Code Phon e Number [facility] Unless otherwise noted, [address] all lab tests performed by: Division of Pathology and Laboratory Medicine [address] [place] [address] [place] (ABNORMAL) Fungal Culture w/ Smear (08/25/2023 12:05 PM CDT) [facility] Method Time Signature Final Report Few Yeast KELECHI NAVARRO [facility] probable oral CANCER [place] (A) [place] Calcofluor No Fungi seen in direct smear KELECHI NAVARRO Stain Test performed by fluorescent stain methodology. CANDOR (A) [facility] Specimen Anatomical Collection Method Collection Time Receive d Time (Source) Location / / Volume Laterality BAL 08/25/2023 12:05 08/25/2023 6:20 PM CDT PM CDT Narrative [facility] - 9:32 AM SURGICAL RESIDENT Cultures are held for 4 weeks before fin alization. Kim Gillespie MD MICROBIOLOGY - GENERAL ORDER ZUHAIR Performing Organization Address City/State/ZIP Code Phon e Number [place] [facility] Unless otherwise noted, [address] all lab tests performed by: Division of Pathology and Laboratory Medicine [address] Lower Respiratory Culture w/ Gram Stain (08/25/2023 12:05 PM CDT) [facility] Method Time Signature Final Report No growth [facility] Gram Stain Many WBC's seen DC MD Report No organisms seen. [facility] Specimen Anatomical Collection Method Collection Time Receive d Time (Source) Location / / Volume Laterality BAL 08/25/2023 12:05 08/25/2023 6:20 PM CDT PM CDT Kim Gillespie MD MICROBIOLOGY - GENERAL ORDER ZUHAIR Performing Organization Address City/State/ZIP Code Phon e Number [facility] Unless otherwise noted, [address] all lab tests performed by: Division of Pathology and Laboratory Medicine [address] Legionella Culture (08/25/2023 12:05 PM CDT) [facility] Method Time Signature Final Report No Legionella [facility] Specimen Anatomical Collection Method Collection Time Receive d Time (Source) Location / / Volume Laterality BAL 08/25/2023 12:05 08/25/2023 6:20 PM CDT PM CDT Kim Gillespie MD MICROBIOLOGY - GENERAL ORDER ZUHAIR Performing Organization Address City/[facility]/ZIP [facility] Phon e Number [facility] Unless otherwise noted, [address] all lab tests performed by: Division of Pathology and Laboratory Medicine [address] Cell Count BF (08/25/2023 12:05 PM CDT)Only the most recent of2 resultswithin the time period is included. athologist Signature Type BF BAL [facility] Comment: RANULFO Appear BF BLOODY [facility] R [place] WBC BF 115 /[facility]L [facility] Comment: This assay has been validated f or body fluids. No reference ranges have been established. Test results should be inte rpreted in context with the patient s clinical condition. Pathologist consul t is available. RBC BF 6,425 /mcL [facility] Comment: This assay has been validated [...] Organization Address City/State/ZIP Code Phon e Number [facility] CANCER Unless otherwise noted, [place] [address] [place] all lab tests performed by: Division of Pathology and Laboratory Medicine [address] [facility] (ABNORMAL) Cytology Non-Store Operations Manager Interpretation (08/25/2023 11:59 AM CDT)Only the most recent of2 resultswithin the time period is included. Component Value Ref Test Analysis Performed Pathologis t Range Method Time At Signature Gross 1 Diff Quik; 1 Pap Stain Slides, 1 GMS, 1 Iron MDA AP Description 10 ml. slightly cloudy pink fluid 3 2: 36 PM LABS Specimen concentrated by cytocentrifugation technique CDT Major Cellular atypia (A) MDA AP Electronically Classification 3 2:36 PM LABS oneyda d by CDT Mateusz Grady MD on 08/27/2023 at 2:36 PM Diagnosis Lung, left upper lobe, bronchoalveolar lavage: MDA AP Electronically 3 2:36 PM LABS signed by Rare atypical cells (see comment) CDT Victorino Grady, No viral changes on GMS stain, positive for grayson al hyphae, morphologically consistent with Brenda spp. (see comment) 3 at GMS stain, negative for Pneumocystis 2:36 PM Iron stain, ~40% macrophages with hemosiderin Comment There are rare MDA AP epithelioid cells 3 2:36 PM LABS with atypia. The CDT paucity of atypical cells precludes further characterization. There are also mature squamous cells noted. Given their presence, oral contamination with fungal organisms can not be excluded. Clinical correlation is recommended. Controls are appropriate. Retained/Biomark SR: 2 S, 2 SP MDA AP er Testing 3 2:36 PM LABS CDT Informational Some tests reported MDA AP Points here may have been 3 2:36 PM LABS developed and CDT performance characteristics determined by [facility] Pathology and Laboratory Medicine. These tests have not been specifically cleared or approved by the U.S. Food and Drug Administration. Specimen Anatomical Collection Method Collection Time Receive d Time (Source) Location / / Volume Laterality Specimen 08/25/2023 11:59 08/25/2023 2:23 obtained by AM CDT PM CDT lavage (specimen) (Lung, Left Upper Lobe) Kim Gillespie MD LAB CYTOLOGY ORDERABLES Performing Organization Address City/[facility] Phon e Number [facility] [place] [address], [address] Vancomycin Trough (08/25/2023 7:48 AM CDT) athologist Signature Vanco Trough 11.5 5.0 - 20.0 [facility] mcg/mL [facility] Comment: Toxic Trough Level: >20 mcg/mL Vanco Tr Dose Time See Note DC MD PINA RILEY [facility] Comment: Level, date, and time of previous dose i s not available for this sample. The date reported is e sample collection date. Vanco Tr Dose Date 08/25/2023 DC MD RADHA ROSE [facility] Comment: Level, date, and time of previous dose i s not available for this sample. The date reported is e sample collection date. Specimen Anatomical Collection Method Collection Time Receive d Time (Source) Location / / Volume Laterality Blood 08/25/2023 7:48 AM 8:36 CDT AM CDT Aubrie Henderson MD LAB BLOOD ORDERABLES Performing Organization Address [facility] Phon e Number [facility] Unless otherwise noted, [address] all lab tests performed by: Division of Pathology and Laboratory Medicine [address] Streptococcus pneumoniae Antigen, Urine (08/24/2023 6:50 PM CDT) Component Value Ref Test Analysis [facility]formed [facility] gist Range Method Time Signature Streptococcal Presumptive negative for S. pneumoniae antigen in the urine, suggesting no current or recent pneumococcal infection. However, infection due to S. pneumoniae cannot be completely ruled out since the [place] Urine Antigen l of antigen present in the urine may be below the CANDOR Interpretation detection limit of the test. CANCER CENTER Streptococcal Negative [facility] Urine Antigen [facility] Comment: Testing is performed using an immunochro [...] / Volume Laterality Urine 08/24/2023 6:50 PM 3 8:16 CDT PM CDT Sandra Huynh MD MICROBIOLOGY - GENERAL ORDER ZUHAIR Performing Organization Address [facility] Phon e Number [facility]ER Unless otherwise noted, [address] all lab tests performed by: Division of Pathology and Laboratory Medicine [address] [place] [address] Legionella Antigen, Urine (08/24/2023 6:50 PM CDT) Component Value Ref Test Analysis Performed At [facility] Method Time Signature Legionella Urine Negative for L. pneumophila serogroup 1 antigen, suggesting no recent or current infection. However, infections due to other serogroups and species of Legionella are not detected by this assay. In addition, antigen may not be present in the urine in [facility] early infection and the leve l of antigen present in the urine may be below the detection limit of the test. AN [facility] CANCER [place] Legionella Urine Negative [facility] Comment: Testing is performed using an immunochro [...] / Volume Laterality Urine 08/24/2023 6:50 PM 3 8:16 CDT PM CDT Sandra Huynh MD MICROBIOLOGY - GENERAL ORDER ZUHAIR Performing Organization Address [facility] Phon e Number [facility] CANCER Unless otherwise noted, [address] all lab tests performed by: Division of Pathology and Laboratory Medicine [address] [place] [address] Respiratory Multiplex PCR Panel, Nasopharyngeal Swab (08/24/2023 3:04 PM CDT) Only the most recent of2 resultswithin the time period is included. [facility] Method Time Signature Adenovirus Not Not [place] MD Detected Detected [facility] Coronavirus 229E Not Not [facility] MD Detected Detected [facility] Coronavirus HKU1 Not Not [facility] MD Detected Detected [facility] Coronavirus NL63 Not Not [facility] MD Detected Detected [facility] Coronavirus OC43 Not Not [facility] MD Detected Detected [facility] COVID19 Not Not [facility] MD (SARS-CoV-2) Detected Detected [facility] Human Not Not [facility] MD Metapneumovirus Detected Detected [facility] Human Not Not [facility] MD Rhinovirus/Enterov Detected Detected [facility] Influenza A Not Not [facility] MD Detected Detected [facility] Influenza A H1 Not Not [facility] MD Detected Detected [facility] Influenza A H1 Not Not [place] MD 2009 Detected Detected [facility] Influenza A H3 Not Not [place] MD Detected Detected [facility] Influenza B Not Not [place] MD Detected Detected [facility] Parainfluenza 1 Not Not [place] MD Detected Detected [facility] Parainfluenza 2 Not Not [place] MD Detected Detected [facility] Parainfluenza 3 Not Not [place] MD Detected Detected [facility] Parainfluenza 4 Not Not [place] MD Detected Detected [facility] Respiratory Not Not [place] MD Syncytial Virus Detected Detected [facility] Bordetella Not Not [facility] MD Parapertussis Detected Detected [facility] Bordetella Not Not [place] MD pertussis Detected Detected [facility] Chlamydiophila Not Not [place] MD pneumoniae Detected Detected [facility] Mycoplasma Not Not [place] MD pneumoniae Detected Detected [facility] Specimen (Source) Anatomical Collection Method Collection Time Re ceived Time Location / / Volume Laterality Nasopharyngeal Swab 08/24/2023 3:04 08/24 PM CDT 3:11 PM CDT Narrative [facility] - 4:40 PM CDT Has patient had a positive for COVID-19 result in the last 3 months?->No The BioFire RP2.1 is a real-time, nested multiplexed polymerase chain reaction test designed to simultaneously identify nucleic acids from 22 different viruses and bacteria associated with respiratory tract infect ion, including SARS-CoV-2, from a single nasopharyngeal swab (FOAMING MACHINE OPERATOR) specimen obtained from individuals suspected [...] that may not be detected by an FOAMING MACHINE OPERATOR specimen. Internal controls are used [...] and high-complexity tests. [facility], CLIA Accreditation #[id number] and CAP Accreditation #[id number], verified the per formance characteristics of this assay. [facility] performs the assay using the [employer] [place] System. Sandra Huynh MD MICROBIOLOGY - GENERAL ORDER ZUHAIR Performing Organization Address City/[facility] Code Phon e Number [facility] Unless otherwise noted, [address] all lab tests performed by: Division of Pathology and Laboratory Medicine [facility] MRSA Screening Culture (08/24/2023 3:04 PM CDT) Component Value Ref Test Analysis Performed At [facility] gist Range Method Time Signature Final Report No Methicillin [facility] Staphylococcus CANCER aureus isolated. CENTER Specimen Anatomical Collection Method Collection Time Receive d Time (Source) Location / / Volume Laterality Nasal 08/24/2023 3:04 PM 3 4:04 CDT PM CDT Narrative [facility] - 3 1:18 PM CDT Testing is performed using PBP2a antigen detection and cefoxitin screening on isolated S. aureus colonies. This method ology may not detect uncommon mechanisms of methicillin-resistance in S. aureus. Sandra Huynh MD MICROBIOLOGY - GENERAL ORDER ZUHAIR Performing Organization Address City/[facility]/ZIP [facility] Phon e Number [facility] Unless otherwise noted, [address] all lab tests performed by: Division of Pathology and Laboratory Medicine [address] (ABNORMAL) Urinalysis Microscopic Exam (08/24/2023 11:24 AM CDT)Only the most recent of4 resultswithin the time period is included. P athologist Signature UA WBC 1 0 - 2 /HPF [facility] Comment: Some reporting parameters within the Uri nalysis test have changed due to the implementation of new instrumentation in the [facility], allowing greater sensitivity of measurement. Urinalysis results rep orted by the [facility] using existing instrumentation, as well as Urinalysis t esting performed manually or by backup methodology at the [facility] will remain relatively unchanged. New reporting parameters and units will not be reported for all campuses. UA RBC 4 (H) 0 - 2 /HPF [facility]ENTER UA Mucous NOT SEEN Not Seen-Trace /HPF DC MD GARCIA [facility] UA Bacteria OCC (A) NOT SEEN /HPF [facility] UA Squam Epi OCC None-Occasional /HPF [facility] Specimen Anatomical Collection Method Collection Time Receive d Time (Source) Location / / Volume Laterality Urine 08/24/2023 11:24 08/24/2023 AM CDT 11:34 AM CDT Bolz-R-OfanwCarleen ROCHE LAB BLOOD ORDERABLES Performing Organization Address City/State/ZIP Code Phon e Number [facility] CANCER Unless otherwise noted, [address] all lab tests performed by: Division of Pathology and Laboratory Medicine [address] [place] [address] (ABNORMAL) Urinalysis w/Microscopic if Indicated (08/24/2023 11:24 AM CDT)Only the most recent of4 resultswithin the time period is included. Patholo gist Method Time Signature UA Color Straw Straw-Yel [facility] UA Appear Clear Clear [facility] UA Glucose NEG NEG mg/dL [facility] UA Bili NEG NEG [facility] UA Ketones NEG NEG mg/dL [facility] UA Spec Grav 1.004 1.003 - [facility] 1.035 [facility] UA Blood Large (A) NEG [facility] UA pH 6.0 5.0 - 9.0 [facility] UA Protein NEG NEG mg/dL [facility] UA Urobilinogen NEG NEG [facility] UA Nitrite NEG NEG [facility] UA Leuk Est NEG NEG [facility] Specimen Anatomical Collection Method Collection Time Receive d Time (Source) Location / / Volume Laterality Urine 08/24/2023 11:24 08/24/2023 AM CDT 11:34 AM CDT Kinga ROCHE URINE ORDERABLES Performing Organization Address City/State/ZIP Code Phon e Number [facility] CANCER Unless otherwise noted, [address] all lab tests performed by: Division of Pathology and Laboratory Medicine [facility] aPTT (08/23/2023 4:32 PM CDT)Only the most recent of5 resultswithin the time period is included. P athologist Signature aPTT 25.1 24.1 - 35.5 [facility] Specimen Anatomical Collection Method Collection Time Receive d Time (Source) Location / / Volume Laterality Blood 08/23/2023 4:32 PM 3 4:39 CDT PM CDT Aubrie Henderson MD LAB BLOOD ORDERABLES Performing Organization Address City/State/ZIP Code Phon e Number [facility] CANCER Unless otherwise noted, [address] all lab tests performed by: Division of Pathology and Laboratory Medicine [facility] Pro[facility]rombin Time with INR (08/23/2023 4:32 PM CDT)Only the most recent of7 resultswithin the time period is included. P athologist Signature PT 12.8 11.9 - 14.5 [facility] INR 0.96 0.87 - 1.12 [facility] Specimen Anatomical Collection Method Collection Time Receive d Time (Source) Location / / Volume Laterality Blood 08/23/2023 4:32 PM 3 4:39 CDT PM CDT Aubrie Henderson MD LAB BLOOD ORDERABLES Performing Organization Address City/State/ZIP Code Phon e Number [facility] CANCER Unless otherwise noted, [address] all lab tests performed by: Division of Pathology and Laboratory Medicine [facility] Chest Pulmonary Embolism with Contrast (08/23/2023 [...] Clean Dev Yes POC TELCOR Performing Lab [facility] POC TELCO R Comment: [facility], [address] [place] [address], [place] [address]; Lab Direct or: Genny De Leon MD; Waived Point of Care Testing - Estefania Olivo MD Specimen Anatomical Collection Method Collection Time Receive d Time (Source) Location / / Volume Laterality Blood 08/23/2023 12:33 08/23/2023 PM CDT 12:33 PM CDT Aubrie Henderson MD POINT OF CARE TEST ORDERABLE S Performing Organization Address City/State/ZIP Code Phon e Number POC TELCOR Unless otherwise noted, [place] [address] lab tests performed by: Division of Pathology and Laboratory Medicine [address] [place] [address] Cardiac Panel (08/23/2023 11:53 AM CDT) P athologist Signature CK 40 26 - 192 [facility] U/L [facility]ER CENTER CK MB <2.0 <=5.3 ng/mL [facility] [place] Troponin T 10 <=19 ng/L [facility] Comment: < 19 ng/L Suggest retest [...] Organization Address City/State/ZIP Code Phon e Number [facility] CANCER Unless otherwise noted, [place] [address] [place] all lab tests performed by: Division of Pathology and Laboratory Medicine [address] X-ray Chest (PA & LAT) (08/22/2023 4:31 [...] or pulmonary edema. ACTIONABLE ITEMS/RECOMMENDATIONS: None. Juan Ardon APRN [facility] DIAGNOSTIC IMAGING ORDER ZUHAIR XR Hip 2 [...] partially imaged abdomen and pelvis. Procedure Note Buster Guidry MD - 08/22/2023 FULL RESULT: Examination: XR [...] time period is included. P athologist Signature Uric Acid 5.2 2.4 - 5.7 [place] MD SOTO mg/dL CANCER CENTER Specimen Anatomical Collection Method Collection Time Receive d Time (Source) Location / / Volume Laterality Blood 08/22/2023 12:33 08/22/2023 PM CDT 12:46 PM CDT Lizet Kinahan CONTRACT TECHNICAL WRITER LAB BLOOD ORDERABLES Performing Organization Address City/[facility]/ZIP Code Phon e Number [facility] CANCER Unless otherwise noted, [address] all lab tests performed by: Division of Pathology and Laboratory Medicine [address] [facility] (ABNORMAL) LDH (08/22/2023 12:33 PM CDT)Only the most recent of2 resultswithin the time period is included. athologist Signature LDH 317 (H) 135 - 214 [facility]L [facility] Comment: Results greater than 1651 U/L [...] PM CDT 12:43 PM CDT Lizet Garcia BRITT LAB BLOOD ORDERABLES Performing Organization Address City/[facility]/ZIP Code Phon e Number [facility] Unless otherwise noted, [address] all lab tests performed by: Division of Pathology and Laboratory Medicine [address] [facility] Echocardiogram 2D Complete with Contrast (08/14/2023 12:16 [...] ESV(MOD-A2C): 22.9 ml EF(MOD-A4C): 65.3 % EF(MOD-A2C): 68. 4 % LAV(MOD-A2C): 31.0 ml EDV(MOD-bp): 74.6 ml LAV(MOD-A4C): 25.5 ml ESV(MOD-bp): 24.6 ml LAV(MOD-bp): 28 .6 ml EF(MOD-bp): 67.1 % LAV(MOD-bp) Indexed: 17.1 ml/m2 EDV (MOD-bp) Index: 44.6 ml/m2 ESV ( MOD-bp) Index: 14.7 ml/m2 RWT: 0.44 cm TAPSE (>1.6): 2.9 cm Doppler Measurements MV E max win: 70.4 cm/sec MV V2 max: 91.7 cm/sec MV A max win: 62.7 cm/sec MV max PG : 3.4 mmHg MV E/A: 1.1 MV V2 mean: 51.6 cm/sec MV mean P.3 mmHg MV V2 VTI: 21.3 cm MVA(VTI): 4.5 cm2 MV dec time: 0.18 sec Ao V2 max: 187 .1 cm/sec Ao max P.0 mmHg Ao V2 mean: 114.6 cm/sec Ao mean P.2 mmHg Ao V2 VTI: 29.2 cm DENNYS(I,D): 3.3 cm2 DENNYS(V,D): 2.8 cm2 LV V1 max P.8 mmHg SV(LVOT): 94. 9 ml LV V1 mean P.8 mmHg LV V1 max: 139.7 cm/sec LV V1 mean: 90.2 cm/sec LV V1 VTI: 25.5 cm RAP systole: 3.0 mmHg DENNYS Index (I,D ): 1.9 DENNYS Index (V,D): 1.7 Dimensionless I ndex: 0.75 Vianca Campos APRN CV ECHO ORDERABLES Performing Organization Address City/State/ZIP Code Phon e Number [facility] EKG, 12-Lead (08/14/2023)Only the most recent of4 resultswithin the time period is included. Specimen (Source) Anatomical Location Collection Method / Collectio n Time Received Time / Laterality Volume Narrative This result has an attachment that is no t available. Vicenta Li MD PhD ECG ORDERABLES Performing Organization Address City/State/ZIP Code Phon e Number [facility] IECG (ABNORMAL) CEA (08/11/2023 1:31 PM CDT)Only the most recent of2 resultswithin the time period is included. P athologist Signature CEA 14.7 (H) <=3.8 ng/mL [facility] [place] Comment: Reference Ranges: Smoker: 0.0 - 5.5 [...] Organization Address City/State/ZIP Code Phon e Number [facility] CANCER Unless otherwise noted, [place], [place] [id number] [place] [address] all lab tests performed by: Division of Pathology and Laboratory Medicine [address] [facility] MRI CERVICAL THORACIC LUMBAR SPINE W WO [...] the patient has b een on protocol [id number] since 07/17/2023; current admission for management of [...] is no signifi cant change since 07/11/2023. Community Service Manager examples of bone lesions are provided. In [...] interpretation, the patient has been on protocol [id number] since 07/17/2023; current admission for management of [...] is no signifi cant change since 07/11/2023. Community Service Manager examples of bone lesions are provided. In [...] l epidural extension of disease. Tammie Torres APRN IMG CT ORDERABLES X-ray Femur 2 Views [...] lymph nodes and bone; presentation to the [facility] with hip pain and abnormal MRI. [...] lymph nodes and bone; presentation to the [facility] with hip pain and abnormal [...] ACTIONABLE ITEMS/RECOMMENDATIONS: See Im pression Lizet Garcia CONTRACT TECHNICAL WRITER IMG MRI ORDERABLES IR CT GUIDED BIOPSY BONE DEEP PELVIC (07/15/2023 3:45 PM CDT) Anatomical Region Laterality Modality Bone Computed Tomography Specimen (Source) Anatomical Location Collection Method / Collectio n Time Received Time / Laterality Volume Narrative 07/17/2023 2:05 PM CDT Table formatting from the original result was not included. 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 Alirezanamratachata Yosth Juan Antonio DE LA TORRE [facility] IR ORDERABLES Pathology Biopsy Interpretation (07/15/2023 3:08 PM CDT) Component Value Ref Test Analysis Performed Pathologis t Range Method Time At Signature Submitted Infiltrating duct and 07/18/2023 [facility] AP LABS Clinical lobular carcinoma of 2:55 PM History breast, NOS <Female; CDT Right> [C50.911] Diagnosis A: Left iliac bone lesion, core biopsy: 07/18/2023 [facility] Electronically METASTATIC BREAST CARCINOMA INVOLVING BONE (SEE COMMENT) 2:55 PM signed by CIRO Neal MD on [facility] 07/18/2023 a t 2:55 PM Comment Very few tumor cells 07/18/2023 [facility] are seen in the 2:55 PM fibrotic bone marrow. CDT Immunohistochemical studies show that the tumor cells are positive for -cytokeratin cocktail and GATA3. Gross A: 07/18/2023 [facility] Description Bone, left iliac bone lesion biopsy: 4 flores-brown bone cores ranging from 0.5 cm - 1.3 cm in length and up to 0.3 cm in diameter, entirely submitted in A1 for decalcification. ET 2:55 PM CDT Biomarker A1 (possibly 07/18/2023 [facility] Block(s) insufficient) 2:55 PM CDT Disclaimer "Some tests reported 07/18/2023 [facility] here may have been 2:55 PM developed and CDT performance characteristics determined by [facility] Pathology and Laboratory Medicine. These tests have [...] Code Phon e Number MDA AP LABS [facility] [place] [address], [place] [address] Chest Abdomen Pelvis with Contrast (07/11/2023 [...] attachment that is no t available. Naya Romano APRN ECG ORDERABLES Performing Organization Address City/State/ZIP Code [...] 11:03 AM CDT) Analysis Performed At Patho logist Time Signature FVC (L) pre 1.381 (L) [...] AM 9:40 CDT AM CDT Naya Romano APRN LAB BLOOD ORDERABLES Performing Organization Address City/State/ZIP Code Phon e Number DC [facility] Unless otherwise noted, [place], [place] [address] CENTER all lab tests performed by: Division of Pathology and Laboratory Medicine [address] [place] [address] (ABNORMAL) D Dimer (06/27/2023 10:48 AM CDT) athologist Signature D-Dimer 4.18 (H) 0.10 - 0.50 DC MD [facility] mcg/ml U [facility] Comment: The cut off value for exclusion of venou s thromboembolism is <0.51 mcg/mL FEUs (fibrinogen equival ent units). Specimen Anatomical Collection Method Collection Time Receive d Time (Source) Location / / Volume Laterality Blood 06/27/2023 10:48 06/27/2023 AM CDT 11:01 AM CDT Sarath Joshi MD LAB BLOOD ORDERABLES Performing Organization Address City/State/ZIP Code Phon e Number [facility] Unless otherwise noted, [place] [address] [place] all lab tests performed by: Division of Pathology and Laboratory Medicine [address] [place] [address] [place] Arm Venous Doppler Bilateral (06/27/2023 8:08 [...] None p er institution-designated actionable items. Celina SÁNCHEZ US ORDERABLES Troponin T (In-House) (06/26/2023 3:54 PM CDT) athologist Signature Troponin T 7 <=19 ng/L [facility] Comment: < 19 ng/L Suggest [...] / Volume Laterality Blood 06/26/2023 3:54 PM 4:14 CDT PM CDT Trinidad Springer MD LAB BLOOD ORDERABLES Performing Organization Address City/State/ZIP Code Phon e Number [facility] Unless otherwise noted, [place] [address] [place] all lab tests performed by: Division of Pathology and Laboratory Medicine [address] [place] [address] Pulmonary Ultrasound (Image Transfer) (06/12/2023 8:46 AM CDT)Only the most recent of4 resultswithin the time period is included. Specimen (Source) Anatomical Location Collection Method / Collectio n Time Received Time / Laterality Volume Narrative Systemgenerated, Documentation - 023 8:46 AM CDT This procedure requires no interpretatio n from the radiologist. Radha N Lombardo CONTRACT TECHNICAL WRITER IMG NON DI ORDERABLES (ABNORMAL) Glucose, Fasting (06/11/2023 9:51 AM CDT)Only the most recent of5 resultswithin the time period is included. athologist Signature Glucose 132 (H) 70 - 99 [place] Fasting mg/dL Comment: Impaired fasting glucose (increased risk for diabetes or prediabetes): 100 125 mg/dL Diabetes mellitus: >= 126 mg/dL Testing performed at [facility], [address] [place] [id number] Specimen Anatomical Collection Method Collection Time Receive d Time (Source) Location / / Volume Laterality Blood 06/11/2023 9:51 AM 9:52 CDT AM CDT C Ashanti Curtis APRN LAB BLOOD ORDERABLES Performing Organization Address City/State/ZIP Code Phon e Number ABEL PAZ [facility] [place] [address] ABEL PAZ [address] [facility], [facility]CC[facility] [address] [place] Transvaginal (06/03/2023 11:46 AM CDT) Anatomical [...] follow-up. Marcello Schultz MD IMG US ORDERABLES US Pelvis Complete (06/03/2023 11:46 [...] AM CDT Examination: US PELVIS COMPLETE, US GONSALEVS SVAGINAL on 06/03/2023 11:46 AM Clinical History: [...] Organization Address City/State/ZIP Code Phon e Number [facility] Unless otherwise noted, [address] all lab tests performed by: Division of Pathology and Laboratory Medicine [facility]5 [facility] [employer] Specimen Collection -FFPE (05/21/2023 7:23 PM CDT) Patholo gist Method Time Signature Beeunice Ap Link [phone] Cytogenetics Yes [facility] ([facility]) [facility] Specimen Anatomical Collection Method Collection Time Receive d Time (Source) Location / / Volume Laterality FFPE 05/21/2023 7:23 PM 3 7:23 CDT PM CDT Nano Olvera MD, MDA HP CG NONBLOOD COLLECTIO NS Performing Organization Address City/State/ZIP Code Phon e Number [facility] Unless otherwise noted, [address] all lab tests performed by: Division of Pathology and Laboratory Medicine [facility] Cholesterol Body Fluid (05/21/2023 1:48 PM CDT) P athologist Signature Chol BF 87 mg/dL [facility] Comment: This body fluid test has not [...] clinical context. Chol BF Type Pleural fluid DC MD VASHTI Rinaldi [facility] Specimen Anatomical Collection Method Collection Time Receive d Time (Source) Location / / Volume Laterality Pleural Fl 05/21/2023 1:48 PM 3 3:12 CDT PM CDT Narrative [facility] - 3 4:07 PM CDT Tube number 1 to Chemistry Stephon Alejandro MD BODY FLUIDS AND STOOLS ORDER ZUHAIR Performing Organization Address City/[facility]/ZIP Code Phon e Number [facility] Unless otherwise noted, [address] all lab tests performed by: Division of Pathology and Laboratory Medicine [address] [place] [address] BF Culture (05/21/2023 1:48 PM CDT) Patholo gist Method Time Signature Final Report No growth [facility] Gram Stain Few WBC's seen DC Report No organisms seen. [facility] Specimen Anatomical Collection Method Collection Time Receive d Time (Source) Location / / Volume Laterality Pleural Fl 05/21/2023 1:48 PM 3 3:44 (Pleural Cavity) CDT PM CDT Narrative [facility] - 3 8:12 AM CDT Tube number 3 to Microbiology Stephon Alejandro MD MICROBIOLOGY - GENERAL ORDER ZUHAIR Performing Organization Address City/[facility]/ZIP [facility] Phon e Number [facility] Unless otherwise noted, [address] all lab tests performed by: Division of Pathology and Laboratory Medicine [address] [place] [address] Triglyceride Body Fluid (05/21/2023 1:48 PM CDT) P athologist Signature Trig BF 20 mg/dL [facility] Comment: This body fluid test has not [...] clinical context. Trig BF Type Pleural, Right [place] MD [facility] Specimen Anatomical Collection Method Collection Time Receive d Time (Source) Location / / Volume Laterality Pleural Fl 05/21/2023 1:48 PM 3 3:12 CDT PM CDT Narrative [facility] - 3 4:07 PM CDT Tube number 1 to Chemistry Stephon Alejandro MD BODY FLUIDS AND STOOLS ORDER ZUHAIR Performing Organization Address City/[facility]/ZIP [facility] Phon e Number [facility] Unless otherwise noted, [address] all lab tests performed by: Division of Pathology and Laboratory Medicine [address] Protein BF (05/21/2023 1:48 PM CDT) P athologist Signature Protein BF 4.4 gm/dL [facility] Comment: This body fluid test has not [...] clinical context. Prot BF Type Pleural fluid DC [facility] Specimen Anatomical Collection Method Collection Time Receive d Time (Source) Location / / Volume Laterality Pleural Fl 05/21/2023 1:48 PM 3 3:12 CDT PM CDT Narrative [facility] - 3 4:07 PM CDT Tube 1 to Chemistry Stephon Alejandro MD BODY FLUIDS AND STOOLS ORDER ZUHAIR Performing Organization Address [facility] Phon e Number [facility] Unless otherwise noted, [address] all lab tests performed by: Division of Pathology and Laboratory Medicine [address] LDH, BF (05/21/2023 1:48 PM CDT) Analysis Performed At Patho logist Time Signature LDH BF Type Pleural [facility] LDH BF 227 U/L [facility] Comment: This body fluid test has not [...] PM 3 3:12 CDT PM CDT Narrative [facility] - 3 4:07 PM CDT Pleural fluid Stephon Alejandro MD BODY FLUIDS AND STOOLS ORDER ZUHAIR Performing Organization Address [facility] Phon e Number [facility] Unless otherwise noted, [address] all lab tests performed by: Division of Pathology and Laboratory Medicine [address] Glucose Body Fluid (05/21/2023 1:48 PM CDT) athologist Signature Glucose BF 155 mg/dL [facility] Comment: This body fluid test has not [...] clinical context. Gluc BF Type Pleural fluid [facility] Specimen Anatomical Collection Method Collection Time Receive d Time (Source) Location / / Volume Laterality Pleural Fl 05/21/2023 1:48 PM 3 3:12 CDT PM CDT Narrative [facility] - 3 4:07 PM CDT Tube number 1 to Chemistry Stephon Alejandro MD BODY FLUIDS AND STOOLS ORDER ZUHAIR Performing Organization Address [facility] Phon e Number [facility] Unless otherwise noted, [address] all lab tests performed by: Division of Pathology and Laboratory Medicine [address] Amylase Level Body Fluid (05/21/2023 1:48 PM CDT) P athologist Signature Amylase BF 34 U/L [facility] Comment: This body fluid test has not [...] clinical context. Amyl BF Type Pleural fluid DC MD [facility] Specimen Anatomical Collection Method Collection Time Receive d Time (Source) Location / / Volume Laterality Pleural Fl 05/21/2023 1:48 PM 3 3:12 CDT PM CDT Narrative [facility] - 3 4:07 PM CDT Tube number 1 to Chemistry Stephon Alejandro MD BODY FLUIDS AND STOOLS ORDER ZUHAIR Performing Organization Address City/[facility]/ZIP [facility] Phon e Number [facility] Unless otherwise noted, [place] [address] [place] all lab tests performed by: Division of Pathology and Laboratory Medicine [address] [place] [address] Lipase Level (04/02/2023 8:50 AM CDT)Only the most recent of3 resultswithin the time period is included. athologist Signature Lipase Lvl 33 13 - 60 U/L [place] Comment: Testing performed at [facility], [address] [place] [address] Specimen Anatomical Collection Method Collection Time Receive d Time (Source) Location / / Volume Laterality Blood 04/02/2023 8:50 AM 3 9:03 CDT AM CDT Marcello Schultz MD LAB BLOOD ORDERABLES Performing Organization Address [facility] [place] [address], [facility] [address] Bilirubin Total (12/05/2022 10:38 AM SURGICAL RESIDENT) athologist Signature Bili Total 0.6 <=1.2 mg/dL [place] Comment: Indocyanine Green (ICG) may cause falsel y elevated bilirubin results. Total and direct bilirubin must not be measured from samples containing indocyanine green. False elevation of total bilirubin can b e seen in patients with IgG concentrations above 28 g/L. Testing performed at [facility] [address] [place] [address] Specimen Anatomical Collection Method Collection Time Receive d Time (Source) Location / / Volume Laterality Blood 12/05/2022 10:38 12/05/2022 AM SURGICAL RESIDENT 10:39 AM SURGICAL RESIDENT Marcello Schultz MD LAB BLOOD ORDERABLES Performing Organization Address City/State/ZIP Code Phon e Number ABEL PAZ [facility] [place] [address] ABEL PAZ [address] [facility], [facility]CC[facility] [address] PETCT Subsequent Treatment Strategy (10/25/2022 11:28 AM SURGICAL RESIDENT) Anatomical Region Laterality Modality Whole Body Positron Emission To mography (PET) Specimen (Source) Anatomical Collection Method Collection Time Re ceived Time Location / / Volume Laterality 10/29/2022 3:47 PM SURGICAL RESIDENT Impressions 10/29/2022 4:19 PM SURGICAL RESIDENT 1. FDG-avid multifocal skeletal metastatic disease is [...] can be followed. Narrative 10/29/2022 4:19 PM SURGICAL RESIDENT FULL RESULT: Examination: FDG PET/CT, 10/25/2022 11:2 [...] suspicious subcutaneous lesions are appreciated. Procedure Note Robert, Naz, MD - 10/29/2022 FULL RESULT: Examination: FDG [...] PETCT ORDERABLES (ABNORMAL) TSH (10/08/2022 9:41 AM SURGICAL RESIDENT) athologist Signature TSH 0.02 (L) 0.27 - 4.20 [place] mcunit/mL Comment: Testing performed at [facility], [address] [place] [address], [place] [address] Specimen Anatomical Collection Method Collection Time Receive d Time (Source) Location / / Volume Laterality Blood 10/08/2022 9:41 AM 9:41 SURGICAL RESIDENT AM SURGICAL RESIDENT C Ashanti Curtis APRN LAB BLOOD ORDERABLES Performing Organization Address City/State/[place] [address] [place] [address] [facility], [facility] [address] Free T4 (10/08/2022 9:41 AM SURGICAL RESIDENT) athologist Signature T4 Free 1.04 0.93 - 1.70 [place] ng/dL Comment: Testing performed at [facility], [address] [place] [address], [place] [address] Specimen Anatomical Collection Method Collection Time Receive d Time (Source) Location / / Volume Laterality Blood 10/08/2022 9:41 AM 9:41 SURGICAL RESIDENT AM SURGICAL RESIDENT C Ashanti Curtis APRN LAB BLOOD ORDERABLES Performing Organization Address City/[facility]/[place] [address], [facility] [address] after 10/02/2022 Insurance Payer Benefit Plan / Subscriber ID Effective Dates Phone Addre ss Type Group [employer] [place] PPO POS [id number] 2022-Present [id number] [place] [address] Advance Directives Code Status Date Activated Date Inactivated Comments Full Code 08/26/2023 10:41 AM 09/03/2023 4:23 PM Code Status Date Activated Date Inactivated Comments Full Code 07/25/2023 9:14 PM 08/05/2023 7:53 PM Full Code 06/26/2023 8:24 PM 06/27/2023 11:31 PM Full Code 06/05/2023 12:32 PM 06/07/2023 4:01 PM Full Code 07/10/2022 6:25 PM 07/10/2022 10:13 PM Care Teams Community Educator Relationship Specialty Start Date End Date Marcello Schultz MD PCP - General Breast Medical 11/22/[address] [place] [id number] Keron Tan MD PCP - External Primary Family Practice 11/22/21 Care Provider [address] [place] [phone] Tyler Kenny MD Physician 01/17/[address] [place] [address] [place] [address] Laura Sexton MD Consulting Physician Ophthalmology 07/08/[address] [place] [id number] Yarelis, Consulting Physician Pain Management 08/14/22 MD Miguelito [address] [place] [address] Delores Oakes PA Physician Perinatal Breastfeeding Assistant Physician Perinatal Breastfeeding Assistant 09/26/[address] [place] [id number] Chuck Thomas MD Consulting Physician Urology 02/04/[address] [place] [id number] Josh Dewey MD Consulting Physician Experimental Treatment 06/25/23 [facility] [place] [address] Stephon Alejandro MD Consulting Physician Pulmonary Medicine 05/21/23 [address] [place] [address] Luis Armando Andrews MD Consulting Physician Radiation Oncology 03/06/[address] [place] [address]
[2023-10-02] MEDS ORDERED: LORazepam 2 MG/ML VIAL ONE ×2 (09:47→21:31)
--- OUTSIDE RECORDS SUMMARY | 2023-10-02 09:50 | XMS REPORT | Continuity of Care Document ---
:1965 Author Organization [facility] t Address [address] [facility] [address] [place] [id number] Care Team Providers Name Role Phone PATRICIA MOHR Primary Care Physician Unavailable LIZET LARA Attending Clinician Unavailable JOE ROSEN Attending Clinician Unavailable ANASTACIA THOMAS Attending Clinician Unavailable JALIL ALEJANDRO Attending Clinician Unavailable SYSTEM, PROVIDER NOT IN Attending Clinician Unavailable MARCELLO SCHULTZ Attending Clinician Unavailable YULIANA HOFFMAN Attending Clinician Unavailable Dago NAVARRO, Abram Gallo Attending Clinician [phone] Santiago NAVARRO, Allegra Attending Clinician Wm King MD Attending Clinician Guillermo NAVARRO PhD, Balbina Attending Clinician BALBINA LI Attending Clinician Unavailable KIM GILLESPIE Attending Clinician Unavailable ARIC DEWITT Attending Clinician Unavailable Bao NAVARRO, Tri Villegas Attending Clinician [phone] Koki Eden RN Attending Clinician WM KING Attending Clinician Unavailable Antoine NAVARRO, Marcello Attending Clinician Donahue INTAKE CLINICIAN, Debra Randhawa Attending Clinician Jose Miguel NAVARRO, Kim Attending Clinician ALLEGRA HENDERSON Attending Clinician Unavailable Genevieve DE LA TORRE, Sarahi Grady Attending Clinician [phone] René NAVARRO, Syed Attending Clinician Unavailable ABRAM LOZA Attending Clinician Unavailable Kashif INTAKE CLINICIAN, Salty Attending Clinician SALTY ROWLAND Attending Clinician Unavailable Jose DE LA TORRE, Lizet Attending Clinician Reva BHARDWAJN, Juan Attending Clinician Juan Antonio INTAKE CLINICIAN, Jennifer Childs Attending Clinician Whit NAVARRO, Marcella [...] Carleen NAVARRO, Ant Brizuela Attending Clinician Jennifer NAVARRO, Hong Attending Clinician Silas NAVARRO PhD, Joe Grady Attending Clinician [phone] Raji NAVARRO, Rashel Attending Clinician Ligia NAVARRO, Brenna Attending Clinician Kalpana Olsen APRN Attending Clinician EUNICE BLANCO. Attending Clinician Unavailable MORGAN RAWLS Attending Clinician Unavailable Alba NAVARRO, Eunice Galeano Attending Clinician Amadeo ROCHE, Jt Shepard Attending Clinician Femi MATAS, Dariel Sifuentes Attending Clinician Analy Pringle MD Attending Clinician JESSICA POLK Attending Clinician Unavailable Gibran Belle BDS Attending Clinician Yarelis NAVARRO, Miguelito Attending Clinician [phone] Joseph NAVARRO, Shirley Attending Clinician Koki Whitney CRNA Attending Clinician Unavailable Savannah Briceno APRN Attending Clinician Juliann INTAKE CLINICIAN, Naina Attending Clinician Serg Rod RN Attending Clinician Sharon Martinez RN Attending Clinician Unavailable Ayesha Cason RN Attending Clinician Unavailable Jairo Fraire MD Attending Clinician JENNIFER WEST Attending Clinician Unavailable Stefania Bal RN Attending Clinician [phone] Catrina Guillermo RN Attending Clinician Eevlio NAVARRO, Ranjan Durant Attending Clinician Souleymane Ester [place] Attending Clinician Nataly Corral Attending Clinician Ever DE LA TORRE, Edis Burrell Attending Clinician Darshan NAVARRO, Laura Attending Clinician Munira INTAKE CLINICIAN, Radha Gibbs Attending Clinician Asher INTAKE CLINICIAN, Cookie A Attending Clinician COOKIE STERLING Attending Clinician Unavailable Blanca BANKS, Eri Randhawa Attending Clinician Saleem ROCHE, Nancie Attending Clinician Madelyn NAVARRO, Sarath Mendoza. Attending Clinician Star Kraus MD, Matilda Finnegan Attending Clinician [phone] Dulce NAVARRO, Essie Attending Clinician ESSIE CARDONA Attending Clinician Unavailable Edis LUCIANO Attending Clinician Unavailable Javon NAVARRO, Jalil Chau Attending Clinician Nancy NAVARRO, Dion Attending Clinician [phone] Monserrat NAVARRO, Elijah Mcgrath Attending Clinician Rosalie NAVARRO, Jose Attending Clinician Leon INTAKE CLINICIAN, Amna Grady Attending Clinician Jerica PT, Dayanara L Attending Clinician Martha NAVARRO, Anastacia Attending Clinician Haley NAVARRO, Genny F Attending Clinician [phone] Nikolay ADLER, Bessie Mendoza Attending Clinician Unavailable Russ NAVARRO, Serge Butler Attending Clinician [phone] Joesph BROOKS, Shoa Pathak Attending Clinician Unavailable Vilma DE LA TORRE, Brenna Attending Clinician Mack NAVARRO, Tino Attending Clinician Unknown, Attending Attending Clinician Unavailable TINO WASHINGTON Attending Clinician Unavailable Doctor Unassigned, [place] Attending Clinician Unavailable Gurdeep ADLER, Elisa Attending Clinician Unavailable Ashley Villanueva APRN Attending Clinician Steph Graves MA Attending Clinician Unavailable Fouzia Azul Attending Clinician Unavailable ALVARO CALVILLO Attending Clinician Unavailable Natasha Reich Attending Clinician Unavailable Nehemias ADLER, Carlos T Attending Clinician Delores Zafar Attending Clinician Victorino Contreras MD Attending Clinician Irvin ADLER, Mio T Attending Clinician Unavailable VIVIAN GRANADOS Attending Clinician Unavailable MIGUELITO VINES Attending Clinician Unavailable Dayan Madrid S Attending Clinician DAYAN DAI Attending Clinician Unavailable EDU OLIVEIRA Attending Clinician Unavailable CHIKA HIGHTOWER Attending Clinician Unavailable MAITE VILLALPANDO Attending Clinician Unavailable ERIBERTO YOUNGER Attending Clinician Unavailable ANT DURANT Admitting Clinician Unavailable ANASTACIA THOMAS Admitting Clinician Unavailable JALIL ALEJANDRO Admitting Clinician Unavailable ALLEGRA HENDERSON Admitting Clinician Unavailable MATILDA HERRON Admitting Clinician Unavailable DION CRUZ Admitting Clinician Unavailable GILBERT VILLALPANDO Admitting Clinician Unavailable Physician, No Primary or Family Admitting Clinician Unavaila ble Payers Payer Name Policy Type Policy Number Effective Date Expiration Date S nereida [place] P[place] POS [id number] 2022 00:00:[address] 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 00:00: [place] mellitus mellitus 00 with with Klaudia gibbs [facility] Adverse Adverse Disease Active 2022-11 Univers effect of effect of 0-20 ity of glucocorti glucocorti [place] coids and coids and 00 synthetic synthetic Juan rso analogues analogues n [facility] Center FDC FDC Disease Active 2022-11 Uni vers current current 0-20 ity of use of use of 00:00: [place] systemic systemic 00 steroid steroid [facility]udia gibbs [facility] Anxiety Anxiety Disease Active 2022-11 Univers disorder disorder 0-18 ity of due to a due to a 00:00: [place] general general 00 medical medical [place] condition condition [facility] Psychiatri Psychiatri Disease Active 2022-11 U aimee c c 0-17 ity of interview interview 00:00: Elisabeth shepard and jami 00 evaluation evaluation An derso n [facility] History of History of Disease Active 2022-11 U aimee cancer cancer 0-16 ity of metastatic metastatic [place] to bone to bone 00 MD Klaudia gibbs [facility] Pathologic Pathologic Disease Active 2022-11 U aimee al al 0-15 ity of fracture fracture 00:00: [place] in in 00 neoplastic neoplastic An derso disease, disease, n pelvis and pelvis and Ca ncer femur femur Center Pulmonary Pulmonary Disease Active 2022-11 Overview: Univers infiltrate infiltrate 0-14 Formattin ity of 00:00: g of this [place] 00 note MD might be Klaudia figueroa n from the Cancer original. Center Added automatic ally from request for surgery [id number] Cancer Cancer Disease Active Univers associated associated 9-20 it y of pain pain 00:00: [place] 00 MD [facility]laudia gibbs [facility] Serum Serum Disease Active Univers creatinine creatinine 9-14 it y of above above 00:00: [place] reference reference 00 range range [facility]laudia gibbs [facility] Disorder Disorder Disease Active Unive rs of mineral of mineral 9-14 it y of metabolism metabolism [place] 00 [place] [facility]ia [facility] Hyperurice Hyperurice Disease Active U aimee radha radha 9-14 ity of 00:00: [place] 00 MD [facility]laudia gibbs [facility] Hyperphosp Hyperphosp Disease Active U aimee hatemia hatemia 9-14 ity of 00:00: [place] 00 MD Klaudia gibbs [facility] Hyposmolal Hyposmolal Disease Active U aimee ity and/or ity and/or 9-14 it y of hyponatrem hyponatrem 00:[place] 00 MD [facility] Hip pain Hip pain Disease Active Last Unive rs 8-30 Assessmen ity of 00:00: t & Plan: Subhash morales of this Andgeremiaso note n might be Cancer different Center from the original. Xray reveals known bone metastase s but is negative for pathologi c fracture. Continue follow up with oncology team. Hydronephr Hydronephr Disease Active Overview : Univers osis osis 8-24 Formattin ity of 00:00: g of this note might be Anderso different n from the Cancer original. Center Added automatic ally from request for surgery [id number] Dyspnea Dyspnea Disease Active Last Univers 8 Assessmen ity of 00:00: t & Plan: Subhash morales of this Andgeremiaso note n might be Cancer different Center [...] Added automatic ally from request for surgery [id number] Assessmen t & Plan: Formattin g of [...] place for 6 weeks or longer. Unfortuna tely having the procedure was not expected to [...] managemen t team. Breast Breast Disease Active [facility] cancer cancer 206 ity of 00:00: [place] 00 MD [facility] Hydronephr Hydronephr Disease Active Overview : [facility] osis due osis due 02-05 Formattin ity of to to 00:00: g of this [place] ureteral ureteral 00 note obstructio obstructio might be Anderso n n different n from the Cancer original. Center Added automatic ally from request for surgery [id number] Estrogen Estrogen Disease Active Unive rs receptor receptor 1-13 ity of positive positive 00:00: [place] status status 00 (ER+) (ER+) [facility] Personal Personal Disease Active Unive rs history of history of -11 it y of malignant malignant 00:00[place] neoplasm neoplasm 00 of breast of breast [facility] Secondary Secondary Disease Active Uni vers and and 1-11 ity of unspecifie unspecifie 00:[place] d d 00 MD malignant malignant Juan rso neoplasm neoplasm n of lymph of lymph Cancer nodes of nodes of Center multiple multiple regions regions Metastatic Metastatic Disease Recurre Univers malignant malignant nce 1-11 ity of neoplasm neoplasm 00:00: [place] to bone to bone 00 MD Klaudia gibbs [facility] Foot pain, Foot pain, Disease Active 2018-11 M ethodi bilateral bilateral 00:00: Hospita 00 l Postmenopa Postmenopa Disease Active U nivers usal state usal state 04-05 it y of 00:00: [place] 00 MD Klaudia gibbs [facility] Anxiety Anxiety Disease Recurre Univer s nce 04-05 ity of 00:00: [place] 00 MD [facility]laudia gibbs [facility] Pleural Pleural Disease Resolve 2023-06-26 2023-06-26 Univers effusion effusion d 05-05 00:00:00 20:12:37 it y of 00:00: [place] 00 MD [facility]laudia gibbs [facility] Allergies, Adverse Reactions, Alerts Allergy Allergy Status Severity Reaction(s) Onset Inactive Treating Comm ents Source Name Type Date Date Clinician AMOXICIL DRUG Active Low Rash 2021-1 OTTO-POT 0-05 Anderso CLAVULAN 00:00: n ATE 00 AMOXICIL DRUG Active Low Rash 2-1 OTTO-POT 0-05 Anderso CLAVULAN 00:00: n ATE 00 AMOXICIL DRUG Active Low Rash 2-1 OTTO-POT 0-05 Anderso CLAVULAN 00:00: n ATE 00 AMOXICIL DRUG Active Low Rash 2-1 OTTO-POT 0-05 Anderso CLAVULAN 00:00: n ATE 00 AMOXICIL DRUG Active Low Rash 2-1 OTTO-POT 0-05 Anderso CLAVULAN 00:00: n ATE 00 AMOXICIL DRUG Active Low Rash 2022-1 OTTO-POT 0-05 Anderso CLAVULAN 00:00: n ATE 00 AMOXICIL DRUG Active Low Rash 2022-1 OTTO-POT 0-05 Anderso CLAVULAN 00:00: n ATE 00 AMOXICIL DRUG Active Low Rash 2022-1 OTTO-POT 0-05 Anderso CLAVULAN 00:00: n ATE [...] AMOXICIL DRUG Active Low Rash 2022-1 MD TOTO-POT 0-05 Anderso CLAVULAN 00:00: n ATE 00 [...] AMOXICIL DRUG Active Low Rash 2-1 MD OTTO-POT 0-05 Anderso CLAVULAN 00:00: n [...] Patient U nivers one-Acet ty to Comments) 3 refused ity of aminophe adverse 00:00: to take, [place] n reaction 00 worried MD shepard of [place] getting n addicted Cancer to the [place] medicine. HYDROCOD DRUG Active Low Other 2021-0 MD [...] N 00 HYDROCOD DRUG Active Low Other ONE-ACET 3-28 Anderso AMINOPHE 00:00: n N 00 HYDROCOD DRUG Active Low Other ONE-ACET 3-28 Anderso AMINOPHE 00:00: n N 00 Predniso Propensi Active GI 2018-11 Method i ne ty to Intolerance 0-23 st adverse 00:00: Hospita reaction 00 l s to drug NO KNOWN Drug Active Univers ALLERGIE Class ity of S [facility] Family History Family Member Diagnosis Comments Start Date Stop Date Source Maternal grandfather Lung cancer Uni versity [facility] Maternal uncle Sarcoma [facility] [place] [facility] Natural [facility] Social History Social Habit Start Date Stop Date Quantity Comments Source [facility] Alcohol intake 2023-08-29 2023-08-29 Ex-drinker [facility] 00:00:00 00:00:00 (finding) [place] MD Cr [facility] Education 2023-08-27 2023-08-27 16 [facility] 00:00:00 00:00:00 [place] [facility] Exposure to 2023-03-11 2023-03-21 Not sure [facility] SARS-CoV-2 (event) 00:00:00 14:33:00 [facility] Tobacco use and 2021-11-22 2021-11-22 Smokeless Universit y of exposure 00:00:00 00:00:00 tobacco non-user [facility] History of Social 2020-01-01 2020-01-[address] function 00:00:00 00:00:00 Hospital Sex Ass[birth year] At [birth year] Rast[facility]arian 00:00:00 00:00:00 Hospital Smoking Status Start Date Stop Date Source Tobacco [facility] tobacco [facility] Medications Ordered Filled Start Stop Current Ordering Indication Dosage Frequency Signature Comments Components Source Medication Medication Date Date Medication? Clinician (SIG) Name Name SITagliptin 2022-11 Yes Drug 100mg Take 1 Uni vers phosphate 0-26 induced tablet ity o f (JANUVIA) 00:00: diabetes (100 mg) [place] 100 mg 00 mellitus by mouth MD tablet with daily. Klaudia hyperglyvickey gibbs [facility] SITagliptin 2022-11 Yes Drug 100mg Take 1 Uni vers phosphate 0-26 induced tablet ity o f (JANUVIA) 00:00: diabetes (100 mg) [place] 100 mg 00 mellitus by mouth MD tablet with daily. Klaudia hyperglycem sai [facility] predniSONE 2022-11- Yes Pneumonitis Take 5 [...] tablet (10 mg) daily for 5 days. [facility] 5 2022-11 Yes 15mg Take 3 Univ ers mg tab 0-25 tablets ity of tablet 21:57: (15 mg) by [place] 00 mouth at MD bedtime. [facility] esomeprazol 2022-11 Yes 20mg Take 1 Univ ers e (NexIUM) 0-25 capsule ity of 20 MG 21:57: (20 mg) by [place] capsule 00 mouth MD every Anderso morning n before Cancer breakfast. [place] melatonin 2022-11 Yes 15mg Take 3 Univ ers mg tab 0-25 tablets ity of tablet 21:57: (15 mg) by [place] 00 mouth at MD bedtime. [facility] esomeprazol 2022-11 Yes 20mg Take 1 Univ ers e (NexIUM) 0-25 capsule ity of 20 MG 21:57: (20 mg) by [place] capsule 00 mouth MD every Anderso morning n before Cancer breakfast. [place] calcium 2022-11 Yes 500mg Chew 1 Univers carbonate 0-25 tablet ity of (TUMS) 500 14:23: (500 mg) Kavin as mg (200 mg 13 daily. elemental Anderso calcium per n tablet) Cancer chewable Center tablet calcium 2022-11 Yes 500mg Chew 1 Univers carbonate 0-25 tablet ity of (TUMS) 500 14:23: (500 mg) Kavin as mg (200 mg 13 daily. elemental Jamierso calcium per n tablet) Cancer chewable Center tablet polyethylen 2022-11 Yes Breast 17g Fill Univ ers e glycol 0-25 cancer powder to ity of (GLYCOLAX) 00:00: jt inside cap gram/dose (17 g). Anderso powder [...] by Estela 4 mg tablet 00 mouth every 4 Anderso (four) n hours as Cancer needed Center (pain). morphine 2022-11 Yes Cancer 30mg Take 1 Unive rs (MS CONTIN) 0-25 associated tablet (30 ity of 30 mg 12 hr 00:00: pain mg) by Kavina s tablet 00 mouth every 8 Anderso (eight) n hours. Cancer Center fluticasone 2022-11 Yes Pneumonitis 1{puff} Inhale 1 Univers propionate- 0-25 puff by ity o f salmeterol 00:00: mouth [place] (ADVAIR) 00 every 12 250 mcg-50 (twelve) Tayo so mcg/inhalat hours. n ion diskus Cancer inhaler Center polyethylen 2022-11 Yes Breast 17g Fill Univ ers e glycol 0-25 cancer powder to ity of (GLYCOLAX) 00:00: jt inside cap gram/dose (17 g). Anderso powder [...] by [place]ela 4 mg tablet 00 mouth every 4 Anderso (four) n hours as Cancer needed Center (pain). morphine 2022-11 Yes Cancer 30mg Take 1 Unive rs (MS CONTIN) 0-25 associated tablet (30 ity of 30 mg 12 hr 00:00: pain mg) by Elisabeth s tablet 00 mouth every 8 Anderso (eight) n hours. Cancer Center fluticasone 2022-11 Yes Pneumonitis 1{puff} Inhale 1 Univers propionate- 0-25 puff by ity o f salmeterol 00:00: mouth [place] (ADVAIR) 00 every 12 250 mcg-50 (twelve) Tayo so mcg/inhalat hours. n ion diskus Cancer inhaler Center pediatric 2022-11- No Chew Univers multivitami 0-24 10-24 daily. ity o f n chewable 15:57: 00:00 [place] tablet 22 :00 MD [facility] pediatric 2022-11- No Chew Univers multivitami 0-24 10-24 daily. ity o f n chewable 15:57: 00:00 [place] tablet 22 :00 MD [facility] artificial 2022-11 Yes Breast 2[drp] Administer Univers tears, 0-24 cancer 2 drops to ity o f carboxymeth 00:00: both eyes [place] ylcellulose 00 as needed , (REFRESH for dry Leandro o PLUS) 0.5% eyes n ophthalmic (twice Cancer solution daily). Center dextrometho 2022-11 Yes Breast 10mL Take 10 mL Univers rphan-guaiF 0-24 cancer by mouth it y of ENesin 00:00: every 4 [place] (ROBITUSSIN 00 (four) MD BENÍTEZ) 10 hours as Anderso mg-100 mg/5 needed [...] twice MD daily. Anderso n Cancer Center artificial 2022-11 Yes Breast 2[drp] [...] every 4 [place] (ROBITUSSIN 00 (four) MD BENÍTEZ) 10 hours as Anderso mg-100 mg/5 needed [...] mouth [place] tablet 00 twice MD daily. [facility] levoFLOXaci 2022-11 Yes Hydronephro 500mg Take 1 [...] n days Cancer before Center surgery melatonin 2022-11- No 3mg Take 1 Uni vers mg tablet 0-14 10-14 tablet (3 ity of 11:51: 00:00 mg) by [place] 29 :00 mouth at MD bedtime. [facility] melatonin 3 2022-11- No 3mg Take 1 Uni vers mg tablet 0-14 10-14 tablet (3 ity of 11:51: 00:00 mg) by [place] 29 :00 mouth at MD bedtime. [facility] daridorexan 2022-11- No insomnia 25mg Take 25 mg Univers t (Quviviq) 0-14 10-14 by mouth ity of 25 mg tab 11:50: 00:00 daily. [place] 35 :00 MD [facility] daridorexan 2022-11- No insomnia 25mg Take 25 mg Univers t (Quviviq) 0-14 10-14 by mouth ity of 25 mg tab 11:50: 00:00 daily. [place] 35 :00 MD [facility] amLODIPine 2022-11 Yes 5mg Take 1 Unive rs (NORVASC) 5 0-12 tablet (5 ity of mg tablet 00:00: mg) by [place] 00 mouth daily. [facility] amLODIPine 2022-11 Yes 5mg Take 1 Unive rs (NORVASC) 5 0-12 tablet (5 ity of mg tablet 00:00: mg) by [place] 00 mouth daily. [facility] predniSONE 2022-11- No 10mg Take 1 Univ ers (DELTASONE) 0-12 10-24 tablet (10 i ty of 10 mg 00:00: 00:00 mg) by [place] tablet 00 :00 mouth twice Anderso daily. [facility] predniSONE 2022-11- No 10mg Take 1 Univ ers (DELTASONE) 0-12 10-24 tablet (10 i ty of 10 mg 00:00: 00:00 mg) by [place] tablet 00 :00 mouth twice Anderso daily. [facility] INV-(2022-11- Yes Estrogen 100mg Take 1 Univers [...] [place] (first 00 :00 status by mouth generation) (ER+) every 12 And erso 100 [...] [place] (first 00 :00 status by mouth generation) (ER+) every 12 And erso 100 [...] 0-03 daily. ity of n chewable 00:19: [place] tablet 32 MD Klaudia gibbs [facility] melatonin 3 2022-11 Yes 3mg Take 1 Univ ers mg tablet 0-03 tablet (3 ity o f 00:19: mg) by [place]ela 32 mouth at bedtime. Klaudia gibbs [facility] calcium 2022-11 Yes 500mg Chew 1 Univers carbonate 0-03 tablet ity of (TUMS) 500 00:19: (500 mg) K[place] as mg (200 mg 32 daily. elemental Klaudia calcium per n tablet) Cancer chewable [place] tablet daridorexan 2023-1 Yes insomnia 25mg Take 25 mg Univers t (Quviviq) 0-02 by mouth ity of 25 mg tab 13:56: daily. [place] 32 [facility] famotidine Yes Neoplasm of 20mg Take 1 Univers (PEPCID) 20 - extradural tablet (20 ity of mg tablet 00:00: space mg) by [place] 00 mouth daily. [facility] famotidine Yes Neoplasm of 20mg Take 1 Univers (PEPCID) 20 - extradural tablet (20 ity of mg tablet 00:00: space mg) by [place] 00 mouth daily. [facility] famotidine Yes Neoplasm of 20mg Take 1 Univers (PEPCID) 20 08-06 extradural tablet (20 ity of mg tablet 00:00: space mg) by [place] 00 mouth daily. [facility] UNABLE TO 2022- No Vitamins Uni vers FIND 08-05 B12, D, ity of 13:21: 00:00 Calcium, [place] 38 :00 MD Edis Probiotic, Anderso Milk [facility] UNABLE TO 2022- No Vitamins Uni vers FIND 08-05 B12, D, ity of 13:21: 00:00 Nani [place] 38 :00 MD Edis Probiotic, Anderso Milk [facility] UNABLE TO 2022- No Vitamins Uni vers FIND 08-05 B12, D, ity of 13:21: 00:00 [place] Cardoza 38 :00 MD Edis Probiotic, Anderso Milk [facility] cyclobenzap Yes Hip pain 10mg Take 1 Univers rine 08-05 tablet (10 ity of (FLEXERIL) 00:00: mg) by [place] 10 00 mouth 3 MD tablet (three) Anderso times a n day as Cancer needed for Center muscle spasms. gabapentin Yes Estrogen 600mg Take 2 Univers (NEURONTIN) 08-05 receptor capsules ity of 300 mg 00:00: positive (600 mg) Kavin as capsule 00 status by mouth (ER+) at [facility] hyoscyamine Yes Hydronephro .125mg Dissolve 1 Univers sulfate 9-26 sis, not tablet ity of (ANASPAZ) 00:00: otherwise (0.125 mg) [place] 0.125 mg 00 specified on the MD disintegrat tongue Le[place] o ing tablet every 6 n (six) Cancer hours as Center needed for cramping. ALPRAZolam Yes Estrogen .25mg Take 1 Univers (XANAX) 9-26 receptor tablet ity of 0.25 mg 00:00: positive (0.25 mg) [place] tablet 00 status by mouth MD (ER+) at Anderso bedtime. n Cancer Center dexAMETHaso Yes Neoplasm of 4mg Take 1 Univers ne 9-26 extradural tablet (4 ity of (DECADRON) 00:00: space mg) by Elisabeth shepard 4 mg tablet 00 mouth MD daily with Anderso breakfast n for 7 Cancer dakys then Center stop. cyclobenzap Yes Hip pain 10mg Take 1 Univers rine 9-26 tablet (10 ity of (FLEXERIL) 00:00: mg) by [place] 10 mg 00 mouth 3 MD tablet (three) Anderso times a n day as Cancer needed for Center muscle spasms. hyoscyamine Yes Hydronephro .125mg Dissolve 1 Univers sulfate 9-26 sis, not tablet ity of (ANASPAZ) 00:00: otherwise (0.125 mg) [place] 0.125 mg 00 specified on the MD disintegrat tongue [place] o ing tablet every 6 n (six) Cancer hours as Center needed for cramping. ALPRAZolam Yes Estrogen .25mg Take 1 Univers (XANAX) 9-26 receptor tablet ity of 0.25 mg 00:00: positive (0.25 mg) [place] tablet 00 status by mouth MD (ER+) at Anderso bedtime. n Cancer Center cyclobenzap Yes Hip pain 10mg Take 1 Univers rine 9-26 tablet (10 ity of (FLEXERIL) 00:00: mg) by [place] 10 mg 00 mouth 3 MD tablet (three) Anderso times a n day as Cancer needed for Center muscle spasms. hyoscyamine Yes Hydronephro .125mg Dissolve 1 Univers sulfate 9-26 sis, not tablet ity of (ANASPAZ) 00:00: [...] 00 status by mouth MD (ER+) at [facility] bedtime. n [facility] gabapentin 2022- No Estrogen 600mg Take 2 Univers (NEURONTIN) 08-05- receptor capsules ity of 300 mg 00:00: 00:00 positive (600 mg) [place] capsule 00 :00 status by mouth MD (ER+) at [facility] bedtime. n Cancer [place] gabapentin 2022- No Estrogen 600mg Take 2 Univers (NEURONTIN) 08-05 receptor capsules ity of 300 mg 00:00: 00:00 positive (600 mg) [place] capsule 00 :00 status by mouth MD (ER+) at [facility] bedtime. n Cancer Center dexAMETHaso 2022- No Neoplasm of 4mg Take 1 Univers ne 08-05 10-24 extradural tablet (4 ity of (DECADRON) 00:00: 00:00 space mg) by [place] 4 mg tablet 00 :00 mouth MD daily with [facility]o breakfast n for 7 Cancer d[place]ys then Center stop. dexAMETHaso 2022- No Neoplasm of 4mg Take 1 Univers ne 08-05 10-24 extradural tablet (4 ity of (DECADRON) 00:00: 00:00 space mg) by [place] 4 mg tablet 00 :00 mouth MD daily with Anderso breakfast n for 7 Cancer dakys then Center stop. HYDROmorpho Yes Cancer 2mg Take 1 Un tamela ne 9- associated tablet (2 ity of (DILAUDID) 00:00: pain mg) by [place] 2 mg tablet 00 mouth MD every 4 Anderso (four) n hours as Cancer needed for Center severe pain. HYDROmorpho 2022- No Cancer 2mg Take 1 U nivers ne 9-22 10-25 associated tablet (2 ity of (DILAUDID) 00:00: 00:00 pain mg) [place] 2 mg tablet 00 :00 mouth every 4 Anderso (four) n hours as Cancer needed for Center severe pain. HYDROmorpho 2022- No Cancer 2mg Take 1 U nivers ne 08-0125 associated tablet (2 ity of (DILAUDID) 00:00: 00:00 pain mg) by [place] 2 mg tablet 00 :00 mouth every 4 Anderso (four) n hours as Cancer needed for Center severe pain. multivitami 2022- No 1{capsu Take 1 Univers n capsule 07-25 le} capsule by ity of 18:38: 00:00 mouth [place] 02 :00 daily. MD [facility]udia [facility] [place] [facility] [place] 20[place]- No 1{capsu Take 1 Univers n capsule 07-25 le} capsule by ity of 18:38: 00:00 mouth [place] 02 :00 daily. MD [facility]udia [facility] [place] [facility] 2022- No 1{capsu Take 1 Univers n capsule 07-25 le} capsule by ity of 18:38: 00:00 mouth [place] 02 :00 daily. MD Klaudia [facility] montelust 2022- No 10mg Take 1 Uni vers (SINGULAIR) 07-25 tablet (10 i ty of 10 mg 18:37: 00:00 mg) by [place] tablet 59 :00 mouth at NE bedtime. [facility] No 10mg Take 1 Uni vers (SINGULAIR) 07-25 tablet (10 i ty of 10 mg 18:37: 00:00 mg) by [place] tablet 59 :00 mouth at NE bedtime. Klaudia [email or web address] 2022- No 10mg Take 1 Uni vers (SINGULAIR) 07-25 tablet (10 i ty of 10 mg 18:37: 00:00 mg) by [place] tablet 59 :00 mouth at NE bedtime. Klaudia [facility] hyoscyamine 2022- No Hydronephro TAKE 1 [facility] sulfate 07-22 sis, not TABLET BY it y of (ANASPAZ) 00:00: 00:00 otherwise MOUTH [place] 0.125 mg 00 :00 specified EVERY 6 MD disintegrat HOURS Juan rso ing tablet NEEDED FOR n BLADDER Cancer SPASMS Center hyoscyamine 2022- No Hydronephro TAKE 1 [facility] sulfate 07-22 sis, not TABLET BY it y of (ANASPAZ) 00:00: 00:00 otherwise MOUTH [place] 0.125 mg 00 :00 specified EVERY 6 MD disintegrat HOURS Juan rso ing tablet NEEDED FOR n BLADDER Cancer SPASMS Center hyoscyamine 2022- No Hydronephro TAKE 1 Univers sulfate 07-22 sis, not TABLET BY it y of (ANASPAZ) 00:00: 00:00 otherwise MOUTH [place] 0.125 mg 00 :00 specified EVERY 6 MD disintegrat HOURS Juan rso ing tablet NEEDED FOR n BLADDER Cancer SPASMS Center acetaminoph 2022- No Neoplasm 1{tbl} Take [...] No Neoplasm 1{tbl} Take 1 Univers en-codeine 9- 09-12 related tablet by ity of (TYLENOL 00:00: 00:00 pain mouth [place] #3) 300 00 :00 (acute) every 4 MD mg-30 mg (chronic) (four) Juan rso tablet hours as n needed for Cancer moderate Center pain. acetaminoph 2022-0 2022- No Neoplasm 1{tbl} Take 1 [facility] en-codeine 9- 09-12 related tablet by ity of (TYLENOL 00:00: 00:00 pain mouth [place] #3) 300 00 :00 (acute) every 4 MD mg-30 mg (chronic) (four) Juan rso tablet hours as n needed for Cancer moderate Center pain. acetaminoph 2022-2022- No Neoplasm 1{tbl} Take 1 Univers en-codeine 9- 09-12 related tablet by ity of (TYLENOL 00:00: 00:00 pain mouth [place] #3) 300 00 :00 (acute) every 4 MD mg-30 mg (chronic) (four) Juan rso tablet hours as n needed for Cancer moderate Center pain. cyclobenzap 3-0 2023- No Hip pain 10mg Take 1 Univers rine 9-11 -26 tablet (10 ity of (FLEXERIL) 00:00: 00:00 mg) [place] 10 mg 00 :00 mouth 3 MD tablet (three) Anderso times a n day as Cancer needed for Center muscle spasms. cyclobenzap 2022-0 3- No Hip pain 10mg Take 1 Univers rine 9-11 -26 tablet (10 ity of (FLEXERIL) 00:00: 00:00 mg) [place] 10 mg 00 :00 mouth 3 MD tablet (three) Anderso times a n day as Cancer needed for Center muscle spasms. cyclobenzap 3-0 2023- No Hip pain 10mg Take 1 Univers rine 9-11 -26 tablet (10 ity of (FLEXERIL) 00:00: 00:00 mg) [place] 10 mg 00 :00 mouth 3 MD tablet (three) Anderso times a n day as Cancer needed for Center muscle spasms. prochlorper 2023-0 Yes Estrogen 10mg Take 1 Univers azine 9-07 receptor tablet (10 ity of (Compazine) 00:00: positive mg) by [place] 10 mg 00 status mouth MD tablet (ER+) every 6 Anderso (six) n hours as Cancer needed for Center nausea or vomiting (not relieved by ondansetro n). loperamide Yes Estrogen Take 1 U nivers (IMODIUM) 2 - receptor capsule (2 ity of mg capsule 00:00: positive mg) [place] 00 status mouth at MD (ER+) the first Anderso onset of n diarrhea, Cancer then 1 Center capsule (2 mg) as needed for unresolved diarrhea. Total maximum daily dose of 8 mg. prochlorper Yes Estrogen 10mg Take 1 [facility] azine 9-07 receptor tablet (10 ity of (Compazine) 00:00: positive mg) by [place] 10 mg 00 status mouth MD tablet (ER+) every 6 Anderso (six) n hours as Cancer needed for Center nausea or vomiting (not relieved by ondansetro n). prochlorper Yes Estrogen 10mg Take 1 [facility] azine 9-07 receptor tablet (10 ity of (Compazine) 00:00: positive mg) by [place] 10 mg 00 status mouth MD tablet (ER+) every 6 Anderso (six) n hours as Cancer needed for Center nausea or vomiting (not relieved by ondansetro n). loperamide 2022- No Estrogen Take 1 Univers (IMODIUM) 2 07-17-24 receptor capsule (2 ity of mg capsule 00:00: 00:00 positive mg) by [place] 00 :00 status mouth at MD (ER+) the first Anderso onset of n diarrhea, Cancer then 1 Center capsule (2 mg) as needed for unresolved diarrhea. Total maximum daily dose of 8 mg. loperamide 2022- No Estrogen Take 1 Univers (IMODIUM) 2 -05 19-24 receptor capsule (2 ity of mg capsule 00:00: 00:00 positive mg) by [place] 00 :00 status mouth at (ER+) the first Anderso [...] on empty stomach. See pill diary. acetaminoph 2022- No Neoplasm 1{tbl} Take 1 [...] Cancer needed for Center moderate pain. albuterol 0 Yes Shortness 2{puff} Inhale 2 Univers (ProAir 8-18 of breath puffs by ity of HFA) 90 00:00: mouth [place] mcg/puff 00 every 6 MD inhaler (six) Anderso hours as n needed for Cancer wheezing Center or shortness of breath. albuterol 2022-0 Yes Shortness 2{puff} Inhale 2 Univers (ProAir [...] Back pain, 600mg Take 1 Univers (ADVIL,MOTR 8-18 08-18 not tablet ity o f IN) 600 [...] Back pain, 600mg Take 1 Univers (ADVIL,MOTR 8-18 08-18 not tablet ity o f [place]) 600 [...] Back pain, 600mg Take 1 Univers (ADVIL,MOTR 8-18 08-18 not tablet ity o f IN) 600 mg 00:00: 00:00 otherwise (600 mg) [place] tablet 00 :00 specified by mouth MD every 8 Anderso (eight) n hours as Cancer needed for Center moderate pain. [facility] 20[facility]- No Estrogen Take 2 U nivers (PIQRAY) 06-24 receptor tablets ity of 300 mg/day 00:00: 00:00 positive (300 mg) [place] (150 mg x 00 :00 status by mouth MD 2) tablet (ER+) once daily [facility] Estrogen Take 2 U nivers (PIQRAY) 06-24 receptor tablets ity of 300 mg/day 00:00: 00:00 positive (300 mg) [place] (150 mg x 00 :00 status by mouth 2) tablet (ER+) once daily And erso with [facility] 2022- No Estrogen Take 2 U nivers (PIQRAY) 06-24 receptor tablets ity of 300 mg/day 00:00: 00:00 positive (300 mg) [place] (150 mg x 00 :00 status by mouth 2) tablet (ER+) once daily And erso with [facility] acetaminoph 2022- No Neoplasm 1{tbl} Take 1 Univers en-codeine 06-13 related tablet by ity of (TYLENOL 00:00: 00:00 pain mouth 3 [place] #3) 300 00 :00 (acute) (three) MD mg-30 mg (chronic) times a And erso tablet day as n needed for Cancer moderate Center pain. acetaminoph 2022- No Neoplasm 1{tbl} Take 1 Univers en-codeine 06-13 related tablet by ity of (TYLENOL 00:00: 00:00 pain mouth 3 [place] #3) 300 00 :00 (acute) (three) MD mg-30 mg (chronic) times a And erso tablet day as n needed for Cancer moderate Center pain. acetaminoph 2022- No Neoplasm 1{tbl} Take 1 [facility] en-codeine 06-13 related tablet by ity of (TYLENOL 00:00: 00:00 pain mouth 3 [place] #3) 300 00 :00 (acute) (three) MD mg-30 mg (chronic) times a And erso tablet day as n needed for Cancer moderate Center pain. diphenhydrA 2022-0 2022- No 25mg Take 1 Uni vers MINE 06-07 capsule ity of (BENADRYL) 14:01: 00:00 (25 mg) by [place] 25 mg 12 :00 mouth MD capsule twice Anderso daily. n Cancer Center diphenhydrA 2022-0 2022- No 25mg Take 1 Uni vers MINE 06-07 capsule ity of (BENADRYL) 14:01: 00:00 (25 mg) by [place] 25 mg 12 :00 mouth MD capsule twice Anderso daily. n Cancer Center diphenhydrA 0 2022- No 25mg Take 1 Uni vers MINE 06-07 capsule ity of (BENADRYL) 14:01: 00:00 (25 mg) by [place] 25 mg 12 :00 mouth MD capsule twice Anderso daily. n Cancer Center lactulose 0 Yes Metastatic 20g Take 30 mL Univers (CHRONULAC) 06-07 malignant (20 g) by ity of 10 gram/15 00:00: neoplasm to mouth 2 [place] mL solution 00 bone (two) MD times a Anderso day as n needed Cancer (constipat Center ion). lactulose 0 Yes Metastatic 20g Take 30 mL Univers (CHRONULAC) 7 malignant (20 g) by ity of 10 gram/15 00:00: neoplasm to mouth 2 [place] mL solution 00 bone (two) MD times a Anderso day as n needed Cancer (constipat Center ion). lactulose 0 Yes Metastatic 20g Take 30 mL Univers (CHRONULAC) - malignant (20 g) by ity of 10 gram/15 00:00: neoplasm to mouth 2 [place] mL solution 00 bone (two) MD times a Anderso day as n needed Cancer (constipat Center ion). HYDROmorpho 2022-0 2022- No Metastatic 2mg Take 1 Univers ne 06-07 08-23 malignant tablet (2 ity of (DILAUDID) 00:00: 00:00 neoplasm to mg) by [place] 2 mg tablet 00 :00 bone mouth MD every 4 Anderso (four) n hours as Cancer needed for Center moderate pain. HYDROmorpho 2022- No Metastatic 2mg Take 1 [facility] 06-07 malignant tablet (2 ity of (DILAUDID) 00:00: 00:00 neoplasm to mg) by [place] 2 mg tablet 00 :00 bone mouth every 4 Anderso (four) n hours as Cancer needed for Center moderate pain. HYDROmorpho 2022- No Metastatic 2mg Take 1 [facility] 06-07 malignant tablet (2 ity of (DILAUDID) 00:00: 00:00 neoplasm to mg) by [place] 2 mg tablet 00 :00 bone mouth every 4 Anderso (four) n hours as Cancer needed for Center moderate pain. milk 2022- No Take by [facility] thistle/NAC 06-05 mouth. ity o f /dandel/tur 12:36: 00:00 [place] kalpana (LIVER 40 :00 MD CAZARES Anderso ORAL) n Cancer Center milk 2022- No Take by [facility] thistle/NAC 06-05 mouth. ity o f /dandel/tur 12:36: 00:00 [place] kalpana (LIVER 40 :00 MD CAZARES Anderso ORAL) n Cancer Center milk 2022- No Take by [facility] thistle/NAC 06-05 mouth. ity o f /dandel/tur 12:36: 00:00 [place] kalpana (LIVER 40 :00 MD CAZARES Anderso ORAL) n Cancer Center lidocaine 4 2022- No 1{patch Place 1 Univers % ptmd 06-05 } patch on ity of 12:36: 00:00 the skin [place] 28 :00 as needed. Remove & Anderso Discard n patch Cancer within 12 Center hours or as directed by . Remove old patch(es) before replacing new patch(es). lidocaine 4 2022- No 1{patch Place 1 Univers % ptmd 06-05 } patch on ity of 12:36: 00:00 the skin [place] 28 :00 as needed. Remove & Anderso Discard n patch Cancer within 12 Center [...] 2022- No Hydronephro TAKE 1 [facility] sulfate 05-08 sis, not TABLET BY it y of (ANASPAZ) 00:00: 00:00 otherwise MOUTH [place] 0.125 mg 00 :00 specified EVERY 6 MD disintegrat HOURS Juan rso ing tablet NEEDED ( n BLADDER Cancer SPASMS) [place] hyoscyamine 2022- No Hydronephro TAKE 1 [facility] sulfate 05-08 sis, not TABLET BY it y of (ANASPAZ) 00:00: 00:00 otherwise MOUTH [place] 0.125 mg 00 :00 specified EVERY 6 MD disintegrat HOURS Juan rso ing tablet NEEDED ( n BLADDER Cancer SPASMS) [place] hyoscyamine 2022- No Hydronephro TAKE 1 [facility] sulfate 05-08 sis, not TABLET BY it y of (ANASPAZ) 00:00: 00:00 otherwise MOUTH [place] 0.125 mg 00 :00 specified EVERY 6 MD disintegrat HOURS Juan rso ing tablet NEEDED ( n BLADDER Cancer SPASMS) [place] venlafaxine Yes 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 [facility] alpelisib 2022- No Estrogen Take 2 U nivers (PIQRAY) 04-30 receptor tablets ity of 300 mg/day 00:00: 00:00 positive (300 mg) [place] (150 mg x 00 :00 status by mouth MD 2) tablet (ER+) once daily And erso with food [facility] alpelisib 2022- No Estrogen Take 2 U nivers (PIQRAY) 04-30 receptor tablets ity of 300 mg/day 00:00: 00:00 positive (300 mg) [place] (150 mg x 00 :00 status by mouth MD 2) tablet (ER+) once daily And erso with food [facility] alpelisib 2022- No Estrogen Take 2 U nivers (PIQRAY) 04-30 receptor tablets ity of 300 mg/day 00:00: 00:00 positive (300 mg) [place] (150 mg x 00 :00 status by mouth 2) tablet (ER+) once daily And erso with food [facility] ciprofloxac 2022- No 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 [facility] acetaminoph 2022- No Neoplasm TAKE 1 Univers en-codeine 04-28 related TABLET BY ity of (TYLENOL 00:00: 00:00 pain MOUTH [place] #3) 300 00 :00 (acute) TWICE MD mg-30 mg (chronic) DAILY An derso tablet NEEDED FOR n MODERATE Cancer PAIN Center acetaminoph 2022-0 2022- No Neoplasm TAKE 1 [facility] en-codeine 04-28 related TABLET BY ity of (TYLENOL 00:00: 00:00 pain MOUTH [place] #3) 300 00 :00 (acute) TWICE MD mg-30 mg (chronic) DAILY An derso tablet NEEDED FOR n MODERATE Cancer PAIN Center acetaminoph 2022-0 2022- No Neoplasm TAKE 1 [facility] en-codeine 04-28 related TABLET BY ity of (TYLENOL 00:00: 00:00 pain MOUTH [place] #3) 300 00 :00 (acute) TWICE MD mg-30 mg (chronic) DAILY An derso tablet NEEDED FOR n MODERATE Cancer PAIN Center benzonatate 0 Yes [id number] 200mg Take 2 Univers 100 mg 5-12 capsules ity of capsule 00:00: by mouth [place] 00 every 8 Medical (eight) Branch hours as needed for Cough. cetirizine 0 Yes [id number] 10mg Take 1 U nivers (ZYRTEC) 10 5-12 tablet by ity of mg tablet 00:00: [facility] Medical morning. Branch azelastine 0 Yes [id number] 1{spray Use 1 Univers 137 mcg 5-12 } [place] in ity of (0.1 %) 00:00: each [place] nasal spray 00 nostril in Wi dical the Branch morning and 1 [place] in the evening. Use in each nostril as directed fluticasone 2022-0 Yes [id number] 1{spray Use 1 Univers propionate 5-12 } [place] in ity o f 50 00:00: each [place] mcg/actuati 00 nostril in Wi dical on nasal the Branch spray morning. amoxicillin 2022-0 2022- No [id number] 1{tbl} Take 1 Univers -clavulanat 5-12 05-20 tablet by it y of e 00:00: 04:59 mouth in [place] (AUGMENTIN) 00 :00 the Medical 875-125 mg morning Branch per tablet and 1 tablet in the evening. Do all this for 7 days. blood-gluco 0 2022- No Metastatic Use as Univers se meter 4-28 09-26 malignant instructed ity of kit 00:00: 00:00 neoplasm to [place] 00 :00 bone MD Klaudia [facility] blood-gluco 2022- No Metastatic Use as Univers se meter 03-07 malignant instructed ity of kit 00:00: 00:00 neoplasm to [place] 00 :00 bone MD Klaudia gibbs [facility] blood-gluco 2022- No Metastatic Use as Univers se meter 03-07 malignant instructed ity of kit 00:00: 00:00 neoplasm to [place] 00 :00 bone MD Klaudia [facility] lancets 2022- No Metastatic 30U 30 Units [facility] [facility] [place] [facility] 03-07 malignant by see ity of 00:00: 04:59 neoplasm to administra [place] 00 :00 bone javi bryant route n daily for Cancer 30 days. Center Use one lancet daily before breakfast for blood sugar monitoring lancets 2022- No Metastatic 30U 30 Units [facility] [facility] [place] 03-07 malignant by see ity of 00:00: 04:59 neoplasm to administra [place] 00 :00 babar bryant route n daily for Cancer 30 days. Center Use one lancet daily before breakfast for blood sugar monitoring lancets 2022- No Metastatic 30U 30 Units [facility] [facility] [place] 03-07 malignant by see ity of 00:00: 04:59 neoplasm to administra [place] 00 :00 babar bryant route n daily for Cancer 30 days. Center Use one lancet daily before breakfast for blood sugar monitoring blood sugar 2022- No Estrogen 1{strip 1 strip by [facility] diagnostic 03-06 receptor } miscellane ity of (glucose 00:00: 04:59 positive ous route [place] blood) strp 00 :00 status before MD (ER+) breakfast Anderso for 30 n days. [facility] Center blood sugar 2022- No Estrogen 1{strip 1 strip by [facility] diagnostic 03-06 receptor } miscellane ity of (glucose 00:00: 04:59 positive ous route [place] blood) strp 00 :00 status before MD (ER+) breakfast Anderso for 30 n days. Cancer Center blood sugar No Estrogen 1{strip 1 strip by Univers diagnostic 03-06 receptor } miscellane ity of (glucose 00:00: 04:59 positive ous route [place] blood) strp 00 :00 status before MD (ER+) breakfast Anderso for 30 n days. Cancer Center acetaminoph 2022- No Neoplasm 1{tbl} Take 1 [facility] en-codeine 03-05 related tablet by ity of (TYLENOL 00:00: 00:00 pain mouth 2 [place] #3) 300 00 :00 (acute) (two) MD mg-30 mg (chronic) times a And erso tablet day as n needed for Cancer moderate Center pain. acetaminoph 2022- No Neoplasm 1{tbl} Take 1 [facility] en-codeine 03-05 related tablet by ity of (TYLENOL 00:00: 00:00 pain mouth 2 [place] #3) 300 00 :00 (acute) (two) MD mg-30 mg (chronic) times a And erso tablet day as n needed for Cancer moderate Center pain. acetaminoph 2022- No Neoplasm 1{tbl} Take 1 [facility] en-codeine 03-05 related tablet by ity of (TYLENOL 00:00: 00:00 pain mouth 2 [place] #3) 300 00 :00 (acute) (two) MD mg-30 mg (chronic) times a And erso tablet day as n needed for Cancer moderate Center pain. ibuprofen 2022- No TAKE 1 Unive rs (ADVIL,MOTR 3- 05-24 TABLET BY it y of IN) 800 mg 00:00: 00:00 MOUTH [place] tablet 00 :00 EVERY 6 MD HOURS WITH Anderso FOOD n Cancer Center ibuprofen 2022- No TAKE 1 Unive rs (ADVIL,MOTR 3-21 05-24 TABLET BY it y of IN) 800 mg 00:00: 00:00 MOUTH [place] tablet 00 :00 EVERY 6 MD HOURS WITH Anderso FOOD n Cancer Center ibuprofen 2022- No TAKE 1 Unive rs (ADVIL,MOTR 3-21 05-24 TABLET BY it y of IN) 800 mg 00:00: 00:00 MOUTH [place] tablet 00 :00 EVERY 6 [facility] ALPRAZolam 2022- No .25mg Take 1 Uni vers (XANAX) 01-09 tablet ity of 0.25 mg 00:00: 00:00 (0.25 mg) [place] tablet 00 :00 by mouth MD at [facility]. [facility] ALPRAZolam 2022- No .25mg Take 1 Uni vers (XANAX) 01-09 tablet ity of 0.25 mg 00:00: 00:00 (0.25 mg) [place] tablet 00 :00 by mouth MD at [facility]. [facility] ALPRAZolam 2022- No .25mg Take 1 Uni vers (XANAX) 01-09 tablet ity of 0.25 mg 00:00: 00:00 (0.25 mg) [place] tablet 00 :00 by mouth MD at [facility]. [facility] palbociclib 2022- No 100mg Take 1 Un tam[place] (IBRANCE) 01-08 capsule ity of 100 mg 09:49: 00:00 (100 mg) [place] capsule 47 :00 by mouth MD daily. [facility] palbociclib 2022- No 100mg Take 1 Un [place] (IBRANCE) 01-08 capsule ity of 100 mg 09:49: 00:00 (100 mg) [place] capsule 47 :00 by mouth MD daily. [facility] palbociclib 2022- No 100mg Take 1 Un [place] (IBRANCE) 01-08 capsule ity of 100 mg 09:49: 00:00 (100 mg) [place] capsule 47 :00 by mouth MD daily. [facility] traZODone 2022- No 100mg Take 1 Univ ers (DESYREL) 12-04 tablet ity of 100 mg 12:33: 00:00 (100 mg) [place] tablet 08 :00 by mouth MD daily. [facility] traZODone 2022- No 100mg Take 1 Univ ers (DESYREL) 12-04 tablet ity of 100 mg 12:33: 00:00 (100 mg) [place] tablet 08 :00 by mouth MD daily. [facility] Cancer [place] traZODone 2022- No 100mg Take 1 Univ ers (DESYREL) 12-04 tablet ity of 100 mg 12:33: 00:00 (100 mg) [place] tablet 08 :00 by mouth [facility] pro[facility]per 2022- No Metastatic Take 1 Univers azine 12-04 malignant tablet by ity of (Compazine) 00:00: 00:00 neoplasm to mouth [place] 10 mg 00 :00 bone every 6 MD tablet hours as Anderso needed for n nausea/vom Cancer ing [place] alpelisib 2022- No Estrogen Take 2 U nivers (PIQRAY) 12-0424 receptor tablets ity of 300 mg/day 00:00: 00:00 positive (300 mg) [place] (150 mg x 00 :00 status by mouth MD 2) tablet (ER+) once daily And erso with [facility] Cancer [place] prochlorper 2022- No Metastatic Take 1 Univers azine 12-04- malignant tablet by ity of (Compazine) 00:00: 00:00 neoplasm to mouth [place] 10 mg 00 :00 bone every 6 MD tablet hours as Anderso needed for n nausea/vom Cancer [facility] alpelisib 2022- No Estrogen Take 2 U nivers (PIQRAY) 12-04-24 receptor tablets ity of 300 mg/day 00:00: 00:00 positive (300 mg) [place] (150 mg x 00 :00 status by mouth MD 2) tablet (ER+) once daily And erso with food Cancer [place] prochlorper 2022- No Metastatic Take 1 Univers azine 12-04- malignant tablet by ity of (Compazine) 00:00: 00:00 neoplasm to mouth [place] 10 mg 00 :00 bone every 6 MD tablet hours as Anderso needed for n nausea/vom Cancer [facility] alpelisib 2022- No Estrogen Take 2 U nivers (PIQRAY) 12-0424 receptor tablets ity of 300 mg/day 00:00: 00:00 positive (300 mg) [place] (150 mg x 00 :00 status by mouth MD 2) tablet (ER+) once daily And erso with food [facility] palbociclib 2022- No Estrogen 100mg Take 1 [...] [place] capsule 00 :00 bone by mouth at [facility]. [facility] gabapentin 2021-11- No Metastatic 600mg Take 2 Univers (NEURONTIN) 12-26 malignant capsules ity of 300 mg 00:00: 00:00 neoplasm to (600 mg) [place] capsule 00 :[facility] gab[facility]entin 2021-11- No Metastatic 600mg Take 2 Univers (NEURONTIN) 12-26 malignant capsules ity of 300 mg 00:00: 00:00 neoplasm to (600 mg) [place] capsule 00 :00 bone by mouth at [facility] bedtime. [facility] acetaminoph 2022-1 2023- No Metastatic TAKE 1 [facility] en-codeine 12-07- malignant TABLET BY ity of (TYLENOL 00:00: 00:00 neoplasm to MOUTH [place] #3) 300 00 :00 bone THREE MD mg-30 mg TIMES Anderso tablet DAILY n NEEDED FOR Cancer MODERATE Center PAIN acetaminoph 2021-11- No Metastatic TAKE 1 Univers en-codeine 12-07- malignant TABLET BY ity of (TYLENOL 00:00: 00:00 neoplasm to MOUTH [place] #3) 300 00 :00 bone THREE MD mg-30 mg TIMES Anderso tablet DAILY n NEEDED FOR Cancer MODERATE Center PAIN acetaminoph 2021-11- No Metastatic TAKE 1 Univers en-codeine 12-07- malignant TABLET BY ity of (TYLENOL 00:00: 00:00 neoplasm to MOUTH [place] #3) 300 00 :00 bone THREE MD mg-30 mg TIMES Anderso tablet DAILY n NEEDED FOR Cancer MODERATE Center PAIN palbociclib 2021-11- No 100mg Take 100 Univers (IBRANCE) 0-27 10-27 mg by ity of 125 mg 11:08: 00:00 mouth [place] capsule 29 :00 daily. Every 21 Anderso days [facility] palbociclib 2021-11- No 100mg Take 100 Univers (IBRANCE) 0-27 10-27 mg by ity of 125 mg 11:08: 00:00 mouth [place] capsule 29 :00 daily. Every 21 Anders[facility] days [facility] palbociclib 2021-11- No 100mg Take 100 Univers (IBRANCE) 0-27 10-27 mg by ity of 125 mg 11:08: 00:00 mouth [place] capsule 29 :00 daily. Every 21 Anderso days [facility] doxycycline 2021-11- No Lymphedema 100mg Take 1 Univers (Vibramycin 0-25 05-24 capsule ity of ) 100 MG 00:00: 00:00 (100 mg[place]00 by mouth twice [facility] daily. [facility] doxycycline 2021-11- No Lymphedema 100mg Take 1 Univers (Vibramycin 0-25 05-24 capsule ity of ) 100 MG 00:00: 00:00 (100 mg[place] :00 by mouth twice [facility] daily. n [facility] doxycycline 2021-11- No Lymphedema 100mg Take 1 Univers (Vibramycin 0-25 05-24 capsule ity of ) 100 MG 00:00: 00:00 (100 mg[place] :00 by mouth MD twice Anderso daily. 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 tamsulosin 2022- No Hydronephro .4mg Take 1 Univers (FLOMAX) 07-04 sis due to capsule i ty of 0.4 mg 24 00:00: 00:00 ureteral (0.4 mg) [place] hr capsule 00 :00 obstruction by mouth MD daily as Anderso needed for n stent Cancer pain/left Center flank pain. tamsulosin 2022- No Hydronephro .4mg Take 1 Univers (FLOMAX) 07-04 sis due to capsule i ty of [...] [place] capsule 00 :00 bone by mouth at Anderso bedtime. [facility] gabapentin 2021- No Metastatic 300mg Take 1 Univers (NEURONTIN) 05-23 malignant capsule ity of 300 mg 00:00: 00:00 neoplasm to (300 mg) [place] capsule 00 :00 bone by mouth at Anderso bedtime. [facility] gabapentin 2021- No Metastatic 300mg Take 1 Univers (NEURONTIN) 05-23 malignant capsule ity of 300 mg 00:00: 00:00 neoplasm to (300 mg) [place] capsule 00 :00 bone by mouth at Anderso bedtime. [facility] venlafaxine 2022- No Metastatic 37.5mg Take 1 Univers (Effexor 04-18 malignant capsule it y of XR) 37.5 mg 00:00: 00:00 neoplasm to (37.5 mg) [place] 24 hr 00 :00 bone by mouth MD capsule every Anderso morning. [facility] venlafaxine 2022- No Metastatic 37.5mg Take 1 Univers (Effexor 04-18 malignant capsule it y of XR) 37.5 mg 00:00: 00:00 neoplasm to (37.5 mg) [place] 24 hr 00 :00 bone by mouth MD capsule every Anderso morning. [facility] venlafaxine 2022- No Metastatic 37.5mg Take 1 Univers (Effexor 04-18 malignant capsule it y of XR) 37.5 mg 00:00: 00:00 neoplasm to (37.5 mg) [place] 24 hr 00 :00 bone by mouth MD capsule every Anderso morning. [facility] letrozole 2022- No Metastatic 2.5mg Take 1 Univers (FEMARA) 03-19 malignant tablet ity of 2.5 mg 00:00: 00:00 neoplasm to (2.5 mg) [place] tablet 00 :00 bone by mouth MD daily. [facility] letrozole 2022- No Metastatic 2.5mg Take 1 Univers (FEMARA) 03-19 malignant tablet ity of 2.5 mg 00:00: 00:00 neoplasm to (2.5 mg) [place] tablet 00 :00 bone by mouth MD daily. [facility] letrozole 2022- No Metastatic 2.5mg Take 1 Univers (FEMARA) 03-19 malignant tablet ity of 2.5 mg 00:00: 00:00 neoplasm to (2.5 mg) [place] tablet 00 :00 bone by mouth MD daily. [facility] venlafaxine 2022- No TAKE 1 Uni vers (EFFEXOR-XR -06 14-24 CAPSULE BY i ty of ) 37.5 mg 00:00: 00:00 MOUTH [place]CE [place] 24 [place] 00 :00 DAILY WITH MD capsule FOOD FOR [facility] Joselin ANXIETY Cancer DISORDER [place] venlafaxine 2022- No TAKE 1 Uni vers (EFFEXOR-XR - 05-24 CAPSULE BY i ty of ) 37.5 mg 00:00: 00:00 MOUTH [place]CE [place] 24 [place] 00 :00 DAILY WITH MD capsule FOOD FOR [facility] ANXIETY Cancer DISORDER Center venlafaxine 2022- No TAKE 1 Uni vers (EFFEXOR-XR 12-18 CAPSULE BY janina morel ) 37.5 mg 00:00: 00:00 MOUTH ONCE [place] 24 [place] 00 :00 DAILY WITH MD capsule FOOD FOR Anderso GENERALIZE n D ANXIETY Cancer DISORDER Center ondansetron 2022- No Nausea 8mg Take 1 U nivers (ZOFRAN) 8 11-22 05-24 tablet (8 ity of mg tablet 00:00: 00:00 mg) by [place] 00 :00 mouth MD every 8 Anderso [...] of mg tablet 00:00: 00:00 mg) by [place] 00 :00 mouth MD every 8 Anderso (eight) n hours as Cancer needed for Center nausea. prochlorper 2022- No Nausea 10mg Take 1 U nivers azine 13 05-24 tablet (10 ity of (Compazine) 00:00: 00:00 mg) by [place] 10 mg 00 :00 mouth MD tablet every 6 Anderso (six) n hours as Cancer needed for Center nausea or vomiting. ondansetron 2022- No Nausea 8mg Take 1 U nivers (ZOFRAN) 8 1-13 05-24 tablet (8 ity of mg tablet 00:00: 00:00 mg) by [place] 00 :00 mouth MD every 8 Anderso [...] ity of 40 MG 00:00: MOUTH IN [place] capsule 00 [facility] omeprazole 2022- No TAKE 1 Univ ers (PriLOSEC) 11-18 CAPSULE BY it y of 40 MG 00:00: 00:00 MOUTH IN [place] capsule 00 :00 [facility] omeprazole 2022- No TAKE 1 Univ ers (PriLOSEC) 11-18 CAPSULE BY it y of 40 MG 00:00: 00:00 MOUTH IN [place] capsule 00 :00 [facility] ALPRAZolam 2022- No TAKE 1 Univ ers (XANAX) 0.5 11-16 TABLET BY it y of mg tablet 00:00: 00:00 MOUTH ONCE [place] 00 :00 DAILY. MD [facility] ALPRAZolam 2022- No TAKE 1 Univ ers (XANAX) 0.5 11-16 TABLET BY it y of mg tablet 00:00: 00:00 MOUTH ONCE [place] 00 :00 DAILY. MD [facility] ALPRAZolam 2022- No TAKE 1 Univ ers (XANAX) 0.5 11-16 TABLET BY it y of mg tablet 00:00: 00:00 MOUTH ONCE [place] 00 :00 DAILY. MD [facility] [employer] Thyroid 2020-11 Yes TAKE 1 Unive rs 120 mg tab 2-30 TABLET BY ity of tablet 00:00: MOUTH ONCE 00 DAILY MD [facility] [employer] Thyroid 2020-11 Yes TAKE 1 Unive rs 120 mg tab 2-30 TABLET BY ity of tablet 00:00: MOUTH ONCE [place] 00 DAILY MD [facility] [employer] Thyroid 2020-11 Yes TAKE 1 Unive rs 120 mg tab 2-30 TABLET BY ity of tablet 00:00: MOUTH ONCE [place] 00 DAILY MD [facility] acetaminoph 2020-11- No TAKE 1 Uni vers en-codeine 03-05 TABLET BY ity of (TYLENOL 00:00: 00:00 MOUTH [place] #3) 300 00 :00 EVERY 6 MD mg-30 mg HOURS Anderso tablet NEEDED FOR n PAIN WHEN Cancer AWAKE Center acetaminoph 2020-11- No TAKE 1 Uni vers en-codeine 03-05 TABLET BY ity of (TYLENOL 00:00: 00:00 MOUTH [place] #3) 300 00 :00 EVERY 6 MD mg-30 mg HOURS Anderso tablet NEEDED FOR n PAIN WHEN Cancer AWAKE Center acetaminoph 2020-11- No TAKE 1 Uni vers en-codeine 03-05 TABLET BY ity of (TYLENOL 00:00: 00:00 MOUTH [place] #3) 300 00 :00 EVERY 6 MD mg-30 mg HOURS Anderso tablet NEEDED FOR n PAIN WHEN Cancer AWAKE Center letrozole 2020-11- No TAKE 1 Unive rs (FEMARA) 01-03 TABLET BY ity o f 2.5 mg 00:00: 00:00 [place]CE [place] tablet 00 :00 [facility] No TAKE 1 Unive rs (FEMARA) 01-03 TABLET BY ity o f 2.5 mg 00:00: 00:00 [place]TH [place]CE [place] tablet 00 :00 [facility]- No TAKE 1 Unive rs (FEMARA) 01-03 TABLET BY ity o f 2.5 mg 00:00: 00:00 M[place]TH [place]CE [place] tablet 00 :00 DAILY MD [facility] Constulose 2020-11- No TAKE 10 Uni vers 10 gram/15 - 07-27 GRAMS ONCE it y of mL solution 00:00: 00:00 DAILY FOR [place] 00 :00 CONSTIPATI MD DAWKINS [facility] Constulose 2020-11- No TAKE 10 Uni vers 10 gram/15 -30 07-27 GRAMS ONCE it y of mL solution 00:00: 00:00 DAILY FOR [place] 00 :00 CONSTIPATI MD DAWKINS [facility] Constulose 2020-11- No TAKE 10 Uni vers 10 gram/15 1-30 07-27 GRAMS ONCE it y of mL solution 00:00: 00:00 DAILY FOR [place] 00 :00 CONSTIPATI MD ON [facility] Ventolin 2020-11- No 1{puff} Inhale 1 U [...] of mg tablet 00:00: 00:00 mg) by [place] 00 :00 mouth MD nightly as Anderso [...] No 20mg Take 1 Univ ers (PEPCID) 11-28 tablet (20 i ty of mg tablet 00:00: 00:00 mg) by [place] 00 :00 mouth MD nightly as Anderso [...] of mg tablet 00:00: 00:00 mg) by [place] 00 :00 mouth MD nightly as Anderso needed for n indigestio Cancer n, Center heartburn or reflux. multivitami 2018 Yes 1{capsu QD Take 1 M ethodi [...] day. as directed - ALPRAZolam Yes .5mg [id number] Take 0.5 Methodi (XANAX) 0.5 9-24 [id number] mg by s t MG tablet 00:00: 3D mouth 3 Hospi ta 00 (three) l times a day as needed. ALPRAZolam Yes .5mg [id number] Take 0.5 [facility] (XANAX) 0.5 9-24 [id number] mg by s t MG tablet 00:00: 3D mouth 3 Hospi ta 00 (three) l times a day as needed. ALPRAZolam Yes .5mg [id number] Take 0.5 [facility] (XANAX) 0.5 9-24 [id number] mg by s t MG tablet 00:00: 3D mouth 3 Hospi ta 00 (three) l times a day as needed. ALPRAZolam Yes .5mg [id number] Take 0.5 [facility]i (XANAX) 0.5 9-24 [id number] mg by s t MG tablet 00:00: [...] SARS-CoV-2 Unknown Completed Univer sity of Vaccination [place] [facility] Moderna SARS-CoV-2 Unknown Completed Univer sity of Vaccination [place] [facility] Tdap Unknown Completed [facility] Moderna SARS-CoV-2 Unknown Completed Univer sity of Vaccination [place] [facility] Moderna SARS-CoV-2 Unknown Completed Univer sity of Vaccination [place] [facility] Tdap Unknown Completed [facility] Moderna SARS-CoV-2 Unknown Completed Univer sity of Vaccination [place] [facility] Moderna SARS-CoV-2 Unknown Completed Univer sity of Vaccination [place] [facility] Tdap Unknown Completed [facility] Vital Signs Vital Name Observation Time Observation Value Comments Source Systolic blood 2023-03-21 19:40:00 121 mm[Hg] Univer sity of pressure [facility] Diastolic blood 2023-03-21 19:40:00 85 mm[Hg] Unive rsity of pressure [facility] Heart rate 2023-03-21 19:40:00 73 /min [facility] Body temperature 2023-03-21 19:40:00 36.78 Miroslava [facility] [place] [facility] Respiratory rate 2023-03-21 19:40:00 16 /min [facility] [place] [facility] Body height 2023-03-21 19:40:00 157.5 cm [facility] [place] [facility] Body weight 2023-03-21 19:40:00 70.449 kg [facility] [place] [facility] BMI 2023-03-21 19:40:00 28.41 kg/m2 Universi ty of [facility] Oxygen saturation in 2023-03-21 19:40:00 96 /min University of Arterial blood by [facility] Pulse oximetry Branch Systolic blood 2022-03-29 00:30:00 155 mm[Hg] Univer sitnicho of pressure [facility] Diastolic blood 2022-03-29 00:30:00 83 mm[Hg] Unive rsity of [facility] Heart rate 2022-03-29 00:30:00 84 /min [facility] [place] [facility] [place] Body temperature 2022-03-29 00:30:00 37 Miroslava [facility] ersity [facility] [place] [facility] Respiratory rate 2022-03-29 00:30:00 20 /min Univ [facility] [place] [facility] Body height 2022-03-29 00:30:00 157.5 cm [facility] [place] [facility] Body weight 2022-03-29 00:30:00 65.318 kg [facility] [place] [facility] BMI 2022-03-29 00:30:00 26.34 kg/m2 Universi ty of [facility] Branch Oxygen saturation in 2022-03-29 00:30:00 100 /min University of Arterial blood by [facility] Pulse oximetry Branch Heart rate 2023-09-03 18:25:00 90 /min Universi ty of [facility] Respiratory rate 2023-09-03 18:25:00 20 /min Univ ersayleen of [facility] Oxygen saturation in 2023-09-03 18:25:00 100 /min University of Arterial blood by Estela castanon Pulse oximetry Cancer Center Systolic blood 2023-09-03 12:59:56 132 mm[Hg] Univer inderjit of pressure [facility] [...] Oxygen saturation in 2023-08-14 19:50:00 96 /min [facility] Arterial blood by Estela castanon Pulse oximetry Cancer Center Body height 2023-08-11 18:50:25 157.5 cm Universi ty of [facility] Body weight 2023-08-11 18:50:25 66.1 kg Universi ty of [facility] BMI 2023-08-11 18:50:25 26.65 kg/m2 Universi ty of [facility] Procedures Procedure Date / Time Performing Clinician Source Performed POC GLUCOSE SCREEN 2023-09-03 13:27:00 [facility] [place] [facility] OSCILLATORY PEP 2023-09-03 03:37:35 Guillermo [facility] [place] [facility] CT CHEST W CONTRAST 2023-09-02 20:27:00 Aden Muñoz [facility] [place] [facility] POC GLUCOSE SCREEN 2023-09-02 13:19:00 Fu, [facility] Center POC GLUCOSE SCREEN 2023-09-02 01:37:00 Fu, [facility] Center POC GLUCOSE SCREEN 2023-09-01 17:10:00 Fu, [facility] er Center POC GLUCOSE SCREEN 2023-09-01 12:26:00 Fu, [facility] COMPREHENSIVE METABOLIC 2023-09-01 11:56:00 Melissa Tino [facility] PANEL [facility] er Center MAGNESIUM LEVEL 2023-09-01 11:56:00 Melissa [facility] PHOSPHORUS LEVEL 2023-09-01 11:56:00 [facility] COMPLETE BLOOD COUNT W/ 2023-09-01 11:55:00 Melissa [facility] .CBC 2023-09-01 11:55:00 Melissa [facility] Center POC GLUCOSE SCREEN 2023-09-01 04:39:00 Fu, [facility] Center POC GLUCOSE SCREEN 2023-09-01 01:12:00 Fu, [facility] US ARM VENOUS DOPPLER RIGHT 2023-09-01 00:38:00 Aric Dewitt [facility] Center BLOOD CULTURE 2023-08-31 21:28:00 Marita [place] [facility] er Center POC GLUCOSE SCREEN 2023-08-31 19:23:00 Fu, [facility] er Center POC GLUCOSE SCREEN 2023-08-31 14:24:00 Fu, [facility] XR CHEST 1 VW PORTABLE 2023-08-31 14:16:26 [facility] COMPLETE BLOOD COUNT W/ 2023-08-31 12:22:00 Tino Torres [facility] Center COMPREHENSIVE METABOLIC 2023-08-31 12:22:00 Tino Torres [facility] [place] MAGNESIUM LEVEL 2023-08-31 12:22:00 Melissa [facility] Center PHOSPHORUS LEVEL 2023-08-31 12:22:00 Melissa [facility] .CBC 2023-08-31 12:22:00 Melissa [facility] [place] NT PRO BNP 2023-08-31 12:22:00 Aric Dewitt [facility] [place] US LEG VENOUS DOPPLER RIGHT 2023-08-31 05:18:44 Howard Helms [facility] POC GLUCOSE SCREEN 2023-08-31 03:33:00 Fu, [facility] er Center POC GLUCOSE SCREEN 2023-08-30 23:11:00 Fu, [facility] er Center POC GLUCOSE SCREEN 2023-08-30 16:42:00 Fu, [facility] Center COMPLETE BLOOD COUNT W/ 2023-08-30 11:02:00 Tino Torres [facility] Center COMPREHENSIVE METABOLIC 2023-08-30 11:02:00 Melissa Tino [facility] [place] MAGNESIUM LEVEL 2023-08-30 11:02:00 Melissa [facility] er Center PHOSPHORUS LEVEL 2023-08-30 11:02:00 e[facility]issa [facility] .CBC 2023-08-30 11:02:00 Melissa [facility] er Center POC GLUCOSE SCREEN 2023-08-30 04:31:00 Fu, [facility] er Center POC GLUCOSE SCREEN 2023-08-29 23:44:00 Fu, [facility] er Center CYSTOURETHROSCOPY WITH 2023-08-29 20:35:00 Adibi, [facility] INSERTION OF INDWELLING Tayo son Cancer URETERAL STENT Center PORTABLE FLOUROSCOPY 2023-08-29 20:35:[address] [facility] (C-ARM) [facility] RETROGRADE UROGRAPHY 2023-08-29 20:35:00 Anastacia Thomas [facility] POC GLUCOSE SCREEN 2023-08-29 18:10:00 Balbina Li [facility] GENERAL LABORATORY ADD ON 2023-08-29 16:32:00 Nga Dorado [facility] TEST [facility] COMPLETE BLOOD COUNT W/ 2023-08-29 12:12:00 Melissa [facility] DIFFERENTIAL [facility] COMPREHENSIVE METABOLIC 2023-08-29 12:12:00 Melissa [facility] PANEL [facility] MAGNESIUM LEVEL 2023-08-29 12:12:00 Melissa [facility] PHOSPHORUS LEVEL 2023-08-29 12:12:00 [facility] .CBC 2023-08-29 12:12:00 Melissa [facility] DIFFERENTIAL 2023-08-29 12:12:00 Melissa [facility] GLUCOSE LEVEL 2023-08-29 12:12[facility] BLO[facility] UREA NITROGEN 2023-08-29 12:12:00 Tino Torres [facility] ELECTROLYTE PANEL 2023-08-29 12:12:00 [facility] SERUM CREATININE 2023-08-29 12:12:00 [facility] .GLOMERULAR FILTRATION RATE 2023-08-29 12:12:00 [facility] CALCIUM LEVEL 2023-08-29 12:12:00 [facility] ALB[facility]IN L[facility]EL 2023-08-29 12:12:00 Melissa [facility] ALKALINE PHOSPHATASE 2023-08-29 12:12:00 Tino Torres [facility] ALANINE AMINOTRANSFERASE 2023-08-29 12:12:00 [facility] ASPARTATE AMINOTRANSFERASE 2023-08-29 12:12:00 [facility] TOTAL PROTEIN 2023-08-29 12:12:00 Melissa [facility] FRACTIONATED BILIRUBIN 2023-08-29 12:12:00 Tino Torres [facility] HEMOGLOBIN A1C 2023-08-29 12:12:00 Melissa [facility] PREPARE RBC 2023-08-28 17:26:00 [facility] TYPE AND SCREEN 2023-08-28 16:24:00 [facility] ABORH 2023-08-28 16:24:00 [facility] ANTIBODY S[facility]EN 2023-08-28 16:24:00 [facility] TMP INTERPRETATION ANTIBODY 2023-08-28 16:[facility] CLOT EXPIRATION DATE 2023-08-28 16:24:00 Aden Muñoz [facility] COMPLETE BLOOD COUNT W/ 2023-08-28 10:30:00 Tino Torres [facility] DIFFERENTIAL [facility] COMPREHENSIVE METABOLIC 2023-08-28 10:30:00 Melissa [facility] PANEL [facility] MAGNESIUM LEVEL 2023-08-28 10:30:00 Melissa [facility] PHOSPHORUS LEVEL 2023-08-28 10:30:00 [facility] .CBC 2023-08-28 10:30:00 Melissa [facility] DIFFERENTIAL 2023-08-28 10:30:00 Melissa [facility] GLUCOSE LEVEL 2023-08-28 10:30:00 Melissa [facility] BLOOD UREA NITROGEN 2023-08-28 10:30:00 Tino Torres [facility] ELECTROLYTE PANEL 2023-08-28 10:30:00 [facility] SERUM CREATININE 2023-08-28 10:30:00 [facility] .GLOMERULAR FILTRATION RATE 2023-08-28 10:30:00 [facility] CALCIUM LEVEL 2023-08-28 10:30:00 Melissa [facility] ALBUMIN LEVEL 2023-08-28 10:30:00 Melissa [facility] ALKALINE PHOSPHATASE 2023-08-28 10:30:00 Tino Torres [facility] ALANINE AMINOTRANSFERASE 2023-08-28 10:30:00 [facility]ion [facility] ASPARTATE AMINOTRANSFERASE 2023-08-28 10:30:00 [facility] TOTAL PROTEIN 2023-08-28 10:30:00 Melissa [facility] FRACTIONATED BILIRUBIN 2023-08-28 10:30:00 [facility] QIAC SERVICES 2023-08-27 20:58:40 Lizet Lara [facility] NM BONE SCAN WHOLE BODY 2023-08-27 17:29:00 Jacob Richardson [facility] [place] COMPLETE BLOOD COUNT W/ 2023-08-27 11:09:00 [facility] DIFFERENTIAL [facility] COMPREHENSIVE METABOLIC 2023-08-27 11:09:00 Brink, Tino [facility] PANEL [facility] MAGNESIUM LEVEL 2023-08-27 11:09:00 Melissa [facility] PHOSPHORUS LEVEL 2023-08-27 11:09:00 [facility] .CBC 2023-08-27 11:09:00 Melissa [facility] DIFFERENTIAL 2023-08-27 11:09:00 Melissa [facility] GLUCOSE LEVEL 2023-08-27 11:09:00 Melissa [facility] BLOOD UREA NITROGEN 2023-08-27 11:09:00 Tino Torres [facility] ELECTROLYTE PANEL 2023-08-27 11:09:00 [facility] SERUM CREATININE 2023-08-27 11:09:00 [facility] .GLOMERULAR FILTRATION RATE 2023-08-27 11:09:00 [facility] CALCIUM LEVEL 2023-08-27 11:09:00 Melissa [facility] ALBUMIN LEVEL 2023-08-27 11:09:00 Melissa [facility] ALKALINE PHOSPHATASE 2023-08-27 11:09:00 Tino Torres [facility] ALANINE AMINOTRANSFERASE 2023-08-27 11:09:00 [facility] ASPARTATE AMINOTRANSFERASE 2023-08-27 11:09:00 [facility] TOTAL PROTEIN 2023-08-27 11:09:00 Melissa [facility] FRACTIONATED BILIRUBIN 2023-08-27 11:09:00 [facility] BREAST SIMULATION 2023-08-26 15:15:00 [facility] WITHOUT [facility]AST [facility] COMPLETE BLOOD COUNT W/ 2023-08-26 10:36:00 Tino Torres [facility] DIFFERENTIAL [facility] COMPREHENSIVE METABOLIC 2023-08-26 10:36:00 Tino Torres [facility] PANEL [facility] MAGNESIUM LEVEL 2023-08-26 10:36:00 Melissa [facility] Center PHOSPHORUS LEVEL 2023-08-26 10:36:00 [facility] .CBC 2023-08-26 10:36:00 Melissa [facility] Center DIFFERENTIAL 2023-08-26 10:36:00 Melissa [facility] Center GLUCOSE LEVEL 2023-08-26 10:36:00 Melissa [facility] Center BLOOD UREA NITROGEN 2023-08-26 10:36:00 Tino Torres [facility] Center ELECTROLYTE PANEL 2023-08-26 10:36:00 Melissa [facility] [place] [facility] Center SERUM CREATININE 2023-08-26 10:36:00 [facility] .GLOMERULAR FILTRATION RATE 2023-08-26 10:36:00 Melissa [facility] Center CALCIUM LEVEL 2023-08-26 10:36:00 Melissa [facility] Center ALBUMIN LEVEL 2023-08-26 10:36:00 Melissa [facility] Center ALKALINE PHOSPHATASE 2023-08-26 10:36:00 Tino Torres [facility] ALANINE AMINOTRANSFERASE 2023-08-26 10:36:00 [facility]ino [facility] ASPARTATE AMINOTRANSFERASE 2023-08-26 10:36:00 [facility] TOTAL PROTEIN 2023-08-26 10:36:00 Melissa [facility] FRACTIONATED BILIRUBIN 2023-08-26 10:36:00 BrTino dyson [facility] CT ABDOMEN PELVIS W WO 2023-08-26 04:21:20 [facility] CONTRAST [facility] CT HEAD WO CONTRAST 2023-08-26 04:15:52 Ramsey Garrett [facility] URINE CULTURE 2023-08-26 02:08:00 María Jiang [facility] URINALYSIS WITH MICROSCOPIC 2023-08-26 02:08:00 Gerry [facility] FUNGITELL, SERUM 2023-08-26 01:45:00 Marita [facility] BLOOD CULTURE 2023-08-26 01:45:00 María Jiang [facility] CMV QUANT PCR, PLASMA 2023-08-26 01:45:00 Logan Kirkland [facility] LACTIC ACID, VENOUS 2023-08-26 01:45:00 María Jiang [facility] XR CHEST 1 VW 2023-08-26 01:31:08 Apolinar María [facility] EKG, 12-LEAD (PORTABLE) 2023-08-26 00:00:00 Abram Loza [facility] P [facility] CELL COUNT W/ DIFF BODY 2023-08-25 17:05:00 [facility] FLUID [facility] LOWER RESPIRATORY CULTURE 2023-08-25 17:05:00 [facility] W/ GRAM STAIN [facility] LEGIONELLA CULTURE 2023-08-25 17:05:00 [facility] W/ SMEAR 2023-08-25 17:05:00 Kim Gillespie [facility] CULTURE W/ SMEAR 2023-08-25 17:05:00 Kim Gillespie [facility] RESPIRATORY VIRAL PANEL, 2023-08-25 17:05:00 Kim Gillespie [facility] SEND OUT [facility] COVID-19 (SARS COV-2) PCR, 2023-08-25 17:05:00 Kim Gillespie [facility] LOWER RESPIRATORY [facility] ASPERGILLUS ANTIGEN, BAL 2023-08-25 17:05:00 Kim Gillespie [facility] PNEUMOCYSTIS QUANT PCR, BAL 2023-08-25 17:05:00 Kim Gillespie [facility] CMV QUANT PCR, BAL 2023-08-25 17:05:00 Kim Gillespie [facility] CELL COUNT BODY FLUID 2023-08-25 17:05:00 Kim Gillespie [facility] sity [facility] BODY FLUID DIFFERENTIAL 2023-08-25 17:05:00 Kim Gillespie [facility] BODY FLUID DIFF PATH REVIEW 2023-08-25 17:05:00 Kim Gillespie [facility] 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 2023-08-25 16:59:00 Jose Miguel [facility] INTERPRETATION [facility] FLEXIBLE BRONCHOSCOPY WITH 2023-08-25 16:28:00 Kim Gillespie [facility] BRONCHIAL ALVEOLAR LAVAGE NE And [facility] COMPLETE BLOOD COUNT W/ 2023-08-25 12:48:00 Tino Torres [facility] DIFFERENTIAL [facility] COMPREHENSIVE METABOLIC 2023-08-25 12:48:00 Melissa Tino [facility] PANEL [facility] MAGNESIUM LEVEL 2023-08-25 12:48:00 Melissa [facility] PHOSPHORUS LEVEL 2023-08-25 12:48:00 [facility] VANCOMYCIN LEVEL TROUGH 2023-08-25 12:48:00 Alleg[facility] 2023-08-25 12:48:00 Melissa Tino [facility] DIFFERENTIAL 2023-08-25 12:48:00 Melissa [facility] GLUCOSE LEVEL 2023-08-25 12:48:00 Melissa [facility] BLOOD UREA NITROGEN 2023-08-25 12:48:00 Tino Torres [facility] ELECTROLYTE PANEL 2023-08-25 12:48:00 [facility] SERUM CREATININE 2023-08-25 12:48:00 [facility] .GLOMERULAR FILTRATION RATE 2023-08-25 12:48:00 [facility] CALCIUM LEVEL 2023-08-25 12:48:00 Melissa [facility] ALBUMIN LEVEL 2023-08-25 12:48:00 Melissa [facility] ALKALINE PHOSPHATASE 2023-08-25 12:48:00 Melissa Tino [facility] ALANINE AMINOTRANSFERASE 2023-08-25 12:48:00 Tino Torres [facility] ASPARTATE AMINOTRANSFERASE 2023-08-25 12:48:00 Tino Torres [facility] TOTAL PROTEIN 2023-08-25 12:48:00 Melissa [facility] FRACTIONATED BILIRUBIN 2023-08-25 12:48:00 Tino Torres Univroberto [facility] STREPTOCOCCUS PNEUMONIAE 2023-08-24 23:50:00 Kym Weathers [facility] ANTIGEN, URINE [facility] LEGIONELLA ANTIGEN, URINE 2023-08-24 23:50:00 Kym Weathers [facility] RESPIRATORY MULTIPLEX PCR 2023-08-24 20:04:00 Kym Weathers [facility] PANEL, NASOPHARYNGEAL SWAB MD [facility] MRSA SCREENING CULTURE 2023-08-24 20:04:00 Kym Weathers Uni [facility] URINE CULTURE 2023-08-24 16:24:[address] [facility] A [facility] URINALYSIS WITH MICROSCOPIC 2023-08-24 16:24:00 Radha Espitia [facility] IF INDICATED A [facility] URINALYSIS MICROSCOPIC EXAM 2023-08-24 16:24:00 Radha Espitia [facility] A [facility] COMPLETE BLOOD COUNT W/ 2023-08-24 12:49:00 Tino Torres [facility] DIFFERENTIAL [facility] COMPREHENSIVE METABOLIC 2023-08-24 12:49:00 Melissa [facility] PANEL [facility] MAGNESIUM LEVEL 2023-08-24 12:49:00 Melissa [facility] PHOSPHORUS LEVEL 2023-08-24 12:49:00 Melissa [facility] .CBC 2023-08-24 12:49:00 Melissa [facility] Center DIFFERENTIAL 2023-08-24 12:49:00 Melissa [facility] GLUCOSE LEVEL 2023-08-24 12:49:00 Melissa [facility] BLOOD UREA NITROGEN 2023-08-24 12:49:00 Tino Torres [facility] ELECTROLYTE PANEL 2023-08-24 12:49:00 Melissa [facility] SERUM CREATININE 2023-08-24 12:49:00 [facility] .GLOMERULAR FILTRATION RATE 2023-08-24 12:49:00 [facility] CALCIUM LEVEL 2023-08-24 12:49:00 Melissa [facility] ALBUMIN LEVEL 2023-08-24 12:49:00 Melissa [facility] ALKALINE PHOSPHATASE 2023-08-24 12:49:00 Tino Torres [facility] ALANINE AMINOTRANSFERASE 2023-08-24 12:49:00 Tino Torres [facility] ASPARTATE AMINOTRANSFERASE 2023-08-24 12:49:00 [facility] TOTAL PROTEIN 2023-08-24 12:49:00 Tino [facility] FRACTIONATED BILIRUBIN 2023-08-24 12:49:00 Tino Torres [facility] PROTHROMBIN TIME 2023-08-23 21:32:00 Allegra Henderson [facility] APTT 2023-08-23 21:32:00 Allegra Henderson [facility] CT CHEST PULMONARY EMBOLISM 2023-08-23 18:29:15 Elmer Loza [facility] W CONTRAST [facility] POC CHEM 8 NO HH 2023-08-23 17:33:00 Allegra Henderson [facility] TYPE AND SCREEN 2023-08-23 16:53:00 Abram Loza [facility] CARDIAC PANEL 2023-08-23 16:53:00 Abram Loza [facility] NT PRO BNP 2023-08-23 16:53:00 Abram Loza [facility] ABORH 2023-08-23 16:53:00 Abram Loza [facility] ANTIBODY SCREEN 2023-08-23 16:53:00 Abram Loza [facility] CLOT EXPIRATION DATE 2023-08-23 16:53:00 [facility] ANTIBODY 2023-08-23 16:53:00 Elmer Loza [facility] SCREEN NEGATIVE [facility] XR CHEST 2 VW 2023-08-22 21:31:34 [facility] HIP 2 OR 3 VW W PELVIS 2023-08-22 21:31:00 Reva Juan [facility] RIGHT [facility] COMPREHENSIVE METABOLIC 2023-08-22 17:33:00 Jose [facility] PANEL [facility] COMPLETE BLOOD COUNT W/ 2023-08-22 17:33:00 Jose [facility] DIFFERENTIAL [facility] LACTATE DEHYDROGENASE 2023-08-22 17:33:00 [facility] 2023-08-22 17:33:00 [facility] PHOSPHORUS L[facility]EL 2023-08-22 17:33:00 [facility] URIC ACID 2023-08-22 17:33:00 Jose [facility] GLUCOSE LEVEL 2023-08-22 17:33:00 [facility] BLOOD UREA NITROGEN 2023-08-22 17:33:00 Lizet Lara [facility] SERUM CREATININE 2023-08-22 17:33:00 Jose [facility] .GLOMERULAR FILTRATION RATE 2023-08-22 17:33:00 Jose [facility] CALCIUM LEVEL 2023-08-22 17:33:00 Jose [facility] ALBUMIN LEVEL 2023-08-22 17:33:00 [facility] ALKALINE PHOSPHATASE 2023-08-22 17:33:00 Jose Lizet [facility] ALANINE AMINOTRANSFERASE 2023-08-22 17:33:00 Lizet Lara [facility] ASPARTATE AMINOTRANSFERASE 2023-08-22 17:33:00 [facility]OTEIN 2023-08-22 17:33[facility]00 [facility] FRACTIONATED BILIRUBIN 2023-08-22 17:33:00 Jose [facility] 2023-08-22 17:33:00 Jose [facility] DIFFERENTIAL 2023-08-22 17:33:00 [facility] ELECTROLYTE PANEL 2023-08-22 17:33:00 [facility] ECHOCARDIOGRAM 2D COMPLETE 2023-08-14 17:16:09 Vianca Campos [facility] CTRC EKG, 12-LEAD 2023-08-14 00:00:00 Guillermo [facility] GENERAL LABORATORY ADD ON 2023-08-11 21:24:00 Lizet [facility] TEST [facility] GENERAL LABORATORY ADD ON 2023-08-11 21:23:00 Lizet Lara [facility] COMPLETE BLOOD COUNT W/ 2023-08-11 18:31[facility]00 [facility] COMPREHENSIVE METABOLIC 2023-08-11 18:31:00 [facility] PANEL [facility] .CBC 2023-08-11 18:31:00 Jose [facility] DIFFERENTIAL 2023-08-11 18:31:00 [facility] GLUCOSE LEVEL 2023-08-11 18:31:00 [facility] BLOOD UREA NITROGEN 2023-08-11 18:31:00 Jose [facility] ELECTROLYTE PANEL 2023-08-11 18:31:00 [facility] SERUM CREATININE 2023-08-11 18:31:00 [facility] .GLOMERULAR FILTRATION RATE 2023-08-11 18:31:00 Jose [facility] CALCIUM LEVEL 2023-08-11 18:31:00 Jose [facility] ALBUMIN LEVEL 2023-08-11 18:31:00 Jose [facility] ALKALINE PHOSPHATASE 2023-08-11 18:31:00 Lizet Lara [facility] ALANINE AMINOTRANSFERASE 2023-08-11 18:31:00 Lizet Lara [facility] ASPARTATE AMINOTRANSFERASE 2023-08-11 18:31:00 [facility] TOTAL PROTEIN 2023-08-11 18:31:00 Jose [facility] FRACTIONATED BILIRUBIN 2023-08-11 18:31:00 Lizet [facility] CARBOHYDRATE ANTIGEN 15-3 2023-08-11 18:31:00 Lizet Lara [facility] CARCINOEMBRYONIC ANTIGEN 2023-08-11 18:31:00 Jose Lizet [facility] COMPLETE BLOOD COUNT W/ 2023-08-05 11:59:00 Tino Torres [facility] DIFFERENTIAL [facility] COMPREHENSIVE METABOLIC 2023-08-05 11:59:00 Melissa Tino [facility] PANEL [facility] MAGNESIUM LEVEL 2023-08-05 11:59:00 Melissa [facility] PHOSPHORUS LEVEL 2023-08-05 11:59:00 Melissa [facility] .CBC 2023-08-05 11:59:00 Melissa [facility] Center DIFFERENTIAL 2023-08-05 11:59:00 Melissa [facility] GLUCOSE LEVEL 2023-08-05 11:59:00 Melissa [facility] BLOOD UREA NITROGEN 2023-08-05 11:59:00 [facility] 2023-08-05 11:59:00 Tino Torres [facility] SERUM CREATININE 2023-08-05 11:59:00 [facility] .GLOMERULAR FILTRATION RATE 2023-08-05 11:59:00 Tino Torres [facility] CALCIUM LEVEL 2023-08-05 11:59:00 Melissa Tino [facility] ALBUMIN LEVEL 2023-08-05 11:59:00 Melissa [facility] ALKALINE PHOSPHATASE 2023-08-05 11:59:00 Tino Torres [facility] ALANINE AMINOTRANSFERASE 2023-08-05 11:59:00 Tino [facility] ASPARTATE AMINOTRANSFERASE 2023-08-05 11:59:00 [facility] TOTAL PROTEIN 2023-08-05 11:59:00 Melissa [facility] FRACTIONATED BILIRUBIN 2023-08-05 11:59:00 Tino Torres [facility] COMPLETE BLOOD COUNT W/ 2023-08-04 11:33:00 Tino Torres [facility] DIFFERENTIAL [facility] COMPREHENSIVE METABOLIC 2023-08-04 11:33:00 Tino Torres [facility] PANEL [facility] MAGNESIUM LEVEL 2023-08-04 11:33:00 Melissa [facility] PHOSPHORUS LEVEL 2023-08-04 11:33:00 [facility] .CBC 2023-08-04 11:33:00 Tino Torres [place] [facility] DIFFERENTIAL 2023-08-04 11:33:00 Melissa [facility] GLUCOSE LEVEL 2023-08-04 11:33:00 Tino Torres [facility] BLOOD UREA NITROGEN 2023-08-04 11:33:00 Tino Torres [facility] ELECTROLYTE PANEL 2023-08-04 11:33:00 [facility] SERUM CREATININE 2023-08-04 11:33:00 [facility] .GLOMERULAR FILTRATION RATE 2023-08-04 11:33:00 [facility] CALCI[facility]EVEL 2023-08-04 11:33:00 Melissa [facility] ALBUMIN LEVEL 2023-08-04 11:33:00 Melissa [facility] ALKALINE PHOSPHATASE 2023-08-04 11:33:00 Tino Torres [facility] ALANINE AMINOTRANSFERASE 2023-08-04 11:33:00 Tino Torres [facility] ASPARTATE AMINOTRANSFERASE 2023-08-04 11:33:00 Tino [facility] TOTAL PROTEIN 2023-08-04 11:33:00 Melissa [facility] FRACTIONATED BILIRUBIN 2023-08-04 11:33:00 [facility] COMPLETE BLOOD COUNT W/ 2023-08-03 12:06:00 Tino Torres [facility] DIFFERENTIAL [facility] COMPREHENSIVE METABOLIC 2023-08-03 12:06:00 Tino Torres [facility] PANEL [facility] MAGNESIUM LEVEL 2023-08-03 12:06:00 Melissa [facility] PHOSPHORUS LEVEL 2023-08-03 12:06:00 [facility] .CBC 2023-08-03 12:06:00 Melissa [facility] Center DIFFERENTIAL 2023-08-03 12:06:00 [facility] GLUCOSE LEVEL 2023-08-03 12:06:00 Melissa [facility] BLOOD UREA NITROGEN 2023-08-03 12:06:00 Tino Torres [facility] ELECTROLYTE PANEL 2023-08-03 12:06:00 [facility] SERUM CREATININE 2023-08-03 12:06:00 [facility] .GLOMERULAR FILTRATION RATE 2023-08-03 12:06:00 [facility] CALCIUM LEVEL 2023-08-03 12:06:00 Melissa [facility] ALBUMIN LEVEL 2023-08-03 12:06:00 Melissa [facility] ALKALINE PHOSPHATASE 2023-08-03 12:06:00 Tino Torres [facility] ALANINE AMINOTRANSFERASE 2023-08-03 12:06:00 Tino Torres [facility] ASPARTATE AMINOTRANSFERASE 2023-08-03 12:06:00 [facility]ino [facility] TOTAL PROTEIN 2023-08-03 12:06:00 Melissa [facility] FRACTIONATED BILIRUBIN 2023-08-03 12:06:00 [facility] COMPLETE BLOOD COUNT W/ 2023-08-02 13:27:00 Tino Torres [facility] DIFFERENTIAL [facility] COMPREHENSIVE METABOLIC 2023-08-02 13:27:00 Tino Torres [facility] PANEL [facility] MAGNESIUM LEVEL 2023-08-02 13:27:00 Melissa [facility] PHOSPHORUS LEVEL 2023-08-02 13:27:00 [facility] .CBC 2023-08-02 13:27:00 Melissa [facility] DIFFERENTIAL 2023-08-02 13:27:00 Tino Torres [facility] GLUCOSE LEVEL 2023-08-02 13:27:00 Melissa Tino [facility] BLOOD UREA NITROGEN 2023-08-02 13:27:00 Tino Torres [facility] ELECTROLYTE PANEL 2023-08-02 13:27:00 [facility] SERUM CREATININE 2023-08-02 13:27:00 [facility] .GLOMERULAR FILTRATION RATE 2023-08-02 13:27:00 [facility] CALCIUM LEVEL 2023-08-02 13:27:00 Melissa [facility] ALBUMIN LEVEL 2023-08-02 13:27:00 Melissa [facility] ALKALINE PHOSPHATASE 2023-08-02 13:27:00 Tino Torres [facility] ALANINE AMINOTRANSFERASE 2023-08-02 13:27:00 Tino Torres [facility] ASPARTATE AMINOTRANSFERASE 2023-08-02 13:27:00 Tino [facility] TOTAL PROTEIN 2023-08-02 13:27:00 Melissa [facility] FRACTIONATED BILIRUBIN 2023-08-02 13:27:00 Tino Torrese [facility] COMPLETE BLOOD COUNT W/ 2023-08-01 11:55:00 [facility] DIFFERENTIAL [facility] COMPREHENSIVE METABOLIC 2023-08-01 11:55:00 Tino Torres [facility] PANEL [facility] MAGNESIUM LEVEL 2023-08-01 11:55:00 Melissa [facility] PHOSPHORUS LEVEL 2023-08-01 11:55:00 [facility] .CBC 2023-08-01 11:55:00 Tino Torres [facility] DIFFERENTIAL 2023-08-01 11:55:00 Melissa [facility] GLUCOSE LEVEL 2023-08-01 11:55:00 Melissa [facility] BLOOD UREA NITROGEN 2023-08-01 11:55:00 Tino Torres [facility] ELECTROLYTE PANEL 2023-08-01 11:55:00 [facility] SERUM CREATININE 2023-08-01 11:55:00 [facility] .GLOMERULAR FILTRATION RATE 2023-08-01 11:55:00 [facility] CALCIUM LEVEL 2023-08-01 11:55:00 Melissa [facility] ALBUMIN LEVEL 2023-08-01 11:55:00 Melissa [facility] ALKALINE PHOSPHATASE 2023-08-01 11:55:00 Tino Torres [facility] ALANINE AMINOTRANSFERASE 2023-08-01 11:55:00 Tino [facility] ASPARTATE AMINOTRANSFERASE 2023-08-01 11:55:00 Tino [facility] TOTAL PROTEIN 2023-08-01 11:55:00 Melissa Tino [facility] FRACTIONATED BILIRUBIN 2023-08-01 11:55:00 Tino Torrese [facility] COMPLETE BLOOD COUNT W/ 2023-07-31 11:39:00 [facility] COMPREHENSIVE METABOLIC 2023-07-31 11:39:00 Tino Torres [facility] PANEL [facility] MAGNESIUM LEVEL 2023-07-31 11:39:00 Melissa Tino [facility] PHOSPHORUS LEVEL 2023-07-31 11:39:00 [facility] .CBC 2023-07-31 11:39:00 Tino Torres [facility] DIFFERENTIAL 2023-07-31 11:39:00 Melissa [facility] GLUCOSE LEVEL 2023-07-31 11:39:00 Melissa [facility] BLOOD UREA NITROGEN 2023-07-31 11:39:00 Tino Torres [facility] ELECTROLYTE PANEL 2023-07-31 11:39:00 [facility] SERUM CREATININE 2023-07-31 11:39:00 [facility] .GLOMERULAR FILTRATION RATE 2023-07-31 11:39:00 [facility] CALCIUM LEVEL 2023-07-31 11:39:00 Melissa [facility] ALBUMIN LEVEL 2023-07-31 11:39:00 Melissa [facility] ALKALINE PHOSPHATASE 2023-07-31 11:39:00 Tino Torres [facility] ALANINE AMINOTRANSFERASE 2023-07-31 11:39:00 Tino [facility] ASPARTATE AMINOTRANSFERASE 2023-07-31 11:39:00 Tino [facility] TOTAL PROTEIN 2023-07-31 11:39:00 Melissa Tino [facility] FRACTIONATED BILIRUBIN 2023-07-31 11:39:00 Tino [facility]rese [facility] MRI CERVICAL THORACIC 2023-07-30 16:00:00 [facility] L[facility] SP[facility] W WO CONTRAST [facility] COMPLETE BLOOD COUNT W/ 2023-07-30 12:24:00 [facility] DIFFERENTIAL [facility] COMPREHENSIVE METABOLIC 2023-07-30 12:24:00 Tino Torres [facility] PANEL [facility] MAGNESIUM LEVEL 2023-07-30 12:24:00 Mleissa [facility] PHOSPHORUS LEVEL 2023-07-30 12:24:00 [facility] .CBC 2023-07-30 12:24:00 Melissa [facility] DIFFERENTIAL 2023-07-30 12:24:00 Melissa [facility] GLUCOSE LEVEL 2023-07-30 12:24:00 Melissa [facility] BLOOD UREA NITROGEN 2023-07-30 12:24:00 Tino Torres [facility] ELECTROLYTE PANEL 2023-07-30 12:24:00 [facility] SERUM CREATININE 2023-07-30 12:24:00 [facility] .GLOMERULAR FILTRATION RATE 2023-07-30 12:24:00 [facility] CALCIUM LEVEL 2023-07-30 12:24:00 Melissa [facility] ALBUMIN LEVEL 2023-07-30 12:24:00 Melissa [facility] ALKALINE PHOSPHATASE 2023-07-30 12:24:00 Tino Torres [facility] ALANINE AMINOTRANSFERASE 2023-07-30 12:24:00 Tino Torres [facility] ASPARTATE AMINOTRANSFERASE 2023-07-30 12:24:00 Tino [facility] TOTAL PROTEIN 2023-07-30 12:24:00 Melissa [facility] FRACTIONATED BILIRUBIN 2023-07-30 12:24:00 [facility] COMPLETE BLOOD COUNT W/ 2023-07-29 13:29:00 Tino Torres [facility] DIFFERENTIAL [facility] COMPREHENSIVE METABOLIC 2023-07-29 13:29:00 Tino Torres [facility] MAGNESIUM LEVEL 2023-07-29 13:29:00 Melissa [facility] PHOSPHORUS LEVEL 2023-07-29 13:29:00 [facility] .CBC 2023-07-29 13:29:00 Melissa [facility] DIFFERENTIAL 2023-07-29 13:29:00 Melissa [facility] GLUCOSE LEVEL 2023-07-29 13:29:00 Melissa [facility] BLOOD UREA NITROGEN 2023-07-29 13:29:00 Tino Torres [facility] ELECTROLYTE PANEL 2023-07-29 13:29:00 [facility] SERUM CREATININE 2023-07-29 13:29:00 [facility] .GLOMERULAR FILTRATION RATE 2023-07-29 13:29:00 [facility] CALCIUM LEVEL 2023-07-29 13:29:00 Melissa [facility] ALBUMIN LEVEL 2023-07-29 13:29:00 Melissa [facility] ALKALINE PHOSPHATASE 2023-07-29 13:29:00 Tino Torres [facility] ALANINE AMINOTRANSFERASE 2023-07-29 13:29:00 [facility]ino [facility] ASPARTATE AMINOTRANSFERASE 2023-07-29 13:29:00 Tino [facility] TOTAL PROTEIN 2023-07-29 13:29:00 Melissa [facility] FRACTIONATED BILIRUBIN 2023-07-29 13:29:00 Tino [facility] 3D DENTAL [facility]AG[facility] (ICAT) 2023-07-28 15:13:38 Gibran Belle [facility] COMPLETE BLOOD COUNT W/ 2023-07-28 13:03:00 Tino Torres [facility] DIFFERENTIAL [facility] COMPREHENSIVE METABOLIC 2023-07-28 13:03:00 Tino Torres [facility] PANEL [facility] MAGNESIUM LEVEL 2023-07-28 13:03:00 Melissa [facility] PHOSPHORUS LEVEL 2023-07-28 13:03:00 Melissa [facility] .CBC 2023-07-28 13:03:00 Melissa [facility] DIFFERENTIAL 2023-07-28 13:03:00 Melissa [facility] GLUCOSE LEVEL 2023-07-28 13:03:00 Melissa [facility] BLOOD UREA NITROGEN 2023-07-28 13:03:00 Tino Torres [facility] ELECTROLYTE PANEL 2023-07-28 13:03:00 Melissa [facility] SERUM CREATININE 2023-07-28 13:03:00 [facility] .GLOMERULAR FILTRATION RATE 2023-07-28 13:03:00 [facility] CALCIUM LEVEL 2023-07-28 13:03:00 Melissa [facility] ALBUMIN LEVEL 2023-07-28 13:03:00 Melissa [facility] ALKALINE PHOSPHATASE 2023-07-28 13:03:00 Tino Torres [facility] ALANINE AMINOTRANSFERASE 2023-07-28 13:03:00 Tino Torres [facility] ASPARTATE AMINOTRANSFERASE 2023-07-28 13:03:00 Tino [facility] TOTAL PROTEIN 2023-07-28 13:03:00 Melissa [facility] FRACTIONATED BILIRUBIN 2023-07-28 13:03:00 Tino Torres [facility] COMPLETE BLOOD COUNT W/ 2023-07-27 09:50:00 Tino Torres [facility] DIFFERENTIAL [facility] COMPREHENSIVE METABOLIC 2023-07-27 09:50:00 Tino Torres [facility] PANEL [facility] Center MAGNESIUM LEVEL 2023-07-27 09:50:00 Melissa [facility] PHOSPHORUS LEVEL 2023-07-27 09:50:00 Melissa [facility] .CBC 2023-07-27 09:50:00 Melissa [facility] DIFFERENTIAL 2023-07-27 09:50:00 Melissa [facility] GLUCOSE LEVEL 2023-07-27 09:50:00 Melissa [facility] BLOOD UREA NITROGEN 2023-07-27 09:50:00 Tino Torres [facility] ELECTROLYTE PANEL 2023-07-27 09:50:00 Melissa [facility] SERUM CREATININE 2023-07-27 09:50:00 Melissa [facility] .GLOMERULAR FILTRATION RATE 2023-07-27 09:50:00 Melissa [facility] CALCIUM LEVEL 2023-07-27 09:50:00 Melissa [facility] ALBUMIN LEVEL 2023-07-27 09:50:00 Melissa [facility] ALKALINE PHOSPHATASE 2023-07-27 09:50:00 Tino Torres [facility] ALANINE AMINOTRANSFERASE 2023-07-27 09:50:00 Tino [facility] ASPARTATE AMINOTRANSFERASE 2023-07-27 09:50:00 Tino [facility] TOTAL PROTEIN 2023-07-27 09:50:00 Melissa [facility] FRACTIONATED BILIRUBIN 2023-07-27 09:50:00 Tino Torres [facility] URINALYSIS WITH MICROSCOPIC 2023-07-26 16:44:[address] [facility] [address] CERVICAL THORACIC LUMBAR 2023-07-26 13:52:11 Melissa [facility] SPINE WO CONTRAST [facility] COMPLETE BLOOD COUNT W/ 2023-07-26 12:24:00 Tino Torres [facility] DIFFERENTIAL [facility] COMPREHENSIVE METABOLIC 2023-07-26 12:24:00 Melissa [facility] PANEL [facility] MAGNESIUM LEVEL 2023-07-26 12:24:[facility] 2023-07-26 12:24:00 [facility] TYPE AND SCREEN 2023-07-26 12:24:00 [facility] PROTHROM[facility] TIME 2023-07-26 12:24:00 [facility] APTT 2023-07-26 12:24:00 [facility] ABORH 2023-07-26 12:24:00 [facility] ANTIBODY SCREEN 2023-07-26 12:24:00 [facility] 2023-07-26 12:24:00 Melissa [facility] DIFFERENTIAL 2023-07-26 12:24:00 [facility] GLU[facility]SE [facility]EL 2023-07-26 12:24:00 [facility] BLOOD UREA NITROGEN 2023-07-26 12:24:00 Tino Torres [facility] ELECTROLYTE PANEL 2023-07-26 12:24:00 [facility] SERUM CREATININE 2023-07-26 12:24:00 [facility] .GLOMERULAR FILTRATION RATE 2023-07-26 12:24:00 [facility] CALCIUM LEVEL 2023-07-26 12:24:00 Melissa [facility] ALBUMIN LEVEL 2023-07-26 12:24:00 Melissa [facility] ALKALINE PHOSPHATASE 2023-07-26 12:24:00 Melissa Tino [facility] ALANINE AMINOTRANSFERASE 2023-07-26 12:24:00 Tino Torres [facility] ASPARTATE AMINOTRANSFERASE 2023-07-26 12:24:00 Tino Torres [facility] TOTAL PROTEIN 2023-07-26 12:24:00 Melissa [facility] FRACTIONATED BILIRUBIN 2023-07-26 12:24:00 Tino Torres [facility] CLOT EXPIRATION DATE 2023-07-26 12:24:00 Tino Torres [facility] TMP INTERPRETATION ANTIBODY 2023-07-26 12:24:00 Melissa [facility] SCREEN NEGATIVE [facility] XR FEMUR 2 VW RIGHT 2023-07-26 03:02:48 Dayday Concepcion [facility] CT HIP RIGHT WO CONTRAST 2023-07-26 00:39:54 Victorino Dawn U [facility] COMPLETE BLOOD COUNT W/ 2023-07-26 00:06:00 Dayday Concepcion [facility] DIFFERENTIAL [facility] COMPREHENSIVE METABOLIC 2023-07-26 00:06:00 Dayday Concepcion [facility] PANEL [facility] MAGNESIUM LEVEL 2023-07-26 00:06:00 Dayday Concepcion [facility] PHOSPHORUS LEVEL 2023-07-26 00:06:00 Dayday Concepcion [facility] .CBC 2023-07-26 00:06:00 Dayday Concepcion [facility] DIFFERENTIAL 2023-07-26 00:06:00 Dayday Concepcion [facility] GLUCOSE LEVEL 2023-07-26 00:06:00 Dayday Concepcion [facility] BLOOD UREA NITROGEN 2023-07-26 00:06:00 Dayday Concepcion [facility] ELECTROLYTE PANEL 2023-07-26 00:06:00 Dayday Concepcion [facility] SERUM CREATININE 2023-07-26 00:06:00 Dayday Concepcion [facility] .GLOMERULAR FILTRATION RATE 2023-07-26 00:06:00 Kris Concepcion [facility] CALCIUM LEVEL 2023-07-26 00:06:00 Dayday Concepcion [facility] ALBUMIN LEVEL 2023-07-26 00:06:00 Dayday Concepcion [facility] ALKALINE PHOSPHATASE 2023-07-26 00:06:00 Dayday [facility] ALANINE AMINOTRANSFERASE 2023-07-26 00:06:00 Dayday Concepcion [facility] ASPARTATE AMINOTRANSFERASE 2023-07-26 00:06:00 Dayday Concepcion [facility] TOTAL PROTEIN 2023-07-26 00:06:00 Dayday Concepcion [facility] FRACTIONATED BILIRUBIN 2023-07-26 00:06:00 Dayday Concepcion [facility] MRI PELVIS W WO CONTRAST - 2023-07-24 20:50:44 Lizet Lara U [facility] MUSCULOSKELETAL [facility] COMPREHENSIVE METABOLIC 2023-07-24 14:59:00 [facility] PANEL [facility] COMPLETE BLOOD COUNT W/ 2023-07-24 14:59:00 Josh Dewey [facility] DIFFERENTIAL [facility] LACTATE DEHYDROGENASE 2023-07-24 14:59:00 [facility] MAGNESI[facility] LEVEL 2023-07-24 14:59:00 Josh Dewey [facility] PHOSPHORUS LEVEL 2023-07-24 14:59:00 [facility] 2023-07-24 14:59:00 [facility]UCOSE LEVEL 2023-07-24 14:59:00 Josh Dewey [facility] BLOOD UREA NITROGEN 2023-07-24 14:59:00 Josh Dewey [facility] ELECTROLYTE PANEL 2023-07-24 14:59:00 Josh Dewey [facility] SERUM CREATININE 2023-07-24 14:59:00 [facility] .GLOMERULAR FILTRATION RATE 2023-07-24 14:59:00 Josh Dewey [facility] CALCIUM LEVEL 2023-07-24 14:59:00 Josh Dewey [facility] ALBUMIN LEVEL 2023-07-24 14:59:00 Josh Dewey [facility] ALKALINE PHOSPHATASE 2023-07-24 14:59:00 Josh Dewey [facility] ALANINE AMINOTRANSFERASE 2023-07-24 14:59:00 Josh [facility]wey [facility] ASPARTATE AMINOTRANSFERASE 2023-07-24 14:59:00 Josh [facility] TOTAL PROTEIN 2023-07-24 14:59:00 Josh Dewey [facility] FRACTIONATED BILIRUBIN 2023-07-24 14:59:00 Josh Deweye [facility] .CBC 2023-07-24 14:59:00 Maco [facility] DIFFERENTIAL 2023-07-24 14:59:00 Maco [facility] QIAC SERVICES 2023-07-18 14:39:54 Jennifer West [facility] CTRC EKG, 12-LEAD 2023-07-17 00:00:00 Maco [facility] COMPLETE BLOOD COUNT W/ 2023-07-16 16:11:00 Jennifer [facility] DIFFERENTIAL [facility] COMPREHENSIVE METABOLIC 2023-07-16 16:11:00 [facility] PANEL [facility] MAGNESIUM LEVEL 2023-07-16 16:11:00 Jennifer West [facility] PHOSPHORUS LEVEL 2023-07-16 16:11:00 Jennifer West [facility] URINALYSIS WITH MICROSCOPIC 2023-07-16 16:11:00 Jennifer West [facility] IF INDICATED [facility] CARBOHYDRATE ANTIGEN 15-3 2023-07-16 16:11:00 Jennifer West [facility] CARCINOEMBRYONIC ANTIGEN 2023-07-16 16:11:00 Jennifer West [facility]CBC 2023-07-16 16:11:00 Jennifer West [facility] DIFFERENTIAL 2023-07-16 16:11:00 Jennifer West [facility] GLUCOSE LEVEL 2023-07-16 16:11:00 Jennifer West [facility] BLOOD UREA NITROGEN 2023-07-16 16:11:00 Jennifer West [facility] SERUM CREATININE 2023-07-16 16:11:00 Jennifer West [facility] .GLOMERULAR FILTRATION RATE 2023-07-16 16:11:00 Jennifer West [facility] CALCIUM LEVEL 2023-07-16 16:11:00 Jennifer West [facility] ALBUMIN LEVEL 2023-07-16 16:11:00 Jennifer West [facility] ALKALINE PHOSPHATASE 2023-07-16 16:11:00 [facility] ALANINE AMINOTRANSFERASE 2023-07-16 16:11:00 Jennifer West [facility] ASPARTATE AMINOTRANSFERASE 2023-07-16 16:11:00 Jennifer West [facility] TOTAL PROTEIN 2023-07-16 16:11:00 Jennifer West [facility] FRACTIONATED BILIRUBIN 2023-07-16 16:11:00 Jennifer West [facility] ELECTROLYTE PANEL 2023-07-16 16:11:00 Jennifer West [facility] URINALYSIS MICROSCOPIC EXAM 2023-07-16 16:11:00 Jennifer West [facility] URINALYSIS MICROSCOPIC EXAM 2023-07-16 16:11:00 Jennifer West [facility] APTT 2023-07-16 16:03:00 Jennifer West [facility] PROTHROMBIN TIME 2023-07-16 16:03:00 Jennifer West [facility] IR CT GUIDED BIOPSY BONE 2023-07-15 20:45:28 Jennifer West [facility] DEEP PELVIC 60 [facility] PATHOLOGY BIOPSY 2023-07-15 20:08:00 Jennifer West [facility] INTERPRETATION [facility] NM BONE SCAN WHOLE BODY 2023-07-11 19:47:00 [facility] CHEST ABDOMEN PELVIS W 2023-07-11 19:14:00 Jennifer West [facility] CONTRAST [facility] EKG, 12-LEAD (SCHEDULED) 2023-07-11 00:00:00 Jennifer West [facility] OCT, OPTIC NERVE - OU - 2023-07-08 20:27:37 Darshan [facility] BOTH EYES [facility] OCT, RETINA - OU - BOTH 2023-07-08 20:27:36 Darshan [facility] EYES [facility] FUNDUS PHOTOS - OU - BOTH 2023-07-08 20:27:34 Laura Sexton [facility] [place] EYES [facility] XR HIP 2 OR 3 VW W PELVIS 2023-07-08 19:20:58 Radha Lombardo [facility] RIGHT [facility] SPIROMETRY W/O DILATORS, 2023-07-08 16:03:18 Cookie Sterling [facility] DLCO AND BODY [facility] PLETHSMOGRAPHIC LUNG Center VOLUMES APTT 2023-07-08 14:00:00 Jennifer West [facility] BHCG 2023-07-08 14:00:00 Jennifer West [facility] COMPLETE BLOOD COUNT W/ 2023-07-08 14:00:00 Jennifer West [facility] DIFFERENTIAL [facility] COMPREHENSIVE METABOLIC 2023-07-08 14:00:00 Jennifer West [facility] PANEL [facility] MAGNESIUM LEVEL 2023-07-08 14:00:00 Jennifer West [facility] PHOSPHORUS LEVEL 2023-07-08 14:00:00 Jennifer West [facility] PROTHROMBIN TIME 2023-07-08 14:00:00 Jennifer West [facility] URINALYSIS WITH MICROSCOPIC 2023-07-08 14:00:00 Jennifer West [facility] IF INDICATED [facility] .CBC 2023-07-08 14:00:00 Jennifer West [facility] DIFFERENTIAL 2023-07-08 14:00:00 Jennifer West Naz [facility] GLUCOSE LEVEL 2023-07-08 14:00:00 Jennifer West [facility] BLOOD UREA NITROGEN 2023-07-08 14:00:00 Jennifer West [facility] ELECTROLYTE PANEL 2023-07-08 14:00:00 Jennifer West [facility] SERUM CREATININE 2023-07-08 14:00:00 Jennifer West [facility] .GLOMERULAR FILTRATION RATE 2023-07-08 14:00:00 Jennifer West [facility] CALCIUM LEVEL 2023-07-08 14:00:00 [facility] 2023-07-08 14:00:00 [facility] ALKALINE PHOSPHATASE 2023-07-08 14:00:00 Jennifer West [facility] ALANINE AMINOTRANSFERASE 2023-07-08 14:00:00 Jennifer West [facility] ASPARTATE AMINOTRANSFERASE 2023-07-08 14:00:00 Jennifer West [facility] TOTAL PROTEIN 2023-07-08 14:00:00 Jennifer West [facility] FRACTIONATED BILIRUBIN 2023-07-08 14:00:00 Jennifer West Uni [facility] URINALYSIS MICROSCOPIC EXAM 2023-07-08 14:00:00 Jennifer West [facility] URINALYSIS MICROSCOPIC EXAM 2023-07-08 14:00:00 Jennifer West [facility] XR CHEST 2 VW 2023-07-08 13:34:41 Cookie Sterling [facility] CT CHEST PULMONARY EMBOLISM 2023-06-27 18:12:13 Essie Cardona [facility] D DIMER 2023-06-27 15:48:00 Sarath Joshi [facility] US ARM VENOUS DOPPLER 2023-06-27 13:08:03 Celina [facility]era [facility] BILATERAL [facility] BASIC METABOLIC PANEL, 2023-06-27 07:06:00 Jw, Celina [facility] CALCIUM TOTAL [facility] MAGNESIUM LEVEL 2023-06-27 07:06:00 Jw, [facility] PHOSPHORUS LEVEL 2023-06-27 07:06:00 Jw, [facility] COMPLETE BLOOD COUNT W/ 2023-06-27 07:06:00 [place]w [place] [facility] DIFFERENTIAL [facility] GLUCOSE LEVEL 2023-06-27 07:06:00 Jw, [facility] BLOOD UREA NITROGEN 2023-06-27 07:06:00 Celina Escalera [facility] ELECTROLYTE PANEL 2023-06-27 07:06:00 Jw, [facility] SERUM CREATININE 2023-06-27 07:06:00 Jw [facility] .GLOMERULAR FILTRATION RATE 2023-06-27 07:06:00 Jw, [facility] CALCIUM LEVEL 2023-06-27 07:06:00 Jw [facility] .CBC 2023-06-27 07:06:00 Jw [facility] DIFFERENTIAL 2023-06-27 07:06:00 Jw, [facility] XR CHEST 1 VW 2023-06-26 23:28:01 Trinidad Springer [facility] COMPLETE BLOOD COUNT W/ 2023-06-26 20:54:00 Trinidad Springer [facility] DIFFERENTIAL [facility] COMPREHENSIVE METABOLIC 2023-06-26 20:54:00 Trinidad Springer [facility] PANEL [facility] MAGNESIUM LEVEL 2023-06-26 20:54:00 Trinidad Springer [facility] PHOSPHORUS LEVEL 2023-06-26 20:54:00 Trinidad Springer [facility] PROTHROMBIN TIME 2023-06-26 20:54:00 Trinidad Springer [facility] APTT 2023-06-26 20:54:00 Trinidad Springer [facility] NT PRO BNP 2023-06-26 20:54:00 Trinidad Springer [facility] TROPONIN T 2023-06-26 20:54:00 Trinidad Springer [facility] .CBC 2023-06-26 20:54:00 Trinidad Springer [facility] DIFFERENTIAL 2023-06-26 20:54:00 Trinidad Springer [facility] GLUCOSE LEVEL 2023-06-26 20:54:00 Trinidad Springer [facility] BLOOD UREA NITROGEN 2023-06-26 20:54:00 Trinidad Springer [facility] ELECTROLYTE PANEL 2023-06-26 20:54:00 Trinidad Springer [facility] SERUM CREATININE 2023-06-26 20:54:00 Trinidad Springer [facility] .GLOMERULAR FILTRATION RATE 2023-06-26 20:54:00 Trinidad Springer [facility] CALCIUM LEVEL 2023-06-26 20:54:00 Trinidad Springer [facility] ALBUMIN LEVEL 2023-06-26 20:54:00 Trinidad Springer [facility] ALKALINE PHOSPHATASE 2023-06-26 20:54:00 Trinidad Springer [facility] ALANINE AMINOTRANSFERASE 2023-06-26 20:54:00 Trinidad Springer [facility] ASPARTATE AMINOTRANSFERASE 2023-06-26 20:54:00 Trinidad Springer [facility] TOTAL PROTEIN 2023-06-26 20:54:00 Trinidad Springer [facility] FRACTIONATED BILIRUBIN 2023-06-26 20:54:00 Trinidad Springer [facility] E[facility], 12-LEAD (PORTABLE) 2023-06-26 00:00:00 Trinidad Springer [facility] RESPIRATORY MULTIPLEX PCR 2023-06-25 17:06:00 Jennifer West [facility] PANEL, NASOPHARYNGEAL SWAB MD [facility] RESPIRATORY MULTIPLEX PCR 2023-06-25 17:06:00 [facility], NASOPHARYNGEAL SWAB MD [facility] XR CHEST 2 VW 2023-06-25 14:23:35 Radha Lombardo [facility] COMPLETE BLOOD COUNT W/ 2023-06-25 13:44:00 Jennifer West [facility] DIFFERENTIAL [facility] COMPREHENSIVE METABOLIC 2023-06-25 13:44:00 Jennifer West [facility] PANEL [facility] MAGNESIUM LEVEL 2023-06-25 13:44:00 Jennifer West [facility] PHOSPHORUS LEVEL 2023-06-25 13:44:00 Jennifer West [facility] .CBC 2023-06-25 13:44:00 Jennifer West [facility] DIFFERENTIAL 2023-06-25 13:44:00 Jennifer West [facility] GLUCOSE LEVEL 2023-06-25 13:44:00 Jennifer West [facility] BLOOD UREA NITROGEN 2023-06-25 13:44:00 [facility] ELECTROLYTE PANEL 2023-06-25 13:44:00 Jennifer West [facility] SERUM CREATININE 2023-06-25 13:44:00 Jennifer West [facility] .GLOMERULAR FILTRATION RATE 2023-06-25 13:44:00 Jennifer West [facility] CALCIUM LEVEL 2023-06-25 13:44:00 Jennifer West [facility] ALBUMIN LEVEL 2023-06-25 13:44:00 Jennifer West [facility] ALKALINE PHOSPHATASE 2023-06-25 13:44:00 Jennifer [facility] ALANINE AMINOTRANSFERASE 2023-06-25 13:44:00 Jennifer West [facility] ASPARTATE AMINOTRANSFERASE 2023-06-25 13:44:00 Jennifer West [facility] TOTAL PROTEIN 2023-06-25 13:44:00 Jennifer West [facility] FRACTIONATED BILIRUBIN 2023-06-25 13:44:00 Jennifer West [facility] PULMONARY ULTRASOUND 2023-06-12 13:46:43 Radha Lombardo [facility] XR CHEST 2 VW 2023-06-11 18:45:00 Radha Lombardo [facility] GENERAL LABORATORY ADD ON 2023-06-11 18:44:00 Edis Luciano [facility] TEST [facility] COMPLETE BLOOD COUNT W/ 2023-06-11 14:51:40 Edis Luciano [facility] DIFFERENTIAL [facility] COMPREHENSIVE METABOLIC 2023-06-11 14:51:40 Edis Luciano [facility] PANEL [facility] MAGNESIUM LEVEL 2023-06-11 14:51:40 Edis Luciano [facility] PHOSPHORUS LEVEL 2023-06-11 14:51:40 Edis Luciano [facility] GLUCOSE, FASTING 2023-06-11 14:51:40 Edis Luciano [facility] .CBC 2023-06-11 14:51:40 Edis Luciano [facility] DIFFERENTIAL 2023-06-11 14:51:40 Edis Luciano [facility] BLOOD UREA NITROGEN 2023-06-11 14:51:40 Edis Luciano [facility] ELECTROLYTE PANEL 2023-06-11 14:51:40 Edis Luciano [facility] SERUM CREATININE 2023-06-11 14:51:40 Edis Luciano [facility] .GLOMERULAR FILTRATION RATE 2023-06-11 14:51:40 Edis Luciano [facility] CALCIUM LEVEL 2023-06-11 14:51:40 Edis Luciano [facility] ALBUMIN LEVEL 2023-06-11 14:51:40 Edis Luciano [facility] ALKALINE PHOSPHATASE 2023-06-11 14:51:40 Edis Luciano [facility] ALANINE AMINOTRANSFERASE 2023-06-11 14:51:40 Edis Luciano [facility] ASPARTATE AMINOTRANSFERASE 2023-06-11 14:51:40 Edis Luciano [facility] TOTAL PROTEIN 2023-06-11 14:51:40 Edis Luciano [facility] FRACTIONATED BILIRUBIN 2023-06-11 14:51:40 Edis Luc[facility] CARBOHYDRATE ANTIGEN 15-3 2023-06-11 14:51:40 Edis Luciano [facility] XR CHEST 1 VW 2023-06-07 14:52:41 Sarahi Jade [facility] COMPLETE BLOOD COUNT W/ 2023-06-07 12:00:00 Josie Cruz [facility] DIFFERENTIAL [facility] BASIC METABOLIC PANEL, 2023-06-07 12:00:00 Nancy [facility] CALCIUM TOTAL [facility] MAGNESIUM LEVEL 2023-06-07 12:00:00 Nancy, [facility] PHOSPHORUS LEVEL 2023-06-07 12:00:00 Nancy, [facility] .CBC 2023-06-07 12:00:00 Nancy, [facility] DIFFERENTIAL 2023-06-07 12:00:00 Nancy, [facility] GLUCOSE LEVEL 2023-06-07 12:00:00 Nancy, [facility] BLOOD UREA NITROGEN 2023-06-07 12:00:00 [facility]o [facility] ELECTROLYTE PANEL 2023-06-07 12:00:00 Nancy [facility] Center SERUM CREATININE 2023-06-07 12:00:00 Nancy [facility] .GLOMERULAR FILTRATION RATE 2023-06-07 12:00:00 Frederick torre [facility] CALCIUM LEVEL 2023-06-07 12:00:00 Nancy, [facility] XR CHEST 1 VW 2023-06-06 12:50:21 [facility] COMPLETE BLOOD COUNT W/ 2023-06-06 11:59:00 Nancy, [facility] BASIC METABOLIC PANEL, 2023-06-06 11:59:00 Nancy, [facility] CALCIUM TOTAL [facility] MAGNESIUM LEVEL 2023-06-06 11:59:00 EtchTamika, Universit [facility] PHOSPHORUS LEVEL 2023-06-06 11:59:00 Etchholly-Yaima, Universi ty [facility] .CBC 2023-06-06 11:59:00 Etchegakaitlyn-Yaima, [facility] DIFFERENTIAL 2023-06-06 11:59:00 Etchegakaitlyn-Yaima, [facility] GLUCOSE LEVEL 2023-06-06 11:59:00 EtchTamika, [facility] BLOOD UREA NITROGEN 2023-06-06 11:59:00 Nancy, [facility] 2023-06-06 11:59:00 Malrene-Yaima, Univers ity [facility] SERUM CREATININE 2023-06-06 11:59:00 Nancy, [facility]i ty [facility] .GLOMERULAR FILTRATION RATE 2023-06-06 11:59:00 Frederick torre, [facility] CALCIUM LEVEL 2023-06-06 11:59:00 Nancy, [facility] XR CHEST 1 VW 2023-06-05 17:33:34 Jalil Alejandro [facility] SURGICAL THORACOSCOPY WITH 2023-06-05 15:38:00 Jalil Alejandro [facility] PLEURODESIS (MECHANICAL OR MD Susi argueta Cancer CHEMICAL) Center INSERTION OF INDWELLING 2023-06-05 15:38:00 Jalil Alejandro [facility] TUNNELED PLEURAL CATHETER MD And erson Cancer WITH CUFF-RIGHT Center PULMONARY ULTRASOUND 2023-06-05 15:08:10 Jalil Alejandro [facility] PELVIS COMPLETE 2023-06-03 16:46:00 [facility] TRANSVAGINAL 2023-06-03 16:46:00 [facility] PULMONARY ULTRASOUND 2023-06-02 14:40:36 Radha Lombardo [facility] XR CHEST 2 VW 2023-06-02 13:05:41 Jalil Alejandro [facility] NM BONE SCAN WHOLE BODY 2023-05-27 14:25:00 [facility]ST ABDOMEN PELVIS W 2023-05-27 13:29:29 AboMarcello acevedo [facility] COMPLETE BLOOD COUNT W/ 2023-05-27 11:57:09 Marcello Schultz [facility] [place] DIFFERENTIAL [facility] COMPREHENSIVE METABOLIC 2023-05-27 11:57:09 Marcello Schultz [facility] [place] PANEL [facility] CARBOHYDRATE ANTIGEN 15-3 2023-05-27 11:57:09 Marcello Schultz [facility] PHOSPHORUS LEVEL 2023-05-27 11:57:09 Antoine [facility] MAGNESIUM LEVEL 2023-05-27 11:57:09 Antoine [facility] .CBC 2023-05-27 11:57:09 Antoine [facility] DIFFERENTIAL 2023-05-27 11:57:09 Antoine [facility] GLUCOSE LEVEL 2023-05-27 11:57:09 Antoine [facility] BLOOD UREA NITROGEN 2023-05-27 11:57:09 Abouharb, [facility] ELECTROLYTE PANEL 2023-05-27 11:57:09 [facility] CREATININE 2023-05-27 11:57:09 [facility] .GLOMERULAR FILTRATION RATE 2023-05-27 11:57:09 [facility] CALCIUM LEVEL 2023-05-27 11:57:09 [facility] ALBUMIN LEVEL 2023-05-27 11:57:09 [facility] ALKALINE PHOSPHATASE 2023-05-27 11:57:09 [facility] ALANINE AMINOTRANSFERASE 2023-05-27 11:57:09 [facility] [place] ASPARTATE AMINOTRANSFERASE 2023-05-27 11:57:09 [facility] TOTAL PROTEIN 2023-05-27 11:57:09 [facility] FRACTIONATED BILIRUBIN 2023-05-27 11:57:09 [facility] HP CYTOGENETICS BLOOD 2023-05-22 00:23:00 Nano Olvera [facility] COLLECTION [facility] HP CG HER2 FISH 2023-05-22 00:23:00 Nano [facility] INTERPRETATION AND REPORT NE And [facility] XR CHEST 1 VW 2023-05-21 19:18:00 Jalil Alejandro [facility] 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 2023-05-21 19:05:00 Jalil Alejandro [facility] INTERPRETATION [facility] PROTEIN BODY FLUID 2023-05-21 18:48:00 Jalil Alejandro [facility] TRIGLYCERIDE BODY FLUID 2023-05-21 18:48:00 Jalil [facility] CHOLESTEROL BODY FLUID 2023-05-21 18:48:00 Jalil Alejandro [facility] AMYLASE LEVEL BODY FLUID 2023-05-21 18:48:00 Jalil Alejandro [facility] LACTATE DEHYDROGENASE BODY 2023-05-21 18:48:00 Jalil Alejandro [facility] CELL COUNT W/ DIFF BODY 2023-05-21 18:48:00 [facility]il [facility] BODY FLUID CULTURE W/ GRAM 2023-05-21 18:48:00 Jalil Alejandro [facility] STAIN [facility] CELL COUNT BODY FLUID 2023-05-21 18:48:00 J[facility]il [facility]roe [facility] BODY FLUID DIFFERENTIAL 2023-05-21 18:48:00 Jalil [facility]andro [facility] BODY FLUID DIFF PATH REVIEW 2023-05-21 18:48:00 Jalil Alejandro [facility] GLUCOSE BODY FLUID 2023-05-21 18:48:00 Jalil Alejandro [facility] BODY FLUID CULTURE W/ GRAM 2023-05-21 18:48:00 Jalil Alejandro [facility] THORACENTESIS,NEEDLE OR 2023-05-21 18:25:00 Jalil Alejandro versayleen [facility] CATHETER,ASPIRATION OF THE Susi argueta Cancer RIGHT PLEURAL SPACE; WITH Center IMAGING GUIDANCE PULMONARY ULTRASOUND 2023-05-21 18:10:13 Jalil Alejandroer sity [facility] EKG, 12-LEAD (PORTABLE) 2023-05-21 00:00:00 Jalil Alejandro Uni versity [facility] URINE CULTURE 2023-05-20 16:21:10 [facility] URINALYSIS WITH MICROSCOPIC 2023-05-20 16:21:10 Martha [facility] URINE CULTURE 2023-05-20 16:21:10 [facility] [place] US ARM VENOUS DOPPLER RIGHT 2023-04-30 19:39:00 Antoine [facility] XR CHEST 2 VW 2023-04-30 18:51:32 Antoine [facility] URINE CULTURE 2023-04-30 18:30:30 Antoine [facility] URINALYSIS WITH MICROSCOPIC 2023-04-30 18:30:30 Antoine [facility] IF INDICATED [facility] URINALYSIS MICROSCOPIC EXAM 2023-04-30 18:30:30 Antoine [facility] URINE CULTURE 2023-04-30 18:30:30 Antoine [facility] URINALYSIS MICROSCOPIC EXAM 2023-04-30 18:30:30 Antoine [facility] COMPLETE BLOOD COUNT W/ 2023-04-30 14:51:42 Marcello Schultz [facility] [place] DIFFERENTIAL [facility] COMPREHENSIVE METABOLIC 2023-04-30 14:51:42 Marcello Schultz [facility] [place] PANEL [facility] CARBOHYDRATE ANTIGEN 15-3 2023-04-30 14:51:42 Marcello Schultz [facility] MAGNESIUM LEVEL 2023-04-30 14:51:42 Antoine [facility] PHOSPHORUS LEVEL 2023-04-30 14:51:42 Atnoine [facility] GLUCOSE, FASTING 2023-04-30 14:51:42 Antoine [facility] .CBC 2023-04-30 14:51:42 Antoine [facility] DIFFERENTIAL 2023-04-30 14:51:42 Antoine [facility] BLOOD UREA NITROGEN 2023-04-30 14:51:42 [facility] ELECTROLYTE PANEL 2023-04-30 14:51:42 Sa [facility] SERUM CREATININE 2023-04-30 14:51:42 Antoine [facility] .GLOMERULAR FILTRATION RATE 2023-04-30 14:51:42 Antoine [facility] CALCIUM LEVEL 2023-04-30 14:51:42 Antoine [facility] ALBUMIN LEVEL 2023-04-30 14:51:42 Antoine [facility] ALKALINE PHOSPHATASE 2023-04-30 14:51:42 Antoine [facility] ALANINE AMINOTRANSFERASE 2023-04-30 14:51:42 Marcello Schultz [facility] ASPARTATE AMINOTRANSFERASE 2023-04-30 14:51:42 Antoine [facility] TOTAL PROTEIN 2023-04-30 14:51:42 [facility] FRACTIONATED BILIRUBIN 2023-04-30 14:51:42 Antoine [facility] HEMOGLOBIN A1C 2023-04-02 13:50:00 Antoine [facility] COMPLETE BLOOD COUNT W/ 2023-04-02 13:50:00 Marcello Schultz [facility] DIFFERENTIAL [facility] PROTHROMBIN TIME 2023-04-02 13:50:00 Antoine [facility] ALBUMIN LEVEL 2023-04-02 13:50:00 Antoine [facility] GLUCOSE, FASTING 2023-04-02 13:50:00 Antoine [facility] CREATININE 2023-04-02 13:50:00 Marcello Schultz [facility] ALKALINE PHOSPHATASE 2023-04-02 13:50:00 Marcello Schultz [facility] ALANINE AMINOTRANSFERASE 2023-04-02 13:50:00 Marcello Schultz [facility] ASPARTATE AMINOTRANSFERASE 2023-04-02 13:50:00 Antoine [facility] LIPASE LEVEL 2023-04-02 13:50:00 Abouhaly [facility] COMPREHENSIVE METABOLIC 2023-04-02 13:50:00 Marcello Schultz [facility] PANEL [facility] CARBOHYDRATE ANTIGEN 15-3 2023-04-02 13:50:00 Marcello Schultz [facility] .CBC 2023-04-02 13:50:00 Antoine [facility] DIFFERENTIAL 2023-04-02 13:50:00 Antoine [facility] SERUM CREATININE 2023-04-02 13:50:00 Antoine [facility] .GLOMERULAR FILTRATION RATE 2023-04-02 13:50:00 Antoine [facility] BLOOD UREA NITROGEN 2023-04-02 13:50:00 Antoine [facility] ELECTROLYTE PANEL 2023-04-02 13:50:00 Antoine [facility] y [facility] CALCIUM LEVEL 2023-04-02 13:50:00 Antoine [facility] TOTAL PROTEIN 2023-04-02 13:50:00 Abocurtis [facility] FRACTIONATED BILIRUBIN 2023-04-02 13:50:00 Antoine [facility] ASSIGNMENT OF BENEFITS 2023-03-21 19:33:42 Doctor Unassigned, [facility] [place] [facility] US ARM VENOUS DOPPLER RIGHT 2023-03-10 20:19:00 Edis Luciano [facility] COMPLETE BLOOD COUNT W/ 2023-03-05 16:05:45 Abouharb, Sausan [facility] [place] DIFFERENTIAL [facility] COMPREHENSIVE METABOLIC 2023-03-05 16:05:45 AbouharbMarcello [facility] PANEL [facility] CARBOHYDRATE ANTIGEN 15-3 2023-03-05 16:05:45 Abouharb, Sausasai [facility] LIPASE LEVEL 2023-03-05 16:05:45 Abouharb, [facility] PHOSPHORUS LEVEL 2023-03-05 16:05:45 Abouharb, [facility] MAGNESIUM LEVEL 2023-03-05 16:05:45 Abouharb, [facility] .CBC 2023-03-05 16:05:45 Abouharb, [facility] DIFFERENTIAL 2023-03-05 16:05:45 Abouharb, [facility] GLUCOSE LEVEL 2023-03-05 16:05:45 Abouharb, [facility] BLOOD UREA NITROGEN 2023-03-05 16:05:45 [facility]ouharb [facility] ELECTROLYTE PANEL 2023-03-05 16:05:45 Abouharb, [facility] SERUM CREATININE 2023-03-05 16:05:45 Abouharb, [facility] .GLOMERULAR FILTRATION RATE 2023-03-05 16:05:45 Abouharb, [facility] CALCIUM LEVEL 2023-03-05 16:05:45 Abouharb, [facility] ALBUMIN LEVEL 2023-03-05 16:05:45 Abouharb, [facility] ALKALINE PHOSPHATASE 2023-03-05 16:05:45 Abouharb, Sausan Univer [facility] ALANINE AMINOTRANSFERASE 2023-03-05 16:05:45 AboMarcello acevedo [facility] ASPARTATE AMINOTRANSFERASE 2023-03-05 16:05:45 [facility]Sa [facility] TOTAL PROTEIN 2023-03-05 16:05:45 [facility] FRACTIONATED BILIRUBIN 2023-03-05 16:05:45 AboMarcello acevedo [facility] NM BONE SCAN WHOLE BODY 2023-03-03 17:18:00 AboMarcello acevedo [facility] CHEST ABDOMEN PELVIS W 2023-03-03 16:38:00 Marcello Schultz [facility] CONTRAST [facility] CARBOHYDRATE ANTIGEN 15-3 2023-02-05 14:30:00 AbouharbMarcello [facility] [place] COMPLETE BLOOD COUNT W/ 2023-02-05 14:30:00 Marcello Schultz [facility] DIFFERENTIAL [facility] COMPREHENSIVE METABOLIC 2023-02-05 14:30:00 Marcello Schultz [facility] PANEL [facility] PHOSPHORUS LEVEL 2023-02-05 14:30:00 [facility] MAGNESIUM LEVEL 2023-02-05 14:30:00 [facility] GLUCOSE LEVEL 2023-02-05 14:30:00 Aboaly [facility] BLOOD UREA NITROGEN 2023-02-05 14:30:00 Koryaly [facility] ELECTROLYTE PANEL 2023-02-05 14:30:00 Koryarb [facility] SERUM CREATININE 2023-02-05 14:30:00 [facility] .GLOMERULAR FILTRATION RATE 2023-02-05 14:30:00 Antoine [facility] CALCIUM LEVEL 2023-02-05 14:30:[address] [facility] ALBUMIN LEVEL 2023-02-05 14:30:00 [facility] ALKALINE PHOSPHATASE 2023-02-05 14:30:00 [facility] ALANINE AMINOTRANSFERASE 2023-02-05 14:30:00 Marcello Schultz [facility] ASPARTATE AMINOTRANSFERASE 2023-02-05 14:30:00 [facility] TOTAL PROTEIN 2023-02-05 14:30:00 [facility] FRACTIONATED BILIRUBIN 2023-02-05 14:30:00 Antoine [facility] .CBC 2023-02-05 14:30:00 Antoine [facility] DIFFERENTIAL 2023-02-05 14:30:00 Antoine [facility] COMPREHENSIVE METABOLIC 2023-01-08 14:39:48 Marcello Schultz [facility] PANEL [facility] COMPLETE BLOOD COUNT W/ 2023-01-08 14:39:48 Marcello Schultz [facility] DIFFERENTIAL [facility] CARBOHYDRATE ANTIGEN 15-3 2023-01-08 14:39:48 Marcello Schultz U [facility] MAGNESIUM LEVEL 2023-01-08 14:39:48 Antoine [facility] PHOSPHORUS LEVEL 2023-01-08 14:39:48 Antoine [facility] GLUCOSE LEVEL 2023-01-08 14:39:48 Antoine [facility] BLOOD UREA NITROGEN 2023-01-08 14:39:48 Abouharb, [facility] ELECTROLYTE PANEL 2023-01-08 14:39:48 Abouhaly, [facility] SERUM CREATININE 2023-01-08 14:39:48 Abouhaly, [facility] .GLOMERULAR FILTRATION RATE 2023-01-08 14:39:48 [facility] CALCIUM LEVEL 2023-01-08 14:39:48 Abouharb, [facility] ALBUMIN LEVEL 2023-01-08 14:39:48 Abouharb, [facility] ALKALINE PHOSPHATASE 2023-01-08 14:39:48 Abocurtis [facility] ALANINE AMINOTRANSFERASE 2023-01-08 14:39:48 Antoine [facility] [place] ASPARTATE AMINOTRANSFERASE 2023-01-08 14:39:48 Abouharb, [facility] TOTAL PROTEIN 2023-01-08 14:39:48 [facility] FRACTIONATED BILIRUBIN 2023-01-08 14:39:48 Aboaly, [facility] .CBC 2023-01-08 14:39:48 [facility] DIFFERENTIAL 2023-01-08 14:39:48 [facility] GLUCOSE, FASTING 2022-12-19 18:13:02 Abouhaly [facility] COMPLETE BLOOD COUNT W/ 2022-12-05 16:38:14 [facility] PROTHROMBIN TIME 2022-12-05 16:38:14 Abocurtis [facility] ALBUMIN LEVEL 2022-12-05 16:38:14 Koryuhaly [facility] GLUCOSE, FASTING 2022-12-05 16:38:14 Antoine [facility] CREATININE 2022-12-05 16:38:14 [facility] BILIRUBIN TOTAL 2022-12-05 16:38:14 Antoine [facility] ALKALINE PHOSPHATASE 2022-12-05 16:38:14 Antoine [facility] ALANINE AMINOTRANSFERASE 2022-12-05 16:38:14 [facility] [place] ASPARTATE AMINOTRANSFERASE 2022-12-05 16:38:14 [facility] LIP[facility]EL 2022-12-05 16:38:14 [facility] HEMOGLOBIN A1C 2022-12-05 16:38:14 [facility] .CBC 2022-12-05 16:38:14 Antoine [facility] DIFFERENTIAL 2022-12-05 16:38:14 [facility] SERUM CREATININE 2022-12-05 16:38:14 [facility] .GLOMERULAR FILTRATION RATE 2022-12-05 16:38:14 [facility] CARBOHYDRATE ANTIGEN 15-3 2022-12-03 14:43:00 Marcello Schultz [facility] COMPLETE BLOOD COUNT W/ 2022-12-03 14:43:00 Marcello Schultz [facility] [place] DIFFERENTIAL [facility] COMPREHENSIVE METABOLIC 2022-12-03 14:43:00 Marcello Schultz [facility] [place] PANEL [facility] PHOSPHORUS LEVEL 2022-12-03 14:43:00 Antoine [facility] MAGNESIUM LEVEL 2022-12-03 14:43:00 Antoine [facility] GLUCOSE LEVEL 2022-12-03 14:43:00 [facility] BLOOD UREA NITROGEN 2022-12-03 14:43:00 [facility] ELECTROLYTE PANEL 2022-12-03 14:43:00 [facility] SERUM CREATININE 2022-12-03 14:43:00 [facility] .GLOMERULAR FILTRATION RATE 2022-12-03 14:43:00 [facility] CALCIUM LEVEL 2022-12-03 14:43:00 [facility] ALBUMIN LEVEL 2022-12-03 14:43:00 [facility] ALKALINE PHOSPHATASE 2022-12-03 14:43:00 [facility] ALANINE AMINOTRANSFERASE 2022-12-03 14:43:00 [facility] ASPARTATE AMINOTRANSFERASE 2022-12-03 14:43:00 [facility] TOTAL PROTEIN 2022-12-03 14:43:00 [facility] FRACTIONATED BILIRUBIN 2022-12-03 14:43:00 [facility] .CBC 2022-12-03 14:43:00 [facility] DIFFERENTIAL 2022-12-03 14:43:00 [facility] QIAC SERVICES 2022-11-15 17:09:14 Adan [facility] o f [facility] NM BONE SCAN WHOLE BODY 2022-11-08 17:55:00 [facility] CT CHEST ABDOMEN PELVIS W 2022-11-08 16:39:25 AboMacrello acevedo [facility] CONTRAST [facility] PETCT SUBSEQUENT TREATMENT 2022-10-25 17:28:23 Abocurtis [facility] STRATEGY [facility] COMPREHENSIVE METABOLIC 2022-10-23 18:23:00 Marcello Schultz [facility] PANEL [facility] COMPLETE BLOOD COUNT W/ 2022-10-23 18:23:00 AbouharbMarcello Uni [facility] DIFFERENTIAL [facility] CARBOHYDRATE ANTIGEN 15-3 2022-10-23 18:23:00 AbouhMarcello lu [facility] PHOSPHORUS LEVEL 2022-10-23 18:23:00 Abouharb, [facility] MAGNESIUM LEVEL 2022-10-23 18:23:00 Aboarb, [facility] GLUCOSE LEVEL 2022-10-23 18:23:00 Abouharb, [facility] BLOOD UREA NITROGEN 2022-10-23 18:23:00 Aboarb [facility] ELECTROLYTE PANEL 2022-10-23 18:23:00 Abouharb, [facility] SERUM CREATININE 2022-10-23 18:23:00 [facility] .GLOMERULAR FILTRATION RATE 2022-10-23 18:23:00 [facility] CALCIUM LEVEL 2022-10-23 18:23:00 Abouharb, [facility] ALBUMIN LEVEL 2022-10-23 18:23:[address] [facility] ALKALINE PHOSPHATASE 2022-10-23 18:23:00 Aboarb [facility] ALANINE AMINOTRANSFERASE 2022-10-23 18:23:00 AboblessingarbMarcello iversL[facility] ASPARTATE AMINOTRANSFERASE 2022-10-23 18:23:00 Antoine [facility] TOTAL PROTEIN 2022-10-23 18:23:00 Antoine [facility] FRACTIONATED BILIRUBIN 2022-10-23 18:23:00 Antoine [facility] .CBC 2022-10-23 18:23:00 Antoine [facility] DIFFERENTIAL 2022-10-23 18:23:00 Antoine [facility] COMPLETE BLOOD COUNT W/ 2022-10-08 15:41:36 Marcello Schultz [facility] DIFFERENTIAL [facility] COMPREHENSIVE METABOLIC 2022-10-08 15:41:36 Marcello Schultz [facility] PANEL [facility] CARBOHYDRATE ANTIGEN 15-3 2022-10-08 15:41:36 Marcello Schultz [facility] MAGNESIUM LEVEL 2022-10-08 15:41:36 [facility] PHOSPHORUS LEVEL 2022-10-08 15:41:36 [facility] THYROID STIMULATING HORMONE 2022-10-08 15:41:36 Edis Luciano [facility] FREE THYROXINE 2022-10-08 15:41:36 Edis Luciano [facility] .CBC 2022-10-08 15:41:36 Antoine [facility] DIFFERENTIAL 2022-10-08 15:41:36 [facility] GLUCOSE LEVEL 2022-10-08 15:41:36 [facility] BLOOD UREA NITROGEN 2022-10-08 15:41:36 Antoine [facility] ELECTROLYTE PANEL 2022-10-08 15:41:36 Antoine [facility] SERUM CREATININE 2022-10-08 15:41:36 [facility] .GLOMERULAR FILTRATION RATE 2022-10-08 15:41:36 [facility] CALCIUM LEVEL 2022-10-08 15:41:36 [facility] ALBUMIN LEVEL 2022-10-08 15:41:36 [facility] ALKALINE PHOSPHATASE 2022-10-08 15:41:36 [facility] ALANINE AMINOTRANSFERASE 2022-10-08 15:41:36 [facility] ASPARTATE AMINOTRANSFERASE 2022-10-08 15:41:36 [facility] TOTAL PROTEIN 2022-10-08 15:41:36 [facility] FRACTIONATED BILIRUBIN 2022-10-08 15:41:36 [facility] IHC ER MATERIAL REQUEST 2022-10-01 17:33:23 Edis Luciano [facility] AP IHC HER2/ANTWAN MATERIAL 2022-10-01 17:33:23 Edis Luciano [facility] [place] REQUEST [facility] PATHOLOGY BIOPSY 2022-09-26 21:24:00 Delores Oakes [facility] INTERPRETATION [facility] COMPLETE BLOOD COUNT W/ 2022-09-05 15:36:33 Marcello Schultz [facility] [place] DIFFERENTIAL [facility] COMPREHENSIVE METABOLIC 2022-09-05 15:36:33 Marcello Schultz [facility] [place] PANEL [facility] PHOSPHORUS LEVEL 2022-09-05 15:36:33 Koryaly [facility] MAGNESIUM LEVEL 2022-09-05 15:36:33 Koryaly [facility] CARBOHYDRATE ANTIGEN 15-3 2022-09-05 15:36:33 [facility] [place] .CBC 2022-09-05 15:36:33 [facility] DI[facility] 2022-09-05 15:36:33 [facility] GLUCOSE LEVEL 2022-09-05 15:36:33 [facility] BLOOD UREA NITROGEN 2022-09-05 15:36:33 [facility]EL 2022-09-05 15:36:33 [facility] CREATININE 2022-09-05 15:36:33 [facility] .GLOMERULAR FILTRATION RATE 2022-09-05 15:36:33 [facility] CALCIUM LEVEL 2022-09-05 15:36:33 [facility] ALBUMIN LEVEL 2022-09-05 15:36:33 [facility] ALKALINE PHOSPHATASE 2022-09-05 15:36:33 KoryFormerly [facility] ALANINE AMINOTRANSFERASE 2022-09-05 15:36:33 [facility] [place] ASPARTATE AMINOTRANSFERASE 2022-09-05 15:36:33 [facility] TOTAL PROTEIN 2022-09-05 15:36:33 [facility] FRACTIONATED BILIRUBIN 2022-09-05 15:36:33 [facility] URINALYSIS WITH MICROSCOPIC 2022-09-04 00:20:00 Dixie Leblanc [facility] IF INDICATED [facility] BLOODCULTURE 2022-09-03 22:55:00 Dixie Leblanc [facility] COMPLETE BLOOD COUNT W/ 2022-09-03 22:55:00 Dixie Leblanc [facility] DIFFERENTIAL [facility] TYPE AND SCREEN 2022-09-03 22:55:00 Dixie Leblanc [facility] NT PRO BNP 2022-09-03 22:55:00 Dixie Leblanc [facility] D DIMER 2022-09-03 22:55:00 Dixie Leblanc [facility] PROTHROMBIN TIME 2022-09-03 22:55:00 Dixie Leblanc [facility] APTT 2022-09-03 22:55:00 Dixie Leblanc [facility] COMPREHENSIVE METABOLIC 2022-09-03 22:55:00 Dixie Leblanc [facility] PANEL [facility] MAGNESIUM LEVEL 2022-09-03 22:55:00 Dixie Leblanc [facility] PHOSPHORUS LEVEL 2022-09-03 22:55:00 Dixie Leblanc [facility] Results CBC 2022-09-03 22:55:00 Dixie Leblanc [facility] MANUAL DIFFERENTIAL 2022-09-03 22:55:00 Dixie Leblanc [facility] GLUCOSE LEVEL 2022-09-03 22:55:00 Dixie Leblanc [facility] BLOOD UREA NITROGEN 2022-09-03 22:55:00 Dixie Leblanc [facility] ELECTROLYTE PANEL 2022-09-03 22:55:00 Dixie Leblanc [facility] SERUM CREATININE 2022-09-03 22:55:00 Dixie Leblanc [facility] .GLOMERULAR FILTRATION RATE 2022-09-03 22:55:00 Dixie Leblanc [facility] CALCIUM LEVEL TOTAL 2022-09-03 22:55:00 Dixie Leblanc [facility] ALBUMIN LEVEL 2022-09-03 22:55:00 Dixie Leblanc [facility] ALKALINE PHOSPHATASE 2022-09-03 22:55:00 Dixie Leblanc [facility] ALANINE AMINOTRANSFERASE 2022-09-03 22:55:00 Dixie Leblanc [facility] ASPARTATE AMINOTRANSFERASE 2022-09-03 22:55:00 Dixie Leblanc [facility] TOTAL PROTEIN 2022-09-03 22:55:00 Dixie Leblanc [facility] ANTIBODY SCREEN 2022-09-03 22:55:00 Dixie Leblanc [facility] FRACTIONATED BILIRUBIN 2022-09-03 22:55:00 Dixie Leblanc [facility] TMP INTERPRETATION ANTIBODY 2022-09-03 22:55:00 Dixie Leblanc [facility] SCREEN NEGATIVE [facility] ABORH MANUAL 2022-09-03 22:55:00 Dixie Leblanc [facility] CLOT EXPIRATION DATE 2022-09-03 22:55:00 Dixie Leblanc [facility] US ARM VENOUS DOPPLER RIGHT 2022-09-03 22:14:46 Dixie Leblanc [facility] BASIC METABOLIC PANEL, 2022-08-22 20:52:16 Vivian Granados [facility] CALCIUM TOTAL [facility] VITAMIN D 25 HYDROXY LEVEL 2022-08-22 20:52:16 Edis Luciano [facility] GLUCOSE LEVEL 2022-08-22 20:52:16 Darwin Vivian E [facility] BLOOD UREA NITROGEN 2022-08-22 20:52:16 Vivian Granados [facility] ELECTROLYTE PANEL 2022-08-22 20:52:16 Vivian Granados [facility] SERUM CREATININE 2022-08-22 20:52:16 Vivian Granados [facility] .GLOMERULAR FILTRATION RATE 2022-08-22 20:52:16 Vivian Granados [facility] CALCIUM LEVEL TOTAL 2022-08-22 20:52:16 Vivian Granados [facility] HEAD NECK SOFT TISSUE 2022-08-22 20:33:00 Edis Luciano [facility] US RENAL 2022-08-22 20:17:46 Vivian Granados [facility] URINALYSIS 2022-03-29 00:43:00 Pabon, [facility] o [facility] NOTICE OF PRIVACY PRACTICES 2022-03-29 00:04:27 Doctor Angy jaramillo [facility] CONSENT/REFUSAL FOR 2022-03-29 00:03:59 Doctor Srinivas [facility] DIAGNOSIS AND TREATMENT [facility] Plan of Care Planned Activity Planned Date Details Comments Source Future Scheduled 2023-09-03 [facility] Test 20:21:19 malignant neoplasm of colon (procedure) [code = 602937567] Future Scheduled 2023-09-03 [facility] 20:21:19 malignant neoplasm of colon (procedure) [code = 944417519] Future Scheduled 2023-09-03 [facility] Test 20:21:19 malignant neoplasm of colon (procedure) [code = 545542749] Future Scheduled 2023-09-03 COVID-19 VACCINE (#1) [facility] Test 20:21:19 [code = COVID-19 VACCINE (#1)] Future Scheduled 2023-09-03 [facility] Test 20:21:19 malignant neoplasm of cervix (procedure) [code = 280331907] Future Scheduled 2023-09-03 BREAST CANCER [facility] Test 20:21:19 SCREENING [code = BREAST CANCER SCREENING] Future Scheduled 2023-09-03 [facility] Test 20:21:19 malignant neoplasm of colon (procedure) [code = 650008127] Future Scheduled 2023-09-03 [facility] Test 20:21:19 malignant neoplasm of colon (procedure) [code = 867759406] Future Scheduled 2023-09-03 SHINGLES [facility]INES ([facility] 20:21:19 of 2) [code = SHINGLES VACCINES (1 of 2)] Future Scheduled 2023-09-03 INFLUENZA VACCINE [facility] 20:21:19 (#1) [code = INFLUENZA VACCINE (#1)] Future Scheduled 2023-09-03 [facility] Test 20:21:19 malignant neoplasm of colon (procedure) [code = 886103504] Future Scheduled 2023-09-03 [facility] Test 20:21:19 malignant neoplasm of colon (procedure) [code = 728237173] Future Scheduled 2023-09-03 [facility] Test 20:21:19 malignant neoplasm of colon (procedure) [code = 001537454] Future Scheduled 2023-09-03 COVID-19 VACCINE (#1) Me [facility] Test 20:21:19 [code = COVID-19 VACCINE (#1)] Future Scheduled 2023-09-03 [facility] Test 20:21:19 malignant neoplasm of cervix (procedure) [code = 635685051] Future Scheduled 2023-09-03 BREAST CANCER [facility] Test 20:21:19 SCREENING [code = BREAST CANCER SCREENING] Future Scheduled 2023-09-03 [facility] Test 20:21:19 malignant neoplasm of colon (procedure) [code = 663409032] Future Scheduled 2023-09-03 [facility] Test 20:21:19 malignant neoplasm of colon (procedure) [code = 215588629] Future Scheduled 2023-09-03 SHINGLES VACCINES (1 [facility] 20:21:19 of 2) [code = SHINGLES VACCINES (1 of 2)] Future Scheduled 2023-09-03 IN[facility]UENZA VACCINE [facility] 20:21:19 (#1) [code = INFLUENZA VACCINE (#1)] Future Scheduled 2023-09-03 [facility] Test 20:21:19 malignant neoplasm of colon (procedure) [code = 860911171] Future Scheduled 2023-09-03 [facility] Test 20:21:19 malignant neoplasm of colon (procedure) [code = 834946021] Future Scheduled 2023-09-03 [facility] Test 20:21:19 malignant neoplasm of colon (procedure) [code = 988089667] Future Scheduled 2023-09-03 COVID-19 VACCINE (#1) Me [facility] Test 20:21:19 [code = COVID-19 VACCINE (#1)] Future Scheduled 2023-09-03 Screening for [facility] Test 20:21:19 malignant neoplasm of cervix (procedure) [code = 077985211] Future Scheduled 2023-09-03 BREAST CANCER [facility] Test 20:21:19 SCREENING [code = BREAST CANCER SCREENING] Future Scheduled 2023-09-03 Screening for [facility] Test 20:21:19 malignant neoplasm of colon (procedure) [code = 739448610] Future Scheduled 2023-09-03 Screening for [facility] Test 20:21:19 malignant neoplasm of colon (procedure) [code = 391603003] Future Scheduled 2023-09-03 SHINGLES VACCINES (1 Met [facility] Test 20:21:19 of 2) [code = SHINGLES VACCINES (1 of 2)] Future Scheduled 2023-09-03 INFLUENZA VACCINE [facility] Test 20:21:19 (#1) [code = INFLUENZA VACCINE (#1)] Future Scheduled 2023-09-03 COVID-19 Vaccination [facility] [place] Test 07:09:38 (3 - Moderna risk MD Farrellersrudy n Cancer series) [code = Center COVID-19 Vaccination (3 - Moderna risk series)] Future Scheduled 2023-09-03 COVID-19 Vaccination [facility] [place] Test 07:09:38 (3 - Moderna risk MD Rudolph n Cancer series) [code = Center COVID-19 Vaccination (3 - Moderna risk series)] Future Scheduled 2023-08-17 BREAST CANCER [facility] Test 20:38:32 SCREENING [code = BREAST CANCER SCREENING] Future Scheduled 2023-08-17 Screening for [facility] Test 20:38:32 malignant neoplasm of colon (procedure) [code = 488421860] Future Scheduled 2023-08-17 Screening for [facility] Test 20:38:32 malignant neoplasm of colon (procedure) [code = 561753977] Future Scheduled 2023-08-17 SHINGLES VACCINES (1 [facility] Test 20:38:32 of 2) [code = SHINGLES VACCINES (1 of 2)] Future Scheduled 2023-08-17 INFLUENZA VACCINE [facility] Test 20:38:32 (#1) [code = INFLUENZA VACCINE (#1)] Future Scheduled 2023-08-17 [facility] Test 20:38:32 malignant neoplasm of colon (procedure) [code = 237222569] Future Scheduled 2023-08-17 [facility] Test 20:38:32 malignant neoplasm of colon (procedure) [code = 060219355] Future Scheduled 2023-08-17 [facility] Test 20:38:32 malignant neoplasm of colon (procedure) [code = 750143274] Future Scheduled 2023-08-17 COVID-19 [facility] (#[facility] 20:38:32 [code = COVID-19 VACCINE (#1)] Future Scheduled 2023-08-17 [facility] Test 20:38:32 malignant neoplasm of cervix (procedure) [code = 458849180] Future Scheduled 2023-08-17 [facility] 12[facility]20 (3 - Moderna risk MD Klaudia gibbs Cancer series) [code = Center COVID-19 Vaccination (3 - Moderna risk series)] Encounters Start End Encounter Admission Attending Care Care Encounter Source Date/Time Date/Time Type Type Clinicians Facility Department ID 2023-08-27 Inpatient DAYSI LARA JAMIE AYALA [id number] 14:56:36 LIZET gibbs 2023-07-25 Inpatient UR TSIMBERIU JAMIE ICT Phase 1 [id number] 17:57:00 , APOSTOLIA [id number] And erso n 2023-07-03 Outpatient ADIBIJAMIE Urology [id number] 15:53:47 ANASTACIA gibbs 2023-05-30 Outpatient DAYSI ALEJANDRO MDA Pulm Med [id number] 13:33:54 JALIL gibbs 2023-02-11 Outpatient SYSTEM, JAMIE AYALA [id number] 11:36:58 PROVIDER Leandro o n 2022-12-20 Outpatient SYSTEM, JAMIE AYALA [id number] 12:39:43 PROVIDER Leandro o n 2022-09-24 Outpatient SYSTEM, JAMIE AYALA [id number] 09:02:26 PROVIDER Leandro o n 2022-06-05 Outpatient SYSTEM, MDA MDA [id number] 08:51:35 PROVIDER Leandro gibbs 2022-05-16 Outpatient ADIBI, MDA Urology [id number] 09:10:22 ANASTACIA gibbs 2022-05-02 [facility] [id number] Common 13:29:02 [facility] 2022-02-20 Outpatient STLMLC STLM Common 08:24:02 [facility] 2022-01-30 [facility] Common 08:55:04 [facility] 2022-01-28 Out[facility] Common 10:18:04 [facility] 2021-11-30 Outpatient SYSTEM, MDA MDA [id number] 12:24:59 PROVIDER Leandro gibbs 2021-10-24 Outpatient SYSTEM, MDA MDA [id number] 15:04:00 PROVIDER Leandro gibbs 2023-09-18 2023-09-18 Outpatient EL ABOARB, MDA MDA [id number] 15:56:27 15:56:27 MARCELLO gibbs 2023-09-18 2023-09-18 Outpatient EL RODON MDA MDA [id number] 14:03:20 15:12:50 Leandro REHMAN 2023-09-18 2023-09-18 Outpatient EL RODON MDA MDA [id number] 14:03:20 15:12:50 ORI [id number] Leandro gibbs 2023-09-17 2023-09-17 Outpatient EL ABOUHARB, MDA MDA [id number] 13:51:24 15:41:35 MARCELLO gibbs 2023-09-17 2023-09-17 Outpatient EL ABOUHARB, MDA MDA [id number] 13:17:39 13:51:31 MARCELLO gibbs 2023-09-17 2023-09-17 Outpatient EL ABOUHARB, MDA MDA [id number] 13:51:24 13:51:24 MARCELLO Jacobson108 Leandro o n 2023-08-23 2023-09-03 [facility] UR Abram Loza P 1.2.840.1 [id number] Univers 10:43:00 14:23:00 Encounter Allegra Henderson 84424.1.1 ity of [place], Ecaterina E 3.412.2.7 [facility] .3.678214 .8 [facility] 2023-08-23 2023-09-03 [facility] 1 [id number] NE 10:43:00 14:23:00 [id number] Leandro o n 2023-09-01 2023-09-01 [facility] [id number] 14:28:11 15:14:55 Leandro o sai 2023-09-01 2023-09-01 Inpatient FAVENITA, [facility] [id number] MD 12:24:55 13:16:40 KIM Leandro o n 2023-08-31 2023-08-31 Inpatient REID, [facility] MDA [id number] 13:27:44 13:53:32 ARIC Leandro o n 2023-08-31 2023-08-31 [facility] [id number] 11:32:56 12:43:06 Leandro o sai 2023-08-31 2023-08-31 Inpatient REID, [facility] MDA [id number] 10:22:12 10:22:21 ARIC Farrellers o sai 2023-08-29 2023-08-29 [facility], 1.2.840.1 [id number] [facility] 15:00:00 23:59:00 Encounter Tri 43874.1.1 it y of Pulfer 3.412.2.7 [place] .3.815984 MD Kong8 [facility] 2023-08-27 2023-08-27 Documentat Bao, 1.2.840.1 [id number] [facility] 00:00:00 00:00:00 ion Tri 58025.1.1 ity of Pulfer 3.412.2.7 [place] .3.820343 MD Kong8 [facility] 2023-08-27 2023-08-27 Orders Belkys Olverady 1.2.840.1 [id number] Univers 00:00:00 00:00:00 Only 40589.1.1 ity of 3.412.2.7 [place] .3.603141 MD Kong8 [facility] 2023-08-27 2023-08-27 Documentat Belkys Olverady 1.2.840.1 [id number] Univers 00:00:00 00:00:00 ion 13071.1.1 ity of 3.412.2.7 [place] .3.059146 MD Kong8 [facility] 2023-08-27 2023-08-27 Documentat Wade Koki 1.2.840.1 [id number] Univers 00:00:00 00:00:00 ion 04913.1.1 ity of 3.412.2.7 [place] .3.567560 MD Maria [facility] 2023-08-26 2023-08-26 Inpatient EL DUMBRANJ, MDA MDA [id number] 19:49:19 21:20:45 POOJAP[place]SCO Juan rso 2023-08-26 2023-08-26 Inpatient EL DUMBRANJ, MDA MDA [id number] 16:33:59 17:04:16 WM Farrelle rso n 2023-08-26 2023-08-26 Orders Abouharb, 1.2.840.1 [id number] Univers 00:00:00 00:00:00 Only Sausan 53239.1.1 ity of 3.412.2.7 [place] .3.989574 MD Kong8 [facility] 2023-08-26 2023-08-26 Orders de Lumban, 1.2.840.1 [id number] Univers 00:00:00 00:00:00 Only Debra C 62279.1.1 ity of 3.412.2.7 [place] .3.285845 MD .8 [facility] 2023-08-26 2023-08-26 Documentat Bao 1.2.840.1 [id number] Univers 00:00:00 00:00:00 ion Tri 62570.1.1 ity of Pulfer 3.412.2.7 [place] .3.686818 MD Kong8 [facility] 2023-08-26 2023-08-26 Documentat Bao 1.2.840.1 [id number] Univers 00:00:00 00:00:00 ion Tri 06609.1.1 ity of Pulfer 3.412.2.7 [place] .3.902829 MD Kong8 [facility] 2023-08-25 2023-08-25 Outpatient DAYSI [facility] [id number] 06:15:00 23:59:00 MARCELLO grant 2023-08-25 2023-08-25 Surgery Faiz, 1.2.840.1 [id number] [facility] 11:00:00 12:00:00 Kim 33436.1.1 ity of 3.412.2.7 [place] .3.377721 MD Kong8 [facility] 2023-08-25 2023-08-25 Inpatient DAYSI [facility] [id number] 08:55:19 09:17:57 ALLEGRA gibbs 2023-08-25 2023-08-25 Oumar Vallejo 1.2.840.1 [id number] Univers 00:00:00 00:00:00 Only Sarahi Grady 81061.1.1 i ty of 3.412.2.7 [place] .3.645785 MD Maria [facility] 2023-08-25 2023-08-25 Oumar Gore 1.2.840.1 [id number] Univers 00:00:00 00:00:00 Only Tri 30293.1.1 ity of Pulfer 3.412.2.7 [place] .3.935177 MD Kong8 [facility] 2023-08-24 2023-08-24 Inpatient DAYSI [facility] [id number] 18:32:28 18:32:37 ALLEGRA Leandrogeremias gibbs 2023-08-24 2023-08-24 Inpatient DAYSI [facility] [id number] 18:00:29 18:32:32 ALLEGRA gibbs 2023-08-24 2023-08-24 Prep for Merritt, 1.2.840.1 [id number] Univers 00:00:00 00:00:00 Surgery Syed 29949.1.1 ity of 3.412.2.7 [place] .3.230970 .8 [facility] 2023-08-23 2023-08-23 Inpatient [facility] [id number] 16:09:07 16:48:36 , ABRAM [facility] 2023-08-23 2023-08-23 Travel 1.2.840.1 1.2.673.531 [id number] Univers 00:00:00 00:00:00 42738.1.1 350.1.13.41 ity of 3.412.2.7 [place].3.698 [place] .3.306787 084.8 .8 [facility] 2023-08-22 2023-08-22 [facility] Kashif, 1.2.840.1 [id number] [facility] 15:10:13 23:59:00 Encounter Salty 26599.1.1 it y of 3.412.2.7 [place] .3.821801 .8 [facility] 2023-08-22 2023-08-22 Outpatient KASHIF [facility] [id number] 15:10:13 23:59:00 SHITYRON [id number] Leandro [facility] 2023-08-22 2023-08-22 [facility] 1.2.840.1 [id number] Univers 10:00:00 15:09:00 Encounter Lizet 16585.1.1 it y of 3.412.2.7 [place] .3.244535 MD Kong8 [facility] 2023-08-22 2023-08-22 Ancillary EL Urschel, 1.2.840.1 [id number] Univers 14:15:00 14:30:00 Procedure Juan 76154.1.1 i ty of 3.412.2.7 [place] .3.048260 MD Kong8 [facility] 2023-08-22 2023-08-22 Follow-Up Jennifer Wilkinson 1.2.840.1 [id number] Univers 12:00:00 14:27:57 Marcella Sherman 00687.1.1 ity of 3.412.2.7 [place] .3.473242 MD Kong8 [facility] 2023-08-22 2023-08-22 Ancillary EL Urschel, 1.2.840.1 [id number] Univers 14:00:00 14:15:00 Procedure Juan 14655.1.1 i ty of 3.412.2.7 [place] .3.548283 MD Kong8 [facility] 2023-08-22 2023-08-22 Telephone Reva, 1.2.840.1 [id number] Univers 00:00:00 00:00:00 Juan 94955.1.1 ity of 3.412.2.7 [place] .3.861306 MD Kong8 [facility] 2023-08-22 2023-08-22 Fredy Alegre, 1.2.840.1 [id number] Univers 00:00:00 00:00:00 Management Ambika Mejia 82679.1.1 ity of 3.412.2.7 [place] .3.361554 MD Kong8 [facility] 2023-08-22 2023-08-22 Oumar Rowland, 1.2.840.1 [id number] Univers 00:00:00 00:00:00 Only Salty 73824.1.1 ity of 3.412.2.7 [place] .3.797941 MD Maria [facility] 2023-08-22 2023-08-22 Travel 1.2.840.1 1.2.428.762 [id number] Univers 00:00:00 00:00:00 25011.1.1 350.1.13.41 ity of 3.412.2.7 [place]3.698 [place] .3.597178 084.8 MD Kong8 [facility] 2023-08-20 2023-08-20 Documentat Koki Olvera 1.2.840.1 [id number] Univers 00:00:00 00:00:00 ion 66294.1.1 ity of 3.412.2.7 [place] .3.765337 MD Kong8 [facility] 2023-08-17 2023-08-17 Documentat Koki Olvera 1.2.840.1 [id number] Univers 00:00:00 00:00:00 ion 86684.1.1 ity of 3.412.2.7 [place] .3.633023 MD Kong8 [facility] 2023-08-15 2023-08-15 Koki Díaz 1.2.840.1 [id number] [facility] 00:00:00 00:00:00 81543.1.1 ity of 3.412.2.7 [place] .3.276141 MD Kong8 [facility] 2023-08-15 2023-08-15 Orders Carlos Clemons 1.2.840.1 [id number] Univers 00:00:00 00:00:00 Only 39470.1.1 ity of 3.412.2.7 [place] .3.615483 MD Kong8 [facility] 2023-08-15 2023-08-15 Koki Martin 1.2.840.1 [id number] Univers 00:00:00 00:00:00 Only 87026.1.1 ity of 3.412.2.7 [place] .3.316053 MD Kong8 [facility] 2023-08-15 2023-08-15 Oumar Mejias 1.2.840.1 [id number] Univers 00:00:00 00:00:00 Only Sumaya Brizuela 61419.1.1 ity of 3.412.2.7 [place] .3.948077 MD [facility] 2023-08-14 2023-08-14 [facility] Josh Israel 1.2.840.1 [id number] Univers 12:00:00 12:00:00 Encounter Carly, Sivakumar 56953.1.1 ity of 3.412.2.7 [place] .3.964469 MD Kong8 [facility] 2023-08-14 2023-08-14 [facility] 1.2.840.1 [id number] Univers 12:00:00 12:00:00 Encounter Josh 00971.1.1 it y of 3.412.2.7 [place] .3.995582 MD [facility] 2023-08-14 2023-08-14 [facility] Vianca Culver 1.2.840.1 [id number] 1 [id number] Univers 10:00:00 11:59:00 Encounter 57524.1.1 it y of 3.412.2.7 [place] .3.920442 MD [facility] 2023-08-14 2023-08-14 Outpatient [facility] 102 9374-20 MD 10:00:00 10:00:00 789700 [facility] 2023-08-14 2023-08-14 Orders Tristen, 1.2.840.1 [id number] Univers 00:00:00 00:00:00 Only Jenniffer 66642.1.1 ity of 3.412.2.7 [place] .3.845081 MD Kong8 [facility] 2023-08-14 2023-08-14 [facility] 1.2.840.1 1.2.662.097 2969 [id number] Univers 00:00:00 00:00:00 31972.1.1 350.1.13.41 ity of 3.412.2.7 [place]7.3.698 [place] .3.4824[place] 084.8 MD [facility] 2023-08-12 2023-08-12 Anesthesia Vianca Campos 1.2.840.1 [id number] Univers 23:59:59 23:59:59 Event 32298.1.1 ity of 3.412.2.7 [place] .3.021323 MD [facility] 2023-08-12 2023-08-12 Fredy Blane, 1.2.840.1 [id number] Univers 00:00:00 00:00:00 Management Xiomara Chow 44973.1.1 ity of 3.412.2.7 [place] .3.985184 MD [facility] 2023-08-12 2023-08-12 Oumar Granados 1.2.840.1 [id number] Univers 00:00:00 00:00:00 Only Vivian Mejia 16044.1.1 ity of 3.412.2.7 [place] .3.783932 MD [facility] 2023-08-11 2023-08-11 [facility] Jose 1.2.840.1 [id number] 1111 [id number] Univers 11:30:00 23:59:00 Encounter Lizet 67512.1.1 it y of 3.412.2.7 [place] .3.103152 MD [facility] 2023-08-11 2023-08-11 Follow-Up Marcella Agarwal 1.2.840.1 [id number] [id number] Univers 14:40:00 14:40:00 Balbina Li 95160.1.1 i ty of 3.412.2.7 [place] .3.320323 MD [facility] 2023-08-11 2023-08-11 Koki Martin 1.2.840.1 [id number] 11 [id number] Univers 00:00:00 00:00:00 Only 40952.1.1 ity of 3.412.2.7 [place] .3.128164 MD [facility] 2023-08-11 2023-08-11 Orders Balbina Li 1.2.840.1 [id number] 049 [id number] Univers 00:00:00 00:00:00 Only 21923.1.1 ity of 3.412.2.7 [place] .3.106773 MD [facility] 2023-08-11 2023-08-11 Orders Joshua, 1.2.840.1 [id number] Univers 00:00:00 00:00:00 Only John Olmstead 38248.1.1 ity of 3.412.2.7 [place] .3.516613 MD [facility] 2023-08-11 2023-08-11 Travel 1.2.840.1 1.2.179.715 9047 [id number] Univers 00:00:00 00:00:00 49702.1.1 350.1.13.41 ity of 3.412.2.7 2.[place].7.3.698 [place]3.234977 084.8 MD [facility] 2023-08-08 2023-08-08 Orders [place], Carlos 1.2.840.1 [id number] 11 [id number] Univers 00:00:00 00:00:00 Only 47188.1.1 ity of 3.412.2.7 [place] .3.645172 MD [facility] 2023-08-07 2023-08-07 Documentat Koki Olvera 1.2.840.1 [id number] Univers 00:00:00 00:00:00 ion 01003.1.1 ity of 3.412.2.7 [place] .3.894434 MD [facility] 2023-08-07 2023-08-07 Koki Martin 1.2.840.1 [id number] 11 [id number] Univers 00:00:00 00:00:00 Only 75917.1.1 ity of 3.412.2.7 [place] .3.519769 MD [facility] 2023-08-06 2023-08-06 Orders Koki Olvera 1.2.840.1 [id number] 11 [id number] Univers 00:00:00 00:00:00 Only 67780.1.1 ity of 3.412.2.7 [place] .3.052498 MD Kong8 [facility] 2023-07-25 2023-08-05 [facility] NATALIYA Victorino Dawn 1.2.840.1 [id number] Univers 17:57:00 17:52:00 Encounter CarleenAnt 27801.1.1 ity of Hong Rodriguez 3.412.2.7 [place] Calle3.357755 Rashel Portillo .[address] [facility] 2023-08-04 2023-08-04 [facility], 1.2.840.1 [id number] 779 [id number] Univers 06:15:00 23:59:00 Encounter Marcello 51076.1.1 it y of 3.412.2.7 [place] .3.959990 .8 [facility] 2023-08-04 2023-08-04 Documentat Ligia, 1.2.840.1 [id number] 11 [id number] Univers 00:00:00 00:00:00 ion Brenna 30087.1.1 ity of 3.412.2.7 [place] .3.521549 .8 [facility] 2023-08-04 2023-08-04 Documentat Ligia, 1.2.840.1 [id number] 11 [id number] Univers 00:00:00 00:00:00 ion Brenna 02970.1.1 ity of 3.412.2.7 [place] .3.222348 .8 [facility] 2023-08-02 2023-08-02 Inpatient [facility] MDA MDA [id number] 20:12:00 20:50:31 , JOE gibbs 2023-08-01 2023-08-01 Inpatient [facility] MDA MDA 1111 [id number] 08:16:23 08:44:52 , YOLANDEMELO An derso n 2023-08-01 2023-08-01 Documentat Strong, 1.2.840.1 [id number] 11 [id number] Univers 00:00:00 00:00:00 ion Brenna 56840.1.1 ity of 3.412.2.7 [place] .3.301965 MD Kong8 [facility] 2023-08-01 2023-08-01 Documentat Strong, 1.2.840.1 [id number] 11 [id number] Univers 00:00:00 00:00:00 ion Brenna 36784.1.1 ity of 3.412.2.7 [place] .3.799707 MD Kong8 [facility] 2023-07-31 2023-07-31 Inpatient [facility] MDA MDA [id number] [id number] 19:56:35 20:06:42 , CLINTSTMELO An derso n 2023-07-31 2023-07-31 [facility]patient [facility] MDA [id number] 25 13:24:37 13:52:51 ANASTACIA Reeves o sai 2023-07-31 2023-07-31 Inpatient [facility] MDA MDA 1111 [id number] 07:17:30 07:35:00 , CLINTSTMELO Salcedo derso n 2023-07-31 2023-07-31 Orders Koki Olvera 1.2.840.1 [id number] 11 [id number] Univers 00:00:00 00:00:00 Only 25213.1.1 ity of 3.412.2.7 [place] .3.636332 MD Kong8 [facility] 2023-07-31 2023-07-31 Orders Raúl, 1.2.840.1 [id number] Univers 00:00:00 00:00:00 Only Kalpana 32167.1.1 ity of 3.412.2.7 [place] .3.064405 MD Kong8 [facility] 2023-07-30 2023-07-30 Inpatient [facility] MDA MDA 1111 [id number] 17:15:07 17:52:10 , JOE An derso n 2023-07-30 2023-07-30 Inpatient EUNICE CHEEK MDA MDA 1 [id number] 07:52:41 12:12:49 RAWLSMORGAN ALEXANDER derso n 2023-07-30 2023-07-30 Anesthesia Alba, 1.2.840.1 [id number] Univers 09:11:00 11:10:00 Event Eunice Galeano 81015.1.1 it y of 3.412.2.7 [place] .3.094267 .8 [facility] 2023-07-30 2023-07-30 Inpatient EL SILAS MDA MDA [id number] [id number] 05:05:09 05:14:53 , JOE Salcedo derso n 2023-07-30 2023-07-30 Orders Amadeo, 1.2.840.1 [id number] [facility] 00:00:00 00:00:00 Only Jt S 49453.1.1 ity of 3.412.2.7 [place] .3.165996 .8 [facility] 2023-07-28 2023-07-28 Hospital DAYSI Schneideroso, 1.2.840.1 [id number] 1111 [id number] Univers 10:13:38 23:59:00 Encounter Dariel Sifuentes 65963.1.1 ity of 3.412.2.7 [place] .3.117623 .8 [facility] 2023-07-28 2023-07-28 Anesthesia Analy Pringle 1.2.840.1 [id number] Univers 16:54:52 16:54:52 Event M 74526.1.1 ity of 3.412.2.7 [place] .3.316582 .8 [facility] 2023-07-28 2023-07-28 Outpatient DAYSI POLK MDA MDA [id number] 10:05:10 15:04:23 JESSICA Juan rso n 2023-07-28 2023-07-28 Documentat Koki Olvera 1.2.840.1 [id number] Univers 00:00:00 00:00:00 ion 32060.1.1 ity of 3.412.2.7 [place] .3.075230 MD [facility] 2023-07-27 2023-07-27 Orders [facility], 1.2.840.1 [id number] 1111 [id number] Univers 00:00:00 00:00:00 Only Gibran 80819.1.1 ity of 3.412.2.7 [place] .3.391835 MD Kong8 [facility] 2023-07-27 2023-07-27 Telephone Kin 1.2.840.1 [id number] Univers 00:00:00 00:00:00 a, 17635.1.1 ity of [place] .3.800143 MD [facility] 2023-07-26 2023-07-26 Travel 1.2.840.1 1.2.151.784 9163 [id number] Univers 00:00:00 00:00:00 02217.1.1 350.1.13.41 ity of 3.412.2.7 2.2.7.3.698 [place] .3.947414 08Adina [facility] 2023-07-25 2023-07-25 Telemedici Kin 1.2.840.1 [id number] Univers 11:20:00 15:14:47 ne a, 32118.1.1 ity of [place]412.2.[place] .3.579041 MD [facility] 2023-07-25 2023-07-25 Telephone Jose 1.2.840.1 [id number] Univers 00:00:00 00:00:00 Lizet 60033.1.1 ity of 3.412.2.7 [place] .3.428228 MD [facility] 2023-07-25 2023-07-25 Oumar Lara, 1.2.840.1 [id number] 16148 [id number] Univers 00:00:00 00:00:00 Only Lizet 57581.1.1 ity of 3.412.2.7 [place] .3.770403 MD [facility] 2023-07-24 2023-07-24 [facility] Lizet Schmidt 1.2.840.1 [id number] 5 [id number] Univers 10:15:00 23:59:00 Encounter Shirley Ruiz 14030.1.1 ity of 3.412.2.7 [place] .3.827706 MD Kong8 [facility] 2023-07-24 2023-07-24 Anesthesia Shirley Ruiz 1.2.840.1 10 [id number] Univers 14:56:00 16:01:00 Event Koki Whitney 26066.1.1 ity of 3.412.2.7 [place] .3.160428 MD [facility] 2023-07-24 2023-07-24 Follow-Up Jennifer Wilkinson 1.2.840.1 [id number] Univers 10:20:00 10:40:00 Savannah Briceno 07800.1.1 ity of 3.412.2.7 [place] .3.796967 MD Kong8 [facility] 2023-07-24 2023-07-24 Outpatient DAYSI [facility] [id number] 10:15:00 10:15:00 LIZET 968246 Leandro [facility] 2023-07-24 2023-07-24 [facility], 1.2.840.1 [id number] Univers 06:30:00 10:14:00 Encounter Josh 28087.1.1 it y of 3.412.2.7 [place] .3.356688 MD Kong8 [facility] 2023-07-24 2023-07-24 Travel 1.2.840.1 1.2.654.205 0764 [id number] Univers 00:00:00 00:00:00 18386.1.1 350.1.13.41 ity of 3.412.2.7 2.2.7.3.698 [place] .3.912102 084.8 MD Maria [facility] 2023-07-24 2023-07-24 Documentat Koki Olvera 1.2.840.1 [id number] Univers 00:00:00 00:00:00 ion 36062.1.1 ity of 3.412.2.7 [place] .3.575882 .8 [facility] 2023-07-23 2023-07-23 Rashard Rivera, 1.2.840.1 [id number] Univers 23:59:59 23:59:59 Event Naina 40673.1.1 ity of 3.412.2.7 [place] .3.821298 MD Kong8 [facility] 2023-07-23 2023-07-23 POALEX Schultz, 1.2.840.1 [id number] 1110 [id number] Univers 12:30:00 13:00:00 Appointvincent Reaevertonsai 89488.1.1 i ty of ts 3.412.2.7 [place] .3.385598 MD Kong8 [facility] 2023-07-23 2023-07-23 Fredy Rod, 1.2.840.1 [id number] [id number] Univers 00:00:00 00:00:00 Management Serg Pathak 97169.1.1 ity of 3.412.2.7 [place] .3.852508 MD [facility] 2023-07-22 2023-07-22 Kayode Martinez 1.2.840.1 [id number] 663 [id number] Univers 00:00:00 00:00:00 Sharon Brizuela 79662.1.1 ity of 3.412.2.7 [place] .3.909545 MD [facility] 2023-07-22 2023-07-22 Koki Martin 1.2.840.1 [id number] 11 [id number] Univers 00:00:00 00:00:00 Only 92402.1.1 ity of 3.412.2.7 [place] .3.892219 MD [facility] 2023-07-22 2023-07-22 Telephone Yoav, 1.2.840.1 [id number] 1110 [id number] Univers 00:00:00 00:00:00 Ayesha 56157.1.1 ity of 3.412.2.7 [place] .3.148519 MD Kong8 [facility] 2023-07-22 2023-07-22 Orders Jose, 1.2.840.1 [id number] [id number] Univers 00:00:00 00:00:00 Only Lizet 09832.1.1 ity of 3.412.2.7 [place] .3.763831 MD Kong8 [facility] 2023-07-21 2023-07-21 Emergency UR Yee, 1.2.840.1 [id number] 1110 [id number] Univers 21:32:00 23:08:00 Jairo 92031.1.1 ity of 3.412.2.7 [place] .3.152865 MD Kong8 [facility] 2023-07-21 2023-07-21 Travel 1.2.840.1 1.2.279.326 3234 [id number] Univers 00:00:00 00:00:00 45470.1.1 350.1.13.41 ity of 3.412.2.7 2.[place].7.3.698 [place] .3.217259 084.8 MD Kong8 [facility] 2023-07-18 2023-07-18 Outpatient [facility] [id number] 09:22:03 09:22:03 JENNIFER Reeves [facility] 2023-07-18 2023-07-18 Koki Martin 1.2.840.1 [id number] 11 [id number] Univers 00:00:00 00:00:00 Only 85198.1.1 ity of 3.412.2.7 [place] .3.261145 MD Kong8 [facility] 2023-07-18 2023-07-18 Carlos Rodriguez 1.2.840.1 [id number] 11 [id number] Univers 00:00:00 00:00:00 49981.1.1 ity of 3.412.2.7 [place] .3.713328 MD Maria [facility] 2023-07-17 [facility]23[facility]07-17 [facility] [id number] [id number] Univers 08:00:00 08:00:00 Encounter Stefania Bal 39298.1.1 ity of 3.412.2.7 [place] .3.379204 MD [facility] 2023-07-17 2023-07-17 [facility], 1.2.840.1 [id number] [id number] Univers 08:00:00 08:00:00 Encounter Jennifer Childs 60467.1.1 ity of 3.412.2.7 [place] .3.987887 MD [facility] 2023-07-17 2023-07-17 Rashard Guillermo 1.2.840.1 [id number] 1 [id number] Univers 01:02:34 01:02:34 Event Catrina Jim 40672.1.1 ity of 3.412.2.7 [place] .3.821699 MD Maria [facility] 2023-07-17 2023-07-17 Koki Martin 1.2.840.1 [id number] 11 [id number] Univers 00:00:00 00:00:00 Only 31428.1.1 ity of 3.412.2.7 [place] .3.158741 MD Maria [facility] 2023-07-17 2023-07-17 Travel 1.2.840.1 1.2.503.142 1154 [id number] Univers 00:00:00 00:00:00 87893.1.1 350.1.13.41 ity of 3.412.2.7 2.2.7.3.698 [place] .3.265727 084.8 MD Maria [facility] 2023-07-16 2023-07-16 [facility], 1.2.840.1 [id number] [id number] Univers 06:45:00 23:59:00 Encounter Jennifer Childs 53339.1.1 ity of 3.412.2.7 [place] .3.746879 MD Maria [facility] 2023-07-16 2023-07-16 Telemroyer Schultz, 1.2.840.1 [id number] 1 [id number] Univers 15:20:00 15:40:00 ne Marcello 44679.1.1 ity of 3.412.2.7 [place] .3.603916 MD Maria [facility] 2023-07-16 2023-07-16 Follow-Up DAYSI Dewey, 1.2.840.1 [id number] 1110 [id number] Univers 11:30:00 14:17:26 Josh 67724.1.1 ity of 3.412.2.7 [place] .3.991302 MD Maria [facility] 2023-07-16 2023-07-16 POEM Shed, 1.2.840.1 [id number] Univers 10:30:00 11:00:00 Appointmen Vivian Mejia 57447.1.1 ity of ts 3.412.2.7 [place] .3.080111 MD Maria [facility] 2023-07-16 2023-07-16 Orders Maco, 1.2.840.1 [id number] Univers 00:00:00 00:00:00 Only Josh 76652.1.1 ity of 3.412.2.7 [place] .3.484728 MD Maria [facility] 2023-07-16 2023-07-16 Orders Joshua, 1.2.840.1 [id number] Univers 00:00:00 00:00:00 Only John Olmstead 27742.1.1 ity of 3.412.2.7 [place] .3.924507 MD [facility] 2023-07-16 2023-07-16 Travel 1.2.840.1 1.2.047.341 1572 [id number] Univers 00:00:00 00:00:00 12994.1.1 350.1.13.41 ity of 3.412.2.7 2.2[place]7.3.698 [place] .3.210397 084.8 MD Kong8 [facility] 2023-07-15 2023-07-15 [facility] Jennifer Wilkinson 1.2.840.1 [id number] [id number] [facility] 12:54:47 23:59:00 Encounter Ranjan Fraser 40694.1.1 ity of 3.412.2.7 [place] .3.942294 MD Kong8 [facility] 2023-07-15 2023-07-15 Outpatient [facility] [id number] -20 12:54:47 23:59:00 [facility] 612823 [facility] 2023-07-15 2023-07-15 Orders Noemiarb, 1.2.840.1 [id number] 1110 [id number] Univers 00:00:00 00:00:00 Only Marcello 89304.1.1 ity of 3.412.2.7 [place] .3.419599 MD Kong8 [facility] 2023-07-15 2023-07-15 Orders Ester Comer 1.2.840.1 [id number] Univers 00:00:00 00:00:00 Only 71305.1.1 ity of 3.412.2.7 [place] .3.118236 MD Kong8 [facility] 2023-07-15 2023-07-15 Orders Koki Olvera 1.2.840.1 [id number] 11 [id number] Univers 00:00:00 00:00:00 Only 08922.1.1 ity of 3.412.2.7 [place] .3.859643 MD Kong8 [facility] 2023-07-15 2023-07-15 Travel 1.2.840.1 1.2.637.090 4893 [id number] Univers 00:00:00 00:00:00 73702.1.1 350.1.13.41 ity of 3.412.2.7 2.2.7.3.698 [place] .3.115777 084.8 MD Maira [facility] 2023-07-11 2023-07-11 [facility] Marcello Schultz 1.2.840.1 [id number] Univers 14:58:22 23:59:00 Encounter Nataly King 88937.1.1 ity of 3.412.2.7 [place] .3.687304 MD Maria [facility] 2023-07-11 2023-07-11 [facility], 1.2.840.1 [id number] [id number] Univers 09:30:00 14:57:00 Encounter Orelia Naz 23473.1.1 ity of 3.412.2.7 [place] .3.805383 MD Maria [facility] 2023-07-11 2023-07-11 [facility], 1.2.840.1 [id number] 1110 [id number] Univers 11:45:00 14:10:00 Procedure Orelia Naz 47507.1.1 ity of 3.412.2.7 [place] .3.714207 MD Maria [facility] 2023-07-11 2023-07-11 [facility], 1.2.840.1 [id number] 1110 [id number] Univers 11:00:00 11:30:00 Procedure Orelia Naz 74758.1.1 ity of 3.412.2.7 [place] .3.584074 MD Maria [facility] 2023-07-11 2023-07-11 [facility], 1.2.840.1 [id number] Univers 09:15:00 09:29:00 Encounter Orelia Naz 79844.1.1 ity of 3.412.2.7 [place] .3.110160 MD Maria [facility] 2023-07-11 2023-07-11 [facility], 1.2.840.1 [id number] 72459 [id number] Univers 09:00:00 09:14:00 Encounter Orelia Naz 30535.1.1 ity of 3.412.2.7 [place] .3.439051 MD Maria [facility] 2023-07-11 2023-07-11 Ancillary [facility] [place], 1.2.840.1 [id number] 1110 [id number] Univers 08:30:00 09:00:00 Procedure Jennifer Childs 93574.1.1 ity of 3.412.2.7 [place] .3.801878 MD Kong8 [facility] 2023-07-11 2023-07-11 Nataly Barba 1.2.840.1 [id number] 11 [id number] Univers 00:00:00 00:00:00 Only M 97942.1.1 ity of 3.412.2.7 [place] .3.205810 MD Kong8 [facility] 2023-07-11 2023-07-11 Travel 1.2.840.1 1.2.693.540 9914 [id number] Univers 00:00:00 00:00:00 94665.1.1 350.1.13.41 ity of 3.412.2.7 2.2[place]7.3.698 [place] .3.686456 084.8 MD Maria [facility] 2023-07-10 2023-07-10 Edis Chauhan 1.2.840.1 [id number] 02295 [id number] Univers 00:00:00 00:00:00 Only Ashanti 29772.1.1 ity of 3.412.2.7 [place] .3.334340 MD Maria [facility] 2023-07-09 2023-07-09 Edis Chauhan 1.2.840.1 [id number] Univers 00:00:00 00:00:00 Only Ashanti 32846.1.1 ity of 3.412.2.7 [place] .3.220134 MD Maria [facility] 2023-07-08 2023-07-08 [facility] DAYSI [place], 1.2.840.1 [id number] [id number] Univers 13:00:00 23:59:00 Encounter Laura 15022.1.1 it y of 3.412.2.7 [place] .3.929198 MD [facility] 2023-07-08 2023-07-08 Ancillary DAYSI Lombardo, 1.2.840.1 [id number] 1110 [id number] Univers 13:45:00 14:00:00 Procedure Radha Gibbs 72102.1.1 it y of 3.412.2.7 [place] .3.081728 MD [facility] [place] 2023-07-08 2023-07-08 [facility], 1.2.840.1 [id number] [id number] Univers 09:49:49 12:59:00 Encounter Cookie Brizuela 66344.1.1 it y of 3.412.2.7 [place] .3.445700 MD Kong8 [facility] [place] 2023-07-08 2023-07-08 Follow-Up [facility] [place] Jennifer Childs 1.2.840.1 1010 53135 [id number] Univers 11:40:00 12:00:00 Savannah Briceno 33425.1.1 ity of 3.412.2.7 [place] .3.414574 MD [facility] [place] 2023-07-08 2023-07-08 Follow-Up DAYSI Lombardo, 1.2.840.1 [id number] 1110 [id number] Univers 10:00:00 10:17:21 Radha N 66849.1.1 ity of 3.412.2.7 [place] .3.978508 MD [facility] [place] 2023-07-08 2023-07-08 [facility] Asher 1.2.840.1 [id number] Univers 09:00:00 09:48:00 Encounter Cookie Brizuela 61815.1.1 it y of 3.412.2.7 [place] .3.268208 MD Kong8 [facility] [place] 2023-07-08 2023-07-[address] [id number] -20 09:00:00 09:48:00 COOKIE [id number] Leandro gibbs 2023-07-08 2023-07-08 [facility] [place], 1.2.840.1 [id number] [id number] Univers 06:45:00 08:59:00 Encounter Jennifer Childs 79710.1.1 ity of 3.412.2.7 [place] .3.561430 MD [facility] 2023-07-08 2023-07-08 Ancillary DAYSI Sterling, 1.2.840.1 [id number] Univers 08:00:00 08:15:00 Procedure Cookie Brizuela 31655.1.1 it y of 3.412.2.7 [place] .3.794047 MD [facility] 2023-07-08 2023-07-08 Travel 1.2.840.1 1.2.761.458 [id number] Univers 00:00:00 00:00:00 91950.1.1 350.1.13.41 ity of 3.412.2.7 [place]3.698 [place] .3.6034[place] 084.Miranda [facility] 2023-07-07 2023-07-07 Kayode Rees 1.2.840.1 [id number] Univers 00:00:00 00:00:00 a, 72134.1.1 [facility] [place] .3.839251 MD [facility] 2023-07-07 2023-07-07 Kayode Martinez 1.2.840.1 [id number] Univers 00:00:00 00:00:00 Sharon A 09446.1.1 ity of 3.412.2.7 [place] .3.076498 MD [facility] 2023-07-07 2023-07-07 Orders Munira, 1.2.840.1 [id number] Univers 00:00:00 00:00:00 Only Radha Gibbs 99151.1.1 ity of 3.412.2.7 [place] .3.209599 MD [facility] 2023-07-03 2023-07-03 Education Blanca 1.2.840.1 [id number] Univers 00:00:00 00:00:00 Eri Randhawa 81544.1.1 i ty of 3.412.2.7 [place] .3.413522 MD [facility] 2023-07-03 2023-07-03 Orders Koki Olvera 1.2.840.1 [id number] Univers 00:00:00 00:00:00 Only 49481.1.1 ity of 3.412.2.7 [place] .3.940848 MD Kong8 [facility] 2023-07-03 2023-07-03 Orders Darwin 1.2.840.1 [id number] Univers 00:00:00 00:00:00 Only Vivian E 81680.1.1 ity of 3.412.2.7 [place] .3.309894 MD [facility] 2023-07-02 2023-07-02 Orders Koki Olvera 1.2.840.1 [id number] 11 [id number] Univers 00:00:00 00:00:00 Only 63428.1.1 ity of 3.412.2.7 [place] .3.126798 MD Maria [facility] 2023-07-02 2023-07-02 Orders Kin 1.2.840.1 [id number] Univers 00:00:00 00:00:00 Only a, 17625.1.1 ity of [place] .3.843992 MD [facility] 2023-07-02 2023-07-02 Orders Asher 1.2.840.1 [id number] Univers 00:00:00 00:00:00 Only Cookie Brizuela 03009.1.1 ity of 3.412.2.7 [place] .3.161912 MD [facility] 2023-07-02 2023-07-02 Orders Juan 1.2.840.1 [id number] Univers 00:00:00 00:00:00 Only Sharon A 29615.1.1 ity of 3.412.2.7 [place] .3.627730 MD [facility] 2023-07-02 2023-07-02 Orders Saleem, 1.2.840.1 [id number] Univers 00:00:00 00:00:00 Only Nancie 27351.1.1 ity of 3.412.2.7 [place] .3.275919 MD Kong8 [facility] 2023-07-01 2023-07-01 Telemedici Abouhaly, 1.2.840.1 [id number] 1 [id number] Univers 15:00:00 15:20:00 ne Marcello 99175.1.1 ity of 3.412.2.7 [place] .3.243931 MD Kong8 [facility] 2023-07-01 2023-07-01 Orders Asher, 1.2.840.1 [id number] Univers 00:00:00 00:00:00 Only Cookie Brizuela 08349.1.1 ity of 3.412.2.7 [place] .3.430670 MD [facility] 2023-06-30 2023-06-30 Documentat Koki Olvera 1.2.840.1 [id number] Univers 00:00:00 00:00:00 ion 14422.1.1 ity of 3.412.2.7 [place] .3.725056 MD [facility] 2023-06-30 2023-06-30 Koki Martin 1.2.840.1 [id number] Univers 00:00:00 00:00:00 Only 24676.1.1 ity of 3.412.2.7 [place] .3.078658 MD [facility] 2023-06-26 2023-06-27 Emergency ER Sarath Joshi 1.2.840.1 [id number] Univers 19:56:00 21:31:00 Matilda Herron 69340.1.1 ity of Essie Cardona 3.412.2.7 [place] .3.852760 MD [facility] 2023-06-26 2023-06-27 Outpatient ER DULCE, [facility] Emergency [id number] 19:56:00 21:31:00 ESSIE [id number] Juan rso n 2023-06-26 2023-06-26 Travel 1.2.840.1 1.2.781.918 2993 [id number] Univers 00:00:00 00:00:00 28935.1.1 350.1.13.41 ity of 3.412.2.[place].3.698 [place] .[place].0130[place] 084.8 MD [facility] 2023-06-25 2023-06-25 Hospital [facility] [place], 1.2.840.1 [id number] Univers 06:30:00 23:59:00 Encounter Jennifer Childs 74251.1.1 ity of 3.412.2.7 [place] .3.435056 MD [facility] 2023-06-25 2023-06-25 Consult DAYSI Dewey, 1.2.840.1 [id number] Univers 10:30:00 12:08:37 Josh 63172.1.1 ity of 3.412.2.7 [place] .3.652236 MD [facility] 2023-06-25 2023-06-25 Ancillary DAYSI Lombardo, 1.2.840.1 [id number] 1109 [id number] Univers 09:00:00 09:15:00 Procedure Radha Gibbs 86489.1.1 it y of 3.412.2.7 [place] .3.145420 MD [facility] 2023-06-25 2023-06-25 Travel 1.2.840.1 1.2.925.921 2105 [id number] Univers 00:00:00 00:00:00 61996.1.1 350.1.13.41 ity of 3.412.2.[place].3.698 [place] .3.0428[place] 084.8 MD .8 [facility] 2023-06-23 2023-06-23 Oumar Lombardo, 1.2.840.1 [id number] 4340 Univers 00:00:00 00:00:00 Only Radha N 01988.1.1 ity of 3.412.2.7 [place] .3.952395 MD [facility] 2023-06-20 2023-06-20 Oumar Cason, 1.2.840.1 [id number] 9662 Univers 00:00:00 00:00:00 Only Faydria 73423.1.1 ity of 3.412.2.7 [place] .3.608129 MD [facility] 2023-06-19 2023-06-19 Oumar Lombardo, 1.2.840.1 [id number] 8415 Univers 00:00:00 00:00:00 Only Radha N 66787.1.1 ity of 3.412.2.7 [place] .3.475009 MD [facility] 2023-06-18 2023-06-18 Telemedici Antoine, 1.2.840.1 [id number] 1 [id number] Univers 15:00:00 15:20:00 ne Marcello 54052.1.1 ity of 3.412.2.7 [place] .3.215153 MD [facility] 2023-06-16 2023-06-16 Orders Ever, C 1.2.840.1 [id number] 68579 Univers 00:00:00 00:00:00 Only Ashanti 62861.1.1 ity of 3.412.2.7 [place] .3.885409 MD [facility] 2023-06-12 2023-06-12 Follow-Up DAYSI Lombardo, 1.2.840.1 [id number] 1109 [id number] Univers 09:30:00 11:11:55 Radha N 07636.1.1 ity of 3.412.2.7 [place] .3.366620 MD [facility] 2023-06-12 2023-06-12 Ancillary DAYSI Lombardo, 1.2.840.1 [id number] 1109 [id number] Univers 08:50:00 09:00:00 Procedure Radha N 66253.1.1 it y of 3.412.2.7 [place] .3.451057 MD [facility] 2023-06-12 2023-06-12 Refnorm Rees 1.2.840.1 [id number] 11 [id number] Univers 00:00:00 00:00:00 a, 54979.1.1 ity of [place] .3.147995 MD [facility] 2023-06-12 2023-06-12 Refnorm Martinez 1.2.840.1 [id number] 090 [id number] Univers 00:00:00 00:00:00 Sharon A 87605.1.1 ity of 3.412.2.7 [place] .3.284737 MD [facility] 2023-06-12 2023-06-12 Travel 1.2.840.1 1.2.199.364 7719 093432 Univers 00:00:00 00:00:00 14348.1.1 350.1.13.41 ity of 3.412.2.7 [place]7.3.698 [place] .3.195572 084.Miranda [facility] 2023-06-11 2023-06-11 Follow-Up DAYSI Schultz, 1.2.840.1 [id number] Univers 11:00:00 14:19:42 Sausan 93452.1.1 ity of 3.412.2.7 [place] .3.968019 MD [facility] 2023-06-11 2023-06-11 Telemedici DAYSI Rees 1.2.840.1 [id number] Univers 13:20:00 14:16:05 ne a, 62251.1.1 ity of [place] .3.998419 MD [facility] 2023-06-11 2023-06-11 Ancillary DAYSI Lombardo, 1.2.840.1 [id number] 1109 [id number] Univers 13:45:00 14:00:00 Procedure Radha Gibbs 25264.1.1 it y of 3.412.2.7 [place] .3.720685 MD Kong8 [facility] 2023-06-11 2023-06-11 Outpatient Edis [facility] [id number] [id number] 09:46:55 09:52:49 Leandro o n 2023-06-11 2023-06-11 Travel 1.2.840.1 1.2.182.340 3981 [id number] Univers 00:00:00 00:00:00 52890.1.1 350.1.13.41 ity of 3.412.2.7 [place]7.3.698 [place] .3.719501 084.8 MD Kong8 [facility] 2023-06-05 2023-06-07 Hospital Jalil Bain 1.2.840.1 [id number] 064 [id number] Univers 09:23:00 14:01:00 Encounter Dion Cruz 25828.1.1 ity of Elijah German 3.412.2.7 [place] .3.403024 MD [facility] 2023-06-05 2023-06-05 Surgery Javon, 1.2.840.1 [id number] 8592 Univers 10:15:00 12:20:00 Jalil Chau 70919.1.1 it y of 3.412.2.7 [place] .3.021507 MD Kong8 [facility] 2023-06-05 2023-06-05 Anesthesia Rosalie, 1.2.840.1 [id number] Univers 10:53:00 12:17:00 Event Jose 50836.1.1 ity of 3.412.2.7 [place] .3.571620 MD [facility] 2023-06-05 2023-06-05 Outpatient DAYSI ALEJANDRO MDA MDA [id number] 10:08:10 10:08:10 JALIL Leandrogeremias gibbs 2023-06-05 2023-06-05 Orders Etchegaray- 1.2.840.1 [id number] 11 [id number] Univers 00:00:00 00:00:00 Only Yaima, 21543.1.1 ity of Dion 3.412.2.7 [place] .3.307275 MD Kong8 [facility] 2023-06-05 2023-06-05 Travel 1.2.840.1 1.2.903.392 3305 [id number] Univers 00:00:00 00:00:00 52870.1.1 350.1.13.41 ity of 3.412.2.7 [place]7.3.698 [place] .3.446439 084.8 MD [facility] 2023-06-04 2023-06-04 Rashard Quintero, 1.2.840.1 [id number] 152 [id number] Univers 23:59:59 23:59:59 Event Amna Grady 10501.1.1 ity of 3.412.2.7 [place] .3.135031 MD [facility] 2023-06-04 2023-06-04 POEM DAYSI Schultz, 1.2.840.1 [id number] 1108 [id number] Univers 16:00:00 16:30:00 Sukhjinder Armendariz 24570.1.1 i ty of ts 3.412.2.7 [place] .3.800117 MD [facility] 2023-06-04 2023-06-04 Orders Edis Luciano 1.2.840.1 [id number] Univers 00:00:00 00:00:00 Only Ashanti 38113.1.1 ity of 3.412.2.7 [place] .3.284445 MD [facility] 2023-06-03 2023-06-03 Ancillary DAYSI Franklinarb, 1.2.840.1 [id number] 11 [id number] Univers 11:30:00 12:30:00 Procedure Charanjitn 41739.1.1 it y of 3.412.2.7 [place] .3.244557 MD [facility] 2023-06-03 2023-06-03 Evaluation EL NoemialyMarcello 1.2.840.1 1020 48963 [id number] Univers 09:30:00 10:30:00 Dayanara Pizano 90960.1.1 ity of 3.412.2.7 [place] .3.382789 MD [facility] 2023-06-03 2023-06-03 Orders Noemialy, 1.2.840.1 [id number] 1108 [id number] Univers 00:00:00 00:00:00 Only caleb 59437.1.1 ity of 3.412.2.7 [place] .3.276103 MD [facility] 2023-06-03 2023-06-03 Travel 1.2.840.1 1.2.263.949 1659 [id number] Univers 00:00:00 00:00:00 80413.1.1 350.1.13.41 ity of 3.412.2.7 [place].7.3.698 [place] .3.275098 084.8 MD [facility] 2023-06-02 2023-06-02 Follow-Up EL Adibi, 1.2.840.1 [id number] 1108 [id number] Univers 13:30:00 15:37:46 Mehrad 62957.1.1 ity of 3.412.2.7 [place] .3.237469 MD [facility] 2023-06-02 2023-06-02 Office EL Adibi, 1.2.840.1 [id number] 9546 Univers 13:30:00 14:00:00 Visit Mehrad 39808.1.1 ity of 3.412.2.7 [place] .3.366346 MD [facility] 2023-06-02 2023-06-02 Follow-Up EL Lombardo, 1.2.840.1 [id number] 1108 [id number] Univers 08:00:00 10:53:49 Radha N 32716.1.1 ity of 3.412.2.7 [place] .3.251643 MD [facility] 2023-06-02 2023-06-02 Ancillary EL Lombardo, 1.2.840.1 [id number] 1108 [id number] Univers 09:45:00 09:55:00 Procedure Radha N 01057.1.1 it y of 3.412.2.7 [place] .3.718516 MD [facility] 2023-06-02 2023-06-02 Ancillary EL Javon, 1.2.840.1 [id number] 1108 [id number] Univers 07:15:00 07:30:00 Procedure Jalil F 44398.1.1 ity of 3.412.2.7 [place] .3.291112 MD [facility] 2023-06-02 2023-06-02 Orders Edis Luciano 1.2.840.1 [id number] [id number] Univers 00:00:00 00:00:00 Only Ashanti 55386.1.1 ity of 3.412.2.7 [place] .3.178536 MD [facility] 2023-06-02 2023-06-02 Prep for Lombardo, 1.2.840.1 [id number] 65621 [id number] Univers 00:00:00 00:00:00 Surgery Radha N 93423.1.1 ity of 3.412.2.7 [place] .3.007810 MD [facility] 2023-06-02 2023-06-02 Travel 1.2.840.1 1.2.076.789 3409 [id number] Univers 00:00:00 00:00:00 41850.1.1 350.1.13.41 ity of 3.412.2.7 [place]7.3.698 [place] .3.356952 084.8 MD [facility] 2023-06-02 2023-06-02 Telephone Lombardo, 1.2.840.1 [id number] 1108 [id number] Univers 00:00:00 00:00:00 Radha N 49922.1.1 ity of 3.412.2.7 [place] .3.921109 MD [facility] 2023-06-01 2023-06-01 Refnorm Franklinaly, 1.2.840.1 [id number] 1108 [id number] Univers 00:00:00 00:00:00 Sausasai 88923.1.1 ity of 3.412.2.7 [place] .3.554476 MD [facility] 2023-05-30 2023-05-30 [facility] 1.2.840.1 [id number] 1 [id number] Univers 15:09:00 23:59:00 Encounter parveen, 28871.1.1 it y of Genny F 3.412.2.7 [place] .3.033819 MD [facility] 2023-05-30 2023-05-30 Prep for Lombardo, 1.2.840.1 [id number] 87950 Univers 00:00:00 00:00:00 Surgery Radha N 22890.1.1 ity of 3.412.2.7 [place] .3.927945 MD [facility] 2023-05-30 2023-05-30 Telephone Link, 1.2.840.1 [id number] Univers 00:00:00 00:00:00 Bessie Mendoza 52522.1.1 i ty of 3.412.2.7 [place] .3.295391 MD [facility] 2023-05-28 2023-05-28 [facility] DAYSI Solano, 1.2.840.1 [id number] 422 [id number] Univers 19:19:00 23:59:00 Encounter Serge 70003.1.1 it y of Luke 3.412.2.7 [place] .3.071586 MD [facility] 2023-05-28 2023-05-28 Infusion Edis Mclean 1.2.840.1 [id number] 1107 [id number] Univers 12:30:00 13:23:34 Ashanti 43943.1.1 ity of 3.412.2.7 [place] .3.036776 MD [facility] 2023-05-28 2023-05-28 Follow-Up EL Koryarb, 1.2.840.1 [id number] 11 [id number] [facility] 11:20:00 13:07:07 Marcello 78153.1.1 ity of 3.412.2.7 [place] .3.725027 MD [facility] 2023-05-28 2023-05-28 Travel 1.2.840.1 1.2.985.833 7458 [id number] Univers 00:00:00 00:00:00 15094.1.1 350.1.13.41 ity of 3.412.2.7 2.2.7.3.698 [place] .3.123734 084.8 MD [facility] 2023-05-27 2023-05-27 Ancillary Aboarb, 1.2.840.1 [id number] 11 [id number] [facility] 11:40:00 14:05:00 Procedure Sausan 23513.1.1 it y of 3.412.2.7 [place] .3.605938 MD [facility] 2023-05-27 2023-05-27 Ancillary Aboarb, 1.2.840.1 [id number] 11 [id number] Univers 09:30:00 10:00:00 Procedure Sausan 59746.1.1 it y of 3.412.2.7 [place] .3.023623 MD [facility] 2023-05-27 2023-05-27 Ancillary Aboarb, 1.2.840.1 [id number] 11 [id number] Univers 07:00:00 07:30:00 Procedure Sausan 65860.1.1 it y of 3.412.2.7 [place] .3.636624 MD [facility] 2023-05-27 2023-05-27 Outpatient EL ABOARB, MDA MDA [id number] 06:49:28 06:57:18 MARCELLO gibbs 2023-05-21 2023-05-21 Surgery Javon, 1.2.840.1 [id number] Univers 13:30:00 14:40:00 Jalil Chau 57130.1.1 it y of 3.412.2.7 [place] .3.672848 MD [facility]8 [facility] 2023-05-21 2023-05-21 Hospital EL Javon, 1.2.840.1 [id number] [id number] Univers 12:55:00 14:33:00 Encounter Jalil Chau 13704.1.1 ity of 3.412.2.7 [place] .3.960551 MD Kong8 [facility] 2023-05-21 2023-05-21 Outpatient EL JAVON, MDA MDA [id number] 13:10:13 13:10:13 JALIL gibbs 2023-05-21 2023-05-21 Consult EL Javon, 1.2.840.1 [id number] Univers 10:15:00 11:19:59 Jalil Chau 17056.1.1 it y of 3.412.2.7 [place] .3.639958 MD Kong8 [facility] 2023-05-21 2023-05-21 Travel 1.2.840.1 1.2.589.593 1272 [id number] Univers 00:00:00 00:00:00 99837.1.1 350.1.13.41 ity of 3.412.2.7 [place].7.3.698 [place] .3.557973 084.8 .8 Klaudia [facility]bs [facility] 2023-05-20 2023-05-20 Outpatient EL EMMAIBJanina, MDA MDA [id number] 11:16:21 11:22:43 ANASTACIA gibbs 2023-05-20 2023-05-20 Travel 1.2.840.1 1.2.167.125 9412 [id number] Univers 00:00:00 00:00:00 31346.1.1 350.1.13.41 ity of 3.412.2.7 2.[place].7.3.698 [place] .3.785773 084.8 MD [facility] 2023-05-07 2023-05-08 Nutrition DAYSI Korycurtis Charanjitsai 1.2.840.1 19181 [id number] [id number] Univers 14:30:00 08:45:43 Soha Pink 30165.1.1 ity of 3.412.2.7 [place] .3.096423 MD [facility] 2023-05-08 2023-05-08 José LuisCarlos Suárez 1.2.840.1 [id number] 11 [id number] Univers 00:00:00 00:00:00 23760.1.1 ity of 3.412.2.7 [place] .3.777971 MD [facility] 2023-05-05 2023-05-05 Prep for Vilma, 1.2.840.1 [id number] 11 [id number] Univers 00:00:00 00:00:00 Surgery Brenna 50287.1.1 ity of 3.412.2.7 [place] .3.856310 MD [facility] 2023-05-01 2023-05-01 Edis Chauhan 1.2.840.1 [id number] [id number] Univers 00:00:00 00:00:00 Only Ashanti 41958.1.1 ity of 3.412.2.7 [place] .3.656428 MD [facility] 2023-04-30 2023-04-30 Ancillary EL Koryuharb, 1.2.840.1 [id number] 11 [id number] Univers 14:00:00 15:00:00 Procedure Sausan 65302.1.1 it y of 3.412.2.7 [place] .3.360254 MD [facility] 2023-04-30 2023-04-30 Ancillary EL Abouharb, 1.2.840.1 [id number] 11 [id number] Univers 13:45:00 14:00:00 Procedure Sausan 60139.1.1 it y of 3.412.2.7 [place] .3.204153 MD [facility] 2023-04-30 2023-04-30 Outpatient EL ABOARB, MDA MDA [id number] 13:17:37 13:43:46 MARCELLO Leandro o n 2023-04-30 2023-04-30 Infusion EL Abouharb, 1.2.840.1 [id number] 063 [id number] Univers 11:45:00 12:15:00 Sausan 35259.1.1 ity of 3.412.2.7 [place] .3.350438 MD Kong8 [facility] 2023-04-30 2023-04-30 Follow-Up EL Abouharb, 1.2.840.1 [id number] 11 [id number] [facility] 11:00:00 12:11:19 Sausan 16680.1.1 ity of 3.412.2.7 [place] .3.242421 MD Kong8 [facility] 2023-04-30 2023-04-30 Outpatient ABOARB, [facility] [id number] 09:44:58 09:52:51 MARCELLO Reeves o sai 2023-04-30 2023-04-30 Travel 1.2.840.1 1.2.475.559 1713 [id number] Univers 00:00:00 00:00:00 51828.1.1 350.1.13.41 ity of 3.412.2.7 [place]7.3.698 [place] .3.517032 084.8 MD [facility] 2023-04-26 2023-04-26 Refill Wilbertoagunt 1.2.840.1 [id number] 11 [id number] Univers 00:00:00 00:00:00 a, 69686.1.1 ity of [place].2.[place] .3.163443 MD [facility] 2023-04-02 2023-04-02 Infusion EL Abouharb, 1.2.840.1 [id number] [facility] 10:30:00 11:26:24 Sausan 02444.1.1 ity of 3.412.2.7 [place] .3.519356 MD [facility] 2023-04-02 2023-04-02 Follow-Up DAYSI Schultz, 1.2.840.1 [id number] 11 [id number] Univers 09:40:00 10:27:48 Marcello 02709.1.1 ity of 3.412.2.7 [place] .3.141461 MD Kong8 [facility] 2023-04-02 2023-04-02 Outpatient DAYSI SCHULTZ, MDA MDA [id number] 08:50:17 09:04:04 MARCELLO grant 2023-04-02 2023-04-02 Edis Chauhan 1.2.840.1 [id number] [id number] Univers 00:00:00 00:00:00 Only Ashanti 59433.1.1 ity of 3.412.2.7 [place] .3.310472 MD [facility] 2023-04-02 2023-04-02 Travel 1.2.840.1 1.2.959.061 4945 [id number] Univers 00:00:00 00:00:00 68716.1.1 350.1.13.41 ity of 3.412.2.7 2.[place]7.3.698 [place] .3.270737 084.8 MD [facility] 2023-03-21 2023-03-21 Tino Santana [facility] 1.2.840.114 1 [id number] Univers 14:20:00 14:40:00 Care Unknown, Attending HEALTH 350.1.13.10 ity of [place] 4.2.7.2.686 Kavin as ELANA?BLEA [phone] [address] MEDICAL OFFICE [facility]ILD[facility] 2023-03-21 2023-03-21 Outpatient R [facility] [id number] Univers 14:20:00 14:20:00 TINO ity of [facility] 2023-03-21 2023-03-21 Orders Doctor GOMEZ 1.2.840.114 [id number] Univers 00:00:00 00:00:00 Only Unassigned, JOSE ALFREDO 350.1.13.10 ity of [facility] 4.2.7.2.686 Kavin as [id number] [place] [address] [place] 2023-03-12 2023-03-12 Telephone Shed, 1.2.840.1 [id number] 1105 [id number] Univers 00:00:00 00:00:00 Vivian E 59682.1.1 ity of 3.412.2.7 [place] .3.442101 MD [facility] 2023-03-11 2023-03-11 Telephone Gurdeep, 1.2.840.1 [id number] 1105 [id number] Univers 00:00:00 00:00:00 Elisa 24584.1.1 it y of 3.412.2.7 [place] .3.445919 MD [facility] 2023-03-10 2023-03-10 Ancillary Edis Mclean 1.2.840.1 [id number] 864 [id number] Univers 14:00:00 15:00:00 Procedure Ashanti 21385.1.1 it y of 3.412.2.7 [place] .3.139460 MD [facility] 2023-03-10 2023-03-10 Travel 1.2.840.1 1.2.286.885 6999 [id number] Univers 00:00:00 00:00:00 14865.1.1 350.1.13.41 ity of 3.412.2.7 [place]7.3.698 [place] .3.828962 084.8 MD [facility] 2023-03-10 2023-03-10 Telephone Adibi, 1.2.840.1 [id number] 1105 [id number] Univers 00:00:00 00:00:00 Mehrad 22113.1.1 ity of 3.412.2.7 [place] .3.414202 MD [facility] 2023-03-07 2023-03-07 Edis Jaramillo 1.2.840.1 [id number] Univers 00:00:00 00:00:00 Encounter Ashanti 46532.1.1 it y of 3.412.2.7 [place] .3.390780 MD [facility] 2023-03-05 2023-03-05 Infusion DAYSI Schultz, 1.2.840.1 [id number] 894 [id number] Univers 14:00:00 14:00:00 Charanjitsai 11450.1.1 ity of 3.412.2.7 [place] .3.594549 MD [facility] 2023-03-05 2023-03-05 Follow-Up DAYSI Schultz, 1.2.840.1 [id number] 11 [id number] Univers 13:40:00 13:40:00 Marcello 98813.1.1 ity of 3.412.2.7 [place] .3.349614 MD [facility] 2023-03-05 2023-03-05 Follow-Up DAYSI Jaymarissa 1.2.840.1 [id number] Univers 13:00:00 13:27:28 a, 38720.1.1 ity of [place]412.2.7 [place] .3.303289 MD [facility] 2023-03-05 2023-03-05 Outpatient KORYALY, MDA MDA [id number] [place] 10:59:53 11:07:31 MARCELLO Reeves [facility] 2023-03-05 2023-03-05 Travel 1.2.840.1 1.2.616.420 9494 [id number] Univers 00:00:00 00:00:00 03819.1.1 350.1.13.41 ity of 3.412.2.7 [place]7.3.698 [place] .3.551955 084.8 MD [facility] 2023-03-04 2023-03-04 Oumar Martinez, 1.2.840.1 [id number] [id number] Univers 00:00:00 00:00:00 Only Sharon A 08083.1.1 ity of 3.412.2.7 [place] .3.709519 MD [facility] 2023-03-04 2023-03-04 Orders Martinez, 1.2.840.1 [id number] Univers 00:00:00 00:00:00 Only Sharon Brizuela 66557.1.1 ity of 3.412.2.7 [place] .3.278176 MD [facility] 2023-03-03 2023-03-03 Ancillary EL Abouharb, 1.2.840.1 [id number] 11 [id number] Univers 12:00:00 12:30:00 Procedure Sausan 06188.1.1 it y of 3.412.2.7 [place] .3.082621 MD [facility] 2023-03-03 2023-03-03 Ancillary EL Abouharb, 1.2.840.1 [id number] 11 [id number] Univers 08:40:00 11:05:00 Procedure Sausan 51971.1.1 it y of 3.412.2.7 [place] .3.622366 MD [facility] 2023-03-03 2023-03-03 Ancillary EL Abouharb, 1.2.840.1 [id number] 11 [id number] Univers 09:30:00 10:00:00 Procedure Sausan 27765.1.1 it y of 3.412.2.7 [place] .3.630218 MD [facility] 2023-03-03 2023-03-03 Travel 1.2.840.1 1.2.786.876 5592 [id number] Univers 00:00:00 00:00:00 91142.1.1 350.1.13.41 ity of 3.412.2.7 2.[place]7.3.698 [place] .3.388305 084.8 MD [facility] 2023-02-05 2023-02-05 Infusion EL Abouharb, 1.2.840.1 [id number] [id number] Univers 14:30:00 14:30:00 Sausan 28830.1.1 ity of 3.412.2.7 [place] .3.155904 MD [facility] 2023-02-05 2023-02-05 Follow-Up EL Antoine, 1.2.840.1 [id number] 11 [id number] [facility] 14:00:00 14:00:00 Sausan 87765.1.1 ity of 3.412.2.7 [place] .3.697314 MD [facility] 2023-02-05 2023-02-05 Outpatient EL KORYALY, MDA MDA [id number] 09:30:19 09:48:20 MARCELLO Reeves sai 2023-02-05 2023-02-05 Travel 1.2.840.1 1.2.355.636 [id number] [facility] 00:00:00 00:00:00 77107.1.1 350.1.13.41 ity of 3.412.2.7 [place].3.698 [place] .3.035[place] 084.8 MD [facility] 2023-01-27 2023-01-27 Orders Koryarb, 1.2.840.1 [id number] [facility] 00:00:00 00:00:00 Only Sausan 45337.1.1 ity of 3.412.2.7 [place] .3.835905 MD [facility] 2023-01-24 2023-01-24 Telephone Rich 1.2.840.1 [id number] [facility] 00:00:00 00:00:00 Ashley P 40499.1.1 ity of 3.412.2.7 [place] .3.386714 MD [facility] 2023-01-22 2023-01-22 Telephone Steph Graves 1.2.840.1 [id number] [facility] 00:00:00 00:00:00 M 42650.1.1 ity of 3.412.2.7 [place] .3.894052 MD [facility] 2023-01-08 2023-01-08 Infusion EL Abouharb, 1.2.840.1 [id number] [facility] 11:45:00 12:15:00 Sausan 18899.1.1 ity of 3.412.2.7 [place] .3.822738 MD [facility] 2023-01-08 2023-01-08 Follow-Up EL Abouharb, 1.2.840.1 [id number] [facility] 09:20:00 10:51:29 Sausan 77298.1.1 ity of 3.412.2.7 [place] .3.115963 MD [facility] 2023-01-08 2023-01-08 Outpatient KORYARB, MDA MDA [id number] 08:34:13 08:41:01 MARCELLO gibbs 2023-01-08 2023-01-08 Travel 1.2.840.1 1.2.679.295 [id number] [facility] 00:00:00 00:00:00 07807.1.1 350.1.13.41 ity of 3.412.2.7 [place].3.698 [place] .3.966800 084.8 MD [facility] 2023-01-02 2023-01-02 Edis Chauhan 1.2.840.1 [id number] [facility] 00:00:00 00:00:00 Only Ashanti 78870.1.1 ity of 3.412.2.7 [place] .3.059288 MD [facility] 2022-12-19 2022-12-19 Infusion EL Koryuharb, 1.2.840.1 [id number] [facility] 14:45:00 14:45:00 Sausan 62308.1.1 ity of 3.412.2.7 [place] .3.194570 MD [facility] 2022-12-19 2022-12-19 Outpatient KORYALY, MDA MDA [id number] 12:06:03 12:14:13 MARCELLO gibbs 2022-12-19 2022-12-19 Telephone Abouharb, 1.2.840.1 [id number] [facility] 00:00:00 00:00:00 Sausan 96344.1.1 ity of 3.412.2.7 [place] .3.901889 MD [facility] 2022-12-19 2022-12-19 Travel 1.2.840.1 1.2.421.035 0345 [id number] [facility] 00:00:00 00:00:00 27145.1.1 350.1.13.41 ity of 3.412.2.7 [place]7.3.698 [place] .3.925529 084.8 MD Kong8 [facility] 2022-12-17 2022-12-17 Telephone Abouharb, 1.2.840.1 [id number] [facility] 00:00:00 00:00:00 Sausan 94872.1.1 ity of 3.412.2.7 [place] .3.817051 MD [facility] 2022-12-12 2022-12-12 Orders Abouharb, 1.2.840.1 [id number] [facility] 00:00:00 00:00:00 Only Sausan 83386.1.1 ity of 3.412.2.7 [place] .3.194553 MD [facility] 2022-12-12 2022-12-12 Orders Luciano, C 1.2.840.1 [id number] [facility] 00:00:00 00:00:00 Only Ashanti 48239.1.1 ity of 3.412.2.7 [place] .3.229899 MD [facility] 2022-12-05 2022-12-05 Infusion EL Abouharb, 1.2.840.1 [id number] [facility] 14:45:00 14:45:00 Sausan 98057.1.1 ity of 3.412.2.7 [place] .3.424755 MD [facility] 2022-12-05 2022-12-05 Outpatient ABOARB, MDA MDA [id number] 10:26:02 10:39:27 MARCELLO Leandro rudy gibbs 2022-12-05 2022-12-05 Travel 1.2.840.1 1.2.746.309 [id number] [facility] 00:00:00 00:00:00 28694.1.1 350.1.13.41 ity of 3.412.2.7 [place]7.3.698 [place] .3.735317 084.8 MD [facility] 2022-12-03 2022-12-03 Infusion EL Aboarb, 1.2.840.1 [id number] [facility] 13:45:00 13:45:00 Marcello 40413.1.1 ity of 3.412.2.7 [place] .3.861204 MD Kong8 [facility] 2022-12-03 2022-12-03 [facility] 1.2.840.1 [id number] [facility] 09:40:00 11:27:15 Marcello 60237.1.1 ity of 3.412.2.7 [place] .3.510190 MD Kong8 [facility] 2022-12-03 2022-12-03 [facility] [id number] 08:43:25 08:54:19 MARCELLO gibbs 2022-12-03 2022-12-03 Travel 1.2.840.1 1.2.648.573 [id number] [facility] 00:00:00 00:00:00 14261.1.1 350.1.13.41 ity of 3.412.2.7 2.[place]7.3.698 [place] .3.906119 084.8 MD [facility] 2022-11-28 2022-11-28 Telemedici Aboarb, 1.2.840.1 [id number] Univers 15:20:00 15:40:00 ne Sausan 11626.1.1 ity of 3.412.2.7 [place] .3.476770 MD Kong8 [facility] 2022-11-27 2022-11-27 Orders Abouharb, 1.2.840.1 [id number] [id number] Univers 00:00:00 00:00:00 Only Sausan 38398.1.1 ity of 3.412.2.7 [place] .3.701848 MD Kong8 [facility] 2022-11-21 2022-11-21 Documentat Jorge Alberto, 1.2.840.1 [id number] 639 [id number] Univers 00:00:00 00:00:00 ion Fouzia 21047.1.1 ity of 3.412.2.7 [place] .3.679851 MD Kong8 [facility] 2022-11-19 2022-11-19 Orders Abouharb, 1.2.840.1 [id number] 1101 [id number] Univers 00:00:00 00:00:00 Only Sausan 37797.1.1 ity of 3.412.2.7 [place] .3.464380 MD Maria [facility] 2022-11-18 2022-11-18 Edis Chauhan 1.2.840.1 [id number] 37463 [id number] Univers 00:00:00 00:00:00 Only Ashanti 57793.1.1 ity of 3.412.2.7 [place] .3.864573 MD Maria [facility] 2022-11-15 2022-11-15 Outpatient DAYSI CALVILLO MDA MDA [id number] 11:02:24 11:02:24 ALVARO Reeves [facility] 2022-11-15 2022-11-15 Edis Chauhan 1.2.840.1 [id number] 01625 Univers 00:00:00 00:00:00 Only Ashanti 10877.1.1 ity of 3.412.2.7 [place] .3.648201 MD Maria [facility] 2022-11-15 2022-11-15 Refill Antoine, 1.2.840.1 [id number] 1101 [id number] Univers 00:00:00 00:00:00 Sausan 67934.1.1 ity of 3.412.2.7 [place] .3.115854 MD Maria [facility] 2022-11-15 2022-11-15 Orders Dudaniella, 1.2.840.1 [id number] Univers 00:00:00 00:00:00 Only Natasha 56840.1.1 ity of 3.412.2.7 [place] .3.393646 MD Kong8 [facility] 2022-11-13 2022-11-13 Telemedici Abouharb, 1.2.840.1 [id number] 1 [id number] Univers 14:20:00 14:40:00 ne Sausan 88743.1.1 ity of 3.412.2.7 [place] .3.426169 MD Maria [facility] 2022-11-08 2022-11-08 Ancillary EL Abouharb, 1.2.840.1 [id number] 11 [id number] Univers 12:10:00 14:35:00 Procedure Sausan 25759.1.1 it y of 3.412.2.7 [place] .3.880180 MD Maria [facility] 2022-11-08 2022-11-08 Ancillary EL Abouharb, 1.2.840.1 [id number] 11 [id number] Univers 11:30:00 12:00:00 Procedure Sausan 94134.1.1 it y of 3.412.2.7 [place] .3.416896 MD Maria [facility] 2022-11-08 2022-11-08 Ancillary EL Abouharb, 1.2.840.1 [id number] 11 [id number] Univers 09:00:00 09:30:00 Procedure Sausan 39969.1.1 it y of 3.412.2.7 [place] .3.158753 MD Maria [facility] 2022-11-08 2022-11-08 Telephone Jorge Alberto, 1.2.840.1 [id number] 1101 [id number] Univers 00:00:00 00:00:00 Fouzia 80468.1.1 ity of 3.412.2.7 [place] .3.566427 MD Maria [facility] 2022-11-08 2022-11-08 Documentat Jorge Alberto, 1.2.840.1 [id number] 086 [id number] Univers 00:00:00 00:00:00 ion Fouzia 16136.1.1 ity of 3.412.2.7 [place] .3.480163 MD Maria [facility] 2022-11-08 2022-11-08 Travel 1.2.840.1 1.2.349.855 4883 [id number] Univers 00:00:00 00:00:00 55304.1.1 350.1.13.41 ity of 3.412.2.7 [place].3.698 [place] .3.2056[place] 084.8 MD Maria [facility] 2022-10-29 2022-10-29 Follow-Up DAYSI Schultz 1.2.840.1 [id number] 11 [id number] Univers 13:00:00 16:01:05 Charanjitsai 70231.1.1 ity of 3.412.2.7 [place] .3.140312 MD Maria [facility] 2022-10-29 2022-10-29 Travel 1.2.840.1 1.2.550.272 2207 [id number] Univers 00:00:00 00:00:00 69138.1.1 350.1.13.41 ity of 3.412.2.7 [place].7.3.698 [place] .3.6609[place] 084.8 MD Maria [facility] 2022-10-25 2022-10-25 Telemedici DAYSI Rees 1.2.840.1 [id number] Univers 14:20:00 14:26:35 maryann brizuela, 43174.1.1 ity of [place]2.7 [place] .3.356931 MD Maria [facility] 2022-10-25 2022-10-25 Ancillary [facility], 1.2.840.1 [id number] 11 [id number] Univers 09:00:00 11:30:00 Procedure Marcello 04442.1.1 it y of 3.412.2.7 [place] .3.892398 MD Maria [facility] 2022-10-25 2022-10-25 Travel 1.2.840.1 1.2.403.014 4932 [id number] Univers 00:00:00 00:00:00 38910.1.1 350.1.13.41 ity of 3.412.2.7 [place]7.3.698 [place] .3.907303 084.8 MD Maria [facility] 2022-10-23 2022-10-23 Outpatient [facility], [facility] MDA [id number] [place] 12:14:35 12:45:02 MARCELLO [facility] 2022-10-23 2022-10-23 Outpatient [facility], [facility] [id number] [place] 12:26:49 12:26:[facility] 2022-10-23 Travel 1.2.840.1 1.2.738.975 8992 [id number] Univers 00:00:00 00:00:00 46764.1.1 350.1.13.41 ity of 3.412.2.7 2.[place].7.3.698 [place] .3.5968[place] 084.8 MD Maria [facility] 2022-10-08 2022-10-08 [facility], 1.2.840.1 [id number] [facility] 11:30:00 12:07:56 Marcello 31057.1.1 ity of 3.412.2.7 [place] .3.581090 MD Maria [facility] 2022-10-08 2022-10-08 [facility], 1.2.840.1 [id number] 10 [id number] Univers 10:20:00 11:47:48 Marcello 83072.1.1 ity of 3.412.2.7 [place] .3.239474 MD Maria [facility] 2022-10-08 2022-10-08 Outpatient EL ABOUHARB, [facility] [id number] 09:17:40 09:33:27 CHARANJITSai Leandro o sai 2022-10-08 2022-10-08 Travel 1.2.840.1 1.2.788.795 9474 [id number] Univers 00:00:00 00:00:00 18128.1.1 350.1.13.41 ity of 3.412.2.7 2.[place].7.3.698 [place] .3.511291 084.8 MD Maria [facility] 2022-10-08 2022-10-08 Edis Chauhan 1.2.840.1 [id number] [id number] Univers 00:00:00 00:00:00 Only Ashanti 67983.1.1 ity of 3.412.2.7 [place] .3.428852 MD Maria [facility] 2022-10-02 2022-10-02 Refill Antoine, 1.2.840.1 [id number] 1099 [id number] Univers 00:00:00 00:00:00 Marcello 38982.1.1 ity of 3.412.2.7 [place] .3.852337 MD Maria [facility] 2022-10-01 2022-10-01 Karolina Del Cid, 1.2.840.1 [id number] 1099 [id number] Univers 00:00:00 00:00:00 Macaela T 92130.1.1 it y of 3.412.2.7 [place] .3.204396 MD Maria [facility] 2022-10-01 2022-10-01 Edis Chauhan 1.2.840.1 [id number] [id number] Univers 00:00:00 00:00:00 Only Ashanti 74626.1.1 ity of 3.412.2.7 [place] .3.135491 MD Marai [facility] 2022-10-01 2022-10-01 Sanchez Oakes, 1.2.840.1 [id number] Univers 00:00:00 00:00:00 ion Delores 18269.1.1 ity of 3.412.2.7 [place] .3.471389 MD Maria [facility] 2022-09-26 2022-09-26 Consult DAYSI Oakes, 1.2.840.1 [id number] 639 [id number] Univers 14:30:00 15:24:44 Delores 86364.1.1 ity of 3.412.2.7 [place] .3.739202 MD Maria [facility] 2022-09-26 2022-09-26 Oumar Oakes, 1.2.840.1 [id number] Univers 00:00:00 00:00:00 Only Delores 82606.1.1 ity of 3.412.2.7 [place] .3.628360 MD Maria [facility] 2022-09-26 2022-09-26 Travel 1.2.840.1 1.2.275.902 8419 [id number] Univers 00:00:00 00:00:00 64412.1.1 350.1.13.41 ity of 3.412.2.7 2.2.7.3.698 [place] .3.897951 084.8 MD Maria [facility] 2022-09-25 2022-09-25 Telemedici Kin 1.2.840.1 [id number] Univers 14:20:00 14:40:00 ne a, 80697.1.1 ity of [place]412[place]2.[place] .3.821569 MD Maria [facility] 2022-09-10 2022-09-10 Edis Chauhan 1.2.840.1 [id number] [id number] Univers 00:00:00 00:00:00 Only Ashanti 12269.1.1 ity of 3.412.2.7 [place] .3.731224 MD Maria [facility] 2022-09-09 2022-09-09 Telephone Abouharb, 1.2.840.1 [id number] 10 [id number] Univers 00:00:00 00:00:00 Marcello 77762.1.1 ity of 3.412.2.7 [place] .3.125706 MD Maria [facility] 2022-09-05 2022-09-05 Infusion EL Koryarb, 1.2.840.1 [id number] 324 [id number] Univers 11:45:00 13:27:21 Marcello 86343.1.1 ity of 3.412.2.7 [place] .3.485826 MD Kong8 [facility] 2022-09-05 2022-09-05 Office EL Koryarb, 1.2.840.1 [id number] 1098 [id number] Univers 11:00:00 12:27:27 Visit Marcello 93550.1.1 ity of 3.412.2.7 [place] .3.445579 MD Maria [facility] 2022-09-05 2022-09-05 [facility] [id number] [place] 10:27:19 10:29:05 CALEB Leandro [facility] 2022-09-05 2022-09-05 Travel 1.2.840.1 1.2.528.857 0648 [id number] Univers 00:00:00 00:00:00 16465.1.1 350.1.13.41 ity of 3.412.2.7 2.[place].7.3.698 [place] .3.374748 084.8 MD Kong8 [facility] 2022-09-03 2022-09-03 Emergency ER Ben, 1.2.840.1 [id number] 1098 [id number] Univers 18:14:00 19:25:00 Victorino 50089.1.1 ity of 3.412.2.7 [place] .3.270683 MD Maria [facility] 2022-09-03 2022-09-03 Travel 1.2.840.1 1.2.778.577 5809 [id number] Univers 00:00:00 00:00:00 20506.1.1 350.1.13.41 ity of 3.412.2.7 2.2.7.3.698 [place] .3.152547 084.8 MD Kong8 [facility] 2022-09-03 2022-09-03 Telephone Irvin, 1.2.840.1 [id number] Univers 00:00:00 00:00:00 Mio Kain 47863.1.1 ity of 3.412.2.7 [place] .3.160267 MD Kong8 [facility] 2022-08-28 2022-08-28 Edis Chauhan 1.2.840.1 [id number] 61748 Univers 00:00:00 00:00:00 Only Ashanti 55849.1.1 ity of 3.412.2.7 [place] .3.323617 MD Kong8 [facility] 2022-08-26 2022-08-26 Telemroyer Thomas, 1.2.840.1 [id number] 853 [id number] Univers 14:00:00 14:30:00 ne Anastacia 48416.1.1 ity of 3.412.2.7 [place] .3.658423 MD Kong8 [facility] 2022-08-22 2022-08-22 Outpatient DAYSI GRANADOS MDA MDA [id number] MD 15:37:43 15:46:23 VIVIAN grant 2022-08-22 2022-08-22 Ancillary Edis Mclean 1.2.840.1 [id number] Univers 14:00:00 14:45:00 Procedure Ashanti 09083.1.1 it y of 3.412.2.7 [place] .3.788264 MD Kong8 [facility] 2022-08-22 2022-08-22 Ancillary Kamran Wright.2.840.1 [id number] 1096 [id number] Univers 13:00:00 14:00:00 Procedure Vivian Mejia 05755.1.1 i ty of 3.412.2.7 [place] .3.945022 MD Kong8 [facility] 2022-08-22 2022-08-22 Edis Chauhan 1.2.840.1 [id number] Univers 00:00:00 00:00:00 Only Ashanti 95498.1.1 ity of 3.412.2.7 [place] .3.814308 MD Kong8 [facility] 2022-08-22 2022-08-22 Travel 1.2.840.1 1.2.475.388 0057 [id number] Univers 00:00:00 00:00:00 93098.1.1 350.1.13.41 ity of 3.412.2.7 2.2.7.3.698 [place] .3.799535 084.8 .8 [facility] 2022-08-21 2022-08-21 Edis Chauhan 1.2.840.1 [id number] [id number] Univers 00:00:00 00:00:00 Only Ashanti 43468.1.1 ity of 3.412.2.7 [place] .3.050807 MD Kong8 [facility] 2022-08-20 2022-08-20 Telephone Nehemias, 1.2.840.1 [id number] 1098 [id number] Univers 00:00:00 00:00:00 Macaela T 15378.1.1 it y of 3.412.2.7 [place] .3.192126 MD Kong8 [facility] 2022-08-14 2022-08-14 Outpatient Edis MCLEAN MDA MDA [id number] 09:29:12 09:29:12 Leandro gibbs 2022-08-14 2022-08-14 Outpatient KIN MDA MDA [id number] 08:32:37 09:22:28 Leanrdo Brizuela I 2022-08-06 2022-08-06 Outpatient KORYALY MDA MDA [id number] 15:48:01 16:23:01 MARCELLO gibbs 2022-08-06 2022-08-06 Outpatient DAYSI HORNJAMIE LU MDA [id number] 10:54:14 13:02:14 MARCELLO gibbs 2022-08-06 2022-08-06 Outpatient EL ABOUHARB, MDA MDA [id number] 10:35:23 10:45:37 MARCELLO Farrellers o n 2022-08-02 2022-08-02 Outpatient EL EVER, C MDA MDA [id number] 19:39:48 19:39:48 Leandro o n 2022-08-02 2022-08-02 Outpatient EL ABOUHARB, MDA MDA [id number] 13:38:27 13:38:27 MARCELLO Farrellers o n 2022-07-10 2022-07-10 Outpatient EL ABOUHARB, MDA MDA [id number] 14:11:28 23:59:00 MARCELLO Farrellers o n 2022-07-10 2022-07-10 Outpatient EL ADIBI, MDA Urology [id number] 13:26:00 20:04:00 ANASTACIA Farrellers o n 2022-07-10 2022-07-10 Outpatient EL MDA MDA [id number] 17:38:59 17:38:59 Leandro o n 2022-07-08 2022-07-08 Outpatient EL SHED, MDA MDA [id number] MD 07:45:54 07:45:54 VIVIAN Farrellers o n 2022-07-04 2022-07-04 Outpatient EL ABOUHARB, MDA MDA [id number] 10:14:37 11:15:24 MARCELLO Farrellers o n 2022-07-04 2022-07-04 Outpatient EL ADIBI, MDA MDA [id number] MD 08:23:35 10:10:57 ANASTACIA Farrellers o n 2022-07-04 2022-07-04 Outpatient EL SHED, MDA MDA [id number] MD 08:05:20 08:09:07 VIVIAN Farrellers o n 2022-06-25 2022-06-25 Outpatient EVER, C MDA MDA [id number] 14:15:44 14:15:44 Leandro o n 2022-06-25 2022-06-25 Outpatient LUCIANO, C MDA MDA [id number] 14:02:10 14:03:34 Leandro o n 2022-05-23 2022-05-23 Outpatient EL ABOUHARB, MDA MDA [id number] 11:28:09 12:29:12 MARCELLO gibbs 2022-05-23 2022-05-23 Outpatient EL ABOUHARB, MDA MDA [id number] 11:13:53 11:17:05 MARCELLO gibbs 2022-05-23 2022-05-23 Outpatient EL ABOUHARB, MDA MDA [id number] 09:48:02 11:11:36 MARCELLO gibbs 2022-03-28 2022-03-28 Emergency [facility] 1.2.538.200 [id number] Univers 19:33:00 20:22:00 Dayan Shepard NACOGDOCHES 350.1.13.10 i [facility] 4.2.7.2.686 [facility] [id number] [address] 2022-03-28 2022-03-28 Emergency X [facility] [id number] Univers 19:33:00 20:22:00 DAYAN abbasi [facility] 2022-03-06 2022-03-06 Outpatient EL RADHAMESEDERHOLD, MDA MDA [id number] 10:17:01 11:51:07 EDU gibbs 2022-02-27 2022-02-27 Outpatient EL ADIBI, MDA Urology [id number] 12:06:00 17:44:00 ANASTACIA gibbs 2022-02-27 2022-02-27 Outpatient EL MDA MDA [id number] 14:52:06 14:52:06 Leandro gibbs 2022-02-26 2022-02-26 Outpatient EL SHED, MDA MDA [id number] 07:04:15 07:04:15 VIVIAN gibbs 2022-02-25 2022-02-25 Outpatient EL ABOUHARB, MDA MDA [id number] 13:39:26 13:42:23 MARCELLO gibbs 2022-02-25 2022-02-25 Outpatient EL SHED, MDA MDA [id number] 13:30:42 13:39:02 VIVIAN gibbs 2022-02-18 2022-02-18 Outpatient EL LOGAN, MDA MDA [id number] 14:22:10 14:22:10 CHIKA Reeves o n 2022-02-04 2022-02-04 Outpatient EL ADIBI, MDA MDA [id number] 14:03:25 15:21:51 ANASTACIA Farrellers o n 2022-01-29 2022-01-29 Outpatient EL ABOUHARB, MDA MDA [id number] 09:10:16 10:07:29 MARCELLO Leandro o n 2022-01-23 2022-01-23 Outpatient EL ABOUHARB, MDA MDA [id number] MD 14:26:25 14:26:25 MARCELLO Leandro o n 2022-01-17 2022-01-17 Outpatient EL ABOUHARB, MDA MDA [id number] 10:21:12 11:28:20 CHARANJITSai Leandro o n 2022-01-15 2022-01-15 Outpatient EL ABOUHARB, MDA MDA [id number] 11:38:38 11:38:38 CHARANJITSai Leandro o n 2022-01-15 2022-01-15 Outpatient EL ABOUHARB, MDA MDA [id number] 08:57:03 08:57:03 MARCELLO Leandro o n 2022-01-15 2022-01-15 Outpatient EL ABOUHARB, MDA MDA [id number] 08:56:15 08:56:15 MARCELLO Farrellers o n 2022-01-15 2022-01-15 Outpatient EL ABOUHARB, MDA MDA [id number] 08:38:16 08:41:26 CHARANJTISai Leandro o n 2021-12-28 2021-12-28 Outpatient EL ABOUHARB, MDA MDA [id number] 12:52:31 12:52:31 USASai Leandro o n 2021-12-28 2021-12-28 Outpatient EL ABOUHARB, MDA MDA [id number] 12:52:31 12:52:31 USASai Leandro o n 2021-12-28 2021-12-28 Outpatient EL ABOUHARB, MDA MDA [id number] 12:52:30 12:52:30 USASai Leandro o n 2021-12-28 2021-12-28 Outpatient EL ABOUHARB, MDA MDA [id number] 12:52:29 12:52:29 SAUSAN Leandro o n 2021-12-11 2021-12-11 Outpatient EL ABOUHARB, MDA MDA [id number] 12:06:34 12:06:34 SAUSAN Leandro o n 2021-11-22 2021-11-22 Outpatient EL ABOUHARB, MDA MDA [id number] 16:07:25 16:19:15 SAUSAN Leandro o n 2021-11-22 2021-11-22 Outpatient EL ABOUHARB, MDA MDA [id number] 13:10:43 16:09:56 SAUSAN Leandro o n 2021-11-22 2021-11-22 Outpatient EL ABOUHARB, MDA MDA [id number] 15:26:00 15:26:00 SAUSAN Leandro o n 2021-11-22 2021-11-22 Outpatient EL ABOUHARB, MDA MDA [id number] MD 15:25:56 15:25:56 SAUSAN Leandro o n 2021-11-22 2021-11-22 Outpatient EL ABOUHARB, MDA MDA [id number] 15:25:53 15:25:53 SAUSAN Leandro o n 2021-11-22 2021-11-22 Outpatient EL ABOUHARB, MDA MDA [id number] 15:25:51 15:25:51 SAUSAN Leandro o n 2021-11-22 2021-11-22 Outpatient EL MDA MDA [id number] MD 13:00:50 13:16:52 Leandro o n 2021-05-07 2021-05-07 Outpatient AYAD ALEXANDER GABBY [id number] [facility] 16:49:00 16:49:00 CHARELS 09 [facility] 2021-01-12 2021-01-12 Outpatient AYAD ALEXANDER GABBY [id number] [facility] 12:00:00 12:00:00 GILBERT 21 [facility] 2020-01-01 2020-01-01 Emergency MANUS, ERIBERTO [facility] 064 [id number] [place] 00:00:00 00:00:[address] Results Test Description Test Time Test Comments Results Result Comments Source POC Glucose Screen - Fingerstick 2023-09-03 13:30:25 Test Item Value Reference Range Interpretation Comme nts Glucose Screen (test code = 77 mg/dL 70-99 92517-4) POC Sample Type (test code = Capillary 0438327968) LAZARO (test code = LAZARO) Capillary blood [...] questionable test results by core lab methodology. [facility] Glucose Screen - Fingerstick 2023-09-03 13:30:25 Test Item Value Reference Range Interpretation Comments Glucose Screen 77 mg/dL 70-99 (test code = 64616-9) POC Sample Type Capillary (test code = 1031134898) LAZARO (test code = Capillary blood samples, [...] questionable test results by core lab methodology. [facility] [id number] 16:15:50 Test Item Value Reference Range Interpretation Comments Final Report (test No Legionella species code = 8488) isolated [facility] [id number] 16:15:50 Test Item Value Reference Range Interpretation Comments Final Report (test No Legionella species code = 8488) isolated [facility] Peripheral 2023-08-31 04:10:09 Test Item Value Reference Range Interpretation Comments Final Report (test No growth code = 8488) LAZARO (test code = One or both cultures LAZARO) bottles underfilled (< 5ml). This will result in decreased sensitivity in pathogen detection. [facility] 2023-08-31 04:10:09 Test Item Value Reference Range Interpretation Comments Final Report (test No growth code = 8488) LAZARO (test code = One or both cultures LAZARO) bottles underfilled (< 5ml). This will result in decreased sensitivity in pathogen detection. [facility] CenterHemoglobin [id number] 17:24:56 Test Item Value Reference Range Interpretation Comments A1C (test code = 4548-4) 6.1 % 4.3-5.6 H HbA 1c values >=6.5% are diagnostic of diabetes mellitus.Diagno sis should be confi rmed by repeat testing.Therape utic Action suggeste d: >8.0% HbA1c; Go al oftherapy: <7.0 % HbA1c Lab Interpretation (test Abnormal code = 80550-2) [facility] Center[facility] [id number] 17:24:56 Test Item Value Reference Range Interpretation Comments A1C (test code = 4548-4) 6.1 % 4.3-5.6 H HbA 1c values >=6.5% are diagnostic of diabetes mellitus.Diagno sis should be confi rmed by repeat testing.Therape utic Action suggeste d: >8.0% HbA1c; Go al oftherapy: <7.0 % HbA1c Lab Interpretation (test Abnormal code = 56178-3) [facility] Add-On Test 2023-08-29 16:55:01 Test Item Value Reference Range Interpretation Comments Ordered (test code = 6568) Test Added Test Needed (test code = 7604) Hemoglobin A1c [facility] Add-On Test 2023-08-29 16:55:01 Test Item Value Reference Range Interpretation Comments Ordered (test code = 6568) Test Added Test Needed (test code = 7604) Hemoglobin A1c [facility] CenterFractionated [id number] 12:55:45 Test Item Value Reference Range Interpretation [...] par ameters are outside rep ortable range [facility] CenterFractionated [id number] 12:55:45 Test Item Value Reference Range Interpretation [...] par ameters are outside rep ortable range [facility] CenterCalcium [id number] 12:55:41 Test Item Value Reference Range Interpretation Comments Calcium Lvl (test code = 43284-7) 10.3 mg/dL 8.4-10.2 H Lab Interpretation (test code = Abnormal 50544-1) [facility] Center[facility] [id number] 12:55:41 Test Item Value Reference Range Interpretation Comments Calcium Lvl (test code = 21736-0) 10.3 mg/dL 8.4-10.2 H Lab Interpretation (test code = Abnormal 34612-1) [facility] CenterGlomerular Filtration Rate 2023-08-29 12:55:40 Test Item Value Reference Range Interpretation Comments eGFR (test code = 105 See_Comment The eGFRcr [place] 03682-8) the 2020 CKD-EP I creatinine equation using [...] int erpret this result as demian l/abnormal. [facility] [place] 2023-08-29 12:55:40 Test Item Value Reference Range Interpretation Comments eGFR (test code = 105 See_Comment The eGFRcr is calculated with 91443-4) the 2020 CKD-EP I creatinine equation using [...] int erpret this result as demian l/abnormal. [facility] CenterAlbumin [id number] 12:55:39 Test Item Value Reference Range Interpretation Comments Albumin Lvl (test code = 3.4 See_Comment L [A utomated message] 1751-05) The system [employer] generated this result transmitted ref erence range: 3.5 - 5. 2 gm/dL. The refe rence range was not u sed to interpret this result as normal/abnor mal. Lab Interpretation (test Abnormal code = 40453-1) [facility] [id number] 12:55:39 Test Item Value Reference Range Interpretation Comments Albumin Lvl (test code = 3.4 See_Comment L [A utomated message] 1751-05) The system [facility] generated this result transmitted ref erence range: 3.5 - 5. 2 gm/dL. The refe rence range was not u sed to interpret this result as normal/abnor mal. Lab Interpretation (test Abnormal code = 79486-9) [facility] [id number] 12:55:38 Test Item Value Reference Range Interpretation Comments Total Protein (test code = 2885-2) 6.9 g/dL 6.4-8.3 [facility] [id number] 12:55:38 Test Item Value Reference Range Interpretation Comments Total Protein (test code = 2885-2) 6.9 g/dL 6.4-8.3 [facility] Center[facility] Aminotransferase 2023-08-29 12:55:37 Test Item Value Reference Range Interpretation Comments AST (test code = 1920-8) 27 U/L <=32 [facility] Amin[facility] 2023-08-29 12:55:37 Test Item Value Reference Range Interpretation Comments AST (test code = 192-8) 27 U/L <=32 [facility] CenterElectrolyte [id number] 12:55:35 Test Item Value Reference Range Interpretation Comments Sodium Lvl (test code = 141 See_Comment [Au tomated message] 9241-2) The system [facility] generated this result transmitted ref erence range: 136 - 14 5 mEq/L. The refe rence range was not u sed to interpret this result as normal/abnor mal. Potassium Lvl (test code 4.0 See_Comment [A utomated message] = 2823-3) The system [facility] generated this result transmitted ref erence range: 3.5 - 5. 1 mEq/L. The refe rence range was not u sed to interpret this result as normal/abnor mal. Chloride (test code = 99 See_Comment [Auto mated message] ) The system [facility] generated this result transmitted ref erence range: 98 - 107 mEq/L. The refe rence range was not u sed to interpret this result as normal/abnor mal. CO2 (test code = 2028-07) 30 See_Comment H [A utomated message] The system [facility] generated this result transmitted ref erence range: 22 - 29 mEq/L. The reference r gabriel was not used to interpret this result as normal/abnor mal. Anion Gap (test code = 12 See_Comment [Aut omated message] 95552-7) The system [facility] generated this result transmitted ref erence range: 4 - 14 m Eq/L. The reference r gabriel was not used to interpret this result as normal/abnor mal. Lab Interpretation (test Abnormal code = 47487-5) [facility] CenterElectrolyte Dzxjl9625-08-12 12:55:35 Test Item Value Reference Range Interpretation Comments Sodium Lvl (test code = 141 See_Comment [Au tomated message] 7981-2) The system [employer] generated this result transmitted ref erence range: 136 - 14 5 mEq/L. The refe rence range was not u sed to interpret this result as normal/abnor mal. Potassium Lvl (test code 4.0 See_Comment [A utomated message] = 9863-3) The system [employer] generated this result transmitted ref erence range: 3.5 - 5. 1 mEq/L. The refe rence range was not u sed to interpret this result as normal/abnor mal. Chloride (test code = 99 See_Comment [Auto mated message] ) The system [employer] generated this result transmitted ref erence range: 98 - 107 mEq/L. The refe rence range was not u sed to interpret this result as normal/abnor mal. CO2 (test code = 2027-9) 30 See_Comment H [A utomated message] The system [employer] generated this result transmitted ref erence range: 22 - 29 mEq/L. The reference r gabriel was not used to interpret this result as normal/abnor mal. Anion Gap (test code = 12 See_Comment [Aut omated message] 67192-5) The system [employer] generated this result transmitted ref erence range: 4 - 14 m Eq/L. The reference r gabriel was not used to interpret this result as normal/abnor mal. Lab Interpretation (test Abnormal code = 64673-8) [facility] CenterAlkaline Drgocqwewaz1923-03-83 12:55:33 Test Item Value Reference Range Interpretation Comments Alk Phos (test code = 6768-6) 162 U/L 35-104 H Lab Interpretation (test code = Abnormal 76504-6) [facility] CenterAlkaline Hymvtalvfgi0734-80-84 12:55:33 Test Item Value Reference Range Interpretation Comments Alk Phos (test code = 6768-6) 162 U/L 35-104 H Lab Interpretation (test code = Abnormal 87828-7) [facility] CenterGlucose Ulsui8325-01-02 12:55:32 Test Item Value Reference Range Interpretation Comments Glucose Level (test 90 mg/dL 70-99 Effectiv e 06/05/16, the code = 2345-7) glucose refer ence intervals have been updated based o n [place] [employer] felecia delines (Standards of M edical Care in Diabete s 2016. Diabetes Care 2 016; 39: S13-S22).Fastin g blood glucose:Normal: 70-99 mg/dLImpaired f asting glucose (increa sed risk for diabetes or pre-diabetes): 100-125 mg/dLDiabetes m ellitus: >/=126 mg/dL Ra ndom blood glucose:N ormal: 70-199 mg/dLNot e: Random glucose >100 mg /dL is associated with increased risk for diabetes [facility] CenterGlucose Otkvn5708-06-58 12:55:32 Test Item Value Reference Range Interpretation Comments Glucose Level (test 90 mg/dL 70-99 Effectiv e 06/05/16, the code = 2345-7) glucose refer ence intervals have been updated based o n [employer] felecia delines (Standards of M edical Care in Diabete s 2016. Diabetes Care 2 016; 39: S13-S22).Fastin g blood glucose:Normal: 70-99 mg/dLImpaired f asting glucose (increa sed risk for diabetes or pre-diabetes): 100-125 mg/dLDiabetes m ellitus: >/=126 mg/dL Ra ndom blood glucose:N ormal: 70-199 mg/dLNot e: Random glucose >100 mg /dL is associated with increased risk for diabetes [facility] CenterALT2023-10-20 12:55:31 Test Item Value Reference Range Interpretation Comments ALT (test code = 1742-6) 14 U/L <=33 [facility] CenterALT2023-10-20 12:55:31 Test Item Value Reference Range Interpretation Comments ALT (test code = 1742-6) 14 U/L <=33 [facility].Serum Ulpnclbwcg5535-70-65 12:55:30 Test Item Value Reference Range Interpretation Comments Creatinine (test code = 2160-0) 0.57 mg/dL 0.51-0.95 [facility].Serum Dfaazyijom2878-40-67 12:55:30 Test Item Value Reference Range Interpretation Comments Creatinine (test code = 2160-0) 0.57 mg/dL 0.51-0.95 [facility] CenterBUN2023-10-20 12:55:29 Test Item Value Reference Range Interpretation Comments BUN (test code = 3094-0) 11 mg/dL 6- [facility] CenterBUN2023-10-20 12:55:29 Test Item Value Reference Range Interpretation Comments BUN (test code = 3094-0) 11 mg/dL 6- [facility] CenterDifferential2023-10-20 12:31:17 Test Item Value Reference Range Interpretation [...] 1.1 % 0.1-1.5 IGRE % c ount 41961-1) includes Metamyelocytes, Myelocytes, and Promyelocytes. Neutrophil Abs (test code 4.41 K/uL 1.95-7.25 = 751-8) Lymphocyte Abs (test code 0.74 K/uL 1.01-3.24 L = 731-0) Monocyte Abs (test code = 0.38 K/uL 0.24-0.85 742-7) Eosinophil Abs (test code 0.03 K/uL 0.02-0.50 = 711-2) Basophil Abs (test code = 0.01 K/uL 0.02-0.09 L 704-7) IG Abs (test code = 0.06 K/uL 0.01-0.12 20349-9) Lab Interpretation (test Abnormal code = 36286-9) [facility] CenterDifferential2023-10-20 12:31:17 Test Item Value Reference Range Interpretation [...] 1.1 % 0.1-1.5 IGRE % c ount 76232-7) includes Metamyelocytes, Myelocytes, and Promyelocytes. Neutrophil Abs (test code 4.41 K/uL 1.95-7.25 = 751-8) Lymphocyte Abs (test code 0.74 K/uL 1.01-3.24 L = 731-0) Monocyte Abs (test code = 0.38 K/uL 0.24-0.85 742-7) Eosinophil Abs (test code 0.03 K/uL 0.02-0.50 = 711-2) Basophil Abs (test code = 0.01 K/uL 0.02-0.09 L 704-7) IG Abs (test code = 0.06 K/uL 0.01-0.12 44403-6) Lab Interpretation (test Abnormal code = 46874-7) [facility]woodRespiratory Viral Panel, Send-Out (BAL)2023-08-29 03:16:58 Test Item Value Reference Interpretation Comments Range RVP Specimen Source BAL (test code = 49561) RVP Adenovirus Not Not Detected Detects Serot ypes B and E. (test code = 93208) Detected Detectio n of Serotype C may be limited.If A denovirus infection is steele spected and a Not Detected re sult isreturned the sample should be re-tested fo r adenovirus using anindepen dent method (e.g. [employer]or Adenovirus QuantitativeRea l-time PCR test). RVP Not Not Detected Enterovirus/Rhinovi Detected libertad (test code = 27063) RVP Bocavirus (test Not Not Detected code = 86802) Detected RVP Coronavirus Not Not Detected This test do es NOT assay for (test code = 71483) Detected the nove l 2019 Coronavirus out of[place]. Th is test detects the res piratory Coronaviruses: types 229E,OC43, NL63 , and HKU1. RVP Metapneumovirus Not Not Detected (test code = 40987) Detected RVP Influenza A Not Not Detected (test code = 39924) Detected RVP Influenza Not Not Detected A-V7T1-28 (test Detected code = 70637) RVP Influenza B Not Not Detected (test code = 06941) Detected RVP Parainfluenza Not Not Detected (test code = 24415) Detected RVP Respiratory Not Not Detected The Respira tory Syncytial Syncytial (test Detected Viral assay detects both code = 82624) types A and B, however it does not distin guish between the two.Target Enriched Multiplex Polym erase Chain Reaction (TEM-P CR) allowsfor the detection o f multiple pathogens out o f a single reaction.This t est was developed and i ts performance characteristics determined by [employer]. It has not been cleared or approvedby the U.S. Food a nd Drug Administration. Results should be used inconjunction with clinical f indings, and should not form the solebasis for a diagnosis or treatment decis ion.TEM-PCR is a licensed t echnology of [employer]. Perform ed At:[facility] [id number], [address] [place] [address] Director: Dmitri Short, PhD BCLJoselin (ABB)IA # [id number] Interpretation: A = Abnormal, H = H igh, L = Low [facility]woodRespiratory Viral Panel, Send-Out (BAL)2023-08-29 03:16:58 Test Item Value Reference Interpretation Comments Range RVP Specimen Source BAL (test code = 91323) RVP Adenovirus Not Not Detected Detects Serot ypes B and E. (test code = 03485) Detected Detectio n of Serotype C may be limited.If A denovirus infection is steele spected and a Not Detected re sult isreturned the sample should be re-tested fo r adenovirus using anindepen dent method (e.g. [employer] Adenovirus QuantitativeRea l-time PCR test). RVP Not Not Detected Enterovirus/Rhinovi Detected libertad (test code = 32987) RVP Bocavirus (test Not Not Detected code = 73456) Detected RVP Coronavirus Not Not Detected This test do es NOT assay for (test code = 41209) Detected the nove l 2019 Coronavirus out of[place]. Th is test detects the res piratory Coronaviruses: types 229E,OC43, NL63 , and HKU1. RVP Metapneumovirus Not Not Detected (test code = 42307) Detected RVP Influenza A Not Not Detected (test code = 05845) Detected RVP Influenza Not Not Detected A-K0J7-74 (test Detected code = 38625) RVP Influenza B Not Not Detected (test code = 78215) Detected RVP Parainfluenza Not Not Detected (test code = 06592) Detected RVP Respiratory Not Not Detected The Respira tory Syncytial Syncytial (test Detected Viral assay detects both code = 41070) types A and B, however it does not distin guish between the two.Target Enriched Multiplex Polym erase Chain Reaction (TEM-P CR) allowsfor the detection o f multiple pathogens out o f a single reaction.This t est was developed and i ts performance characteristics determined by [employer]. It has not been cleared or approvedby the U.S. Food a nd Drug Administration. Results should be used inconjunction with clinical f indings, and should not form the solebasis for a diagnosis or treatment decis ion.TEM-PCR is a licensed t echnology of [employer]. Perform ed At:[facility], [id number], [address] [place] [address] Director: Dmitri Short, PhD DEJA (ABB)CLIA # [id number] Interpretation: A = Abnormal, H = H igh, L = Low [facility] InglewoodPrepare RBC:g2138, 1 Units 2023-08-28 20:28:31 Test Item Value Reference Range Interpretation Comments PRBC Product Ready -2 Orders on hold due to (test code = 26937-0) critic al shortage. If transfusion nee d is critical, page Transfusion Medicine Physic guillermo consultant at [phone] . [facility] CenterPrepare RBC:g2138, 1 Units 2023-08-28 20:28:31 Test Item Value Reference Range Interpretation Comments PRBC Product Ready -2 Orders on hold due to (test code = 91422-6) critic al shortage. If transfusion nee d is critical, page Transfusion Medicine Physic guillermo consultant at [phone] . [facility] CenterTMP Interpretation Antibody Screen Ilpsxgha0171-53-15 20:09:16 Test Item Value Reference Range Interpretation Comments TMP Auto Neg At the present ABSC Interp time, patient (test code = plasma shows no ____CESAR SANDOVAL MD 0335) evidence of RBC - [id number] mariana by: alloantibodies. MD Lucie ASHFORD [id number] D ate/Time: 08.28.2023 15:0 9 PM CDT Transcribed Aquilino e/Time: 08.28.2023 15:0 9 PM CDTElectronical ly Signed By: CESAR AUGUST MD - [id number] on 08.10 15:09 PM [facility]ody Screen Xnlannad6249-32-58 20:09:16 Test Item Value Reference Range Interpretation Comments TMP Auto Neg At the present ABSC Interp time, patient (test code = plasma shows no ____CESAR SANDOVAL MD 0735) evidence of RBC - 09191Unyqi mariana by: alloantibodies. MD Lucie ASHFORD [id number] D ate/Time: 08.28.2023 15:0 9 PM CDT Transcribed Aquilino e/Time: 08.28.2023 15:0 9 PM CDTElectronical ly Signed By: CESAR AUGUST MD - [id number] on 08.10 15:09 PM [facility] CenterABORh2023-10-19 19:35:29 Test Item Value Reference Range Interpretation Comments ABORh. (test code = 882-1) O POS [facility] CenterABORh2023-10-19 19:35:29 Test Item Value Reference Range Interpretation Comments ABORh. (test code = 882-1) O POS [facility] CenterClot Expiration Lksu1076-12-37 19:35:28 Test Item Value Reference Range Interpretation Comments T & S Expiration (test code = 08/31/20235317) [facility] CenterClot Expiration Hxdp6883-43-79 19:35:28 Test Item Value Reference Range Interpretation Comments T & S Expiration (test code = 08/31/20235317) [facility] CenterAntibody Xapgux0432-60-67 19:35:08 Test Item Value Reference Range Interpretation Comments ABSC. (test code = 890-4) Negative ABSC [facility] CenterAntibody Wrpmov1119-44-86 19:35:08 Test Item Value Reference Range Interpretation Comments ABSC. (test code = 890-4) Negative ABSC [facility] CenterCOVID-19 (SARS-CoV-2) PCR, Lower Qpvufgybfat1202-90-66 00:12:08 Test Item Value Reference Range Interpretation Comments COVID19 (SARS Not Detected Not Detected Testing perfor med CoV-2) PCR (test utilizing T EM-PCR (Target code = 85251-9) Enriched Mul tiplex Polymerase Vel n Reaction) techn ology. Testing laborat ory is [facility], [address], [address] / [place] [address] CLIA ID: [id number]. This test has been valida mariana but [...] by another agen cy. This test was develo ped and its performance characteristics determined by [employer]. It bower s not been cleared or appr joão by the U.S. Food a nd Drug Administration. Results should be used in conjunction wit h clinical findings , and should not form the sole b asis for a diagnosis or tr eatment decision. Testing Performed At:[facility] [address] [place] [address] COVID19 (SARS) BAL Source (test code = 06086) [facility]woodCOVID-19 (SARS-CoV-2) PCR, Lower Xpkefddvfop4751-97-69 00:12:08 Test Item Value Reference Range Interpretation Comments COVID19 (SARS Not Detected Not Detected Testing perfor med CoV-2) PCR (test utilizing T EM-PCR (Target code = 71179-1) Enriched Mul tiplex Polymerase Vel n Reaction) techn ology. Testing laborat ory is [facility], [address], [address] / [place] [address] CLIA ID: [id number]. This test has been valida mariana but [...] by another agen cy. This test was develo ped and its performance characteristics determined by [facility]. It bower s not been cleared or appr joão by the U.S. Food a nd Drug Administration. Results should be used in conjunction wit h clinical findings , and should not form the sole b asis for a diagnosis or tr eatment decision. Testing Performed At:[facility] [id number] COVID19 (SARS) BAL Source (test code = 65087) [facility] InglewoodCMV Quant [id number] 20:53:12 Test Item Value Reference Range Interpretation [...] of the as say has not been international sourcing manager ally verified. The c linical significance of [...] by the microbiology la boratory at the [facility] [place]. Results must be interpr eted within the cont ext of all relevant cl inical and laboratory findings. [Auto mated message] The sy stem which generated this result transmit mariana reference range : <=0.0 IU/mL. The refe rence range was not u sed to interpret this result as normal/abnor mal. Lab Interpretation Abnormal (test code = 27707-7) [facility] CenterCMV Quant [id number] 20:53:12 Test Item Value Reference Range Interpretation [...] of the as say has not been international sourcing manager ally verified. The c linical significance of CMV levels at 4,000 ,000 IU/ml verses th ose above 4,000,000 is unclear. Result s are expressed in CM V DNA IU/ml plasma. Methodology: Th e extraction and quantitation of cytomegalovirus (CMV) DNA in human pl asma is performed using the [employer] Sy[employer] em. Amplification o f viral DNA [...] by the microbiology la boratory at the [facility]. Results must be interpr eted within the cont ext of all relevant cl inical and laboratory findings. [Auto mated message] The sy stem which generated this result transmit mariana reference range : <=0.0 IU/mL. The refe rence range was not u sed to interpret this result as normal/abnor mal. Lab Interpretation Abnormal (test code = 75554-7) [facility] CenterUrine Srkwbkv4222-13-39 19:39:03 Test Item Value Reference Range Interpretation Comments Final Report (test code = 8488) No growth [facility] CenterUrine Whzcqdp5540-64-48 19:39:03 Test Item Value Reference Range Interpretation Comments Final Report (test code = 8488) No growth [facility] InglewoodCytology Non-Silver Plater Interpretation 2023-08-27 19:36:39 Test Item Value Reference Range Interpretation Comments Gross Description (test d9valOJdJEAkgBTDABM code = 2457370169) qNRTtTE8lcSadgGh3fA ceWUWfdgP7uDTbXHkke 4etBKD0j7mtdvAEQneq UHXyGK9iWFhdGMAkKQ9 nZmUwXGRlZmYxXHBhcG VydzEyMjQwXHBhcGVya WD5WUEzGD8vjbmsEBdp TLyaLSJexqA0UQVomSX jZ6YrQJLbGM4ycblsXQ W9VRWZSgduQo3dvTHpu HtcZjFcZmNoYXJzZXQw ZEGvrUgjTOJrSGo2dO7 FKovjQ87tg9M1Zhf0RV GuITBeD5FkAN2yTCHnz XVkQ00XBcqpQNC0AZYK KbluXeiiwZbrs9MhhDT cXHNnIFxcaWQgNTEwMD AgXFxkYiBPVlIgIiAxN XLgDeD2WfB2RUj6UXXI QRBgEdUjSKluHZP9MBq 5LWXoUE3zFJdcmTUkHV arXxyzYQdxW533NYjpH CXkZ7VqF2DtDKvtOyMn XGlkIDUxMDAyIFxcZGI rL1TNRXMnFSSgUAD0ZN GjCSh1OAkgI4DVPFGyN MV8JZzbVUH4HcM3LBj4 RKZCMe1oNLY8ABS2Jtn oVVG9PAr7JIIbID5tTW lkzYRnHBcbd3JtTtUyB AHiLImzcdI0SDQiocNb IKupjPajtM1fPRArR02 ig9OHl0PrJS3XOZp4dr EczmtqsA2cBQQynbOyD WjmmOBjO0kqK0BjEEWi CkZpCEAPnPMeANS1oVm 4WXGgGYJjGMZ9KJiuBA NsaWRlcywgMSBHTVMsI DEgSXJvblxwYXIgDQox QYErbX3pZJMfz7VjX3T 6RYJcINtiw7ssCQXtPK dqd9XiEWoCYXWVWR5VJ U9zxJC5PVlODMIPC3mD mJA4OsRkoZP7SQ17API vGUKzdEQqXKfzD214t6 ctN4n7zXxmP8rezPT0Y Wivuq46PJV2JZbsVyvr iHG9UYmrPiojsH9jyFC IWVBFUkxJTksgbmFtZT 4JMTsRVmPMYM38Ey30F ZIhXKLfjTOxAXscH781 yJnzw7wzMcgnyWS6BCb iXkykwP3vuKDMZFCACb sEXbaeonOmXS6QLIqPZ C5VhXU6d9iqyLGmx6e2 LBhoXNB6vHwxgJIumag vaSZboVzdkj85WJP1JB NmMVxmczIwICBmbHVpZ PrlQywwaXO4HDfuOebe uT2rhOXWQICVYhwEChz tkhHtPF1PKGPUOH8VzJ B4AiQqhMO0EH67NZGsV GUduXBtXUyhO965EFHm ERngQWl8bhZdDFLoAPo mczIwXHBhciANClxwcm 02MOL0x5chdIZdSNujJ hjpoMAmmxD9KBfOLDJX VFeFYxXbBN0nCOuLU4C TJDiRPhflYIN8LWwkcL M7a6lkcAOoh1g6ZYhoC TP5lTGySPDxrLEcPARx bmNlbnRyYXRlZCBieSB vmAPrS5IaePWnCzCmOV Nmk24vwWKvbX0zwKKfr 1xmaWVsZHtcKlxmbGRp zoG4HWcEFFVTWDsZLnP xYD0vIBsAU2NTOiF4Fx D1DcJ1O1vjeUmlXeibk hNwlXCuJnUCnT9bqQah iH0wyQAeP6nlH3TrKHU eBiMaRUqzGBAmB45ku5 SVp1Hrz5mcsVgfz5Ssq NHlQW12ULJncGKeVRX6 ZV0mcZupLJJjPGbljWs qhF5bLUn9 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 A code = 9839) Diagnosis (test code = 34) y6iirZQaVTYxxTKvBPG wOFxhbnNpXHNwbHRwZ3 PynrrvGEagKV2wTL7uh GxhdHRveWVuXGRlZmYw h1gox756sEKof1ffWHP AddzhcPs8mGbmY88hf7 G2PzzpK4phNATrTNvhY UKgEAqjtEDaACs8BLIf cGVydzEyMjQwXHBhcGV olIY6DNSpBO1hnvycED jrBOfrTQSrbqA5XGIyh UKiF9EbYGTrJZ6dhljo QIN0AJqzMJJzBYG6UmC cYTKng6Rdohj6IkWorR s8s2wvIPNyTASnqXlei 9sfLAT4VIFtbACuN3xu jJ7tUDHmNO6uphjvw5c cPWrjXBnlLSCdoPJ1su P7SGRebMOlN6DbfU0mY JIiFNWlklSmlOtuyD3f ZnMyMFxjZjEgTHVuZyw qyHZyyOE4qGZyubUvs2 NrIFOtcj7qL7ucSUe7U G4uGUSggZB9TJrgKzEn cGFyXHRhYlxwYXJcbGk 3MjBcbGluNzIwXGNmMC QBCXSeIGA5lLYyL5ZgK GLfhMwjXWyeSFPnI62m bWVudCkgXHBhclxsaTB wLwy6NjVwtNrcJXsbwk 19KVZ7y3evbGLhDApmL ygusSDkbkP6PKhSAHRM AIeLSkIhBT8bSFfHZ5F CRUdJTnwyNTkzNXwxfD K1b3zbpJYvl3c5QNluN AM6pT9gYFVxqwIuUVQk CF5oAWDlXNXxpiYFASI xn1KwoK5uYXWxb0e5wS UqXRAfgwCvyI2oUOhbc HlwaGFlLCBccHJvdGVj xIQ3VJQuMBooc9ceRKN zWCxpi4FkMUzMGYEYQU 7MAY5irLG0L7iELAMLL 1bJfEL6u6cwmAObk1o0 SPjnOAD0qD3cebCtg8u aC4toQBmbrQDov29xeT F5ZL27IVuasRwaEXzpM 3ByYDsjAOyoODBih6Go UlKyg0JuBXWgwQ2hkrZ up2zzwZNvSVrgYvsubN GwvtS6NCgGOFUKYVcGZ kQpFY4cYZnIMYWNCkV6 Md01PYPrUUCynAPlXCd uE401WVVfSQoeVXDpi0 WuN0GyKaYkOYuquGxsD 0xQMCBccGFyXHBhcmRc Ccl1MuOtS82SVDS3GRk rSBYlUEacuQy1GEFqk8 ZxPW6csK9iL7rndZqyQ IYtqfPFcj5mIKM9XTdx XNUolRKahKQrdOY2LXX jOUjjn8gaLGNaMNsbs6 PaAFdNXCQILV8SIU3cp UP5Q2uWIEMXT5tPgHX6 i9qqmFZvc6h7NGnfFDP 3yX41ZBziXumasXH2GD omKznsvE9paNYKXSRCW agAErofjpHnGH8ZRBxY AT1MlEY9a3mxpSGhq4d 3KXfyICV8uGwwbTQoal vclt60GUW6OJMiZqBeL TUeDJBmr1GmKPfcjhM0 oTXeSYjdpR9xwCIdloz aYXbrWriblMT7CLryHa vsdE5thWLHCNYZDstHY hjjxmEcXF8ZJAOYOU1S cNO8PAF8kTZ8UN27PMJ sFTMekIFnTUufG786FN BsYWluXGZzMjAgIFxwY WDkxmQKULRFWMxGF0Gm TUVUQURBVEFfQkVHSU4 zQhU3VwD9GV70Gxt2Pm NpCIA5XuRhHZXbT86UH gSHHHXXM02PNTXQCKWC B3LGWHWGADbCL5RBVX0 PIUFGMKIMVO0TIJuDTd BjGEnkw4LhbR0wy3sxO 0IdjFzgX95uv4ycdAQb rEX8jTXbUNTshlQvFDH dz2GqTbQso0NfFROcjD 8skyOsDO2pZQc+NDBXS EmMN0NYVF1WZJDCLGGD QM6WFrCrVLnQR6GMY6m ERVJfTUVUQURBVEFfQk SOWT6vQHs7R1vWInIBE OhcMRdvU05iq7frMVco y9S3HeW6UnA6gUb3QRV YZVOLOL4WXSKYZ48YOJ XFHFYYP7ISJSCLLpLXP TIQK99KBTHJDKKEU2TN M6mZOLXFCqMUINCRK32 GQSRZMRVTT7BFBSIIVQ RFBkUSOxJZFE5BNFPRZ PUFPN2LVOaXYiTxDCAE L7USNtIOH5fyEIFEZMH FHMOyHF2XlQ== Comment (test code = 9835) q6gufYTdXDQmeLIjFEO wOFxhbnNpXHNwbHRwZ3 KzatlzTGkqNV0zWD8ty GxhdHRveWVuXGRlZmYw b1byl114eBWfm2vyHGC XefsxhLs9hEgcR97lj0 T0IuivH59hhDQqPMK9J TIyNDBccGFwZXJoMTU4 RFYhvUSyY3ryMKGwUW7 hcmdyMTgwMFxtYXJndD V1EDEyjUExL5RzHSAqT OatTPPspuj4JnIdLb6s dGVyeTcyMFxwYXJkXHB sYWluXGZzMjAgVGhlcm UgYXJlIHJhcmUgZXBpd FybhPlxzQQmA5YifLTw x1b8uDZfzPencGZwXZB bKDRoEWKiuSL8TC0lHY A2kSEoW5RhRSDolAccW HByZWNsdWRlcyBmdXJ0 nKAjEKRtVGLtY5Kdvxp 4WAGxf51pQVHtLNQmHE UnCNSkiIZkPY1njKNeB HIzcITydK12eoVkGAmc csZda3UqUO2tE6z1YW4 arAztgPMjeZTpf2TpR8 SjSQ0jWCvrJ42doHVmt E1wkIfvxbX1ySXhSAH0 bmdhbCBvcmdhbmlzbXM eO3QcUF3kiRHhLOTuiH ThlDZfZI2oE8uymbtrU XdfT04lmnMpLJXby24o qSGlunKcv95iOA0gAWD vQSWNw388nz4vwcRfqm QxDNZgjw9spkeybVKvD HBhcn0= Retained/Biomarker Testing c5sfmHKpUPXgoPKyCDS (test code = 9838) wOFxhbnNpXHNwbHRwZ3 NesgxcCXiyTW0vBQ4ez GxhdHRveWVuXGRlZmYw e6xvx135cJVnn3mjVSM DfdltjRf7lTqhD02cv5 K1TcfsF04fdGPsPHO3T TIyNDBccGFwZXJoMTU4 MZResRFlM7anMRBeVP3 hcmdyMTgwMFxtYXJndD Q7LUQguSBkP8YxYVZdT SatHTOvvej6ZpVsRh2f dGVyeTcyMFxwYXJkXHB cLAoyHPZnAaCpO3G6LR IgUywgMiBTUFxwYXJ9 Informational Points (test s2xqyDPtEBVrgBNlRyY code = 9836) vJANdVVWch6dhGWStdW FuZzEwMzNcZnRuYmpcd HUbYMEfAlQmv0akz553 wVTkx9syXIQiLfD5xHA dWBWcvMYiR015EFFbGL nyq9sxl0BrAQWzpKKcy 5G7SOPPFGvrAUCNJEa2 d7mcMnUaWuF2rAKwINc yA8veklSrmFVwUJOrZR n4wN18OJGzoK2kcUDwX DkfknZaLaV6KBruYLQn IaR2JJObxUIfMHObB8m yZWQwXGdyZWVuMFxibH OpCBK2nKvzm3E8qBZia GVldHtcZjBcZnMyMiBO y4HhZMj9mDdmI2OxOYC nHmG2rMQaYFFkYRawJC XaCHFinqG0iJ31NAcrr xT8bHXzz3Fab49ff093 qA6orOQhVHR4BRCxRDD hwYBcBBVhNKN7VHWbjZ DvM9tdJIWaDS7qrzksW UzuIAnmJAQbgEW3YLAy oUEsZ2NtLQHyNCjhLVU cydg2AuMlDx4ztIXfiC fzVHoss5ezx4nmaBGcY ac0RGBpGvKjGwljRJob b6Fxn0ryWUFdgm8oBPE 7uHEggIgfb0B5tETcCR HbwPAunwXvOVCbUfB5S XniVQ1myo43ZBYoAKZ5 jv4blEGvxVmfkeVikKH cAFjgX4FqMFEnl635FW ZcJ9RvZKEds6N2hfCpI lBhKFVriVY2foS0DVKo CCy9iKXcudN2boIglRU vE6xkiY7qZSKaJS0wle flr3seZKxrQXiwBZLof GZ4pqO1FKVenTIfF9Jx hN7cUOSmLErrAIPlxpi 4MlFtMd5dgQMpbGkcLE xzYmtwYWdlXHBnbmNvb nRccGduZGVjXHBsYWlu XHBsYWluXGYwXGZzMjR gtXkwfOzxoF0kGtPqVw NpWEbjQY5yRJFvD4ils QZcSEPbGAQjV9kjZwRk gC2iiBcbUUwmzdH3HUd wW09ySHY2LTE3ibKcWL HkebWwUCBdZETtWR4vx IGdYUIfACPrQK5oMUW4 ZWxvcGVkIGFuZCBwZXJ go1VhBJ3qSUDbqQXaQV A8XARwm9VaC3DpSMQ5H AIlbL2bLDYksVAJGZKY RCBBbmRlcnNvbiBQYXR mw9neF1urIE8cAZptLc 9yYXRvcnkgTWVkaWNpb eEaFFInPHPzXDCne5Gt ZIhjrvJbsw61FUGuFH8 pe9ItL7tapANrpQu1IF XhRZCoIKMmg9QvYTBfj p76XVYaLsgnjNkvFZDm Hd1zFr1eTFFluqXhHPW 8UwXSBB4whojunALfpX ilgu3cRJMgFOabRIFsE GZzMjJcbGFuZzEwMzNc aGljaFxmMlxkYmNoXGY lGIivS9zjOdVjBpIgZx xwYXJ9 Lab Interpretation (test Abnormal code = 16577-8) Michael E. [facility] CenterCytology Non-Silver Plater Interpretation 2023-08-27 19:36:39 Test Item Value Reference Range Interpretation Comments Gross Description (test [id number] code = [id number]) aOQHcZA6yaMiqiVe1dQ zlUVTpplW5dUApWMixg 2vqZNG3b1dtdhBQOcnn MIYiGK3oQZeiAGEfUZ9 nZmUwXGRlZmYxXHBhcG VydzEyMjQwXHBhcGVya PO3TZMzHU3dhiijQNic GIyaROAlloX4FNGcyOG rI0VaPKZtSR8zlstcVD O8TPUPRuxcYk4zdEXjg HtcZjFcZmNoYXJzZXQw XZQxqAmlNSKzRMb1zO5 WNutqW97yk9A0Jkm3YO VoGTWhJ2NxZW3xKASwj WXcK91EOtztFIQ3RMXX JrzbIdzqrLlww4NuzVT cXHNnIFxcaWQgNTEwMD AgXFxkYiBPVlIgIiAxN EMaQrI6CzV6OJf2HYGO GXPkPqThNKjoJQW8DCv 4WPYcWD0lISswjJIxWW joRtutQRcaW631SWhkT QYeQ1UqY6QlEWctZvZj XGlkIDUxMDAyIFxcZGI sL7TNIYLnLLRbVCZ1VA IaEFf5HCzfQ5MSWXBvW NT8ZQgdMUN8NdD7UIf1 LRXNZs3tZJV0CCZ5Adh xPGC8LLu0SGHuKJ8hXL ybsZMxGPbvn9RsUrFnE DVgHTzegsH4TEGwrgUp TGvhuMcprL9tHVIqV78 wc8BUk9WzHH4SYCd0ph SfkvrffW2mTELsctRuX EnwcDCeI6wkX7FtSJMh VwQcZMJPtMLdYLZ5zTg 0GJJzCJNfWEU1ROmjSM NsaWRlcywgMSBHTVMsI DEgSXJvblxwYXIgDQox UPLooW5vPFRbs6WnQ5J 8NVFqRMror3twIBPnSJ bcm7IoZVpNEJCPPZ3TX F4flNQ8HZvKAQWUM6gZ gAY6XjEqnJQ2QI43MPE qHTDhcTSuVPjjE148l6 msX6t8qMivT4dxxOI7Y Wepke62ROZ3HFzaIguv aUA4HHjzWysqyZ4ygPI IWVBFUkxJTksgbmFtZT 9VGBhVAbIIWB76Yj85K TSxYLSfyBDfUDmtG270 dPzfb3dmHuikyLT9UPi eFjybhQ2zaFYXUKLPAs rSEwpwknUhJD9OKFzKE T5XgEP8w3nmeCZdr0z4 HZjvHTH4eKgioHLmynw vbOVljOazyw58YSB2XV NmMVxmczIwICBmbHVpZ KjtPvwzwYS5YHzkXdtq hP5owCPIZCCERxtQThb jruCcSD9QCFIODP2JbH T0NvMmdBI1VP04IQBaV OGmrZAmDGecH979BUHx NXmfTZl9blGgDKOzGWc mczIwXHBhciANClxwcm 25YZZ6s9tzxFYpXSybS fyydYSbniU1UBdBDWHS STmGEyDzTB3cIBeUH7X UANsCKsiwKLJ5YPcnvB Y2w0fdlSKyc2o3SXbkF VF7uCBcGOSdnLVfUPJi bmNlbnRyYXRlZCBieSB mkROoH0BbmBKyRnDkAZ Ggp63oiECwgD0zxEOkq 1xmaWVsZHtcKlxmbGRp usM0XZyFGWJAAGaWIaZ bPQ3bBVjCH5YRRzM7Ty N3ZeX1M2jidYgeMbvpw cAkqCUbTeHUsA0yuUyo eS7csPUnU9beF3NoXVY nVpSsDLpsPTIrY47zz9 RLb9Trb8envEblg2Ojx FIrIY29OAFvcQOkXQJ2 XR0zdMilUAOyHKngtEk cnZ3fWZi7 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 A code = 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) Diagnosis (test code = 34) f7dtxWPsMUYhbTEhETQ wOFxhbnNpXHNwbHRwZ3 XgohplTYylNK9cOV0dp GxhdHRveWVuXGRlZmYw b1jzg537kEMoo1ooIDU TpxkhiIh5gPmrD11ix7 W8QxckL6tnXQSmJRlwE MMvODfhfXGdQDp8AOXi cGVydzEyMjQwXHBhcGV hvVC1NNBkAI2kkhxaCL qvYIrmKVOocqS7TLSgp JDlL5UnSIEuNB2mpthl FBA9KNlsYRZpATC7TnB sCHCtz4Ewmzd2SfRqcF b6o4ukYXXuURAovYmus 7uhAPR8ZVOswLQmP1qw fA7aSOZvAG8arqktb8o mCCciYRvuXCMswVH2ox Y8EPNnwPFtT2OniO3jL CHvKSOmhpFahXfwoG5o ZnMyMFxjZjEgTHVuZyw jjTHqoMY3oSKldpEdg7 ZtUZBhcz4vD2fmCBl4D A5vUEQedOI4VCgzRqVl cGFyXHRhYlxwYXJcbGk 3MjBcbGluNzIwXGNmMC JHRPZyVHT6iPVeM5TlJ LXziHbgFHbzIPRdN31a bWVudCkgXHBhclxsaTB iTyh7DaDlsHkqOAjfpe 57FTF9o8fjgKVdFQgzH huboCLjueS5UEfXVUIF GSiMHcEdHP7sUHoTK1K CRUdJTnwyNTkzNXwxfD H1m8jkmHGxs9p7ZUuvS AE6dZ3yCJZhygLuBDCg JH8rYWCjRXIznxJDPXB wn1XriS4cEBQrv0o5kT BuHGSifjEifX6vATogw HlwaGFlLCBccHJvdGVj lYM0RVLcMKqiz6iaQQF lZJgkx2CnNPrDHCXVMM 6SWY9ymZC7C4mKDIBZH 6fTxVW5q4evpVTjr0t6 ZWarMQQ5dZ6psfWkg5d rG1unFNjtfBUar24uyG I8QX42JTnmqAneZRgoJ 2WhDTftSFvjMJRwj7Mj LjMdp4QmZRQuzZ8zbxQ nn2xxpEEdFRdqZwnpyF OsqeU4AKvLHNTMKKaBW lTmLV4hEVoRZTGAQhJ3 Sh11SPCiHJTcgTVdGXe dV935SONfIIpkBBLhb9 AsI9OvUwJmAQhicTcyL 0xQMCBccGFyXHBhcmRc Dxo4ZwHuG50SOJB5SIc aKGMrCXnxwHm3EOKiz3 RsKK3loA2fO1qedHgvW HOezlMUim5lEJU8YYln ZNCnaUWlkNUxaQH5ISB pVAcbe8cpVVGsQAeka4 TaGPsVIVSAVU0EPP7si VJ0U8bAPUODJ8hUiIJ2 a6qgsUAej0y6APjkOZY 2zJ93LXnyOetcoJR4TV eqYvrfoV9mtRBXLNPWB cgPCizviwUeLR3QUAjR GZ4EaCJ8p4pukIFvw5m 9BWiwLYZ0eElebLYypx uzoy72NDN3OVMgFkXzY YSmBHFqa6ErDOizebI5 rUShFDyrbV9fgQSswhj kZOgaPiasoUV9OIhmLx kujT9xzOAPMZNABpsQL vsnzsEgIK5ZJUXPQO4U uYE6LTA5jRZ1TF42HDQ uUQSsuUYoYSymG681KV BsYWluXGZzMjAgIFxwY QNstrTMSBSZKIzYX9Bo TUVUQURBVEFfQkVHSU4 jKpS1VzF1QO19Cnk4Hy DxIXV7JbJnRUNjX66LR bSHVAIVX26YYLKONOXH Y3VYKSYUCIaQK5QAVZ6 TOKTVMQIJUL7PKIrZUh NiGXsuv3YieZ8am4xsV 2BsdQwjD13ly4aqrTAc pXI0rFKkKAMfpfNgRUI kh1XnIgCpm2QuDJEvdQ 2zyiHxFG0nBKu+NDBXS MlBY8BXAS5OFLGJEDSJ MR3MGpFvEYuVH2UIP1q ERVJfTUVUQURBVEFfQk ZXHK1qACc8H7eANtZGM YxbFUheG79wd7ayTHuq h2E5SyI1ZuA1kTj7OSW YKRNHXU7KROFRI14WMB WMMPPIP0FAMZYWLhTZJ VSFQ05GLBFVDFYHP1GK E9lQJPGBEiHOYBYKJ97 FTKVKJFYQZ5XDBVYOQK DRGcNVElNMTJ7HKSDAB TRNZY6VZEzTOnDuCJIR H7NDMrMGB6eeINAEYYU TFOOgTM6IzC== Comment (test code = 9835) h4tyvVPyCKAfpBGnMUX wOFxhbnNpXHNwbHRwZ3 VeiuocWCcsKX6lFS0ag GxhdHRveWVuXGRlZmYw d3yow626qYEfa4roHER TsjjftHo5uJlhI18dj9 Y9RvrxL83xvPJaHSR3D TIyNDBccGFwZXJoMTU4 NDWxjEAlF5zuGWGcJK0 hcmdyMTgwMFxtYXJndD U1RRCljELeA0ByLWUtE AqmBAVjsix6RbHlGu0c dGVyeTcyMFxwYXJkXHB sYWluXGZzMjAgVGhlcm UgYXJlIHJhcmUgZXBpd MnlsKmkbWQcH1IhpLXd b1p5uXDqbZmyiSYrPSE sDIAoEUBtjSZ9PT9gKI T1wHTjS5SaTWDioNlbV HByZWNsdWRlcyBmdXJ0 fVDuEQOoEUQnK8Kefhq 3ACWhw15bTBDkLDMxYN CwRVWdaNTzDD2wvPZpG MEquCAdnM55eaOdLFhc ypDwn3ShQZ5dN3b8IQ2 whJweqAQbhWYmy5PzB7 AuIQ6aZNszD30udNJvf H6itOhzavZ4tTJuJLO9 bmdhbCBvcmdhbmlzbXM jB2KpNQ0giWKtOOItrS RspKMqXK0tW0bzesicH FngH80jjuNvXVZtc53e cKGnnlAip05oWC2oEEE ySRGXy961qw5oeqOcnn WsCJKaqq4hexzqyFHmH HBhcn0= Retained/Biomarker Testing m2hwoPZkORXpsUCnVLQ (test code = 9838) wOFxhbnNpXHNwbHRwZ3 IngnerUVktMB9vHD3sg GxhdHRveWVuXGRlZmYw r9tzg514pMFji6ulYRA WhcrdgWk6sLncV35ao3 R8KruoH01lsGNnQZC5C TIyNDBccGFwZXJoMTU4 KSTvmWQkV0zmYDWiGF0 hcmdyMTgwMFxtYXJndD S3DPDyqFVpG1SiVYUnX IhrKWLjspy1DxMbOa1n dGVyeTcyMFxwYXJkXHB lNHgxHWIqSnPjK1L8OD IgUywgMiBTUFxwYXJ9 Informational Points (test h3cjbNHpYKPcnQVoIiT code = 9836) nUDXhRNGwz1dmRFYteO FuZzEwMzNcZnRuYmpcd TBqUCIjOvNvy6pen722 gTImr7lrRRHyYdT8wCI cGNKtoUDtK710FQIgGX djq7pjc1XjFUCjeGOsk 0T0XWMIRDadKKBVULa2 u5piLdKpSzK5lBWkRBj iH3ymnuKdaBJpZZRpIR b6kS57JGKflD9itIXfT JpqefXwNhZ7MCrdDSMy VjD1KSTkuSAeHGWaU7y yZWQwXGdyZWVuMFxibH XjXGB9fDrpr0C8yAPvr GVldHtcZjBcZnMyMiBO s0ArALt7xUweB6SmFKE aMjT6iLGbWLXnUMjfED QnBIUbtkQ9aW93NLsie lS0eOGzj6Jtg99ug747 uI3rpHZzRRD0NLKfCNM esRJnNJHdBCP8AOKhmM MmA1apWWFqXK2wcutbG TxgVCgwLWXedEC1ZPTm iNXrJ6QtOZDxUEgpGBV uibz4BdVpKv0moPUwgQ umYYdhf7gpx8jziKHoU ts4JXRiWhOjBzrdPRax g0Rlk3xmESOrzl4wTDB 2uYBrkTqvc7A3nOEvZT VtaDAyocOuCSNkOcX7O YxqUF7ayz40APBuPJM9 ec8ndYVftMzibjOptXU jBTsyL6FdJVBso790DY UuC2UvBPPaw2P8doAwA mRtOGSlhIC5sdI1VPHl LPz0lNWkavX3hvXycSC jY4jmnA3lSNTqGA4wra uez1mtPScvFMeoZJBlu RM0jmI9GHBgmJWrU7Sl uY4dNIGkZOjoXNDlljp 9JtHlRd2cfBGrsPnfEN xzYmtwYWdlXHBnbmNvb nRccGduZGVjXHBsYWlu XHBsYWluXGYwXGZzMjR cgBdzgOnbkZ2sYfQfUa ZqWCjeCT7nNNOaI5ivu UDoGAHxFDMcZ9jiWhNg mL2biVpiZQouzrP2HSg eL01gKDU6TXW2msKxIB CxfyGkWZMoNBPbZP2sr FTnIVUkYVIyGK2hHBX0 ZWxvcGVkIGFuZCBwZXJ mv3OzMX5jAFPkuGMuML L2JDWdu0WkE5ItVOG2C ZHpbN0pEBIfbFERUMQX RCBBbmRlcnNvbiBQYXR et1pgM3vnMK4lZBczRh 9yYXRvcnkgTWVkaWNpb iRoOXAqSOKiFYXmw9Rj ITiyorGylp39PPUpJK6 yp5UhI3scmPLudYe3OD ZaSHUlEVYby9LeQGSdw e89VZUlCqgbiMmkHOKi Yn8wJa6sKKLzygNrTMP 9OvHMXF0bfhthyMVglD aaue5qPGEtHAntBAEiT GZzMjJcbGFuZzEwMzNc aGljaFxmMlxkYmNoXGY pZJvwT2mtGfHxHpHmVa xwYXJ9 Lab Interpretation (test Abnormal code = 83641-4) [facility] Cancer InglewoodPneumocystis Quant PCR, BAL 2023-08-27 15:20:40 Test Item Value Reference Interpretation Comments Range P. jiroveci Not Detected Not Detected Assay Range: 8 4 copies/mL to BAL-[facility] copies/mL 1.00E+08 copies /mLThe limit of (test code = quantitation (L OQ) is 84 07778-6) copies/mL. Pneumocystisjir oveci DNA detected below the LOQ will be reported as Detected:<84cop ies/mL.This test was develo ped and its performance characteristics determined by [employer]. It has not been cleared or approvedby the U.S. Food and D ReverbNation Administration. Results should be used inconju nction with clinical findin gs, and should not form the so lebasis for a diagnosis or tr eatment decision. Perfor med At:[facility] [place] [address] 1 [facility] [place] [id number] Direct or: Dmitri Short, PhD DEJA (ABB)C THANIA # [id number] Interpretation: A = Abnormal, H = High, L = L [facility] Cancer InglewoodPneumocystis Quant PCR, BAL 2023-08-27 15:20:40 Test Item Value Reference Interpretation Comments Range P. jiroveci Not Detected Not Detected Assay Range: 8 4 copies/mL to BAL-[facility] copies/mL 1.00E+08 copies /mLThe limit of (test code = quantitation (L OQ) is 84 12369-3) copies/mL. Pneumocystisjir oveci DNA detected below the LOQ will be reported as Detected:<84cop ies/mL.This test was develo ped and its performance characteristics determined by [employer]. It has not been cleared or approvedby the U.S. Food and D ReverbNation Administration. Results should be used inconju nction with clinical findin gs, and should not form the so lebasis for a diagnosis or tr eatment decision. Perfor med At:[facility] [id number] Direct or: Dmitri Short, PhD DEJA (ABB)C THANIA # [id number] Interpretation: A = Abnormal, H = High, L = L ow [facility] CenterCMV Quant PCR, [id number] 15:20:39 Test Item Value Reference Range Interpretation Comments CMV Not Detected Not Detected Assay Range: 7 9 IU/mL to BAL-[facility] IU/mL 1.88E+08 IU/community educator he limit of (test code quantitation (L OQ) is 79 = 5211) IU/mL. CMV DNA detected belowthe LOQ wi ll be reported as Detected:<79 IU/mL.This test was develo ped and its performance characteristics determined by [employer]. It has not been cleared or approvedby the U.S. Food and D rug Administration. Results should be used inconju nction with clinical findin gs, and should not form the so lebasis for a diagnosis or tr eatment decision. Perfor med At:[facility], DIM189 [address] [address]Oza Direct or: Dmitri Short, PhD DEJA (ABB)C THANIA # [id number] Interpretation: A = Abnormal, H = High, L = L [facility]CMV Quant PCR, [id number] 15:20:39 Test Item Value Reference Range Interpretation Comments CMV Not Detected Not Detected Assay Range: 7 9 IU/mL to BAL-[facility] IU/mL 1.88E+08 IU/community educator he limit of (test code quantitation (L OQ) is 79 = 5211) IU/mL. CMV DNA detected belowthe LOQ wi ll be reported as Detected:<79 IU/mL.This test was develo ped and its performance characteristics determined by [facility]. It has not been cleared or approvedby the U.S. Food and D rug Administration. Results should be used inconju nction with clinical findin gs, and should not form the so lebasis for a diagnosis or tr eatment decision. Perfor med At:[facility], [id number] [address], [address] [place] [id number] Direct or: Dmitri Short, PhD DEJA (ABB)Edis [facility] # [id number] Interpretation: A = Abnormal, H = High, L = L ow [facility] Respiratory Culture w/ Gram [id number] 13:48:15 Test Item Value Reference Range Interpretation Comments Final Report (test No growth code = 8488) Gram Stain Report Many WBC's seenNo (test code = 53568-0) organisms seen. [facility] Respiratory Culture w/ Gram [id number] 13:48:15 Test Item Value Reference Range Interpretation Comments Final Report (test No growth code = 8488) Gram Stain Report Many WBC's seenNo (test code = 60785-2) organisms seen. [facility] Medical CenterFungiteel, [id number] 08:58:06 Test Item Value Reference Range Interpretation Comments Fungitell S-V <31 <=80 Interpretatio n: The Fungitell (test code = assay does not detect certain 9239) fungalspecies s uch as the genus Cryptococcus (T reynaldo et al. 1991) whichprod uces very low levels of (1-3) -Wqhf-R-Ruemiz. The assay also doesnot detect the Zygomycetes [...] for thesemodificati ons were determined by [facility].If samp le result is greater than 50 0 pg/mL, physician may o rder atiter of the sample. Ple ase contact [facility] [employer] [facility] if you wouldlike to or marisela a retest of this sample to obtain an actual value.Samples a re held for 1 week after init ial testing date. ___Performed At :[facility], [address], [address] [place] [id number] Direct or: Dmitri Short, PhD DEJA (ASHLEY)Edis THANIA # [id number] Interpretation: A = Abnormal, H = High, L = Low [facility] Cancer InglewoodJillmelquiadeselMelanieLdtay0717-12-52 08:58:06 Test Item Value Reference Range Interpretation Comments Fungitell S-V <31 <=80 Interpretatio n: The Fungitell (test code = assay does not detect certain 9239) fungalspecies s uch as the genus Cryptococcus (T reynaldo et al. 1991) whichprod uces very low levels of (1-3) -Wvoe-P-Rbulev. The assay also doesnot detect the Zygomycetes [...] characteristics for thesemodificati ons were determined by [facility].If samp le result is greater than 50 0 pg/mL, physician may o rder atiter of the sample. Ple ase contact [employer] if you wouldlike to or marisela a retest of this sample to obtain an actual value.Samples a re held for 1 week after init ial testing date. ___Performed At :[facility], [address], [address] [place], [place] [address] Direct or: Dmitri Short, PhD BCLD (ABB)C [facility] # [id number] Interpretation: A = Abnormal, H = High, L = Low [facility] CenterMRSA Screening [id number] 18:18:29 Test Item Value Reference Range Interpretation Comments Final Report (test No Methicillin resistant code = 8488) Staphylococcus aureus isolated. LAZARO (test code = Testing is performed using LAZARO) PBP2a antigen detection and cefoxitin screening on isolated S. aureus colonies. This methodology may not detect uncommon mechanisms of methicillin-resistance in S. aureus. [facility] CenterMRSA Screening [id number] 18:18:29 Test Item Value Reference Range Interpretation Comments Final Report (test No Methicillin resistant code = 8488) Staphylococcus aureus isolated. LAZARO (test code = Testing is performed using LAZARO) PBP2a antigen detection and cefoxitin screening on isolated S. aureus colonies. This methodology may not detect uncommon mechanisms of methicillin-resistance in S. aureus. [facility] Medical CenterAspergillus Antigen, [id number] 17:45:05 Test Item Value Reference Range Interpretation Comments Aspergillus Antigen 0.09 0.00-0.49 Index (test code = 4728) Aspergillus Antigen NEG Testing performed by [employer] (test code = immunoen zymatic 4729) methodology [facility] detects Aspergillus gal actomannan antigen. [facility] CenterAspergillus Antigen, [id number] 17:45:05 Test Item Value Reference Range Interpretation Comments Aspergillus Antigen 0.09 0.00-0.49 Index (test code = 4728) Aspergillus Antigen NEG Testing performed by [employer] (test code = immunoen zymatic 4729) methodology [facility] detects Aspergillus gal actomannan antigen. [facility] CenterBody Fluid Diff Path Review 2023-08-26 16:39:53 Test Item Value Reference Range Interpretation Comments Body Fluid NO DIAGNOSTIC Diff Interp EVIDENCE OF (test code = MALIGNANCY. ____CHERYL Gibbs MD, PhD 2249) - [id number] by: CHERYL BERKOWITZ MD , PhD - [id number] D ate/Time: 08.26.2023 11:3 9 AM CDT Transcribed Aquilino e/Time: 08.26.2023 11:3 9 AM CDTElectronical ly Signed By: CHERYL Gibbs MD, PhD - [id number] on 08.10 11:39 AM [facility] CenterBody Fluid Diff Path Review 2023-08-26 16:39:53 Test Item Value Reference Range Interpretation Comments Body Fluid NO DIAGNOSTIC Diff Interp EVIDENCE OF (test code = MALIGNANCY. ____CHERYL Gibbs MD, PhD 8754) - [id number] by: CHERYL BERKOWITZ MD , PhD - [id number] D ate/Time: 08.26.2023 11:3 9 AM CDT Transcribed Aquliino e/Time: 08.26.2023 11:3 9 AM CDTElectronical ly Signed By: CHERYL Gibbs MD, PhD - [id number] on 08.10 11:39 AM [facility] Medical CenterUrinalysis with Microscopic 2023-08-26 03:07:11 Test Item Value Reference Range Interpretation Comments UA Color (test code = Yellow Straw-Yellow 32338-1) UA Appear (test code = Hazy Clear A 53356-7) UA Glucose (test code NEG NEG mg/dL [...] code = 2 See_Comment Some rep orting 18484-8) parameters with in the Urinalysis test have changed due to the implementation of new instrumentation in the [facility] [place], [facility] greater sensiti vity of measurement. Urinalysis resu lts reported by the [facility] enters using existing instrumentation , as well as Urinaly sis testing perform ed manually or by backup methodology at the [facility] [place] paula l remain relative ly unchanged. New [...] = 143 See_Comment H [Automa mariana message] 96936-8) The system [employer] generated this result transmitted ref erence range: 0 - 2 /H PF. The reference range was not used to int erpret this result as normal/abnormal . UA Mucous (test code = TRACE Not Seen-Trace 94935-7) /HPF UA Bacteria (test code NOT SEEN NOT SEEN /HPF = 11607-1) UA Squam Epi (test NOT SEEN None-Occasional code = 79914-7) /HPF Lab Interpretation Abnormal (test code = 74698-8) [facility] Cancer InglewoodUrinalysis with Microscopic 2023-08-26 03:07:11 Test Item Value Reference Range Interpretation Comments UA Color (test code = Yellow Straw-Yellow 22972-8) UA Appear (test code = Hazy Clear A 82987-3) UA Glucose (test code NEG NEG mg/dL [...] code = 2 See_Comment Some rep orting 87785-3) parameters with in the Urinalysis test have changed due to the implementation of new instrumentation in the [facility] [place] greater sensiti vity of measurement. Urinalysis resu lts reported by the [facility] enters using existing instrumentation , as well as Urinaly sis testing perform ed manually or by backup methodology at the [facility] paula l remain relative ly unchanged. New [...] = 143 See_Comment H [Automa mariana message] 84610-6) The system [employer] generated this result transmitted ref erence range: 0 - 2 /H PF. The reference range was not used to int erpret this result as normal/abnormal . UA Mucous (test code = TRACE Not Seen-Trace 02286-0) /HPF UA Bacteria (test code NOT SEEN NOT SEEN /HPF = 50259-2) UA Squam Epi (test NOT SEEN None-Occasional code = 66205-9) /HPF Lab Interpretation Abnormal (test code = 86308-2) [facility] Cancer InglewoodBody Fluid [id number] 03:03:11 Test Item Value Reference Range Interpretation [...] cond ition. Pathologist con sult is available. [facility] CenterBody Fluid [id number] 03:03:11 Test Item Value Reference Range Interpretation [...] cond ition. Pathologist con sult is available. [facility] CenterCell Count [id number] 03:03:10 Test Item Value Reference Range Interpretation [...] should be interpreted in context with the [facility] s clinical cond ition. Pathologist con sult is available. [Aut omated message] The sy stem which generated this result transmitted ref erence range: /mcL. Th e reference range was not u sed to interpret this result as normal/abnormal . [facility] Medical CenterCell Count [id number] 03:03:10 Test Item Value Reference Range Interpretation Comments Type BF (test code = BAL RANULFO 7671) Appear BF (test code BLOODY = 4819) WBC BF (test code = 115 See_Comment This ass ay has been 8035) validated for b hung fluids. No reference ra nges have been establishe d. Test results should be interpreted in context with the [facility] s clinical cond ition. Pathologist con [...] should be interpreted in context with the [facility] s clinical cond ition. Pathologist con sult is available. [Aut omated message] The sy stem which generated this result transmitted ref erence range: /mcL. Th e reference range was not u sed to interpret this result as normal/abnormal . [facility], [id number] 01:55:11 Test Item Value Reference Range Interpretation Comments V Lactate (test code = 2519-7) 1.2 mmol/L 0.5-1.6 [facility], [id number] 01:55:11 Test Item Value Reference Range Interpretation Comments V Lactate (test code = 2519-7) 1.2 mmol/L 0.5-1.6 [facility] Antigen, [id number] 20:15:45 Test Item Value Reference Range Interpretation Comments Streptococcal Urine Negative Testing is performed using Antigen an immunochroma tographic Interpretation (test assay f or the qualitative code = [id number]) detection o f Streptococcus pneumoniae anti gen in the urine of patien ts with invasive S. pne umoniae infections. It is intended to aid in the d iagnosis of pneumococcal pn eumonia and bacteremia in c onjunction with culture an d other diagnostic meth ods. [facility] Antigen, [id number] 20:15:45 Test Item Value Reference Range Interpretation Comments Streptococcal Urine Negative Testing is performed using Antigen an immunochroma tographic Interpretation (test assay f or the qualitative code = [id number]) detection o f Streptococcus pneumoniae anti gen in the urine of patien ts with invasive S. pne umoniae infections. It is intended to aid in the d iagnosis of pneumococcal pn eumonia and bacteremia in c onjunction with culture an d other diagnostic meth ods. [facility] CenterLegion[facility] Antigen, [id number] 20:14:53 Test Item Value Reference Range Interpretation Comments Legionella Urine Negative Testing is performed using Antigen an immunochroma tographic Interpretation (test assay f or the qualitative code = [id number]) detection of Legionella pneumophila ser ogroup 1 antigen in urin e specimens from patients w ith symptoms of pne umonia. It is intended to aid in the presumptive hermann gnosis of infection cause d by L. pneumophila ser ogroup 1 in conjunction wit h culture and other diagn ostic methods. [facility] Antigen, [id number] 20:14:53 Test Item Value Reference Range Interpretation Comments Legionella Urine Negative Testing is performed using Antigen an immunochroma tographic Interpretation (test assay f or the qualitative code = [id number]) detection of Legionella pneumophila ser ogroup 1 antigen in urin e specimens from patients w ith symptoms of pne umonia. It is intended to aid in the presumptive hermann gnosis of infection cause d by L. pneumophila ser ogroup 1 in conjunction wit h culture and other diagn ostic methods. [facility] CenterVancomycin [id number] 14:20:58 Test Item Value Reference Range Interpretation Comments Vanco Trough 11.5 See_Comment Toxic Trough Le win: >20 (test code = mcg/mL [Automat ed message] 4092-3) The system [employer] generated this result tra nsmitted reference range : 5.0 - 20.0 mcg/mL. Th e reference range was not u sed to interpret this result as normal/abnormal . Vanco Tr Dose See Note Level, date, a nd time of Time (test code = previous d ose is not 99921-7) availablefor th is sample. The date report ed is the samplecollectio n date. Vanco Tr Dose 08/25/2023 Level, date, a nd time of Date (test code = previous d ose is not 92561-3) availablefor is sample. The date report ed is the samplecollectio n date. [facility] CenterVancom[facility] [id number] 14:20:58 Test Item Value Reference Range Interpretation Comments Vanco Trough 11.5 See_Comment Toxic Trough Le win: >20 (test code = mcg/mL [Automat ed message] 4092-3) The system [employer] generated this result tra nsmitted reference range : 5.0 - 20.0 mcg/mL. Th e reference range was not u sed to interpret this result as normal/abnormal . Vanco Tr Dose See Note Level, date, a nd time of Time (test code = previous d ose is not 61101-2) availablefor is sample. The date report ed is the samplecollectio n date. Vanco Tr Dose 08/25/2023 Level, date, a nd time of Date (test code = previous d ose is not 96865-0) availablefor is sample. The date report ed is the samplecollectio n date. [facility], Nasopharyngeal [id number] 21:40:14 Test Item Value Reference Range Interpretation Comments Adenovirus (test code = Not Detected Not Detected 42348-6) Coronavirus 229E (test Not Detected Not Detected code = 44412-9) Coronavirus HKU1 (test Not Detected Not Detected code = 05287-1) Coronavirus NL63 (test Not Detected Not Detected code = 11658-1) Coronavirus OC43 (test Not Detected Not Detected code = 77732-9) COVID19 (SARS-CoV-2) Not Detected Not Detected (test code = 84246-6) Human Metapneumovirus Not Detected Not Detected (test code = 89941-5) Human Not Detected Not Detected Rhinovirus/Enterovirus (test code = 13226-2) Influenza A (test code Not Detected Not Detected = 50708-9) Influenza A H1 (test Not Detected Not Detected code = 13473-3) Influenza A H1 2009 Not Detected Not Detected (test code = 12220-3) Influenza A H3 (test Not Detected Not Detected code = 90349-1) Influenza B (test code Not Detected Not Detected = 69542-0) Parainfluenza 1 (test Not Detected Not Detected code = 34952-4) Parainfluenza 2 (test Not Detected Not Detected code = 79682-8) Parainfluenza 3 (test Not Detected Not Detected code = 49423-7) Parainfluenza 4 (test Not Detected Not Detected code = 70060-8) Respiratory Syncytial Not Detected Not Detected Virus (test code = 82617-1) Bordetella Not Detected Not Detected Parapertussis (test code = 53238-6) Bordetella pertussis Not Detected Not Detected (test code = 21944-1) Chlamydiophila Not Detected Not Detected pneumoniae (test code = 48294-9) Mycoplasma pneumoniae Not Detected Not Detected (test code = 72058-4) LAZARO (test code = LAZARO) Has patient had a positive for COVID-19 result in the last 3 months?->No The BioFire RP2.1 is a real-time, nested multiplexed polymerase chain reaction test designed to simultaneously identify nucleic acids from 22 different viruses and bacteria associated with respiratory tract infection, including SARS-CoV-2, from a single nasopharyngeal swab (HYDROELECTRIC PLANT ELECTRICAL ENGINEER) specimen obtained from individuals suspected of respiratory [...] that may not be detected by an HYDROELECTRIC PLANT ELECTRICAL ENGINEER specimen. Internal controls are used to monitor [...] and high-complexity tests. The Microbiology Laboratory at [facility], CLIA Accreditation #[id number] and CAP Accreditation #[id number], verified the performance characteristics of this assay. [facility] at [facility] performs the assay using the Relatient System. [facility] CenterRes[facility] Multiplex PCR Panel, Nasopharyngeal [id number] 21:40:14 Test Item Value Reference Range Interpretation Comments Adenovirus (test code = Not Detected Not Detected 04136-1) Coronavirus 229E (test Not Detected Not Detected code = 31963-9) Coronavirus HKU1 (test Not Detected Not Detected code = 25739-0) Coronavirus NL63 (test Not Detected Not Detected code = 46250-9) Coronavirus OC43 (test Not Detected Not Detected code = 45130-9) COVID19 (SARS-CoV-2) Not Detected Not Detected (test code = 44703-2) Human Metapneumovirus Not Detected Not Detected (test code = 41805-8) Human Not Detected Not Detected Rhinovirus/Enterovirus (test code = 70420-4) Influenza A (test code Not Detected Not Detected = 98730-1) Influenza A H1 (test Not Detected Not Detected code = 20769-4) Influenza A H1 2009 Not Detected Not Detected (test code = 65211-0) Influenza A H3 (test Not Detected Not Detected code = 01787-2) Influenza B (test code Not Detected Not Detected = 47249-7) Parainfluenza 1 (test Not Detected Not Detected code = 22221-4) Parainfluenza 2 (test Not Detected Not Detected code = 14540-3) Parainfluenza 3 (test Not Detected Not Detected code = 71834-0) Parainfluenza 4 (test Not Detected Not Detected code = 40340-3) Respiratory Syncytial Not Detected Not Detected Virus (test code = 52230-6) Bordetella Not Detected Not Detected Parapertussis (test code = 25468-3) Bordetella pertussis Not Detected Not Detected (test code = 90767-4) Chlamydiophila Not Detected Not Detected pneumoniae (test code = 90454-7) Mycoplasma pneumoniae Not Detected Not Detected (test code = 12278-1) LAZARO (test code = LAZARO) Has patient had a positive for COVID-19 result in the last 3 months?->No The BioFire RP2.1 is a real-time, nested multiplexed polymerase chain reaction test designed to simultaneously identify nucleic acids from 22 different viruses and bacteria associated with respiratory tract infection, including SARS-CoV-2, from a single nasopharyngeal swab (HYDROELECTRIC PLANT ELECTRICAL ENGINEER) specimen obtained from individuals suspected of respiratory [...] that may not be detected by an HYDROELECTRIC PLANT ELECTRICAL ENGINEER specimen. Internal controls are used to monitor [...] and high-complexity tests. The Microbiology Laboratory at [facility], CLIA Accreditation #[id number] and CAP Accreditation #[id number], verified the performance characteristics of this assay. [facility] at [facility] performs the assay using the Relatient System. [facility] CenterUrinalysis Microscopic Exam 2023-08-24 17:03:15 Test Item Value Reference Range Interpretation Comments UA WBC (test code = 1 See_Comment Some rep orting 32268-9) parameters with in the Urinalysis test have changed due to the implementation of new instrumentation in the Main [place], anabell bardales greater sensiti vity of measurement. Urinalysis resu lts reported by the [facility] enters using existing instrumentation , as well as Urinaly sis testing perform ed manually or by backup methodology at the [facility] paula l remain relative ly unchanged. New reporting ruby eters and units will not be reported for [facility]. [Auto mated message] The sy stem which generated this result transmit mariana reference range : 0 - 2 /HPF. The refer ence range was not u sed to interpret this result as normal/abnor mal. UA RBC (test code = 4 See_Comment H [Automa mariana message] 43369-5) The system [employer] generated this result transmitted ref erence range: 0 - 2 /H PF. The reference range was not used to int erpret this result as normal/abnormal . UA Mucous (test code = NOT SEEN Not Seen-Trace 77262-1) /HPF UA Bacteria (test code OCC NOT SEEN /HPF A = 01614-5) UA Squam Epi (test OCC None-Occasional code = 55044-2) /HPF Lab Interpretation Abnormal (test code = 15225-8) [facility] Microscopic Exam 2023-08-24 17:03:15 Test Item Value Reference Range Interpretation Comments UA WBC (test code = 1 See_Comment Some rep orting 29899-1) parameters with in the Urinalysis test have changed due to the implementation of new instrumentation in the [facility], al lowing greater sensiti vity of measurement. Urinalysis resu lts reported by the [facility] C enters using existing instrumentation , as well as Urinaly sis testing perform ed manually or by backup methodology at the [facility] paula l remain relative ly unchanged. New reporting ruby eters and units will not be reported for [facility]. [Auto mated message] The sy stem which generated this result transmit mariana reference range : 0 - 2 /HPF. The refer ence range was not u sed to interpret this result as normal/abnor mal. UA RBC (test code = 4 See_Comment H [Automa mariana message] 99447-3) The system [employer] generated this result transmitted ref erence range: 0 - 2 /H PF. The reference range was not used to int erpret this result as normal/abnormal . UA Mucous (test code = NOT SEEN Not Seen-Trace 92195-4) /HPF UA Bacteria (test code OCC NOT SEEN /HPF A = 00713-9) UA Squam Epi (test OCC None-Occasional code = 77591-5) /HPF Lab Interpretation Abnormal (test code = 42786-8) [facility] CenterUrinalysis w/Microscopic if [id number] 16:59:33 Test Item Value Reference Range Interpretation Comments UA Color (test code = 48879-3) Straw Straw-Yellow UA Appear (test code = 88038-6) Clear Clear UA Glucose (test code = [...] NEG Lab Interpretation (test code = Abnormal 43176-9) [facility] CenterUrinalysis w/Microscopic if [id number] 16:59:33 Test Item Value Reference Range Interpretation Comments UA Color (test code = 84009-3) Straw Straw-Yellow UA Appear (test code = 09666-9) Clear Clear UA Glucose (test code = [...] NEG Lab Interpretation (test code = Abnormal 06157-8) [facility] CenteraPTT2023-10-14 22:20:34 Test Item Value Reference Range Interpretation Comments aPTT (test code = 25.1 See_Comment [Automate d message] The 03660-1) system which ge nerated this result transmit mariana reference range : 24.1 - 35.5 second(s). The reference range was not used to interpr et this result as demian l/abnormal. [facility] CenteraPTT2023-10-14 22:20:34 Test Item Value Reference Range Interpretation Comments aPTT (test code = 25.1 See_Comment [Automate d message] The 80420-2) system which ge nerated this result transmit mariana reference range : 24.1 - 35.5 second(s). The reference range was not used to interpr et this result as demian l/abnormal. [facility] CenterProthrombin Time with [id number] 22:20:33 Test Item Value Reference Range Interpretation Comments PT (test code = 12.8 See_Comment [Automated message] The 5902-2) system which ge nerated this result transmit mariana reference range : 11.9 - 14.5 second(s). The reference range was not used to interpr et this result as demian l/abnormal. INR (test code = 0.96 0.87-1.12 6301-6) [facility] CenterProthrombin Time with [id number] 22:20:33 Test Item Value Reference Range Interpretation Comments PT (test code = 12.8 See_Comment [Automated message] The 5902-2) system which ge nerated this result transmit mariana reference range : 11.9 - 14.5 second(s). The reference range was not used to interpr et this result as demian l/abnormal. INR (test code = 0.96 0.87-1.12 6301-6) [facility] CenterPOC Chem 8 without Hemoglobin and [id number] 17:40:15 Test Item Value Reference Range Interpretation Comments POC NA (test code = 135 See_Comment L [Automa mariana message] 2946-0) The system [employer] generated this result transmitted ref erence range: 138 - 14 6 mEq/L. The refe rence range was not u sed to interpret this result as normal/abnor mal. POC K (test code = 4.1 See_Comment Method de scription: 2598-4) The i-STAT is a n analyzer used f or in vitro quantific ation of various anal ytes in whole blood. The device uses a s yeison disposable cart ridge which contains microfabricated sensors, a calibration roberto ution, fluidics system , and a waste chamber . Each test cartridge contains chemic ally sensitive biose nsors on a [employer] ip that are config ured to perform [...] See_Comment [Automa mariana message] 2069-01) The system [employer] generated this result transmitted ref erence range: 98 - 109 mEq/L. The refe rence range was not u sed to interpret this result as normal/abnor mal. POC VTCO2 (test code 26 See_Comment [Autom ated message] = 2026-11) The system [employer] generated this result transmitted ref erence range: 24 - 29 mEq/L. The reference r gabriel was not used to interpret this result as normal/abnor mal. POC Anion Gap (test 14 mmol/L 08-29 code = 78415) POC BUN (test code = 17 mg/dL 07-05 7199-2) POC Crea (test code 0.7 mg/dL 0.6-1.3 Medicati ons, = 47296-3) especially hydroxyurea or supplements, steele ch as ascorbate, can interfere with test results causing a falsely and significantly h igher result than exp ected. If a problem is suspected with a patient's resul t, a sample [facility] e [facility]. Method [...] chemic ally sensitive biose nsors on a [employer] ip that are config ured to perform spec ific tests. The microfabricated sensors measure analyte concent ration by an electroch emical assay. POC EGFR (test code 100 See_Comment The eGFR cr is = 53304) calculated with the 2020 CKD-EPI creatinine equa [...] CK D. [Automated mess age] The system [employer] generated this result transmitted ref erence [...] Ca (test 1.21 mmol/L 1.12-1.32 code = 1994-01) POC Sample Type Venous (test code = 6690) POC Clean Dev (test Yes code = 6672) Performing Lab (test MDA Main Main Ca mpus code = 35128) [facility] Cli nical Lab, [address], [facility] [place] [address]; Caregivers Non Medical: Marianne De Leon MD; Waived Point of Care Testing - Naima salcedo MD Lab Interpretation Abnormal (test code = 23106-9) [facility] In[facility]woodPO Chem 8 without Hemoglobin and [id number] 17:40:15 Test Item Value Reference Range Interpretation Comments POC NA (test code = 135 See_Comment L [Automa mariana message] 2946-0) The system [employer] generated this result transmitted ref erence range: [...] which contains microfabricated sensors, a calibration roberto [employer]on, fluidics system , and a waste chamber . Each test cartridge contains chemic ally sensitive biose nsors on a [employer] ip that are config ured to perform [...] See_Comment [Automa mariana message] 2069-01) The system [employer] generated this result transmitted ref erence range: 98 - 109 mEq/L. The refe rence range was not u sed to interpret this result as normal/abnor mal. POC VTCO2 (test code 26 See_Comment [Autom ated message] = 2026-11) The system [employer] generated this result transmitted ref erence range: 24 - 29 mEq/L. The reference r gabriel was not used to interpret this result as normal/abnor mal. POC Anion Gap (test 14 mmol/L 10 code = 61984) POC BUN (test code = 17 mg/dL 07-05 6299-2) POC Crea (test code 0.7 mg/dL 0.6-1.3 Medicati ons, = 82816-0) especially hydroxyurea or supplements, steele ch as [...] chemic ally sensitive biose nsors on a [employer] ip that are config ured to perform spec ific tests. The microfabricated sensors measure analyte concent ration by an electroch emical assay. POC EGFR (test code 100 See_Comment The eGFR cr is = 05309) calculated with the 2020 CKD-EPI creatinine equa tion using creatinin e, patient's age, and sex for adults 18 years of age an d older. Other fa ctors, especially musc le mass, may affec t accuracy and ne ed to be considered.Acco rding to the Kidney Disease: Improv ing Global Outcomes (KDIGO) CKD Wor k Group 2012 Clin ical Practice Guidel ine, chronic kidney disease (CKD) i s defined as the abnormalities o f kidney structur e or function, prese nt for more than 3 mon ths, with implicatio ns for health. CKD frannie uld be classified by c ause, GFR category, a nd albuminuria cat egory. [...] CK D. [Automated mess age] The system [employer] generated this result transmitted ref erence range: [...] Ca (test 1.21 mmol/L 1.12-1.32 code = 1994-01) POC Sample Type Venous (test code = 6690) POC Clean Dev (test Yes code = 6672) Performing Lab (test MDA Main Main Ca mpus code = 59960) [facility] Cli nical Lab, [address], [place] [address]; Caregivers Non Medical: Marianne De Leon MD; Waived Point of Care Testing - Naima salcedo MD Lab Interpretation Abnormal (test code = 82448-3) [facility] CenterCardiac [id number] 17:29:11 Test Item Value Reference Range Interpretation Comments CK (test code = 40 U/L 26-192 2157-6) CK MB (test code = <=5.3 74912-1) Troponin T (test code 10 ng/L <=19 < 19 n g/L Suggest retest = 64651-2) at 3 to 6 hours later to rule out myocar dial infarction >= 1 9 to <=52 ng/L Possible m yocardial injury. Suggest retest at 3 hours. - a ch gabriel of < 20 ng/L, retest at 6 hours - a bui e of >= 20 ng/L, suggestiv e of myocardial infa rction > 52 ng/L Sugges tive of myocardial infa rction Critical value will be reported when c Sona is > 52 ng/L and onl y reported for the first i n a series. Hemolyz ed specimens with Hemolysis Index >100 (100 mg/dl or moderate hemoly sis) may cause interfere nces and falsely low res ults. [facility] CenterCardiac [id number] 17:29:11 Test Item Value Reference Range Interpretation Comments CK (test code = 40 U/L 26-192 2157-6) CK MB (test code = <=5.3 94690-6) Troponin T (test code 10 ng/L <=19 < 19 n g/L Suggest retest = 69169-5) at 3 to 6 hours later to rule out myocar dial infarction >= 1 9 to <=52 ng/L Possible m yocardial injury. Suggest retest at 3 hours. - a ch gabriel of < 20 ng/L, retest at 6 hours - a bui e of >= 20 ng/L, suggestiv e of myocardial inf arction > 52 ng/L Suggest ema of myocardial infa rction Critical value will be reported when c Sona is > 52 ng/L and onl y reported for the first i n a series. Hemolyz ed specimens with Hemolysis Index >100 (100 mg/dl or moderate hemoly sis) may cause interfere nces and falsely low res ults. [facility] CenterUric [id number] 18:22:13 Test Item Value Reference Range Interpretation Comments Uric Acid (test code = 3084-1) 5.2 mg/dL 2.4-5.7 [facility] CenterUric [id number] 18:22:13 Test Item Value Reference Range Interpretation Comments Uric Acid (test code = 3084-1) 5.2 mg/dL 2.4-5.7 [facility] CenterLDH2023-10-13 18:18:03 Test Item Value Reference Range Interpretation Comments LDH (test code = 317 U/L 135-214 H Results gre ater than 12991-9) 1651 U/L may no t be reliable due to matrix effect w ith extended diluti on as it exceeds the outside event sales specialist's recommended comer it. Caution should be exercised when interpreting steele ch values and done in conjunction wit h clinical contex t. Lab Interpretation (test Abnormal code = 32912-0) [facility] CenterLDH2023-10-13 18:18:03 Test Item Value Reference Range Interpretation Comments LDH (test code = 317 U/L 135-214 H Results gre ater than 23913-0) 1651 U/L may no t be reliable due to matrix effect w ith extended diluti on as it exceeds the outside event sales specialist's recommended comer it. Caution should be exercised when interpreting steele ch values and done in conjunction wit h clinical contex t. Lab Interpretation (test Abnormal code = 89904-2) [facility] CenterCA [id number] 22:18:54 Test Item Value Reference Interpretation Comments Range CA 15-3 (test code 490.0 U/mL <=25.0 H Results g reater than 2400.0 = 5170) U/mL may not be reliable due to matrix effec t with extended diluti on as it exceeds the man ufacturer's recommended comer it. Caution should be exerc ised when interpreting steele ch values and done in conjunc tion with clinical contex t.This test is measured by electrochemilum inescence immunoassay on Carol Rashmi immunoassay vincent lyzers. Results obtaine d in different metho ds are not interchangeable . Lab Interpretation Abnormal (test code = 66657-1) [facility] CenterCA 22:18:54 Test Item Value Reference Interpretation Comments Range CA 15-3 (test code 490.0 U/mL <=25.0 H Results g reater than 2400.0 = 5170) U/mL may not be reliable due to matrix effec t with extended diluti on as it exceeds the man ufacturer's recommended comer it. Caution should be exerc ised when interpreting steele ch values and done in conjunc tion with clinical contex t.This test is measured by electrochemilum inescence immunoassay on Carol Rashmi immunoassay vincent lyzers. Results obtaine d in different metho ds are not interchangeable . Lab Interpretation Abnormal (test code = 16902-8) [facility] CenterCA [id number] 22:18:54 Test Item Value Reference Interpretation Comments Range CA 15-3 (test code 490.0 U/mL <=25.0 H Results g reater than 2400.0 = 5170) U/mL may not be reliable due to matrix effec t with extended diluti on as it exceeds the man ufacturer's recommended comer it. Caution should be exerc ised when interpreting steele ch values and done in conjunc tion with clinical contex t.This test is measured by electrochemilum inescence immunoassay on Carol Rashmi immunoassay vincent lyzers. Results obtaine d in different metho ds are not interchangeable . Lab Interpretation Abnormal (test code = 23450-8) [facility] CenterCEA2023-10-02 21:59:05 Test Item Value Reference Interpretation Comments Range CEA (test code = 14.7 ng/mL <=3.8 H Reference R anges:Smoker: 0.0 9-6) - 5.5Non-Smoker : 0.0 - 3.8This test is measured by electrochemilum inescence immunoassay on Carol Rashmi immunoassay vincent lyzers. Results obtaine d in different metho ds are not interchangeable . Lab Interpretation Abnormal (test code = 04245-9) [facility] CenterCEA2023-10-02 21:59:05 Test Item Value Reference Interpretation Comments Range CEA (test code = 14.7 ng/mL <=3.8 H Reference R anges:Smoker: 0.0 9-6) - 5.5Non-Smoker : 0.0 - 3.8This test is measured by electrochemilum inescence immunoassay on Carol Rashmi immunoassay vincent lyzers. Results obtaine d in different metho ds are not interchangeable . Lab Interpretation Abnormal (test code = 24037-2) [facility] CenterCEA2023-10-02 21:59:05 Test Item Value Reference Interpretation Comments Range CEA (test code = 14.7 ng/mL <=3.8 H Reference R anges:Smoker: 0.0 9-6) - 5.5Non-Smoker : 0.0 - 3.8This test is measured by electrochemilum inescence immunoassay on Carol Rashmi immunoassay vincent lyzers. Results obtaine d in different metho ds are not interchangeable . Lab Interpretation Abnormal (test code = 10653-7) [facility] CenterGeneral Laboratory Add-On Test 2023-08-11 21:32:47 Test Item Value Reference Range Interpretation Comments Ordered (test code = 6568) Test Added Test Needed (test code = 7604) CEA [facility] CenterFractionated [id number] 19:24:35 Test Item Value Reference Range Interpretation [...] par ameters are outside rep ortable range [facility] CenterGlomerular Filtration Rate 2023-08-11 19:24:33 Test Item Value Reference Range Interpretation Comments eGFR (test code = 100 See_Comment The eGFRcr is calculated with 46813-3) the 2020 CKD-EP I creatinine equation using [...] int erpret this result as demian l/abnormal. [facility] CenterTotal [id number] 19:24:32 Test Item Value Reference Range Interpretation Comments Total Protein (test code = 2885-2) 7.0 g/dL 6.4-8.3 [facility] CenterAlkaline [id number] 19:24:31 Test Item Value Reference Range Interpretation Comments Alk Phos (test code = 6768-6) 207 U/L 35-104 H Lab Interpretation (test code = Abnormal 58147-6) [facility] CenterALT20[facility]-10-[facility] 19:24:30 Test Item Value Reference Range Interpretation Comments ALT (test code = 1742-6) 15 U/L <=33 [facility].Serum Kpgqkihmcv3600-19-85 19:24:29 Test Item Value Reference Range Interpretation Comments Creatinine (test code = 2160-0) 0.68 mg/dL 0.51-0.95 [facility] CenterBUN2023-10-02 19:24:28 Test Item Value Reference Range Interpretation Comments BUN (test code = 3094-0) 11 mg/dL 6-23 [facility] CenterCalcium Gicme5170-50-64 19:24:26 Test Item Value Reference Range Interpretation Comments Calcium Lvl (test code = 35267-0) 9.8 mg/dL 8.4-10.2 [facility] CenterAlbumin Stqeh0865-69-97 19:24:25 Test Item Value Reference Range Interpretation Comments Albumin Lvl (test code 3.7 See_Comment [Aut omated message] The = 1751-7) system which ge nerated this result tra nsmitted reference range : 3.5 - 5.2 gm/dL. The refe rence range was not used to interpret this result as normal/abnormal . [facility] CenterAspartate Aminotransferase 2023-08-11 19:24:24 Test Item Value Reference Range Interpretation Comments AST (test code = 1920-8) 28 U/L <=32 [facility] CenterElectrolyte Orejb2897-95-33 19:24:23 Test Item Value Reference Range Interpretation Comments Sodium Lvl (test code = 131 See_Comment L [Au tomated message] 5421-2) The system [employer] generated this result transmitted ref erence range: 136 - 14 5 mEq/L. The refe rence range was not u sed to interpret this result as normal/abnor mal. Potassium Lvl (test code 4.2 See_Comment [A utomated message] = 3933-3) The system [employer] generated this result transmitted ref erence range: 3.5 - 5. 1 mEq/L. The refe rence range was not u sed to interpret this result as normal/abnor mal. Chloride (test code = 93 See_Comment L [Auto mated message] 5325-0) The system [employer] generated this result transmitted ref erence range: 98 - 107 mEq/L. The refe rence range was not u sed to interpret this result as normal/abnor mal. CO2 (test code = 2027-9) 28 See_Comment [A utomated message] The system [employer] generated this result transmitted ref erence range: 22 - 29 mEq/L. The reference r gabriel was not used to interpret this result as normal/abnor mal. Anion Gap (test code = 10 See_Comment [Aut omated message] 39410-2) The system [employer] generated this result transmitted ref erence range: 4 - 14 m Eq/L. The reference r gabriel was not used to interpret this result as normal/abnor mal. Lab Interpretation (test Abnormal code = 58452-7) [facility] Cancer In[place]woodGlucose Hfsbl8030-84-08 19:24:22 Test Item Value Reference Range Interpretation [...] diabetes Lab Interpretation (test Abnormal code = 54928-6) [facility] CenterDifferential2023-10-02 18:58:07 Test Item Value Reference Range Interpretation [...] 1.0 % 0.1-1.5 IGRE % c ount 72601-7) includes Metamyelocytes, Myelocytes, and Promyelocytes. Neutrophil Abs (test code 3.05 K/uL 1.95-7.25 = 751-8) Lymphocyte Abs (test code 0.59 K/uL 1.01-3.24 L = 731-0) Monocyte Abs (test code = 0.34 K/uL 0.24-0.85 742-7) Eosinophil Abs (test code 0.06 K/uL 0.02-0.50 = 711-2) Basophil Abs (test code = 0.00 K/uL 0.02-0.09 L 704-7) IG Abs (test code = 0.04 K/uL 0.01-0.12 86991-1) Lab Interpretation (test Abnormal code = 15099-5) [facility].UVO6527-19-96 18:58:00 Test Item Value Reference Range Interpretation Comments WBC (test code = 4.1 K/uL 4.1-10.5 6690-2) RBC (test code = 789-8) 3.73 See_Comment L [Au tomated message] The system [employer] generated this result transmitted ref erence range: 3.99 - 5 .46 M/uL. The refer ence range was not u sed to interpret this result as normal/abnor mal. Hgb (test code = 718-7) 11.6 See_Comment L [Au tomated message] The system [employer] generated this result transmitted ref erence range: [...] See_Comment [Automate d message] 786-4) The system [employer] generated this result transmitted ref erence range: 31.1 - 3 5.2 gm/dL. The refe rence range was not u sed to interpret this result as normal/abnor mal. RDW-SD (test code = 47.2 fL 37.5-49.7 90511-5) RDW-CV (test code = 13.8 % 11.6-15.5 788-0) Platelet count (test 259 K/uL 160-397 code = 777-3) MPV (test code = 8.7 fL 9.1-12.6 L 73369-2) INRBC (test code = 0.0 See_Comment The INRBC (instrument 95810-4) NRBC) value ref lects the enumeration of nucleated red b lood cells contained in a 200uL sampleof whole blood analyzed by the instrument. Thi s value maydiffer from the NRBC value repo rted in a manual differential,wh ich is based on a 100 cell differential. [Automated mess age] The system [employer] generated this result transmitted ref erence range: 0.0 - 0. 1 /100 WBC. The refere nce range was not u sed to interpret this result as normal/abnor mal. Lab Interpretation Abnormal (test code = 42081-2) [facility] CenterPhosphorus Hinto3805-27-96 13:07:08 Test Item Value Reference Range Interpretation Comments Phosphorus (test code = 2777-1) 3.7 mg/dL 2.5-4.5 [facility] CenterMagnesium Iedek1193-19-48 13:07:01 Test Item Value Reference Range Interpretation Comments Magnesium (test code = 29366-4) 2.2 mg/dL 1.6-2.6 [facility] Cancer InglewoodUrinalysis with Microscopic 2023-07-26 17:31:06 Test Item Value Reference Range Interpretation Comments UA Color (test code = Straw Straw-Yellow 20536-0) UA Appear (test code = Clear Clear 56616-7) UA Glucose (test code NEG NEG mg/dL [...] = 5 See_Comment H Some rep orting 24310-2) parameters with in the Urinalysis test have changed due to the implementation of new instrumentation in the [facility] instituteing greater sensiti vity of measurement. Urinalysis resu lts reported by the [facility] enters using existing instrumentation , as well as Urinaly sis testing perform ed manually or by backup methodology at the [facility] [place] [facility] remain relative ly unchanged. New [...] = 134 See_Comment H [Automa mariana message] 05048-4) The system whic h generated this result transmitted ref erence range: 0 - 2 /H PF. The reference range was not used to int erpret this result as normal/abnormal . UA Mucous (test code = TRACE Not Seen-Trace 93933-3) /HPF UA Bacteria (test code NOT SEEN NOT SEEN /HPF = 63646-1) UA Squam Epi (test OCC None-Occasional code = 24365-0) /HPF Lab Interpretation Abnormal (test code = 38153-5) [facility] CenterTMP Interpretation Antibody Screen Pgbktrwe6815-53-28 17:25:04 Test Item Value Reference Range Interpretation Comments TMP Auto Neg At the present ABSC Interp time, patient (test code = plasma shows no ERIC LIGHT 7535) evidence of RBC MD ALLIE 147 78Dictated alloantibodies. by: RAYMUNDO KELLEY [place] [id number] Date/Time: 07.11 12:25 PM CDT Transcribed Aquilino e/Time: 07.26.2023 12:2 5 PM CDTElectronical ly Signed By: [place] [id number] on 07.26.2023 12:2 5 PM [facility] CenterAntibody Tegprg6320-39-98 16:15:02 Test Item Value Reference Range Interpretation Comments ABSC. (test code = 890-4) Negative ABSC [facility] CenterABORh2023-09-16 16:11:25 Test Item Value Reference Range Interpretation Comments ABORh. (test code = 882-1) O POS [facility] CenterClot Expiration Mpmx6837-56-26 16:11:14 Test Item Value Reference Range Interpretation Comments T & S Expiration (test code = 07/29/2023 5318) [facility] CenteraPTT2023-09-16 13:08:28 Test Item Value Reference Range Interpretation Comments aPTT (test code = 29.7 See_Comment [Automate d message] The 84123-7) system which ge nerated this result transmit mariana reference range : 24.1 - 35.5 second(s). The reference range was not used to interpr et this result as demian l/abnormal. [facility] CenterProthrombin Time with [id number] 13:08:18 Test Item Value Reference Range Interpretation Comments PT (test code = 13.5 See_Comment [Automated message] The 5902-2) system which ge nerated this result transmit mariana reference range : 11.9 - 14.5 second(s). The reference range was not used to interpr et this result as demian l/abnormal. INR (test code = 1.04 0.87-1.12 6301-6) [facility] CenterUric Jdbg8786-28-61 16:14:02 Test Item Value Reference Range Interpretation Comments Uric Acid (test code = 3084-1) 7.1 mg/dL 2.4-5.7 H Lab Interpretation (test code = Abnormal 06807-0) [facility] CenterLDH2023-09-14 16:10:20 Test Item Value Reference Range Interpretation Comments LDH (test code = 219 U/L 135-214 H Results gre ater than 70979-9) 1651 U/L may no t be reliable due to matrix effect w ith extended diluti on as it exceeds the outside event sales specialist's recommended comer it. Caution should be exercised when interpreting steele ch values and done in conjunction wit h clinical contex t. Lab Interpretation (test Abnormal code = 36873-6) [facility] CenterPathology Biopsy Interpretation 2023-07-18 19:55:39 Test Item Value Reference Range Interpretation Comments Submitted Clinical History c1qmcDGpABEeh5zqYGO (test code = 26265) mbGFuZzEwMzNcZnRuYm pcdWMxIHtccnRmMVxzc 9QfZ6SrIfWtLRkrexKd XGRlZmxhbmcxMDMzXGZ 0bmJqXHVjMVxkZWZmMH ozBw8szSYgcVdkZnDeM WJcs0buqsNOqsvgtNh1 z5rxNXUsNhV1bSZgQAs zE7zkrjZnbHDjRVHgEY n9lQ44BRToqA0icBIbC DndvmVgAlW8KDqvOJIl KeU2XZHziLCoOIXwH6v yZWQwXGdyZWVuMFxibH WwEEG3fAnkh4Y3jQWql GVldHtcZjBcZnMyMiBO o1YsLYf4nQuwE5AoLIH aXnG7bWScOZCvNWmfUW LlBQPudrH5qF14INsrm mS0bRKgj2Xus12ay258 vU1tcJGaKFV2CXYhJTX nvDTkJDTvUEM2GSDfpE WvP7rgIVXsAA5ocagoA XflYZgoVCCsaXM9ZICk hBKiM6DgSKDxKXfpGOZ rtgb7FpBoUc4zaZGouO taORalk8zmq7uyhEQfG yt9YSCvReMoWjxpZUme x2Bed6dpQQEmpr3oVAR 5uBNrmIgvs1T7sPGgZC IwuICozfQuEHYpSgE9U SfjZM8evr35JLWcLHC6 jp2maPWiyBypskKceAJ wNYygE9AaMVJie913YU SoD0JfUADce1V7xmXkK gAwRQYxsUT7yiS4RHWe WOp2hXQvjyN7coJkiFX mP5lixX7nVCKsOH2ecs sun2leBAktHFmzTFRas LE6jfC8WUOjgFSsI3Nn yF3yCSTjNZiaYPFrdfs 5QfPgZs2dpGMmxWojZQ xzYmtwYWdlXHBnbmNvb nRccGduZGVjXHBsYWlu XHBsYWluXGYwXGZzMjR xoBroqMfsoL6iKnVcTv HwOQnhAJ4sTRGoE6igd ITpNHZwJCPmI2uiCgTx fC9oxLonWSzqkcBiZZe uZmlsdHJhdGluZyBkdW W1FGZuYUEea5Z3iJAdN VUuixVelx1cGJVfTmKo vaAjc7BhPJ6GWhV7FeF bBWvrLgDFiHxtpB1nK1 R1VS80QVUyFKIcBXeyH GYxXGZzMjJcbGFuZzEw MzNcaGljaFxmMVxkYmN rRYScJYhbP9nsMuPiHj VcXudfTWW6xB== Diagnosis (test code = 34) h5cocABkCBYrpFFoREY gK6cnkgXuGCNlmZInQ8 XwrcwyAZwfPY1nGD6at GxhdHRveWVuXGRlZmYw q0qvd506lZDoa1kqDEP AxdsanEl2kZzoE52an0 D5RlziV0qzVTMgWEbhB IBaOShhdVNlQUn0DHBb cGVydzEyMjQwXHBhcGV xsQH1VZMvHE3uzwvkPW lrJUbrLZLstmP9YCNdi BGhV5MvRTWtIA2pgwwg VXK3HRbwYORxQKD0OdA qVFSks2Ybfvc1SqTfiV FyZFxwbGFpblxmczIwX RRhPHSYLzUDKNR0OUer aWFjIGJvbmUgbGVzaW9 lHPIlz1GnWFUlf6QuiC pccGFyXGxpNzIwXGxpb jcyMFxjZjAgTUVUQVNU TXOQTdIWVpCYP6CuA6F TX8sVZ00XHOmVBr6SZx vNFlWHH01SYSwTUOBsU 09NTUVOVClccGFyXGxp GUkqrE0lZFLbhcWRGS5 vRkhIXHBhcn0= Comment (test code = 9835) o2oytJYpSGOojKPbGIR lV1elxsCmJITjcQFeL6 CfnnyzIXpdAM0kBF4ev GxhdHRveWVuXGRlZmYw c5baj011rFBsr9rgKPG FnvbxrRn8fFvfN57ed5 N5RcnwN48xmSBhLPJ9Q TIyNDBccGFwZXJoMTU4 PPJecDIfK3rqWSThLA3 hcmdyMTgwMFxtYXJndD I0DRWfgFKwV1FiZBFoQ GvtWXRfruw4BdFqXc3r dGVyeTcyMFxwYXJkXHB sYWluXGZzMjAgVmVyeS HkHNrcdOJhp3WfJ7Uui IOhVGFrVVNnWZ7vnT5s dGhlIGZpYnJvdGljIGJ qfyXtrAPnsd87RcFPpK 84gj7sfLF2e0MxVP3dB 1MuZHV7sBDfLYFuq5zn hhH7vYK4NKHzMSC2tS4 vciBjZWxscyBhcmUgcG 8oxBVrgjSdCg3oDDSqk i7vrSCfw8AhMBUpsjSb g4XodGDdlJVwacCoE4A UQTMuXHBhcn0= Gross Description (test y1sgmVPxDBNadQNSQBJ code = [id number]) kUKRnPX6ndZgjkDo9yQ wdIYIweeF5cUKnYDqdc 9owYLM5d5vyacQKSrus VUFjGS5rEDndXFMiUE2 nZmUwXGRlZmYxXHBhcG VydzEyMjQwXHBhcGVya ZH2ELVuTI0nuvgsKEbj CRjwKZInsyQ9VEEslDA cP5PhONRjRB4tckyhMD M6ZEEDBbhbYm9imFKus HtcZjFcZmNoYXJzZXQw TPXjbYmuVXHgUDy2hQ6 LPmuzJ25my9J0Vev9GD KfHNLfG9OnGA9yEEDhe VBsW66JInqzCAS3VAXU EvhsKfdqpVswi3ZpdPN cXHNnIFxcaWQgNTEwMD AgXFxkYiBPVlIgIiAxM mthHBP0KuX3GZh3ARVC LFTzBaY5JmK7TML1XLp 8LKWtAV3bZPctpAClXB jmBijcDBsaE130OEqdT DHjD5LdD0OxADjfVaKw XGlkIDUxMDAyIFxcZGI qA2AXJMVtDWN5NFL5TM ZpIPm5YMtfH2KWTBOrT JI5ICQjGUN7XfV5IYp3 CFAHFn8oUPMbZeW3ZEt lGEH0WNltUUCzUPQwTw BcXHNzIDMgXFxmbCBcX N6pvCxiMJShQW6KFEGl YWluXGJcZnMyMCBBOlx wYXIgDQpccGFyZCANCl xwbGFpblxiXGZzMjBcc ZqgsO2vfXLnK1ouGpHx MlxlcGljTmVzdERvYzE gDQpcbHRycGFyXGxpbj BccmluMFxzYTMwXGVwa PPUs7OvGWCLMplwSFRw MVxmczIwIEJvbmUsIGx zAkZspRgaQLZjEs9sJF SzWLByb87fJsgodGK1U lxiMFxjZjAgIDQgdGFu VXUxo2sgKQElwgEiJ71 lDHIzkqBpW3xlQnFowf 9tIDAuNSBjbSAtIDEuM lSbqBOtwhGzOO2dmZmp IG2tUNQwOKFyUWEcLtM jbSBpbiBkaWFtZXRlci mfMA66fPBdaTdnk0Saj Zo3sPQjGLtbTNZmBSCs ciBkZWNhbGNpZmljYXR mi11mHADgbPHieUYjsI bzKjvunCN7XObjWhcam P9hyZBPXYTBLawYOpdg wmXjCK9FLJ4ECmSLHT6 2GwSnEWG9GQmQI1VQkE D3Iob8YOq5dArdFslsz pNfpFMiGiQZtO0FJExs SjftdRX9ZCvcPsmgjN8 zdCBIWVBFUkxJTksgbm PcQT8QQA1VTA1ChLLpV WN7rTW4TMDEIokuxQN3 gFX1kM07FDIsFMUobST xSMipV195VDJwZTglPQ t4xqUyPIJpGqFdDUnpK RHmS33vt4LCw7Rkv9nj hJnrt8ZkuFJeWA94BRT qpETnJXB7YC2wtWvgXV IgDQpccGFyZCANClxmc cBgKN6QqO== Biomarker Block(s) (test p1vwyBDuEJQxbRJhTID code = 9841) yD9mvgxCfIRSgdVBfO4 TcqvluPLgoKP2oSD3sa GxhdHRveWVuXGRlZmYw w8qvj871pARof3cyBDF XciiiaHd5zJllR01bu5 P4KrziU84icJAzHXU2N TIyNDBccGFwZXJoMTU4 LLSurGBdJ6myZDEvRF2 hcmdyMTgwMFxtYXJndD K6JTBttYQzA3ByIVMiM ZciXBQcqbw1UxRfHq0l dGVyeTcyMFxwYXJkXHB sYWluXGZzMjAgQTEgKH Ceu6DhZro4BAjln4PoF mljaWVudClccGFyfQ== Disclaimer (test code = m4xdkWAwBEMepRTiNwE 9898) qHDZtECRzj9vtUPDrlK FuZzEwMzNcZnRuYmpcd AThWGUgNmUsx2gor174 wNHrx8ffTWLiKoA5oBQ gKHCmrIDkU156EEUoBY sdq0bhu8UuLSSquLKhw 6E6VGCCewlptZj2cJdb W53pu5L6OxqmM4lkBZQ oZLIxO5GyTQ4dVUZtWo i8NWO8WCV7NSXfNHRdC 7EuIS6jHVXlxYEgHCr2 g0qerBpkHKTgBKL9j0h vJExejfRqMA3wiw9imB r2h8rplsIkTFAfAHMyh NGBCXYhL8VitMydQg0x gDj8yBjzZfgjJMK0Fbw 5XY6oax62jle3xTnpHW HzcboxIoZ6QHncEIJww marJTg7AZiuGIJfeRX2 OOEuvFXpV1QqBEYqUL1 etif2EXE6VUbsTSTmOa J1HVIujWUuRPXsiXrvK Opvz944RRJ9XzSoDU9i E6Tco7W9qK2xvGZoJFX uxNPxMvMbRZGpfy5dlH ZwBBefq9HjEVC8quQ9i HRioJZoWDDcZV64Ktcw k1EvMennZCV1DQWxqcF ce2Cxo4uwXqPkeiKdA7 prU6RkXZRhIWDdPVUbI hOreuPvv3Jis5TcyEJr vUg4o5ulARMkUBIudHb ja3aeMYG6ZCTyQ4O6pY Peb1wtBGrvUECpnHC7j tO0SOHaaXNtS1CxwM9s PGJkMY4bgdw8l0wlKKC 3KMspEYWjSrU4pfY8AZ BcaGVhZGVyeTcyMFxmb 368FXZ1UsBnUNAln9Jj E8UxkAqrL09wtDkoI15 fAQNeoFnhtZ7jjIdwaC 5cZjBcZnMyNFxxbFxwb JMlzqwpZLmpwhQ5AIcd cwmmLUYxJUgoR1ftHuT mKZLugUunNDkhj9VwOP OsSIKcNwvgicX4YKLMi 29gLBTdu0NhTYPliU0f wHWsXNwlomBtyWZ4WSj hdmUgYmVlbiBkZXZlbG 7cEFYlEL5jKLEkctCab v8ixuYqPEKrZIBvW2La cmlzdGljcyBkZXRlcm1 ysbXaVBQ6TYEAQZ6FMS DqDPEgf44mXXSyxWuxg U2owISyknXfXTMwp3Qc wH3puCASZOEtU4vxEI7 mNIstr0NcsEQmkEXozN S9FGVbx3XqRzEuroSde QZtlTZoR2CtmQpsQ3uu USXkPMCgltZvoLVml2X fOIOsiSG0xVZfLW8DNd EQb44eJQIkROPEtzWhE TSwkQqqeGX9lcC4fZ1x LiBJZiBhcHBsaWNhYmx yEZBua208oj7gymB7XU ZvQHCtrkddm1EuVPAyU CShsZ94RRFnIFLbll9e gzndxIVwtcXnQ5Tfxzw 1hH6wTXHfSYfjNUOsKG ZzMjJcbGFuZzEwMzNca GljaFxmMVxkYmNoXGYx WHxxS0mkEsTyIuEwUnl wYXJ9 [facility] [place]woodPathology Biopsy Interpretation 2023-07-18 19:55:39 Test Item Value Reference Range Interpretation Comments Submitted Clinical History c3slhIJuVOGnn8qtJEW (test code = 89035) mbGFuZzEwMzNcZnRuYm pcdWMxIHtccnRmMVxzc 1NuC8YqTzGqUSisszQc XGRlZmxhbmcxMDMzXGZ 0bmJqXHVjMVxkZWZmMH yoKz4faYZfoYydQvJeZ HHxn1eokzLGiqhlhZu7 w4pfTDYdEqG9cRBySEf dD5jqfmXeuBWpMCApRO t6eG25XHObgH7jsQSnC AesdsZzUeS0MHejDIKh AaK7YEEhdPHaTEXaA3t yZWQwXGdyZWVuMFxibH DyHAX0sAoxz2W2oQYle GVldHtcZjBcZnMyMiBO d4BcEEj9eAcnX2JwYJL zJfS4zHYkFOJiXNwrTU MqKMUcktG7oX39UZubk gX3iYGiw2Iao03nl636 hN5txWXvQII1AVToDYM deCPpFWTzAXQ8MZRwbJ YcU7kqVIDzMH8ammpiD YkrBEazRFOskWT8KELb bQAzB5TvHCOvSMokRYX cqiu4DhYjZq4rkPJkyE bnGNwvz0ugt5accMVwD fy2SEVgLoQwVqwrHQmv n3Wcl9fxLHQcyg7hBXA 6uDNakTcet8Z9mNOaEX YyqVQexqOhQBMoBjQ8X OkrQM3gpc43BCOsIHZ6 ud4hhZXzyLviziHsbWR uSXzdI9DrIJSwb685AH MvC5ZoYNTpb2R3pbKwA rIwZQVjbAC6vsN6SWDk MYw0hVAqreL2npVswSM bL5zjdD7iLHZpRL0mvi dmw6qjPOytEUnyGHFvn XN5smN7BQObgIAjH9Bu iN9fGCTpNNmtIAAzjrb 5ZlXsKz8ybYRwyKzlCR xzYmtwYWdlXHBnbmNvb nRccGduZGVjXHBsYWlu XHBsYWluXGYwXGZzMjR qfAryvRndhA5iTbVpXi ZfXHpsWE9nUMEkB4xql OEaBAUcSQAmU5bnBjCw kQ1gfNpuWZrrwyHnTVj uZmlsdHJhdGluZyBkdW Y6OHAsIMRut1T3rDXpR SPxqfZrre5vLVMwOcHe ytYvt3MfPW3IXdA8OsS bMQhtXrMNaRlooJ8dK9 Q5CV99JGNqWPDzEUujE GYxXGZzMjJcbGFuZzEw MzNcaGljaFxmMVxkYmN dPOUePFchO7ptRdXvYo JhHcxsRUE5rR== Diagnosis (test code = 34) d2ilgLXxYAWenBMaZSG mP4cbjmAdQRWjeILpP0 NoxjkbICicNP7mGU0vq GxhdHRveWVuXGRlZmYw g7ayl072kKKgh8fcILY PofvvrFq7sZyyV73bk0 E3DpcrO1krJWQfAXklO AVdDDxxyJPbJEa5RSZy cGVydzEyMjQwXHBhcGV fhKM9LPKiZX9xeaorKL rqOHdpMWMbgqR3NKQjb UTpJ2FpSQSyXR8xijfs NQV8OPtjUFQdYRP0MjW zHTPew2Zfmrd0BbPorQ FyZFxwbGFpblxmczIwX LCmPFGCUmZYYDR6UAec aWFjIGJvbmUgbGVzaW9 zSPSfo2HpUTXep4SxyZ pccGFyXGxpNzIwXGxpb jcyMFxjZjAgTUVUQVNU PPJEOzGIRhCAX5EeS2I AC8zGG74XZUjNZt6FIl pKAlYAM81BRLlSQYJgL 09NTUVOVClccGFyXGxp VRxumI3cHMEcqjCXZB7 vRkhIXHBhcn0= Comment (test code = 9835) z7xqjONvNTAqcALyEPH aV1bhewUvYMNucUKbR3 SechrvCPbiPP9hTD8at GxhdHRveWVuXGRlZmYw r6hqf461nXQck8kqIJE BhjsdaQw1dEgnV93rm0 Q5NzaoL11ayLByAIX9F TIyNDBccGFwZXJoMTU4 GIBtbHIpN6ejOKEkBT2 hcmdyMTgwMFxtYXJndD W2MHAtxEMmF7NxCVAcF DgaLWIaucb6LcNuHx1v dGVyeTcyMFxwYXJkXHB sYWluXGZzMjAgVmVyeS YiATuajGCuj8HaS7Iit DEjMKMrHLFmWS4oeM5b dGhlIGZpYnJvdGljIGJ kkwSxhWBlho43ZsGMcO 15ef4qqVD2r3LaCF6uX 2NbSEZ5pWWtAQMxs6ql ebV2tOS2HNPqHTA5nG4 vciBjZWxscyBhcmUgcG 4sgJVkysJeIv9hJWFvz r9zhDGes8PzZUKzbaIt i7YyrKZtsCBxdgSbV7K UQTMuXHBhcn0= Gross Description (test r3rtaLVsHVEuvIEXBRO code = [id number]) zJZRiGD4fyIlewUm1rW luHTOpeiN6sIRwCZusx 1khEPD9m7seitUMNxcu GUKvWZ1cCLamJCPjUZ6 nZmUwXGRlZmYxXHBhcG VydzEyMjQwXHBhcGVya IR4CIXtOR0tmryuWYpx TZtvDADcjaM0RPRlwIY bX2IvDLXsUB7sxyjgWR O9SEBLKhziYf2daRUlw HtcZjFcZmNoYXJzZXQw ARMzaWsvBIGoUQn9uV6 TTnuxN16xv4T6Spz8HW FeUNHwR5ZhVV1gOCDzz PXzE16TIrhmXBB6DVOC TcnyFkhsqHmpw1BcyOX cXHNnIFxcaWQgNTEwMD AgXFxkYiBPVlIgIiAxM tkiMWG7EqX0KNk3OXUK FZPbVjY9VqT0LQA0YJb 5KIZeIL0oGXzpxDXkMX keVajyLAgsH438FHswI QZkP9UpU8BuIJpvBxDc XGlkIDUxMDAyIFxcZGI dU2PMOUXpVSD6PHR7JV TbCSt7PQurB3UZWOSdB XG5IECwHHR7DyS8VTu4 MIGOJd9xYAPbZrH9CFm vYIK1TNraVQWiVFPfWx BcXHNzIDMgXFxmbCBcX S5cuTthCOOlWP3HSVEn YWluXGJcZnMyMCBBOlx wYXIgDQpccGFyZCANCl xwbGFpblxiXGZzMjBcc FxbjO9haETfV5mrMwPa MlxlcGljTmVzdERvYzE gDQpcbHRycGFyXGxpbj BccmluMFxzYTMwXGVwa SMDl3XcWPRUYvgxTGWa MVxmczIwIEJvbmUsIGx fBcXxkKhgMSZfBw2pQP TvWTWbu87tVyolfUF1Y lxiMFxjZjAgIDQgdGFu KLXbq7mgJOCwrqGwY30 hTAUsecMsZ0agIdCdee 9tIDAuNSBjbSAtIDEuM iRptRGqayCgTG0nbZnq FR6tPDRhOTLwWNGmIdG jbSBpbiBkaWFtZXRlci muRK54dDAxqSkho7Fqe Tq7jMUnMLgyPEUhSWZk ciBkZWNhbGNpZmljYXR so80hCQXuyGScqMEulK uvSktbyGZ6DPpnTcmmc F2egWNZSXXMIskBBbvb dpRxCE9VKZ0WKdLKQT1 7FjCiSSI0RIiWL7XZqE P9Cxa5QMw2qLbbWpwer dLvbSPuVjGMrY8DYXug DdcbdHO4IIllWlfwvW9 zdCBIWVBFUkxJTksgbm ExTL1OOR1EYV9EaEXyU NY8cML5HGDOXatawDE0 bQW9aN70RBVhVYAkoOZ gWKayC994GZEuOZerBC g1erDfWANvGlRiCQnmM KXbE42az2OTt0Qte3hn wRqsd0IkhOOeBF24IOA qjEDiELE3LV8upMrjXF IgDQpccGFyZCANClxmc oMjZZ5NlS== [employer](s) (test u3yjeGUaMYLooZUsVGW code = 9841) uS5olzcYpKZBpoEPuN9 AmbjrfZIrbOW0nUZ9dy GxhdHRveWVuXGRlZmYw f8qmv213eJUvx7haSZC VjyxjjZk9eCvbI50qu2 Y2EnntF96lkBMvBKO8D TIyNDBccGFwZXJoMTU4 KNFxnAYuW8djMXShZH3 hcmdyMTgwMFxtYXJndD W1UEKzoSCmX9HxNJDrW KaePGYipcn1VrWmHt5n dGVyeTcyMFxwYXJkXHB sYWluXGZzMjAgQTEgKH Umr0BsHmy7SFdkk4DhH mljaWVudClccGFyfQ== Disclaimer (test code = m7hqjBDlSLOmbSTdZtD 9844) fAXPmRXEhs8cjKDZyqV FuZzEwMzNcZnRuYmpcd YZdWCRfVpUtb5pdp854 nDQrz3kzHKJjDcQ4lWR dCBToxHNdV853UOXxQV qko5mnc4RxUHAkjMPkh 8R0ETSUlamteUt5kYsq J17uu7Q9PdprX7zbXTR zNSMqP3LeVG3aPXSfDb l3APU9FZA4VAGhLECjN 3VaSZ2jJWZaxTEmDTt6 l4nrmYmyJOFqAPG1p6q yXVtkbtEkVV6jwd8qfF f0c1mqzxCoNFGtQPWxs ZGGHLMzY1YfmUeyXm2l uIj0mTbqZbqxAFE4Omp 2YK5vlm80wju5oFkvKD GiqbygVaJ8KMotYTEab mhvKSl6LJzsRUUqaGX2 LPCkdWFvO9RaJPTlNE7 jghd1PQF7EUezEHHyRb O4YTRcdACiYCQbtAmyS Kpdv125KAD8UnZlTZ3i N8Rui8C8rP8xzTSbFNY jdSHoIkOcEKPxzj3mcO TzRQnnt4QiPXQ9onB7a AUluYGkSFVxEE64Yipc r8PlFlbbXNV4HPFgbnI lw2Fvd1oyWtXzstDfT7 zvD9HbXIQySAEyLPNvC kErfuJoh3Szr4VvaLGg aAm7x4dpZHYkLNQunEn in6oyMCV8AJWyK7Z6nZ Cog9ptBOfsNBUjkLR9v yD0UCMgsMIkR2NmnZ0u GJVoBC6sebw9j8thJLU 0HOagPVLfDwG5cgG1FO BcaGVhZGVyeTcyMFxmb 585UHV3UmUiXNYre9Sh N7KbeLmkD54qcIrxK09 yEAGatTzkpV9ooNnhsM 5cZjBcZnMyNFxxbFxwb YRndyjfXGwjoyT5IXks fgdxKYRqGGdgW7dgFdQ dGAMdhTmsLQvkv8VsLW QaEHYbBntrkdZ3CFTWm 52eYETmn5KtXSIxqH1g nSOtDOkxojKhzHM5DNs hdmUgYmVlbiBkZXZlbG 3xJLLuAI6bFWVujhOer j6hqqBwODIeGRUtZ7Xm cmlzdGljcyBkZXRlcm1 dryMcFOH5XCCAIA1ZVD JtGTQzi16pBZJkwUwqr Y8vyVWrahChQVUrh2Gv tU8izLVIUDObW3lyFC3 sDGpch9XtvWIsrDSzjO K5JQDxh2XfZrSnhmNer ZWakVDvH5IjhWfoL5as IXZjNHKqafHmcYDbw4H oSIBcaOZ8mMJrWO9NWk FHw03wWCIjHBRZmlFpV APhkSxxxBC7swO3gN7k LiBJZiBhcHBsaWNhYmx vCHNyl473jl5bvaP3JD GmOHBfqofvn9KpGUHpU GUznH16VEWtUFXlue5f kzxjvMImbxFvN1Yfhbo 6eN9nIEJkAHzbWAIeVA ZzMjJcbGFuZzEwMzNca GljaFxmMVxkYmNoXGYx SZdlS8klKbVxWbQmJjw wYXJ9 [facility] Bi[facility] Interpretation 2023-07-18 19:55:39 Test Item Value Reference Range Interpretation Comments Submitted Clinical History h2hpoYCpWOHbw2onSQP (test code = 97819) mbGFuZzEwMzNcZnRuYm pcdWMxIHtccnRmMVxzc 5PhU9YbVdYfWSxylcAz XGRlZmxhbmcxMDMzXGZ 0bmJqXHVjMVxkZWZmMH geIn8miWSwbLqfEgJqB OEfk0sbudXMetveqPf4 k3qoUFBiKbY7dQOhINe pR9abykHkwSAdEHUdZO q6aV51EMPtnH2zfOGmN IlyjoObEkY4LXnwPQZd MaV5EKIdqOGaDPKvZ4m yZWQwXGdyZWVuMFxibH KzDVO7pFgxo9S9pLBqm GVldHtcZjBcZnMyMiBO d3CxLJn4mCrsD8JdQRC aQuL7yRYrIPHaTOuuQU IrDQHbiuL6yR17RUmgq oZ9hXRrp8Gcj20xf164 bK0tpNAmFEL5CEOvSZT djQEdIGJcJZN8DJXpiR KoU3itWQZuFS9vozdfJ DypMQinTEPnuUQ3OBPk hCNfZ9QhIZWwKUszSYZ butj8LmZmIp4uiSHolJ mbHUtbq7vpi5pniWBwE mz3IECpHoOuTugiMQbj l2Pss4ssHCEukl6zZGO 2cMCjlIgvr4U6zEOqVY SnkUDqduKaWHKkDeH1D XpeVA1sfi18BPCwKZO6 fx9ijUDkrLfmpzPvbEC pGMtsA0XzJUGqx358JZ IyK5DdYARzs7Q5jcTvJ iXeJBNixWX3wwA2GQTs AWl8vJEgvwN5krCnuUC lY4lkaE6oBFAfXG4lzb xsv5wzWHusUEiyVQZcb FA8ysR7KBPuqQVwM7Tb pT6jPAMzXFcrERBgrzh 4DjVjLg8xzUZveTpdIO xzYmtwYWdlXHBnbmNvb nRccGduZGVjXHBsYWlu XHBsYWluXGYwXGZzMjR upXswoIyunP6zBzLeUh RqFVdrGJ7dWCZlZ5wzz WYqZUVgMQLaS7lsCqAu iU5egMmeWJagwaRvNXg uZmlsdHJhdGluZyBkdW X5GRUmATFre1T3kTNtN FTmyqImgu6yQVWaKfJw zfVxb8ByYS2OVmQ1DoI zFUhkDuYKnWbjmD7tE0 N2ZV03DPVmNTTxONfuH GYxXGZzMjJcbGFuZzEw MzNcaGljaFxmMVxkYmN aMXNpFOzcD3zeOcNeVw EcLjxzNLV3oS== Diagnosis (test code = 34) e6sikAIlMAJzvSWqTFS dJ0svxgFeDTYnaSEvH0 WsjmthYQzeZU3rZS3iy GxhdHRveWVuXGRlZmYw q4ocn457uAGmn7fmBZE EdqlqhLg1hHjwF29bn2 W0WouoP2coXXIpPNmsN QJfMKgmwYVfIIm3MTBx cGVydzEyMjQwXHBhcGV fdXA7FAGeIZ0pupufBW lgNKntRDYbjyO4TUZsu NBwF1WcIJRhTA8rjoyx LCF3BHlbZFFdLUL6VkK oXUKlu3Vizxf0FgDetQ FyZFxwbGFpblxmczIwX EOhJJNZHaNQAKS7UWcz aWFjIGJvbmUgbGVzaW9 rXMMec1ZwOFSzg9GkcK pccGFyXGxpNzIwXGxpb jcyMFxjZjAgTUVUQVNU MACHBlRWBoCAS5UoM2E SS5fKB90YOEzXJz0SCn zHCfLRB82UFVmFCZAnD 09NTUVOVClccGFyXGxp LDawlZ2nSXCszaRDOD0 vRkhIXHBhcn0= Comment (test code = 9835) v5mfsRTdRWUjxFKzFFN gF2tlqzXeUYCrwATiM8 PpfyjlTWvbTN6rGH9ar GxhdHRveWVuXGRlZmYw q2pbc292uGTwx4fuZHD ZiawyeUw7gKflV44qz2 W4EaaoT37niRXdGWL9K TIyNDBccGFwZXJoMTU4 RSEgmAGqX1ajRKBiKF5 hcmdyMTgwMFxtYXJndD O2GRYoaJDgM7ZjQCIfS KocJPTsikg0JkJcYv5v dGVyeTcyMFxwYXJkXHB sYWluXGZzMjAgVmVyeS AfKUxzbOCca9ImQ8Ayw GWfSOZiOIDeNT8awQ5o dGhlIGZpYnJvdGljIGJ vofOkiYTusq74ZzNBwT 19lb3qcHM7n0IwZL7xU 1PnWDE4zZOdCYZfo0cp rvT9vRJ9OLMcHBT0zP0 vciBjZWxscyBhcmUgcG 6utFQjrwPsQi4wMKAom f2mjNLhn8EcVUIwjsTr x9KhjXYooNCepyFwZ7Q UQTMuXHBhcn0= Gross Description (test n0apvYKbKENmqKERGZU code = [id number]) hCZNxXC6gkSycbAv1jL slXKFikxE6dALcWErpm 2xlPZK6m5sdxcXCHfot GVNnBO7kHVumSWEvKG7 nZmUwXGRlZmYxXHBhcG VydzEyMjQwXHBhcGVya BC2RQNwBB1vtovjBVng ZIhsJRRypyK3IGNodCH sB3JiOJWiYY1aqczcWV T0JEGVGauoEt9yqGExi HtcZjFcZmNoYXJzZXQw VQZggLkeMMSaEMz9mH0 HIcvcC10vb1B4Klz0DI YiZISzW7ViAR1dXUCvu HHoI34SJgxwMHP0CLXU LkypBubkcZrmr0QpiIF cXHNnIFxcaWQgNTEwMD AgXFxkYiBPVlIgIiAxM phaMRV8LbI5DZi8SXFN XWFfNpF1WfL1BTN9YRr 2YJKqQS9gCTahwATiCP iaIwxdMZgjH375FXulW MBcT0OrQ3AdMIlfDdDj XGlkIDUxMDAyIFxcZGI pN4BBFAZgVFR3LYH6CL NeYJt6LMkmR5KYHOMvW RM6AWDbTQF4LcM7DMt5 JZBOUt5ySZFaPuJ1GKk iTBW6OWaeFRZbSSIjZu BcXHNzIDMgXFxmbCBcX C7juZzyWGYwVD1JFZBj YWluXGJcZnMyMCBBOlx wYXIgDQpccGFyZCANCl xwbGFpblxiXGZzMjBcc HdqcC4pePUpB9wbIlLu MlxlcGljTmVzdERvYzE gDQpcbHRycGFyXGxpbj BccmluMFxzYTMwXGVwa VVIi4IeBCXQDvzjVKMk MVxmczIwIEJvbmUsIGx pZlZqwHttOENxQw5vBJ UuZALrm58xMdnijNX4Q lxiMFxjZjAgIDQgdGFu LBRlh6qzGGYpvsUxX45 cDHJnbaDlG3opOhHqyv 9tIDAuNSBjbSAtIDEuM pTbzWSthmHgMY2gsSbr OX6mRDNvWYXqSPCtZbE jbSBpbiBkaWFtZXRlci cqXS74hTDkjDtij0Tbt Vk3qMLqDYraIOGjRBCw ciBkZWNhbGNpZmljYXR dy28mRDLjgIRsgCLwkU zkZridmGW0VWqsRziiu Q5agCYLWGHPFftDJuwu onTsGL3YHG1RNpMCWX4 2EmQzNNM8BOvGX7EOnM K0Rvp8IIx3kDcoUrtei sQwdNAqHmRObZ7APBlg QdxcaQV7TGpqIumwaG4 zdCBIWVBFUkxJTksgbm OmNI3VXG0LLR8MlUXbE NI8vDP7LNPAXbhrsWP4 rCY2sE91VXXiXMLleOW nGAjeJ225WSMqDBoqLZ k0efEpAVPmAiZoFBtnH UWdM75mh1HVe1Yzl8af qYbtc7PulZKqGP09DBB tbERaMNA7LS8kzAqmFH IgDQpccGFyZCANClxmc mGtDA8ZqS== Biomarker Block(s) (test w9fraZUxYYCjaMEjKGJ code = 9841) tO5byrjDbQTAqxHRxU8 TommqwMQauDB4yJO9vn GxhdHRveWVuXGRlZmYw a9nyi072qYMmo4swVSO JqtrktGx0iLhuM36wu0 T8BkrxO50ycFAbVSX1D TIyNDBccGFwZXJoMTU4 XNDjiWDyX1tvINScTX3 hcmdyMTgwMFxtYXJndD S1QTFgiGGsI9JpVDSeO AmsDTIjmuo1VfGbVb9t dGVyeTcyMFxwYXJkXHB sYWluXGZzMjAgQTEgKH Mew0QkLol3WEwrl3IkK mljaWVudClccGFyfQ== Disclaimer (test code = t5sppNRdWTPufBYvItR 9844) fGWVfLKCpu2qzXNSeoL FuZzEwMzNcZnRuYmpcd UBiAFVqNgLnu9mjn138 dGTwn5ybSDPyZiH8rKC qXNOalMFbL575QRVfOV ost5dyj2VkYTKbuASfp 3P8VPXLuyimeKd6mEnj O53sy8Q3BndlG0vjWQS oJDGkK4NrQX1xUVWsMr v5CLB8ZPO4YDQeQYBdK 2BiFZ2oWHWwsHYaKYb1 o1oebVavBXSdOIH6p0j fSKtspqSdCF1gbi1wbL r6r6yxxwQqMGFcTOEtm EWUAPPzM8JzrYclSi7e bUz7uMctUfzsRSN5Zsf 0CE8cqn18ybx9eDgoKM SbgwscQvG4WIrfXPUha dhmDXh3SJrxFIEnvOB8 SJEcxWGtY7HlVLUsXE5 bvpu3YHC4LKstYUCeUs Q5XCYwiBGrGVXkoUyaV Knmx367GLC1TvWwEV2d Y2Odr7I2gV0dqHChANT skHWtEuGjFQDpns6pyF SaGYfjl2KjGWD8bkY3y ZKtlGMmALKxKL46Fnqd c9BnEebnKCN3WMCnedL zi0Dax3orAgEhknGfA9 iuE0EaHWIwSAQgQPEjU pLdirYfn3Bcx0VfgRHf wLx6k3pgGYMiNAAmbQd bz2mfJPA2URGzD9G0nM Uly6izVTdtTYEjvVV5v bF6WBWaqJTuI8EogH8z EVLuPV8qjxw5j1ofYTM 3DLizGLOjFxJ9zeE2HR BcaGVhZGVyeTcyMFxmb 368MGP8HpFzWWLaf0Jw Y9MxyDbvR81edDdnB55 iFGKpuCiveV0crHbbcQ 5cZjBcZnMyNFxxbFxwb FXevwlcRFgsshH1FBuo mdimCTCgVUsmU5vrYyU lGCDyjOyeQBoki7NiJC FzVIDiNnumxeT0WAHMg 59aDFDhj7OoJIAjuE8i vFCfZNjyhbRnrMA0ZEx hdmUgYmVlbiBkZXZlbG 3kEWZcJC6dXMXihlHua q6vhxStAYFaAJDqZ3Cz cmlzdGljcyBkZXRlcm1 wryAqCNT9MJUBVS5PYG CaZBUdf10uFXWxsPlqj J1eaHUnpiGoMNAvk8Zr lS5xtAWFMYOaR7czNE5 xYNlfy9PksYTbgXPrfQ C8YRIxs1SkRbJyshOcz GYaoZTsC3FtdWtaD5od FDRpCTFtpcXpfPVsb9G lFWTlrFO6wOUmBP8FHt MPp01zDDHfHFTChwRyL GDmtAbdeNW1veJ9uF9e LiBJZiBhcHBsaWNhYmx bXQKas931pn4jimX5XO ChBSKhnehui4TmSPReE DZbiD99FTDrFYLrei7p jxetvDCxeyXuE3Fllyu 0iK0vHJPbDQufYVTkIA ZzMjJcbGFuZzEwMzNca GljaFxmMVxkYmNoXGYx HRwkF8aoZrKsQeYpYbm wYXJ9 [facility] 2023-07-16 18:43:02 Test Item Value Reference Range Interpretation Comments UA WBC (test code = 14 See_Comment H Some rep orting 86789-3) parameters with in the Urinalysis test have changed due to the implementation of new instrumentation in the [facility], [facility] greater sensiti vity of measurement. Urinalysis resu lts reported by the [facility] enters using existing instrumentation , as well as Urinaly sis testing perform ed manually or by backup methodology at the [facility] paula l remain relative ly unchanged. New reporting ruby eters and units will not be reported for [facility]. [Auto mated message] The sy stem which generated this result transmit mariana reference range : 0 - 2 /HPF. The refer ence range was not u sed to interpret this result as normal/abnor mal. UA RBC (test code = 97 See_Comment H [Automa mariana message] 64267-6) The system [employer] generated this result transmitted ref erence range: 0 - 2 /H PF. The reference range was not used to int erpret this result as normal/abnormal . UA Mucous (test code = NOT SEEN Not Seen-Trace 37134-5) /HPF UA Bacteria (test code OCC NOT SEEN /HPF A = 55384-9) UA Squam Epi (test OCC None-Occasional code = 34313-3) /HPF UA Hyal Cast (test 2 See_Comment [Automat ed message] code = 89090-8) The system [employer] [facility] generated this result transmitted ref erence range: 0 - 2 /L PF. The reference range was not used to int erpret this result as normal/abnormal . UA CaOx Rimma (test 1+ NOT SEEN /HPF A code = 29543-0) UA Amorph Rimma (test OCC NOT SEEN /HPF A code = 49978-6) Lab Interpretation Abnormal (test code = 33883-1) [facility] Center[facility] w/Microscopic if Rptbzseiw5168-43-20 16:54:06 Test Item Value Reference Range Interpretation Comments UA Color (test code = 37978-4) Straw Straw-Yellow UA Appear (test code = 15197-2) Hazy Clear A UA Glucose (test code [...] A Lab Interpretation (test code = Abnormal 21007-3) [facility] InglewoodComplete PFT (Marvin, DLCO, LV) 2023-07-11 00:00:00 Test Item Value Reference Range Interpretation Comments FVC (L) pre (test code = 1.381 L 2.424-3.714 L 9507) FEV1 (L) pre (test code 0.996 L 1.833-2.924 L = 9505) FEV1/FVC (%) pre (test 72.146 % 68.478-88.066 code = 9509) DLCO_SB ml/(min*mmHg) 12.545 See_Comment [Auto mated message] (test code = 9515) The [employer] which generated this result transmitted ref erence range: 1.180 - 21.346 ml/(min*mmHg). The reference range was not used to int erpret this result as normal/abnormal . DLCOc_SB ml/(min*mmHg) 13.295 See_Comment [Aut omated message] (test code = 9516) The [employer] which generated this result transmitted ref erence [...] 9530) Lab Interpretation (test Abnormal code = 46771-7) FVC (L) pre (test code = 1.381 L 2.424-3.714 L 9507) FEV1 (L) pre (test code 0.996 L 1.833-2.924 L = 9505) FEV1/FVC (%) pre (test 72.146 % 68.478-88.066 code = 9509) DLCO_SB ml/(min*mmHg) 12.545 See_Comment [Auto mated message] (test code = 9515) The [employer] which generated this result transmitted ref erence range: 1.180 - 21.346 ml/(min*mmHg). The reference range was not used to int erpret this result as normal/abnormal . DLCOc_SB ml/(min*mmHg) 13.295 See_Comment [Aut omated message] (test code = 9516) The [employer] which generated this result transmitted ref erence [...] pred) (test 116 % code = 9530) [facility] Byerbcqho7281-15-21 15:23:55 Beta HCG, <1.7<=4.9 mIU/mLUT [facility] Prkbgzcva4676-03-69 15:23:55 Beta HCG, <1.7<=4.9 mIU/mLUT [facility] Ncwvybufs4103-12-35 15:23:55 Beta HCG, <1.7<=4.9 mIU/mLUT [facility] Gqggt3120-04-59 16:54:53 Test Item Value Reference Range Interpretation Comments D-Dimer (test code = 4.18 See_Comment H [place] [address]-2) exclusion of ve nous thromboembolism is <0.51 mcg/mL FEUs (fi brinogen equivalent unit s). [Automated mess age] The system which ge nerated this result tra nsmitted reference range : 0.10 - 0.50 mcg/ml FEU . The reference range was not used to interpr et this result as normal/abnormal . Lab Interpretation Abnormal (test code = 31208-8) [facility] Zftnc5508-41-58 16:54:53 Test Item Value Reference Range Interpretation Comments D-Dimer (test code = 4.18 See_Comment H [place] [address]-5) exclusion of ve nous thromboembolism is <0.51 mcg/mL FEUs (fi brinogen equivalent unit s). [Automated mess age] The system which ge nerated this result tra nsmitted reference range : 0.10 - 0.50 mcg/ml FEU . The reference range was not used to interpr et this result as normal/abnormal . Lab Interpretation Abnormal (test code = 35471-1) [facility] Gnttn7401-57-28 16:54:53 Test Item Value Reference Range Interpretation Comments D-Dimer (test code = 4.18 See_Comment H [place] [address]-0) exclusion of ve nous thromboembolism is <0.51 mcg/mL FEUs (fi brinogen equivalent unit s). [Automated mess age] The system which ge nerated this result tra nsmitted reference range : 0.10 - 0.50 mcg/ml FEU . The reference range was not used to interpr et this result as normal/abnormal . Lab Interpretation Abnormal (test code = 51940-3) [facility] CenterNT-Pro BNP (In-House)2023-06-26 21:32:06 Test Item Value Reference Range Interpretation Comments NT ProBNP (test code = 99587-1) 49 pg/mL <=125 [facility] CenterTroponin T (In-House)2023-06-26 21:31:36 Test Item Value Reference Range Interpretation Comments Troponin T (test code 7 ng/L <=19 < 19 n g/L Suggest retest = 15316-4) at 3 to 6 hours later to [...] interfere nces and falsely low res ults. [facility] CenterT[facility] (In-House)2023-06-26 21:31:36 Test Item Value Reference Range Interpretation Comments Troponin T (test code 7 ng/L <=19 < 19 n g/L Suggest retest = 24128-6) at 3 to 6 hours later to [...] interfere nces and falsely low res ults. [facility] Center[facility]rop[facility] T (In-House)2023-06-26 21:31:36 Test Item Value Reference Range Interpretation Comments Troponin T (test code 7 ng/L <=19 < 19 n g/L Suggest retest = 91435-4) at 3 to 6 hours later to [...] interfere nces and falsely low res ults. [facility] CenterRespiratory Multiplex PCR Panel, Nasopharyngeal [id number] 23:56:33 Test Item Value Reference Range Interpretation Comments Adenovirus (test code = Not Detected Not Detected 28968-2) Coronavirus 229E (test Not Detected Not Detected code = 56104-1) Coronavirus HKU1 (test Not Detected Not Detected code = 15572-6) Coronavirus NL63 (test Not Detected Not Detected code = 86188-8) Coronavirus OC43 (test Not Detected Not Detected code = 58728-8) COVID19 (SARS-CoV-2) Not Detected Not Detected (test code = 97761-6) Human Metapneumovirus Not Detected Not Detected (test code = 04335-9) Human Not Detected Not Detected Rhinovirus/Enterovirus (test code = 68321-3) Influenza A (test code Not Detected Not Detected = 81555-6) Influenza A H1 (test Not Detected Not Detected code = 86665-7) Influenza A H1 2009 Not Detected Not Detected (test code = 89948-2) Influenza A H3 (test Not Detected Not Detected code = 26093-0) Influenza B (test code Not Detected Not Detected = 05993-5) Parainfluenza 1 (test Not Detected Not Detected code = 98958-2) Parainfluenza 2 (test Not Detected Not Detected code = 61125-1) Parainfluenza 3 (test Not Detected Not Detected code = 23936-4) Parainfluenza 4 (test Not Detected Not Detected code = 09878-9) Respiratory Syncytial Not Detected Not Detected Virus (test code = 37828-7) Bordetella Not Detected Not Detected Parapertussis (test code = 53943-9) Bordetella pertussis Not Detected Not Detected (test code = 56686-9) Chlamydiophila Not Detected Not Detected pneumoniae (test code = 84445-0) Mycoplasma pneumoniae Not Detected Not Detected (test code = 74887-1) LAZARO (test code = LAZARO) Has patient had a positive for COVID-19 result in the last 3 months?->No The BioFire RP2.1 is a real-time, nested multiplexed polymerase chain reaction test designed to simultaneously identify nucleic acids from 22 different viruses and bacteria associated with respiratory tract infection, including SARS-CoV-2, from a single nasopharyngeal swab (HYDROELECTRIC PLANT ELECTRICAL ENGINEER) specimen obtained from individuals suspected of respiratory [...] that may not be detected by an HYDROELECTRIC PLANT ELECTRICAL ENGINEER specimen. Internal controls are used to monitor [...] and high-complexity tests. The Microbiology Laboratory at [facility], CLIA Accreditation #[id number] and CAP Accreditation #[id number], verified the performance characteristics of this assay. Microbiology Laboratory at [facility] performs the assay using the Relatient System. The [employer] RP2.1 is a real-time, nested multiplexed polymerase chain reaction test designed to simultaneously identify nucleic acids from 22 different viruses and bacteria associated with respiratory tract infection, including SARS-CoV-2, from a single nasopharyngeal swab (HYDROELECTRIC PLANT ELECTRICAL ENGINEER) specimen obtained from individuals suspected of respiratory [...] that may not be detected by an HYDROELECTRIC PLANT ELECTRICAL ENGINEER specimen. Internal controls are used to monitor [...] and high-complexity tests. The Microbiology Laboratory at [facility], CLIA Accreditation #[id number] and CAP Accreditation #[id number], verified the performance characteristics of this assay. [facility] at [facility] performs the assay using the Relatient System. [facility] CenterCytogenetics Specimen Collection -[id number] 00:24:54 Test Item Value Reference Range Interpretation Comments Guerda Severino (test code = 70059) [id number] Cytogenetics (Received) (test code Yes = 8304) [facility] CenterCytogenetics Specimen Collection -[id number] 00:24:54 Test Item Value Reference Range Interpretation Comments Beaker Ap Link (test code = 07007) [id number] Cytogenetics (Received) (test code Yes = 8304) [facility] CenterCytogenetics Specimen Collection -[id number] 00:24:54 Test Item Value Reference Range Interpretation Comments Guerda Severino (test code = 48267) [id number] Cytogenetics (Received) (test code Yes = 8304) [facility] CenterCytology Non-Silver Plater Interpretation 2023-05-28 21:58:23 Test Item Value Reference Range Interpretation Comments Gross Description (test v6huwNYzHNOkfQIZIOFe code = 3724160648) SIZtBA0yeSvnmAe9rRco VFTdzcK7zCJzQCnxl3xr ZON3s3ibzgHBBvnvYKDe WT7rKCgzSOWzSC8gLgCe XGRlZmYxXHBhcGVydzEy CnAeLGDfrLKkiTV5NHAk UY0craheUBksMJniFXNw bkO1BUSlkEVxK6OrBNEg HB9tbuguQMS0FNIBBigd Gm2jqYRwcCocXoAfQkYf YXJzZXQwXGZuaWwgQXJp CXa3gY5OMtzhN10wd4Y9 Buc1SSNfLBHyG4PoSA4w HEZmpFBeH09CLdvvXZE7 CHWPGprjQgpzwYlpr7Tr dCBcXHNnIFxcaWQgNTEw MDAgXFxkYiBPVlIgIiAx QwM5NqR7LgV4FNg6NDTG DWZeToT9Opa0AjZ6HHv5 PWSiTU4bBWxveMHiNNmf ZxtwEHewQ262INjnQNTz O2JtD7VrJCxqPdHlFLhp PMJbWRTeIVxfQDSrD5TD ICIgMTMyOTYwNiIgOTk5 ENckQ8SMXAUyXQS5VMN7 QvdhCmN8ARb0NWFSQr0b QUF1QSKvFBmyKJF1NPp1 REYpGM1aZOazjLSmQSkp l2FpAxKcNGKiWQyquoV0 XXChbcZyAUqojJwchO5m MIFkO65sj7ZBu9DtSK2I ALr3tzJubzdrdT6rCYVx orYhWVmtiQKoR2ugK3Ba XGZzMjAgMSBEaWZmIFF1 pIh3IKWvVGVzVAN8PWho UPKalLZte5igOLIfUCy4 GZAnmTwyEUenyg37ZUE3 h7mdlEMdPSnaGylixXVl vsT8FFdFWIAPZWdVNbNx UQ0qCAhBV1UCYZpFNjpk JAV7DRhpaJI8q1nsgGLc a7y6WAsnRUS2sWIug1Gj mONukCIqqJRtgHN4GJTi UUxox0luQGAxYCwdx6Xb IJxQYKXLCE8ZQJ5tdXE5 E5iOJXHXL7aNmIQ5z4qm jGQgr8l7PRdbLKM0eHok nOrhx3woQdwiaKP5HZmd PafclV0nqKTNFIBHCuzW MjghfqXpJR8HYFuLSB1I iGQ6y6ntwJTph6i2GYfo ZAT3xAdfdNVrzzhdtFDd qRxszc11NNT7HLEgIZoi czIwICBmbHVpZHtcZmll fNP9JZomMvmjmV4vwMIP SHPHCcxONnzkfaLyZG8Z ZCYQME9GqQB4FdSsxMK5 WF66BCJuPVOcdFXlFZdt W292XKLjQZexVRm1eyRy XGNmMVxmczIwXHBhciAN Frjhwe54QQU8h5ijcSCj FHbuIqnipCOpbuX5WDyX XBEKHXxSMbZmOH4gLFrM L3FIJVeHVaswFBA2LQhy mKU7y8eslTDdd6b6KLqz HWY9aKQkKBVbsWZdFBPv bmNlbnRyYXRlZCBieSBj xYWbZ3UmdNIrDnTaIDOa u56vbIHzoB0weZVto0tn aWVsZHtcKlxmbGRpbnN0 TKqNUHNAFOtPBvIvIN3t CPdYG3QMUfH8WoH2WeI3 U6giqNdpPchpgwGquSHi ZxMOfE3ktHuczQ1jfAYa G4dqQ5EzWIWrXjKspYCa DU0QELRgliLXLfcpNbVc LQBWKFbmJACtf2LyZBVj ciANCkRhdGUvVGltZSBQ xMOfBXHrsH4uLc6huYMa uU53WMgcsc25MJL4r9kx aWVsZHtcKlxmbGRpbnN0 OEzDTHVNAJsXEpKoOY2p NStULjtLFWfHMvi6EVZ2 Goy1qYOVTIFBEJFLTLjm eNd9LVi6xIdyZepbywCe uVYeLfLZjB6rNe0yPk7e G4wpBbrknHX1EYzaRnhc bG2uoJXUEEZCQwjEQyrj ckGcXT8YAV7OFF1ImCEc GAzdrCI3MM9QXZbMFHNN yQP9aDtdtQd8t1rxoWAx w0q3KKwwFZX0cHkjcNKm blxsdHJjaFxmczIwICBc cHJvdGVjdHtcZmllbGR7 ZZqmIifcdC1vuJSBFXXZ CqzQHzrosxQdPG0CRV4D AmAAEX72DIA8NZlBQ5j2 NTb4qMJ6cN72YIUuQPFc jKWoLDwuZ924Qyn1ABZF RHsxUghgoMR4PIghTlqc dZ9goXCHSNDCVpeONzwu emSaMR5PYH4IVM8LdDwf xGO0Co6NrVZ9iJmgaVm2 f7kdpQIya1b2XTuiXJA5 fVxwbGFpblxsdHJjaFxj ZjFcZnMyMFxwYXIgDQpc CIStT02pa5EXa8Thw7wl gPnja1VtcERcUB81GQGs zVZlJAQ3JC3kbHnnZZEb QAsebPafvE7yTVf6 Major Classification MALIGNANT A (test code = 9839) Diagnosis (test code = x8zesXDrIBVbrXDgRUVd 34) U2fxcyQsCNGzbVMvG6Ej prwsLTjwPX5kON5aaTyo vTBsmCSiZZVmSvGzg8gv a995qLVwg1dsKYONlvqo xIj8kFjtW53nn0O0Pxkk G6utMVYvTTbkRSRzIQhe zJYyTKc2SLTttDRamgUk LqKwFZHwiGPsbFY0OYOk TW1jlwyzYRbkSBfkKUUr peT8WWAtwSBoX6GcIESh RU1nzqegIMX8ESxnJANt BGC8HsIaSDRej8Wjrby7 PgGqvVz8u3wrMMSgOJTo bYubb2hhYGO4VERxaUFl S8hmbB6bGZYyEC3xnfzw i9jlHNrqJQmmYJTtbLG0 rmW0YWYacSOxD1QeiY0i GBZxUTFxbaHlrNnwhP0b ZnMyMFxjZjEgUGxldXJh bCBmbHVpZCwgdGhvcmFj e4TruiWrs8ctVgdvHHLg dGFiXHBhclxsaTcyMFxs rB58JlNbn6jiX1YmmXGn RP2DUUNHRYLGFTHwIRVW Fc7IVLLOOG7ITQOmKVRN IdWWV7VJFiRcW9eYTWLQ KOSHXD2EG4RmTXsGMV4R VDXHVpOJNmOYX8CdL5SW E6dQI50JLHnyIPZvZ18x bWVudClccGFyfQ== Comment (test code = a9rljZYeBYJijCJhFMOr 9804) L7ossjSpYHOwmXMxL5Hu wgylRVjzIX4wZZ2zqZvx vAQhoXNmJLZtUgIuu9cz q341zVHeq9riHVCVabxk gPc2nZrqC98eh3M8Osfk J13skDHqUXR3MNMlIELj qKFaJPQqEJY6MCHmaIOi Z2wnSWPfSB7dfhtbNZcx MDqqVWWmiSH3THMxbNVj V0GtSYTtYUiiDZFouwn6 KiCbAf6gmFXzmRlbULhd YXJkXHBsYWluXGZzMjAg SEcuCNT0pX1uFHHzyGli IGFyZSBzdHJvbmdseSBw l1DhvRm6TBWhx4ZrJNHd GTfaFAkzVM1rI1F5tFOz IGZvciBQUiBhbmQgSGVy NgTZBVSrfDJzReU5axXa La4eaKFaBYNruKWhp145 uz1ydkGfepRbLTNwjm3q oroirXKtRBhKGs6wGHS5 RMAKX5eof2vhlYAfYMEl XCYim0GfUVSmGN4qVNQa KGKbXQZ4kWMcOJwtvIzf YmUgaXNzdWVkIGluIGEg m4ZlUSEfoOBlbwFcr6E6 LlxwYXJccGFyfQ== Retained/Biomarker m8cveZBjPQVzfHFrHCJu Testing (test code = L7x2vNLjr6Z5kboqCK6n 9847) qLtelJo8wNvuHPCacyJ3 lFRoQXcaw7pbDSU2z2cq mkfvGLMmBXsbRg1ibSVs lQxmCfRtJKXdMCy6cN76 FLJwdB4qoQUpHUj4YTRq cGVydzEyMjQwXHBhcGVy xQW2HSBgHT8kntqoAVoz QOwpYGVqbxA3SASxpWLg Y7PnCDAcQH1hkcchDUX4 EThcUGFuNYD9JeVlEJZh p8Htnfs1VoDshQYdXDrg bGFpblxmczIwIFNSOiA0 CUBiQFKtM8YyXNMmRKEb qNHvUKYwcaXGyH2hRLKo ZXIgVGVzdGluZyBccGFy XGxpNzIwXGxpbjcyMCBN QCkvD1RuuKZKbO9wlmhf XdBeF3cjMWMkCHYXHKBd yKaiOETpy4BpC1R3VOLy IVfvk6inMTDmAFjsz4La CEvQIUCWDF9XNN6qdWJ9 TFqRFNQTC2yIkJK8Himc xDK7YJ96AGTwPUWlpWZz JDgkC120AEQtuLXTPSYs IKPquSDjrUBioXH4EXLo LIbav4pqHFZuHZlyz2Eu IPvOSHXIOJ2EBQ4jyPQ7 E4mEJXGUK5bAkMF4t1qf kVNjj8b7ORthIAE0vBX9 TAZeFKcqu9qgSIFkLSly o8HdXVnXGHMZJD8IOC1j lEK2A4xNQJPJIPhyvPuh FcmgmoBwhGPtKqUgtJ8s cPkkbF8gvJCrmUJnbNbt ejUkJOFGsPlmCMF6ZUOn MFqlu2ofSSMgABqzo6Xd CRpGJUJWEH1YVF0yzTJ9 VUgSVOGPMFiiZTP0JDxk rAH2e0iobDHtc5r2CUrc UVS5cMtgiDYjihmjzzAj WAFcvkRZYAojRJN0OJbl zj39EYK9j6pglIIvAHzu GpzloOMoraB5OVnNBRKN CTqOQcOaYD1vRByJX7TA IApGVwfiWGG6MGawrBH5 l9tirUQnz5z7EJpmOHZ8 dNgwmNwmR5kJKPYgHOKu x7QfA3Qpi7tgtUAyFVhu IhqwiCOclzT7AZgEMAXS GJgYHeGnZF0hQAwXYPTD EZtNSdb2gReqRflndrTj jSRrLcDhaR6bu0qhkVXg QUydGtiihSJkimI6RVdP FKZGHFjELaWbPD2oUAhV ELTOHuI8GH49ASWkHMJd jUPpGJscZ132TBDnKCxj CKOlm1ImX9KbTkWmJXJz V0wqJFIpu9patUHyYJwz MgfexKWbfpM3KAzLRWEP HAfJEkWbVZ1uQZrRS7IP ImH2SrF8MgC4P6gdpAkl WzuqxiHpwLMtYxQajK8g mPkqhT3hOdFhJSypYHVg bGkwXGZpNzIwXGxpbjAg XpvCGVSHMIgvXQTjg1Pu V5W4RXFoPVqqq0ylNWMe KCvpe4PdZYbMKEQEBA3S JY6nuUV6BBjKUCSHK5nR aBU7NmfslCE7CU55JTPh NQBjwBQiRJozM127BFBg aWNTTFAxICBccHJvdGVj pRF7YHEsAAzsx1ixDRHf NGhep6JiQGvRJHBMDU0K VZ7fzKC5G8xCSIOPB7oZ lYU7e7dzlFEij7m1TLbl PGQ4vFH6ERAvXOxts0nm FAKdXJlpd9YyRFyPFARN OE5MHA8cjCN8A2uQXKYY GIs7lEsqXdwuaeGnoFLq HnHzjH6mtUpvaW5rdXVy dGVjdFxmczIwICBTbGlk FYN5EXOvDHiue2ciYJBo KBycf7EwWJmVZAOATF7G HT6iaNL3KHhFPDUXNIek PUE6FIj2dSD6c2oqyNYe e2p7CYdsDPH7dFzglAIv blxmczIwXHBhclxwYXJk UI1qu2zrL1YhlZLpBBGo bbk2PEVWVZUDUNnUHB2B RDTSWVNBGJ8KEUgEOzZx BVB1IJheYDX1MtElXiQ3 OjC2Je2lVqy7EzJ3Kxcb iES9Cwp2IiQNKWMIRGoA P9LbPFHSLHECCIAjBZ8H FZvRMHFECEUGP92WWGGA PVJEG9DHH0sJMTVeohNf fTRcezFcfTZcezFXSUxE N3EQVF1YWYPFKOXXKK3W FpQjQZhPC3IJG8dHHZOz PHCEHSEGQMMsNiLYTQ7m LYn5Li6hJ8yvSGFfElU2 SpwkQY9fASlQyo7GsOxa STH1WsA3OoRbiMBtu62h H6GqhMCowadoTPI4KMz2 WVWZVURNYV9VWIGPJ40Z BUSPKYVKN2DYWJSAVlFN FZNCZ34UZIGYVWSSD0SW C0aMAQNYJdXSYTCWN86A CLERHBVZJ1TRNXDTEQFM JlJAXrQTRK1SARDVEYWB MT4JPIqDTmBcSEQAY5BL RfIML0nsCMTYLIZWIIWz RU5EfQ== Informational Points g5xlgAWxIWAqtPGfPzEf (test code = 9836) KQJjRNNoy4gjUIFmoFCq ZzEwMzNcZnRuYmpcdWMx GRLxChCvp7qtf410mRUk f0dtCRXbLeP7cDCcYANm tDPaN211AUMiOJxbx7gk e8UfDVBhxWMjz6G0NUQO TYjpUXOMERh8y0vrBvPb HmF2xFNvSNkgE4rouwIx bEYxBGFcHDr5rR04LSCn jK8avJPzWNnpevOlUvT1 VZrcKXFwUoL1NGCevKKl TJFqW7crIDLeGIfmRWXi IVddiQRdQBB9bJjhq7C1 bGVzaGVldHtcZjBcZnMy JiCOx2IeKQv7bUikJ7Xh ZEWtLqO8wNYmYONvSFyu XBWsCMIlxvH8kN27PPgw gxU0qVFnw1Mcf71ag721 qP9blXMzVQM3AORyDSJj oKQzKVNtVAH9CYPofRAl Z8bzLVPyFW6wodflEKkp JJqdFTEidKZ4FPFmbLIj Q0AzEFWnTSdvQEUeeuo1 ZwEuZo6ooFLzsPflQFbn b2lkx9revYWhPum9XVEh GrZzCgcsXDuzv2Aaj8zn ONGnwy1nIHU4rFJssKgd s9T5hRStRYFrcYOgcxLs PYWzBnW0JBujKE7rmp11 ICQlPUB5ye5lnRHgfFyg ysOyrEHiMJpsJ0QgYHVt m483MXDqI6DuBFLuz9L6 btBkXcUlUZYgxQM2idA8 LXEaCBz6pPUctwQ0tgJd sHGnF1yhkV7iKQSsUE0g ngaxd0xaIOleNQhgNNFl nCF4zgG4LFAvdFBtV4Mx mU9gVAReEPvuLGPcezq3 MrBsBt9obESldHkzMQap YmtwYWdlXHBnbmNvbnRc cGduZGVjXHBsYWluXHBs YWluXGYwXGZzMjRccWxc zIszxR0eHcBgKpOdVFxn EM6rJASzZ4rcnOLjJYPl CQBlA8hiNlOfkC1ycDrb HFsdfgI7VVfcB71cXPX6 LQT5yaCcTAOtudMtKDZd SFYaOZ3gzPCcDNRfZFPr EE3gOOQ4DAusiFVkFOYe HTPaGOLyz1TrLB0cRTIr bAWfAAO6CZKvw9KjH9Bn JKY8ZPCfsB3oJWAhtAMQ VCBNRCBBbmRlcnNvbiBQ JYSel3prR9woGH7iZQui Vl6aVNRgskijNWMmxNGx lgOlSFIrRRQeGBSzv5Yx KVgwxkQddc93ONLaIX6w j7WxX6fwrHWccCv5KVGp JMGrLPHib8VuAJQttt64 LKVyWouujLjuROEaWx3x Ct1wXMAxgzYwFQD4XrZM OF2anddnyDOpuUeurg4b XHBsYWluXGYyXGZzMjJc bGFuZzEwMzNcaGljaFxm JrcnByQzUYWdLIarV1nm ZjJcZnMyMlxwYXJ9 Lab Interpretation (test Abnormal code = 58047-4) [facility] [id number] 13:12:14 Test Item Value Reference Range Interpretation Comments Final Report (test No growth code = 8488) Gram Stain Report Few WBC's seenNo (test code = organisms seen. 63509-2) LAZARO (test code = Tube number 3 to LAZARO) Microbiology [facility] [id number] 13:12:14 Test Item Value Reference Range Interpretation Comments Final Report (test No growth code = 8488) Gram Stain Report Few WBC's seenNo (test code = organisms seen. 57350-9) LAZARO (test code = Tube number 3 to LAZARO) Microbiology [facility] [id number] 13:12:14 Test Item Value Reference Range Interpretation Comments Final Report (test No growth code = 8488) Gram Stain Report Few WBC's seenNo (test code = organisms seen. 19380-9) LAZARO (test code = Tube number 3 to LAZARO) [facility] 2023-05-22 15:14:27 Test Item Value Reference Range Interpretation Comments Body Fluid Metastatic Diff Interp carcinoma. (test code = NAIMA CANDELARIO MD - 8754) [id number] b y: NAIMA CANDELARIO MD - 29035T ictated Date/Time: 05.10 10:14 AM CDT Transcribed Aquilino e/Time: 05.22.2023 10:1 4 AM CDTElectronical ly Signed By: NAIMA CANDELARIO MD - [id number] on 05.10 10:14 AM LAZARO (test code Tube number 2 to = LAZARO) [facility] [id number] 02:33:18 Test Item Value Reference Range Interpretation [...] = Tube number 2 to LAZARO) [facility] [id number] 02:29:51 Test Item Value Reference Range Interpretation [...] th e patient s clinical condition. Pathologist cricket heath is available. [Automated mess age] The system [employer] generated this result transmit mariana reference range [...] th e patient s clinical condition. Pathologist cricket velascot is available. [Automated mess age] The system [employer] generated this result transmit mariana reference range : /mcL. The refer ence range was not u sed to interpret th is result as normal/abnormal . LAZARO (test code Tube number 2 to = LAZARO) Hematology [facility], [id number] 21:07:17 Test Item Value Reference Range Interpretation [...] LAZARO (test code Pleural fluid = LAZARO) [facility], [id number] 21:07:17 Test Item Value Reference Range Interpretation [...] LAZARO (test code Pleural fluid = LAZARO) [facility], [id number] 21:07:17 Test Item Value Reference Range Interpretation [...] LAZARO (test code Pleural fluid = LAZARO) [facility] [id number] 21:07:16 Test Item Value Reference Range Interpretation [...] number 1 to code = LAZARO) Chemistry [facility] [id number] 21:07:16 Test Item Value Reference Range Interpretation [...] number 1 to code = LAZARO) Chemistry [facility] Body [id number] 21:07:16 Test Item Value Reference Range Interpretation [...] number 1 to code = LAZARO) Chemistry [facility]Glucose Body [id number] 21:07:15 Test Item Value Reference Range Interpretation [...] Tube number 1 to = LAZARO) Chemistry [facility] Body [id number] 21:07:15 Test Item Value Reference Range Interpretation [...] Tube number 1 to = LAZARO) Chemistry [facility] Body [id number] 21:07:15 Test Item Value Reference Range Interpretation [...] Tube number 1 to = LAZARO) Chemistry [facility] CenterProtein [id number] 21:07:14 Test Item Value Reference Range Interpretation [...] code Tube 1 to = LAZARO) Chemistry [facility] CenterProtein [id number] 21:07:14 Test Item Value Reference Range Interpretation [...] code Tube 1 to = LAZARO) Chemistry [facility] Center[facility] [id number] 21:07:14 Test Item Value Reference Range Interpretation [...] code Tube 1 to = LAZARO) Chemistry [facility] CenterCholesterol Body [id number] 21:07:13 Test Item Value Reference Range Interpretation [...] number 1 to code = LAZARO) Chemistry [facility] Center[facility] Body [id number] 21:07:13 Test Item Value Reference Range Interpretation [...] number 1 to code = LAZARO) Chemistry [facility] Center[facility] Body [id number] 21:07:13 Test Item Value Reference Range Interpretation [...] number 1 to code = LAZARO) Chemistry [facility] CenterAmylase Level Body [id number] 21:07:11 Test Item Value Reference Range Interpretation [...] Tube number 1 to = LAZARO) Chemistry [facility] CenterAmylase Level Body [id number] 21:07:11 Test Item Value Reference Range Interpretation [...] Tube number 1 to = LAZARO) Chemistry [facility] CenterAmylase Level Body [id number] 21:07:11 Test Item Value Reference Range Interpretation [...] Tube number 1 to = LAZARO) Chemistry [facility] CenterBlood [id number] 01:40:18 Test Item Value Reference Range Interpretation Comments Final Report (test No growth code = 8488) Path Review - Immunity and antibiotic Bottle/Isolator use may render culture (test code = 8499) negative. Ongoing infection requires repeat culture.The results have been reviewed and electronically signed by Pathologist:LUKE HOLLIS MD #[id number] [facility] CenterABORh [id number] 04:04:40 Test Item Value Reference Range Interpretation Comments ABORh Manual (test code = 882-1) O POS [facility] [place]
[2023-10-02 10:08] LABS: Absolute Lymphocytes (CBC) 0.7 K/uL (0.7-4.9); Hematocrit 28.9 % (36.0-45.0); Lymphocytes % 14.5 % (15.3-44.8); MCV 89.7 fL (80-100); MPV 7.2 fL (7.6-11.3); Platelets 279 thou/uL (152-406); RBC Red Blood Cell Count 3.22 M/uL (3.86-4.86)
[2023-10-02 10:13] LABS: Protime INR 1.05
[2023-10-02 10:44] LABS: White Blood Cell Scan OK (OK)
[2023-10-02 10:45] LABS: Albumin 2.5 g/dL (3.4-5.0); Bilirubin Direct 0.2 mg/dL (0-0.2); Bilirubin Indirect, Calculated 0.4 mg/dL (0.2-0.8); Bilirubin Total 0.6 mg/dL (0.2-1.0); Blood Morphology Comment NOT SEEN (NOT SEEN); Magnesium 1.8 mg/dL (1.6-2.4); Platelet Estimate ADEQ; Potassium 3.6 mEq/L (3.5-5.1); Protein, Total 6.7 g/dL (6.4-8.2)
--- NOTE | 2023-10-02 10:58 | RAD REPORT ---
EXAM DESCRIPTION: Basilio Single View10/02/2023 10:10 am CLINICAL HISTORY: sob COMPARISON: September 11, 2023 FINDINGS: Mild worsening in right and mild improvement in left pulmonary opacities Heart is normal size
[2023-10-02] MEDS ORDERED: MINERAL OIL ENEMA 135 ML BTL PR ONE (14:26)
--- NOTE | 2023-10-02 15:24 | EDPHYS ---
Physician Documentation [facility] Name: Arlene Lane Age: 57 yrs Sex: Female : 1965 Arrival Date: 10/02/2023 Time: 09:24 Bed 2 Private MD: ED Physician Trevor Cyr HPI: 10/02 09:37 This 57 yrs old Female presents to ER via EMS with complaints of Shortness Of Breath. sb4 09:37 The patient has shortness of breath at rest. Onset: The symptoms/episode began/occurred sb4 gradually, and became worse last night. Duration: The symptoms are continuous, and are steadily getting worse. The patient's shortness of breath is aggravated by exertion. Associated signs and symptoms: Pertinent negatives: chest pain, non-productive cough, dizziness, fever, hemoptysis. The patient has experienced similar episodes in the past, several times, today's symptoms are similar. The patient has been recently been admitted at [facility], was discharged a couple of weeks ago. patient admitted here about 1 month ago for pneumonia vs pneumonitis, was supposed to follow up with Dr. Flores but did not. has metastatic breast cancer undergoing clinical trial at [facility]. Historical: - Allergies: 09:27 [place]; kc6 - PMHx: 09:38 breast cancer; Hypertensive disorder; kc6 - PSHx: 09:38 FRANCY mastectomy; kidney stent; kc6 - Immunization history:: Adult Immunizations not up to date. - Social history:: Smoking status: Patient denies any tobacco usage or history of. ROS: 09:37 Constitutional: Negative for fever, chills, and weight loss, sb4 09:37 Respiratory: Positive for dyspnea on exertion, pleurisy, shortness of breath, 09:37 All other systems are negative, Exam: 09:42 Head/Face: Normocephalic, atraumatic. Eyes: Extra-ocular motions intact. Periorbital sb4 areas with no swelling, redness, or edema. ENT: Mucous membranes moist. Abdomen/GI: Soft, non-tender, no distension. Skin: Warm, dry with normal turgor. Normal color with no rashes, no lesions, and no evidence of cellulitis. MS/ Extremity: Pulses equal, no cyanosis. Neurovascular intact. Full, normal range of motion. Neuro: Awake and alert, GCS 15, oriented to person, place, time, and situation. Motor strength 5/5 in all extremities. Sensory grossly intact. 09:42 Constitutional: The patient appears alert, awake, anxious, 09:42 Cardiovascular: Rate: tachycardic, Rhythm: regular, Pulses: no pulse deficits are appreciated, Heart sounds: normal, 09:42 Respiratory: mild respiratory distress is noted, Respirations: tachypnea, that is mild, Breath sounds: decreased breath sounds, that are moderate, are heard in the right posterior upper lobe, right posterior middle lobe and right posterior lower lobe, Respiratory rate: 20 Vital Signs: 09:26 BP 173 / 96; Pulse 110; Resp 20 S; Pulse Ox 96% on 2 lpm NC; Weight 68.04 kg (R); kc6 Height 5 ft. 2 in. (R); Pain 0/10; 09:38 BP 152 / 98; Pulse 103; Resp 20 S; Pulse Ox 100% on 2 lpm NC; kc6 10:21 BP 140 / 77; Pulse 99; Resp 23 S; Pulse Ox 99% on 2 lpm NC; kc6 12:16 BP 135 / 94; Pulse 102; Resp 20 S; Pulse Ox 100% on 2 lpm NC; kc6 13:32 BP 159 / 100; Pulse 104; Resp 20; Pulse Ox 100% on 2 lpm NC; ph 15:10 BP 166 / 107; Pulse 100; Resp 18 S; Pulse Ox 100% on 2 lpm NC; kc6 16:30 BP 172 / 109; Pulse 102; Resp 22; Temp 98; Pulse Ox 100% on 2 lpm NC; ph 09:26 Body Mass Index 27.44 (68.04 kg, 157.48 cm) [facility] 09:26 Pain Scale: Adult kc MDM: 09:29 Patient medically screened. sb4 09:42 Differential diagnosis: Anemia Anxiety Reaction asthma, Bronchitis CHF exacerbation, sb4 Chronic Obstructive Pulmonary Disease pneumonia, Pneumothorax pulmonary edema, Pulmonary Embolism. 12:22 Awaiting: CT scan results, CTA could not be completed because IV went bad and patient sb4 could not tolerate. dispo pending results. 15:24 Data interpreted: Pulse oximetry: on 2L(s) per nasal canula, is 100 %. The patient's sb4 pulmonary embolism risk score was calculated as follows: the patients heart rate is greater than 100 beats per minute (1.5 Pts) the patient has a history of a previous deep vein thrombosis or pulmonary embolism (1.5 Pts) malignancy Total Score: 3-6 points. This patient was found to be at moderate risk for a pulmonary embolism by using the Well's assessment criteria. Data reviewed: vital signs, nurses notes, EMS record, lab test result(s), EKG, radiologic studies, I have discussed the patient's presentation/case with the attending Emergency Department Physician;. Consideration of Admission/Observation Patient was admitted/placed on observation. Counseling: I had a detailed discussion with the patient and/or guardian regarding the historical points, exam findings, and any diagnostic results supporting the discharge/admit diagnosis, the presence of at least one elevated blood pressure reading (>120/80) during this emergency department visit, lab results, radiology results, the need to transfer to another facility, for higher level of care, [facility] does not immediately have the required specialist. 10/02 10:02 Order name: Basic Metabolic Panel; Complete Time: 10:49 EDSC 10/02 10:02 Order name: Liver (Hepatic) Function; Complete Time: 10:49 EDSC 10/02 10:02 Order name: Troponin High Sensitivity; Complete Time: 10: EDSC 10/02 10:02 Order name: NT PRO-BNP; Complete Time: 10:49 EDSC 10/02 10:02 Order name: Magnesium; Complete Time: 10:49 EDSC 10/02 10:02 Order name: Lipase; Complete Time: 10:49 EDSC 10/02 10:03 Order name: CBC with Automated Diff; Complete Time: 10:49 EDSC 10/02 10:03 Order name: Protime (+INR) EDSC 10/02 10:03 Order name: PTT, Activated Partial Thromb EDSC 10/02 10:03 Order name: Blood Culture EDSC 10/02 10:03 Order name: Lactate w/ 2H reflex if indic.; Complete Time: 10:49 EDSC 10/02 10:18 Order name: CBC Smear Scan; Complete Time: 10:49 EDSC 10/02 10:40 Order name: Blood Culture [facility] 10/02 11:57 Order name: Troponin High Sensitivity; Complete Time: 14:06 sb4 10/02 15:34 Order name: SARS RAPID sb4 10/02 15:34 Order name: Flu sb4 10/02 09:50 Order name: Chest Single View; Complete Time: 11:06 EDMS 10/02 10:50 Order name: Chest For PE Angio CT; Complete Time: 16:27 sb4 10/02 09:30 Order name: EKG; Complete Time: 11:47 sb4 10/02 09:30 Order name: Cardiac monitoring; Complete Time: 09:30 sb4 10/02 09:30 Order name: EKG - Nurse/Tech; Complete Time: 09:30 sb4 10/02 09:30 Order name: IV Saline Lock; Complete Time: 09:55 sb4 10/02 09:30 Order name: Labs collected and sent; Complete Time: :55 sb4 10/02 09:30 Order name: O2 Per Protocol; Complete Time: 09:30 sb4 10/02 09:30 Order name: O2 Sat Monitoring; Complete Time: 09:30 sb4 EC:32 Rate is 110 beats/min. Rhythm is regular, Sinus tachycardia. [place] interval is normal at sb4 134 msec. QRS interval is normal at 74 msec. QT interval is normal at 430 msec. No Q waves. T waves are Normal. No ST changes noted. Clinical impression: Normal ECG and Sinus tachycardia. Reviewed by me. Administered Medications: 09:55 Drug: Ativan IVP 1 mg IVP once Route: IVP; Site: left antecubital; kc6 10:21 Follow up: Response: No adverse reaction; Anxiety decreased; RASS: Drowsy (-1) kc6 14:24 Drug: Fleet Enema [place] 133 ml NY once; may repeat once Route: [place]; kc6 15:10 Follow up: Response: No adverse reaction kc6 15:35 Drug: Acetaminophen PO 1000 mg PO once Route: PO; ph 16:19 Follow up: Response: No adverse reaction; Pain is unchanged, physician notified kc6 16:19 Drug: Ketorolac IVP 10 mg 10 mg IVP once Route: IVP; Site: left upper arm; kc6 16:49 Follow up: Response: No adverse reaction ph Disposition: 09:50 I was immediately available on-site in the Emergency Department for consultation in the ms3 care of the patient. Disposition Summary: 10/02/23 15:23 Transfer Ordered Notes: Transfer Location: Other Acute Care Facility sb4 Reason: Higher level of care sb4 Condition: Fair sb4 Problem: an ongoing problem sb4 Symptoms: are unchanged sb4 Accepting Physician: Dr. Dewey(10/02/23 16:49) ph Diagnosis - Acute and chronic respiratory failure with hypoxia sb4 - Metastatic breast cancer sb4 Forms: - Medication Reconciliation Form sb4 - SBAR form sb4 Signatures: Dispatcher [employer] EDMS Luis Armando Shields, METAL ROOFER-C METAL ROOFER-Cla1 Stephanie Sun RN RN Trevor Cyr DO DO ms3 Estrellita Moran RN RN kc6 Justa Leblanc, PA-C PACorrine sb4 Corrections: (The following items were deleted from the chart) 09:38 09:27 PMHx: Cancer; [facility] kc6 09:38 09:27 PSHx: FRANCY mesectomy; 6 kc6 11:52 11:28 Chest For Pe Angio ordered. EDMS EDMS 11:56 11:47 Chest Single View+RAD.RAD.BRZ ordered. EDMS EDMS 13:29 11:47 BLOOD CULTURE*+BA.LAB.BRZ ordered. EDMS EDMS 13:30 11:47 BASIC METABOLIC PANEL+C.LAB.BRZ ordered. EDMS EDMS 13:30 11:47 CBC+H.LAB.BRZ ordered. EDMS EDMS 13:30 11:47 HEPATIC FUNCTION+C.LAB.BRZ ordered. EDMS EDMS 13:30 11:47 LIPASE+C.LAB.BRZ ordered. EDMS EDMS 13:30 11:47 MAGNESIUM+C.LAB.BRZ ordered. EDMS EDMS 13:30 11:47 PROBNP+C.LAB.BRZ ordered. EDMS EDMS 13:30 11:47 PROTIME (+INR)+COAG.LAB.BRZ ordered. EDMS EDMS 13:30 11:47 PTT, ACTIVATED+COAG.LAB.BRZ ordered. EDMS EDMS 13:30 11:47 Troponin High Sensitivity+C.LAB.BRZ ordered. EDMS EDMS 13:55 09:37 patient admitted here about 1 month ago, was supposed to follow up with Dr. rafael Flores but did not. undergoing treatment with oral chemotherapy pills at [facility]. sb4 14:59 09:37 patient admitted here about 1 month ago, was supposed to follow up with Dr. rafael Flores but did not. undergoing treatment with oral chemotherapy pills at [facility]. sb4 15:01 09:37 patient admitted here about 1 month ago, was supposed to follow up with Dr. rafael Flores but did not. has metastatic lung cancer undergoing clinical trial at [facility]. sb4 15:37 15:24 The patient's Wells Deep Vein Thrombosis Score was calculated as follows: 4 4 16:49 15:23 Dr. Dewey [facility] ph
--- NOTE | 2023-10-02 15:24 | ER ---
Nurse's Notes [facility] Name: Arlene Lane Age: 57 yrs Sex: Female : 1965 Arrival Date: 10/02/2023 Time: 09:24 Bed 2 Private MD: Diagnosis: Acute and chronic respiratory failure with hypoxia;Metastatic breast cancer Presentation: 10/02 09:26 Chief complaint: EMS states: pt began having sob last night. pt was found to be 100% on kc6 8L via NC at home. pt denies cx pain and is 96% on 2L via NC. Coronavirus screen: At this time, the client does not indicate any symptoms associated with coronavirus-19. Ebola Screen: No symptoms or risks identified at this time. Initial Sepsis Screen: Does the patient meet any 2 criteria? RR > 20 per min. HR > 90 bpm. Does the patient have a suspected source of infection? No. Patient's initial sepsis screen is negative. Risk Assessment: Do you want to hurt yourself or someone else? Patient reports no desire to harm self or others. Onset of symptoms was October 02, 2023. 09:26 Method Of Arrival: EMS: [facility] kc6 09:26 Acuity: JOSHUA 3 kc6 Triage Assessment: 09:27 General: Appears in no apparent distress. uncomfortable, Behavior is cooperative, kc6 appropriate for age, anxious, restless. Pain: Denies pain. EENT: No signs and/or symptoms were reported regarding the EENT system. Neuro: Level of Consciousness is awake, alert, obeys commands, Oriented to person, place, time, situation, Appropriate for age. Cardiovascular: Denies chest pain, Heart tones S1 S2 present Capillary refill < 3 seconds Rhythm is sinus tachycardia. Respiratory: Reports shortness of breath at rest on exertion Airway is patent Trachea midline Respiratory effort is even, labored, with nasal flaring, Respiratory pattern is symmetrical, tachypnea Onset: The symptoms/episode began/occurred yesterday, the patient has moderate shortness of breath. GI: No signs and/or symptoms were reported involving the gastrointestinal system. : No signs and/or symptoms were reported regarding the genitourinary system. Derm: No signs and/or symptoms reported regarding the dermatologic system. Skin is healthy with good turgor, Skin is pink, warm \T\ dry. Wound noted coccyx and gluteal cleft Wound is superficial and reddened. no swelling or drainage. pt denies pain or discomfort to the area. Musculoskeletal: No signs and/or symptoms reported regarding the musculoskeletal system. Circulation, motion, and sensation intact. Capillary refill < 3 seconds, Range of motion: intact in all extremities. Historical: - Allergies: 09:27 [place]; kc6 - PMHx: 09:38 breast cancer; Hypertensive disorder; kc6 - PSHx: 09:38 FRANCY mastectomy; kidney stent; kc6 - Immunization history:: Adult Immunizations not up to date. - Social history:: Smoking status: Patient denies any tobacco usage or history of. Screenin:29 [facility] ED Fall Risk Assessment (Adult) History of falling in the last 3 months, kc including since admission No falls in past 3 months (0 pts) Confusion or Disorientation No (0 pts) Intoxicated or Sedated No (0 pts) Impaired Gait No (0 pts) Mobility Assist Device Used No (0 pt) Altered Elimination No (0 pt) Score/Fall Risk Level 0 - 2 = Low Risk. Abuse screen: Denies threats or abuse. Denies injuries from another. Nutritional screening: No deficits noted. Tuberculosis screening: No symptoms or risk factors identified. Assessment: 09:29 Reassessment: please see triage assessment. [facility] 10:21 Reassessment: Patient appears in no apparent distress at this time. No changes from 6 previously documented assessment. Patient and/or family updated on plan of care and expected duration. Pain level reassessed. Patient is alert, oriented x 3, equal unlabored respirations, skin warm/dry/pink. 11:21 Reassessment: Patient appears in no apparent distress at this time. No changes from kc6 previously documented assessment. Patient and/or family updated on plan of care and expected duration. Pain level reassessed. Patient is alert, oriented x 3, equal unlabored respirations, skin warm/dry/pink. 12:16 Reassessment: Patient appears in no apparent distress at this time. No changes from kc6 previously documented assessment. Patient and/or family updated on plan of care and expected duration. Pain level reassessed. Patient is alert, oriented x 3, equal unlabored respirations, skin warm/dry/pink. 13:16 Reassessment: Patient appears in no apparent distress at this time. No changes from kc6 previously documented assessment. Patient and/or family updated on plan of care and expected duration. Pain level reassessed. Patient is alert, oriented x 3, equal unlabored respirations, skin warm/dry/pink. 14:16 Reassessment: Patient appears in no apparent distress at this time. No changes from kc6 previously documented assessment. Patient and/or family updated on plan of care and expected duration. Pain level reassessed. Patient is alert, oriented x 3, equal unlabored respirations, skin warm/dry/pink. 15:10 Reassessment: Patient appears in no apparent distress at this time. No changes from kc6 previously documented assessment. Patient and/or family updated on plan of care and expected duration. Pain level reassessed. Patient is alert, oriented x 3, equal unlabored respirations, skin warm/dry/pink. Vital Signs: 09:26 BP 173 / 96; Pulse 110; Resp 20 S; Pulse Ox 96% on 2 lpm NC; Weight 68.04 kg (R); kc6 Height 5 ft. 2 in. (R); Pain 0/10; 09:38 BP 152 / 98; Pulse 103; Resp 20 S; Pulse Ox 100% on 2 lpm NC; kc6 10:21 BP 140 / 77; Pulse 99; Resp 23 S; Pulse Ox 99% on 2 lpm NC; kc6 12:16 BP 135 / 94; Pulse 102; Resp 20 S; Pulse Ox 100% on 2 lpm NC; kc6 13:32 BP 159 / 100; Pulse 104; Resp 20; Pulse Ox 100% on 2 lpm NC; ph 15:10 BP 166 / 107; Pulse 100; Resp 18 S; Pulse Ox 100% on 2 lpm NC; kc6 16:30 BP 172 / 109; Pulse 102; Resp 22; Temp 98; Pulse Ox 100% on 2 lpm NC; ph 09:26 Body Mass Index 27.44 (68.04 kg, 157.48 cm) kc6 09:26 Pain Scale: Adult kc6 ED Course: 09:25 Patient arrived in ED. kc6 09:27 Triage completed. kc6 09:27 Trevor Cyr DO is Attending Physician. ms3 09:28 Justa Leblanc PA-C [facility]. ms3 09:28 Arm band placed on Patient placed in an exam room, on a stretcher, on oxygen, on ph cardiac catheterization technologist, on pulse oximetry. 09:29 Estrellita Moran, RN is Primary Nurse. kc6 09:29 Patient has correct armband on for positive identification. Bed in low position. Call kc6 light in reach. Side rails up X2. Client placed on continuous cardiac and pulse oximetry monitoring. NIBP monitoring applied. conveyor monitor on. 09:29 Oxygen administration via nasal cannula \T\ 2L/min. kc6 09:56 Inserted saline lock: 22 gauge in left antecubital area, using aseptic technique. Blood bc6 collected. 10:14 Chest Single View In Process Unspecified. EDMS 12:04 Note: pt states when flushing iv it hurts. iv was positional, took pt back to er for sj new iv. Radiology exam delayed due to IV insertion attempt and/or patient not having appropriate IV at this time. 13:48 Inserted saline lock: 20 gauge in left upper arm, using aseptic technique. ,using nj1 aseptic technique. Ultrasound guided. Catheter tip well visualized within vasculature during placement. 14:11 Note: pt was taken to ct and once there demanded to go back, she stated she needs an sj enema right now. She hasn't had a BM in 2 days.. Patient moved to CT. Patient moved back from CT. 15:48 Chest For PE Angio CT In Process Unspecified. EDMS 16:19 SARS RAPID Sent. kc6 16:19 Flu Sent. kc6 16:47 No provider procedures requiring assistance completed. Patient transferred, IV remains ph in place. Administered Medications: 09:55 Drug: Ativan IVP 1 mg IVP once Route: IVP; Site: left antecubital; kc6 10:21 Follow up: Response: No adverse reaction; Anxiety decreased; RASS: Drowsy (-1) kc6 14:24 Drug: Fleet Enema ND 133 ml ND once; may repeat once Route: ND; kc6 15:10 Follow up: Response: No adverse reaction kc6 15:35 Drug: Acetaminophen PO 1000 mg PO once Route: PO; ph 16:19 Follow up: Response: No adverse reaction; Pain is unchanged, physician notified kc6 16:19 Drug: Ketorolac IVP 10 mg 10 mg IVP once Route: IVP; Site: left upper arm; kc6 16:49 Follow up: Response: No adverse reaction ph Medication: 16:47 VIS not applicable for this client. ph Outcome: 15:23 ER care complete, transfer ordered by MD. [email or web address] 16:47 Transferred by ground EMS [facility]. to [facility], Transfer form completed. ph X-rays sent w/ patient. 16:47 Condition: stable 16:47 Instructed on the need for transfer, 16:49 Patient left the ED. ph Signatures: Dispatcher [employer] Janet Alcaraz Patricia RN RN ph Trevor Cyr DO DO ms3 Estrellita Moran RN RN kc6 Justa Leblanc, PALucieC PALucieC sb4 Mirella Murray6 Louise Quintero, RN RN nj1 Corrections: (The following items were deleted from the chart) 09:38 09:27 PMHx: Cancer; kc6 kc6 09:38 09:27 PSHx: FRANCY mesectomy; kc6 kc6 15:12 09:27 Derm: No signs and/or symptoms reported regarding the dermatologic system. Skin kc6 is intact, is healthy with good turgor, Skin is pink, warm \T\ dry. kc6
[2023-10-02] MEDS ORDERED: ACETAMINOPHEN 500 MG TAB ONE (15:44)
--- NOTE | 2023-10-02 16:24 | RAD REPORT ---
EXAM DESCRIPTION: CT - Chest For Pe Angio - 10/02/2023 3:46 pm CLINICAL HISTORY: Chest pain COMPARISON: September 04, 2023 TECHNIQUE: Dynamically enhanced axial 3 mm thick images of the chest were obtained during administra tion of 100 mL Isovue 370 IV contrast. Coronal and oblique reconstruction images were generated and r eviewed. Exam utilizes a protocol for optimal evaluation of pulmonary arterial tree. Maximum intensity projections 3D imaging was utilized All CT scans are performed using dose optimization technique as appropriate and may include automated exposure control or mA/KV adjustment according to patient size. FINDINGS: A pulmonary embolus is not seen. A thoracic aortic aneurysm is not noted. Small bilateral pleural effusions. A pericardial effusion is not seen. Small amount of ascites upper abdomen Bilateral pulmonary nodules. [id number] bilateral pulmonary opacities. 3.6 x 1.3 centimeter lobulated cystic mass right lower lobe abutting the diaphragm Rib and vertebral lesions IMPRESSION: Negative for a pulmonary embolism. Bilateral pulmonary nodules, rib and vertebral lesions probably metastases 3.6 x 1.3 centimeter lobulated cystic mass right lower lobe abutting the diaphragm probably a metasta sis [id number] bilateral pulmonary opacities may represent pneumonitis, infection or lymphangitic t umor spread
[2023-10-02] MEDS ORDERED: KETOROLAC 30 MG/ML INJ ONE (16:27)
[2023-10-02 16:33] LABS: SARS-CoV-2 Antigen Rapid Res Negative (Negative)
[2023-10-02 17:29] VITALS: O2SAT 100
[2023-10-02 17:33] VITALS: BP 172/109; TEMP 98
--- NOTE | 2023-10-09 15:37 | EKG ---
Test Date: 2023-10-02 Test Time: 09:23:30 Brass Pickler: ISAIAS MEASUREMENT RESULTS: Intervals: Rate: 110 IA: 134 QRSD: 74 QT: 318 QTc: 430 Harwood: P: 54 IA: 134 QRS: -10 T: 21 INTERPRETIVE STATEMENTS: Sinus tachycardia Otherwise normal ECG Compared to ECG 09/04/2023 02:26:32 Sinus rhythm no longer present Electronically Signed On 10-09-23 15:19:45 TELEVISION INSTALLER by Torito Olsen
== END 2023-10-02 16:49 ==
LOC: ER 09:24
DX: J96.21 Acute and chronic respiratory failure with hypoxia (principal); C50.919 Malignant neoplasm of unspecified site of unspecified female breast; C79.9 Secondary malignant neoplasm of unspecified site; I10 Essential (primary) hypertension; Z90.13 Acquired absence of bilateral breasts and nipples
CPT/HCPCS: 87040 ×2; 85025; 80048; 36415; 83735; 85610; 80076; 83605; 85730; 84484 ×2; 83690; 83880; 87804 ×2; 71275; 71045; 99285; 87811; Q9967